=== PATIENT | female | born 1955 | race Two or more races ===

== ENCOUNTER 2020-10-29 11:05 | Outpatient (REF) | payer MEDICARE, SELFPAY ==
[2020-10-29 12:24] LABS: Hematocrit 32.8 % (37-47); Hemoglobin 10.2 g/dl (12.0-16.0); Mean Corpuscular HGB Conc 31.1 g/dl (31.0-35.0); Mean Corpuscular Volume 93.2 fL (80-98); Mean Platelet Volume 11.1 fL (9.4-12.3); Platelet Count 216 X10*3/uL (160-400); Red Blood Count 3.52 X10*6/uL (4.20-5.50); Red Cell Distribution Width 13.8 % (11.0-16.0); White Blood Count 5.8 X10*3/uL (4.8-10.8)
[2020-10-29 12:42] LABS: Anion Gap 13 (12-20); Blood Urea Nitrogen 40 mg/dL (9-16); Calcium 8.5 mg/dL (8.4-10.2); Carbon Dioxide 23 mmol/L (22-29); Chloride 115 mmol/L (96-108); Estimated Glomerular Filt Rate 10; Magnesium 2.3 mg/dL (1.6-2.6); Phosphorus 5.4 mg/dL (2.7-4.5); Potassium 4.7 mmol/L (3.3-5.1); Sodium 146 mmol/L (135-145)
[2020-10-29 13:00] LABS: Vitamin D 25-OH Total 21.2 ng/mL (>30)
[2020-10-29 13:44] LABS: Glucose Urine UA NEG (NEG); Leukocyte Esterase Urine NEG (NEG); Nitrite Urine NEG (NEG); Urine Blood TRACE (NEG); Urine Ketones NEG (NEG); Urine Protein 3+ MG/DL (NEG-TRACE)
[2020-10-29 13:47] LABS: Appearance Urine CLOUDY; Color Urine YELLOW
[2020-10-29 14:19] LABS: Bacteria Urine 2+ /LPF; Hyaline Casts Urine 0-2 /LPF; Squamous Epithelial Cell Urine 4+ /LPF
[2020-10-29 15:11] LABS: Creatinine Urine 90.67 mg/dL; Protein/Creatinine Ratio, Ur 24.02 (<0.2); Total Protein Urine Random 2178 mg/dL (<12)
[2020-10-30 18:21] LABS: Calcium (PTHI) 8.7 mg/dL (8.6-10.4); PTHI 302 pg/mL (14-64)
== END 2020-10-29 11:06 | disposition home or self-care (01) ==
LOC: HO.LAB 11:05
PROVIDERS: PCP Family Medicine; Visit Provider Internal Medicine Nephrology
DX: E11.22 Type 2 diabetes mellitus with diabetic chronic kidney disease (principal); M18.4 Other bilateral secondary osteoarthritis of first carpometacarpal joints
CPT/HCPCS: 36415; 80051; 81001; 82040; 82043; 82306; 82310; 82565; 83735; 83970; 84100; 84156; 84520; 85027; 87086

== ENCOUNTER 2020-12-03 09:44 | Inpatient (IN) | payer MEDICARE, SELFPAY ==
[2020-12-03] VITALS (10 sets, daily range): BP systolic 130–198; BP diastolic 53–79; PULSE 62–72; RESP 15–24; TEMP 36.4–37.2; O2SAT 93–100; BMI 39.0
--- NOTE | ~2020-12-03 | US_ITS ---
EXAMINATION: US VENOUS WITH DOPPLER UPPER EXTREMITY, RIGHT CLINICAL INFORMATION: Ultrasound arterial/venous. Mapping for AV fistula creation COMPARISON: None TECHNIQUE: Ultrasound examination of the greater saphenous veins was performed bilaterally from the saphenofemoral junctions to the ankles. Measurements are given in centimeters. FINDINGS: Ultrasound examination of the right upper extremity superficial veins was performed from the upper arm to the wrist. Measurements are given in centimeters. FINDINGS: Right cephalic: Proximal upper arm: Depth 2 cm, diameter 0.2 cm Mid upper arm: Depth 1.8 cm, diameter 0.3 cm Distal upper arm: Depth 1.2 cm, diameter 0.3 cm Antecubital fossa: Depth 0.8 cm, diameter 0.2 cm Proximal lower arm: Depth 1.2 cm, diameter 0.2 cm Mid lower arm: Depth 0.7 cm, diameter 0.2 cm Wrist: Depth 0.2 cm, diameter 0.1 cm Right basilic: Proximal upper arm: Depth 1.7 cm, diameter 0.6 cm Mid upper arm: Depth 1.8 cm, diameter 0.5 cm Distal upper arm: Depth 1.6 cm, diameter 0.3 cm Left cephalic: Proximal upper arm: Depth 2 cm, diameter 0.2 cm Mid upper arm: Depth 1.1 cm, diameter 0.4 cm Distal upper arm: Depth 0.9 cm, diameter 0.2 cm Antecubital fossa: Depth 0.5 cm, diameter 0.3 cm Proximal lower arm: Depth 0.9 cm, diameter 0.1 cm Mid lower arm: Depth 0.9 cm, diameter 0.1 cm Wrist: Depth 0.3 cm, diameter 0.1 cm Left basilic: Proximal upper arm: Depth 2 cm, diameter 0.5 cm Mid upper arm: Depth 2 cm, diameter 0.4 cm Distal upper arm: Depth 1.6 cm, diameter 0.4 cm The superficial veins compress normally along their entire lengths. The bilateral brachial and radial arteries are normal in caliber without atherosclerotic plaque. These demonstrate normal waveforms and normal peak systolic velocities. The right radial artery measures 0.2 cm and is 1.4 cm From the skin in the proximal forearm, 1.5 cm from the skin and the mid forearm and 0.8 cm from the skin of the wrist. The left radial artery measures 0.2 cm and is 1.5 cm deep from the skin surface of the proximal forearm, 1.3 cm deep at the mid forearm and 1.1 cm deep at the wrist. US/US venous duplex UE BI IMPRESSION: Upper extremity superficial venous mapping, as above.
--- NOTE | ~2020-12-03 | XR_ITS ---
EXAMINATION: XR CHEST CLINICAL INFORMATION: Dyspnea COMPARISON: February 05, 2020 TECHNIQUE: AP portable view of the chest was obtained. FINDINGS: There is stable mild elevation of the left hemidiaphragm. The cardiopericardial silhouette is enlarged. No evidence of pulmonary edema. No pneumothorax or pleural effusion. Status post median sternotomy. XR/XR chest 1V IMPRESSION: No acute disease.
--- NOTE | ~2020-12-03 | US_ITS ---
EXAMINATION: US RETROPERITONEAL LIMITED (RENAL ONLY) CLINICAL INFORMATION: Acute kidney injury. COMPARISON: Bilateral renal ultrasound dated 04/26/2012. TECHNIQUE: Real-time imaging of the kidneys. FINDINGS: RIGHT KIDNEY: 11.2 x 4.5 x 5.1 cm (SAG x AP x TRV). The kidney is normal in size, contour, and echogenicity. Renal cortical thickness is normal. There is a 0.6 cm cyst in the upper pole. There is trace perinephric fluid adjacent to the lower pole. No renal calculi or hydronephrosis. LEFT KIDNEY: 11.8 x 5.2 x 4.9 cm (SAG x AP x TRV). The kidney is normal in size, contour, and echogenicity. Renal cortical thickness is normal. There are 3 cysts in the lower pole, largest measuring 1.2 x 1.4 x 1.2 cm. There is a small 1 mm echogenic density in the lower pole with twinkle artifact questionable for a small stone. No hydronephrosis. US/US renal BI IMPRESSION: Small bilateral renal cysts. Question small left lower pole renal stone.
--- NOTE | 2020-12-03 09:59 | ED.WEAKNESS ---
HPI - Weakness General Chief complaint: General Medical Stated complaint: WEAKNESS Time Seen by Provider: 12/03/20 09:59 Source: patient and old records reviewed Mode of arrival: ambulatory Limitations: no limitations History of Present Illness HPI Narrative: 65 yo female with hx of HTN, HPL, s/p CABG in 2018, DM, asthma, GERD here with chronic chest wall pressure since surgery, notes cough and dyspnea starting around 430AM this morning, chronic chest pressure is no different from her baseline MD Complaint: generalized weakness Onset (ago): hour(s) (6) Duration: constant Location: generalized Migration: none Severity: mild Quality: aching Relieving factors: none Exacerbating factors: none Context: history of similar Associated symptoms: chest pain and shortness of breath Related Data Home Medications Medication Instructions Recorded Confirmed amlodipine 10 mg tablet 10 mg PO DAILY 06/10/20 06/10/20 aspirin 81 mg tablet,delayed 81 mg PO DAILY 06/10/20 06/10/20 release atorvastatin 80 mg tablet 80 mg PO DAILY 06/10/20 06/10/20 carvedilol 6.25 mg tablet 6.25 mg PO BID 06/10/20 06/10/20 ezetimibe 10 mg tablet 10 mg PO DAILY 06/10/20 06/10/20 ferrous sulfate 325 mg (65 mg 325 mg PO DAILY 06/10/20 06/10/20 iron) tablet furosemide 40 mg tablet 40 mg PO BID 06/10/20 06/10/20 hydralazine 10 mg tablet 10 mg PO DAILY tab 06/10/20 06/10/20 insulin glargine 100 unit/mL See Rx Instructions SUBCUT QPM 06/10/20 06/10/20 subcutaneous solution pantoprazole 40 mg tablet,delayed 40 mg PO DAILY 06/10/20 06/10/20 release sertraline 100 mg tablet 150 mg PO DAILY tab 06/10/20 06/10/20 Allergies Allergy/AdvReac Type Severity Reaction Status Date / Time No Known Allergies Allergy Verified 06/10/20 15:35 Review of Systems Review of Systems: Constitutional : No Fever, No Chills ENT/Mouth : No sore throat, No Rhinorrhea, No Swallowing Difficulty Eyes: No Eye Pain, No Swelling, No Redness Cardiovascular : pos Chest Pain, positive SOB, No Orthopnea, positive Edema Respiratory : pos Cough, No Sputum, No Wheezing, positive dyspnea Gastrointestinal : No Nausea, No Vomiting, No Diarrhea, No abdominal Pain, No Hematochezia, No Melena Genitourinary : No Dysuria, No Urinary Frequency, No Hematuria Musculoskeletal : No joint pain, No Myalgias Skin : No Skin Lesions, No rash Neuro : No Weakness, No Numbness, No Dizziness, No Headache Psych : No Anxiety/Panic, No Depression Heme/Lymph: No Bruising, No Lymphadenopathy Endocrine : No Polyuria, No Polydipsia All other systems reviewed and are negative [facility] Past Medical History Attestation statement: The following information was validated with the patient. Medical History Asthma Atherosclerotic cardiovascular disease Chronic kidney disease Depression DJD (degenerative joint disease) Essential hypertension Hypercalcemia SHELIA (obstructive sleep apnea) Other and unspecified hyperlipidemia Type 2 diabetes mellitus with unspecified complications Surgical History History of coronary artery bypass graft (~2018) Family History Family History Father Cardiovascular disease Hypertension Mother Cardiovascular disease Hypertension Social History Social History Alcohol intake: never Smoking Status: Never smoker Use of substances other than those prescribed or required for medical reasons: No Advance Directives: Yes Advance Directives Information Provided: No Advance Directives on File: No Physical Exam Vital Signs: Vital Signs: Last Vital Signs Temp 98.3 F 12/03/20 10:01 Pulse 63 12/03/20 10:19 Resp 20 12/03/20 10:01 BP 167/78 H 12/03/20 10:01 Pulse Ox 100 12/03/20 10:01 Body Mass Index 39.0 Appearance: Alert. Oriented X3. No acute distress. Eyes: Pupils equal, round and reactive to light. ENT: Pharynx normal. Neck: Normal inspection. Neck supple. CVS: Normal heart rate and rhythm. Pulses normal. Chest: ttp along sternum Respiratory: No respiratory distress. Breath sounds decreased throughout Abdomen: Soft and nontender. Skin: Skin warm and dry. Normal skin color. Normal skin turgor. Extremities: mild 1+ pitting edema bilateral LE. No calf ttp Neuro: Oriented X 3. No motor deficit. No sensory deficit. Course Course Course Narrative: ?cardiorenal syndrome has elevated BNP but neg CXR, feels better with neb on lasix 40 BID in last month Cr 4.3 to 5.6 will admit for further management MDM - Weakness MDM Narrative Medical decision making narrative: 65 yo female with hx of HTN, HPL, s/p CABG in 2018, DM, asthma, GERD here with chronic chest wall pressure since surgery, notes cough and dyspnea starting around 430AM this morning, chronic chest pressure is no different from her baseline at this time will need labs, troponin x 1, CXR, COVID swab, seems MSK in nature, neb ordered for asthma dispo per results and findings. Lab Data Result diagrams: 12/03/20 10:26 12/03/20 10:26 Labs: Lab Results 12/03/20 12/03/20 12/03/20 Range/Units 10:23 10:26 10:26 WBC 5.5 (4.8-10.8) X10*3/uL Hgb 11.0 L (12.0-16.0) g/dl Hct 34.4 L (37-47) % Plt Count 199 (160-400) X10*3/uL PT (10.8-13.0) SEC INR (0.9-1.1) APTT (24.1-38.0) SEC Hold Blue Top Sodium 143 (135-145) mmol/L Potassium 4.9 (3.3-5.1) mmol/L Chloride 112 H (96-108) mmol/L Carbon Dioxide 20 L (22-29) mmol/L Anion Gap 16 (12-20) BUN 57 H (9-16) mg/dL Creatinine 5.60 H* (0.5-1.4) mg/dL Estim Creat Clear Calc 9.8 Estimated GFR 8 Random Glucose 150 H (60-115) mg/dL Calcium 9.0 (8.4-10.2) mg/dL Magnesium 2.3 (1.6-2.6) mg/dL Total Bilirubin 0.4 (0.0-1.0) mg/dL Direct Bilirubin < 0.2 (0.0-0.5) mg/dL AST 16 (5-31) U/L ALT 13 (0-31) U/L Alkaline Phosphatase 78 (39-117) U/L Troponin I High Sens (<3.5-17.0) ng/L B-Natriuretic Peptide (<100) pg/mL Total Protein 5.8 L (6.5-8.0) g/dL Albumin 3.3 L (3.5-5.0) g/dL Lipase 82 H (8-78) U/L COVID-19 ([facility]) Negative (Negative) COVID-19 Clin Com See Note 12/03/20 12/03/20 Range/Units 10:27 10:27 WBC (4.8-10.8) X10*3/uL Hgb (12.0-16.0) g/dl Hct (37-47) % Plt Count (160-400) X10*3/uL PT 12.3 (10.8-13.0) SEC INR 1.0 (0.9-1.1) APTT 37.5 (24.1-38.0) SEC Hold Blue Top SEE NOTE Sodium (135-145) mmol/L Potassium (3.3-5.1) mmol/L Chloride (96-108) mmol/L Carbon Dioxide (22-29) mmol/L Anion Gap (12-20) BUN (9-16) mg/dL Creatinine (0.5-1.4) mg/dL Estim Creat Clear Calc Estimated GFR Random Glucose (60-115) mg/dL Calcium (8.4-10.2) mg/dL Magnesium (1.6-2.6) mg/dL Total Bilirubin (0.0-1.0) mg/dL Direct Bilirubin (0.0-0.5) mg/dL AST (5-31) U/L ALT (0-31) U/L Alkaline Phosphatase (39-117) U/L Troponin I High Sens 9.0 (<3.5-17.0) ng/L B-Natriuretic Peptide 387 H (<100) pg/mL Total Protein (6.5-8.0) g/dL Albumin (3.5-5.0) g/dL Lipase (8-78) U/L COVID-19 ([facility]) (Negative) COVID-19 Clin Com ECG Data Attestation: I personally reviewed and interpreted this ECG as follows: ECG interpretation date: 05/06/21 ECG interpretation time: 10:30 Interpretation: Rate: 64 Rhythm: NSR [place]: normal Normal P waves. Normal GWEN. Normal QRS interval Poor R wave progression ST T wave : nonspecific, no JOSE LUIS qTC: normal prior studies: no acute ischemia The study has been interpreted contemporaneously by me. . Discharge Plan Discharge Clinical Impression: Acute bronchospasm, Acute on chronic kidney failure, Acute chest wall pain Patient Disposition: Admitted As Inpatient Prescriptions: No Action aspirin 81 mg tablet,delayed release (DR/EC) 81 mg PO DAILY RF: 0 carvedilol 6.25 mg tablet 6.25 mg PO BID RF: 0 amlodipine 10 mg tablet 10 mg PO DAILY RF: 0 atorvastatin 80 mg tablet 80 mg PO DAILY RF: 0 ezetimibe 10 mg tablet 10 mg PO DAILY RF: 0 furosemide 40 mg tablet 40 mg PO BID RF: 0 hydralazine 10 mg tablet 10 mg PO DAILY RF: 0 ferrous sulfate 325 mg (65 mg iron) tablet 325 mg PO DAILY RF: 0 pantoprazole 40 mg tablet,delayed release (DR/EC) 40 mg PO DAILY RF: 0 Lantus U-100 Insulin 100 unit/mL solution See Rx Instructions subcut QPM RF: 0 sertraline 100 mg tablet 150 mg PO DAILY RF: 0
--- NOTE | 2020-12-03 10:05 | ECG_ITS ---
Test Reason : SOB Blood Pressure : / mmHG Vent. Rate : 064 BPM Atrial Rate : 064 BPM P-R Int : 156 ms QRS Dur : 088 ms QT Int : 454 ms P-R-T Axes : 055 049 042 degrees QTc Int : 468 ms Normal sinus rhythm Septal infarct (cited on or before 28-NOV-2017) Abnormal ECG When compared with ECG of 24-JAN-2020 15:43, No significant change was found Referred By: Taylor Choi Electronically Signed By:JOSH STEWART
[2020-12-03] MEDS: Albuterol Sulfate (0.083%) 2.5 MG/3 ML VIAL.NEB INHALE (10:18)
[2020-12-03 10:34] LABS: Basophils Percent Auto 0.2 % (0-2); Eosinophils Percent Auto 0.2 % (0-4); Hematocrit 34.4 % (37-47); Imm Gran Abs Auto 0.02 X10*3/uL (0.00-0.03); Imm Gran Pct Auto 0.4 % (0.0-0.4); Lymphocytes Absolute Auto 0.6 X10*3/uL (1.2-4.9); Lymphocytes Percent Auto 11.6 % (20-40); MANUAL DIFF FLAG SCAN; Mean Corpuscular Hemoglobin 29.3 pg (27.0-33.0); Mean Corpuscular Volume 91.5 fL (80-98); Mean Platelet Volume 10.4 fL (9.4-12.3); Monocytes Absolute Auto 0.2 X10*3/uL (0.1-1.2); Monocytes Percent Auto 2.9 % (2-11); Neutrophils Absolute Auto 4.7 X10*3/uL (2.0-8.3); Neutrophils Percent Auto 84.7 % (45-73); Platelet Count 199 X10*3/uL (160-400); Red Blood Count 3.76 X10*6/uL (4.20-5.50); Red Cell Distribution Width 13.5 % (11.0-16.0); SCAN SMEAR FLAG 1; White Blood Count 5.5 X10*3/uL (4.8-10.8)
[2020-12-03 10:39] LABS: Prothrombin Time 12.3 SEC (10.8-13.0)
[2020-12-03 10:42] LABS: Partial Thromboplastin Time 37.5 SEC (24.1-38.0)
[2020-12-03 10:55] LABS: COVID-19 Test Negative (Negative); IDNOW Serial# 08D9AD1C
[2020-12-03] MEDS: Acetaminophen 325 MG TABLET 650 MG PO (10:55)
[2020-12-03 11:05] LABS: B Type Natriuretic Peptide 387 pg/mL (<100)
[2020-12-03 11:05] LABS: Alanine Aminotransferase 13 U/L (0-31); Albumin Level 3.3 g/dL (3.5-5.0); Alkaline Phosphatase 78 U/L (39-117); Anion Gap 16 (12-20); Aspartate Amino Transferase 16 U/L (5-31); Bilirubin Direct < 0.2 mg/dL (0.0-0.5); Bilirubin Total 0.4 mg/dL (0.0-1.0); Blood Urea Nitrogen 57 mg/dL (9-16); Carbon Dioxide 20 mmol/L (22-29); Chloride 112 mmol/L (96-108); Creatinine Clr Calc Pharmacy 9.8; Estimated Glomerular Filt Rate 8; Glucose Random 150 mg/dL (60-115); Magnesium 2.3 mg/dL (1.6-2.6); Potassium 4.9 mmol/L (3.3-5.1); Sodium 143 mmol/L (135-145); Total Protein 5.8 g/dL (6.5-8.0)
[2020-12-03 11:14] LABS: Lipase 82 U/L (8-78)
[2020-12-03 11:53] LABS: SLIDE REVIEW VERIFIED
--- NOTE | 2020-12-03 11:56 | PC.NURSE ---
maria antonia greco present with release manager. first encounter for this rn pt is resting comfortably. plus 3 pitting edema up to knees. ls clear but dim throughout. states she's had 3 years of cp and cough since cardiac surgery. nsr on monitor.
--- NOTE | 2020-12-03 14:32 | HP_ITS ---
DATE OF SERVICE: 12/03/2020 CHIEF COMPLAINT: Generalized weakness. HISTORY OF PRESENT ILLNESS: This is a 65-year-old female patient with past medical history significant for coronary artery disease, status post CABG in 2018. Post procedure, the patient has chronic left anterior chest pain, history of diabetes mellitus, asthma, GERD, and advanced chronic kidney disease, presented to [facility] due to symptoms of cough and shortness of breath that started at 4 a.m. The patient said she was shivering, sweating, and mumbling. Son could not understand what she is saying, therefore brought her to [facility]. She also gives history of generalized weakness, chronic leg edema that fluctuates. She denies any associated shortness of breath. She denies PND, no orthopnea, but she noticed that she gets tired easily with activity. She has been compliant on all of her medications. She was scheduled to see her senior architectural designer today, but she is not aware of the name. In the emergency room, the patient's workup revealed a BNP of 387, that is increased from 248. Her creatinine bumped from 4.3 to 5.6 in 1 month. Her hematocrit remains stable. Troponin of flat. Chest x-ray showed no acute infiltrate. The patient was treated in the ER with albuterol inhaler. At present, she is resting comfortably, offers no other complaints than her chronic chest pressure. PAST MEDICAL HISTORY: Significant for: 1. History of asthma. 2. History of atherosclerotic cardiovascular disease, status post CABG in 2018 after an episode of [id number]. 3. History of advanced chronic kidney disease. 4. History of depression. 5. History of DJD. 6. History of essential hypertension. 7. History of hypercalcemia. 8. History of obstructive sleep apnea. 9. Hyperlipidemia. 10. Type 2 diabetes mellitus. PAST SURGICAL HISTORY: Status post coronary artery bypass graft. SOCIAL HISTORY: The patient lives with son. Denies history of smoking, alcohol abuse, or illicit drug use. She ambulates with the help of a walker or a cane. FAMILY HISTORY: Father is , had hypertension and cardiovascular disease. Mother also had hypertension and cardiovascular disease. REVIEW OF SYSTEMS: CONSTITUTIONAL: She denies any fever. Episode of shivering and sweating resolved. CVS: She has chronic chest pain. Denies palpitations. RESPIRATORY: She has chronic cough for 3 years, nonproductive. Denies shortness of breath. GI: She denies nausea, vomiting, or diarrhea. NEURO: She complains of chronic dizziness not new. No other weakness, numbness, or speech impairment. Rest of all other system are reviewed and negative. ALLERGIES: THE PATIENT HAS NO KNOWN DRUG ALLERGIES. MEDICATIONS: On admission, amlodipine 10 mg daily, aspirin 81 mg daily, Lipitor 80 mg daily, Coreg 6.25 b.i.d., ezetimibe 10 mg daily, ferrous sulfate 325 daily, Lasix 40 mg b.i.d., hydralazine 10 mg daily, Lantus insulin, dosage not known; Protonix 40 mg daily, and Zoloft 150 mg daily. Her med reconciliation needs to be done. PHYSICAL EXAMINATION: GENERAL: The patient is resting comfortably, does not appear to be in acute distress. VITAL SIGNS: BP 162/67, respiratory rate of 24, she is afebrile, room air finger oximetry 98% on room air. HEENT: Pupils equal, round, and reactive to light and accommodation. NECK: Supple. No JVD. Face is symmetrical. Mild puffiness. LUNGS: Clear to auscultation bilaterally. No respiratory distress. No wheeze or rhonchi. HEART: Regular rate and rhythm. Midline scar with tenderness to palpation. ABDOMEN: Obese, soft, and nontender. Bowel sounds are audible. EXTREMITIES: Bilateral pitting edema up to both knees. NEURO EXAMINATION: Nonfocal. PSYCH: Appropriate affect. SKIN: No rashes. No asterixis noted. LABORATORY DATA: Hemoglobin 11, hematocrit 34.4, is stable since last check. Sodium 143, potassium 4.9, bicarb of 20, creatinine of 5.6, worsened from 4.3, November 18. Blood sugar 150. BNP 387; last year in December 2019, BNP was 248. Chest x-ray with no acute abnormality. EKG showed normal sinus rhythm, no significant change from recent EKG. ASSESSMENT AND PLAN: This is a 65-year-old female patient with advanced kidney disease, presented to [facility] with symptoms of shivering, sweating, mumbling since 4 a.m. with chronic history of chest pain and cough of 3 years duration. The patient's workup in the emergency room revealed worsening kidney disease and elevated BNP. PROBLEM LIST: 1. Progression of advanced chronic kidney disease. The patient will be admitted to intermediate care unit. There is no evidence of uremia. No hyperkalemia or acidosis. We will obtain nephrology consultation. Case discussed with Dr. James, who was supposed to see the patient in his office. He is planning on mapping the right upper extremity for a fistula. There is no evidence of acute congestive heart failure, elevated BNP likely due to kidney disease. 2. Hypertension. We will continue home medications including amlodipine and hydralazine. Follow BP closely. 3. Episode of shivering, sweating, and generalized weakness. There is no evidence of acute infection. The patient is afebrile with a normal WBC count. Urinalysis showed 2+ bacteria with few white cells with no nitrites, less likely acute urinary tract infection, likely symptoms related to worsening renal function. There is no evidence of asthma exacerbation. 4. Diabetes mellitus. The patient will be placed on diabetic diet, insulin sliding scale, and will resume home medications. 5. History of coronary artery disease, status post coronary artery bypass graft. The patient has no new or different chest pain than her baseline. Troponins are unremarkable. EKG with no acute ischemia, we will continue home medication. 6. Deep venous thrombosis prophylaxis. We will place the patient on heparin. 7. History of depression. will be continued on Zoloft. MD ANA M Alvarado/DEBBIE / [id number] MTDD
--- NOTE | 2020-12-03 14:32 | PC.NURSE ---
no change in assesment. resting queitly. nst on monitor. awaits admission. po fluids provided
[2020-12-03] MEDS: Heparin Sodium,Porcine 5,000 UNIT/ML VIAL 5000 UNIT SUBCUT ×2 (16:24→23:50)
[2020-12-03] MEDS: amLODIPine Besylate 10 MG TABLET PO (16:24)
[2020-12-03] MEDS: 0.9 % Sodium Chloride Flush 3 ML SYRINGE IVFLUSH ×2 (16:25→23:47)
--- NOTE | 2020-12-03 16:42 | PC.NURSE ---
rn to rn with sopia on IMC.
[2020-12-03 18:55] LABS: Glucose, Whole Blood 155 mg/dL (60-115)
--- NOTE | 2020-12-03 19:02 | PM.CNNEP ---
History of Present Illness Reason for Consult Consult date: 12/03/20 Reason for consult: WALLY Chief Complaint Chief complaint: Acute on CKD History of Present Illness Narrative: Asked to see PT fro WALLY on CKD with SCr rapidly worsening over the past 2 months from bsl SCr mid 2's to 4.3 last jg and now 5.6. She presents to ER felling acutely unwell with gen malaise and chills and ? confusion. Overall she is feeling better now. She denies taking NSAIDs. No GH/dysuria. No CP/SOB. No N/V/Diarrhea. Review of Systems Review of Systems Constitutional : No Fever, No Chills ENT/Mouth : No sore throat, No Rhinorrhea, No Swallowing Difficulty Eyes: No Eye Pain, No Swelling, No Redness Cardiovascular : pos Chest Pain, positive SOB, No Orthopnea, positive Edema Respiratory : pos Cough, No Sputum, No Wheezing, positive dyspnea Gastrointestinal : No Nausea, No Vomiting, No Diarrhea, No abdominal Pain, No Hematochezia, No Melena Genitourinary : No Dysuria, No Urinary Frequency, No Hematuria Musculoskeletal : No joint pain, No Myalgias Skin : No Skin Lesions, No rash Neuro : No Weakness, No Numbness, No Dizziness, No Headache Psych : No Anxiety/Panic, No Depression Heme/Lymph: No Bruising, No Lymphadenopathy Endocrine : No Polyuria, No Polydipsia All other systems reviewed and are negative [facility] Past Medical History Medical History (Updated 12/04/20 @ 01:08 by Yared Powell MD) Asthma Atherosclerotic cardiovascular disease Chronic kidney disease Depression DJD (degenerative joint disease) Essential hypertension Hypercalcemia SHELIA (obstructive sleep apnea) Other and unspecified hyperlipidemia Type 2 diabetes mellitus with unspecified complications Family History Family History Father Cardiovascular disease Hypertension Mother Cardiovascular disease Hypertension Surgical History Surgical History History of coronary artery bypass graft (~2018) Social History Social History Household Members Other:: with son Housing: Apartment Do you presently have visiting nurse or other home services: Yes Alcohol intake: never Smoking Status: Never smoker Use of substances other than those prescribed or required for medical reasons: No Currently Displaying Signs/Symptoms of Drug Intoxication Withdrawal: No Have you been hit, kicked, punched, or otherwise hurt by someone within the past year? If so, by whom?: No Do you feel safe in your current relationship?: No Current Relationship Is there a partner from a previous relationship who is making you feel unsafe now?: No Are you made to feel afraid or neglected: No Advance Directives: Yes Advance Directives Information Provided: No Advance Directives on File: No Advance Directives Date on File: 12/03/20 Do you have thoughts of harming others: None Do you have a plan to hurt others: No Plan Recently lost weight without trying: No Eating poorly because of decreased appetite: No Nutrition Risks: No Nutritional Risk Patient : No : No Poor oral hygiene: No Meds Allergies Allergy/AdvReac Type Severity Reaction Status Date / Time No Known Allergies Allergy Verified 12/03/20 17:02 Active Medications: Current Medications Generic Name Dose Route Start Last Admin Trade Name Freq PRN Reason Stop Dose Admin Acetaminophen 650 mg 12/03/20 12:17 Acetaminophen 325 Mg Tablet PO Q6H PRN Pain, Mild (Pain Scale 1-3) Amlodipine Besylate 10 mg 12/04/20 09:00 Amlodipine Besylate 10 Mg Tablet PO DAILY [facility] Protocol Ascorbic Acid 500 mg 12/03/20 21:00 12/03/20 21:42 Ascorbic Acid 500 Mg Tablet PO 500 mg BID ROSANA Administration Aspirin 81 mg 12/04/20 09:00 Aspirin Enteric Coated 81 Mg Tablet.Dr PO DAILY [facility] Calcitriol 0.25 mcg 12/04/20 09:00 Calcitriol 0.25 Mcg Capsule PO Q48H [facility] Carvedilol 6.25 mg 12/03/20 21:00 12/03/20 21:41 Carvedilol 6.25 Mg Tablet PO 6.25 mg BID [facility] Administration Protocol Heparin Sodium (Porcine) 5,000 unit 12/03/20 13:30 12/03/20 23:50 Heparin Sodium,Porcine 5,000 Unit/Ml Vial SUBCUT 5,000 unit Q12H ROSANA Administration Hydralazine HCl 10 mg 12/03/20 21:00 12/03/20 21:41 Hydralazine Hcl 10 Mg Tablet PO 10 mg BID ROSANA Administration Protocol Insulin Human Lispro 0 unit 12/03/20 16:30 12/03/20 21:42 Insulin Lispro 100 Unit/Ml 3 Ml Vial SUBCUT 4 unit QIDACHS [facility] Administration Protocol Melatonin 3 mg 12/03/20 21:00 12/03/20 21:41 Melatonin 3 Mg Tablet PO 3 mg BEDTIME [facility] Administration Montelukast Sodium 10 mg 12/03/20 21:00 12/03/20 21:42 Montelukast Sodium 10 Mg Tablet PO 10 mg BEDTIME [facility] Administration Omeprazole 40 mg 12/04/20 06:30 Omeprazole 40 Mg Capsule.Dr PO DAILY@0630 [facility] Ondansetron HCl 4 mg 12/03/20 12:17 Ondansetron Hcl 4 Mg/2 Ml Vial IVPUSH Q8H PRN Nausea and Vomiting Pharmacy Consult 1 each 12/03/20 11:16 Consult Rx Perform Med Rec MISCELLANE ONCE PRN Consult order Sertraline HCl 150 mg 12/04/20 09:00 Sertraline Hcl 50 Mg Tablet PO DAILY [facility] Sodium Chloride 3 ml 12/03/20 16:00 12/03/20 23:47 0.9 % Sodium Chloride Flush 3 Ml Syringe IVFLUSH 3 ml QSHIFT [facility] Administration Home Medications Medication Instructions Recorded Confirmed Last Taken Type amlodipine 10 mg tablet 10 mg PO DAILY 06/10/20 12/03/20 Unknown History aspirin 81 mg tablet,delayed 81 mg PO DAILY 06/10/20 12/03/20 Unknown History release atorvastatin 80 mg tablet 80 mg PO DAILY 06/10/20 12/03/20 Unknown History carvedilol 6.25 mg tablet 6.25 mg PO BID 06/10/20 12/03/20 Unknown History ferrous sulfate 325 mg (65 mg 325 mg PO BIDWM 06/10/20 12/03/20 Unknown History iron) tablet furosemide 40 mg tablet 80 mg PO BID 06/10/20 12/03/20 Unknown History hydralazine 10 mg tablet 10 mg PO BID tab 06/10/20 12/03/20 Unknown History insulin glargine 100 unit/mL See Rx Instructions SUBCUT QPM 06/10/20 12/03/20 Unknown History subcutaneous solution pantoprazole 40 mg tablet,delayed 40 mg PO DAILY 06/10/20 12/03/20 Unknown History release sertraline 100 mg tablet 150 mg PO DAILY tab 06/10/20 12/03/20 Unknown History ascorbic acid (vitamin C) [Vitamin 1 tab PO BID 12/03/20 12/03/20 Unknown History C] calcitriol 1 cap PO Q OTHER DAY 12/03/20 12/03/20 Unknown History melatonin 1 tab PO BEDTIME 12/03/20 12/03/20 Unknown History montelukast 1 tab PO BEDTIME 12/03/20 12/03/20 Unknown History Physical Exam Vital Signs: Last Vital Signs Temp 98 F 12/03/20 23:59 Pulse 62 12/03/20 23:59 Resp 15 12/03/20 23:59 BP 130/63 12/03/20 23:59 Pulse Ox 93 12/03/20 23:59 Body Mass Index 39.0 Results Lab Results Result Diagrams: 12/03/20 10:26 12/03/20 10:26 Lab results: Chemistry 12/03/20 10:26 Sodium 143 Potassium 4.9 Carbon Dioxide 20 L BUN 57 H Creatinine 5.60 H* Calcium 9.0 Hematology 12/03/20 10:26 WBC 5.5 Hgb 11.0 L Plt Count 199 Assessment and Plan (1) WALLY (acute kidney injury): Status: Acute 1. WALLY: incr SCr over the past 2 moinths is very concerning and needs full evaluation with sero/urine studies and renal U/S; her history and presentation do not suggests a s[ecific cause hence the need for furhter testing as the DDx incluide pre-renal intr-renal: AGN, AIN---note that back in October her UAC was markedly incr at 14 gm which raises concern for a new glom unjury superimposed on her mosy likel underlying DN ( bsl SCr 2's and 3 gms UAC in past) AIN vs prog DN/HTN renal dis as cause of prog loss of renal func 2. CKD 4: bsl SCr 2's with heavy Uprot most c/w DN REC: sero and urine studies and renal U/S; may need kidney Bx; protect non-dominat arm for fuyture AVF will follow sheri with team
[2020-12-03 21:12] LABS: Glucose, Whole Blood 247 mg/dL (60-115)
[2020-12-03] MEDS: hydrALAZINE HCl 10 MG TABLET PO (21:41)
[2020-12-03] MEDS: carvediloL 6.25 MG TABLET PO (21:41)
[2020-12-03] MEDS: Melatonin 3 MG TABLET PO (21:41)
[2020-12-03] MEDS: Insulin Lispro 100 UNIT/ML 3 ML VIAL SUBCUT (21:42)
[2020-12-03] MEDS: Montelukast Sodium 10 MG TABLET PO (21:42)
[2020-12-03] MEDS: Ascorbic Acid 500 MG TABLET PO (21:42)
[2020-12-04 04:00] VITALS: BP 120/66; PULSE 67; RESP 18; TEMP 37.1; O2SAT 96
[2020-12-04] MEDS: Omeprazole 40 MG CAPSULE.DR PO (06:02)
[2020-12-04 06:29] LABS: Anion Gap 15 (12-20); Blood Urea Nitrogen 56 mg/dL (9-16); Calcium 8.8 mg/dL (8.4-10.2); Carbon Dioxide 21 mmol/L (22-29); Chloride 112 mmol/L (96-108); Glucose Random 76 mg/dL (60-115); Potassium 4.6 mmol/L (3.3-5.1); Sodium 143 mmol/L (135-145)
[2020-12-04 06:42] LABS: Creatinine Clr Calc Pharmacy 9.8; Estimated Glomerular Filt Rate 8
[2020-12-04 06:46] LABS: HBS Num1 1.43 mIU/mL (0-7.99); HBc Num1 0.04 S/CO (0.00-0.79); HBsAGNum1 0.17 S/CO (0.00-0.99); Hepatitis B Core Antibody Nonreactive (Nonreactive); Hepatitis B Surface Antigen Negative (Negative); ~Hepatitis B Surface Antibody NONREACTIVE (Nonreactive)
[2020-12-04 06:47] LABS: ~HepC Num1 0.09 S/CO (0.00-0.79); ~Hepatitis C Antibody Nonreactive (Nonreactive)
[2020-12-04 06:49] LABS: Glucose Urine UA 100 MG/DL (NEG); Leukocyte Esterase Urine NEG (NEG); Nitrite Urine NEG (NEG); Urine Blood 1+ (NEG); Urine Ketones NEG (NEG); Urine Protein 3+ MG/DL (NEG-TRACE)
[2020-12-04 06:50] LABS: Appearance Urine CLEAR; Color Urine YELLOW
[2020-12-04 06:57] LABS: Squamous Epithelial Cell Urine TRACE /LPF
[2020-12-04 06:58] LABS: Waxy Casts Urine 0-2 /LPF
[2020-12-04 07:06] VITALS: BP 156/69; PULSE 59; RESP 18; TEMP 36.1; O2SAT 99
[2020-12-04 07:06] LABS: Glucose, Whole Blood 73 mg/dL (60-115)
[2020-12-04 07:28] LABS: Creatinine Urine 84.66 mg/dL
[2020-12-04 07:39] LABS: Total Protein Urine Random 1180 mg/dL (<12)
[2020-12-04] MEDS: Ascorbic Acid 500 MG TABLET PO (09:12)
[2020-12-04] MEDS: carvediloL 6.25 MG TABLET PO (09:12)
[2020-12-04] MEDS: hydrALAZINE HCl 10 MG TABLET PO (09:12)
[2020-12-04] MEDS: 0.9 % Sodium Chloride Flush 3 ML SYRINGE IVFLUSH (09:12)
[2020-12-04] MEDS: amLODIPine Besylate 10 MG TABLET PO (09:12)
[2020-12-04] MEDS: Sertraline HCL 50 MG TABLET 150 MG PO (09:12)
[2020-12-04] MEDS: calcitrioL 0.25 MCG CAPSULE PO (09:12)
--- NOTE | 2020-12-04 09:12 | MHC.CM.PN ---
CM met with Patient and addressed IMM with her, proving her with the original in [place]ic and placing a copy on the chart. CM also spoke with Daughter/HCP/Alice @ [phone], with Patient's approval to do so. Patient lives alone in her house and uses a walker to assist with mobility. Patient receives [facility] 2 hours/day and RN visits. Patient's goal is to return home and resume these services and CM has initiated and will follow for dc planning. PCP is Dr. Patricia Ingram.
--- NOTE | 2020-12-04 09:39 | P.CONGS_ITS ---
History of Present Illness Consult details Consult date: 12/04/20 Reason for consult: other (CRI) Narrative: Complex 65-year-old female presented to the hospital with acute kidney injury. Of note she has had chronic renal insufficiency and was actually scheduled to see me in the office yesterday for long-term dialysis access paper placement. She was admitted to the hospital. She now presents to us for vascular evaluation. Of note she does appear to be stable at the current time and upon discussion with Nephrology she will not require acute dialysis. In ad dition is noted that she is right-hand dominant. She has had no prior history of line placements AICD or defribrolators. Review of Systems Review of Systems: Yes all other systems are reviewed and are negative Constitutional: Constitutional: Reports no additional constitutional complaints ENT: Reports Normal hearing present Cardiovascular: Cardiovascular: Denies chest pain, Denies chest pain at rest, Denies chest pain with activity and Denies pedal edema Respiratory: Respiratory: Denies cough Gastrointestinal: Gastrointestinal: Denies abdominal pain Musculoskeletal: Musculoskeletal: Denies abnormal gait, Denies muscle cramps and Denies radiating pain into limb Integumentary/Breasts: Skin/Breast: Denies skin ulcer and Denies wounds Neurologic: Reports Normal hearing present and Denies abnormal gait Psychiatric: Psychiatric: Reports no additional psychiatric complaints [facility] Past Medical History Medical History (Updated 12/04/20 @ 09:46 by Denis James MD) Asthma Atherosclerotic cardiovascular disease Chronic kidney disease Depression DJD (degenerative joint disease) Essential hypertension Hypercalcemia SHELIA (obstructive sleep apnea) Other and unspecified hyperlipidemia Type 2 diabetes mellitus with unspecified complications Family History Family History Father Cardiovascular disease Hypertension Mother Cardiovascular disease Hypertension Surgical History Surgical History History of coronary artery bypass graft (~2018) Social History Social History Household Members Other:: with son Housing: Apartment Do you presently have visiting nurse or other home services: Yes Alcohol intake: never Smoking Status: Never smoker Use of substances other than those prescribed or required for medical reasons: No Currently Displaying Signs/Symptoms of Drug Intoxication Withdrawal: No Have you been hit, kicked, punched, or otherwise hurt by someone within the past year? If so, by whom?: No Do you feel safe in your current relationship?: No Current Relationship Is there a partner from a previous relationship who is making you feel unsafe now?: No Are you made to feel afraid or neglected: No Advance Directives: Yes Advance Directives Information Provided: No Advance Directives on File: No Advance Directives Date on File: 12/03/20 Do you have thoughts of harming others: None Do you have a plan to hurt others: No Plan Recently lost weight without trying: No Eating poorly because of decreased appetite: No Nutrition Risks: No Nutritional Risk Patient : No : No Poor oral hygiene: No service: No 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al status: disabled [employer] Allergies Allergy/AdvReac Type Severity Reaction Status Date / Time No Known Allergies Allergy Verified 12/03/20 17:02 Active Medications: Current Medications Generic Name Dose Route Start Last Admin Trade Name Freq PRN Reason Stop Dose Admin Acetaminophen 650 mg 12/03/20 12:17 Acetaminophen 325 Mg Tablet PO Q6H PRN Pain, Mild (Pain Scale 1-3) Amlodipine Besylate 10 mg 12/04/20 09:00 12/04/20 09:12 Amlodipine Besylate 10 Mg Tablet PO 10 mg DAILY ROSANA Administration Protocol Ascorbic Acid 500 mg 12/03/20 21:00 12/04/20 09:12 Ascorbic Acid 500 Mg Tablet PO 500 mg BID ROSANA Administration Calcitriol 0.25 mcg 12/04/20 09:00 12/04/20 09:12 Calcitriol 0.25 Mcg Capsule PO 0.25 mcg Q48H ROSANA Administration Carvedilol 6.25 mg 12/03/20 21:00 12/04/20 09:12 Carvedilol 6.25 Mg Tablet PO 6.25 mg BID ROSANA Administration Protocol Heparin Sodium (Porcine) 5,000 unit 12/03/20 13:30 12/03/20 23:50 Heparin Sodium,Porcine 5,000 Unit/Ml Vial SUBCUT 5,000 unit Q12H ROSANA Administration Hydralazine HCl 10 mg 12/03/20 21:00 12/04/20 09:12 Hydralazine Hcl 10 Mg Tablet PO 10 mg BID ROSANA Administration Protocol Insulin Human Lispro 0 unit 12/03/20 16:30 12/04/20 07:28 Insulin Lispro 100 Unit/Ml 3 Ml Vial SUBCUT [facility] Protocol Melatonin 3 mg 12/03/20 21:00 12/03/20 21:41 Melatonin 3 Mg Tablet PO 3 mg BEDTIME ROSANA Administration Montelukast Sodium 10 mg 12/03/20 21:00 12/03/20 21:42 Montelukast Sodium 10 Mg Tablet PO 10 mg BEDTIME ROASNA Administration Omeprazole 40 mg 12/04/20 06:30 12/04/20 06:02 Omeprazole 40 Mg Capsule.Dr PO 40 mg DAILY@0630 ROSANA Administration Ondansetron HCl 4 mg 12/03/20 12:17 Ondansetron Hcl 4 Mg/2 Ml Vial IVPUSH Q8H PRN Nausea and Vomiting Pharmacy Consult 1 each 12/03/20 11:16 Consult Rx Perform Med Rec MISCELLANE ONCE PRN Consult order Sertraline HCl 150 mg 12/04/20 09:00 12/04/20 09:12 Sertraline Hcl 50 Mg Tablet PO 150 mg DAILY ROSANA Administration Sodium Chloride 3 ml 12/03/20 16:00 12/04/20 09:12 0.9 % Sodium Chloride Flush 3 Ml Syringe IVFLUSH 3 ml QSHIFT ON LICENSE OF [facility] Administration Home Medications Medication Instructions Recorded Confirmed Last Taken Type amlodipine 10 mg tablet 10 mg PO DAILY 06/10/20 12/03/20 Unknown History aspirin 81 mg tablet,delayed 81 mg PO DAILY 06/10/20 12/03/20 Unknown History release atorvastatin 80 mg tablet 80 mg PO DAILY 06/10/20 12/03/20 Unknown History carvedilol 6.25 mg tablet 6.25 mg PO BID 06/10/20 12/03/20 Unknown History ferrous sulfate 325 mg (65 mg 325 mg PO BIDWM 06/10/20 12/03/20 Unknown History iron) tablet furosemide 40 mg tablet 80 mg PO BID 06/10/20 12/03/20 Unknown History hydralazine 10 mg tablet 10 mg PO BID tab 06/10/20 12/03/20 Unknown History insulin glargine 100 unit/mL See Rx Instructions SUBCUT QPM 06/10/20 12/03/20 Unknown History subcutaneous solution pantoprazole 40 mg tablet,delayed 40 mg PO DAILY 06/10/20 12/03/20 Unknown History release sertraline 100 mg tablet 150 mg PO DAILY tab 06/10/20 12/03/20 Unknown History ascorbic acid (vitamin C) [Vitamin 1 tab PO BID 12/03/20 12/03/20 Unknown Histor y C] calcitriol 1 cap PO Q OTHER DAY 12/03/20 12/03/20 Unknown History melatonin 1 tab PO BEDTIME 12/03/20 12/03/20 Unknown History montelukast 1 tab PO BEDTIME 12/03/20 12/03/20 Unknown History Physical Exam Vital Signs: Vital Signs: Last Vital Signs Temp 97 F 12/04/20 07:06 Pulse 59 12/04/20 07:06 Resp 18 12/04/20 07:06 BP 156/69 H 12/04/20 07:06 Pulse Ox 99 12/04/20 07:06 Body Mass Index 39.0 Const: General: cooperative, healthy appearing and comfortable Chema entation/consciousness: oriented to person, oriented to place and oriented to time HENMT: Head: Yes normal to inspection Neck: Neck: Yes normal visual inspection Carotids: no bruits Chest: Chest palpation & inspection: normal inspection of the chest Resp: Effort & Inspection: normal respiratory effort and able to speak in complete sentences Auscultation: clear to auscultation bilaterally, no crackles, no rales, no rhonchi and no wheezes Cardio: Rate: regular rate Rhythm: regular rhythm Heart sounds: S1 normal heart sound present and S2 normal heart sound present Bruits: no carotid bruits Peripheral pulses: brachial pulses present, radial pulses present, ulnar radial pulses present and other (IV in left antecubital fossa) GI: Inspection: Yes normal to inspection Skin: Wounds: no wounds Hair: normal Neuro: General: oriented to person, oriented to place and oriented to time Cranial nerves: Yes CN's II-XII intact bilaterally and Yes Normal hearing present Cognition (Neuro): normal cognition Motor exam (neuro): 5/5 motor strength present throughout Extrem: Other: venous exam: No significant superficial varicosities or spider telangiectasias, minimal edema General: No clubbing, No cyanosis and No edema Psych: Appearance: grossly normal Mental Status: mental status grossly normal Speech and movement: Normal speech and movement present Results Labs Result diagrams: 12/03/20 10:26 12/04/20 05:26 Labs: Abnormal lab results 12/03/20 12/03/20 12/03/20 Range/Units 10:26 10:26 10:27 RBC 3.76 L (4.20-5.50) X10*6/uL Hgb 11.0 L (12.0-16.0) g/dl Hct 34.4 L (37-47) % Neut % (Auto) 84.7 H (45-73) % Lymph % (Auto) 11.6 L (20-40) % Lymph # (Auto) 0.6 L (1.2-4.9) X10*3/uL Chloride 112 H (96-108) mmol/L Carbon Dioxide 20 L (22-29) mmol/L BUN 57 H (9-16) mg/dL Creatinine 5.60 H* (0.5-1.4) mg/dL POC Glucose (60-115) mg/dL Random Glucose 150 H (60-115) mg/dL B-Natriuretic Peptide 387 H (<100) pg/mL Total Protein 5.8 L (6.5-8.0) g/dL Albumin 3.3 L (3.5-5.0) g/dL Lipase 82 H (8-78) U/L Urine Protein (NEG-TRACE) MG/DL Urine Glucose (UA) (NEG) MG/DL Urine Blood (NEG) U Random Total Protein (<12) mg/dL 12/03/20 12/03/20 12/04/20 Range/Units 18:50 21:06 05:26 RBC (4.20-5.50) X10*6/uL Hgb (12.0-16.0) g/dl Hct (37-47) % Neut % (Auto) (45-73) % Lymph % (Auto) (20-40) % Lymph # (Auto) (1.2-4.9) X10*3/uL Chloride 112 H (96-108) mmol/L Carbon Dioxide 21 L (22-29) mmol/L BUN 56 H (9-16) mg/dL Creatinine 5.59 H* (0.5-1.4) mg/dL POC Glucose 155 H 247 H (60-115) mg/dL Random Glucose (60-115) mg/dL B-Natriuretic Peptide (<100) pg/mL Total Protein (6.5-8.0) g/dL Albumin (3.5-5.0) g/dL Lipase (8-78) U/L Urine Protein (NEG-TRACE) MG/DL Urine Glucose (UA) (NEG) MG/DL Urine Blood (NEG) U Random Total Protein (<12) mg/dL 12/04/20 12/04/20 Range/Units 06:15 06:15 RBC (4.20-5.50) X10*6/uL Hgb (12.0-16.0) g/dl Hct (37-47) % Neut % (Auto) (45-73) % Lymph % (Auto) (20-40) % Lymph # (Auto) (1.2-4.9) X10*3/uL Chloride (96-108) mmol/L Carbon Dioxide (22-29) mmol/L BUN (9-16) mg/dL Creatinine (0.5-1.4) mg/dL POC Glucose (60-115) mg/dL Random Glucose (60-115) mg/dL B-Natriuretic Peptide (<100) pg/mL Total Protein (6.5-8.0) g/dL Albumin (3.5-5.0) g/dL Lipase (8-78) U/L Urine Protein 3+ H (NEG-TRACE) MG/DL Urine Glucose (UA) 100 H (NEG) MG/DL Urine Blood 1+ H (NEG) U Random Total Protein 1180 H (<12) mg/dL Short CBC 12/03/20 Range/Units 10:26 WBC 5.5 (4.8-10.8) X10*3/uL Hgb 11.0 L (12.0-16.0) g/dl Hct 34.4 L (37-47) % Plt Count 199 (160-400) X10*3/uL BMP 12/03/20 12/04/20 10:26 05:26 Sodium 143 143 Potassium 4.9 4.6 Chloride 112 H 112 H Carbon Dioxide 20 L 21 L BUN 57 H 56 H Creatinine 5.60 H* 5.59 H* Calcium 9.0 8.8 Liver Function 12/03/20 Range/Units 10:26 Total Bilirubin 0.4 (0.0-1.0) mg/dL Direct Bilirubin < 0.2 (0.0-0.5) mg/dL AST 16 (5-31) U/L ALT 13 (0-31) U/L Alkaline Phosphatase 78 (39-117) U/L Albumin 3.3 L (3.5-5.0) g/dL Urine 12/04/20 Range/Units 06:15 Urine Color YELLOW Urine Appearance CLEAR Urine pH 6.0 (5.0-8.0) Ur Specific [place] 1.020 (1.005-1.025) Urine Protein 3+ H (NEG-TRACE) MG/DL Urine Glucose (UA) 100 H (NEG) MG/DL All other labs normal. Assessment and Plan (1) Chronic kidney disease: Status: Acute In short patient has chronic renal insufficiency. I have discussed the pathophysiology and the need for permanent access with bottom painter present. I will try to expedite vein mapping prior to discharge. Once she is discharged we can schedule her electively as an outpatient. As her renal insufficiency continues to progress will try to expedite this as soon as possible. Case was discussed with nephrology. Stable from my perspective for discharge. Thank you for allowing me to participate in her care. If there are any questions or concerns please do not hesitate to contact us.
--- NOTE | 2020-12-04 10:24 | PM.DS ---
DS: Providers Provider Date of Service: 12/04/20 Date of admission: 12/03/20 12:17 Primary care physician: Patricia Ingram MD Consults: 12/03/20 12:17 Consult to Nephrology Routine Consulting Provider: Yared Powell Reason for consultation: avni DS: Diagnosis Discharge Diagnosis (1) Chronic kidney disease: Status: Acute DS: Medications Discharge Medications Home Medications: Home Medications Medication Instructions Recorded Confirmed amlodipine 10 mg tablet 10 mg PO DAILY 06/10/20 12/03/20 aspirin 81 mg tablet,delayed 81 mg PO DAILY 06/10/20 12/03/20 release atorvastatin 80 mg tablet 80 mg PO DAILY 06/10/20 12/03/20 carvedilol 6.25 mg tablet 6.25 mg PO BID 06/10/20 12/03/20 ferrous sulfate 325 mg (65 mg 325 mg PO BIDWM 06/10/20 12/03/20 iron) tablet furosemide 40 mg tablet 80 mg PO BID 06/10/20 12/03/20 hydralazine 10 mg tablet 10 mg PO BID tab 06/10/20 12/03/20 insulin glargine 100 unit/mL See Rx Instructions SUBCUT QPM 06/10/20 12/03/20 subcutaneous solution pantoprazole 40 mg tablet,delayed 40 mg PO DAILY 06/10/20 12/03/20 release sertraline 100 mg tablet 150 mg PO DAILY tab 06/10/20 12/03/20 ascorbic acid (vitamin C) [Vitamin 1 tab PO BID 12/03/20 12/03/20 C] calcitriol 1 cap PO Q OTHER DAY 12/03/20 12/03/20 melatonin 1 tab PO BEDTIME 12/03/20 12/03/20 montelukast 1 tab PO BEDTIME 12/03/20 12/03/20 DS: Summary Hospital Course Hospital Course: CHIEF COMPLAINT: Generalized weakness. HISTORY OF PRESENT ILLNESS: This is a 65-year-old female patient with past medical history significant for coronary artery disease, status post CABG in 2018. Post procedure, the patient has chronic left anterior chest pain, history of diabetes mellitus, asthma, GERD, and advanced chronic kidney disease, presented to [facility] due to symptoms of cough and shortness of breath that started at 4 a.m. The patient said she was shivering, sweating, and mumbling. Son could not understand what she is saying, therefore brought her to [facility]. She also gives history of generalized weakness, chronic leg edema that fluctuates. She denies any associated shortness of breath. She denies PND, no orthopnea, but she noticed that she gets tired easily with activity. She has been compliant on all of her medications. 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 In the emergency room, the patient's workup revealed a BNP of 387, that is increased from 248. Her creatinine bumped from 4.3 to 5.6 in 1 month. Her hematocrit remains stable. Troponin of flat. Chest x-ray showed no acute infiltrate. The patient was treated in the ER with albuterol inhaler. At present, she is resting comfortably, offers no other complaints than her chronic chest pressure. PAST MEDICAL HISTORY: Significant for: 1. History of asthma. 2. History of atherosclerotic cardiovascular disease, status post CABG in 2018 after an episode of [id number] [place]. 3. History of advanced chronic kidney disease. 4. History of depression. 5. History of DJD. 6. History of essential hypertension. 7. History of hypercalcemia. 8. History of obstructive sleep apnea. 9. Hyperlipidemia. 10. Type 2 diabetes mellitus. PAST SURGICAL HISTORY: Status post coronary artery bypass graft. Hospital course: Patient presented because of an episode of shivering and was found to have acute on chronic renal failure. Her creatinine was at 5.6. It is of note that in December 2019 her renal function (Cr) was 2.34. On 10/29/2020 , creatinine was 4.31 and on December 03 when she presented to the emergency room creatinine was a 5.60 she was not complaining about any urinary symptoms.Nno urinary retention. She was admitted because of the worsening renal failure. nephrology consultation was requested with Dr. Powell . At this point it is unclear what is causing acute on chronic renal failure and may be progressing to end-stage renal disease althoug, there is no indication for dialysis at this time. She has had multiple serology lab work by Dr. Powell and will follow up on outpatient basis and may need biopsy of kidney. As far as the shivering episode, this has resolved, there is no source of infection, no fever, UA is unremarkable. Vital are stable, she will follow up with Dr. Powell next week. Time Spent with Patient Time attestation: Total time spent providing and/or coordinating discharge services: Discharge coordination time: Greater than 30 minutes Physical Exam Vital Signs: Vital Signs: Last Vital Signs Temp 97 F 12/04/20 07:06 Pulse 59 12/04/20 07:06 Resp 18 12/04/20 07:06 BP 156/69 H 12/04/20 07:06 Pulse Ox 99 12/04/20 07:06 Body Mass Index 39.0 General: AO X 3, no acute distress Resp: CTA bilateral CVS: S1,S2,RRR GI: +BS, NT, no distention Skin: No rash Neuro: motor grossly intact Psych: appropriate affect DS: Data Data Completed and Pending Labs on day of discharge: Laboratory Results - last 24 hr 12/03/20 12/03/20 12/03/20 10:23 10:26 10:26 WBC 5.5 RBC 3.76 L Hgb 11.0 L Hct 34.4 L MCV 91.5 MCH 29.3 MCHC 32.0 RDW 13.5 Plt Count 199 MPV 10.4 Immature Gran % (Auto) 0.4 Neut % (Auto) 84.7 H Lymph % (Auto) 11.6 L [place] % (Auto) 2.9 Eos % (Auto) 0.2 Baso % (Auto) 0.2 Lymph # (Auto) 0.6 L [place] # (Auto) 0.2 Eos # (Auto) 0.0 Baso # (Auto) 0.0 Abs Immat Gran (auto) 0.02 Absolute Neuts (auto) 4.7 Absolute Nucleated RBC 0.000 Nucleated RBC % (auto) 0.0 Smear Tech's Comments VERIFIED PT INR APTT Hold Blue Top Sodium 143 Potassium 4.9 Chloride 112 H Carbon Dioxide 20 L Anion Gap 16 BUN 57 H Creatinine 5.60 H* Estim Creat Clear Calc 9.8 Estimated GFR 8 POC Glucose Random Glucose 150 H Calcium 9.0 Magnesium 2.3 Total Bilirubin 0.4 Direct Bilirubin < 0.2 AST 16 ALT 13 Alkaline Phosphatase 78 Troponin I High Sens B-Natriuretic Peptide Total Protein 5.8 L Albumin 3.3 L Lipase 82 H Urine Color Urine Appearance Urine pH Ur Specific [place] Urine Protein Urine Glucose (UA) Urine Ketones Urine Blood Urine Nitrite Ur Leukocyte Esterase Urine RBC Urine WBC Ur Squamous Epith Cells Urine Bacteria Hyaline Casts Granular Casts Waxy Casts Urine Yeast U Random Total Protein Urine Creatinine Urine Microalbumin Microalb/Creat Ratio COVID-19 ([facility]) Negative COVID-19 Clin Com See Note Hep Bs Antigen Hep Bs Antibody Hep B Core Total Ab Hepatitis C Ab (EIA) 12/03/20 12/03/20 12/03/20 10:27 10:27 18:50 WBC RBC Hgb Hct MCV MCH MCHC RDW Plt Count MPV Immature Gran % (Auto) Neut % (Auto) Lymph % (Auto) [place] % (Auto) Eos % (Auto) Baso % (Auto) Lymph # (Auto) [place] # (Auto) Eos # (Auto) Baso # (Auto) Abs Immat Gran (auto) Absolute Neuts (auto) Absolute Nucleated RBC Nucleated RBC % (auto) Smear Tech's Comments PT 12.3 INR 1.0 APTT 37.5 Hold Blue Top SEE NOTE Sodium Potassium Chloride Carbon Dioxide Anion Gap BUN Creatinine Estim Creat Clear Calc Estimated GFR POC Glucose 155 H Random Glucose Calcium Magnesium Total Bilirubin Direct Bilirubin AST ALT Alkaline Phosphatase Troponin I High Sens 9.0 B-Natriuretic Peptide 387 H Total Protein Albumin Lipase Urine Color Urine Appearance Urine pH Ur Specific [place] Urine Protein Urine Glucose (UA) Urine Ketones Urine Blood Urine Nitrite Ur Leukocyte Esterase Urine RBC Urine WBC Ur Squamous Epith Cells Urine Bacteria Hyaline Casts Granular Casts Waxy Casts Urine Yeast U Random Total Protein Urine Creatinine Urine Microalbumin Microalb/Creat Ratio COVID-19 ([facility]) COVID-19 Clin Com Hep Bs Antigen Hep Bs Antibody Hep B Core Total Ab Hepatitis C Ab (EIA) 12/03/20 12/04/20 12/04/20 21:06 05:26 05:26 WBC RBC Hgb Hct MCV MCH MCHC RDW Plt Count MPV Immature Gran % (Auto) Neut % (Auto) Lymph % (Auto) [place] % (Auto) Eos % (Auto) Baso % (Auto) Lymph # (Auto) [place] # (Auto) Eos # (Auto) Baso # (Auto) Abs Immat Gran (auto) Absolute Neuts (auto) Absolute Nucleated RBC Nucleated RBC % (auto) Smear Tech's Comments PT INR APTT Hold Blue Top Sodium 143 Potassium 4.6 Chloride 112 H Carbon Dioxide 21 L Anion Gap 15 BUN 56 H Creatinine 5.59 H* Estim Creat Clear Calc 9.8 Estimated GFR 8 POC Glucose 247 H Random Glucose 76 D Calcium 8.8 Magnesium Total Bilirubin Direct Bilirubin AST ALT Alkaline Phosphatase Troponin I High Sens B-Natriuretic Peptide Total Protein Albumin Lipase Urine Color Urine Appearance Urine pH Ur Specific [place] Urine Protein Urine Glucose (UA) Urine Ketones Urine Blood Urine Nitrite Ur Leukocyte Esterase Urine RBC Urine WBC Ur Squamous Epith Cells Urine Bacteria Hyaline Casts Granular Casts Waxy Casts Urine Yeast U Random Total Protein Urine Creatinine Urine Microalbumin Microalb/Creat Ratio COVID-19 ([facility]) COVID-19 Clin Com Hep Bs Antigen Negative Hep Bs Antibody NONREACTIVE Hep B Core Total Ab Nonreactive Hepatitis C Ab (EIA) Nonreactive 12/04/20 12/04/20 12/04/20 06:15 06:15 07:01 WBC RBC Hgb Hct MCV MCH MCHC RDW Plt Count MPV Immature Gran % (Auto) Neut % (Auto) Lymph % (Auto) [place] % (Auto) Eos % (Auto) Baso % (Auto) Lymph # (Auto) [place] # (Auto) Eos # (Auto) Baso # (Auto) Abs Immat Gran (auto) Absolute Neuts (auto) Absolute Nucleated RBC Nucleated RBC % (auto) Smear Tech's Comments PT INR APTT Hold Blue Top Sodium Potassium Chloride Carbon Dioxide Anion Gap BUN Creatinine Estim Creat Clear Calc Estimated GFR POC Glucose 73 Random Glucose Calcium Magnesium Total Bilirubin Direct Bilirubin AST ALT Alkaline Phosphatase Troponin I High Sens B-Natriuretic Peptide Total Protein Albumin Lipase Urine Color YELLOW Urine Appearance CLEAR Urine pH 6.0 Ur Specific [place] 1.020 Urine Protein 3+ H Urine Glucose (UA) 100 H Urine Ketones NEG Urine Blood 1+ H Urine Nitrite NEG Ur Leukocyte Esterase NEG Urine RBC 1-4 Urine WBC 1-4 Ur Squamous Epith Cells TRACE Urine Bacteria NONE Hyaline Casts 1-4 Granular Casts 5-9 Waxy Casts 0-2 Urine Yeast TRACE U Random Total Protein 1180 H Urine Creatinine 84.66 Urine Microalbumin 7476.0 Microalb/Creat Ratio 8830.6 COVID-19 ([facility]) COVID-19 Clin Com Hep Bs Antigen Hep Bs Antibody Hep B Core Total Ab Hepatitis C Ab (EIA) Discharge Plan Discharge Anticipated Discharge Date/Time: 12/04/20 10:15 Patient Disposition: Home, Self-Care Discharge Diagnosis: Acute on chronic renal failure Referrals: Patricia Ingram MD [Primary Care Provider] - 1 Week Yared Powell MD [Physician] - 1 Week (Follow up on renal failure) Discharge Medications: Continued ascorbic acid (vitamin C) [Vitamin C] 500 mg tablet 1 tab PO BID RF: 0 montelukast 10 mg tablet 1 tab PO BEDTIME RF: 0 calcitriol 0.25 mcg capsule 1 cap PO Q OTHER DAY RF: 0 melatonin 5 mg tablet 1 tab PO BEDTIME RF: 0 aspirin 81 mg tablet,delayed release (DR/EC) 81 mg PO DAILY RF: 0 carvedilol 6.25 mg tablet 6.25 mg PO BID RF: 0 amlodipine 10 mg tablet 10 mg PO DAILY RF: 0 atorvastatin 80 mg tablet 80 mg PO DAILY RF: 0 furosemide 40 mg tablet 80 mg PO BID RF: 0 hydralazine 10 mg tablet 10 mg PO BID RF: 0 ferrous sulfate 325 mg (65 mg iron) tablet 325 mg PO BIDWM RF: 0 pantoprazole 40 mg tablet,delayed release (DR/EC) 40 mg PO DAILY RF: 0 Lantus U-100 Insulin 100 unit/mL solution See Rx Instructions subcut QPM RF: 0 sertraline 100 mg tablet 150 mg PO DAILY RF: 0 Discharge Orders: Discharge Order (Routine); Ordered 12/04/20 Ordered By: Blaze Molina Diet: advance to usual diet Activity on Discharge: As tolerated Stand Alone Forms: Patient Portal Discharge page Care Plan Goals: Full work up for renal failure Health Concerns: Progress renal failure Plan of Treatment: Follow up with Dr. Powell next week Assessment: Acute on chronic renal failure
--- NOTE | 2020-12-04 11:01 | MHC.CM.PN ---
Patient has been medically cleared for dc to home today, no skilled services ordered but [facility] services should resume as before. IMM addressed this morning.
[2020-12-04 11:02] VITALS: BP 154/74; PULSE 64; RESP 18; TEMP 36.1; O2SAT 99
[2020-12-04 11:06] LABS: Glucose, Whole Blood 149 mg/dL (60-115)
--- NOTE | 2020-12-04 18:38 | P.PNNP_ITS ---
Subjective Subjective Date of Service: 12/04/20 Principal diagnosis: wally Interval history: seen and exmained. Events noted Physical Exam Vital Signs: Vital Signs: Last Vital Signs Temp 97 F 12/04/20 11:02 Pulse 64 12/04/20 11:02 Resp 18 12/04/20 11:02 BP 154/74 H 12/04/20 11:02 Pulse Ox 99 12/04/20 11:02 Body Mass Index 39.0 Const: General: cooperative, healthy appearing and comfortable Orientation/consciousness: oriented to person, oriented to place and oriented to time HENMT: Head: Yes normal to inspection Neck: Neck: Yes normal visual inspection Carotids: no bruits Chest: Chest palpation & inspection: normal inspection of the chest Resp: Effort & Inspection: normal respiratory effort and able to speak in complete sentences Auscultation: clear to auscultation bilaterally, no crackles, no rales, no rhonchi and no wheezes Cardio: Rate: regular rate Rhythm: regular rhythm Heart sounds: S1 normal heart sound present and S2 normal heart sound present Bruits: no carotid bruits Peripheral pulses: brachial pulses present, radial pulses present, ulnar radial pulses present and other (IV in left antecubital fossa) GI: Inspection: Yes normal to inspection Skin: Wounds: no wounds Hair: normal Neuro: General: oriented to person, oriented to place and oriented to time Cranial nerves: Yes CN's II-XII intact bilaterally and Yes Normal hearing pre sent Cognition (Neuro): normal cognition Motor exam (neuro): 5/5 motor strength present throughout Extrem: Other: venous exam: No significant superficial varicosities or spider telangiectasias, minimal edema General: No clubbing, No cyanosis and No edema Psych: Appearance: grossly normal Mental Status: mental status grossly normal Speech and movement: Normal speech and movement present Objective Data Labs CBC & Chem 7: 12/03/20 10:26 12/04/20 05:26 Labs: Laboratory Results - last 24 hr 12/03/20 12/03/20 12/04/20 18:50 21:06 05:26 Sodium 143 Potassium 4.6 Chloride 112 H Carbon Dioxide 21 L Anion Gap 15 BUN 56 H Creatinine 5.59 H* Estim Creat Clear Calc 9.8 Estimated GFR 8 POC Glucose 155 H 247 H Random Glucose 76 D Calcium 8.8 Urine Color Urine Appearance Urine pH Ur Specific [place] Urine Protein Urine Glucose (UA) Urine Ketones Urine Blood Urine Nitrite Ur Leukocyte Esterase Urine RBC Urine WBC Ur Squamous Epith Cells Urine Bacteria Hyaline Casts Granular Casts Waxy Casts Urine Yeast U Random Total Protein Urine Creatinine Urine Microalbumin Microalb/Creat Ratio Hep Bs Antigen Hep Bs Antibody Hep B Core Total Ab Hepatitis C Ab (EIA) 12/04/20 12/04/20 12/04/20 05:26 06:15 06:15 Sodium Potassium Chloride Carbon Dioxide Anion Gap BUN Creatinine Estim Creat Clear Calc Estimated GFR POC Glucose Random Glucose Calcium Urine Color YELLOW Urine Appearance CLEAR Urine pH 6.0 Ur Specific [place] 1.020 Urine Protein 3+ H Urine Glucose (UA) 100 H Urine Ketones NEG Urine Blood 1+ H Urine Nitrite NEG Ur Leukocyte Esterase NEG Urine RBC 1-4 Urine WBC 1-4 Ur Squamous Epith Cells TRACE Urine Bacteria NONE Hyaline Casts 1-4 Granular Casts 5-9 Waxy Casts 0-2 Urine Yeast TRACE U Random Total Protein 1180 H Urine Creatinine 84.66 Urine Microalbumin 7476.0 Microalb/Creat Ratio 8830.6 Hep Bs Antigen Negative Hep Bs Antibody NONREACTIVE Hep B Core Total Ab Nonreactive Hepatitis C Ab (EIA) Nonreactive 12/04/20 12/04/20 07:01 11:01 Sodium Potassium Chloride Carbon Dioxide Anion Gap BUN Creatinine Estim Creat Clear Calc Estimated GFR POC Glucose 73 149 H Random Glucose Calcium Urine Color Urine Appearance Urine pH Ur Specific [place] Urine Protein Urine Glucose (UA) Urine Ketones Urine Blood Urine Nitrite Ur Leukocyte Esterase Urine RBC Urine WBC Ur Squamous Epith Cells Urine Bacteria Hyaline Casts Granular Casts Waxy Casts Urine Yeast U Random Total Protein Urine Creatinine Urine Microalbumin Microalb/Creat Ratio Hep Bs Antigen Hep Bs Antibody Hep B Core Total Ab Hepatitis C Ab (EIA) Assessment & Plan Assessment and plan (1) WALLY (acute kidney injury): Status: Acute Assessment and Plan: 1. WALLY: incr SCr over the past 2 months is very concerning and needs full evaluation with sero/urine studies and renal U/S; her history and presentation do not suggests a specific cause hence the need for furhter testing as the DDx incluide pre-renal intr-renal: AGN, AIN---note that back in October her UAC was markedly incr at 14 gm which raises concern for a new glom unjury superimposed on her mosy likel underlying DN ( bsl SCr 2's and 3 gms UAC in past) AIN vs prog DN/HTN renal dis as cause of prog loss of renal func U/S noted --no hydro; good kidney size 2. CKD 4: bsl SCr 2's with heavy Uprot most c/w DN REC: sero and urine studies ordered;; will need to strongly consider kidney Bx; protect non-dominat arm for fuyture AVF; avoid NToxins ok to d/c home with clsoe f/u re: possible kidney Bx and prep for dialysis will follow sheri with team Time Spent With Patient Time: Total time spent is greater than 50% in coordination of care (as doc umented) at patient's floor/unit and/or counseling patient:
[2020-12-05 12:22] LABS: Myeloperoxidase Antibody <1.0 AI; Proteinase 3 PR3 Antibodies <1.0 AI
[2020-12-07 13:16] LABS: Calcium (PTHI) 8.9 mg/dL (8.6-10.4); PTHI 324 pg/mL (14-64)
[2020-12-07 14:06] LABS: IgA 237 mg/dL (70-320); IgG 596 mg/dL (600-1540); IgM 98 mg/dL (50-300)
[2020-12-14 03:11] LABS: Kappa, Serum 159 mg/dL (176-443); Lambda, Serum 106 mg/dL (91-240)
== END 2020-12-04 14:09 | disposition home or self-care (01) | DRG 684 ==
LOC: HO.ED 11:28 → HO.EDOVER 12:34 → HO.IMC 15:59
PROVIDERS: Internal Medicine Nephrology; Admitting Provider Hospitalist; Emergency Provider Emergency Medicine; PCP Family Medicine; Visit Provider Internal Medicine
DX: N17.9 Acute kidney failure, unspecified (principal); K21.9 Gastro-esophageal reflux disease without esophagitis; I25.2 Old myocardial infarction; I12.9 Hypertensive chronic kidney disease with stage 1 through stage 4 chronic kidney disease, or unspecified chronic kidney disease; E11.22 Type 2 diabetes mellitus with diabetic chronic kidney disease; N18.4 Chronic kidney disease, stage 4 (severe); I25.10 Atherosclerotic heart disease of native coronary artery without angina pectoris; Z95.1 Presence of aortocoronary bypass graft; Z20.822 Contact with and (suspected) exposure to COVID-19; Z79.4 Long term (current) use of insulin; Z79.82 Long term (current) use of aspirin; Z79.899 Other long term (current) drug therapy
CPT/HCPCS: 36415; 71045; 76775; 80048; 80076; 81001; 82043; 82784; 82947; 83690; 83735; 83880; 83883; 83970; 84156; 84484; 85025; 85610; 85730; 86021; 86334; 86704; 86706; 86803; 87340; 87635; 93005; 93970; 94640; 96374; 99285

== ENCOUNTER 2020-12-14 14:15 | Outpatient (REF) | payer MEDICARE, SELFPAY ==
[2020-12-14 15:20] LABS: Hematocrit 34.9 % (37-47); Hemoglobin 11.3 g/dl (12.0-16.0); Mean Corpuscular HGB Conc 32.4 g/dl (31.0-35.0); Mean Corpuscular Hemoglobin 29.4 pg (27.0-33.0); Mean Corpuscular Volume 90.6 fL (80-98); Mean Platelet Volume 10.7 fL (9.4-12.3); Platelet Count 222 X10*3/uL (160-400); Red Blood Count 3.85 X10*6/uL (4.20-5.50); Red Cell Distribution Width 13.2 % (11.0-16.0); White Blood Count 5.5 X10*3/uL (4.8-10.8)
[2020-12-14 15:32] LABS: Glucose Urine UA NEG (NEG); Leukocyte Esterase Urine NEG (NEG); Nitrite Urine NEG (NEG); Urine Blood TRACE (NEG); Urine Ketones NEG (NEG); Urine Protein 3+ MG/DL (NEG-TRACE)
[2020-12-14 15:43] LABS: Appearance Urine CLEAR; Color Urine YELLOW
[2020-12-14 15:44] LABS: Albumin Level 3.3 g/dL (3.5-5.0); Calcium 9.2 mg/dL (8.4-10.2); Magnesium 2.3 mg/dL (1.6-2.6); Phosphorus 5.5 mg/dL (2.7-4.5)
[2020-12-14 16:06] LABS: Vitamin D 25-OH Total 20.8 ng/mL (>30)
[2020-12-14 16:33] LABS: Bacteria Urine 2+ /LPF; RBC Urine 0-2 /HPF (0); Squamous Epithelial Cell Urine 3+ /LPF
[2020-12-14 16:51] LABS: Total Protein Urine Random 1618 mg/dL (<12)
[2020-12-15 13:12] LABS: Calcium (PTHI) 9.1 mg/dL (8.6-10.4); PTHI 280 pg/mL (14-64)
== END 2020-12-14 14:16 | disposition home or self-care (01) ==
LOC: HO.LAB 14:15
PROVIDERS: PCP Family Medicine; Visit Provider Internal Medicine Nephrology
DX: R80.1 Persistent proteinuria, unspecified (principal); N25.0 Renal osteodystrophy; E11.22 Type 2 diabetes mellitus with diabetic chronic kidney disease; N18.4 Chronic kidney disease, stage 4 (severe)
CPT/HCPCS: 36415; 81001; 82040; 82306; 82310; 83735; 83970; 84100; 84156; 85027; 87086

== ENCOUNTER → 2021-03-23 11:06 | Outpatient (BNVA) | payer MEDICARE, SELFPAY | PROVIDERS: PCP Family Medicine; Referring Provider Family Medicine; Visit Provider Psychiatry & Neurology Neurology | DX: G47.33 Obstructive sleep apnea (adult) (pediatric) (principal) | CPT/HCPCS: 99202 ==

== ENCOUNTER → 2021-04-07 13:55 | Outpatient (BNVA) | payer MEDICARE, SELFPAY | PROVIDERS: PCP Family Medicine; Referring Provider Family Medicine; Visit Provider Internal Medicine | DX: R07.89 Other chest pain (principal); I25.810 Atherosclerosis of coronary artery bypass graft(s) without angina pectoris; E11.22 Type 2 diabetes mellitus with diabetic chronic kidney disease; I13.10 Hypertensive heart and chronic kidney disease without heart failure, with stage 1 through stage 4 chronic kidney disease, or unspecified chronic kidney disease; N18.9 Chronic kidney disease, unspecified; G47.33 Obstructive sleep apnea (adult) (pediatric); E83.52 Hypercalcemia; E78.5 Hyperlipidemia, unspecified; Z95.1 Presence of aortocoronary bypass graft; Z79.82 Long term (current) use of aspirin; Z79.4 Long term (current) use of insulin; Z79.899 Other long term (current) drug therapy | CPT/HCPCS: 99212 ==

== ENCOUNTER → 2021-04-27 15:47 | Outpatient (REF) | payer MEDICARE, SELFPAY | LOC: HO.SL 15:47 | PROVIDERS: PCP Family Medicine; Visit Provider Psychiatry & Neurology Neurology | DX: G47.33 Obstructive sleep apnea (adult) (pediatric) (principal) | CPT/HCPCS: 95806 ==

== ENCOUNTER → 2021-05-06 13:39 | Outpatient (BNVA) | payer MEDICARE, SELFPAY | PROVIDERS: PCP Family Medicine; Referring Provider Family Medicine; Visit Provider Nurse Practitioner Family | DX: I25.10 Atherosclerotic heart disease of native coronary artery without angina pectoris (principal); N18.9 Chronic kidney disease, unspecified; R60.9 Edema, unspecified; E78.5 Hyperlipidemia, unspecified; Z95.1 Presence of aortocoronary bypass graft | CPT/HCPCS: 99212 ==

== ENCOUNTER 2021-07-10 23:14 | Inpatient (IN) | payer MEDICARE, SELFPAY ==
--- NOTE | ~2021-07-10 | CT_ITS ---
EXAM: NONCONTRAST CT OF THE CHEST; NONCONTRAST CT OF THE ABDOMEN AND PELVIS INDICATION: Shortness of breath, right-sided chest pain COMPARISON: Chest x-ray 07/01/2021 TECHNIQUE: No IV contrast was utilized. Multidetector helical imaging was performed through the chest, abdomen, and pelvis. Coronal and sagittal reformatted images were created at the technologist workstation. DOSE LOWERING TECHNIQUES: This CT examination was performed using dose optimization techniques as appropriate, variously including the following: - Automated exposure control - Adjustment of mA and/or kV according to patient size (this includes techniques or standardized protocols for targeted exams were dose is matched to indication/reason for exam; i.e. extremities or head) - Use of iterative reconstruction technique DLP: 827 mGy-cm FINDINGS: Chest: Detailed assessment of the lung parenchyma is limited due to respiratory motion artifact. No regions of consolidation bilaterally. Linear atelectasis is noted in the lingula. No pneumothorax or pleural effusion. Visualized thyroid gland is grossly unremarkable. No discrete mediastinal lymphadenopathy is seen. Patient appears status post CABG. There is mild cardiomegaly without pericardial effusion. Scattered calcification is noted along the aorta. No axillary lymphadenopathy is present. Status post sternotomy. Multilevel degenerative endplate changes are noted in the thoracic spine. Abdomen/Pelvis: Limited assessment some regions due to motion artifact. The liver is homogeneous in attenuation without intrahepatic biliary ductal dilatation. The gallbladder is unremarkable. The unenhanced spleen, pancreas, and adrenal glands are within normal limits. The unenhanced kidneys are unremarkable without hydronephrosis. No renal or ureteral calculi are present. The urinary bladder is unremarkable. The uterus and adnexa are unremarkable. The small and large bowel are unremarkable without evidence of obstruction or pericolonic inflammatory change. The appendix is unremarkable. No free fluid or free air is identified. There is atherosclerotic calcification along the aorta and iliac arteries. No retroperitoneal or pelvic lymphadenopathy is seen. No acute osseous findings. CT/CT abdomen pelvis wo con IMPRESSION: 1. Suboptimal assessment of some regions due to motion artifact. No acute findings identified in the chest, abdomen, or pelvis. 2. Mild cardiomegaly.
--- NOTE | ~2021-07-10 | XR_ITS ---
EXAMINATION: XR CHEST CLINICAL INFORMATION: Cough COMPARISON: 12/03/2020 TECHNIQUE: Frontal view of the chest was obtained. FINDINGS: The lungs are clear with no focal consolidation. No evidence of pneumothorax, pulmonary edema, or pleural effusions. Cardiac silhouette appears borderline enlarged, similar to prior. Calcification is present at the aortic arch. Sternal wires are present. No acute osseous findings are seen. XR/XR chest 1V IMPRESSION: No acute cardiopulmonary findings.
--- NOTE | ~2021-07-10 | IR_ITS ---
PROCEDURE: IR INSERTION OF TUNNEL CATHETER CLINICAL INFORMATION: CKD 5, needs dialysis. COMPARISON: None TECHNIQUE: Following explaining ultrasound and fluoroscopy-guided placement of right Permacath procedure, benefits and risk via a cornice maker, a written consent was obtained. Patient was placed on the angiography table and preliminary ultrasound imaging was obtained through the right neck. Images were obtained for documentation. A spot was selected along the right neck and marked. The marked site was cleaned and draped in the usual sterile manner. 1% lidocaine was injected at the puncture site. Under sterile ultrasound guidance, a single walled needle was advanced from the lateral aspect of the neck into the jugular vein. After obtaining venous return, a thin wire was advanced and the needle was withdrawn. Over the wire a 5-[place] dilator with sheath was placed. The guidewire was removed and replaced with a 0.035 J-wire. The catheter was advanced beyond the heart into the IVC. The guidewire and the catheter were then attached to the drain hemostat. Approximately 1 gauze length away from the right neck incision, along the right anterior chest wall, 1% lidocaine was administered. 1% lidocaine with epinephrine was also administered from the right anterior chest wall lesion subcutaneously to the right anterior neck wall incision. A small skin incision was performed along the right anterior chest wall. A tunneler attached to the Permacatheter was bluntly advanced and extracted through the right neck incision. The catheter was pulled as well making sure the retainer was within the subcutaneous soft tissues. The 5-[place]anaian sheath along the right neck was removed and exchanged with a 7- and 10-Ghanaian dilator. A 6-Ghanaian dilator with peel-away sheath was advanced over the guidewire. The dilator and the guidewire were removed. The 14-Ghanaian Permacatheter was then advanced through the peel-away sheath. The peel-away sheath was slowly removed as the Permacatheter was held in position. The peel-away sheath was completely removed and a single image was obtained over the right anterior chest for documentation. 3-0 nylon sutures were applied at the right neck incision, right anterior chest wall incision. The right Permacatheter was also sutured to the anterior chest wall. Both ports of the catheter were flushed with saline with 1.9 mL of heparin injected through each port. Patient tolerated the procedure well. Conscious sedation was administered and the patient monitored during the exam.. All elements of maximal sterile barrier technique followed including use of cap, mask, sterile gown, sterile gloves, a sterile full body drape and hand hygiene. Also followed skin preparation with 2% chlorhexidine for cutaneous antisepsis, and sterile ultrasound preparation with sterile gel and probe cover when applicable. FINDINGS: On preliminary ultrasound imaging there is a widely patent jugular vein. Ultrasound and fluoroscopy-guided placement of the 14-Ghanaian 23 cm long palindrome/Permacatheter. The catheter tip lies in the distal SVC and is ready for use. IR/IR cvc insert central tunnel IMPRESSION: Successful ultrasound and fluoroscopy-guided placement of a right Permacatheter with its tip in the SVC, ready for use.
[2021-07-10 23:24] VITALS: BP 187/65; PULSE 64; RESP 16; TEMP 36.2; O2SAT 97; BMI 32.0
[2021-07-11] VITALS (11 sets, daily range): BP systolic 168–200; BP diastolic 50–84; PULSE 65–74; RESP 16–22; TEMP 35.7–36.8; O2SAT 96–99
[2021-07-11 02:49] LABS: MANUAL DIFF FLAG NO
[2021-07-11 02:54] LABS: Basophils Percent Auto 0.4 % (0-2); Eosinophils Percent Auto 0.6 % (0-4); Hematocrit 33.4 % (37.0-47.0); Imm Gran Abs Auto 0.03 X10*3/uL (0.00-0.03); Imm Gran Pct Auto 0.4 % (0.0-0.4); Lymphocytes Absolute Auto 1.1 X10*3/uL (1.2-4.9); Lymphocytes Percent Auto 15.2 % (20-40); Mean Corpuscular HGB Conc 29.9 g/dl (31.0-35.0); Mean Corpuscular Hemoglobin 27.9 pg (27.0-33.0); Mean Corpuscular Volume 93.3 fL (80.0-98.0); Mean Platelet Volume 10.2 fL (9.4-12.3); Monocytes Absolute Auto 0.3 X10*3/uL (0.1-1.2); Monocytes Percent Auto 4.4 % (2-11); Neutrophils Absolute Auto 5.6 x10*3/uL (2.0-8.3); Platelet Count 236 X10*3/uL (160-400); Red Blood Count 3.58 X10*6/uL (4.20-5.50); Red Cell Distribution Width 13.6 % (11.0-16.0)
--- NOTE | 2021-07-11 03:14 | ECG_ITS ---
Test Reason : ABDOMINAL PAIN Blood Pressure : / mmHG Vent. Rate : 069 BPM Atrial Rate : 069 BPM P-R Int : 150 ms QRS Dur : 086 ms QT Int : 420 ms P-R-T Axes : 062 035 039 degrees QTc Int : 450 ms Normal sinus rhythm Septal infarct (cited on or before 28-NOV-2017) Abnormal ECG When compared with ECG of 03-DEC-2020 10:22, No significant change was found Referred By: Tram Colon Electronically Signed By:Juan Carlos Morel
[2021-07-11 03:15] LABS: Alanine Aminotransferase 9 U/L (0-31); Albumin Level 2.9 g/dL (3.5-5.0); Alkaline Phosphatase 62 U/L (39-117); Anion Gap 16 (12-20); Aspartate Amino Transferase 12 U/L (5-31); Bilirubin Direct < 0.2 mg/dL (0.0-0.5); Bilirubin Total < 0.2 mg/dL (0.0-1.0); Blood Urea Nitrogen 60 mg/dL (9-16); Calcium 9.1 mg/dL (8.4-10.2); Carbon Dioxide 17 mmol/L (22-29); Chloride 115 mmol/L (96-108); Creatinine Clr Calc Pharmacy 5.6; Estimated Glomerular Filt Rate 5; Glucose Random 55 mg/dL (60-115); Lipase 38 U/L (8-78); Sodium 143 mmol/L (135-145); Total Protein 5.7 g/dL (6.5-8.0)
--- NOTE | 2021-07-11 03:19 | PC.NURSE ---
PATIENT GIVEN SNACK OF HONEY JON CRACKERS AND MILK PER MD MAGALLON
[2021-07-11 03:33] LABS: Magnesium 2.4 mg/dL (1.6-2.6)
[2021-07-11 03:47] LABS: Troponin-I High Sensitivity 14.5 ng/L (<3.5-17.0)
--- NOTE | 2021-07-11 04:16 | ED_ITS ---
HPI - Abdominal Pain General Chief Complaint: Abdominal Pain Stated Complaint: Abd pain Time Seen by Provider: 07/11/21 03:13 Source: patient and parts interpreter Mode of arrival: ambulatory History of Present Illness HPI narrative: This is a 66-year-old female who presents with underlying chronic kidney disease, SHELIA and states that for 2 weeks she has been having right lower back pain without diarrhea, nausea, vomiting, urinary pain/burning/frequency, shortness of breath, chest pain/palpitations, chills but reports subjective fevers. She states that the thing that prompted her to come in this evening was that the pain just became too much. Related Data Home Medications Medication Instructions Recorded Confirmed aspirin 81 mg tablet,delayed 81 mg PO DAILY 06/10/20 04/07/21 release atorvastatin 80 mg tablet 80 mg PO DAILY 06/10/20 04/07/21 ferrous sulfate 325 mg (65 mg 325 mg PO BIDWM 06/10/20 04/07/21 iron) tablet hydralazine 10 mg tablet 10 mg PO BID tab 06/10/20 04/07/21 insulin glargine 100 unit/mL See Rx Instructions SUBCUT QPM 06/10/20 04/07/21 subcutaneous solution (Lantus U-100 Insulin) pantoprazole 40 mg tablet,delayed 40 mg PO DAILY 06/10/20 04/07/21 release sertraline 100 mg tablet 150 mg PO DAILY tab 06/10/20 04/07/21 ascorbic acid (vitamin C) 500 mg 1 tab PO BID 12/03/20 04/07/21 tablet (Vitamin C) calcitriol 0.25 mcg capsule 1 cap PO Q OTHER DAY 12/03/20 04/07/21 melatonin 5 mg tablet 1 tab PO BEDTIME 12/03/20 04/07/21 montelukast 10 mg tablet 1 tab PO BEDTIME 12/03/20 04/07/21 furosemide 40 mg tablet 40 mg PO BID tab 05/06/21 Previous Rx's Medication Instructions Recorded carvedilol 6.25 mg tablet 6.25 mg PO BID 90 Days #180 tab 04/01/21 amlodipine 10 mg tablet 10 mg PO QAM 90 Days #90 tab 05/31/21 Allergies Allergy/AdvReac Type Severity Reaction Status Date / Time No Known Allergies Allergy Verified 04/07/21 14:20 Review of Systems Review of Systems Pertinent positives and negatives as stated in HPI and 10 point review systems is otherwise negative. Physical Exam Vital Signs: Vital Signs: Last Vital Signs Temp 98.0 F 07/11/21 04:00 Pulse 72 07/11/21 04:00 Resp 22 H 07/11/21 04:00 BP 184/67 H 07/11/21 04:00 Pulse Ox 99 07/11/21 04:00 BMI result Body Mass Index 32.0 VITAL SIGNS: Reviewed. GENERAL: Well developed, well nourished, in no acute distress. HEAD: Normocephalic/atraumatic EYES: PERRLA, EOMI OROPHARYNX: no oral lesions noted, posterior pharynx clear NECK: Supple, no adenopathy LUNGS: Normal breath sounds. No adventitious sounds or accessory muscle use. Sp O2<99> CARDIOVASCULAR: Regular rate and rhythm without noted murmurs, no JVD but there is 1+ pitting edema up to the knees ABDOMEN: Soft, non-tender, non-distended with bowel sounds. BACK: Right-sided posterior back pain on palpation SKIN: Inspection of the skin reveals no rashes NEUROLOGIC: Alert and oriented x 4. Tremulous, Strength and sensation to light touch were grossly intact x 4. Course Course Course Narrative: 66-year-old female with history and clinical presentation consistent with worsening CKD and on review of investigations appearance of worsening renal function. Patient is chronically, stable anemia and no evidence of acute infection at this time. Unclear source of right posterior back pain at this time will obtain CT scans of chest/abdomen/pelvis. Review of all investigations otherwise negative for acute findings except significant CKD with WALLY. Although noncontrast imaging of the chest/abdomen/pelvis is otherwise negative for acute findings. Patient was provided with combination Tylenol as well as lidocaine patch for her discomfort and NSAIDs were avoided for obvious reasons. On re-evaluation patient is feeling much better after the Tylenol and lidocaine patch, however due to the extent of the WALLY on CKD this case was discussed with the inpatient hospitalist who accepts admission. MDM - Abdominal Pain Lab Data Result diagrams: 07/11/21 02:41 07/11/21 02:41 Labs: Lab Results 07/11/21 07/11/21 07/11/21 Range/Units 02:41 02:41 02:41 WBC 7.0 (4.8-10.8) X10*3/uL RBC 3.58 L (4.20-5.50) X10*6/uL Hgb 10.0 L (12.0-16.0) g/dl Hct 33.4 L (37.0-47.0) % MCV 93.3 (80.0-98.0) fL MCH 27.9 (27.0-33.0) pg MCHC 29.9 L (31.0-35.0) g/dl RDW 13.6 (11.0-16.0) % Plt Count 236 (160-400) X10*3/uL MPV 10.2 (9.4-12.3) fL Immature Gran % (Auto) 0.4 (0.0-0.4) % Neut % (Auto) 79.0 H (45-73) % Lymph % (Auto) 15.2 L (20-40) % [place] % (Auto) 4.4 (2-11) % Eos % (Auto) 0.6 (0-4) % Baso % (Auto) 0.4 (0-2) % Lymph # (Auto) 1.1 L (1.2-4.9) X10*3/uL [place] # (Auto) 0.3 (0.1-1.2) X10*3/uL Eos # (Auto) 0.0 (0.0-0.4) X10*3/uL Baso # (Auto) 0.0 (0.0-0.2) X10*3/uL Abs Immat Gran (auto) 0.03 (0.00-0.03) X10*3/uL Absolute Neuts (auto) 5.6 (2.0-8.3) x10*3/uL Absolute Nucleated RBC 0.000 (0.0-0.012) X10*3/uL Nucleated RBC % (auto) 0.0 (0.0-0.2) /100WBC PT (9.9-13.0) SEC INR (0.9-1.1) Sodium 143 (135-145) mmol/L Potassium 5.0 (3.3-5.1) mmol/L Chloride 115 H (96-108) mmol/L Carbon Dioxide 17 L (22-29) mmol/L Anion Gap 16 (12-20) BUN 60 H (9-16) mg/dL Creatinine 8.52 H* (0.5-1.4) mg/dL Estim Creat Clear Calc 5.6 Estimated GFR 5 POC Glucose (60-115) mg/dL Random Glucose 55 L* (60-115) mg/dL Calcium 9.1 (8.4-10.2) mg/dL Magnesium 2.4 (1.6-2.6) mg/dL Total Bilirubin < 0.2 (0.0-1.0) mg/dL Direct Bilirubin < 0.2 (0.0-0.5) mg/dL AST 12 (5-31) U/L ALT 9 (0-31) U/L Alkaline Phosphatase 62 D (39-117) U/L Troponin I High Sens 14.5 (<3.5-17.0) ng/L Total Protein 5.7 L (6.5-8.0) g/dL Albumin 2.9 L (3.5-5.0) g/dL Lipase 38 (8-78) U/L Urine Color Urine Appearance Urine pH (5.0-8.0) Ur Specific [place] (1.005-1.025) Urine Protein (NEG-TRACE) MG/DL Urine Glucose (UA) (NEG) MG/DL Urine Ketones (NEG) MG/DL Urine Blood (NEG) Urine Nitrite (NEG) Ur Leukocyte Esterase (NEG) Urine RBC (0) /HPF Urine WBC (0-4) /HPF Ur Squamous Epith Cells /LPF Amorphous Sediment /LPF Urine Bacteria /LPF Hyaline Casts /LPF Urine Mucus /LPF Urine Yeast /HPF COVID-19 ([facility]) (Negative) COVID-19 Clin Com 07/11/21 07/11/21 07/11/21 Range/Units 04:36 04:36 05:02 WBC (4.8-10.8) X10*3/uL RBC (4.20-5.50) X10*6/uL Hgb (12.0-16.0) g/dl Hct (37.0-47.0) % MCV (80.0-98.0) fL MCH (27.0-33.0) pg MCHC (31.0-35.0) g/dl RDW (11.0-16.0) % Plt Count (160-400) X10*3/uL MPV (9.4-12.3) fL Immature Gran % (Auto) (0.0-0.4) % Neut % (Auto) (45-73) % Lymph % (Auto) (20-40) % [place] % (Auto) (2-11) % Eos % (Auto) (0-4) % Baso % (Auto) (0-2) % Lymph # (Auto) (1.2-4.9) X10*3/uL [place] # (Auto) (0.1-1.2) X10*3/uL Eos # (Auto) (0.0-0.4) X10*3/uL Baso # (Auto) (0.0-0.2) X10*3/uL Abs Immat Gran (auto) (0.00-0.03) X10*3/uL Absolute Neuts (auto) (2.0-8.3) x10*3/uL Absolute Nucleated RBC (0.0-0.012) X10*3/uL Nucleated RBC % (auto) (0.0-0.2) /100WBC PT 11.1 (9.9-13.0) SEC INR 1.0 (0.9-1.1) Sodium (135-145) mmol/L Potassium (3.3-5.1) mmol/L Chloride (96-108) mmol/L Carbon Dioxide (22-29) mmol/L Anion Gap (12-20) BUN (9-16) mg/dL Creatinine (0.5-1.4) mg/dL Estim Creat Clear Calc Estimated GFR POC Glucose 106 (60-115) mg/dL Random Glucose (60-115) mg/dL Calcium (8.4-10.2) mg/dL Magnesium (1.6-2.6) mg/dL Total Bilirubin (0.0-1.0) mg/dL Direct Bilirubin (0.0-0.5) mg/dL AST (5-31) U/L ALT (0-31) U/L Alkaline Phosphatase (39-117) U/L Troponin I High Sens (<3.5-17.0) ng/L Total Protein (6.5-8.0) g/dL Albumin (3.5-5.0) g/dL Lipase (8-78) U/L Urine Color Urine Appearance Urine pH (5.0-8.0) Ur Specific [place] (1.005-1.025) Urine Protein (NEG-TRACE) MG/DL Urine Glucose (UA) (NEG) MG/DL Urine Ketones (NEG) MG/DL Urine Blood (NEG) Urine Nitrite (NEG) Ur Leukocyte Esterase (NEG) Urine RBC (0) /HPF Urine WBC (0-4) /HPF Ur Squamous Epith Cells /LPF Amorphous Sediment /LPF Urine Bacteria /LPF Hyaline Casts /LPF Urine Mucus /LPF Urine Yeast /HPF COVID-19 ([facility]) Negative (Negative) COVID-19 Clin Com See Note 07/11/21 Range/Units 05:28 WBC (4.8-10.8) X10*3/uL RBC (4.20-5.50) X10*6/uL Hgb (12.0-16.0) g/dl Hct (37.0-47.0) % MCV (80.0-98.0) fL MCH (27.0-33.0) pg MCHC (31.0-35.0) g/dl RDW (11.0-16.0) % Plt Count (160-400) X10*3/uL MPV (9.4-12.3) fL Immature Gran % (Auto) (0.0-0.4) % Neut % (Auto) (45-73) % Lymph % (Auto) (20-40) % [place] % (Auto) (2-11) % Eos % (Auto) (0-4) % Baso % (Auto) (0-2) % Lymph # (Auto) (1.2-4.9) X10*3/uL [place] # (Auto) (0.1-1.2) X10*3/uL Eos # (Auto) (0.0-0.4) X10*3/uL Baso # (Auto) (0.0-0.2) X10*3/uL Abs Immat Gran (auto) (0.00-0.03) X10*3/uL Absolute Neuts (auto) (2.0-8.3) x10*3/uL Absolute Nucleated RBC (0.0-0.012) X10*3/uL Nucleated RBC % (auto) (0.0-0.2) /100WBC PT (9.9-13.0) SEC INR (0.9-1.1) Sodium (135-145) mmol/L Potassium (3.3-5.1) mmol/L Chloride (96-108) mmol/L Carbon Dioxide (22-29) mmol/L Anion Gap (12-20) BUN (9-16) mg/dL Creatinine (0.5-1.4) mg/dL Estim Creat Clear Calc Estimated GFR POC Glucose (60-115) mg/dL Random Glucose (60-115) mg/dL Calcium (8.4-10.2) mg/dL Magnesium (1.6-2.6) mg/dL Total Bilirubin (0.0-1.0) mg/dL Direct Bilirubin (0.0-0.5) mg/dL AST (5-31) U/L ALT (0-31) U/L Alkaline Phosphatase (39-117) U/L Troponin I High Sens (<3.5-17.0) ng/L Total Protein (6.5-8.0) g/dL Albumin (3.5-5.0) g/dL Lipase (8-78) U/L Urine Color STRAW Urine Appearance CLEAR Urine pH 6.0 (5.0-8.0) Ur Specific [place] 1.020 (1.005-1.025) Urine Protein 3+ H (NEG-TRACE) MG/DL Urine Glucose (UA) 100 H (NEG) MG/DL Urine Ketones 5 (NEG) MG/DL Urine Blood TRACE (NEG) Urine Nitrite NEG (NEG) Ur Leukocyte Esterase NEG (NEG) Urine RBC 0-2 (0) /HPF Urine WBC 1-4 (0-4) /HPF Ur Squamous Epith Cells 3+ /LPF Amorphous Sediment 1+ /LPF Urine Bacteria TRACE /LPF Hyaline Casts 0-2 /LPF Urine Mucus 2+ /LPF Urine Yeast 1+ /HPF COVID-19 ([facility]) (Negative) COVID-19 Clin Com ECG Data Attestation: I personally reviewed and interpreted this ECG as follows: Prior ECG tracings: available for review (12/03/2020 no acute changes on comparison) Interpretation: Normal sinus rhythm, HR -69, no STEMI, ID/QRS/QTC are within normal limits. Discharge Plan Discharge Clinical Impression: WALLY (acute kidney injury), Chronic kidney disease Patient Disposition: Admitted As Inpatient Prescriptions: No Action carvedilol 6.25 mg tablet 6.25 mg PO BID 90 Days Qty: 180 RF: 3 amlodipine 10 mg tablet 10 mg PO QAM 90 Days Qty: 90 RF: 3 ascorbic acid (vitamin C) [Vitamin C] 500 mg tablet 1 tab PO BID RF: 0 montelukast 10 mg tablet 1 tab PO BEDTIME RF: 0 calcitriol 0.25 mcg capsule 1 cap PO Q OTHER DAY RF: 0 melatonin 5 mg tablet 1 tab PO BEDTIME RF: 0 aspirin 81 mg tablet,delayed release (DR/EC) 81 mg PO DAILY RF: 0 atorvastatin 80 mg tablet 80 mg PO DAILY RF: 0 hydralazine 10 mg tablet 10 mg PO BID RF: 0 ferrous sulfate 325 mg (65 mg iron) tablet 325 mg PO BIDWM RF: 0 pantoprazole 40 mg tablet,delayed release (DR/EC) 40 mg PO DAILY RF: 0 Lantus U-100 Insulin 100 unit/mL solution See Rx Instructions subcut QPM RF: 0 sertraline 100 mg tablet 150 mg PO DAILY RF: 0 furosemide 40 mg tablet 40 mg PO BID RF: 0 PMFSH Past Medical History Source: nursing notes reviewed Medical History Asthma Atherosclerotic cardiovascular disease Chronic kidney disease Depression DJD (degenerative joint disease) Essential hypertension Hypercalcemia SHELIA (obstructive sleep apnea) Other and unspecified hyperlipidemia Type 2 diabetes mellitus with unspecified complications Surgical History History of coronary artery bypass graft (~2018) Family History Family History Father Cardiovascular disease Hypertension Mother Cardiovascular disease Hypertension Social History Social History Household Members Other:: with son Housing: Apartment Do you presently have visiting nurse or other home services: Yes Alcohol intake: never Advance Directives: Yes Advance Directives on File: Yes Advance Directives Date on File: 12/03/20 service: No 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al status: disabled
[2021-07-11 04:51] LABS: Prothrombin Time 11.1 SEC (9.9-13.0)
[2021-07-11] MEDS: Acetaminophen 325 MG TABLET 975 MG PO (05:00)
[2021-07-11] MEDS: Lidocaine 4 % Patch ADH..PATCH 1 PATCH TRANSDERMA (05:00)
[2021-07-11 05:01] LABS: COVID-19 Test Negative (Negative)
[2021-07-11 05:09] LABS: Glucose, Whole Blood 106 mg/dL (60-115)
[2021-07-11 05:34] LABS: Appearance Urine CLEAR; Color Urine STRAW; Glucose Urine UA 100 MG/DL (NEG); Leukocyte Esterase Urine NEG (NEG); Nitrite Urine NEG (NEG); UACC Culture Trigger NO; Urine Blood TRACE (NEG); Urine Ketones 5 MG/DL (NEG); Urine Protein 3+ MG/DL (NEG-TRACE)
[2021-07-11 05:46] LABS: RBC Urine 0-2 /HPF (0); Squamous Epithelial Cell Urine 3+ /LPF
[2021-07-11 05:47] LABS: Amorphous Sediment Urine 1+ /LPF; Bacteria Urine TRACE /LPF; Hyaline Casts Urine 0-2 /LPF; Mucus Urine 2+ /LPF
--- NOTE | 2021-07-11 10:59 | PHA.MEDREC ---
Pharmacy Consult ? Medication Reconciliation Pharmacy has completed the medication reconciliation. PT SLEEPING AND NOT WAKING UP WHEN CALLING HER NAME. CONTACTED DAUGHER BUT DID NOT ANSWER PHONE. MED REC COMPLETED PER CLAIM HISTORY
--- NOTE | 2021-07-11 12:20 | PM.CNNEP ---
History of Present Illness Reason for Consult Consult date: 07/11/21 Reason for consult: CKD 5 Chief Complaint Chief complaint: renal failure History of Present Illness Narrative: 66-year-old female who presents with underlying chronic kidney disease, SHELIA and states that for 2 weeks she has been having right lower back pain without diarrhea, nausea, vomiting, urinary pain/burning/frequency, shortness of breath, chest pain/palpitations, chills but reports subjective fevers.? She states that the thing that prompted her to come in this evening was that the pain just became too much. She has advanced CKD with Nephrotic range proteinuria Non adherent to therapy and follo up Last seen by NEphrology in November and cancelled her OP appoinments Now with worsening renal failure /Acidosis [facility] Past Medical History Medical History (Updated 07/24/21 @ 00:01 by Venkat Bynum) Asthma Atherosclerotic cardiovascular disease Chronic kidney disease Depression DJD (degenerative joint disease) Edema Essential hypertension Hypercalcemia SHELIA (obstructive sleep apnea) Other and unspecified hyperlipidemia Type 2 diabetes mellitus with unspecified complications Family History Family History Father Cardiovascular disease Hypertension Mother Cardiovascular disease Hypertension Surgical History Surgical History History of coronary artery bypass graft (~2018) Social History Social History Household Members: Family Household Members Other:: with son Housing: Apartment Do you presently have visiting nurse or other home services: Yes Alcohol intake: never Patient Tobacco Use Status: Tobacco use Unknown Advance Directives Date on File: 12/03/20 service: No 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al status: disabled Meds Allergies Allergy/AdvReac Type Severity Reaction Status Date / Time No Known Allergies Allergy Verified 04/07/21 14:20 Active Medications: Current Medications Pharmacy Consult (Consult Rx Perform Med Rec) 1 each MISCELLANE ONCE PRN PRN Reason: Consult order Home Medications Medication Instructions Recorded Confirmed Last Taken Type aspirin 81 mg tablet,delayed 81 mg PO BEDTIME 06/10/20 07/11/21 Unknown History release atorvastatin 80 mg tablet 80 mg PO BEDTIME 06/10/20 07/11/21 Unknown History ferrous sulfate 325 mg (65 mg 325 mg PO BIDWM 06/10/20 07/11/21 Unknown History iron) tablet hydralazine 10 mg tablet 10 mg PO BID tab 06/10/20 07/11/21 Unknown History pantoprazole 40 mg tablet,delayed 40 mg PO DAILY@0630 06/10/20 07/11/21 Unknown History release sertraline 100 mg tablet 150 mg PO DAILY tab 06/10/20 07/11/21 Unknown History ascorbic acid (vitamin C) 500 mg 1 tab PO BID 12/03/20 07/11/21 Unknown History tablet (Vitamin C) calcitriol 0.25 mcg capsule 1 cap PO Q2D 12/03/20 07/11/21 Unknown History melatonin 5 mg tablet 1 tab PO BEDTIME 12/03/20 07/11/21 Unknown History montelukast 10 mg tablet 1 tab PO BEDTIME 12/03/20 07/11/21 Unknown History furosemide 40 mg tablet 120 mg PO BID tab 05/06/21 07/11/21 Unknown History albuterol sulfate 90 mcg/actuation 2 puff INHALATION Q4-6H PRN 07/11/21 07/11/21 Unknown History aerosol inhaler (ProAir HFA) amlodipine 10 mg tablet 10 mg PO DAILY 07/11/21 07/11/21 Unknown History cholecalciferol (vitamin D3) 25 1 tab PO DAILY 07/11/21 07/11/21 Unknown History mcg (1,000 unit) tablet docusate sodium 100 mg capsule 1 cap PO BID 07/11/21 07/11/21 Unknown History fluticasone propionate 110 2 puff INHALATION BID 07/11/21 07/11/21 Unknown History mcg/actuation HFA aerosol inhaler (Flovent HFA) insulin glargine 100 unit/mL (3 28 unit SUBCUT BEDTIME 07/11/21 07/11/21 Unknown History mL) subcutaneous pen (Lantus Solostar U-100 Insulin) Physical Exam Vital Signs: Last Vital Signs Temp 98.2 F 07/11/21 09:10 Pulse 74 07/11/21 11:44 Resp 18 07/11/21 11:44 BP 180/50 H 07/11/21 11:44 Pulse Ox 99 07/11/21 11:44 BMI result Body Mass Index 32.0 Const General: ill appearing Neck Neck: Yes supple and Yes no JVD Resp Effort & Inspection: normal respiratory effort Auscultation: clear to auscultation bilaterally Cardio Jugular venous distension: no JVD Heart sounds: no gallops and no rubs Skin General skin exam: dry skin, no petechiae and no purpura Neuro General: moves all extremities and no focal motor deficits Cranial nerves: Yes Midline tongue present Motor exam (neuro): no asterixis Results Lab Results Result Diagrams: 07/16/21 05:31 07/16/21 05:31 Lab results: Chemistry 07/11/21 02:41 Sodium 143 Potassium 5.0 Carbon Dioxide 17 L BUN 60 H Creatinine 8.52 H* Calcium 9.1 Hematology 07/11/21 02:41 WBC 7.0 Hgb 10.0 L Plt Count 236 Urinalysis 07/11/21 05:28 Urine Color STRAW Urine Appearance CLEAR Urine pH 6.0 Ur Specific [place] 1.020 Urine Protein 3+ H Urine Glucose (UA) 100 H Urine Ketones 5 Urine Blood TRACE Urine Nitrite NEG Ur Leukocyte Esterase NEG Urine RBC 0-2 Urine WBC 1-4 Ur Squamous Epith Cells 3+ Hyaline Casts 0-2 Assessment and Plan (1) Acute on chronic kidney failure: Qualifiers: Acute renal failure type: unspecified Chronic kidney disease stage: unspecified stage Qualified Code(s): N17.9 - Acute kidney failure, unspecified; N18.9 - Chronic kidney disease, unspecified Status: Resolved 66 yr old woman with advanced CKD approaching ESRD Although she might have a component of WALLY, I believe she has reached ESRD Suggest DC Lasix Start 1/2 NS at 50 cc/hr Add NaHCO3 650 mg PO TID Shall arrange for Permcath and HD tomorrow Procedures Date of Service Date of Service: 07/11/21
--- NOTE | 2021-07-11 13:05 | P.DS_ITS ---
DS: Providers Provider Date of Service: 07/11/21 Date of admission: 07/11/21 12:49 Primary care physician: Unknown Physician Consults: 07/11/21 09:54 Consult to Nephrology Routine Consulting Provider: Feliciano Baldwin Reason for consultation: ESRD Has provider been notified: No DS: Diagnosis Discharge Diagnosis (1) Acute on chronic kidney failure: Status: Acute DS: Summary Time Spent with Patient Time attestation: Total time spent providing and/or coordinating discharge services: Physical Exam Vital Signs: Vital Signs: Last Vital Signs Temp 98.2 F 07/11/21 09:10 Pulse 68 07/11/21 12:28 Resp 18 07/11/21 12:28 BP 182/65 H 07/11/21 12:28 Pulse Ox 97 07/11/21 12:28 BMI result Body Mass Index 32.0 DS: Data Data Completed and Pending Labs on day of discharge: Laboratory Results - last 24 hr 07/11/21 07/11/21 07/11/21 02:41 02:41 02:41 WBC 7.0 RBC 3.58 L Hgb 10.0 L Hct 33.4 L MCV 93.3 MCH 27.9 MCHC 29.9 L RDW 13.6 Plt Count 236 MPV 10.2 Immature Gran % (Auto) 0.4 Neut % (Auto) 79.0 H Lymph % (Auto) 15.2 L [place] % (Auto) 4.4 Eos % (Auto) 0.6 Baso % (Auto) 0.4 Lymph # (Auto) 1.1 L [place] # (Auto) 0.3 Eos # (Auto) 0.0 Baso # (Auto) 0.0 Abs Immat Gran (auto) 0.03 Absolute Neuts (auto) 5.6 Absolute Nucleated RBC 0.000 Nucleated RBC % (auto) 0.0 PT INR Sodium 143 Potassium 5.0 Chloride 115 H Carbon Dioxide 17 L Anion Gap 16 BUN 60 H Creatinine 8.52 H* Estim Creat Clear Calc 5.6 Estimated GFR 5 POC Glucose Random Glucose 55 L* Calcium 9.1 Magnesium 2.4 Total Bilirubin < 0.2 Direct Bilirubin < 0.2 AST 12 ALT 9 Alkaline Phosphatase 62 D Troponin I High Sens 14.5 Total Protein 5.7 L Albumin 2.9 L Lipase 38 Urine Color Urine Appearance Urine pH Ur Specific [place] Urine Protein Urine Glucose (UA) Urine Ketones Urine Blood Urine Nitrite Ur Leukocyte Esterase Urine RBC Urine WBC Ur Squamous Epith Cells Amorphous Sediment Urine Bacteria Hyaline Casts Urine Mucus Urine Yeast COVID-19 ([facility]) COVID-19 Clin Com 07/11/21 07/11/21 07/11/21 04:36 04:36 05:02 WBC RBC Hgb Hct MCV MCH MCHC RDW Plt Count MPV Immature Gran % (Auto) Neut % (Auto) Lymph % (Auto) [place] % (Auto) Eos % (Auto) Baso % (Auto) Lymph # (Auto) [place] # (Auto) Eos # (Auto) Baso # (Auto) Abs Immat Gran (auto) Absolute Neuts (auto) Absolute Nucleated RBC Nucleated RBC % (auto) PT 11.1 INR 1.0 Sodium Potassium Chloride Carbon Dioxide Anion Gap BUN Creatinine Estim Creat Clear Calc Estimated GFR POC Glucose 106 Random Glucose Calcium Magnesium Total Bilirubin Direct Bilirubin AST ALT Alkaline Phosphatase Troponin I High Sens Total Protein Albumin Lipase Urine Color Urine Appearance Urine pH Ur Specific [place] Urine Protein Urine Glucose (UA) Urine Ketones Urine Blood Urine Nitrite Ur Leukocyte Esterase Urine RBC Urine WBC Ur Squamous Epith Cells Amorphous Sediment Urine Bacteria Hyaline Casts Urine Mucus Urine Yeast COVID-19 ([facility]) Negative COVID-19 Clin Com See Note 07/11/21 05:28 WBC RBC Hgb Hct MCV MCH MCHC RDW Plt Count MPV Immature Gran % (Auto) Neut % (Auto) Lymph % (Auto) [place] % (Auto) Eos % (Auto) Baso % (Auto) Lymph # (Auto) [place] # (Auto) Eos # (Auto) Baso # (Auto) Abs Immat Gran (auto) Absolute Neuts (auto) Absolute Nucleated RBC Nucleated RBC % (auto) PT INR Sodium Potassium Chloride Carbon Dioxide Anion Gap BUN Creatinine Estim Creat Clear Calc Estimated GFR POC Glucose Random Glucose Calcium Magnesium Total Bilirubin Direct Bilirubin AST ALT Alkaline Phosphatase Troponin I High Sens Total Protein Albumin Lipase Urine Color STRAW Urine Appearance CLEAR Urine pH 6.0 Ur Specific [place] 1.020 Urine Protein 3+ H Urine Glucose (UA) 100 H Urine Ketones 5 Urine Blood TRACE Urine Nitrite NEG Ur Leukocyte Esterase NEG Urine RBC 0-2 Urine WBC 1-4 Ur Squamous Epith Cells 3+ Amorphous Sediment 1+ Urine Bacteria TRACE Hyaline Casts 0-2 Urine Mucus 2+ Urine Yeast 1+ COVID-19 ([facility]) COVID-19 Clin Com Discharge Plan Discharge Referrals: Physician,Unknown J [Primary Care Provider] - 1 Week Discharge Medications: No Action carvedilol 6.25 mg tablet 6.25 mg PO BID 90 Days Qty: 180 RF: 3 ascorbic acid (vitamin C) [Vitamin C] 500 mg tablet 1 tab PO BID RF: 0 montelukast 10 mg tablet 1 tab PO BEDTIME RF: 0 calcitriol 0.25 mcg capsule 1 cap PO Q2D RF: 0 melatonin 5 mg tablet 1 tab PO BEDTIME RF: 0 docusate sodium 100 mg capsule 1 cap PO BID RF: 0 albuterol sulfate [ProAir HFA] 90 mcg/actuation Hfa Aerosol Inhaler 2 puff INHALATION Q4-6H PRN (Reason: Shortness Of Breath) RF: 0 Flovent HFA 110 mcg/actuation HFA aerosol inhaler 2 puff inhalation BID RF: 0 cholecalciferol (vitamin D3) 25 mcg (1,000 unit) tablet 1 tab PO DAILY RF: 0 Lantus Solostar U-100 Insulin 100 unit/mL (3 mL) insulin pen 28 unit subcut BEDTIME RF: 0 amlodipine 10 mg tablet 10 mg PO DAILY RF: 0 aspirin 81 mg tablet,delayed release (DR/EC) 81 mg PO BEDTIME RF: 0 atorvastatin 80 mg tablet 80 mg PO BEDTIME RF: 0 hydralazine 10 mg tablet 10 mg PO BID RF: 0 ferrous sulfate 325 mg (65 mg iron) tablet 325 mg PO BIDWM RF: 0 pantoprazole 40 mg tablet,delayed release (DR/EC) 40 mg PO DAILY@0630 RF: 0 sertraline 100 mg tablet 150 mg PO DAILY RF: 0 furosemide 40 mg tablet 120 mg PO BID RF: 0
--- NOTE | 2021-07-11 13:11 | P.HPHOSP_ITS ---
History of Present Illness Date of Service: 07/11/21 66-year-old female presents initially to [facility] ER with complaints of right lower back pain. Initial workup with CT scan failed to demonstrate any acute pathology. Routine lab work demonstrated a creatinine that was 5.59 and has risen to 8.52 over the last 7 months. Per patient's recount she is poorly compliant with renal follow-up. She states she has been free of symptoms including swelling, dysuric symptoms chest pain shortness of breath. she will be admitted for likely PermCath placement followed by HD Review of Systems Review of Systems: denies chest pain Denies shortness of breath Denies nausea vomiting diarrhea [facility] Medical History (Updated 07/11/21 @ 13:19 by Kaden Rodas DO) Asthma Atherosclerotic cardiovascular disease Chronic kidney disease Depression DJD (degenerative joint disease) Essential hypertension Hypercalcemia SHELIA (obstructive sleep apnea) Other and unspecified hyperlipidemia Type 2 diabetes mellitus with unspecified complications Family History Father Cardiovascular disease Hypertension Mother Cardiovascular disease Hypertension Surgical History History of coronary artery bypass graft (~2018) Social History Household Members Other:: with son Housing: Apartment Do you presently have visiting nurse or other home services: Yes Alcohol intake: never Patient Tobacco Use Status: Tobacco use Unknown Advance Directives: Yes Advance Directives on File: Yes Advance Directives Date on File: 12/03/20 service: No 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al status: disabled Meds Allergies Allergy/AdvReac Type Severity Reaction Status Date / Time No Known Allergies Allergy Verified 04/07/21 14:20 Active Medications: Current Medications Acetaminophen (Acetaminophen 325 Mg Tablet) 650 mg PO Q6H PRN PRN Reason: Pain, Mild (Pain Scale 1-3) Albuterol Sulfate (Albuterol Sulfate 90 Mcg 8 Gm Inhaler) 2 puff INHALE Q4H PRN PRN Reason: Shortness Of Breath Amlodipine Besylate (Amlodipine Besylate 10 Mg Tablet) 10 mg PO DAILY [facility]; Protocol Ascorbic Acid (Ascorbic Acid 500 Mg Tablet) 500 mg PO BID [facility] Aspirin (Aspirin Enteric Coated 81 Mg Tablet.) 81 mg PO BEDTIME [facility] Atorvastatin Calcium (Atorvastatin Calcium 80 Mg Tablet) 80 mg PO BEDTIME [facility] Calcitriol (Calcitriol 0.25 Mcg Capsule) 0.25 mcg PO Q2D [facility] Carvedilol (Carvedilol 6.25 Mg Tablet) 6.25 mg PO BID [facility]; Protocol Docusate Sodium (Docusate Sodium 100 Mg Capsule) 100 mg PO BID [facility] Heparin Sodium (Porcine) (Heparin Sodium,Porcine 5,000 Unit/Ml Vial) 5,000 unit SUBCUT Q8H [facility] Hydralazine HCl (Hydralazine Hcl 10 Mg Tablet) 10 mg PO BID [facility]; Protocol Sodium Chloride () 1,000 mls @ 50 mls/hr IVCONT .Q20H [facility] Insulin Glargine (Insulin Glargine,Hum.Rec.Anlog 100 Unit/Ml 10 Ml Vial) 28 unit SUBCUT BEDTIME [facility] Melatonin (Melatonin 3 Mg Tablet) 6 mg PO BEDTIME PRN PRN Reason: Insomnia Montelukast Sodium (Montelukast Sodium 10 Mg Tablet) 10 mg PO BEDTIME [facility] Non-Formulary Medication (Ferrous Sulfate) 325 mg PO BIDWM [facility] Non-Formulary Medication (Fluticasone Propionate [Flovent Hfa]) 2 puff INHALE BID [facility] Non-Formulary Medication (Melatonin) 1 tab PO BEDTIME [facility] Non-Formulary Medication (Pantoprazole) 40 mg PO DAILY@0630 [facility] Pharmacy Consult (Consult Rx Perform Med Rec) 1 each MISCELLANE ONCE PRN PRN Reason: Consult order Sertraline HCl (Sertraline Hcl 50 Mg Tablet) 150 mg PO DAILY [facility] Sodium Bicarbonate (Sodium Bicarbonate 650 Mg Tablet) 650 mg PO TID ONE Stop: 07/11/21 12:59 Sodium Chloride (0.9 % Sodium Chloride Flush 3 Ml Syringe) 3 ml IVFLUSH QSHIFT [facility] Vitamin D (Cholecalciferol (Vitamin D3) 25 Mcg Tablet) 25 mcg PO DAILY [facility] Home Medications Medication Instructions Recorded Confirmed Last Taken Type aspirin 81 mg tablet,delayed 81 mg PO BEDTIME 06/10/20 07/11/21 Unknown History release atorvastatin 80 mg tablet 80 mg PO BEDTIME 06/10/20 07/11/21 Unknown History ferrous sulfate 325 mg (65 mg 325 mg PO BIDWM 06/10/20 07/11/21 Unknown History iron) tablet hydralazine 10 mg tablet 10 mg PO BID tab 06/10/20 07/11/21 Unknown History pantoprazole 40 mg tablet,delayed 40 mg PO DAILY@0630 06/10/20 07/11/21 Unknown History release sertraline 100 mg tablet 150 mg PO DAILY tab 06/10/20 07/11/21 Unknown History ascorbic acid (vitamin C) 500 mg 1 tab PO BID 12/03/20 07/11/21 Unknown History tablet (Vitamin C) calcitriol 0.25 mcg capsule 1 cap PO Q2D 12/03/20 07/11/21 Unknown History melatonin 5 mg tablet 1 tab PO BEDTIME 12/03/20 07/11/21 Unknown History montelukast 10 mg tablet 1 tab PO BEDTIME 12/03/20 07/11/21 Unknown History furosemide 40 mg tablet 120 mg PO BID tab 05/06/21 07/11/21 Unknown History albuterol sulfate 90 mcg/actuation 2 puff INHALATION Q4-6H PRN 07/11/21 07/11/21 Unknown History aerosol inhaler (ProAir HFA) amlodipine 10 mg tablet 10 mg PO DAILY 07/11/21 07/11/21 Unknown History cholecalciferol (vitamin D3) 25 1 tab PO DAILY 07/11/21 07/11/21 Unknown History mcg (1,000 unit) tablet docusate sodium 100 mg capsule 1 cap PO BID 07/11/21 07/11/21 Unknown History fluticasone propionate 110 2 puff INHALATION BID 07/11/21 07/11/21 Unknown History mcg/actuation HFA aerosol inhaler (Flovent HFA) insulin glargine 100 unit/mL (3 28 unit SUBCUT BEDTIME 07/11/21 07/11/21 Unknown History mL) subcutaneous pen (Lantus Solostar U-100 Insulin) Physical Exam Vital Signs and Narrative: Vital Signs: Last Vital Signs Temp 98.2 F 07/11/21 09:10 Pulse 68 07/11/21 12:28 Resp 18 07/11/21 12:28 BP 182/65 H 07/11/21 12:28 Pulse Ox 97 07/11/21 12:28 BMI result Body Mass Index 32.0 Const: Other: awake alert no acute distress ill-appearing HENMT: Other: mucous membranes dry Resp: Other: clear to auscultation bilaterally no rales rhonchi or wheezes Cardio: Other: no S4; positive S1-S2; no S3 murmurs rubs or gallops GI: Other: soft nontender nondistended normoactive bowel sounds. Neuro: Other: cranial nerves 2-12 grossly intact as tested. Motor is 5/5 as tested all extremities. Sensation intact. Cognition appropriate Extrem: Other: no edema bilateral Results Labs CBC and Chem 7: 07/11/21 02:41 07/11/21 02:41 Labs: Laboratory Results - last 24 hr 07/11/21 07/11/21 07/11/21 02:41 02:41 02:41 MCV 93.3 MCH 27.9 MCHC 29.9 L RDW 13.6 Plt Count 236 MPV 10.2 Immature Gran % (Auto) 0.4 Neut % (Auto) 79.0 H Lymph % (Auto) 15.2 L [place] % (Auto) 4.4 Eos % (Auto) 0.6 Baso % (Auto) 0.4 Lymph # (Auto) 1.1 L [place] # (Auto) 0.3 Eos # (Auto) 0.0 Baso # (Auto) 0.0 Abs Immat Gran (auto) 0.03 Absolute Neuts (auto) 5.6 Absolute Nucleated RBC 0.000 Nucleated RBC % (auto) 0.0 PT INR Anion Gap 16 Estim Creat Clear Calc 5.6 Estimated GFR 5 POC Glucose Random Glucose 55 L* Calcium 9.1 Magnesium 2.4 Total Bilirubin < 0.2 Direct Bilirubin < 0.2 AST 12 ALT 9 Alkaline Phosphatase 62 D Troponin I High Sens 14.5 Total Protein 5.7 L Albumin 2.9 L Lipase 38 Urine Color Urine Appearance Urine pH Ur Specific [place] Urine Protein Urine Glucose (UA) Urine Ketones Urine Blood Urine Nitrite Ur Leukocyte Esterase Urine RBC Urine WBC Ur Squamous Epith Cells Amorphous Sediment Urine Bacteria Hyaline Casts Urine Mucus Urine Yeast COVID-19 ([facility]) COVID-19 Clin Com 07/11/21 07/11/21 07/11/21 04:36 04:36 05:02 MCV MCH MCHC RDW Plt Count MPV Immature Gran % (Auto) Neut % (Auto) Lymph % (Auto) [place] % (Auto) Eos % (Auto) Baso % (Auto) Lymph # (Auto) [place] # (Auto) Eos # (Auto) Baso # (Auto) Abs Immat Gran (auto) Absolute Neuts (auto) Absolute Nucleated RBC Nucleated RBC % (auto) PT 11.1 INR 1.0 Anion Gap Estim Creat Clear Calc Estimated GFR POC Glucose 106 Random Glucose Calcium Magnesium Total Bilirubin Direct Bilirubin AST ALT Alkaline Phosphatase Troponin I High Sens Total Protein Albumin Lipase Urine Color Urine Appearance Urine pH Ur Specific [place] Urine Protein Urine Glucose (UA) Urine Ketones Urine Blood Urine Nitrite Ur Leukocyte Esterase Urine RBC Urine WBC Ur Squamous Epith Cells Amorphous Sediment Urine Bacteria Hyaline Casts Urine Mucus Urine Yeast COVID-19 ([facility]) Negative COVID-19 Clin Com See Note 07/11/21 05:28 MCV MCH MCHC RDW Plt Count MPV Immature Gran % (Auto) Neut % (Auto) Lymph % (Auto) [place] % (Auto) Eos % (Auto) Baso % (Auto) Lymph # (Auto) [place] # (Auto) Eos # (Auto) Baso # (Auto) Abs Immat Gran (auto) Absolute Neuts (auto) Absolute Nucleated RBC Nucleated RBC % (auto) PT INR Anion Gap Estim Creat Clear Calc Estimated GFR POC Glucose Random Glucose Calcium Magnesium Total Bilirubin Direct Bilirubin AST ALT Alkaline Phosphatase Troponin I High Sens Total Protein Albumin Lipase Urine Color STRAW Urine Appearance CLEAR Urine pH 6.0 Ur Specific [place] 1.020 Urine Protein 3+ H Urine Glucose (UA) 100 H Urine Ketones 5 Urine Blood TRACE Urine Nitrite NEG Ur Leukocyte Esterase NEG Urine RBC 0-2 Urine WBC 1-4 Ur Squamous Epith Cells 3+ Amorphous Sediment 1+ Urine Bacteria TRACE Hyaline Casts 0-2 Urine Mucus 2+ Urine Yeast 1+ COVID-19 ([facility]) COVID-19 Clin Com Imaging Radiologist's Impressions: Impressions Chest X-Ray 07/11/21 03:40 IMPRESSION: No acute cardiopulmonary findings. Abdomen/Pelvis CT 07/11/21 05:20 IMPRESSION: 1. Suboptimal assessment of some regions due to motion artifact. No acute findings identified in the chest, abdomen, or pelvis. 2. Mild cardiomegaly. Chest CT 07/11/21 05:20 IMPRESSION: 1. Suboptimal assessment of some regions due to motion artifact. No acute findings identified in the chest, abdomen, or pelvis. 2. Mild cardiomegaly. Assessment and Plan (1) Acute on chronic kidney failure: Qualifiers: Acute renal failure type: unspecified Chronic kidney disease stage: unspecified stage Qualified Code(s): N17.9 - Acute kidney failure, unspecified; N18.9 - Chronic kidney disease, unspecified Status: Acute (2) Atherosclerotic cardiovascular disease: Status: Acute (3) Type 2 diabetes mellitus with unspecified complications: Status: Acute 66-year-old female with known CKD presents to the ER with back pain. Routine labs demonstrate a creatinine that has risen to 8.52 in the backdrop of type 2 diabetes and ASCD 1.End Stage Renal Disease Will D/C Lasix and start 0.45%NSS as per Renal along with oral BiCarb TID IR for permacath with subsequent HD in am 2.DMII Continue outpatient insulin regimen. Augment with sliding scale coverage... Adjust as indicated 3, HTN Continue Amlodipine/Hydralazine/Coreg Adjust as indicated 4. ASCD Coreg/statin/ASA 5. GERD PPI as ordered Full Code Sc Heparin Quality Stroke Does the patient have a stroke diagnosis?: No VTE Prior VTE?: No VTE Risk Level:: Medical - moderate - high VTE Device Contraindication: Treatment Not Indicated VTE Drug Contraindication: N/A - Med Ordered
[2021-07-11] MEDS: Acetaminophen 325 MG TABLET 650 MG PO (13:36)
[2021-07-11] MEDS: Heparin Sodium,Porcine 5,000 UNIT/ML VIAL 5000 UNIT SUBCUT ×2 (13:36→21:23)
[2021-07-11] MEDS: hydrALAZINE HCl 10 MG TABLET PO ×2 (13:37→21:23)
[2021-07-11] MEDS: Omeprazole 20 MG CAPSULE.DR PO (13:37)
[2021-07-11] MEDS: amLODIPine Besylate 10 MG TABLET PO (13:37)
[2021-07-11] MEDS: carvediloL 6.25 MG TABLET PO ×2 (13:37→21:23)
[2021-07-11 14:03] LABS: Glucose, Whole Blood 62 mg/dL (60-115)
[2021-07-11] MEDS: Sodium Chloride 0.45 % 1,000 ML 50 ML IVCONT (14:08)
[2021-07-11] MEDS: Sodium Bicarbonate 650 MG TABLET PO ×2 (16:18→21:22)
[2021-07-11] MEDS: Ferrous Sulfate 324 MG TABLET.DR PO (16:18)
[2021-07-11 16:35] LABS: Glucose, Whole Blood 131 mg/dL (60-115)
[2021-07-11] MEDS: Montelukast Sodium 10 MG TABLET PO (21:22)
[2021-07-11] MEDS: Atorvastatin Calcium 80 MG TABLET PO (21:22)
[2021-07-11] MEDS: Docusate Sodium 100 MG CAPSULE PO (21:23)
[2021-07-11] MEDS: Aspirin Enteric Coated 81 MG TABLET.DR PO (21:23)
[2021-07-11] MEDS: Ascorbic Acid 500 MG TABLET PO (21:23)
[2021-07-11 21:31] LABS: Glucose, Whole Blood 153 mg/dL (60-115)
[2021-07-11] MEDS: Insulin Glargine,Hum.rec.anlog 100 UNIT/ML 10 ML VIAL 28 UNIT SUBCUT (21:35)
[2021-07-12] VITALS (7 sets, daily range): BP systolic 161–215; BP diastolic 72–98; PULSE 58–96; RESP 18–24; TEMP 36.2–36.8; O2SAT 70–99
[2021-07-12 04:49] LABS: MANUAL DIFF FLAG NO
[2021-07-12 04:52] LABS: Basophils Percent Auto 0.4 % (0-2); Eosinophils Absolute Auto 0.1 X10*3/uL (0.0-0.4); Eosinophils Percent Auto 1.8 % (0-4); Hematocrit 30.8 % (37.0-47.0); Hemoglobin 9.6 g/dl (12.0-16.0); Imm Gran Abs Auto 0.02 X10*3/uL (0.00-0.03); Imm Gran Pct Auto 0.4 % (0.0-0.4); Lymphocytes Absolute Auto 1.3 X10*3/uL (1.2-4.9); Lymphocytes Percent Auto 25.9 % (20-40); Mean Corpuscular HGB Conc 31.2 g/dl (31.0-35.0); Mean Corpuscular Hemoglobin 29.1 pg (27.0-33.0); Mean Corpuscular Volume 93.3 fL (80.0-98.0); Mean Platelet Volume 10.3 fL (9.4-12.3); Monocytes Absolute Auto 0.4 X10*3/uL (0.1-1.2); Monocytes Percent Auto 7.6 % (2-11); Neutrophils Absolute Auto 3.3 x10*3/uL (2.0-8.3); Neutrophils Percent Auto 63.9 % (45-73); Platelet Count 223 X10*3/uL (160-400); Red Cell Distribution Width 13.6 % (11.0-16.0); White Blood Count 5.1 X10*3/uL (4.8-10.8)
[2021-07-12 05:47] LABS: Alanine Aminotransferase 8 U/L (0-31); Albumin Level 2.4 g/dL (3.5-5.0); Alkaline Phosphatase 52 U/L (39-117); Anion Gap 14 (12-20); Aspartate Amino Transferase 9 U/L (5-31); Bilirubin Total < 0.2 mg/dL (0.0-1.0); Blood Urea Nitrogen 57 mg/dL (9-16); Calcium 8.4 mg/dL (8.4-10.2); Carbon Dioxide 18 mmol/L (22-29); Chloride 113 mmol/L (96-108); Creatinine Clr Calc Pharmacy 5.8; Estimated Glomerular Filt Rate 5; Glucose Fasting 75 mg/dL (60-99); Magnesium 2.3 mg/dL (1.6-2.6); Potassium 4.4 mmol/L (3.3-5.1); Sodium 141 mmol/L (135-145); Total Protein 4.8 g/dL (6.5-8.0)
--- NOTE | 2021-07-12 05:52 | PC.NURSE ---
CREATININE LEVEL OF 8.31 RECEIVED AND REPORTED TO HOSPITALIST VIA TIGER TEXT, AWAITIN IF ANY NEW ORDERS, NOTED MD READ MESSAGE
[2021-07-12] MEDS: Heparin Sodium,Porcine 5,000 UNIT/ML VIAL 5000 UNIT SUBCUT ×3 (05:59→20:13)
[2021-07-12 07:21] LABS: Glucose, Whole Blood 57 mg/dL (60-115)
[2021-07-12] MEDS: amLODIPine Besylate 10 MG TABLET PO (07:22)
[2021-07-12] MEDS: Sertraline HCL 50 MG TABLET 150 MG PO (07:22)
[2021-07-12] MEDS: Docusate Sodium 100 MG CAPSULE PO ×2 (07:22→20:12)
[2021-07-12] MEDS: Sodium Bicarbonate 650 MG TABLET PO ×3 (07:22→20:12)
[2021-07-12] MEDS: Cholecalciferol (Vitamin D3) 25 MCG TABLET PO (07:22)
[2021-07-12] MEDS: Omeprazole 20 MG CAPSULE.DR PO (07:23)
[2021-07-12] MEDS: hydrALAZINE HCl 10 MG TABLET PO ×2 (07:23→20:13)
[2021-07-12] MEDS: carvediloL 6.25 MG TABLET PO ×2 (07:23→20:13)
[2021-07-12] MEDS: calcitrioL 0.25 MCG CAPSULE PO (07:23)
[2021-07-12] MEDS: Ascorbic Acid 500 MG TABLET PO ×2 (07:23→20:12)
[2021-07-12] MEDS: Acetaminophen 325 MG TABLET 650 MG PO (07:30)
[2021-07-12 07:37] LABS: Glucose, Whole Blood 70 mg/dL (60-115)
[2021-07-12] MEDS: Ferrous Sulfate 324 MG TABLET.DR PO ×2 (08:48→16:34)
[2021-07-12] MEDS: Sodium Chloride 0.45 % 1,000 ML 50 ML IVCONT (09:29)
[2021-07-12] MEDS: oxyCODONE HCl Immed Release 5 MG TABLET PO ×2 (09:29→14:41)
[2021-07-12] MEDS: 0.9 % Sodium Chloride Flush 3 ML SYRINGE IVFLUSH ×2 (09:52→16:02)
[2021-07-12] MEDS: Fluticasone Propionate 100 MCG BLST.W.DEV 2 PUFF INHALE ×2 (09:52→19:41)
--- NOTE | 2021-07-12 11:32 | PM.PNNEP ---
Subjective Subjective Date of Service: 07/12/21 Interval history: Seen this AM. Events noted. All recent data reviewed Physical Exam Vital Signs: Vital Signs: Last Vital Signs Temp 97.5 F 07/12/21 07:00 Pulse 65 07/12/21 07:00 Resp 18 07/12/21 07:00 BP 209/89 H 07/12/21 07:00 Pulse Ox 97 07/12/21 07:00 BMI result Body Mass Index 32.0 Const: General: no acute distress Orientation/consciousness: patient oriented x3 Eyes: EOM: EOMs intact bilaterally Neck: Neck: Yes supple Resp: Auscultation: diminished lung sounds Cardio: Rate: regular rate GI: Palpation (GI): Soft to palpation Neuro: General: patient oriented x3 and moves all extremities Objective Data Labs CBC & Chem 7: 07/12/21 04:17 07/12/21 04:17 Labs: Laboratory Results - last 24 hr 07/11/21 07/11/21 07/11/21 14:00 16:31 21:26 WBC RBC Hgb Hct MCV MCH MCHC RDW Plt Count MPV Immature Gran % (Auto) Neut % (Auto) Lymph % (Auto) [place] % (Auto) Eos % (Auto) Baso % (Auto) Lymph # (Auto) [place] # (Auto) Eos # (Auto) Baso # (Auto) Abs Immat Gran (auto) Absolute Neuts (auto) Absolute Nucleated RBC Nucleated RBC % (auto) Sodium Potassium Chloride Carbon Dioxide Anion Gap BUN Creatinine Estim Creat Clear Calc Estimated GFR POC Glucose 62 131 H 153 H Fasting Glucose Calcium Phosphorus Magnesium Total Bilirubin AST ALT Alkaline Phosphatase Total Protein Albumin 07/12/21 07/12/21 07/12/21 04:17 04:17 07:06 WBC 5.1 RBC 3.30 L Hgb 9.6 L Hct 30.8 L MCV 93.3 MCH 29.1 MCHC 31.2 RDW 13.6 Plt Count 223 MPV 10.3 Immature Gran % (Auto) 0.4 Neut % (Auto) 63.9 Lymph % (Auto) 25.9 [place] % (Auto) 7.6 Eos % (Auto) 1.8 Baso % (Auto) 0.4 Lymph # (Auto) 1.3 [place] # (Auto) 0.4 Eos # (Auto) 0.1 Baso # (Auto) 0.0 Abs Immat Gran (auto) 0.02 Absolute Neuts (auto) 3.3 Absolute Nucleated RBC 0.000 Nucleated RBC % (auto) 0.0 Sodium 141 Potassium 4.4 Chloride 113 H Carbon Dioxide 18 L Anion Gap 14 BUN 57 H Creatinine 8.31 H* Estim Creat Clear Calc 5.8 Estimated GFR 5 POC Glucose 57 L* Fasting Glucose 75 Calcium 8.4 D Phosphorus 7.0 H Magnesium 2.3 Total Bilirubin < 0.2 AST 9 ALT 8 Alkaline Phosphatase 52 Total Protein 4.8 L Albumin 2.4 L 07/12/21 07:33 WBC RBC Hgb Hct MCV MCH MCHC RDW Plt Count MPV Immature Gran % (Auto) Neut % (Auto) Lymph % (Auto) [place] % (Auto) Eos % (Auto) Baso % (Auto) Lymph # (Auto) [place] # (Auto) Eos # (Auto) Baso # (Auto) Abs Immat Gran (auto) Absolute Neuts (auto) Absolute Nucleated RBC Nucleated RBC % (auto) Sodium Potassium Chloride Carbon Dioxide Anion Gap BUN Creatinine Estim Creat Clear Calc Estimated GFR POC Glucose 70 Fasting Glucose Calcium Phosphorus Magnesium Total Bilirubin AST ALT Alkaline Phosphatase Total Protein Albumin Procedures Date of Service Date of Service: 07/12/21 Assessment & Plan Assessment and plan (1) Acute on chronic kidney failure: Status: Acute Assessment and Plan: Has progressed to ESRD Due to initiate HD this admission Permcath ordered for tomorrow AM Dialysis ordered for tomorrow Hepatitis screen Needs calcium, PTH, Phos, 25 [place] vit D levels, Iron studies Outpatient HD spot requested Shall continue to closely follow up Time Spent With Patient Time: Total time spent is greater than 50% in coordination of care (as documented) at patient's floor/unit and/or counseling patient: Progress Note: Quality Stroke Does the patient have a stroke diagnosis?: No
--- NOTE | 2021-07-12 12:11 | MHC.CM.PN ---
CM RECEIVED A CALL FROM [employer]. THEY ARE WORKING ON SETTING UP HER OUTPATIENT HD AND NEEDED HER INSURANCE INFORMATION THEY ALSO INFORMED CM THEY WERE UNSURE IF PT WOULD BE GOING TO [place] OR [place]. THEY WILL CALL CM BACK LATER IN THE DAY WITH FINAL INFORMATION
[2021-07-12] MEDS: Morphine Sulfate 2 MG/ML CARTRIDGE IVPUSH (12:13)
--- NOTE | 2021-07-12 12:15 | MHC.CLN ---
NUTRITION SCHEDULED FOR PERMACATH AND TO BEGIN HEMODIALYSIS 07/13. DIET CHANGED PER DX DM AND ESRD=DIABETIC 1800 KCAL, 2 G PROTEIN, LOW POTASSIUM, LOW PHOSPHORUS.
[2021-07-12 12:58] LABS: Glucose, Whole Blood 165 mg/dL (60-115)
--- NOTE | 2021-07-12 15:28 | P.PNIM_ITS ---
Subjective Subjective Date of Service: 07/12/21 Interval History: no acute issues overnight. Ongoing issues with right low back pain all issues clean through interpreter for the deaf Review of Systems denies chest pain Denies shortness of breath Denies nausea vomiting diarrhea Physical Exam Vital Signs: Vital Signs: Last Vital Signs Temp 97.4 F 07/12/21 11:32 Pulse 60 07/12/21 11:32 Resp 20 07/12/21 11:32 BP 161/72 H 07/12/21 11:32 Pulse Ox 99 07/12/21 11:32 BMI result Body Mass Index 32.0 Const: Other: awake alert no acute distress ill-appearing HENMT: Other: mucous membranes dry Resp: Other: clear to auscultation bilaterally no rales rhonchi or wheezes Cardio: Other: no S4; positive S1-S2; no S3 murmurs rubs or gallops GI: Other: soft nontender nondistended normoactive bowel sounds. Neuro: Other: cranial nerves 2-12 grossly intact as tested. Motor is 5/5 as tested all extremities. Sensation intact. Cognition appropriate Extrem: Other: no edema bilateral Objective Data Active Medications Acetaminophen (Acetaminophen 325 Mg Tablet) 650 mg PO Q6H PRN PRN Reason: Pain, Mild (Pain Scale 1-3) Last Admin: 07/12/21 07:30 Dose: 650 mg Documented by: AKASH Albuterol Sulfate (Albuterol Sulfate 90 Mcg 8 Gm Inhaler) 2 puff INHALE Q4H PRN PRN Reason: Shortness Of Breath Amlodipine Besylate (Amlodipine Besylate 10 Mg Tablet) 10 mg PO DAILY [facility]; Protocol Last Admin: 07/12/21 07:22 Dose: 10 mg Documented by: AKASH Ascorbic Acid (Ascorbic Acid 500 Mg Tablet) 500 mg PO BID [facility] Last Admin: 07/12/21 07:23 Dose: 500 mg Documented by: AKASH Aspirin (Aspirin Enteric Coated 81 Mg Tablet.) 81 mg PO BEDTIME [facility] Last Admin: 07/11/21 21:23 Dose: 81 mg Documented by: NELSY Atorvastatin Calcium (Atorvastatin Calcium 80 Mg Tablet) 80 mg PO BEDTIME [facility] Last Admin: 07/11/21 21:22 Dose: 80 mg Documented by: NELSY Calcitriol (Calcitriol 0.25 Mcg Capsule) 0.25 mcg PO Q2D@0900 [facility] Last Admin: 07/12/21 07:23 Dose: 0.25 mcg Documented by: AKASH Carvedilol (Carvedilol 6.25 Mg Tablet) 6.25 mg PO BID [facility]; Protocol Last Admin: 07/12/21 07:23 Dose: 6.25 mg Documented by: AKASH Docusate Sodium (Docusate Sodium 100 Mg Capsule) 100 mg PO BID [facility] Last Admin: 07/12/21 07:22 Dose: 100 mg Documented by: AKASH Ferrous Sulfate (Ferrous Sulfate 324 Mg Tablet.Dr) 324 mg PO BIDWM [facility] Last Admin: 07/12/21 08:48 Dose: 324 mg Documented by: JOSE Fluticasone Propionate (Fluticasone Propionate 100 Mcg Blst.W.Dev) 2 puff INHALE RBID [facility] Last Admin: 07/12/21 09:52 Dose: 2 puff Documented by: AKASH Heparin Sodium (Porcine) (Heparin Sodium,Porcine 5,000 Unit/Ml Vial) 5,000 unit SUBCUT Q8H [facility] Last Admin: 07/12/21 12:13 Dose: 5,000 unit Documented by: AKASH Heparin Sodium (Porcine) (Heparin Sodium,Porcine 5,000 Unit/Ml Vial) 5,000 unit INTRACATH ONCE ONE Stop: 07/13/21 06:28 Hydralazine HCl (Hydralazine Hcl 10 Mg Tablet) 10 mg PO BID [facility]; Protocol Last Admin: 07/12/21 07:23 Dose: 10 mg Documented by: AKASH Sodium Chloride () 1,000 mls @ 50 mls/hr IVCONT .Q20H [facility] Last Admin: 07/12/21 09:29 Dose: 50 mls/hr Documented by: SAJAN Insulin Glargine (Insulin Glargine,Hum.Rec.Anlog 100 Unit/Ml 10 Ml Vial) 28 unit SUBCUT BEDTIME [facility] Last Admin: 07/11/21 21:35 Dose: 28 unit Documented by: NELSY Melatonin (Melatonin 3 Mg Tablet) 6 mg PO BEDTIME PRN PRN Reason: Insomnia Montelukast Sodium (Montelukast Sodium 10 Mg Tablet) 10 mg PO BEDTIME [facility] Last Admin: 12/12/21 21:22 Dose: 10 mg Documented by: NELSY Morphine Sulfate (Morphine Sulfate 2 Mg/Ml Cartridge) 2 mg IVPUSH Q4H [facility]N; Protocol PRN Reason: Pain, Moderate (Pain Scale 4-6 Omeprazole (Omeprazole 20 Mg Capsule.Dr) 20 mg PO DAILY@0630 [facility] Last Admin: 07/12/21 07:23 Dose: 20 mg Documented by: AKASH Oxycodone HCl (Oxycodone Hcl Immed Release 5 Mg Tablet) 5 mg PO Q6H PRN PRN Reason: Pain, Moderate (Pain Scale 4-6 Last Admin: 07/12/21 14:41 Dose: 5 mg Documented by: SAJAN Pharmacy Consult (Consult Rx Perform Med Rec) 1 each MISCELLANE ONCE PRN PRN Reason: Consult order Sertraline HCl (Sertraline Hcl 50 Mg Tablet) 150 mg PO DAILY [facility] Last Admin: 07/12/21 07:22 Dose: 150 mg Documented by: AKASH Sodium Bicarbonate (Sodium Bicarbonate 650 Mg Tablet) 650 mg PO TID [facility] Last Admin: 07/12/21 14:41 Dose: 650 mg Documented by: SAJAN Sodium Chloride (0.9 % Sodium Chloride Flush 3 Ml Syringe) 3 ml IVFLUSH QSHIFT [facility] Last Admin: 07/12/21 09:52 Dose: 3 ml Documented by: AKASH Vitamin D (Cholecalciferol (Vitamin D3) 25 Mcg Tablet) 25 mcg PO DAILY [facility] Last Admin: 07/12/21 07:22 Dose: 25 mcg Documented by: AKASH Labs CBC & Chem 7: 07/12/21 04:17 07/12/21 04:17 Labs: Laboratory Results - last 24 hr 07/11/21 07/11/21 07/12/21 16:31 21:26 04:17 MCV MCH MCHC RDW Plt Count MPV Immature Gran % (Auto) Neut % (Auto) Lymph % (Auto) [place] % (Auto) Eos % (Auto) Baso % (Auto) Lymph # (Auto) [place] # (Auto) Eos # (Auto) Baso # (Auto) Abs Immat Gran (auto) Absolute Neuts (auto) Absolute Nucleated RBC Nucleated RBC % (auto) Anion Gap 14 Estim Creat Clear Calc 5.8 Estimated GFR 5 POC Glucose 131 H 153 H Fasting Glucose 75 Calcium 8.4 D Phosphorus 7.0 H Magnesium 2.3 Total Bilirubin < 0.2 AST 9 ALT 8 Alkaline Phosphatase 52 Total Protein 4.8 L Albumin 2.4 L 07/12/21 07/12/21 07/12/21 04:17 07:06 07:33 MCV 93.3 MCH 29.1 MCHC 31.2 RDW 13.6 Plt Count 223 MPV 10.3 Immature Gran % (Auto) 0.4 Neut % (Auto) 63.9 Lymph % (Auto) 25.9 [place] % (Auto) 7.6 Eos % (Auto) 1.8 Baso % (Auto) 0.4 Lymph # (Auto) 1.3 [place] # (Auto) 0.4 Eos # (Auto) 0.1 Baso # (Auto) 0.0 Abs Immat Gran (auto) 0.02 Absolute Neuts (auto) 3.3 Absolute Nucleated RBC 0.000 Nucleated RBC % (auto) 0.0 Anion Gap Estim Creat Clear Calc Estimated GFR POC Glucose 57 L* 70 Fasting Glucose Calcium Phosphorus Magnesium Total Bilirubin AST ALT Alkaline Phosphatase Total Protein Albumin 07/12/21 11:31 MCV MCH MCHC RDW Plt Count MPV Immature Gran % (Auto) Neut % (Auto) Lymph % (Auto) [place] % (Auto) Eos % (Auto) Baso % (Auto) Lymph # (Auto) [place] # (Auto) Eos # (Auto) Baso # (Auto) Abs Immat Gran (auto) Absolute Neuts (auto) Absolute Nucleated RBC Nucleated RBC % (auto) Anion Gap Estim Creat Clear Calc Estimated GFR POC Glucose 165 H Fasting Glucose Calcium Phosphorus Magnesium Total Bilirubin AST ALT Alkaline Phosphatase Total Protein Albumin Assessment and Plan (1) Type 2 diabetes mellitus with unspecified complications: Status: Acute (2) Acute on chronic kidney failure: Status: Acute Assessment and Plan: 66-year-old female with known CKD presents to the ER with back pain. Routine labs demonstrate a creatinine that has risen to 8.52 in the backdrop of type 2 diabetes and ASCD 1.End Stage Renal Disease Will D/C Lasix and start 0.45%NSS as per Renal along with oral BiCarb TID IR for permacath with subsequent HD in am NPO after midnoc 2.DMII Continue outpatient insulin regimen. Augment with sliding scale coverage... Adjust as indicated 3, HTN Continue Amlodipine/Hydralazine/Coreg Adjust as indicated 4. ASCD Coreg/statin/ASA 5. GERD PPI as ordered Full Code Sc Heparin Quality Stroke Does the patient have a stroke diagnosis?: No VTE Prior VTE?: No VTE Risk Level:: Medical - moderate - high VTE Device Contraindication: Treatment Not Indicated VTE Drug Contraindication: N/A - Med Ordered
--- NOTE | 2021-07-12 16:08 | MHC.CM.PN ---
CM MET WITH PTS SON WHO WAS AT BEDSIDE. 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
[2021-07-12 16:53] LABS: Glucose, Whole Blood 131 mg/dL (60-115)
[2021-07-12 20:08] LABS: Glucose, Whole Blood 144 mg/dL (60-115)
[2021-07-12] MEDS: Atorvastatin Calcium 80 MG TABLET PO (20:12)
[2021-07-12] MEDS: Aspirin Enteric Coated 81 MG TABLET.DR PO (20:12)
[2021-07-12] MEDS: Montelukast Sodium 10 MG TABLET PO (20:12)
[2021-07-12] MEDS: Melatonin 3 MG TABLET 6 MG PO (20:12)
[2021-07-12] MEDS: Insulin Glargine,Hum.rec.anlog 100 UNIT/ML 10 ML VIAL 28 UNIT SUBCUT (20:14)
[2021-07-13] VITALS (13 sets, daily range): BP systolic 120–174; BP diastolic 61–80; PULSE 62–74; RESP 14–24; TEMP 35.9–37.3; O2SAT 94–98
--- NOTE | 2021-07-13 04:00 | MHC.PIE ---
p; pt c/o n/v. note; no prn for nausea? i;dr nur notified; new order zofran prn for nausea e; will cont to monitor
[2021-07-13] MEDS: HYDROmorphone HCl 0.5 MG/0.5 ML SYRINGE 0.25 MG IVPUSH (04:08)
[2021-07-13] MEDS: Heparin Sodium,Porcine 5,000 UNIT/ML VIAL 5000 UNIT SUBCUT ×3 (04:09→21:15)
[2021-07-13] MEDS: ondansetron HCL 4 MG/2 ML VIAL IVPUSH (04:09)
[2021-07-13] MEDS: Sodium Chloride 0.45 % 1,000 ML 50 ML IVCONT (04:10)
[2021-07-13 05:44] LABS: MANUAL DIFF FLAG NO
[2021-07-13 05:49] LABS: Basophils Percent Auto 0.3 % (0-2); Eosinophils Absolute Auto 0.1 X10*3/uL (0.0-0.4); Eosinophils Percent Auto 1.6 % (0-4); Hematocrit 29.2 % (37.0-47.0); Imm Gran Abs Auto 0.04 X10*3/uL (0.00-0.03); Imm Gran Pct Auto 0.6 % (0.0-0.4); Lymphocytes Absolute Auto 1.2 X10*3/uL (1.2-4.9); Lymphocytes Percent Auto 17.3 % (20-40); Mean Corpuscular HGB Conc 30.8 g/dl (31.0-35.0); Mean Corpuscular Hemoglobin 28.5 pg (27.0-33.0); Mean Corpuscular Volume 92.4 fL (80.0-98.0); Mean Platelet Volume 10.2 fL (9.4-12.3); Monocytes Absolute Auto 0.4 X10*3/uL (0.1-1.2); Monocytes Percent Auto 5.9 % (2-11); Neutrophils Absolute Auto 5.3 x10*3/uL (2.0-8.3); Neutrophils Percent Auto 74.3 % (45-73); Platelet Count 236 X10*3/uL (160-400); Red Blood Count 3.16 X10*6/uL (4.20-5.50); Red Cell Distribution Width 13.4 % (11.0-16.0); White Blood Count 7.1 X10*3/uL (4.8-10.8)
[2021-07-13 06:22] LABS: Alanine Aminotransferase 9 U/L (0-31); Albumin Level 2.5 g/dL (3.5-5.0); Alkaline Phosphatase 52 U/L (39-117); Anion Gap 15 (12-20); Aspartate Amino Transferase 11 U/L (5-31); Bilirubin Total 0.2 mg/dL (0.0-1.0); Blood Urea Nitrogen 56 mg/dL (9-16); Calcium 8.6 mg/dL (8.4-10.2); Carbon Dioxide 18 mmol/L (22-29); Chloride 115 mmol/L (96-108); Estimated Glomerular Filt Rate 5; Glucose Fasting 47 mg/dL (60-99); Iron 54 mcg/dL (30-160); Magnesium 2.2 mg/dL (1.6-2.6); Percent Iron Saturation 36 % (15-50); Phosphorus 7.2 mg/dL (2.7-4.5); Potassium 5.1 mmol/L (3.3-5.1); Sodium 143 mmol/L (135-145); Total Iron Binding Capacity 152 mcg/dL (228-428); Unsaturated Iron Binding 98 ug/dL
[2021-07-13] MEDS: Dextrose 5 % 1,000 ML 50 ML IVCONT ×2 (06:35→21:13)
[2021-07-13 06:36] LABS: Vitamin D 25-OH Total 10.6 ng/mL (>30)
--- NOTE | 2021-07-13 06:43 | MHC.PIE ---
p; critical lab, glucose 47. note; pt nop for picc incertion today. i; dr nur notified;new order d5 w 50/ml/h. d50% 25gm iv now e; will cont to monitor
[2021-07-13 07:02] LABS: Glucose, Whole Blood 114 mg/dL (60-115)
[2021-07-13] MEDS: Fluticasone Propionate 100 MCG BLST.W.DEV 2 PUFF INHALE ×2 (07:41→19:48)
[2021-07-13] MEDS: Cholecalciferol (Vitamin D3) 25 MCG TABLET PO (08:32)
[2021-07-13] MEDS: Docusate Sodium 100 MG CAPSULE PO ×2 (08:32→21:16)
[2021-07-13] MEDS: Sertraline HCL 50 MG TABLET 150 MG PO (08:32)
[2021-07-13] MEDS: amLODIPine Besylate 10 MG TABLET PO (08:32)
[2021-07-13] MEDS: Sodium Bicarbonate 650 MG TABLET PO ×2 (08:32→21:16)
[2021-07-13] MEDS: carvediloL 6.25 MG TABLET PO ×2 (08:33→21:16)
[2021-07-13] MEDS: Ferrous Sulfate 324 MG TABLET.DR PO ×2 (08:33→17:17)
[2021-07-13] MEDS: Ascorbic Acid 500 MG TABLET PO ×2 (08:33→21:16)
[2021-07-13] MEDS: hydrALAZINE HCl 10 MG TABLET PO ×2 (08:33→21:16)
--- NOTE | 2021-07-13 09:50 | MHC.CM.PN ---
CM received a call from Ben at [facility]. Per Ben, Patient has a Monday//Monday HD slot at [facility] at [address] in [place]. CM will need to call [facility] AT [phone] at time of dc for arrival time and final details. CM will follow.
[2021-07-13] MEDS: Lidocaine HCl 1 % MPF 5 ML VIAL SUBCUT (10:21)
--- NOTE | 2021-07-13 11:41 | P.PNNP_ITS ---
Subjective Subjective Date of Service: 07/13/21 Interval history: Events noted. All recent data reviewed; S/P Permcath insertion. Due HD today Physical Exam Vital Signs: Vital Signs: Last Vital Signs Temp 97.7 F 07/13/21 11:13 Pulse 62 07/13/21 11:13 Resp 16 07/13/21 11:13 BP 174/71 H 07/13/21 11:13 Pulse Ox 95 07/13/21 11:13 BMI result Body Mass Index 32.0 Const: General: no acute distress Eyes: EOM: EOMs intact bilaterally Neck: Neck: Yes supple Resp: Auscultation: diminished lung sounds Cardio: Rate: regular rate GI: Palpation (GI): Soft to palpation Neuro: General: moves all extremities Objective Data Labs CBC & Chem 7: 07/13/21 05:28 07/13/21 05:28 Labs: Laboratory Results - last 24 hr 07/12/21 07/12/21 07/12/21 11:31 16:09 19:32 WBC RBC Hgb Hct MCV MCH MCHC RDW Plt Count MPV Immature Gran % (Auto) Neut % (Auto) Lymph % (Auto) [place] % (Auto) Eos % (Auto) Baso % (Auto) Lymph # (Auto) [place] # (Auto) Eos # (Auto) Baso # (Auto) Abs Immat Gran (auto) Absolute Neuts (auto) Absolute Nucleated RBC Nucleated RBC % (auto) Sodium Potassium Chloride Carbon Dioxide Anion Gap BUN Creatinine Estim Creat Clear Calc Estimated GFR POC Glucose 165 H 131 H 144 H Fasting Glucose Calcium Phosphorus Magnesium Iron TIBC % Saturation Unsat Iron Binding Total Bilirubin AST ALT Alkaline Phosphatase Total Protein Albumin 25-OH Vitamin D Total 07/13/21 07/13/21 07/13/21 05:28 05:28 06:57 WBC 7.1 RBC 3.16 L Hgb 9.0 L Hct 29.2 L MCV 92.4 MCH 28.5 MCHC 30.8 L RDW 13.4 Plt Count 236 MPV 10.2 Immature Gran % (Auto) 0.6 H Neut % (Auto) 74.3 H Lymph % (Auto) 17.3 L [place] % (Auto) 5.9 Eos % (Auto) 1.6 Baso % (Auto) 0.3 Lymph # (Auto) 1.2 [place] # (Auto) 0.4 Eos # (Auto) 0.1 Baso # (Auto) 0.0 Abs Immat Gran (auto) 0.04 H Absolute Neuts (auto) 5.3 Absolute Nucleated RBC 0.000 Nucleated RBC % (auto) 0.0 Sodium 143 Potassium 5.1 Chloride 115 H Carbon Dioxide 18 L Anion Gap 15 BUN 56 H Creatinine 8.05 H* Estim Creat Clear Calc 6.0 Estimated GFR 5 POC Glucose 114 Fasting Glucose 47 L* Calcium 8.6 Phosphorus 7.2 H Magnesium 2.2 Iron 54 TIBC 152 L % Saturation 36 Unsat Iron Binding 98 Total Bilirubin 0.2 AST 11 ALT 9 Alkaline Phosphatase 52 Total Protein 5.0 L Albumin 2.5 L 25-OH Vitamin D Total 10.6 Procedures Date of Service Date of Service: 07/13/21 Assessment & Plan Assessment and plan (1) Acute on chronic kidney failure: Status: Acute Assessment and Plan: Has progressed to ESRD Due to initiate HD today S/P Permcath this AM Dialysis ordered for today, tomorrow & day after Hepatitis screen Started Renvela 800 mg tid with meals Needs Vitamin D replacement Outpatient HD spot arranged in [facility] ( [phone]) Shall continue to closely follow up Time Spent With Patient Time: Total time spent is greater than 50% in coordination of care (as d ocumented) at patient's floor/unit and/or counseling patient: Progress Note: Quality Stroke Does the patient have a stroke diagnosis?: No
[2021-07-13] MEDS: Sevelamer Carbonate Tablet 800 MG TABLET PO ×2 (13:06→17:17)
--- NOTE | 2021-07-13 15:46 | P.PNIM_ITS ---
Subjective Subjective Date of Service: 07/13/21 Interval History: Permacath inserted today without incident; no acute issues overnight Review of Systems Denies chest pain Denies shortness of breath Denies nausea vomiting diarrhea Physical Exam Vital Signs: Vital Signs: Last Vital Signs Temp 97.7 F 07/13/21 11:50 Pulse 64 07/13/21 11:50 Resp 18 07/13/21 11:50 BP 120/70 07/13/21 11:50 Pulse Ox 98 07/13/21 11:50 BMI result Body Mass Index 32.0 Const: Other: awake alert no acute distress ill-appearing HENMT: Other: mucous membranes dry Resp: Other: clear to auscultation bilaterally no rales rhonchi or wheezes Cardio: Other: no S4; positive S1-S2; no S3 murmurs rubs or gallops GI: Other: soft nontender nondistended normoactive bowel sounds. Neuro: Other: cranial nerves 2-12 grossly intact as tested. Motor is 5/5 as tested all extremities. Sensation intact. Cognition appropriate Extrem: Other: no edema bilateral Objective Data Active Medications Acetaminophen (Acetaminophen 325 Mg Tablet) 650 mg PO Q6H PRN PRN Reason: Pain, Mild (Pain Scale 1-3) Last Admin: 07/12/21 07:30 Dose: 650 mg Documented by: AKASH Albuterol Sulfate (Albuterol Sulfate 90 Mcg 8 Gm Inhaler) 2 puff INHALE Q4H PRN PRN Reason: Shortness Of Breath Amlodipine Besylate (Amlodipine Besylate 10 Mg Tablet) 10 mg PO DAILY [facility]; Protocol Last Admin: 07/13/21 08:32 Dose: 10 mg Documented by: MAYA Ascorbic Acid (Ascorbic Acid 500 Mg Tablet) 500 mg PO BID [facility] Last Admin: 07/13/21 08:33 Dose: 500 mg Documented by: MAYA Aspirin (Aspirin Enteric Coated 81 Mg Tablet.) 81 mg PO BEDTIME [facility] Last Admin: 07/12/21 20:12 Dose: 81 mg Documented by: JANETH Atorvastatin Calcium (Atorvastatin Calcium 80 Mg Tablet) 80 mg PO BEDTIME [facility] Last Admin: 07/12/21 20:12 Dose: 80 mg Documented by: JANETH Calcitriol (Calcitriol 0.25 Mcg Capsule) 0.25 mcg PO Q2D@0900 [facility] Last Admin: 07/12/21 07:23 Dose: 0.25 mcg Documented by: AKASH Carvedilol (Carvedilol 6.25 Mg Tablet) 6.25 mg PO BID [facility]; Protocol Last Admin: 07/13/21 08:33 Dose: 6.25 mg Documented by: MAYA Docusate Sodium (Docusate Sodium 100 Mg Capsule) 100 mg PO BID [facility] Last Admin: 07/13/21 08:32 Dose: 100 mg Documented by: MAYA Ferrous Sulfate (Ferrous Sulfate 324 Mg Tablet.Dr) 324 mg PO BIDWM [facility] Last Admin: 07/13/21 08:33 Dose: 324 mg Documented by: MAYA Fluticasone Propionate (Fluticasone Propionate 100 Mcg Blst.W.Dev) 2 puff INHALE RBID [facility] Last Admin: 07/13/21 07:41 Dose: 2 puff Documented by: USMAN Heparin Sodium (Porcine) (Heparin Sodium,Porcine 5,000 Unit/Ml Vial) 5,000 unit SUBCUT Q8H [facility] Last Admin: 07/13/21 13:06 Dose: 5,000 unit Documented by: MAYA Heparin Sodium (Porcine) (Heparin Sodium,Porcine 5,000 Unit/Ml Vial) 5,000 unit INTRACATH ONCE ONE Stop: 07/14/21 06:37 Heparin Sodium (Porcine) (Heparin Sodium,Porcine 5,000 Unit/Ml Vial) 5,000 unit INTRACATH ONCE ONE Stop: 07/15/21 06:39 Hydralazine HCl (Hydralazine Hcl 10 Mg Tablet) 10 mg PO BID [facility]; Protocol Last Admin: 07/13/21 08:33 Dose: 10 mg Documented by: MAYA Hydromorphone HCl (Hydromorphone Hcl 0.5 Mg/0.5 Ml Syringe) 0.25 mg IVPUSH Q4H PRN; Protocol PRN Reason: Pain, Severe (Pain Scale 7-10) Last Admin: 07/13/21 04:08 Dose: 0.25 mg Documented by: JANETH Sodium Chloride () 1,000 mls @ 50 mls/hr IVCONT .Q20H [facility] Last Infusion: 07/13/21 06:35 Dose: 0 mls/hr Documented by: JANETH Dextrose (D5w) 1,000 mls @ 50 mls/hr IVCONT .Q20H [facility] Last Admin: 07/13/21 06:35 Dose: 50 mls/hr Documented by: JANETH Insulin Glargine (Insulin Glargine,Hum.Rec.Anlog 100 Unit/Ml 10 Ml Vial) 28 unit SUBCUT BEDTIME [facility] Last Admin: 07/12/21 20:14 Dose: 28 unit Documented by: JANETH Melatonin (Melatonin 3 Mg Tablet) 6 mg PO BEDTIME PRN PRN Reason: Insomnia Last Admin: 07/12/21 20:12 Dose: 6 mg Documented by: JANETH Montelukast Sodium (Montelukast Sodium 10 Mg Tablet) 10 mg PO BEDTIME [facility] Last Admin: 07/12/21 20:12 Dose: 10 mg Documented by: JANETH Omeprazole (Omeprazole 20 Mg Capsule.Dr) 20 mg PO DAILY@0630 [facility] Last Admin: 07/12/21 07:23 Dose: 20 mg Documented by: AKASH Ondansetron HCl (Ondansetron Hcl 4 Mg/2 Ml Vial) 4 mg IVPUSH Q8H PRN PRN Reason: Nausea and Vomiting Last Admin: 07/13/21 04:09 Dose: 4 mg Documented by: JANETH Oxycodone HCl (Oxycodone Hcl Immed Release 5 Mg Tablet) 5 mg PO Q6H PRN PRN Reason: Pain, Moderate (Pain Scale 4-6 Last Admin: 07/12/21 14:41 Dose: 5 mg Documented by: SAJAN Pharmacy Consult (Consult Rx Perform Med Rec) 1 each MISCELLANE ONCE PRN PRN Reason: Consult order Sertraline HCl (Sertraline Hcl 50 Mg Tablet) 150 mg PO DAILY [facility] Last Admin: 07/13/21 08:32 Dose: 150 mg Documented by: MAYA Sevelamer Carbonate (Sevelamer Carbonate Tablet 800 Mg Tablet) 800 mg PO TIDWM [facility] Last Admin: 07/13/21 13:06 Dose: 800 mg Documented by: MAYA Sodium Bicarbonate (Sodium Bicarbonate 650 Mg Tablet) 650 mg PO TID [facility] Last Admin: 07/13/21 15:26 Dose: Not Given Documented by: MAYA Non-Admin Reason: Off unit: Dialysis Sodium Chloride (0.9 % Sodium Chloride Flush 3 Ml Syringe) 3 ml IVFLUSH QSHIFT [facility] Last Admin: 07/13/21 08:34 Dose: Not Given Documented by: MAYA Non-Admin Reason: IV Running Vitamin D (Cholecalciferol (Vitamin D3) 25 Mcg Tablet) 25 mcg PO DAILY [facility] Last Admin: 07/13/21 08:32 Dose: 25 mcg Documented by: MAYA Labs CBC & Chem 7: 07/13/21 05:28 07/13/21 05:28 Labs: Laboratory Results - last 24 hr 07/12/21 07/12/21 07/13/21 16:09 19:32 05:28 MCV MCH MCHC RDW Plt Count MPV Immature Gran % (Auto) Neut % (Auto) Lymph % (Auto) [place] % (Auto) Eos % (Auto) Baso % (Auto) Lymph # (Auto) [place] # (Auto) Eos # (Auto) Baso # (Auto) Abs Immat Gran (auto) Absolute Neuts (auto) Absolute Nucleated RBC Nucleated RBC % (auto) Anion Gap 15 Estim Creat Clear Calc 6.0 Estimated GFR 5 POC Glucose 131 H 144 H Fasting Glucose 47 L* Calcium 8.6 Phosphorus 7.2 H Magnesium 2.2 Iron 54 TIBC 152 L % Saturation 36 Unsat Iron Binding 98 Total Bilirubin 0.2 AST 11 ALT 9 Alkaline Phosphatase 52 Total Protein 5.0 L Albumin 2.5 L 25-OH Vitamin D Total 10.6 07/13/21 07/13/21 05:28 06:57 MCV 92.4 MCH 28.5 MCHC 30.8 L RDW 13.4 Plt Count 236 MPV 10.2 Immature Gran % (Auto) 0.6 H Neut % (Auto) 74.3 H Lymph % (Auto) 17.3 L [place] % (Auto) 5.9 Eos % (Auto) 1.6 Baso % (Auto) 0.3 Lymph # (Auto) 1.2 [place] # (Auto) 0.4 Eos # (Auto) 0.1 Baso # (Auto) 0.0 Abs Immat Gran (auto) 0.04 H Absolute Neuts (auto) 5.3 Absolute Nucleated RBC 0.000 Nucleated RBC % (auto) 0.0 Anion Gap Estim Creat Clear Calc Estimated GFR POC Glucose 114 Fasting Glucose Calcium Phosphorus Magnesium Iron TIBC % Saturation Unsat Iron Binding Total Bilirubin AST ALT Alkaline Phosphatase Total Protein Albumin 25-OH Vitamin D Total Assessment and Plan (1) Acute on chronic kidney failure: Status: Acute (2) Type 2 diabetes mellitus with unspecified complications: Status: Acute Assessment and Plan: 66-year-old female with known CKD presents to the ER with back pain. Permacath today without incident 1.End Stage Renal Disease HD today,07/14,07/15. Outpt HD as per renal. Sevelamer/Vit D added by renal. 2.DMII Continue outpatient insulin regimen. Augment with sliding scale coverage... Adjust as indicated 3, HTN Continue Amlodipine/Hydralazine/Coreg Adjust as indicated 4. ASCD Coreg/statin/ASA 5. GERD PPI as ordered Full Code Sc Heparin Quality Stroke Does the patient have a stroke diagnosis?: No VTE Prior VTE?: No VTE Risk Level:: Medical - moderate - high VTE Device Contraindication: Treatment Not Indicated VTE Drug Contraindication: N/A - Med Ordered
[2021-07-13] MEDS: 0.9 % Sodium Chloride Flush 3 ML SYRINGE IVFLUSH ×2 (17:18→21:15)
[2021-07-13 21:13] LABS: Glucose, Whole Blood 188 mg/dL (60-115)
[2021-07-13] MEDS: Insulin Glargine,Hum.rec.anlog 100 UNIT/ML 10 ML VIAL 28 UNIT SUBCUT (21:15)
[2021-07-13] MEDS: Atorvastatin Calcium 80 MG TABLET PO (21:16)
[2021-07-13] MEDS: Aspirin Enteric Coated 81 MG TABLET.DR PO (21:16)
[2021-07-13] MEDS: Montelukast Sodium 10 MG TABLET PO (21:16)
[2021-07-14] VITALS (7 sets, daily range): BP systolic 120–178; BP diastolic 62–77; PULSE 68–78; RESP 16–18; TEMP 36.2–36.8; O2SAT 98–100
[2021-07-14 05:50] LABS: MANUAL DIFF FLAG NO
[2021-07-14] MEDS: Omeprazole 20 MG CAPSULE.DR PO (05:58)
[2021-07-14] MEDS: Heparin Sodium,Porcine 5,000 UNIT/ML VIAL 5000 UNIT SUBCUT ×3 (05:58→20:17)
[2021-07-14 06:37] LABS: Basophils Percent Auto 0.2 % (0-2); Eosinophils Absolute Auto 0.1 X10*3/uL (0.0-0.4); Eosinophils Percent Auto 2.1 % (0-4); Hematocrit 29.2 % (37.0-47.0); Hemoglobin 8.9 g/dl (12.0-16.0); Imm Gran Abs Auto 0.03 X10*3/uL (0.00-0.03); Imm Gran Pct Auto 0.6 % (0.0-0.4); Lymphocytes Absolute Auto 1.1 X10*3/uL (1.2-4.9); Lymphocytes Percent Auto 19.9 % (20-40); Mean Corpuscular HGB Conc 30.5 g/dl (31.0-35.0); Mean Corpuscular Hemoglobin 28.3 pg (27.0-33.0); Mean Corpuscular Volume 92.7 fL (80.0-98.0); Mean Platelet Volume 10.4 fL (9.4-12.3); Monocytes Absolute Auto 0.5 X10*3/uL (0.1-1.2); Monocytes Percent Auto 8.5 % (2-11); Neutrophils Absolute Auto 3.7 x10*3/uL (2.0-8.3); Neutrophils Percent Auto 68.7 % (45-73); Platelet Count 206 X10*3/uL (160-400); Red Blood Count 3.15 X10*6/uL (4.20-5.50); Red Cell Distribution Width 13.4 % (11.0-16.0); White Blood Count 5.3 X10*3/uL (4.8-10.8)
[2021-07-14 06:52] LABS: Alanine Aminotransferase < 6 U/L (0-31); Albumin Level 2.3 g/dL (3.5-5.0); Alkaline Phosphatase 58 U/L (39-117); Anion Gap 11 (12-20); Aspartate Amino Transferase 9 U/L (5-31); Bilirubin Total 0.2 mg/dL (0.0-1.0); Blood Urea Nitrogen 36 mg/dL (9-16); Calcium 8.2 mg/dL (8.4-10.2); Carbon Dioxide 20 mmol/L (22-29); Chloride 113 mmol/L (96-108); Creatinine Clr Calc Pharmacy 8.2; Estimated Glomerular Filt Rate 7; Glucose Fasting 64 mg/dL (60-99); Phosphorus 6.8 mg/dL (2.7-4.5); Potassium 4.3 mmol/L (3.3-5.1); Sodium 140 mmol/L (135-145); Total Protein 4.6 g/dL (6.5-8.0)
[2021-07-14] MEDS: oxyCODONE HCl Immed Release 5 MG TABLET PO (07:42)
[2021-07-14] MEDS: Sertraline HCL 50 MG TABLET 150 MG PO (07:43)
[2021-07-14] MEDS: Sodium Bicarbonate 650 MG TABLET PO ×3 (07:43→20:19)
[2021-07-14] MEDS: Sevelamer Carbonate Tablet 800 MG TABLET PO ×3 (07:43→17:53)
[2021-07-14] MEDS: hydrALAZINE HCl 10 MG TABLET PO ×2 (07:43→20:19)
[2021-07-14] MEDS: calcitrioL 0.25 MCG CAPSULE PO (07:43)
[2021-07-14] MEDS: Ascorbic Acid 500 MG TABLET PO ×2 (07:43→20:19)
[2021-07-14] MEDS: amLODIPine Besylate 10 MG TABLET PO (07:43)
[2021-07-14] MEDS: carvediloL 6.25 MG TABLET PO ×2 (07:44→20:18)
[2021-07-14] MEDS: Docusate Sodium 100 MG CAPSULE PO ×2 (07:44→20:19)
[2021-07-14] MEDS: Ferrous Sulfate 324 MG TABLET.DR PO ×2 (07:44→17:53)
[2021-07-14] MEDS: Cholecalciferol (Vitamin D3) 25 MCG TABLET PO (07:44)
[2021-07-14 09:42] LABS: HBS Num1 0.32 mIU/mL (0-7.99); HBc Num1 0.05 S/CO (0.00-0.79); HBsAGNum1 0.26 S/CO (0.00-0.99); Hepatitis B Core Antibody Nonreactive (Nonreactive); Hepatitis B Surface Antigen Negative (Negative); ~Hepatitis B Surface Antibody NONREACTIVE (Nonreactive)
--- NOTE | 2021-07-14 11:12 | HO.PM.IMPN ---
Subjective Subjective Date of Service: 07/14/21 Interval History: Doing well with dialysis; states feels better since started Review of Systems Denies chest pain Denies shortness of breath Denies nausea vomiting diarrhea Physical Exam Vital Signs: Vital Signs: Last Vital Signs Temp 97.2 F 07/14/21 07:47 Pulse 68 07/14/21 07:47 Resp 18 07/14/21 07:47 BP 120/70 07/14/21 07:47 Pulse Ox 99 07/14/21 07:47 BMI result Body Mass Index 32.0 Const: Other: awake alert no acute distress ill-appearing HENMT: Other: mucous membranes dry Resp: Other: clear to auscultation bilaterally no rales rhonchi or wheezes Cardio: Other: no S4; positive S1-S2; no S3 murmurs rubs or gallops GI: Other: soft nontender nondistended normoactive bowel sounds. Neuro: Other: cranial nerves 2-12 grossly intact as tested. Motor is 5/5 as tested all extremities. Sensation intact. Cognition appropriate Extrem: Other: no edema bilateral Objective Data Active Medications Acetaminophen (Acetaminophen 325 Mg Tablet) 650 mg PO Q6H PRN PRN Reason: Pain, Mild (Pain Scale 1-3) Last Admin: 07/12/21 07:30 Dose: 650 mg Documented by: AKASH Albuterol Sulfate (Albuterol Sulfate 90 Mcg 8 Gm Inhaler) 2 puff INHALE Q4H PRN PRN Reason: Shortness Of Breath Amlodipine Besylate (Amlodipine Besylate 10 Mg Tablet) 10 mg PO DAILY [facility]; Protocol Last Admin: 07/14/21 07:43 Dose: 10 mg Documented by: SAJAN Ascorbic Acid (Ascorbic Acid 500 Mg Tablet) 500 mg PO BID [facility] Last Admin: 07/14/21 07:43 Dose: 500 mg Documented by: SAJAN Aspirin (Aspirin Enteric Coated 81 Mg Tablet.Dr) 81 mg PO BEDTIME [facility] Last Admin: 07/13/21 21:16 Dose: 81 mg Documented by: JANETH Atorvastatin Calcium (Atorvastatin Calcium 80 Mg Tablet) 80 mg PO BEDTIME [facility] Last Admin: 07/13/21 21:16 Dose: 80 mg Documented by: JANETH Calcitriol (Calcitriol 0.25 Mcg Capsule) 0.25 mcg PO Q2D@0900 [facility] Last Admin: 07/14/21 07:43 Dose: 0.25 mcg Documented by: SAJAN Carvedilol (Carvedilol 6.25 Mg Tablet) 6.25 mg PO BID [facility]; Protocol Last Admin: 07/14/21 07:44 Dose: 6.25 mg Documented by: SAJAN Docusate Sodium (Docusate Sodium 100 Mg Capsule) 100 mg PO BID [facility] Last Admin: 07/14/21 07:44 Dose: 100 mg Documented by: SAJAN Ferrous Sulfate (Ferrous Sulfate 324 Mg Tablet.Dr) 324 mg PO BIDWM [facility] Last Admin: 07/14/21 07:44 Dose: 324 mg Documented by: SAJAN Fluticasone Propionate (Fluticasone Propionate 100 Mcg Blst.W.Dev) 2 puff INHALE RBID [facility] Last Admin: 07/14/21 08:55 Dose: Not Given Documented by: PHOEBE Non-Admin Reason: Off unit: Dialysis Heparin Sodium (Porcine) (Heparin Sodium,Porcine 5,000 Unit/Ml Vial) 5,000 unit SUBCUT Q8H [facility] Last Admin: 07/14/21 05:58 Dose: 5,000 unit Documented by: JANETH Heparin Sodium (Porcine) (Heparin Sodium,Porcine 5,000 Unit/Ml Vial) 5,000 unit INTRACATH ONCE ONE Stop: 07/15/21 06:39 Hydralazine HCl (Hydralazine Hcl 10 Mg Tablet) 10 mg PO BID [facility]; Protocol Last Admin: 07/14/21 07:43 Dose: 10 mg Documented by: SAJAN Hydromorphone HCl (Hydromorphone Hcl 0.5 Mg/0.5 Ml Syringe) 0.25 mg IVPUSH Q4H PRN; Protocol PRN Reason: Pain, Severe (Pain Scale 7-10) Last Admin: 07/13/21 04:08 Dose: 0.25 mg Documented by: JANETH Sodium Chloride () 1,000 mls @ 50 mls/hr IVCONT .Q20H [facility] Last Admin: 07/13/21 21:19 Dose: Not Given Documented by: JANETH Non-Admin Reason: IV Running Dextrose (D5w) 1,000 mls @ 50 mls/hr IVCONT .Q20H [facility] Last Admin: 07/13/21 21:13 Dose: 50 mls/hr Documented by: JANETH Insulin Glargine (Insulin Glargine,Hum.Rec.Anlog 100 Unit/Ml 10 Ml Vial) 28 unit SUBCUT BEDTIME [facility] Last Admin: 07/13/21 21:15 Dose: 28 unit Documented by: JANETH Melatonin (Melatonin 3 Mg Tablet) 6 mg PO BEDTIME PRN PRN Reason: Insomnia Last Admin: 07/12/21 20:12 Dose: 6 mg Documented by: JANETH Montelukast Sodium (Montelukast Sodium 10 Mg Tablet) 10 mg PO BEDTIME [facility] Last Admin: 07/13/21 21:16 Dose: 10 mg Documented by: JANETH Omeprazole (Omeprazole 20 Mg Capsule.Dr) 20 mg PO DAILY@0630 [facility] Last Admin: 07/14/21 05:58 Dose: 20 mg Documented by: JANETH Ondansetron HCl (Ondansetron Hcl 4 Mg/2 Ml Vial) 4 mg IVPUSH Q8H PRN PRN Reason: Nausea and Vomiting Last Admin: 07/13/21 04:09 Dose: 4 mg Documented by: JANETH Oxycodone HCl (Oxycodone Hcl Immed Release 5 Mg Tablet) 5 mg PO Q6H PRN PRN Reason: Pain, Moderate (Pain Scale 4-6 Last Admin: 07/14/21 07:42 Dose: 5 mg Documented by: SAJAN Pharmacy Consult (Consult Rx Perform Med Rec) 1 each MISCELLANE ONCE PRN PRN Reason: Consult order Sertraline HCl (Sertraline Hcl 50 Mg Tablet) 150 mg PO DAILY [facility] Last Admin: 07/14/21 07:43 Dose: 150 mg Documented by: SAJAN Sevelamer Carbonate (Sevelamer Carbonate Tablet 800 Mg Tablet) 800 mg PO TIDWM [facility] Last Admin: 07/14/21 07:43 Dose: 800 mg Documented by: SAJAN Sodium Bicarbonate (Sodium Bicarbonate 650 Mg Tablet) 650 mg PO TID [facility] Last Admin: 07/14/21 07:43 Dose: 650 mg Documented by: SAJAN Sodium Chloride (0.9 % Sodium Chloride Flush 3 Ml Syringe) [facility] Last Admin: 07/14/21 07:43 Dose: Not Given Documented by: SAJAN Non-Admin Reason: IV Running Vitamin D (Cholecalciferol (Vitamin D3) 25 Mcg Tablet) 25 mcg PO DAILY [facility] Last Admin: 07/14/21 07:44 Dose: 25 mcg Documented by: SAJAN Labs CBC & Chem 7: 07/14/21 05:26 07/14/21 05:26 Labs: Laboratory Results - last 24 hr 07/13/21 07/13/21 07/14/21 05:28 21:09 05:26 MCV MCH MCHC RDW Plt Count MPV Immature Gran % (Auto) Neut % (Auto) Lymph % (Auto) [place] % (Auto) Eos % (Auto) Baso % (Auto) Lymph # (Auto) [place] # (Auto) Eos # (Auto) Baso # (Auto) Abs Immat Gran (auto) Absolute Neuts (auto) Absolute Nucleated RBC Nucleated RBC % (auto) Anion Gap 11 L Estim Creat Clear Calc 8.2 Estimated GFR 7 POC Glucose 188 H Fasting Glucose 64 Calcium 8.2 L Phosphorus 6.8 H Magnesium 2.0 Total Bilirubin 0.2 AST 9 ALT < 6 Alkaline Phosphatase 58 Total Protein 4.6 L Albumin 2.3 L Hep Bs Antigen Negative Hep Bs Antibody NONREACTIVE Hep B Core Total Ab Nonreactive 07/14/21 05:26 MCV 92.7 MCH 28.3 MCHC 30.5 L RDW 13.4 Plt Count 206 MPV 10.4 Immature Gran % (Auto) 0.6 H Neut % (Auto) 68.7 Lymph % (Auto) 19.9 L [place] % (Auto) 8.5 Eos % (Auto) 2.1 Baso % (Auto) 0.2 Lymph # (Auto) 1.1 L [place] # (Auto) 0.5 Eos # (Auto) 0.1 Baso # (Auto) 0.0 Abs Immat Gran (auto) 0.03 Absolute Neuts (auto) 3.7 Absolute Nucleated RBC 0.000 Nucleated RBC % (auto) 0.0 Anion Gap Estim Creat Clear Calc Estimated GFR POC Glucose Fasting Glucose Calcium Phosphorus Magnesium Total Bilirubin AST ALT Alkaline Phosphatase Total Protein Albumin Hep Bs Antigen Hep Bs Antibody Hep B Core Total Ab Assessment and Plan (1) Acute on chronic kidney failure: Status: Acute (2) Type 2 diabetes mellitus with unspecified complications: Status: Acute Assessment and Plan: 66-year-old female with known CKD presents to the ER with back pain. Permacath today without incident 1.End Stage Renal Disease HD today,07/14,07/15. Notes improvement Outpt HD as per renal. Sevelamer/Vit D added by renal. 2.DMII Continue outpatient insulin regimen. Augment with sliding scale coverage... Adjust as indicated 3, HTN Continue Amlodipine/Hydralazine/Coreg Adjust as indicated 4. ASCD Coreg/statin/ASA 5. GERD PPI as ordered Full Code Sc Heparin Quality Stroke Does the patient have a stroke diagnosis?: No VTE Prior VTE?: No VTE Risk Level:: Medical - moderate - high VTE Device Contraindication: Treatment Not Indicated VTE Drug Contraindication: N/A - Med Ordered
--- NOTE | 2021-07-14 11:26 | MHC.CM.PN ---
Plan for dc remains the same- Home/resume [employer] and Patient has a community HD slot waiting for her. CM will follow.(Needs 1 more HD session here before dc).
--- NOTE | 2021-07-14 14:35 | MHC.CM.PN ---
Per Zina at [facility], Patient will start HD on 07/17/21 at 5:30 AM. If at all possible HD would like Patient to come on 07/16/21 to do admission paperwork.CM will follow.
--- NOTE | 2021-07-14 16:10 | PM.PNNEP ---
Subjective Subjective Date of Service: 07/14/21 Interval history: Doing well with dialysis; Seen on HD this AM. D/W HD RN Physical Exam Vital Signs: Vital Signs: Last Vital Signs Temp 97.6 F 07/14/21 15:44 Pulse 75 07/14/21 15:44 Resp 16 07/14/21 15:44 BP 150/62 H 07/14/21 15:44 Pulse Ox 99 07/14/21 15:44 BMI result Body Mass Index 32.0 Const: General: alert Eyes: EOM: EOMs intact bilaterally Neck: Neck: Yes supple Resp: Auscultation: diminished lung sounds Cardio: Rate: regular rate GI: Palpation (GI): Soft to palpation Neuro: General: moves all extremities Objective Data Labs CBC & Chem 7: 07/14/21 05:26 07/14/21 05:26 Labs: Laboratory Results - last 24 hr 07/13/21 07/13/21 07/14/21 05:28 21:09 05:26 WBC RBC Hgb Hct MCV MCH MCHC RDW Plt Count MPV Immature Gran % (Auto) Neut % (Auto) Lymph % (Auto) [place] % (Auto) Eos % (Auto) Baso % (Auto) Lymph # (Auto) [place] # (Auto) Eos # (Auto) Baso # (Auto) Abs Immat Gran (auto) Absolute Neuts (auto) Absolute Nucleated RBC Nucleated RBC % (auto) Sodium 140 Potassium 4.3 Chloride 113 H Carbon Dioxide 20 L Anion Gap 11 L BUN 36 H Creatinine 5.85 H* Estim Creat Clear Calc 8.2 Estimated GFR 7 POC Glucose 188 H Fasting Glucose 64 Calcium 8.2 L Phosphorus 6.8 H Magnesium 2.0 Total Bilirubin 0.2 AST 9 ALT < 6 Alkaline Phosphatase 58 Total Protein 4.6 L Albumin 2.3 L Hep Bs Antigen Negative Hep Bs Antibody NONREACTIVE Hep B Core Total Ab Nonreactive 07/14/21 05:26 WBC 5.3 RBC 3.15 L Hgb 8.9 L Hct 29.2 L MCV 92.7 MCH 28.3 MCHC 30.5 L RDW 13.4 Plt Count 206 MPV 10.4 Immature Gran % (Auto) 0.6 H Neut % (Auto) 68.7 Lymph % (Auto) 19.9 L [place] % (Auto) 8.5 Eos % (Auto) 2.1 Baso % (Auto) 0.2 Lymph # (Auto) 1.1 L [place] # (Auto) 0.5 Eos # (Auto) 0.1 Baso # (Auto) 0.0 Abs Immat Gran (auto) 0.03 Absolute Neuts (auto) 3.7 Absolute Nucleated RBC 0.000 Nucleated RBC % (auto) 0.0 Sodium Potassium Chloride Carbon Dioxide Anion Gap BUN Creatinine Estim Creat Clear Calc Estimated GFR POC Glucose Fasting Glucose Calcium Phosphorus Magnesium Total Bilirubin AST ALT Alkaline Phosphatase Total Protein Albumin Hep Bs Antigen Hep Bs Antibody Hep B Core Total Ab Procedures Date of Service Date of Service: 07/14/21 Assessment & Plan Assessment and plan (1) Acute on chronic kidney failure: Status: Acute Assessment and Plan: Has progressed to ESRD Initiated HD yesterday(07/13/2021) S/P Permcath yesterday AM; Seen on HD Dialysis ordered for tomorrow Hepatitis screen reviewed Renvela 800 mg tid with meals Vitamin D replacement Outpatient HD spot arranged in [facility] ( [phone]) Shall continue to closely follow up Time Spent With Patient Time: Total time spent is greater than 50% in coordination of care (as documented) at patient's floor/unit and/or counseling patient: Progress Note: Quality Stroke Does the patient have a stroke diagnosis?: No
[2021-07-14] MEDS: 0.9 % Sodium Chloride Flush 3 ML SYRINGE IVFLUSH (17:49)
[2021-07-14] MEDS: Dextrose 5 % 1,000 ML 50 ML IVCONT (17:49)
[2021-07-14] MEDS: Insulin Glargine,Hum.rec.anlog 100 UNIT/ML 10 ML VIAL 28 UNIT SUBCUT (20:17)
[2021-07-14 20:18] LABS: Glucose, Whole Blood 171 mg/dL (60-115)
[2021-07-14] MEDS: Aspirin Enteric Coated 81 MG TABLET.DR PO (20:19)
[2021-07-14] MEDS: Montelukast Sodium 10 MG TABLET PO (20:19)
[2021-07-14] MEDS: Atorvastatin Calcium 80 MG TABLET PO (20:20)
[2021-07-14] MEDS: Fluticasone Propionate 100 MCG BLST.W.DEV 2 PUFF INHALE (20:37)
[2021-07-14 20:55] LABS: Calcium (PTHI) 8.3 mg/dL (8.6-10.4); PTHI 442 pg/mL (14-64)
[2021-07-15] VITALS (8 sets, daily range): BP systolic 150–188; BP diastolic 64–89; PULSE 69–79; RESP 17–20; TEMP 35.8–37.1; O2SAT 95–99
[2021-07-15] MEDS: HYDROmorphone HCl 0.5 MG/0.5 ML SYRINGE 0.25 MG IVPUSH (00:12)
[2021-07-15] MEDS: 0.9 % Sodium Chloride Flush 3 ML SYRINGE IVFLUSH ×3 (00:12→15:19)
[2021-07-15] MEDS: Heparin Sodium,Porcine 5,000 UNIT/ML VIAL 5000 UNIT SUBCUT ×3 (04:17→21:46)
[2021-07-15 05:29] LABS: MANUAL DIFF FLAG NO
[2021-07-15 05:33] LABS: Basophils Percent Auto 0.4 % (0-2); Eosinophils Absolute Auto 0.1 X10*3/uL (0.0-0.4); Eosinophils Percent Auto 2.3 % (0-4); Hematocrit 29.1 % (37.0-47.0); Hemoglobin 9.2 g/dl (12.0-16.0); Imm Gran Abs Auto 0.04 X10*3/uL (0.00-0.03); Imm Gran Pct Auto 0.8 % (0.0-0.4); Lymphocytes Absolute Auto 1.3 X10*3/uL (1.2-4.9); Lymphocytes Percent Auto 25.3 % (20-40); Mean Corpuscular HGB Conc 31.6 g/dl (31.0-35.0); Mean Corpuscular Hemoglobin 28.3 pg (27.0-33.0); Mean Corpuscular Volume 89.5 fL (80.0-98.0); Mean Platelet Volume 10.2 fL (9.4-12.3); Monocytes Absolute Auto 0.5 X10*3/uL (0.1-1.2); Monocytes Percent Auto 9.5 % (2-11); Neutrophils Absolute Auto 3.3 x10*3/uL (2.0-8.3); Neutrophils Percent Auto 61.7 % (45-73); Platelet Count 186 X10*3/uL (160-400); Red Blood Count 3.25 X10*6/uL (4.20-5.50); Red Cell Distribution Width 13.2 % (11.0-16.0); White Blood Count 5.3 X10*3/uL (4.8-10.8)
[2021-07-15 05:56] LABS: Alanine Aminotransferase < 6 U/L (0-31); Albumin Level 2.3 g/dL (3.5-5.0); Alkaline Phosphatase 53 U/L (39-117); Anion Gap 8 (12-20); Aspartate Amino Transferase 12 U/L (5-31); Bilirubin Total 0.2 mg/dL (0.0-1.0); Blood Urea Nitrogen 22 mg/dL (9-16); Calcium 8.3 mg/dL (8.4-10.2); Carbon Dioxide 25 mmol/L (22-29); Chloride 109 mmol/L (96-108); Creatinine Clr Calc Pharmacy 11.1; Estimated Glomerular Filt Rate 10; Glucose Fasting 98 mg/dL (60-99); Sodium 138 mmol/L (135-145); Total Protein 4.5 g/dL (6.5-8.0)
[2021-07-15] MEDS: Omeprazole 20 MG CAPSULE.DR PO (06:22)
--- NOTE | 2021-07-15 09:43 | P.DS_ITS ---
DS: Providers Provider Date of Service: 07/16/21 Date of admission: 07/11/21 12:49 Primary care physician: Unknown Physician Consults: 07/11/21 09:54 Consult to Nephrology Routine Consulting Provider: Feliciano Baldwin Reason for consultation: ESRD Has provider been notified: No DS: Diagnosis Discharge Diagnosis (1) Acute on chronic kidney failure: Status: Resolved DS: Summary Hospital Course Hospital Course: Date of Service: 07/11/21 ?66-year-old female presents initially to [facility] ER with complaints of right lower back pain.? Initial workup with CT scan failed to d emonstrate any acute pathology.? Routine lab work? demonstrated a creatinine that was 5.59? and has risen to 8.52 over the last 7 months.? Per patient's recount she is poorly compliant with renal follow-up.? She states she has been free of symptoms including swelling, dysuric symptoms chest pain shortness of breath. she will be admitted for likely PermCath placement followed by HD. Hospital course: Patient was essentially admitted for progressive renal failure and now ESRD and was admitted for urgent dialysis and has had a permacath placed and has had 2 dialysis in the hopsital and has had outpatient dialysis palce arranged. She is to continue all her outpatient meds, to follow up with dialysis and PCP Time Spent with Patient Time attestation: Total time spent providing and/or coordinating discharge services: Discharge coordination time: Greater than 30 minutes Quality: Stroke Does the patient have a stroke diagnosis?: No Physical Exam Verdana 4l Vital Signs: Verdana 4d Verdana 4d Vital Signs: Verdana 4d Verdana 4Bd Last Vital Signs Verdana 4d Perfusionist New 4d Perfusionist New 4d Temp 97.2 F 07/15/21 04:00 Perfusionist New 4d Pulse 69 07/15/21 04:00 Perfusionist New 4d Resp 17 07/15/21 04:00 BP 151/68 H 07/15/21 04:00 Pulse Ox 99 07/15/21 04:00 BMI result Body Mass Index 32.0 DS: Data Data Completed and Pending Labs on day of discharge: Laboratory Results - last 24 hr 07/13/21 07/13/21 07/14/21 05:28 05:28 20:14 WBC RBC Hgb Hct MCV MCH MCHC RDW Plt Count MPV Immature Gran % (Auto) Neut % (Auto) Lymph % (Auto) [place] % (Auto) Eos % (Auto) Baso % (Auto) Lymph # (Auto) [place] # (Auto) Eos # (Auto) Baso # (Auto) Abs Immat Gran (auto) Absolute Neuts (auto) Absolute Nucleated RBC Nucleated RBC % (auto) Sodium Potassium Chloride Carbon Dioxide Anion Gap BUN Creatinine Estim Creat Clear Calc Estimated GFR POC Glucose 171 H Fasting Glucose Calcium Total Bilirubin AST ALT Alkaline Phosphatase Total Protein Albumin PTH Intact 442 H Calcium (PTH Intact) 8.3 L Hep Bs Antigen Negative Hep Bs Antibody NONREACTIVE Hep B Core Total Ab Nonreactive 07/15/21 07/15/21 05:20 05:20 WBC 5.3 RBC 3.25 L Hgb 9.2 L Hct 29.1 L MCV 89.5 MCH 28.3 MCHC 31.6 RDW 13.2 Plt Count 186 MPV 10.2 Immature Gran % (Auto) 0.8 H Neut % (Auto) 61.7 Lymph % (Auto) 25.3 [place] % (Auto) 9.5 Eos % (Auto) 2.3 Baso % (Auto) 0.4 Lymph # (Auto) 1.3 [place] # (Auto) 0.5 Eos # (Auto) 0.1 Baso # (Auto) 0.0 Abs Immat Gran (auto) 0.04 H Absolute Neuts (auto) 3.3 Absolute Nucleated RBC 0.000 Nucleated RBC % (auto) 0.0 Sodium 138 Potassium 4.0 Chloride 109 H Carbon Dioxide 25 Anion Gap 8 L BUN 22 H Creatinine 4.34 H* Estim Creat Clear Calc 11.1 Estimated GFR 10 POC Glucose Fasting Glucose 98 Calcium 8.3 L Total Bilirubin 0.2 AST 12 ALT < 6 Alkaline Phosphatase 53 Total Protein 4.5 L Albumin 2.3 L PTH Intact Calcium (PTH Intact) Hep Bs Antigen Hep Bs Antibody Hep B Core Total Ab Discharge Plan Discharge Anticipated Discharge Date/Time: 07/16/21 12:11 Patient Disposition: Home Health Service Discharge Diagnosis: renal failure no now ESRD Referrals: [facility] [Other] - 1 Week (LION ASKS THAT YOU PRESENT ON Monday07/16/21 FOR INTAKE YOUR FIRST OUTPATIENT HD SESSION WILL BE Monday07/17/21 AT 5:30 AM. AFTER THAT YOUR SCHEDULE WILL BE //SAT) Physician,Unknown J [Physician] - 1 Week Discharge Medications: Continued carvedilol 6.25 mg tablet 6.25 mg PO BID 90 Days Qty: 180 3RF Rx Instructions: must administer with a meal/food ascorbic acid (vitamin C) [Vitamin C] 500 mg tablet 1 tab PO BID 0RF montelukast 10 mg tablet 1 tab PO BEDTIME 0RF calcitriol 0.25 mcg capsule 1 cap PO Q2D 0RF melatonin 5 mg tablet 1 tab PO BEDTIME 0RF docusate sodium 100 mg capsule 1 cap PO BID 0RF albuterol sulfate [ProAir HFA] 90 mcg/actuation Hfa Aerosol Inhaler 2 puff INHALATION Q4-6H PRN (Reason: Shortness Of Breath) 0RF Flovent HFA 110 mcg/actuation HFA aerosol inhaler 2 puff inhalation BID 0RF cholecalciferol (vitamin D3) 25 mcg (1,000 unit) tablet 1 tab PO DAILY 0RF Lantus Solostar U-100 Insulin 100 unit/mL (3 mL) insulin pen 28 unit subcut BEDTIME 0RF amlodipine 10 mg tablet 10 mg PO DAILY 0RF aspirin 81 mg tablet,delayed release (DR/EC) 81 mg PO BEDTIME 0RF atorvastatin 80 mg tablet 80 mg PO BEDTIME 0RF hydralazine 10 mg tablet 10 mg PO BID 0RF ferrous sulfate 325 mg (65 mg iron) tablet 325 mg PO BIDWM 0RF pantoprazole 40 mg tablet,delayed release (DR/EC) 40 mg PO DAILY@0630 0RF sertraline 100 mg tablet 150 mg PO DAILY 0RF furosemide 40 mg tablet 120 mg PO BID 0RF Discharge Orders: Discharge Order (Routine); Ordered 07/15/21 Ordered By: Blaze Molina Diet: advance to usual diet and diabetic diet Activity on Discharge: As tolerated Stand Alone Forms: Patient Portal Discharge page Care Plan Goals: prevent rehospitalization Health Concerns: end stage renal disease Plan of Treatment: Go to dialysis as scheduled Assessment: As above Discharge Date/Time: 07/16/21 13:32
--- NOTE | 2021-07-15 11:06 | PM.PNNEP ---
Subjective Subjective Date of Service: 07/15/21 Interval history: Doing well with dialysis; Seen on HD this AM. D/W HD RN Physical Exam Vital Signs: Vital Signs: Last Vital Signs Temp 97.2 F 07/15/21 04:00 Pulse 69 07/15/21 04:00 Resp 17 07/15/21 04:00 BP 151/68 H 07/15/21 04:00 Pulse Ox 99 07/15/21 04:00 BMI result Body Mass Index 32.0 Const: General: no acute distress Eyes: EOM: EOMs intact bilaterally Resp: Auscultation: diminished lung sounds Cardio: Rate: regular rate GI: Palpation (GI): Soft to palpation Neuro: General: moves all extremities Objective Data Labs CBC & Chem 7: 07/15/21 05:20 07/15/21 05:20 Labs: Laboratory Results - last 24 hr 07/13/21 07/14/21 07/15/21 05:28 20:14 05:20 WBC 5.3 RBC 3.25 L Hgb 9.2 L Hct 29.1 L MCV 89.5 MCH 28.3 MCHC 31.6 RDW 13.2 Plt Count 186 MPV 10.2 Immature Gran % (Auto) 0.8 H Neut % (Auto) 61.7 Lymph % (Auto) 25.3 [place] % (Auto) 9.5 Eos % (Auto) 2.3 Baso % (Auto) 0.4 Lymph # (Auto) 1.3 [place] # (Auto) 0.5 Eos # (Auto) 0.1 Baso # (Auto) 0.0 Abs Immat Gran (auto) 0.04 H Absolute Neuts (auto) 3.3 Absolute Nucleated RBC 0.000 Nucleated RBC % (auto) 0.0 Sodium Potassium Chloride Carbon Dioxide Anion Gap BUN Creatinine Estim Creat Clear Calc Estimated GFR POC Glucose 171 H Fasting Glucose Calcium Total Bilirubin AST ALT Alkaline Phosphatase Total Protein Albumin PTH Intact 442 H Calcium (PTH Intact) 8.3 L 07/15/21 05:20 WBC RBC Hgb Hct MCV MCH MCHC RDW Plt Count MPV Immature Gran % (Auto) Neut % (Auto) Lymph % (Auto) [place] % (Auto) Eos % (Auto) Baso % (Auto) Lymph # (Auto) [place] # (Auto) Eos # (Auto) Baso # (Auto) Abs Immat Gran (auto) Absolute Neuts (auto) Absolute Nucleated RBC Nucleated RBC % (auto) Sodium 138 Potassium 4.0 Chloride 109 H Carbon Dioxide 25 Anion Gap 8 L BUN 22 H Creatinine 4.34 H* Estim Creat Clear Calc 11.1 Estimated GFR 10 POC Glucose Fasting Glucose 98 Calcium 8.3 L Total Bilirubin 0.2 AST 12 ALT < 6 Alkaline Phosphatase 53 Total Protein 4.5 L Albumin 2.3 L PTH Intact Calcium (PTH Intact) Procedures Date of Service Date of Service: 07/15/21 Assessment & Plan Assessment and plan (1) Acute on chronic kidney failure: Status: Acute Assessment and Plan: Has progressed to ESRD Initiated HD yesterday(07/13/2021) S/P Permcath 2 days ago; Seen on HD Hepatitis screen reviewed Renvela 800 mg tid with meals Vitamin D replacement Outpatient HD spot arranged in [facility] ( [phone]) Shall continue to closely follow up Next HD Monday Time Spent With Patient Time: Total time spent is greater than 50% in coordination of care (as documented) at patient's floor/unit and/or counseling patient: Progress Note: Quality Stroke Does the patient have a stroke diagnosis?: No
[2021-07-15] MEDS: oxyCODONE HCl Immed Release 5 MG TABLET PO (12:26)
[2021-07-15] MEDS: carvediloL 6.25 MG TABLET PO ×2 (12:26→21:47)
[2021-07-15] MEDS: Cholecalciferol (Vitamin D3) 25 MCG TABLET PO (12:26)
[2021-07-15] MEDS: hydrALAZINE HCl 10 MG TABLET PO ×2 (12:26→21:47)
[2021-07-15] MEDS: Sertraline HCL 50 MG TABLET 150 MG PO (12:27)
[2021-07-15] MEDS: amLODIPine Besylate 10 MG TABLET PO (12:27)
[2021-07-15] MEDS: Ascorbic Acid 500 MG TABLET PO ×2 (12:27→21:46)
[2021-07-15] MEDS: Docusate Sodium 100 MG CAPSULE PO ×2 (12:28→21:46)
[2021-07-15] MEDS: Sevelamer Carbonate Tablet 800 MG TABLET PO ×2 (12:34→17:59)
--- NOTE | 2021-07-15 13:12 | MHC.CM.PN ---
Addendum entered by Tanya Langford 07/15/21 16:07: PTS SON ARRIVED TO UNIT AROUND 1500 HOURS AND INFORMED THIS CM THAT HIS MOTHER WAS REPORTING SHE WAS NOT WELL ENOUGH TO DC HE REPORTS SHE IS TELLING HIM SHE DOES NOT FEEL WELL AND HAS CHEST PAINS MD INFORMED MD SPOKE WITH PT AND SON AND REPORTED DC WOULD BE HELD UNTIL MORNING AT 0900. 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 UNTIL THEN, HE IS AWARE [facility] TRANSPORT CAN BE ARRANGED Original Note: PT IS CLEARED TO DC TODAY CM CALLED HER DAUGHTER IN LAW, BEN [phone] CM INFORMED HER OF DC AND CONFIRMED THERE WERE ARRANGEMENTS MADE FOR POSTAL DELIVERY OFFICER SERVICES BEN CONFIRMS THE PTS SON, MATTHEW, WILL BE PROVIDING PTS CARE BEN REPORTS MATTHEW WILL PICK PT UP WHEN HE GETS OUT OF WORK AT 1500 HOURS CM INFORMED HER OF PTS APPT AT [facility] ON MONDAY FOR AN INTAKE AND THAT HER OUTPATIENT HD WILL BEGIN MONDAY AT 0530 HOURS SHE WAS ALSO INFORMED THE PTS HD SCHEDULE WOULD BE //SAT. THIS WAS ALSO ADDED TO THE PTS DC PTS SON, MATTHEW, ALSO CALLED CM TO CLARIFY HE WOULD BE AT THE HOSPITAL AT 1500 AND ASKED THAT HIS MOTHER BE INFORMED
[2021-07-15] MEDS: Sodium Bicarbonate 650 MG TABLET PO ×2 (15:19→21:45)
--- NOTE | 2021-07-15 16:22 | HO.PM.IMPN ---
Subjective Subjective Date of Service: 07/15/21 Interval History: Feels tired, no CP Review of Systems Denies chest pain Denies shortness of breath Denies nausea vomiting diarrhea Physical Exam Vital Signs: Vital Signs: Last Vital Signs Temp 98 F 07/15/21 15:18 Pulse 70 07/15/21 15:18 Resp 18 07/15/21 15:18 BP 150/64 H 07/15/21 15:18 Pulse Ox 99 07/15/21 15:18 BMI result Body Mass Index 32.0 Const: Other: awake alert no acute distress ill-appearing Objective Data Active Medications Acetaminophen (Acetaminophen 325 Mg Tablet) 650 mg PO Q6H PRN PRN Reason: Pain, Mild (Pain Scale 1-3) Last Admin: 07/12/21 07:30 Dose: 650 mg Documented by: AKASH Albuterol Sulfate (Albuterol Sulfate 90 Mcg 8 Gm Inhaler) 2 puff INHALE Q4H PRN PRN Reason: Shortness Of Breath Amlodipine Besylate (Amlodipine Besylate 10 Mg Tablet) 10 mg PO DAILY [facility]; Protocol Last Admin: 07/15/21 12:27 Dose: 10 mg Documented by: SEJAL Ascorbic Acid (Ascorbic Acid 500 Mg Tablet) 500 mg PO BID [facility] Last Admin: 07/15/21 12:27 Dose: 500 mg Documented by: SEJAL Aspirin (Aspirin Enteric Coated 81 Mg Tablet.) 81 mg PO BEDTIME [facility] Last Admin: 07/14/21 20:19 Dose: 81 mg Documented by: SARBJIT Atorvastatin Calcium (Atorvastatin Calcium 80 Mg Tablet) 80 mg PO BEDTIME [facility] Last Admin: 07/14/21 20:20 Dose: 80 mg Documented by: SARBJIT Calcitriol (Calcitriol 0.25 Mcg Capsule) 0.25 mcg PO Q2D@0900 [facility] Last Admin: 07/14/21 07:43 Dose: 0.25 mcg Documented by: SAJAN Carvedilol (Carvedilol 6.25 Mg Tablet) 6.25 mg PO BID [facility]; Protocol Last Admin: 07/15/21 12:26 Dose: 6.25 mg Documented by: SEJAL Docusate Sodium (Docusate Sodium 100 Mg Capsule) 100 mg PO BID [facility] Last Admin: 07/15/21 12:28 Dose: 100 mg Documented by: SEJAL Ferrous Sulfate (Ferrous Sulfate 324 Mg Tablet.) 324 mg PO BIDWM [facility] Last Admin: 07/15/21 11:58 Dose: Not Given Documented by: SEJAL Non-Admin Reason: Off unit: Dialysis Fluticasone Propionate (Fluticasone Propionate 100 Mcg Blst.W.Dev) 2 puff INHALE RBID [facility] Last Admin: 07/15/21 07:50 Dose: Not Given Documented by: HEYDI Non-Admin Reason: Off unit: Dialysis Heparin Sodium (Porcine) (Heparin Sodium,Porcine 5,000 Unit/Ml Vial) 5,000 unit SUBCUT Q8H [facility] Last Admin: 07/15/21 12:28 Dose: 5,000 unit Documented by: SEJAL Hydralazine HCl (Hydralazine Hcl 10 Mg Tablet) 10 mg PO BID [facility]; Protocol Last Admin: 07/15/21 12:26 Dose: 10 mg Documented by: SEJAL Hydromorphone HCl (Hydromorphone Hcl 0.5 Mg/0.5 Ml Syringe) 0.25 mg IVPUSH Q4H PRN; Protocol PRN Reason: Pain, Severe (Pain Scale 7-10) Last Admin: 07/15/21 00:12 Dose: 0.25 mg Documented by: NELSY Dextrose (D5w) 1,000 mls @ 50 mls/hr IVCONT .Q20H [facility] Last Infusion: 07/15/21 14:53 Dose: 0 mls/hr Documented by: SEJAL Insulin Glargine (Insulin Glargine,Hum.Rec.Anlog 100 Unit/Ml 10 Ml Vial) 28 unit SUBCUT BEDTIME [facility] Last Admin: 07/14/21 20:17 Dose: 28 unit Documented by: SARBJIT Melatonin (Melatonin 3 Mg Tablet) 6 mg PO BEDTIME PRN PRN Reason: Insomnia Last Admin: 07/12/21 20:12 Dose: 6 mg Documented by: JANETH Montelukast Sodium (Montelukast Sodium 10 Mg Tablet) 10 mg PO BEDTIME [facility] Last Admin: 07/14/21 20:19 Dose: 10 mg Documented by: SARBJIT Omeprazole (Omeprazole 20 Mg Capsule.) 20 mg PO DAILY@0630 [facility] Last Admin: 07/15/21 06:22 Dose: 20 mg Documented by: NELSY Ondansetron HCl (Ondansetron Hcl 4 Mg/2 Ml Vial) 4 mg IVPUSH Q8H PRN PRN Reason: Nausea and Vomiting Last Admin: 07/13/21 04:09 Dose: 4 mg Documented by: JANETH Oxycodone HCl (Oxycodone Hcl Immed Release 5 Mg Tablet) 5 mg PO Q6H PRN PRN Reason: Pain, Moderate (Pain Scale 4-6 Last Admin: 07/15/21 12:26 Dose: 5 mg Documented by: SEJAL Pharmacy Consult (Consult Rx Perform Med Rec) 1 each MISCELLANE ONCE PRN PRN Reason: Consult order Sertraline HCl (Sertraline Hcl 50 Mg Tablet) 150 mg PO DAILY [facility] Last Admin: 07/15/21 12:27 Dose: 150 mg Documented by: SEJAL Sevelamer Carbonate (Sevelamer Carbonate Tablet 800 Mg Tablet) 800 mg PO TIDWM [facility] Last Admin: 07/15/21 12:34 Dose: 800 mg Documented by: SEJAL Sodium Bicarbonate (Sodium Bicarbonate 650 Mg Tablet) 650 mg PO TID [facility] Last Admin: 07/15/21 15:19 Dose: 650 mg Documented by: SEJAL Sodium Chloride (0.9 % Sodium Chloride Flush 3 Ml Syringe) [facility] Last Admin: 07/15/21 15:19 Dose: 3 ml Documented by: SEJAL Vitamin D (Cholecalciferol (Vitamin D3) 25 Mcg Tablet) 25 mcg PO DAILY [facility] Last Admin: 07/15/21 12:26 Dose: 25 mcg Documented by: SEJAL Labs CBC & Chem 7: 07/15/21 05:20 07/15/21 05:20 Labs: Laboratory Results - last 24 hr 07/13/21 07/14/21 07/15/21 05:28 20:14 05:20 MCV 89.5 MCH 28.3 MCHC 31.6 RDW 13.2 Plt Count 186 MPV 10.2 Immature Gran % (Auto) 0.8 H Neut % (Auto) 61.7 Lymph % (Auto) 25.3 [place] % (Auto) 9.5 Eos % (Auto) 2.3 Baso % (Auto) 0.4 Lymph # (Auto) 1.3 [place] # (Auto) 0.5 Eos # (Auto) 0.1 Baso # (Auto) 0.0 Abs Immat Gran (auto) 0.04 H Absolute Neuts (auto) 3.3 Absolute Nucleated RBC 0.000 Nucleated RBC % (auto) 0.0 Anion Gap Estim Creat Clear Calc Estimated GFR POC Glucose 171 H Fasting Glucose Calcium Total Bilirubin AST ALT Alkaline Phosphatase Total Protein Albumin PTH Intact 442 H Calcium (PTH Intact) 8.3 L 07/15/21 05:20 MCV MCH MCHC RDW Plt Count MPV Immature Gran % (Auto) Neut % (Auto) Lymph % (Auto) [place] % (Auto) Eos % (Auto) Baso % (Auto) Lymph # (Auto) [place] # (Auto) Eos # (Auto) Baso # (Auto) Abs Immat Gran (auto) Absolute Neuts (auto) Absolute Nucleated RBC Nucleated RBC % (auto) Anion Gap 8 L Estim Creat Clear Calc 11.1 Estimated GFR 10 POC Glucose Fasting Glucose 98 Calcium 8.3 L Total Bilirubin 0.2 AST 12 ALT < 6 Alkaline Phosphatase 53 Total Protein 4.5 L Albumin 2.3 L PTH Intact Calcium (PTH Intact) Assessment and Plan (1) Type 2 diabetes mellitus with unspecified complications: Status: Acute (2) Edema: Status: Acute Assessment and Plan: 66-year-old female with known CKD presents to the ER with back pain. Permacath today without incident 1.End Stage Renal Disease HD today,07/14,07/15. Notes improvement Outpt HD arranged Sevelamer/Vit D added by renal. 2.DMII Continue outpatient insulin regimen. Augment with sliding scale coverage... Adjust as indicated 3, HTN Continue Amlodipine/Hydralazine/Coreg Adjust as indicated 4. ASCD Coreg/statin/ASA 5. GERD PPI as ordered Full Code Sc Heparin home in the morning. Quality Stroke Does the patient have a stroke diagnosis?: No VTE Prior VTE?: No VTE Risk Level:: Medical - moderate - high VTE Device Contraindication: Treatment Not Indicated VTE Drug Contraindication: N/A - Med Ordered
[2021-07-15] MEDS: Ferrous Sulfate 324 MG TABLET.DR PO (17:59)
[2021-07-15 20:03] LABS: Glucose, Whole Blood 52 mg/dL (60-115)
[2021-07-15] MEDS: Fluticasone Propionate 100 MCG BLST.W.DEV 2 PUFF INHALE (20:04)
[2021-07-15 20:33] LABS: Glucose, Whole Blood 116 mg/dL (60-115)
[2021-07-15] MEDS: polyethylene glycoL 3350 17 GM POWD.PACK PO (21:45)
[2021-07-15] MEDS: Aspirin Enteric Coated 81 MG TABLET.DR PO (21:45)
[2021-07-15] MEDS: Montelukast Sodium 10 MG TABLET PO (21:45)
[2021-07-15] MEDS: bisacodyL 10 MG SUPP.RECT PR (21:46)
[2021-07-15] MEDS: Milk of Magnesia 30 ML ORAL.SUSP PO (21:46)
[2021-07-15] MEDS: Atorvastatin Calcium 80 MG TABLET PO (21:46)
[2021-07-16 03:24] VITALS: BP 152/71; PULSE 70; RESP 18; TEMP 36.9; O2SAT 96
[2021-07-16] MEDS: Dextrose 5 % 1,000 ML 50 ML IVCONT (03:25)
[2021-07-16] MEDS: Omeprazole 20 MG CAPSULE.DR PO (05:30)
[2021-07-16] MEDS: Heparin Sodium,Porcine 5,000 UNIT/ML VIAL 5000 UNIT SUBCUT (05:30)
[2021-07-16 05:41] LABS: MANUAL DIFF FLAG NO
[2021-07-16 05:45] LABS: Basophils Percent Auto 0.4 % (0-2); Eosinophils Absolute Auto 0.1 X10*3/uL (0.0-0.4); Eosinophils Percent Auto 1.2 % (0-4); Hemoglobin 9.4 g/dl (12.0-16.0); Imm Gran Abs Auto 0.06 X10*3/uL (0.00-0.03); Imm Gran Pct Auto 0.9 % (0.0-0.4); Lymphocytes Absolute Auto 1.4 X10*3/uL (1.2-4.9); Lymphocytes Percent Auto 19.8 % (20-40); Mean Corpuscular HGB Conc 32.4 g/dl (31.0-35.0); Mean Corpuscular Hemoglobin 28.7 pg (27.0-33.0); Mean Corpuscular Volume 88.7 fL (80.0-98.0); Monocytes Absolute Auto 0.6 X10*3/uL (0.1-1.2); Monocytes Percent Auto 8.5 % (2-11); Neutrophils Absolute Auto 4.8 x10*3/uL (2.0-8.3); Neutrophils Percent Auto 69.2 % (45-73); Platelet Count 185 X10*3/uL (160-400); Red Blood Count 3.27 X10*6/uL (4.20-5.50); Red Cell Distribution Width 13.2 % (11.0-16.0); White Blood Count 6.9 X10*3/uL (4.8-10.8)
[2021-07-16 06:47] LABS: Alanine Aminotransferase 6 U/L (0-31); Albumin Level 2.3 g/dL (3.5-5.0); Alkaline Phosphatase 45 U/L (39-117); Anion Gap 12 (12-20); Aspartate Amino Transferase 19 U/L (5-31); Bilirubin Total 0.2 mg/dL (0.0-1.0); Blood Urea Nitrogen 13 mg/dL (9-16); Calcium 8.3 mg/dL (8.4-10.2); Carbon Dioxide 22 mmol/L (22-29); Chloride 103 mmol/L (96-108); Creatinine Clr Calc Pharmacy 14.3; Estimated Glomerular Filt Rate 13; Glucose Fasting 161 mg/dL (60-99); Potassium 3.9 mmol/L (3.3-5.1); Sodium 133 mmol/L (135-145); Total Protein 4.7 g/dL (6.5-8.0)
[2021-07-16 08:00] VITALS: BP 181/72; PULSE 74; RESP 17; TEMP 36.9; O2SAT 97
[2021-07-16] MEDS: oxyCODONE HCl Immed Release 5 MG TABLET PO (08:14)
[2021-07-16] MEDS: calcitrioL 0.25 MCG CAPSULE PO (08:15)
[2021-07-16] MEDS: polyethylene glycoL 3350 17 GM POWD.PACK PO (08:15)
[2021-07-16] MEDS: 0.9 % Sodium Chloride Flush 3 ML SYRINGE IVFLUSH (08:15)
[2021-07-16] MEDS: hydrALAZINE HCl 10 MG TABLET PO (08:15)
[2021-07-16] MEDS: Docusate Sodium 100 MG CAPSULE PO (08:15)
[2021-07-16] MEDS: amLODIPine Besylate 10 MG TABLET PO (08:15)
[2021-07-16] MEDS: Ascorbic Acid 500 MG TABLET PO (08:15)
[2021-07-16] MEDS: Sodium Bicarbonate 650 MG TABLET PO (08:15)
[2021-07-16] MEDS: Sertraline HCL 50 MG TABLET 150 MG PO (08:15)
[2021-07-16] MEDS: Sevelamer Carbonate Tablet 800 MG TABLET PO ×2 (08:15→12:23)
[2021-07-16] MEDS: Cholecalciferol (Vitamin D3) 25 MCG TABLET PO (08:15)
[2021-07-16] MEDS: Fluticasone Propionate 100 MCG BLST.W.DEV 2 PUFF INHALE (08:16)
[2021-07-16] MEDS: Ferrous Sulfate 324 MG TABLET.DR PO (08:16)
[2021-07-16] MEDS: carvediloL 6.25 MG TABLET PO (08:16)
[2021-07-16 08:17] VITALS: PULSE 74; RESP 16; O2SAT 97
[2021-07-16] MEDS: Lactulose 20 GM/30 ML SOLUTION PO (10:40)
--- NOTE | 2021-07-16 11:48 | P.PNNP_ITS ---
Subjective Subjective Date of Service: 07/16/21 Interval history: Events noted; All recent data reviewed Physical Exam Vital Signs: Vital Signs: Last Vital Signs Temp 98.5 F 07/16/21 08:00 Pulse 74 07/16/21 08:17 Resp 16 07/16/21 08:17 BP 181/72 H 07/16/21 08:00 Pulse Ox 97 07/16/21 08:00 BMI result Body Mass Index 32.0 Const: General: no acute distress Eyes: EOM: EOMs intact bilaterally Resp: Auscultation: diminished lung sounds Cardio: Rate: regular rate GI: Palpation (GI): Soft to palpation Neuro: General: moves all extremities Objective Data Labs CBC & Chem 7: 07/16/21 05:31 07/16/21 05:31 Labs: Laboratory Results - last 24 hr 07/15/21 07/15/21 07/16/21 19:52 20:29 05:31 WBC 6.9 RBC 3.27 L Hgb 9.4 L Hct 29.0 L MCV 88.7 MCH 28.7 MCHC 32.4 RDW 13.2 Plt Count 185 MPV 10.0 Immature Gran % (Auto) 0.9 H Neut % (Auto) 69.2 Lymph % (Auto) 19.8 L [place] % (Auto) 8.5 Eos % (Auto) 1.2 Baso % (Auto) 0.4 Lymph # (Auto) 1.4 [place] # (Auto) 0.6 Eos # (Auto) 0.1 Baso # (Auto) 0.0 Abs Immat Gran (auto) 0.06 H Absolute Neuts (auto) 4.8 Absolute Nucleated RBC 0.000 Nucleated RBC % (auto) 0.0 Sodium Potassium Chloride Carbon Dioxide Anion Gap BUN Creatinine Estim Creat Clear Calc Estimated GFR POC Glucose 52 L* 116 H Fasting Glucose Calcium Total Bilirubin AST ALT Alkaline Phosphatase Total Protein Albumin 07/16/21 05:31 WBC RBC Hgb Hct MCV MCH MCHC RDW Plt Count MPV Immature Gran % (Auto) Neut % (Auto) Lymph % (Auto) [place] % (Auto) Eos % (Auto) Baso % (Auto) Lymph # (Auto) [place] # (Auto) Eos # (Auto) Baso # (Auto) Abs Immat Gran (auto) Absolute Neuts (auto) Absolute Nucleated RBC Nucleated RBC % (auto) Sodium 133 L Potassium 3.9 Chloride 103 Carbon Dioxide 22 Anion Gap 12 BUN 13 Creatinine 3.39 H Estim Creat Clear Calc 14.3 Estimated GFR 13 POC Glucose Fasting Glucose 161 H Calcium 8.3 L Total Bilirubin 0.2 AST 19 D ALT 6 Alkaline Phosphatase 45 Total Protein 4.7 L Albumin 2.3 L Procedures Date of Service Date of Service: 07/16/21 Assessment & Plan Assessment and plan (1) Acute on chronic kidney failure: Status: Acute Assessment and Plan: Has progressed to ESRD Initiated HD on 07/13/2021 S/P Permcath 3 days ago Hepatitis screen reviewed Renvela 800 mg tid with meals Vitamin D replacement Next HD tomorrow Outpatient HD spot arranged in [facility] ( [phone]) Shall continue to closely follow up Time Spent With Patient Time: Total time spent is greater than 50% in coordination of care (as documented) at patient's floor/unit and/or counseling patient: Progress Note: Quality Stroke Does the patient have a stroke diagnosis?: No
--- NOTE | 2021-07-16 12:45 | MHC.CM.PN ---
Addendum entered by Tanya Langford 07/16/21 12:48: CM CALLED [facility] [phone] AND INFORMED THEM OF PTS PENDING DC CM INFORMED THEY HAD SPOKEN TO THE PTS FAMILY TODAY AND THE PLAN WAS FOR PT TO ARRIVE THERE TOMORROW MORNING AT 0500 HOURS TO COMPLETE PAPERWORK PRIOR TO HER 0530 CHAIR TIME Original Note: PT WILL DC TODAY, HOME WITH RESUMPTION OF [employer] AND OUTPATIENT HD AT [facility] TO TRANSPORT
== END 2021-07-16 13:32 | disposition home health service (06) | DRG 673 ==
LOC: HO.ED 07-11 07:10 → HO.EDOVER 07-11 12:57 → HO.S3 07-11 16:18
PROVIDERS: Internal Medicine Nephrology; Radiology Diagnostic Radiology; Admitting Provider Hospitalist; Emergency Provider Student in an Organized Health Care Education/Training Program; PCP Family Medicine; Visit Provider Internal Medicine
PROC: 0JH63XZ Insertion of Tunneled Vascular Access Device into Chest Subcutaneous Tissue and Fascia, Percutaneous Approach (ICD-10-PCS; principal; 2021-07-13 09:30)
DX: I12.0 Hypertensive chronic kidney disease with stage 5 chronic kidney disease or end stage renal disease (principal); N18.6 End stage renal disease; N17.9 Acute kidney failure, unspecified; E11.22 Type 2 diabetes mellitus with diabetic chronic kidney disease; K21.9 Gastro-esophageal reflux disease without esophagitis; Z99.2 Dependence on renal dialysis; I25.10 Atherosclerotic heart disease of native coronary artery without angina pectoris; G47.33 Obstructive sleep apnea (adult) (pediatric); Z91.19 Patient's noncompliance with other medical treatment and regimen; Z20.822 Contact with and (suspected) exposure to COVID-19; Z79.4 Long term (current) use of insulin; Z79.899 Other long term (current) drug therapy
CPT/HCPCS: 36415; 36558; 71045; 71250; 74176; 80053; 81001; 82248; 82306; 82947; 83540; 83690; 83735; 83970; 84100; 84484; 85025; 85610; 86704; 86706; 87340; 87635; 90999; 93005; 99152; 99153; 99285; C1750; C1769; J1170; J2270; J2405

== ENCOUNTER → 2021-09-13 14:10 | Outpatient (REF) | payer MEDICARE, SELFPAY ==
--- NOTE | 2021-09-13 14:13 | CA_ITS ---
Transthoracic Echocardiogram Patient (Last, First, Middle): Joslyn Padilla, Gender: Female Date of : 1955 Age: 66 Procedure Date: 09/13/2021 Procedure Type: Transthoracic Echocardiogram Location: OP Height: 149.86 cm Weight: 62.6 kg BSA: 1.57 m2 Heart Rate: bpm BP: 136 / 70 mmHg Tipple Oiler: NHUNG Referring MD: Mariposa Yuan RESERVATION SALES AGENT-Gisele Edge Polisher: Jacob Barraza MD Symptoms: R60.9 - Edema, unspecified Study Quality: Fair ECG Rhythm: Sinus Conclusions: - 1. Normal LV systolic function with impaired relaxation filling pattern with suggestion of increased left ventricular end diastolic pressure with underlying regional wall motion abnormality 2. Mild aortic stenosis 3. Normal RV systolic pressure 4. No pericardial effusion Findings Left Ventricle Normal left ventricular size, thickness, and systolic function. The visually estimated ejection fraction is between 55-60%. Spectral Doppler is indicative of an impaired relaxation filling pattern. Elevated left ventricular end diastolic pressure. E/E prime ratio is between 8 and 15 consistent with indeterminate filling pressures. Wall Motion Rest Echo Findings The mid inferior and basal inferolateral segments are hypokinetic. The basal inferior and basal inferoseptal segments are akinetic. All other scored wall segments showed normal motion. Right Ventricle Normal right ventricular cavity size and systolic function. Atria The left atrium is likely dilated. There is no evidence of interatrial shunt. The right atrium is normal in size. Aortic Valve There is mild calcification of the aortic valve. There is mild aortic valve stenosis. The peak aortic gradient is 17 mmHg.The mean gradient is 10 mmHg. The aortic valve area is 1.70 cm2. There is no aortic valve regurgitation. Mitral Valve There is mild anterior and posterior mitral leaflet thickening. There is mild mitral annular calcification. There is mild mitral valve regurgitation. There is no mitral valve stenosis. Pulmonic Valve The pulmonic valve was not well visualized. Tricuspid Valve Likely normal tricuspid valve structure and function. There is mild tricuspid valve regurgitation. The right ventricular systolic pressure is normal. The right ventricular systolic pressure is 30 mmHg. Normal right atrial pressure. There is no evidence of pulmonary hypertension. Great Vessels All visible segments of the aorta are normal in size. The pulmonary artery was not well visualized. Venous The inferior vena cava is normal in size and collapses greater than 50% with inspiration. Pericardium/Pleural There is no evidence of pericardial effusion. Prior Study Comparison Changes noted compared to prior study dated: 12/06/2018. Regional wall motion abnormality noted. Mild aortic stenosis noted Measurements 2D Linear Measurements IVSd: 0.98 0.6-0.9/0.6-1.0 cm LVIDd: 5.33 3.9-5.3/4.2-5.9 cm LVIDd Index: 3.39 2.4-3.2/2.2-3.1 cm/m2 LVIDs: 4.01 2.0-3.6 cm LVPWd: 0.68 0.7-1.1 cm Ao Root: 2.80 2.1-3.5 cm LA Diam: 3.80 2.7-3.8/3.0-4.0 cm LAIDs Index: 2.42 1.5-2.3 cm/m2 LV Mass: 198.02 67-162/88-224 g LV Mass Index: 126.13 43-95/49-115 g/m2 LVOT Diam: 1.90 3.0+(-)1.3 cm 2D Systolic Function EF 4C: 60.00 >55% EF 2C: 59.90 >55% EF BiP: 58.10 >55% Mitral Valve MV Pk E: 1.02 MV PK A: 1.11 MV Decel Time: 241.00 E/A: 0.90 E'Lateral: 7.94 E'Medial: 3.37 E/E' Med: 30.30 E/E' Lat: 12.80 PHT: 71.00 MVA PHT: 3.10 Decel Isabela: 4.24 Aortic Valve AoV Pk Anton: 2.09 AoV Mn Anton: 1.49 AoV VTI: 0.47 AoV Pk Grad: 17.00 Aov Mn Grad: 10.00 CEDRIC Cont.VTI: 1.70 LVOT LVOT Pk Anton: 1.04 LVOT Mn Anton: 0.75 LVOT VTI: 0.28 LVOT Pk Grad: 4.00 LVOT Mn Grad: 3.00 LVOT Diam: 1.90 LVOT Area: 2.84 Diastolic Function MV Pk E: 1.02 MV Pk A: 1.11 E/A: 0.90 E'Medial: 3.37 E/E' Med: 30.30 E' Laterial: 7.94 E/E' Lat: 12.80 Right Ventricle TAPSE (mm): 17.10 TVS' Anton: 9.46 Tricuspid Valve TR Pk Anton: 2.59 TR Pk Grad: 27.00 RA Press: 3.00 RVSP: 30.00 Great Vessels Aorta Ao Root-2D: 2.80 2.0-3.7 cm Ao Asc: 2.90 2.1-3.4 cm Ao Arch: 3.00 Updated in Other Vendor System with Status of Final Jacob Barraza MD electronically signed on 09/14/2021 11:29:43 AM with status of Final
== END ==
LOC: HO.CARD 14:10
PROVIDERS: PCP Family Medicine; Visit Provider Nurse Practitioner Family
DX: I25.10 Atherosclerotic heart disease of native coronary artery without angina pectoris (principal); G47.33 Obstructive sleep apnea (adult) (pediatric); R60.9 Edema, unspecified
CPT/HCPCS: 93306

== ENCOUNTER → 2021-10-20 10:04 | Outpatient (REF) | payer MEDICARE, SELFPAY ==
--- NOTE | ~2021-10-20 | NM_ITS ---
Myocardial perfusion study Indication: Abnormal stress test evaluate for myocardial ischemia Technique: The patient was brought in for a Lexiscan perfusion study on 10/22/2021. Patient performed low-level exercise and was injected 0.4 mg of Lexiscan intravenously. Within a minute of injection, 25 mCi of sestamibi was given intravenously. Images were obtained using the SPECT gamma camera interlaced with the gating device. Images were obtained in supine position. Resting perfusion study was performed on 10/20/2021. Patient was administered 25 mCi of sestamibi intravenously at rest. Images were then obtained in supine position. Images obtained with and without CT attenuation. Total DLP 85 mGy-cm. Images were processed with the software and compared side to side in short axis, horizontal long axis and vertical long axis views. Findings: Both stress and rest perfusion studies were limited due to intense subdiaphragmatic uptake related to bowel uptake interfering with inferior wall uptake. The stress perfusion study showed non attenuated images shows mostly normal uptake of radiotracer in all segments of LV myocardium. Attenuation corrected images show mildly reduced uptake in the apex of the LV myocardium. Inferior wall uptake is difficult to assess on this study.. The gated study shows normal LV systolic function with visually estimated LVEF of greater than 50 %. LV cavity is normal size. The gated study shows normal systolic wall thickening and contraction of segments. Resting study shows no change in perfusion pattern compared to stress perfusion study. Gating at rest reveals normal systolic wall motion with ejection fraction at 53%. The findings are consistent with likely normal myocardial perfusion. NM/NM cardiolite stress test Impression: 1. Myocardial perfusion imaging study shows likely normal myocardial perfusion 2. Gated LVEF is 53% 3. Transient ischemic dilatation not present EKG is nondiagnostic for ischemia
--- NOTE | 2021-10-20 10:07 | CA_ITS ---
Acquisition Time: 2021-10-22 09:16:29 Total Exercise Time: 00:02:00 Test Indications: SOB, ABN ECHO Medications: SEE CHART Protocol: LEXISCAN Max HR: 089 BPM 58% of Pred: 152 BPM Max BP: 118/062 mmHG Max Work Load: 1.0 METS Pharmacologcial stress test with Lexiscan injection, while sitting and kicking her legs, without anginal symptoms, without arrythmia, with normotensive response to injection, with horizontal ST depressions inferiorly and V4-V6 in setting of baseline slight downsloping ST segments in those leads, nondiagnostic for ischemia. In recovery she reported headache and sinus pressure that was treated with Aminophylline 75mg IVP to reverse Lexiscan with resolution of symptoms. Nuclear images pending. Test reviewed with Dr Morel. Referred By: Mariposa Yuan Overread By: MARIPOSA YUAN
== END ==
LOC: HO.CARD 10:04
PROVIDERS: PCP Family Medicine; Visit Provider Nurse Practitioner Family
DX: R93.1 Abnormal findings on diagnostic imaging of heart and coronary circulation (principal); Z95.1 Presence of aortocoronary bypass graft
CPT/HCPCS: 78452; 93017; A9500; J0280; J2785

== ENCOUNTER → 2021-10-24 21:13 | Outpatient (REF) | payer MEDICARE, SELFPAY | LOC: HO.SL 21:13 | PROVIDERS: Visit Provider Psychiatry & Neurology Neurology | DX: G47.33 Obstructive sleep apnea (adult) (pediatric) (principal); I25.10 Atherosclerotic heart disease of native coronary artery without angina pectoris; Z95.1 Presence of aortocoronary bypass graft | CPT/HCPCS: 95811 ==

== ENCOUNTER → 2021-10-27 14:55 | Outpatient (BNVA) | payer OTHER, SELFPAY | PROVIDERS: PCP Family Medicine; Referring Provider Family Medicine; Visit Provider Internal Medicine | DX: I25.10 Atherosclerotic heart disease of native coronary artery without angina pectoris (principal); I12.0 Hypertensive chronic kidney disease with stage 5 chronic kidney disease or end stage renal disease; N18.6 End stage renal disease; E11.22 Type 2 diabetes mellitus with diabetic chronic kidney disease; E78.5 Hyperlipidemia, unspecified; Z99.2 Dependence on renal dialysis | CPT/HCPCS: 99212 ==

== ENCOUNTER 2021-10-29 09:03 | Outpatient (REF) | payer OTHER, SELFPAY ==
[2021-10-29 10:10] LABS: B Type Natriuretic Peptide 339 pg/mL (<100)
[2021-10-29 10:21] LABS: Alanine Aminotransferase 8 U/L (0-31); Albumin Level 4.2 g/dL (3.5-5.0); Alkaline Phosphatase 127 U/L (39-117); Anion Gap 16 (12-20); Aspartate Amino Transferase 11 U/L (5-31); Bilirubin Total 0.4 mg/dL (0.0-1.0); Blood Urea Nitrogen 39 mg/dL (9-16); Carbon Dioxide 31 mmol/L (22-29); Chloride 99 mmol/L (96-108); Cholesterol 266 mg/dL; Estimated Glomerular Filt Rate 7; Glucose Fasting 89 mg/dL (60-99); HDL Cholesterol 50 mg/dL; LDL Cholesterol Calculated 187 mg/dl; Potassium 4.9 mmol/L (3.3-5.1); Sodium 141 mmol/L (135-145); Total Protein 7.6 g/dL (6.5-8.0); Triglycerides 146 mg/dL
== END 2021-10-29 09:04 | disposition home or self-care (01) ==
LOC: HO.LAB 09:03
PROVIDERS: Absent Provider Nurse Practitioner Family; PCP Family Medicine; Visit Provider Internal Medicine
DX: E78.5 Hyperlipidemia, unspecified (principal); N17.9 Acute kidney failure, unspecified; N18.9 Chronic kidney disease, unspecified; Z95.1 Presence of aortocoronary bypass graft
CPT/HCPCS: 36415; 80053; 80061; 83880

== ENCOUNTER 2021-11-14 19:47 | Emergency (ER) | payer OTHER, SELFPAY ==
--- NOTE | ~2021-11-14 | XR_ITS ---
EXAMINATION: XR CHEST CLINICAL INFORMATION: Cough COMPARISON: 07/11/2021 TECHNIQUE: 2 views of the chest were obtained. FINDINGS: There is Bill catheter present on the right with the tip over the SVC. Patient is status post mid sternotomy. Lungs are clear. Cardiomediastinal silhouette is normal. There is no pleural effusion. XR/XR chest 2V IMPRESSION: Well-positioned Bill catheter. No acute abnormalities.
[2021-11-14 19:59] VITALS: BP 141/90; BP 171/71; PULSE 70; PULSE 71; RESP 16; TEMP 36.8; O2SAT 100; O2SAT 98; BMI 34.2
[2021-11-14 20:21] VITALS: BP 197/41; PULSE 67; RESP 16; O2SAT 100
[2021-11-14 20:25] LABS: Glucose, Whole Blood 280 mg/dL (60-115)
--- NOTE | 2021-11-14 21:17 | ECG_ITS ---
Test Reason : FLANK PAIN Blood Pressure : / mmHG Vent. Rate : 066 BPM Atrial Rate : 066 BPM P-R Int : 162 ms QRS Dur : 096 ms QT Int : 440 ms P-R-T Axes : 056 023 039 degrees QTc Int : 461 ms Normal sinus rhythm Incomplete right bundle branch block Septal infarct (cited on or before 28-NOV-2017) Abnormal ECG When compared with ECG of 11-JUL-2021 03:51, No significant change was found Referred By: Tram Colon Electronically Signed By:RUSTY DUVALL MD
[2021-11-14 22:16] LABS: MANUAL DIFF FLAG NO
--- NOTE | 2021-11-14 22:17 | ED.GENADULT ---
HPI - General Adult General Chief complaint: General Medical Stated complaint: Flank pain Time Seen by Provider: 11/14/21 21:13 Source: patient, family and translator interpreter Mode of arrival: EMS History of Present Illness HPI narrative: 66-year-old female with diabetes, ESRD with dialysis catheter who comes in via EMS for complaints right-sided posterior back pain that is worse than her usual back pain and not associated with should, fevers, chills, new cough, nausea, vomiting, or diarrhea. Patient also denies any urinary pain/burning/frequency. Patient sources she still has her gallbladder. Related Data Home Medications Medication Instructions Recorded Confirmed aspirin 81 mg tablet,delayed 81 mg PO BEDTIME 06/10/20 10/27/21 release atorvastatin 80 mg tablet 80 mg PO BEDTIME 06/10/20 10/27/21 ferrous sulfate 325 mg (65 mg 325 mg PO BIDWM 06/10/20 10/27/21 iron) tablet hydralazine 10 mg tablet 10 mg PO BID tab 06/10/20 10/27/21 pantoprazole 40 mg tablet,delayed 40 mg PO DAILY@0630 06/10/20 10/27/21 release sertraline 100 mg tablet 150 mg PO DAILY tab 06/10/20 10/27/21 ascorbic acid (vitamin C) 500 mg 1 tab PO BID 12/03/20 10/27/21 tablet (Vitamin C) calcitriol 0.25 mcg capsule 1 cap PO Q2D 12/03/20 10/27/21 melatonin 5 mg tablet 1 tab PO BEDTIME 12/03/20 10/27/21 montelukast 10 mg tablet 1 tab PO BEDTIME 12/03/20 10/27/21 furosemide 40 mg tablet 120 mg PO BID tab 05/06/21 10/27/21 albuterol sulfate 90 mcg/actuation 2 puff INHALATION Q4-6H PRN 07/11/21 10/27/21 aerosol inhaler (ProAir HFA) amlodipine 10 mg tablet 10 mg PO DAILY 07/11/21 10/27/21 cholecalciferol (vitamin D3) 25 1 tab PO DAILY 07/11/21 10/27/21 mcg (1,000 unit) tablet docusate sodium 100 mg capsule 1 cap PO BID 07/11/21 10/27/21 fluticasone propionate 110 2 puff INHALATION BID 07/11/21 10/27/21 mcg/actuation HFA aerosol inhaler (Flovent HFA) insulin glargine 100 unit/mL (3 28 unit SUBCUT BEDTIME 07/11/21 10/27/21 mL) subcutaneous pen (Lantus Solostar U-100 Insulin) cetirizine 5 mg tablet 5 mg PO DAILY 10/27/21 10/27/21 sevelamer carbonate 800 mg tablet 800 mg PO DIRECTED 10/27/21 10/27/21 Previous Rx's Medication Instructions Recorded carvedilol 6.25 mg tablet 6.25 mg PO BID 90 Days #180 tab 04/01/21 ezetimibe 10 mg tablet (Zetia) 10 mg PO DAILY #30 tab 10/29/21 Allergies Allergy/AdvReac Type Severity Reaction Status Date / Time No Known Allergies Allergy Verified 10/27/21 15:05 Review of Systems Review of Systems: Pertinent positives and negatives as stated in HPI 10 point review of systems is otherwise negative. [facility] Past Medical History Source: nursing notes reviewed Medical History Asthma Atherosclerotic cardiovascular disease Chronic kidney disease Depression DJD (degenerative joint disease) Edema Essential hypertension Hypercalcemia SHELIA (obstructive sleep apnea) Other and unspecified hyperlipidemia Type 2 diabetes mellitus with unspecified complications Surgical History History of coronary artery bypass graft (~2018) Family History Family History Father Cardiovascular disease Hypertension Mother Cardiovascular disease Hypertension Social History Social History Household Members: Family Household Members Other:: with son Housing: Apartment Do you presently have visiting nurse or other home services: Yes Alcohol intake: never Patient Tobacco Use Status: Tobacco use Unknown Advance Directives: Yes Advance Directives on File: Yes Advance Directives Date on File: 12/03/20 service: No 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al status: disabled Physical Exam ED Vital Signs: Vital Signs - 24 hr 11/14/21 19:59 11/14/21 20:21 11/14/21 22:56 Temperature 98.2 F Pulse Rate 70 67 66 Respiratory Rate 16 16 18 Blood Pressure 171/71 H 197/41 H 185/70 H Pulse Oximetry 98 100 100 BMI result Body Mass Index 34.2 VITAL SIGNS: Reviewed. GENERAL: Well developed, well nourished, in no acute distress. HEAD: Normocephalic/atraumatic EYES: PERRLA, EOMI EARS: Ext canals without abnormality OROPHARYNX: no oral lesions noted, posterior pharynx clear LUNGS: Normal breath sounds. No adventitious sounds or accessory muscle use. SpO2<98> CARDIOVASCULAR: Regular rate and rhythm without noted murmurs, no JVD or lower extremity edema. ABDOMEN: Soft, non-tender, non-distended with bowel sounds. BACK: No CVA tenderness but pain on palpation over the right lower posterior ribs without deformity/crepitus and no evidence of erythema or induration at the site and no midline vertebral tenderness. MUSCULOSKELETAL: No tenderness, deformities, or effusions noted on gross inspection. EXTREMITIES: No cyanosis, clubbing or edema. SKIN: Inspection of the skin reveals no rashes NEUROLOGIC: Alert and oriented x 4. Strength and sensation to light touch were grossly intact x 4. Course Course Course Narrative: 66-year-old female with history and clinical presentation acute on chronic right-sided back discomfort there is no evidence in history and clinical exam to suggest pneumonia/pneumothorax/traumatic injury and abdomen exam is otherwise benign. Will obtain urinalysis as well as chest x-ray and provide analgesics. Patient recently underwent a Lexiscan nondiagnostic for ischemia . Review of all investigations otherwise negative for acute findings when compared to prior/chronic results. On re-evaluation patient is feeling much better and is ready to go home. All results were discussed with her at bedside and she was encouraged to follow-up with primary care provider. Medical Decision Making Lab Data Result diagrams: 11/14/21 22:13 11/14/21 22:13 Labs: Lab Results 11/14/21 11/14/21 11/14/21 Range/Units 20:20 22:13 22:13 WBC 5.9 (4.8-10.8) X10*3/uL RBC 3.71 L (4.20-5.50) X10*6/uL Hgb 11.3 L D (12.0-16.0) g/dl Hct 34.1 L (37.0-47.0) % MCV 91.9 (80.0-98.0) fL MCH 30.5 (27.0-33.0) pg MCHC 33.1 (31.0-35.0) g/dl RDW 14.4 (11.0-16.0) % Plt Count 159 L (160-400) X10*3/uL MPV 10.4 (9.4-12.3) fL Immature Gran % (Auto) 0.5 H (0.0-0.4) % Neut % (Auto) 70.1 (45-73) % Lymph % (Auto) 18.9 L (20-40) % [place] % (Auto) 8.4 (2-11) % Eos % (Auto) 1.9 (0-4) % Baso % (Auto) 0.2 (0-2) % Lymph # (Auto) 1.1 L (1.2-4.9) X10*3/uL [place] # (Auto) 0.5 (0.1-1.2) X10*3/uL Eos # (Auto) 0.1 (0.0-0.4) X10*3/uL Baso # (Auto) 0.0 (0.0-0.2) X10*3/uL Abs Immat Gran (auto) 0.03 (0.00-0.03) X10*3/uL Absolute Neuts (auto) 4.2 (2.0-8.3) x10*3/uL Absolute Nucleated RBC 0.000 (0.0-0.012) X10*3/uL Nucleated RBC % (auto) 0.0 (0.0-0.2) /100WBC Sodium 138 (135-145) mmol/L Potassium 4.5 (3.3-5.1) mmol/L Chloride 99 (96-108) mmol/L Carbon Dioxide 27 (22-29) mmol/L Anion Gap 17 (12-20) BUN 51 H (9-16) mg/dL Creatinine 6.48 H* (0.5-1.4) mg/dL Estim Creat Clear Calc 6.8 Estimated GFR 6 POC Glucose 280 H (60-115) mg/dL Random Glucose 225 H (60-115) mg/dL Calcium 9.8 (8.4-10.2) mg/dL Total Bilirubin 0.6 (0.0-1.0) mg/dL AST 12 (5-31) U/L ALT 7 (0-31) U/L Alkaline Phosphatase 150 H (39-117) U/L Total Protein 6.9 (6.5-8.0) g/dL Albumin 3.8 (3.5-5.0) g/dL Acetone, Qual Negative (Negative) ECG Data Attestation: I personally reviewed and interpreted this ECG as follows: Prior ECG tracings: available for review Interpretation: NSR, HR -66, incomplete right bundle branch block, GA/QRS/QTC are within normal limits. Discharge Plan Discharge Clinical Impression: Back pain, ESRD (end stage renal disease) on dialysis, Hypertension Patient Disposition: Home, Self-Care Instructions: Back Pain (ED) Additional Instructions: 1. Reanudar todos los medicamentos caseros seg?n lo prescrito. 2. Tylenol 1000 mg, por v?a oral, cada 6 horas seg?n sea necesario para controlar el dolor. No exceda los 4000 mg dentro de las 24 horas. 3. Parche de lidoca?na, debe aplicarse en el ?kavon de m?xima sensibilidad shivani se indica en el empaque exterior. 4. Jair un seguimiento con mclean proveedor de atenci?n primaria el lunes por la ma?jannie para jose reevaluaci?n y un manejo ambulatorio adicional. Regrese a la dilcia de emergencias si los s?ntomas empeoran. Prescriptions: No Action carvedilol 6.25 mg tablet 6.25 mg PO BID 90 Days Qty: 180 3RF Rx Instructions: must administer with a meal/food ezetimibe [Zetia] 10 mg tablet 10 mg PO DAILY Qty: 30 5RF ascorbic acid (vitamin C) [Vitamin C] 500 mg tablet 1 tab PO BID 0RF montelukast 10 mg tablet 1 tab PO BEDTIME 0RF calcitriol 0.25 mcg capsule 1 cap PO Q2D 0RF melatonin 5 mg tablet 1 tab PO BEDTIME 0RF docusate sodium 100 mg capsule 1 cap PO BID 0RF albuterol sulfate [ProAir HFA] 90 mcg/actuation Hfa Aerosol Inhaler 2 puff INHALATION Q4-6H PRN (Reason: Shortness Of Breath) 0RF Flovent HFA 110 mcg/actuation HFA aerosol inhaler 2 puff inhalation BID 0RF cholecalciferol (vitamin D3) 25 mcg (1,000 unit) tablet 1 tab PO DAILY 0RF Lantus Solostar U-100 Insulin 100 unit/mL (3 mL) insulin pen 28 unit subcut BEDTIME 0RF amlodipine 10 mg tablet 10 mg PO DAILY 0RF aspirin 81 mg tablet,delayed release (DR/EC) 81 mg PO BEDTIME 0RF atorvastatin 80 mg tablet 80 mg PO BEDTIME 0RF hydralazine 10 mg tablet 10 mg PO BID 0RF ferrous sulfate 325 mg (65 mg iron) tablet 325 mg PO BIDWM 0RF pantoprazole 40 mg tablet,delayed release (DR/EC) 40 mg PO DAILY@0630 0RF sertraline 100 mg tablet 150 mg PO DAILY 0RF furosemide 40 mg tablet 120 mg PO BID 0RF sevelamer carbonate 800 mg tablet 800 mg PO DIRECTED 0RF cetirizine 5 mg tablet 5 mg PO DAILY 0RF Referrals: Patricia Ingram MD [Primary Care Provider] - Print Language: Senegalese
[2021-11-14 22:18] LABS: Basophils Percent Auto 0.2 % (0-2); Eosinophils Absolute Auto 0.1 X10*3/uL (0.0-0.4); Eosinophils Percent Auto 1.9 % (0-4); Hematocrit 34.1 % (37.0-47.0); Hemoglobin 11.3 g/dl (12.0-16.0); Imm Gran Abs Auto 0.03 X10*3/uL (0.00-0.03); Imm Gran Pct Auto 0.5 % (0.0-0.4); Lymphocytes Absolute Auto 1.1 X10*3/uL (1.2-4.9); Lymphocytes Percent Auto 18.9 % (20-40); Mean Corpuscular HGB Conc 33.1 g/dl (31.0-35.0); Mean Corpuscular Hemoglobin 30.5 pg (27.0-33.0); Mean Corpuscular Volume 91.9 fL (80.0-98.0); Mean Platelet Volume 10.4 fL (9.4-12.3); Monocytes Absolute Auto 0.5 X10*3/uL (0.1-1.2); Monocytes Percent Auto 8.4 % (2-11); Neutrophils Absolute Auto 4.2 x10*3/uL (2.0-8.3); Neutrophils Percent Auto 70.1 % (45-73); Platelet Count 159 X10*3/uL (160-400); Red Blood Count 3.71 X10*6/uL (4.20-5.50); Red Cell Distribution Width 14.4 % (11.0-16.0); White Blood Count 5.9 X10*3/uL (4.8-10.8)
[2021-11-14 22:32] LABS: Acetone, serum QL Negative (Negative)
[2021-11-14] MEDS: Acetaminophen 325 MG TABLET 975 MG PO (22:38)
[2021-11-14] MEDS: Lidocaine 4 % Patch ADH..PATCH 1 PATCH TRANSDERMA (22:39)
[2021-11-14 22:46] LABS: Alanine Aminotransferase 7 U/L (0-31); Albumin Level 3.8 g/dL (3.5-5.0); Alkaline Phosphatase 150 U/L (39-117); Anion Gap 17 (12-20); Aspartate Amino Transferase 12 U/L (5-31); Bilirubin Total 0.6 mg/dL (0.0-1.0); Blood Urea Nitrogen 51 mg/dL (9-16); Calcium 9.8 mg/dL (8.4-10.2); Carbon Dioxide 27 mmol/L (22-29); Chloride 99 mmol/L (96-108); Creatinine Clr Calc Pharmacy 6.8; Estimated Glomerular Filt Rate 6; Glucose Random 225 mg/dL (60-115); Potassium 4.5 mmol/L (3.3-5.1); Sodium 138 mmol/L (135-145); Total Protein 6.9 g/dL (6.5-8.0)
[2021-11-14 22:56] VITALS: BP 185/70; PULSE 66; RESP 18; O2SAT 100
== END 2021-11-14 23:32 | disposition home or self-care (01) ==
PROVIDERS: Emergency Provider Student in an Organized Health Care Education/Training Program; PCP Family Medicine
DX: M54.9 Dorsalgia, unspecified (principal); E11.22 Type 2 diabetes mellitus with diabetic chronic kidney disease; I12.0 Hypertensive chronic kidney disease with stage 5 chronic kidney disease or end stage renal disease; N18.6 End stage renal disease; J45.909 Unspecified asthma, uncomplicated; I25.10 Atherosclerotic heart disease of native coronary artery without angina pectoris; Z99.2 Dependence on renal dialysis; Z95.1 Presence of aortocoronary bypass graft
CPT/HCPCS: 36415; 71046; 80053; 82009; 82947; 85025; 93005; 99283; 99284

== ENCOUNTER 2021-11-16 18:12 | Emergency (ER) | payer OTHER, SELFPAY ==
--- NOTE | ~2021-11-16 | CT_ITS ---
EXAMINATION: CT ABDOMEN AND PELVIS WITHOUT CONTRAST CLINICAL INFORMATION: Right flank pain with question of kidney stone. COMPARISON: CT abdomen pelvis 07/11/2021 TECHNIQUE: Multidetector volumetric imaging was performed from the superior aspect of the liver through the pubic symphysis. Sagittal and coronal reformatted images were obtained on the technologist's workstation. This CT examination was performed using dose optimization techniques as appropriate, variously including the following: *Automated exposure control *Adjustment of mA and/or kV according to patient size (this includes techniques or standardized protocols for targeted exams where dose is matched to indication/reason for exam; i.e. extremities or head) *Use of iterative reconstruction technique DLP: 494 mGy-cm FINDINGS: LUNG BASES: The visualized lung bases are unremarkable. LIVER, GALLBLADDER, AND BILIARY TREE: The liver is normal in size, shape, and attenuation. No focal hepatic lesion or biliary ductal dilatation is present. The gallbladder is unremarkable with no evidence of radiopaque gallstones, gallbladder wall thickening, or obvious pericholecystic inflammatory changes. PANCREAS: Unremarkable. SPLEEN: Unremarkable. ADRENAL GLANDS: Both adrenal glands demonstrate some mild hypertrophy, unchanged from prior KIDNEYS AND URETERS: The kidneys are normal in size, shape, and attenuation. No hydronephrosis, hydroureter, or calculi seen. There is bilateral nonspecific unchanged perinephric stranding. BLADDER: Poorly filled with a symmetrically thickened wall GASTROINTESTINAL TRACT: The small and large bowel are unremarkable aside from a few scattered colonic diverticula. The appendix is unremarkable. ABDOMINAL WALL: No significant hernia is appreciated. LYMPH NODES: Some small shotty para-aortic lymph nodes are present but there is no retroperitoneal lymphadenopathy. VASCULAR: Unremarkable. PELVIC VISCERA: Bulky anteverted uterus is present with some exophytic fibroids. OSSEOUS STRUCTURES: Unremarkable. CT/CT abdomen pelvis wo con IMPRESSION: 1. An etiology for the patient's right flank pain has not been found. No renal calculi or obstructive uropathy is seen. 2. Incidental findings as described above. Fleischner guidelines were followed.
[2021-11-16 18:19] VITALS: BP 139/53; BP 160/72; PULSE 68; PULSE 91; RESP 20; TEMP 36.6; O2SAT 98; BMI 31.1
--- NOTE | 2021-11-16 19:48 | ECG_ITS ---
Test Reason : BACK PAIN Blood Pressure : / mmHG Vent. Rate : 066 BPM Atrial Rate : 066 BPM P-R Int : 154 ms QRS Dur : 090 ms QT Int : 456 ms P-R-T Axes : 057 024 104 degrees QTc Int : 478 ms Normal sinus rhythm RSR' or QR pattern in V1 suggests right ventricular conduction delay Septal infarct (cited on or before 28-NOV-2017) Abnormal ECG When compared with ECG of 14-NOV-2021 21:32, No significant change was found Referred By: Ronnell Christensen Electronically Signed By:RUSTY DUVALL MD
[2021-11-16] MEDS: Ketorolac Tromethamine 15 MG/ML VIAL IVPUSH (20:16)
[2021-11-16] MEDS: ondansetron HCL 4 MG/2 ML VIAL IVPUSH (20:16)
[2021-11-16 20:18] LABS: MANUAL DIFF FLAG NO
[2021-11-16 20:19] LABS: Basophils Percent Auto 0.2 % (0-2); Eosinophils Absolute Auto 0.1 X10*3/uL (0.0-0.4); Eosinophils Percent Auto 1.3 % (0-4); Hematocrit 35.1 % (37.0-47.0); Hemoglobin 11.8 g/dl (12.0-16.0); Imm Gran Abs Auto 0.02 X10*3/uL (0.00-0.03); Imm Gran Pct Auto 0.4 % (0.0-0.4); Lymphocytes Absolute Auto 1.1 X10*3/uL (1.2-4.9); Lymphocytes Percent Auto 20.9 % (20-40); Mean Corpuscular HGB Conc 33.6 g/dl (31.0-35.0); Mean Corpuscular Hemoglobin 30.7 pg (27.0-33.0); Mean Corpuscular Volume 91.4 fL (80.0-98.0); Mean Platelet Volume 10.7 fL (9.4-12.3); Monocytes Absolute Auto 0.5 X10*3/uL (0.1-1.2); Monocytes Percent Auto 10.1 % (2-11); Neutrophils Absolute Auto 3.6 x10*3/uL (2.0-8.3); Neutrophils Percent Auto 67.1 % (45-73); Platelet Count 174 X10*3/uL (160-400); Red Blood Count 3.84 X10*6/uL (4.20-5.50); Red Cell Distribution Width 14.6 % (11.0-16.0); White Blood Count 5.4 X10*3/uL (4.8-10.8)
[2021-11-16 20:44] LABS: Troponin-I High Sensitivity 14.3 ng/L (<3.5-17.0)
[2021-11-16 20:55] LABS: Alanine Aminotransferase 12 U/L (0-31); Albumin Level 3.9 g/dL (3.5-5.0); Alkaline Phosphatase 127 U/L (39-117); Anion Gap 15 (12-20); Aspartate Amino Transferase 17 U/L (5-31); Bilirubin Total 0.6 mg/dL (0.0-1.0); Blood Urea Nitrogen 32 mg/dL (9-16); Calcium 9.3 mg/dL (8.4-10.2); Carbon Dioxide 35 mmol/L (22-29); Chloride 96 mmol/L (96-108); Creatinine Clr Calc Pharmacy 9.7; Estimated Glomerular Filt Rate 9; Glucose Random 176 mg/dL (60-115); Lipase 139 U/L (8-78); Potassium 4.3 mmol/L (3.3-5.1); Sodium 142 mmol/L (135-145); Total Protein 7.2 g/dL (6.5-8.0)
[2021-11-16 21:20] VITALS: BP 140/62; PULSE 66; RESP 20; TEMP 37; O2SAT 94
[2021-11-16] MEDS: oxyCODONE HCl Immed Release 5 MG TABLET PO (21:30)
--- NOTE | 2021-11-16 21:48 | PC.NURSE ---
pt ambulated to BR using cane to attempt to void, standby assist by research food technologist
[2021-11-16 22:00] LABS: Appearance Urine CLEAR; Color Urine YELLOW; Glucose Urine UA 250 MG/DL (NEG); Leukocyte Esterase Urine NEG (NEG); Nitrite Urine NEG (NEG); PH 7.5 (5.0-8.0); Specific Gravity - Urine 1.015 (1.005-1.025); UACC Culture Trigger NO; Urine Blood TRACE (NEG); Urine Ketones NEG (NEG); Urine Protein 3+ MG/DL (NEG-TRACE)
[2021-11-16 22:37] LABS: Bacteria Urine 1+ /LPF; Squamous Epithelial Cell Urine TRACE /LPF
--- NOTE | 2021-11-16 22:52 | ED_ITS ---
HPI - Back Pain/Injury General Chief Complaint: Back Pain/Injury Stated Complaint: lower back pain Time Seen by Provider: 11/16/21 18:32 Source: patient and family (Son) Mode of arrival: ambulatory Limitations: language barrier (Patient speaks Scottish only, the son speaks Spani sh and Romanian, interpreter and translator was used) History of Present Illness HPI Narrative: 66-year-old female who presents emergency department for evaluation of back pain. The patient developed back pain on Monday, 3 days prior to evaluation. She states that the pain came on gradually. She does not recount any injury. She points to her right lower back and flank area when asked to localize the pain. The pain is a constant stabbing pain that is greater than 10/10. The patient was seen in the emergency department on 11/14/2021 for the same pain. Her evaluation was unremarkable. She was advised to take Tylenol and to use lidocaine patches. Patient states that despite this treatment her pain is gotten worse. The patient does have end-stage renal disease and she is dialyzed on Monday, and Monday. She states she did complete a full dialysis today. She does make urine. She denies any dysuria. She states she does urinate frequently and this is unchanged. She denied fever, chills, numbness, weakness. Related Data Home Medications Medication Instructions Recorded Confirmed aspirin 81 mg tablet,delayed 81 mg PO BEDTIME 06/10/20 10/27/21 release atorvastatin 80 mg tablet 80 mg PO BEDTIME 06/10/20 10/27/21 ferrous sulfate 325 mg (65 mg 325 mg PO BIDWM 06/10/20 10/27/21 iron) tablet hydralazine 10 mg tablet 10 mg PO BID tab 06/10/20 10/27/21 pantoprazole 40 mg tablet,delayed 40 mg PO DAILY@0630 06/10/20 10/27/21 release sertraline 100 mg tablet 150 mg PO DAILY tab 06/10/20 10/27/21 ascorbic acid (vitamin C) 500 mg 1 tab PO BID 12/03/20 10/27/21 tablet (Vitamin C) calcitriol 0.25 mcg capsule 1 cap PO Q2D 12/03/20 10/27/21 melatonin 5 mg tablet 1 tab PO BEDTIME 12/03/20 10/27/21 montelukast 10 mg tablet 1 tab PO BEDTIME 12/03/20 10/27/21 furosemide 40 mg tablet 120 mg PO BID tab 05/06/21 10/27/21 albuterol sulfate 90 mcg/actuation 2 puff INHALATION Q4-6H PRN 07/11/21 10/27/21 aerosol inhaler (ProAir HFA) amlodipine 10 mg tablet 10 mg PO DAILY 07/11/21 10/27/21 cholecalciferol (vitamin D3) 25 1 tab PO DAILY 07/11/21 10/27/21 mcg (1,000 unit) tablet docusate sodium 100 mg capsule 1 cap PO BID 07/11/21 10/27/21 fluticasone propionate 110 2 puff INHALATION BID 07/11/21 10/27/21 mcg/actuation HFA aerosol inhaler (Flovent HFA) insulin glargine 100 unit/mL (3 28 unit SUBCUT BEDTIME 07/11/21 10/27/21 mL) subcutaneous pen (Lantus Solostar U-100 Insulin) cetirizine 5 mg tablet 5 mg PO DAILY 10/27/21 10/27/21 sevelamer carbonate 800 mg tablet 800 mg PO DIRECTED 10/27/21 10/27/21 Previous Rx's Medication Instructions Recorded carvedilol 6.25 mg tablet 6.25 mg PO BID 90 Days #180 tab 04/01/21 ezetimibe 10 mg tablet (Zetia) 10 mg PO DAILY #30 tab 10/29/21 cyclobenzaprine 5 mg tablet 5 mg PO TID PRN #14 tab 11/16/21 oxycodone 5 mg tablet 5 mg PO Q6H PRN #14 tab 11/16/21 Allergies Allergy/AdvReac Type Severity Reaction Status Date / Time No Known Allergies Allergy Verified 10/27/21 15:05 Review of Systems Review of Systems: Yes all other systems are reviewed and are negative [facility] Past Medical History [facility] Narrative: Social history: She denies tobacco, alcohol and drug use. Medical History Asthma Atherosclerotic cardiovascular disease Chronic kidney disease Depression DJD (degenerative joint disease) Edema Essential hypertension Hypercalcemia SHELIA (obstructive sleep apnea) Other and unspecified hyperlipidemia Type 2 diabetes mellitus with unspecified complications Surgical History History of coronary artery bypass graft (~2018) Family History Family History Father Cardiovascular disease Hypertension Mother Cardiovascular disease Hypertension Social History Social History Household Members: Family Household Members Other:: with son Housing: Apartment Do you presently have visiting nurse or other home services: Yes Alcohol intake: never Patient Tobacco Use Status: Tobacco use Unknown Advance Directives: Yes Advance Directives on File: Yes Advance Directives Date on File: 12/03/20 service: No 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al status: disabled Physical Exam Vital Signs: Vital Signs: Last Vital Signs Temp 98.6 F 11/16/21 21:20 Pulse 66 11/16/21 21:20 Resp 20 11/16/21 21:20 BP 140/62 H 11/16/21 21:20 Pulse Ox 94 11/16/21 21:20 BMI result Body Mass Index 31.1 Const: General: cooperative and no acute distress Orientation/consciousness: oriented to person and oriented to place Limitations: no limitations HEENT: Head: Yes normal to inspection, Yes normocephalic and Yes atraumatic Ears: external ears normal General nose exam: Normal external nose present Face and sinus: Yes normal facial exam Mouth: Normal oral and palatal mucosa present Throat: Yes posterior oropharynx normal Eyes: General: appearance normal, both eyes and all related structures Pupils: Equal, round and reactive pupils present Neck: Neck: Yes normal visual inspection, Yes no lymphadenopathy, Yes trachea midline and Yes supple Chest: Other: Patient does have a right chest wall dialysis catheter. She does have tenderness palpation of her anterior chest Chest palpation & inspection: normal inspection of the chest Resp: Effort & Inspection: normal respiratory effort and able to speak in complete sentences Auscultation: clear to auscultation bilaterally Cardio: Rate: regular rate Rhythm: regular rhythm Heart sounds: S1 normal heart sound present, S2 normal heart sound present and no murmurs GI: Inspection: Yes normal to inspection Palpation (GI): Soft to palpation, nontender and no guarding Auscultation: normal bowel sounds Back/Spine/Pelvis: Other: The patient does have tenderness with palpation her paraspinal muscles on the right lumbar sacral area,, she also has moderate right CVA tenderness, there are no rashes or lesions noted over the area of tenderness, no increased skin warmth. Skin: General skin exam: no rashes or lesions noted Neuro: General: oriented to person and oriented to place Cranial nerves: Yes CN's II-XII intact bilaterally and Yes Equal, round and reactive pupils present Cognition (Neuro): normal cognition Motor exam (neuro): 5/5 motor strength present throughout Extrem: General: Yes normal to inspection Psych: Appearance: grossly normal Speech and movement: Normal speech and movement present Affect: normal affect Attitude: cooperative Thought process: Normal thought process present Thought content: Normal thought content present Course Course Course Narrative: 66-year-old female who presents emergency department for evaluation 4 days of the right flank and right lower back pain. Patient does not recount any injury. The pain did come on gradually, the pain is been constant and is severe, greater than 10/10. She was seen 2 days prior in the emergency department and had a negative workup. She has been taking Tylenol with no relief for pain. Patient does have end-stage renal disease and does make urine, she has had no dysuria but she does have urinary frequency which she states is normal for her. Vital signs were unremarkable. Examination did reveal tenderness palpation of the paraspinal muscles in the right lumbar sacral area as well as right-sided CVA tenderness. There is no rashes or lesions or increased skin warmth noted to the area of tenderness. Differential includes was not limited to musculoskeletal injury, herpes zoster, kidney stone, pyelonephritis, UTI. Laboratory evaluation and CT scan of the abdomen pelvis without IV contrast was ordered. Patient was ordered to get Toradol 15 mg IV and Zofran 4 mg IV. 2300: Laboratory evaluation: Anemia with an H&H of 11.8 and 35-chronic. Elevated BUN creatinine 32 and 4.7-chronic. Elevated lipase 139. Urinalysis negative nitrates, negative leukocyte esterase. Microscopic revealed 1-4 RBCs, 1-4 WBCs and 1+ bacteria. Radiology evaluation: CT abdomen pelvis without IV contrast radiology impression revealed no etiology for the patient's right flank pain. Patient only had minimal relief for pain with the IV Toradol. She was treated with oxycodone 5 mg orally and cyclobenzaprine 5 mg orally with some improvement of her pain. The patient most likely has musculoskeletal injury as the cause of her pain. The shingles needs to be considered I did discuss this with the patient and the patient's son. Patient was discharged home with prescriptions for oxycodone and cyclobenzaprine. She was advised to continue taking Tylenol. MDM - Back Pain/Injury Lab Data Result diagrams: 11/16/21 20:13 11/16/21 20:13 Labs: Lab Results 11/16/21 11/16/21 11/16/21 Range/Units 20:13 20:13 20:13 WBC 5.4 (4.8-10.8) X10*3/uL RBC 3.84 L (4.20-5.50) X10*6/uL Hgb 11.8 L (12.0-16.0) g/dl Hct 35.1 L (37.0-47.0) % MCV 91.4 (80.0-98.0) fL MCH 30.7 (27.0-33.0) pg MCHC 33.6 (31.0-35.0) g/dl RDW 14.6 (11.0-16.0) % Plt Count 174 (160-400) X10*3/uL MPV 10.7 (9.4-12.3) fL Immature Gran % (Auto) 0.4 (0.0-0.4) % Neut % (Auto) 67.1 (45-73) % Lymph % (Auto) 20.9 (20-40) % [place] % (Auto) 10.1 (2-11) % Eos % (Auto) 1.3 (0-4) % Baso % (Auto) 0.2 (0-2) % Lymph # (Auto) 1.1 L (1.2-4.9) X10*3/uL [place] # (Auto) 0.5 (0.1-1.2) X10*3/uL Eos # (Auto) 0.1 (0.0-0.4) X10*3/uL Baso # (Auto) 0.0 (0.0-0.2) X10*3/uL Abs Immat Gran (auto) 0.02 (0.00-0.03) X10*3/uL Absolute Neuts (auto) 3.6 (2.0-8.3) x10*3/uL Absolute Nucleated RBC 0.000 (0.0-0.012) X10*3/uL Nucleated RBC % (auto) 0.0 (0.0-0.2) /100WBC Sodium 142 (135-145) mmol/L Potassium 4.3 (3.3-5.1) mmol/L Chloride 96 (96-108) mmol/L Carbon Dioxide 35 H (22-29) mmol/L Anion Gap 15 (12-20) BUN 32 H (9-16) mg/dL Creatinine 4.71 H* (0.5-1.4) mg/dL Estim Creat Clear Calc 9.7 Estimated GFR 9 Random Glucose 176 H (60-115) mg/dL Calcium 9.3 (8.4-10.2) mg/dL Total Bilirubin 0.6 (0.0-1.0) mg/dL AST 17 D (5-31) U/L ALT 12 (0-31) U/L Alkaline Phosphatase 127 H (39-117) U/L Troponin I High Sens 14.3 (<3.5-17.0) ng/L Total Protein 7.2 (6.5-8.0) g/dL Albumin 3.9 (3.5-5.0) g/dL Lipase 139 H (8-78) U/L Urine Color Urine Appearance Urine pH (5.0-8.0) Ur Specific [place] (1.005-1.025) Urine Protein (NEG-TRACE) MG/DL Urine Glucose (UA) (NEG) MG/DL Urine Ketones (NEG) MG/DL Urine Blood (NEG) Urine Nitrite (NEG) Ur Leukocyte Esterase (NEG) Urine RBC (0) /HPF Urine WBC (0-4) /HPF Ur Squamous Epith Cells /LPF Urine Bacteria /LPF 11/16/21 Range/Units 21:50 WBC (4.8-10.8) X10*3/uL RBC (4.20-5.50) X10*6/uL Hgb (12.0-16.0) g/dl Hct (37.0-47.0) % MCV (80.0-98.0) fL MCH (27.0-33.0) pg MCHC (31.0-35.0) g/dl RDW (11.0-16.0) % Plt Count (160-400) X10*3/uL MPV (9.4-12.3) fL Immature Gran % (Auto) (0.0-0.4) % Neut % (Auto) (45-73) % Lymph % (Auto) (20-40) % [place] % (Auto) (2-11) % Eos % (Auto) (0-4) % Baso % (Auto) (0-2) % Lymph # (Auto) (1.2-4.9) X10*3/uL [place] # (Auto) (0.1-1.2) X10*3/uL Eos # (Auto) (0.0-0.4) X10*3/uL Baso # (Auto) (0.0-0.2) X10*3/uL Abs Immat Gran (auto) (0.00-0.03) X10*3/uL Absolute Neuts (auto) (2.0-8.3) x10*3/uL Absolute Nucleated RBC (0.0-0.012) X10*3/uL Nucleated RBC % (auto) (0.0-0.2) /100WBC Sodium (135-145) mmol/L Potassium (3.3-5.1) mmol/L Chloride (96-108) mmol/L Carbon Dioxide (22-29) mmol/L Anion Gap (12-20) BUN (9-16) mg/dL Creatinine (0.5-1.4) mg/dL Estim Creat Clear Calc Estimated GFR Random Glucose (60-115) mg/dL Calcium (8.4-10.2) mg/dL Total Bilirubin (0.0-1.0) mg/dL AST (5-31) U/L ALT (0-31) U/L Alkaline Phosphatase (39-117) U/L Troponin I High Sens (<3.5-17.0) ng/L Total Protein (6.5-8.0) g/dL Albumin (3.5-5.0) g/dL Lipase (8-78) U/L Urine Color YELLOW Urine Appearance CLEAR Urine pH 7.5 (5.0-8.0) Ur Specific [place] 1.015 (1.005-1.025) Urine Protein 3+ H (NEG-TRACE) MG/DL Urine Glucose (UA) 250 H (NEG) MG/DL Urine Ketones NEG (NEG) MG/DL Urine Blood TRACE (NEG) Urine Nitrite NEG (NEG) Ur Leukocyte Esterase NEG (NEG) Urine RBC 1-4 (0) /HPF Urine WBC 1-4 (0-4) /HPF Ur Squamous Epith Cells TRACE /LPF Urine Bacteria 1+ /LPF Discharge Plan Discharge Clinical Impression: Acute right flank pain Lower back pain Qualifiers: Chronicity: acute Back pain laterality: right Patient Disposition: Home, Self-Care Instructions: Flank Pain (ED) Additional Instructions: At this time, I believe that your pain is caused by the muscles of your lower back. Shingles needs to be considered however you do not have a rash. If you developed a rash to the right side of your lower back where you have the pain then you need to be re-evaluated for possible shingles. Take Tylenol (acetaminophen) 500 mg pills, 2 pills every 4-6 hours as needed for pain. For pain not relieved by iTylenol take oxycodone 5 mg pills, 1 pill every 6 hours as needed for pain. Do not drive or work while taking this medication since they can cause sleepiness. Oxycodone is a narcotic medication that can be addicting. If you are concerned about addiction you can ask the pharmacist for less pills or do not get this prescription filled. Take Flexeril (cyclobenzaprine) 5 mg pills, 1 pill every 6-8 hours as needed for pain or spasm. This medication will make you sleepy. Do not drive or work while taking this medication. Follow-up with your doctor in 2 days. Please return to the emergency department if your symptoms get worse or if you develop any symptoms that are concerning to you. Prescriptions: New oxycodone 5 mg tablet 5 mg PO Q6H PRN (Reason: Pain or spasm) Qty: 14 0RF Rx Instructions: Patient may request partial refill cyclobenzaprine 5 mg tablet 5 mg PO TID PRN (Reason: muscle spasm or pain) Qty: 14 0RF No Action carvedilol 6.25 mg tablet 6.25 mg PO BID 90 Days Qty: 180 3RF Rx Instructions: must administer with a meal/food ezetimibe [Zetia] 10 mg tablet 10 mg PO DAILY Qty: 30 5RF ascorbic acid (vitamin C) [Vitamin C] 500 mg tablet 1 tab PO BID 0RF montelukast 10 mg tablet 1 tab PO BEDTIME 0RF calcitriol 0.25 mcg capsule 1 cap PO Q2D 0RF melatonin 5 mg tablet 1 tab PO BEDTIME 0RF docusate sodium 100 mg capsule 1 cap PO BID 0RF albuterol sulfate [ProAir HFA] 90 mcg/actuation Hfa Aerosol Inhaler 2 puff INHALATION Q4-6H PRN (Reason: Shortness Of Breath) 0RF Flovent HFA 110 mcg/actuation HFA aerosol inhaler 2 puff inhalation BID 0RF cholecalciferol (vitamin D3) 25 mcg (1,000 unit) tablet 1 tab PO DAILY 0RF Lantus Solostar U-100 Insulin 100 unit/mL (3 mL) insulin pen 28 unit subcut BEDTIME 0RF amlodipine 10 mg tablet 10 mg PO DAILY 0RF aspirin 81 mg tablet,delayed release (DR/EC) 81 mg PO BEDTIME 0RF atorvastatin 80 mg tablet 80 mg PO BEDTIME 0RF hydralazine 10 mg tablet 10 mg PO BID 0RF ferrous sulfate 325 mg (65 mg iron) tablet 325 mg PO BIDWM 0RF pantoprazole 40 mg tablet,delayed release (DR/EC) 40 mg PO DAILY@0630 0RF sertraline 100 mg tablet 150 mg PO DAILY 0RF furosemide 40 mg tablet 120 mg PO BID 0RF sevelamer carbonate 800 mg tablet 800 mg PO DIRECTED 0RF cetirizine 5 mg tablet 5 mg PO DAILY 0RF
[2021-11-16] MEDS: Cyclobenzaprine HCl 5 MG TABLET PO (23:18)
== END 2021-11-16 23:28 | disposition home or self-care (01) ==
PROVIDERS: Emergency Provider Emergency Medicine Emergency Medical Services; PCP Family Medicine
DX: M54.50 Low back pain, unspecified (principal); R33.9 Retention of urine, unspecified; R10.9 Unspecified abdominal pain; Z79.899 Other long term (current) drug therapy
CPT/HCPCS: 36415; 74176; 80053; 81001; 81003; 83690; 84484; 85025; 93005; 96374; 96375; 99284; 99285; J1885; J2405

== ENCOUNTER 2021-11-28 09:02 | Inpatient (IN) | payer OTHER, SELFPAY ==
[2021-11-28] VITALS (7 sets, daily range): BP systolic 123–156; BP diastolic 63–82; PULSE 69–75; RESP 14–18; TEMP 36.2–37.5; O2SAT 88–98; BMI 31.7
--- NOTE | ~2021-11-28 | CT_ITS ---
EXAMINATION: CT CHEST WITHOUT CONTRAST CLINICAL INFORMATION: Shortness of breath, cough and left-sided chest pain. COMPARISON: Chest x-ray 11/14/2021. CT chest 07/11/2021 TECHNIQUE: Multidetector volumetric CT imaging of the chest was done. Axial MIP volume rendering provided. Sagittal and coronal reformatted images were obtained. This CT examination was performed using dose optimization techniques as appropriate, variously including the following: *Automated exposure control *Adjustment of mA and/or kV according to patient size (this includes techniques or standardized protocols for targeted exams where dose is matched to indication/reason for exam; i.e. extremities or head) *Use of iterative reconstruction technique DLP: 273 mGy-cm FINDINGS: FIRMWARE ARCHITECT: Well-inflated lungs. LUNGS: The lungs are well-expanded with ill-defined solid mass/consolidation right upper lobe measuring 2.1 x 1.3 cm. No additional lesions or mass seen. There is a dense left lower lobe consolidation MEDIASTINUM: The thyroid lobes are symmetrical and normal. Central trachea and the bronchi are widely patent. There are small cyst shotty lymph nodes in the para-aortic space. There are coronary artery and aortic arch calcifications. No pericardial effusion seen. There is a right central venous catheter its tip in distal SVC. PLEURA: There is small left pleural effusion. AXILLA: No lymphadenopathy. UPPER ABDOMEN: Visualized liver, spleen, pancreas and right adrenal gland appears unremarkable. Adrenal gland is mildly enlarged. OSSEOUS STRUCTURES: No lytic or sclerotic process seen. There are median sternotomy sutures from previous intervention. CT/CT chest wo con IMPRESSION: Left lower lobe consolidation with underlying small pleural effusion. Ill-defined solid mass/consolidation right upper lobe. It was not well visualized on chest x-ray 11/14/2021. Or CT chest 07/11/2021 Fleischner guidelines were followed.
--- NOTE | 2021-11-28 09:20 | ECG_ITS ---
Test Reason : RADIATING CHEST PAIN Blood Pressure : / mmHG Vent. Rate : 072 BPM Atrial Rate : 072 BPM P-R Int : 142 ms QRS Dur : 090 ms QT Int : 406 ms P-R-T Axes : 049 014 067 degrees QTc Int : 444 ms Normal sinus rhythm Septal infarct (cited on or before 28-NOV-2017) Abnormal ECG When compared with ECG of 16-NOV-2021 20:18, Serial changes of Septal infarct Present Referred By: Kavya Bowers Electronically Signed By:Juan Carlos Morel
[2021-11-28 09:55] LABS: MANUAL DIFF FLAG NO
[2021-11-28 09:56] LABS: Basophils Percent Auto 0.2 % (0-2); Eosinophils Absolute Auto 0.1 X10*3/uL (0.0-0.4); Hematocrit 35.1 % (37.0-47.0); Hemoglobin 11.3 g/dl (12.0-16.0); Imm Gran Abs Auto 0.11 X10*3/uL (0.00-0.03); Imm Gran Pct Auto 0.9 % (0.0-0.4); Lymphocytes Percent Auto 8.2 % (20-40); Mean Corpuscular HGB Conc 32.2 g/dl (31.0-35.0); Mean Corpuscular Hemoglobin 30.4 pg (27.0-33.0); Mean Corpuscular Volume 94.4 fL (80.0-98.0); Mean Platelet Volume 10.6 fL (9.4-12.3); Monocytes Absolute Auto 1.1 X10*3/uL (0.1-1.2); Monocytes Percent Auto 9.1 % (2-11); Neutrophils Absolute Auto 9.8 x10*3/uL (2.0-8.3); Neutrophils Percent Auto 80.6 % (45-73); Platelet Count 209 X10*3/uL (160-400); Red Blood Count 3.72 X10*6/uL (4.20-5.50); White Blood Count 12.1 X10*3/uL (4.8-10.8)
[2021-11-28 10:07] LABS: INTERNATIONAL NORM RATIO 1.3 (0.9-1.1); Prothrombin Time 14.5 SEC (9.9-13.0)
[2021-11-28] MEDS: Magnesium Sulfate/H2O 2 GM/50 ML PIGGYBACK IV (10:09)
[2021-11-28] MEDS: guaiFEN/Codeine SF 200/20/10ML 10 ML LIQUID PO (10:09)
[2021-11-28] MEDS: methylPREDNISolone Sod Succ 125 MG/2 ML VIAL IVPUSH (10:09)
[2021-11-28 10:10] LABS: Lactic Acid 0.9 mmol/L (0.5-2.0)
[2021-11-28 10:20] LABS: B Type Natriuretic Peptide 759 pg/mL (<100); Troponin-I High Sensitivity 14.3 ng/L (<3.5-17.0)
[2021-11-28 10:27] LABS: Alanine Aminotransferase 8 U/L (0-31); Albumin Level 3.6 g/dL (3.5-5.0); Alkaline Phosphatase 80 U/L (39-117); Anion Gap 20 (12-20); Aspartate Amino Transferase 11 U/L (5-31); Bilirubin Total 0.7 mg/dL (0.0-1.0); Blood Urea Nitrogen 32 mg/dL (9-16); Carbon Dioxide 26 mmol/L (22-29); Chloride 93 mmol/L (96-108); Creatinine Clr Calc Pharmacy 7.2; Estimated Glomerular Filt Rate 7; Glucose Random 112 mg/dL (60-115); Magnesium 2.3 mg/dL (1.6-2.6); Potassium 4.3 mmol/L (3.3-5.1); Sodium 135 mmol/L (135-145); Total Protein 7.2 g/dL (6.5-8.0)
--- NOTE | 2021-11-28 10:37 | ED.SOB ---
HPI - SOB/Dyspnea General Chief Complaint: Dyspnea Stated Complaint: cough Time Seen by Provider: 11/28/21 09:20 Source: patient and EMS Mode of arrival: EMS Limitations: no limitations History of Present Illness HPI Narrative: 66-year-old female with a past medical history of HTN, HLD, type 2 diabetes, end-stage renal disease on dialysis, asthma, depression, degenerative joint disease, hypercalcemia and history of a coronary artery bypass graft presenting to the ED via EMS with complaints of productive cough with green-colored sputum with shortness of breath over the past 4-5 days worse today. She reports the left side of her chest hurts when she coughs. She denies any measured fevers, dizziness, headaches, neck pain/stiffness, sore throat, nasal congestion/rhinorrhea, loss of taste or smell, dyspnea on exertion, orthopnea, palpitations, paresthesias, chest pain when she is not coughing, nausea/vomiting/diarrhea, abdominal pain, constipation, lower extremity edema or calf tenderness, recent travel or sick contacts or any other symptoms complaints or concerns at this time. Reports that she was last hospitalized approximately 3-4 months ago. Reports that she has been intubated in the past but not for asthma. Patient received a Duoneb job captain by ems and feels much better placed on 2L of [place] oxygen due to 88% on RA. MD elicited complaint: shortness of breath, cough and pain with inspiration Pertinent past history: asthma and diabetes Onset (ago): day(s) (5) Timing: constant and progressively worsening Severity: severe Exacerbating factors: coughing, inspiration, talking and deep breaths Relieving factors: nothing Known history of: asthma and diabetes Associated symptoms: pain with inspiration, cough, sputum production and chest congestion Treatment prior to arrival: oxygen and other (DuoNeb by EMS) Related Data Home oxygen amount: none Home Medications Medication Instructions Recorded Confirmed aspirin 81 mg tablet,delayed 81 mg PO BEDTIME 06/10/20 10/27/21 release atorvastatin 80 mg tablet 80 mg PO BEDTIME 06/10/20 10/27/21 ferrous sulfate 325 mg (65 mg 325 mg PO BIDWM 06/10/20 10/27/21 iron) tablet hydralazine 10 mg tablet 10 mg PO BID tab 06/10/20 10/27/21 pantoprazole 40 mg tablet,delayed 40 mg PO DAILY@0630 06/10/20 10/27/21 release sertraline 100 mg tablet 150 mg PO DAILY tab 06/10/20 10/27/21 ascorbic acid (vitamin C) 500 mg 1 tab PO BID 12/03/20 10/27/21 tablet (Vitamin C) calcitriol 0.25 mcg capsule 1 cap PO Q2D 12/03/20 10/27/21 melatonin 5 mg tablet 1 tab PO BEDTIME 12/03/20 10/27/21 montelukast 10 mg tablet 1 tab PO BEDTIME 12/03/20 10/27/21 furosemide 40 mg tablet 120 mg PO BID tab 05/06/21 10/27/21 albuterol sulfate 90 mcg/actuation 2 puff INHALATION Q4-6H PRN 07/11/21 10/27/21 aerosol inhaler (ProAir HFA) amlodipine 10 mg tablet 10 mg PO DAILY 07/11/21 10/27/21 cholecalciferol (vitamin D3) 25 1 tab PO DAILY 07/11/21 10/27/21 mcg (1,000 unit) tablet docusate sodium 100 mg capsule 1 cap PO BID 07/11/21 10/27/21 fluticasone propionate 110 2 puff INHALATION BID 07/11/21 10/27/21 mcg/actuation HFA aerosol inhaler (Flovent HFA) insulin glargine 100 unit/mL (3 28 unit SUBCUT BEDTIME 07/11/21 10/27/21 mL) subcutaneous pen (Lantus Solostar U-100 Insulin) cetirizine 5 mg tablet 5 mg PO DAILY 10/27/21 10/27/21 sevelamer carbonate 800 mg tablet 800 mg PO DIRECTED 10/27/21 10/27/21 Previous Rx's Medication Instructions Recorded carvedilol 6.25 mg tablet 6.25 mg PO BID 90 Days #180 tab 04/01/21 ezetimibe 10 mg tablet (Zetia) 10 mg PO DAILY #30 tab 10/29/21 cyclobenzaprine 5 mg tablet 5 mg PO TID PRN #14 tab 11/16/21 oxycodone 5 mg tablet 5 mg PO Q6H PRN #14 tab 11/16/21 Allergies Allergy/AdvReac Type Severity Reaction Status Date / Time No Known Allergies Allergy Verified 10/27/21 15:05 Review of Systems Review of Systems: Constitutional : + chills/fatigues/malaise, No Weight loss, No Fever, No Night Sweats ENT/Mouth : No Hearing loss, No Ear Pain, No Nasal Congestion, No Sinus Pain, No Hoarseness, No sore throat, No Rhinorrhea, No Swallowing Difficulty Eyes: No Eye Pain, No Swelling, No Redness, No Foreign Body, No Discharge, No Vision Changes Cardiovascular : + Chest Pain, + SOB, No Dyspnea on Exertion, No Orthopnea, No Edema, No Palpitations Respiratory : + Cough, + Sputum, + Wheezing, No Smoke Exposure Gastrointestinal : No Nausea, No Vomiting, No Diarrhea, No Constipation, No abdominal Pain, No Hematochezia, No Melena Genitourinary : no irregular bleeding, No Dysuria, No Urinary Frequency, No Hematuria, No Urinary Incontinence, No Urgency, No Flank Pain, No Urinary Flow Changes, No Hesitancy Musculoskeletal : No joint pain, + Myalgias, No Joint Swelling Skin : No Skin Lesions, No rash Neuro : No Weakness, No Numbness, No Paresthesias, No Loss of Consciousness, No Dizziness, No Headache Psych : No Anxiety/Panic, No Depression, No SI/HI/AH/VH, No Social Issues, Heme/Lymph: No Bruising, No Bleeding,No Lymphadenopathy Endocrine : No Polyuria, No Polydipsia, No Temperature Intolerance Yes all other systems are reviewed and are negative [facility] Past Medical History Attestation statement: The following information was validated with the patient. Medical History Asthma Atherosclerotic cardiovascular disease Chronic kidney disease Depression DJD (degenerative joint disease) Edema Essential hypertension Hypercalcemia SHELIA (obstructive sleep apnea) Other and unspecified hyperlipidemia Type 2 diabetes mellitus with unspecified complications Surgical History History of coronary artery bypass graft (~2018) Family History Family History Father Cardiovascular disease Hypertension Mother Cardiovascular disease Hypertension Social History Social History Household Members: Family Household Members Other:: with son Housing: Apartment Do you presently have visiting nurse or other home services: Yes Alcohol intake: never Patient Tobacco Use Status: Tobacco use Unknown Advance Directives: Yes Advance Directives on File: Yes Advance Directives Date on File: 12/03/20 service: No 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al status: disabled Physical Exam Vital Signs: Vital Signs: Last Vital Signs Temp 99.5 F 11/28/21 09:58 Pulse 70 11/28/21 09:58 BP 147/68 H 11/28/21 09:58 Pulse Ox 88 L 11/28/21 11:27 BMI result Body Mass Index 31.7 vital signs have been reviewed as normal and appeared to be correct. Blood pressure 147/68. Heart rate normal. Respiration rate normal. Temperature 99.5. Oxygen saturation 88% on RA on 2L of [place] oxygen at 95%. Appearance: Alert. Oriented X3. In acute respiratory distress. Head: Normal external exam. Normocephalic. Atraumatic. Eyes: PERRLA. EOMI. Conjunctiva and sclera normal. Eyelids normal. ENT: EAC normal. TM's Normal. Pharynx normal. Uvula midline. Moist mucous membranes. No lesions/ulcerations or masses noted on the tongue. Normal voice. No trismus noted. No drooling noted. No muffled voice noted. Neck: Normal inspection. Neck supple. FROM. No adenopathy. Thyroid Normal. No tracheal deviation noted. No crepitus is noted. No meningeal signs. No neck mass noted. No signs of trauma noted. CVS: Normal heart rate and rhythm. Heart sound normal. Pulses normal throughout. No murmurs/rales/gallops. Respiratory: In acute respiratory distress with decreased breath sounds. Although patient already received DuoNeb via EMS therefore on my exam there are no wheezes/rales/rhonchi noted. She reports pain with inspiration on the left side of the chest. Chest is nontender. She is noted to have accessory muscle usage noted with tracheal tugging noted. No crepitus is noted. Abdomen: Soft and nontender. Bowel sounds normal in all 4 quadrants. No distention noted. No organomegaly noted. No visible injury noted. Back: No CVA tenderness. Full range of motion noted. Nontender. No signs of trauma. Patient neuro intact bilaterally and distally on all 4 extremities. Patient's reflexes intact bilaterally and distally on all 4 extremities. No rashes/lesion/induration/fluctuance or signs of infection noted. Skin: Skin warm and dry. Normal skin color. Normal skin turgor. No rashes/lesions/lacerations noted. Extremities: No lower extremity edema. No calf tenderness is noted. Extremities exhibit normal range of motion and nontender. Neuro: Oriented X 3. No motor deficit. No sensory deficit. Reflexes normal. Normal steady gait. No focal neuro deficits noted. CN's II-XII intact bilaterally? Vascular: + radial pulses/+ 2 distal pedal pulses/+2 dorsalis pedis b/l. Normal cap refill. No cyanosis noted to upper extremity nails and lower extremity toes nails. Course Course Course Narrative: 9:20am - 66-year-old female with a past medical history of HTN, HLD, type 2 diabetes, end-stage renal disease on dialysis, asthma, depression, degenerative joint disease, hypercalcemia and history of a coronary artery bypass graft presenting to the ED via EMS with complaints of productive cough with green-colored sputum with shortness of breath over the past 4-5 days worse today. She reports the left side of her chest hurts when she coughs. Reports that she was last hospitalized approximately 3-4 months ago. Reports that she has been intubated in the past but not for asthma. Patient received a Duoneb job captain by ems and feels much better placed on 2L of [place] oxygen due to 88% on RA. Plan: Patient already received DuoNeb therefore no additional breathing treatments indicated at this time. Will obtain labs, blood cultures, lactic acid, EKG. Provide Robitussin with codeine, 125 mg of Solu-Medrol and 2 g of magnesium along with 975 mg of Tylenol and re-evaluate. Reevaluation(s) Reevaluation #1: - labs reviewed patient with an elevated white blood cell count at 12,000 this is new when compared to 11/16/2021. Mild baseline anemia which is similar compared to prior. Chloride 93. BUN/creatinine 32/5.81 this is similar when compared to priors she has been worse in the past. Troponin 14.3 this is her baseline for troponin. BNP 759. Otherwise all other labs are within normal limits. - CT scan of chest without contrast revealed left lower lobe consolidation with underlying small pleural effusion. They also reported a solid mass/consolidation the right upper lobe not well visualized on chest x-ray of 11/14/[address] scan of 07/11/2021. - therefore at this time will order Rocephin and IV fluids for possible pneumonia. - EKG is normal sinus rhythm with ventricular rate of [address] abnormalities no acute ischemic change are noted. Similar compared to prior EKG 11/16/2021 Time: 10:30 Reevaluation #2: Patient to be admitted by Dr. Mo at this time patient understands agrees with this plan. Time: 11:47 MDM - SOB/Dyspnea Medical Records Attestation: I reviewed the patient's medical records. Lab Data Attestation: I reviewed the patient's lab results. Result diagrams: 11/28/21 09:49 11/28/21 09:49 Labs: Lab Results 11/28/21 11/28/21 11/28/21 Range/Units 09:49 09:49 09:49 WBC 12.1 H (4.8-10.8) X10*3/uL RBC 3.72 L (4.20-5.50) X10*6/uL Hgb 11.3 L (12.0-16.0) g/dl Hct 35.1 L (37.0-47.0) % MCV 94.4 (80.0-98.0) fL MCH 30.4 (27.0-33.0) pg MCHC 32.2 (31.0-35.0) g/dl RDW 14.0 (11.0-16.0) % Plt Count 209 (160-400) X10*3/uL MPV 10.6 (9.4-12.3) fL Immature Gran % (Auto) 0.9 H (0.0-0.4) % Neut % (Auto) 80.6 H (45-73) % Lymph % (Auto) 8.2 L (20-40) % [place] % (Auto) 9.1 (2-11) % Eos % (Auto) 1.0 (0-4) % Baso % (Auto) 0.2 (0-2) % Lymph # (Auto) 1.0 L (1.2-4.9) X10*3/uL [place] # (Auto) 1.1 (0.1-1.2) X10*3/uL Eos # (Auto) 0.1 (0.0-0.4) X10*3/uL Baso # (Auto) 0.0 (0.0-0.2) X10*3/uL Abs Immat Gran (auto) 0.11 H (0.00-0.03) X10*3/uL Absolute Neuts (auto) 9.8 H (2.0-8.3) x10*3/uL Absolute Nucleated RBC 0.000 (0.0-0.012) X10*3/uL Nucleated RBC % (auto) 0.0 (0.0-0.2) /100WBC PT 14.5 H (9.9-13.0) SEC INR 1.3 H (0.9-1.1) Sodium 135 (135-145) mmol/L Potassium 4.3 (3.3-5.1) mmol/L Chloride 93 L (96-108) mmol/L Carbon Dioxide 26 (22-29) mmol/L Anion Gap 20 (12-20) BUN 32 H (9-16) mg/dL Creatinine 5.81 H* (0.5-1.4) mg/dL Estim Creat Clear Calc 7.2 Estimated GFR 7 Random Glucose 112 (60-115) mg/dL Lactic Acid (0.5-2.0) mmol/L Calcium 10.0 D (8.4-10.2) mg/dL Magnesium 2.3 (1.6-2.6) mg/dL Total Bilirubin 0.7 (0.0-1.0) mg/dL AST 11 (5-31) U/L ALT 8 (0-31) U/L Alkaline Phosphatase 80 D (39-117) U/L Troponin I High Sens (<3.5-17.0) ng/L B-Natriuretic Peptide (<100) pg/mL Total Protein 7.2 (6.5-8.0) g/dL Albumin 3.6 (3.5-5.0) g/dL COVID-19 ([facility]) (Negative) COVID-19 Clin Com Influenza Type A (LILY) (Negative) Influenza Type B (LILY) (Negative) Influenza A & B Note 11/28/21 11/28/21 11/28/21 Range/Units 09:49 09:49 11:09 WBC (4.8-10.8) X10*3/uL RBC (4.20-5.50) X10*6/uL Hgb (12.0-16.0) g/dl Hct (37.0-47.0) % MCV (80.0-98.0) fL MCH (27.0-33.0) pg MCHC (31.0-35.0) g/dl RDW (11.0-16.0) % Plt Count (160-400) X10*3/uL MPV (9.4-12.3) fL Immature Gran % (Auto) (0.0-0.4) % Neut % (Auto) (45-73) % Lymph % (Auto) (20-40) % [place] % (Auto) (2-11) % Eos % (Auto) (0-4) % Baso % (Auto) (0-2) % Lymph # (Auto) (1.2-4.9) X10*3/uL [place] # (Auto) (0.1-1.2) X10*3/uL Eos # (Auto) (0.0-0.4) X10*3/uL Baso # (Auto) (0.0-0.2) X10*3/uL Abs Immat Gran (auto) (0.00-0.03) X10*3/uL Absolute Neuts (auto) (2.0-8.3) x10*3/uL Absolute Nucleated RBC (0.0-0.012) X10*3/uL Nucleated RBC % (auto) (0.0-0.2) /100WBC PT (9.9-13.0) SEC INR (0.9-1.1) Sodium (135-145) mmol/L Potassium (3.3-5.1) mmol/L Chloride (96-108) mmol/L Carbon Dioxide (22-29) mmol/L Anion Gap (12-20) BUN (9-16) mg/dL Creatinine (0.5-1.4) mg/dL Estim Creat Clear Calc Estimated GFR Random Glucose (60-115) mg/dL Lactic Acid 0.9 (0.5-2.0) mmol/L Calcium (8.4-10.2) mg/dL Magnesium (1.6-2.6) mg/dL Total Bilirubin (0.0-1.0) mg/dL AST (5-31) U/L ALT (0-31) U/L Alkaline Phosphatase (39-117) U/L Troponin I High Sens 14.3 (<3.5-17.0) ng/L B-Natriuretic Peptide 759 H (<100) pg/mL Total Protein (6.5-8.0) g/dL Albumin (3.5-5.0) g/dL COVID-19 ([facility]) (Negative) COVID-19 Clin Com Influenza Type A (LILY) Negative (Negative) Influenza Type B (LILY) Negative (Negative) Influenza A & B Note See Note 11/28/21 Range/Units 11:09 WBC (4.8-10.8) X10*3/uL RBC (4.20-5.50) X10*6/uL Hgb (12.0-16.0) g/dl Hct (37.0-47.0) % MCV (80.0-98.0) fL MCH (27.0-33.0) pg MCHC (31.0-35.0) g/dl RDW (11.0-16.0) % Plt Count (160-400) X10*3/uL MPV (9.4-12.3) fL Immature Gran % (Auto) (0.0-0.4) % Neut % (Auto) (45-73) % Lymph % (Auto) (20-40) % [place] % (Auto) (2-11) % Eos % (Auto) (0-4) % Baso % (Auto) (0-2) % Lymph # (Auto) (1.2-4.9) X10*3/uL [place] # (Auto) (0.1-1.2) X10*3/uL Eos # (Auto) (0.0-0.4) X10*3/uL Baso # (Auto) (0.0-0.2) X10*3/uL Abs Immat Gran (auto) (0.00-0.03) X10*3/uL Absolute Neuts (auto) (2.0-8.3) x10*3/uL Absolute Nucleated RBC (0.0-0.012) X10*3/uL Nucleated RBC % (auto) (0.0-0.2) /100WBC PT (9.9-13.0) SEC INR (0.9-1.1) Sodium (135-145) mmol/L Potassium (3.3-5.1) mmol/L Chloride (96-108) mmol/L Carbon Dioxide (22-29) mmol/L Anion Gap (12-20) BUN (9-16) mg/dL Creatinine (0.5-1.4) mg/dL Estim Creat Clear Calc Estimated GFR Random Glucose (60-115) mg/dL Lactic Acid (0.5-2.0) mmol/L Calcium (8.4-10.2) mg/dL Magnesium (1.6-2.6) mg/dL Total Bilirubin (0.0-1.0) mg/dL AST (5-31) U/L ALT (0-31) U/L Alkaline Phosphatase (39-117) U/L Troponin I High Sens (<3.5-17.0) ng/L B-Natriuretic Peptide (<100) pg/mL Total Protein (6.5-8.0) g/dL Albumin (3.5-5.0) g/dL COVID-19 ([facility]) Negative (Negative) COVID-19 Clin Com See Note Influenza Type A (LILY) (Negative) Influenza Type B (LILY) (Negative) Influenza A & B Note Imaging Data CT scan of chest without contrast: Attestation: I personally reviewed and interpreted this imaging study as follows: Radiologist's impression: FINDINGS: [employer]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 LUNGS: The lungs are well-expanded with ill-defined solid mass/consolidation right upper lobe measuring 2.1 x 1.3 cm. No additional lesions or mass seen. There is a dense left lower lobe consolidation MEDIASTINUM: The thyroid lobes are symmetrical and normal. Central trachea and the bronchi are widely patent. There are small cyst shotty lymph nodes in the para-aortic space. There are coronary artery and aortic arch calcifications. No pericardial effusion seen. There is a right central venous catheter its tip in distal SVC. PLEURA: There is small left pleural effusion.? AXILLA: No lymphadenopathy.? UPPER ABDOMEN: Visualized liver, spleen, pancreas and right adrenal gland appears unremarkable. Adrenal gland is mildly enlarged.? OSSEOUS STRUCTURES: No lytic or sclerotic process seen. There are median sternotomy sutures from previous intervention.? CT/CT chest wo con IMPRESSION: Left lower lobe consolidation with underlying small pleural effusion. ? Ill-defined solid mass/consolidation right upper lobe. It was not well visualized on chest x-ray 11/14/2021. Or CT chest 07/11/2021 ? Fleischner guidelines were followed. ECG Data Attestation: I personally reviewed and interpreted this ECG as follows: ECG interpretation date: 11/28/21 ECG interpretation time: 09:52 Interpretation: EKG is normal sinus rhythm with ventricular rate of [address] abnormalities no acute ischemic change are noted. Similar compared to prior EKG 11/16/2021 Critical Care Time Critical Care Time Critical Care Time: Yes Total Critical Care Time: 60 Attestation: I personally attest to this time spent taking care of the patient Discharge Plan Discharge Clinical Impression: Pneumonia, Hypoxia, End stage chronic kidney disease, Pleural effusion Patient Disposition: Admitted As Inpatient
[2021-11-28 11:30] LABS: COVID-19 Test Negative (Negative); IDNOW Serial# 16C4AD1C; Influenza A Negative (Negative); Influenza B2 Negative (Negative)
[2021-11-28] MEDS: 0.9 % Sodium Chloride 1,000 ML 999 ML IVCONT (11:37)
[2021-11-28] MEDS: cefTRIAXone sodium 2 GM in 0.9 % Sodium Chloride 50 ML IV (11:37)
[2021-11-28] MEDS: Acetaminophen 325 MG TABLET 975 MG PO (11:38)
--- NOTE | 2021-11-28 12:34 | PM.IMHP ---
History of Present Illness Date of Service: 11/28/21 Chief Complaint: Sob 66 year old women with hx of CAD, CABG , DM , ESRD on dialysis, presenting with 4 days of shortness of breath and left sided flank/chest pain without fever, chills, nausea, vomiting, diarrhea, sick contacts. She received a duoneb tx as per EMS. She was given Rocephin, mag, tylenol and robitussin in the ED. Her vital signs have been stable although her oxygen sat was 88%. she was noted a mildly elevated white blood cell count 12.1, creatinine 5.81, chest CT showing left lower lobe consolidation with underlying small pleural effusion and ill-defined solid mass /consolidation to the right upper lobe. She stable at this time with 2 L oxygen through nasal cannula. She will be admitted for further management and treatment of acute hypoxic respiratory failure secondary to community-acquired pneumonia. Review of Systems Review of Systems: Denies any recent fever chills or decrease in appetite respiratory reported sob and cough with left sided flank pain worse with cough cardiovascular denies chest pain gastrointestinal denies any dysphagia abdominal pain nausea vomiting or diarrhea genitourinary denies any dysuria frequency or hematuria musculoskeletal denies any joint pain or swelling neuropsych denies any weakness or seizures all other systems reviewed are negative [facility] Medical History Asthma Atherosclerotic cardiovascular disease Chronic kidney disease Depression DJD (degenerative joint disease) Edema Essential hypertension Hypercalcemia SHELIA (obstructive sleep apnea) Other and unspecified hyperlipidemia Type 2 diabetes mellitus with unspecified complications Family History Father Cardiovascular disease Hypertension Mother Cardiovascular disease Hypertension Surgical History History of coronary artery bypass graft (~2018) Social History Household Members: Family Household Members Other:: with son Housing: Apartment Do you presently have visiting nurse or other home services: Yes Alcohol intake: never Patient Tobacco Use Status: Tobacco use Unknown Advance Directives: Yes Advance Directives on File: Yes Advance Directives Date on File: 12/03/20 service: No 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al status: disabled Meds Allergies Allergy/AdvReac Type Severity Reaction Status Date / Time No Known Allergies Allergy Verified 10/27/21 15:05 Active Medications: Current Medications Pharmacy Consult (Consult Rx Perform Med Rec) 1 each MISCELLANE ONCE PRN PRN Reason: Consult order Home Medications Medication Instructions Recorded Confirmed Last Taken Type aspirin 81 mg tablet,delayed 81 mg PO BEDTIME 06/10/20 10/27/21 Unknown History release atorvastatin 80 mg tablet 80 mg PO BEDTIME 06/10/20 10/27/21 Unknown History ferrous sulfate 325 mg (65 mg 325 mg PO BIDWM 06/10/20 10/27/21 Unknown History iron) tablet hydralazine 10 mg tablet 10 mg PO BID tab 06/10/20 10/27/21 Unknown History pantoprazole 40 mg tablet,delayed 40 mg PO DAILY@0630 06/10/20 10/27/21 Unknown History release sertraline 100 mg tablet 150 mg PO DAILY tab 06/10/20 10/27/21 Unknown History ascorbic acid (vitamin C) 500 mg 1 tab PO BID 12/03/20 10/27/21 Unknown History tablet (Vitamin C) calcitriol 0.25 mcg capsule 1 cap PO Q2D 12/03/20 10/27/21 Unknown History melatonin 5 mg tablet 1 tab PO BEDTIME 12/03/20 10/27/21 Unknown History montelukast 10 mg tablet 1 tab PO BEDTIME 12/03/20 10/27/21 Unknown History furosemide 40 mg tablet 120 mg PO BID tab 05/06/21 10/27/21 Unknown History albuterol sulfate 90 mcg/actuation 2 puff INHALATION Q4-6H PRN 07/11/21 10/27/21 Unknown History aerosol inhaler (ProAir HFA) amlodipine 10 mg tablet 10 mg PO DAILY 07/11/21 10/27/21 Unknown History cholecalciferol (vitamin D3) 25 1 tab PO DAILY 07/11/21 10/27/21 Unknown History mcg (1,000 unit) tablet docusate sodium 100 mg capsule 1 cap PO BID 07/11/21 10/27/21 Unknown History fluticasone propionate 110 2 puff INHALATION BID 07/11/21 10/27/21 Unknown History mcg/actuation HFA aerosol inhaler (Flovent HFA) insulin glargine 100 unit/mL (3 28 unit SUBCUT BEDTIME 12/12/21 03/30/22 Unknown History mL) subcutaneous pen (Lantus Solostar U-100 Insulin) cetirizine 5 mg tablet 5 mg PO DAILY 10/27/21 10/27/21 Unknown History sevelamer carbonate 800 mg tablet 800 mg PO DIRECTED 10/27/21 10/27/21 Unknown History Physical Exam Vital Signs and Narrative: Vital Signs: Last Vital Signs Temp 99.5 F 11/28/21 09:58 Pulse 70 11/28/21 09:58 BP 147/68 H 11/28/21 09:58 Pulse Ox 88 L 11/28/21 11:27 BMI result Body Mass Index 31.7 Appearing in no acute distress head is normocephalic atraumatic eyes pupils are PERRLA sclera is anicteric mouth throat mucous membranes are intact and moist neck is supple no lymphadenopathy, no JVD noted lung sounds are clear to auscultation heart regular rate rhythm, clear S1, S2 positive bowel sounds, abdomen is soft, nontender neuro patient is alert x3, no focal deficits Results Labs CBC and Chem 7: 11/28/21 09:49 11/28/21 09:49 Labs: Laboratory Results - last 24 hr 11/28/21 11/28/21 11/28/21 09:49 09:49 09:49 MCV 94.4 MCH 30.4 MCHC 32.2 RDW 14.0 Plt Count 209 MPV 10.6 Immature Gran % (Auto) 0.9 H Neut % (Auto) 80.6 H Lymph % (Auto) 8.2 L Loving % (Auto) 9.1 Eos % (Auto) 1.0 Baso % (Auto) 0.2 Lymph # (Auto) 1.0 L Loving # (Auto) 1.1 Eos # (Auto) 0.1 Baso # (Auto) 0.0 Abs Immat Gran (auto) 0.11 H Absolute Neuts (auto) 9.8 H Absolute Nucleated RBC 0.000 Nucleated RBC % (auto) 0.0 PT 14.5 H INR 1.3 H Anion Gap 20 Creatinine 5.81 H* Estim Creat Clear Calc 7.2 Estimated GFR 7 Random Glucose 112 Lactic Acid Calcium 10.0 D Magnesium 2.3 Total Bilirubin 0.7 AST 11 ALT 8 Alkaline Phosphatase 80 D Troponin I High Sens B-Natriuretic Peptide Total Protein 7.2 Albumin 3.6 COVID-19 (KYLER) COVID-19 Clin Com Influenza Type A (LILY) Influenza Type B (LILY) Influenza A & B Note 11/28/21 11/28/21 11/28/21 09:49 09:49 11:09 MCV MCH MCHC RDW Plt Count MPV Immature Gran % (Auto) Neut % (Auto) Lymph % (Auto) Loving % (Auto) Eos % (Auto) Baso % (Auto) Lymph # (Auto) Loving # (Auto) Eos # (Auto) Baso # (Auto) Abs Immat Gran (auto) Absolute Neuts (auto) Absolute Nucleated RBC Nucleated RBC % (auto) PT INR Anion Gap Creatinine Estim Creat Clear Calc Estimated GFR Random Glucose Lactic Acid 0.9 Calcium Magnesium Total Bilirubin AST ALT Alkaline Phosphatase Troponin I High Sens 14.3 B-Natriuretic Peptide 759 H Total Protein Albumin COVID-19 (KYLER) COVID-19 Clin Com Influenza Type A (LILY) Negative Influenza Type B (LILY) Negative Influenza A & B Note See Note 11/28/21 11:09 MCV MCH MCHC RDW Plt Count MPV Immature Gran % (Auto) Neut % (Auto) Lymph % (Auto) Loving % (Auto) Eos % (Auto) Baso % (Auto) Lymph # (Auto) Loving # (Auto) Eos # (Auto) Baso # (Auto) Abs Immat Gran (auto) Absolute Neuts (auto) Absolute Nucleated RBC Nucleated RBC % (auto) PT INR Anion Gap Creatinine Estim Creat Clear Calc Estimated GFR Random Glucose Lactic Acid Calcium Magnesium Total Bilirubin AST ALT Alkaline Phosphatase Troponin I High Sens B-Natriuretic Peptide Total Protein Albumin COVID-19 (KYLER) Negative COVID-19 Clin Com See Note Influenza Type A (LILY) Influenza Type B (LILY) Influenza A & B Note Imaging Radiologist's Impressions: Impressions Chest CT 11/28/21 09:45 IMPRESSION: Left lower lobe consolidation with underlying small pleural effusion. Ill-defined solid mass/consolidation right upper lobe. It was not well visualized on chest x-ray 11/14/2021. Or CT chest 07/11/2021 Fleischner guidelines were followed. Assessment and Plan (1) Pneumonia: Status: Acute Plan 66 year old women admitted with acute hypoxic respiratory failure secondary to community-acquired pneumonia Acute hypoxic respiratory failure secondary to CAP O2 sat 88% Start Rocephin and azithromycin Supplemental oxygen as needed blood cx pending Pulmonary consultation for question of mass to right upper lobe End-stage renal disease. Dialysis Monday, and Monday Last dialysis yesterday Nephrology consultation to set up dialysis renvela Hypertension continue home medications Diabetes sliding scale ada diet long acting insulin CAD continue asa and statin DVT prophylaxis with heparin Attending Dr. Mo Full code Patient likely requires 2 midnights in the hospital for treatment of acute hypoxic respiratory failure secondary to community-acquired pneumonia, will need IV antibiotics and continued monitoring of oxygen status Quality Stroke Does the patient have a stroke diagnosis?: No VTE Prior VTE?: No VTE Risk Level:: Medical - moderate - high VTE Device Contraindication: Treatment Not Indicated VTE Drug Contraindication: N/A - Med Ordered
[2021-11-28 13:33] LABS: Appearance Urine HAZY; Color Urine YELLOW; Glucose Urine UA 100 MG/DL (NEG); Leukocyte Esterase Urine TRACE (NEG); Nitrite Urine NEG (NEG); Specific Gravity - Urine 1.015 (1.005-1.025); UACC Culture Trigger NO; Urine Blood TRACE (NEG); Urine Ketones NEG (NEG); Urine Protein 2+ MG/DL (NEG-TRACE)
[2021-11-28 13:48] LABS: Bacteria Urine 1+ /LPF; RBC Urine 0-2 /HPF (0); Squamous Epithelial Cell Urine 3+ /LPF; UACC CULT YES
[2021-11-28 15:11] LABS: Glucose, Whole Blood 139 mg/dL (60-115)
[2021-11-28] MEDS: Azithromycin 500 MG in 0.9 % Sodium Chloride 250 ML 125 MG IV (15:31)
--- NOTE | 2021-11-28 16:01 | PC.NURSE ---
Addendum entered by Erica Juárez 11/28/21 17:18: report given to TED Ferrara Original Note: report received from TED Cash. pt is alert and oriented. resting in bed. no signs of acute distress notice. breathing equally unlabored. pt on continuos cardiac monitoring
--- NOTE | 2021-11-28 16:10 | PHA.MEDREC ---
Pharmacy Consult ? Medication Reconciliation Pharmacy has completed the medication reconciliation. Spoke with patient and her son. Patient states that her blood sugars have been low lately so her visiting nurse told her not to take 28 units of lantus daily (which she is prescribed) and said to take 7 units of lantus if her blood sugar is over 100 or no insulin if the blood sugar is under 100.
[2021-11-28 17:06] LABS: Glucose, Whole Blood 156 mg/dL (60-115)
[2021-11-28 18:45] LABS: Glucose, Whole Blood 221 mg/dL (60-115)
[2021-11-28 20:16] LABS: Glucose, Whole Blood 360 mg/dL (60-115)
[2021-11-28] MEDS: 0.9 % Sodium Chloride Flush 3 ML SYRINGE IVFLUSH (20:40)
[2021-11-28] MEDS: Insulin Lispro 100 UNIT/ML 3 ML VIAL SUBCUT (20:40)
[2021-11-29] MEDS: Heparin Sodium,Porcine 5,000 UNIT/ML VIAL 5000 UNIT SUBCUT ×2 (02:08→13:43)
[2021-11-29 03:02] VITALS: BP 173/80; PULSE 69; RESP 16; TEMP 36.2; O2SAT 96
[2021-11-29 06:02] LABS: MANUAL DIFF FLAG NO
[2021-11-29 06:09] LABS: Basophils Percent Auto 0.3 % (0-2); Hematocrit 35.8 % (37.0-47.0); Hemoglobin 11.6 g/dl (12.0-16.0); Imm Gran Abs Auto 0.15 X10*3/uL (0.00-0.03); Imm Gran Pct Auto 1.3 % (0.0-0.4); Lymphocytes Absolute Auto 0.7 X10*3/uL (1.2-4.9); Mean Corpuscular HGB Conc 32.4 g/dl (31.0-35.0); Mean Corpuscular Hemoglobin 30.1 pg (27.0-33.0); Mean Platelet Volume 11.2 fL (9.4-12.3); Monocytes Absolute Auto 0.5 X10*3/uL (0.1-1.2); Monocytes Percent Auto 4.4 % (2-11); Neutrophils Absolute Auto 10.2 x10*3/uL (2.0-8.3); Platelet Count 209 X10*3/uL (160-400); Red Blood Count 3.85 X10*6/uL (4.20-5.50); Red Cell Distribution Width 13.6 % (11.0-16.0); White Blood Count 11.6 X10*3/uL (4.8-10.8)
[2021-11-29 07:13] LABS: Anion Gap 22 (12-20); Blood Urea Nitrogen 57 mg/dL (9-16); Carbon Dioxide 24 mmol/L (22-29); Chloride 93 mmol/L (96-108); Creatinine Clr Calc Pharmacy 5.7; Estimated Glomerular Filt Rate 6; Glucose Random 421 mg/dL (60-115); Potassium 5.8 mmol/L (3.3-5.1); Sodium 133 mmol/L (135-145)
[2021-11-29 07:18] VITALS: BP 154/72; PULSE 69; RESP 18; TEMP 36; O2SAT 94
[2021-11-29] MEDS: Insulin Lispro 100 UNIT/ML 3 ML VIAL SUBCUT ×6 (07:37→21:04)
[2021-11-29] MEDS: 0.9 % Sodium Chloride Flush 3 ML SYRINGE IVFLUSH ×3 (07:38→19:52)
[2021-11-29 07:39] LABS: Glucose, Whole Blood 380 mg/dL (60-115)
[2021-11-29] MEDS: Sodium Zirconium Cyclosilicate 5 GM POWD.PACK PO (09:54)
--- NOTE | 2021-11-29 09:54 | PM.CNPUL ---
History of Present Illness History of Present Illness Consult date: 11/29/21 Requesting physician: Zeynep Saba Chief complaint: CAP, Hypoxia Narrative: 66-year-old lady, nonsmoker, with underlying history of CAD status post CABG, diabetes mellitus with end-stage renal disease on hemodialysis admitted on 11/28/2021 with progressive dyspnea. She was treated for community-acquired pneumonia. Her CT chest showed left lower lobe consolidation and right upper lobe patchy infiltrate. Review of Systems Constitutional: Constitutional: Denies daytime sleepiness, Denies excessive sweating, Denies fatigue, Denies fever(s), Denies lethargy, Denies malaise, Denies night sweats, Denies snoring and Denies weight loss Eyes: Eyes: Denies blurry vision and Denies itchy eyes ENT: Denies nasal congestion, Denies post nasal drip, Denies sinus pain, Denies sinus pressure and Denies other ( Thrush) Cardiovascular: Cardiovascular: Denies chest pain, Denies pedal edema, Denies dyspnea, Reports dyspnea on exertion, Denies orthopnea and Denies paroxysmal nocturnal dyspnea Respiratory: Respiratory: Denies cough, Denies hemoptysis, Denies excessive phlegm production, Denies dyspnea, Reports dyspnea on exertion, Denies snoring and Denies wheezing Gastrointestinal: Gastrointestinal: Denies abdominal pain and Denies heartburn Musculoskeletal: Musculoskeletal: Denies myalgias, Denies arthralgias and Denies joint swelling Integumentary/Breasts: Skin/Breast: Denies rash Neurologic: Denies memory loss and Denies seizure-like activity Psychiatric: Psychiatric: Denies abnormal sleep pattern, Denies anxiety and Denies memory loss Endocrine: Endocrine: Denies excessive sweating, Denies fatigue and Denies heat intolerance Hematologic/Lymphatic: Hematologic/Lymphatic: Denies easy bruising Allergic/Immunologic: Allergic/Immunologic: Denies itchy eyes, Denies seasonal rhinorrhea and Denies wheezing PMFSH Past Medical History Medical History Asthma Atherosclerotic cardiovascular disease Chronic kidney disease Depression DJD (degenerative joint disease) Edema Essential hypertension Hypercalcemia SHELIA (obstructive sleep apnea) Other and unspecified hyperlipidemia Type 2 diabetes mellitus with unspecified complications Family History Family History Father Cardiovascular disease Hypertension Mother Cardiovascular disease Hypertension Surgical History Surgical History History of coronary artery bypass graft (~2018) Social History Social History Household Members: Other Household Members Other:: son Housing: Apartment Do you presently have visiting nurse or other home services: Yes Alcohol intake: never Patient Tobacco Use Status: Tobacco use Unknown Advance Directives Date on File: 12/03/20 service: No 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al status: disabled Meds Allergies Allergy/AdvReac Type Severity Reaction Status Date / Time No Known Allergies Allergy Verified 10/27/21 15:05 Active Medications: Current Medications Acetaminophen (Acetaminophen 325 Mg Tablet) 650 mg PO Q6H PRN PRN Reason: Pain, Mild (Pain Scale 1-3) Dextrose (Dextrose 50 % 25 Gm/50 Ml Syringe) 25 gm IVPUSH Q15M PRN; Protocol PRN Reason: per Hypoglycemia Standing Ord. Glucose (Glucose Gel 15 Gm Gel..Gram.) 15 gm PO Q15M PRN; Protocol PRN Reason: per Hypoglycemia Standing Ord. Heparin Sodium (Porcine) (Heparin Sodium,Porcine 5,000 Unit/Ml Vial) 5,000 unit SUBCUT Q12H [facility] Last Admin: 11/29/21 02:08 Dose: 5,000 unit Documented by: Ceftriaxone Sodium 1 gm/ (Sodium Chloride) 50 mls @ 100 mls/hr IV Q24H [facility] Azithromycin 500 mg/ Sodium (Chloride) 250 mls @ 125 mls/hr IV Q24H [facility] Last Infusion: 11/28/21 18:06 Dose: Infused Documented by: Insulin Human Lispro (Insulin Lispro 100 Unit/Ml 3 Ml Vial) 0 unit SUBCUT QIDACHS [facility]; Protocol Last Admin: 11/29/21 07:37 Dose: 10 unit Documented by: Ondansetron HCl (Ondansetron Hcl 4 Mg/2 Ml Vial) 4 mg IVPUSH Q8H PRN PRN Reason: Nausea and Vomiting Pharmacy Consult (Consult Rx Perform Med Rec) 1 each MISCELLANE ONCE PRN PRN Reason: Consult order Sodium Chloride (0.9 % Sodium Chloride Flush 3 Ml Syringe) 3 ml IVFLUSH QSHIFT [facility] Last Admin: 11/29/21 07:38 Dose: 3 ml Documented by: Home Medications Medication Instructions Recorded Confirmed Last Taken Type aspirin 81 mg tablet,delayed 81 mg PO BEDTIME 06/10/20 11/28/21 11/27/21 History release atorvastatin 80 mg tablet 80 mg PO BEDTIME 06/10/20 11/28/21 11/27/21 History ferrous sulfate 325 mg (65 mg 325 mg PO BIDWM 06/10/20 11/28/21 11/28/21 History iron) tablet hydralazine 10 mg tablet 10 mg PO BID tab 06/10/20 11/28/21 11/28/21 History pantoprazole 40 mg tablet,delayed 40 mg PO DAILY@0630 06/10/20 11/28/21 11/28/21 History release sertraline 100 mg tablet 150 mg PO DAILY tab 06/10/20 11/28/21 11/28/21 History ascorbic acid (vitamin C) 500 mg 1 tab PO BID 12/03/20 11/28/21 11/28/21 History tablet (Vitamin C) calcitriol 0.25 mcg capsule 1 cap PO Q2D 12/03/20 11/28/21 11/28/21 History montelukast 10 mg tablet 1 tab PO BEDTIME 12/03/20 11/28/21 11/28/21 History furosemide 40 mg tablet 120 mg PO BID tab 05/06/21 11/28/21 11/28/21 History albuterol sulfate 90 mcg/actuation 2 puff INHALATION Q4-6H PRN 07/11/21 11/28/21 Unknown History aerosol inhaler (ProAir HFA) amlodipine 10 mg tablet 10 mg PO DAILY 07/11/21 11/28/21 11/28/21 History cholecalciferol (vitamin D3) 25 1 tab PO DAILY 07/11/21 11/28/21 11/28/21 History mcg (1,000 unit) tablet docusate sodium 100 mg capsule 1 cap PO BID 07/11/21 11/28/21 11/28/21 History fluticasone propionate 110 2 puff INHALATION BID 07/11/21 11/28/21 11/28/21 History mcg/actuation HFA aerosol inhaler (Flovent HFA) insulin glargine 100 unit/mL (3 28 unit SUBCUT BEDTIME 07/11/21 11/28/21 Unknown History mL) subcutaneous pen (Lantus Solostar U-100 Insulin) cetirizine 5 mg tablet 5 mg PO DAILY 10/27/21 11/28/21 11/28/21 History sevelamer carbonate 800 mg tablet 800 mg PO DIRECTED 10/27/21 11/28/21 11/28/21 History Physical Exam Vital Signs: Vital Signs: Last Vital Signs Temp 96.8 F 11/29/21 07:18 Pulse 69 11/29/21 07:18 Resp 18 11/29/21 07:18 BP 154/72 H 11/29/21 07:18 Pulse Ox 94 11/29/21 07:18 BMI result Body Mass Index 31.7 Const: General: no acute distress and alert Nutritional Appearance: obese HEENT: Head: Yes atraumatic Mouth: no other ( thrush) Throat: No postnasal drainage Eyes: General: appearance normal, both eyes and all related structures Sclerae: sclerae normal EOM: EOMs intact bilaterally Neck: Neck: Yes supple Lymphatic: no lymphadenopathy noted Resp: Effort & Inspection: normal respiratory effort and no use of accessory muscles Auscultation: crackles (Bilateral) and other (Left basilar poor air movement) Cardio: Rate: regular rate Rhythm: regular rhythm Heart sounds: no gallops, no murmurs and no rubs GI: Palpation (GI): Soft to palpation and Other GI palpation findings present ( nontender) Skin: General skin exam: other ( warm) Rashes: no rashes Extrem: General: No clubbing, No cyanosis and No edema Results Laboratory Findings CBC and BMP: 11/29/21 05:25 11/29/21 05:25 ABG, PT/INR, D-dimer: PT/INR, D-dimer PT 14.5 SEC (9.9-13.0) H 11/28/21 09:49 INR 1.3 (0.9-1.1) H 11/28/21 09:49 Abnormal lab findings: Abnormal Labs 11/28/21 11/28/21 11/28/21 09:49 09:49 09:49 WBC 12.1 H RBC 3.72 L Hgb 11.3 L Hct 35.1 L Immature Gran % (Auto) 0.9 H Neut % (Auto) 80.6 H Lymph % (Auto) 8.2 L Lymph # (Auto) 1.0 L Abs Immat Gran (auto) 0.11 H Absolute Neuts (auto) 9.8 H PT 14.5 H INR 1.3 H Sodium Potassium Chloride 93 L Anion Gap BUN 32 H Creatinine 5.81 H* POC Glucose Random Glucose B-Natriuretic Peptide Urine Protein Urine Glucose (UA) Ur Leukocyte Esterase Urine WBC 11/28/21 11/28/21 11/28/21 09:49 13:14 13:23 WBC RBC Hgb Hct Immature Gran % (Auto) Neut % (Auto) Lymph % (Auto) Lymph # (Auto) Abs Immat Gran (auto) Absolute Neuts (auto) PT INR Sodium Potassium Chloride Anion Gap BUN Creatinine POC Glucose 139 H Random Glucose B-Natriuretic Peptide 759 H Urine Protein 2+ H Urine Glucose (UA) 100 H Ur Leukocyte Esterase TRACE H Urine WBC 5-9 H 11/28/21 11/28/21 11/28/21 16:52 18:39 20:12 WBC RBC Hgb Hct Immature Gran % (Auto) Neut % (Auto) Lymph % (Auto) Lymph # (Auto) Abs Immat Gran (auto) Absolute Neuts (auto) PT INR Sodium Potassium Chloride Anion Gap BUN Creatinine POC Glucose 156 H 221 H 360 H* Random Glucose B-Natriuretic Peptide Urine Protein Urine Glucose (UA) Ur Leukocyte Esterase Urine WBC 11/29/21 11/29/21 11/29/21 05:25 05:25 07:15 WBC 11.6 H RBC 3.85 L Hgb 11.6 L Hct 35.8 L Immature Gran % (Auto) 1.3 H Neut % (Auto) 88.0 H Lymph % (Auto) 6.0 L Lymph # (Auto) 0.7 L Abs Immat Gran (auto) 0.15 H Absolute Neuts (auto) 10.2 H PT INR Sodium 133 L Potassium 5.8 H D Chloride 93 L Anion Gap 22 H BUN 57 H D Creatinine 7.33 H* POC Glucose 380 H* Random Glucose 421 H* D B-Natriuretic Peptide Urine Protein Urine Glucose (UA) Ur Leukocyte Esterase Urine WBC Diagnostic Findings CT scan - chest: report reviewed and image reviewed Assessment and Plan (1) Pleural effusion: Status: Acute (2) Hypoxia: Status: Acute (3) Pneumonia: Status: Acute Plan Impression: 66-year-old lady with ESRD on hemodialysis admitted with progressive dyspnea, cough, and fever. CT chest with left-sided that effusion/atelectasis/infiltrate and right-sided patchy infiltrate. May have underlying community-acquired pneumonia, but definitely has significant component of volume overload. Right-sided infiltrate does appear to be MS, as it is unlikely that patient would develop a 4 cm mass in under 5 months, as there is no evidence of pulmonary nodule in that location on prior CT chest in June of 2021. Recommendations: Agree with community-acquired pneumonia antibiotic coverage. Consider increased ultrafiltration and repeat CT chest right after hemodialysis session. Procedures Date of Service Date of Service: 11/29/21
--- NOTE | 2021-11-29 10:32 | MHC.CDI.CONC ---
CDI Concurrent Query Documentation Clarification: PHYSICIAN'S DOCUMENTATION REQUEST Date of Query: 11/29/21 1033 Patient Name: Joslyn Padilla Admit Date: 11/28/21 Dear Doctor, A review of the medical record indicates additional documentation may be needed. Please review below and update the documentation accordingly. Clinical Indicators: Risk Factors/Clinical Indicators/Treatments Labs: potassium 5.8 H Sodium Zirconium Cyclosilicate/IV fluids. Patient with ESRD/Dialysis. Please provide in the Progress Notes the diagnosis(es) associated with the medication listed above Hyperkalemia or other etiology of lab findings Other (please specify) Unable to determine Use of terms such as suspected, likely, concern for, or probable (associated with a specific diagnosis that is being evaluated, monitored, or treated as if it exists) are acceptable and can be coded in the inpatient setting, when documented at the time of discharge. Thank you, Kati Jorge [facility], CDIS Extension: [phone] Please use your independent medical judgment in providing your response. THIS QUERY IS PART OF THE PERMANENT MEDICAL RECORD
--- NOTE | 2021-11-29 10:35 | HO.PM.IMPN ---
Subjective Subjective Date of Service: 11/29/21 Review of Systems Follow up CAP NO sob, pain, nausea Physical Exam Vital Signs: Vital Signs: Last Vital Signs Temp 96.8 F 11/29/21 07:18 Pulse 69 11/29/21 07:18 Resp 18 11/29/21 07:18 BP 154/72 H 11/29/21 07:18 Pulse Ox 94 11/29/21 07:18 BMI result Body Mass Index 31.7 Appearing in no acute distress lung sounds are clear to auscultation heart regular rate rhythm, clear S1, S2 positive bowel sounds, abdomen is soft, nontender neuro patient is alert x3, no focal deficits Objective Data Active Medications Acetaminophen (Acetaminophen 325 Mg Tablet) 650 mg PO Q6H PRN PRN Reason: Pain, Mild (Pain Scale 1-3) Dextrose (Dextrose 50 % 25 Gm/50 Ml Syringe) 25 gm IVPUSH Q15M PRN; Protocol PRN Reason: per Hypoglycemia Standing Ord. Glucose (Glucose Gel 15 Gm Gel..Gram.) 15 gm PO Q15M PRN; Protocol PRN Reason: per Hypoglycemia Standing Ord. Heparin Sodium (Porcine) (Heparin Sodium,Porcine 5,000 Unit/Ml Vial) 5,000 unit SUBCUT Q12H [facility] Last Admin: 11/29/21 02:08 Dose: 5,000 unit Documented by: BATSHEVA Ceftriaxone Sodium 1 gm/ (Sodium Chloride) 50 mls @ 100 mls/hr IV Q24H [facility] Azithromycin 500 mg/ Sodium (Chloride) 250 mls @ 125 mls/hr IV Q24H [facility] Last Infusion: 11/28/21 18:06 Dose: 0 mls/hr Documented by: SOPHIE Insulin Human Lispro (Insulin Lispro 100 Unit/Ml 3 Ml Vial) 0 unit SUBCUT QIDACHS [facility]; Protocol Last Admin: 11/29/21 07:37 Dose: 10 unit Documented by: WILLI Ondansetron HCl (Ondansetron Hcl 4 Mg/2 Ml Vial) 4 mg IVPUSH Q8H PRN PRN Reason: Nausea and Vomiting Pharmacy Consult (Consult Rx Perform Med Rec) 1 each MISCELLANE ONCE PRN PRN Reason: Consult order Sodium Chloride (0.9 % Sodium Chloride Flush 3 Ml Syringe) 3 ml IVFLUSH QSHIFT [facility] Last Admin: 11/29/21 07:38 Dose: 3 ml Documented by: WILLI Labs CBC & Chem 7: 11/29/21 05:25 11/29/21 05:25 Labs: Laboratory Results - last 24 hr 11/28/21 11/28/21 11/28/21 11:09 11:09 13:14 MCV MCH MCHC RDW Plt Count MPV Immature Gran % (Auto) Neut % (Auto) Lymph % (Auto) [place] % (Auto) Eos % (Auto) Baso % (Auto) Lymph # (Auto) [place] # (Auto) Eos # (Auto) Baso # (Auto) Abs Immat Gran (auto) Absolute Neuts (auto) Absolute Nucleated RBC Nucleated RBC % (auto) Anion Gap Estim Creat Clear Calc Estimated GFR POC Glucose 139 H Random Glucose Calcium Urine Color Urine Appearance Urine pH Ur Specific [place] Urine Protein Urine Glucose (UA) Urine Ketones Urine Blood Urine Nitrite Ur Leukocyte Esterase Urine RBC Urine WBC Ur Squamous Epith Cells Urine Bacteria Urine Yeast COVID-19 (KYLER) Negative COVID-19 Clin Com See Note Influenza Type A (LILY) Negative Influenza Type B (LILY) Negative Influenza A & B Note See Note 11/28/21 11/28/21 11/28/21 13:23 16:52 18:39 MCV MCH MCHC RDW Plt Count MPV Immature Gran % (Auto) Neut % (Auto) Lymph % (Auto) [place] % (Auto) Eos % (Auto) Baso % (Auto) Lymph # (Auto) [place] # (Auto) Eos # (Auto) Baso # (Auto) Abs Immat Gran (auto) Absolute Neuts (auto) Absolute Nucleated RBC Nucleated RBC % (auto) Anion Gap Estim Creat Clear Calc Estimated GFR POC Glucose 156 H 221 H Random Glucose Calcium Urine Color YELLOW Urine Appearance HAZY Urine pH 8.0 Ur Specific [place] 1.015 Urine Protein 2+ H Urine Glucose (UA) 100 H Urine Ketones NEG Urine Blood TRACE Urine Nitrite NEG Ur Leukocyte Esterase TRACE H Urine RBC 0-2 Urine WBC 5-9 H Ur Squamous Epith Cells 3+ Urine Bacteria 1+ Urine Yeast TRACE COVID-19 (KYLER) COVID-19 Clin Com Influenza Type A (LILY) Influenza Type B (LILY) Influenza A & B Note 11/28/21 11/29/21 11/29/21 20:12 05:25 05:25 MCV 93.0 MCH 30.1 MCHC 32.4 RDW 13.6 Plt Count 209 MPV 11.2 Immature Gran % (Auto) 1.3 H Neut % (Auto) 88.0 H Lymph % (Auto) 6.0 L [place] % (Auto) 4.4 Eos % (Auto) 0.0 Baso % (Auto) 0.3 Lymph # (Auto) 0.7 L [place] # (Auto) 0.5 Eos # (Auto) 0.0 Baso # (Auto) 0.0 Abs Immat Gran (auto) 0.15 H Absolute Neuts (auto) 10.2 H Absolute Nucleated RBC 0.000 Nucleated RBC % (auto) 0.0 Anion Gap 22 H Estim Creat Clear Calc 5.7 Estimated GFR 6 POC Glucose 360 H* Random Glucose 421 H* D Calcium 10.0 Urine Color Urine Appearance Urine pH Ur Specific [place] Urine Protein Urine Glucose (UA) Urine Ketones Urine Blood Urine Nitrite Ur Leukocyte Esterase Urine RBC Urine WBC Ur Squamous Epith Cells Urine Bacteria Urine Yeast COVID-19 (KYLER) COVID-19 Clin Com Influenza Type A (LLIY) Influenza Type B (LILY) Influenza A & B Note 11/29/21 07:15 MCV MCH MCHC RDW Plt Count MPV Immature Gran % (Auto) Neut % (Auto) Lymph % (Auto) [place] % (Auto) Eos % (Auto) Baso % (Auto) Lymph # (Auto) [place] # (Auto) Eos # (Auto) Baso # (Auto) Abs Immat Gran (auto) Absolute Neuts (auto) Absolute Nucleated RBC Nucleated RBC % (auto) Anion Gap Estim Creat Clear Calc Estimated GFR POC Glucose 380 H* Random Glucose Calcium Urine Color Urine Appearance Urine pH Ur Specific [place] Urine Protein Urine Glucose (UA) Urine Ketones Urine Blood Urine Nitrite Ur Leukocyte Esterase Urine RBC Urine WBC Ur Squamous Epith Cells Urine Bacteria Urine Yeast COVID-19 (KYLER) COVID-19 Clin Com Influenza Type A (LILY) Influenza Type B (LILY) Influenza A & B Note Microbiology Microbiology Results: Microbiology 11/28/21 Unknown Urine Culture - Final Urine clean catch - Urine cole top Assessment and Plan (1) Pneumonia: Status: Acute Plan 66 year old women admitted with? acute hypoxic respiratory failure secondary to community-acquired pneumonia Acute hypoxic respiratory failure secondary to CAP O2 sat 88% initially Start Rocephin and azithromycin Supplemental oxygen as needed blood cx pending Pulmonary consultation for question of mass to right upper lobe, no suspicious findings as per pulm End-stage renal disease.? Dialysis Monday, and Monday Nephrology consultation to set up dialysis renvela Hypertension continue home medications Diabetes sliding scale ada diet long acting insulin CAD continue asa and statin DVT prophylaxis with heparin Attending Dr. Mo Full code Patient requires continued hospitalization for treatment of acute hypoxic respiratory failure secondary to community-acquired pneumonia, will need IV antibiotics and continued monitoring of oxygen status Quality Stroke Does the patient have a stroke diagnosis?: No VTE Prior VTE?: No VTE Risk Level:: Medical - moderate - high VTE Device Contraindication: Treatment Not Indicated VTE Drug Contraindication: N/A - Med Ordered
[2021-11-29] MEDS: cefTRIAXone sodium 1 GM in 0.9 % Sodium Chloride 50 ML IV (11:10)
[2021-11-29 11:28] LABS: Glucose, Whole Blood 438 mg/dL (60-115)
--- NOTE | 2021-11-29 11:51 | PM.PNNEP ---
Subjective Subjective Date of Service: 11/29/21 Interval history: seen and examined Physical Exam Vital Signs: Vital Signs: Last Vital Signs Temp 96.8 F 11/29/21 07:18 Pulse 69 11/29/21 07:18 Resp 18 11/29/21 07:18 BP 154/72 H 11/29/21 07:18 Pulse Ox 94 11/29/21 07:18 BMI result Body Mass Index 31.7 Objective Data Labs CBC & Chem 7: 11/29/21 05:25 11/29/21 05:25 Labs: Laboratory Results - last 24 hr 11/28/21 11/28/21 11/28/21 13:14 13:23 16:52 WBC RBC Hgb Hct MCV MCH MCHC RDW Plt Count MPV Immature Gran % (Auto) Neut % (Auto) Lymph % (Auto) [place] % (Auto) Eos % (Auto) Baso % (Auto) Lymph # (Auto) [place] # (Auto) Eos # (Auto) Baso # (Auto) Abs Immat Gran (auto) Absolute Neuts (auto) Absolute Nucleated RBC Nucleated RBC % (auto) Sodium Potassium Chloride Carbon Dioxide Anion Gap BUN Creatinine Estim Creat Clear Calc Estimated GFR POC Glucose 139 H 156 H Random Glucose Calcium Urine Color YELLOW Urine Appearance HAZY Urine pH 8.0 Ur Specific [place] 1.015 Urine Protein 2+ H Urine Glucose (UA) 100 H Urine Ketones NEG Urine Blood TRACE Urine Nitrite NEG Ur Leukocyte Esterase TRACE H Urine RBC 0-2 Urine WBC 5-9 H Ur Squamous Epith Cells 3+ Urine Bacteria 1+ Urine Yeast TRACE 11/28/21 11/28/21 11/29/21 18:39 20:12 05:25 WBC 11.6 H RBC 3.85 L Hgb 11.6 L Hct 35.8 L MCV 93.0 MCH 30.1 MCHC 32.4 RDW 13.6 Plt Count 209 MPV 11.2 Immature Gran % (Auto) 1.3 H Neut % (Auto) 88.0 H Lymph % (Auto) 6.0 L [place] % (Auto) 4.4 Eos % (Auto) 0.0 Baso % (Auto) 0.3 Lymph # (Auto) 0.7 L [place] # (Auto) 0.5 Eos # (Auto) 0.0 Baso # (Auto) 0.0 Abs Immat Gran (auto) 0.15 H Absolute Neuts (auto) 10.2 H Absolute Nucleated RBC 0.000 Nucleated RBC % (auto) 0.0 Sodium Potassium Chloride Carbon Dioxide Anion Gap BUN Creatinine Estim Creat Clear Calc Estimated GFR POC Glucose 221 H 360 H* Random Glucose Calcium Urine Color Urine Appearance Urine pH Ur Specific [place] Urine Protein Urine Glucose (UA) Urine Ketones Urine Blood Urine Nitrite Ur Leukocyte Esterase Urine RBC Urine WBC Ur Squamous Epith Cells Urine Bacteria Urine Yeast 11/29/21 11/29/21 11/29/21 05:25 07:15 11:23 WBC RBC Hgb Hct MCV MCH MCHC RDW Plt Count MPV Immature Gran % (Auto) Neut % (Auto) Lymph % (Auto) [place] % (Auto) Eos % (Auto) Baso % (Auto) Lymph # (Auto) [place] # (Auto) Eos # (Auto) Baso # (Auto) Abs Immat Gran (auto) Absolute Neuts (auto) Absolute Nucleated RBC Nucleated RBC % (auto) Sodium 133 L Potassium 5.8 H D Chloride 93 L Carbon Dioxide 24 Anion Gap 22 H BUN 57 H D Creatinine 7.33 H* Estim Creat Clear Calc 5.7 Estimated GFR 6 POC Glucose 380 H* 438 H* Random Glucose 421 H* D Calcium 10.0 Urine Color Urine Appearance Urine pH Ur Specific [place] Urine Protein Urine Glucose (UA) Urine Ketones Urine Blood Urine Nitrite Ur Leukocyte Esterase Urine RBC Urine WBC Ur Squamous Epith Cells Urine Bacteria Urine Yeast Microbiology Microbiology Results: Microbiology 11/28/21 Unknown Urine clean catch - Urine cole top Urine Culture - Final Procedures Date of Service Date of Service: 11/29/21 Assessment & Plan Assessment and plan (1) End stage chronic kidney disease: Status: Acute (2) Hyperkalemia: Status: Acute (3) Pneumonia: Status: Acute Plan usually has HD at [place] dialysis unit on [facility] admitted with PNA REC HD tomorrow sodium zirconium 10 gram renal diet phosphate binders no need for ELYSSA Time Spent With Patient Time: Total time spent is greater than 50% in coordination of care (as documented) at patient's floor/unit and/or counseling patient: Progress Note: Quality Stroke Does the patient have a stroke diagnosis?: No
[2021-11-29 12:00] VITALS: BP 168/72; PULSE 76; RESP 18; TEMP 36.6; O2SAT 96
[2021-11-29] MEDS: calcitrioL 0.25 MCG CAPSULE PO (13:42)
[2021-11-29] MEDS: Sevelamer Carbonate Tablet 800 MG TABLET PO ×2 (13:43→17:17)
[2021-11-29] MEDS: Azithromycin 500 MG in 0.9 % Sodium Chloride 250 ML 125 MG IV (15:04)
--- NOTE | 2021-11-29 15:18 | MHC.CLN ---
NUTRITION CONSULT FOR WEIGHT LOSS. PATIENT WITH ESRD ON DIALYSIS. ASLEEP AT TIME OF VISIT. APPEARS WELL NOURISHED. ATE 100% OF BREAKFAST AND LUNCH. WEIGHT LOSS X 9 MONTHS=-10.7%. HX OF EDEMA, ESRD AND DIALYSIS CONTRIBUTORS TO WEIGHT FLUCTUATION, SO NOT DEEMED UNPLANNED WEIGHT LOSS. DIET MODIFIED FOR DIALYSIS PARAMETERS: DIABETIC 1800 KCALS, 2 GRAM SODIUM, LOW POTASSIUM, LOW PHOSPHORUS.
[2021-11-29 15:59] VITALS: BP 157/72; PULSE 69; RESP 18; TEMP 36.4; O2SAT 96
[2021-11-29 16:33] LABS: Glucose, Whole Blood 389 mg/dL (60-115)
[2021-11-29] MEDS: Ferrous Sulfate 324 MG TABLET.DR PO (17:17)
[2021-11-29] MEDS: Atorvastatin Calcium 80 MG TABLET PO (19:48)
[2021-11-29] MEDS: Ascorbic Acid 500 MG TABLET PO (19:48)
[2021-11-29] MEDS: hydrALAZINE HCl 10 MG TABLET PO (19:48)
[2021-11-29] MEDS: Furosemide 40 MG TABLET 120 MG PO (19:48)
[2021-11-29] MEDS: carvediloL 6.25 MG TABLET PO (19:48)
[2021-11-29] MEDS: Aspirin Enteric Coated 81 MG TABLET.DR PO (19:48)
[2021-11-29] MEDS: Montelukast Sodium 10 MG TABLET PO (19:49)
[2021-11-29] MEDS: Docusate Sodium 100 MG CAPSULE PO (19:49)
[2021-11-29 20:00] VITALS: BP 185/93; PULSE 70; RESP 18; TEMP 36.7
[2021-11-29] MEDS: Albuterol Sulfate 90 MCG 8 GM INHALER 2 PUFF INHALE (20:06)
[2021-11-29] MEDS: Fluticasone Propionate 100 MCG BLST.W.DEV 2 PUFF INHALE (20:07)
[2021-11-29 20:12] VITALS: PULSE 70; RESP 18; O2SAT 91
[2021-11-29 20:53] LABS: Glucose, Whole Blood 416 mg/dL (60-115)
[2021-11-29] MEDS: Insulin Glargine,Hum.rec.anlog 100 UNIT/ML 10 ML VIAL 28 UNIT SUBCUT (21:03)
[2021-11-30] VITALS (7 sets, daily range): BP systolic 122–182; BP diastolic 60–99; PULSE 64–83; RESP 17–20; TEMP 36–36.8; O2SAT 93–98
[2021-11-30] MEDS: Heparin Sodium,Porcine 5,000 UNIT/ML VIAL 5000 UNIT SUBCUT ×2 (01:07→14:00)
[2021-11-30] MEDS: Acetaminophen 325 MG TABLET 650 MG PO ×2 (05:35→14:28)
[2021-11-30] MEDS: oxyCODONE HCl Immed Release 5 MG TABLET PO ×3 (05:35→20:16)
[2021-11-30] MEDS: Omeprazole 20 MG CAPSULE.DR PO (05:36)
[2021-11-30 06:01] LABS: Hematocrit 31.8 % (37.0-47.0); Hemoglobin 10.4 g/dl (12.0-16.0); Mean Corpuscular HGB Conc 32.7 g/dl (31.0-35.0); Mean Corpuscular Hemoglobin 30.1 pg (27.0-33.0); Mean Corpuscular Volume 91.9 fL (80.0-98.0); Mean Platelet Volume 10.8 fL (9.4-12.3); Platelet Count 216 X10*3/uL (160-400); Red Blood Count 3.46 X10*6/uL (4.20-5.50); Red Cell Distribution Width 13.9 % (11.0-16.0); White Blood Count 11.7 X10*3/uL (4.8-10.8)
--- NOTE | 2021-11-30 08:59 | P.CDIC_ITS ---
CDI Concurrent Query Documentation Clarification: PHYSICIAN'S DOCUMENTATION REQUEST Date of Query: 11/30/21 0859 Patient Name: Joslyn Padilla Admit Date: 11/28/21 Dear Doctor, A review of the medical record indicates additional documentation may be needed. Please review below and update the documentation accordingly. Clinical Indicators: Risk Factors/Clinical Indicators/Treatments Diabetes Mellitus Type 2 - POC glucose: 360 H 416 H Insulin Pulmonary note 11/29: Type 2 Diabetes Mellitus w unspecified complications. Please clarify the following regarding Diabetes Mellitus (DM): * Hyperglycemia * Uncontrolled * Poorly controlled * No complications of DM * Other complication ? please specify * Unable to determine Use of terms such as suspected, likely, concern for, or probable (associated with a specific diagnosis that is being evaluated, monitored, or treated as if it exists) are acceptable and can be coded in the inpatient setting, when documented at the time of discharge. Thank you, Kati Jorge [facility], CDIS Extension: [phone] Please use your independent medical judgment in providing your response. THIS QUERY IS PART OF THE PERMANENT MEDICAL RECORD Other Diagnosis: poorly controlled
--- NOTE | 2021-11-30 09:19 | HO.PM.IMPN ---
Subjective Subjective Date of Service: 11/30/21 Review of Systems Follow up CAP NO sob, pain, nausea c/o headache pain, did not sleep well Physical Exam Vital Signs: Vital Signs: Last Vital Signs Temp 97.4 F 11/30/21 03:46 Pulse 70 11/30/21 03:46 Resp 17 11/30/21 03:46 BP 182/99 H 11/30/21 03:46 Pulse Ox 94 11/30/21 03:46 BMI result Body Mass Index 31.7 Appearing in no acute distress lung sounds are clear to auscultation heart regular rate rhythm, clear S1, S2 positive bowel sounds, abdomen is soft, nontender neuro patient is alert x3, no focal deficits Objective Data Active Medications Acetaminophen (Acetaminophen 325 Mg Tablet) 650 mg PO Q6H PRN PRN Reason: Pain, Mild (Pain Scale 1-3) Last Admin: 11/30/21 05:35 Dose: 650 mg Documented by: DOLORES Albuterol Sulfate (Albuterol Sulfate 90 Mcg 8 Gm Inhaler) 2 puff INHALE RQ4H PRN PRN Reason: Shortness Of Breath Last Admin: 11/29/21 20:06 Dose: 2 puff Documented by: SAMARA Amlodipine Besylate (Amlodipine Besylate 10 Mg Tablet) 10 mg PO DAILY [facility]; Protocol Ascorbic Acid (Ascorbic Acid 500 Mg Tablet) 500 mg PO BID [facility] Last Admin: 11/29/21 19:48 Dose: 500 mg Documented by: DOLORES Aspirin (Aspirin Enteric Coated 81 Mg Tablet.) 81 mg PO BEDTIME [facility] Last Admin: 11/29/21 19:48 Dose: 81 mg Documented by: DOLORES Atorvastatin Calcium (Atorvastatin Calcium 80 Mg Tablet) 80 mg PO BEDTIME [facility] Last Admin: 11/29/21 19:48 Dose: 80 mg Documented by: DOLORES Calcitriol (Calcitriol 0.25 Mcg Capsule) 0.25 mcg PO Q2D [facility] Last Admin: 11/29/21 13:42 Dose: 0.25 mcg Documented by: WILLI Carvedilol (Carvedilol 6.25 Mg Tablet) 6.25 mg PO BID [facility]; Protocol Last Admin: 11/29/21 19:48 Dose: 6.25 mg Documented by: DOLORES Cyclobenzaprine HCl (Cyclobenzaprine Hcl 5 Mg Tablet) 5 mg PO TID PRN PRN Reason: muscle spasm or pain Dextrose (Dextrose 50 % 25 Gm/50 Ml Syringe) 25 gm IVPUSH Q15M PRN; Protocol PRN Reason: per Hypoglycemia Standing Ord. Docusate Sodium (Docusate Sodium 100 Mg Capsule) 100 mg PO BID [facility] Last Admin: 11/29/21 19:49 Dose: 100 mg Documented by: DOLORES Ezetimibe (Ezetimibe 10 Mg Tablet) 10 mg PO DAILY [facility] Ferrous Sulfate (Ferrous Sulfate 324 Mg Tablet.Dr) 324 mg PO BIDWM [facility] Last Admin: 11/29/21 17:17 Dose: 324 mg Documented by: PEYTON Fluticasone Propionate (Fluticasone Propionate 100 Mcg Blst.W.Dev) 2 puff INHALE RBID [facility] Last Admin: 11/30/21 07:35 Dose: Not Given Documented by: MARY BETH Non-Admin Reason: pt off unit Furosemide (Furosemide 40 Mg Tablet) 120 mg PO BID [facility]; Protocol Last Admin: 11/29/21 19:48 Dose: 120 mg Documented by: DOLORES Glucose (Glucose Gel 15 Gm Gel..Gram.) 15 gm PO Q15M PRN; Protocol PRN Reason: per Hypoglycemia Standing Ord. Heparin Sodium (Porcine) (Heparin Sodium,Porcine 5,000 Unit/Ml Vial) 5,000 unit SUBCUT Q12H [facility] Last Admin: 11/30/21 01:07 Dose: 5,000 unit Documented by: DOLORES Hydralazine HCl (Hydralazine Hcl 10 Mg Tablet) 10 mg PO BID [facility]; Protocol Last Admin: 11/29/21 19:48 Dose: 10 mg Documented by: DOLORES Ceftriaxone Sodium 1 gm/ (Sodium Chloride) 50 mls @ 100 mls/hr IV Q24H [facility] Last Infusion: 11/29/21 12:10 Dose: 100 mls/hr Documented by: WILLI Azithromycin 500 mg/ Sodium (Chloride) 250 mls @ 125 mls/hr IV Q24H [facility] Last Infusion: 11/29/21 17:20 Dose: 0 mls/hr Documented by: PEYTON Insulin Glargine (Insulin Glargine,Hum.Rec.Anlog 100 Unit/Ml 10 Ml Vial) 28 unit SUBCUT BEDTIME [facility] Last Admin: 11/29/21 21:03 Dose: 28 unit Documented by: DOLORES Insulin Human Lispro (Insulin Lispro 100 Unit/Ml 3 Ml Vial) [facility] Protocol Last Admin: 11/29/21 21:04 Dose: 10 unit Documented by: DOLORES Insulin Human Lispro (Insulin Lispro 100 Unit/Ml 3 Ml Vial) 5 unit SUBCUT QIDAS [facility] Last Admin: 11/29/21 21:04 Dose: 5 unit Documented by: DOLORES Loratadine (Loratadine 10 Mg Tablet) 10 mg PO DAILY [facility] Montelukast Sodium (Montelukast Sodium 10 Mg Tablet) 10 mg PO BEDTIME [facility] Last Admin: 11/29/21 19:49 Dose: 10 mg Documented by: DOLORES Omeprazole (Omeprazole 20 Mg Capsule.Dr) 20 mg PO DAILY@0630 [facility] Last Admin: 11/30/21 05:36 Dose: 20 mg Documented by: DOLORES Ondansetron HCl (Ondansetron Hcl 4 Mg/2 Ml Vial) 4 mg IVPUSH Q8H PRN PRN Reason: Nausea and Vomiting Oxycodone HCl (Oxycodone Hcl Immed Release 5 Mg Tablet) 5 mg PO Q6H PRN PRN Reason: Pain or spasm Last Admin: 11/30/21 05:35 Dose: 5 mg Documented by: DOLORES Pharmacy Consult (Consult Rx Perform Med Rec) 1 each MISCELLANE ONCE PRN PRN Reason: Consult order Sertraline HCl (Sertraline Hcl 50 Mg Tablet) 150 mg PO DAILY [facility] Sevelamer Carbonate (Sevelamer Carbonate Tablet 800 Mg Tablet) 800 mg PO TIDWM [facility] Last Admin: 11/29/21 17:17 Dose: 800 mg Documented by: PEYTON Sodium Chloride (0.9 % Sodium Chloride Flush 3 Ml Syringe) 3 ml IVFLUSH QSHIFT [facility] Last Admin: 11/29/21 19:52 Dose: 3 ml Documented by: DOLORES Vitamin D (Cholecalciferol (Vitamin D3) 25 Mcg Tablet) 25 mcg PO DAILY [facility] Labs CBC & Chem 7: 11/30/21 05:24 11/29/21 05:25 Labs: Laboratory Results - last 24 hr 11/29/21 11/29/21 11/29/21 11:23 16:29 20:32 MCV MCH MCHC RDW Plt Count MPV Absolute Nucleated RBC Nucleated RBC % (auto) POC Glucose 438 H* 389 H* 416 H* 11/30/21 05:24 MCV 91.9 MCH 30.1 MCHC 32.7 RDW 13.9 Plt Count 216 MPV 10.8 Absolute Nucleated RBC 0.000 Nucleated RBC % (auto) 0.0 POC Glucose Microbiology Microbiology Results: Microbiology 11/28/21 10:34 Blood Culture - Preliminary Blood - Venous No growth after 24 hours. 11/28/21 10:34 Blood Culture - Preliminary Blood - Venous No growth after 24 hours. 11/28/21 Unknown Urine Culture - Final Urine clean catch - Urine cole top Assessment and Plan (1) Pneumonia: Status: Acute Plan 66 year old women admitted with? acute hypoxic respiratory failure secondary to community-acquired pneumonia Acute hypoxic respiratory failure secondary to CAP O2 sat 88% initially, improved contine Rocephin and azithromycin Supplemental oxygen as needed blood cx neg after 24hrs Pulmonary consultation for question of mass to right upper lobe, no suspicious findings as per pulm End-stage renal disease.? Dialysis Monday, and Monday Nephrology following renvela Hypertension continue home medications Poorly controlled Diabetes sliding scale ada diet long acting insulin CAD continue asa and statin DVT prophylaxis with heparin Attending Dr. Jacinto Full code Patient requires continued hospitalization for treatment of acute hypoxic respiratory failure secondary to community-acquired pneumonia, will need IV antibiotics and continued monitoring of oxygen status Quality Stroke Does the patient have a stroke diagnosis?: No VTE Prior VTE?: No VTE Risk Level:: Medical - moderate - high VTE Device Contraindication: Treatment Not Indicated VTE Drug Contraindication: N/A - Med Ordered
[2021-11-30 10:32] LABS: Anion Gap 16 (12-20); Blood Urea Nitrogen 17 mg/dL (9-16); Calcium 9.5 mg/dL (8.4-10.2); Carbon Dioxide 22 mmol/L (22-29); Chloride 102 mmol/L (96-108); Creatinine Clr Calc Pharmacy 16.8; Estimated Glomerular Filt Rate 19; Glucose Random 105 mg/dL (60-115); Potassium 3.1 mmol/L (3.3-5.1); Sodium 137 mmol/L (135-145)
[2021-11-30] MEDS: Cholecalciferol (Vitamin D3) 25 MCG TABLET PO (11:02)
[2021-11-30] MEDS: Loratadine 10 MG TABLET PO (11:02)
[2021-11-30] MEDS: Ascorbic Acid 500 MG TABLET PO ×2 (11:02→20:16)
[2021-11-30] MEDS: Ferrous Sulfate 324 MG TABLET.DR PO ×2 (11:02→16:50)
[2021-11-30] MEDS: Docusate Sodium 100 MG CAPSULE PO ×2 (11:03→20:16)
[2021-11-30] MEDS: hydrALAZINE HCl 10 MG TABLET PO ×2 (11:03→20:15)
[2021-11-30] MEDS: carvediloL 6.25 MG TABLET PO ×2 (11:03→20:16)
[2021-11-30] MEDS: Sevelamer Carbonate Tablet 800 MG TABLET PO ×2 (11:03→16:50)
[2021-11-30] MEDS: Ezetimibe 10 MG TABLET PO (11:03)
[2021-11-30] MEDS: Sertraline HCL 50 MG TABLET 150 MG PO (11:04)
[2021-11-30] MEDS: amLODIPine Besylate 10 MG TABLET PO (11:04)
[2021-11-30] MEDS: Furosemide 40 MG TABLET 120 MG PO ×2 (11:05→20:17)
[2021-11-30] MEDS: cefTRIAXone sodium 1 GM in 0.9 % Sodium Chloride 50 ML IV (11:06)
[2021-11-30] MEDS: Cyclobenzaprine HCl 5 MG TABLET PO (11:08)
[2021-11-30 11:41] LABS: Glucose, Whole Blood 106 mg/dL (60-115)
[2021-11-30] MEDS: Azithromycin 500 MG in 0.9 % Sodium Chloride 250 ML 125 MG IV (14:30)
--- NOTE | 2021-11-30 14:51 | MHC.CM.PN ---
IMM 11/30, PT ADMITTED W/CAP AND HYPOXIA, PT HAD DIALYSIS TODAY, CM MET W/PT VIA [employer]OW [employer]ER, PT REPORTS SHE IS INDEP W/CARE, HAS A CANE/WALKER AND GRAB BARS IN BR, PT DENIES HAVING HOME SERVICES AND REPORTS SHE GOES TO HD [place] HOWEVER DOES NOT REMEMBER NAM, PT VERIES PCP NALINI SERNA, PT REPORTS HER HCP IS MATTHEW [facility] [phone], COPY HAS BEEN REQUESTED. D/C PLAN: HOME NO SERVICES W/FAMILY FOR TRANSPORT. PER HOSPITALIST PT MAY BE ABLE D/C TOMORROW.
[2021-11-30 15:25] LABS: Glucose, Whole Blood 149 mg/dL (60-115)
--- NOTE | 2021-11-30 15:29 | PM.PNNEP ---
Subjective Subjective Date of Service: 11/30/21 Interval history: seen and examined sitting out of bed no complaints Physical Exam Vital Signs: Vital Signs: Last Vital Signs Temp 98.3 F 11/30/21 11:56 Pulse 74 11/30/21 11:56 Resp 18 11/30/21 11:56 BP 144/68 H 11/30/21 11:56 Pulse Ox 98 11/30/21 11:56 BMI result Body Mass Index 31.7 Const: General: no acute distress HEENT: Head: Yes normocephalic and Yes atraumatic Neck: Neck: Yes supple Resp: Auscultation: diminished lung sounds Cardio: Heart sounds: S1 normal heart sound present and S2 normal heart sound present GI: Palpation (GI): Soft to palpation and nontender Extrem: General: Yes no pedal edema Objective Data Labs CBC & Chem 7: 11/30/21 05:24 11/30/21 09:40 Labs: Laboratory Results - last 24 hr 11/29/21 11/29/21 11/30/21 16:29 20:32 05:24 WBC 11.7 H RBC 3.46 L Hgb 10.4 L Hct 31.8 L MCV 91.9 MCH 30.1 MCHC 32.7 RDW 13.9 Plt Count 216 MPV 10.8 Absolute Nucleated RBC 0.000 Nucleated RBC % (auto) 0.0 Sodium Potassium Chloride Carbon Dioxide Anion Gap BUN Creatinine Estim Creat Clear Calc Estimated GFR POC Glucose 389 H* 416 H* Random Glucose Calcium 11/30/21 11/30/21 11/30/21 09:40 10:59 15:20 WBC RBC Hgb Hct MCV MCH MCHC RDW Plt Count MPV Absolute Nucleated RBC Nucleated RBC % (auto) Sodium 137 Potassium 3.1 L D Chloride 102 Carbon Dioxide 22 Anion Gap 16 BUN 17 H D Creatinine 2.51 H Estim Creat Clear Calc 16.8 Estimated GFR 19 POC Glucose 106 149 H Random Glucose 105 D Calcium 9.5 Microbiology Microbiology Results: Microbiology 11/28/21 10:34 Blood - Venous Blood Culture - Preliminary No growth after 48 hours. 11/28/21 10:34 Blood - Venous Blood Culture - Preliminary No growth after 48 hours. 11/28/21 Unknown Urine clean catch - Urine cole top Urine Culture - Final Procedures Date of Service Date of Service: 11/30/21 Assessment & Plan Assessment and plan (1) End stage chronic kidney disease: Status: Acute (2) Hyperkalemia: Status: Acute (3) Pneumonia: Status: Acute Plan s/p HD usually has HD at [place] dialysis unit on [facility] admitted with PNA REC HD today volume optimization renal diet phosphate binders ELYSSA per protocol Time Spent With Patient Time: Total time spent is greater than 50% in coordination of care (as documented) at patient's floor/unit and/or counseling patient: Progress Note: Quality Stroke Does the patient have a stroke diagnosis?: No
[2021-11-30] MEDS: guaiFENesin DM 100/10/5 ML 5 ML SYRUP PO (15:44)
[2021-11-30] MEDS: 0.9 % Sodium Chloride Flush 3 ML SYRINGE IVFLUSH ×2 (15:45→23:46)
[2021-11-30] MEDS: Insulin Lispro 100 UNIT/ML 3 ML VIAL SUBCUT ×2 (16:49→20:15)
[2021-11-30 17:25] LABS: Glucose, Whole Blood 146 mg/dL (60-115)
[2021-11-30] MEDS: Fluticasone Propionate 100 MCG BLST.W.DEV 2 PUFF INHALE (19:15)
[2021-11-30 20:04] LABS: Glucose, Whole Blood 101 mg/dL (60-115)
[2021-11-30] MEDS: Insulin Glargine,Hum.rec.anlog 100 UNIT/ML 10 ML VIAL 28 UNIT SUBCUT (20:13)
[2021-11-30] MEDS: Aspirin Enteric Coated 81 MG TABLET.DR PO (20:15)
[2021-11-30] MEDS: Montelukast Sodium 10 MG TABLET PO (20:15)
[2021-11-30] MEDS: Atorvastatin Calcium 80 MG TABLET PO (20:16)
[2021-12-01] MEDS: Heparin Sodium,Porcine 5,000 UNIT/ML VIAL 5000 UNIT SUBCUT ×2 (02:47→13:35)
[2021-12-01 03:36] VITALS: BP 134/63; PULSE 63; RESP 15; TEMP 37.3; O2SAT 94
[2021-12-01] MEDS: oxyCODONE HCl Immed Release 5 MG TABLET PO ×3 (03:46→18:49)
[2021-12-01] MEDS: Omeprazole 20 MG CAPSULE.DR PO (06:11)
[2021-12-01 07:16] LABS: Glucose, Whole Blood 63 mg/dL (60-115)
[2021-12-01 07:54] VITALS: BP 153/66; PULSE 71; RESP 18; TEMP 36.3; O2SAT 90
[2021-12-01] MEDS: Sertraline HCL 50 MG TABLET 150 MG PO (08:11)
[2021-12-01] MEDS: Loratadine 10 MG TABLET PO (08:12)
[2021-12-01] MEDS: hydrALAZINE HCl 10 MG TABLET PO ×2 (08:12→22:22)
[2021-12-01] MEDS: Ezetimibe 10 MG TABLET PO (08:12)
[2021-12-01] MEDS: Docusate Sodium 100 MG CAPSULE PO ×2 (08:12→22:21)
[2021-12-01] MEDS: amLODIPine Besylate 10 MG TABLET PO (08:12)
[2021-12-01] MEDS: Cyclobenzaprine HCl 5 MG TABLET PO (08:12)
[2021-12-01] MEDS: Ascorbic Acid 500 MG TABLET PO ×2 (08:12→22:21)
[2021-12-01] MEDS: Cholecalciferol (Vitamin D3) 25 MCG TABLET PO (08:13)
[2021-12-01] MEDS: carvediloL 6.25 MG TABLET PO ×2 (08:13→22:21)
[2021-12-01] MEDS: Furosemide 40 MG TABLET 120 MG PO ×2 (08:13→22:22)
[2021-12-01] MEDS: Ferrous Sulfate 324 MG TABLET.DR PO ×2 (08:15→16:39)
[2021-12-01] MEDS: Sevelamer Carbonate Tablet 800 MG TABLET PO ×3 (08:16→16:39)
[2021-12-01] MEDS: 0.9 % Sodium Chloride Flush 3 ML SYRINGE IVFLUSH ×2 (08:16→16:39)
[2021-12-01] MEDS: guaiFENesin DM 100/10/5 ML 5 ML SYRUP PO ×2 (08:17→18:54)
[2021-12-01 08:50] LABS: Glucose, Whole Blood 120 mg/dL (60-115)
--- NOTE | 2021-12-01 10:43 | PM.PNNEP ---
Subjective Subjective Date of Service: 12/01/21 Interval history: seen and examined sitting out of bed son at bedside updated complains of pleuretic chest pain Physical Exam Vital Signs: Vital Signs: Last Vital Signs Temp 97.4 F 12/01/21 07:54 Pulse 71 12/01/21 07:54 Resp 18 12/01/21 07:54 BP 153/66 H 12/01/21 07:54 Pulse Ox 90 L 12/01/21 07:54 BMI result Body Mass Index 31.7 Const: General: no acute distress HEENT: Head: Yes normocephalic and Yes atraumatic Neck: Neck: Yes supple Resp: Auscultation: diminished lung sounds Cardio: Heart sounds: S1 normal heart sound present and S2 normal heart sound present GI: Palpation (GI): Soft to palpation and nontender Extrem: General: Yes no pedal edema Objective Data Labs CBC & Chem 7: 11/30/21 05:24 11/30/21 09:40 Labs: Laboratory Results - last 24 hr 11/30/21 11/30/21 11/30/21 10:59 15:20 17:21 POC Glucose 106 149 H 146 H 11/30/21 12/01/21 12/01/21 20:00 07:05 08:46 POC Glucose 101 63 120 H Microbiology Microbiology Results: Microbiology 11/28/21 10:34 Blood - Venous Blood Culture - Preliminary No growth after 48 hours. 11/28/21 10:34 Blood - Venous Blood Culture - Preliminary No growth after 48 hours. 11/28/21 Unknown Urine clean catch - Urine cole top Urine Culture - Final Procedures Date of Service Date of Service: 12/01/21 Assessment & Plan Assessment and plan (1) End stage chronic kidney disease: Status: Acute (2) Pneumonia: Status: Acute Plan usually has HD at [place] dialysis unit on [facility] admitted with PNA REC HD tomorrow renal diet phosphate binders ELYSSA per protocol Time Spent With Patient Time: Total time spent is greater than 50% in coordination of care (as documented) at patient's floor/unit and/or counseling patient: Progress Note: Quality Stroke Does the patient have a stroke diagnosis?: No
[2021-12-01] MEDS: cefTRIAXone sodium 1 GM in 0.9 % Sodium Chloride 50 ML IV (11:15)
[2021-12-01] MEDS: Potassium Chloride Packet 20 MEQ PACKET PO (11:15)
[2021-12-01 11:34] VITALS: BP 144/66; PULSE 68; RESP 18; TEMP 36.3; O2SAT 96
[2021-12-01 11:42] LABS: Glucose, Whole Blood 80 mg/dL (60-115)
--- NOTE | 2021-12-01 11:46 | CONS_ITS ---
DATE OF SERVICE: 11/30/2021 HISTORY OF PRESENT ILLNESS: This is a 66-year-old patient with a history of end-stage renal disease on chronic hemodialysis, presented to the hospital with shortness of breath. The patient complains of left-sided flank and chest pain without fever or chills. She did have a CT scan of the chest, which showed a left lower lobe consolidation with underlying small pleural effusion. There is no report of nausea, vomiting, or diarrhea. The patient was admitted for management of her community-acquired pneumonia. PAST MEDICAL HISTORY: Remarkable for end-stage renal disease, hypertension, diabetes mellitus, obstructive sleep apnea, osteoarthritis, depression, coronary artery disease, asthma. PAST SURGICAL HISTORY: Notable for coronary artery bypass graft surgery. MEDICATIONS: Medications as inpatient and outpatient reviewed. ALLERGIES: SHE IS NOT ALLERGIC TO MEDICATIONS. SOCIAL HISTORY: Does not smoke. FAMILY HISTORY: Negative for kidney disease. REVIEW OF SYSTEMS: Ten-point review of systems negative except in history of present illness. PHYSICAL EXAMINATION: VITAL SIGNS: Blood pressure is 154/72, heart rate 69, respiratory rate 18, temperature 96.8. CONSTITUTIONAL: Looks stated age. No acute distress. NEUROLOGIC: Alert, awake and oriented. HEAD: Atraumatic and normocephalic. NECK: Supple. LUNGS: Decreased breath sounds. CARDIOVASCULAR: S1, S2. No rub. ABDOMEN: Soft and nontender. EXTREMITIES: No pedal edema. LABORATORY DATA: White count 11.6, hemoglobin 11.3, platelet count 209. Sodium 133, potassium 5.8, chloride 93, CO2 of 24, BUN 57, creatinine 7.33. IMPRESSION: 1. End-stage renal disease. 2. Hyperkalemia. 3. Pneumonia. This patient normally dialyzes Monday, , Monday at [facility], admitted with pneumonia. I would resume hemodialysis per schedule. We will give her sodium zirconium 10 g. We will have her on a renal diet and phosphate binder. She does not need Epogen for the time being. Thank you for allowing me to participate in the care of this patient. Wang Alatorre MD GF/MODL / [phone]
--- NOTE | 2021-12-01 12:40 | MHC.CM.PN ---
Addendum entered by Dulce Maria Joyce 12/01/21 12:41: CORRECTION; DC 12/02/2021 Original Note: PER PHYSICIAN ROUNDS, PLAN IS DISCHARGE ON Monday12/03/21 HOME - SELF CARE
[2021-12-01] MEDS: calcitrioL 0.25 MCG CAPSULE PO (13:35)
[2021-12-01 15:17] VITALS: BP 128/64; PULSE 60; RESP 18; TEMP 36.6; O2SAT 94
[2021-12-01 16:04] LABS: Glucose, Whole Blood 131 mg/dL (60-115)
[2021-12-01] MEDS: Azithromycin 500 MG in 0.9 % Sodium Chloride 250 ML 125 MG IV (16:38)
--- NOTE | 2021-12-01 17:10 | HO.PM.IMPN ---
Subjective Subjective Date of Service: 12/01/21 Interval History: Complaining of lower back pain worse with coughing and deep breathing feels weak, noted to have low potassium of 3.1, no other acute issues overnight, denies fever chills, no nausea no vomiting tolerating diet no diarrhea. Review of Systems Review of Systems: Yes all other systems are reviewed and are negative Physical Exam Vital Signs: Vital Signs: Last Vital Signs Temp 97.9 F 12/01/21 15:17 Pulse 60 12/01/21 15:17 Resp 18 12/01/21 15:17 BP 128/64 12/01/21 15:17 Pulse Ox 94 12/01/21 15:17 BMI result Body Mass Index 31.7 Const: Other: General alert oriented x3,no acute distress. Neck supple no JVD. CVS regular rate rhythm, Respiratory lungs clear to auscultation, no respiratory distress, no wheeze, no rhonchi. Gastrointestinal abdomen soft, nontender, bowel sounds audible Extremities no edema. Neuro nonfocal Skin no rash Psych appropriate affect Musculoskeletal positive tenderness left lumbar paravertebral muscle Objective Data Active Medications Acetaminophen (Acetaminophen 325 Mg Tablet) 650 mg PO Q6H PRN PRN Reason: Pain, Mild (Pain Scale 1-3) Last Admin: 11/30/21 14:28 Dose: 650 mg Documented by: WILLI Albuterol Sulfate (Albuterol Sulfate 90 Mcg 8 Gm Inhaler) 2 puff INHALE RQ4H PRN PRN Reason: Shortness Of Breath Last Admin: 11/29/21 20:06 Dose: 2 puff Documented by: SAMARA Amlodipine Besylate (Amlodipine Besylate 10 Mg Tablet) 10 mg PO DAILY [facility]; Protocol Last Admin: 12/01/21 08:12 Dose: 10 mg Documented by: WILLI Ascorbic Acid (Ascorbic Acid 500 Mg Tablet) 500 mg PO BID [facility] Last Admin: 12/01/21 08:12 Dose: 500 mg Documented by: WILLI Aspirin (Aspirin Enteric Coated 81 Mg Tablet.) 81 mg PO BEDTIME [facility] Last Admin: 11/30/21 20:15 Dose: 81 mg Documented by: SARBJIT Atorvastatin Calcium (Atorvastatin Calcium 80 Mg Tablet) 80 mg PO BEDTIME [facility] Last Admin: 11/30/21 20:16 Dose: 80 mg Documented by: SARBJIT Calcitriol (Calcitriol 0.25 Mcg Capsule) 0.25 mcg PO Q2D [facility] Last Admin: 12/01/21 13:35 Dose: 0.25 mcg Documented by: WILLI Carvedilol (Carvedilol 6.25 Mg Tablet) 6.25 mg PO BID [facility]; Protocol Last Admin: 12/01/21 08:13 Dose: 6.25 mg Documented by: WILLI Cyclobenzaprine HCl (Cyclobenzaprine Hcl 5 Mg Tablet) 5 mg PO TID PRN PRN Reason: muscle spasm or pain Last Admin: 12/01/21 08:12 Dose: 5 mg Documented by: WILLI Dextrose (Dextrose 50 % 25 Gm/50 Ml Syringe) 25 gm IVPUSH Q15M PRN; Protocol PRN Reason: per Hypoglycemia Standing Ord. Docusate Sodium (Docusate Sodium 100 Mg Capsule) 100 mg PO BID [facility] Last Admin: 12/01/21 08:12 Dose: 100 mg Documented by: WILLI Ezetimibe (Ezetimibe 10 Mg Tablet) 10 mg PO DAILY [facility] Last Admin: 12/01/21 08:12 Dose: 10 mg Documented by: WILLI Ferrous Sulfate (Ferrous Sulfate 324 Mg Tablet.Dr) 324 mg PO BIDWM [facility] Last Admin: 12/01/21 16:39 Dose: 324 mg Documented by: SARBJIT Fluticasone Propionate (Fluticasone Propionate 100 Mcg Blst.W.Dev) 2 puff INHALE RBID [facility] Last Admin: 12/01/21 07:28 Dose: Not Given Documented by: MARY BETH Non-Admin Reason: pt unavail Furosemide (Furosemide 40 Mg Tablet) 120 mg PO BID [facility]; Protocol Last Admin: 12/01/21 08:13 Dose: 120 mg Documented by: WILLI Glucose (Glucose Gel 15 Gm Gel..Gram.) 15 gm PO Q15M PRN; Protocol PRN Reason: per Hypoglycemia Standing Ord. Guaifenesin/Dextromethorphan (Guaifenesin Dm 100/10/5 Ml 5 Ml Syrup) 5 ml PO Q4H PRN PRN Reason: Cough Last Admin: 12/01/21 08:17 Dose: 5 ml Documented by: WILLI Heparin Sodium (Porcine) (Heparin Sodium,Porcine 5,000 Unit/Ml Vial) 5,000 unit SUBCUT Q12H [facility] Last Admin: 12/01/21 13:35 Dose: 5,000 unit Documented by: WILLI Hydralazine HCl (Hydralazine Hcl 10 Mg Tablet) 10 mg PO BID [facility]; Protocol Last Admin: 12/01/21 08:12 Dose: 10 mg Documented by: WILLI Ceftriaxone Sodium 1 gm/ (Sodium Chloride) 50 mls @ 100 mls/hr IV Q24H [facility] Last Infusion: 12/01/21 11:56 Dose: 100 mls/hr Documented by: WILLI Azithromycin 500 mg/ Sodium (Chloride) 250 mls @ 125 mls/hr IV Q24H [facility] Last Admin: 12/01/21 16:38 Dose: 125 mls/hr Documented by: SARBJIT Insulin Glargine (Insulin Glargine,Hum.Rec.Anlog 100 Unit/Ml 10 Ml Vial) 28 unit SUBCUT BEDTIME [facility] Last Admin: 11/30/21 20:13 Dose: 28 unit Documented by: SARBJIT Insulin Human Lispro (Insulin Lispro 100 Unit/Ml 3 Ml Vial) 0 unit SUBCUT QIDACHS [facility]; Protocol Last Admin: 12/01/21 16:25 Dose: Not Given Documented by: SARBJIT Non-Admin Reason: No Insulin Coverage Insulin Human Lispro (Insulin Lispro 100 Unit/Ml 3 Ml Vial) 5 unit SUBCUT QIDACHS [facility] Last Admin: 12/01/21 16:37 Dose: Not Given Documented by: SARBJIT Non-Admin Reason: will hold per dr. Fortune Loratadine (Loratadine 10 Mg Tablet) 10 mg PO DAILY [facility] Last Admin: 12/01/21 08:12 Dose: 10 mg Documented by: WILLI Montelukast Sodium (Montelukast Sodium 10 Mg Tablet) 10 mg PO BEDTIME [facility] Last Admin: 11/30/21 20:15 Dose: 10 mg Documented by: SARBJIT Omeprazole (Omeprazole 20 Mg Collin.) 20 mg PO DAILY@0630 [facility] Last Admin: 12/01/21 06:11 Dose: 20 mg Documented by: NELSY Ondansetron HCl (Ondansetron Hcl 4 Mg/2 Ml Vial) 4 mg IVPUSH Q8H PRN PRN Reason: Nausea and Vomiting Oxycodone HCl (Oxycodone Hcl Immed Release 5 Mg Tablet) 5 mg PO Q6H PRN PRN Reason: Pain or spasm Last Admin: 12/01/21 11:14 Dose: 5 mg Documented by: WILLI Pharmacy Consult (Consult Rx Perform Med Rec) 1 each MISCELLANE ONCE PRN PRN Reason: Consult order Sertraline HCl (Sertraline Hcl 50 Mg Tablet) 150 mg PO DAILY [facility] Last Admin: 12/01/21 08:11 Dose: 150 mg Documented by: WILLI Sevelamer Carbonate (Sevelamer Carbonate Tablet 800 Mg Tablet) 800 mg PO TIDWM [facility] Last Admin: 12/01/21 16:39 Dose: 800 mg Documented by: SARBJIT Sodium Chloride (0.9 % Sodium Chloride Flush 3 Ml Syringe) 3 ml IVFLUSH QSHIFT [facility] Last Admin: 12/01/21 16:39 Dose: 3 ml Documented by: SARBJIT Vitamin D (Cholecalciferol (Vitamin D3) 25 Mcg Tablet) 25 mcg PO DAILY [facility] Last Admin: 12/01/21 08:13 Dose: 25 mcg Documented by: WILLI Labs CBC & Chem 7: 11/30/21 05:24 11/30/21 09:40 Labs: Laboratory Results - last 24 hr 11/30/21 11/30/21 12/01/21 17:21 20:00 07:05 POC Glucose 146 H 101 63 12/01/21 12/01/21 12/01/21 08:46 11:36 15:52 POC Glucose 120 H 80 131 H Assessment and Plan (1) Pneumonia: Status: Acute Plan 66 year old women admitted with? acute hypoxic respiratory failure secondary to community-acquired pneumonia Acute hypoxic respiratory failure secondary to CAP O2 sat improving, patient not on home oxygen contine Rocephin and azithromycin D3 blood cx no growth times 48 hours WBC trending down no overnight fevers Seen by Dr. Yu regarding right upper lobe mass, he feels it is related to volume overload since it is unlikely to develop before cm mass in under 5 month and there is no evidence of pulmonary nodule in that location on prior CT chest in June of [address] chest right after hemodialysis session, since patient seems to be stable recommend outpatient CT chest in next 3-4 weeks End-stage renal disease.? Dialysis Monday, and Monday, being followed by Nephrology Musculoskeletal lower back pain due to coughing reassured patient continue Tylenol and hot pack, recommend to ambulate Hypertension continue home medications Poorly controlled Diabetes Noted to have low fasting blood sugars will check hemoglobin A1c, will reduce dose of Lantus at bedtime, continue insulin sliding scale,ada diet CAD continue asa and statin DVT prophylaxis with heparin Full code Patient requires continued hospitalization for treatment of acute hypoxic respiratory failure secondary to community-acquired pneumonia, need IV antibiotics and continued monitoring of oxygen status Quality Stroke Does the patient have a stroke diagnosis?: No VTE Prior VTE?: No VTE Risk Level:: Medical - moderate - high VTE Device Contraindication: Treatment Not Indicated VTE Drug Contraindication: N/A - Med Ordered
[2021-12-01] MEDS: Fluticasone Propionate 100 MCG BLST.W.DEV 2 PUFF INHALE (19:55)
[2021-12-01 20:00] VITALS: BP 172/76; PULSE 64; RESP 17; TEMP 36.2; O2SAT 94
[2021-12-01 22:09] LABS: Glucose, Whole Blood 71 mg/dL (60-115)
[2021-12-01] MEDS: Atorvastatin Calcium 80 MG TABLET PO (22:21)
[2021-12-01] MEDS: Aspirin Enteric Coated 81 MG TABLET.DR PO (22:21)
[2021-12-01] MEDS: Montelukast Sodium 10 MG TABLET PO (22:23)
--- NOTE | 2021-12-01 22:24 | PC.NURSE ---
P BS 71 I snack given,Dr. Napier notified E will monitor
[2021-12-01 22:57] VITALS: BP 147/64; PULSE 70; RESP 17; TEMP 36.2; O2SAT 99
[2021-12-02] MEDS: 0.9 % Sodium Chloride Flush 3 ML SYRINGE IVFLUSH ×3 (00:49→20:09)
[2021-12-02] MEDS: Heparin Sodium,Porcine 5,000 UNIT/ML VIAL 5000 UNIT SUBCUT (02:43)
[2021-12-02 03:34] VITALS: BP 156/69; PULSE 68; RESP 17; TEMP 36.1; O2SAT 94
[2021-12-02] MEDS: oxyCODONE HCl Immed Release 5 MG TABLET PO ×2 (06:21→20:09)
[2021-12-02] MEDS: Omeprazole 20 MG CAPSULE.DR PO (06:21)
[2021-12-02 07:27] VITALS: BP 159/73; PULSE 66; RESP 18; TEMP 36.3; O2SAT 92
[2021-12-02 07:31] LABS: Anion Gap 20 (12-20); Blood Urea Nitrogen 56 mg/dL (9-16); Calcium 9.4 mg/dL (8.4-10.2); Carbon Dioxide 17 mmol/L (22-29); Chloride 100 mmol/L (96-108); Creatinine Clr Calc Pharmacy 5.5; Estimated Glomerular Filt Rate 5; Glucose Random 56 mg/dL (60-115); Potassium 5.2 mmol/L (3.3-5.1); Sodium 132 mmol/L (135-145)
[2021-12-02] MEDS: Fluticasone Propionate 100 MCG BLST.W.DEV 2 PUFF INHALE ×2 (07:35→19:52)
[2021-12-02 07:36] VITALS: PULSE 66; RESP 18; O2SAT 92
[2021-12-02 07:41] LABS: Glucose, Whole Blood 50 mg/dL (60-115)
[2021-12-02] MEDS: Furosemide 40 MG TABLET 120 MG PO ×2 (08:00→20:53)
[2021-12-02] MEDS: Docusate Sodium 100 MG CAPSULE PO ×2 (08:01→20:08)
[2021-12-02] MEDS: Ezetimibe 10 MG TABLET PO (08:01)
[2021-12-02] MEDS: Cholecalciferol (Vitamin D3) 25 MCG TABLET PO (08:01)
[2021-12-02] MEDS: Sertraline HCL 50 MG TABLET 150 MG PO (08:01)
[2021-12-02] MEDS: Ascorbic Acid 500 MG TABLET PO ×2 (08:01→20:08)
[2021-12-02] MEDS: Ferrous Sulfate 324 MG TABLET.DR PO (08:01)
[2021-12-02] MEDS: carvediloL 6.25 MG TABLET PO ×2 (08:01→20:53)
[2021-12-02] MEDS: amLODIPine Besylate 10 MG TABLET PO (08:01)
[2021-12-02] MEDS: hydrALAZINE HCl 10 MG TABLET PO ×2 (08:01→20:54)
[2021-12-02] MEDS: Sevelamer Carbonate Tablet 800 MG TABLET PO (08:01)
[2021-12-02] MEDS: Loratadine 10 MG TABLET PO (08:01)
[2021-12-02 08:07] LABS: Estimated Average Glucose 148 mg/dL; Hemoglobin A1c % 6.8 %
[2021-12-02 08:22] LABS: Glucose, Whole Blood 74 mg/dL (60-115)
[2021-12-02 11:08] VITALS: BP 129/62; PULSE 60; RESP 18; TEMP 36.9; O2SAT 94
--- NOTE | 2021-12-02 11:22 | P.PNNP_ITS ---
Subjective Subjective Date of Service: 12/02/21 Interval history: seen and examined complaining of lower back pain worse with coughing and deep breathing feels weak Physical Exam Vital Signs: Vital Signs: Last Vital Signs Temp 98.5 F 12/02/21 11:08 Pulse 60 12/02/21 11:08 Resp 18 12/02/21 11:08 BP 129/62 12/02/21 11:08 Pulse Ox 94 12/02/21 11:08 BMI result Body Mass Index 31.7 Const: General: no acute distress HEENT: Head: Yes normocephalic and Yes atraumatic Neck: Neck: Yes supple Resp: Auscultation: diminished lung sounds Cardio: Heart sounds: S1 normal heart sound present and S2 normal heart sound present GI: Palpation (GI): Soft to palpation and nontender Extrem: General: Yes no pedal edema Objective Data Labs CBC & Chem 7: 11/30/21 05:24 12/02/21 06:10 Labs: Laboratory Results - last 24 hr 12/01/21 12/01/21 12/01/21 11:36 15:52 22:04 Sodium Potassium Chloride Carbon Dioxide Anion Gap BUN Creatinine Estim Creat Clear Calc Estimated GFR POC Glucose 80 131 H 71 Random Glucose Estimat Average Glucose Hemoglobin A1c % Calcium 12/02/21 12/02/21 12/02/21 06:10 06:10 07:30 Sodium 132 L Potassium 5.2 H D Chloride 100 Carbon Dioxide 17 L Anion Gap 20 BUN 56 H D Creatinine 7.65 H* Estim Creat Clear Calc 5.5 Estimated GFR 5 POC Glucose 50 L* Random Glucose 56 L* Estimat Average Glucose 148 Hemoglobin A1c % 6.8 Calcium 9.4 12/02/21 08:02 Sodium Potassium Chloride Carbon Dioxide Anion Gap BUN Creatinine Estim Creat Clear Calc Estimated GFR POC Glucose 74 Random Glucose Estimat Average Glucose Hemoglobin A1c % Calcium Microbiology Microbiology Results: Microbiology 11/28/21 10:34 Blood - Venous Blood Culture - Preliminary No growth after 48 hours. 11/28/21 10:34 Blood - Venous Blood Culture - Preliminary No growth after 48 hours. 11/28/21 Unknown Urine clean catch - Urine cole top Urine Culture - Final Procedures Date of Service Date of Service: 12/02/21 Assessment & Plan Assessment and plan (1) End stage chronic kidney disease: Status: Acute (2) Pneumonia: Status: Acute Plan usually has HD at [place] dialysis unit on [facility] t-t-s admitted with PNA REC HD today volume optimization renal diet phosphate binders ELYSSA per protocol Time Spent With Patient Time: Total time spent is greater than 50% in coordination of care (as documented) at patient's floor/unit and/or counseling patient: Progress Note: Quality Stroke Does the patient have a stroke diagnosis?: No
[2021-12-02] MEDS: cefTRIAXone sodium 1 GM in 0.9 % Sodium Chloride 50 ML IV (11:34)
[2021-12-02 11:36] LABS: Glucose, Whole Blood 108 mg/dL (60-115)
--- NOTE | 2021-12-02 16:02 | HO.PM.IMPN ---
Subjective Subjective Date of Service: 12/02/21 Interval History: Complaining of persistent lower back pain, has not ambulated since admission, complaining of constipation, no nausea no vomiting, shortness of breath and cough has improved no overnight acute issues. Review of Systems [employer]APE[employer] no headache, no dizziness CVS no chest pain, no palpitation GI no nausea, no vomiting, positive constipation Review of Systems: Yes all other systems are reviewed and are negative Physical Exam Vital Signs: Vital Signs: Last Vital Signs Temp 98.5 F 12/02/21 11:08 Pulse 60 12/02/21 11:08 Resp 18 12/02/21 11:08 BP 129/62 12/02/21 11:08 Pulse Ox 94 12/02/21 11:08 BMI result Body Mass Index 31.7 Const: Other: General alert orie nted x3,no acute d istress.? Neck sup ple no JVD. CVS? r egular rate rhythm , Respiratory lung s clear to auscult ation, no respirat ory distress, no w heeze, no rhonchi. Gastrointestinal abdomen soft, nont daniel, bowel sound s audible Extremit ies no edema. Neur o nonfocal Skin no rash Psych approp riate affect Muscu loskeletal positiv e tenderness left lumbar paravertebr al muscles, no red ness, no swelling Objective Data Active Medications Acetaminophen (Acetaminophen 325 Mg Tablet) 650 mg PO Q6H PRN PRN Reason: Pain, Mild (Pain Scale 1-3) Last Admin: 11/30/21 14:28 Dose: 650 mg Documented by: WILLI Albuterol Sulfate (Albuterol Sulfate 90 Mcg 8 Gm Inhaler) 2 puff INHALE RQ4H PRN PRN Reason: Shortness Of Breath Last Admin: 11/29/21 20:06 Dose: 2 puff Documented by: SAMARA Amlodipine Besylate (Amlodipine Besylate 10 Mg Tablet) 10 mg PO DAILY [facility]; Protocol Last Admin: 12/02/21 08:01 Dose: 10 mg Documented by: ELIOT Ascorbic Acid (Ascorbic Acid 500 Mg Tablet) 500 mg PO BID [facility] Last Admin: 12/02/21 08:01 Dose: 500 mg Documented by: ELOIT Aspirin (Aspirin Enteric Coated 81 Mg Tablet.) 81 mg PO BEDTIME [facility] Last Admin: 12/01/21 22:21 Dose: 81 mg Documented by: SARBJIT Atorvastatin Calcium (Atorvastatin Calcium 80 Mg Tablet) 80 mg PO BEDTIME [facility] Last Admin: 12/01/21 22:21 Dose: 80 mg Documented by: SARBJIT Calcitriol (Calcitriol 0.25 Mcg Capsule) 0.25 mcg PO Q2D [facility] Last Admin: 12/01/21 13:35 Dose: 0.25 mcg Documented by: WILLI Carvedilol (Carvedilol 6.25 Mg Tablet) 6.25 mg PO BID [facility]; Protocol Last Admin: 12/02/21 08:01 Dose: 6.25 mg Documented by: ELIOT Cyclobenzaprine HCl (Cyclobenzaprine Hcl 5 Mg Tablet) 5 mg PO TID PRN PRN Reason: muscle spasm or pain Last Admin: 12/01/21 08:12 Dose: 5 mg Documented by: WILLI Dextrose (Dextrose 50 % 25 Gm/50 Ml Syringe) 25 gm IVPUSH Q15M PRN; Protocol PRN Reason: per Hypoglycemia Standing Ord. Docusate Sodium (Docusate Sodium 100 Mg Capsule) 100 mg PO BID [facility] Last Admin: 12/02/21 08:01 Dose: 100 mg Documented by: ELIOT Ezetimibe (Ezetimibe 10 Mg Tablet) 10 mg PO DAILY [facility] Last Admin: 12/02/21 08:01 Dose: 10 mg Documented by: ELIOT Ferrous Sulfate (Ferrous Sulfate 324 Mg Tablet.Dr) 324 mg PO BIDWM [facility] Last Admin: 12/02/21 08:01 Dose: 324 mg Documented by: ELIOT Fluticasone Propionate (Fluticasone Propionate 100 Mcg Blst.W.Dev) 2 puff INHALE RBID [facility] Last Admin: 12/02/21 07:35 Dose: 2 puff Documented by: HEYDI Furosemide (Furosemide 40 Mg Tablet) 120 mg PO BID [facility]; Protocol Last Admin: 12/02/21 08:00 Dose: 120 mg Documented by: ELIOT Glucose (Glucose Gel 15 Gm Gel..Gram.) 15 gm PO Q15M PRN; Protocol PRN Reason: per Hypoglycemia Standing Ord. Guaifenesin/Dextromethorphan (Guaifenesin Dm 100/10/5 Ml 5 Ml Syrup) 5 ml PO Q4H PRN PRN Reason: Cough Last Admin: 12/01/21 18:54 Dose: 5 ml Documented by: SARBJIT Heparin Sodium (Porcine) (Heparin Sodium,Porcine 5,000 Unit/Ml Vial) 5,000 unit SUBCUT Q12H [facility] Last Admin: 12/02/21 02:43 Dose: 5,000 unit Documented by: NELSY Hydralazine HCl (Hydralazine Hcl 10 Mg Tablet) 10 mg PO BID [facility]; Protocol Last Admin: 12/02/21 08:01 Dose: 10 mg Documented by: ELIOT Ceftriaxone Sodium 1 gm/ (Sodium Chloride) 50 mls @ 100 mls/hr IV Q24H [facility] Last Infusion: 12/02/21 12:07 Dose: 0 mls/hr Documented by: ELIOT Azithromycin 500 mg/ Sodium (Chloride) 250 mls @ 125 mls/hr IV Q24H [facility] Last Infusion: 12/01/21 18:46 Dose: 0 mls/hr Documented by: SARBJIT Insulin Glargine (Insulin Glargine,Hum.Rec.Anlog 100 Unit/Ml 10 Ml Vial) 10 unit SUBCUT BEDTIME [facility] Last Admin: 12/01/21 22:24 Dose: Not Given Documented by: SARBJIT Non-Admin Reason: low BS Insulin Human Lispro (Insulin Lispro 100 Unit/Ml 3 Ml Vial) 0 unit SUBCUT QIDACHS [facility]; Protocol Last Admin: 12/02/21 12:06 Dose: Not Given Documented by: ELIOT Non-Admin Reason: No Insulin Coverage Insulin Human Lispro (Insulin Lispro 100 Unit/Ml 3 Ml Vial) 5 unit SUBCUT QIDACHS [facility] Last Admin: 12/02/21 12:06 Dose: Not Given Documented by: ELIOT Non-Admin Reason: No Insulin Coverage Loratadine (Loratadine 10 Mg Tablet) 10 mg PO DAILY [facility] Last Admin: 12/02/21 08:01 Dose: 10 mg Documented by: ELIOT Montelukast Sodium (Montelukast Sodium 10 Mg Tablet) 10 mg PO BEDTIME [facility] Last Admin: 12/01/21 22:23 Dose: 10 mg Documented by: SARBJIT Omeprazole (Omeprazole 20 Mg Capsule.Dr) 20 mg PO DAILY@0630 [facility] Last Admin: 12/02/21 06:21 Dose: 20 mg Documented by: NELSY Ondansetron HCl (Ondansetron Hcl 4 Mg/2 Ml Vial) 4 mg IVPUSH Q8H PRN PRN Reason: Nausea and Vomiting Oxycodone HCl (Oxycodone Hcl Immed Release 5 Mg Tablet) 5 mg PO Q6H PRN PRN Reason: Pain or spasm Last Admin: 12/02/21 06:21 Dose: 5 mg Documented by: NELSY Pharmacy Consult (Consult Rx Perform Med Rec) 1 each MISCELLANE ONCE PRN PRN Reason: Consult order Polyethylene Glycol (Polyethylene Glycol 3350 17 Gm Powd.Pack) 17 gm PO DAILY [facility] Last Admin: 12/02/21 11:07 Dose: Not Given Documented by: ELIOT Non-Admin Reason: Patient Refused Sertraline HCl (Sertraline Hcl 50 Mg Tablet) 150 mg PO DAILY [facility] Last Admin: 12/02/21 08:01 Dose: 150 mg Documented by: ELIOT Sevelamer Carbonate (Sevelamer Carbonate Tablet 800 Mg Tablet) 800 mg PO TIDWM [facility] Last Admin: 12/02/21 12:07 Dose: Not Given Documented by: ELIOT Non-Admin Reason: dialysis Sodium Chloride (0.9 % Sodium Chloride Flush 3 Ml Syringe) 3 ml IVFLUSH QSHIFT [facility] Last Admin: 12/02/21 08:00 Dose: 3 ml Documented by: ELIOT Vitamin D (Cholecalciferol (Vitamin D3) 25 Mcg Tablet) 25 mcg PO DAILY [facility] Last Admin: 12/02/21 08:01 Dose: 25 mcg Documented by: ELIOT Labs CBC & Chem 7: 11/30/21 05:24 12/02/21 06:10 Labs: Laboratory Results - last 24 hr 12/01/21 12/01/21 12/02/21 15:52 22:04 06:10 Anion Gap 20 Estim Creat Clear Calc 5.5 Estimated GFR 5 POC Glucose 131 H 71 Random Glucose 56 L* Estimat Average Glucose Hemoglobin A1c % Calcium 9.4 12/02/21 12/02/21 12/02/21 06:10 07:30 08:02 Anion Gap Estim Creat Clear Calc Estimated GFR POC Glucose 50 L* 74 Random Glucose Estimat Average Glucose 148 Hemoglobin A1c % 6.8 Calcium 12/02/21 11:06 Anion Gap Estim Creat Clear Calc Estimated GFR POC Glucose 108 Random Glucose Estimat Average Glucose Hemoglobin A1c % Calcium Assessment and Plan (1) Pneumonia: Status: Acute Plan 66 year old women admitted with? acute hypoxic respiratory failure secondary to community-acquired pneumonia Acute hypoxic respiratory failure secondary to CAP Clinically improving with less shortness of breath and cough contine Rocephin and azithromycin D4, transition to by mouth antibiotic blood cx no growth times 48 hours WBC trending down no overnight fevers Seen by Dr. Yu regarding right upper lobe mass, he feels it is related to volume overload since it is unlikely to develop 4 cm mass in under 5 month and there is no evidence of pulmonary nodule in that location on prior CT chest in June of [address] chest right after hemodialysis session, since patient seems to be stable recommend outpatient CT chest in next 3-4 weeks after completion of antibiotic treatment End-stage renal disease.? Schedule for dialysis today continue Dialysis Monday, and Monday, being followed by Nephrology Musculoskeletal lower back pain due to coughing reassured patient continue Tylenol and hot pack, recommend to ambulate tid today Hypertension BP stable, continue home medications Electrolyte abnormality noted to have hypo/hyperkalemia, received potassium yesterday noted to have mildly elevated potassium of 5.2 today, scheduled for hemodialysis today, follow bmp Poorly controlled Diabetes Noted to have low fasting blood sugars 50 this a.m. on 10 units of Lantus, at home takes 28 units of Lantus , hemoglobin A1c 6.8 Will hold Lantus overnight, continue insulin sliding scale,ada diet Constipation will add stool softener CAD continue asa and statin DVT prophylaxis with heparin Full code Patient requires continued hospitalization for treatment of acute hypoxic respiratory failure secondary to community-acquired pneumonia, hypoglycemia need IV antibiotics and continued monitoring of blood sugar Quality Stroke Does the patient have a stroke diagnosis?: No VTE Prior VTE?: No VTE Risk Level:: Medical - moderate - high VTE Device Contraindication: Treatment Not Indicated VTE Drug Contraindication: N/A - Med Ordered
[2021-12-02 19:53] VITALS: PULSE 82; RESP 16; O2SAT 94
[2021-12-02 20:00] VITALS: BP 123/61; PULSE 84; RESP 18; TEMP 36.8; O2SAT 96
[2021-12-02] MEDS: Atorvastatin Calcium 80 MG TABLET PO (20:08)
[2021-12-02] MEDS: Azithromycin 500 MG in 0.9 % Sodium Chloride 250 ML 125 MG IV (20:08)
[2021-12-02] MEDS: Aspirin Enteric Coated 81 MG TABLET.DR PO (20:08)
[2021-12-02] MEDS: Montelukast Sodium 10 MG TABLET PO (20:09)
[2021-12-02] MEDS: ondansetron HCL 4 MG/2 ML VIAL IVPUSH (20:51)
[2021-12-02 21:29] LABS: Glucose, Whole Blood 86 mg/dL (60-115)
[2021-12-03] VITALS: BP 111/65; PULSE 77; RESP 18; TEMP 36.6; O2SAT 96
[2021-12-03] MEDS: Heparin Sodium,Porcine 5,000 UNIT/ML VIAL 5000 UNIT SUBCUT (02:02)
[2021-12-03 03:28] VITALS: BP 117/63; PULSE 75; RESP 18; TEMP 36.4; O2SAT 96
[2021-12-03] MEDS: oxyCODONE HCl Immed Release 5 MG TABLET PO (04:22)
[2021-12-03] MEDS: Omeprazole 20 MG CAPSULE.DR PO (05:54)
[2021-12-03 07:19] VITALS: BP 153/72; PULSE 73; RESP 16; TEMP 36.3; O2SAT 98
[2021-12-03 08:16] LABS: Glucose, Whole Blood 156 mg/dL (60-115)
[2021-12-03] MEDS: Fluticasone Propionate 100 MCG BLST.W.DEV 2 PUFF INHALE (08:17)
[2021-12-03 08:18] VITALS: PULSE 72; RESP 18; O2SAT 93
[2021-12-03] MEDS: polyethylene glycoL 3350 17 GM POWD.PACK PO (08:26)
[2021-12-03] MEDS: amLODIPine Besylate 10 MG TABLET PO (08:29)
[2021-12-03] MEDS: Sertraline HCL 50 MG TABLET 150 MG PO (08:29)
[2021-12-03] MEDS: Docusate Sodium 100 MG CAPSULE PO (08:30)
[2021-12-03] MEDS: Insulin Lispro 100 UNIT/ML 3 ML VIAL SUBCUT ×2 (08:30→08:31)
[2021-12-03] MEDS: Cholecalciferol (Vitamin D3) 25 MCG TABLET PO (08:30)
[2021-12-03] MEDS: Furosemide 40 MG TABLET 120 MG PO (08:30)
[2021-12-03] MEDS: Ferrous Sulfate 324 MG TABLET.DR PO (08:30)
[2021-12-03] MEDS: hydrALAZINE HCl 10 MG TABLET PO (08:30)
[2021-12-03] MEDS: Ascorbic Acid 500 MG TABLET PO (08:30)
[2021-12-03] MEDS: Sevelamer Carbonate Tablet 800 MG TABLET PO (08:30)
[2021-12-03] MEDS: Ezetimibe 10 MG TABLET PO (08:30)
[2021-12-03] MEDS: carvediloL 6.25 MG TABLET PO (08:30)
[2021-12-03] MEDS: Loratadine 10 MG TABLET PO (08:30)
[2021-12-03] MEDS: 0.9 % Sodium Chloride Flush 3 ML SYRINGE IVFLUSH (08:31)
--- NOTE | 2021-12-03 10:10 | PM.DS ---
DS: Providers Provider Date of Service: 12/03/21 Date of admission: 11/28/21 13:30 Primary care physician: Patricia Ingram MD Consults: 11/28/21 13:33 Consult to Nephrology Routine Consulting Provider: Feliciano Baldwin Reason for consultation: dialysis T,TH,SAT Has provider been notified: No 11/28/21 14:20 Consult to Pulmonology Routine Consulting Provider: Richi Saba Reason for consultation: ? right upper lobe mass Has provider been notified: No DS: Diagnosis Discharge Diagnosis (1) Pneumonia: Status: Acute DS: Summary Hospital Course Hospital Course: Chief Complaint: Sob 66 year old women with hx of CAD, CABG , DM , ESRD on dialysis, presenting with 4 days of shortness of breath and left sided flank/chest pain without fever, chills, nausea, vomiting, diarrhea, sick contacts. She received a duoneb tx as per EMS. She was given Rocephin, mag, tylenol and robitussin in the ED. Her vital signs have been stable although her oxygen sat was 88%.? she was noted a mildly elevated white blood cell count 12.1, creatinine 5.81, chest CT showing left lower lobe consolidation with underlying small pleural effusion and ill-defined solid mass /consolidation to the right upper lobe.? She stable at this time with 2 L oxygen through nasal cannula.? She will be admitted for further management and treatment of acute hypoxic respiratory failure secondary to community-acquired pneumonia. Hospital course: 66 year old women admitted with? acute hypoxic respiratory failure secondary to community-acquired pneumonia, patient treated with IV Rocephin and azithromycin, blood culture showed no growth WBC trended down patient had no recurrent fevers or chills, patient evaluated by terrazzo finisher Dr. Yu regarding right upper lobe mass, he feels it is related to volume overload since it is unlikely to develop 4 cm mass in under 5 month and there is no evidence of pulmonary nodule in that location on prior CT chest in June of [address] chest right after hemodialysis session, since patient seems to be stable recommend outpatient CT chest in next 3-4 weeks after completion of antibiotic treatment. Patient is being discharged home on 2 more days of by mouth antibiotics, hypoxia resolved. End-stage renal disease.? continue Dialysis Monday, and Saturday, being followed by Nephrology Hypertension BP stable, continue home medications. Electrolyte abnormality noted to have hypo/hyperkalemia, discussed with Nephrology will be addressed with hemodialysis. Diabetes mellitus patient noted to have low blood sugars at a.m. since was receiving 28 units of Lantus at bedtime as per patient she was taking Lantus 7 units at night with blood sugar greater than 100 therefore dose of Lantus has been reduced to 6 units at bedtime recommend to follow blood sugars closely CAD noted to have no chest pain continue asa and statin. Time Spent with Patient Time attestation: Total time spent providing and/or coordinating discharge services: Discharge coordination time: Greater than 30 minutes Quality: Safe Use of Opioids Does Pt have an Active Cancer Diagnosis on the Problem List?: No Quality: Stroke Does the patient have a stroke diagnosis?: No Physical Exam Vital Signs: Vital Signs: Last Vital Signs Temp 97.4 F 12/03/21 07:19 Pulse 72 12/03/21 08:18 Resp 18 12/03/21 08:18 BP 153/72 H 12/03/21 07:19 Pulse Ox 98 12/03/21 07:19 BMI result Body Mass Index 31.7 Const: Other: General alert orie nted x3,no acute d istress.? Neck sup ple no JVD. CVS? r egular rate rhythm , Respiratory lung s clear to auscult ation, no respirat ory distress, no w heeze, no rhonchi. Gastrointestinal abdomen soft, nont daniel, bowel sound s audible Extremit ies no edema. Neur o nonfocal Skin no rash Psych approp riate affect DS: Data Data Completed and Pending Completed studies during hospitalization [Text1]: Procedures Insertion of Infusion Device into Superior Vena Cava, Percutaneous Approach (07/11/21) Insertion of Tunneled Vascular Access Device into Chest Subcutaneous Tissue and Fascia, Percutaneous Approach (07/11/21) Performance of Urinary Filtration, Intermittent, Less than 6 Hours Per Day (07/11/21) Labs on day of discharge: Laboratory Results - last 24 hr 12/02/21 12/02/21 12/03/21 11:06 20:17 07:17 POC Glucose 108 86 156 H Preliminary micro results at discharge 11/28/21 10:34 Blood Culture - Preliminary Blood - Venous No growth after 48 hours. 11/28/21 10:34 Blood Culture - Preliminary Blood - Venous No growth after 48 hours. Discharge Plan Discharge Patient Disposition: Home Health Service Discharge Diagnosis: Acute hypoxic respiratory failure Pneumonia Hyperkalemia End-stage renal disease on hemodialysis Referrals: Patricia Ingram MD [Primary Care Provider] - 1 Week Discharge Medications: New cefuroxime axetil 500 mg tablet 500 mg PO Q12H Qty: 4 0RF Continued carvedilol 6.25 mg tablet 6.25 mg PO BID 90 Days Qty: 180 3RF Rx Instructions: must administer with a meal/food ezetimibe [Zetia] 10 mg tablet 10 mg PO DAILY Qty: 30 5RF ascorbic acid (vitamin C) [Vitamin C] 500 mg tablet 1 tab PO BID 0RF montelukast 10 mg tablet 1 tab PO BEDTIME 0RF calcitriol 0.25 mcg capsule 1 cap PO Q2D 0RF docusate sodium 100 mg capsule 1 cap PO BID 0RF albuterol sulfate [ProAir HFA] 90 mcg/actuation Hfa Aerosol Inhaler 2 puff INHALATION Q4-6H PRN (Reason: Shortness Of Breath) 0RF Flovent HFA 110 mcg/actuation HFA aerosol inhaler 2 puff inhalation BID 0RF cholecalciferol (vitamin D3) 25 mcg (1,000 unit) tablet 1 tab PO DAILY 0RF amlodipine 10 mg tablet 10 mg PO DAILY 0RF oxycodone 5 mg tablet 5 mg PO Q6H PRN (Reason: Pain or spasm) Qty: 14 0RF Rx Instructions: Patient may request partial refill cyclobenzaprine 5 mg tablet 5 mg PO TID PRN (Reason: muscle spasm or pain) Qty: 14 0RF aspirin 81 mg tablet,delayed release (DR/EC) 81 mg PO BEDTIME 0RF atorvastatin 80 mg tablet 80 mg PO BEDTIME 0RF hydralazine 10 mg tablet 10 mg PO BID 0RF ferrous sulfate 325 mg (65 mg iron) tablet 325 mg PO BIDWM 0RF pantoprazole 40 mg tablet,delayed release (DR/EC) 40 mg PO DAILY@0630 0RF sertraline 100 mg tablet 150 mg PO DAILY 0RF furosemide 40 mg tablet 120 mg PO BID 0RF sevelamer carbonate 800 mg tablet 800 mg PO DIRECTED 0RF Rx Instructions: with meals and snacks cetirizine 5 mg tablet 5 mg PO DAILY 0RF Changed Lantus Solostar U-100 Insulin 100 unit/mL (3 mL) insulin pen 6 unit subcut BEDTIME Qty: 0 0RF Rx Instructions: Patient states that if her blood sugar is greater than 100 she takes 7 units and if her blood sugar is less than 100 she takes no insulin. Discharge Orders: Discharge Order (Routine); Ordered 12/03/21 Ordered By: Romina Fortune Diet: diabetic diet Activity on Discharge: As tolerated Stand Alone Forms: Patient Portal Discharge page Care Plan Goals: Hypoxia due to pneumonia resolved, continue 2 more days of Ceftin to finish 7 day course of antibiotics, noted to have right upper lobe ill-defined solid mass likely component of fluid overload, recommend CT chest after hemodialysis in 2-3 weeks for follow-up on right upper lobe abnormality. Noted to have low blood sugars in the morning therefore dose of Lantus reduced to 6 units at bedtime, follow blood sugars closely and adjust dose of Lantus, her med rec showed that she is on Lantus 28 units at home. Health Concerns: End-stage renal disease continue hemodialysis and all other medications as per Plan of Treatment: Outpatient follow-up with primary care physician and Nephrology for continued hemodialysis Assessment: As per discharge summary
--- NOTE | 2021-12-03 12:09 | MHC.CM.PN ---
PT MEDICALLY CLEARED FOR D/C HOME TODAY, PT ACTIVE W/[facility] FOR SN AND DAILY SKIN FORMER, FAMILY FOR [facility]
== END 2021-12-03 11:41 | disposition home health service (06) | DRG 193 ==
LOC: HO.ED 11:04 → HO.EDOVER 13:39 → HO.S3 16:48
PROVIDERS: Physician Assistant Medical; Admitting Provider Nurse Practitioner Acute Care; Emergency Provider Emergency Medicine; PCP Family Medicine; Visit Provider Hospitalist
DX: J18.9 Pneumonia, unspecified organism (principal); J96.01 Acute respiratory failure with hypoxia; N18.6 End stage renal disease; J91.8 Pleural effusion in other conditions classified elsewhere; I12.0 Hypertensive chronic kidney disease with stage 5 chronic kidney disease or end stage renal disease; E11.22 Type 2 diabetes mellitus with diabetic chronic kidney disease; E11.65 Type 2 diabetes mellitus with hyperglycemia; E87.5 Hyperkalemia; M54.59 Other low back pain; G47.33 Obstructive sleep apnea (adult) (pediatric); E87.70 Fluid overload, unspecified; E11.649 Type 2 diabetes mellitus with hypoglycemia without coma; K59.00 Constipation, unspecified; I25.10 Atherosclerotic heart disease of native coronary artery without angina pectoris; Z95.1 Presence of aortocoronary bypass graft; Z20.822 Contact with and (suspected) exposure to COVID-19; Z79.4 Long term (current) use of insulin; Z79.82 Long term (current) use of aspirin; Z79.899 Other long term (current) drug therapy
CPT/HCPCS: 36415; 71250; 80048; 80053; 81001; 82947; 83036; 83605; 83735; 83880; 84484; 85025; 85027; 85610; 87040; 87086; 87502; 87635; 90999; 93005; 94640; 96361; 96365; 96366; 96375; 99284; 99291; J0456; J0696; J2405; J2930; J3475

== ENCOUNTER 2021-12-20 09:36 | Outpatient (REF) | payer OTHER, SELFPAY ==
--- NOTE | ~2021-12-20 | CT_ITS ---
EXAMINATION: CT CHEST WITHOUT CONTRAST CLINICAL INFORMATION: Abnormal lung findings. COMPARISON: CT chest 11/28/2021. TECHNIQUE: Multidetector volumetric CT imaging of the chest was done. Axial MIP volume rendering provided. Sagittal and coronal reformatted images were obtained. This CT examination was performed using dose optimization techniques as appropriate, variously including the following: *Automated exposure control *Adjustment of mA and/or kV according to patient size (this includes techniques or standardized protocols for targeted exams where dose is matched to indication/reason for exam; i.e. extremities or head) *Use of iterative reconstruction technique DLP: 145 mGy-cm FINDINGS: HEAVY TRUCK TECHNICIAN: Well-inflated lungs with a right central venous dialysis catheter with the tip in the right atrium. LUNGS: The lungs are expanded with significant improvement in the left lower lobe consolidation with residual band-like atelectasis seen. The right upper lobe nodule has significantly improved as well. It measures 7 mm on the previous exam on axial image 197/8. Previously it measured 2.1 x 1.3 cm. No additional nodules seen. There is mild thickening of the left major fissure. MEDIASTINUM: Heart size is normal. There are coronary artery calcifications present. There is a dialysis catheter in the right atrium. No pericardial effusion seen. No abnormal size mediastinal or hilar lymph nodes seen. PLEURA: There is left basilar and posterior pleural thickening and/or tiny effusion. AXILLA: No abnormal axillary lymph nodes seen. The chest wall is unremarkable. UPPER ABDOMEN: Unremarkable. There is no aggressive lytic or sclerotic process seen. There are median sternotomy sutures from previous intervention. CT/CT chest wo con IMPRESSION: Significant improvement in the left lower lobe consolidation with residual band-like atelectasis and posterior and basilar pleural thickening and minimal thickening of left major fissure and/or effusion. The right upper lobe mass/consolidation has significantly improved as described above. No new pulmonary nodules or mass seen. Fleischner guidelines were followed.
== END 2021-12-20 09:37 | disposition home or self-care (01) ==
LOC: HO.CT 09:36
PROVIDERS: PCP Family Medicine; Visit Provider Family Medicine
DX: R91.8 Other nonspecific abnormal finding of lung field (principal); R76.12 Nonspecific reaction to cell mediated immunity measurement of gamma interferon antigen response without active tuberculosis
CPT/HCPCS: 71250

== ENCOUNTER 2022-03-04 07:18 | Outpatient (REF) | payer OTHER, SELFPAY ==
--- NOTE | ~2022-03-04 | XR_ITS ---
EXAMINATION: XR SHOULDER, RIGHT CLINICAL INFORMATION: Pain. COMPARISON: Radiographs dated 01/05/2017. TECHNIQUE: AP external rotation, Grashey, scapular Y, and axillary views of the right shoulder. FINDINGS: Bony alignment and mineralization are normal. The glenohumeral joint is intact. There is a subchondral cyst within the glenoid. The acromioclavicular and coracoclavicular intervals are normal. There is a small distal acromial undersurface osteophyte, and there is mild cortical irregularity of the greater tuberosity of the proximal right humerus. No fracture or dislocation is seen. There is no abnormal soft tissue calcification or foreign body. No left pneumothorax is seen. A right internal jugular Port-A-Cath device is seen. There are intact median sternotomy wires. XR/XR shoulder LT min 2V IMPRESSION: 1. No fracture or dislocation is seen. 2. There is very mild osteoarthritic change of the right acromioclavicular joint. 3. Findings suggest possible right rotator cuff impingement. EXAMINATION: XR SHOULDER, LEFT CLINICAL INFORMATION: Pain. COMPARISON: Radiographs dated 12/09/2010. TECHNIQUE: AP external rotation, Grashey, scapular Y, and axillary views of the left shoulder. FINDINGS: Bony alignment and mineralization are normal. The glenohumeral joint is intact and shows mild osteoarthritic change. The acromioclavicular and coracoclavicular intervals are normal. There is moderate osteoarthritic change of the acromioclavicular joint. There is a distal acromial undersurface osteophyte, and there is calcific tendinitis of the left rotator cuff insertion. No fracture or dislocation is seen. There is no foreign body. No left pneumothorax is seen. IMPRESSION: 1. No fracture or dislocation is seen. 2. There is mild osteoarthritic change of the left glenohumeral joint, and moderate osteoarthritic change is seen of the left acromioclavicular joint. 3. There is calcific tendinitis of the left rotator cuff.
--- NOTE | ~2022-03-04 | XR_ITS ---
EXAMINATION: XR SHOULDER, RIGHT CLINICAL INFORMATION: Pain. COMPARISON: Radiographs dated 01/05/2017. TECHNIQUE: AP external rotation, Grashey, scapular Y, and axillary views of the right shoulder. FINDINGS: Bony alignment and mineralization are normal. The glenohumeral joint is intact. There is a subchondral cyst within the glenoid. The acromioclavicular and coracoclavicular intervals are normal. There is a small distal acromial undersurface osteophyte, and there is mild cortical irregularity of the greater tuberosity of the proximal right humerus. No fracture or dislocation is seen. There is no abnormal soft tissue calcification or foreign body. No left pneumothorax is seen. A right internal jugular Port-A-Cath device is seen. There are intact median sternotomy wires. XR/XR shoulder RT min 2V IMPRESSION: 1. No fracture or dislocation is seen. 2. There is very mild osteoarthritic change of the right acromioclavicular joint. 3. Findings suggest possible right rotator cuff impingement. EXAMINATION: XR SHOULDER, LEFT CLINICAL INFORMATION: Pain. COMPARISON: Radiographs dated 12/09/2010. TECHNIQUE: AP external rotation, Grashey, scapular Y, and axillary views of the left shoulder. FINDINGS: Bony alignment and mineralization are normal. The glenohumeral joint is intact and shows mild osteoarthritic change. The acromioclavicular and coracoclavicular intervals are normal. There is moderate osteoarthritic change of the acromioclavicular joint. There is a distal acromial undersurface osteophyte, and there is calcific tendinitis of the left rotator cuff insertion. No fracture or dislocation is seen. There is no foreign body. No left pneumothorax is seen. IMPRESSION: 1. No fracture or dislocation is seen. 2. There is mild osteoarthritic change of the left glenohumeral joint, and moderate osteoarthritic change is seen of the left acromioclavicular joint. 3. There is calcific tendinitis of the left rotator cuff.
== END 2022-03-04 07:19 | disposition home or self-care (01) ==
LOC: HO.HOSX 07:18
PROVIDERS: Visit Provider Physician Assistant
DX: M25.512 Pain in left shoulder (principal); M19.012 Primary osteoarthritis, left shoulder; M25.511 Pain in right shoulder
CPT/HCPCS: 20610; 73030; 99202; J1020

== ENCOUNTER → 2022-04-13 08:26 | Outpatient (BNVA) | payer OTHER, SELFPAY | PROVIDERS: Visit Provider Obstetrics & Gynecology | DX: B97.7 Papillomavirus as the cause of diseases classified elsewhere (principal) | CPT/HCPCS: 99202 ==

== ENCOUNTER → 2022-05-02 14:10 | Outpatient (BNVA) | payer OTHER, SELFPAY | PROVIDERS: Visit Provider Internal Medicine | DX: I25.10 Atherosclerotic heart disease of native coronary artery without angina pectoris (principal); E78.5 Hyperlipidemia, unspecified; E11.8 Type 2 diabetes mellitus with unspecified complications; E11.22 Type 2 diabetes mellitus with diabetic chronic kidney disease; I12.9 Hypertensive chronic kidney disease with stage 1 through stage 4 chronic kidney disease, or unspecified chronic kidney disease; N18.6 End stage renal disease; Z99.2 Dependence on renal dialysis | CPT/HCPCS: 99212 ==

== ENCOUNTER 2022-05-11 08:32 | Outpatient (REF) | payer OTHER, SELFPAY ==
--- NOTE | ~2022-05-11 | XR_ITS ---
EXAMINATION: XR CHEST CLINICAL INFORMATION: Pneumonia COMPARISON: Previous chest x-ray most recent October [address] most recent November 2021 TECHNIQUE: 2 views of the chest were obtained. FINDINGS: The cardiac and mediastinal contours are stable. There are post-CABG changes. There is a right internal jugular dialysis catheter with tip projecting over the cavoatrial junction. The lungs are clear. There is no pleural effusion or pneumothorax. There are degenerative changes of the spine. XR/XR chest 2V IMPRESSION: Unremarkable examination.
== END 2022-05-11 08:33 | disposition home or self-care (01) ==
LOC: HO.XRAY 08:32
PROVIDERS: PCP Family Medicine; Visit Provider Internal Medicine
DX: J18.9 Pneumonia, unspecified organism (principal)
CPT/HCPCS: 71046

== ENCOUNTER 2022-06-01 09:02 | Outpatient (REF) | payer OTHER, SELFPAY | END 2022-06-01 09:03 | disposition home or self-care (01) | LOC: HO.LNP 09:02 | PROVIDERS: Visit Provider Obstetrics & Gynecology | DX: A63.0 Anogenital (venereal) warts (principal); B97.7 Papillomavirus as the cause of diseases classified elsewhere | CPT/HCPCS: 57456; 88305 ==

== ENCOUNTER → 2022-06-21 10:19 | Outpatient (BNVA) | payer OTHER, SELFPAY | PROVIDERS: Visit Provider Obstetrics & Gynecology | DX: B97.7 Papillomavirus as the cause of diseases classified elsewhere (principal) | CPT/HCPCS: 99212 ==

== ENCOUNTER 2022-11-23 09:35 | Outpatient (REF) | payer OTHER, SELFPAY | END 2022-11-23 09:36 | disposition home or self-care (01) | LOC: HO.XRAY 09:35 | PROVIDERS: PCP Family Medicine; Visit Provider Internal Medicine | DX: J45.909 Unspecified asthma, uncomplicated (principal); J18.9 Pneumonia, unspecified organism; N18.6 End stage renal disease; Z99.2 Dependence on renal dialysis | CPT/HCPCS: 99202 ==

== ENCOUNTER 2022-11-28 08:36 | Outpatient (REF) | payer OTHER, SELFPAY ==
--- NOTE | ~2022-11-28 | XR_ITS ---
EXAMINATION: XR CHEST 2 VIEWS CLINICAL INFORMATION: Question pneumonia. COMPARISON: Chest radiographs dated 05/11/2022. TECHNIQUE: Frontal and lateral views of the chest were obtained. FINDINGS: The heart, great vessels, pulmonary vasculature and mediastinum are normal. There are stable post CABG changes. The lungs show no focal infiltrate, effusion or pneumothorax. There is no acute osseous abnormality. A right internal jugular hemodialysis access catheter seen, with tip situated within the cephalad right atrium. XR/XR chest 2V IMPRESSION: No active cardiopulmonary disease.
== END 2022-11-28 08:37 | disposition home or self-care (01) ==
LOC: HO.XRAY 08:36
PROVIDERS: PCP Family Medicine; Visit Provider Internal Medicine
DX: J18.9 Pneumonia, unspecified organism (principal); J45.909 Unspecified asthma, uncomplicated; N18.6 End stage renal disease; Z99.2 Dependence on renal dialysis
CPT/HCPCS: 71046

== ENCOUNTER 2022-12-07 12:22 | Emergency (ER) | payer OTHER, SELFPAY ==
[2022-12-07 12:26] VITALS: BP 130/50; BP 150/53; PULSE 50; PULSE 56; RESP 18; TEMP 36.6; O2SAT 100; O2SAT 97; BMI 29.4
--- NOTE | 2022-12-07 13:12 | ECG_ITS ---
Test Reason : PALPATATIONS Blood Pressure : / mmHG Vent. Rate : 058 BPM Atrial Rate : 058 BPM P-R Int : 168 ms QRS Dur : 090 ms QT Int : 442 ms P-R-T Axes : 052 022 032 degrees QTc Int : 433 ms Sinus bradycardia Septal infarct (cited on or before 28-NOV-2017) Abnormal ECG When compared with ECG of 28-NOV-2021 09:52, No significant change was found Referred By: Jennifer Li Electronically Signed By:JOSH STEWART
[2022-12-07 13:54] LABS: MANUAL DIFF FLAG NO
[2022-12-07 14:00] LABS: Basophils Percent Auto 0.4 % (0-2); Eosinophils Absolute Auto 0.1 X10*3/uL (0.0-0.4); Eosinophils Percent Auto 1.4 % (0-4); Hematocrit 28.6 % (37.0-47.0); Hemoglobin 9.5 g/dl (12.0-16.0); Imm Gran Abs Auto 0.02 X10*3/uL (0.00-0.03); Imm Gran Pct Auto 0.4 % (0.0-0.4); Lymphocytes Absolute Auto 1.5 X10*3/uL (1.2-4.9); Lymphocytes Percent Auto 29.4 % (20-40); Mean Corpuscular HGB Conc 33.2 g/dl (31.0-35.0); Mean Corpuscular Hemoglobin 30.5 pg (27.0-33.0); Mean Platelet Volume 10.1 fL (9.4-12.3); Monocytes Absolute Auto 0.4 X10*3/uL (0.1-1.2); Neutrophils Absolute Auto 3.2 x10*3/uL (2.0-8.3); Neutrophils Percent Auto 61.4 % (45-73); Platelet Count 188 X10*3/uL (160-400); Red Blood Count 3.11 X10*6/uL (4.20-5.50); White Blood Count 5.1 X10*3/uL (4.8-10.8)
[2022-12-07 14:27] LABS: Troponin-I High Sensitivity 10.3 ng/L (<3.5-17.0)
--- NOTE | 2022-12-07 14:31 | ED.ARRPALP ---
HPI - Arrhythmia/Palpitations General Chief Complaint: Arrhythmia/Palpitations Stated Complaint: Weakness, heart palpitations Time Seen by Provider: 12/07/22 14:04 Source: patient Mode of arrival: EMS Limitations: no limitations History of Present Illness HPI narrative: Patient comes to the emergency room from an adult daycare program. Patient states that she was walking, states that her blood pressure dropped. Patient states she does not know the numbers. Patient was taken to the nurse's office, and 911 was called. Patient states that she had some chest pressure, no chest pain no shortness of breath. Patient said that she had palpitations. At this time, patient states that she feels better. Patient denies syncope/near syncopal episodes. Related Data Home Medications Medication Instructions Recorded Confirmed ferrous sulfate 325 mg (65 mg 325 mg PO BIDWM 06/10/20 05/02/22 iron) tablet hydralazine 10 mg tablet 10 mg PO BID 06/10/20 05/02/22 pantoprazole 40 mg tablet,delayed 40 mg PO DAILY@0630 06/10/20 05/02/22 release sertraline 100 mg tablet 150 mg PO DAILY 06/10/20 05/02/22 ascorbic acid (vitamin C) 500 mg 1 tab PO BID 12/03/20 05/02/22 tablet (Vitamin C) montelukast 10 mg tablet 1 tab PO BEDTIME 12/03/20 05/02/22 furosemide 40 mg tablet 120 mg PO BID 05/06/21 05/02/22 albuterol sulfate 90 mcg/actuation 2 puff inhalation Q4-6H PRN 07/11/21 05/02/22 aerosol inhaler (ProAir HFA) Shortness Of Breath cholecalciferol (vitamin D3) 25 1 tab PO DAILY 07/11/21 05/02/22 mcg (1,000 unit) tablet fluticasone propionate 110 2 puff inhalation BID 07/11/21 05/02/22 mcg/actuation HFA aerosol inhaler (Flovent HFA) cetirizine 5 mg tablet 5 mg PO DAILY 10/27/21 05/02/22 sevelamer carbonate 800 mg tablet 800 mg PO DIRECTED 10/27/21 05/02/22 cholecalciferol (vitamin D3) 25 25 mcg PO DAILY 11/23/22 mcg (1,000 unit) capsule Previous Rx's Medication Instructions Recorded insulin glargine 100 unit/mL (3 6 unit (0.06 mL) subcut BEDTIME #0 12/03/21 mL) subcutaneous pen (Lantus mL Solostar U-100 Insulin) ezetimibe 10 mg tablet 10 mg PO QAM #90 tabs 03/21/22 carvedilol 6.25 mg tablet 6.25 mg PO BID 90 days #180 tabs 03/25/22 atorvastatin 80 mg tablet 80 mg PO BEDTIME #90 tabs 08/17/22 aspirin 81 mg tablet,delayed 81 mg PO BEDTIME 90 days #90 tabs 11/08/22 release alirocumab 75 mg/mL subcutaneous 75 mg subcut Q2W #2 mL 12/05/22 pen injector (Praluent Pen) amlodipine 10 mg tablet 10 mg PO DAILY 90 days #90 tabs 12/06/22 Allergies Allergy/AdvReac Type Severity Reaction Status Date / Time No Known Allergies Allergy Verified 11/23/22 10:23 Review of Systems Review of Systems: Constitutional : No Weight loss, No Fever, No Chills, No Night Sweats, No Fatigue, No Malaise ENT/Mouth : No Hearing loss, No Ear Pain, No Nasal Congestion, No Sinus Pain, No Hoarseness, No sore throat, No Rhinorrhea, No Swallowing Difficulty Eyes: No Eye Pain, No Swelling, No Redness, No Foreign Body, No Discharge, No Vision Changes Cardiovascular : No Chest Pain, complaining of chest heaviness, No SOB, No Dyspnea on Exertion, No Orthopnea, No Edema, No Palpitations Respiratory : No Cough, No Sputum, No Wheezing, No Smoke Exposure, No Dyspnea Gastrointestinal : No Nausea, No Vomiting, No Diarrhea, No Constipation, No abdominal Pain, No Hematochezia, No Melena Genitourinary : no irregular bleeding, No Dysuria, No Urinary Frequency, No Hematuria, No Urinary Incontinence, No Urgency, No Flank Pain, No Urinary Flow Changes, No Hesitancy Musculoskeletal : No joint pain, No Myalgias, No Joint Swelling Skin : No Skin Lesions, No rash Neuro : No Weakness, No Numbness, No Paresthesias, No Loss of Consciousness, No Dizziness, No Headache Psych : No Anxiety/Panic, No Depression, No SI/HI/AH/VH, No Social Issues, Heme/Lymph: No Bruising, No Bleeding,No Lymphadenopathy Endocrine : No Polyuria, No Polydipsia, No Temperature Intolerance [facility] Past Medical History Medical History Asthma Atherosclerotic cardiovascular disease Chronic kidney disease DJD (degenerative joint disease) Edema End stage chronic kidney disease Essential hypertension Hemorrhoids 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 Hypercalcemia SHELIA (obstructive sleep apnea) Other and unspecified hyperlipidemia Type 2 diabetes mellitus with unspecified complications Surgical History H/O angioplasty H/O colonoscopy History of coronary artery bypass graft (~2018) History of tubal ligation Family History Family History Father Cardiovascular disease Hypertension Mother Cardiovascular disease Hypertension Social History Social History Household Members: Other Household Members Other:: son Housing: Apartment Do you presently have visiting nurse or other home services: Yes Alcohol intake: never Patient Tobacco Use Status: Never used Tobacco Advance Directives: Yes Advance Directives on File: Yes Advance Directives Date on File: 12/03/20 service: No 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al status: disabled Physical Exam Vital Signs: Vital Signs: Last Vital Signs Temp 98 F 12/07/22 12:26 Pulse 63 12/07/22 14:43 Resp 18 12/07/22 12:26 BP 155/60 H 12/07/22 14:43 Pulse Ox 100 12/07/22 12:26 O2 Del Method Room Air 12/07/22 12:26 BMI result Body Mass Index 29.4 Const: Other: Appearance: Alert. Oriented X3. No acute distress. Eyes: Pupils equal, round and reactive to light. ENT: Pharynx normal. Neck: Normal inspection. Neck supple. No lymph nodes noted. No crepitus CVS: Normal heart rate and rhythm. Pulses normal. Normal S1 and S2 Respiratory: No respiratory distress. Breath sounds normal. No Wheezing. No rales Abdomen: Soft and nontender. No rigidity. No distention. Skin: Skin warm and dry. Normal skin color. Normal skin turgor. Extremities: No lower extremity edema. No Lacerations. No Rash Neuro: Oriented X 3. No motor deficit. No sensory deficit. Moving all extremities. No slurred speech. CN 2 through 12 grossly intact Psych: calm, cooperative, normal affect Medical Decision Making Medical Decision Making MDM Narrative: -labs and imaging pending. At this time, patient states that she feels much better, denies chest pain or shortness of breath. Denies palpitations. -orthostatic vitals are negative, patient was not lightheaded. -troponin negative -EKG my interpretation: Sinus bradycardia, heart rate 58, no ST segment depression or elevations, no T-wave inversions, QTC 433 -was walked around the emergency room with a walker that she usually uses at home, patient did well and feels fine - Lab Data 12/07/22 13:48 12/07/22 13:48 Labs: Lab Results 12/07/22 12/07/22 12/07/22 Range/Units 10:46 13:48 13:48 WBC 5.1 (4.8-10.8) X10*3/uL RBC 3.11 L (4.20-5.50) X10*6/uL Hgb 9.5 L (12.0-16.0) g/dl Hct 28.6 L (37.0-47.0) % MCV 92.0 (80.0-98.0) fL MCH 30.5 (27.0-33.0) pg MCHC 33.2 (31.0-35.0) g/dl RDW 14.0 (11.0-16.0) % Plt Count 188 (160-400) X10*3/uL MPV 10.1 (9.4-12.3) fL Immature Gran % (Auto) 0.4 (0.0-0.4) % Neut % (Auto) 61.4 (45-73) % Lymph % (Auto) 29.4 (20-40) % [place] % (Auto) 7.0 (2-11) % Eos % (Auto) 1.4 (0-4) % Baso % (Auto) 0.4 (0-2) % Lymph # (Auto) 1.5 (1.2-4.9) X10*3/uL [place] # (Auto) 0.4 (0.1-1.2) X10*3/uL Eos # (Auto) 0.1 (0.0-0.4) X10*3/uL Baso # (Auto) 0.0 (0.0-0.2) X10*3/uL Abs Immat Gran (auto) 0.02 (0.00-0.03) X10*3/uL Absolute Neuts (auto) 3.2 (2.0-8.3) x10*3/uL Absolute Nucleated RBC 0.000 (0.0-0.012) X10*3/uL Nucleated RBC % (auto) 0.0 (0.0-0.2) /100WBC Sodium 142 (135-145) mmol/L Potassium 5.2 H (3.3-5.1) mmol/L Chloride 97 (96-108) mmol/L Carbon Dioxide 35 H (22-29) mmol/L Anion Gap 15 (12-20) BUN 42 H (9-16) mg/dL Creatinine 5.89 H* (0.5-1.4) mg/dL Estim Creat Clear Calc 7.4 Estimated GFR 7 Random Glucose 171 H (60-115) mg/dL Calcium 10.5 H D (8.4-10.2) mg/dL Magnesium 2.4 (1.6-2.6) mg/dL Total Bilirubin 0.5 (0.0-1.0) mg/dL Direct Bilirubin 0.1 (0.0-0.5) mg/dL AST 8 (5-31) U/L ALT 7 (0-31) U/L Alkaline Phosphatase 129 H (39-117) U/L Troponin I High Sens 10.3 (<3.5-17.0) ng/L Total Protein 7.0 (6.5-8.0) g/dL Albumin 4.0 (3.5-5.0) g/dL TSH 1.35 (0.32-4.0) uIU/mL Discharge Plan Discharge Clinical Impression: Palpitations Patient Disposition: Home, Self-Care Instructions: Heart Palpitations (ED) Additional Instructions: Please follow-up with your primary care physician tomorrow. If you have any worsening or new symptoms, please return to the emergency room or call 911 Prescriptions: No Action ezetimibe 10 mg tablet 10 mg PO QAM Qty: 90 3RF carvedilol 6.25 mg tablet 6.25 mg PO BID 90 Days Qty: 180 3RF Rx Instructions: must administer with a meal/food atorvastatin 80 mg tablet 80 mg PO BEDTIME Qty: 90 3RF aspirin 81 mg tablet,delayed release (DR/EC) 81 mg PO BEDTIME 90 Days Qty: 90 3RF Praluent Pen 75 mg/mL pen injector 75 mg subcut Q2W Qty: 2 5RF Rx Instructions: inject into abdomen, thigh, or upper arm (deltoid muscle); rotate sites amlodipine 10 mg tablet 10 mg PO DAILY 90 Days Qty: 90 3RF ascorbic acid (vitamin C) [Vitamin C] 500 mg tablet 1 tab PO BID montelukast 10 mg tablet 1 tab PO BEDTIME albuterol sulfate [ProAir HFA] 90 mcg/actuation Hfa Aerosol Inhaler 2 puff INHALATION Q4-6H PRN (Reason: Shortness Of Breath) Flovent HFA 110 mcg/actuation HFA aerosol inhaler 2 puff inhalation BID cholecalciferol (vitamin D3) 25 mcg (1,000 unit) tablet 1 tab PO DAILY Lantus Solostar U-100 Insulin 100 unit/mL (3 mL) insulin pen 6 unit subcut BEDTIME Qty: 0 0RF Rx Instructions: Patient states that if her blood sugar is greater than 100 she takes 7 units and if her blood sugar is less than 100 she takes no insulin. hydralazine 10 mg tablet 10 mg PO BID ferrous sulfate 325 mg (65 mg iron) tablet 325 mg PO BIDWM pantoprazole 40 mg tablet,delayed release (DR/EC) 40 mg PO DAILY@0630 sertraline 100 mg tablet 150 mg PO DAILY furosemide 40 mg tablet 120 mg PO BID cholecalciferol (vitamin D3) 25 mcg (1,000 unit) capsule 25 mcg PO DAILY sevelamer carbonate 800 mg tablet 800 mg PO DIRECTED Rx Instructions: with meals and snacks cetirizine 5 mg tablet 5 mg PO DAILY
[2022-12-07 14:41] VITALS: BP 166/61; PULSE 599
[2022-12-07 14:42] VITALS: BP 152/60; PULSE 152
[2022-12-07 14:43] VITALS: BP 155/60; PULSE 63
[2022-12-07 14:47] LABS: Alanine Aminotransferase 7 U/L (0-31); Alkaline Phosphatase 129 U/L (39-117); Anion Gap 15 (12-20); Aspartate Amino Transferase 8 U/L (5-31); Bilirubin Direct 0.1 mg/dL (0.0-0.5); Bilirubin Total 0.5 mg/dL (0.0-1.0); Blood Urea Nitrogen 42 mg/dL (9-16); Calcium 10.5 mg/dL (8.4-10.2); Carbon Dioxide 35 mmol/L (22-29); Chloride 97 mmol/L (96-108); Creatinine Clr Calc Pharmacy 7.4; Estimated Glomerular Filt Rate 7; Glucose Random 171 mg/dL (60-115); Magnesium 2.4 mg/dL (1.6-2.6); Potassium 5.2 mmol/L (3.3-5.1); Sodium 142 mmol/L (135-145); TSH reflex Free T4 1.35 uIU/mL (0.32-4.0)
== END 2022-12-07 15:20 | disposition home or self-care (01) ==
PROVIDERS: Physician Assistant; Emergency Provider Emergency Medicine
DX: R00.2 Palpitations (principal); E11.22 Type 2 diabetes mellitus with diabetic chronic kidney disease; I12.0 Hypertensive chronic kidney disease with stage 5 chronic kidney disease or end stage renal disease; N18.6 End stage renal disease; D63.1 Anemia in chronic kidney disease; Z95.1 Presence of aortocoronary bypass graft; Z79.899 Other long term (current) drug therapy; Z79.4 Long term (current) use of insulin; Z79.02 Long term (current) use of antithrombotics/antiplatelets; Z79.82 Long term (current) use of aspirin
CPT/HCPCS: 36415; 80048; 80076; 83735; 84443; 84484; 85025; 93005; 99283

== ENCOUNTER → 2023-01-11 09:56 | Outpatient (BNVA) | payer OTHER, SELFPAY | PROVIDERS: PCP Internal Medicine; Referring Provider Internal Medicine; Visit Provider Surgery | DX: K64.9 Unspecified hemorrhoids (principal); E11.22 Type 2 diabetes mellitus with diabetic chronic kidney disease; I12.0 Hypertensive chronic kidney disease with stage 5 chronic kidney disease or end stage renal disease; I25.10 Atherosclerotic heart disease of native coronary artery without angina pectoris; Z98.61 Coronary angioplasty status; Z95.1 Presence of aortocoronary bypass graft; N18.6 End stage renal disease; N17.9 Acute kidney failure, unspecified; Z99.2 Dependence on renal dialysis | CPT/HCPCS: 99202 ==

== ENCOUNTER 2023-01-30 06:07 | Day surgery (SDC) | payer OTHER, SELFPAY ==
[2023-01-25 13:47] VITALS: BMI 28.7
--- NOTE | 2023-01-25 14:25 | HO.ANESPROP2 ---
Documented by User: Ce Camacho NP 01/25/23 14:32 HPI - Anesthesia Eval Consult details Narrative: 68yo F for Hemorrhoidectomy,lithotomy,mini ligature, Pulmo eval 10/2022 for cough. PFT not done. CXR nml. but breathing much better and cough resolved per pt/family. PCP eval 11/2022 Cardiology eval 04/2022 (routine 6 month visit: s/p CABG 2018. CAD, HTN, HLD stable. ESRD with HD TuThSat (permacath while waiting for fistula to mature) *No IV/BP on LEFT* PMFSH Active Problems Active Problems: All Active Problems (Updated 01/25/23 @ 13:46 by Cherelle Hoff, TED) Status post coronary artery bypass graft (Acute) Abnormal echocardiogram (Acute) Essential hypertension (Acute) ESRD (end stage renal disease) on dialysis (Acute) Pneumonia (Acute) Pleural effusion (Acute) Depression with anxiety (Acute) Panic disorder (Acute) GERD (gastroesophageal reflux disease) (Acute) Diabetic retinopathy (Acute) Pernicious anemia (Acute) Anemia of chronic disease (Acute) Preop examination (Acute) Colon cancer screening (Acute) Osteoarthritis of left shoulder (Acute) Rotator cuff tendonitis (Acute) HPV in female (Acute) Hemorrhoids (Acute) Hypercalcemia (Acute) Essential hypertension (Acute) Edema (Acute) DJD (degenerative joint disease) (Acute) Chronic kidney disease (Acute) Asthma (Acute) Type 2 diabetes mellitus with unspecified complications (Acute) Other and unspecified hyperlipidemia (Acute) SHELIA (obstructive sleep apnea) (Acute) Past Medical History Medical History (Updated 01/25/23 @ 13:46 by Cherelle Hoff RN) Asthma Atherosclerotic cardiovascular disease Chronic kidney disease DJD (degenerative joint disease) Edema End stage chronic kidney disease Essential hypertension GERD (gastroesophageal reflux disease) 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 Hypercalcemia SHELIA (obstructive sleep apnea) Other and unspecified hyperlipidemia Type 2 diabetes mellitus with unspecified complications Family History Family History Father Cardiovascular disease Hypertension Mother Cardiovascular disease Hypertension Surgical History Surgical History (Updated 01/25/23 @ 11:56 by Cherelle Hoff RN) H/O angioplasty H/O colonoscopy Hemorrhoids History of coronary artery bypass graft (~2017) History of tubal ligation Social History Social History Household Members: Other Household Members Other:: son Housing: Apartment Housing Other:: senior apartment Are you a primary rn progressive care unit to a significant other at home: No Do you presently have visiting nurse or other home services: Yes ([facility]) Alcohol intake: never Patient Tobacco Use Status: Never used Tobacco Advance Directives Date on File: 12/03/20 service: No 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al status: disabled Meds Allergies Allergy/AdvReac Type Severity Reaction Status Date / Time No Known Allergies Allergy Verified 01/11/23 10:13 Home Medications Medication Instructions Recorded Confirmed Last Taken Type ferrous sulfate 325 mg (65 mg 325 mg PO BIDWM 06/10/20 01/25/23 11/28/21 History iron) tablet hydralazine 10 mg tablet 10 mg PO BID 06/10/20 01/25/23 11/28/21 History pantoprazole 40 mg tablet,delayed 40 mg PO DAILY@0630 06/10/20 01/25/23 11/28/21 History release sertraline 100 mg tablet 150 mg PO DAILY 06/10/20 01/25/23 11/28/21 History ascorbic acid (vitamin C) 500 mg 1 tab PO BID 12/03/20 01/25/23 11/28/21 History tablet (Vitamin C) montelukast 10 mg tablet 1 tab PO BEDTIME 12/03/20 01/25/23 11/28/21 History furosemide 40 mg tablet 120 mg PO BID 05/06/21 01/25/23 11/28/21 History albuterol sulfate 90 mcg/actuation 2 puff inhalation Q4-6H PRN 07/11/21 01/25/23 Unknown History aerosol inhaler (ProAir HFA) Shortness Of Breath fluticasone propionate 110 2 puff inhalation BID 07/11/21 01/25/23 11/28/21 History mcg/actuation HFA aerosol inhaler (Flovent HFA) cetirizine 5 mg tablet 5 mg PO DAILY 10/27/21 01/25/23 11/28/21 History cholecalciferol (vitamin D3) 25 25 mcg PO DAILY 11/23/22 01/25/23 Unknown History mcg (1,000 unit) capsule insulin aspart U-100 100 unit/mL See Rx Instructions .Route .COMPLEX 01/25/23 01/25/23 Unknown History (3 mL) subcutaneous pen (Novolog FlexPen U-100 Insulin aspart) insulin glargine 100 unit/mL (3 7 unit subcut QAM 01/25/23 01/25/23 Unknown History mL) subcutaneous pen (Lantus Solostar U-100 Insulin) sevelamer carbonate 800 mg tablet 1,600 mg PO TID 01/25/23 01/25/23 Unknown History Exam Exam Date and Time: January 25, 2023 1425 Height,Weight and Vital Signs: Height 4 ft 11 in Weight 64.41 kg Pertinent Lab Results Pertinent Lab Results: Laboratory Tests 12/07/22 13:48 WBC 5.1 Hgb 9.5 L Hct 28.6 L Plt Count 188 Narrative Narrative: EKG 11/2022 Vent. Rate : 058 BPM ? ? Atrial Rate : 058 BPM ?? P-R Int : 168 ms? QRS Dur : 090 ms ? ? QT Int : 442 ms ? ? ? P-R-T Axes : 052 022 032 degrees ?? QTc Int : 433 ms ? Sinus bradycardia Septal infarct (cited on or before 28-NOV-2017) Abnormal ECG When compared with ECG of 28-NOV-2021 09:52, No significant change was found ECHO 2021 Conclusions: - 1.? Normal LV systolic function with impaired relaxation ? ? ? filling pattern with suggestion of increased left ventricular end diastolic pressure with underlying regional wall motion? abnormality? 2. Mild aortic stenosis? 3. Normal RV systolic pressure ? 4. No pericardial effusion ?? NM cardiolite stress test 2021 Impression: ? 1.? Myocardial perfusion imaging study shows likely normal myocardial perfusion 2.? Gated LVEF is 53% 3. Transient ischemic dilatation not present ? 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 Hypercalcemia SHELIA (obstructive sleep apnea) Other and unspecified hyperlipidemia Type 2 diabetes mellitus with unspecified complications Family History Family History Father Cardiovascular disease Hypertension Mother Cardiovascular disease Hypertension Family history of problems with anesthesia: No Surgical History Surgical History (Updated 01/25/23 @ 11:56 by Cherelle Hoff RN) H/O angioplasty H/O colonoscopy Hemorrhoids History of coronary artery bypass graft (~2017) History of tubal ligation History of Problems with Anesthesia: No Social History Social History Household Members: Other Household Members Other:: son Housing: Apartment Housing Other:: senior apartment Are you a primary rn progressive care unit to a significant other at home: No Do you presently have visiting nurse or other home services: Yes ([facility]) Alcohol intake: never Patient Tobacco Use Status: Never used Tobacco Advance Directives Date on File: 12/03/20 service: No 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al status: disabled Meds Allergies Allergy/AdvReac Type Severity Reaction Status Date / Time No Known Allergies Allergy Verified 01/11/23 10:13 Home Medications Medication Instructions Recorded Confirmed Last Taken Type ferrous sulfate 325 mg (65 mg 325 mg PO BIDWM 06/10/20 01/25/23 11/28/21 History iron) tablet hydralazine 10 mg tablet 10 mg PO BID 06/10/20 01/25/23 11/28/21 History pantoprazole 40 mg tablet,delayed 40 mg PO DAILY@0630 06/10/20 01/25/23 11/28/21 History release sertraline 100 mg tablet 150 mg PO DAILY 06/10/20 01/25/2311/28/22 History ascorbic acid (vitamin C) 500 mg 1 tab PO BID 12/03/20 01/25/23 11/28/21 History tablet (Vitamin C) montelukast 10 mg tablet 1 tab PO BEDTIME 12/03/20 01/25/23 11/28/21 History furosemide 40 mg tablet 120 mg PO BID 05/06/21 01/25/23 11/28/21 History albuterol sulfate 90 mcg/actuation 2 puff inhalation Q4-6H PRN 07/11/21 01/25/23 Unknown History aerosol inhaler (ProAir HFA) Shortness Of Breath fluticasone propionate 110 2 puff inhalation BID 07/11/21 01/25/23 11/28/21 History mcg/actuation HFA aerosol inhaler (Flovent HFA) cetirizine 5 mg tablet 5 mg PO DAILY 10/27/21 01/25/23 11/28/21 History cholecalciferol (vitamin D3) 25 25 mcg PO DAILY 11/23/22 01/25/23 Unknown History mcg (1,000 unit) capsule insulin aspart U-100 100 unit/mL See Rx Instructions .Route .COMPLEX 01/25/23 01/25/23 Unknown History (3 mL) subcutaneous pen (Novolog FlexPen U-100 Insulin aspart) insulin glargine 100 unit/mL (3 7 unit subcut QAM 01/25/23 01/25/23 Unknown History mL) subcutaneous pen (Lantus Solostar U-100 Insulin) sevelamer carbonate 800 mg tablet 1,600 mg PO TID 01/25/23 01/25/23 Unknown History Exam Airway Mallampati Class: II TM Dist: >3cm Neck ROM: Full Loose/Missing/Broken Teeth: Yes (lower front missing) Heart: rr Lungs: cta Assessment and Plan Assessment Anesthesia Assessment: Anesthesia Plan Discussed Final Anesthetic Review Family History of Problems with Anesthesia: No History of Problems with Anesthesia: No NPO: Yes ASA Class: III Final Preanesthetic Review: No Changes in Pt Med Stat, Meds/Allgs Chart Reviewed, Consent Obtained/Reviewed and Anes Risks/Benef Reviewed Patient Risk: Low Procedure Risk: Low Anesthetic Plan Anesthetic Plan: MAC: Disposition: Standard PACU
--- NOTE | 2023-01-27 16:16 | MHC.SHP ---
Pre-Procedural Eval Section A Date of Service: 01/27/23 The patient is an INPATIENT: No Changes since office visit: No Cold of Flu in the past 2 weeks, No New Medical Problems, No Changes in Medication and No Patient answered all questions The History & Physical has been completed within 30 days and I have reviewed it.: Yes Section B Chief Complaint: Unspecified hemorrhoids Allergies: Allergies Allergy/AdvReac Type Severity Reaction Status Date / Time No Known Allergies Allergy Verified 01/11/23 10:13 Plan I have reviewed the history and physical and performed a pertinent physical examination on my patient. No changes have occurred unless specified. Time Spent With Patient Time: Total time managing care of this patient today ____ minutes.
[2023-01-30] VITALS (7 sets, daily range): BP systolic 146–170; BP diastolic 61–65; PULSE 56–60; RESP 16–20; TEMP 36.2–36.4; O2SAT 97–100
--- NOTE | 2023-01-30 06:46 | PC.NURSE ---
son concerned with patients dialysis scheduled for tomorrow. i instructed him to call the center today to see what to do about her scheduled dialysis for tomorrow. hes concerned if she will be able to tolerate the dialysis after her surgery.
--- NOTE | 2023-01-30 08:03 | W.PM.OPN ---
Operative Note Operative Note Date of Service: 01/30/23 Narrative: Preoperative diagnosis: [] Very symptomatic hemorrhoids Postop diagnosis: [] Same Procedure [] hemorrhoidectomy Surgeon: [] Eliud Buckle Frame Shaper: [] Type of Anesthesia: [] MAC Indication for surgery: [] Very large, edematous, friable hemorrhoids of the 3, 7 and 11 o'clock positions in lithotomy Findings: [] Patient brought to the operating room, placed on operative table in supine position, after adequate level of MAC anesthesia was induced, patient was placed in lithotomy position, and the anorectal area was prepped and draped in usual sterile fashion. Each hemorrhoidal cushion was infiltrated with 0.5% Marcaine/1% lidocaine. Each hemorrhoidal station was sequentially double ligature fired and transected. Specimens were sent to pathology. Wounds were irrigated, secured hemostasis, and a bupivacaine impregnated Gelfoam plug was placed followed by sterile dressing. Sponge, needle, and instrument counts were reported correct. Patient tolerated procedure well and emerged anesthesia stable condition. EBL minimal
== END 2023-01-30 09:20 | disposition home or self-care (01) ==
PROVIDERS: PCP Internal Medicine; Visit Provider Surgery
PROC: (CPT 46260; principal; 2023-01-30 07:30)
DX: K64.9 Unspecified hemorrhoids (principal); E11.22 Type 2 diabetes mellitus with diabetic chronic kidney disease; I12.0 Hypertensive chronic kidney disease with stage 5 chronic kidney disease or end stage renal disease; N18.6 End stage renal disease; J44.9 Chronic obstructive pulmonary disease, unspecified
CPT/HCPCS: 46260; 36415; 80051; 82947; 88304; J0690; J3010

== ENCOUNTER 2023-02-07 00:04 | Emergency (ER) | payer OTHER, SELFPAY ==
--- NOTE | ~2023-02-07 | XR_ITS ---
EXAMINATION: XR CHEST CLINICAL INFORMATION: Shortness of breath COMPARISON: 11/28/2022 TECHNIQUE: Frontal view of the chest was obtained. FINDINGS: Right IJ central line tip in the region of the right atrium. Lung volumes are symmetric. No focal consolidation is seen. No evidence of pneumothorax, pleural effusion, or pulmonary edema. Cardiac size is within normal limits. Calcification is present at the aortic arch. Sternal wires are present. No acute osseous findings are seen. XR/XR chest 1V IMPRESSION: No acute cardiopulmonary findings.
--- NOTE | ~2023-02-07 | CT_ITS ---
EXAMINATION: CT HEAD WITHOUT CONTRAST (STROKE PROTOCOL) INDICATION INFORMATION: Severe headache COMPARISON: 06/06/2011 TECHNIQUE: Noncontrast CT of the head was performed. DLP: 625 mGy-cm DOSE LOWERING TECHNIQUES: This CT examination was performed using dose optimization techniques as appropriate, variously including the following: - Automated exposure control - Adjustment of mA and/or kV according to patient size (this includes techniques or standardized protocols for targeted exams were dose is matched to indication/reason for exam; i.e. extremities or head) - Use of iterative reconstruction technique FINDINGS: There is no evidence of acute intracranial hemorrhage or territorial infarction. No abnormal mass-effect or midline shift is seen. Silver to white matter differentiation is well preserved. No extra-axial fluid collections are identified. The ventricles are normal in size. There is mild periventricular white matter hypoattenuation consistent with chronic small vessel ischemic disease. Mild volume loss is noted. The osseous structures and soft tissues are normal. Bilateral mastoid air cells appear partially opacified. The visualized portions of the paranasal sinuses are well-aerated. CT/CT head for stroke IMPRESSION: No acute intracranial findings. This stroke protocol result was discussed with Dr. Colon on 02/07/2023 12:30 AM.
--- NOTE | 2023-02-07 00:10 | ECG_ITS ---
Test Reason : STROKE PROTOCOL Blood Pressure : / mmHG Vent. Rate : 059 BPM Atrial Rate : 059 BPM P-R Int : 154 ms QRS Dur : 098 ms QT Int : 444 ms P-R-T Axes : 054 053 017 degrees QTc Int : 439 ms Sinus bradycardia Incomplete right bundle branch block Septal infarct (cited on or before 28-NOV-2017) Abnormal ECG When compared with ECG of 07-DEC-2022 13:37, No significant change was found Referred By: Tram Colon Electronically Signed By:RUSTY DUVALL MD
--- NOTE | 2023-02-07 00:14 | ED_ITS ---
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 Patient does have a significant past medical history of panic disorder, ESRD, and appears to have a new creation of a fistula to the left upper extremity. Related Data Home Medications Medication Instructions Recorded Confirmed ferrous sulfate 325 mg (65 mg 325 mg PO BIDWM 06/10/20 01/25/23 iron) tablet hydralazine 10 mg tablet 10 mg PO BID 06/10/20 01/25/23 pantoprazole 40 mg tablet,delayed 40 mg PO DAILY@0630 06/10/20 01/25/23 release sertraline 100 mg tablet 150 mg PO DAILY 06/10/20 01/25/23 ascorbic acid (vitamin C) 500 mg 1 tab PO BID 12/03/20 01/25/23 tablet (Vitamin C) montelukast 10 mg tablet 1 tab PO BEDTIME 12/03/20 01/25/23 furosemide 40 mg tablet 120 mg PO BID 05/06/21 01/25/23 albuterol sulfate 90 mcg/actuation 2 puff inhalation Q4-6H PRN 07/11/21 01/25/23 aerosol inhaler (ProAir HFA) Shortness Of Breath fluticasone propionate 110 2 puff inhalation BID 07/11/21 01/25/23 mcg/actuation HFA aerosol inhaler (Flovent HFA) cetirizine 5 mg tablet 5 mg PO DAILY 10/27/21 01/25/23 cholecalciferol (vitamin D3) 25 25 mcg PO DAILY 11/23/22 01/25/23 mcg (1,000 unit) capsule insulin aspart U-100 100 unit/mL See Rx Instructions .Route .COMPLEX 01/25/23 01/25/23 (3 mL) subcutaneous pen (Novolog FlexPen U-100 Insulin aspart) insulin glargine 100 unit/mL (3 7 unit subcut QAM 01/25/23 01/25/23 mL) subcutaneous pen (Lantus Solostar U-100 Insulin) sevelamer carbonate 800 mg tablet 1,600 mg PO TID 01/25/23 01/25/23 Previous Rx's Medication Instructions Recorded insulin glargine 100 unit/mL (3 6 unit (0.06 mL) subcut BEDTIME #0 12/03/21 mL) subcutaneous pen (Lantus mL Solostar U-100 Insulin) ezetimibe 10 mg tablet 10 mg PO QAM #90 tabs 03/21/22 carvedilol 6.25 mg tablet 6.25 mg PO BID 90 days #180 tabs 03/25/22 atorvastatin 80 mg tablet 80 mg PO BEDTIME #90 tabs 08/17/22 aspirin 81 mg tablet,delayed 81 mg PO BEDTIME 90 days #90 tabs 11/08/22 release alirocumab 75 mg/mL subcutaneous 75 mg subcut Q2W #2 mL 12/05/22 pen injector (Praluent Pen) amlodipine 10 mg tablet 10 mg PO DAILY 90 days #90 tabs 12/06/22 hydrocodone 5 mg-acetaminophen 325 1 tab PO Q6-8H PRN pain #30 tabs 01/30/23 mg tablet Allergies Allergy/AdvReac Type Severity Reaction Status Date / Time No Known Allergies Allergy Verified 01/11/23 10:13 Review of Systems Review of Systems: Pertinent positives and negatives as stated in HPI [facility] Past Medical History Source: nursing notes reviewed Medical History Asthma Atherosclerotic cardiovascular disease Chronic kidney disease DJD (degenerative joint disease) Edema End stage chronic kidney disease Essential hypertension GERD (gastroesophageal reflux disease) 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 Hypercalcemia SHELIA (obstructive sleep apnea) Other and unspecified hyperlipidemia Type 2 diabetes mellitus with unspecified complications Surgical History H/O angioplasty H/O colonoscopy Hemorrhoids History of coronary artery bypass graft (~2018) History of tubal ligation Family History Family History Father Cardiovascular disease Hypertension Mother Cardiovascular disease Hypertension Social History Social History Household Members: Other Household Members Other:: son Housing: Apartment Housing Other:: senior apartment Are you a primary eye care professional to a significant other at home: No Do you presently have visiting nurse or other home services: Yes ([facility]) Alcohol intake: never Patient Tobacco Use Status: Never used Tobacco Smoked in Last 30 Days: No Use of substances other than those prescribed or required for medical reasons: No Advance Directives: Yes Advance Directives on File: Yes Advance Directives Date on File: 12/03/20 service: No 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al status: disabled Physical Exam Vital Signs: Vital Signs: Last Vital Signs Temp 98.4 F 02/07/23 01:51 Pulse 66 02/07/23 04:00 Resp 18 02/07/23 04:00 BP 170/75 H 02/07/23 04:00 Pulse Ox 95 02/07/23 04:00 O2 Del Method Room Air 02/07/23 01:51 BMI result Body Mass Index 28.8 VITAL SIGNS: Reviewed. GENERAL: Chronically ill, in no acute distress. HEAD: Normocephalic/atraumatic EYES: PERRLA, EOMI EARS: Ext canals without abnormality NOSE: Nares patent bilateral OROPHARYNX: no oral lesions noted, posterior pharynx clear NECK: Supple, no adenopathy LUNGS: Normal breath sounds. No adventitious sounds or accessory muscle use, tachypnea. CARDIOVASCULAR: Regular rate and rhythm without noted murmurs, no JVD or lower extremity edema. ABDOMEN: Soft, non-tender, non-distended with bowel sounds. MUSCULOSKELETAL: No tenderness, deformities, or effusions noted on gross inspection. EXTREMITIES: No cyanosis, clubbing or edema; LEFT UPPER EXTREMITY: Small well- healing incision that appears to be the site of fistula creation SKIN: Inspection of the skin reveals no rashes NEUROLOGIC: Alert and oriented x 3. Strength and sensation to light touch were grossly intact x 4, please review findings on NIH stroke scale. NIH Stroke Scale Internal: Initial- Upon Arrival Level of Consciousness: Alert Level of Consciousness Questions: Answers both questions correctly Level of Consciousness Commands: Performs both tasks correctly Best Gaze: Normal Visual: No visual loss Facial Palsy: Normal Motor Arm (Right): No drift Motor Arm (Left): No drift Motor Leg (Right): No drift Motor Leg (Left): No drift Limb Ataxia: Absent Sensory: Normal Best Language: No aphasia Dysarthia: Normal Extinction and Inattention: No abnormality Score: 0 Medications Administered Discontinued Medications Generic Name Dose Route Start Last Admin Trade Name Freq PRN Reason Stop Dose Admin Acetaminophen 975 mg 02/07/23 00:39 02/07/23 00:49 Acetaminophen 325 Mg Tablet PO 02/07/23 00:40 975 mg ONCE ONE Administration Furosemide 40 mg 02/07/23 01:21 02/07/23 01:35 Furosemide 40 Mg/4 Ml Vial IVPUSH 02/07/23 01:22 40 mg ONCE ONE Administration Protocol Nitroglycerin 0.25 inch 02/07/23 01:32 02/07/23 01:38 Nitroglycerin 2 % Oint 1 Gm Packet TRANSDERMA 02/07/23 01:33 0.25 inch ONCE ONE Administration Medical Decision Making Medical Decision Making MDM Narrative: 68-year-old female with history and clinical presentation, DDX: General headache, migraine, hemorrhagic stroke without current focal symptoms. Activ ated the ED stroke protocol although I do not suspect an ischemic stroke given NIH stroke scale and absence of focal findings. 0029: I discussed the case with Dr. Mark who states that there are no acute findings on noncontrast CT of the head. Review of all investigations demonstrates hematologic indices that are grossly within normal limits, chemistries are consistent with patient's known ESR D on dialysis, last dialysis was on Monday and she has dialysis tomorrow with chronically stable BUN and creatinine of 39/8.35. No clinical evidence of CHF exacerbation in suspect that the BNP that is observed to be elevated he is secondary to renal failure, chronic. No pneumonia on chest x-ray and no evidence of pulmonary edema. EKG without acute EKG changes. Patient was given nitroglycerin for hypertension, additional dose of Lasix as well as 975 mg of Tylenol for headache. There is no evidence of acute ischemia or hemorrhagic stroke, patient is nonfocal. Patient is hemodynamically stable. 0510: On re-evaluation patient states that she is feeling much better and is ready to go home, she also has dialysis scheduled for this morning and was instructed to follow-up with primary care provider today as well. Differential Diagnosis Differential Diagnoses: The differential diagnosis associated with the presentation includes Please see the discussion above Admission/Observation Consideration of admission/observation: Escalation of care including admission/observation considered Lab Data MDM Lab Attestation statement: I reviewed the patient's lab results. Please see the discussion above 02/07/23 00:45 02/07/23 00:45 Labs: Lab Results 02/07/23 02/07/23 02/07/23 Range/Units 00:20 00:31 00:45 WBC 6.0 (4.8-10.8) X10*3/uL RBC 4.13 L D (4.20-5.50) X10*6/uL Hgb 12.5 D (12.0-16.0) g/dl Hct 37.5 D (37.0-47.0) % MCV 90.8 (80.0-98.0) fL MCH 30.3 (27.0-33.0) pg MCHC 33.3 (31.0-35.0) g/dl RDW 14.5 (11.0-16.0) % Plt Count 240 D (160-400) X10*3/uL MPV 9.7 (9.4-12.3) fL Immature Gran % (Auto) 0.3 (0.0-0.4) % Neut % (Auto) 67.7 (45-73) % Lymph % (Auto) 23.6 (20-40) % [place] % (Auto) 6.9 (2-11) % Eos % (Auto) 1.0 (0-4) % Baso % (Auto) 0.5 (0-2) % Lymph # (Auto) 1.4 (1.2-4.9) X10*3/uL [place] # (Auto) 0.4 (0.1-1.2) X10*3/uL Eos # (Auto) 0.1 (0.0-0.4) X10*3/uL Baso # (Auto) 0.0 (0.0-0.2) X10*3/uL Abs Immat Gran (auto) 0.02 (0.00-0.03) X10*3/uL Absolute Neuts (auto) 4.0 (2.0-8.3) x10*3/uL Absolute Nucleated RBC 0.000 (0.0-0.012) X10*3/uL Nucleated RBC % (auto) 0.0 (0.0-0.2) /100WBC PT (10.0-13.1) SEC Whole Blood PT 12.2 (11.1-13.5) sec INR (0.9-1.1) Whole Blood INR 1.0 (0.9-1.1) APTT (26.0-36.4) SEC Sodium (135-145) mmol/L Potassium (3.3-5.1) mmol/L Chloride (96-108) mmol/L Carbon Dioxide (22-29) mmol/L Anion Gap (12-20) BUN (9-16) mg/dL Creatinine (0.5-1.4) mg/dL Estim Creat Clear Calc Estimated GFR POC Glucose 257 H (60-115) mg/dL Random Glucose (60-115) mg/dL Calcium (8.4-10.2) mg/dL Magnesium (1.6-2.6) mg/dL Total Bilirubin (0.0-1.0) mg/dL Direct Bilirubin (0.0-0.5) mg/dL AST (5-31) U/L ALT (0-31) U/L Alkaline Phosphatase (39-117) U/L Total Creatine Kinase (26-140) U/L Troponin I High Sens (<3.5-17.0) ng/L B-Natriuretic Peptide (<100) pg/mL Total Protein (6.5-8.0) g/dL Albumin (3.5-5.0) g/dL 02/07/23 02/07/23 02/07/23 Range/Units 00:45 00:45 00:45 WBC (4.8-10.8) X10*3/uL RBC (4.20-5.50) X10*6/uL Hgb (12.0-16.0) g/dl Hct (37.0-47.0) % MCV (80.0-98.0) fL MCH (27.0-33.0) pg MCHC (31.0-35.0) g/dl RDW (11.0-16.0) % Plt Count (160-400) X10*3/uL MPV (9.4-12.3) fL Immature Gran % (Auto) (0.0-0.4) % Neut % (Auto) (45-73) % Lymph % (Auto) (20-40) % [place] % (Auto) (2-11) % Eos % (Auto) (0-4) % Baso % (Auto) (0-2) % Lymph # (Auto) (1.2-4.9) X10*3/uL [place] # (Auto) (0.1-1.2) X10*3/uL Eos # (Auto) (0.0-0.4) X10*3/uL Baso # (Auto) (0.0-0.2) X10*3/uL Abs Immat Gran (auto) (0.00-0.03) X10*3/uL Absolute Neuts (auto) (2.0-8.3) x10*3/uL Absolute Nucleated RBC (0.0-0.012) X10*3/uL Nucleated RBC % (auto) (0.0-0.2) /100WBC PT 11.6 (10.0-13.1) SEC Whole Blood PT (11.1-13.5) sec INR 1.0 (0.9-1.1) Whole Blood INR (0.9-1.1) APTT 30.7 (26.0-36.4) SEC Sodium 138 (135-145) mmol/L Potassium 3.9 (3.3-5.1) mmol/L Chloride 96 (96-108) mmol/L Carbon Dioxide 24 (22-29) mmol/L Anion Gap 22 H (12-20) BUN 39 H (9-16) mg/dL Creatinine 8.35 H* (0.5-1.4) mg/dL Estim Creat Clear Calc 5.1 Estimated GFR 5 POC Glucose (60-115) mg/dL Random Glucose 191 H (60-115) mg/dL Calcium 11.9 H D (8.4-10.2) mg/dL Magnesium 2.3 (1.6-2.6) mg/dL Total Bilirubin 0.5 (0.0-1.0) mg/dL Direct Bilirubin 0.2 (0.0-0.5) mg/dL AST 15 (5-31) U/L ALT < 5 (0-31) U/L Alkaline Phosphatase 95 (39-117) U/L Total Creatine Kinase 19 L (26-140) U/L Troponin I High Sens 8.4 (<3.5-17.0) ng/L B-Natriuretic Peptide (<100) pg/mL Total Protein 8.0 (6.5-8.0) g/dL Albumin 4.1 (3.5-5.0) g/dL 02/07/23 Range/Units 00:45 WBC (4.8-10.8) X10*3/uL RBC (4.20-5.50) X10*6/uL Hgb (12.0-16.0) g/dl Hct (37.0-47.0) % MCV (80.0-98.0) fL MCH (27.0-33.0) pg MCHC (31.0-35.0) g/dl RDW (11.0-16.0) % Plt Count (160-400) X10*3/uL MPV (9.4-12.3) fL Immature Gran % (Auto) (0.0-0.4) % Neut % (Auto) (45-73) % Lymph % (Auto) (20-40) % [place] % (Auto) (2-11) % Eos % (Auto) (0-4) % Baso % (Auto) (0-2) % Lymph # (Auto) (1.2-4.9) X10*3/uL [place] # (Auto) (0.1-1.2) X10*3/uL Eos # (Auto) (0.0-0.4) X10*3/uL Baso # (Auto) (0.0-0.2) X10*3/uL Abs Immat Gran (auto) (0.00-0.03) X10*3/uL Absolute Neuts (auto) (2.0-8.3) x10*3/uL Absolute Nucleated RBC (0.0-0.012) X10*3/uL Nucleated RBC % (auto) (0.0-0.2) /100WBC PT (10.0-13.1) SEC Whole Blood PT (11.1-13.5) sec INR (0.9-1.1) Whole Blood INR (0.9-1.1) APTT (26.0-36.4) SEC Sodium (135-145) mmol/L Potassium (3.3-5.1) mmol/L Chloride (96-108) mmol/L Carbon Dioxide (22-29) mmol/L Anion Gap (12-20) BUN (9-16) mg/dL Creatinine (0.5-1.4) mg/dL Estim Creat Clear Calc Estimated GFR POC Glucose (60-115) mg/dL Random Glucose (60-115) mg/dL Calcium (8.4-10.2) mg/dL Magnesium (1.6-2.6) mg/dL Total Bilirubin (0.0-1.0) mg/dL Direct Bilirubin (0.0-0.5) mg/dL AST (5-31) U/L ALT (0-31) U/L Alkaline Phosphatase (39-117) U/L Total Creatine Kinase (26-140) U/L Troponin I High Sens (<3.5-17.0) ng/L B-Natriuretic Peptide 918 H (<100) pg/mL Total Protein (6.5-8.0) g/dL Albumin (3.5-5.0) g/dL Independent Interpretation I performed an independent interpretation of an: EKG Interpretation: Sinus bradycardia, HR -59, no STEMI, AR/QRS/QTC are within normal limits. Radiology Impression Radiologist Impression: No intracranial hemorrhage, otherwise my interpretation is in agreement with radiology's impression. External Record Review External record reviewed: Outpatient record and Prior outpatient labs Chronic Conditions Patient?s care impacted by: Diabetes and Hypertension Critical Care Time Critical Care Time Critical Care Time: Yes Total Critical Care Time: 30 Attestation: I personally attest to this time spent taking care of the patient. Discharge Plan Discharge Clinical Impression: Headache, Hypertension Patient Disposition: Home, Self-Care Instructions: General Headache (ED), Hypertension (ED), DASH Eating Plan (ED) Additional Instructions: 1. Reanudar todos los medicamentos caseros seg?n lo prescrito. 2. Por favor acuda a la rubi programada para mclean di?lisis esta ma?natividad. 3. Jair un seguimiento con mclean proveedor de atenci?n primaria hoy llamando a la oficina. Regrese a la dilcia de emergencias si los s?ntomas empeoran. 1. Resume all home medications as prescribed. 2. Please keep the appointment scheduled for your dialysis this morning. 3. Please follow-up with your primary care provider today by calling the office. Return to the ER for any worsening symptoms. Prescriptions: No Action ezetimibe 10 mg tablet 10 mg PO QAM Qty: 90 3RF carvedilol 6.25 mg tablet 6.25 mg PO BID 90 Days Qty: 180 3RF Rx Instructions: must administer with a meal/food atorvastatin 80 mg tablet 80 mg PO BEDTIME Qty: 90 3RF aspirin 81 mg tablet,delayed release (DR/EC) 81 mg PO BEDTIME 90 Days Qty: 90 3RF Praluent Pen 75 mg/mL pen injector 75 mg subcut Q2W Qty: 2 5RF Rx Instructions: inject into abdomen, thigh, or upper arm (deltoid muscle); rotate sites amlodipine 10 mg tablet 10 mg PO DAILY 90 Days Qty: 90 3RF ascorbic acid (vitamin C) [Vitamin C] 500 mg tablet 1 tab PO BID montelukast 10 mg tablet 1 tab PO BEDTIME albuterol sulfate [ProAir HFA] 90 mcg/actuation Hfa Aerosol Inhaler 2 puff INHALATION Q4-6H PRN (Reason: Shortness Of Breath) fluticasone propionate [Flovent HFA] 110 mcg/actuation HFA aerosol inhaler 2 puff inhalation BID insulin glargine [Lantus Solostar U-100 Insulin] 100 unit/mL (3 mL) insulin pen 6 unit subcut BEDTIME Qty: 0 0RF Rx Instructions: Patient states that if her blood sugar is greater than 100 she takes 7 units and if her blood sugar is less than 100 she takes no insulin. insulin aspart U-100 [Novolog FlexPen U-100 Insulin] 100 unit/mL (3 mL) insulin pen See Rx Instructions .ROUTE .COMPLEX Rx Instructions: per sliding scale sevelamer carbonate 800 mg tablet 1,600 mg PO TID insulin glargine [Lantus Solostar U-100 Insulin] 100 unit/mL (3 mL) insulin pen 7 unit subcut QAM hydrocodone-acetaminophen 5-325 mg tablet 1 tab PO Q6-8H PRN (Reason: pain) Qty: 30 0RF Rx Instructions: Partial Fill upon patient request. hydralazine 10 mg tablet 10 mg PO BID ferrous sulfate 325 mg (65 mg iron) tablet 325 mg PO BIDWM pantoprazole 40 mg tablet,delayed release (DR/EC) 40 mg PO DAILY@0630 sertraline 100 mg tablet 150 mg PO DAILY furosemide 40 mg tablet 120 mg PO BID cholecalciferol (vitamin D3) 25 mcg (1,000 unit) capsule 25 mcg PO DAILY cetirizine 5 mg tablet 5 mg PO DAILY Referrals: Natividad Perez MD [Primary Care Provider] - Print Language: [place]
[2023-02-07 00:27] LABS: Glucose, Whole Blood 257 mg/dL (60-115)
[2023-02-07 00:30] VITALS: BP 199/71; PULSE 59; PULSE 60; RESP 18; O2SAT 100; BMI 28.8
[2023-02-07 00:34] LABS: Prothrombin Time Whole Bld POC 12.2 sec (11.1-13.5)
[2023-02-07 00:49] LABS: MANUAL DIFF FLAG NO
[2023-02-07] MEDS: Acetaminophen 325 MG TABLET 975 MG PO (00:49)
[2023-02-07 00:52] LABS: Basophils Percent Auto 0.5 % (0-2); Eosinophils Absolute Auto 0.1 X10*3/uL (0.0-0.4); Hematocrit 37.5 % (37.0-47.0); Hemoglobin 12.5 g/dl (12.0-16.0); Imm Gran Abs Auto 0.02 X10*3/uL (0.00-0.03); Imm Gran Pct Auto 0.3 % (0.0-0.4); Lymphocytes Absolute Auto 1.4 X10*3/uL (1.2-4.9); Lymphocytes Percent Auto 23.6 % (20-40); Mean Corpuscular HGB Conc 33.3 g/dl (31.0-35.0); Mean Corpuscular Hemoglobin 30.3 pg (27.0-33.0); Mean Corpuscular Volume 90.8 fL (80.0-98.0); Mean Platelet Volume 9.7 fL (9.4-12.3); Monocytes Absolute Auto 0.4 X10*3/uL (0.1-1.2); Monocytes Percent Auto 6.9 % (2-11); Neutrophils Percent Auto 67.7 % (45-73); Platelet Count 240 X10*3/uL (160-400); Red Blood Count 4.13 X10*6/uL (4.20-5.50); Red Cell Distribution Width 14.5 % (11.0-16.0)
--- NOTE | 2023-02-07 00:52 | PC.NURSE ---
medicated per Sep and notified TED Luong.
--- NOTE | 2023-02-07 00:53 | MHC.EDTECH ---
Patient changed into hospital attire,residential monitor placed,Labs drawn and pt is resting at this time. call mendiola within reach
--- NOTE | 2023-02-07 00:54 | PC.NURSE ---
Assumed care of pt. Pt initially called in as question sof stroke, on arrival, pt taken to CT for imaging. Post CT, assessment completed with findings as charted. Pt sts recent surgery on hemmorhoids, c/o pain in rectal area, not new. Pt also complaining of headache and eye pain, similar to previous episodes, but worse in pain level. Pt also stating she has not had bowel movement since surgery, but has not contacted provider. aweare of findings.
[2023-02-07 01:00] LABS: Prothrombin Time 11.6 SEC (10.0-13.1)
[2023-02-07 01:03] LABS: Partial Thromboplastin Time 30.7 SEC (26.0-36.4)
[2023-02-07 01:10] VITALS: BP 196/67; PULSE 58; RESP 20; O2SAT 97
[2023-02-07 01:14] LABS: B Type Natriuretic Peptide 918 pg/mL (<100)
[2023-02-07 01:16] LABS: Stroke Lab Use COMPLETE
[2023-02-07 01:20] LABS: Troponin-I High Sensitivity 8.4 ng/L (<3.5-17.0)
[2023-02-07 01:28] LABS: Anion Gap 22 (12-20); Blood Urea Nitrogen 39 mg/dL (9-16); Calcium 11.9 mg/dL (8.4-10.2); Carbon Dioxide 24 mmol/L (22-29); Chloride 96 mmol/L (96-108); Creatinine Clr Calc Pharmacy 5.1; Estimated Glomerular Filt Rate 5; Glucose Random 191 mg/dL (60-115); Potassium 3.9 mmol/L (3.3-5.1); Sodium 138 mmol/L (135-145)
[2023-02-07] MEDS: Furosemide 40 MG/4 ML VIAL IVPUSH (01:35)
[2023-02-07] MEDS: Nitroglycerin 2 % Oint 1 GM Packet 0.25 INCH TRANSDERMA (01:38)
[2023-02-07 01:42] LABS: Alanine Aminotransferase < 5 U/L (0-31); Albumin Level 4.1 g/dL (3.5-5.0); Alkaline Phosphatase 95 U/L (39-117); Aspartate Amino Transferase 15 U/L (5-31); Bilirubin Direct 0.2 mg/dL (0.0-0.5); Bilirubin Total 0.5 mg/dL (0.0-1.0); Magnesium 2.3 mg/dL (1.6-2.6)
[2023-02-07 01:51] VITALS: BP 180/69; PULSE 63; RESP 20; TEMP 36.9; O2SAT 96
[2023-02-07 04:00] VITALS: BP 170/75; PULSE 66; RESP 18; O2SAT 95
--- NOTE | 2023-02-07 05:24 | PC.NURSE ---
Son contacted for discharge ride home.
== END 2023-02-07 06:41 | disposition home or self-care (01) ==
PROVIDERS: Emergency Provider Student in an Organized Health Care Education/Training Program; PCP Internal Medicine
DX: R51.9 Headache, unspecified (principal); E11.22 Type 2 diabetes mellitus with diabetic chronic kidney disease; I12.0 Hypertensive chronic kidney disease with stage 5 chronic kidney disease or end stage renal disease; N18.6 End stage renal disease; Z99.2 Dependence on renal dialysis; R06.02 Shortness of breath; Z79.4 Long term (current) use of insulin; Z79.899 Other long term (current) drug therapy; Z79.82 Long term (current) use of aspirin
CPT/HCPCS: 36415; 70450; 71045; 80048; 80076; 82550; 82947; 83735; 83880; 84484; 85025; 85610; 85730; 93005; 96374; 99284; 99285; J1940

== ENCOUNTER 2023-02-07 15:59 | Inpatient (IN) | payer OTHER, SELFPAY ==
--- NOTE | ~2023-02-07 | XR_ITS ---
EXAMINATION: XR ABDOMEN COMPLETE CLINICAL INDICATION: Constipation, pain. COMPARISON: CT abdomen/pelvis 11/16/2021. TECHNIQUE: 2 views of the abdomen. FINDINGS: Nonspecific prominent loops of small bowel in the mid to left lower abdomen measuring up to 3.6 cm in diameter. Mild amount of stool burden projecting over the cecum. Moderate sized rectal stool ball. Suspect hepatomegaly. Included lung bases are clear. No acute osseous findings. Degenerative changes in both hips. Scattered atherosclerotic disease. XR/XR abdomen min 2V IMPRESSION: 1. Nonspecific prominent loops of small bowel in the mid to left lower abdomen. 2. Moderate sized rectal stool ball. 3. Suspect hepatomegaly. Correlation with abdominal ultrasound could be obtained as clinically deemed appropriate.
--- NOTE | ~2023-02-07 | CT_ITS ---
EXAMINATION: CT PELVIS WITHOUT CONTRAST CLINICAL INFORMATION: rectal pain s/p hemorrhoidectomy r/o abscess COMPARISON: CT abdomen pelvis 11/16/2021 TECHNIQUE: Helical scanning was performed with submillimeter collimation through the pelvis. Sagittal and coronal multiplanar 2-D reconstructions were obtained. This CT examination was performed using dose optimization techniques as appropriate, variously including the following: *Automated exposure control *Adjustment of mA and/or kV according to patient size (this includes techniques or standardized protocols for targeted exams where dose is matched to indication/reason for exam; i.e. extremities or head) *Use of iterative reconstruction technique DLP: 387 mGy-cm FINDINGS: There is marked thickening of the rectal wall with alternating areas of high and low density consistent with hemorrhage which is a new finding when compared to the 11/16/2021 CT. No extraluminal blood is seen. No ascites or hemoperitoneum. An anteverted uterus is present which appears unremarkable. An abnormal adnexal mass is not seen. Some faint calcifications in the uterus may be secondary to fibroids. Similar findings were seen on the 11/16/2021 study. A abscess is not seen. Marked calcification is seen in the aorta and iliofemoral vessels. CT/CT pelvis wo IV con IMPRESSION: Marked thickening of the rectal wall with alternating areas of high and low density consistent with mural hemorrhage which is a new finding when compared to the 11/16/2021 study. No evidence of a pelvic or perirectal abscess.
[2023-02-07 16:12] VITALS: BP 151/61; BP 156/75; PULSE 61; PULSE 64; RESP 20; TEMP 36.4; O2SAT 96; O2SAT 98; BMI 28.4
--- NOTE | 2023-02-07 16:42 | ED_ITS ---
HPI - General Adult General Chief complaint: General Medical Stated complaint: bleeding from hemorrhoids, per ems Time Seen by Provider: 02/07/23 16:16 Source: patient and family Mode of arrival: ambulatory Limitations: no limitations History of Present Illness HPI narrative: 68 yo female with PMH HTN, ESRD on HD, DM, recent hemorrhoid surgery presents with knee pain and rectal bleeding Dr. Kline surgery 1 week ago. Since pain moderate. Bleeding daily. Pain and bleeding worsening over the past 24 hours. Pain in rectal area. No clear relieving or exacerbating features. Pain is achy and burning. Pain does not radiate. Today toilet bowel filled with BRBPR. Has weakness but did have HD today. Bilateral knee pain. Moderate. Worse with ambulation. No radiation. No trauma, swelling. Related Data Home Medications Medication Instructions Recorded Confirmed ferrous sulfate 325 mg (65 mg 325 mg PO BIDWM 06/10/20 01/25/23 iron) tablet hydralazine 10 mg tablet 10 mg PO BID 06/10/20 01/25/23 pantoprazole 40 mg tablet,delayed 40 mg PO DAILY@0630 06/10/20 01/25/23 release sertraline 100 mg tablet 150 mg PO DAILY 06/10/20 01/25/23 ascorbic acid (vitamin C) 500 mg 1 tab PO BID 12/03/20 01/25/23 tablet (Vitamin C) montelukast 10 mg tablet 1 tab PO BEDTIME 12/03/20 01/25/23 furosemide 40 mg tablet 120 mg PO BID 05/06/21 01/25/23 albuterol sulfate 90 mcg/actuation 2 puff inhalation Q4-6H PRN 07/11/21 01/25/23 aerosol inhaler (ProAir HFA) Shortness Of Breath fluticasone propionate 110 2 puff inhalation BID 07/11/21 01/25/23 mcg/actuation HFA aerosol inhaler (Flovent HFA) cetirizine 5 mg tablet 5 mg PO DAILY 10/27/21 01/25/23 cholecalciferol (vitamin D3) 25 25 mcg PO DAILY 11/23/22 01/25/23 mcg (1,000 unit) capsule insulin aspart U-100 100 unit/mL See Rx Instructions .Route .COMPLEX 01/25/23 01/25/23 (3 mL) subcutaneous pen (Novolog FlexPen U-100 Insulin aspart) insulin glargine 100 unit/mL (3 7 unit subcut QAM 01/25/23 01/25/23 mL) subcutaneous pen (Lantus Solostar U-100 Insulin) sevelamer carbonate 800 mg tablet 1,600 mg PO TID 01/25/23 01/25/23 Previous Rx's Medication Instructions Recorded insulin glargine 100 unit/mL (3 6 unit (0.06 mL) subcut BEDTIME #0 12/03/21 mL) subcutaneous pen (Lantus mL Solostar U-100 Insulin) ezetimibe 10 mg tablet 10 mg PO QAM #90 tabs 03/21/22 carvedilol 6.25 mg tablet 6.25 mg PO BID 90 days #180 tabs 03/25/22 atorvastatin 80 mg tablet 80 mg PO BEDTIME #90 tabs 08/17/22 aspirin 81 mg tablet,delayed 81 mg PO BEDTIME 90 days #90 tabs 11/08/22 release alirocumab 75 mg/mL subcutaneous 75 mg subcut Q2W #2 mL 12/05/22 pen injector (Praluent Pen) amlodipine 10 mg tablet 10 mg PO DAILY 90 days #90 tabs 12/06/22 hydrocodone 5 mg-acetaminophen 325 1 tab PO Q6-8H PRN pain #30 tabs 01/30/23 mg tablet Allergies Allergy/AdvReac Type Severity Reaction Status Date / Time No Known Allergies Allergy Verified 01/11/23 10:13 Review of Systems Review of Systems: CONSTITUTIONAL: Denies weight loss, fever and chills. HEENT: Denies changes in vision and hearing. RESPIRATORY: Denies SOB and cough. CV: Denies palpitations no CP. GI: Denies abdominal pain, nausea, vomiting and diarrhea. : Denies dysuria and urinary frequency. MSK: Denies myalgia + joint pain. SKIN: Denies rash and pruritus. NEUROLOGICAL: Denies headache and syncope. PSYCHIATRIC: Denies recent changes in mood. Denies anxiety and depression. 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 Hypercalcemia SHELIA (obstructive sleep apnea) Other and unspecified hyperlipidemia Type 2 diabetes mellitus with unspecified complications Surgical History H/O angioplasty H/O colonoscopy Hemorrhoids History of coronary artery bypass graft (~2018) History of hemorrhoidectomy (01/30/23) History of tubal ligation Family History Family History Father Cardiovascular disease Hypertension Mother Cardiovascular disease Hypertension Social History Social History Household Members: Other Household Members Other:: son Housing: Apartment Housing Other:: senior apartment Are you a primary senior care provider to a significant other at home: No Do you presently have visiting nurse or other home services: Yes ([facility]) Alcohol intake: never Patient Tobacco Use Status: Never used Tobacco Smoked in Last 30 Days: No Use of substances other than those prescribed or required for medical reasons: No Advance Directives: Yes Advance Directives on File: Yes Advance Directives Date on File: 12/03/20 service: No 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al status: disabled Physical Exam ED Vital Signs: Vital Signs - 24 hr 02/07/23 16:12 02/07/23 17:02 02/07/23 19:02 Temperature 97.5 F 99.0 F Pulse Rate 64 72 Respiratory Rate 20 20 36 H Blood Pressure 151/61 H 157/62 H Pulse Oximetry 96 100 Oxygen Delivery Method Room Air Room Air 02/07/23 19:14 02/07/23 20:27 02/07/23 20:44 Temperature Pulse Rate 71 Respiratory Rate 36 H 18 18 Blood Pressure 149/59 H Pulse Oximetry 99 Oxygen Delivery Method Room Air BMI result Body Mass Index 28.4 GEN: Well developed, no acute distress, alert, oriented, weak appearing HEENT: Normocephalic, atraumatic, normal external ears, nose appears normal, no oropharyngeal edema or exudates Eyes: Normal to appearance Neck: Supple, no lymphadenopathy Respiratory: Talks in complete sentences, no respiratory distress, clear to auscultation bilaterally Cardiovascular: Regular rate and rhythm, no murmurs rubs or gallops Abdomen: Soft, nontender, nondistended, no guarding, no rebound Rectal: no active bleeding residula hemorrhoidal tissue noted. No sigifredo abscess or purulent drainage Back: No CVA tenderness Extremities: No clubbing cyanosis or edema Neurologic: No focal neurologic deficits, cranial nerves 2-12 intact, strength is 5/5 bilaterally Skin: No rash VASC: HD catheter right upper chest Course Reevaluation(s) Reevaluation #1: Patient with increasing bleeding, HD stable, H&H stable. Will be admitting. Let Dr. Kline know. Also allerted Dr. Varghese CURRIE through [facility]. Time: 19:37 Reevaluation #2: [place] with Dr. Kline, patient will be admitted for observation for GI bleed, rectal pain. Discussed results with the patient and family. Time: 22:09 Medications Administered Generic Name Dose Route Start Last Admin Trade Name Freq PRN Reason Stop Dose Admin Sodium Chloride 500 mls @ 50 mls/hr 02/07/23 19:45 02/07/23 20:00 Ns IV 02/08/23 05:44 Not Given .Q10H ROSANA Discontinued Medications Generic Name Dose Route Start Last Admin Trade Name Freq PRN Reason Stop Dose Admin Acetaminophen 975 mg 02/07/23 16:31 02/07/23 17:03 Acetaminophen 325 Mg Tablet PO 02/07/23 16:32 975 mg ONCE ONE Administration Gabapentin 300 mg 02/07/23 16:31 02/07/23 17:02 Gabapentin 300 Mg Capsule PO 02/07/23 16:32 300 mg ONCE ONE Administration Hydromorphone HCl 0.5 mg 02/07/23 20:14 02/07/23 20:27 Hydromorphone Hcl 0.5 Mg/0.5 Ml Syringe IVPUSH 02/07/23 20:15 0.5 mg ONCE ONE Administration Protocol Morphine Sulfate 4 mg 02/07/23 18:51 02/07/23 19:14 Morphine Sulfate 4 Mg/Ml Cartridge IVPUSH 02/07/23 18:52 4 mg ONCE ONE Administration Protocol Oxycodone HCl 5 mg 02/07/23 17:46 02/07/23 17:56 Oxycodone Hcl Immed Release 5 Mg Tablet PO 02/07/23 17:47 5 mg ONCE ONE Administration Medical Decision Making Medical Decision Making MDM Narrative: Rectal Bleeding: DD: hemorrhoidal, diverticular, Lower GI, AVM Plan: CBC,PT PTT, CT pelvis Bilateral knee pain, no obvious acute issues, not trauma, plan pain management Differential Diagnosis Differential Diagnoses: The differential diagnosis associated with the presentation includes (See above) Admission/Observation Consideration of admission/observation: Escalation of care including admission/observation considered (If CBC significantly low or active hemorrhage) Lab Data MDM Lab Attestation statement: I reviewed the patient's lab results. 02/07/23 19:06 02/07/23 19:06 Labs: Lab Results 02/07/23 02/07/23 02/07/23 Range/Units 19:06 19:06 20:13 WBC 8.1 (4.8-10.8) X10*3/uL RBC 3.82 L (4.20-5.50) X10*6/uL Hgb 11.5 L (12.0-16.0) g/dl Hct 34.7 L (37.0-47.0) % MCV 90.8 (80.0-98.0) fL MCH 30.1 (27.0-33.0) pg MCHC 33.1 (31.0-35.0) g/dl RDW 14.6 (11.0-16.0) % Plt Count 322 D (160-400) X10*3/uL MPV 9.8 (9.4-12.3) fL Immature Gran % (Auto) 0.6 H (0.0-0.4) % Neut % (Auto) 75.8 H (45-73) % Lymph % (Auto) 16.5 L (20-40) % Armstrong % (Auto) 6.0 (2-11) % Eos % (Auto) 0.6 (0-4) % Baso % (Auto) 0.5 (0-2) % Lymph # (Auto) 1.3 (1.2-4.9) X10*3/uL Armstrong # (Auto) 0.5 (0.1-1.2) X10*3/uL Eos # (Auto) 0.1 (0.0-0.4) X10*3/uL Baso # (Auto) 0.0 (0.0-0.2) X10*3/uL Abs Immat Gran (auto) 0.05 H (0.00-0.03) X10*3/uL Absolute Neuts (auto) 6.2 (2.0-8.3) x10*3/uL Absolute Nucleated RBC 0.000 (0.0-0.012) X10*3/uL Nucleated RBC % (auto) 0.0 (0.0-0.2) /100WBC PT (10.0-13.1) SEC INR (0.9-1.1) APTT (26.0-36.4) SEC Sodium 137 (135-145) mmol/L Potassium 3.7 (3.3-5.1) mmol/L Chloride 93 L (96-108) mmol/L Carbon Dioxide 22 (22-29) mmol/L Anion Gap 26 H (12-20) BUN 14 (9-16) mg/dL Creatinine 4.12 H* (0.5-1.4) mg/dL Estim Creat Clear Calc 10.3 Estimated GFR 11 Random Glucose 146 H (60-115) mg/dL Calcium 11.3 H (8.4-10.2) mg/dL Blood Type B Positive Antibody Screen NEGATIVE 02/07/23 02/07/23 Range/Units 20:16 20:16 WBC (4.8-10.8) X10*3/uL RBC (4.20-5.50) X10*6/uL Hgb (12.0-16.0) g/dl Hct (37.0-47.0) % MCV (80.0-98.0) fL MCH (27.0-33.0) pg MCHC (31.0-35.0) g/dl RDW (11.0-16.0) % Plt Count (160-400) X10*3/uL MPV (9.4-12.3) fL Immature Gran % (Auto) (0.0-0.4) % Neut % (Auto) (45-73) % Lymph % (Auto) (20-40) % Armstrong % (Auto) (2-11) % Eos % (Auto) (0-4) % Baso % (Auto) (0-2) % Lymph # (Auto) (1.2-4.9) X10*3/uL Armstrong # (Auto) (0.1-1.2) X10*3/uL Eos # (Auto) (0.0-0.4) X10*3/uL Baso # (Auto) (0.0-0.2) X10*3/uL Abs Immat Gran (auto) (0.00-0.03) X10*3/uL Absolute Neuts (auto) (2.0-8.3) x10*3/uL Absolute Nucleated RBC (0.0-0.012) X10*3/uL Nucleated RBC % (auto) (0.0-0.2) /100WBC PT 12.9 (10.0-13.1) SEC INR 1.1 (0.9-1.1) APTT 29.0 (26.0-36.4) SEC Sodium (135-145) mmol/L Potassium (3.3-5.1) mmol/L Chloride (96-108) mmol/L Carbon Dioxide (22-29) mmol/L Anion Gap (12-20) BUN (9-16) mg/dL Creatinine (0.5-1.4) mg/dL Estim Creat Clear Calc Estimated GFR Random Glucose (60-115) mg/dL Calcium (8.4-10.2) mg/dL Blood Type Antibody Screen Independent Interpretation I performed an independent interpretation of an: CT Scan Radiology Impression Discussion of test interpretation with radiology: I have reviewed the radiologist's reading. Radiologist Impression: CT/CT pelvis wo IV con IMPRESSION: Marked thickening of the rectal wall with alternating areas of high and low density consistent with mural hemorrhage which is a new finding when compared to the 11/16/2021 study. No evidence of a pelvic or perirectal abscess. ? Dictated By: Elier Pool MD Signed By: <Electronically signed by Elier Pool MD in OV> 02/07/232045 I independently reviewed the images of the pelvis and agree with Radiology interpretation. Independent Historian Clinical information obtained from an independent historian. History obtained from or confirmed by: Other ([facility]) External Record Review External record reviewed: Other (Surgical Report - hemorrhoid) Prescription Management I considered prescription management with: Pain Medication and Antibiotic Discharge Plan Discharge Clinical Impression: Acute lower gastrointestinal bleeding, Acute bilateral knee pain Patient Disposition: Admitted as Observation Prescriptions: No Action ezetimibe 10 mg tablet 10 mg PO QAM Qty: 90 3RF carvedilol 6.25 mg tablet 6.25 mg PO BID 90 Days Qty: 180 3RF Rx Instructions: must administer with a meal/food atorvastatin 80 mg tablet 80 mg PO BEDTIME Qty: 90 3RF aspirin 81 mg tablet,delayed release (DR/EC) 81 mg PO BEDTIME 90 Days Qty: 90 3RF Praluent Pen 75 mg/mL pen injector 75 mg subcut Q2W Qty: 2 5RF Rx Instructions: inject into abdomen, thigh, or upper arm (deltoid muscle); rotate sites amlodipine 10 mg tablet 10 mg PO DAILY 90 Days Qty: 90 3RF ascorbic acid (vitamin C) [Vitamin C] 500 mg tablet 1 tab PO BID montelukast 10 mg tablet 1 tab PO BEDTIME albuterol sulfate [ProAir HFA] 90 mcg/actuation Hfa Aerosol Inhaler 2 puff INHALATION Q4-6H PRN (Reason: Shortness Of Breath) fluticasone propionate [Flovent HFA] 110 mcg/actuation HFA aerosol inhaler 2 puff inhalation BID insulin glargine [Lantus Solostar U-100 Insulin] 100 unit/mL (3 mL) insulin pen 6 unit subcut BEDTIME Qty: 0 0RF Rx Instructions: Patient states that if her blood sugar is greater than 100 she takes 7 units and if her blood sugar is less than 100 she takes no insulin. insulin aspart U-100 [Novolog FlexPen U-100 Insulin] 100 unit/mL (3 mL) insulin pen See Rx Instructions .ROUTE .COMPLEX Rx Instructions: per sliding scale sevelamer carbonate 800 mg tablet 1,600 mg PO TID insulin glargine [Lantus Solostar U-100 Insulin] 100 unit/mL (3 mL) insulin pen 7 unit subcut QAM hydrocodone-acetaminophen 5-325 mg tablet 1 tab PO Q6-8H PRN (Reason: pain) Qty: 30 0RF Rx Instructions: Partial Fill upon patient request. hydralazine 10 mg tablet 10 mg PO BID ferrous sulfate 325 mg (65 mg iron) tablet 325 mg PO BIDWM pantoprazole 40 mg tablet,delayed release (DR/EC) 40 mg PO DAILY@0630 sertraline 100 mg tablet 150 mg PO DAILY furosemide 40 mg tablet 120 mg PO BID cholecalciferol (vitamin D3) 25 mcg (1,000 unit) capsule 25 mcg PO DAILY cetirizine 5 mg tablet 5 mg PO DAILY
[2023-02-07 17:02] VITALS: RESP 20
[2023-02-07] MEDS: Gabapentin 300 MG CAPSULE PO (17:02)
[2023-02-07] MEDS: Acetaminophen 325 MG TABLET 975 MG PO (17:03)
[2023-02-07] MEDS: oxyCODONE HCl Immed Release 5 MG TABLET PO (17:56)
--- NOTE | 2023-02-07 18:25 | PC.NURSE ---
pt a&o x4, anxious/wailing in pain but cooperative. kyrgyz speaking only, family at bedside helps interpret. purewick placed for pt comfort and to obtain ua. pt has moderate amount of rectal bleeding, given maria m pad and brief. pt medicated per mar and given heat pack for pain management. awaiting CT scan results, vss, wctm
[2023-02-07 19:02] VITALS: BP 157/62; PULSE 72; RESP 36; TEMP 37.2; O2SAT 100
[2023-02-07 19:13] LABS: MANUAL DIFF FLAG NO
[2023-02-07 19:14] VITALS: RESP 36
[2023-02-07] MEDS: Morphine Sulfate 4 MG/ML CARTRIDGE IVPUSH (19:14)
[2023-02-07 19:16] LABS: Basophils Percent Auto 0.5 % (0-2); Eosinophils Absolute Auto 0.1 X10*3/uL (0.0-0.4); Eosinophils Percent Auto 0.6 % (0-4); Hematocrit 34.7 % (37.0-47.0); Hemoglobin 11.5 g/dl (12.0-16.0); Imm Gran Abs Auto 0.05 X10*3/uL (0.00-0.03); Imm Gran Pct Auto 0.6 % (0.0-0.4); Lymphocytes Absolute Auto 1.3 X10*3/uL (1.2-4.9); Lymphocytes Percent Auto 16.5 % (20-40); Mean Corpuscular HGB Conc 33.1 g/dl (31.0-35.0); Mean Corpuscular Hemoglobin 30.1 pg (27.0-33.0); Mean Corpuscular Volume 90.8 fL (80.0-98.0); Mean Platelet Volume 9.8 fL (9.4-12.3); Monocytes Absolute Auto 0.5 X10*3/uL (0.1-1.2); Neutrophils Absolute Auto 6.2 x10*3/uL (2.0-8.3); Neutrophils Percent Auto 75.8 % (45-73); Platelet Count 322 X10*3/uL (160-400); Red Blood Count 3.82 X10*6/uL (4.20-5.50); Red Cell Distribution Width 14.6 % (11.0-16.0); White Blood Count 8.1 X10*3/uL (4.8-10.8)
[2023-02-07 19:47] LABS: Anion Gap 26 (12-20); Blood Urea Nitrogen 14 mg/dL (9-16); Calcium 11.3 mg/dL (8.4-10.2); Carbon Dioxide 22 mmol/L (22-29); Chloride 93 mmol/L (96-108); Creatinine Clr Calc Pharmacy 10.3; Estimated Glomerular Filt Rate 11; Glucose Random 146 mg/dL (60-115); Potassium 3.7 mmol/L (3.3-5.1); Sodium 137 mmol/L (135-145)
--- NOTE | 2023-02-07 20:03 | PC.NURSE ---
pt was checked to see if purewick was in correct place after pt was moving in stretcher to ease belly pain. it was noted that there was a significant amount of blood that had saturated through the maria m pad and to the bed pad. pt still no pain relief from multiple medications administrations per mar. pt appeared to be very warm, slightly pale, and shaking. this RN brought Dr. Fermin into the pt's room to see the amount of blood loss before cleaning up and changing the pt. additional pain medication and labs were ordered and administered per sep. on cleaning the pt, multiple blood clots were found at the pt's rectum. purewick was removed, bed pads, and maria m pad were placed. multiple coldpacks were given to pt and a single bedsheet for comfort. IV access obtained in right forearm, labs drawn and sent. pt in supine position due to reporting dizziness and amount of blood loss. vss, however. pt placed on monitor. wctm
[2023-02-07 20:27] VITALS: RESP 18
[2023-02-07] MEDS: HYDROmorphone HCl 0.5 MG/0.5 ML SYRINGE IVPUSH (20:27)
[2023-02-07 20:28] LABS: INTERNATIONAL NORM RATIO 1.1 (0.9-1.1); Prothrombin Time 12.9 SEC (10.0-13.1)
[2023-02-07 20:44] VITALS: BP 149/59; PULSE 71; RESP 18; O2SAT 99
[2023-02-07] MEDS: 0.9 % Sodium Chloride 500 ML 50 ML IV (22:30)
--- NOTE | 2023-02-07 23:53 | PC.NURSE ---
pt arrived via Main ED, pt c/o pain with movement, small amount of bright red blood at rectum
[2023-02-08] VITALS (15 sets, daily range): BP systolic 83–149; BP diastolic 39–64; PULSE 65–85; RESP 12–20; TEMP 36–36.6; O2SAT 94–100; BMI 28.3
[2023-02-08] MEDS: 0.9 % Sodium Chloride Flush 3 ML SYRINGE IVFLUSH ×2 (00:16→21:11)
[2023-02-08] MEDS: HYDROmorphone HCl 1 MG/ML SYRINGE 0.5 MG IVPUSH ×2 (04:01→21:00)
--- NOTE | 2023-02-08 04:36 | PC.NURSE ---
pt c/o rectum pain, medicated with dilaudid ivp
--- NOTE | 2023-02-08 09:28 | PM.HPGS ---
History of Present Illness History of Present Illness Date of Service: 02/09/23 Chief complaint: Post op pain. Patient is a 68-year-old female wit Narrative: Joslyn Padilla is a 68 year old female with a plethora of medical problems including end-stage renal disease , for which she underwent hemodialysis yesterday. Patient is approximate 8 days postop status post hemorrhoidectomy for extensive hemorrhoidal disease. She presented to the emergency department today with a collection of complaints including headache, anorectal pain at site of surgery, and passages of some bright red blood/clots per rectum. Chart was reviewed and patient evaluated. Patient underwent extensive workup emergency department including CT scan which demonstrated no intra-abdominal pathology. There is findings of rectal hematoma. In ER, her hemodynamics were stable as were her H&H. There is concern of postop bleeding at the surgical site, possibly related to the anticoagulation during her hemodialysis. Also possible, but less likely, are the usual other etiologies for lower GI bleed. 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 Hypercalcemia SHELIA (obstructive sleep apnea) Other and unspecified hyperlipidemia Type 2 diabetes mellitus with unspecified complications Family History Family History Father Cardiovascular disease Hypertension Mother Cardiovascular disease Hypertension Surgical History Surgical History H/O angioplasty H/O colonoscopy Hemorrhoids History of coronary artery bypass graft (~2018) History of hemorrhoidectomy (01/30/23) History of tubal ligation Social History Social History Household Members: Other Household Members Other:: son Housing: Apartment Housing Other:: senior apartment Are you a primary director of primary care to a significant other at home: No Do you presently have visiting nurse or other home services: Yes ([facility]) Alcohol intake: never Patient Tobacco Use Status: Never used Tobacco Smoked in Last 30 Days: No Use of substances other than those prescribed or required for medical reasons: No Are you DNR?: No Advance Directives: Yes Advance Directives on File: Yes Advance Directives Date on File: 12/03/20 service: No 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al status: disabled Meds Allergies Allergy/AdvReac Type Severity Reaction Status Date / Time No Known Allergies Allergy Verified 01/11/23 10:13 Active Medications: Current Medications Acetaminophen (Acetaminophen Supp 650 Mg Supp.Rect) 650 mg OR Q6H PRN PRN Reason: Pain, Mild (Pain Scale 1-3) Acetaminophen/Codeine Phosphate (Acetaminophen With Codeine # 3 Tablet) 1 tab PO Q4H PRN PRN Reason: Pain, Mild (Pain Scale 1-3) Hydromorphone HCl (Hydromorphone Hcl 1 Mg/Ml Syringe) 0.5 mg IVPUSH Q4H PRN; Protocol PRN Reason: Pain, Severe (Pain Scale 7-10) Last Admin: 02/08/23 04:01 Dose: 0.5 mg Sodium Chloride (0.9 % Sodium Chloride Flush 3 Ml Syringe) 3 ml IVFLUSH [facility] Last Admin: 02/08/23 07:24 Dose: Not Given Home Medications Medication Instructions Recorded Confirmed Last Taken Type ferrous sulfate 325 mg (65 mg 325 mg PO BIDWM 06/10/20 02/08/23 11/28/21 History iron) tablet hydralazine 10 mg tablet 10 mg PO BID 06/10/20 02/08/23 11/28/21 History pantoprazole 40 mg tablet,delayed 40 mg PO DAILY@0630 06/10/20 02/08/23 11/28/21 History release sertraline 100 mg tablet 150 mg PO DAILY 06/10/20 02/08/23 11/28/21 History ascorbic acid (vitamin C) 500 mg 1 tab PO BID 12/03/20 02/08/23 11/28/21 History tablet (Vitamin C) montelukast 10 mg tablet 1 tab PO BEDTIME 12/03/20 02/08/23 11/28/21 History furosemide 40 mg tablet 120 mg PO BID 05/06/21 02/08/23 11/28/21 History cetirizine 5 mg tablet 5 mg PO DAILY 10/27/21 02/08/23 11/28/21 History insulin glargine 100 unit/mL (3 8 unit subcut QAM 01/25/23 02/08/23 Unknown History mL) subcutaneous pen (Lantus Solostar U-100 Insulin) sevelamer carbonate 800 mg tablet 1,600 mg PO TID 01/25/23 02/08/23 Unknown History acetaminophen 500 mg tablet 1,000 mg PO Q8H PRN Pain 02/08/23 02/08/23 Unknown History benzonatate 200 mg capsule 200 mg PO BID PRN cough 02/08/23 02/08/23 Unknown History budesonide-formoterol HFA 80 2 puff inhalation BID 02/08/23 02/08/23 Unknown History mcg-4.5 mcg/actuation aerosol inhaler (Symbicort) cyanocobalamin (vitamin B-12) 1,000 mcg IM QMONTH 02/08/23 02/08/23 Unknown History 1,000 mcg/mL injection solution insulin glargine 100 unit/mL (3 7 unit subcut BEDTIME 02/08/23 02/08/23 Unknown History mL) subcutaneous pen (Lantus Solostar U-100 Insulin) lidocaine 5 % topical ointment 1 appl topical DAILY PRN Pain 02/08/23 02/08/23 Unknown History Physical Exam Vital Signs: Vital Signs: Last Vital Signs Temp 97.9 F 02/08/23 06:20 Pulse 77 02/08/23 06:20 Resp 18 02/07/23 20:44 BP 149/64 H 02/08/23 06:20 Pulse Ox 94 02/08/23 06:20 O2 Del Method Room Air 02/08/23 06:20 BMI result Body Mass Index 28.4 Const: Other: Oblique female in significant anorectal discomfort. Chest: Other: Chest breath sounds bilaterally, HS 1 in 2 GI: Other: Abdomen soft, benign Rectal exam demonstrates an appreciable clot which was evacuated from her rectum. Because significant patient's anorectal discomfort/pain at her surgery site, exam was somewhat limited. Results Results Labs: Short CBC 02/07/23 Range/Units 19:06 WBC 8.1 (4.8-10.8) X10*3/uL Hgb 11.5 L (12.0-16.0) g/dl Hct 34.7 L (37.0-47.0) % Plt Count 322 D (160-400) X10*3/uL BMP 02/07/23 19:06 Sodium 137 Potassium 3.7 Chloride 93 L Carbon Dioxide 22 BUN 14 Creatinine 4.12 H* Calcium 11.3 H Assessment and Plan (1) Acute lower gastrointestinal bleeding: Status: Acute Current plan, along with general restorative measures, is to arrange for EUA, to evaluate for source of bleeding. Because of a prior obligation which I have for today, Dr. Zuñiga will undertake this for me today. Further interventions and studies will be directed by the results of the above-mentioned procedure. Plan Lower GI bleed most likely from recent hemorrhoidal surgery. Current plan is to evaluate the patient with EUA in the OR and confirm and address surgical site bleeding or rule out other etiology . Time Spent With Patient Time: Total time managing care of this patient today ____ minutes. Quality Stroke Does the patient have a stroke diagnosis?: No VTE Prior VTE?: No VTE Risk Level:: Surgical - low VTE Device Contraindication: Treatment Not Indicated VTE Drug Contraindication: Treatment Not Indicated Procedures Date of Service Date of Service: 02/09/23
--- NOTE | 2023-02-08 09:30 | PHA.MEDREC ---
Pharmacy Consult ? Medication Reconciliation Pharmacy has completed the medication reconciliation. Patient is a medbox patient from [facility]. Received update list from [facility]. Nasreen Scott, PardeepD
--- NOTE | 2023-02-08 11:29 | MHC.CM.PN ---
Attempted to meet with patient in regards to discharge planning. Patient is currently sleeping. Patient's son, Parrish, is at bedside. Discussed discharge planning with Parrish with the help of edge stitcher. Patient lives with her son (Parrish's brother), uses a walker/cane for mobility, has [employer] hours through [facility], goes to [facility] on , , and Sat, and is active with [facility]. Parrish is not sure what agency patient uses. PCP verified. Copy of HCP verified to be on file. Patient received 3 Moderna vaccines and 1 Pfizer vaccine. Patient will need BLS transport at d/c. Patient will not return home at discharge. She has been staying with a family member at [address] [place] [address] in [place] because there aren't any stairs. Patient will return there when medically stable. Obs notice explained and signed. Continue to monitor for d/c needs.
--- NOTE | 2023-02-08 11:42 | PM.EVENT ---
Event Note Date of Service: 02/14/23 Event Note: History reviewed 68F witrh ESRD, on HD, underwent hemorrhoidectomy x 3 columns last week with Dr. Eliud Prtat used as per son, the patient has had periodic bleeding since then; she udnerwent hemodialysis yesterday and then started to have heavier bleeding with bright blood and clots also has had pain unable to tolerate exam no active bleeding right now but a lot of clots and blood documented earlier Hg stable I explained to family technique of EUA, possible oversew of bleeders, poss. flex sig I explained risks incl but not limited to further bleeding, infections, pain, inherent risks of anesthesia incl CVA, [place] the son is at bedside and has given consent Time Spent With Patient Time: Total time managing care of this patient today ____ minutes.
[2023-02-08 12:55] LABS: Glucose, Whole Blood 91 mg/dL (60-115)
--- NOTE | 2023-02-08 13:54 | HO.ANESPROP2 ---
HPI - Anesthesia Eval Consult details Narrative: Rectal bleed following hemorrhoidectomy PMFSH Active Problems Active Problems: All Active Problems (Updated 02/08/23 @ 00:28 by Venkat Bynum) Acute lower gastrointestinal bleeding (Acute) Acute bilateral knee pain (Acute) Status post coronary artery bypass graft (Acute) Abnormal echocardiogram (Acute) Essential hypertension (Acute) ESRD (end stage renal disease) on dialysis (Acute) Pneumonia (Acute) Pleural effusion (Acute) Depression with anxiety (Acute) Panic disorder (Acute) GERD (gastroesophageal reflux disease) (Acute) Diabetic retinopathy (Acute) Pernicious anemia (Acute) Anemia of chronic disease (Acute) Preop examination (Acute) Colon cancer screening (Acute) Osteoarthritis of left shoulder (Acute) Rotator cuff tendonitis (Acute) HPV in female (Acute) Hemorrhoids (Acute) Hypercalcemia (Acute) Essential hypertension (Acute) Edema (Acute) DJD (degenerative joint disease) (Acute) Chronic kidney disease (Acute) Asthma (Acute) Type 2 diabetes mellitus with unspecified complications (Acute) Other and unspecified hyperlipidemia (Acute) SHELIA (obstructive sleep apnea) (Acute) Past Medical History Medical History Asthma Atherosclerotic cardiovascular disease Chronic kidney disease DJD (degenerative joint disease) Edema End stage chronic kidney disease Essential hypertension GERD (gastroesophageal reflux disease) 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 Hypercalcemia SHELIA (obstructive sleep apnea) Other and unspecified hyperlipidemia Type 2 diabetes mellitus with unspecified complications Family History Family History Father Cardiovascular disease Hypertension Mother Cardiovascular disease Hypertension Family history of problems with anesthesia: No Surgical History Surgical History H/O angioplasty H/O colonoscopy Hemorrhoids History of coronary artery bypass graft (~2018) History of hemorrhoidectomy (01/30/23) History of tubal ligation History of Problems with Anesthesia: No Social History Social History Household Members: Other Household Members Other:: son Housing: Apartment Housing Other:: senior apartment Are you a primary career guidance counselor to a significant other at home: No Do you presently have visiting nurse or other home services: Yes ([facility]) Alcohol intake: never Patient Tobacco Use Status: Never used Tobacco Smoked in Last 30 Days: No Use of substances other than those prescribed or required for medical reasons: No Are you DNR?: No Advance Directives: Yes Advance Directives on File: Yes Advance Directives Date on File: 12/03/20 service: No 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al status: disabled Meds Allergies Allergy/AdvReac Type Severity Reaction Status Date / Time No Known Allergies Allergy Verified 01/11/23 10:13 Active Medications: Current Medications Acetaminophen (Acetaminophen Supp 650 Mg Supp.Rect) 650 mg NV Q6H PRN PRN Reason: Pain, Mild (Pain Scale 1-3) Acetaminophen/Codeine Phosphate (Acetaminophen With Codeine # 3 Tablet) 1 tab PO Q4H PRN PRN Reason: Pain, Mild (Pain Scale 1-3) Amlodipine Besylate (Amlodipine Besylate 10 Mg Tablet) 10 mg PO DAILY [facility]; Protocol Atorvastatin Calcium (Atorvastatin Calcium 80 Mg Tablet) 80 mg PO BEDTIME [facility] Carvedilol (Carvedilol 6.25 Mg Tablet) 6.25 mg PO BID [facility]; Protocol Ezetimibe (Ezetimibe 10 Mg Tablet) 10 mg PO DAILY [facility] Last Admin: 02/08/23 11:55 Dose: Not Given Fluticasone/Vilanterol (Fluticasone/Vilanterol 100/25 Blst.W.Dev) 1 puff INHALE DAILY [facility] Furosemide (Furosemide 40 Mg Tablet) 120 mg PO BID [facility]; Protocol Hydralazine HCl (Hydralazine Hcl 10 Mg Tablet) 10 mg PO BID [facility]; Protocol Hydromorphone HCl (Hydromorphone Hcl 1 Mg/Ml Syringe) 0.5 mg IVPUSH Q4H PRN; Protocol PRN Reason: Pain, Severe (Pain Scale 7-10) Last Admin: 02/08/23 04:01 Dose: 0.5 mg Montelukast Sodium (Montelukast Sodium 10 Mg Tablet) 10 mg PO BEDTIME [facility] Omeprazole (Omeprazole 20 Mg Capsule.Dr) 20 mg PO DAILY@30 [facility] Sertraline HCl (Sertraline Hcl 50 Mg Tablet) 150 mg PO DAILY [facility] Sevelamer Carbonate (Sevelamer Carbonate Tablet 800 Mg Tablet) 1,600 mg PO TID [facility] Sodium Chloride (0.9 % Sodium Chloride Flush 3 Ml Syringe) [address] [facility] Last Admin: 02/08/23 07:24 Dose: Not Given Home Medications Medication Instructions Recorded Confirmed Last Taken Type ferrous sulfate 325 mg (65 mg 325 mg PO BIDWM 06/10/20 02/08/23 11/28/21 History iron) tablet hydralazine 10 mg tablet 10 mg PO BID 06/10/20 02/08/23 11/28/21 History pantoprazole 40 mg tablet,delayed 40 mg PO DAILY@0630 06/10/20 02/08/23 11/28/21 History release sertraline 100 mg tablet 150 mg PO DAILY 06/10/20 02/08/23 11/28/21 History ascorbic acid (vitamin C) 500 mg 1 tab PO BID 12/03/20 02/08/23 11/28/21 History tablet (Vitamin C) montelukast 10 mg tablet 1 tab PO BEDTIME 12/03/20 02/08/23 11/28/21 History furosemide 40 mg tablet 120 mg PO BID 05/06/21 02/08/23 11/28/21 History cetirizine 5 mg tablet 5 mg PO DAILY 10/27/21 02/08/23 11/28/21 History insulin glargine 100 unit/mL (3 8 unit subcut QAM 01/25/23 02/08/23 Unknown History mL) subcutaneous pen (Lantus Solostar U-100 Insulin) sevelamer carbonate 800 mg tablet 1,600 mg PO TID 01/25/23 02/08/23 Unknown History acetaminophen 500 mg tablet 1,000 mg PO Q8H PRN Pain 02/08/23 02/08/23 Unknown History benzonatate 200 mg capsule 200 mg PO BID PRN cough 02/08/23 02/08/23 Unknown History budesonide-formoterol HFA 80 2 puff inhalation BID 02/08/23 02/08/23 Unknown History mcg-4.5 mcg/actuation aerosol inhaler (Symbicort) cyanocobalamin (vitamin B-12) 1,000 mcg IM QMONTH 02/08/23 02/08/23 Unknown History 1,000 mcg/mL injection solution insulin glargine 100 unit/mL (3 7 unit subcut BEDTIME 02/08/23 02/08/23 Unknown History mL) subcutaneous pen (Lantus Solostar U-100 Insulin) lidocaine 5 % topical ointment 1 appl topical DAILY PRN Pain 02/08/23 02/08/23 Unknown History Exam Exam Date and Time: February 08, 2023 1354 Height,Weight and Vital Signs: Height 4 ft 11 in Weight 63.8 kg Last Vital Signs Temp 97.9 F 02/08/23 12:40 Pulse 76 02/08/23 12:40 Resp 15 02/08/23 12:40 BP 122/46 L 02/08/23 12:40 Pulse Ox 96 02/08/23 12:40 O2 Del Method Room Air 02/08/23 12:40 Pertinent Lab Results Pertinent Lab Results: Laboratory Tests 02/07/23 02/07/23 02/07/23 19:06 19:06 20:13 WBC 8.1 RBC 3.82 L Hgb 11.5 L Hct 34.7 L MCV 90.8 MCH 30.1 MCHC 33.1 RDW 14.6 Plt Count 322 D MPV 9.8 Immature Gran % (Auto) 0.6 H Neut % (Auto) 75.8 H Lymph % (Auto) 16.5 L [place] % (Auto) 6.0 Eos % (Auto) 0.6 Baso % (Auto) 0.5 Lymph # (Auto) 1.3 [place] # (Auto) 0.5 Eos # (Auto) 0.1 Baso # (Auto) 0.0 Abs Immat Gran (auto) 0.05 H Absolute Neuts (auto) 6.2 Absolute Nucleated RBC 0.000 Nucleated RBC % (auto) 0.0 PT INR APTT Sodium 137 Potassium 3.7 Chloride 93 L Carbon Dioxide 22 Anion Gap 26 H BUN 14 Creatinine 4.12 H* Estim Creat Clear Calc 10.3 Estimated GFR 11 POC Glucose Random Glucose 146 H Calcium 11.3 H Blood Type B Positive Antibody Screen NEGATIVE 02/07/23 02/07/23 02/08/23 20:16 20:16 12:49 WBC RBC Hgb Hct MCV MCH MCHC RDW Plt Count MPV Immature Gran % (Auto) Neut % (Auto) Lymph % (Auto) [place] % (Auto) Eos % (Auto) Baso % (Auto) Lymph # (Auto) [place] # (Auto) Eos # (Auto) Baso # (Auto) Abs Immat Gran (auto) Absolute Neuts (auto) Absolute Nucleated RBC Nucleated RBC % (auto) PT 12.9 INR 1.1 APTT 29.0 Sodium Potassium Chloride Carbon Dioxide Anion Gap BUN Creatinine Estim Creat Clear Calc Estimated GFR POC Glucose 91 Random Glucose Calcium Blood Type Antibody Screen Airway Mallampati Class: IV TM Dist: <=3cm Neck ROM: Limited Heart: rrr Lungs: cta Assessment and Plan Assessment Anesthesia Assessment: Anesthesia Plan Discussed and Chart Reviewed Final Anesthetic Review Family History of Problems with Anesthesia: No History of Problems with Anesthesia: No NPO: Yes ASA Class: IV Final Preanesthetic Review: No Changes in Pt Med Stat, Meds/Allgs Chart Reviewed, Consent Obtained/Reviewed and Anes Risks/Benef Reviewed Patient Risk: High Procedure Risk: Intermediate Anesthetic Plan Anesthetic Plan: MAC: and Agree w/ Assess. and Plan Disposition: Standard PACU
--- NOTE | 2023-02-08 14:59 | P.OP_ITS ---
Operative Note Operative Note Date of Service: 02/08/23 Narrative: Preop Diagnosis: Rectal bleeding, with recent hemorrhoidectomy Postop diagnosis: The same Procedure: Exam under anesthesia, flexible sigmoidoscopy Surgeon: Pankaj Zuñiga MD Findings: There appears to be separation of the hemorrhoidectomy sites with note of raw diffuse mild oozing in the anal canal. There was no active bleeders seen. There were stools in the rectal vault and these were brown with large am ounts of clots. Intraop flexible sigmoidoscopy to level of about 15 cm does not reveal any active bleeding nor fresh blood. There was a lot of brown stools in the distal sigmoid and rectum. The patient is a 68-year-old female, with end-stage renal disease, on hemodialysis, who had undergone hemorrhoidectomy with the use of LigaSure last 01/30/2023. She has had some periodic passage of bright blood per rectum according to the family but she started to have passage of large amounts of clots after dialysis yesterday. She was therefore scheduled for exam under anesthesia today as well as flexible sigmoidoscopy. I examined the technique of this procedure with her family the patient herself. The understood the technique of this procedure as well as the risks, benefits, and alternatives She was brought to the operating room. The anesthesiologist had deemed her to be at high risk for respiratory issues operatively in view of her multiple medical problems so we had planned on doing the procedure in lateral decubitus position. She was placed in left lateral decubitus knee-chest position. The right buttock was retracted with wide tape. A surgical time-out was done. The perianal areas prepped and draped in the usual sterile fashion. I infiltrated the perianal area with lidocaine 1% generously. Examination of the anal orifice revealed that the hemorrhoidectomy sites seem to have with note of diffuse raw areas on both the left and right side. I inserted the cousin retracted examined the anal canal circumferentially. There were large amounts of clots without any active bleeding seen. There was note of some road diffuse oozing the anal canal. There was note of brown stools in the rectal vault. I then proceeded to do a flexible sigmoidoscopy. I was able to advance this to about 15 cm but there was note of a lot of stools so visualization was difficult. There was note of large amounts of clots rectal vault but there was no active bleeding seen. There was no bright blood noted. There were no lesions. In view of large amounts of stools more proximally, I decided to not continue to advance the scope The scope was withdrawn with continued examination of the rest of the rectum. The scope was then withdrawn completely The patient tolerated procedure well. There were no immediate complications. I applied a Gelfoam packing the anal canal. She was transferred to the recovery room with stable vital signs. There was no blood loss from the procedure but there was note of large amounts of clots evacuated from the rectal vault. This may be secondary to reflux of the bleeding from the hemorrhoidectomy sites. However, I cannot entirely rule out a more proximal source so if she continues to have bleeding, she may benefit from colonoscopy with bowel prep.
--- NOTE | 2023-02-08 15:44 | PM.EVENT ---
Event Note Date of Service: 02/08/23 Event Note: Seen postop She underwent under anesthesia and flexible sigmoidoscopy Raw diffuse oozing in the anal canal from separation of the hemorrhoidectomy site Large amounts of clots Brown stools in rectal wall No active bleeding Gelfoam placed Discussed with family over the phone Hold off on anticoagulation for now Time Spent With Patient Time: Total time managing care of this patient today ____ minutes.
[2023-02-08 16:29] LABS: Glucose, Whole Blood 77 mg/dL (60-115)
[2023-02-08 17:40] LABS: Glucose, Whole Blood 97 mg/dL (60-115)
[2023-02-08 20:34] LABS: Glucose, Whole Blood 164 mg/dL (60-115)
[2023-02-08] MEDS: Atorvastatin Calcium 80 MG TABLET PO (20:58)
[2023-02-08] MEDS: Furosemide 40 MG TABLET 120 MG PO (20:58)
[2023-02-08] MEDS: Sevelamer Carbonate Tablet 800 MG TABLET 1600 MG PO (20:59)
[2023-02-08] MEDS: carvediloL 6.25 MG TABLET PO (20:59)
[2023-02-08] MEDS: Montelukast Sodium 10 MG TABLET PO (20:59)
[2023-02-08] MEDS: hydrALAZINE HCl 10 MG TABLET PO (20:59)
[2023-02-08] MEDS: Insulin Lispro 100 UNIT/ML 3 ML VIAL SUBCUT (21:00)
[2023-02-09] VITALS (8 sets, daily range): BP systolic 93–151; BP diastolic 52–76; PULSE 56–65; RESP 16–20; TEMP 36.1–36.7; O2SAT 99
[2023-02-09 06:46] LABS: MANUAL DIFF FLAG NO
[2023-02-09 07:17] LABS: Basophils Percent Auto 0.4 % (0-2); Eosinophils Absolute Auto 0.1 X10*3/uL (0.0-0.4); Imm Gran Abs Auto 0.03 X10*3/uL (0.00-0.03); Imm Gran Pct Auto 0.5 % (0.0-0.4); Lymphocytes Absolute Auto 1.4 X10*3/uL (1.2-4.9); Lymphocytes Percent Auto 25.1 % (20-40); Mean Corpuscular HGB Conc 32.1 g/dl (31.0-35.0); Mean Corpuscular Hemoglobin 30.5 pg (27.0-33.0); Mean Platelet Volume 10.3 fL (9.4-12.3); Monocytes Absolute Auto 0.4 X10*3/uL (0.1-1.2); Neutrophils Absolute Auto 3.5 x10*3/uL (2.0-8.3); Platelet Count 214 X10*3/uL (160-400); Red Cell Distribution Width 15.3 % (11.0-16.0); White Blood Count 5.5 X10*3/uL (4.8-10.8)
[2023-02-09 07:29] LABS: Hemoglobin 6.1 g/dl (12.0-16.0)
[2023-02-09 08:03] LABS: Glucose, Whole Blood 116 mg/dL (60-115)
[2023-02-09] MEDS: Furosemide 40 MG TABLET 120 MG PO ×2 (10:58→22:08)
[2023-02-09] MEDS: Sevelamer Carbonate Tablet 800 MG TABLET 1600 MG PO ×3 (10:58→22:07)
[2023-02-09] MEDS: Sertraline HCL 50 MG TABLET 150 MG PO (10:58)
[2023-02-09] MEDS: Acetaminophen 325 MG TABLET 650 MG PO (10:58)
[2023-02-09] MEDS: Ezetimibe 10 MG TABLET PO (10:59)
[2023-02-09] MEDS: carvediloL 6.25 MG TABLET PO ×2 (10:59→22:07)
[2023-02-09] MEDS: oxyCODONE HCl Immed Release 5 MG TABLET PO (10:59)
[2023-02-09] MEDS: amLODIPine Besylate 10 MG TABLET PO (10:59)
[2023-02-09] MEDS: hydrALAZINE HCl 10 MG TABLET PO ×2 (10:59→22:08)
--- NOTE | 2023-02-09 11:15 | P.CONHOSP_ITS ---
History of Present Illness Data of Consult Service Date: 02/09/23 Primary Care Provider: Unknown Physician HPI Reason for consult: Medical Management Pt is a 68-year-old female with a PMH significant for?with CAD, CABG in 2018, HTN, insulin-dependent diabetes, ESRD on dialysis on Mon//Mon, and hemorrhoids who is admitted to the hospital under General Surgery for flexible sigmoidoscopy for evaluation of rectal bleeding after recent hemorrhoidectomy. 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 Patient reports that yesterday she had a lot of pain on her bottom near rectum, today pain is a little better. States she felt lightheaded and dizzy earlier in the day, but no longer. Feels tired. Has chronic constipation, and notes last bowel movement was a week ago. 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 Hypercalcemia SHELIA (obstructive sleep apnea) Other and unspecified hyperlipidemia Type 2 diabetes mellitus with unspecified complications Family History Father Cardiovascular disease Hypertension Mother Cardiovascular disease Hypertension Surgical History H/O angioplasty H/O colonoscopy Hemorrhoids History of coronary artery bypass graft (~2017) History of hemorrhoidectomy (01/30/23) History of tubal ligation Social History Household Members: Other Household Members Other:: son Housing: Apartment Housing Other:: senior apartment Are you a primary healthcare translator to a significant other at home: No Do you presently have visiting nurse or other home services: Yes ([facility]) Alcohol intake: never Patient Tobacco Use Status: Never used Tobacco Smoked in Last 30 Days: No Use of substances other than those prescribed or required for medical reasons: No Are you DNR?: No Advance Directives: Yes Advance Directives on File: Yes Advance Directives Date on File: 12/03/20 service: No 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al status: disabled Meds Allergies Allergy/AdvReac Type Severity Reaction Status Date / Time No Known Allergies Allergy Verified 01/11/23 10:13 Active Medications: Current Medications Acetaminophen (Acetaminophen 325 Mg Tablet) 650 mg PO Q6H PRN PRN Reason: fever, pain Last Admin: 02/09/23 10:58 Dose: 650 mg Amlodipine Besylate (Amlodipine Besylate 10 Mg Tablet) 10 mg PO DAILY [facility]; Protocol Last Admin: 02/09/23 10:59 Dose: 10 mg Atorvastatin Calcium (Atorvastatin Calcium 80 Mg Tablet) 80 mg PO BEDTIME [facility] Last Admin: 02/08/23 20:58 Dose: 80 mg Carvedilol (Carvedilol 6.25 Mg Tablet) 6.25 mg PO BID [facility]; Protocol Last Admin: 02/09/23 10:59 Dose: 6.25 mg Dextrose (Dextrose 50 % 25 Gm/50 Ml Syringe) 25 gm IVPUSH Q15M PRN; Protocol PRN Reason: per Hypoglycemia Standing Ord. Ezetimibe (Ezetimibe 10 Mg Tablet) 10 mg PO DAILY [facility] Last Admin: 02/09/23 10:59 Dose: 10 mg Fluticasone/Vilanterol (Fluticasone/Vilanterol 100/25 Blst.W.Dev) 1 puff INHALE DAILY [facility] Last Admin: 02/09/23 08:48 Dose: Not Given Furosemide (Furosemide 40 Mg Tablet) 120 mg PO BID [facility]; Protocol Last Admin: 02/09/23 10:58 Dose: 120 mg Glucose (Glucose Gel 15 Gm Gel..Gram.) 15 gm PO Q15M PRN; Protocol PRN Reason: per Hypoglycemia Standing Ord. Hydralazine HCl (Hydralazine Hcl 10 Mg Tablet) 10 mg PO BID [facility]; Protocol Last Admin: 02/09/23 10:59 Dose: 10 mg Hydromorphone HCl (Hydromorphone Hcl 1 Mg/Ml Syringe) 0.5 mg IVPUSH Q4H PRN; Protocol PRN Reason: Pain, Severe (Pain Scale 7-10) Last Admin: 02/08/23 21:00 Dose: 0.5 mg Insulin Human Lispro (Insulin Lispro 100 Unit/Ml 3 Ml Vial) 0 unit SUBCUT QIDACHS [facility]; Protocol Last Admin: 02/09/23 07:59 Dose: Not Given Montelukast Sodium (Montelukast Sodium 10 Mg Tablet) 10 mg PO BEDTIME [facility] Last Admin: 02/08/23 20:59 Dose: 10 mg Omeprazole (Omeprazole 20 Mg Capsule.Dr) 20 mg PO DAILY@0630 [facility] Last Admin: 02/09/23 05:55 Dose: Not Given Oxycodone HCl (Oxycodone Hcl Immed Release 5 Mg Tablet) 5 mg PO Q4H PRN PRN Reason: Pain, Moderate(Pain Scale 4-6) Last Admin: 02/09/23 10:59 Dose: 5 mg Sertraline HCl (Sertraline Hcl 50 Mg Tablet) 150 mg PO DAILY [facility] Last Admin: 02/09/23 10:58 Dose: 150 mg Sevelamer Carbonate (Sevelamer Carbonate Tablet 800 Mg Tablet) 1,600 mg PO TID [facility] Last Admin: 02/09/23 10:58 Dose: 1,600 mg Sodium Chloride (0.9 % Sodium Chloride Flush 3 Ml Syringe) [facility] Last Admin: 02/09/23 07:59 Dose: Not Given Home Medications Medication Instructions Recorded Confirmed Last Taken Type ferrous sulfate 325 mg (65 mg 325 mg PO BIDWM 06/10/20 02/08/23 11/28/21 History iron) tablet hydralazine 10 mg tablet 10 mg PO BID 06/10/20 02/08/23 11/28/21 History pantoprazole 40 mg tablet,delayed 40 mg PO DAILY@0630 06/10/20 02/08/23 11/28/21 History release sertraline 100 mg tablet 150 mg PO DAILY 06/10/20 02/08/23 11/28/21 History ascorbic acid (vitamin C) 500 mg 1 tab PO BID 12/03/20 02/08/23 11/28/21 History tablet (Vitamin C) montelukast 10 mg tablet 1 tab PO BEDTIME 12/03/20 02/08/23 11/28/21 History furosemide 40 mg tablet 120 mg PO BID 05/06/21 02/08/23 11/28/21 History cetirizine 5 mg tablet 5 mg PO DAILY 10/27/21 02/08/23 11/28/21 History insulin glargine 100 unit/mL (3 8 unit subcut QAM 01/25/23 02/08/23 Unknown History mL) subcutaneous pen (Lantus Solostar U-100 Insulin) sevelamer carbonate 800 mg tablet 1,600 mg PO TID 01/25/23 02/08/23 Unknown History acetaminophen 500 mg tablet 1,000 mg PO Q8H PRN Pain 02/08/23 02/08/23 Unknown History benzonatate 200 mg capsule 200 mg PO BID PRN cough 02/08/23 02/08/23 Unknown History budesonide-formoterol HFA 80 2 puff inhalation BID 02/08/23 02/08/23 Unknown History mcg-4.5 mcg/actuation aerosol inhaler (Symbicort) cyanocobalamin (vitamin B-12) 1,000 mcg IM QMONTH 02/08/23 02/08/23 Unknown History 1,000 mcg/mL injection solution insulin glargine 100 unit/mL (3 7 unit subcut BEDTIME 02/08/23 02/08/23 Unknown History mL) subcutaneous pen (Lantus Solostar U-100 Insulin) lidocaine 5 % topical ointment 1 appl topical DAILY PRN Pain 02/08/23 02/08/23 Unknown History Physical Exam Vital Signs and Narrative: Vital Signs: Last Vital Signs Temp 97.0 F 02/09/23 10:33 Pulse 64 02/09/23 10:33 Resp 16 02/09/23 10:33 BP 132/64 02/09/23 10:33 Pulse Ox 100 02/08/23 23:28 O2 Del Method Nasal Cannula 02/08/23 23:28 O2 Flow Rate 2 02/08/23 23:28 FiO2 42 02/08/23 16:50 BMI result Body Mass Index 28.3 General: AOx3, no acute distress, looks tired Resp: CTA bilaterally CVS: S1, S2, regular, 2/6 murmur GI: +BS, NT, no distention Skin: No rash Neuro: Cranial nerves II-XII grossly intact bilaterally. Motor grossly intact bilaterally Extremities: No edema Psych: Appropriate affect Results Labs 02/09/23 06:04 02/07/23 19:06 Labs: Laboratory Results - last 24 hr 02/07/23 02/08/23 02/08/23 20:13 12:49 16:26 MCV MCH MCHC RDW Plt Count MPV Immature Gran % (Auto) Neut % (Auto) Lymph % (Auto) [place] % (Auto) Eos % (Auto) Baso % (Auto) Lymph # (Auto) [place] # (Auto) Eos # (Auto) Baso # (Auto) Abs Immat Gran (auto) Absolute Neuts (auto) Absolute Nucleated RBC Nucleated RBC % (auto) POC Glucose 91 77 Blood Type B Positive Antibody Screen NEGATIVE Crossmatch See Detail 02/08/23 02/08/23 02/09/23 17:36 20:30 06:04 MCV 95.0 MCH 30.5 MCHC 32.1 RDW 15.3 Plt Count 214 D MPV 10.3 Immature Gran % (Auto) 0.5 H Neut % (Auto) 64.0 Lymph % (Auto) 25.1 [place] % (Auto) 8.0 Eos % (Auto) 2.0 Baso % (Auto) 0.4 Lymph # (Auto) 1.4 [place] # (Auto) 0.4 Eos # (Auto) 0.1 Baso # (Auto) 0.0 Abs Immat Gran (auto) 0.03 Absolute Neuts (auto) 3.5 Absolute Nucleated RBC 0.000 Nucleated RBC % (auto) 0.0 POC Glucose 97 164 H Blood Type Antibody Screen Crossmatch 02/09/23 07:56 MCV MCH MCHC RDW Plt Count MPV Immature Gran % (Auto) Neut % (Auto) Lymph % (Auto) [place] % (Auto) Eos % (Auto) Baso % (Auto) Lymph # (Auto) [place] # (Auto) Eos # (Auto) Baso # (Auto) Abs Immat Gran (auto) Absolute Neuts (auto) Absolute Nucleated RBC Nucleated RBC % (auto) POC Glucose 116 H Blood Type Antibody Screen Crossmatch Assessment and Plan (1) Acute lower gastrointestinal bleeding: Status: Acute (2) ESRD (end stage renal disease) on dialysis: Status: Acute Plan Pt is a 68-year-old female with a PMH significant for?with CAD, CABG in 2018, HTN, insulin-dependent diabetes, ESRD on dialysis on Mon//Mon, and hemorrhoids who is admitted to the hospital under General Surgery for flexible sigmoidoscopy for evaluation of rectal bleeding after recent hemorrhoidectomy. 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 Acute GI bleed Patient's H&H 6.1/19.0 earlier today, down from 11 0.5/34.7 2 days prior on 02/07/2023 Patient received 2 units of PRBCs Follow CBC daily Transfuse as necessary End-stage renal disease, dialysis Monday, and Monday Had dialysis today Nephrology consultation Follow BMP Hypertension Pt's BP has been soft likely secondary to blood loss Pt has been transfused 2 units PRBCs, pt now normotensive Continue home meds if pt remains normotensive or hypertensive Hold meds if soft Monitor BP closely Insulin-dependent diabetes type 2 Lantus, sliding scale Diabetic diet CAD Continue statin Hold aspirin d/t acute GI bleed HLD Continue statin, hold alirocumab COPD Does not seem to be in acute exacerbation Continue home inhalers Thank you for allowing us to participate in the care of this patient. Will continue to follow with you. Please let us know if there are any acute complaints or questions. Time Spent With Patient Time: Total time managing care of this patient today ____ minutes.
[2023-02-09 11:29] LABS: Glucose, Whole Blood 114 mg/dL (60-115)
[2023-02-09] MEDS: 0.9 % Sodium Chloride Flush 3 ML SYRINGE IVFLUSH ×2 (14:24→22:15)
[2023-02-09] MEDS: HYDROmorphone HCl 1 MG/ML SYRINGE 0.5 MG IVPUSH (14:24)
--- NOTE | 2023-02-09 14:42 | PM.PNGS ---
Subjective Subjective Date of Service: 02/09/23 Interval history: H/h dropped this morning. 2U PRBC given. Underwent dialysis today. No significant bleeding per clinical staff anesthesiologist. Physical Exam Vital Signs: Vital Signs: Last Vital Signs Temp 98.0 F 02/09/23 11:52 Pulse 65 02/09/23 11:52 Resp 19 02/09/23 14:24 BP 148/62 H 02/09/23 11:52 Pulse Ox 100 02/08/23 23:28 O2 Del Method Nasal Cannula 02/08/23 23:28 O2 Flow Rate 2 02/08/23 23:28 FiO2 42 02/08/23 16:50 BMI result Body Mass Index 28.3 Const: General: comfortable, no acute distress and alert Orientation/consciousness: patient oriented x3 Resp: Effort & Inspection: normal respiratory effort GI: Other: no sigifredo blood or clots noted at rectum; smear of blood on peripad Skin: General skin exam: no rashes or lesions noted Neuro: General: patient oriented x3 Objective Data Active Medications Acetaminophen (Acetaminophen 325 Mg Tablet) 650 mg PO Q6H PRN PRN Reason: fever, pain Last Admin: 02/09/23 10:58 Dose: 650 mg Documented By: COTEMA Amlodipine Besylate (Amlodipine Besylate 10 Mg Tablet) 10 mg PO DAILY [facility]; Protocol Last Admin: 02/09/23 10:59 Dose: 10 mg Documented By: BRISEYDAEMA Atorvastatin Calcium (Atorvastatin Calcium 80 Mg Tablet) 80 mg PO BEDTIME [facility] Last Admin: 02/08/23 20:58 Dose: 80 mg Documented By: REDDY Carvedilol (Carvedilol 6.25 Mg Tablet) 6.25 mg PO BID [facility]; Protocol Last Admin: 02/09/23 10:59 Dose: 6.25 mg Documented By: BRISEYDAEMA Dextrose (Dextrose 50 % 25 Gm/50 Ml Syringe) 25 gm IVPUSH Q15M PRN; Protocol PRN Reason: per Hypoglycemia Standing Ord. Ezetimibe (Ezetimibe 10 Mg Tablet) 10 mg PO DAILY [facility] Last Admin: 02/09/23 10:59 Dose: 10 mg Documented By: COTEMA Fluticasone/Vilanterol (Fluticasone/Vilanterol 100/25 Blst.W.Dev) 1 puff INHALE DAILY [facility] Last Admin: 02/09/23 08:48 Dose: Not Given Documented By: RJ Non-Admin Reason: Off Unit: Surgery Furosemide (Furosemide 40 Mg Tablet) 120 mg PO BID [facility]; Protocol Last Admin: 02/09/23 10:58 Dose: 120 mg Documented By: BRISEYDAEMA Glucose (Glucose Gel 15 Gm Gel..Gram.) 15 gm PO Q15M PRN; Protocol PRN Reason: per Hypoglycemia Standing Ord. Hydralazine HCl (Hydralazine Hcl 10 Mg Tablet) 10 mg PO BID [facility]; Protocol Last Admin: 02/09/23 10:59 Dose: 10 mg Documented By: BRISEYDAEMA Hydromorphone HCl (Hydromorphone Hcl 1 Mg/Ml Syringe) 0.5 mg IVPUSH Q4H PRN; Protocol PRN Reason: Pain, Severe (Pain Scale 7-10) Last Admin: 02/09/23 14:24 Dose: 0.5 mg Documented By: BRADFORD Insulin Glargine (Insulin Glargine,Hum.Rec.Anlog 100 Unit/Ml 10 Ml Vial) 5 unit SUBCUT BEDTIME [facility] Insulin Glargine (Insulin Glargine,Hum.Rec.Anlog 100 Unit/Ml 10 Ml Vial) 5 unit SUBCUT DAILY [facility] Insulin Human Lispro (Insulin Lispro 100 Unit/Ml 3 Ml Vial) 0 unit SUBCUT QIDACHS [facility]; Protocol Last Admin: 02/09/23 11:31 Dose: Not Given Documented By: BRADFORD Non-Admin Reason: No Insulin Coverage Montelukast Sodium (Montelukast Sodium 10 Mg Tablet) 10 mg PO BEDTIME [facility] Last Admin: 02/08/23 20:59 Dose: 10 mg Documented By: REDDY Omeprazole (Omeprazole 20 Mg Capsule.) 20 mg PO DAILY@0630 [facility] Last Admin: 02/09/23 05:55 Dose: Not Given Documented By: REDDY Non-Admin Reason: Off unit: Dialysis Ondansetron HCl (Ondansetron Hcl 4 Mg/2 Ml Vial) 4 mg IVPUSH Q6H PRN PRN Reason: Nausea and Vomiting Oxycodone HCl (Oxycodone Hcl Immed Release 5 Mg Tablet) 5 mg PO Q4H PRN PRN Reason: Pain, Moderate(Pain Scale 4-6) Last Admin: 02/09/23 10:59 Dose: 5 mg Documented By: BRADFORD Oxycodone HCl (Oxycodone Hcl Immed Release 5 Mg Tablet) 10 mg PO Q4H PRN PRN Reason: Pain, Severe (Pain Scale 7-10) Sertraline HCl (Sertraline Hcl 50 Mg Tablet) 150 mg PO DAILY [facility] Last Admin: 02/09/23 10:58 Dose: 150 mg Documented By: BRADFORD Sevelamer Carbonate (Sevelamer Carbonate Tablet 800 Mg Tablet) 1,600 mg PO TID [facility] Last Admin: 02/09/23 14:24 Dose: 1,600 mg Documented By: BRADFORD Sodium Chloride (0.9 % Sodium Chloride Flush 3 Ml Syringe) 3 ml IVFLUSH QSHIFT [facility] Last Admin: 02/09/23 14:24 Dose: 3 ml Documented By: BRADFORD Labs 02/09/23 06:04 02/07/23 19:06 Labs: Laboratory Results - last 24 hr 02/07/23 02/08/23 02/08/23 20:13 16:26 17:36 MCV MCH MCHC RDW Plt Count MPV Immature Gran % (Auto) Neut % (Auto) Lymph % (Auto) [place] % (Auto) Eos % (Auto) Baso % (Auto) Lymph # (Auto) [place] # (Auto) Eos # (Auto) Baso # (Auto) Abs Immat Gran (auto) Absolute Neuts (auto) Absolute Nucleated RBC Nucleated RBC % (auto) POC Glucose 77 97 Blood Type B Positive Antibody Screen NEGATIVE Crossmatch See Detail 02/08/23 02/09/23 02/09/23 20:30 06:04 07:56 MCV 95.0 MCH 30.5 MCHC 32.1 RDW 15.3 Plt Count 214 D MPV 10.3 Immature Gran % (Auto) 0.5 H Neut % (Auto) 64.0 Lymph % (Auto) 25.1 [place] % (Auto) 8.0 Eos % (Auto) 2.0 Baso % (Auto) 0.4 Lymph # (Auto) 1.4 [place] # (Auto) 0.4 Eos # (Auto) 0.1 Baso # (Auto) 0.0 Abs Immat Gran (auto) 0.03 Absolute Neuts (auto) 3.5 Absolute Nucleated RBC 0.000 Nucleated RBC % (auto) 0.0 POC Glucose 164 H 116 H Blood Type Antibody Screen Crossmatch 02/09/23 11:25 MCV MCH MCHC RDW Plt Count MPV Immature Gran % (Auto) Neut % (Auto) Lymph % (Auto) [place] % (Auto) Eos % (Auto) Baso % (Auto) Lymph # (Auto) [place] # (Auto) Eos # (Auto) Baso # (Auto) Abs Immat Gran (auto) Absolute Neuts (auto) Absolute Nucleated RBC Nucleated RBC % (auto) POC Glucose 114 Blood Type Antibody Screen Crossmatch Procedures Date of Service Date of Service: 02/09/23 Progress Note: A&P Assessment and plan (1) Acute lower gastrointestinal bleeding: Status: Acute Plan 68 year old female with multiple medical comorbidities admitted for post op pain and rectal bleeding almost 10 days s/p hemorroidectomy. EUA, flex sig yesterday showed no active bleeding but had significant clots in rectum. H/H drifted this am and was transfused 2U PRBC. Hold any anticoagulation. Will repeat CBC in am. If no further bleeding and H/H stable, ready for discharge to home. Patient and family comfortable today. ESRD- underwent dialysis today. Hospitalists following. Time Spent With Patient Time: Total time managing care of this patient today ____ minutes. Quality Stroke Does the patient have a stroke diagnosis?: No VTE Prior VTE?: No VTE Risk Level:: Surgical - low VTE Device Contraindication: Treatment Not Indicated VTE Drug Contraindication: Treatment Not Indicated
--- NOTE | 2023-02-09 14:53 | P.PNNP_ITS ---
Subjective Subjective Date of Service: 02/09/23 Interval history: Seen and examiend, events noted Seen on HD Physical Exam Vital Signs: Vital Signs: Last Vital Signs Temp 98.0 F 02/09/23 11:52 Pulse 65 02/09/23 11:52 Resp 19 02/09/23 14:24 BP 148/62 H 02/09/23 11:52 Pulse Ox 100 02/08/23 23:28 O2 Del Method Nasal Cannula 02/08/23 23:28 O2 Flow Rate 2 02/08/23 23:28 FiO2 42 02/08/23 16:50 BMI result Body Mass Index 28.3 Const: Other: Oblique female in significant anorectal discomfort. General: comfortable, no acute distress and alert Orientation/consciousness: patient oriented x3 Limitations: language barrier Chest: Other: Chest breath sounds bilaterally, HS 1 in 2 Resp: Effort & Inspection: normal respiratory effort GI: Other: no sigifredo blood or clots noted at rectum; smear of blood on peripad Skin: General skin exam: no rashes or lesions noted Neuro: General: patient oriented x3 Objective Data Labs 02/09/23 06:04 02/07/23 19:06 Labs: Laboratory Results - last 24 hr 02/07/23 02/08/23 02/08/23 20:13 16:26 17:36 WBC RBC Hgb Hct MCV MCH MCHC RDW Plt Count MPV Immature Gran % (Auto) Neut % (Auto) Lymph % (Auto) [place] % (Auto) Eos % (Auto) Baso % (Auto) Lymph # (Auto) [place] # (Auto) Eos # (Auto) Baso # (Auto) Abs Immat Gran (auto) Absolute Neuts (auto) Absolute Nucleated RBC Nucleated RBC % (auto) POC Glucose 77 97 Blood Type B Positive Antibody Screen NEGATIVE Crossmatch See Detail 02/08/23 02/09/23 02/09/23 20:30 06:04 07:56 WBC 5.5 RBC 2.00 L D Hgb 6.1 L* D Hct 19.0 L* D MCV 95.0 MCH 30.5 MCHC 32.1 RDW 15.3 Plt Count 214 D MPV 10.3 Immature Gran % (Auto) 0.5 H Neut % (Auto) 64.0 Lymph % (Auto) 25.1 [place] % (Auto) 8.0 Eos % (Auto) 2.0 Baso % (Auto) 0.4 Lymph # (Auto) 1.4 [place] # (Auto) 0.4 Eos # (Auto) 0.1 Baso # (Auto) 0.0 Abs Immat Gran (auto) 0.03 Absolute Neuts (auto) 3.5 Absolute Nucleated RBC 0.000 Nucleated RBC % (auto) 0.0 POC Glucose 164 H 116 H Blood Type Antibody Screen Crossmatch 02/09/23 11:25 WBC RBC Hgb Hct MCV MCH MCHC RDW Plt Count MPV Immature Gran % (Auto) Neut % (Auto) Lymph % (Auto) [place] % (Auto) Eos % (Auto) Baso % (Auto) Lymph # (Auto) [place] # (Auto) Eos # (Auto) Baso # (Auto) Abs Immat Gran (auto) Absolute Neuts (auto) Absolute Nucleated RBC Nucleated RBC % (auto) POC Glucose 114 Blood Type Antibody Screen Crossmatch Procedures Date of Service Date of Service: 02/09/23 Assessment & Plan Assessment and plan (1) Acute lower gastrointestinal bleeding: Status: Acute Plan ESRD-TTS LGIB: getting xfused and eval by Surg/GI REC: cont GD TTS, DDAVP if active bleeding; track Hb will fllow w team Time Spent With Patient Time: Total time managing care of this patient today ____ minutes. Progress Note: Quality Stroke Does the patient have a stroke diagnosis?: No
[2023-02-09] MEDS: ondansetron HCL 4 MG/2 ML VIAL IVPUSH (15:01)
[2023-02-09 16:02] LABS: Glucose, Whole Blood 210 mg/dL (60-115)
--- NOTE | 2023-02-09 16:43 | HO.POSTANES ---
Post Anesthesia Evaluation Post Anesthesia Evaluation Date of Service: 02/09/23 Vital Signs: Vital Signs Temp Pulse Resp BP Pulse Ox O2 Del Method O2 Flow Rate 02/09/23 15:47 97 F 65 20 117/58 L 99 Nasal Cannula 2 02/09/23 14:24 19 02/09/23 11:52 98.0 F 65 17 148/62 H 02/09/23 11:34 97.2 F 64 17 151/76 H 02/09/23 10:33 97.0 F 64 16 132/64 02/09/23 08:43 97.8 F 65 16 108/63 02/09/23 08:24 96.9 F 65 18 93/52 L Anesthesia: Monitored Mental Status: Awake Pain Control: Satisfactory Nausea/Vomiting: None Hydration: Adequate Anesthesia-Related Issues: No Anes. Related Issues
[2023-02-09] MEDS: Insulin Lispro 100 UNIT/ML 3 ML VIAL SUBCUT ×2 (16:47→22:10)
[2023-02-09 21:05] LABS: Glucose, Whole Blood 180 mg/dL (60-115)
[2023-02-09] MEDS: Atorvastatin Calcium 80 MG TABLET PO (22:07)
[2023-02-09] MEDS: Montelukast Sodium 10 MG TABLET PO (22:08)
--- NOTE | 2023-02-10 02:06 | CONS_ITS ---
DATE OF SERVICE: REASON FOR CONSULTATION: I was asked to see the patient to assist in evaluation and management of the patient's dialysis needs in the setting of presenting to the hospital with lower GI bleed due to hemorrhoids. HISTORY OF PRESENT ILLNESS: In summary, the patient is a 68-year-old patient with ESRD, normally dialyzed on Monday, , Monday, was admitted to the hospital for a flex sig to evaluate rectal bleeding after recent hemorrhoidectomy. She has again end-stage renal disease; underlying coronary artery disease, status post CABG; hypertension; and diabetes. The patient's hospital course included transfusion and she has continued to get further evaluation by Surgery as well as by Medicine as she may need further transfusions. Overall, she is feeling better. PAST MEDICAL HISTORY: As noted above. MEDICATIONS: Medications on admission noted in the admitting notes. Current medications on the SEP. FAMILY HISTORY: Notable for cardiovascular and hypertensive disease. SOCIAL HISTORY: She is a nonsmoker, nondrinker. No illicit drug use. REVIEW OF SYSTEMS: As noted above. PHYSICAL EXAMINATION: VITAL SIGNS: Blood pressure of 140/80 with a heart rate in the 70s. HEAD: Atraumatic and normocephalic. NECK: Supple. Mucous membranes moist. LUNGS: Breath sounds bilaterally. CARDIAC: Regular rate and rhythm. ABDOMEN: Soft, nontender. EXTREMITIES: Show no edema. LABORATORY DATA: Sodium 137, potassium 3.7, chloride 93, bicarb 22. Hemoglobin on the was 11.5, now it has not been done today, but will be repeated. IMPRESSION: END-STAGE RENAL DISEASE. THE PATIENT ADMITTED WITH RECTAL BLEEDING AFTER RECENT HEMORRHOIDECTOMIES. 1. End-stage renal disease, dialyzed Monday, , Monday schedule. 2. Lower gastrointestinal bleed. She will be evaluated by Surgery. Repeat hemoglobin is going to be done. 3. Metabolic bone disease with chronic kidney disease. Continue routine medications. 4. Diabetes mellitus. RECOMMENDATION: This time includes the followin. Dialysis as scheduled for tomorrow. 2. Repeat hemoglobin today and track. 3. If she has active bleeding, could give her DDAVP. At this point, her hemoglobin is holding steady. Please note, this dictation was for patient that was seen on February 08. MD UDAY Zhou/DEBBIE / [id number]
[2023-02-10] MEDS: Acetaminophen 325 MG TABLET 650 MG PO ×3 (05:33→15:47)
[2023-02-10] MEDS: oxyCODONE HCl Immed Release 5 MG TABLET 10 MG PO ×3 (05:33→12:20)
[2023-02-10] MEDS: Omeprazole 20 MG CAPSULE.DR PO (05:33)
[2023-02-10 06:45] LABS: MANUAL DIFF FLAG NO
[2023-02-10 06:53] LABS: Basophils Percent Auto 0.4 % (0-2); Eosinophils Absolute Auto 0.2 X10*3/uL (0.0-0.4); Eosinophils Percent Auto 2.4 % (0-4); Hematocrit 29.1 % (37.0-47.0); Hemoglobin 9.5 g/dl (12.0-16.0); Imm Gran Abs Auto 0.05 X10*3/uL (0.00-0.03); Imm Gran Pct Auto 0.7 % (0.0-0.4); Lymphocytes Absolute Auto 1.6 X10*3/uL (1.2-4.9); Lymphocytes Percent Auto 21.8 % (20-40); Mean Corpuscular HGB Conc 32.6 g/dl (31.0-35.0); Mean Corpuscular Hemoglobin 30.4 pg (27.0-33.0); Mean Corpuscular Volume 93.3 fL (80.0-98.0); Mean Platelet Volume 10.1 fL (9.4-12.3); Monocytes Absolute Auto 0.6 X10*3/uL (0.1-1.2); Neutrophils Absolute Auto 4.7 x10*3/uL (2.0-8.3); Neutrophils Percent Auto 66.7 % (45-73); Platelet Count 197 X10*3/uL (160-400); Red Blood Count 3.12 X10*6/uL (4.20-5.50); Red Cell Distribution Width 14.7 % (11.0-16.0); White Blood Count 7.1 X10*3/uL (4.8-10.8)
[2023-02-10 07:04] LABS: Anion Gap 16 (12-20); Blood Urea Nitrogen 29 mg/dL (9-16); Calcium 10.3 mg/dL (8.4-10.2); Carbon Dioxide 26 mmol/L (22-29); Chloride 95 mmol/L (96-108); Creatinine Clr Calc Pharmacy 8.4; Estimated Glomerular Filt Rate 8; Glucose Random 146 mg/dL (60-115); Potassium 4.4 mmol/L (3.3-5.1); Sodium 133 mmol/L (135-145)
[2023-02-10] MEDS: Fluticasone/Vilanterol 100/25 BLST.W.DEV 1 PUFF INHALE (07:26)
[2023-02-10 07:28] VITALS: PULSE 60; RESP 18
[2023-02-10 07:44] VITALS: BP 142/65; PULSE 55; RESP 18; TEMP 36.6; O2SAT 100
[2023-02-10 08:20] LABS: Glucose, Whole Blood 160 mg/dL (60-115)
[2023-02-10] MEDS: Insulin Lispro 100 UNIT/ML 3 ML VIAL SUBCUT ×3 (08:37→21:43)
[2023-02-10] MEDS: Insulin Glargine,Hum.rec.anlog 100 UNIT/ML 10 ML VIAL SUBCUT ×2 (08:37→21:42)
[2023-02-10] MEDS: Sertraline HCL 50 MG TABLET 150 MG PO (08:38)
[2023-02-10] MEDS: Ezetimibe 10 MG TABLET PO (08:38)
[2023-02-10] MEDS: Sevelamer Carbonate Tablet 800 MG TABLET 1600 MG PO ×3 (08:38→21:41)
[2023-02-10] MEDS: Furosemide 40 MG TABLET 120 MG PO ×2 (08:38→21:42)
[2023-02-10] MEDS: 0.9 % Sodium Chloride Flush 3 ML SYRINGE IVFLUSH ×3 (08:39→21:43)
[2023-02-10] MEDS: amLODIPine Besylate 10 MG TABLET PO (08:39)
[2023-02-10] MEDS: hydrALAZINE HCl 10 MG TABLET PO ×2 (08:39→21:41)
--- NOTE | 2023-02-10 09:55 | PM.PNGS ---
Subjective Subjective Date of Service: 02/10/23 Interval history: Uneventful evening. Patient has not had a recurrence of her bloody bowel movements or blood per rectum following dialysis yesterday. Status post 2 units packed red blood cells. H&H better this a.m.. Physical Exam Vital Signs: Vital Signs: Last Vital Signs Temp 97.8 F 02/10/23 07:44 Pulse 55 02/10/23 07:44 Resp 18 02/10/23 07:44 BP 142/65 H 02/10/23 07:44 Pulse Ox 100 02/10/23 07:44 O2 Del Method Nasal Cannula 02/10/23 07:44 O2 Flow Rate 2 02/10/23 07:44 FiO2 42 02/08/23 16:50 BMI result Body Mass Index 28.3 GI: Other: Abdomen soft. Nontender. Limited anorectal exam demonstrated no evidence of any blood or clot. Objective Data Active Medications Acetaminophen (Acetaminophen 325 Mg Tablet) 650 mg PO Q6H PRN PRN Reason: fever, pain Last Admin: 02/10/23 05:33 Dose: 650 mg Documented By: SAJAN Amlodipine Besylate (Amlodipine Besylate 10 Mg Tablet) 10 mg PO DAILY [facility]; Protocol Last Admin: 02/10/23 08:39 Dose: 10 mg Documented By: ELIOT Atorvastatin Calcium (Atorvastatin Calcium 80 Mg Tablet) 80 mg PO BEDTIME [facility] Last Admin: 02/09/23 22:07 Dose: 80 mg Documented By: REDDY Carvedilol (Carvedilol 6.25 Mg Tablet) 6.25 mg PO BID [facility]; Protocol Last Admin: 02/10/23 08:46 Dose: Not Given Documented By: ELIOT Non-Admin Reason: Decreased Heart Rate Dextrose (Dextrose 50 % 25 Gm/50 Ml Syringe) 25 gm IVPUSH Q15M PRN; Protocol PRN Reason: per Hypoglycemia Standing Ord. Ezetimibe (Ezetimibe 10 Mg Tablet) 10 mg PO DAILY [facility] Last Admin: 02/10/23 08:38 Dose: 10 mg Documented By: ELIOT Fluticasone/Vilanterol (Fluticasone/Vilanterol 100/25 Blst.W.Dev) 1 puff INHALE DAILY [facility] Last Admin: 02/10/23 07:26 Dose: 1 puff Documented By: INDIRA Furosemide (Furosemide 40 Mg Tablet) 120 mg PO BID [facility]; Protocol Last Admin: 02/10/23 08:38 Dose: 120 mg Documented By: ELIOT Glucose (Glucose Gel 15 Gm Gel..Gram.) 15 gm PO Q15M PRN; Protocol PRN Reason: per Hypoglycemia Standing Ord. Hydralazine HCl (Hydralazine Hcl 10 Mg Tablet) 10 mg PO BID [facility]; Protocol Last Admin: 02/10/23 08:39 Dose: 10 mg Documented By: ELIOT Insulin Glargine (Insulin Glargine,Hum.Rec.Anlog 100 Unit/Ml 10 Ml Vial) 5 unit SUBCUT BEDTIME [facility] Insulin Glargine (Insulin Glargine,Hum.Rec.Anlog 100 Unit/Ml 10 Ml Vial) 5 unit SUBCUT DAILY [facility] Last Admin: 02/10/23 08:37 Dose: 5 unit Documented By: ELIOT Insulin Human Lispro (Insulin Lispro 100 Unit/Ml 3 Ml Vial) 0 unit SUBCUT QIDACHS [facility]; Protocol Last Admin: 02/10/23 08:37 Dose: 2 unit Documented By: ELIOT Montelukast Sodium (Montelukast Sodium 10 Mg Tablet) 10 mg PO BEDTIME [facility] Last Admin: 02/09/23 22:08 Dose: 10 mg Documented By: REDDY Morphine Sulfate (Morphine Sulfate 4 Mg/Ml Cartridge) 3 mg IVPUSH Q4H PRN; Protocol PRN Reason: Pain, Severe (Pain Scale 7-10) Omeprazole (Omeprazole 20 Mg Capsule.Dr) 20 mg PO DAILY@0630 [facility] Last Admin: 02/10/23 05:33 Dose: 20 mg Documented By: SAJAN Ondansetron HCl (Ondansetron Hcl 4 Mg/2 Ml Vial) 4 mg IVPUSH Q6H PRN PRN Reason: Nausea and Vomiting Last Admin: 02/09/23 15:01 Dose: 4 mg Documented By: INGRID Oxycodone HCl (Oxycodone Hcl Immed Release 5 Mg Tablet) 5 mg PO Q4H PRN PRN Reason: Pain, Moderate(Pain Scale 4-6) Last Admin: 02/09/23 10:59 Dose: 5 mg Documented By: BRADFORD Oxycodone HCl (Oxycodone Hcl Immed Release 5 Mg Tablet) 10 mg PO Q4H PRN PRN Reason: Pain, Severe (Pain Scale 7-10) Last Admin: 02/10/23 05:33 Dose: 10 mg Documented By: SAJAN Sertraline HCl (Sertraline Hcl 50 Mg Tablet) 150 mg PO DAILY [facility] Last Admin: 02/10/23 08:38 Dose: 150 mg Documented By: ELIOT Sevelamer Carbonate (Sevelamer Carbonate Tablet 800 Mg Tablet) 1,600 mg PO TID [facility] Last Admin: 02/10/23 08:38 Dose: 1,600 mg Documented By: ELIOT Sodium Chloride (0.9 % Sodium Chloride Flush 3 Ml Syringe) 3 ml IVFLUSH QSHIFT [facility] Last Admin: 02/10/23 08:39 Dose: 3 ml Documented By: ELIOT Labs 02/10/23 05:29 02/10/23 05:29 Labs: Laboratory Results - last 24 hr 02/07/23 02/09/23 02/09/23 20:13 11:25 15:59 MCV MCH MCHC RDW Plt Count MPV Immature Gran % (Auto) Neut % (Auto) Lymph % (Auto) [place] % (Auto) Eos % (Auto) Baso % (Auto) Lymph # (Auto) [place] # (Auto) Eos # (Auto) Baso # (Auto) Abs Immat Gran (auto) Absolute Neuts (auto) Absolute Nucleated RBC Nucleated RBC % (auto) Anion Gap Estim Creat Clear Calc Estimated GFR POC Glucose 114 210 H Random Glucose Calcium Blood Type B Positive Antibody Screen NEGATIVE Crossmatch See Detail 02/09/23 02/10/23 02/10/23 20:59 05:29 05:29 MCV 93.3 MCH 30.4 MCHC 32.6 RDW 14.7 Plt Count 197 MPV 10.1 Immature Gran % (Auto) 0.7 H Neut % (Auto) 66.7 Lymph % (Auto) 21.8 [place] % (Auto) 8.0 Eos % (Auto) 2.4 Baso % (Auto) 0.4 Lymph # (Auto) 1.6 [place] # (Auto) 0.6 Eos # (Auto) 0.2 Baso # (Auto) 0.0 Abs Immat Gran (auto) 0.05 H Absolute Neuts (auto) 4.7 Absolute Nucleated RBC 0.000 Nucleated RBC % (auto) 0.0 Anion Gap 16 Estim Creat Clear Calc 8.4 Estimated GFR 8 POC Glucose 180 H Random Glucose 146 H Calcium 10.3 H D Blood Type Antibody Screen Crossmatch 02/10/23 07:43 MCV MCH MCHC RDW Plt Count MPV Immature Gran % (Auto) Neut % (Auto) Lymph % (Auto) [place] % (Auto) Eos % (Auto) Baso % (Auto) Lymph # (Auto) [place] # (Auto) Eos # (Auto) Baso # (Auto) Abs Immat Gran (auto) Absolute Neuts (auto) Absolute Nucleated RBC Nucleated RBC % (auto) Anion Gap Estim Creat Clear Calc Estimated GFR POC Glucose 160 H Random Glucose Calcium Blood Type Antibody Screen Crossmatch Procedures Date of Service Date of Service: 02/10/23 Progress Note: A&P Assessment and plan (1) Acute lower gastrointestinal bleeding: Status: Acute Plan Continue restorative measures. Advanced diet as tolerated, incentive spirometry, out of bed, consider physical therapy. Time Spent With Patient Time: Total time managing care of this patient today ____ minutes. Quality Stroke Does the patient have a stroke diagnosis?: No VTE Prior VTE?: No VTE Risk Level:: Surgical - low VTE Device Contraindication: Treatment Not Indicated VTE Drug Contraindication: Treatment Not Indicated
--- NOTE | 2023-02-10 10:07 | PM.PNNEP ---
Subjective Subjective Date of Service: 02/10/23 Interval history: seen and examined no complaints Physical Exam Vital Signs: Vital Signs: Last Vital Signs Temp 97.8 F 02/10/23 07:44 Pulse 55 02/10/23 07:44 Resp 18 02/10/23 07:44 BP 142/65 H 02/10/23 07:44 Pulse Ox 100 02/10/23 07:44 O2 Del Method Nasal Cannula 02/10/23 07:44 O2 Flow Rate 2 02/10/23 07:44 FiO2 42 02/08/23 16:50 BMI result Body Mass Index 28.3 Const: General: alert and awake HEENT: Head: Yes normocephalic and Yes atraumatic Neck: Neck: Yes supple Resp: Auscultation: diminished lung sounds Cardio: Heart sounds: S1 normal heart sound present and S2 normal heart sound present GI: Palpation (GI): Soft to palpation and nontender Extrem: General: Yes edema Objective Data Labs 02/10/23 05:29 02/10/23 05:29 Labs: Laboratory Results - last 24 hr 02/07/23 02/09/23 02/09/23 20:13 11:25 15:59 WBC RBC Hgb Hct MCV MCH MCHC RDW Plt Count MPV Immature Gran % (Auto) Neut % (Auto) Lymph % (Auto) [place] % (Auto) Eos % (Auto) Baso % (Auto) Lymph # (Auto) [place] # (Auto) Eos # (Auto) Baso # (Auto) Abs Immat Gran (auto) Absolute Neuts (auto) Absolute Nucleated RBC Nucleated RBC % (auto) Sodium Potassium Chloride Carbon Dioxide Anion Gap BUN Creatinine Estim Creat Clear Calc Estimated GFR POC Glucose 114 210 H Random Glucose Calcium Blood Type B Positive Antibody Screen NEGATIVE Crossmatch See Detail 02/09/23 02/10/23 02/10/23 20:59 05:29 05:29 WBC 7.1 RBC 3.12 L D Hgb 9.5 L D Hct 29.1 L D MCV 93.3 MCH 30.4 MCHC 32.6 RDW 14.7 Plt Count 197 MPV 10.1 Immature Gran % (Auto) 0.7 H Neut % (Auto) 66.7 Lymph % (Auto) 21.8 [place] % (Auto) 8.0 Eos % (Auto) 2.4 Baso % (Auto) 0.4 Lymph # (Auto) 1.6 [place] # (Auto) 0.6 Eos # (Auto) 0.2 Baso # (Auto) 0.0 Abs Immat Gran (auto) 0.05 H Absolute Neuts (auto) 4.7 Absolute Nucleated RBC 0.000 Nucleated RBC % (auto) 0.0 Sodium 133 L Potassium 4.4 Chloride 95 L Carbon Dioxide 26 Anion Gap 16 BUN 29 H Creatinine 5.03 H* Estim Creat Clear Calc 8.4 Estimated GFR 8 POC Glucose 180 H Random Glucose 146 H Calcium 10.3 H D Blood Type Antibody Screen Crossmatch 02/10/23 07:43 WBC RBC Hgb Hct MCV MCH MCHC RDW Plt Count MPV Immature Gran % (Auto) Neut % (Auto) Lymph % (Auto) [place] % (Auto) Eos % (Auto) Baso % (Auto) Lymph # (Auto) [place] # (Auto) Eos # (Auto) Baso # (Auto) Abs Immat Gran (auto) Absolute Neuts (auto) Absolute Nucleated RBC Nucleated RBC % (auto) Sodium Potassium Chloride Carbon Dioxide Anion Gap BUN Creatinine Estim Creat Clear Calc Estimated GFR POC Glucose 160 H Random Glucose Calcium Blood Type Antibody Screen Crossmatch Procedures Date of Service Date of Service: 02/10/23 Assessment & Plan Assessment and plan (1) ESRD (end stage renal disease): Status: Acute (2) Anemia: Status: Acute Plan HD in am follow h/h renal diet ELYSSA phosphate binders Time Spent With Patient Time: Total time managing care of this patient today ____ minutes. Progress Note: Quality Stroke Does the patient have a stroke diagnosis?: No
[2023-02-10 11:07] LABS: Glucose, Whole Blood 166 mg/dL (60-115)
--- NOTE | 2023-02-10 11:54 | MHC.CM.PN ---
CM MET WITH PTS SON AT BEDSIDE HE REPORTS HE DOES NOT THINK THE PT WILL BE READY TO COME HOME SOON HE SAYS SHE WAS RECENTLY D/C AND CAME RIGHT BACK HE STRONGLY FEELS SHE NEEDS STR HE SAYS SHE CANNOT WALK AND HAS TO GO UP/DOWN A FLIGHT OF STAIRS TOMORROW TO GET TO HD. HE IS AGREEABLE TO STR REFERRALS BUT SAYS SHE CANNOT GO OUTSIDE OF [place] THEY DO NOT DRIVE CM EXPLAINED EVERYTHING POSSIBLE WOULD BE DONE TO GET HER A PLACE IN [place], HOWEVER DUE TO THE HD, IT MAY BE DIFFICULT HE REPORTS IF IT IS NOT IN [place] HE WILL APPEAL THE DC. MEDICARE RIGHTS REVIEWED AGAIN AND A NEW COPY OF IMM WAS GIVEN
--- NOTE | 2023-02-10 12:27 | P.PNIM_ITS ---
Subjective Subjective Date of Service: 02/10/23 Interval History: Follow-up for patient s/p flexible sigmoidoscopy for evaluation of rectal bleed after recent hemorrhoidectomy. Overall pt says is feeling better, no acute events overnight. Patient states she has not been out of bed yet. No bowel movement yet, last one 10+ days ago. Has not produced any urine today. Has been trying to eat and drink, though states not feeling too hungry. Continues to have some lightheadedness and dizziness, though better than yesterday morning. Has not noticed any bleeding. Continues to have mild rectal pain. Review of Systems Negative except for that which is stated in the HPI. Physical Exam Vital Signs: Vital Signs: Last Vital Signs Temp 97.8 F 02/10/23 07:44 Pulse 55 02/10/23 07:44 Resp 18 02/10/23 07:44 BP 142/65 H 02/10/23 07:44 Pulse Ox 100 02/10/23 07:44 O2 Del Method Nasal Cannula 02/10/23 07:44 O2 Flow Rate 2 02/10/23 07:44 FiO2 42 02/08/23 16:50 BMI result Body Mass Index 28.3 General: AOx3, no acute distress Resp: CTA bilaterally CVS: S1, S2, R, 2/6 murmur GI: +BS, NT, no distention Skin: No rash Neuro: Cranial nerves II-XII grossly intact bilaterally. Motor grossly intact bilaterally Extremities: No edema Psych: Appropriate affect Objective Data Active Medications Acetaminophen (Acetaminophen 325 Mg Tablet) 650 mg PO Q6H PRN PRN Reason: fever, pain Last Admin: 02/10/23 05:33 Dose: 650 mg Documented By: SAJAN Amlodipine Besylate (Amlodipine Besylate 10 Mg Tablet) 10 mg PO DAILY [facility]; Protocol Last Admin: 02/10/23 08:39 Dose: 10 mg Documented By: ELIOT Atorvastatin Calcium (Atorvastatin Calcium 80 Mg Tablet) 80 mg PO BEDTIME [facility] Last Admin: 02/09/23 22:07 Dose: 80 mg Documented By: REDDY Carvedilol (Carvedilol 6.25 Mg Tablet) 6.25 mg PO BID [facility]; Protocol Last Admin: 02/10/23 08:46 Dose: Not Given Documented By: ELIOT Non-Admin Reason: Decreased Heart Rate Dextrose (Dextrose 50 % 25 Gm/50 Ml Syringe) 25 gm IVPUSH Q15M PRN; Protocol PRN Reason: per Hypoglycemia Standing Ord. Ezetimibe (Ezetimibe 10 Mg Tablet) 10 mg PO DAILY [facility] Last Admin: 02/10/23 08:38 Dose: 10 mg Documented By: ELIOT Fluticasone/Vilanterol (Fluticasone/Vilanterol 100/25 Blst.W.Dev) 1 puff INHALE DAILY [facility] Last Admin: 02/10/23 07:26 Dose: 1 puff Documented By: INDIRA Furosemide (Furosemide 40 Mg Tablet) 120 mg PO BID [facility]; Protocol Last Admin: 02/10/23 08:38 Dose: 120 mg Documented By: ELIOT Glucose (Glucose Gel 15 Gm Gel..Gram.) 15 gm PO Q15M PRN; Protocol PRN Reason: per Hypoglycemia Standing Ord. Hydralazine HCl (Hydralazine Hcl 10 Mg Tablet) 10 mg PO BID [facility]; Protocol Last Admin: 02/10/23 08:39 Dose: 10 mg Documented By: ELIOT Insulin Glargine (Insulin Glargine,Hum.Rec.Anlog 100 Unit/Ml 10 Ml Vial) 5 unit SUBCUT BEDTIME [facility] Insulin Glargine (Insulin Glargine,Hum.Rec.Anlog 100 Unit/Ml 10 Ml Vial) 5 unit SUBCUT DAILY [facility] Last Admin: 02/10/23 08:37 Dose: 5 unit Documented By: ELIOT Insulin Human Lispro (Insulin Lispro 100 Unit/Ml 3 Ml Vial) 0 unit SUBCUT QIDACHS [facility]; Protocol Last Admin: 02/10/23 12:16 Dose: 2 unit Documented By: ELIOT Montelukast Sodium (Montelukast Sodium 10 Mg Tablet) 10 mg PO BEDTIME [facility] Last Admin: 02/09/23 22:08 Dose: 10 mg Documented By: REDDY Morphine Sulfate (Morphine Sulfate 4 Mg/Ml Cartridge) 3 mg IVPUSH Q4H PRN; Protocol PRN Reason: Pain, Severe (Pain Scale 7-10) Omeprazole (Omeprazole 20 Mg Capsule.) 20 mg PO DAILY@0630 [facility] Last Admin: 02/10/23 05:33 Dose: 20 mg Documented By: SAJAN Ondansetron HCl (Ondansetron Hcl 4 Mg/2 Ml Vial) 4 mg IVPUSH Q6H PRN PRN Reason: Nausea and Vomiting Last Admin: 02/09/23 15:01 Dose: 4 mg Documented By: INGRID Oxycodone HCl (Oxycodone Hcl Immed Release 5 Mg Tablet) 5 mg PO Q4H PRN PRN Reason: Pain, Moderate(Pain Scale 4-6) Last Admin: 02/09/23 10:59 Dose: 5 mg Documented By: BRADFORD Oxycodone HCl (Oxycodone Hcl Immed Release 5 Mg Tablet) 10 mg PO Q4H PRN PRN Reason: Pain, Severe (Pain Scale 7-10) Last Admin: 02/10/23 12:20 Dose: 10 mg Documented By: ELIOT Sertraline HCl (Sertraline Hcl 50 Mg Tablet) 150 mg PO DAILY [facility] Last Admin: 02/10/23 08:38 Dose: 150 mg Documented By: ELIOT Sevelamer Carbonate (Sevelamer Carbonate Tablet 800 Mg Tablet) 1,600 mg PO TID [facility] Last Admin: 02/10/23 08:38 Dose: 1,600 mg Documented By: ELIOT Sodium Chloride (0.9 % Sodium Chloride Flush 3 Ml Syringe) [facility] Last Admin: 02/10/23 08:39 Dose: 3 ml Documented By: ELIOT Labs 02/10/23 05:29 02/10/23 05:29 Labs: Laboratory Results - last 24 hr 02/09/23 02/09/23 02/10/23 15:59 20:59 05:29 MCV 93.3 MCH 30.4 MCHC 32.6 RDW 14.7 Plt Count 197 MPV 10.1 Immature Gran % (Auto) 0.7 H Neut % (Auto) 66.7 Lymph % (Auto) 21.8 [place] % (Auto) 8.0 Eos % (Auto) 2.4 Baso % (Auto) 0.4 Lymph # (Auto) 1.6 [place] # (Auto) 0.6 Eos # (Auto) 0.2 Baso # (Auto) 0.0 Abs Immat Gran (auto) 0.05 H Absolute Neuts (auto) 4.7 Absolute Nucleated RBC 0.000 Nucleated RBC % (auto) 0.0 Anion Gap Estim Creat Clear Calc Estimated GFR POC Glucose 210 H 180 H Random Glucose Calcium 02/10/23 02/10/23 02/10/23 05:29 07:43 11:01 MCV MCH MCHC RDW Plt Count MPV Immature Gran % (Auto) Neut % (Auto) Lymph % (Auto) [place] % (Auto) Eos % (Auto) Baso % (Auto) Lymph # (Auto) [place] # (Auto) Eos # (Auto) Baso # (Auto) Abs Immat Gran (auto) Absolute Neuts (auto) Absolute Nucleated RBC Nucleated RBC % (auto) Anion Gap 16 Estim Creat Clear Calc 8.4 Estimated GFR 8 POC Glucose 160 H 166 H Random Glucose 146 H Calcium 10.3 H D Assessment and Plan (1) ESRD (end stage renal disease): Status: Acute (2) Acute lower gastrointestinal bleeding: Status: Acute Plan Pt is a 68-year-old female with a PMH significant for?with CAD, CABG in 2017, HTN, insulin-dependent diabetes, ESRD on dialysis on Mon//Mon, and hemorrhoids who is admitted to the hospital under General Surgery for flexible sigmoidoscopy for evaluation of rectal bleeding after recent hemorrhoidectomy.? Patient is Kiswahili-speaking only; soaker services utilized. Acute GI bleed Patient's H&H 9.5/29.1 today, up from 6.1/19.0 yesterday after receiving 2 units of PRBCs No acute bleeding noted overnight Follow CBC daily Transfuse as necessary End-stage renal disease, dialysis Monday, and Monday Had dialysis on Nephrology consultation Follow BMP Hypertension Pt's BP has been soft previous two days likely secondary to blood loss Pt has been transfused 2 units PRBCs, BP improved Continue home meds if pt remains normotensive or hypertensive Monitor BP closely Insulin-dependent diabetes type 2 Lantus, sliding scale Diabetic diet CAD Continue statin Hold aspirin d/t acute GI bleed HLD Continue statin, hold alirocumab COPD Does not seem to be in acute exacerbation Currently satting at 100% O2 on 2L NC, not on home O2 Discontinue supplemental O2 Continue home inhalers Ambulation Pt walks with cane and walker at home Currently has not been out of bed PT evaluation Thank you for allowing us to participate in the care of this patient.? Will continue to follow with you. Please let us know if there are any acute compla ints or questions. Time Spent With Patient Time: Total time managing care of this patient today ____ minutes. Quality Stroke Does the patient have a stroke diagnosis?: No VTE Prior VTE?: No VTE Risk Level:: Surgical - low VTE Device Contraindication: Treatment Not Indicated VTE Drug Contraindication: Treatment Not Indicated
[2023-02-10 14:23] VITALS: PULSE 55; O2SAT 99
[2023-02-10 15:39] VITALS: BP 134/62; PULSE 60; RESP 16; TEMP 36.4; O2SAT 100
--- NOTE | 2023-02-10 16:18 | P.DS_ITS ---
DS: Providers Provider Date of Service: 02/11/23 Date of admission: 02/09/23 14:12 Date of discharge: 02/11/23 Primary care physician: Natividad Perez MD Attending physician on admission: Alek Kilne Consults: 02/08/23 09:27 Consult to Nephrology Stat Consulting Provider: Yared Powell Reason for consultation: dialysis Has provider been notified: Yes 02/08/23 17:28 Consult to Hospitalist Routine Comment: Consulting Provider: Hospitalist Reason For Exam: medical management ESRD on dialysis, DM, HTN 02/08/23 21:02 Consult to Hospitalist Routine Comment: Consulting Provider: Hospitalist Reason For Exam: ESRD, DM, DS: Diagnosis Discharge Diagnosis (1) ESRD (end stage renal disease): Status: Acute (2) Acute lower gastrointestinal bleeding: Status: Acute DS: Summary Time Spent with Patient Time attestation: Total time managing care of this patient today ____ minutes. Discharge coordination time: Less than 30 minutes Specific discharge activities: Patient is an elderly female with a plethora of medical problems including end-stage renal disease who was postop day 8 status post extensive hemorrhoidectomy for significant hemorrhoidal disease. She went on to have hemodialysis and post dialysis developed lower GI bleed from hemorrhoid wounds most likely related to the anticoagulation from her dialysis. Patient was admitted, underwent generous short of measures, and was taken the operating room on hospital day 2 where an EUA demonstrated no active bleeding. Please refer to op no regarding this. Patient hospitalization has been stable. She had a low H&H which was supplemented through packed red blood cells during dialysis. Patient has remained hemodynamically stable. She has had no further active bleeding having had dialysis on 02/09. Current plan is to discharge the patient to an ECF for further convalescence and recovery. Patient id she is scheduled to follow-up in the surgical clinic in approximately 1 weeks time. Quality: Safe Use of Opioids Does Pt have an Active Cancer Diagnosis on the Problem List?: No Quality: Stroke Does the patient have a stroke diagnosis?: No Physical Exam Vital Signs: Vital Signs: Last Vital Signs Temp 97.6 F 02/10/23 15:39 Pulse 60 02/10/23 15:39 Resp 16 02/10/23 15:39 BP 134/62 02/10/23 15:39 Pulse Ox 100 02/10/23 15:39 O2 Del Method Room Air 02/10/23 15:39 O2 Flow Rate 2 02/10/23 07:44 FiO2 42 02/08/23 16:50 BMI result Body Mass Index 28.3 GI: Other: Abdomen soft. Anorectal wounds clean dry and intact. DS: Data Data Completed and Pending Completed studies during hospitalization [Text1]: Procedures Insertion of Infusion Device into Superior Vena Cava, Percutaneous Approach (07/11/21) Insertion of Tunneled Vascular Access Device into Chest Subcutaneous Tissue and Fascia, Percutaneous Approach (07/11/21) Performance of Urinary Filtration, Intermittent, Less than 6 Hours Per Day (11/28/21) Labs on day of discharge: Laboratory Results - last 24 hr 02/09/23 02/10/23 02/10/23 20:59 05:29 05:29 WBC 7.1 RBC 3.12 L D Hgb 9.5 L D Hct 29.1 L D MCV 93.3 MCH 30.4 MCHC 32.6 RDW 14.7 Plt Count 197 MPV 10.1 Immature Gran % (Auto) 0.7 H Neut % (Auto) 66.7 Lymph % (Auto) 21.8 Garden % (Auto) 8.0 Eos % (Auto) 2.4 Baso % (Auto) 0.4 Lymph # (Auto) 1.6 Garden # (Auto) 0.6 Eos # (Auto) 0.2 Baso # (Auto) 0.0 Abs Immat Gran (auto) 0.05 H Absolute Neuts (auto) 4.7 Absolute Nucleated RBC 0.000 Nucleated RBC % (auto) 0.0 Sodium 133 L Potassium 4.4 Chloride 95 L Carbon Dioxide 26 Anion Gap 16 BUN 29 H Creatinine 5.03 H* Estim Creat Clear Calc 8.4 Estimated GFR 8 POC Glucose 180 H Random Glucose 146 H Calcium 10.3 H D 02/10/23 02/10/23 07:43 11:01 WBC RBC Hgb Hct MCV MCH MCHC RDW Plt Count MPV Immature Gran % (Auto) Neut % (Auto) Lymph % (Auto) Garden % (Auto) Eos % (Auto) Baso % (Auto) Lymph # (Auto) Garden # (Auto) Eos # (Auto) Baso # (Auto) Abs Immat Gran (auto) Absolute Neuts (auto) Absolute Nucleated RBC Nucleated RBC % (auto) Sodium Potassium Chloride Carbon Dioxide Anion Gap BUN Creatinine Estim Creat Clear Calc Estimated GFR POC Glucose 160 H 166 H Random Glucose Calcium Discharge Plan Discharge Anticipated Discharge Date/Time: 02/11/23 16:23 Patient Disposition: Xfer [facility] Discharge Diagnosis: rectal bleeding Referrals: Alek Kline MD [Physician] - 1 Week Physician,Kal Brooks [Physician] - 1 Week Discharge Medications: Continued ezetimibe 10 mg tablet 10 mg PO QAM Qty: 90 3RF carvedilol 6.25 mg tablet 6.25 mg PO BID 90 Days Qty: 180 3RF Rx Instructions: must administer with a meal/food atorvastatin 80 mg tablet 80 mg PO BEDTIME Qty: 90 3RF aspirin 81 mg tablet,delayed release (DR/EC) 81 mg PO BEDTIME 90 Days Qty: 90 3RF Praluent Pen 75 mg/mL pen injector 75 mg subcut Q2W Qty: 2 5RF Rx Instructions: inject into abdomen, thigh, or upper arm (deltoid muscle); rotate sites amlodipine 10 mg tablet 10 mg PO DAILY 90 Days Qty: 90 3RF ascorbic acid (vitamin C) [Vitamin C] 500 mg tablet 1 tab PO BID montelukast 10 mg tablet 1 tab PO BEDTIME budesonide-formoterol [Symbicort] 80-4.5 mcg/actuation HFA aerosol inhaler 2 puff inhalation BID insulin glargine [Lantus Solostar U-100 Insulin] 100 unit/mL (3 mL) insulin pen 7 unit subcut BEDTIME Rx Instructions: Patient states that if her blood sugar is greater than 100 she takes 7 units and if her blood sugar is less than 100 she takes no insulin. acetaminophen 500 mg tablet 1,000 mg PO Q8H PRN (Reason: Pain) lidocaine 5 % Ointment 1 appl TOPICAL DAILY PRN (Reason: Pain) cyanocobalamin (vitamin B-12) 1,000 mcg/mL solution 1,000 mcg IM QMONTH benzonatate 200 mg capsule 200 mg PO BID PRN (Reason: cough) sevelamer carbonate 800 mg tablet 1,600 mg PO TID insulin glargine [Lantus Solostar U-100 Insulin] 100 unit/mL (3 mL) insulin pen 8 unit subcut QAM hydrocodone-acetaminophen 5-325 mg tablet 1 tab PO Q6-8H PRN (Reason: pain) Qty: 30 0RF Rx Instructions: Partial Fill upon patient request. hydralazine 10 mg tablet 10 mg PO BID ferrous sulfate 325 mg (65 mg iron) tablet 325 mg PO BIDWM pantoprazole 40 mg tablet,delayed release (DR/EC) 40 mg PO DAILY@0630 sertraline 100 mg tablet 150 mg PO DAILY furosemide 40 mg tablet 120 mg PO BID cetirizine 5 mg tablet 5 mg PO DAILY Discharge Orders: Discharge Order (Routine); Ordered 02/11/23 Ordered By: Alek Kline Diet: Advance to usual diet Activity on Discharge: As tolerated Stand Alone Forms: Patient Portal Discharge page Care Plan Goals: improvement in pain Health Concerns: rectal bleeding s/p hemorrhoidectomy ESRD HTN DM Plan of Treatment: monitor H/H, bleeding transfer to STR F/u in office in 1 week Assessment: Improved
[2023-02-10 16:19] LABS: Glucose, Whole Blood 143 mg/dL (60-115)
[2023-02-10 20:02] VITALS: BP 151/69; PULSE 59; RESP 18; TEMP 36.8; O2SAT 100
[2023-02-10 20:50] LABS: Glucose, Whole Blood 206 mg/dL (60-115)
[2023-02-10] MEDS: Atorvastatin Calcium 80 MG TABLET PO (21:41)
[2023-02-10] MEDS: Montelukast Sodium 10 MG TABLET PO (21:42)
[2023-02-10 23:57] VITALS: BP 155/66; PULSE 60; RESP 16; TEMP 36.2; O2SAT 98
--- NOTE | 2023-02-11 08:24 | P.PNNP_ITS ---
Subjective Subjective Date of Service: 02/11/23 Interval history: seen and examined on dialysis no complaints Physical Exam Vital Signs: Vital Signs: Last Vital Signs Temp 97.1 F 02/10/23 23:57 Pulse 60 02/10/23 23:57 Resp 16 02/10/23 23:57 BP 155/66 H 02/10/23 23:57 Pulse Ox 98 02/10/23 23:57 O2 Del Method Room Air 02/10/23 23:57 O2 Flow Rate 2 02/10/23 07:44 FiO2 42 02/08/23 16:50 BMI result Body Mass Index 28.3 Const: General: alert and awake HEENT: Head: Yes normocephalic and Yes atraumatic Neck: Neck: Yes supple Resp: Auscultation: diminished lung sounds Cardio: Heart sounds: S1 normal heart sound present and S2 normal heart sound present GI: Palpation (GI): Soft to palpation and nontender Extrem: General: Yes edema Objective Data Labs 02/10/23 05:29 02/10/23 05:29 Labs: Laboratory Results - last 24 hr 02/10/23 02/10/23 02/10/23 11:01 16:16 20:47 POC Glucose 166 H 143 H 206 H Procedures Date of Service Date of Service: 02/11/23 Assessment & Plan Assessment and plan (1) ESRD (end stage renal disease): Status: Acute (2) Anemia: Status: Acute Plan usually has HD at [facility] s/p flexible sigmoidoscopy for evaluation of rectal bleed after recent hemorrhoidectomy REC HD today optimize volume status follow h/h renal diet ELYSSA phosphate binders Time Spent With Patient Time: Total time managing care of this patient today ____ minutes. Progress Note: Quality Stroke Does the patient have a stroke diagnosis?: No
[2023-02-11] MEDS: oxyCODONE HCl Immed Release 5 MG TABLET 10 MG PO (08:43)
[2023-02-11 09:48] LABS: Glucose, Whole Blood 125 mg/dL (60-115)
[2023-02-11] MEDS: Sevelamer Carbonate Tablet 800 MG TABLET 1600 MG PO ×3 (09:55→21:45)
[2023-02-11] MEDS: Ezetimibe 10 MG TABLET PO (09:55)
[2023-02-11] MEDS: Furosemide 40 MG TABLET 120 MG PO ×2 (09:55→21:45)
[2023-02-11] MEDS: Sertraline HCL 50 MG TABLET 150 MG PO (09:55)
[2023-02-11] MEDS: Insulin Glargine,Hum.rec.anlog 100 UNIT/ML 10 ML VIAL SUBCUT ×3 (09:56→21:43)
[2023-02-11] MEDS: carvediloL 6.25 MG TABLET PO ×2 (09:56→21:45)
[2023-02-11] MEDS: amLODIPine Besylate 10 MG TABLET PO (09:56)
[2023-02-11] MEDS: hydrALAZINE HCl 10 MG TABLET PO ×2 (09:56→21:45)
[2023-02-11] MEDS: 0.9 % Sodium Chloride Flush 3 ML SYRINGE IVFLUSH ×3 (09:56→21:46)
[2023-02-11 10:01] VITALS: BP 137/68; PULSE 72; RESP 18; TEMP 36.7; O2SAT 96
[2023-02-11 11:19] LABS: Glucose, Whole Blood 177 mg/dL (60-115)
--- NOTE | 2023-02-11 11:46 | HO.PM.IMPN ---
Subjective Subjective Date of Service: 02/12/23 Interval History: Seen at dialysis patient complaining of nausea and headache, took oxycodone empty stomach likely cause of nausea, history of intermittent headache no diagnosis of migraine, no visual symptoms, no weakness numbness, denies fever chills, no other acute issues overnight. No shortness of breath, no chest pain. Review of Systems All other system reviewed and negative. Physical Exam Vital Signs: Vital Signs: Last Vital Signs Temp 98.1 F 02/11/23 10:01 Pulse 72 02/11/23 10:01 Resp 18 02/11/23 10:01 BP 137/68 02/11/23 10:01 Pulse Ox 96 02/11/23 10:01 O2 Del Method Room Air 02/11/23 10:01 O2 Flow Rate 2 02/10/23 07:44 FiO2 42 02/08/23 16:50 BMI result Body Mass Index 28.3 Const: Other: General: Awake alert x3 mild distress due to headache and nausea. Neck no JVD Resp: CTA bilaterally CVS: S1, S2, R, 2/6 murmur GI: +BS, NT, no distention Skin: No rash Neuro: Cranial nerves II-XII grossly intact bilaterally. Motor grossly intact bilaterally Extremities: No edema Psych: Appropriate affect Objective Data Active Medications Acetaminophen (Acetaminophen 325 Mg Tablet) 650 mg PO Q6H PRN PRN Reason: fever, pain Last Admin: 02/10/23 15:47 Dose: 650 mg Documented By: ELIOT Amlodipine Besylate (Amlodipine Besylate 10 Mg Tablet) 10 mg PO DAILY [facility]; Protocol Last Admin: 02/11/23 09:56 Dose: 10 mg Documented By: CAMPBELL Atorvastatin Calcium (Atorvastatin Calcium 80 Mg Tablet) 80 mg PO BEDTIME [facility] Last Admin: 02/10/23 21:41 Dose: 80 mg Documented By: LEANNE Carvedilol (Carvedilol 6.25 Mg Tablet) 6.25 mg PO BID [facility]; Protocol Last Admin: 02/11/23 09:56 Dose: 6.25 mg Documented By: CAMPBELL Dextrose (Dextrose 50 % 25 Gm/50 Ml Syringe) 25 gm IVPUSH Q15M PRN; Protocol PRN Reason: per Hypoglycemia Standing Ord. Ezetimibe (Ezetimibe 10 Mg Tablet) 10 mg PO DAILY [facility] Last Admin: 02/11/23 09:55 Dose: 10 mg Documented By: CAMPEBLL Fluticasone/Vilanterol (Fluticasone/Vilanterol 100/25 Blst.W.Dev) 1 puff INHALE DAILY [facility] Last Admin: 02/11/23 08:35 Dose: Not Given Documented By: TITI Non-Admin Reason: Not In Room Furosemide (Furosemide 40 Mg Tablet) 120 mg PO BID [facility]; Protocol Last Admin: 02/11/23 09:55 Dose: 120 mg Documented By: CAMPBELL Glucose (Glucose Gel 15 Gm Gel..Gram.) 15 gm PO Q15M PRN; Protocol PRN Reason: per Hypoglycemia Standing Ord. Hydralazine HCl (Hydralazine Hcl 10 Mg Tablet) 10 mg PO BID [facility]; Protocol Last Admin: 02/11/23 09:56 Dose: 10 mg Documented By: CAMPBELL Insulin Glargine (Insulin Glargine,Hum.Rec.Anlog 100 Unit/Ml 10 Ml Vial) 5 unit SUBCUT BEDTIME [facility] Last Admin: 02/11/23 09:56 Dose: 5 unit Documented By: CAMPBELL Insulin Glargine (Insulin Glargine,Hum.Rec.Anlog 100 Unit/Ml 10 Ml Vial) 5 unit SUBCUT DAILY [facility] Last Admin: 02/11/23 10:05 Dose: 5 unit Documented By: CAMPBELL Insulin Human Lispro (Insulin Lispro 100 Unit/Ml 3 Ml Vial) 0 unit SUBCUT QIDACHS [facility]; Protocol Last Admin: 02/11/23 09:49 Dose: Not Given Documented By: CAMPBELL Non-Admin Reason: No Insulin Coverage Montelukast Sodium (Montelukast Sodium 10 Mg Tablet) 10 mg PO BEDTIME [facility] Last Admin: 02/10/23 21:42 Dose: 10 mg Documented By: LEANNE Morphine Sulfate (Morphine Sulfate 4 Mg/Ml Cartridge) 3 mg IVPUSH Q4H PRN; Protocol PRN Reason: Pain, Severe (Pain Scale 7-10) Omeprazole (Omeprazole 20 Mg Capsule.) 20 mg PO DAILY@0630 [facility] Last Admin: 02/11/23 05:44 Dose: Not Given Documented By: LEANNE Non-Admin Reason: at dialysis Ondansetron HCl (Ondansetron Hcl 4 Mg/2 Ml Vial) 4 mg IVPUSH Q6H PRN PRN Reason: Nausea and Vomiting Last Admin: 02/09/23 15:01 Dose: 4 mg Documented By: INGRID Oxycodone HCl (Oxycodone Hcl Immed Release 5 Mg Tablet) 5 mg PO Q4H PRN PRN Reason: Pain, Moderate(Pain Scale 4-6) Last Admin: 02/09/23 10:59 Dose: 5 mg Documented By: BRADFORD Oxycodone HCl (Oxycodone Hcl Immed Release 5 Mg Tablet) 10 mg PO Q4H PRN PRN Reason: Pain, Severe (Pain Scale 7-10) Last Admin: 02/11/23 08:43 Dose: 10 mg Documented By: CAMPBELL Sertraline HCl (Sertraline Hcl 50 Mg Tablet) 150 mg PO DAILY [facility] Last Admin: 02/11/23 09:55 Dose: 150 mg Documented By: CAMPBELL Sevelamer Carbonate (Sevelamer Carbonate Tablet 800 Mg Tablet) 1,600 mg PO TID [facility] Last Admin: 02/11/23 09:55 Dose: 1,600 mg Documented By: CAMPBELL Sodium Chloride (0.9 % Sodium Chloride Flush 3 Ml Syringe) 3 ml IVFLUSH QSHIFT [facility] Last Admin: 02/11/23 09:56 Dose: 3 ml Documented By: CAMPBELL Labs 02/10/23 05:29 02/10/23 05:29 Labs: Laboratory Results - last 24 hr 02/10/23 02/10/23 02/11/23 16:16 20:47 09:45 POC Glucose 143 H 206 H 125 H 02/11/23 11:16 POC Glucose 177 H Assessment and Plan (1) ESRD (end stage renal disease): Status: Acute (2) Acute lower gastrointestinal bleeding: Status: Acute Plan Pt is a 68-year-old female with a PMH significant for?with CAD, CABG in 2018, HTN, insulin-dependent diabetes, ESRD on dialysis on /Mon, and hemorrhoids who is admitted to the hospital under General Surgery for flexible sigmoidoscopy for evaluation of rectal bleeding after recent hemorrhoidectomy.? Patient is Citizen Of [place]-speaking only; educational interpreter services utilized. Acute GI bleed Patient's H&H 9.5 up from 6.1/19.0 after receiving 2 units of PRBCs No acute bleeding noted in last 48 hours Follow CBC and Transfuse as necessary Headache and nausea treated with IV Zofran and oxycodone with good affect. End-stage renal disease, dialysis Monday, and Monday Undergoing dialysis today being followed by Nephrology Follow BMP Hypertension stable blood pressure this morning ,Continue home meds ,Monitor BP closely Insulin-dependent diabetes type 2 stable blood sugars continue Lantus, sliding scale and Diabetic diet CAD Continue statin, Hold aspirin d/t acute GI bleed, resume at discharge HLD Continue statin, hold alirocumab COPD Does not seem to be in acute exacerbation,Continue home inhalers Ambulation Seen by Physical therapy and they recommend short-term rehab Thank you for allowing us to participate in the care of this patient.? Will continue to follow with you. Time Spent With Patient Time: Total time managing care of this patient today ____ minutes. Quality Stroke Does the patient have a stroke diagnosis?: No VTE Prior VTE?: No VTE Risk Level:: Surgical - low VTE Device Contraindication: Treatment Not Indicated VTE Drug Contraindication: Treatment Not Indicated
[2023-02-11] MEDS: Insulin Lispro 100 UNIT/ML 3 ML VIAL SUBCUT ×3 (12:32→21:41)
[2023-02-11 15:16] VITALS: BP 140/64; PULSE 63; RESP 16; TEMP 37.1; O2SAT 94
--- NOTE | 2023-02-11 16:05 | PM.PNGS ---
Subjective Subjective Date of Service: 02/11/23 Interval history: patient still complaining of a little bit of pain but says she cannot go home she has no one really to help take care for she can not move around. We are waiting for rehab placement but this may only happen next week Physical Exam Vital Signs: Vital Signs: Last Vital Signs Temp 98.7 F 02/11/23 15:16 Pulse 63 02/11/23 15:16 Resp 16 02/11/23 15:16 BP 140/64 H 02/11/23 15:16 Pulse Ox 94 02/11/23 15:16 O2 Del Method Room Air 02/11/23 15:16 O2 Flow Rate 2 02/10/23 07:44 FiO2 42 02/08/23 16:50 BMI result Body Mass Index 28.3 GI: Other: her abdomen is soft nondistended nontender. Objective Data Active Medications Acetaminophen (Acetaminophen 325 Mg Tablet) 650 mg PO Q6H PRN PRN Reason: fever, pain Last Admin: 02/10/23 15:47 Dose: 650 mg Documented By: ELIOT Amlodipine Besylate (Amlodipine Besylate 10 Mg Tablet) 10 mg PO DAILY [facility]; Protocol Last Admin: 02/11/23 09:56 Dose: 10 mg Documented By: CAMPBELL Atorvastatin Calcium (Atorvastatin Calcium 80 Mg Tablet) 80 mg PO BEDTIME [facility] Last Admin: 02/10/23 21:41 Dose: 80 mg Documented By: LEANNE Carvedilol (Carvedilol 6.25 Mg Tablet) 6.25 mg PO BID [facility]; Protocol Last Admin: 02/11/23 09:56 Dose: 6.25 mg Documented By: CAMPBELL Dextrose (Dextrose 50 % 25 Gm/50 Ml Syringe) 25 gm IVPUSH Q15M PRN; Protocol PRN Reason: per Hypoglycemia Standing Ord. Ezetimibe (Ezetimibe 10 Mg Tablet) 10 mg PO DAILY [facility] Last Admin: 02/11/23 09:55 Dose: 10 mg Documented By: CAMPBELL Fluticasone/Vilanterol (Fluticasone/Vilanterol 100/25 Blst.W.Dev) 1 puff INHALE DAILY [facility] Last Admin: 02/11/23 08:35 Dose: Not Given Documented By: TITI Non-Admin Reason: Not In Room Furosemide (Furosemide 40 Mg Tablet) 120 mg PO BID [facility]; Protocol Last Admin: 02/11/23 09:55 Dose: 120 mg Documented By: CAMPBELL Glucose (Glucose Gel 15 Gm Gel..Gram.) 15 gm PO Q15M PRN; Protocol PRN Reason: per Hypoglycemia Standing Ord. Hydralazine HCl (Hydralazine Hcl 10 Mg Tablet) 10 mg PO BID [facility]; Protocol Last Admin: 02/11/23 09:56 Dose: 10 mg Documented By: CAMPBELL Insulin Glargine (Insulin Glargine,Hum.Rec.Anlog 100 Unit/Ml 10 Ml Vial) 5 unit SUBCUT BEDTIME [facility] Last Admin: 02/11/23 09:56 Dose: 5 unit Documented By: CAMPBELL Insulin Glargine (Insulin Glargine,Hum.Rec.Anlog 100 Unit/Ml 10 Ml Vial) 5 unit SUBCUT DAILY [facility] Last Admin: 02/11/23 10:05 Dose: 5 unit Documented By: CAMPBELL Insulin Human Lispro (Insulin Lispro 100 Unit/Ml 3 Ml Vial) 0 unit SUBCUT QIDACHS [facility]; Protocol Last Admin: 02/11/23 12:32 Dose: 2 unit Documented By: CAMPBELL Montelukast Sodium (Montelukast Sodium 10 Mg Tablet) 10 mg PO BEDTIME [facility] Last Admin: 02/10/23 21:42 Dose: 10 mg Documented By: LEANNE Omeprazole (Omeprazole 20 Mg Capsule.Dr) 20 mg PO DAILY@0630 [facility] Last Admin: 02/11/23 05:44 Dose: Not Given Documented By: LEANNE Non-Admin Reason: at dialysis Ondansetron HCl (Ondansetron Hcl 4 Mg/2 Ml Vial) 4 mg IVPUSH Q6H PRN PRN Reason: Nausea and Vomiting Last Admin: 02/09/23 15:01 Dose: 4 mg Documented By: INGRID Oxycodone HCl (Oxycodone Hcl Immed Release 5 Mg Tablet) 5 mg PO Q4H PRN PRN Reason: Pain, Moderate(Pain Scale 4-6) Last Admin: 02/09/23 10:59 Dose: 5 mg Documented By: BRADFORD Sertraline HCl (Sertraline Hcl 50 Mg Tablet) 150 mg PO DAILY [facility] Last Admin: 02/11/23 09:55 Dose: 150 mg Documented By: CAMPBELL Sevelamer Carbonate (Sevelamer Carbonate Tablet 800 Mg Tablet) 1,600 mg PO TID [facility] Last Admin: 02/11/23 14:53 Dose: 1,600 mg Documented By: JOSE Sodium Chloride (0.9 % Sodium Chloride Flush 3 Ml Syringe) 3 ml IVFLUSH QSHIFT [facility] Last Admin: 02/11/23 14:54 Dose: 3 ml Documented By: JOSE Labs 02/10/23 05:29 02/10/23 05:29 Labs: Laboratory Results - last 24 hr 02/10/23 02/10/23 02/11/23 16:16 20:47 09:45 POC Glucose 143 H 206 H 125 H 02/11/23 11:16 POC Glucose 177 H Procedures Date of Service Date of Service: 02/11/23 Progress Note: A&P Assessment and plan (1) Hemorrhoids: Status: Acute Assessment and Plan: Patient is a 68-year-old female who underwent hemorrhoidectomy and had some postprocedure bleeding but is stable now. She needs to go to rehab and unfortunately there was no placement for her available this weekend but there is prominence but Monday that several options may open. As a result continue with plan and re-evaluate tomorrow for placement on Monday Time Spent With Patient Time: Total time managing care of this patient today ____ minutes. Quality Stroke Does the patient have a stroke diagnosis?: No VTE Prior VTE?: No VTE Risk Level:: Surgical - low VTE Device Contraindication: Treatment Not Indicated VTE Drug Contraindication: Treatment Not Indicated
--- NOTE | 2023-02-11 16:05 | PM.PNGS ---
Subjective Subjective Date of Service: 02/12/23 Interval history: Pt complaining of pain and so not ready to go home denies any bleeding is waiting to go to rehab Physical Exam Vital Signs: Vital Signs: Last Vital Signs Temp 98.7 F 02/11/23 15:16 Pulse 63 02/11/23 15:16 Resp 16 02/11/23 15:16 BP 140/64 H 02/11/23 15:16 Pulse Ox 94 02/11/23 15:16 O2 Del Method Room Air 02/11/23 15:16 O2 Flow Rate 2 02/10/23 07:44 FiO2 42 02/08/23 16:50 BMI result Body Mass Index 28.3 GI: Other: abdomen soft Objective Data Active Medications Acetaminophen (Acetaminophen 325 Mg Tablet) 650 mg PO Q6H PRN PRN Reason: fever, pain Last Admin: 02/10/23 15:47 Dose: 650 mg Documented By: ELITO Amlodipine Besylate (Amlodipine Besylate 10 Mg Tablet) 10 mg PO DAILY [facility]; Protocol Last Admin: 02/11/23 09:56 Dose: 10 mg Documented By: CAMPBELL Atorvastatin Calcium (Atorvastatin Calcium 80 Mg Tablet) 80 mg PO BEDTIME [facility] Last Admin: 02/10/23 21:41 Dose: 80 mg Documented By: LEANNE Carvedilol (Carvedilol 6.25 Mg Tablet) 6.25 mg PO BID [facility]; Protocol Last Admin: 02/11/23 09:56 Dose: 6.25 mg Documented By: CAMPBELL Dextrose (Dextrose 50 % 25 Gm/50 Ml Syringe) 25 gm IVPUSH Q15M PRN; Protocol PRN Reason: per Hypoglycemia Standing Ord. Ezetimibe (Ezetimibe 10 Mg Tablet) 10 mg PO DAILY [facility] Last Admin: 02/11/23 09:55 Dose: 10 mg Documented By: CAMPBELL Fluticasone/Vilanterol (Fluticasone/Vilanterol 100/25 Blst.W.Dev) 1 puff INHALE DAILY [facility] Last Admin: 02/11/23 08:35 Dose: Not Given Documented By: TITI Non-Admin Reason: Not In Room Furosemide (Furosemide 40 Mg Tablet) 120 mg PO BID [facility]; Protocol Last Admin: 02/11/23 09:55 Dose: 120 mg Documented By: CAMPBELL Glucose (Glucose Gel 15 Gm Gel..Gram.) 15 gm PO Q15M PRN; Protocol PRN Reason: per Hypoglycemia Standing Ord. Hydralazine HCl (Hydralazine Hcl 10 Mg Tablet) 10 mg PO BID [facility]; Protocol Last Admin: 02/11/23 09:56 Dose: 10 mg Documented By: CAMPBELL Insulin Glargine (Insulin Glargine,Hum.Rec.Anlog 100 Unit/Ml 10 Ml Vial) 5 unit SUBCUT BEDTIME [facility] Last Admin: 02/11/23 09:56 Dose: 5 unit Documented By: CAMPBELL Insulin Glargine (Insulin Glargine,Hum.Rec.Anlog 100 Unit/Ml 10 Ml Vial) 5 unit SUBCUT DAILY [facility] Last Admin: 02/11/23 10:05 Dose: 5 unit Documented By: CAMPBELL Insulin Human Lispro (Insulin Lispro 100 Unit/Ml 3 Ml Vial) 0 unit SUBCUT QIDACHS [facility]; Protocol Last Admin: 02/11/23 12:32 Dose: 2 unit Documented By: CAMPBELL Montelukast Sodium (Montelukast Sodium 10 Mg Tablet) 10 mg PO BEDTIME [facility] Last Admin: 02/10/23 21:42 Dose: 10 mg Documented By: LEANNE Omeprazole (Omeprazole 20 Mg Capsule.Dr) 20 mg PO DAILY@0630 [facility] Last Admin: 02/11/23 05:44 Dose: Not Given Documented By: LEANNE Non-Admin Reason: at dialysis Ondansetron HCl (Ondansetron Hcl 4 Mg/2 Ml Vial) 4 mg IVPUSH Q6H PRN PRN Reason: Nausea and Vomiting Last Admin: 02/09/23 15:01 Dose: 4 mg Documented By: INGRID Oxycodone HCl (Oxycodone Hcl Immed Release 5 Mg Tablet) 5 mg PO Q4H PRN PRN Reason: Pain, Moderate(Pain Scale 4-6) Last Admin: 02/09/23 10:59 Dose: 5 mg Documented By: COTNOÉ Sertraline HCl (Sertraline Hcl 50 Mg Tablet) 150 mg PO DAILY [facility] Last Admin: 02/11/23 09:55 Dose: 150 mg Documented By: CAMPBELL Sevelamer Carbonate (Sevelamer Carbonate Tablet 800 Mg Tablet) 1,600 mg PO TID [facility] Last Admin: 02/11/23 14:53 Dose: 1,600 mg Documented By: JOSE Sodium Chloride (0.9 % Sodium Chloride Flush 3 Ml Syringe) 3 ml IVFLUSH QSHIFT [facility] Last Admin: 02/11/23 14:54 Dose: 3 ml Documented By: JOSE Labs 02/10/23 05:29 02/10/23 05:29 Labs: Laboratory Results - last 24 hr 02/10/23 02/10/23 02/11/23 16:16 20:47 09:45 POC Glucose 143 H 206 H 125 H 02/11/23 11:16 POC Glucose 177 H Procedures Date of Service Date of Service: 02/12/23 Progress Note: A&P Assessment and plan (1) Acute lower gastrointestinal bleeding: Status: Acute Assessment and Plan: pt doing well - hct stable no bleeding waiting for rehab which may be early next week. Time Spent With Patient Time: Total time managing care of this patient today ____ minutes. Quality Stroke Does the patient have a stroke diagnosis?: No VTE Prior VTE?: No VTE Risk Level:: Surgical - low VTE Device Contraindication: Treatment Not Indicated VTE Drug Contraindication: Treatment Not Indicated
[2023-02-11 16:18] LABS: Glucose, Whole Blood 209 mg/dL (60-115)
[2023-02-11 20:38] VITALS: BP 166/77; PULSE 62; RESP 18; TEMP 37.1; O2SAT 97
[2023-02-11 20:52] LABS: Glucose, Whole Blood 213 mg/dL (60-115)
[2023-02-11] MEDS: Montelukast Sodium 10 MG TABLET PO (21:45)
[2023-02-11] MEDS: Atorvastatin Calcium 80 MG TABLET PO (21:45)
[2023-02-11 23:39] VITALS: BP 139/63; PULSE 61; RESP 16; TEMP 36.5; O2SAT 97
[2023-02-12] MEDS: Omeprazole 20 MG CAPSULE.DR PO (06:29)
[2023-02-12 07:07] VITALS: BP 185/81; PULSE 63; RESP 16; TEMP 36.7; O2SAT 93
[2023-02-12 07:29] LABS: Glucose, Whole Blood 91 mg/dL (60-115)
--- NOTE | 2023-02-12 07:56 | P.PNNP_ITS ---
Subjective Subjective Date of Service: 02/12/23 Interval history: seen and examined c/o itching had HD yesterday Physical Exam Vital Signs: Vital Signs: Last Vital Signs Temp 98.0 F 02/12/23 07:07 Pulse 63 02/12/23 07:07 Resp 16 02/12/23 07:07 BP 185/81 H 02/12/23 07:07 Pulse Ox 93 02/12/23 07:07 O2 Del Method Room Air 02/12/23 07:07 O2 Flow Rate 2 02/10/23 07:44 FiO2 42 02/08/23 16:50 BMI result Body Mass Index 28.3 Const: General: alert and awake HEENT: Head: Yes normocephalic and Yes atraumatic Neck: Neck: Yes supple Resp: Auscultation: diminished lung sounds Cardio: Heart sounds: S1 normal heart sound present and S2 normal heart sound present GI: Palpation (GI): Soft to palpation and nontender Extrem: General: Yes edema Objective Data Labs 02/10/23 05:29 02/10/23 05:29 Labs: Laboratory Results - last 24 hr 02/11/23 02/11/23 02/11/23 09:45 11:16 16:15 POC Glucose 125 H 177 H 209 H 02/11/23 02/12/23 20:41 07:24 POC Glucose 213 H 91 Procedures Date of Service Date of Service: 02/12/23 Assessment & Plan Assessment and plan (1) ESRD (end stage renal disease): Status: Acute (2) Anemia: Status: Acute Plan s/p HD yesterday usually has HD at [facility] tts2 s/p flexible sigmoidoscopy for evaluation of rectal bleed after recent h emorrhoidectomy REC HD per schedule follow h/h renal diet ELSYSA phosphate binders Time Spent With Patient Time: Total time managing care of this patient today ____ minutes. Progress Note: Quality Stroke Does the patient have a stroke diagnosis?: No
[2023-02-12] MEDS: Fluticasone/Vilanterol 100/25 BLST.W.DEV 1 PUFF INHALE (08:27)
[2023-02-12] MEDS: Insulin Glargine,Hum.rec.anlog 100 UNIT/ML 10 ML VIAL SUBCUT ×2 (08:51→21:43)
[2023-02-12] MEDS: Sertraline HCL 50 MG TABLET 150 MG PO (08:52)
[2023-02-12] MEDS: Sevelamer Carbonate Tablet 800 MG TABLET 1600 MG PO ×3 (08:52→21:43)
[2023-02-12] MEDS: hydrALAZINE HCl 10 MG TABLET PO ×2 (08:52→21:43)
[2023-02-12] MEDS: Furosemide 40 MG TABLET 120 MG PO ×2 (08:52→21:44)
[2023-02-12] MEDS: amLODIPine Besylate 10 MG TABLET PO (08:53)
[2023-02-12] MEDS: carvediloL 6.25 MG TABLET PO (08:53)
[2023-02-12] MEDS: Ezetimibe 10 MG TABLET PO (08:53)
--- NOTE | 2023-02-12 09:27 | MHC.CM.PN ---
D/C order for txfr to SNF. PT eval indicative of STR reccommendation. Per [facility]scripts, [facility] stated [facility] do not have any HD slots available, however this CM inquired if they would be willing to consider Pt for STR and send Pt out to her already established HD slot (per previous CM notes) at [facility] in [place] on T, Th, Sat. Pending response. This CM also inquired from [facility] the same. Pending response from this Center too. CM to follow.
[2023-02-12 11:15] LABS: Glucose, Whole Blood 195 mg/dL (60-115)
[2023-02-12] MEDS: Insulin Lispro 100 UNIT/ML 3 ML VIAL SUBCUT ×2 (11:36→16:34)
[2023-02-12] MEDS: oxyCODONE HCl Immed Release 5 MG TABLET PO (11:36)
[2023-02-12] MEDS: Acetaminophen 325 MG TABLET 650 MG PO (11:37)
--- NOTE | 2023-02-12 12:23 | MHC.CM.PN ---
Spoke w/MD; Pt to be re-evaled by PT tomorrow, potential for a home D/C and question [facility] to evaluate for increased services if needed, and in-home PT, w/return to previous HD slot in community. [facility] denied and [facility] needs to check HD slots [place] [facility] (they're unable to provide transport to OP HD at Pt's prev HD). Again, potentially may be D/C'ing back to home instead. CM to follow.
--- NOTE | 2023-02-12 13:07 | HO.PM.IMPN ---
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 Review of Systems All other system reviewed and negative Physical Exam Vital Signs: Vital Signs: Last Vital Signs Temp 98.0 F 02/12/23 07:07 Pulse 63 02/12/23 07:07 Resp 16 02/12/23 07:07 BP 185/81 H 02/12/23 07:07 Pulse Ox 93 02/12/23 07:07 O2 Del Method Room Air 02/12/23 07:07 O2 Flow Rate 2 02/10/23 07:44 FiO2 42 02/08/23 16:50 BMI result Body Mass Index 28.3 Const: Other: General:? Awake alert x3, no acute distress. Neck no JVD Resp: CTA bilaterally CVS: S1, S2, R, 2/6 murmur GI: +BS, NT, no distention Skin: No rash Neuro: Cranial nerves II-XII grossly intact bilaterally. Motor grossly intact bilaterally Extremities: No edema Psych: Appropriate affect Objective Data Active Medications Acetaminophen (Acetaminophen 325 Mg Tablet) 650 mg PO Q6H PRN PRN Reason: fever, pain Last Admin: 02/12/23 11:37 Dose: 650 mg Documented By: JOSE Amlodipine Besylate (Amlodipine Besylate 10 Mg Tablet) 10 mg PO DAILY [facility]; Protocol Last Admin: 02/12/23 08:53 Dose: 10 mg Documented By: JOSE Atorvastatin Calcium (Atorvastatin Calcium 80 Mg Tablet) 80 mg PO BEDTIME [facility] Last Admin: 02/11/23 21:45 Dose: 80 mg Documented By: LEANNE Carvedilol (Carvedilol 6.25 Mg Tablet) 6.25 mg PO BID [facility]; Protocol Last Admin: 02/12/23 08:53 Dose: 6.25 mg Documented By: JOSE Dextrose (Dextrose 50 % 25 Gm/50 Ml Syringe) 25 gm IVPUSH Q15M PRN; Protocol PRN Reason: per Hypoglycemia Standing Ord. Ezetimibe (Ezetimibe 10 Mg Tablet) 10 mg PO DAILY [facility] Last Admin: 02/12/23 08:53 Dose: 10 mg Documented By: JOSE Fluticasone/Vilanterol (Fluticasone/Vilanterol 100/25 Blst.W.Dev) 1 puff INHALE DAILY [facility] Last Admin: 02/12/23 08:27 Dose: 1 puff Documented By: LEXY Furosemide (Furosemide 40 Mg Tablet) 120 mg PO BID [facility]; Protocol Last Admin: 02/12/23 08:52 Dose: 120 mg Documented By: JOSE Glucose (Glucose Gel 15 Gm Gel..Gram.) 15 gm PO Q15M PRN; Protocol PRN Reason: per Hypoglycemia Standing Ord. Hydralazine HCl (Hydralazine Hcl 10 Mg Tablet) 10 mg PO BID [facility]; Protocol Last Admin: 02/12/23 08:52 Dose: 10 mg Documented By: JOSE Insulin Glargine (Insulin Glargine,Hum.Rec.Anlog 100 Unit/Ml 10 Ml Vial) 5 unit SUBCUT BEDTIME [facility] Last Admin: 02/11/23 21:43 Dose: 5 unit Documented By: LEANNE Insulin Glargine (Insulin Glargine,Hum.Rec.Anlog 100 Unit/Ml 10 Ml Vial) 5 unit SUBCUT DAILY [facility] Last Admin: 02/12/23 08:51 Dose: 5 unit Documented By: JOSE Insulin Human Lispro (Insulin Lispro 100 Unit/Ml 3 Ml Vial) 0 unit SUBCUT QIDACHS [facility]; Protocol Last Admin: 02/12/23 11:36 Dose: 2 unit Documented By: JOSE Montelukast Sodium (Montelukast Sodium 10 Mg Tablet) 10 mg PO BEDTIME [facility] Last Admin: 02/11/23 21:45 Dose: 10 mg Documented By: LEANNE Omeprazole (Omeprazole 20 Mg Capsule.Dr) 20 mg PO DAILY@0630 [facility] Last Admin: 02/12/23 06:29 Dose: 20 mg Documented By: LEANNE Ondansetron HCl (Ondansetron Hcl 4 Mg/2 Ml Vial) 4 mg IVPUSH Q6H PRN PRN Reason: Nausea and Vomiting Last Admin: 02/09/23 15:01 Dose: 4 mg Documented By: INGRID Oxycodone HCl (Oxycodone Hcl Immed Release 5 Mg Tablet) 5 mg PO Q4H PRN PRN Reason: Pain, Moderate(Pain Scale 4-6) Last Admin: 02/12/23 11:36 Dose: 5 mg Documented By: JOSE Sertraline HCl (Sertraline Hcl 50 Mg Tablet) 150 mg PO DAILY [facility] Last Admin: 02/12/23 08:52 Dose: 150 mg Documented By: JOSE Sevelamer Carbonate (Sevelamer Carbonate Tablet 800 Mg Tablet) 1,600 mg PO TID [facility] Last Admin: 02/12/23 08:52 Dose: 1,600 mg Documented By: JSOE Sodium Chloride (0.9 % Sodium Chloride Flush 3 Ml Syringe) 3 ml IVFLUSH QSHIFT [facility] Last Admin: 02/12/23 08:58 Dose: Not Given Documented By: JOSE Non-Admin Reason: Patient Asleep Labs 02/10/23 05:29 02/10/23 05:29 Labs: Laboratory Results - last 24 hr 02/11/23 02/11/23 02/12/23 16:15 20:41 07:24 POC Glucose 209 H 213 H 91 02/12/23 11:09 POC Glucose 195 H Assessment and Plan (1) ESRD (end stage renal disease): Status: Acute (2) Acute lower gastrointestinal bleeding: Status: Acute Plan Pt is a 68-year-old female with a PMH significant for?with CAD, CABG in 2018, HTN, insulin-dependent diabetes, ESRD on dialysis on Mon//Mon, and hemorrhoids who is admitted to the hospital under General Surgery for flexible sigmoidoscopy for evaluation of rectal bleeding after recent hemorrhoidectomy.? 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 Acute GI bleed after rectal hemorrhoidectomy Patient's H&H 9.5 up from 6.1/19.0 after receiving 2 units of PRBCs No acute bleeding noted in last 48 hours Follow CBC and Transfuse as necessary Constipation likely due to pain and narcotics will add stool softeners. Headache and nausea treated with IV Zofran and oxycodone with good affect. No recurrent symptoms End-stage renal disease, dialysis Monday, and Monday Undergoing dialysis today being followed by Nephrology Follow BMP Hypertension stable blood pressure this morning ,Continue home meds ,Monitor BP closely Insulin-dependent diabetes type 2 stable blood sugars continue Lantus, sliding scale and Diabetic diet CAD Continue statin, Hold aspirin d/t acute GI bleed, resume at discharge HLD Continue statin, hold alirocumab COPD Does not seem to be in acute exacerbation,Continue home inhalers Ambulation Seen by Physical therapy and they recommend short-term rehab Surgical patient dispo as per General surgery Time Spent With Patient Time: Total time managing care of this patient today ____ minutes. Quality Stroke Does the patient have a stroke diagnosis?: No VTE Prior VTE?: No VTE Risk Level:: Surgical - low VTE Device Contraindication: Treatment Not Indicated VTE Drug Contraindication: Treatment Not Indicated
[2023-02-12] MEDS: polyethylene glycoL 3350 17 GM POWD.PACK PO (13:38)
[2023-02-12] MEDS: Docusate Sodium 100 MG CAPSULE 200 MG PO (13:38)
[2023-02-12] MEDS: 0.9 % Sodium Chloride Flush 3 ML SYRINGE IVFLUSH ×2 (15:15→21:44)
[2023-02-12 15:34] VITALS: BP 168/72; PULSE 54; RESP 16; TEMP 36.6; O2SAT 97
[2023-02-12 16:15] LABS: Glucose, Whole Blood 153 mg/dL (60-115)
--- NOTE | 2023-02-12 17:10 | PM.PNGS ---
Subjective Subjective Date of Service: 02/12/23 Interval history: still complaining of pain and family wanting her to go to a rehab here in [facility] where else vitals stable and no bleeding Physical Exam Vital Signs: Vital Signs: Last Vital Signs Temp 97.9 F 02/12/23 15:34 Pulse 54 02/12/23 15:34 Resp 16 02/12/23 15:34 BP 168/72 H 02/12/23 15:34 Pulse Ox 97 02/12/23 15:34 O2 Del Method Room Air 02/12/23 15:34 O2 Flow Rate 2 02/10/23 07:44 FiO2 42 02/08/23 16:50 BMI result Body Mass Index 28.3 GI: Other: benign Objective Data Active Medications Acetaminophen (Acetaminophen 325 Mg Tablet) 650 mg PO Q6H PRN PRN Reason: fever, pain Last Admin: 02/12/23 11:37 Dose: 650 mg Documented By: JOSE Amlodipine Besylate (Amlodipine Besylate 10 Mg Tablet) 10 mg PO DAILY [facility]; Protocol Last Admin: 02/12/23 08:53 Dose: 10 mg Documented By: JOSE Atorvastatin Calcium (Atorvastatin Calcium 80 Mg Tablet) 80 mg PO BEDTIME [facility] Last Admin: 02/11/23 21:45 Dose: 80 mg Documented By: LEANNE Carvedilol (Carvedilol 6.25 Mg Tablet) 6.25 mg PO BID [facility]; Protocol Last Admin: 02/12/23 08:53 Dose: 6.25 mg Documented By: JOSE Dextrose (Dextrose 50 % 25 Gm/50 Ml Syringe) 25 gm IVPUSH Q15M PRN; Protocol PRN Reason: per Hypoglycemia Standing Ord. Docusate Sodium (Docusate Sodium 100 Mg Capsule) 200 mg PO DAILY [facility] Last Admin: 02/12/23 13:38 Dose: 200 mg Documented By: JOSE Ezetimibe (Ezetimibe 10 Mg Tablet) 10 mg PO DAILY [facility] Last Admin: 02/12/23 08:53 Dose: 10 mg Documented By: JOSE Fluticasone/Vilanterol (Fluticasone/Vilanterol 100/25 Blst.W.Dev) 1 puff INHALE DAILY [facility] Last Admin: 02/12/23 08:27 Dose: 1 puff Documented By: LEXY Furosemide (Furosemide 40 Mg Tablet) 120 mg PO BID [facility]; Protocol Last Admin: 02/12/23 08:52 Dose: 120 mg Documented By: JOSE Glucose (Glucose Gel 15 Gm Gel..Gram.) 15 gm PO Q15M PRN; Protocol PRN Reason: per Hypoglycemia Standing Ord. Hydralazine HCl (Hydralazine Hcl 10 Mg Tablet) 10 mg PO BID [facility]; Protocol Last Admin: 02/12/23 08:52 Dose: 10 mg Documented By: JOSE Insulin Glargine (Insulin Glargine,Hum.Rec.Anlog 100 Unit/Ml 10 Ml Vial) 5 unit SUBCUT BEDTIME [facility] Last Admin: 02/11/23 21:43 Dose: 5 unit Documented By: LEANNE Insulin Glargine (Insulin Glargine,Hum.Rec.Anlog 100 Unit/Ml 10 Ml Vial) 5 unit SUBCUT DAILY [facility] Last Admin: 02/12/23 08:51 Dose: 5 unit Documented By: JOSE Insulin Human Lispro (Insulin Lispro 100 Unit/Ml 3 Ml Vial) 0 unit SUBCUT QIDACHS [facility]; Protocol Last Admin: 02/12/23 16:34 Dose: 2 unit Documented By: JOSE Montelukast Sodium (Montelukast Sodium 10 Mg Tablet) 10 mg PO BEDTIME [facility] Last Admin: 02/11/23 21:45 Dose: 10 mg Documented By: LEANNE Omeprazole (Omeprazole 20 Mg Capsule.Dr) 20 mg PO DAILY@0630 [facility] Last Admin: 02/12/23 06:29 Dose: 20 mg Documented By: LEANNE Ondansetron HCl (Ondansetron Hcl 4 Mg/2 Ml Vial) 4 mg IVPUSH Q6H PRN PRN Reason: Nausea and Vomiting Last Admin: 02/09/23 15:01 Dose: 4 mg Documented By: INGRID Oxycodone HCl (Oxycodone Hcl Immed Release 5 Mg Tablet) 5 mg PO Q4H PRN PRN Reason: Pain, Moderate(Pain Scale 4-6) Last Admin: 02/12/23 11:36 Dose: 5 mg Documented By: JOSE Polyethylene Glycol (Polyethylene Glycol 3350 17 Gm Powd.Pack) 17 gm PO DAILY [facility] Last Admin: 02/12/23 13:38 Dose: 17 gm Documented By: JOSE Sertraline HCl (Sertraline Hcl 50 Mg Tablet) 150 mg PO DAILY [facility] Last Admin: 02/12/23 08:52 Dose: 150 mg Documented By: JOSE Sevelamer Carbonate (Sevelamer Carbonate Tablet 800 Mg Tablet) 1,600 mg PO TID [facility] Last Admin: 02/12/23 15:15 Dose: 1,600 mg Documented By: JOSE Sodium Chloride (0.9 % Sodium Chloride Flush 3 Ml Syringe) 3 ml IVFLUSH QSHIFT [facility] Last Admin: 02/12/23 15:15 Dose: 3 ml Documented By: JOSE Labs 02/10/23 05:29 02/10/23 05:29 Labs: Laboratory Results - last 24 hr 02/11/23 02/12/23 02/12/23 20:41 07:24 11:09 POC Glucose 213 H 91 195 H 02/12/23 16:11 POC Glucose 153 H Procedures Date of Service Date of Service: 02/12/23 Progress Note: A&P Assessment and plan (1) Acute lower gastrointestinal bleeding: Status: Acute Assessment and Plan: pt is stable and no bleeding s/p hemorrhoidectomy - did fine with dialysis needs to ambulate ? can go home with services vs needs to go to a rehab with dialysis will have PT reeval tomorrow Time Spent With Patient Time: Total time managing care of this patient today ____ minutes. Quality Stroke Does the patient have a stroke diagnosis?: No VTE Prior VTE?: No VTE Risk Level:: Surgical - low VTE Device Contraindication: Treatment Not Indicated VTE Drug Contraindication: Treatment Not Indicated
[2023-02-12] MEDS: ondansetron HCL 4 MG/2 ML VIAL IVPUSH (19:54)
[2023-02-12 20:22] LABS: Glucose, Whole Blood 143 mg/dL (60-115)
[2023-02-12] MEDS: Milk of Magnesia 30 ML ORAL.SUSP PO (21:42)
[2023-02-12] MEDS: Montelukast Sodium 10 MG TABLET PO (21:43)
[2023-02-12] MEDS: Atorvastatin Calcium 80 MG TABLET PO (21:44)
[2023-02-13] VITALS: BP 120/60; PULSE 51; RESP 17; TEMP 36.6; O2SAT 96
[2023-02-13] MEDS: Omeprazole 20 MG CAPSULE.DR PO (06:32)
[2023-02-13 07:34] LABS: Glucose, Whole Blood 106 mg/dL (60-115)
[2023-02-13 07:48] VITALS: BP 128/60; PULSE 54; RESP 16; TEMP 36.3; O2SAT 93
[2023-02-13] MEDS: Fluticasone/Vilanterol 100/25 BLST.W.DEV 1 PUFF INHALE (08:06)
[2023-02-13 08:09] VITALS: PULSE 61; RESP 16; O2SAT 94
[2023-02-13] MEDS: polyethylene glycoL 3350 17 GM POWD.PACK PO (08:48)
[2023-02-13] MEDS: Docusate Sodium 100 MG CAPSULE 200 MG PO ×2 (08:48→21:30)
[2023-02-13] MEDS: Insulin Glargine,Hum.rec.anlog 100 UNIT/ML 10 ML VIAL SUBCUT ×2 (08:49→21:34)
[2023-02-13] MEDS: Sevelamer Carbonate Tablet 800 MG TABLET 1600 MG PO ×3 (08:49→21:30)
[2023-02-13] MEDS: oxyCODONE HCl Immed Release 5 MG TABLET PO (08:49)
[2023-02-13] MEDS: amLODIPine Besylate 10 MG TABLET PO (08:49)
[2023-02-13] MEDS: Furosemide 40 MG TABLET 120 MG PO ×2 (08:49→21:30)
[2023-02-13] MEDS: Acetaminophen 325 MG TABLET 650 MG PO ×2 (08:49→23:59)
[2023-02-13] MEDS: carvediloL 6.25 MG TABLET PO (08:50)
[2023-02-13] MEDS: Sertraline HCL 50 MG TABLET 150 MG PO (08:50)
[2023-02-13] MEDS: hydrALAZINE HCl 10 MG TABLET PO ×2 (08:50→21:31)
[2023-02-13] MEDS: Ezetimibe 10 MG TABLET PO (08:50)
--- NOTE | 2023-02-13 08:50 | P.PNGS_ITS ---
Subjective Subjective Date of Service: 02/13/23 Interval history: No events over the weekend. Still complaining of pain and family wanting her to go to a rehab here in [place] no where else. C/o no BM since admission. Started on colace, miralax and given MOM yesterday. Physical Exam Vital Signs: Vital Signs: Last Vital Signs Temp 97.3 F 02/13/23 07:48 Pulse 61 02/13/23 08:09 Resp 16 02/13/23 08:09 BP 128/60 02/13/23 07:48 Pulse Ox 93 02/13/23 07:48 O2 Del Method Room Air 02/13/23 07:48 O2 Flow Rate 2 02/10/23 07:44 FiO2 42 02/08/23 16:50 BMI result Body Mass Index 28.3 Const: General: comfortable, no acute distress and alert Orientation/consciousness: patient oriented x3 Resp: Effort & Inspection: normal respiratory effort GI: Other: external rectal- bloody stool on harper, no active bleeding noted rectally Inspection: No distended Palpation (GI): Soft to palpation and nontender Skin: General skin exam: no rashes or lesions noted Neuro: General: patient oriented x3 Objective Data Active Medications Acetaminophen (Acetaminophen 325 Mg Tablet) 650 mg PO Q6H PRN PRN Reason: fever, pain Last Admin: 02/12/23 11:37 Dose: 650 mg Documented By: JOSE Amlodipine Besylate (Amlodipine Besylate 10 Mg Tablet) 10 mg PO DAILY [facility]; Protocol Last Admin: 02/12/23 08:53 Dose: 10 mg Documented By: JOSE Atorvastatin Calcium (Atorvastatin Calcium 80 Mg Tablet) 80 mg PO BEDTIME [facility] Last Admin: 02/12/23 21:44 Dose: 80 mg Documented By: LEANNE Carvedilol (Carvedilol 6.25 Mg Tablet) 6.25 mg PO BID [facility]; Protocol Last Admin: 02/12/23 21:44 Dose: Not Given Documented By: LEANNE Non-Admin Reason: Decreased Heart Rate Dextrose (Dextrose 50 % 25 Gm/50 Ml Syringe) 25 gm IVPUSH Q15M PRN; Protocol PRN Reason: per Hypoglycemia Standing Ord. Docusate Sodium (Docusate Sodium 100 Mg Capsule) 200 mg PO DAILY [facility] Last Admin: 02/12/23 13:38 Dose: 200 mg Documented By: JOSE Ezetimibe (Ezetimibe 10 Mg Tablet) 10 mg PO DAILY [facility] Last Admin: 02/12/23 08:53 Dose: 10 mg Documented By: JOSE Fluticasone/Vilanterol (Fluticasone/Vilanterol 100/25 Blst.W.Dev) 1 puff INHALE DAILY [facility] Last Admin: 02/13/23 08:06 Dose: 1 puff Documented By: RJ Furosemide (Furosemide 40 Mg Tablet) 120 mg PO BID [facility]; Protocol Last Admin: 02/12/23 21:44 Dose: 120 mg Documented By: LEANNE Glucose (Glucose Gel 15 Gm Gel..Gram.) 15 gm PO Q15M PRN; Protocol PRN Reason: per Hypoglycemia Standing Ord. Hydralazine HCl (Hydralazine Hcl 10 Mg Tablet) 10 mg PO BID [facility]; Protocol Last Admin: 02/12/23 21:43 Dose: 10 mg Documented By: LEANNE Insulin Glargine (Insulin Glargine,Hum.Rec.Anlog 100 Unit/Ml 10 Ml Vial) 5 unit SUBCUT BEDTIME [facility] Last Admin: 02/12/23 21:43 Dose: 5 unit Documented By: LEANNE Insulin Glargine (Insulin Glargine,Hum.Rec.Anlog 100 Unit/Ml 10 Ml Vial) 5 unit SUBCUT DAILY [facility] Last Admin: 02/12/23 08:51 Dose: 5 unit Documented By: JOSE Insulin Human Lispro (Insulin Lispro 100 Unit/Ml 3 Ml Vial) 0 unit SUBCUT QIDACHS [facility]; Protocol Last Admin: 02/13/23 07:36 Dose: Not Given Documented By: BRADFORD Non-Admin Reason: No Insulin Coverage Montelukast Sodium (Montelukast Sodium 10 Mg Tablet) 10 mg PO BEDTIME [facility] Last Admin: 02/12/23 21:43 Dose: 10 mg Documented By: LEANNE Omeprazole (Omeprazole 20 Mg Capsule.) 20 mg PO DAILY@0630 [facility] Last Admin: 02/13/23 06:32 Dose: 20 mg Documented By: LEANNE Ondansetron HCl (Ondansetron Hcl 4 Mg/2 Ml Vial) 4 mg IVPUSH Q6H PRN PRN Reason: Nausea and Vomiting Last Admin: 02/12/23 19:54 Dose: 4 mg Documented By: LEANNE Oxycodone HCl (Oxycodone Hcl Immed Release 5 Mg Tablet) 5 mg PO Q4H PRN PRN Reason: Pain, Moderate(Pain Scale 4-6) Last Admin: 02/12/23 11:36 Dose: 5 mg Documented By: JOSE Polyethylene Glycol (Polyethylene Glycol 3350 17 Gm Powd.Pack) 17 gm PO DAILY [facility] Last Admin: 02/12/23 13:38 Dose: 17 gm Documented By: JOSE Sertraline HCl (Sertraline Hcl 50 Mg Tablet) 150 mg PO DAILY [facility] Last Admin: 02/12/23 08:52 Dose: 150 mg Documented By: JOSE Sevelamer Carbonate (Sevelamer Carbonate Tablet 800 Mg Tablet) 1,600 mg PO TID [facility] Last Admin: 02/12/23 21:43 Dose: 1,600 mg Documented By: LEANNE Sodium Chloride (0.9 % Sodium Chloride Flush 3 Ml Syringe) 3 ml IVFLUSH QSHIFT [facility] Last Admin: 02/12/23 21:44 Dose: 3 ml Documented By: LEANNE Labs 02/10/23 05:29 02/10/23 05:29 Labs: Laboratory Results - last 24 hr 02/12/23 02/12/23 02/12/23 11:09 16:11 20:18 POC Glucose 195 H 153 H 143 H 02/13/23 07:30 POC Glucose 106 Procedures Date of Service Date of Service: 02/13/23 Progress Note: A&P Assessment and plan (1) Anemia: Status: Acute (2) ESRD (end stage renal disease): Status: Acute (3) Acute lower gastrointestinal bleeding: Status: Acute Plan 68 year old female with multiple medical comorbidities admitted for post op pain and rectal bleeding 2 weeks s/p hemorroidectomy. EUA, flex sig showed no active bleeding but had significant clots in rectum. Bowel regimen initiated yesterday- has constipation at baseline and likely worsened by narcotics. Encouraged to reduce narcotics. Scant blood noted today but no active bleeding on rectal exam. Will ask PT to reassess for dispo planning. Family requesting STR in [place] only. Time Spent With Patient Time: Total time managing care of this patient today ____ minutes. Quality Stroke Does the patient have a stroke diagnosis?: No VTE Prior VTE?: No VTE Risk Level:: Surgical - low VTE Device Contraindication: Treatment Not Indicated VTE Drug Contraindication: Treatment Not Indicated
[2023-02-13] MEDS: 0.9 % Sodium Chloride Flush 3 ML SYRINGE IVFLUSH ×3 (09:01→21:31)
--- NOTE | 2023-02-13 11:13 | P.PNIM_ITS ---
Subjective Subjective Date of Service: 02/13/23 Interval History: This history was taken in Urdu from the patient. No active rectal bleeding Review of Systems Review of Systems: Yes all other systems are reviewed and are negative Physical Exam Vital Signs: Vital Signs: Last Vital Signs Temp 97.3 F 02/13/23 07:48 Pulse 61 02/13/23 08:09 Resp 16 02/13/23 08:09 BP 128/60 02/13/23 07:48 Pulse Ox 93 02/13/23 07:48 O2 Del Method Room Air 02/13/23 07:48 O2 Flow Rate 2 02/10/23 07:44 FiO2 42 02/08/23 16:50 BMI result Body Mass Index 28.3 Gen: in no acute distress HEENT: sclera anicteric, moist mucus membranes Neck: supple Lungs: clear to auscultation bilaterally Heart: regular rate and rhythm, no murmurs Abd: soft, non-tender, non-distended Ext: no edema Skin: warm/well-perfused Neuro: alert and oriented x3, no focal findings Psych: appropriate affect Objective Data Active Medications Acetaminophen (Acetaminophen 325 Mg Tablet) 650 mg PO Q6H PRN PRN Reason: fever, pain Last Admin: 02/13/23 08:49 Dose: 650 mg Documented By: COTEMA Amlodipine Besylate (Amlodipine Besylate 10 Mg Tablet) 10 mg PO DAILY [facility]; Protocol Last Admin: 02/13/23 08:49 Dose: 10 mg Documented By: COTEMA Atorvastatin Calcium (Atorvastatin Calcium 80 Mg Tablet) 80 mg PO BEDTIME [facility] Last Admin: 02/12/23 21:44 Dose: 80 mg Documented By: LYSIsis Carvedilol (Carvedilol 6.25 Mg Tablet) 6.25 mg PO BID [facility]; Protocol Last Admin: 02/13/23 08:50 Dose: 6.25 mg Documented By: COTEMA Dextrose (Dextrose 50 % 25 Gm/50 Ml Syringe) 25 gm IVPUSH Q15M PRN; Protocol PRN Reason: per Hypoglycemia Standing Ord. Docusate Sodium (Docusate Sodium 100 Mg Capsule) 200 mg PO BID [facility] Last Admin: 02/13/23 09:34 Dose: Not Given Documented By: COTEMA Non-Admin Reason: Previously Administered Ezetimibe (Ezetimibe 10 Mg Tablet) 10 mg PO DAILY [facility] Last Admin: 02/13/23 08:50 Dose: 10 mg Documented By: BRADFORD Fluticasone/Vilanterol (Fluticasone/Vilanterol 100/25 Blst.W.Dev) 1 puff INHALE DAILY [facility] Last Admin: 02/13/23 08:06 Dose: 1 puff Documented By: RJ Furosemide (Furosemide 40 Mg Tablet) 120 mg PO BID [facility]; Protocol Last Admin: 02/13/23 08:49 Dose: 120 mg Documented By: BRADFORD Glucose (Glucose Gel 15 Gm Gel..Gram.) 15 gm PO Q15M PRN; Protocol PRN Reason: per Hypoglycemia Standing Ord. Hydralazine HCl (Hydralazine Hcl 10 Mg Tablet) 10 mg PO BID [facility]; Protocol Last Admin: 02/13/23 08:50 Dose: 10 mg Documented By: BRADFORD Insulin Glargine (Insulin Glargine,Hum.Rec.Anlog 100 Unit/Ml 10 Ml Vial) 5 unit SUBCUT BEDTIME [facility] Last Admin: 02/12/23 21:43 Dose: 5 unit Documented By: LEANNE Insulin Glargine (Insulin Glargine,Hum.Rec.Anlog 100 Unit/Ml 10 Ml Vial) 5 unit SUBCUT DAILY [facility] Last Admin: 02/13/23 08:49 Dose: 5 unit Documented By: BRADFORD Insulin Human Lispro (Insulin Lispro 100 Unit/Ml 3 Ml Vial) 0 unit SUBCUT QIDACHS [facility]; Protocol Last Admin: 02/13/23 07:36 Dose: Not Given Documented By: BRADFORD Non-Admin Reason: No Insulin Coverage Montelukast Sodium (Montelukast Sodium 10 Mg Tablet) 10 mg PO BEDTIME [facility] Last Admin: 02/12/23 21:43 Dose: 10 mg Documented By: LEANNE Omeprazole (Omeprazole 20 Mg Capsule.) 20 mg PO DAILY@0630 [facility] Last Admin: 02/13/23 06:32 Dose: 20 mg Documented By: LEANNE Ondansetron HCl (Ondansetron Hcl 4 Mg/2 Ml Vial) 4 mg IVPUSH Q6H PRN PRN Reason: Nausea and Vomiting Last Admin: 02/12/23 19:54 Dose: 4 mg Documented By: LEANNE Oxycodone HCl (Oxycodone Hcl Immed Release 5 Mg Tablet) 5 mg PO Q4H PRN PRN Reason: Pain, Moderate(Pain Scale 4-6) Last Admin: 02/13/23 08:49 Dose: 5 mg Documented By: BRADFORD Polyethylene Glycol (Polyethylene Glycol 3350 17 Gm Powd.Pack) 17 gm PO DAILY [facility] Last Admin: 02/13/23 08:48 Dose: 17 gm Documented By: BRADFORD Sertraline HCl (Sertraline Hcl 50 Mg Tablet) 150 mg PO DAILY [facility] Last Admin: 02/13/23 08:50 Dose: 150 mg Documented By: BRADFORD Sevelamer Carbonate (Sevelamer Carbonate Tablet 800 Mg Tablet) 1,600 mg PO TID [facility] Last Admin: 02/13/23 08:49 Dose: 1,600 mg Documented By: BRADFORD Sodium Chloride (0.9 % Sodium Chloride Flush 3 Ml Syringe) 3 ml IVFLUSH QSHIFT [facility] Last Admin: 02/13/23 09:01 Dose: 3 ml Documented By: BRADFORD Labs 02/10/23 05:29 02/10/23 05:29 Labs: Laboratory Results - last 24 hr 02/09/23 02/12/23 02/12/23 06:04 11:09 16:11 Smear Path Review SEE NOTE POC Glucose 195 H 153 H 02/12/23 02/13/23 20:18 07:30 Smear Path Review POC Glucose 143 H 106 Assessment and Plan (1) ESRD (end stage renal disease): Status: Acute (2) Acute lower gastrointestinal bleeding: Status: Acute Plan d5 68yo M with CAD s/p CABG in 2018, HTN, DM2, ESRD on HD TuThSa, hemorrhoids admitted to Gen Surg for EUA/flex sig due to hematochezia after hemorrhoidectomy 2 wk ago acute GI bleed s/p hemorrhoidectomy - H+H responded appropriately to 2u pRBCs constipation - bowel regimen LUNA/nausea - resolved ESRD - HD TuThSa - sevelamer HTN - continue amlodipine + carvedilol + furosemide + hydralazine DM2 - basal-bolus insulin CAD - statin - ASA held, resume when OK with Surg HLD - Continue statin, hold alirocumab COPD - not in acute exac; continue home inhalers VTE ppx - SCDs dispo - pending PT re-eval In my clinical judgment, the patient requires continued inpatient hospitalization for the following reasons: postop care Time Spent With Patient Time: Total time managing care of this patient today __35__ minutes. Quality Stroke Does the patient have a stroke diagnosis?: No VTE Prior VTE?: No VTE Risk Level:: Surgical - low VTE Device Contraindication: Treatment Not Indicated VTE Drug Contraindication: Treatment Not Indicated
[2023-02-13 11:35] LABS: Glucose, Whole Blood 169 mg/dL (60-115)
--- NOTE | 2023-02-13 11:46 | P.PNNP_ITS ---
Subjective Subjective Date of Service: 02/13/23 Interval history: seen and examined family at bedside updated history was taken in [place] from the patient. no complaints sitting out of bed Physical Exam Vital Signs: Vital Signs: Last Vital Signs Temp 97.3 F 02/13/23 07:48 Pulse 61 02/13/23 08:09 Resp 16 02/13/23 08:09 BP 128/60 02/13/23 07:48 Pulse Ox 93 02/13/23 07:48 O2 Del Method Room Air 02/13/23 07:48 O2 Flow Rate 2 02/10/23 07:44 FiO2 42 02/08/23 16:50 BMI result Body Mass Index 28.3 Const: General: alert and awake HEENT: Head: Yes normocephalic and Yes atraumatic Neck: Neck: Yes supple Resp: Auscultation: diminished lung sounds Cardio: Heart sounds: S1 normal heart sound present and S2 normal heart sound present GI: Palpation (GI): Soft to palpation and nontender Extrem: General: Yes edema Objective Data Labs 02/10/23 05:29 02/10/23 05:29 Labs: Laboratory Results - last 24 hr 02/09/23 02/12/23 02/12/23 06:04 16:11 20:18 Smear Path Review SEE NOTE POC Glucose 153 H 143 H 02/13/23 02/13/23 07:30 11:31 Smear Path Review POC Glucose 106 169 H Procedures Date of Service Date of Service: 02/13/23 Assessment & Plan Assessment and plan (1) ESRD (end stage renal disease): Status: Acute (2) Anemia: Status: Acute Plan usually has HD at [facility] tts2 s/p flexible sigmoidoscopy for evaluation of rectal bleed after recent hemorrhoidectomy REC HD tomorrow follow h/h renal diet ELYSSA phosphate binders Time Spent With Patient Time: Total time managing care of this patient today ____ minutes. Progress Note: Quality Stroke Does the patient have a stroke diagnosis?: No
[2023-02-13] MEDS: Insulin Lispro 100 UNIT/ML 3 ML VIAL SUBCUT ×3 (12:07→21:35)
[2023-02-13 12:47] LABS: MANUAL DIFF FLAG NO
[2023-02-13 12:50] LABS: Basophils Percent Auto 0.4 % (0-2); Eosinophils Absolute Auto 0.1 X10*3/uL (0.0-0.4); Eosinophils Percent Auto 1.5 % (0-4); Hematocrit 30.8 % (37.0-47.0); Hemoglobin 10.3 g/dl (12.0-16.0); Imm Gran Abs Auto 0.04 X10*3/uL (0.00-0.03); Imm Gran Pct Auto 0.6 % (0.0-0.4); Lymphocytes Absolute Auto 1.2 X10*3/uL (1.2-4.9); Mean Corpuscular HGB Conc 33.4 g/dl (31.0-35.0); Mean Corpuscular Hemoglobin 30.4 pg (27.0-33.0); Mean Corpuscular Volume 90.9 fL (80.0-98.0); Monocytes Absolute Auto 0.5 X10*3/uL (0.1-1.2); Monocytes Percent Auto 7.1 % (2-11); Neutrophils Absolute Auto 5.3 x10*3/uL (2.0-8.3); Neutrophils Percent Auto 73.4 % (45-73); Platelet Count 211 X10*3/uL (160-400); Red Blood Count 3.39 X10*6/uL (4.20-5.50); Red Cell Distribution Width 14.2 % (11.0-16.0); White Blood Count 7.2 X10*3/uL (4.8-10.8)
--- NOTE | 2023-02-13 13:23 | MHC.CM.PN ---
per rounds pt ready for dc bed search in place pt is on dilaysis
[2023-02-13 16:00] VITALS: BP 134/63; PULSE 54; RESP 16; TEMP 36; O2SAT 99
[2023-02-13 16:09] VITALS: BP 150/72; PULSE 60; RESP 18; TEMP 36.4; O2SAT 96
--- NOTE | 2023-02-13 16:12 | MHC.SHP ---
Pre-Procedural Eval Section A Date of Service: 02/13/23 The patient is an INPATIENT: No Changes since office visit: No Cold of Flu in the past 2 weeks, No New Medical Problems, No Changes in Medication and No Patient answered all questions The History & Physical has been completed within 30 days and I have reviewed it.: Yes Section B Chief Complaint: Post op pain. Patient is a 68-year-old female wit Allergies: Allergies Allergy/AdvReac Type Severity Reaction Status Date / Time No Known Allergies Allergy Verified 01/11/23 10:13 Plan I have reviewed the history and physical and performed a pertinent physical examination on my patient. No changes have occurred unless specified. Time Spent With Patient Time: Total time managing care of this patient today ____ minutes.
--- NOTE | 2023-02-13 16:12 | PM.EVENT ---
Event Note Date of Service: 02/13/23 Event Note: EGD/ colon scheduled for 02/14 for evaluation of anemia and gi bleeding Time Spent With Patient Time: Total time managing care of this patient today ____ minutes.
[2023-02-13 16:56] LABS: Glucose, Whole Blood 161 mg/dL (60-115)
[2023-02-13] MEDS: PEG 3350/Na Sulf,Bicarb,Cl/KCL 4,000 ML SOLN.RECON 4000 ML PO (18:13)
[2023-02-13 21:01] LABS: Glucose, Whole Blood 193 mg/dL (60-115)
[2023-02-13 21:20] VITALS: BP 146/67; PULSE 50
[2023-02-13] MEDS: Atorvastatin Calcium 80 MG TABLET PO (21:30)
[2023-02-13] MEDS: Montelukast Sodium 10 MG TABLET PO (21:30)
--- NOTE | 2023-02-13 21:45 | CONS_ITS ---
DATE OF SERVICE: 02/13/2023 REFERRING PHYSICIAN: Alek Kline MD REASON FOR CONSULTATION: GI bleeding. HISTORY OF PRESENT ILLNESS: The patient is a pleasant 68-year-old woman seen today in consultation because of GI bleeding. She was treated for hemorrhoids earlier this month with a hemorrhoidectomy on January 30. She subsequently was admitted to the hospital on February 08 with rectal pain and rectal bleeding. Further evaluation with exam under anesthesia and flexible sigmoidoscopy showed blood in the rectal vault, but no active bleeding. Exam was complete to 15 cm, at which point, formed stool was encountered and further examination was not possible. On admission, her hematocrit was 37.5, which dropped to 19 on February 09 and she was given a total of 2 units of packed red blood cells with improvement in her hematocrit. The patient denies any prior history of colon problems except for hemorrhoids. She has not undergone prior colonoscopy. She does have a lot of epigastric discomfort and reflux type symptoms, which are currently being treated with omeprazole 20 mg daily. She has no dysphagia, hematemesis, or melena. PAST MEDICAL HISTORY: 1. Hemorrhoid surgery as above. 2. End-stage renal disease, on dialysis. 3. Anemia. 4. Coronary artery disease. 5. Degenerative joint disease. 6. Hypertension. 7. Hypercalcemia. 8. Obstructive sleep apnea. 9. Diabetes mellitus type 2. CURRENT MEDICATIONS: Her current medication list is reviewed in the chart. ALLERGIES: THERE ARE NONE REPORTED. FAMILY HISTORY: This was reviewed with the patient and is noncontributory. SOCIAL HISTORY: There is no current tobacco, alcohol, or substance abuse review. REVIEW OF SYSTEMS: SKIN: No pruritus. HEENT: Negative. Cardiopulmonary: No shortness of breath or chest pain. Gastrointestinal: As above. Genitourinary: Negative. Neuropsychiatric: Negative. PHYSICAL EXAMINATION: GENERAL: Shows a pleasant female, sitting comfortably in bed. History is obtained with the use of edge sander. VITAL SIGNS: Reviewed in electronic medical record and are stable. SKIN: Anicteric. HEENT: Shows no scleral icterus. NECK: Without lymphadenopathy or thyromegaly. LUNGS: Clear. HEART: Shows a regular rate and rhythm. S1, S2. No murmur. ABDOMEN: Soft without focal masses or tenderness. Bowel sounds are present. No organomegaly is noted. EXTREMITIES: Without edema. LABORATORY DATA: Laboratory data radiologic studies were reviewed. IMPRESSION: Anemia with Hemoccult-positive stools and recent gastrointestinal bleeding. I would recommend she have further evaluation with upper endoscopy and colonoscopy because of her symptoms and fairly acute drop in her hematocrit. I have discussed risks and benefits of both procedures with her. She understands these and agrees to proceed. This will be scheduled for tomorrow. Thanks for asking me to see her. I will follow her in the hospital with you. MD JESSICA Umana/DEBBIE / [id number]
[2023-02-14] VITALS (11 sets, daily range): BP systolic 134–176; BP diastolic 53–86; PULSE 50–66; RESP 16–20; TEMP 36.1–37.2; O2SAT 96–100
[2023-02-14] MEDS: diphenhydrAMINE HCL 50 MG/ML VIAL IVPUSH (00:44)
[2023-02-14] MEDS: oxyCODONE HCl Immed Release 5 MG TABLET PO (05:21)
[2023-02-14] MEDS: ondansetron HCL 4 MG/2 ML VIAL IVPUSH (06:03)
--- NOTE | 2023-02-14 06:32 | PC.NURSE ---
Pt ROSANA for EGD/colon procedure 02/14 and started bowel prep solution 02/13 at 16:00. This RN educated pt the importance of taking the bowel prep solution with the help of an ends breakage clerk, but the pt was noncompliant of drinking the whole solution. Throughout the night monitor the pt drank little amount of the bowel prep solution and had 3 moderate bloody BM with blood clots. This RN reeducated the pt again with the help of the ends breakage clerk the importance of drinking the bowel prep solution but the pt still refused to drink more of it.
[2023-02-14 06:35] LABS: Basophils Percent Auto 0.3 % (0-2); Eosinophils Absolute Auto 0.1 X10*3/uL (0.0-0.4); Eosinophils Percent Auto 1.2 % (0-4); Hemoglobin 10.1 g/dl (12.0-16.0); Imm Gran Abs Auto 0.06 X10*3/uL (0.00-0.03); Imm Gran Pct Auto 0.7 % (0.0-0.4); Lymphocytes Absolute Auto 1.1 X10*3/uL (1.2-4.9); Lymphocytes Percent Auto 12.1 % (20-40); MANUAL DIFF FLAG NO; Mean Corpuscular HGB Conc 33.7 g/dl (31.0-35.0); Mean Corpuscular Hemoglobin 30.1 pg (27.0-33.0); Mean Corpuscular Volume 89.3 fL (80.0-98.0); Monocytes Absolute Auto 0.6 X10*3/uL (0.1-1.2); Monocytes Percent Auto 6.8 % (2-11); Neutrophils Absolute Auto 7.2 x10*3/uL (2.0-8.3); Neutrophils Percent Auto 78.9 % (45-73); Platelet Count 218 X10*3/uL (160-400); Red Blood Count 3.36 X10*6/uL (4.20-5.50); Red Cell Distribution Width 13.9 % (11.0-16.0); White Blood Count 9.1 X10*3/uL (4.8-10.8)
[2023-02-14 07:30] LABS: Glucose, Whole Blood 112 mg/dL (60-115)
[2023-02-14] MEDS: Fluticasone/Vilanterol 100/25 BLST.W.DEV 1 PUFF INHALE (07:58)
[2023-02-14] MEDS: 0.9 % Sodium Chloride Flush 3 ML SYRINGE IVFLUSH (08:12)
--- NOTE | 2023-02-14 09:04 | HO.PM.IMPN ---
Subjective Subjective Date of Service: 02/14/23 Interval History: This history was taken in [place] from the patient. BRBPR recurred yesterday afternoon GI consulted, plan EGD/C-scope No abd pain Review of Systems Review of Systems: Yes all other systems are reviewed and are negative Physical Exam Vital Signs: Vital Signs: Last Vital Signs Temp 97.0 F 02/14/23 07:37 Pulse 58 02/14/23 08:20 Resp 17 02/14/23 08:20 BP 155/74 H 02/14/23 07:37 Pulse Ox 97 02/14/23 07:37 O2 Del Method Room Air 02/14/23 07:37 O2 Flow Rate 2 02/10/23 07:44 FiO2 42 02/08/23 16:50 BMI result Body Mass Index 28.3 Gen: in no acute distress HEENT: sclera anicteric, moist mucus membranes Neck: supple Lungs: clear to auscultation bilaterally Heart: regular rate and rhythm, no murmurs Abd: soft, non-tender, non-distended Ext: no edema Skin: warm/well-perfused Neuro: alert and oriented x3, no focal findings Psych: appropriate affect Objective Data Active Medications Acetaminophen (Acetaminophen 325 Mg Tablet) 650 mg PO Q6H PRN PRN Reason: fever, pain Last Admin: 02/13/23 23:59 Dose: 650 mg Documented By: RIKI Amlodipine Besylate (Amlodipine Besylate 10 Mg Tablet) 10 mg PO DAILY [facility], [facility]; Protocol Last Admin: 02/14/23 08:08 Dose: Not Given Documented By: BRADFORD Non-Admin Reason: NPO Atorvastatin Calcium (Atorvastatin Calcium 80 Mg Tablet) 80 mg PO BEDTIME [facility], [facility]1983 Last Admin: 02/13/23 21:30 Dose: 80 mg Documented By: RIKI Carvedilol (Carvedilol 6.25 Mg Tablet) 6.25 mg PO BID ROS[facility]; Protocol Last Admin: 02/14/23 08:08 Dose: Not Given Documented By: BRADFORD Non-Admin Reason: NPO Dextrose (Dextrose 50 % 25 Gm/50 Ml Syringe) 25 gm IVPUSH Q15M PRN; Protocol PRN Reason: per Hypoglycemia Standing Ord. Docusate Sodium (Docusate Sodium 100 Mg Capsule) 200 mg PO BID [facility], [facility] Last Admin: 02/14/23 08:08 Dose: Not Given Documented By: BRADFORD Non-Admin Reason: NPO Ezetimibe (Ezetimibe 10 Mg Tablet) 10 mg PO DAILY [facility] Last Admin: 02/14/23 08:08 Dose: Not Given Documented By: BRADFORD Non-Admin Reason: NPO Fluticasone/Vilanterol (Fluticasone/Vilanterol 100/25 Blst.W.Dev) 1 puff INHALE DAILY [facility], [facility] Last Admin: 02/14/23 07:58 Dose: 1 puff Documented By: LEXY Furosemide (Furosemide 40 Mg Tablet) 120 mg PO BID [facility], [facility]; Protocol Last Admin: 02/14/23 08:08 Dose: Not Given Documented By: BRADFORD Non-Admin Reason: NPO Glucose (Glucose Gel 15 Gm Gel..Gram.) 15 gm PO Q15M PRN; Protocol PRN Reason: per Hypoglycemia Standing Ord. Hydralazine HCl (Hydralazine Hcl 10 Mg Tablet) 10 mg PO BID [facility], [facility]; Protocol Last Admin: 02/14/23 08:08 Dose: Not Given Documented By: BRADFORD Non-Admin Reason: NPO Insulin Glargine (Insulin Glargine,Hum.Rec.Anlog 100 Unit/Ml 10 Ml Vial) 5 unit SUBCUT BEDTIME [facility], [facility] Last Admin: 02/13/23 21:34 Dose: 5 unit Documented By: RIKI Insulin Glargine (Insulin Glargine,Hum.Rec.Anlog 100 Unit/Ml 10 Ml Vial) 5 unit SUBCUT DAILY [facility], [facility]1983 Last Admin: 02/14/23 08:09 Dose: Not Given Documented By: BRADFORD Non-Admin Reason: NPO Insulin Human Lispro (Insulin Lispro 100 Unit/Ml 3 Ml Vial) 0 unit SUBCUT QIDACHS [facility], 1928–1983; Protocol Last Admin: 02/14/23 07:31 Dose: Not Given Documented By: BRADFORD Non-Admin Reason: No Insulin Coverage Montelukast Sodium (Montelukast Sodium 10 Mg Tablet) 10 mg PO BEDTIME [facility], [facility]1983 Last Admin: 02/13/23 21:30 Dose: 10 mg Documented By: RIKI Omeprazole (Omeprazole 20 Mg Capsule.) 20 mg PO DAILY@0630 [facility], [facility] Last Admin: 02/14/23 06:41 Dose: Not Given Documented By: RIKI Non-Admin Reason: Nausea Ondansetron HCl (Ondansetron Hcl 4 Mg/2 Ml Vial) 4 mg IVPUSH Q6H PRN PRN Reason: Nausea and Vomiting Last Admin: 02/14/23 06:03 Dose: 4 mg Documented By: RIKI Oxycodone HCl (Oxycodone Hcl Immed Release 5 Mg Tablet) 5 mg PO Q4H PRN PRN Reason: Pain, Severe (Pain Scale 7-10) Last Admin: 02/14/23 05:21 Dose: 5 mg Documented By: RIKI Polyethylene Glycol (Polyethylene Glycol 3350 17 Gm Powd.Pack) 17 gm PO DAILY [facility], [facility] Last Admin: 02/14/23 08:09 Dose: Not Given Documented By: BRADFORD Non-Admin Reason: NPO Sertraline HCl (Sertraline Hcl 50 Mg Tablet) 150 mg PO DAILY [facility], [facility] Last Admin: 02/14/23 08:09 Dose: Not Given Documented By: BRADFORD Non-Admin Reason: NPO Sevelamer Carbonate (Sevelamer Carbonate Tablet 800 Mg Tablet) 1,600 mg PO TID [facility], [facility] Last Admin: 02/14/23 08:09 Dose: Not Given Documented By: BRADFORD Non-Admin Reason: Medication Discontinued Sodium Chloride (0.9 % Sodium Chloride Flush 3 Ml Syringe) [facility] Last Admin: 02/14/23 08:12 Dose: 3 ml Documented By: BRADFORD Labs 02/14/23 06:24 02/10/23 05:29 Labs: Laboratory Results - last 24 hr 02/09/23 02/13/23 02/13/23 06:04 11:31 12:39 MCV 90.9 MCH 30.4 MCHC 33.4 RDW 14.2 Plt Count 211 MPV 10.0 Immature Gran % (Auto) 0.6 H Neut % (Auto) 73.4 H Lymph % (Auto) 17.0 L Stark % (Auto) 7.1 Eos % (Auto) 1.5 Baso % (Auto) 0.4 Lymph # (Auto) 1.2 Stark # (Auto) 0.5 Eos # (Auto) 0.1 Baso # (Auto) 0.0 Abs Immat Gran (auto) 0.04 H Absolute Neuts (auto) 5.3 Absolute Nucleated RBC 0.000 Nucleated RBC % (auto) 0.0 Smear Path Review SEE NOTE POC Glucose 169 H 02/13/23 02/13/23 02/14/23 16:51 20:57 06:24 MCV 89.3 MCH 30.1 MCHC 33.7 RDW 13.9 Plt Count 218 MPV 10.0 Immature Gran % (Auto) 0.7 H Neut % (Auto) 78.9 H Lymph % (Auto) 12.1 L Stark % (Auto) 6.8 Eos % (Auto) 1.2 Baso % (Auto) 0.3 Lymph # (Auto) 1.1 L Stark # (Auto) 0.6 Eos # (Auto) 0.1 Baso # (Auto) 0.0 Abs Immat Gran (auto) 0.06 H Absolute Neuts (auto) 7.2 Absolute Nucleated RBC 0.000 Nucleated RBC % (auto) 0.0 Smear Path Review POC Glucose 161 H 193 H 02/14/23 07:22 MCV MCH MCHC RDW Plt Count MPV Immature Gran % (Auto) Neut % (Auto) Lymph % (Auto) Stark % (Auto) Eos % (Auto) Baso % (Auto) Lymph # (Auto) Stark # (Auto) Eos # (Auto) Baso # (Auto) Abs Immat Gran (auto) Absolute Neuts (auto) Absolute Nucleated RBC Nucleated RBC % (auto) Smear Path Review POC Glucose 112 Assessment and Plan (1) ESRD (end stage renal disease): Status: Acute (2) Acute lower gastrointestinal bleeding: Status: Acute Plan d6 68yo M with CAD s/p CABG in 2018, HTN, DM2, ESRD on HD TuThSa, hemorrhoids admitted to Gen Surg for EUA/flex sig due to hematochezia after hemorrhoidectomy 2 wk ago acute GI bleed s/p hemorrhoidectomy - H+H responded appropriately to 2u pRBCs - EUA/flex sig was negative - plan EGD + C-scope today [Dr Villegas] constipation - bowel regimen LUNA/nausea - resolved ESRD - HD TuThSa - sevelamer HTN - continue amlodipine + carvedilol + furosemide + hydralazine DM2 - basal-bolus insulin CAD - statin - ASA held, resume when OK with Surg HLD - Continue statin, hold alirocumab COPD - not in acute exac; continue home inhalers VTE ppx - SCDs dispo - pending PT re-eval In my clinical judgment, the patient requires continued inpatient hospitalization for the following reasons: evaluation of GI bleeding Time Spent With Patient Time: Total time managing care of this patient today _35___ minutes. Quality Stroke Does the patient have a stroke diagnosis?: No VTE Prior VTE?: No VTE Risk Level:: Surgical - low VTE Device Contraindication: Treatment Not Indicated VTE Drug Contraindication: Treatment Not Indicated
[2023-02-14 11:19] LABS: Glucose, Whole Blood 111 mg/dL (60-115)
--- NOTE | 2023-02-14 11:22 | P.PNNP_ITS ---
Subjective Subjective Date of Service: 02/14/23 Interval history: seen and examined on dialysis no complaints Physical Exam Vital Signs: Vital Signs: Last Vital Signs Temp 97.0 F 02/14/23 07:37 Pulse 58 02/14/23 08:20 Resp 17 02/14/23 08:20 BP 155/74 H 02/14/23 07:37 Pulse Ox 97 02/14/23 07:37 O2 Del Method Room Air 02/14/23 07:37 O2 Flow Rate 2 02/10/23 07:44 FiO2 42 02/08/23 16:50 BMI result Body Mass Index 28.3 Const: General: alert and awake HEENT: Head: Yes normocephalic and Yes atraumatic Neck: Neck: Yes supple Resp: Auscultation: diminished lung sounds Cardio: Heart sounds: S1 normal heart sound present and S2 normal heart sound present GI: Palpation (GI): Soft to palpation and nontender Extrem: General: Yes edema Objective Data Labs 02/14/23 06:24 02/10/23 05:29 Labs: Laboratory Results - last 24 hr 02/13/23 02/13/23 02/13/23 11:31 12:39 16:51 WBC 7.2 RBC 3.39 L Hgb 10.3 L Hct 30.8 L MCV 90.9 MCH 30.4 MCHC 33.4 RDW 14.2 Plt Count 211 MPV 10.0 Immature Gran % (Auto) 0.6 H Neut % (Auto) 73.4 H Lymph % (Auto) 17.0 L [place] % (Auto) 7.1 Eos % (Auto) 1.5 Baso % (Auto) 0.4 Lymph # (Auto) 1.2 [place] # (Auto) 0.5 Eos # (Auto) 0.1 Baso # (Auto) 0.0 Abs Immat Gran (auto) 0.04 H Absolute Neuts (auto) 5.3 Absolute Nucleated RBC 0.000 Nucleated RBC % (auto) 0.0 POC Glucose 169 H 161 H 02/13/23 02/14/23 02/14/23 20:57 06:24 07:22 WBC 9.1 RBC 3.36 L Hgb 10.1 L Hct 30.0 L MCV 89.3 MCH 30.1 MCHC 33.7 RDW 13.9 Plt Count 218 MPV 10.0 Immature Gran % (Auto) 0.7 H Neut % (Auto) 78.9 H Lymph % (Auto) 12.1 L [place] % (Auto) 6.8 Eos % (Auto) 1.2 Baso % (Auto) 0.3 Lymph # (Auto) 1.1 L [place] # (Auto) 0.6 Eos # (Auto) 0.1 Baso # (Auto) 0.0 Abs Immat Gran (auto) 0.06 H Absolute Neuts (auto) 7.2 Absolute Nucleated RBC 0.000 Nucleated RBC % (auto) 0.0 POC Glucose 193 H 112 02/14/23 11:16 WBC RBC Hgb Hct MCV MCH MCHC RDW Plt Count MPV Immature Gran % (Auto) Neut % (Auto) Lymph % (Auto) [place] % (Auto) Eos % (Auto) Baso % (Auto) Lymph # (Auto) [place] # (Auto) Eos # (Auto) Baso # (Auto) Abs Immat Gran (auto) Absolute Neuts (auto) Absolute Nucleated RBC Nucleated RBC % (auto) POC Glucose 111 Procedures Date of Service Date of Service: 02/14/23 Assessment & Plan Assessment and plan (1) ESRD (end stage renal disease): Status: Acute (2) Anemia: Status: Acute Plan usually has HD at [facility] tts2 s/p flexible sigmoidoscopy for evaluation of rectal bleed after recent hemorrhoidectomy GI planning EGD/C-scope REC HD today optimize volume status follow h/h renal diet ELYSSA phosphate binders Time Spent With Patient Time: Total time managing care of this patient today ____ minutes. Progress Note: Quality Stroke Does the patient have a stroke diagnosis?: No
--- NOTE | 2023-02-14 13:29 | MHC.CM.PN ---
[facility] HAS OFFERED A BED WHEN READY FOR DC, THEY HAVE REQUESTED 24 HOUR NOTICE OF DC SO THEY MAY CONFIRM TRANSPORT WITH [facility] TO [place]. CM WILL CONTINUE TO FOLLOW. [facility]SPORT # [phone] SW [facility] [place] [phone]
[2023-02-14 13:43] LABS: Glucose, Whole Blood 111 mg/dL (60-115)
--- NOTE | 2023-02-14 14:36 | P.BOP_ITS ---
Brief Operative Note Date of Service: 02/14/23 Pre-op diagnosis: gi bleed Post-op diagnosis: same Procedure: egd colon to mid tv colon Surgeon: Brandt Villegas Anesthesia: MAC Was an Patient Financial Rep used for this Procedure?: No Estimated blood loss (mL): 0 Urine output (mL): 0 Pathology: none sent Condition: stable Disposition: PACU
--- NOTE | 2023-02-14 14:37 | PM.EVENT ---
Event Note Date of Service: 02/14/23 Event Note: EGD/Colon EGD is WNL colon to mid transverse colon, poor prep, no active bleeding identified Rec Advance diet, follow hct Time Spent With Patient Time: Total time managing care of this patient today ____ minutes.
[2023-02-14 16:36] LABS: Glucose, Whole Blood 98 mg/dL (60-115)
--- NOTE | 2023-02-14 18:22 | PC.NURSE ---
pt lost iv access. Multiple attempts to get IV access and could not get access. pt is now refusing IV access at this time. Dr. Mo made aware. DR. Armas made aware.
[2023-02-14 20:20] LABS: Glucose, Whole Blood 246 mg/dL (60-115)
[2023-02-14] MEDS: carvediloL 6.25 MG TABLET PO (22:20)
[2023-02-14] MEDS: hydrALAZINE HCl 10 MG TABLET PO (22:20)
[2023-02-14] MEDS: Sevelamer Carbonate Tablet 800 MG TABLET 1600 MG PO (22:20)
[2023-02-14] MEDS: Furosemide 40 MG TABLET 120 MG PO (22:20)
[2023-02-14] MEDS: Atorvastatin Calcium 80 MG TABLET PO (22:20)
[2023-02-14] MEDS: Acetaminophen 325 MG TABLET 650 MG PO (22:20)
[2023-02-14] MEDS: Montelukast Sodium 10 MG TABLET PO (22:20)
[2023-02-14] MEDS: Docusate Sodium 100 MG CAPSULE 200 MG PO (22:21)
[2023-02-14] MEDS: Insulin Lispro 100 UNIT/ML 3 ML VIAL SUBCUT (22:21)
[2023-02-14] MEDS: Insulin Glargine,Hum.rec.anlog 100 UNIT/ML 10 ML VIAL SUBCUT (22:22)
--- NOTE | 2023-02-14 23:54 | OP_ITS ---
DATE OF SERVICE: 02/14/2023 SURGEON: Brandt Villegas MD INDICATIONS: GI bleeding and anemia. PREOPERATIVE DIAGNOSIS: POSTOPERATIVE DIAGNOSIS: PROCEDURE PERFORMED: Upper endoscopy, colonoscopy to the mid transverse colon. ESTIMATED BLOOD LOSS: COMPLICATIONS: ANESTHESIA: Monitored anesthesia care. ASSISTANTS: SPECIMENS: DESCRIPTION OF PROCEDURE: A history and physical performed. The risks and benefits of the procedure were explained to the patient, and informed consent was obtained. The patient was placed in the left lateral decubitus position. The Olympus video gastroscope was introduced into the esophagus, stomach, and duodenum. Examination was performed. The scope was removed. She was repositioned for colonoscopy. Digital rectal exam was performed and was found to be normal. The Olympus pediatric colonoscope was introduced into the rectum and advanced to the mid transverse colon. At which point, further advancement was not possible due to the poor prep. Examination was performed. The scope was removed. She tolerated the procedure well and was returned to the recovery area in stable condition. FINDINGS: Upper endoscopy: 1. Esophagus: The esophagus was normal. 2. Stomach: The stomach showed no evidence of masses, ulcers, or polyps. 3. Duodenum: The bulb and 2nd portion were normal. Colonoscopy: The scope could only be advanced to the mid transverse colon due to the patient having a poor prep. The visualized colonic mucosa was normal. The exam was extremely limited by liquid and formed stool. No active bleeding was seen. No source for bleeding in the examined part of the colon was identified retroflexed examination was limited but was normal. IMPRESSION: 1. Gastrointestinal bleeding. 2. Hemorrhoids. 3. Normal upper endoscopy. RECOMMENDATION: 1. Follow up as needed. 2. She should consider a screening colonoscopy with a 2 day prep as an outpatient in 6 months. MD JESSICA Umana/JOSÉ MANUELL / [phone] [id number]
[2023-02-15] MEDS: Omeprazole 20 MG CAPSULE.DR PO (05:52)
[2023-02-15 07:31] VITALS: BP 155/70; PULSE 60; RESP 16; TEMP 36.1; O2SAT 97
[2023-02-15 07:42] LABS: Glucose, Whole Blood 96 mg/dL (60-115)
[2023-02-15] MEDS: Fluticasone/Vilanterol 100/25 BLST.W.DEV 1 PUFF INHALE (08:29)
[2023-02-15 08:32] VITALS: PULSE 60; RESP 16; O2SAT 96
[2023-02-15] MEDS: Ezetimibe 10 MG TABLET PO (09:07)
[2023-02-15] MEDS: Docusate Sodium 100 MG CAPSULE 200 MG PO (09:07)
[2023-02-15] MEDS: polyethylene glycoL 3350 17 GM POWD.PACK PO (09:07)
[2023-02-15] MEDS: Sevelamer Carbonate Tablet 800 MG TABLET 1600 MG PO (09:07)
[2023-02-15] MEDS: hydrALAZINE HCl 10 MG TABLET PO (09:08)
[2023-02-15] MEDS: Insulin Glargine,Hum.rec.anlog 100 UNIT/ML 10 ML VIAL SUBCUT (09:08)
[2023-02-15] MEDS: carvediloL 6.25 MG TABLET PO (09:08)
[2023-02-15] MEDS: Sertraline HCL 50 MG TABLET 150 MG PO (09:08)
[2023-02-15] MEDS: amLODIPine Besylate 10 MG TABLET PO (09:08)
[2023-02-15] MEDS: Furosemide 40 MG TABLET 120 MG PO (09:08)
--- NOTE | 2023-02-15 09:16 | PM.PNGS ---
Subjective Subjective Date of Service: 02/15/23 Interval history: EGD WNL, colonoscopy to mid transverse colon, poor prep, no active bleeding identified yesterday. Feels better today. Denies significant pain. No rectal bleeding overnight. Tolerating diet. Physical Exam Vital Signs: Vital Signs: Last Vital Signs Temp 97.0 F 02/15/23 07:31 Pulse 60 02/15/23 08:32 Resp 16 02/15/23 08:32 BP 155/70 H 02/15/23 07:31 Pulse Ox 97 02/15/23 07:31 O2 Del Method Room Air 02/15/23 07:31 O2 Flow Rate 2 02/10/23 07:44 FiO2 42 02/08/23 16:50 BMI result Body Mass Index 28.3 Const: General: comfortable, no acute distress and alert Orientation/consciousness: patient oriented x3 Resp: Effort & Inspection: normal respiratory effort GI: Rectal Exam - Female: other (no bleeding on external exam) Skin: General skin exam: no rashes or lesions noted Neuro: General: patient oriented x3 Objective Data Active Medications Acetaminophen (Acetaminophen 325 Mg Tablet) 650 mg PO Q6H PRN PRN Reason: fever, pain Last Admin: 02/14/23 22:20 Dose: 650 mg Documented By: JOSEFINA Amlodipine Besylate (Amlodipine Besylate 10 Mg Tablet) 10 mg PO DAILY [facility]; Protocol Last Admin: 02/15/23 09:08 Dose: 10 mg Documented By: MINGO Atorvastatin Calcium (Atorvastatin Calcium 80 Mg Tablet) 80 mg PO BEDTIME [facility] Last Admin: 02/14/23 22:20 Dose: 80 mg Documented By: JOSEFINA Carvedilol (Carvedilol 6.25 Mg Tablet) 6.25 mg PO BID [facility]; Protocol Last Admin: 02/15/23 09:08 Dose: 6.25 mg Documented By: MINGO Dextrose (Dextrose 50 % 25 Gm/50 Ml Syringe) 25 gm IVPUSH Q15M PRN; Protocol PRN Reason: per Hypoglycemia Standing Ord. Docusate Sodium (Docusate Sodium 100 Mg Capsule) 200 mg PO BID [facility] Last Admin: 02/15/23 09:07 Dose: 200 mg Documented By: MINGO Ezetimibe (Ezetimibe 10 Mg Tablet) 10 mg PO DAILY [facility] Last Admin: 02/15/23 09:07 Dose: 10 mg Documented By: MINGO Fluticasone/Vilanterol (Fluticasone/Vilanterol 100/25 Blst.W.Dev) 1 puff INHALE DAILY [facility] Last Admin: 02/15/23 08:29 Dose: 1 puff Documented By: INDIRA Furosemide (Furosemide 40 Mg Tablet) 120 mg PO BID [facility]; Protocol Last Admin: 02/15/23 09:08 Dose: 120 mg Documented By: MINGO Glucose (Glucose Gel 15 Gm Gel..Gram.) 15 gm PO Q15M PRN; Protocol PRN Reason: per Hypoglycemia Standing Ord. Hydralazine HCl (Hydralazine Hcl 10 Mg Tablet) 10 mg PO BID [facility]; Protocol Last Admin: 02/15/23 09:08 Dose: 10 mg Documented By: MINGO Insulin Glargine (Insulin Glargine,Hum.Rec.Anlog 100 Unit/Ml 10 Ml Vial) 5 unit SUBCUT BEDTIME [facility] Last Admin: 02/14/23 22:22 Dose: 5 unit Documented By: JOSEFINA Insulin Glargine (Insulin Glargine,Hum.Rec.Anlog 100 Unit/Ml 10 Ml Vial) 5 unit SUBCUT DAILY [facility] Last Admin: 02/15/23 09:08 Dose: 5 unit Documented By: MINGO Insulin Human Lispro (Insulin Lispro 100 Unit/Ml 3 Ml Vial) 0 unit SUBCUT QIDACHS [facility]; Protocol Last Admin: 02/15/23 08:58 Dose: Not Given Documented By: MINGO Non-Admin Reason: No Insulin Coverage Montelukast Sodium (Montelukast Sodium 10 Mg Tablet) 10 mg PO BEDTIME [facility] Last Admin: 02/14/23 22:20 Dose: 10 mg Documented By: JOSEFINA Omeprazole (Omeprazole 20 Mg [place].) 20 mg PO DAILY@0630 [facility] Last Admin: 02/15/23 05:52 Dose: 20 mg Documented By: JOSEFINA Ondansetron HCl (Ondansetron Hcl 4 Mg/2 Ml Vial) 4 mg IVPUSH Q6H PRN PRN Reason: Nausea and Vomiting Last Admin: 02/14/23 06:03 Dose: 4 mg Documented By: RIKI Oxycodone HCl (Oxycodone Hcl Immed Release 5 Mg Tablet) 5 mg PO Q4H PRN PRN Reason: Pain, Severe (Pain Scale 7-10) Last Admin: 02/14/23 05:21 Dose: 5 mg Documented By: RIKI Polyethylene Glycol (Polyethylene Glycol 3350 17 Gm Powd.Pack) 17 gm PO DAILY [facility] Last Admin: 02/15/23 09:07 Dose: 17 gm Documented By: MINGO Sertraline HCl (Sertraline Hcl 50 Mg Tablet) 150 mg PO DAILY [facility] Last Admin: 02/15/23 09:08 Dose: 150 mg Documented By: MINGO Sevelamer Carbonate (Sevelamer Carbonate Tablet 800 Mg Tablet) 1,600 mg PO TID [facility] Last Admin: 02/15/23 09:07 Dose: 1,600 mg Documented By: MINGO Sodium Chloride (0.9 % Sodium Chloride Flush 3 Ml Syringe) 3 ml IVFLUSH QSHIFT [facility] Last Admin: 02/15/23 09:08 Dose: 3 ml Documented By: MINGO Labs 02/14/23 06:24 02/10/23 05:29 Labs: Laboratory Results - last 24 hr 02/14/23 02/14/23 02/14/23 11:16 13:17 16:23 POC Glucose 111 111 98 02/14/23 02/15/23 20:16 07:35 POC Glucose 246 H 96 Procedures Date of Service Date of Service: 02/15/23 Progress Note: A&P Assessment and plan (1) ESRD (end stage renal disease) on dialysis: Status: Acute Plan 68 year old female with multiple medical comorbidities admitted for post op pain and rectal bleeding 2 weeks s/p hemorroidectomy. No source of active bleeding found on EUA/flex sig followed by EGD/colonoscopy. Labs have remained stable. She is well appearing without further bleeding today and ready for transfer to [facility]. Patient comfortable with plan. F/u in office in 1 week. Time Spent With Patient Time: Total time managing care of this patient today ____ minutes. Quality Stroke Does the patient have a stroke diagnosis?: No VTE Prior VTE?: No VTE Risk Level:: Surgical - low VTE Device Contraindication: Treatment Not Indicated VTE Drug Contraindication: Treatment Not Indicated
[2023-02-15] MEDS: Acetaminophen 325 MG TABLET 650 MG PO (09:24)
--- NOTE | 2023-02-15 09:32 | P.PNIM_ITS ---
Subjective Subjective Date of Service: 02/15/23 Interval History: EGD yesterday WNL, colonoscopy to mid-transverse colon without active bleeding though prep was poor; recommended outpt C-scope with 2-d prep in future no further rectal bleeding no abd pain This history was taken in [place] from the patient. Review of Systems Review of Systems: Yes all other systems are reviewed and are negative Physical Exam Vital Signs: Vital Signs: Last Vital Signs Temp 97.0 F 02/15/23 07:31 Pulse 60 02/15/23 08:32 Resp 16 02/15/23 08:32 BP 155/70 H 02/15/23 07:31 Pulse Ox 97 02/15/23 07:31 O2 Del Method Room Air 02/15/23 07:31 O2 Flow Rate 2 02/10/23 07:44 FiO2 42 02/08/23 16:50 BMI result Body Mass Index 28.3 Gen: in no acute distress HEENT: sclera anicteric, moist mucus membranes Neck: supple Lungs: clear to auscultation bilaterally Heart: regular rate and rhythm, no murmurs Abd: soft, non-tender, non-distended Ext: no edema Skin: warm/well-perfused Neuro: alert and oriented x3, no focal findings Psych: appropriate affect Objective Data Active Medications Acetaminophen (Acetaminophen 325 Mg Tablet) 650 mg PO Q6H PRN PRN Reason: fever, pain Last Admin: 02/15/23 09:24 Dose: 650 mg Documented By: MINGO Amlodipine Besylate (Amlodipine Besylate 10 Mg Tablet) 10 mg PO DAILY [facility]; Prot ocol Last Admin: 02/15/23 09:08 Dose: 10 mg Documented By: MINGO Atorvastatin Calcium (Atorvastatin Calcium 80 Mg Tablet) 80 mg PO BEDTIME ROSANA Last Admin: 02/14/23 22:20 Dose: 80 mg Documented By: JOSEFINA Carvedilol (Carvedilol 6.25 Mg Tablet) 6.25 mg PO BID [facility]; Protocol Last Admin: 02/15/23 09:08 Dose: 6.25 mg Documented By: MINGO Dextrose (Dextrose 50 % 25 Gm/50 Ml Syringe) 25 gm IVPUSH Q15M PRN; Protocol PRN Reason: per Hypoglycemia Standing Ord. Docusate Sodium (Docusate Sodium 100 Mg Capsule) 200 mg PO BID [facility] Last Admin: 02/15/23 09:07 Dose: 200 mg Documented By: MINGO Ezetimibe (Ezetimibe 10 Mg Tablet) 10 mg PO DAILY [facility] Last Admin: 02/15/23 09:07 Dose: 10 mg Documented By: MINGO Fluticasone/Vilanterol (Fluticasone/Vilanterol 100/25 Blst.W.Dev) 1 puff INHALE DAILY [facility] Last Admin: 02/15/23 08:29 Dose: 1 puff Documented By: INDIRA Furosemide (Furosemide 40 Mg Tablet) 120 mg PO BID [facility]; Protocol Last Admin: 02/15/23 09:08 Dose: 120 mg Documented By: MINGO Glucose (Glucose Gel 15 Gm Gel..Gram.) 15 gm PO Q15M PRN; Protocol PRN Reason: per Hypoglycemia Standing Ord. Hydralazine HCl (Hydralazine Hcl 10 Mg Tablet) 10 mg PO BID [facility]; Protocol Last Admin: 02/15/23 09:08 Dose: 10 mg Documented By: MINGO Insulin Glargine (Insulin Glargine,Hum.Rec.Anlog 100 Unit/Ml 10 Ml Vial) 5 unit SUBCUT BEDTIME [facility] Last Admin: 02/14/23 22:22 Dose: 5 unit Documented By: JOSEFINA Insulin Glargine (Insulin Glargine,Hum.Rec.Anlog 100 Unit/Ml 10 Ml Vial) 5 unit SUBCUT DAILY [facility] Last Admin: 02/15/23 09:08 Dose: 5 unit Documented By: MINGO Insulin Human Lispro (Insulin Lispro 100 Unit/Ml 3 Ml Vial) 0 unit SUBCUT QIDACHS [facility]; Protocol Last Admin: 02/15/23 08:58 Dose: Not Given Documented By: MINGO Non-Admin Reason: No Insulin Coverage Montelukast Sodium (Montelukast Sodium 10 Mg Tablet) 10 mg PO BEDTIME [facility] Last Admin: 02/14/23 22:20 Dose: 10 mg Documented By: JOSEFINA Omeprazole (Omeprazole 20 Mg Capsule.) 20 mg PO DAILY@0630 [facility] Last Admin: 02/15/23 05:52 Dose: 20 mg Documented By: JOSEFINA Ondansetron HCl (Ondansetron Hcl 4 Mg/2 Ml Vial) 4 mg IVPUSH Q6H PRN PRN Reason: Nausea and Vomiting Last Admin: 02/14/23 06:03 Dose: 4 mg Documented By: RIKI Oxycodone HCl (Oxycodone Hcl Immed Release 5 Mg Tablet) 5 mg PO Q4H PRN PRN Reason: Pain, Severe (Pain Scale 7-10) Last Admin: 02/14/23 05:21 Dose: 5 mg Documented By: RIKI Polyethylene Glycol (Polyethylene Glycol 3350 17 Gm Powd.Pack) 17 gm PO DAILY [facility] Last Admin: 02/15/23 09:07 Dose: 17 gm Documented By: MINGO Sertraline HCl (Sertraline Hcl 50 Mg Tablet) 150 mg PO DAILY [facility] Last Admin: 02/15/23 09:08 Dose: 150 mg Documented By: MINGO Sevelamer Carbonate (Sevelamer Carbonate Tablet 800 Mg Tablet) 1,600 mg PO TID [facility] Last Admin: 02/15/23 09:07 Dose: 1,600 mg Documented By: MINGO Sodium Chloride (0.9 % Sodium Chloride Flush 3 Ml Syringe) 3 ml IVFLUSH QSHIFT [facility] Last Admin: 02/15/23 09:19 Dose: Not Given Documented By: MINGO Non-Admin Reason: No Access Labs 02/14/23 06:24 02/10/23 05:29 Labs: Laboratory Results - last 24 hr 02/14/23 02/14/23 02/14/23 11:16 13:17 16:23 POC Glucose 111 111 98 02/14/23 02/15/23 20:16 07:35 POC Glucose 246 H 96 Assessment and Plan (1) ESRD (end stage renal disease): Status: Acute (2) Acute lower gastrointestinal bleeding: Status: Resolved Plan d7 68yo M with CAD s/p CABG in 2018, HTN, DM2, ESRD on HD [facility], hemorrhoids admitted to Gen Surg for EUA/flex sig due to hematochezia after hemorrhoidectomy 2 wk ago hospitalist consult for management of comorbid conditions acute GI bleed s/p hemorrhoidectomy - H+H responded appropriately to 2u pRBCs - EUA/flex sig was negative - EGD 02/14 negative, C-scope to mid-transverse colon without active bleeding though prep was poor, recommend outpt C-scope with 2d prep constipation - bowel regimen LUNA/nausea - resolved ESRD - HD [facility] - sevelamer HTN - continue amlodipine + carvedilol + furosemide + hydralazine DM2 - basal-bolus insulin CAD - statin - ASA held, resume when OK with Surg HLD - continue statin, hold alirocumab as non-formulary COPD - not in acute exac; continue home inhalers VTE ppx - SCDs dispo - pending PT re-eval In my clinical judgment, the patient requires continued inpatient hospitalization for the following reasons: placement3 Time Spent With Patient Time: Total time managing care of this patient today ___35_ minutes. Quality Stroke Does the patient have a stroke diagnosis?: No VTE Prior VTE?: No VTE Risk Level:: Surgical - low VTE Device Contraindication: Treatment Not Indicated VTE Drug Contraindication: Treatment Not Indicated
[2023-02-15 11:16] LABS: Glucose, Whole Blood 224 mg/dL (60-115)
--- NOTE | 2023-02-15 12:26 | P.PNNP_ITS ---
Subjective Subjective Date of Service: 02/15/23 Interval history: seen and examined sitting out of bed son at bedside updated no complaints Physical Exam Vital Signs: Vital Signs: Last Vital Signs Temp 97.0 F 02/15/23 07:31 Pulse 60 02/15/23 08:32 Resp 16 02/15/23 08:32 BP 155/70 H 02/15/23 07:31 Pulse Ox 97 02/15/23 07:31 O2 Del Method Room Air 02/15/23 07:31 O2 Flow Rate 2 02/10/23 07:44 FiO2 42 02/08/23 16:50 BMI result Body Mass Index 28.3 Const: General: alert and awake HEENT: Head: Yes normocephalic and Yes atraumatic Neck: Neck: Yes supple Resp: Auscultation: diminished lung sounds Cardio: Heart sounds: S1 normal heart sound present and S2 normal heart sound present GI: Palpation (GI): Soft to palpation and nontender Extrem: General: Yes edema Objective Data Labs 02/14/23 06:24 02/10/23 05:29 Labs: Laboratory Results - last 24 hr 02/14/23 02/14/23 02/14/23 13:17 16:23 20:16 POC Glucose 111 98 246 H 02/15/23 02/15/23 07:35 11:13 POC Glucose 96 224 H Procedures Date of Service Date of Service: 02/15/23 Assessment & Plan Assessment and plan (1) ESRD (end stage renal disease): Status: Acute (2) Anemia: Status: Resolved Plan usually has HD at [facility] tts2 s/p flexible sigmoidoscopy for evaluation of rectal bleed after recent hemorrhoidectomy colonoscopy did not show active bleeding REC HD tomorrow follow h/h renal diet ELYSSA phosphate binders Time Spent With Patient Time: Total time managing care of this patient today ____ minutes. Progress Note: Quality Stroke Does the patient have a stroke diagnosis?: No
[2023-02-15] MEDS: Insulin Lispro 100 UNIT/ML 3 ML VIAL SUBCUT (12:36)
--- NOTE | 2023-02-15 12:58 | MHC.CM.PN ---
pts son angelina notified of dc at 2 to daygypsum
--- NOTE | 2023-02-15 14:13 | HO.POSTANES ---
Post Anesthesia Evaluation Post Anesthesia Evaluation Date of Service: 02/15/23 Vital Signs: Vital Signs Temp Pulse Resp BP Pulse Ox O2 Del Method 02/15/23 08:32 60 16 02/15/23 07:31 97.0 F 60 16 155/70 H 97 Room Air Anesthesia: Monitored Mental Status: Awake Pain Control: Satisfactory Nausea/Vomiting: None Hydration: Adequate Anesthesia-Related Issues: No Anes. Related Issues
== END 2023-02-15 13:58 | disposition skilled nursing facility (03) | DRG 919 ==
LOC: HO.ED 22:09 → HO.EDOVER 22:14 → HO.S3 02-08 17:21
PROVIDERS: Internal Medicine Gastroenterology; Physician Assistant Surgical; Student in an Organized Health Care Education/Training Program; Surgery; Admitting Provider Surgery; Emergency Provider Emergency Medicine; PCP Internal Medicine; Visit Provider Surgery
PROC: 0DJD8ZZ Inspection of Lower Intestinal Tract, Via Natural or Artificial Opening Endoscopic (ICD-10-PCS; CPT 45330; principal; 2023-02-08 13:00)
PROC: 0DJ08ZZ Inspection of Upper Intestinal Tract, Via Natural or Artificial Opening Endoscopic (ICD-10-PCS; principal; 2023-02-14 11:40)
DX: K91.840 Postprocedural hemorrhage of a digestive system organ or structure following a digestive system procedure (principal); N18.6 End stage renal disease; I12.0 Hypertensive chronic kidney disease with stage 5 chronic kidney disease or end stage renal disease; Y83.8 Other surgical procedures as the cause of abnormal reaction of the patient, or of later complication, without mention of misadventure at the time of the procedure; I25.10 Atherosclerotic heart disease of native coronary artery without angina pectoris; G47.33 Obstructive sleep apnea (adult) (pediatric); E78.5 Hyperlipidemia, unspecified; N25.0 Renal osteodystrophy; K59.03 Drug induced constipation; G89.18 Other acute postprocedural pain; T40.605A Adverse effect of unspecified narcotics, initial encounter; J44.9 Chronic obstructive pulmonary disease, unspecified; Z95.1 Presence of aortocoronary bypass graft; Z99.2 Dependence on renal dialysis; Z79.4 Long term (current) use of insulin; Z79.82 Long term (current) use of aspirin; Z79.899 Other long term (current) drug therapy
CPT/HCPCS: 36415; 72192; 74019; 80048; 82947; 85025; 85610; 85730; 86850; 86900; 86901; 86923; 90999; 94640; 94664; 97116; 97162; 99214; 99285; J1170; J1200; J2270; J2370; J2371; J2405; P9016

== ENCOUNTER → 2023-02-07 22:00 | Outpatient (BNV) | payer OTHER, SELFPAY | PROVIDERS: Admitting Provider Surgery; Emergency Provider Emergency Medicine; Visit Provider Surgery | DX: K64.8 Other hemorrhoids (principal) | CPT/HCPCS: 45330; 99024; 99231; 99232; 99238; 99499 ==

== ENCOUNTER → 2023-02-09 14:12 | Outpatient (BNV) | payer OTHER, SELFPAY | PROVIDERS: Admitting Provider Surgery; Emergency Provider Emergency Medicine; Visit Provider Student in an Organized Health Care Education/Training Program | DX: K92.2 Gastrointestinal hemorrhage, unspecified (principal); N18.6 End stage renal disease; Z99.2 Dependence on renal dialysis | CPT/HCPCS: 99222; 99231; 99232 ==

== ENCOUNTER 2023-02-20 11:21 | Outpatient (AMB) | payer OTHER, SELFPAY ==
[2023-02-20 11:28] VITALS: BP 167/72; PULSE 61
--- NOTE | 2023-02-20 11:28 | MHC.OFFVIS ---
Intake Vital Signs 02/20/23 11:28 Weight 132 lb BP 167/72 H Blood Pressure Location Rt brachial Position Sitting Pulse 61 Intake Visit Reasons: S/P hemorrhoidectomy Intake Note: Patient here s/p hemorrhoidectomy. C/o pain and bleeding. Inquiring about Allergies No Known Allergies Allergy (Verified 01/11/23 10:13) HPI HPI Comments History of Present Illness Details Patient presents postop status post hemorrhoidectomy. She had a recent hospitalization for lower GI bleed which demonstrated no obvious pathology. This included a colonoscopy as well as exam under anesthesia. Aside from incisional discomfort she is doing well. She has been no recurrence of her bleeding. She is tolerating her diet. She is having normal bowel habits. 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 Hypercalcemia SHELIA (obstructive sleep apnea) Other and unspecified hyperlipidemia Type 2 diabetes mellitus with unspecified complications Surgical History H/O angioplasty H/O colonoscopy Hemorrhoids History of coronary artery bypass graft (~2018) History of hemorrhoidectomy (01/30/23) History of tubal ligation Family History Father Cardiovascular disease Hypertension Mother Cardiovascular disease Hypertension Social History Household Members: Other Household Members Other:: son Housing: Apartment Housing Other:: senior apartment Are you a primary gericare aide to a significant other at home: No Do you presently have visiting nurse or other home services: Yes ([facility]) Alcohol intake: never Patient Tobacco Use Status: Never used Tobacco Advance Directives Date on File: 12/03/20 service: No 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al status: disabled Female Reproductive History Menstrual Age of Menarche: 12 Physical Exam Vital Signs: Last Vital Signs Pulse 61 02/20/23 11:28 BP 167/72 H 02/20/23 11:28 GI Other: Rectal exam demonstrates hemorrhoidal wounds healing uneventfully. Assessment & Plan Assessment & Plan (1) Hemorrhoids: Code(s): K64.9 - Unspecified hemorrhoids Plan Patient is doing well, and her facility has been given local instructions, and she will follow-up p.r.n.. Medications: Discontinued insulin glargine Patient states that if her blood sugar is greater than 100 she takes 7 units and if her blood sugar is less than 100 she takes no insulin. 6 units (0.06 mL) subcut BEDTIME 0 mL 0RF Coding Level of Care Code Global (24013) Diagnoses Hemorrhoids K64.9
== END 2023-02-20 11:30 | disposition home or self-care (01) ==
LOC: HO.HGS 11:21
PROVIDERS: PCP Internal Medicine; Visit Provider Surgery
DX: K64.9 Unspecified hemorrhoids (principal)
CPT/HCPCS: 99024

== ENCOUNTER → 2023-02-20 11:21 | Outpatient (BNVA) | payer OTHER, SELFPAY | PROVIDERS: PCP Internal Medicine; Visit Provider Surgery ==

== ENCOUNTER 2023-02-22 20:36 | Emergency (ER) | payer OTHER, SELFPAY ==
--- NOTE | 2023-02-22 | ECG_ITS ---
Test Reason : CHEST PAIN Blood Pressure : / mmHG Vent. Rate : 081 BPM Atrial Rate : 081 BPM P-R Int : 152 ms QRS Dur : 098 ms QT Int : 404 ms P-R-T Axes : 054 045 045 degrees QTc Int : 469 ms Normal sinus rhythm Incomplete right bundle branch block Septal infarct (cited on or before 28-NOV-2017) Abnormal ECG When compared with ECG of 07-FEB-2023 00:17, No significant change was found Referred By: Generic ED Physician Electronically Signed By:RUSTY DUVALL MD
--- NOTE | ~2023-02-22 | XR_ITS ---
EXAMINATION: XR ABDOMEN KUB CLINICAL INDICATION: Impaction. Recent surgery. COMPARISON: 02/07/2023 TECHNIQUE: AP view of the abdomen. FINDINGS: Normal bowel gas pattern. No dilated loops of bowel. No significant abnormal colonic stool burden. There is stool seen in the rectum. Phleboliths in the pelvis. The lung bases are clear. Degenerative changes of the spine. XR/XR KUB IMPRESSION: Nonobstructive bowel gas pattern. No significant abnormal colonic stool burden.
[2023-02-22 20:40] VITALS: BP 176/80; PULSE 67; O2SAT 99
[2023-02-22 21:05] VITALS: BP 181/101; PULSE 77; RESP 22; TEMP 37.3; O2SAT 100; BMI 24.0
[2023-02-22 21:43] LABS: MANUAL DIFF FLAG NO
[2023-02-22 21:45] LABS: Basophils Percent Auto 0.4 % (0-2); Eosinophils Percent Auto 0.4 % (0-4); Hematocrit 33.8 % (37.0-47.0); Hemoglobin 11.4 g/dl (12.0-16.0); Imm Gran Abs Auto 0.04 X10*3/uL (0.00-0.03); Imm Gran Pct Auto 0.4 % (0.0-0.4); Lymphocytes Absolute Auto 1.7 X10*3/uL (1.2-4.9); Lymphocytes Percent Auto 18.2 % (20-40); Mean Corpuscular HGB Conc 33.7 g/dl (31.0-35.0); Mean Corpuscular Hemoglobin 30.2 pg (27.0-33.0); Mean Corpuscular Volume 89.7 fL (80.0-98.0); Mean Platelet Volume 9.7 fL (9.4-12.3); Monocytes Absolute Auto 0.4 X10*3/uL (0.1-1.2); Monocytes Percent Auto 4.5 % (2-11); NRBC Pct Auto 0.2 /100WBC (0.0-0.2); Neutrophils Absolute Auto 7.2 x10*3/uL (2.0-8.3); Neutrophils Percent Auto 76.1 % (45-73); Platelet Count 275 X10*3/uL (160-400); Red Blood Count 3.77 X10*6/uL (4.20-5.50); White Blood Count 9.5 X10*3/uL (4.8-10.8)
[2023-02-22] MEDS: LORazepam 1 MG TABLET PO (22:11)
[2023-02-22 22:22] LABS: Alanine Aminotransferase < 5 U/L (0-31); Albumin Level 4.2 g/dL (3.5-5.0); Alkaline Phosphatase 113 U/L (39-117); Anion Gap 25 (12-20); Aspartate Amino Transferase 10 U/L (5-31); Bilirubin Total 0.5 mg/dL (0.0-1.0); Blood Urea Nitrogen 22 mg/dL (9-16); Calcium 11.7 mg/dL (8.4-10.2); Carbon Dioxide 22 mmol/L (22-29); Chloride 94 mmol/L (96-108); Creatinine Clr Calc Pharmacy 6.9; Estimated Glomerular Filt Rate 6; Glucose Random 258 mg/dL (60-115); Lipase 74 U/L (8-78); Potassium 3.8 mmol/L (3.3-5.1); Sodium 137 mmol/L (135-145); Total Protein 7.8 g/dL (6.5-8.0)
--- NOTE | 2023-02-22 22:23 | PC.NURSE ---
Pt A&Ox3, reports 05/09 hemorrhoid pain, states she had surgery 2 weeks ago, with N/V starting today. Pt hyperventilating, instructions given to slow deep breathing. ABD non-tender to touch, hypoactive bowel sounds, reports last BM was 2 or 3 days ago. Blood work collected and sent to lab, EKG obtained and reviewed by provider.
--- NOTE | 2023-02-22 22:26 | ED.GENADULT ---
HPI - General Adult General Chief complaint: General Medical Stated complaint: rectal pain Time Seen by Provider: 02/22/23 21:36 Source: patient, RN notes reviewed and old records reviewed Mode of arrival: ambulatory History of Present Illness HPI narrative: 68-year-old female with a past medical history of ESRD on HD (T/T/S), CAD s/p bypass, HTN, diabetes, GERD, recently admitted to our facility for EUA/flex sig due to hematochezia s/p hemorrhoidectomy on 01/30/23, presenting to the ED via EMS from SNF for increasing abdominal and rectal pain with nausea and vomiting x today. Patient states feels like she needs to have BM however is afraid to push it out. Does report small BM in the ED, prior to this last BM 2 days ago, denies passing flatness. Denies melena/hematochezia, dysuria/hematuria Of note patient with outpatient general surgery visit on 02/20 with appropriate wound healing Onset (ago): hour(s) Related Data Home Medications Medication Instructions Recorded Confirmed ferrous sulfate 325 mg (65 mg 325 mg PO BIDWM 06/10/20 02/20/23 iron) tablet hydralazine 10 mg tablet 10 mg PO BID 06/10/20 02/20/23 pantoprazole 40 mg tablet,delayed 40 mg PO DAILY@0630 06/10/20 02/20/23 release sertraline 100 mg tablet 150 mg PO DAILY 06/10/20 02/20/23 ascorbic acid (vitamin C) 500 mg 1 tab PO BID 12/03/20 02/20/23 tablet (Vitamin C) montelukast 10 mg tablet 1 tab PO BEDTIME 12/03/20 02/20/23 furosemide 40 mg tablet 120 mg PO BID 05/06/21 02/20/23 cetirizine 5 mg tablet 5 mg PO DAILY 10/27/21 02/20/23 insulin glargine 100 unit/mL (3 8 unit subcut QAM 01/25/23 02/20/23 mL) subcutaneous pen (Lantus Solostar U-100 Insulin) sevelamer carbonate 800 mg tablet 1,600 mg PO TID 01/25/23 02/20/23 acetaminophen 500 mg tablet 1,000 mg PO Q8H PRN Pain 02/08/23 02/20/23 benzonatate 200 mg capsule 200 mg PO BID PRN cough 02/08/23 02/20/23 budesonide-formoterol HFA 80 2 puff inhalation BID 02/08/23 02/20/23 mcg-4.5 mcg/actuation aerosol inhaler (Symbicort) cyanocobalamin (vitamin B-12) 1,000 mcg IM QMONTH 02/08/23 02/20/23 1,000 mcg/mL injection solution insulin glargine 100 unit/mL (3 7 unit subcut BEDTIME 02/08/23 02/20/23 mL) subcutaneous pen (Lantus Solostar U-100 Insulin) lidocaine 5 % topical ointment 1 appl topical DAILY PRN Pain 02/08/23 02/20/23 Previous Rx's Medication Instructions Recorded ezetimibe 10 mg tablet 10 mg PO QAM #90 tabs 03/21/22 carvedilol 6.25 mg tablet 6.25 mg PO BID 90 days #180 tabs 03/25/22 atorvastatin 80 mg tablet 80 mg PO BEDTIME #90 tabs 08/17/22 aspirin 81 mg tablet,delayed 81 mg PO BEDTIME 90 days #90 tabs 11/08/22 release alirocumab 75 mg/mL subcutaneous 75 mg subcut Q2W #2 mL 12/05/22 pen injector (Praluent Pen) amlodipine 10 mg tablet 10 mg PO DAILY 90 days #90 tabs 12/06/22 hydrocodone 5 mg-acetaminophen 325 1 tab PO Q6-8H PRN pain #30 tabs 01/30/23 mg tablet Allergies Allergy/AdvReac Type Severity Reaction Status Date / Time No Known Allergies Allergy Verified 02/22/23 21:14 Review of Systems Review of Systems: Constitutional: No Fever, No Chills, No Night Sweats, No Fatigue, No Malaise ENT/Mouth: No Ear Pain, No sore throat, No Rhinorrhea, No Swallowing Difficulty Eyes: No Eye Pain, No Swelling, No Redness, No Vision Changes Cardiovascular: No Chest Pain, No SOB, No Edema, No Palpitations Respiratory: No Cough, No Sputum, No Dyspnea Gastrointestinal: + Nausea, + Vomiting, + Diarrhea, + Constipation, + Abdominal pain, No Hematochezia, No Melena Genitourinary: No irregular bleeding, No Dysuria, No Urinary Frequency, No Hematuria, No Flank Pain Musculoskeletal: No joint pain, No Myalgias, No Joint Swelling Skin: No Skin Lesions, No rash Neuro: No Weakness, No Dizziness, No Headache Yes all other systems are reviewed and are negative Constitutional: Constitutional: Reports as per [facility] Past Medical History Attestation statement: The following information was validated with the patient. 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 Hypercalcemia SHELIA (obstructive sleep apnea) Other and unspecified hyperlipidemia Type 2 diabetes mellitus with unspecified complications Surgical History H/O angioplasty H/O colonoscopy Hemorrhoids History of coronary artery bypass graft (~2018) History of hemorrhoidectomy (01/30/23) History of tubal ligation Family History Family History Father Cardiovascular disease Hypertension Mother Cardiovascular disease Hypertension Social History Social History Household Members: Other Household Members Other:: son Housing: Apartment Housing Other:: senior apartment Are you a primary occasional caregiver to a significant other at home: No Do you presently have visiting nurse or other home services: Yes ([facility]NA) Alcohol intake: never Patient Tobacco Use Status: Never used Tobacco Smoked in Last 30 Days: No Use of substances other than those prescribed or required for medical reasons: No Advance Directives: Yes Advance Directives on File: Yes Advance Directives Date on File: 12/03/20 service: No 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al status: disabled Physical Exam ED Vital Signs: Vital Signs - 24 hr 02/22/23 21:05 Temperature 99.2 F Pulse Rate 77 Respiratory Rate 22 H Blood Pressure 181/101 H Pulse Oximetry 100 Oxygen Delivery Method Room Air BMI result Body Mass Index 24.0 Const Other: Uncomfortable General: cooperative and no acute distress Orientation/consciousness: patient oriented x3 Limitations: no limitations HENMT Head: Yes normal to inspection and Yes atraumatic Ears: hearing grossly normal bilaterally General nose exam: Normal external nose present Face and sinus: Yes normal facial exam Eyes General: appearance normal, both eyes and all related structures EOM: EOMs intact bilaterally Neck Neck: Yes normal visual inspection and Yes no meningeal signs Resp Effort & Inspection: normal respiratory effort and no respiratory distress Cardio Rate: regular rate GI Other: On rectal exam hemorrhoidal wounds healing appropriately without erythema, fluctuance/induration/drainage or active bleeding. Fecal impaction noted with surrounding diarrhea expressing Inspection: Yes normal to inspection Palpation (GI): Soft to palpation, Tenderness to palpation present (GI) (Diffusely, no rebound or guarding), no guarding and not rigid Skin Rashes: no rashes Wounds: no wounds Neuro General: patient oriented x3, tone normal and no meningeal signs Gait exam (Neuro): Normal gait present Extrem General: Yes normal to inspection Course Course Course Narrative: -2311--no leukocytosis. H&H at patient's baseline. Chronic CKD, patient is HD patient - concern for intra-abdominal pathology with initial exquisite tenderness on exam, CT was ordered > however re-evaluation after disimpaction patient reports symptomatic improvement at present, abdomen soft, nontender reports only rectal discomfort XR KUB IMPRESSION: Nonobstructive bowel gas pattern. No significant abnormal colonic stool burden. > is actively passing BMs in the ED. Patient is safe for dispo back to SNF Results discussed with patient including worrisome signs and symptoms and strict return precautions, and when to return to the emergency department. They verbalized understanding and feel safe for discharge at this time. Medications Administered Discontinued Medications Generic Name Dose Route Start Last Admin Trade Name Freq PRN Reason Stop Dose Admin Lorazepam 1 mg 02/22/23 22:07 02/22/23 22:11 Lorazepam 1 Mg Tablet PO 02/22/23 22:08 1 mg ONCE ONE Administration Mineral Oil 133 ml 02/22/23 22:58 02/22/23 23:24 Mineral Oil Enema 133 Ml Enema RI 02/22/23 22:59 133 ml ONCE ONE Administration Medical Decision Making Medical Decision Making MDM Narrative: 68-year-old female with a past medical history of ESRD on HD (T/T/S), CAD s/p bypass, HTN, diabetes, GERD, recently admitted to our facility for EUA/flex sig due to hematochezia s/p hemorrhoidectomy on 01/30/23, presenting to the ED via EMS from SNF for increasing abdominal and rectal pain with nausea and vomiting x today. On exam hypertensive, tachypneic, likely from discomfort, physical exam as noted above with soft abdomen, diffusely tender, appropriately healing hemorrhoidal wound with noted fecal impaction. Watery diarrhea expressed around impaction with manual disimpaction/ manipulation. Patient disimpacted with success. Concern for impaction/constipation vs SBO. Low suspicion for cellulitis/underlying abscess or postsurgical complication. Lower suspicion for diverticulitis/appendicitis. Plan: Labs, UA, KUB, enema s/p disimpaction Please refer to course for remaining clinical decision making, interpretation of labs/imaging results, and discussions with consultants and/or family members. Differential Diagnosis Differential Diagnoses: The differential diagnosis associated with the presentation includes As above Admission/Observation Consideration of admission/observation: Escalation of care including admission/observation considered Lab Data MDM Lab Attestation statement: I reviewed the patient's lab results. 02/22/23 21:36 02/22/23 21:36 Labs: Lab Results 02/22/23 02/22/23 Range/Units 21:36 21:36 WBC 9.5 (4.8-10.8) X10*3/uL RBC 3.77 L (4.20-5.50) X10*6/uL Hgb 11.4 L (12.0-16.0) g/dl Hct 33.8 L (37.0-47.0) % MCV 89.7 (80.0-98.0) fL MCH 30.2 (27.0-33.0) pg MCHC 33.7 (31.0-35.0) g/dl RDW 14.0 (11.0-16.0) % Plt Count 275 D (160-400) X10*3/uL MPV 9.7 (9.4-12.3) fL Immature Gran % (Auto) 0.4 (0.0-0.4) % Neut % (Auto) 76.1 H (45-73) % Lymph % (Auto) 18.2 L (20-40) % [place] % (Auto) 4.5 (2-11) % Eos % (Auto) 0.4 (0-4) % Baso % (Auto) 0.4 (0-2) % Lymph # (Auto) 1.7 (1.2-4.9) X10*3/uL [place] # (Auto) 0.4 (0.1-1.2) X10*3/uL Eos # (Auto) 0.0 (0.0-0.4) X10*3/uL Baso # (Auto) 0.0 (0.0-0.2) X10*3/uL Abs Immat Gran (auto) 0.04 H (0.00-0.03) X10*3/uL Absolute Neuts (auto) 7.2 (2.0-8.3) x10*3/uL Absolute Nucleated RBC 0.020 H (0.0-0.012) X10*3/uL Nucleated RBC % (auto) 0.2 (0.0-0.2) /100WBC Sodium 137 (135-145) mmol/L Potassium 3.8 (3.3-5.1) mmol/L Chloride 94 L (96-108) mmol/L Carbon Dioxide 22 (22-29) mmol/L Anion Gap 25 H (12-20) BUN 22 H (9-16) mg/dL Creatinine 6.56 H* (0.5-1.4) mg/dL Estim Creat Clear Calc 6.9 Estimated GFR 6 Random Glucose 258 H (60-115) mg/dL Calcium 11.7 H D (8.4-10.2) mg/dL Total Bilirubin 0.5 (0.0-1.0) mg/dL AST 10 (5-31) U/L ALT < 5 (0-31) U/L Alkaline Phosphatase 113 (39-117) U/L Total Protein 7.8 (6.5-8.0) g/dL Albumin 4.2 (3.5-5.0) g/dL Lipase 74 (8-78) U/L Independent Historian Clinical information obtained from an independent historian. History obtained from or confirmed by: Other (Daughter) External Record Review External record reviewed: Inpatient record, Office record, Outpatient record, Prior outpatient labs, Prior outpatient radiology, Primary care record and Outside ED record Tests considered The following testing was considered but not selected: As above Chronic Conditions Patient?s care impacted by: Other (ESRD on HD) Discharge Plan Discharge Clinical Impression: Fecal impaction Prescriptions: No Action ezetimibe 10 mg tablet 10 mg PO QAM Qty: 90 3RF carvedilol 6.25 mg tablet 6.25 mg PO BID 90 Days Qty: 180 3RF Rx Instructions: must administer with a meal/food atorvastatin 80 mg tablet 80 mg PO BEDTIME Qty: 90 3RF aspirin 81 mg tablet,delayed release (DR/EC) 81 mg PO BEDTIME 90 Days Qty: 90 3RF Praluent Pen 75 mg/mL pen injector 75 mg subcut Q2W Qty: 2 5RF Rx Instructions: inject into abdomen, thigh, or upper arm (deltoid muscle); rotate sites amlodipine 10 mg tablet 10 mg PO DAILY 90 Days Qty: 90 3RF ascorbic acid (vitamin C) [Vitamin C] 500 mg tablet 1 tab PO BID montelukast 10 mg tablet 1 tab PO BEDTIME budesonide-formoterol [Symbicort] 80-4.5 mcg/actuation HFA aerosol inhaler 2 puff inhalation BID insulin glargine [Lantus Solostar U-100 Insulin] 100 unit/mL (3 mL) insulin pen 7 unit subcut BEDTIME Rx Instructions: Patient states that if her blood sugar is greater than 100 she takes 7 units and if her blood sugar is less than 100 she takes no insulin. acetaminophen 500 mg tablet 1,000 mg PO Q8H PRN (Reason: Pain) lidocaine 5 % Ointment 1 appl TOPICAL DAILY PRN (Reason: Pain) cyanocobalamin (vitamin B-12) 1,000 mcg/mL solution 1,000 mcg IM QMONTH benzonatate 200 mg capsule 200 mg PO BID PRN (Reason: cough) sevelamer carbonate 800 mg tablet 1,600 mg PO TID insulin glargine [Lantus Solostar U-100 Insulin] 100 unit/mL (3 mL) insulin pen 8 unit subcut QAM hydrocodone-acetaminophen 5-325 mg tablet 1 tab PO Q6-8H PRN (Reason: pain) Qty: 30 0RF Rx Instructions: Partial Fill upon patient request. hydralazine 10 mg tablet 10 mg PO BID ferrous sulfate 325 mg (65 mg iron) tablet 325 mg PO BIDWM pantoprazole 40 mg tablet,delayed release (DR/EC) 40 mg PO DAILY@0630 sertraline 100 mg tablet 150 mg PO DAILY furosemide 40 mg tablet 120 mg PO BID cetirizine 5 mg tablet 5 mg PO DAILY
[2023-02-22] MEDS: Mineral OiL enema 133 ML ENEMA PR (23:24)
[2023-02-23 01:36] VITALS: BP 178/86; PULSE 72; RESP 18; TEMP 37.3; O2SAT 97
--- NOTE | 2023-02-23 01:36 | MHC.EDTECH ---
call out to [facility] at 0135 to book transport for pt back to [facility], estimated eta given was [id number]
--- NOTE | 2023-02-23 01:53 | PC.NURSE ---
Pt denies any pain. Instructions understood by Pt and nurse Juwan. Pt discharged back to [facility] via ambulance.
== END 2023-02-23 02:31 | disposition skilled nursing facility (03) ==
PROVIDERS: Emergency Provider Student in an Organized Health Care Education/Training Program; PCP Internal Medicine
DX: K56.41 Fecal impaction (principal); E11.22 Type 2 diabetes mellitus with diabetic chronic kidney disease; I12.0 Hypertensive chronic kidney disease with stage 5 chronic kidney disease or end stage renal disease; N18.6 End stage renal disease; Z99.2 Dependence on renal dialysis; Z79.4 Long term (current) use of insulin; Z79.899 Other long term (current) drug therapy; Z79.82 Long term (current) use of aspirin
CPT/HCPCS: 36415; 74018; 80053; 83690; 85025; 93005; 99284

== ENCOUNTER → 2023-02-22 22:16 | Outpatient (BNV) | payer OTHER, SELFPAY | PROVIDERS: Emergency Provider Student in an Organized Health Care Education/Training Program; PCP Internal Medicine; Visit Provider Internal Medicine Cardiovascular Disease | DX: R07.9 Chest pain, unspecified (principal) | CPT/HCPCS: 93010 ==

== ENCOUNTER 2023-02-26 19:38 | Emergency (ER) | payer OTHER, SELFPAY ==
--- NOTE | ~2023-02-26 | XR_ITS ---
EXAMINATION: XR ABDOMEN KUB CLINICAL INDICATION: Fecal impaction COMPARISON: 02/22/2023 TECHNIQUE: AP view of the abdomen. FINDINGS: The bowel pattern is similar to previous. Nonobstructive. There is stool felt to be present in the rectosigmoid. Volume is mild to moderate XR/XR KUB IMPRESSION: Mild to moderate rectosigmoid stool. Nonobstructing bowel pattern
[2023-02-26 19:50] VITALS: BP 140/60; BP 169/56; PULSE 73; PULSE 88; RESP 22; TEMP 36.9; O2SAT 98; O2SAT 99; BMI 25.1
[2023-02-26 20:01] LABS: Hematocrit 32.4 % (37.0-47.0); Hemoglobin 10.9 g/dl (12.0-16.0); Mean Corpuscular HGB Conc 33.6 g/dl (31.0-35.0); Mean Corpuscular Hemoglobin 30.1 pg (27.0-33.0); Mean Corpuscular Volume 89.5 fL (80.0-98.0); Mean Platelet Volume 9.7 fL (9.4-12.3); Platelet Count 211 X10*3/uL (160-400); Red Blood Count 3.62 X10*6/uL (4.20-5.50); Red Cell Distribution Width 14.6 % (11.0-16.0); White Blood Count 6.7 X10*3/uL (4.8-10.8)
--- NOTE | 2023-02-26 20:32 | ED.ABDPAIN ---
HPI - Abdominal Pain General Chief Complaint: Abdominal Pain Stated Complaint: ABD PAIN Time Seen by Provider: 02/26/23 20:20 Source: patient Mode of arrival: ambulatory Limitations: no limitations History of Present Illness HPI narrative: Patient had hemorrhoidal surgery on 01/30 since then patient in rehab and having constipation again patient comes here as she did not have any bowel movement since she was discharged from our ER on 02/07 when she came for same Related Data Home Medications Medication Instructions Recorded Confirmed ferrous sulfate 325 mg (65 mg 325 mg PO BIDWM 06/10/20 02/20/23 iron) tablet hydralazine 10 mg tablet 10 mg PO BID 06/10/20 02/20/23 pantoprazole 40 mg tablet,delayed 40 mg PO DAILY@0630 06/10/20 02/20/23 release sertraline 100 mg tablet 150 mg PO DAILY 06/10/20 02/20/23 ascorbic acid (vitamin C) 500 mg 1 tab PO BID 12/03/20 02/20/23 tablet (Vitamin C) montelukast 10 mg tablet 1 tab PO BEDTIME 12/03/20 02/20/23 furosemide 40 mg tablet 120 mg PO BID 05/06/21 02/20/23 cetirizine 5 mg tablet 5 mg PO DAILY 10/27/21 02/20/23 insulin glargine 100 unit/mL (3 8 unit subcut QAM 01/25/23 02/20/23 mL) subcutaneous pen (Lantus Solostar U-100 Insulin) sevelamer carbonate 800 mg tablet 1,600 mg PO TID 01/25/23 02/20/23 acetaminophen 500 mg tablet 1,000 mg PO Q8H PRN Pain 02/08/23 02/20/23 benzonatate 200 mg capsule 200 mg PO BID PRN cough 02/08/23 02/20/23 budesonide-formoterol HFA 80 2 puff inhalation BID 02/08/23 02/20/23 mcg-4.5 mcg/actuation aerosol inhaler (Symbicort) cyanocobalamin (vitamin B-12) 1,000 mcg IM QMONTH 02/08/23 02/20/23 1,000 mcg/mL injection solution insulin glargine 100 unit/mL (3 7 unit subcut BEDTIME 02/08/23 02/20/23 mL) subcutaneous pen (Lantus Solostar U-100 Insulin) lidocaine 5 % topical ointment 1 appl topical DAILY PRN Pain 02/08/23 02/20/23 Previous Rx's Medication Instructions Recorded ezetimibe 10 mg tablet 10 mg PO QAM #90 tabs 03/21/22 carvedilol 6.25 mg tablet 6.25 mg PO BID 90 days #180 tabs 03/25/22 atorvastatin 80 mg tablet 80 mg PO BEDTIME #90 tabs 08/17/22 aspirin 81 mg tablet,delayed 81 mg PO BEDTIME 90 days #90 tabs 11/08/22 release alirocumab 75 mg/mL subcutaneous 75 mg subcut Q2W #2 mL 12/05/22 pen injector (Praluent Pen) amlodipine 10 mg tablet 10 mg PO DAILY 90 days #90 tabs 12/06/22 hydrocodone 5 mg-acetaminophen 325 1 tab PO Q6-8H PRN pain #30 tabs 01/30/23 mg tablet Allergies Allergy/AdvReac Type Severity Reaction Status Date / Time No Known Allergies Allergy Verified 02/22/23 21:14 Review of Systems Review of Systems Yes all other systems are reviewed and are negative [facility] Past Medical History Medical History Asthma Atherosclerotic cardiovascular disease Chronic kidney disease DJD (degenerative joint disease) Edema End stage chronic kidney disease Essential hypertension GERD (gastroesophageal reflux disease) 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 Hypercalcemia SHELIA (obstructive sleep apnea) Other and unspecified hyperlipidemia Type 2 diabetes mellitus with unspecified complications Surgical History H/O angioplasty H/O colonoscopy Hemorrhoids History of coronary artery bypass graft (~2018) History of hemorrhoidectomy (01/30/23) History of tubal ligation Family History Family History Father Cardiovascular disease Hypertension Mother Cardiovascular disease Hypertension Social History Social History Household Members: Other Household Members Other:: son Housing: Apartment Housing Other:: senior apartment Are you a primary care management associate to a significant other at home: No Do you presently have visiting nurse or other home services: Yes ([facility]) Alcohol intake: never Patient Tobacco Use Status: Never used Tobacco Smoked in Last 30 Days: No Use of substances other than those prescribed or required for medical reasons: No Advance Directives: Yes Advance Directives on File: Yes Advance Directives Date on File: 12/03/20 service: No 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al status: disabled Physical Exam ED Vital Signs: Vital Signs - 24 hr 02/26/23 19:50 Temperature 98.4 F Pulse Rate 73 Respiratory Rate 22 H Blood Pressure 169/56 H Pulse Oximetry 99 Oxygen Delivery Method Room Air BMI result Body Mass Index 25.1 Appearance: Alert. Oriented X3. No acute distress. ENT: Pharynx normal. Oral Mucosa moist Neck: Normal inspection. Neck supple. CVS: Normal heart rate and rhythm. Pulses normal. Respiratory: No respiratory distress. Equal air entry bilateral, no wheezing/rales/rhonchi Abdomen: Soft and nontender. Bowel sounds are present, no mass palpable, no CVA tenderness rectal: Healing hemorrhoid surgery soft stool Skin: Skin warm and dry. Normal skin color. Normal skin turgor. Extremities: No lower extremity edema. No calf tenderness Neuro: Oriented X 3. No motor deficit. Medical Decision Making Medical Decision Making MDM Narrative: After rectal exam patient had good bowel movement which had soft stool. Will discharge patient back to rehab Differential Diagnosis Differential Diagnoses: The differential diagnosis associated with the presentation includes Constipation/SBO Lab Data 02/26/23 19:54 02/26/23 19:54 Labs: Lab Results 02/26/23 02/26/23 Range/Units 19:54 19:54 WBC 6.7 (4.8-10.8) X10*3/uL RBC 3.62 L (4.20-5.50) X10*6/uL Hgb 10.9 L (12.0-16.0) g/dl Hct 32.4 L (37.0-47.0) % MCV 89.5 (80.0-98.0) fL MCH 30.1 (27.0-33.0) pg MCHC 33.6 (31.0-35.0) g/dl RDW 14.6 (11.0-16.0) % Plt Count 211 (160-400) X10*3/uL MPV 9.7 (9.4-12.3) fL Absolute Nucleated RBC 0.000 (0.0-0.012) X10*3/uL Nucleated RBC % (auto) 0.0 (0.0-0.2) /100WBC Sodium 135 (135-145) mmol/L Potassium 3.5 (3.3-5.1) mmol/L Chloride 93 L (96-108) mmol/L Carbon Dioxide 24 (22-29) mmol/L Anion Gap 22 H (12-20) BUN 17 H (9-16) mg/dL Creatinine 5.77 H* (0.5-1.4) mg/dL Estim Creat Clear Calc 7.8 Estimated GFR 7 Random Glucose 283 H (60-115) mg/dL Calcium 11.3 H (8.4-10.2) mg/dL Total Bilirubin 0.4 (0.0-1.0) mg/dL AST 10 (5-31) U/L ALT 6 (0-31) U/L Alkaline Phosphatase 96 (39-117) U/L Total Protein 7.3 (6.5-8.0) g/dL Albumin 4.0 (3.5-5.0) g/dL Lipase 58 (8-78) U/L Radiology Impression Discussion of test interpretation with radiology: I have reviewed the radiologist's reading. Radiologist Impression: XR/XR KUB IMPRESSION: Mild to moderate rectosigmoid stool. Nonobstructing bowel pattern ? Discharge Plan Discharge Clinical Impression: Constipation Patient Disposition: Xfer SNF Transfer Details: Patient had constipation secondary to rectal spasm post hemorrhoidal surgery Continue stool softener and patient should try to push to have normal bowel movement Instructions: Constipation (ED) Additional Instructions: Continue stool softeners and instruct patient to push to have bowel Prescriptions: No Action ezetimibe 10 mg tablet 10 mg PO QAM Qty: 90 3RF carvedilol 6.25 mg tablet 6.25 mg PO BID 90 Days Qty: 180 3RF Rx Instructions: must administer with a meal/food atorvastatin 80 mg tablet 80 mg PO BEDTIME Qty: 90 3RF aspirin 81 mg tablet,delayed release (DR/EC) 81 mg PO BEDTIME 90 Days Qty: 90 3RF Praluent Pen 75 mg/mL pen injector 75 mg subcut Q2W Qty: 2 5RF Rx Instructions: inject into abdomen, thigh, or upper arm (deltoid muscle); rotate sites amlodipine 10 mg tablet 10 mg PO DAILY 90 Days Qty: 90 3RF ascorbic acid (vitamin C) [Vitamin C] 500 mg tablet 1 tab PO BID montelukast 10 mg tablet 1 tab PO BEDTIME budesonide-formoterol [Symbicort] 80-4.5 mcg/actuation HFA aerosol inhaler 2 puff inhalation BID insulin glargine [Lantus Solostar U-100 Insulin] 100 unit/mL (3 mL) insulin pen 7 unit subcut BEDTIME Rx Instructions: Patient states that if her blood sugar is greater than 100 she takes 7 units and if her blood sugar is less than 100 she takes no insulin. acetaminophen 500 mg tablet 1,000 mg PO Q8H PRN (Reason: Pain) lidocaine 5 % Ointment 1 appl TOPICAL DAILY PRN (Reason: Pain) cyanocobalamin (vitamin B-12) 1,000 mcg/mL solution 1,000 mcg IM QMONTH benzonatate 200 mg capsule 200 mg PO BID PRN (Reason: cough) sevelamer carbonate 800 mg tablet 1,600 mg PO TID insulin glargine [Lantus Solostar U-100 Insulin] 100 unit/mL (3 mL) insulin pen 8 unit subcut QAM hydrocodone-acetaminophen 5-325 mg tablet 1 tab PO Q6-8H PRN (Reason: pain) Qty: 30 0RF Rx Instructions: Partial Fill upon patient request. hydralazine 10 mg tablet 10 mg PO BID ferrous sulfate 325 mg (65 mg iron) tablet 325 mg PO BIDWM pantoprazole 40 mg tablet,delayed release (DR/EC) 40 mg PO DAILY@0630 sertraline 100 mg tablet 150 mg PO DAILY furosemide 40 mg tablet 120 mg PO BID cetirizine 5 mg tablet 5 mg PO DAILY
[2023-02-26 20:33] LABS: Alanine Aminotransferase 6 U/L (0-31); Alkaline Phosphatase 96 U/L (39-117); Anion Gap 22 (12-20); Aspartate Amino Transferase 10 U/L (5-31); Bilirubin Total 0.4 mg/dL (0.0-1.0); Blood Urea Nitrogen 17 mg/dL (9-16); Calcium 11.3 mg/dL (8.4-10.2); Carbon Dioxide 24 mmol/L (22-29); Chloride 93 mmol/L (96-108); Creatinine Clr Calc Pharmacy 7.8; Estimated Glomerular Filt Rate 7; Glucose Random 283 mg/dL (60-115); Lipase 58 U/L (8-78); Potassium 3.5 mmol/L (3.3-5.1); Sodium 135 mmol/L (135-145); Total Protein 7.3 g/dL (6.5-8.0)
--- NOTE | 2023-02-26 21:05 | PC.NURSE ---
pt a&o, no sob or chest pain, pt changed into hospital attire, provider in with Clinical Admissions Manager at the bedside to do rectal examination. Will continue tomonitor.
--- NOTE | 2023-02-26 22:57 | PC.NURSE ---
Assumed care of pt. Pt lying on stretcher, sleeping, easily rousable, no acute medical concerns at this time. Pending return ambulance at [id number].
[2023-02-27 02:47] VITALS: BP 171/64; PULSE 75; RESP 18; O2SAT 100
--- NOTE | 2023-02-27 02:52 | PC.NURSE ---
Report given to Bran at [facility].
== END 2023-02-27 02:53 | disposition skilled nursing facility (03) ==
PROVIDERS: Emergency Provider Internal Medicine
DX: K59.00 Constipation, unspecified (principal); R10.2 Pelvic and perineal pain; Z79.899 Other long term (current) drug therapy
CPT/HCPCS: 36415; 74018; 80053; 83690; 85027; 99284

== ENCOUNTER 2023-03-08 09:38 | Outpatient (REF) | payer OTHER, SELFPAY ==
[2023-03-08 12:40] LABS: TSH reflex Free T4 0.77 uIU/mL (0.32-4.0)
== END 2023-03-08 09:39 | disposition home or self-care (01) ==
LOC: HO.HHCL 09:38
PROVIDERS: Visit Provider Family Medicine
DX: K64.4 Residual hemorrhoidal skin tags (principal); D64.9 Anemia, unspecified; I25.9 Chronic ischemic heart disease, unspecified; G62.9 Polyneuropathy, unspecified; I12.0 Hypertensive chronic kidney disease with stage 5 chronic kidney disease or end stage renal disease; E11.22 Type 2 diabetes mellitus with diabetic chronic kidney disease; N18.6 End stage renal disease; Z79.4 Long term (current) use of insulin; Z99.2 Dependence on renal dialysis
CPT/HCPCS: 36415; 84443

== ENCOUNTER 2023-03-08 09:48 | Outpatient (REF) | payer OTHER, SELFPAY ==
--- NOTE | ~2023-03-08 | XR_ITS ---
EXAMINATION: Bilateral foot. CLINICAL INDICATIONS: Pain. COMPARISON: None. TECHNIQUE: 3 views each foot. FINDINGS: Left foot: The bones and joint space is maintained normal. No visible fracture, dislocation or subluxation seen. There is mild vascular calcification. The ankle mortise and subtalar joints are normal. There is a moderate size retrocalcaneal and small calcaneal heel enthesophytes. Right foot: The bones and joint space is maintained normal. No visible acute fracture, dislocation or subluxation. The ankle mortise and subtalar joint is normal. There is a small calcaneal heel and moderate size retrocalcaneal enthesophytes. Extensive vascular calcification is present. Bilateral moderate retrocalcaneal small calcaneal heel enthesophytes. No bony abnormality, fracture or subluxation. Extensive vascular calcification of the foot bilaterally is noted
== END 2023-03-08 09:49 | disposition home or self-care (01) ==
LOC: HO.HHCX 09:48
PROVIDERS: Visit Provider Family Medicine
DX: M79.671 Pain in right foot (principal); M79.672 Pain in left foot
CPT/HCPCS: 73630

== ENCOUNTER 2023-04-26 09:05 | Outpatient (AMB) | payer OTHER, SELFPAY ==
[2023-04-26 09:25] VITALS: BMI 25.1
--- NOTE | 2023-04-26 09:25 | MHC.OFFVIS ---
Intake Vital Signs 04/26/23 09:25 Height 5 ft 2 in Weight 137 lb BMI 25.1 Intake Visit Reasons: New Prob- Trigger little finger left Intake Note: Joslyn a 68 year old 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 female who presents today with son for an evaluation of bilateral index fingers. Patient reports both fingers have been locking and catching for about a year, denies injury. Intermittent pain, states fingers become itchy. No other tx. Denies numbness or tingling. Health Information Tech Name: Suraj ID#[id number] Allergies No Known Allergies Allergy (Verified 04/26/23 09:32) Medication List - Last Reconciled 04/26/23 by Staci Leonard PA-C acetaminophen 1,000 mg PO Q8H PRN alirocumab (Praluent Pen) 75 mg subcut Q2W amlodipine 10 mg PO DAILY 90 days ascorbic acid (vitamin C) (Vitamin C) 1 tab PO BID aspirin 81 mg PO BEDTIME 90 days atorvastatin 80 mg PO BEDTIME benzonatate 200 mg PO BID PRN budesonide-formoterol 80-4.5 mcg/actuation (Symbicort) 2 puffs inhalation BID carvedilol 6.25 mg PO BID 90 days cetirizine 5 mg PO DAILY cyanocobalamin (vitamin B-12) 1,000 mcg IM QMONTH ezetimibe 10 mg PO QAM ferrous sulfate 325 mg PO BIDWM furosemide 120 mg PO BID hydralazine 10 mg PO BID hydrocodone-acetaminophen 5-325 mg 1 tab PO Q6-8H PRN insulin glargine (Lantus Solostar U-100 Insulin) 8 units subcut QAM insulin glargine (Lantus Solostar U-100 Insulin) 7 units subcut BEDTIME lidocaine 5% 1 appl topical DAILY PRN montelukast 1 tab PO BEDTIME pantoprazole 40 mg PO DAILY@0630 sertraline 150 mg PO DAILY sevelamer carbonate 1,600 mg PO TID HPI New Prob- Trigger little finger left HPI Details 68-year-old 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 female who presents to the office today with her son for evaluation of bilateral index fingers. She states she has locking, catching, itchiness and intermittent pain in her fingers for about an year. She denies any recent injury, numbness, or tingling and has not had any treatment in the past. She has a history of diabetes and takes insulin. Her sugar level is currently 178 and HbA1c is 6.8%. 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 Hypercalcemia SHELIA (obstructive sleep apnea) Other and unspecified hyperlipidemia Type 2 diabetes mellitus with unspecified complications Surgical History History of hemorrhoidectomy (01/30/23) H/O colonoscopy Hemorrhoids H/O angioplasty History of tubal ligation History of coronary artery bypass graft (~2018) Family History Father Cardiovascular disease Hypertension Mother Cardiovascular disease Hypertension Social History (Updated 04/26/23 @ 09:32 by ELDON Trejo) Household Members: Other Household Members Other:: son Housing: Apartment Housing Other:: senior apartment Are you a primary managed care coordinator to a significant other at home: No Do you presently have visiting nurse or other home services: Yes ([facility]) Alcohol intake: never Patient Tobacco Use Status: Never used Tobacco Advance Directives Date on File: 12/03/20 service: No 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al status: disabled 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 Female Reproductive History Menstrual Age of Menarche: 12 Review of Systems Const All systems reviewed & are unremarkable except as noted in HPI and below Physical Exam Vital Signs: BMI result Body Mass Index 25.1 Extrem Other: Bilateral index fingers: Tender nodule along the A1 yoana with active catching and locking. NVI. Assessment & Plan Assessment & Plan (1) Acquired trigger finger of both index fingers: Code(s): M65.321 - Trigger finger, right index finger; M65.322 - Trigger finger, left index finger Plan We discussed options which include conservative vs operative treatment. Since the patient has been symptomatic for several months and it is impacting their daily life, the decision was made to undergo Trigger release. We discussed risk, benefits and alternatives. Risk including but not limited to infection, stiffness, ongoing trigger or catching. She does understand all this and would like to proceed with left index finger trigger release with Dr. Thomas. She will be booked accordingly. Patient Instructions: Scribed for Staci Leonard PA-C, by Zeeshan Flores, senior medical transcriptionist, on 04/26/2023 at 9:30 AM EST. I, Staci Leonard PA-C, have personally reviewed and agree with the information entered by the scribe. Coding Level of Care Code New Pt Level 4 (36612) Diagnoses Acquired trigger finger of both index fingers M65.321; M65.322
== END 2023-04-26 10:02 | disposition home or self-care (01) ==
PROVIDERS: Visit Provider Physician Assistant
DX: M65.321 Trigger finger, right index finger (principal); M65.322 Trigger finger, left index finger
CPT/HCPCS: 99214

== ENCOUNTER → 2023-04-26 09:05 | Outpatient (BNVA) | payer OTHER, SELFPAY | PROVIDERS: Visit Provider Physician Assistant | DX: M65.321 Trigger finger, right index finger (principal); M65.322 Trigger finger, left index finger | CPT/HCPCS: 99212 ==

== ENCOUNTER 2023-06-28 09:02 | Outpatient (AMB) | payer OTHER, SELFPAY ==
[2023-06-28 09:30] VITALS: BP 144/60; BMI 25.8
--- NOTE | 2023-06-28 09:30 | A.OFFVIS_ITS ---
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 No complaints. 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 End stage chronic kidney disease Edema Atherosclerotic cardiovascular disease SHELIA (obstructive sleep apnea) Hypercalcemia Asthma DJD (degenerative joint disease) Chronic kidney disease Other and unspecified hyperlipidemia Type 2 diabetes mellitus with unspecified complications Essential hypertension Surgical History History of hemorrhoidectomy (01/30/23) H/O colonoscopy Hemorrhoids H/O angioplasty History of tubal ligation History of coronary artery bypass graft (~2018) Family History Father Cardiovascular disease Hypertension Mother Cardiovascular disease Hypertension Social History Household Members: Other Household Members Other:: son Housing: Apartment Housing Other:: senior apartment Are you a primary director of managed care to a significant other at home: No Do you presently have visiting nurse or other home services: Yes ([facility]) Alcohol intake: never Patient Tobacco Use Status: Never used Tobacco Advance Directives Date on File: 12/03/20 Patient : No service: No 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al status: disabled 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 Female Reproductive History Menstrual Age of Menarche: 12 control method: permanent sterilization Total pregnancies: 4 Full term: 4 Number of Living Children: 4 Date of last pap smear: 03/11/20 (+HPV) History of abnormal pap smear: Yes Review of Systems Const All systems reviewed & are unremarkable except as noted in HPI and below Card Reports as per HPI Resp Reports as per HPI GI Reports as per HPI and Reports no additional complaints Reports as per HPI Physical Exam Vital Signs: Last Vital Signs BP 144/60 H 06/28/23 09:30 BMI result Body Mass Index 25.8 Const General: cooperative, healthy appearing and comfortable Chest Chest palpation & inspection: normal inspection of the chest and normal palpation of entire chest wall Breast/axilla inspection: normal inspection of the breasts and normal inspection of the axillae Breast/axilla palpation: normal palpation of the breasts, normal palpation of the axillae and no axillary lymphadenopathy Resp Effort & Inspection: normal respiratory effort Auscultation: clear to auscultation bilaterally Percussion: percussion normal Cardio Palpation: normal PMI Rate: regular rate Rhythm: regular rhythm Heart sounds: no murmurs and no rubs Peripheral pulses: Peripheral pulses 2+ throughout GI Inspection: Yes normal to inspection Palpation (GI): Soft to palpation, nontender, no guarding, not rigid and No hepatosplenomegaly present Percussion: Yes normal to percussion Auscultation: normal bowel sounds Rectal Exam - Female: deferred General: Yes bladder normal to palpation External Female Exam: No lesion Speculum Exam - Vagina: normal appearance of the vagina, normal palpation, normal vaginal discharge and not erythematous Speculum Exam - Cervix: normal appearance of the cervix and normal palpation Bimanual exam- vagina & uterus: normal bimanual exam, normal palpation, uterine size normal, bladder normal to palpation, consistency normal and normal palpation Bimanual Exam- Adnexa, other: normal adnexae, no masses and no tenderness Assessment & Plan Assessment & Plan (1) Well woman exam: Code(s): Z01.419 - Encounter for gynecological examination (general) (routine) without abnormal findings Plan: Co testing done Counseled the patient about the recommended dietary allowance of 1200 mg of Calcium & 800 IU of vitamin D. Mammogram ordered. The patient has an appointment scheduled for her next screening colonoscopy. Will order DEXA scan . The patient was instructed to perform monthly self-breast exams and to schedule a 2 week DEXA scan follow-up appointment and an annual exam in a year; All questions answered and the patient verbalized understanding. Orders: Orders MM screening mammo BI Today Z12.31 - Encounter for screening mammogram for malignant neoplasm of breast XR DEXA axial skeleton Today Z78.0 - Asymptomatic menopausal state Coding Level of Care Code Est Pt Prev Care >65y(73212) Diagnoses Well woman exam Z01.419
== END 2023-06-28 09:57 | disposition home or self-care (01) ==
PROVIDERS: Visit Provider Obstetrics & Gynecology
DX: Z01.419 Encounter for gynecological examination (general) (routine) without abnormal findings (principal)
CPT/HCPCS: 99397

== ENCOUNTER 2023-06-28 09:02 | Outpatient (REF) | payer OTHER, SELFPAY ==
[2023-07-04 05:28] LABS: HPV mRNA E6/E7 rflx Not Detected (Not Detected)
== END 2023-06-28 09:03 | disposition home or self-care (01) ==
LOC: HO.LNP 09:02
PROVIDERS: Visit Provider Obstetrics & Gynecology
DX: Z01.419 Encounter for gynecological examination (general) (routine) without abnormal findings (principal); Z11.51 Encounter for screening for human papillomavirus (HPV)
CPT/HCPCS: 87624; 88142

== ENCOUNTER → 2023-08-16 09:15 | Outpatient (BNV) | payer OTHER, SELFPAY | PROVIDERS: PCP Family Medicine; Visit Provider Radiology Diagnostic Radiology | DX: Z12.31 Encounter for screening mammogram for malignant neoplasm of breast (principal) | CPT/HCPCS: 77063; 77067 ==

== ENCOUNTER 2023-08-16 09:34 | Outpatient (REF) | payer OTHER, SELFPAY ==
--- NOTE | ~2023-08-16 | MM_ITS ---
EXAMINATION: BONE DENSITOMETRY CLINICAL INDICATION: Asymptomatic menopausal state. COMPARISON: Baseline BD dated 08/14/2018. TECHNIQUE: Using a Covarity DXA System (software version: 13.1) manufactured by [employer], dual-energy x-ray absorptiometry was performed of the lumbar spine and left hip. The images are of good technical quality. Summary results are attached. FINDINGS: LEFT FEMUR, NECK: Current: BMD 0.778 g/cm2, Z-score -0.3, T-score -1.9, osteopenia. Baseline: BMD 0.996 g/cm2. LEFT FEMUR, TOTAL: Current: BMD 0.833 g/cm2, Z-score -0.1, T-score -1.4, osteopenia, 26.2% decrease from baseline (<5% change is not significant). Baseline: BMD 1.129 g/cm2. AP SPINE L1-L4: Current: BMD 1.126 g/cm2, Z-score 1.0, T-score -0.4, normal, 11.2% decrease from baseline (<5% change is not significant). Baseline: BMD 1.268 g/cm2. IDENTIFIED RISK FACTORS: Early menopause, secondary osteoporosis, low calcium intake, recurrent falls, kidney disease. HISTORY OF FRACTURE: None listed. MEDICATIONS: None listed. MM/XR DEXA axial skeleton IMPRESSION: 1. DIAGNOSIS: Osteopenia based on the lowest T-score value of -1.9 in the femoral neck applying World Health Organization criteria. 2. 10-YEAR FRACTURE RISK PREDICTION, FRAX: Major osteoporotic fracture (clinical spine, forearm, hip or shoulder) 6.1%. Hip fracture 1.1%. 3. Treatment Recommendations: NOF guidelines recommend consideration for treatment in postmenopausal women and men age 50 and older presenting with the following: -A hip or vertebral (clinical or morphometric) fracture. -T-score less than or equal to -2.5 at the femoral neck or spine after appropriate evaluation to exclude secondary causes. -Low bone mass at the hip or spine and a 10-year fracture probability by FRAX of greater than or equal to 3% for hip fracture or greater than or equal to 20% for major osteoporotic fracture based on the [place] adapted WHO algorithm. 4. Other Recommendations: All treatment decisions require clinical judgment and consideration of individual patient factors, including patient preferences, comorbidities, previous drug use, risk factors not captured in the FRAX model (e.g. frailty, falls, vitamin D deficiency, increased bone turnover, interval significant decline in bone density) and possible under or overestimation of fracture risk by FRAX. Additional medical evaluation for secondary cause of low bone mineral density may be appropriate. FUTURE SCAN RECOMMENDATION: People with diagnosed cases of osteoporosis or at high risk for fracture should have regular bone mineral density tests. For patients eligible for Medicare, routine testing is allowed once every 2 years. The testing frequency can be increased to one year for patients who have rapidly progressing disease, those who are receiving or discontinuing medical therapy to restore bone mass, or have additional risk factors.
--- NOTE | ~2023-08-16 | MM_ITS ---
EXAMINATION: MM SCREENING DIGITAL BREAST TOMOSYNTHESIS, BILATERAL CLINICAL INFORMATION: Screening. Asymptomatic. COMPARISON: Mammography: This study is compared with the most recent previous mammogram from 2015. TECHNIQUE: Digital breast tomosynthesis is performed in both the craniocaudal and mediolateral oblique views along with computer-aided detection (CAD). Synthesized 2D images are generated from the tomosynthesis. FINDINGS: There are scattered areas of fibroglandular density (ACR BI-RADS breast composition Category b). In the upper-outer quadrant of the left breast, there are grouped calcifications which warrant additional mammographic imaging with magnification. Within 1 cm anteroinferior and lateral to the calcifications, there is a subtle focal asymmetry for which additional mammographic and targeted sonographic evaluation is advised. In the right breast, there are no significant masses, abnormal calcifications, or other abnormalities. The breasts have decreased in size since the prior study. 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 There is a central venous dialysis catheter overlying the superior aspect of the right breast. MM/MM tomosynthesis screening BI IMPRESSION: Left breast calcifications and adjacent focal asymmetry of the upper-outer quadrant of the left breast warrant additional mammographic and targeted sonographic evaluation. No mammographic signs of malignancy left breast. ASSESSMENT: BI-RADS BI-RADS 0 - Incomplete: Needs additional Imaging. RECOMMENDATION: 1. Additional views of the left breast 2. Targeted ultrasound if warranted after review of the additional views. 3. Radiology department staff will contact the patient for additional imaging. Additional Imaging required This examination should not preclude the clinical evaluation of a suspicious palpable abnormality. This patient's information was entered into a reminder system with a target due date for their next mammogram.
== END 2023-08-16 09:35 | disposition home or self-care (01) ==
LOC: HO.MAMMO 09:34
PROVIDERS: PCP Family Medicine; Visit Provider Obstetrics & Gynecology
DX: Z12.31 Encounter for screening mammogram for malignant neoplasm of breast (principal); Z13.820 Encounter for screening for osteoporosis; Z78.0 Asymptomatic menopausal state
CPT/HCPCS: 77063; 77067; 77080

== ENCOUNTER 2023-10-09 09:35 | Outpatient (AMB) | payer OTHER, SELFPAY ==
--- NOTE | 2023-10-09 09:40 | MHC.OFFVIS ---
Intake Vital Signs 10/09/23 09:43 Height 5 ft 2 in Weight 138 lb 14.259 oz BMI 25.4 BP 110/62 Intake Visit Reasons: dexa follow up Shove Up Required: Yes Shove Up Language: Rod Bending Machine Operator Name: Pauline COLÓN Information Interpreted: non-clinical & clinical Accompanied by: Self / Same As Patient Allergies No Known Allergies Allergy (Verified 10/09/23 09:44) Post menopausal: Yes HPI HPI Comments History of Present Illness Details The patient is presenting for follow up regarding DEXA scan results. T score @ spine and femoral Neck respectively were=-0.4 /-1.9 and 10 year FRAX risk = 6.1/1.1% for severe osteoporosis and fracture. 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 End stage chronic kidney disease Edema Atherosclerotic cardiovascular disease SHELIA (obstructive sleep apnea) Hypercalcemia Asthma DJD (degenerative joint disease) Chronic kidney disease Other and unspecified hyperlipidemia Type 2 diabetes mellitus with unspecified complications Essential hypertension Surgical History History of hemorrhoidectomy (01/30/23) H/O colonoscopy Hemorrhoids H/O angioplasty History of tubal ligation History of coronary artery bypass graft (~2017) Family History Father Cardiovascular disease Hypertension Mother Cardiovascular disease Hypertension Social History Household Members: Other Household Members Other:: son Housing: Apartment Housing Other:: senior apartment Are you a primary skin care specialist to a significant other at home: No Do you presently have visiting nurse or other home services: Yes ([facility]) Alcohol intake: never Patient Tobacco Use Status: Never used Tobacco Advance Directives Date on File: 12/03/20 service: No 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al status: disabled 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 Female Reproductive History Menstrual Age of Menarche: 12 Review of Systems Const All systems reviewed & are unremarkable except as noted in HPI and below Reports as per HPI and Reports no additional complaints GI Reports no additional complaints Reports no additional complaints Physical Exam Vital Signs: Last Vital Signs BP 110/62 10/09/23 09:43 BMI result Body Mass Index 25.4 Assessment & Plan Assessment & Plan (1) Osteopenia: Code(s): M85.80 - Other specified disorders of bone density and structure, unspecified site Plan: Discussed with the patient the DEXA results and FRAX risk. FRAX risk and T score showed no evidence of osteoporosis. Discussed with the patient all the options for osteoporosis prevention including lifestyle modifications including Ca+D supplements 1200 mg po qd/800 MIU, Weight bearing exercises and proteine supplements. The patient verbalized understanding and agreed plan will repeat DEXA in 2 years. Coding Level of Care Code Est Pt Level 3 (14423) Diagnoses Osteopenia M85.80
[2023-10-09 09:43] VITALS: BP 110/62; BMI 25.4
== END 2023-10-09 09:49 | disposition home or self-care (01) ==
LOC: HO.HWS 09:36
PROVIDERS: PCP Family Medicine; Visit Provider Obstetrics & Gynecology
DX: M85.80 Other specified disorders of bone density and structure, unspecified site (principal)
CPT/HCPCS: 99213

== ENCOUNTER → 2023-10-09 09:35 | Outpatient (BNVA) | payer OTHER, SELFPAY | PROVIDERS: PCP Family Medicine; Visit Provider Obstetrics & Gynecology | DX: M85.80 Other specified disorders of bone density and structure, unspecified site (principal) | CPT/HCPCS: 99212 ==

== ENCOUNTER 2023-10-25 09:57 | Outpatient (REF) | payer OTHER, SELFPAY ==
--- NOTE | ~2023-10-25 | MM_ITS ---
EXAMINATION: MM DIAGNOSTIC DIGITAL BREAST TOMOSYNTHESIS, LEFT US BREAST LIMITED, LEFT MAMMOGRAPHY: CLINICAL INFORMATION: Evaluate calcifications in the upper quadrant of the left breast, and an adjacent anteroinferior and lateral focal asymmetry/circumscribed mass. COMPARISON: Mammography: 08/16/2023, 07/15/2015, and dating back to 2010. TECHNIQUE: Digital breast tomosynthesis is performed in both the craniocaudal and mediolateral oblique views along with computer-aided detection (CAD). Synthesized 2D images are generated from the tomosynthesis. FINDINGS: There are scattered areas of fibroglandular density (ACR BI-RADS breast composition Category b). Grouped calcifications in question in the left breast upper outer quadrant are almost certainly vascular in etiology. Follow-up in 6 months recommended to assess for appropriate evolution. 2 focal asymmetries in the upper outer left breast persist on diagnostic images, and will be evaluated by ultrasound. The more anterior is smaller and has slightly lobulated borders, and the more posterior is larger measuring 7 mm, and has smooth borders. There are dense vascular calcifications present. ULTRASOUND: CLINICAL INFORMATION: Evaluate 2 focal asymmetries left breast upper outer quadrant. COMPARISON: None TECHNIQUE: Targeted sonographic evaluation was performed using a high frequency linear transducer. Attention was given to the upper outer quadrant of the left breast. Selected archived documentation. FINDINGS: LEFT BREAST: In the 2:00 axis of the left breast, 14 cm from the nipple, there is a simple cyst measuring 7 x 4 x 7 mm. More towards the nipple at the 2:00 axis, 8 cm from the nipple is a small simple cyst measuring 5 x 2 x 5 mm. Both of these correlate well with the 2 focal asymmetries in question on mammography. These are benign. No suspicious abnormalities on sonography. MM/MM tomosynthesis added views L IMPRESSION: There are no findings in the left breast suspicious for malignancy. Calcifications in the upper outer quadrant are very likely vascular in nature. Six-month interval follow-up left breast mammography including standard magnification views recommended. Focal asymmetries in the upper outer left breast represent simple cysts. These are benign. No further follow-up. OVERALL ASSESSMENT: Mammography: BI-RADS 3 - Probably benign finding(s) - 6 month follow-up suggested Ultrasound: BI-RADS 3 - Probably benign finding(s) - 6 month follow-up suggested RECOMMENDATION: 6 Month F/U Results were provided to the patient at time of visit by the technologist. This patient's information was entered into a reminder system with a target due date for their next mammogram.
== END 2023-10-25 09:58 | disposition home or self-care (01) ==
LOC: HO.MAMMO 09:57
PROVIDERS: PCP Family Medicine; Visit Provider Obstetrics & Gynecology
DX: N64.89 Other specified disorders of breast (principal)
CPT/HCPCS: 76642; 77061; 77065

== ENCOUNTER → 2023-10-25 11:00 | Outpatient (BNV) | payer OTHER, SELFPAY | PROVIDERS: PCP Family Medicine; Visit Provider Radiology Diagnostic Radiology | DX: R92.1 Mammographic calcification found on diagnostic imaging of breast (principal); R92.322 Mammographic fibroglandular density, left breast; N60.02 Solitary cyst of left breast | CPT/HCPCS: 76642; 77065; G0279 ==

== ENCOUNTER 2023-11-17 09:19 | Outpatient (REF) | payer OTHER, SELFPAY ==
--- NOTE | ~2023-11-17 | XR_ITS ---
STUDY: Lumbar spine, right hip INDICATION: Atraumatic right lower extremity radiculopathy COMPARISON: None TECHNIQUE: 3 view lumbar spine, two-view right hip FINDINGS: Lumbar spine: Minimal anterolisthesis L4 and L5. L5-S1 disc space narrowing. Vertebral bodies are maintained in height. Pedicles within normal limits. Mild asymmetric left superior SI sclerosis. Visualized hip joints appear intact. Pelvic phleboliths and vascular calcifications. Right hip: No fracture or dislocation. No joint space narrowing. Vascular calcifications and phleboliths. XR/XR hip RT min 2V IMPRESSION: No acute bony pathology lumbar spine and right hip. L5-S1 disc space narrowing and asymmetric sclerosis left SI joint.
--- NOTE | ~2023-11-17 | XR_ITS ---
STUDY: Lumbar spine, right hip INDICATION: Atraumatic right lower extremity radiculopathy COMPARISON: None TECHNIQUE: 3 view lumbar spine, two-view right hip FINDINGS: Lumbar spine: Minimal anterolisthesis L4 and L5. L5-S1 disc space narrowing. Vertebral bodies are maintained in height. Pedicles within normal limits. Mild asymmetric left superior SI sclerosis. Visualized hip joints appear intact. Pelvic phleboliths and vascular calcifications. Right hip: No fracture or dislocation. No joint space narrowing. Vascular calcifications and phleboliths. XR/XR lumbar spine 2-3V IMPRESSION: No acute bony pathology lumbar spine and right hip. L5-S1 disc space narrowing and asymmetric sclerosis left SI joint.
== END 2023-11-17 09:20 | disposition home or self-care (01) ==
LOC: HO.HHCX 09:19
PROVIDERS: Visit Provider Emergency Medicine
DX: M54.16 Radiculopathy, lumbar region (principal)
CPT/HCPCS: 72100; 73502

== ENCOUNTER → 2024-01-01 09:08 | Outpatient (BNVA) | payer OTHER, SELFPAY | PROVIDERS: PCP Family Medicine; Visit Provider Internal Medicine Hypertension Specialist ==

== ENCOUNTER 2024-03-04 08:42 | Outpatient (AMB) | payer OTHER, SELFPAY ==
[2024-03-04 08:44] VITALS: BP 142/64; PULSE 61; BMI 24.4
--- NOTE | 2024-03-04 08:44 | MHC.OFFVIS ---
Vital Signs 03/04/24 08:44 Height 5 ft 2 in Weight 133 lb 2.547 oz BMI 24.4 BP 142/64 H Blood Pressure Location Rt brachial Position Sitting Pulse 61 Pulse Source Monitor Intake Visit Reasons: overdue followup Collar Padder Blindstitch Required: Yes Collar Padder Blindstitch Language: Imaging Nurse Name: karey villalba [id number] Public Service Representative: Public Service Representative Present Allergies No Known Allergies Allergy (Verified 03/04/24 08:47) Medication List - Last Reconciled 03/04/24 by KEISHA Modi acetaminophen 1,000 mg PO Q8H PRN alirocumab (Praluent Pen) 75 mg subcut Q2W amlodipine 10 mg PO DAILY 90 days ascorbic acid (vitamin C) (Vitamin C) 1 tab PO BID aspirin 81 mg PO DAILY 90 days atorvastatin 80 mg PO BEDTIME benzonatate 200 mg PO BID PRN budesonide-formoterol 80-4.5 mcg/actuation (Symbicort) 2 puffs inhalation BID carvedilol 6.25 mg PO BID 90 days cetirizine 5 mg PO DAILY cholecalciferol (vitamin D3) 25 mcg PO QAM cyanocobalamin (vitamin B-12) 1,000 mcg IM QMONTH ezetimibe 10 mg PO QAM ferrous sulfate 325 mg PO BIDWM furosemide 120 mg (3 x 40 mg) PO BID hydralazine 10 mg PO BID hydrocodone-acetaminophen 5-325 mg 1 tab PO Q6-8H PRN insulin glargine (Lantus Solostar U-100 Insulin) 8 units subcut QAM lidocaine 5% 1 appl topical DAILY PRN montelukast 1 tab PO BEDTIME pantoprazole 40 mg PO DAILY@0630 sertraline 150 mg PO DAILY sevelamer carbonate 1,600 mg PO TID HPI HPI overdue followup: Details: Joslyn is a 69-year-old female with past medical history of hypertension, hyperlipidemia, diabetes, sleep apnea, CAD, coronary artery bypass grafting 2018, mild aortic stenosis, end-stage renal disease who presents for follow-up. Her last prior visit to our office was 05/02/22. Today she reports that she has been doing well since her last visit here. She attends dialysis 3 times weekly and goes to a day program where she does light chair exercises on the other days. She denies having chest discomfort at rest or with activity. No shortness of breath, PND, orthopnea or edema. No lightheadedness, presyncope, syncope, falls. She is mostly sedentary. She takes her meds as directed. 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 End stage chronic kidney disease Edema Atherosclerotic cardiovascular disease SHELIA (obstructive sleep apnea) Hypercalcemia Asthma DJD (degenerative joint disease) Chronic kidney disease Other and unspecified hyperlipidemia Type 2 diabetes mellitus with unspecified complications Essential hypertension Surgical History History of hemorrhoidectomy (01/30/23) H/O colonoscopy Hemorrhoids H/O angioplasty History of tubal ligation History of coronary artery bypass graft (~2017) Family History Father Cardiovascular disease Hypertension Mother Cardiovascular disease Hypertension Social History Household Members: Other Household Members Other:: son Housing: Apartment Housing Other:: senior apartment Are you a primary career portals teacher to a significant other at home: No Do you presently have visiting nurse or other home services: Yes ([facility]) Alcohol intake: never Patient Tobacco Use Status: Never used Tobacco Advance Directives Date on File: 12/03/20 service: No 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al status: disabled 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 Female Reproductive History Menstrual Age of Menarche: 12 Review of Systems Const All systems reviewed & are unremarkable except as noted in HPI and below ENT Denies dizziness Card Denies chest pain, Denies chest pain at rest, Denies chest pain with activity, Denies rapid heart rate, Denies pedal edema, Denies edema, Denies leg edema, Denies lightheadedness, Denies palpitations, Denies dyspnea, Denies dyspnea on exertion and Denies orthopnea Resp Denies cough, Denies dyspnea and Denies dyspnea on exertion GI Denies hematochezia and Denies change in stool character Musc Denies abnormal gait, Denies limited range of motion, Denies muscle cramps, Denies muscle weakness, Denies numbness, Denies radiating pain into limb, Denies stiffness and Denies tingling Neuro Denies abnormal gait, Denies dizziness, Denies numbness and Denies tingling Endo Denies palpitations Physical Exam Vital Signs: Last Vital Signs Pulse 61 03/04/24 08:44 BP 142/64 H 03/04/24 08:44 BMI result Body Mass Index 24.4 Const General: cooperative, healthy appearing, comfortable and no acute distress Orientation/consciousness: patient oriented x3 Neck Neck: Yes normal visual inspection Resp Effort & Inspection: normal respiratory effort Auscultation: clear to auscultation bilaterally, no rales, no rhonchi and no wheezes Cardio Jugular venous distension: no JVD Rate: regular rate Rhythm: regular rhythm Heart sounds: S2 normal heart sound present, Murmur heart sound present (2/6 sytolic) and no rubs Neuro General: patient oriented x3 Extrem General: Yes normal to inspection and No no pedal edema Psych Appearance: grossly normal Mental Status: mental status grossly normal Speech and movement: Normal speech and movement present Office Procedures EKG Details: Today, read by me, normal sinus rhythm, septal Q-wave, incomplete right bundle branch block, rate 61, QTC 477 milliseconds [id number], Complete Assessment & Plan Assessment & Plan (1) Atherosclerotic cardiovascular disease: Comment: w/CABG 2018 Code(s): I25.10 - Atherosclerotic heart disease of [place] coronary artery without angina pectoris Category: Medical Plan: History of CAD, NSTEMI 2018. She was found to have multivessel disease and underwent coronary artery bypass grafting. In the months following surgery she did have anterior chest wall soreness. Last echocardiogram 09/13/2021 showed normal EF, impaired relaxation, regional wall motion abnormality inferiorly, mild aortic stenosis. Today she reports no anginal sounding symptoms. She is mostly sedentary. She attends dialysis 3 times weekly. EKG today showing normal sinus rhythm, incomplete right bundle branch block, septal Q-wave, rate 61, overall no change from prior. Continue med management for stable CAD including aspirin indefinitely. Continue high-dose atorvastatin, Zetia with ideal LDL goal less than 70. Continue carvedilol, amlodipine. Blood pressure today initially 142/64, recheck done by me 120/60. No med changes made at this time. No recent lipid profile in our system. Will reach out to PCP office for these labs. Cardiology follow-up 6 months, sooner if needed. (2) Status post coronary artery bypass graft: Comment: Two thousand eighteen, grewal to LAD, SVG to ramus and right PDA Code(s): Z95.1 - Presence of aortocoronary bypass graft Category: Surgical Plan: As above (3) ESRD (end stage renal disease) on dialysis: Comment: PATIENT WITH CHRONIC END-STAGE RENAL FAILURE, ON DIALYSIS PROGRAM AND DOING WELL Code(s): N18.6 - End stage renal disease; Z99.2 - Dependence on renal dialysis Category: Medical Plan: As above. Follows with Nephrology. (4) SHELIA (obstructive sleep apnea): Comment: no CPAP Code(s): G47.33 - Obstructive sleep apnea (adult) (pediatric) Category: Medical Plan: Untreated. (5) Essential hypertension: Code(s): I10 - Essential (primary) hypertension Category: Medical (6) Other and unspecified hyperlipidemia: Code(s): E78.5 - Hyperlipidemia, unspecified Category: Medical (7) Aortic stenosis: Code(s): I35.0 - Nonrheumatic aortic (valve) stenosis Category: Medical Plan: Last echo shows mild aortic stenosis. There is an audible systolic murmur noted on examination. She has no cardinal signs of severe . Will update echocardiogram and plan to call her with results. Plan Time spent on chart review, documentation, interview and assessment Orders: Orders CA echo transthoracic complete Today I35.0 - Nonrheumatic aortic (valve) stenosis Coding Level of Care Code Est Pt Level 4 (62491) Diagnoses Atherosclerotic cardiovascular disease I25.10 Status post coronary artery bypass graft Z95.1 ESRD (end stage renal disease) on dialysis N18.6; Z99.2 SHELIA (obstructive sleep apnea) G47.33 Essential hypertension I10 Other and unspecified hyperlipidemia E78.5 Aortic stenosis I35.0 CPT Codes EKG - CPT: 41571-[id number], Complete ([id number]) Time Spent (min) 30
== END 2024-03-04 09:13 | disposition home or self-care (01) ==
PROVIDERS: PCP Family Medicine; Visit Provider Nurse Practitioner Family
DX: I25.10 Atherosclerotic heart disease of native coronary artery without angina pectoris (principal); Z95.1 Presence of aortocoronary bypass graft; N18.6 End stage renal disease; Z99.2 Dependence on renal dialysis; G47.33 Obstructive sleep apnea (adult) (pediatric); I12.0 Hypertensive chronic kidney disease with stage 5 chronic kidney disease or end stage renal disease; E78.5 Hyperlipidemia, unspecified; I35.0 Nonrheumatic aortic (valve) stenosis
CPT/HCPCS: 93010; 99214

== ENCOUNTER → 2024-03-04 08:42 | Outpatient (BNVA) | payer OTHER, SELFPAY | PROVIDERS: PCP Family Medicine; Visit Provider Nurse Practitioner Family | DX: I12.0 Hypertensive chronic kidney disease with stage 5 chronic kidney disease or end stage renal disease (principal); I25.10 Atherosclerotic heart disease of native coronary artery without angina pectoris; I35.0 Nonrheumatic aortic (valve) stenosis; N18.6 End stage renal disease; E78.5 Hyperlipidemia, unspecified; G47.33 Obstructive sleep apnea (adult) (pediatric); Z99.2 Dependence on renal dialysis; Z95.1 Presence of aortocoronary bypass graft | CPT/HCPCS: 93005; 99212 ==

== ENCOUNTER → 2024-04-03 08:52 | Outpatient (REF) | payer OTHER, SELFPAY ==
[2024-04-03 10:02] LABS: Alanine Aminotransferase 8 U/L (0-31); Alkaline Phosphatase 123 U/L (39-117); Aspartate Amino Transferase 11 U/L (5-31); Bilirubin Direct 0.2 mg/dL (0.0-0.5); Bilirubin Total 0.4 mg/dL (0.0-1.0); Cholesterol 113 mg/dL (<200); HDL Cholesterol 50 mg/dL (>40); LDL Cholesterol Calculated 43 mg/dL (<100); Total Protein 7.2 g/dL (6.5-8.0); Triglycerides 102 mg/dL (<150)
[2024-04-03 10:17] LABS: Reflex LDLD? No
[2024-04-03 10:18] LABS: TSH reflex Free T4 1.33 uIU/mL (0.32-4.0)
[2024-04-03 10:26] LABS: Folate 4.8 ng/mL (> or = 4.0); Vitamin B12 235 pg/mL (200-900)
== END ==
LOC: HO.CARD 08:52
PROVIDERS: PCP Family Medicine; Visit Provider Nurse Practitioner Family
DX: I35.0 Nonrheumatic aortic (valve) stenosis (principal); I10 Essential (primary) hypertension; E78.5 Hyperlipidemia, unspecified
CPT/HCPCS: 36415; 80061; 80076; 82607; 82746; 84443

== ENCOUNTER 2024-06-03 14:31 | Outpatient (REF) | payer OTHER, SELFPAY ==
--- NOTE | ~2024-06-03 | MM_ITS ---
EXAMINATION: MM DIAGNOSTIC DIGITAL MAMMOGRAPHY, LEFT CLINICAL INFORMATION: Diagnostic exam; six-month follow-up for probably benign left breast calcifications upper outer quadrant. COMPARISON: Mammography: 10/25/2023, 08/16/2023 (BI-RADS 0). TECHNIQUE: Digital mammography is performed in the following views: 2-D spot magnification left CC and left ML x2 views. Computer-aided diagnosis was used for this study. FINDINGS: There are scattered areas of fibroglandular density (ACR BI-RADS breast composition Category b). Grouped calcifications in question in the left breast upper outer quadrant are stable, without change in number or morphology. These remain probably benign and six-month additional follow-up recommended. There are no new suspicious findings left breast. There are vascular calcifications again noted. MM/MM diagnostic mammo unilat LT IMPRESSION: -There have been no significant changes from the prior examinations. No left breast findings suspicious for malignancy. -Stable and unchanged probably benign calcifications left breast upper outer quadrant. Six-month interval follow-up magnification views left breast recommended to establish a one-year stability. ASSESSMENT: BI-RADS BI-RADS 3 - Probably benign finding(s) - 6 month follow-up suggested RECOMMENDATION: 6 Month F/U This patient's information was entered into a reminder system with a target due date for their next mammogram. Electronically signed by: Manuelito Reid MD 06/03/2024 03:22 PM [facility]
== END 2024-06-03 14:32 | disposition home or self-care (01) ==
LOC: HO.MAMMO 14:31
PROVIDERS: PCP Family Medicine; Visit Provider Family Medicine
DX: R92.1 Mammographic calcification found on diagnostic imaging of breast (principal)
CPT/HCPCS: 77062; 77065

== ENCOUNTER → 2024-06-03 15:00 | Outpatient (BNV) | payer OTHER, SELFPAY | PROVIDERS: PCP Family Medicine; Visit Provider Radiology Diagnostic Radiology | DX: R92.1 Mammographic calcification found on diagnostic imaging of breast (principal) | CPT/HCPCS: 77065 ==

== ENCOUNTER 2024-08-12 12:49 | Emergency (ER) | payer OTHER, SELFPAY ==
[2024-08-12] VITALS (7 sets, daily range): BP systolic 140–188; BP diastolic 54–68; PULSE 66–70; RESP 12–22; TEMP 36.5–36.9; O2SAT 97–100; BMI 24.0
--- NOTE | 2024-08-12 | ECG_ITS ---
Test Reason : chest tightness Blood Pressure : */* mmHG Vent. Rate : 68 BPM Atrial Rate : 68 BPM P-R Int : 162 ms QRS Dur : 100 ms QT Int : 432 ms P-R-T Axes : 5 10 40 degrees QTcB Int : 459 ms Normal sinus rhythm Incomplete right bundle branch block Septal infarct (cited on or before 28-Nov-2017) Abnormal ECG When compared with ECG of 22-Feb-2023 22:16, No significant changes seen Referred By: Generic ED Physician Electronically Signed By: Juan Carlos Morel
--- NOTE | ~2024-08-12 | XR_ITS ---
EXAMINATION: XR CHEST CLINICAL INFORMATION: chest tightness COMPARISON: X-ray dated February 07, 2023. TECHNIQUE: 2 views of the chest were obtained. FINDINGS: Pulmonary reticular pattern. No consolidation, pleural effusion or pneumothorax. Sternal wires. Cardiomediastinal silhouette appears normal in size. Vascular clips in the mediastinum. Calcified plaque in the thoracic aorta. Multilevel thoracolumbar spondylosis. S-shaped curvature of the thoracic spine. Osteopenia versus osteoporosis. XR/XR chest 2V IMPRESSION: Chronic interstitial lung disease. No acute airspace disease. Electronically signed by: Francisco Harris MD 08/12/2024 01:54 PM EST
--- NOTE | 2024-08-12 13:18 | ED.CHESTPAIN ---
HPI - Chest Pain General Chief Complaint: Chest Pain Stated Complaint: CHEST TIGHTNESS FROM [facility]ULT DAY [facility]ARE PER EMS Time Seen by Provider: 08/12/24 13:08 Source: patient, EMS, RN notes reviewed and old records reviewed Mode of arrival: EMS History of Present Illness ED Provider: Danisha Guerrero PA-C HPI narrative: 69-year-old Albanian-speaking female with a past medical history asthma, CKD on HD (T/T/S), HLD, HTN, NSTEMI, CABG, s/p cardiac catheterization on 08/01/2024 with PCI to distal LMCA and proximal LCx, presenting to the ED via EMS complaining of chest tightness and nausea since this morning. Denies radiation of pain, SOB, lightheadedness/dizziness, worsening pedal edema. States last received dialysis on Monday. Was given 324 ASA by EMS. States pain is still present. Related Data Home Medications ?Medication ?Instructions ?Recorded ?Confirmed ferrous sulfate 325 mg (65 mg 325 mg PO BIDWM 06/10/20 03/04/24 iron) tablet hydralazine 10 mg tablet 10 mg PO BID 06/10/20 04/26/23 pantoprazole 40 mg tablet,delayed 40 mg PO DAILY@0630 06/10/20 03/04/24 release sertraline 100 mg tablet 150 mg PO DAILY 06/10/20 03/04/24 ascorbic acid (vitamin C) 500 mg 1 tab PO BID 12/03/20 03/04/24 tablet (Vitamin C) montelukast 10 mg tablet 1 tab PO BEDTIME 12/03/20 04/26/23 cetirizine 5 mg tablet 5 mg PO DAILY 10/27/21 03/04/24 insulin glargine 100 unit/mL (3 8 unit subcut QAM 01/25/23 04/26/23 mL) subcutaneous pen (Lantus Solostar U-100 Insulin) sevelamer carbonate 800 mg tablet 1,600 mg PO TID 01/25/23 03/04/24 acetaminophen 500 mg tablet 1,000 mg PO Q8H PRN Pain 02/08/23 03/04/24 benzonatate 200 mg capsule 200 mg PO BID PRN cough 02/08/23 03/04/24 budesonide-formoterol HFA 80 2 puff inhalation BID 02/08/23 03/04/24 mcg-4.5 mcg/actuation aerosol inhaler (Symbicort) cyanocobalamin (vitamin B-12) 1,000 mcg IM QMONTH 02/08/23 03/04/24 1,000 mcg/mL injection solution lidocaine 5 % topical ointment 1 appl topical DAILY PRN Pain 02/08/23 04/26/23 cholecalciferol (vitamin D3) 25 25 mcg PO QAM 01/01/24 03/04/24 mcg (1,000 unit) tablet Previous Rx's ?Medication ?Instructions ?Recorded amlodipine 10 mg tablet 10 mg PO DAILY 90 days #90 tabs 12/06/22 hydrocodone 5 mg-acetaminophen 325 1 tab PO Q6-8H PRN pain #30 tabs 01/30/23 mg tablet furosemide 40 mg tablet 120 mg (3 x 40 mg) PO BID #240 tabs 07/26/23 atorvastatin 80 mg tablet 80 mg PO BEDTIME #90 tabs 08/17/23 aspirin 81 mg tablet,delayed 81 mg PO DAILY 90 days #90 tabs 11/16/23 release ezetimibe 10 mg tablet 10 mg PO QAM #90 tabs 03/21/24 carvedilol 6.25 mg tablet 6.25 mg PO BID 90 days #180 tabs 04/08/24 alirocumab 75 mg/mL subcutaneous 75 mg subcut Q2W #2 mL 06/04/24 pen injector (Praluent Pen) Allergies Allergy/AdvReac Type Severity Reaction Status Date / Time No Known Allergies Allergy Verified 08/12/24 13:05 Review of Systems Review of Systems: Yes all other systems are reviewed and are negative Constitutional: Constitutional: Reports as per [facility] Past Medical History Attestation statement: The following information was validated with the patient. 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 End stage chronic kidney disease Edema Atherosclerotic cardiovascular disease SHELIA (obstructive sleep apnea) Hypercalcemia Asthma DJD (degenerative joint disease) Chronic kidney disease Other and unspecified hyperlipidemia Type 2 diabetes mellitus with unspecified complications Essential hypertension Surgical History History of hemorrhoidectomy (07/03/23) H/O colonoscopy Hemorrhoids H/O angioplasty History of tubal ligation History of coronary artery bypass graft (~2018) Family History Family History Father Cardiovascular disease Hypertension Mother Cardiovascular disease Hypertension Social History Social History Household Members: Other Household Members Other:: son Housing: Apartment Housing Other:: senior apartment Are you a primary hearing healthcare practitioner to a significant other at home: No Do you presently have visiting nurse or other home services: Yes ([facility]) Alcohol intake: never Patient Tobacco Use Status: Never used Tobacco Smoked in Last 30 Days: No Use of substances other than those prescribed or required for medical reasons: No Advance Directives: Yes Advance Directives on File: Yes Advance Directives Date on File: 12/03/20 Do you have a plan to hurt others: No Plan service: No 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al status: disabled 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 Physical Exam Vital Signs: Vital Signs: Last Vital Signs Temp 98.2 F 08/12/24 16:29 Pulse 69 08/12/24 16:29 Resp 22 H 08/12/24 16:29 BP 171/67 H 08/12/24 16:29 Pulse Ox 100 08/12/24 16:29 O2 Del Method Room Air 08/12/24 16:29 BMI result Body Mass Index 24.0 Const: General: cooperative, healthy appearing and no acute distress Orientation/consciousness: patient oriented x3 Limitations: no limitations HEENT: Head: Yes normal to inspection and Yes atraumatic Ears: hearing grossly normal bilaterally General nose exam: Normal external nose present Face and sinus: Yes normal facial exam Eyes: General: appearance normal, both eyes and all related structures EOM: EOMs intact bilaterally Neck: Neck: Yes normal visual inspection and Yes no meningeal signs Resp: Effort & Inspection: normal respiratory effort and no respiratory distress Auscultation: clear to auscultation bilaterally, no crackles and no wheezes Cardio: Rate: regular rate Heart sounds: S1 normal heart sound present and S2 normal heart sound present GI: Inspection: Yes normal to inspection Palpation (GI): Soft to palpation, nontender, no guarding and not rigid : General: Yes no CVA tenderness Back/Spine/Pelvis: Back: no CVA tenderness Skin: Rashes: no rashes Wounds: no wounds Neuro: General: patient oriented x3, tone normal and no meningeal signs Cranial nerves: Yes CN's II-XII intact bilaterally Gait exam (Neuro): Normal gait present Extrem: Other: + bilateral LE pitting edema General: Yes normal to inspection Course Course Course Narrative: -1425--no leukocytosis. H&H at patient's baseline. Chronic CKD. - Troponin 16.3 > will obtain 3 hour repeat. BNP 824 XR chest 2V IMPRESSION: Chronic interstitial lung disease. No acute airspace disease > will consult cardiology, Dr. Morel with patient's recent cardiac history/catheterization > recommends transfer to [facility] for eval. He will reach out to [facility] electroslag welding machine operator who performed recent procedure, Dr. De Guzman > [facility] transfer line called >1600--on re-evaluation with medical case worker patient states pain has improved, still describes tightness. -1635--spoke with cardiology at [facility], Dr. Carlos who accepted transfer. Awaiting on callback for bed placement Medications Administered Discontinued Medications Generic Name Dose Route Start Last Admin Trade Name Freq PRN Reason Stop Dose Admin Morphine Sulfate 2 mg 08/12/24 13:27 08/12/24 13:53 Morphine Sulfate 2 Mg/Ml Cartridge IVPUSH 08/12/24 13:28 2 mg ONCE ONE Administration Protocol Medical Decision Making Medical Decision Making [facility] Narrative: 69-year-old Albanian-speaking female with a past medical history asthma, CKD on HD (T/T/S), HLD, HTN, NSTEMI, CABG, s/p cardiac catheterization on 08/01/2024 with PCI to distal LMCA and proximal LCx, presenting to the ED via EMS complaining of chest tightness and nausea since this morning. On exam vital signs stable, NAD, nontoxic appearing, lungs CTA, bilateral LE pitting edema, abdomen soft/nontender. Concern for ACS. Concern for anxiety vs viral illness vs pneumonia. Lower suspicion for dissection, PE/DVT Plan: EKG, labs, CXR, viral testing, re-evaluate Please refer to course for remaining clinical decision making, interpretation of labs/imaging results, and discussions with consultants and/or family members. Differential Diagnosis Differential Diagnoses: The differential diagnosis associated with the presentation includes As above Admission/Observation Consideration of admission/observation: Escalation of care including admission/observation considered Consult Healthcare Provider Management of the patient was discussed with: Spanish Instructor Lab Data [facility] Lab Attestation statement: I reviewed the patient's lab results. 08/12/24 13:23 08/12/24 13:23 Labs: Lab Results 08/12/24 08/12/24 Range/Units 13:23 15:54 WBC 7.1 (4.8-10.8) X10*3/uL RBC 3.72 L (4.20-5.50) X10*6/uL Hgb 10.8 L (12.0-16.0) g/dl Hct 33.1 L (37.0-47.0) % MCV 89.0 (80.0-98.0) fL MCH 29.0 (27.0-33.0) pg MCHC 32.6 (31.0-35.0) g/dl RDW 15.9 (11.0-16.0) % Plt Count 215 (160-400) X10*3/uL MPV 10.0 (9.4-12.3) fL Immature Gran % (Auto) 0.3 (0.0-0.4) % Neut % (Auto) 72.0 (45-73) % Lymph % (Auto) 19.4 L (20-40) % [place] % (Auto) 6.2 (2-11) % Eos % (Auto) 1.4 (0-4) % Baso % (Auto) 0.7 (0-2) % Lymph # (Auto) 1.4 (1.2-4.9) X10*3/uL [place] # (Auto) 0.4 (0.1-1.2) X10*3/uL Eos # (Auto) 0.1 (0.0-0.4) X10*3/uL Baso # (Auto) 0.1 (0.0-0.2) X10*3/uL Abs Immat Gran (auto) 0.02 (0.00-0.03) X10*3/uL Absolute Neuts (auto) 5.1 (2.0-8.3) x10*3/uL Absolute Nucleated RBC 0.000 (0.0-0.012) X10*3/uL Nucleated RBC % (auto) 0.0 (0.0-0.2) /100WBC PT 11.6 (10.9-12.4) SEC INR 1.0 (0.9-1.1) Sodium 142 (135-145) mmol/L Potassium 3.7 (3.3-5.1) mmol/L Chloride 96 (96-108) mmol/L Carbon Dioxide 28 (22-29) mmol/L Anion Gap 22 H (12-20) BUN 33 H (9-16) mg/dL Creatinine 7.32 H* (0.5-1.4) mg/dL Estim Creat Clear Calc 5.5 Estimated GFR 5 Random Glucose 98 (60-115) mg/dL Calcium 9.6 D (8.4-10.2) mg/dL Magnesium 2.4 (1.6-2.6) mg/dL Total Bilirubin 0.4 (0.0-1.0) mg/dL AST 14 (5-31) U/L ALT < 6 (0-31) U/L Alkaline Phosphatase 127 H (39-117) U/L Troponin I High Sens 16.3 D (<3.5-17.0) ng/L B-Natriuretic Peptide 824 H (<100) pg/mL Total Protein 7.7 (6.5-8.0) g/dL Albumin 4.1 (3.5-5.0) g/dL Influenza Type A (PCR) NEGATIVE (Negative) Influenza Type B (PCR) NEGATIVE (Negative) RSV RNA Qual (PCR) NEGATIVE (Negative) SARS-CoV-2 RNA (RT-PCR) NEGATIVE (Negative) Independent Interpretation I performed an independent interpretation of an: EKG (My interpretation EKG normal sinus rhythm rate of 68. NH interval 162. Nonspecific T-wave abnormality no longer present in inferior leads. No STEMI ) and Plain X-Ray Radiology Impression Discussion of test interpretation with radiology: I have reviewed the radiologist's reading. Independent Historian Clinical information obtained from an independent historian. History obtained from or confirmed by: EMS External Record Review External record reviewed: Inpatient record, Office record, Outpatient record, Prior outpatient labs, Prior outpatient radiology, Primary care record and Outside ED record Tests considered The following testing was considered but not selected: As above Prescription Management I considered prescription management with: Other Chronic Conditions Patient?s care impacted by: Other Social Determinants Patient?s care significantly limited by Social Determinants of Health including: Other Social Determinant of Health Critical Care Time Critical Care Time Critical Care Time: Yes Total Critical Care Time: 45 Attestation: I have personally provided critical care time exclusive of time spent on separately billable procedures. Time includes review of lab data, radiology results, discussion with consultants, and monitoring for potential decompensation. Intervention performed as documented. Discharge Plan Discharge Clinical Impression: Chest tightness [facility] Details: [facility] accepting physician Dr. Carlos Prescriptions: No Action amlodipine 10 mg tablet 10 mg PO DAILY 90 Days Qty: 90 3RF furosemide 40 mg tablet 120 mg PO BID Qty: 240 2RF atorvastatin 80 mg tablet 80 mg PO BEDTIME Qty: 90 3RF aspirin 81 mg tablet,delayed release (DR/EC) 81 mg PO DAILY 90 Days Qty: 90 0RF Rx Instructions: Need to schedule appt for future refills. ezetimibe 10 mg tablet 10 mg PO QAM Qty: 90 3RF carvedilol 6.25 mg tablet 6.25 mg PO BID 90 Days Qty: 180 3RF Praluent Pen 75 mg/mL pen injector 75 mg subcut Q2W Qty: 2 2RF ascorbic acid (vitamin C) [Vitamin C] 500 mg tablet 1 tab PO BID montelukast 10 mg tablet 1 tab PO BEDTIME budesonide-formoterol [Symbicort] 80-4.5 mcg/actuation HFA aerosol inhaler 2 puff inhalation BID acetaminophen 500 mg tablet 1,000 mg PO Q8H PRN (Reason: Pain) lidocaine 5 % Ointment 1 appl TOPICAL DAILY PRN (Reason: Pain) cyanocobalamin (vitamin B-12) 1,000 mcg/mL solution 1,000 mcg IM QMONTH benzonatate 200 mg capsule 200 mg PO BID PRN (Reason: cough) sevelamer carbonate 800 mg tablet 1,600 mg PO TID insulin glargine [Lantus Solostar U-100 Insulin] 100 unit/mL (3 mL) insulin pen 8 unit subcut QAM hydrocodone-acetaminophen 5-325 mg tablet 1 tab PO Q6-8H PRN (Reason: pain) Qty: 30 0RF Rx Instructions: Partial Fill upon patient request. hydralazine 10 mg tablet 10 mg PO BID ferrous sulfate 325 mg (65 mg iron) tablet 325 mg PO BIDWM pantoprazole 40 mg tablet,delayed release (DR/EC) 40 mg PO DAILY@0630 sertraline 100 mg tablet 150 mg PO DAILY cetirizine 5 mg tablet 5 mg PO DAILY cholecalciferol (vitamin D3) 25 mcg (1,000 unit) tablet 25 mcg PO QAM Print Language: Albanian
[2024-08-12 13:28] LABS: MANUAL DIFF FLAG NO
--- NOTE | 2024-08-12 13:30 | PC.NURSE ---
inderjita from adult day care c/o nonradiating chest tightness w/ associated nausea x noon. denies any chest pain/sob/dizziness/lightheadedness/sob. 324mg ASA w/o relief via EMS. dialysis pt - compliant on monday//monday. upon ED arrival - a&ox4. vss and up to date. nsr on the monitor tech. labs obtained/sent to lab. ekg performed by tech. 20gIV in the right AC placed by EMS [employer] - access remains patent/intact. pt on RA w/o difficulty. able to speak in full/clear sentences w/o difficulty. no sob/wob noted. respirations even/unlabored. plan of care ongoing. call mendiola placed within reach.
[2024-08-12 13:31] LABS: Basophils Absolute Auto 0.1 X10*3/uL (0.0-0.2); Basophils Percent Auto 0.7 % (0-2); Eosinophils Absolute Auto 0.1 X10*3/uL (0.0-0.4); Eosinophils Percent Auto 1.4 % (0-4); Hematocrit 33.1 % (37.0-47.0); Hemoglobin 10.8 g/dl (12.0-16.0); Imm Gran Abs Auto 0.02 X10*3/uL (0.00-0.03); Imm Gran Pct Auto 0.3 % (0.0-0.4); Lymphocytes Absolute Auto 1.4 X10*3/uL (1.2-4.9); Lymphocytes Percent Auto 19.4 % (20-40); Mean Corpuscular HGB Conc 32.6 g/dl (31.0-35.0); Monocytes Absolute Auto 0.4 X10*3/uL (0.1-1.2); Monocytes Percent Auto 6.2 % (2-11); Neutrophils Absolute Auto 5.1 x10*3/uL (2.0-8.3); Platelet Count 215 X10*3/uL (160-400); Red Blood Count 3.72 X10*6/uL (4.20-5.50); Red Cell Distribution Width 15.9 % (11.0-16.0); White Blood Count 7.1 X10*3/uL (4.8-10.8)
[2024-08-12] MEDS: Morphine Sulfate 2 MG/ML CARTRIDGE IVPUSH (13:53)
[2024-08-12 13:56] LABS: B Type Natriuretic Peptide 824 pg/mL (<100)
[2024-08-12 14:00] LABS: Troponin-I High Sensitivity 16.3 ng/L (<3.5-17.0)
[2024-08-12 14:02] LABS: Alanine Aminotransferase < 6 U/L (0-31); Albumin Level 4.1 g/dL (3.5-5.0); Alkaline Phosphatase 127 U/L (39-117); Anion Gap 22 (12-20); Aspartate Amino Transferase 14 U/L (5-31); Bilirubin Total 0.4 mg/dL (0.0-1.0); Blood Urea Nitrogen 33 mg/dL (9-16); Calcium 9.6 mg/dL (8.4-10.2); Carbon Dioxide 28 mmol/L (22-29); Chloride 96 mmol/L (96-108); Creatinine Clr Calc Pharmacy 5.5; Estimated Glomerular Filt Rate 5; Glucose Random 98 mg/dL (60-115); Magnesium 2.4 mg/dL (1.6-2.6); Potassium 3.7 mmol/L (3.3-5.1); Sodium 142 mmol/L (135-145); Total Protein 7.7 g/dL (6.5-8.0)
[2024-08-12 14:51] LABS: Influenza A PCR NEGATIVE (Negative); Influenza B PCR NEGATIVE (Negative); Resp Syncy Virus RNA Qual PCR NEGATIVE (Negative); SARS COV2 PCR INHOUSE NEGATIVE (Negative)
--- NOTE | 2024-08-12 15:37 | PC.NURSE ---
vss and up to date. nsr on the quality assurance monitor chassis. pt reports pain level has decreased s/p medication administration. pt remains on RA w/o difficulty - no sob/wob noted. respirations even/unlabored. pt pending repeat troponin at this time. pt/family notified/aware of plan of care moving forward. plan of care ongoing. call mendiola placed within reach.
[2024-08-12 16:07] LABS: Prothrombin Time 11.6 SEC (10.9-12.4)
--- NOTE | 2024-08-12 16:35 | PC.NURSE ---
pt is a difficult stick. repeat troponin obtained/sent to lab. vital signs up to date - pt remains slightly hypertensive at this time. provider notified/aware of findings. pt and family member notified/aware that pt will be transferred to [facility] for evaluation d/t most recent catheterization that was completed at [facility]. ETA of transfer unknown at this time., will update pt and family when able. plan of care ongoing. call mendiola placed within reach.
--- NOTE | 2024-08-12 17:02 | PC.NURSE ---
pt reporting pain at access site that was placed by EMS. new 20gIV placed in the right outer forearm - patent/intact/+blood return. old IV access discontinued. pt continues to pend transfer to [facility] at this time. family remains bedside.
[2024-08-12 17:27] LABS: Troponin-I High Sensitivity 18.2 ng/L (<3.5-17.0)
[2024-08-13] VITALS (10 sets, daily range): BP systolic 108–184; BP diastolic 41–76; PULSE 64–73; RESP 15–18; TEMP 36.2–36.6; O2SAT 96–100
--- NOTE | 2024-08-13 06:13 | PC.NURSE ---
pt resting comfortably throughout the night, no word from [facility] for transfer
--- NOTE | 2024-08-13 09:27 | PC.NURSE ---
no word from [facility] re transfer, sleeping all morning, easily woken, denies pain or sob, sr on [facility] pharmacy working on med rec,Dr Truong aware of dialysis need today
--- NOTE | 2024-08-13 09:28 | PHA.MEDREC ---
Pharmacy Consult ? Medication Reconciliation Pharmacy has completed the medication reconciliation.Med rec complete, used list from dialysis center and also called [facility] to confirm changes that were made after patients procedure just recently. Doses were adjusted on carvedilol and hydralazine, Brilinta and calcitriol, and cinacalcet were added
[2024-08-13] MEDS: amLODIPine Besylate 10 MG TABLET PO (13:16)
[2024-08-13] MEDS: carvediloL 3.125 MG TABLET PO (13:17)
[2024-08-13] MEDS: Sertraline HCL 50 MG TABLET 150 MG PO (13:17)
[2024-08-13] MEDS: Aspirin Enteric Coated 81 MG TABLET.DR PO (13:18)
[2024-08-13 13:31] LABS: Glucose, Whole Blood 94 mg/dL (60-115)
--- NOTE | 2024-08-13 14:00 | P.CONCA_ITS ---
History of Present Illness History of Present Illness Date of Service: 08/13/24 Chief complaint: CHEST TIGHTNESS FROM [facility]ULT DAY [facility]ARE PER EMS Narrative: [age] female with known history of coronary artery disease with previous bypass surgery and recent PCI on August 01 left main into ramus. She presented with elevated blood pressures to [facility] and had chest discomfort and was taken for cardiac catheterization. She presented to us yesterday with chest tightness and elevated blood pressure. She is on hemodialysis Monday, and Monday. She is denying any significant symptoms currently. High sensitivity troponin level 18.2. EKGs not showing any dynamic changes. She is on aspirin and Brilinta for recent stent. She is on multiple medicines for blood pressure control. 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 End stage chronic kidney disease Edema Atherosclerotic cardiovascular disease SHELIA (obstructive sleep apnea) Hypercalcemia Asthma DJD (degenerative joint disease) Chronic kidney disease Other and unspecified hyperlipidemia Type 2 diabetes mellitus with unspecified complications Essential hypertension Family History Family History Father Cardiovascular disease Hypertension Mother Cardiovascular disease Hypertension Surgical History Surgical History History of hemorrhoidectomy (01/30/23) H/O colonoscopy Hemorrhoids H/O angioplasty History of tubal ligation History of coronary artery bypass graft (~2017) Social History Social History Household Members: Other Household Members Other:: son Housing: Apartment Housing Other:: senior apartment Are you a primary care coordination manager to a significant other at home: No Do you presently have visiting nurse or other home services: Yes ([facility]) Alcohol intake: never Patient Tobacco Use Status: Never used Tobacco Smoked in Last 30 Days: No Use of substances other than those prescribed or required for medical reasons: No Advance Directives: Yes Advance Directives on File: Yes Advance Directives Date on File: 12/03/20 Do you have a plan to hurt others: No Plan service: No 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al status: disabled 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 Meds Allergies Allergy/AdvReac Type Severity Reaction Status Date / Time No Known Allergies Allergy Verified 08/12/24 13:05 Active Medications: Current Medications Amlodipine Besylate (Amlodipine Besylate 10 Mg Tablet) 10 mg PO DAILY FORMERLY [facility], [facility]1983; Protocol Last Admin: 08/13/24 13:16 Dose: 10 mg Aspirin (Aspirin Enteric Coated 81 Mg Tablet.) 81 mg PO DAILY FORMERLY [facility], 1928–1983 Last Admin: 08/13/24 13:18 Dose: 81 mg Atorvastatin Calcium (Atorvastatin Calcium 80 Mg Tablet) 80 mg PO BEDTIME FORMERLY [facility], 1928–1983 Carvedilol (Carvedilol 3.125 Mg Tablet) 3.125 mg PO BID FORMERLY [facility], 1928–1983; Protocol Last Admin: 08/13/24 13:17 Dose: 3.125 mg Furosemide (Furosemide 40 Mg Tablet) 120 mg PO BID FORMERLY [facility], 1928–1983; Protocol Glucose (Glucose Gel 15 Gm Gel..Gram.) 15 gm PO Q15M PRN; Protocol PRN Reason: per Hypoglycemia Standing Ord. Hydralazine HCl (Hydralazine Hcl 50 Mg Tablet) 50 mg PO TID FOR[facility]LY [facility], 1928–1983; Protocol Dextrose (D10) 250 mls @ 750 mls/hr IV Q15M PRN; Protocol PRN Reason: per Hypoglycemia Standing Ord. Pantoprazole Sodium (Pantoprazole Sodium 20 Mg Tablet.) 40 mg PO DAILY@0630 FOR[facility]LY [facility], 1928–1983 Sertraline HCl (Sertraline Hcl 50 Mg Tablet) 150 mg PO DAILY FOR[facility]LY [facility], 1928[facility]1983 Last Admin: 08/13/24 13:17 Dose: 150 mg Home Medications ?Medication ?Instructions ?Recorded ?Confirmed ?Last Taken ?Type pantoprazole 40 mg tablet,delayed 40 mg PO DAILY@0630 06/10/20 08/13/24 11/28/21 History release sertraline 100 mg tablet 150 mg PO DAILY 06/10/20 08/13/24 11/28/21 History ascorbic acid (vitamin C) 500 mg 1 tab PO DAILY 12/03/20 08/13/24 11/28/21 History tablet (Vitamin C) montelukast 10 mg tablet 10 mg PO BEDTIME 12/03/20 08/13/24 11/28/21 History insulin glargine 100 unit/mL (3 8 unit subcut DAILY 01/25/23 08/13/24 Unknown History mL) subcutaneous pen (Lantus Solostar U-100 Insulin) sevelamer carbonate 800 mg tablet 800 mg PO TID 01/25/23 08/13/24 Unknown History acetaminophen 500 mg tablet 1,000 mg PO Q8H PRN Pain 02/08/23 08/13/24 Unknown History budesonide-formoterol HFA 80 2 puff inhalation BID 02/08/23 08/13/24 Unknown History mcg-4.5 mcg/actuation aerosol inhaler (Symbicort) cyanocobalamin (vitamin B-12) 1,000 mcg IM QMONTH 02/08/23 08/13/24 Unknown History 1,000 mcg/mL injection solution cholecalciferol (vitamin D3) 25 25 mcg PO QAM 01/01/24 08/13/24 Unknown History mcg (1,000 unit) tablet calcitriol 0.25 mcg capsule 0.75 mcg PO TUTHSA 08/13/24 08/13/24 Unknown History carvedilol 3.125 mg tablet 3.125 mg PO BID 08/13/24 08/13/24 Unknown History cinacalcet 30 mg tablet 30 mg PO DAILY 08/13/24 08/13/24 Unknown History docusate sodium 100 mg capsule 100 mg PO BID PRN Constipation 08/13/24 08/13/24 Unknown History ezetimibe 10 mg tablet 10 mg PO DAILY 08/13/24 08/13/24 Unknown History hydralazine 50 mg tablet 50 mg PO TID 08/13/24 08/13/24 Unknown History insulin glargine 100 unit/mL 7 unit subcut BEDTIME 08/13/24 08/13/24 Unknown History subcutaneous solution (Lantus U-100 Insulin) melatonin 5 mg tablet 5 mg PO BEDTIME 08/13/24 08/13/24 Unknown History ticagrelor 90 mg tablet (Brilinta) 90 mg PO BID 08/13/24 08/13/24 Unknown History Physical Exam 2 Vital Signs: Vital Signs: Last Vital Signs Temp 97.1 F 08/13/24 06:00 Pulse 73 08/13/24 13:17 Resp 18 08/13/24 09:26 BP 161/63 H 08/13/24 13:17 Pulse Ox 100 08/13/24 09:26 O2 Del Method Room Air 08/13/24 07:29 BMI result Body Mass Index 24.0 GENERAL APPEARANCE: in no acute distress, pleasant. NECK: no carotid bruit, no jugular venous distention. SKIN: no suspicious lesions, warm and dry. HEART: Systolic murmur, regular rate and rhythm. LUNGS: clear to auscultation bilaterally. ABDOMEN: soft, nontender. EXTREMITIES: no edema. PERIPHERAL PULSES: equal. NEUROLOGIC: No gross deficits, AAO X 3 Objective Labs and Meds 08/12/24 13:23 08/12/24 13:23 Lab results: Laboratory Results - last 24 hr 08/12/24 08/12/24 08/12/24 13:23 15:54 16:24 PT 11.6 INR 1.0 Sodium 142 Potassium 3.7 Chloride 96 Carbon Dioxide 28 Anion Gap 22 H BUN 33 H Creatinine 7.32 H* Estim Creat Clear Calc 5.5 Estimated GFR 5 POC Glucose Random Glucose 98 Calcium 9.6 D Magnesium 2.4 Total Bilirubin 0.4 AST 14 ALT < 6 Alkaline Phosphatase 127 H Troponin I High Sens 16.3 D 18.2 H B-Natriuretic Peptide 824 H Total Protein 7.7 Albumin 4.1 Influenza Type A (PCR) NEGATIVE Influenza Type B (PCR) NEGATIVE RSV RNA Qual (PCR) NEGATIVE SARS-CoV-2 RNA (RT-PCR) NEGATIVE 08/13/24 13:28 PT INR Sodium Potassium Chloride Carbon Dioxide Anion Gap BUN Creatinine Estim Creat Clear Calc Estimated GFR POC Glucose 94 Random Glucose Calcium Magnesium Total Bilirubin AST ALT Alkaline Phosphatase Troponin I High Sens B-Natriuretic Peptide Total Protein Albumin Influenza Type A (PCR) Influenza Type B (PCR) RSV RNA Qual (PCR) SARS-CoV-2 RNA (RT-PCR) Assessment and Plan (1) Chest tightness: Status: Acute (2) Essential hypertension: Status: Acute (3) ESRD (end stage renal disease) on dialysis: Status: Acute Plan Pleasant 69 year female who is presenting for chest discomfort in the setting of elevated blood pressures. She presented similarly on August 01 underwent cardiac catheterization which showed diffuse RCA disease as well as left main into ramus severe stenosis which was treated with drug-eluting stent. She is on aspirin and Brilinta which should be continued. Blood pressure is elevated. She is on hydralazine 50 mg twice a day, amlodipine 10 mg daily Lasix 120 mg twice a day. She is on carvedilol 3.125 mg twice a day. Carvedilol can be increased to 6.25 mg twice a day. Hydralazine can also be titrated up to 100 mg 3 times a day depending on how her blood pressure is after hemodialysis. She is due to get hemodialysis today. I reached out to Nephrology but we can not dialyze her here. There was planned to transfer this patient for further assessment at [facility] because her supervisor of operations is base there. She will go to [facility] and will have further workup there. I think hypertension control and conservative management should be tried in her. Also post dialysis her symptoms should be reassessed. Thank you for allowing me to participate in the care of your patient. Please feel free to contact me if you have any questions. Procedures Date of Service Date of Service: 08/13/24
[2024-08-13] MEDS: hydrALAZINE HCl 50 MG TABLET PO (14:37)
[2024-08-13] MEDS: Ticagrelor 90 MG TABLET PO (14:37)
--- NOTE | 2024-08-13 15:40 | PC.NURSE ---
nurse to nurse report called to [facility], room 21A RN
== END 2024-08-13 16:26 | disposition short-term general hospital (02) ==
PROVIDERS: Physician Assistant; Emergency Provider Emergency Medicine; PCP Family Medicine
DX: R07.89 Other chest pain (principal); R06.02 Shortness of breath; R60.0 Localized edema; E11.22 Type 2 diabetes mellitus with diabetic chronic kidney disease; I12.0 Hypertensive chronic kidney disease with stage 5 chronic kidney disease or end stage renal disease; N18.6 End stage renal disease; Z99.2 Dependence on renal dialysis; E78.5 Hyperlipidemia, unspecified; J45.909 Unspecified asthma, uncomplicated; Z03.818 Encounter for observation for suspected exposure to other biological agents ruled out; Z79.02 Long term (current) use of antithrombotics/antiplatelets; Z79.82 Long term (current) use of aspirin; Z79.899 Other long term (current) drug therapy; Z79.4 Long term (current) use of insulin; Z95.1 Presence of aortocoronary bypass graft
CPT/HCPCS: 0241U; 36415; 71046; 80053; 82947; 83735; 83880; 84484; 85025; 85610; 93005; 96374; 99285; J2270

== ENCOUNTER → 2024-08-12 13:40 | Outpatient (BNV) | payer OTHER, SELFPAY | PROVIDERS: PCP Family Medicine; Visit Provider Radiology Diagnostic Radiology | DX: J84.9 Interstitial pulmonary disease, unspecified (principal) | CPT/HCPCS: 71046 ==

== ENCOUNTER → 2024-08-12 14:05 | Outpatient (BNV) | payer OTHER, SELFPAY | PROVIDERS: Emergency Provider Emergency Medicine; PCP Family Medicine; Visit Provider Internal Medicine Cardiovascular Disease | DX: R07.89 Other chest pain (principal); I12.0 Hypertensive chronic kidney disease with stage 5 chronic kidney disease or end stage renal disease; N18.6 End stage renal disease; Z99.2 Dependence on renal dialysis | CPT/HCPCS: 93010; 99284 ==

== ENCOUNTER → 2024-08-26 01:55 | Outpatient (BNV) | payer OTHER, SELFPAY | PROVIDERS: Emergency Provider Internal Medicine; PCP Family Medicine; Visit Provider General Practice | DX: R07.9 Chest pain, unspecified (principal) | CPT/HCPCS: 71045 ==

== ENCOUNTER → 2024-08-26 02:40 | Outpatient (BNV) | payer OTHER, SELFPAY | PROVIDERS: Emergency Provider Internal Medicine; PCP Family Medicine; Visit Provider Internal Medicine | DX: R07.9 Chest pain, unspecified (principal); I25.10 Atherosclerotic heart disease of native coronary artery without angina pectoris; Z95.1 Presence of aortocoronary bypass graft; K92.2 Gastrointestinal hemorrhage, unspecified; D64.9 Anemia, unspecified | CPT/HCPCS: 99232; 99239 ==

== ENCOUNTER → 2024-08-26 04:16 | Outpatient (BNV) | payer OTHER, SELFPAY | PROVIDERS: Admitting Provider Internal Medicine; Emergency Provider Internal Medicine; PCP Family Medicine; Visit Provider Internal Medicine | DX: R07.9 Chest pain, unspecified (principal); I25.10 Atherosclerotic heart disease of native coronary artery without angina pectoris; Z95.1 Presence of aortocoronary bypass graft; K92.2 Gastrointestinal hemorrhage, unspecified; D64.9 Anemia, unspecified | CPT/HCPCS: 93010; 99223; 99233 ==

== ENCOUNTER 2024-09-27 10:04 | Emergency (ER) | payer OTHER, SELFPAY ==
[2024-09-27 10:46] VITALS: BP 165/65; PULSE 62; O2SAT 100
[2024-09-27 10:47] VITALS: BP 173/63; PULSE 61; RESP 18; TEMP 36.8; O2SAT 100; BMI 19.3
[2024-09-27 11:59] VITALS: BP 187/72; PULSE 61; RESP 12; TEMP 36.8; O2SAT 100
--- NOTE | 2024-09-27 12:23 | ED.GENADULT ---
HPI - General Adult General Chief complaint: General Medical Stated complaint: BLEEDING @ DIALYSIS PORT PER EMS Time Seen by Provider: 09/27/24 11:46 Source: patient, RN notes reviewed, old records reviewed and manager contract Mode of arrival: EMS Limitations: language barrier History of Present Illness ED Provider: Deniz HPI narrative: 69-year-old female with past medical history significant for end-stage renal disease on dialysis, left arm fistula, hypertension, coronary artery disease, osteopenia, depression, GERD, diabetes, asthma presents for evaluation of bleeding from her fistula site. Patient has no complaints or pain. She does state that she has had a very mild bleeding from her left arm fistula site for the last 2 days. She is up-to-date with her dialysis, she was not miss any treatments. She typically has Monday, , Monday. The patient is on a low-dose aspirin and Brilinta but no anticoagulation Related Data Home Medications ?Medication ?Instructions ?Recorded ?Confirmed sertraline 100 mg tablet 150 mg PO DAILY 06/10/20 08/26/24 ascorbic acid (vitamin C) 500 mg 1 tab PO DAILY 12/03/20 08/26/24 tablet (Vitamin C) montelukast 10 mg tablet 10 mg PO BEDTIME 12/03/20 08/26/24 insulin glargine 100 unit/mL (3 8 unit subcut DAILY 01/25/23 08/26/24 mL) subcutaneous pen (Lantus Solostar U-100 Insulin) sevelamer carbonate 800 mg tablet 800 mg PO TIDWM@0800,1200,1700 01/25/23 08/26/24 acetaminophen 500 mg tablet 1,000 mg PO Q8H PRN Pain 02/08/23 08/26/24 budesonide-formoterol HFA 80 2 puff inhalation BID 02/08/23 08/26/24 mcg-4.5 mcg/actuation aerosol inhaler (Symbicort) cholecalciferol (vitamin D3) 25 25 mcg PO DAILY 01/01/24 08/26/24 mcg (1,000 unit) tablet carvedilol 3.125 mg tablet 3.125 mg PO BID 08/13/24 08/26/24 docusate sodium 100 mg capsule 100 mg PO BID PRN Constipation 08/13/24 08/26/24 ezetimibe 10 mg tablet 10 mg PO DAILY 08/13/24 08/26/24 hydralazine 50 mg tablet 50 mg PO TID 08/13/24 08/13/24 insulin glargine 100 unit/mL 7 unit subcut BEDTIME 08/13/24 08/26/24 subcutaneous solution (Lantus U-100 Insulin) melatonin 5 mg tablet 5 mg PO BEDTIME 08/13/24 08/26/24 ticagrelor 90 mg tablet (Brilinta) 90 mg PO BID 08/13/24 08/26/24 calcitriol 0.25 mcg capsule 0.75 mcg PO TUTHSA 08/26/24 cinacalcet 30 mg tablet 30 mg PO DAILY 08/26/24 clotrimazole 1 % topical solution 1 appl topical BID 08/26/24 08/26/24 diclofenac sodium 1 % topical gel 1 g topical TID PRN pain 08/26/24 08/26/24 insulin aspart U-100 100 unit/mL 3 unit subcut DAILY@1200 08/26/24 08/26/24 (3 mL) subcutaneous pen (Novolog FlexPen U-100 Insulin aspart) insulin aspart U-100 100 unit/mL See Protocol subcut BIDAC 08/26/24 08/26/24 (3 mL) subcutaneous pen (Novolog FlexPen U-100 Insulin aspart) isosorbide mononitrate 30 mg 30 mg PO DAILY 08/26/24 08/26/24 tablet,extended release 24 hr polyethylene glycol 3350 17 17 g PO BID PRN Constipation 08/26/24 08/26/24 gram/dose oral powder sennosides 8.6 mg tablet (senna) 17.2 mg PO BEDTIME PRN diarrhea 08/26/24 08/26/24 Previous Rx's ?Medication ?Instructions ?Recorded amlodipine 10 mg tablet 10 mg PO DAILY 90 days #90 tabs 12/06/22 furosemide 40 mg tablet 120 mg (3 x 40 mg) PO BID #240 tabs 07/26/23 atorvastatin 80 mg tablet 80 mg PO BEDTIME #90 tabs 08/17/23 aspirin 81 mg tablet,delayed 81 mg PO DAILY 90 days #90 tabs 11/16/23 release pantoprazole 40 mg tablet,delayed 40 mg PO BID #60 tabs 08/29/24 release evolocumab 140 mg/mL subcutaneous 140 mg subcut Q2W 90 days #6 mL 09/17/24 pen injector (Repatha SureClick) Allergies Allergy/AdvReac Type Severity Reaction Status Date / Time No Known Allergies Allergy Verified 09/27/24 10:48 Review of Systems Constitutional: Constitutional: Denies body ache(s), Denies chills, Denies fever(s) and Denies headache(s) ENT: Denies vertigo, Denies dizziness and Denies headache(s) Cardiovascular: Cardiovascular: Denies chest pain and Denies dyspnea Respiratory: Respiratory: Denies cough and Denies dyspnea Gastrointestinal: Gastrointestinal: Denies abdominal pain, Denies nausea and Denies vomiting Musculoskeletal: Musculoskeletal: Denies back pain, Denies arthralgias and Denies joint swelling Neurologic: Denies vertigo, Denies dizziness and Denies headache(s) [facility] Past Medical History 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 End stage chronic kidney disease Edema Atherosclerotic cardiovascular disease SHELIA (obstructive sleep apnea) Hypercalcemia Asthma DJD (degenerative joint disease) Chronic kidney disease Other and unspecified hyperlipidemia Type 2 diabetes mellitus with unspecified complications Essential hypertension Surgical History History of hemorrhoidectomy (01/30/23) H/O colonoscopy Hemorrhoids H/O angioplasty History of tubal ligation History of coronary artery bypass graft (~2018) Family History Family History Father Cardiovascular disease Hypertension Mother Cardiovascular disease Hypertension Social History Social History Household Members: Children Household Members Other:: son Housing: House Housing Other:: senior apartment Are you a primary resident care aide to a significant other at home: No Do you presently have visiting nurse or other home services: Yes ([facility]) Alcohol intake: never Patient Tobacco Use Status: Never used Tobacco Advance Directives: Yes Advance Directives on File: Yes Advance Directives Date on File: 12/03/20 Do you have a plan to hurt others: No Plan service: No 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al status: disabled 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 Physical Exam ED Vital Signs: Vital Signs - 24 hr 09/27/24 10:47 09/27/24 11:59 Temperature 98.2 F 98.3 F Pulse Rate 61 61 Respiratory Rate 18 12 Blood Pressure 173/63 H 187/72 H Pulse Oximetry 100 100 Oxygen Delivery Method Room Air Room Air BMI result Body Mass Index 19.3 Const General: healthy appearing, comfortable, no acute distress, alert and awake Nutritional Appearance: well nourished Orientation/consciousness: patient oriented x3 HENMT Head: Yes normocephalic and Yes atraumatic Eyes Eyelids: Yes eyelids normal Conjunctivae: conjunctivae normal Sclerae: sclerae normal Corneas: corneas normal Pupils: Equal, round and reactive pupils present EOM: EOMs intact bilaterally Neck Neck: Yes full ROM Resp Effort & Inspection: normal respiratory effort, able to speak in complete sentences and not labored Skin General skin exam: elasticity normal Neuro General: patient oriented x3 Cranial nerves: Yes Equal, round and reactive pupils present and Yes Bilaterally intact EOM present Cognition (Neuro): normal cognition Extrem Other: Fistula in the left upper extremity. Patient has very faint bleeding from a punctate wound at the fistula site Course Reevaluation(s) Reevaluation #1: No further bleeding, we will wrap the wound and the patient can be discharged home Time: 12:41 Medical Decision Making Medical Decision Making MDM Narrative: 69-year-old female with past medical history as documented above presents for evaluation of faint bleeding from her fistula site. This is very minor bleeding. Plan to close with Exofin skin adhesive. Differential Diagnosis Differential Diagnoses: The differential diagnosis associated with the presentation includes Coagulopathy Acute wound Puncture wound Bleeding from fistula site Discharge Plan Discharge Clinical Impression: Bleeding Patient Disposition: Home, Self-Care Additional Instructions: You had a small area of bleeding covered with skin adhesive. It is okay to get this area wet. The skin glue should dissolve in 5-7 days You may continue with your dialysis as planned tomorrow Prescriptions: No Action amlodipine 10 mg tablet 10 mg PO DAILY 90 Days Qty: 90 3RF furosemide 40 mg tablet 120 mg PO BID Qty: 240 2RF atorvastatin 80 mg tablet 80 mg PO BEDTIME Qty: 90 3RF aspirin 81 mg tablet,delayed release (DR/EC) 81 mg PO DAILY 90 Days Qty: 90 0RF Rx Instructions: Need to schedule appt for future refills. Kenia Naranjo 140 mg/mL pen injector 140 mg subcut Q2W 90 Days Qty: 6 3RF Rx Instructions: replaced Praluant ascorbic acid (vitamin C) [Vitamin C] 500 mg tablet 1 tab PO DAILY montelukast 10 mg tablet 10 mg PO BEDTIME budesonide-formoterol [Symbicort] 80-4.5 mcg/actuation HFA aerosol inhaler 2 puff inhalation BID acetaminophen 500 mg tablet 1,000 mg PO Q8H PRN (Reason: Pain) sennosides [senna] 8.6 mg tablet 17.2 mg PO BEDTIME PRN (Reason: diarrhea) polyethylene glycol 3350 17 gram/dose powder 17 g PO BID PRN (Reason: Constipation) insulin aspart U-100 [Novolog FlexPen U-100 Insulin] 100 unit/mL (3 mL) insulin pen See Protocol subcut BIDAC Protocol: Insulin Correction Scale Less than or equal to 110 ---- Give (units): 0 111 to 150 Give (units): 3 151 to 200 Give (units): 5 201 to 250 Give (units): 7 251 to 300 Give (units): 9 301 to 350 Give (units): 11 Greater than 350 Give (units): 13 Call MD if Blood Glucose > : 399 diclofenac sodium 1 % gel 1 g topical TID PRN (Reason: pain) isosorbide mononitrate 30 mg tablet extended release 24 hr 30 mg PO DAILY clotrimazole 1 % Solution 1 appl TOPICAL BID insulin aspart U-100 [Novolog FlexPen U-100 Insulin] 100 unit/mL (3 mL) insulin pen 3 unit subcut DAILY@1200 calcitriol 0.25 mcg capsule 0.75 mcg PO TUTHSA cinacalcet 30 mg tablet 30 mg PO DAILY pantoprazole 40 mg tablet,delayed release (DR/EC) 40 mg PO BID Qty: 60 0RF Rx Instructions: take prilosec 40mg bid x 4 weeks than 1 po daily sevelamer carbonate 800 mg tablet 800 mg PO TIDWM@0800,1200,1700 insulin glargine [Lantus Solostar U-100 Insulin] 100 unit/mL (3 mL) insulin pen 8 unit subcut DAILY insulin glargine [Lantus U-100 Insulin] 100 unit/mL Solution 7 unit SUBCUT BEDTIME docusate sodium 100 mg Capsule 100 mg PO BID PRN (Reason: Constipation) ezetimibe 10 mg tablet 10 mg PO DAILY melatonin 5 mg Tablet 5 mg PO BEDTIME carvedilol 3.125 mg Tablet 3.125 mg PO BID Rx Instructions: must administer with a meal/food Brilinta 90 mg Tablet 90 mg PO BID hydralazine 50 mg Tablet 50 mg PO TID sertraline 100 mg tablet 150 mg PO DAILY cholecalciferol (vitamin D3) 25 mcg (1,000 unit) tablet 25 mcg PO DAILY Print Language: Estonian
--- OUTSIDE RECORDS SUMMARY | 2024-09-27 12:37 | XMS_ITS | Encounter Summary ---
Author Organization [facility] Address [address] [facility] [address] [place] [address] Phone Care Team Providers Care Car Salesman Name Role Phone Patricia Ingram MD Primary Care Provider [phone] Encounter Details Date Type Department Care Team (Late st Contact Info) Description 09/12/2024 Treatment [facility] [address] [address] Richard Alatorre MD [address] [address] Social History Tobacco Use Types Packs/Day Years Used Date Smoking Tobacco: Former Cigarettes Q uit: 07/31/1979 Smokeless Tobacco: Never Comments:Smoking History Inf o:Unknown Alcohol Use Standard Drinks/Week Comments Never 0 (1 standard drink = 0.6 oz pur e alcohol) Comments Unknown Sex and Gender Information Value Date Recorded Sex Assigned at Not on file Legal Sex Female 5:06 PM EST Gender Identity Not on file Sexual Orientation Not on file documented as of this encounter Miscellaneous Notes * Dialysis Note - Richard Alatorre MD - 09/12/2024 12:00 AM EST Patient: Kavitha Padilla : 1955 Note Type: Dialysis Rounds-Basic Service Date: 09/12/2024 This patient was personally seen for a basic visit as part of routine monthly dialysis care for end stage renal disease. Attending Brick Loader: RICHARD ALATORRE MD Dialysis Location: [facility] Schedule: Shift: 2 HOME MEDICATIONS Current [facility] Outpatient Medications ACETAMINOPHEN EXTRA STRENGTH 500 MG PO TABS TAKE 2 TABLETS BY MOUTH EVERY 8 HOURS NEEDED Start Date: 11/17/2020 albuterol (PROVENTIL HFA;VENTOLIN HFA) inhaler INHALE 2 PUFFS BY MOUTH EVERY 4 TO 6 HOURS NEEDED SHORTNESS OF BREATH Start Date: 04/27/2021 amLODIPine (NORVASC) tablet Take 1 tablet by mouth 1 (one) time each day Start Date: 07/15/2015 ascorbic acid tablet TAKE 1 TABLET BY MOUTH TWICE DAILY IN THE MORNING AND IN THE EVENING Start Date: 11/12/2020 aspirin EC tablet Take 1 tablet by mouth 1 (one) time each day Start Date: atorvastatin (LIPITOR) tablet Take 1 tablet by mouth 1 (one) time each day Start Date: cholecalciferol (VITAMIN D-3) tablet Take 1 tablet by mouth 1 (one) time each day Start Date: ferrous sulfate EC tablet 325 mg (65 mg elemental) Take 1 tablet by mouth 2 (two) times a day Start Date: FLOVENT HFA 110 MCG/ACT IN AERO Start Date: 05/26/2021 furosemide (LASIX) 40 MG tablet TAKE 3 TABLETS BY MOUTH TWICE DAILY IN THE MORNING AND IN THE EVENING Start Date: 02/14/2023 hydrALAZINE (APRESOLINE) tablet Take 1 tablet by mouth 2 (two) times a day Start Date: INSULIN LISPRO (1 UNIT DIAL) 100 UNIT/ML SC SOPN Start Date: LANTUS 100 UNIT/ML SC SOLN Inject 40 Units under the skin 2 (two) times a day Start Date: LANTUS SOLOSTAR 100 UNIT/ML SC SOPN INJECT 28 UNITS SUBCUTANEOUSLY EVERY EVENING Start Date: 05/26/2021 MELATONIN 5 MG PO TABS Take 1 tablet by mouth at bed time Start Date: 11/12/2020 nitroglycerin (NITROSTAT) SL tablet Start Date: pantoprazole (PROTONIX) EC tablet Take 1 tablet by mouth 1 (one) time each day Start Date: sertraline (ZOLOFT) tablet Take 1.5 tablets by mouth 1 (one) time each day Start Date: sevelamer carbonate (RENVELA) 800 MG tablet Take 1 tablet (800 mg total) by mouth in the morning and 1 tablet (800 mg total) at noon and 1 tablet (800 mg total) in the evening. Take with meals. Swallow tablet whole; do not crush, break, or chew.. Start Date: 01/16/2024 Current [facility] Allergies Allergen: No Known Allergies ADEQUACY ASSESSMENT Kt/V, Natural Log 1.74 (09/05/24) 1.76 (08/08/24) 1.76 (07/04/24) UREA REDUCTION RATIO (%) 78 (09/05/24) 78 (08/08/24) 79 (07/04/24) BUN 36 (09/05/24) 36 (08/08/24) 39 (07/04/24) BUN Post Dialysis 8 (09/05/24) 8 (08/08/24) 8 (07/04/24) Creatinine 6.37 (09/05/24) 7.12 (08/08/24) 7.13 (07/04/24) Bicarbonate (CO2) 26 (09/05/24) 27 (08/08/24) 28 (07/04/24) Sodium 141 (09/05/24) 139 (08/08/24) 138 (07/04/24) ANEMIA ASSESSMENT Hgb 9.1 (09/05/24) 7.6 (08/22/24) 10.3 (08/08/24) Iron Saturation (TSat) 45 (09/05/24) 82 (08/08/24) 20 (07/04/24) Ferritin 1,466 (09/05/24) 1,816 (08/08/24) 1,016 (07/04/24) Iron 80 (09/05/24) 142 (08/08/24) 37 (07/04/24) TIBC 176 (09/05/24) 174 (08/08/24) 185 (07/04/24) MCV 92.7 (09/05/24) 90.9 (07/04/24) 92.8 (06/06/24) Platelets 179 (09/05/24) 246 (07/04/24) 258 (06/06/24) BMM ASSESSMENT Calcium, Adjusted Total 10.0 09/05/24 9.1 08/08/24 10.1 07/04/24 Calcium 9.9 09/05/24 9.1 08/08/24 10.1 07/04/24 Phosphorus, Serum 4.3 09/05/24 3.6 08/08/24 4.8 07/04/24 Ca*PO4 42.6 09/05/24 32.8 08/08/24 48.5 07/04/24 PTH, Intact 1,440 09/05/24 376 08/08/24 1,246 07/04/24 Magnesium 2.1 09/05/24 2.7 08/08/24 2.4 07/04/24 Alkaline Phosphatase 106 09/05/24 116 08/08/24 106 07/04/24 Aluminum 3 08/08/24 NUTRITION ASSESSMENT Albumin 3.9 09/05/24 4.3 08/08/24 4.1 07/04/24 Potassium 4.3 09/05/24 4.2 08/08/24 4.7 07/11/24 Hemoglobin A1C 5.8 08/08/24 ADDITIONAL LABS White Blood Cells 5.3 (09/05/24) 5.2 (07/04/24) 5.2 (06/06/24) Cholesterol 110 (08/08/24) HDL 51 (08/08/24) LDL-Calc 39 (08/08/24) Triglycerides 100 (08/08/24) Hep B Surface Antibody 31 (08/08/24) Uric Acid 4.4 (08/08/24) Signed by: RICHARD ALATORRE MD on 09/12/2024 at 12:24:24 PM documented in this encounter Plan of Treatment Not on file documented as of this encounter Visit Diagnoses Not on filedocumented in this encounter Care Teams Car Salesman Relationship Specialty Start Date End Date Patricia Ingram MD [address] [place] [id number] PCP - General 08/10/20 documented as of this encounter
--- OUTSIDE RECORDS SUMMARY | 2024-09-27 12:37 | XMS_ITS | Encounter Summary ---
Author Organization [facility] Address [address] [facility] [address] [place] [address] Phone Care Team Providers Care [employer] Gold Attendant Name Role Phone Patricia Ingram MD Primary Care Provider [phone] Encounter Details Date Type Department Care Team (Late st Contact Info) Description 09/17/2024 Treatment [facility] [address] [address] Richard Alatorre MD [address] [address] Social History Tobacco Use Types [...] Dialysis Note - Richard Alatorre MD - 09/17/2024 12:00 AM EST Patient: Kavitha Padilla : 1955 Note Type: Dialysis Rounds-Basic Service Date: 09/17/2024 This patient was personally seen for a basic visit as part of routine monthly dialysis care for end stage renal disease. Attending Binding Cutter: RICHARD ALATORRE MD Dialysis Location: [facility] Schedule: Shift: 2 HOME MEDICATIONS Current [facility] Outpatient Medications ACETAMINOPHEN EXTRA STRENGTH 500 [...] (08/08/24) Signed by: RICHARD ALATORRE MD on 09/17/2024 at 11:54:04 AM documented in this encounter Plan of Treatment Not on file documented as of this encounter Visit Diagnoses Not on filedocumented in this encounter Care Teams [employer] Gold Attendant Relationship Specialty Start Date End Date Patricia Ingram MD [address] [place] [id number] PCP - General 08/10/20 documented as of this encounter
--- OUTSIDE RECORDS SUMMARY | 2024-09-27 12:37 | XMS_ITS | Encounter Summary ---
Author Organization [facility] Address [address] [facility] [address] [address] Phone Care Team Providers Care Insurance Policy Clerk Name Role Phone Patricia Ingram MD Primary Care Provider [phone] Encounter Details Date Type Department Care Team (Late st Contact Info) Description 09/10/2024 Treatment [facility] [address] [address] Richard Alatorre MD [address] [address] Social History Tobacco Use Types [...] Dialysis Note - Richard Alatorre MD - 09/10/2024 12:00 AM EST Patient: Kavitha Padilla : 1955 Note Type: Dialysis Rounds-Basic Service Date: 09/10/2024 This patient was personally seen for a basic visit as part of routine monthly dialysis care for end stage renal disease. Attending After School Tutor: RICHARD ALATORRE MD Dialysis Location: [facility] Schedule: Shift: 2 HOME MEDICATIONS Current [facility] Outpatient Medications ACETAMINOPHEN EXTRA STRENGTH 500 MG [...] (08/08/24) Signed by: RICHARD ALATORRE MD on 09/10/2024 at 12:52:49 PM documented in this encounter Plan of Treatment Not on file documented as of this encounter Visit Diagnoses Not on filedocumented in this encounter Care Teams Insurance Policy Clerk Relationship Specialty Start Date End Date Patricia Ingram MD [address] [place] [id number] PCP - General 08/10/20 documented as of this encounter
--- OUTSIDE RECORDS SUMMARY | 2024-09-27 12:37 | XMS_ITS | Encounter Summary ---
Author Organization [facility] Address [address] [facility] [address] [place] [address] Phone Care Team Providers Care Digital Music Instructor Name Role Phone Patricia Ingram MD Primary Care Provider [phone] Encounter Details Date Type Department Care Team (Late st Contact Info) Description 09/05/2024 Orders Only [facility] [address]. [address] [address] Driss Alatorre MD [address] [address] Social History Tobacco Use Types [...] on file documented as of this encounter Plan of Treatment Not on file documented as of this encounter Procedures Procedure Name Priority Date/Time Associated Diagnosis Comments HEMOGLOBIN AND HEMATOCRIT, BLOOD Routine 09/19/2024 3:00 AM EST LIH () Routine 09/05/2024 3:00 AM EST KT/V NATURAL LOG, URR () Routine 09/05/2024 3:00 AM EST CALCIUM PHOSPHORUS PRODUCT, ADJUSTED () Routine 09/05/2024 3:00 AM EST TRANSFERRIN SATURATION Routine 3:00 AM EST CBC AND DIFFERENTIAL Routine 09/05/2024 3:00 AM EST ALT Routine 09/05/2024 3:00 AM EST AST Routine 09/05/2024 3:00 AM EST PROTEIN, TOTAL, SERUM Routine 09/05/2024 3:00 AM EST ALKALINE PHOSPHATASE Routine 09/05/2024 3:00 AM EST PTH, INTACT Routine 09/05/2024 3:00 AM EST MAGNESIUM Routine 09/05/2024 3:00 AM EST LACTATE DEHYDROGENASE Routine 09/05/2024 3:00 AM EST GLUCOSE, RANDOM Routine 09/05/2024 3:00 AM EST FERRITIN Routine 09/05/2024 3:00 AM EST CREATININE, SERUM Routine 09/05/2024 3:0 0 AM EST BILIRUBIN, TOTAL Routine 09/05/2024 3:00 AM EST ELECTROLYTE PANEL Routine 09/05/2024 3:0 0 AM EST documented in this encounter Results * (ABNORMAL) Hemoglobin and hematocrit (09/19/2024 3:00 AM EST) Hgb 9.0(L) 11.2 - 15.7 g/dL [facility] Hematocrit 27.4(L) 34.1 - 44.9 % [facility] Hemoglobin x 3 27.0(L) 33.6 - 47.1 g/dL [facility] 09/19/2024 3:00 AM EST 09/20/2024 12:25 PM EST us Driss Alatorre MD LAB BLOOD ORDERABLES Final Resul t Performing Organization Address [facility] Co de Phone Number [facility] [address] [place] [address] * (ABNORMAL) TSAT (09/05/2024 3:00 AM EST) Iron 80 50 - 170 ug/dL [facility] Transferrin 126(L) 250 - 380 mg/dL [facility] TIBC 176(L) 211 - 406 ug/dL [facility] Iron Saturation (TSat) 45 22 - 52 % [facility] 09/05/2024 3:00 AM EST 09/06/2024 2:27 PM EST us Driss Alatorre MD LAB BLOOD ORDERABLES Final Resul t Performing Organization Address [facility] Phone Number [facility] [address] [place] [address] * Protein, total (09/05/2024 3:00 AM EST) Total Protein 6.6 6.4 - 8.9 g/dL [facility] 09/05/2024 3:00 AM EST 09/06/2024 2:27 PM EST us Driss Alatorre MD LAB BLOOD ORDERABLES Final Resul t Performing Organization Address [facility] de Phone Number [facility] [address] [place] [address] * Magnesium (09/05/2024 3:00 AM EST) Magnesium 2.1 1.9 - 2.7 mg/dL [facility] 09/05/2024 3:00 AM EST 09/06/2024 2:27 PM EST us Driss Alatorre MD LAB BLOOD ORDERABLES Final Resul t Performing Organization Address [facility] Co de Phone Number [facility] [address] [place] [address] * Electrolyte panel (09/05/2024 3:00 AM EST) Sodium 141 136 - 145 mEq/L [facility] Potassium 4.3 3.4 - 5.0 mEq/L [facility] Chloride 103 98 - 107 mEq/L [facility] Bicarbonate (CO2) 26 21 - 31 mEq/L [facility] Anion Gap 12 3 - 14 mEq/L [facility] 09/05/2024 3:00 AM EST 09/06/2024 2:27 PM EST us Driss Alatorre MD LAB BLOOD ORDERABLES Final Resul t Performing Organization Address [facility] de Phone Number [facility] [address] [place] [address] * LIH (09/05/2024 3:00 AM EST) Lipemia Normal Normal [facility] Icterus Normal Normal [facility] Hemolysis Normal Normal [facility] 09/05/2024 3:00 AM EST 09/06/2024 2:27 PM EST us Driss Alatorre MD LAB [id number] ICITED RESULTS Final Result Performing Organization Address [facility] de Phone Number [facility] [address] [place] [address] * (ABNORMAL) Glucose, random (09/05/2024 3:00 AM EST) Glucose 224(H) 74 - 109 mg/dL [facility] 09/05/2024 3:00 AM EST 09/06/2024 2:27 PM EST us Driss Alatorre MD LAB BLOOD ORDERABLES Final Resul t Performing Organization Address [facility] de Phone Number [facility] [address] [place] [address] * Lactate dehydrogenase (09/05/2024 3:00 AM EST) LDH 174 120 - 246 U/L [facility] 09/05/2024 3:00 AM EST 09/06/2024 2:27 PM EST us Driss Alatorre MD LAB BLOOD ORDERABLES Final Resul t Performing Organization Address [facility] de Phone Number [facility] [address] [place] [address] * (ABNORMAL) Creatinine, serum (09/05/2024 3:00 AM EST) Creatinine 6.37(H) 0.55 - 1.02 mg/dL [facility] 09/05/2024 3:00 AM EST 09/06/2024 2:27 PM EST us Driss Alatorre MD LAB BLOOD ORDERABLES Final Resul t Performing Organization Address [facility] Phone Number [facility] [address] [address] * (ABNORMAL) Bilirubin, total (09/05/2024 3:00 AM EST) Total Bilirubin 0.2(L) 0.3 - 1.2 mg/dL [facility] 09/05/2024 3:00 AM EST 09/06/2024 2:27 PM EST us Driss Alatorre MD LAB BLOOD ORDERABLES Final Resul t Performing Organization Address [facility] de Phone Number [facility] [address] [address] * AST (09/05/2024 3:00 AM EST) AST (SGOT) 11 <34 U/L [facility] 09/05/2024 3:00 AM EST 09/06/2024 2:27 PM EST us Driss Alatorre MD LAB BLOOD ORDERABLES Final Resul t Performing Organization Address [facility] de Phone Number [facility] [address] [address] * (ABNORMAL) ALT (09/05/2024 3:00 AM EST) ALT (SGPT) <7(L) 10 - 49 U/L [facility] 09/05/2024 3:00 AM EST 09/06/2024 2:27 PM EST us Driss Alatorre MD LAB BLOOD ORDERABLES Final Resul t Performing Organization Address [facility] de Phone Number [facility] [address] [place] [address] * Alkaline phosphatase (09/05/2024 3:00 AM EST) Alkaline Phosphatase 106 46 - 116 U/L [facility] 09/05/2024 3:00 AM EST 09/06/2024 2:27 PM EST us Driss Alatorre MD LAB BLOOD ORDERABLES Final Resul t Performing Organization Address [facility] de Phone Number [facility] [address] [place] [address] * Calcium Phosphorus Product, Adjusted (09/05/2024 3:00 AM EST) Albumin 3.9 3.6 - 5.4 g/dL [facility] Calcium 9.9 8.6 - 10.3 mg/dL [facility] Phosphorus, Serum 4.3 2.5 - 5.0 mg/dL [facility] Ca*PO4 42.6 <55.0 mg2/dL2 [facility] Calcium, Adjusted Total 10.0 8.6 - 10.3 mg/dL [facility] CA*PO4 CORRCTD 43.0 <55.0 mg2/dL2 [facility] 09/05/2024 3:00 AM EST 09/06/2024 2:27 PM EST us Driss Alatorre MD LAB [id number] ICITED RESULTS Final Result Performing Organization Address [facility] de Phone Number [facility] [address] [place] [address] * (ABNORMAL) Ferritin (09/05/2024 3:00 AM EST) Ferritin 1,466(H) 10 - 291 ng/mL [facility] 09/05/2024 3:00 AM EST 09/06/2024 2:27 PM EST us Driss Alatorre MD LAB BLOOD ORDERABLES Final Resul t Performing Organization Address [facility] Co de Phone Number [facility] [address] [place] [address] * (ABNORMAL) PTH, Intact (09/05/2024 3:00 AM EST) PTH, Intact 1,440(H) 160 - 721 pg/mL [facility] Comment: Suggested (KDIGO) ESRD maintenance range is two to nine times the upper normal limit (80.1 pg/mL) for the laboratory. 09/05/2024 3:00 AM EST 09/06/2024 2:27 PM EST Driss Alatorre MD LAB BLOOD ORDERABLES Final Resul t Performing Organization Address [facility] de Phone Number [facility] [address] [place] [address] * (ABNORMAL) CBC and Differential (09/05/2024 3:00 AM EST) DIFFERENTIAL MANUAL, 2 Not Indicated [facility] White Blood Cells 5.3 4.0 - 10.0 K/uL [facility] RBC 3.02(L) 3.93 - 5.22 M/uL [facility] Hgb 9.1(L) 11.2 - 15.7 g/dL [facility] Hemoglobin x 3 27.3(L) 33.6 - 47.1 g/dL [facility] Hematocrit 28.0(L) 34.1 - 44.9 % [facility] MCV 92.7 79.4 - 94.8 fL [facility] MCH 30.1 25.6 - 32.2 pg [facility] MCHC 32.5 32.2 - 35.5 g/dL [facility] Platelets 179(L) 182 - 369 K/uL [facility] RDW 14.9(H) 11.7 - 14.4 % [facility] Neutrophils Relative 77.7(H) 34.0 - 71.1 % [facility] Lymphocytes Relative 13.9(L) 19.3 - 51.7 % [facility] Monocytes 6.1 4.7 - 12.5 % [facility] Eosinophils Relative 1.5 0.7 - 5.8 % [facility] Basophils Relative 0.4 0.1 - 1.2 % [facility] Immature Granulocytes 0.4 0.0 - 1.0 % [facility] 09/05/2024 3:00 AM EST 09/06/2024 1:33 PM EST Driss Alatorre MD LAB BLOOD ORDERABLES Final Resul t Performing Organization Address [facility] Co de Phone Number [facility] [address] [place] [address] * (ABNORMAL) Kt/V Natural Log, URR (09/05/2024 3:00 AM EST) Treatment Time 183 min [facility] Pre-Weight, lb 56.6 kg [facility] Post-Weight, lb 54.5 kg [facility] Ultrafiltration Rate 13 <=13 mL/kg/hr [facility] Comment: Recommend achieving Ultrafiltration Rate (UFR) <=10 mL/kg/hr References: Kendy VELÁSQUEZ et al. Kidney Int. 2010; 79(2):250-257 BUN 36(H) 7 - 25 mg/dL [facility] BUN Post Dialysis 8 7 - 25 mg/dL [facility] UREA REDUCTION RATIO (%) 78 >=65 % [facility] Kt/V Natural Log 1.74 >=1.2 [facility] 09/05/2024 3:00 AM EST 09/06/2024 1:33 PM EST Driss Alatorre MD LAB [id number] ICITED RESULTS Final Result Performing Organization Address [facility] Co de Phone Number [facility] [address] [place] [address] documented in this encounter Visit Diagnoses Not on filedocumented in this encounter Care Teams Digital Music Instructor Relationship Specialty Start Date End Date Patricia Ingram MD [address] [place] [address] PCP - General 08/10/20 documented as of this encounter
--- OUTSIDE RECORDS SUMMARY | 2024-09-27 12:37 | XMS_ITS ---
Author Organization [facility] Address [address] [place] [address] Care Team Providers Care Stone Driller Helper Name Role Phone Juan Jose DELGADILLO, Patricia Primary Care Provider Brandt Collazo Jr Unavailable REASON FOR VISIT GI bleed Encounters Encounter Location Date Provider Diagnosis [facility] Inpatient [address] [place], [place] [id number] 08/28/2024 Brandt Villegas Jr PLAN OF TREATMENT No Information
--- OUTSIDE RECORDS SUMMARY | 2024-09-27 12:37 | XMS_ITS | Encounter Summary ---
Author Organization [facility] Address [address] [facility] [address] [place] [address] Phone Care Team Providers Care Dry Starch Supervisor Name Role Phone Patricia Ingram MD Primary Care Provider [phone] Reason for Visit * Reason Comments Med Refill Encounter Details Date Type Department Care Team (Late st Contact Info) Description 11/08/2022 Refill [facility] [address] [place] [phone] Feliciano Baldwin MD Social History Tobacco Use Types Packs/Day Years [...] on filedocumented in this encounter Care Teams Dry Starch Supervisor Relationship Specialty Start Date End Date Patricia Ingram MD [address] [place] [address] PCP - General 08/10/20 documented as of this encounter
--- OUTSIDE RECORDS SUMMARY | 2024-09-27 12:37 | XMS_ITS | Encounter Summary ---
Author Organization [facility] Address [address] [facility] [address] [place] [address] Phone Care Team Providers Care Colleter Name Role Phone Patricia Ingram MD Primary Care Provider Reason for Visit * Reason Comments Med Refill Encounter Details Date Type Department Care Team (Late st Contact Info) Description 09/07/2022 Refill [facility] [address] [place] [phone] Kentrell Leos MD Social History Tobacco Use Types Packs/Day [...] on filedocumented in this encounter Care Teams Colleter Relationship Specialty Start Date End Date Patricia Ingram MD [address] [place] [address] PCP - General 08/10/20 documented as of this encounter
--- OUTSIDE RECORDS SUMMARY | 2024-09-27 12:37 | XMS_ITS | Patient Health Record ---
Author Organization [facility] Address [address] [place] [address] Care Team Providers Care Risk Lead Name Role Phone Juan Jose DELGADILLO, Patricia Primary Care Provider Brandt Collazo Jr Unavailable [phone] RESULTS Component Value Reference Range Notes Type and Screen Reviewed date:08/29/2024 10:35:21 AM Interpretation: Performing Lab:[facility], [address] [place] [phone] Notes/Report: Results at Issue Units as of 08/26/24 0456 ... Test View Group: Most Recent HGB HCT Results LABORATORY Date Time Test Result Flag Normal Range 08/26/24 1100 HGB PENDING RECEIPT 12.0-16.0 g/dl 08/26/24 0204 HGB 6.0 #*L 12.0-16.0 g/dl Results of HGB called to and read back by MCTA on 08/26/24 at 0222 by TERRENCE. 08/26/24 1100 HCT PENDING RECEIPT 37.0-47.0 % 08/26/24 0204 HCT 17.5 #*L 37.0-47.0 % Results of HCT called to and read back by WERNERA on 08/26/24 at 0223 by TERRENCE. Results at Issue Units as of 08/26/24 1501 ... Test View Group: Most Recent HGB HCT Results LABORATORY Date Time Test Result Flag Normal Range 08/26/24 1259 HGB PENDING RECEIPT 12.0-16.0 g/dl 08/26/24 1241 HGB 7.9 # L 12.0-16.0 g/dl 08/26/24 1259 HCT PENDING RECEIPT 37.0-47.0 % 08/26/24 1241 HCT 23.6 # L 37.0-47.0 % Hgb 7-9 ASCVD or COPD No Blood Type BP Antibody Screen NEGATIVE Red Blood Cells Reviewed date:08/29/2024 10:35:28 AM Interpretation: Performing Lab:[facility], [address] [place] [phone] Notes/Report: Red Blood Cells [id number] OP RC Red Blood Cells NOT AVAILABLE Red Blood Cells [id number] OP RC Red Blood Cells TRANSFUSED 08/26/24 0454 Red Blood Cells [id number] BP RC Red Blood Cells TRANSFUSED 08/26/24 1500 Complete Blood Count no Diff Reviewed date:08/28/2024 07:49:19 AM Interpretation: Performing Lab:[facility], [address] [place] [phone] Notes/Report: White Blood Count 5.1 4.8-10.8 X10*3/uL Red Blood Count 2.90 4.20-5.50 X10*6/uL Hemoglobin 8.8 12.0-16.0 g/dl Hematocrit 25.8 37.0-47.0 % Mean Corpuscular Volume 89.0 80.0-98.0 fL Mean Corpuscular Hemoglobin 30.3 27.0-33.0 pg Mean Corpuscular HGB Conc 34.1 31.0-35.0 g/dl Red Cell Distribution Width 15.6 11.0-16.0 % Platelet Count 180 160-400 X10*3/uL Mean Platelet Volume 10.4 9.4-12.3 fL NRBC Pct Auto 0.0 0.0-0.2 /100WBC NRBC Abs Auto 0.000 0.0-0.012 X10*3/uL Pathology Reviewed date:09/04/2024 08:03:17 AM Interpretation: Performing Lab:[facility], [address] [place] [phone] Notes/Report: REASON FOR REFERRAL No Information MEDICATIONS Medication SIG (Take, Route, Frequency, Duration) Notes Start Date End Date Status MiraLax (colon prep) 8.3 ounce ((238) grams mixed with Gatorade or Crystal Light orally begin at 5:00 p.m. the day before the procedure for 1 day 04/21/2023 Active Dulcolax (colon prep) 5 MG take at 3:00 p.m and 7:00p.m. Orally two tablets twice a day for one day for 1 day 04/21/2023 Active SOCIAL HISTORY Sex Assigned At : Social History Observation Description Sex Assigned At Unknown Encounters Encounter Location Date Provider Diagnosis [facility] [place] [address] [place] [id number] 08/28/2024 Brandt Villegas Jr [facility] [address] [place] [address] 09/04/2024 Brandt Villegas Jr PLAN OF TREATMENT No Information Insurance Providers Payer Name Payer Address Payer Phone Subscriber Number Group Number Insured Name Patient Relationship to Insured Coverage Start Date Coverage End Date [facility] [address] Attn Claims [place] [address] [id number] CARL HASSAN Self - patient is the insured
--- OUTSIDE RECORDS SUMMARY | 2024-09-27 12:37 | XMS_ITS | Encounter Summary ---
Author Organization [facility] [address] [facility] [address] [place] [address] Phone Care Team Providers Care Diabetes Educator Name Role Phone Patricia Ingram MD Primary Care Provider [phone] Reason for Visit * Reason Comments Med Refill Encounter Details Date Type Department Care Team ([facility] st Contact Info) Description 09/07/2021 Refill [facility] [address] [place] [phone] Yared Powell MD [address] [facility] [address] [place] [address] Social History Tobacco Use Types Packs/Day Years Used Date Smoking Tobacco: Former Cigarettes Q uit: 07/31/1979 Comments:Smoking History Inf o:Unknown Comments Unknown Sex and Gender Information Value Date Recorded Sex Assigned at Not on file Legal Sex Female 5:06 PM EST Gender Identity Not on file Sexual Orientation Not on file documented as of this encounter Miscellaneous Notes * Telephone Encounter - Yared Powell MD - 09/08/2021 7:58 AM EST Needs f/u in 5-6 weeks with me 1. tell them I sent rx but no refils 2. They must see me or have a telehealth visit with me before I can renew it again 3. when u call them be sure to make the f/u appt at the same time u inform them th rx was sent by me documented in this encounter Plan of Treatment Not on file documented as of this encounter Visit Diagnoses Not on filedocumented in this encounter Care Teams Diabetes Educator Relationship Specialty Start Date End Date Patricia Ingram MD [address] [place] [address] PCP - General 08/10/20 documented as of this encounter
--- OUTSIDE RECORDS SUMMARY | 2024-09-27 12:38 | XMS_ITS | Encounter Summary ---
Author Organization [facility] Address [address] [facility] [address] [place] [address] Phone Care Team Providers Care Worship Leader Name Role Phone Patricia Ingram MD Primary Care Provider [phone] Encounter Details Date Type Department Care Team (Late st Contact Info) Description 09/03/2024 Treatment [facility]. [address] [address] Richard Alatorre MD [address] [address] Social History Tobacco Use Types [...] Dialysis Note - Richard Alatorre MD - 09/03/2024 12:00 AM EST Patient: Kavitha Padilla : 1955 Note Type: Dialysis Rounds-Comp Service Date: 09/03/2024 This patient was personally seen for a complete visit as part of routine monthly dialysis care for end stage renal disease. Attending Lapel Padder: RICHARD ALATORRE MD Dialysis Location: [facility] Schedule: Shift: 2 OVERVIEW Patient is stable. HOME MEDICATIONS Medications reviewed. Current [facility] Outpatient Medications ACETAMINOPHEN EXTRA STRENGTH 500 [...] Acumen Epic Allergies Allergen: No Known Allergies BP AND FLUID ASSESSMENT Acceptable blood pressure. Fluid status acceptable. ADEQUACY ASSESSMENT Target met. Prescription compliance acceptable. Continue with greater than 3x more frequent dialysis prescription. Kt/V, Natural Log 1.76 (08/08/24) 1.76 (07/04/24) 1.70 (06/06/24) UREA REDUCTION RATIO (%) 78 (08/08/24) 79 (07/04/24) 78 (06/06/24) BUN 36 (08/08/24) 39 (07/04/24) 45 (06/06/24) BUN Post Dialysis 8 (08/08/24) 8 (07/04/24) 10 (06/06/24) Creatinine 7.12 (08/08/24) 7.13 (07/04/24) 6.89 (06/06/24) Bicarbonate (CO2) 27 (08/08/24) 28 (07/04/24) 28 (06/06/24) Sodium 139 (08/08/24) 138 (07/04/24) 138 (06/06/24) ANEMIA ASSESSMENT ELYSSA adjusted per protocol. Iron adjusted per protocol. Hgb 7.6 (08/22/24) 10.3 (08/08/24) 11.0 (07/18/24) Iron Saturation (TSat) 82 (08/08/24) 20 (07/04/24) 24 (06/06/24) Ferritin 1,816 (08/08/24) 1,016 (07/04/24) 1,402 (06/06/24) Iron 142 (08/08/24) 37 (07/04/24) 47 (06/06/24) TIBC 174 (08/08/24) 185 (07/04/24) 197 (06/06/24) MCV 90.9 (07/04/24) 92.8 (06/06/24) Platelets 246 (07/04/24) 258 (06/06/24) BMM ASSESSMENT Bone and mineral metabolism parameters reviewed. Calcium, Adjusted Total 9.1 08/08/24 10.1 07/04/24 9.8 06/29/24 Calcium 9.1 08/08/24 10.1 07/04/24 9.8 06/29/24 Phosphorus, Serum 3.6 08/08/24 4.8 07/04/24 5.2 06/06/24 Ca*PO4 32.8 08/08/24 48.5 07/04/24 54.6 06/06/24 PTH, Intact 376 08/08/24 1,246 07/04/24 1,186 06/06/24 Magnesium 2.7 08/08/24 2.4 07/04/24 2.6 06/06/24 Alkaline Phosphatase 116 08/08/24 106 07/04/24 122 06/06/24 Aluminum 3 08/08/24 NUTRITION ASSESSMENT Albumin at goal. Albumin 4.3 08/08/24 4.1 07/04/24 4.1 06/29/24 Potassium 4.2 08/08/24 4.7 07/11/24 3.7 07/04/24 Hemoglobin A1C 5.8 08/08/24 PHYSICAL EXAM Exam not performed. ADDITIONAL LABS White Blood Cells 5.2 (07/04/24) 5.2 (06/06/24) Cholesterol 110 (08/08/24) HDL 51 (08/08/24) LDL-Calc 39 (08/08/24) Triglycerides 100 (08/08/24) Hep B Surface Antibody 31 (08/08/24) Uric Acid 4.4 (08/08/24) Signed by: RICHARD ALATORRE MD on 09/03/2024 at 11:44:41 AM documented in this encounter Plan of Treatment Not on file documented as of this encounter Visit Diagnoses Not on filedocumented in this encounter Care Teams Worship Leader Relationship Specialty Start Date End Date Patricia Ingram MD [address] [place] [address] PCP - General 08/10/20 documented as of this encounter
--- OUTSIDE RECORDS SUMMARY | 2024-09-27 12:38 | XMS_ITS | Encounter Summary ---
Author Organization [facility] [address] [facility] [address] [place] [address] Phone Care Team Providers Care Biochemical Engineer Name Role Phone Patricia Ingram MD Primary Care Provider [phone] Encounter Details Date Type Department Care Team (Late st Contact Info) Description 12/21/2020 Orders Only [facility] [address] [place] [phone] Yared Powell MD [address] [facility] [address] [place] [address] Nephrotic range proteinuria; Renal disorder due to type 2 diabetes mellitus <Diabetic nephropathy> (HCC); Stage 5 chronic kidney disease (HCC); Renal osteodystrophy Social History Tobacco Use Types Packs/Day Years Used Date Smoking Tobacco: Former Cigarettes Q uit: 07/31/1979 Comments:Smoking History Inf o:Unknown Comments Unknown Sex and Gender Information Value Date Recorded Sex Assigned at Not on file Legal Sex Female 5:06 PM EST Gender Identity Not on file Sexual Orientation Not on file COVID-19 Exposure Response Date Recorded In the last month, have you been in contact with someone who was confirmed or suspected to have Coronavirus / COVID-19? 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
--- OUTSIDE RECORDS SUMMARY | 2024-09-27 12:38 | XMS_ITS | Clinical Summary ---
Author Organization [facility] Facility Address [address] [place] [address], [place] [address] Care Team Providers Care Regional Sales Leader Name Role Phone Patricia Ingram MD Primary Care Provider [phone] Allergies No known active allergies Medications amLODIPine (NORVASC) 10 MG tablet Take 1 tablet by mouth 1 (one) time each day 5 Active aspirin (ST GHISLAINE) 81 MG EC tablet Take 1 tablet by mouth 1 (one) time each day Active atorvastatin (Lipitor) 80 MG tablet Take 1 tablet by mouth 1 (one) time each day Active cholecalcifero l (VITAMIN D-3) 25 MCG (1000 UT) tablet Take 1 tablet by mouth 1 (one) time each day Active ferrous sulfate 325 (65 Fe) MG EC tablet Take 1 tablet by mouth 2 (two) times a day Active hydrALAZINE (APRESOLINE) 10 MG tablet Take 1 tablet by mouth 2 (two) times a day Active insulin glargine (Lantus) 100 UNIT/ML injection Inject 40 Units under the skin 2 (two) times a day Active Insulin Lispro, 1 Unit Dial, (HumaLOG KWIKPEN) 100 UNIT/ML solution pen-injector Active nitroglycerin (Nitrostat) 0.4 MG SL tablet Active pantoprazole (PROTONIX) 40 MG EC tablet Take 1 tablet by mouth 1 (one) time each day Active sertraline (ZOLOFT) 100 MG tablet Take 1.5 tablets by mouth 1 (one) time each day Active Acetaminophen Extra Strength 500 MG tablet TAKE 2 TABLETS BY MOUTH EVERY 8 HOURS NEEDED 1 Active ascorbic acid (VITAMIN C) 500 MG tablet TAKE 1 TABLET BY MOUTH TWICE DAILY IN THE MORNING AND IN THE EVENING 1 Active Melatonin 5 MG tablet Take 1 tablet by mouth at bed time 1 Active albuterol HFA (PROVENTIL HFA;VENTOLIN HFA) 108 (90 Base) MCG/ACT inhaler INHALE 2 PUFFS BY MOUTH EVERY 4 TO 6 HOURS NEEDED SHORTNESS OF BREATH 1 Active Flovent HFA 110 MCG/ACT inhaler 1 Active Lantus SoloStar 100 UNIT/ML injection INJECT 28 UNITS SUBCUTANEOUSLY EVERY EVENING 1 Active furosemide (LASIX) 40 MG tablet TAKE 3 TABLETS BY MOUTH TWICE DAILY IN THE MORNING AND IN THE EVENING 180 tablet 2 3 Active sevelamer carbonate (RENVELA) 800 MG tablet Take 1 tablet (800 mg total) by mouth in the morning and 1 tablet (800 mg total) at noon and 1 tablet (800 mg total) in the evening. Take with meals. Swallow tablet whole; do not crush, break, or chew.. 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 Letter sent to the referring source and to the pt.T-spot positive 02/05/16. Pt did not keep 2 sched appts. Letter sent to the referring source and to the patient. Resolved Problems Problem Noted Date Diagnosed Date Resolved Date Hyperlipidemia 01/17/2022 01/18/2022 Chronic kidney disease, stage 4 (severe) 11/02/2020 03/15/2021 Renal osteodystrophy 10/20/2020 021 Chronic kidney disease stage 3 10/19/2020 03/15/2021 Hypertensive renal disease 10/19/2020 0 03/15/2021 Proteinuria 10/19/2020 01/18/2022 Encounters Date Type Department Care Team Description 09/17/2024 Treatment [facility] [address] [address] Driss Alatorre MD 09/12/2024 Treatment [facility] [address] [address] Driss Doshi MD 09/10/2024 Treatment [facility] [address] [address]Andrzej Sanchez [phone] Doshi MD 09/05/2024 Orders Only [facility] [address] [address] Driss Doshi MD 09/03/2024 Treatment [facility] [address] [address] Driss Alatorre MD 08/20/2024 Treatment [facility] [address] [address] Driss Doshi MD 08/06/2024 Treatment [facility] [address] [address] Driss Alatorre MD 07/18/2024 Treatment [facility] [address] [address] Driss Alatorre MD 07/16/2024 Treatment [facility] [address] [address] Driss Alatorre MD 07/09/2024 Treatment [facility] [address] [address] Driss Alatorre MD 07/02/2024 Treatment [facility] [address] [facility] [place] [address] [place] [address] Driss Alatorre MD from Last 3 Months Immunizations Name Administration Dates Next Due Hepatitis B 12/17/2013,03/22/2013,02/06/2008 Influenza, Unspecified 04/15/2020,2018,05/09/2018,04/25/2017 ,10/24/2016,04/21/2016,06/02/2015, 4,05/04/2011 Moderna SARS-COV-2 01/02/2021,12/05/2020 Pneumococcal Conjugate 13-Valent 10/23/2018 Pneumococcal Polysaccharide 04/25/2017, 1 Shingrix 08/26/2019,06/17/2019 Td, Unspecified 12/29/2010 Tdap 03/22/2013 Family History Medical History Relation Comments Diabetes Mother Hypertension Mother Relation Status Comments Mother Social History Tobacco Use Types Packs/Day Years Used Date Smoking Tobacco: Former Cigarettes Q uit: 07/31/1979 Smokeless Tobacco: Never Tobacco Cessation:Counseling Given: No Comments:Smoking History Info:Unknown Alcohol Use Standard Drinks/Week Comments Never 0 (1 standard drink = 0.6 oz pur e alcohol) Comments Unknown Sex and Gender Information Value Date Recorded Sex Assigned at Not on file Legal Sex Female 5:06 PM EST Gender Identity Not on file Sexual Orientation Not on file Last Filed Vital Signs Vital Sign Reading Time Taken Comments Blood Pressure 136/72 01/19/2022 1:20 PM EDT Pulse 70 01/19/2022 1:20 PM EDT Temperature - - Respiratory Rate - - Oxygen Saturation 97% 01/19/2022 1:20 PM EDT Inhaled Oxygen Concentration - - Weight 63.8 kg (140 lb 9.6 oz) 01/19/2022 1:20 P M EDT Height - - Body Mass Index - - Plan of Treatment Health Maintenance Due Date Last Done Comments Breast Cancer Screening 1955 Hepatitis B Vaccine (1 of 5 - Risk Dialysis 4-dose series) 1973 12/17/2013, 03/22/2013, 02/06/2008 Colorectal Cancer Screening: Annual FOBT 2002 Colorectal Cancer Screening: Colonoscopy 2002 Colorectal Cancer Screening: Sigmoidoscopy 2002 Diabetes: Ophthalmology Exam 08/30/2020 Diabetes: Pedal Pulse Checked 08/30/2020 Diabetes: Sensory Foot Exam 08/30/2020 Diabetes: Visual Foot Exam 08/30/2020 Pneumococcal Vaccine: 65+ Ye ars (4 of 4 - PPSV23 or PCV20) 04/25/2022 10/23/2018, 04/25/2017, 05/04/2011 Influenza Vaccine (#1) 2024 , 04/15/2020, 06/17/2019, Additional history exists Diabetes: Hemoglobin A1C 11/19/2024 025, 08/08/2024, 05/05/2022, Additional history exists Procedures Procedure Name Priority Date/Time Associated Diagnosis Comments HEMOGLOBIN AND HEMATOCRIT, BLOOD Routine 09/19/2024 3:00 AM EST TRANSFERRIN SATURATION Routine 3:00 AM EST PROTEIN, TOTAL, SERUM Routine 09/05/2024 3:00 AM EST MAGNESIUM Routine 09/05/2024 3:00 AM EST ELECTROLYTE PANEL Routine 09/05/2024 3:0 0 AM EST LIH (HC) Routine 09/05/2024 3:00 AM EST GLUCOSE, RANDOM Routine 09/05/2024 3:00 AM EST LACTATE DEHYDROGENASE Routine 09/05/2024 3:00 AM EST CREATININE, SERUM Routine 09/05/2024 3:0 0 AM EST BILIRUBIN, TOTAL Routine 09/05/2024 3:00 AM EST AST Routine 09/05/2024 3:00 AM EST ALT Routine 09/05/2024 3:00 AM EST ALKALINE PHOSPHATASE Routine 09/05/2024 3:00 AM EST CALCIUM PHOSPHORUS PRODUCT, ADJUSTED (HC) Routine 09/05/2024 3:00 AM EST FERRITIN Routine 09/05/2024 3:00 AM EST PTH, INTACT Routine 09/05/2024 3:00 AM EST CBC AND DIFFERENTIAL Routine 09/05/2024 3:00 AM EST KT/V NATURAL LOG, URR (HC) Routine 09/05/2024 3:00 AM EST HEMOGLOBIN AND HEMATOCRIT, BLOOD Routine 08/22/2024 3:00 AM EST ALUMINUM LEVEL Routine 08/08/2024 3:00 AM EST HEPATITIS C ABS W/REFLEX RNA DETECTR Routine 08/08/2024 3:00 AM EST CONFIRMATION TEST HCV Routine 08/08/2024 3:00 AM EST FERRITIN Routine 08/08/2024 3:00 AM EST HEMOGLOBIN A1C Routine 08/08/2024 3:00 AM EST URIC ACID Routine 08/08/2024 3:00 AM EST TRANSFERRIN SATURATION Routine 3:00 AM EST ELECTROLYTE PANEL Routine 08/08/2024 3:0 0 AM EST PROTEIN, TOTAL, SERUM Routine 08/08/2024 3:00 AM EST LIPID PANEL Routine 08/08/2024 3:00 AM EST MAGNESIUM Routine 08/08/2024 3:00 AM EST LIH (HC) Routine 08/08/2024 3:00 AM EST LACTATE DEHYDROGENASE Routine 08/08/2024 3:00 AM EST GLUCOSE, RANDOM Routine 08/08/2024 3:00 AM EST CREATININE, SERUM Routine 08/08/2024 3:0 0 AM EST BILIRUBIN, TOTAL Routine 08/08/2024 3:00 AM EST AST Routine 08/08/2024 3:00 AM EST ALT Routine 08/08/2024 3:00 AM EST ALKALINE PHOSPHATASE Routine 08/08/2024 3:00 AM EST CALCIUM PHOSPHORUS PRODUCT, ADJUSTED (HC) Routine 08/08/2024 3:00 AM EST PTH, INTACT Routine 08/08/2024 3:00 AM EST HEPATITIS B SURFACE ANTIBODY QUANT Routine 08/08/2024 3:00 AM EST HEMOGLOBIN Routine 08/08/2024 3:00 AM EST COLLECTION DATE (HC) Routine 08/08/2024 3:00 AM EST KT/V NATURAL LOG, URR () Routine 08/08/2024 3:00 AM EST HEMOGLOBIN AND HEMATOCRIT, BLOOD Routine 07/18/2024 3:00 AM EST LIH () Routine 07/11/2024 3:00 AM EST POTASSIUM Routine 07/11/2024 3:00 AM EST PROTEIN, TOTAL, SERUM Routine 07/04/2024 3:00 AM EST MAGNESIUM Routine 07/04/2024 3:00 AM EST TRANSFERRIN SATURATION Routine 3:00 AM EST LACTATE DEHYDROGENASE Routine 07/04/2024 3:00 AM EST GLUCOSE, RANDOM Routine 07/04/2024 3:00 AM EST LIH (HC) Routine 07/04/2024 3:00 AM EST CREATININE, SERUM Routine 07/04/2024 3:0 0 AM EST ELECTROLYTE PANEL Routine 07/04/2024 3:0 0 AM EST AST Routine 07/04/2024 3:00 AM EST ALT Routine 07/04/2024 3:00 AM EST BILIRUBIN, TOTAL Routine 07/04/2024 3:00 AM EST ALKALINE PHOSPHATASE Routine 07/04/2024 3:00 AM EST CALCIUM PHOSPHORUS PRODUCT, ADJUSTED (HC) Routine 07/04/2024 3:00 AM EST PTH, INTACT Routine 07/04/2024 3:00 AM EST FERRITIN Routine 07/04/2024 3:00 AM EST CBC AND DIFFERENTIAL Routine 07/04/2024 3:00 AM EST KT/V NATURAL LOG, URR (HC) Routine 07/04/2024 3:00 AM EST CALCIUM, ADJUSTED W ALBUMIN Routine 06/29/2024 3:00 AM EST LIH (HC) Routine 06/29/2024 3:00 AM EST COLLECTION DATE (HC) Routine 06/29/2024 3:00 AM EST from Last 3 Months Results * (ABNORMAL) Hemoglobin and hematocrit (09/19/2024 3:00 AM EST) Only the most recent of3 resultswithin the time period is included. Hgb 9.0(L) 11.2 - 15.7 g/dL [facility] Hematocrit 27.4(L) 34.1 - 44.9 % [facility] Hemoglobin x 3 27.0(L) 33.6 - 47.1 g/dL [facility] 09/19/2024 3:00 AM EST 09/20/2024 12:25 PM EST us Driss Alatorre MD LAB BLOOD ORDERABLES Final Resul t Performing Organization Address [facility] de Phone Number [facility] [address] [place] [address] * LIH (09/05/2024 3:00 AM EST) Only the most recent of5 resultswithin the time period is included. Pathologist [facility] Lipemia Normal Normal [facility] Icterus Normal Normal [facility] Hemolysis Normal Normal [facility] 09/05/2024 3:00 AM EST 09/06/2024 2:27 PM EST us Driss Alatorre MD LAB [id number] ICITED RESULTS Final Result Performing Organization Address City/[facility] Co de Phone Number [facility] [address] [place] [address] * (ABNORMAL) Kt/V Natural Log, URR (09/05/2024 3:00 AM EST) Only the most recent of3 resultswithin the time period is included. Treatment Time 183 min [facility] Pre-Weight, lb [...] 1:33 PM EST Driss Alatorre MD LAB [id number] ICITED RESULTS Final Result Performing Organization Address City/[facility] Co de Phone Number [facility] [address] [place] [address] * Calcium Phosphorus Product, Adjusted (09/05/2024 3:00 AM EST) Only the most recent of3 resultswithin the time period is included. Albumin 3.9 3.6 - 5.4 g/dL [facility] Calcium 9.9 8.6 - 10.3 mg/dL [facility] Phosphorus, Serum 4.3 2.5 - 5.0 mg/dL [facility] Ca*PO4 42.6 <55.0 mg2/dL2 [facility] Calcium, Adjusted Total 10.0 8.6 - 10.3 mg/dL [facility] CA*PO4 CORRCTD 43.0 <55.0 mg2/dL2 [facility] 09/05/2024 3:00 AM EST 09/06/2024 2:27 PM EST Driss Alatorre MD LAB [id number] ICITED RESULTS Final Result Performing Organization Address City/[facility] Co de Phone Number [facility] [address] [place] [address] * (ABNORMAL) TSAT (09/05/2024 3:00 AM EST) Only the most recent of3 resultswithin the time period is included. Iron 80 50 - 170 ug/dL [facility] Transferrin 126(L) 250 - 380 mg/dL [facility] TIBC 176(L) 211 - 406 ug/dL [facility] Iron Saturation (TSat) 45 22 - 52 % [facility] 09/05/2024 3:00 AM EST 09/06/2024 2:27 PM EST Driss Alatorre MD LAB BLOOD ORDERABLES Final Resul t Performing Organization Address City/[facility]/ZIP Co de Phone Number [facility] [address] [place] [address] * (ABNORMAL) CBC and Differential (09/05/2024 3:00 AM EST) Only the most recent of2 resultswithin the time period is included. DIFFERENTIAL MANUAL, 2 Not Indicated [facility] White [...] ORDERABLES Final Resul t Performing Organization Address City/[facility]/ZIP Co de Phone Number [facility] [address] [place] [address] * (ABNORMAL) ALT (09/05/2024 3:00 AM EST) Only the most recent of3 resultswithin the time period is included. ALT (SGPT) <7(L) 10 - 49 U/L [facility] 09/05/2024 3:00 AM EST 09/06/2024 2:27 PM EST us Driss Alatorre MD LAB BLOOD ORDERABLES Final Resul t Performing Organization Address City/[facility] Co de Phone Number [facility] [address] [place] [address] * AST (09/05/2024 3:00 AM EST) Only the most recent of3 resultswithin the time period is included. AST (SGOT) 11 <34 U/L [facility] 09/05/2024 3:00 AM EST 09/06/2024 2:27 PM EST us Driss Alatorre MD LAB BLOOD ORDERABLES Final Resul t Performing Organization Address [facility] de Phone Number [facility] [address] [place] [address] * Protein, total (09/05/2024 3:00 AM EST) Only the most recent of3 resultswithin the time period is included. Total Protein 6.6 6.4 - 8.9 g/dL [facility] 09/05/2024 3:00 AM EST 09/06/2024 2:27 PM EST us Driss Alatorre MD LAB BLOOD ORDERABLES Final Resul t Performing Organization Address [facility] de Phone Number [facility] [address] [place] [address] * Alkaline phosphatase (09/05/2024 3:00 AM EST) Only the most recent of3 resultswithin the time period is included. Alkaline Phosphatase 106 46 - 116 U/L [facility] 09/05/2024 3:00 AM EST 09/06/2024 2:27 PM EST us Driss Alatorre MD LAB BLOOD ORDERABLES Final Resul t Performing Organization Address City/[facility] de Phone Number [facility] [address] [place] [address] * (ABNORMAL) PTH, Intact (09/05/2024 3:00 AM EST) Only the most recent of3 resultswithin the time period is included. PTH, Intact 1,440(H) 160 - 721 pg/mL [facility] Comment: Suggested (KDIGO) ESRD maintenance range is two to nine times the upper normal limit (80.1 pg/mL) for the laboratory. 09/05/2024 3:00 AM EST 09/06/2024 2:27 PM EST us Driss Alatorre MD LAB BLOOD ORDERABLES Final Resul t Performing Organization Address [facility] de Phone Number [facility] [address] [place] [address] * Magnesium (09/05/2024 3:00 AM EST) Only the most recent of3 resultswithin the time period is included. Magnesium 2.1 1.9 - 2.7 mg/dL [facility] 09/05/2024 3:00 AM EST 09/06/2024 2:27 PM EST Driss Alatorre MD LAB BLOOD ORDERABLES Final Resul t Performing Organization Address [facility] de Phone Number [facility] [address] [place] [address] * Lactate dehydrogenase (09/05/2024 3:00 AM EST) Only the most recent of3 resultswithin the time period is included. LDH 174 120 - 246 U/L [facility] 09/05/2024 3:00 AM EST 09/06/2024 2:27 PM EST us Driss Alatorre MD LAB BLOOD ORDERABLES Final Resul t Performing Organization Address [facility] Co de Phone Number [facility] [address] [place] [address] * (ABNORMAL) Glucose, random (09/05/2024 3:00 AM EST) Only the most recent of3 resultswithin the time period is included. Glucose 224(H) 74 - 109 mg/dL [facility] 09/05/2024 3:00 AM EST 09/06/2024 2:27 PM EST us Driss Alatorre MD LAB BLOOD ORDERABLES Final Resul t Performing Organization Address [facility] Phone Number [facility] [address] [place] [address] * (ABNORMAL) Ferritin (09/05/2024 3:00 AM EST) Only the most recent of3 resultswithin the time period is included. Ferritin 1,466(H) 10 - 291 ng/mL [facility] 09/05/2024 3:00 AM EST 09/06/2024 2:27 PM EST us Driss Alatorre MD LAB BLOOD ORDERABLES Final Resul t Performing Organization Address [facility] de Phone Number [facility] [address] [place] [address] * (ABNORMAL) Creatinine, serum (09/05/2024 3:00 AM EST) Only the most recent of3 resultswithin the time period is included. Creatinine 6.37(H) 0.55 - 1.02 mg/dL [facility] 09/05/2024 3:00 AM EST 09/06/2024 2:27 PM EST us Driss Alatorre MD LAB BLOOD ORDERABLES Final Resul t Performing Organization Address [facility] Co de Phone Number [facility] [address] [place] [address] * (ABNORMAL) Bilirubin, total (09/05/2024 3:00 AM EST) Only the most recent of3 resultswithin the time period is included. Total Bilirubin 0.2(L) 0.3 - 1.2 mg/dL [facility] 09/05/2024 3:00 AM EST 09/06/2024 2:27 PM EST us Driss Alatorre MD LAB BLOOD ORDERABLES Final Resul t Performing Organization Address [facility] de Phone Number [facility] [address] [place] [address] * Electrolyte panel (09/05/2024 3:00 AM EST) Only the most recent of3 resultswithin the time period is included. Sodium 141 136 - 145 mEq/L [facility] Potassium 4.3 3.4 - 5.0 mEq/L [facility] Chloride 103 98 - 107 mEq/L [facility] Bicarbonate (CO2) 26 21 - 31 mEq/L [facility] Anion Gap 12 3 - 14 mEq/L [facility] 09/05/2024 3:00 AM EST 09/06/2024 2:27 PM EST us Driss Alatorre MD LAB BLOOD ORDERABLES Final Resul t Performing Organization Address [facility] de Phone Number [facility] [address] [place] [address] * Confirmation Test HCV (08/08/2024 3:00 AM EST) Hep C Ab Confirmation Not needed [facility] 08/08/2024 3:00 AM EST 08/12/2024 2:04 PM EST us Driss Alatorre MD LAB BLOOD ORDERABLES Final Resul t Performing Organization Address [facility] de Phone Number [facility] [address] [place] [address] * Collection Date (08/08/2024 3:00 AM EST) Only the most recent of2 resultswithin the time period is included. Collection Date See Comment [facility] Comment: Patient sample received may exceed specimen stability, based on the collection date electronically provided. ??When reviewing patient results, verify collection information and consider specimen stability before acting on any critical or panic results. 08/08/2024 3:00 AM EST us Driss Alatorre MD LAB [id number] ICITED RESULTS Final Result Performing Organization Address [facility] de Phone Number [facility] [address] [place] [address] * HEPATITIS C ABS W/REFLEX RNA DETECTR (08/08/2024 3:00 AM EST) Pathologist [facility] Hep C Virus Ab Non-Reacti ve Non-Reacti ve [facility] 08/08/2024 3:00 AM EST 08/12/2024 2:07 PM EST us Driss Alatorre MD LAB [id number] ICITED RESULTS Final Result Performing Organization Address [facility] de Phone Number [facility] [address] [place] [address] * Aluminum level (08/08/2024 3:00 AM EST) Pathologist [facility] Aluminum 3 1 - 20 ug/L [facility] 08/08/2024 3:00 AM EST 08/12/2024 2:06 PM EST us Driss Alatorre MD LAB BLOOD ORDERABLES Final Resul t Performing Organization Address [facility] de Phone Number [facility] [address] [place] [address] * Hepatitis B Surface Antibody (08/08/2024 3:00 AM EST) Pathologist [facility] Hep B Surface Antibody 31 mIU/mL [facility] Comment: Interpretation: <10: No Immunity >=10: Probable Immunity 08/08/2024 3:00 AM EST 08/12/2024 2:07 PM EST us Driss Alatorre MD LAB BLOOD ORDERABLES Final Resul t Performing Organization Address [facility] de Phone Number [facility] [address] [address] * (ABNORMAL) Hemoglobin (08/08/2024 3:00 AM EST) Hgb 10.3(L) 11.2 - 15.7 g/dL [facility] Hemoglobin x 3 30.9(L) 33.6 - 47.1 g/dL [facility] 08/08/2024 3:00 AM EST 08/12/2024 2:04 PM EST Driss Alatorre MD LAB BLOOD ORDERABLES Final Resul t Performing Organization Address [facility] de Phone Number [address] [address] * Uric Acid (08/08/2024 3:00 AM EST) Uric Acid 4.4 2.3 - 6.6 mg/dL [facility] 08/08/2024 3:00 AM EST 08/12/2024 2:07 PM EST Driss Alatorre MD LAB BLOOD ORDERABLES Final Resul t Performing Organization Address [facility] Phone Number [address] [address] * (ABNORMAL) Hemoglobin A1c (08/08/2024 3:00 AM EST) Hemoglobin A1C 5.8(H) <5.7 % [facility] Comment: Methodology: Enzymatic HbA1c (NGSP %) ?Suggested Diagnosis >6.4% ? Diabetic 5.7-6.4% ?Pre-Diabetic <5.7% ? Non-Diabetic Diabetic Glucose Control Evaluation: Therapeutic action suggested at >8.0% ADA recommends a glycemic goal of <7.0% 08/08/2024 3:00 AM EST 08/12/2024 2:04 PM EST us Driss Alatorre MD LAB BLOOD ORDERABLES Final Resul t Performing Organization Address [facility] de Phone Number [facility] [address] [place] [address] * (ABNORMAL) Lipid panel (08/08/2024 3:00 AM EST) Cholesterol 110 <200 mg/dL [facility] Comment: Optimal: ?<200 Borderline: ? 200-239 Higher Risk: ?>239 Triglycerides 100 <150 mg/dL [facility] Comment: Optimal: ?<150 Borderline High: ??150-199 High: ? 200-499 Very High: ?>499 HDL 51(A) >59 mg/dL [facility] Comment: Desirable: ?>59 Higher Risk: ?<40 LDL-Calc 39 <100 mg/dL [facility] Comment: Optimal: ?<100 Above Optimal: ?100-129 Borderline High: ??130-159 High: ? 160-189 Very High: ?>189 VLDL Cholesterol Adrián 20 <30 mg/dL [facility] Comment: Optimal: ?<30 Borderline High: ??30-39 High: ? 40-99 Very High: ?>99 Chol/HDL Ratio 2.2 <3.3 [facility] Comment: Optimal: ?<3.3 Higher Risk: ?>6.2 08/08/2024 3:00 AM EST 08/12/2024 2:07 PM EST us Driss Alatorre MD LAB BLOOD ORDERABLES Final Resul t Performing Organization Address City/[facility] de Phone Number [facility] [address] [place] [address] * Potassium (07/11/2024 3:00 AM EST) Potassium 4.7 3.4 - 5.0 mEq/L [facility] 07/11/2024 3:00 AM EST 07/12/2024 12:43 PM EST us Driss Alatorre MD LAB BLOOD ORDERABLES Final Resul t Performing Organization Address [facility] de Phone Number [facility] [address] [place] [address] * Calcium, Adjusted w Albumin (06/29/2024 3:00 AM EST) Calcium 9.8 8.6 - 10.3 mg/dL [facility] Albumin 4.1 3.6 - 5.4 g/dL [facility] Calcium, Adjusted Total 9.8 8.6 - 10.3 mg/dL [facility] 06/29/2024 3:00 AM EST 07/02/2024 2:48 PM EST us Driss Alatorre MD LAB BLOOD ORDERABLES Final Resul t Performing Organization Address [facility] de Phone Number APS [facility] [address] [place] [address] from Last 3 Months Insurance ([id number]) MATILDE PALACIOS [phone] [facility] ([id number]) MATILDE PALACIOS [phone] Care Teams Regional Sales Leader Relationship Specialty Start Date End Date Patricia Ingram MD [address] [place] [address] PCP - General 08/10/20
--- OUTSIDE RECORDS SUMMARY | 2024-09-27 12:38 | XMS_ITS ---
Author Organization [facility] Address [address] [place] [address] Care Team Providers Care Speech Clinician Name Role Phone Juan Jose DELGADILLO, Patricia Primary Care Provider Bradford Villegas Jr, Brandt Unavailable [phone] REASON FOR VISIT please send dismissal letter Encounters Encounter Location Date Provider Diagnosis [facility] [address] [place] [address] 08/07/2023 Brandt Villegas Jr PLAN OF TREATMENT No Information
--- OUTSIDE RECORDS SUMMARY | 2024-09-27 12:38 | XMS_ITS | Encounter Summary ---
Author Organization [facility] Facility Address [address] [address] Care Team Providers Care Floor Coverer Name Role Phone Patricia Ingram MD Primary Care Provider Encounter Details Date Type Department Care Team (Latest Contact Info) Description 04/02/2024 Treatment Richard Alatorre MD [address] [facility] [address] [place] [phone] Social History Tobacco Use Types Packs/Day Years [...] Dialysis Note - Richard Alatorre MD - 04/02/2024 12:00 AM EDT Patient: Kavitha Padilla : 1955 Note Type: Dialysis Rounds-Comp Service Date: 04/02/2024 This patient was personally seen for a complete visit as part of routine monthly dialysis care for end stage renal disease. Attending Manager Beauty: RICHARD ALATORRE MD Dialysis Location: [facility] Schedule: Shift: 2 OVERVIEW Patient is stable. HOME MEDICATIONS Medications reviewed. Current [facility] Outpatient Medications ACETAMINOPHEN EXTRA STRENGTH 500 [...] greater than 3x more frequent dialysis prescription. ACCESS ASSESSMENT Vascular access examined. ANEMIA ASSESSMENT ELYSSA adjusted per protocol. Iron adjusted per protocol. BMM ASSESSMENT Bone and mineral metabolism parameters reviewed. NUTRITION ASSESSMENT Patient taking protein supplements. PHYSICAL EXAM Exam performed. Vital Signs Reviewed. Lungs - Clear. CV - Blood pressure noted. CV - RRR. No edema. EXT - No ulcers. Signed by: Richard Alatorre on 04/02/2024 at 09:09:12 PM Transcribed by: Richard Alatorre on 04/02/2024 at 09:09:12 PM documented in this encounter Plan of Treatment Not on file documented as of this encounter Visit Diagnoses Not on filedocumented in this encounter Care Teams Floor Coverer Relationship Specialty Start Date End Date Patricia Ingram MD [address] [place] [address] PCP - General 08/10/20 documented as of this encounter
--- OUTSIDE RECORDS SUMMARY | 2024-09-27 12:38 | XMS_ITS | Encounter Summary ---
Author Organization [facility] [address] [facility] [address] [place] [address] Phone Care Team Providers Care Credit Control Officer Name Role Phone Patricia Ingram MD Primary Care Provider [phone] Reason for Visit * Reason Comments Med Refill Encounter Details Date Type Department Care Team ([facility] st Contact Info) Description 04/29/2021 Refill [facility] [address] [place] [phone] Yared Powell MD [address] [facility] [address] [place] [address] Social History Tobacco Use Types [...] Telephone Encounter - Yared Powell MD - 04/30/2021 10:28 AM EDT Needs f/u in 5-6 weeks with me [...] on filedocumented in this encounter Care Teams Credit Control Officer Relationship Specialty Start Date End Date Patricia Ingram MD [address] [place] [address] PCP - General 08/10/20 documented as of this encounter
--- OUTSIDE RECORDS SUMMARY | 2024-09-27 12:38 | XMS_ITS ---
Author Organization [facility] Address [address] [place] [address] Care Team Providers Care Director Of Billing Name Role Phone Juan Jose DELGADILLO, Patricia Primary Care Provider Bradford Villegas Jr, Brandt Unavailable REASON FOR VISIT pathology Encounters Encounter Location Date Provider Diagnosis [facility] [address] [place] [phone] 09/04/2024 Brandt Villegas Jr PLAN OF TREATMENT No Information
--- NOTE | 2024-09-27 12:50 | PC.NURSE ---
Using 3 [address] phone call with interprter daughter notified that patient was seen in the ED for bleeding from fistula site. Daughter aware bleeding has stopped and patient will be discharged home. Daughter confirmed address of [address] [place] [address] and stated her cousin will be there to let patient in
[2024-09-27 14:37] VITALS: BP 187/72; PULSE 61; RESP 12; TEMP 36.8; O2SAT 100
== END 2024-09-27 14:37 | disposition home or self-care (01) ==
PROVIDERS: Emergency Provider Emergency Medicine; PCP Family Medicine
DX: T82.838A Hemorrhage due to vascular prosthetic devices, implants and grafts, initial encounter (principal); Y82.8 Other medical devices associated with adverse incidents; Y92.9 Unspecified place or not applicable; Z79.899 Other long term (current) drug therapy
CPT/HCPCS: 99282; 99283

== ENCOUNTER 2024-10-02 14:33 | Outpatient (AMB) | payer OTHER, SELFPAY ==
--- NOTE | 2024-10-02 14:45 | MHC.OFFVIS ---
Vital Signs 10/02/24 14:48 Height 5 ft 4 in Weight 119 lb 7.849 oz BMI 20.5 BP 154/68 H Blood Pressure Location Rt brachial Position Sitting Pulse 60 Pulse Source Pulse Oximeter Intake Visit Reasons: ACS (acute coronary syndrome) Intake Note: ACS F/up Ssrs Report Developer Required: Yes Ssrs Report Developer Language: Cow Puncher Name: voice/vincentian/Sharmin [id number] Accompanied by: Self / Same As Patient Allergies No Known Allergies Allergy (Verified 09/27/24 10:48) Medication List - Last Reconciled 10/02/24 by Harsha Sinha NP acetaminophen 1,000 mg PO Q8H PRN amlodipine 10 mg PO DAILY 90 days ascorbic acid (vitamin C) (Vitamin C) 1 tab PO DAILY aspirin 81 mg PO DAILY 90 days atorvastatin 80 mg PO BEDTIME budesonide-formoterol 80-4.5 mcg/actuation (Symbicort) 2 puffs inhalation BID calcitriol 0.75 mcg PO TUTHSA carvedilol 3.125 mg PO BID cholecalciferol (vitamin D3) 25 mcg PO DAILY cinacalcet 30 mg PO DAILY clotrimazole 1% 1 appl topical BID diclofenac sodium 1% 1 g topical TID PRN docusate sodium 100 mg PO BID PRN evolocumab (Repatha SureClick) 140 mg subcut Q2W 90 days ezetimibe 10 mg PO DAILY furosemide 120 mg (3 x 40 mg) PO BID hydralazine 50 mg PO TID insulin aspart U-100 (Novolog FlexPen U-100 Insulin aspart) See Protocol sliding scale doses subcut BIDAC insulin aspart U-100 (Novolog FlexPen U-100 Insulin aspart) 3 units subcut DAILY@1200 insulin glargine (Lantus Solostar U-100 Insulin) 8 units subcut DAILY insulin glargine (Lantus U-100 Insulin) 7 units subcut BEDTIME isosorbide mononitrate ER 30 mg PO DAILY melatonin 5 mg PO BEDTIME montelukast 10 mg PO BEDTIME pantoprazole 40 mg PO BID polyethylene glycol 3350 17 grams PO BID PRN sennosides (senna) 17.2 mg PO BEDTIME PRN sertraline 150 mg PO DAILY sevelamer carbonate 800 mg PO TIDWM@0800,1200,1700 ticagrelor (Brilinta) 90 mg PO BID HPI Comments Details: This is a 69-year-old female patient with a history of hypertension, hyperlipidemia, diabetes, sleep apnea, coronary artery disease status post CABG in 2018, recent PCI in 08/01/24, aortic stenosis, and end-stage renal disease, presenting for a follow-up visit. The patient is accompanied by her daughter and the visit was conducted with the assistance of a porter luggage. The patient initially presented [facility] in early July with chest tightness and underwent cardiac catheterization which revealed diffuse RCA disease and severe left main to ramus stenosis, this was treated with drug-eluting stent. She then returned to [facility] for further chest tightness and was transferred back to [facility] where she was medically managed and subsequently discharged home. The patient later again presented to [facility] with anemia hemoglobin of 6 due to black stools. Explained the recommendation of the doctor who did the PCI, her aspirin was temporarily held for a few days. Patient received blood transfusion and underwent an EGD which showed gastritis/duodenitis. She was then discharged home after stabilization. At today's visit, the patient reports intermittent chest pressure, which is random in nature, but denies any associated symptoms, including shortness of breath, palpitations, dizziness, fatigue, orthopnea, PND, leg edema, presyncope, or syncope. The patient and his daughter was uncertain of the medications today, in the medication was reconciled with the pharmacy. According to the pharmacy, the patient stopped taking hydralazine for unclear reason. 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 End stage chronic kidney disease Edema Atherosclerotic cardiovascular disease SHELIA (obstructive sleep apnea) Hypercalcemia Asthma DJD (degenerative joint disease) Chronic kidney disease Other and unspecified hyperlipidemia Type 2 diabetes mellitus with unspecified complications Essential hypertension Surgical History History of hemorrhoidectomy (01/30/23) H/O colonoscopy Hemorrhoids H/O angioplasty History of tubal ligation History of coronary artery bypass graft (~2018) Family History Father Cardiovascular disease Hypertension Mother Cardiovascular disease Hypertension Social History Household Members: Children Household Members Other:: son Housing: House Housing Other:: senior apartment Are you a primary adult caregiver to a significant other at home: No Do you presently have visiting nurse or other home services: Yes ([facility]) Alcohol intake: never Patient Tobacco Use Status: Never used Tobacco Advance Directives Date on File: 12/03/20 service: No 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al status: disabled 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 Female Reproductive History Menstrual Age of Menarche: 12 Review of Systems Const Denies chills, Denies fatigue, Denies fever(s), Denies frequent falls, Denies weakness, Denies weight gain and Denies weight loss ENT Denies dizziness Card Denies chest pain, Denies leg edema, Denies lightheadedness, Denies palpitations, Denies dyspnea and Denies dyspnea on exertion Resp Denies cough, Denies dyspnea and Denies dyspnea on exertion GI Denies hematochezia Musc Denies abnormal gait, Denies muscle weakness, Denies numbness, Denies radiating pain into limb and Denies tingling Neuro Denies abnormal gait, Denies dizziness, Denies frequent falls, Denies numbness, Denies tingling and Denies weakness Endo Denies fatigue and Denies palpitations Physical Exam Vital Signs: Last Vital Signs Pulse 60 10/02/24 14:48 BP 154/68 H 10/02/24 14:48 BMI result Body Mass Index 20.5 Const General: cooperative, healthy appearing, comfortable and no acute distress Orientation/consciousness: patient oriented x3 HEENT Head: Yes normal to inspection Neck Neck: Yes normal visual inspection, Yes trachea midline and Yes supple Chest Chest palpation & inspection: normal inspection of the chest Resp Effort & Inspection: normal respiratory effort Auscultation: clear to auscultation bilaterally, no crackles, no rales, no rhonchi and no wheezes Cardio Jugular venous distension: no JVD Palpation: normal PMI Rate: regular rate Rhythm: regular rhythm Heart sounds: S1 normal heart sound present, S2 normal heart sound present, no click, no gallops, Murmur heart sound present systolic at the right sternal border and no rubs Peripheral pulses: Peripheral pulses 2+ throughout GI Inspection: Yes normal to inspection Palpation (GI): Soft to palpation Auscultation: normal bowel sounds Skin General skin exam: no rashes or lesions noted Neuro General: patient oriented x3 Extrem General: Yes normal to inspection, No no pedal edema and No calf tenderness Psych Appearance: grossly normal Mental Status: mental status grossly normal Speech and movement: Normal speech and movement present Assessment & Plan Assessment & Plan (1) Essential hypertension: Code(s): I10 - Essential (primary) hypertension Category: Medical Plan: Blood pressure today was elevated rechecked by me and was still elevated. For some reason patient stopped taking her hydralazine per pharmacy. Patient's heart rate on the lower side, will be careful with beta maria titration. We will restart her hydralazine 25 mg t.i.d.. We can titrate up as needed. I will titrate Imdur up to 60 mg daily to see if there is any improvement in symptoms of the chest pressure. Advised patient to monitor her blood pressures at home. Ideally blood pressure goal for patient less than 130/80. Advised to keep a log of it and to bring her blood pressure cuff next visit in a month. (2) Atherosclerotic cardiovascular disease: Comment: w/CABG 2017 Code(s): I25.10 - Atherosclerotic heart disease of [place] coronary artery without angina pectoris Category: Medical Plan: Continue Repatha, high-dose statin therapy, Zetia. LDL goal less than 70. We will repeat labs. (3) S/P cardiac cath: Code(s): Z98.890 - Other specified postprocedural states Category: Surgical Plan: Continue lifelong aspirin therapy. Continue uninterrupted Brilinta therapy for at least 12 months. No reports of signs of bleeding. (4) ESRD (end stage renal disease) on dialysis: Comment: PATIENT WITH CHRONIC END-STAGE RENAL FAILURE, ON DIALYSIS PROGRAM AND DOING WELL Code(s): N18.6 - End stage renal disease; Z99.2 - Dependence on renal dialysis Category: Medical Plan: On dialysis, followed by Nephrology. (5) Type 2 diabetes mellitus with unspecified complications: Code(s): E11.8 - Type 2 diabetes mellitus with unspecified complications Category: Medical Plan: Continue aggressive management of diabetes. Ideally A1c goal less than 7.0. (6) Hospital discharge follow-up: Code(s): Z09 - Encounter for follow-up examination after completed treatment for conditions other than malignant neoplasm Plan: As above. Advised heart healthy diet, regular exercise as tolerated, and aggressive management of vascular risk factors. Emphasized on medication compliance. Follow-up in 1 month. In the interim, patient will call us with any questions or change in symptoms. Advised patient to seek ER care in case of exertional chest pain not resolved with rest. This note was generated using voice recognition software. While every effort has been made to ensure accuracy and proper cylinder press feeder, there may be occasional errors that could affect the content or meaning of the described symptoms. Orders: Orders CA echo transthoracic complete Today I35.0 - Nonrheumatic aortic (valve) stenosis Lipid Panel 3 Months I25.10 - Atherosclerotic heart disease of [place] coronary artery without angina pectoris Complete Blood Count no Diff 3 Months I25.10 - Atherosclerotic heart disease of [place] coronary artery without angina pectoris Basic Metabolic Panel 3 Months I10 - Essential (primary) hypertension Medications: New hydralazine 25 mg PO TID 90 tabs 1RF Changed From furosemide 120 mg (3 x 40 mg) PO BID 240 tabs 2RF To furosemide 80 mg (2 x 40 mg) PO BID 240 tabs 2RF From isosorbide mononitrate ER 30 mg PO DAILY To isosorbide mononitrate ER 60 mg PO DAILY Coding Level of Care Code Est Pt Level 4 (01149) Complex EM visit Add On G2211 Diagnoses Essential hypertension I10 Atherosclerotic cardiovascular disease I25.10 S/P cardiac cath Z98.890 ESRD (end stage renal disease) on dialysis N18.6; Z99.2 Type 2 diabetes mellitus with unspecified complications E11.8 Hospital discharge follow-up Z09 Time Spent (min) 37 Comment Time spent in reviewing the chart, test results, assessment, counseling and documentation.
[2024-10-02 14:48] VITALS: BP 154/68; PULSE 60; BMI 20.5
--- OUTSIDE RECORDS SUMMARY | 2024-10-02 17:33 | XMS_ITS ---
Author Organization [facility] Address [address] [place] [address] Care Team Providers Care Imaging Specialist Name Role Phone Juan Jose DELGADILLO, Patricia Primary Care Provider Brandt Collazo Jr REASON FOR VISIT GI bleed Encounters Encounter Location Date Provider Diagnosis [facility] Inpatient [address] [place], [place] [phone] 08/28/2024 Brandt Villegas Jr Plan Of Treatment No Information Progress Notes * CARL HASSANDOB:1955 (69 yo F)Acc No.[id number]:08/28/2024 EGD/MAC Patient:?SONYA CARL Provider:?Brandt Villegas MD :1955???Age:69 Y???Sex:Female D ate:08/28/2024 Address:[address] [place], [place] [id number] Pcp:Patricia Ingram MD Subjective: * Chief Complaints: * ???1. GI bleed. * Medical History:? Objective: * Vitals:? Assessment: Plan: * Treatment: * * The named appointment provid er may or may not be the originator of this progress note, and it is not deemed complete until electronically signed by the appointment provider. Sign off status: Pending * Provider:?Brandt Villegas MD Date:?0 08/28/2024 Generated for Dia davis/Glynn/eTgilsmitting on:?10/02/2024 05:33 PM EST
--- OUTSIDE RECORDS SUMMARY | 2024-10-02 17:33 | XMS_ITS | Encounter Summary ---
Author Organization [facility] Address [address] [facility] [address] [place] [address] Phone Care Team Providers Care Botany Technician Name Role Phone Patricia Ingram MD Primary Care Provider [phone] Encounter Details Date Type Department Care Team (Late st Contact Info) Description 09/12/2024 Treatment [facility] [address] [address] Richard Alatorre MD [address] [address] Social History Tobacco Use Types [...] care for end stage renal disease. Attending District Plant Superintendent: RICHARD ALATORRE MD Dialysis Location: [facility] Schedule: Shift: 2 HOME MEDICATIONS Current [facility] Outpatient Medications ACETAMINOPHEN EXTRA STRENGTH [...] on filedocumented in this encounter Care Teams Botany Technician Relationship Specialty Start Date End Date Patricia Ingram MD [address] [place] [address] PCP - General 08/10/20 documented as of this encounter
--- OUTSIDE RECORDS SUMMARY | 2024-10-02 17:33 | XMS_ITS | Encounter Summary ---
Author Organization [facility] Address [address] [facility] [address] [place] [address] Phone Care Team Providers Care Senior Manager Creative Services Name Role Phone Patricia Ingram MD Primary Care Provider [phone] Encounter Details Date Type Department Care Team (Late st Contact Info) Description 09/10/2024 Treatment [facility] [address] [address] Richard Alatorre MD [address] [address] Social History Tobacco Use Types [...] care for end stage renal disease. Attending Outdoor Landscape Architect: RICHARD ALATORRE MD Dialysis Location: [facility] Schedule: Shift: 2 HOME MEDICATIONS Current [facility] Outpatient Medications ACETAMINOPHEN EXTRA STRENGTH 500 MG [...] on filedocumented in this encounter Care Teams Senior Manager Creative Services Relationship Specialty Start Date End Date Patricia Ingram MD [address] [place] [address] PCP - General 08/10/20 documented as of this encounter
--- OUTSIDE RECORDS SUMMARY | 2024-10-02 17:33 | XMS_ITS | Encounter Summary ---
Author Organization [facility] Address [address] [facility] [address] [place] [address] Phone Care Team Providers Care Hat Finisher Name Role Phone Patricia Ingram MD Primary Care Provider [phone] Reason for Visit * Reason Comments Med Refill Encounter Details Date Type Department Care Team (Late st Contact Info) Description 11/08/2022 Refill [facility] [address] [place] [phone] Feliciano Baldwin MD Social History Tobacco Use [...] on filedocumented in this encounter Care Teams Hat Finisher Relationship Specialty Start Date End Date Patricia Ingram MD [address] [place] [address] PCP - General 08/10/20 documented as of this encounter
--- OUTSIDE RECORDS SUMMARY | 2024-10-02 17:33 | XMS_ITS | Encounter Summary ---
Author Organization [facility] Address [address] [facility] [address] [place] [address] Phone Care Team Providers Care Career Development Coordinator/Teacher Name Role Phone Patricia Ingram MD Primary Care Provider [phone] Encounter Details Date Type Department Care Team (Late st Contact Info) Description 10/01/2024 Treatment [facility] [address] [address] Richard Alatorre MD [address] [address] End stage renal disease; Dependence on renal dialysis Social History Tobacco Use Types Packs/Day Years [...] Dialysis Note - Richard Alatorre MD - 10/01/2024 12:00 AM EST Patient: Kavitha Padilla : 1955 Note Type: Dialysis Rounds-Comp Service Date: 10/01/2024 This patient was personally seen for a complete visit as part of routine monthly dialysis care for end stage renal disease. Attending Frit Mixer: RICHARD ALATORRE MD Dialysis Location: [facility] Schedule: Shift: 2 OVERVIEW Patient is stable. HOME MEDICATIONS Medications reviewed. Current [facility] Outpatient Medications ACETAMINOPHEN EXTRA STRENGTH [...] No Known Allergies BP AND FLUID ASSESSMENT High blood pressure. Fluid status acceptable. ADEQUACY ASSESSMENT Target met. Prescription compliance acceptable. Continue with greater than 3x more frequent dialysis prescription. Kt/V, Natural Log 1.74 (09/05/24) 1.76 (08/08/24) 1.76 (07/04/24) UREA REDUCTION RATIO (%) 78 (09/05/24) 78 (08/08/24) 79 (07/04/24) BUN 36 (09/05/24) 36 (08/08/24) 39 (07/04/24) BUN Post Dialysis 8 (09/05/24) 8 (08/08/24) 8 (07/04/24) Creatinine 6.37 (09/05/24) 7.12 (08/08/24) 7.13 (07/04/24) Bicarbonate (CO2) 26 (09/05/24) 27 (08/08/24) 28 (07/04/24) Sodium 141 (09/05/24) 139 (08/08/24) 138 (07/04/24) ACCESS ASSESSMENT Vascular access examined. ANEMIA ASSESSMENT ELYSSA adjusted per protocol. Iron adjusted per protocol. Hgb 9.0 (09/19/24) 9.1 (09/05/24) 7.6 (08/22/24) Iron Saturation (TSat) 45 (09/05/24) 82 (08/08/24) 20 (07/04/24) Ferritin 1,466 (09/05/24) 1,816 (08/08/24) 1,016 (07/04/24) Iron 80 (09/05/24) 142 (08/08/24) 37 (07/04/24) TIBC 176 (09/05/24) 174 (08/08/24) 185 (07/04/24) MCV 92.7 (09/05/24) 90.9 (07/04/24) 92.8 (06/06/24) Platelets 179 (09/05/24) 246 (07/04/24) 258 (06/06/24) BMM ASSESSMENT Bone and mineral metabolism parameters reviewed. Calcium, Adjusted Total 10.0 09/05/24 9.1 08/08/24 10.1 07/04/24 Calcium 9.9 09/05/24 9.1 08/08/24 10.1 07/04/24 Phosphorus, Serum 4.3 09/05/24 3.6 08/08/24 4.8 07/04/24 Ca*PO4 42.6 09/05/24 32.8 08/08/24 48.5 07/04/24 PTH, Intact 1,440 09/05/24 376 08/08/24 1,246 07/04/24 Magnesium 2.1 09/05/24 2.7 08/08/24 2.4 07/04/24 Alkaline Phosphatase 106 09/05/24 116 08/08/24 106 07/04/24 Aluminum 3 08/08/24 NUTRITION ASSESSMENT Albumin at goal. Albumin 3.9 09/05/24 4.3 08/08/24 4.1 07/04/24 Potassium 4.3 09/05/24 4.2 08/08/24 4.7 07/11/24 Hemoglobin A1C 5.8 08/08/24 PHYSICAL EXAM Exam not performed. ADDITIONAL LABS White Blood Cells 5.3 (09/05/24) 5.2 (07/04/24) 5.2 (06/06/24) Cholesterol 110 (08/08/24) HDL 51 (08/08/24) LDL-Calc 39 (08/08/24) Triglycerides 100 (08/08/24) Hep B Surface Antibody 31 (08/08/24) Uric Acid 4.4 (08/08/24) Signed by: RICHARD ALATORRE MD on 10/01/2024 at 12:34:21 PM documented in this encounter Plan of Treatment Not on file documented as of this encounter Visit Diagnoses Diagnosis End stage renal disease Dependence on renal dialysis documented in this encounter Care Teams Career Development Coordinator/Teacher Relationship Specialty Start Date End Date Patricia Ingram MD [address] [place] [address] PCP - General 08/10/20 documented as of this encounter
--- OUTSIDE RECORDS SUMMARY | 2024-10-02 17:33 | XMS_ITS | Encounter Summary ---
Author Organization [facility] Address [address] [facility] [address] [place] [address] Phone Care Team Providers Care Equipment Validation Engineer Name Role Phone Patricia Ingram MD Primary Care Provider [phone] Encounter Details Date Type Department Care Team (Late st Contact Info) Description 09/05/2024 Orders Only [facility] P. [address] [address] Driss Alatorre MD [address] [address] Social History Tobacco Use Types [...] ORDERABLES Final Resul t Performing Organization Address City/[facility] Co de Phone Number [facility] [address] [place] [address] * (ABNORMAL) TSAT (09/05/2024 3:00 AM EST) Iron 80 50 - 170 ug/dL [facility] Transferrin 126(L) 250 - 380 mg/dL [facility] TIBC 176(L) 211 - 406 ug/dL [facility] Iron Saturation (TSat) 45 22 - 52 % [facility] 09/05/2024 3:00 AM EST 09/06/2024 2:27 PM EST us Driss Alatorre MD LAB BLOOD ORDERABLES Final Resul t Performing Organization Address [facility] Phone Number [facility] [address] [place] [address] * Protein, total (09/05/2024 3:00 AM EST) Total Protein 6.6 6.4 - 8.9 g/dL [facility] 09/05/2024 3:00 AM EST 09/06/2024 2:27 PM EST us Driss Alatorre MD LAB BLOOD ORDERABLES Final Resul t Performing Organization Address [facility] de Phone Number [facility] [address] [place] [address] * Magnesium (09/05/2024 3:00 AM EST) Magnesium 2.1 1.9 - 2.7 mg/dL [facility] 09/05/2024 3:00 AM EST 09/06/2024 2:27 PM EST us Driss Alatorre MD LAB BLOOD ORDERABLES Final Resul t Performing Organization Address [facility] Co de Phone Number [facility] [address] [place] [address] * Electrolyte panel (09/05/2024 3:00 AM EST) [...] ORDERABLES Final Resul t Performing Organization Address [facility] de Phone Number [facility] [address] [place] [address] * LIH (09/05/2024 3:00 AM EST) Lipemia Normal Normal [facility] Icterus Normal Normal [facility] Hemolysis Normal Normal [facility] 09/05/2024 3:00 AM EST 09/06/2024 2:27 PM EST us Driss Alatorre MD LAB [id number] ICITED RESULTS Final Result Performing Organization Address [facility] de Phone Number [facility] [address] [place] [address] * (ABNORMAL) Glucose, random (09/05/2024 3:00 AM EST) Glucose 224(H) 74 - 109 mg/dL [facility] 09/05/2024 3:00 AM EST 09/06/2024 2:27 PM EST us Driss Alatorre MD LAB BLOOD ORDERABLES Final Resul t Performing Organization Address [facility] de Phone Number [facility] [address] [place] [address] * Lactate dehydrogenase (09/05/2024 3:00 AM EST) LDH 174 120 - 246 U/L [facility] 09/05/2024 3:00 AM EST 09/06/2024 2:27 PM EST us Driss Alatorre MD LAB BLOOD ORDERABLES Final Resul t Performing Organization Address [facility] de Phone Number [facility] [address] [place] [address] * (ABNORMAL) Creatinine, serum (09/05/2024 3:00 AM EST) Creatinine 6.37(H) 0.55 - 1.02 mg/dL [facility] 09/05/2024 3:00 AM EST 09/06/2024 2:27 PM EST us Driss Alatorre MD LAB BLOOD ORDERABLES Final Resul t Performing Organization Address [facility] Phone Number [facility] [address] [address] * (ABNORMAL) Bilirubin, total (09/05/2024 3:00 AM EST) Total Bilirubin 0.2(L) 0.3 - 1.2 mg/dL [facility] 09/05/2024 3:00 AM EST 09/06/2024 2:27 PM EST us Driss Alatorre MD LAB BLOOD ORDERABLES Final Resul t Performing Organization Address [facility] de Phone Number [facility] [address] [address] * AST (09/05/2024 3:00 AM EST) AST (SGOT) 11 <34 U/L [facility] 09/05/2024 3:00 AM EST 09/06/2024 2:27 PM EST us Driss Alatorre MD LAB BLOOD ORDERABLES Final Resul t Performing Organization Address [facility] de Phone Number [facility] [address] [address] * (ABNORMAL) ALT (09/05/2024 3:00 AM EST) ALT (SGPT) <7(L) 10 - 49 U/L [facility] 09/05/2024 3:00 AM EST 09/06/2024 2:27 PM EST us Driss Alatorre MD LAB BLOOD ORDERABLES Final Resul t Performing Organization Address [facility] de Phone Number [facility] [address] [place] [address] * Alkaline phosphatase (09/05/2024 3:00 AM EST) Alkaline Phosphatase 106 46 - 116 U/L [facility] 09/05/2024 3:00 AM EST 09/06/2024 2:27 PM EST us Driss Alatorre MD LAB BLOOD ORDERABLES Final Resul t Performing Organization Address [facility] de Phone Number [facility] [address] [place] [address] * Calcium Phosphorus Product, Adjusted (09/05/2024 3:00 [...] PM EST us Driss Alatorre MD LAB [id number] ICITED RESULTS Final Result Performing Organization Address [facility] de Phone Number [facility] [address] [place] [address] * (ABNORMAL) Ferritin (09/05/2024 3:00 AM EST) Ferritin 1,466(H) 10 - 291 ng/mL [facility] 09/05/2024 3:00 AM EST 09/06/2024 2:27 PM EST us Driss Alatorre MD LAB BLOOD ORDERABLES Final Resul t Performing Organization Address City/[facility] Co de Phone Number [facility] [address] [place] [address] * (ABNORMAL) PTH, Intact (09/05/2024 3:00 AM EST) PTH, Intact 1,440(H) 160 - 721 pg/mL [facility] Comment: Suggested (KDIGO) ESRD maintenance range is two to nine times the upper normal limit (80.1 pg/mL) for the laboratory. 09/05/2024 3:00 AM EST 09/06/2024 2:27 PM EST Driss Alatorre MD LAB BLOOD ORDERABLES Final Resul t Performing Organization Address [facility] de Phone Number [facility] [address] [place] [address] * (ABNORMAL) CBC and Differential (09/05/2024 3:00 [...] ORDERABLES Final Resul t Performing Organization Address City/[facility] Co de Phone Number [facility] [address] [place] [address] * (ABNORMAL) Kt/V Natural Log, URR (09/05/2024 [...] 1:33 PM EST Driss Alatorre MD LAB [id number] ICITED RESULTS Final Result Performing Organization Address City/[facility] Co de Phone Number [facility] [address] [place] [address] documented in this encounter Visit Diagnoses Not on filedocumented in this encounter Care Teams Equipment Validation Engineer Relationship Specialty Start Date End Date Patricia Ingram MD [address] [place] [address] PCP - General 08/10/20 documented as of this encounter
--- OUTSIDE RECORDS SUMMARY | 2024-10-02 17:33 | XMS_ITS | Encounter Summary ---
Author Organization [facility] [address] [facility] [address] [place] [address] Phone Care Team Providers Care Portrait Painter Name Role Phone Patricia Ingram MD Primary Care Provider [phone] Reason for Visit * Reason Comments Med Refill Encounter Details Date Type Department Care Team ([facility] st Contact Info) Description 09/07/2021 Refill [facility] [address] [place] [phone] Yared Powell MD [address] [facility] [address] [place] [address] Social History Tobacco Use Types [...] on filedocumented in this encounter Care Teams Portrait Painter Relationship Specialty Start Date End Date Patricia Ingram MD [address] [place] [address] PCP - General 08/10/20 documented as of this encounter
--- OUTSIDE RECORDS SUMMARY | 2024-10-02 17:33 | XMS_ITS | Encounter Summary ---
Author Organization [facility] Address [address] [facility] [address] [place] [address] Phone Care Team Providers Care Health Promotion Specialist Name Role Phone Patricia Ingram MD Primary Care Provider [phone] Encounter Details Date Type Department Care Team (Late st Contact Info) Description 09/17/2024 Treatment [facility] P. [address] [address] Richard Alatorre MD [address] [address] Social History Tobacco Use Types [...] care for end stage renal disease. Attending Fastener Sewing Machine Operator: RICHARD ALATORRE MD Dialysis Location: [facility] Schedule: Shift: 2 HOME MEDICATIONS Current [facility] Outpatient Medications ACETAMINOPHEN EXTRA STRENGTH [...] on filedocumented in this encounter Care Teams Health Promotion Specialist Relationship Specialty Start Date End Date Patricia Ingram MD [address] [place] [address] PCP - General 08/10/20 documented as of this encounter
--- OUTSIDE RECORDS SUMMARY | 2024-10-02 17:33 | XMS_ITS | Encounter Summary ---
Author Organization [facility] Address [address] [facility] [address] [place] [address] Phone Care Team Providers Care Auto Clutch Specialist Name Role Phone Patricia Ingram MD Primary Care Provider [phone] Reason for Visit * Reason Comments Med Refill Encounter Details Date Type Department Care Team (Late st Contact Info) Description 09/07/2022 Refill [facility] [address] [place] [phone] Kentrell Leos MD Social History Tobacco Use [...] on filedocumented in this encounter Care Teams Auto Clutch Specialist Relationship Specialty Start Date End Date Patricia Ingram MD [address] [place] [address] PCP - General 08/10/20 documented as of this encounter
--- OUTSIDE RECORDS SUMMARY | 2024-10-02 17:33 | XMS_ITS | Patient Health Record ---
Author Organization [facility] Address [address] [place] [address] Care Team Providers Care Industrial Sociologist Name Role Phone Juan Jose DELGADILLO, Patricia Primary Care Provider Brandt Collazo Jr Unavailable Results Component Value Reference Range Notes Type and Screen Reviewed date:08/29/2024 10:35:21 AM Interpretation: Performing Lab:[facility], [address] [place] [phone] Notes/Report: Results at Issue Units as of [...] Cells Reviewed date:08/29/2024 10:35:28 AM Interpretation: Performing Lab:[facility], [address] [place] [phone] Notes/Report: Red Blood Cells [id number] OP RC Red Blood Cells NOT AVAILABLE Red Blood Cells [id number] OP RC Red Blood Cells TRANSFUSED 08/26/24 0454 Red Blood Cells [id number] BP RC Red Blood Cells TRANSFUSED 08/26/24 1500 Complete Blood Count no Diff Reviewed date:08/28/2024 07:49:19 AM Interpretation: Performing Lab:[facility], [address] [place] [phone] Notes/Report: White Blood Count 5.1 4.8-10.8 X10*3/uL [...] Pathology Reviewed date:09/04/2024 08:03:17 AM Interpretation: Performing Lab:[facility], [address] [place] [phone] Notes/Report: -- Name: Kavitha Hassan Age/Sex: 69/F : 1955 Unit#: [id number] Attend Dr: Romina Fortune MD Re08/26/24 Status : DIS IN Location: [facility] 483-1 Disch: 08/29/24 -- SPEC : [id number] RECD: 08/29/24 STATUS: JERRY REAlexandra NUM: [id number] JOSE ALFREDO: 08/28/24-1424 [facility] [address]: Brandt Villegas MD ENTERED: 08/29/24 49 SP TYPE: Surgical OTHR DR: Romina Fortune MD, Nao MD ORDERED: HE Stain/3, Gross Micro L4, IHC, Special st. 2, H. pylori, AB/PAS Diagnosis Stomach, antrum, bio psy: Gastric antral mucosa with mild reactive gastropathy; negative for Helicobacter pyl amanda, intestinal metaplasia and dysplasia. Clinical History Pre-Op Dx: Symptomat ic anemia, chest pain Post-Op Dx: Duodenitis Microscopic Description A. Microscopic secti ons examined. No metaplastic changes are seen, supported by AB/PAS stains (A); no Helic obacter organisms are seen, supported by H. pylori immunostain (A). Material Received Antrum bx Gross Description Received in formalin labeled ?antrum biopsy? are 2 fragments of calderon-white soft tissue measuring 0.2 and 0. 4 cm in greatest dimension which are wrapped in lens paper and entirely submitted for micros copic examination, 2 pieces in cassette [facility] Special stains order ed and performed: A/B PAS on A; immunostain for H pylori on A. Copies To: Brandt Villegas MD [facility] [address] [place] [address] Romina Fortune MD [address] [place] [address] CONTINUED ON NEXT PAGE -- Name: RandyKavitha Age/Sex: 69/F : 1955 Unit#: [id number] Attend Dr: Romina Fortune MD Re08/26/24 Status : DIS IN Location: [facility] 483-1 Disch: 08/29/24 -- SPEC : [id number] RECD: 08/29/24 STATUS: JERRY ALEMAN: [id number] JOSE ALFREDO: 08/28/24-1424 [facility] [address]: Brandt Villegas MD ENTERED: 08/29/24- 49 SP TYPE: Surgical OTHR DR: Romina Fortune MD, Nao MD ORDERED: HE Stain/3, Gross Micro L4, IHC, Special st. 2, H. pylori, AB/PAS Copies To: (Continued) Patricia Ingram MD [address] [address] -- Signed (si gnature on file) Luci Alvarado MD 08/30/24 3245 -- END OF REPORT Reason For Referral No Information Medications Medication SIG (Take, Route, Frequency, Duration) Notes [...] one day for 1 day 04/21/2023 Active Encounters Encounter Location Date Provider Diagnosis [facility] Inpatient [address] [place] [phone] 08/28/2024 Brandt Villegas Jr [facility] [address] [place] [address] 09/04/2024 Brandt Villegas Jr Plan Of Treatment No Information Insurance Providers Payer Name Payer Address Payer Phone Subscriber Number Group Number Insured Name Patient Relationship to Insured Coverage Start Date Coverage End Date [facility] [address] Attn Claims [place] [address] [id number] KAVITHA HASSAN Self - patient is the insured
--- OUTSIDE RECORDS SUMMARY | 2024-10-02 17:34 | XMS_ITS ---
Author Organization [facility] Address [address] [place] [address] Care Team Providers Care Family Law Specialist Name Role Phone Juan Jose DELGADILLO, Patricia Primary Care Provider Bradford Villegas Jr, Brandt Lyle REASON FOR VISIT please send dismissal letter Encounters Encounter Location Date Provider Diagnosis [facility] [address] [place] [address] 08/07/2023 Brandt Villegas Jr Plan Of Treatment No Information Progress Notes * MISSY HASSANOB:1955 ( 68 yo F)Acc No.[id number]:08/07/2023 Patient:?SONYALYRICMichael :1955???Age:68 Y???Sex:Female Address:[address] [place] [address] [place] [address], [address] * true * Date:? Generated for Dia davis/Glynn/eTransmitting on:?10/02/2024 05:33 PM EST
--- OUTSIDE RECORDS SUMMARY | 2024-10-02 17:34 | XMS_ITS ---
Author Organization [facility] Address [address] [place] [address] Care Team Providers Care City Driver Name Role Phone Juan Jose DELGADILLO, Patricia Primary Care Provider Bradford Villegas Jr, Brandt Lyle REASON FOR VISIT pathology Encounters Encounter Location Date Provider Diagnosis [facility] [address] [place] [address] 09/04/2024 Brandt Villegas Jr Plan Of Treatment No Information Progress Notes * CARL HASSANDOB:1955 (69 yo F)Acc No.[id number]:09/04/2024 Patient:?CARL HASSAN :1955???Age:69 Y???Sex:Female Address:[address] [place] [address] [address], [place], [address] * true * Date:? Generated for Dia davis/Glnyn/eTransmitting on:?10/02/2024 05:33 PM EST
--- OUTSIDE RECORDS SUMMARY | 2024-10-02 17:34 | XMS_ITS | Encounter Summary ---
Author Organization [facility] Address [address] [facility] [address] [place] [address] Phone Care Team Providers Care Job Forwarder Name Role Phone Patricia Ingram MD Primary Care Provider [phone] Encounter Details Date Type Department Care Team (Late st Contact Info) Description 09/03/2024 Treatment [facility] P. [address] [address] Richard Alatorre MD [address] [address] Social History Tobacco Use Types [...] care for end stage renal disease. Attending Content Specialist: RICHARD ALATORRE MD Dialysis Location: [facility] Schedule: Shift: 2 OVERVIEW Patient is stable. HOME MEDICATIONS Medications reviewed. Current [facility] Outpatient Medications ACETAMINOPHEN EXTRA STRENGTH 500 [...] on filedocumented in this encounter Care Teams Job Forwarder Relationship Specialty Start Date End Date Patricia Ingram MD [address] [place] [address] PCP - General 08/10/20 documented as of this encounter
--- OUTSIDE RECORDS SUMMARY | 2024-10-02 17:34 | XMS_ITS | Encounter Summary ---
[facility] Address [address] [address] Care Team Providers Care Senior Linux Administrator Name Role Phone Patricia Ingram MD Primary Care Provider [phone] Encounter Details Date Type Department Care Team (Latest Contact Info) Description 04/02/2024 Treatment Richard Alatorre MD [address] [facility] [address] [place] [phone] Social History Tobacco Use Types Packs/Day Years [...] care for end stage renal disease. Attending Back Tender: RICHARD ALATORRE MD Dialysis Location: [facility] Schedule: Shift: 2 OVERVIEW Patient is stable. HOME MEDICATIONS Medications reviewed. Current [facility] Outpatient Medications ACETAMINOPHEN EXTRA STRENGTH 500 MG [...] filedocumented in this encounter Care Teams Senior Linux Administrator Relationship Specialty Start Date End Date Patricia Ingram MD [address] [place] [address] PCP - General 08/10/20 documented as of this encounter
--- OUTSIDE RECORDS SUMMARY | 2024-10-02 17:34 | XMS_ITS | Encounter Summary ---
Author Organization [facility] [address] [facility] 200 [place] [address] Phone Care Team Providers Care Ophthalmic Photographer Name Role Phone Patricia Ingram MD Primary Care Provider [phone] Reason for Visit * Reason Comments Med Refill Encounter Details Date Type Department Care Team ([facility] st Contact Info) Description 04/29/2021 Refill [facility] [address] [place] [phone] Yared Powell MD [address] [facility] [address] [place] [address] Social History Tobacco Use Types [...] on filedocumented in this encounter Care Teams Ophthalmic Photographer Relationship Specialty Start Date End Date Patricia Ingrma MD [address] [place] [address] PCP - General 08/10/20 documented as of this encounter
--- OUTSIDE RECORDS SUMMARY | 2024-10-02 17:34 | XMS_ITS | Clinical Summary ---
Author Organization [facility] Facility Address [address] [place] [address], [place] [address] Care Team Providers Care Life Science Teacher Name Role Phone Patricia Ingram MD Primary Care Provider [phone] Allergies No known active allergies Medications amLODIPine [...] Encounters Date Type Department Care Team Description 10/01/2024 Treatment [facility] [address] [address] Driss Alatorre MD End stage renal disease; Dependence on renal dialysis 09/17/2024 Treatment [facility] [address] [address] Driss Alatorre MD 09/12/2024 Treatment [facility] [address] [address] Driss Doshi MD 09/10/2024 Treatment [facility] [address] [address] Driss Doshi MD 09/05/2024 Orders Only [facility] the [address] [address] Driss Alatorre MD 09/03/2024 Treatment [facility] [address] [address] Driss Alatorre MD 08/20/2024 Treatment [facility] [address] [address] Driss Alatorre MD 08/06/2024 Treatment [facility] [address] [address] Driss Alatorre MD 07/18/2024 Treatment [facility] [address] [address] Driss Alatorre MD 07/16/2024 Treatment [facility] [address] [address] Driss Alatorre MD 07/09/2024 Treatment [facility] [address] [address] Driss Alatorre MD from Last 3 [...] MAGNESIUM Routine 08/08/2024 3:00 AM EST LIH () Routine 08/08/2024 3:00 AM EST LACTATE DEHYDROGENASE [...] Routine 08/08/2024 3:00 AM EST COLLECTION DATE () Routine 08/08/2024 3:00 AM EST KT/V NATURAL [...] URR (HC) Routine 07/04/2024 3:00 AM EST from Last 3 Months [...] ORDERABLES Final Resul t Performing Organization Address City/[facility]/ZIP Co de Phone Number [facility] [address] [place] [address] * LIH (09/05/2024 3:00 AM EST) Only the most recent of4 resultswithin the time period is included. [facility] Lipemia Normal Normal [facility] Icterus Normal Normal [facility] Hemolysis Normal Normal [facility] 09/05/2024 3:00 AM EST 09/06/2024 2:27 PM EST us Driss Alatorre MD LAB [id number] ICITED RESULTS Final Result Performing Organization Address [facility] de Phone Number [facility] [address] [place] [address] * (ABNORMAL) Kt/V Natural Log, URR (09/05/2024 3:00 AM EST) Only the most recent of3 resultswithin the time period is included. [facility] Treatment Time 183 min [facility] Pre-Weight, lb [...] 3:00 AM EST 09/06/2024 1:33 PM EST us Driss Alatorre MD LAB [id number] ICITED RESULTS Final Result Performing Organization Address City/[facility]/ZIP Co de Phone Number [facility] [address] [place] [address] * Calcium Phosphorus Product, Adjusted (09/05/2024 3:00 [...] PM EST us Driss Alatorre MD LAB [id number] ICITED RESULTS Final Result Performing Organization Address [facility] de Phone Number [facility] [address] [place] [address] * (ABNORMAL) TSAT (09/05/2024 3:00 AM EST) [...] ORDERABLES Final Resul t Performing Organization Address City/[facility] Co de Phone Number [facility] [address] [place] [address] * (ABNORMAL) CBC and Differential (09/05/2024 3:00 AM EST) Only the most recent of2 resultswithin the time period is included. Pathologist [facility] DIFFERENTIAL MANUAL, 2 Not Indicated [facility] White [...] MD LAB BLOOD ORDERABLES Final Resul t [facility] [address] [place] [address] * (ABNORMAL) ALT (09/05/2024 3:00 AM EST) Only the most recent of3 resultswithin the time period is included. Pathologist [facility] ALT (SGPT) <7(L) 10 - 49 U/L [facility] 09/05/2024 3:00 AM EST 09/06/2024 2:27 PM EST us Driss Alatorre MD LAB BLOOD ORDERABLES Final Resul t Performing Organization Address [facility] Co de Phone Number [facility] [address] [place] [address] * AST (09/05/2024 3:00 AM EST) Only the most recent of3 resultswithin the time period is included. AST (SGOT) 11 <34 U/L [facility] 09/05/2024 3:00 AM EST 09/06/2024 2:27 PM EST us Driss Alatorre MD LAB BLOOD ORDERABLES Final Resul t Performing Organization Address [facility] Phone Number [facility] [address] [place] [address] * Protein, total (09/05/2024 3:00 AM EST) Only the most recent of3 resultswithin the time period is included. Total Protein 6.6 6.4 - 8.9 g/dL [facility] 09/05/2024 3:00 AM EST 09/06/2024 2:27 PM EST us Driss Alatorre MD LAB BLOOD ORDERABLES Final Resul t Performing Organization Address [facility] de Phone Number [facility] [address] [place] [address] * Alkaline phosphatase (09/05/2024 3:00 AM EST) Only the most recent of3 resultswithin the time period is included. Alkaline Phosphatase 106 46 - 116 U/L [facility] 09/05/2024 3:00 AM EST 09/06/2024 2:27 PM EST us Driss Alatorre MD LAB BLOOD ORDERABLES Final Resul t Performing Organization Address [facility] Co de Phone Number [facility] [address] [place] [address] * (ABNORMAL) PTH, Intact (09/05/2024 3:00 AM [...] ORDERABLES Final Resul t Performing Organization Address City/[facility] Co de Phone Number [facility] [address] [place] [address] * Magnesium (09/05/2024 3:00 AM EST) Only the most recent of3 resultswithin the time period is included. Magnesium 2.1 1.9 - 2.7 mg/dL [facility] 09/05/2024 3:00 AM EST 09/06/2024 2:27 PM EST us Driss Alatorre MD LAB BLOOD ORDERABLES Final Resul t Performing Organization Address [facility] Co de Phone Number [facility] [address] [place] [address] * Lactate dehydrogenase (09/05/2024 3:00 AM EST) Only the most recent of3 resultswithin the time period is included. LDH 174 120 - 246 U/L [facility] 09/05/2024 3:00 AM EST 09/06/2024 2:27 PM EST us Driss Alatorre MD LAB BLOOD ORDERABLES Final Resul t Performing Organization Address [facility] Co de Phone Number [facility] [address] [place] [address] * (ABNORMAL) Glucose, random (09/05/2024 3:00 AM EST) Only the most recent of3 resultswithin the time period is included. Glucose 224(H) 74 - 109 mg/dL [facility] 09/05/2024 3:00 AM EST 09/06/2024 2:27 PM EST us Driss Alatorre MD LAB BLOOD ORDERABLES Final Resul t Performing Organization Address City/[facility] Co de Phone Number [facility] [address] [place] [address] * (ABNORMAL) Ferritin (09/05/2024 3:00 AM EST) Only the most recent of3 resultswithin the time period is included. Ferritin 1,466(H) 10 - 291 ng/mL [facility] 09/05/2024 3:00 AM EST 09/06/2024 2:27 PM EST us Driss Alatorre MD LAB BLOOD ORDERABLES Final Resul t Performing Organization Address [facility] de Phone Number [facility] [address] [place] [address] * (ABNORMAL) Creatinine, serum (09/05/2024 3:00 AM EST) Only the most recent of3 resultswithin the time period is included. Creatinine 6.37(H) 0.55 - 1.02 mg/dL [facility] 09/05/2024 3:00 AM EST 09/06/2024 2:27 PM EST us Driss Alatorre MD LAB BLOOD ORDERABLES Final Resul t Performing Organization Address [facility] de Phone Number [facility] [address] [place] [address] * (ABNORMAL) Bilirubin, total (09/05/2024 3:00 AM EST) Only the most recent of3 resultswithin the time period is included. Total Bilirubin 0.2(L) 0.3 - 1.2 mg/dL [facility] 09/05/2024 3:00 AM EST 09/06/2024 2:27 PM EST us Driss Alatorre MD LAB BLOOD ORDERABLES Final Resul t Performing Organization Address [facility] Phone Number [facility] [address] [address] * Electrolyte panel (09/05/2024 3:00 AM EST) [...] ORDERABLES Final Resul t Performing Organization Address [facility] de Phone Number [facility] [address] [place] [address] * Confirmation Test HCV (08/08/2024 3:00 AM EST) Hep C Ab Confirmation Not needed [facility] 08/08/2024 3:00 AM EST 08/12/2024 2:04 PM EST us Driss Alatorre MD LAB BLOOD ORDERABLES Final Resul t Performing Organization Address [facility] de Phone Number [facility] [address] [place] [address] * Collection Date (08/08/2024 3:00 AM EST) Collection Date See Comment [facility] Comment: Patient sample received may exceed specimen stability, based on the collection date electronically provided. ??When reviewing patient results, verify collection information and consider specimen stability before acting on any critical or panic results. 08/08/2024 3:00 AM EST us Driss Alatorre MD LAB [id number]-[id number] ICITED RESULTS Final Result Performing Organization Address [facility] Co de Phone Number [facility] [address] [place] [address] * HEPATITIS C ABS W/REFLEX RNA DETECTR (08/08/2024 3:00 AM EST) Pathologist [facility] Hep C Virus Ab Non-Reacti ve Non-Reacti ve [facility] 08/08/2024 3:00 AM EST 08/12/2024 2:07 PM EST us Driss Alatrore MD LAB [id number]-[id number] ICITED RESULTS Final Result Performing Organization Address [facility] de Phone Number [facility] [address] [place] [address] * Aluminum level (08/08/2024 3:00 AM EST) Pathologist [facility] Aluminum 3 1 - 20 ug/L [facility] 08/08/2024 3:00 AM EST 08/12/2024 2:06 PM EST us Driss Alatorre MD LAB BLOOD ORDERABLES Final Resul t Performing Organization Address [facility] de Phone Number [facility] [address] [place] [address] * Hepatitis B Surface Antibody (08/08/2024 3:00 AM EST) Pathologist [facility] Hep B Surface Antibody 31 mIU/mL [facility] Comment: Interpretation: <10: No Immunity >=10: Probable Immunity 08/08/2024 3:00 AM EST 08/12/2024 2:07 PM EST us Driss Alatorre MD LAB BLOOD ORDERABLES Final Resul t Performing Organization Address [facility] de Phone Number [facility] [address] [place] [address] * (ABNORMAL) Hemoglobin (08/08/2024 3:00 AM EST) [facility] Hgb 10.3(L) 11.2 - 15.7 g/dL [facility] Hemoglobin x 3 30.9(L) 33.6 - 47.1 g/dL [facility] 08/08/2024 3:00 AM EST 08/12/2024 2:04 PM EST us Driss Alatorre MD LAB BLOOD ORDERABLES Final Resul t Performing Organization Address [facility] de Phone Number [facility] [address] [place] [address] * Uric Acid (08/08/2024 3:00 AM EST) Uric Acid 4.4 2.3 - 6.6 mg/dL [facility] 08/08/2024 3:00 AM EST 08/12/2024 2:07 PM EST us Driss Alatorre MD LAB BLOOD ORDERABLES Final Resul t Performing Organization Address [facility] Phone Number [facility] [address] [address] * (ABNORMAL) Hemoglobin A1c (08/08/2024 3:00 AM [...] ORDERABLES Final Resul t Performing Organization Address [facility] de Phone Number [facility] [address] [place] [address] * (ABNORMAL) Lipid panel (08/08/2024 3:00 AM [...] MD LAB BLOOD ORDERABLES Final Resul t [facility] [address] [place] [address] * Potassium (07/11/2024 3:00 AM EST) Potassium 4.7 3.4 - 5.0 mEq/L [facility] 07/11/2024 3:00 AM EST 07/12/2024 12:43 PM EST us Driss Aaltorre MD LAB BLOOD ORDERABLES Final Resul t [facility] [address] [place] [address] from Last [address] [place] [place] [address] MCR ([id number]) [place] [address] ([id number]) Care Teams Life Science Teacher Relationship Specialty Start Date End Date Patricia Ingram MD [address] [place] [address] PCP - General 08/10/20
--- OUTSIDE RECORDS SUMMARY | 2024-10-02 17:34 | XMS_ITS | Encounter Summary ---
Author Organization [facility] [address] [facility] [address] [place] [address] Phone Care Team Providers Care Hybrid Tester Name Role Phone Patricia Ingram MD Primary Care Provider [phone] Encounter Details Date Type Department Care Team (Late st Contact Info) Description 12/21/2020 Orders Only [facility] [address] [place] [id number] Yared Powell MD [address] [facility] [address] [place] [address] Nephrotic range proteinuria; Renal disorder [...] osteodystrophy documented in this encounter Care Teams Hybrid Tester Relationship Specialty Start Date End Date Patricia Ingram MD [address] [place] [address] PCP - General 08/10/20 documented as of this encounter
== END 2024-10-02 15:27 | disposition home or self-care (01) ==
PROVIDERS: PCP Family Medicine
DX: I12.0 Hypertensive chronic kidney disease with stage 5 chronic kidney disease or end stage renal disease (principal); I25.10 Atherosclerotic heart disease of native coronary artery without angina pectoris; Z98.890 Other specified postprocedural states; N18.6 End stage renal disease; Z99.2 Dependence on renal dialysis; E11.8 Type 2 diabetes mellitus with unspecified complications; Z09 Encounter for follow-up examination after completed treatment for conditions other than malignant neoplasm
CPT/HCPCS: 99214; G2211

== ENCOUNTER → 2024-10-02 14:33 | Outpatient (BNVA) | payer OTHER, SELFPAY | PROVIDERS: PCP Family Medicine | DX: I10 Essential (primary) hypertension (principal); E78.5 Hyperlipidemia, unspecified; I25.10 Atherosclerotic heart disease of native coronary artery without angina pectoris; I35.0 Nonrheumatic aortic (valve) stenosis; E11.22 Type 2 diabetes mellitus with diabetic chronic kidney disease; N18.6 End stage renal disease; Z09 Encounter for follow-up examination after completed treatment for conditions other than malignant neoplasm; Z95.1 Presence of aortocoronary bypass graft; Z98.890 Other specified postprocedural states | CPT/HCPCS: 99212 ==

== ENCOUNTER 2024-10-10 08:13 | Inpatient (IN) | payer OTHER, SELFPAY ==
--- NOTE | ~2024-10-10 | CT_ITS ---
EXAMINATION: CT ABDOMEN AND PELVIS WITH CONTRAST CLINICAL INFORMATION: Nausea, vomiting, diarrhea, abdominal pain. COMPARISON: 11/16/2021. CT pelvis 02/07/2023. TECHNIQUE: Multidetector volumetric images were obtained from the superior aspect of the liver through the pubic symphysis following administration 85 mL of Omnipaque 350 intravenous contrast. Sagittal and coronal reformatted images were obtained on the technologist's workstation. Oral contrast: No This CT examination was performed using dose optimization techniques as appropriate, variously including the following: *Automated exposure control *Adjustment of mA and/or kV according to patient size (this includes techniques or standardized protocols for targeted exams where dose is matched to indication/reason for exam; i.e. extremities or head) *Use of iterative reconstruction technique FINDINGS: LUNG BASES: There is peribronchial thickening in the left lower lobe suggesting infectious or inflammatory airways disease. There is mild linear atelectasis in the left lower lobe. Lung bases otherwise clear. No effusions. There is mild cardiomegaly. There has been prior sternotomy. There are RCA calcifications. No pericardial effusion. LIVER, GALLBLADDER, AND BILIARY TREE: Liver is mildly enlarged. Normal contour. No suspicious lesion. No biliary dilatation. Patent hepatic and portal veins. The gallbladder is distended with no evidence of radiopaque gallstones, gallbladder wall thickening, or obvious pericholecystic inflammatory changes. PANCREAS: Unremarkable. SPLEEN: Borderline enlargement. ADRENAL GLANDS: Mild bilateral hyperplasia. KIDNEYS AND URETERS: The kidneys are normal in size, shape, and attenuation. Tiny bilateral renal cysts. Vascular calcifications in the hilar regions. No hydronephrosis, hydroureter, or calculi seen. No perinephric stranding. BLADDER: Suboptimally distended. Minimal diffuse wall thickening, nonspecific. GASTROINTESTINAL TRACT: There is a small type I hiatus hernia. Mild thickening of the distal esophagus suggesting possible esophagitis. The stomach is suboptimally distended although there is a suggestion of mild wall thickening suggesting gastritis. Normal duodenum. Normal small bowel. No evidence of appendicitis. Colon is mildly fluid-filled without wall thickening or inflammation. There are a few scattered diverticula. There is rectal thickening diffusely, suggesting proctitis. PERITONEUM: There is no free air or gross ascites. ABDOMINAL WALL: No significant hernia is appreciated. LYMPH NODES: None enlarged by size criteria. VASCULAR: Extensive atheromatous calcification of the major arterial vasculature. No aneurysm. PELVIC VISCERA: No adnexal masses. The uterus is mildly bulky in appearance, likely on the basis of underlying small fibroids. There are calcified vessels in the periphery of the uterus. OSSEOUS STRUCTURES: No suspicious lytic or blastic bone lesions. Mild degenerative changes in the hip joints, SI joints, and throughout the spine. CT/CT abdomen pelvis w IV con IMPRESSION: 1. Diffuse wall thickening of the rectum suggesting proctitis. 2. Mild wall thickening and enhancement of the stomach, suggesting possible gastritis. Small hiatus hernia. Possible distal esophagitis. 3. Distended but otherwise normal-appearing gallbladder. 4. Mild hepatomegaly. No intrinsic hepatic lesion. 5. Borderline splenic enlargement. 6. Mild cardiac enlargement. Prior sternotomy. Small airway thickening in the left lower lobe suggesting infectious or inflammatory airways disease. 7. Extensive vascular calcification. 8. Additional ancillary findings as discussed in the body of the report Electronically signed by: Manuelito Reid MD 10/10/2024 01:38 PM EDT
[2024-10-10 08:18] VITALS: BP 140/70; BP 197/70; PULSE 75; PULSE 85; RESP 18; TEMP 36.6; O2SAT 94; O2SAT 98; BMI 21.8
--- OUTSIDE RECORDS SUMMARY | 2024-10-10 09:11 | XMS_ITS | Patient Health Record ---
Author Organization [facility] Address [address] [place] [address] Care Team Providers Care Political Advisor Name Role Phone Juan Jose DELGADILLO, Patricia Primary Care Provider Brandt Collazo Jr Unavailable [phone] Results Component Value Reference Range Notes Type and Screen Reviewed date:08/29/2024 10:35:21 AM Interpretation: Performing Lab:[facility], [address] [place] [phone] Notes/Report: Results at Issue Units as of [...] Cells Reviewed date:08/29/2024 10:35:28 AM Interpretation: Performing Lab:[facility], [address] [place] [phone] Notes/Report: Red Blood Cells [id number] OP RC Red Blood Cells NOT AVAILABLE Red Blood Cells [id number] OP RC Red Blood Cells TRANSFUSED 08/26/24 0454 Red Blood Cells [id number] BP RC Red Blood Cells TRANSFUSED 08/26/24 1500 Complete Blood Count no Diff Reviewed date:08/28/2024 07:49:19 AM Interpretation: Performing Lab:[facility], [address] [place] [phone] Notes/Report: White Blood Count 5.1 4.8-10.8 X10*3/uL [...] Pathology Reviewed date:09/04/2024 08:03:17 AM Interpretation: Performing Lab:[facility], [address] [place] [phone] Notes/Report: -- Name: Kavitha Hassan Age/Sex: 69/F : 1955 Unit#: [id number] Attend Dr: Romina Fortune MD Re08/26/24 Status : DIS IN Location: [facility] 483-1 Disch: 08/29/24 -- SPEC : [id number] RECD: 08/29/24 STATUS: JERRY REAlexandra NUM: [id number] JOSE ALFREDO: 08/28/24-[address] [facility] [address]: Brandt Villegas MD ENTERED: 08/29/24 47 [...] copic examination, 2 pieces in cassette A. [facility] Special stains order ed and performed: A/B PAS on A; immunostain for H pylori on A. Copies To: Brandt Villegas MD [facility] [address] [place] [address] Romina Fortune MD [address] [place] [address] CONTINUED ON NEXT PAGE -- Name: SonyaKavitha Age/Sex: 69/F : 1955 Unit#: [id number] Attend Dr: Romina Fortune MD Re08/26/24 Status : DIS IN Location: [facility] 483-1 Disch: 08/29/24 -- SPEC : [id number] RECD: 08/29/24 STATUS: JERRY ALEMAN: [id number] JOSE ALFREDO: 08/28/24-[address] [facility] [address]: Brandt Villegas MD ENTERED: 08/29/24- 49 SP TYPE: Surgical OTHR DR: Romina Fortune MD, Nao MD ORDERED: HE Stain/3, Gross Micro L4, IHC, Special st. 2, H. pylori, AB/PAS Copies To: (Continued) Patricia Ingram MD [address] [address] -- Signed (si gnature on file) Luci Alvarado MD 08/30/24 2265 -- END OF REPORT Reason For Referral [...] Active Encounters Encounter Location Date Provider Diagnosis [facility] [address] [place], [place] [id number] 08/28/2024 Brandt Villegas Jr [facility] [address] [place] [address] 09/04/2024 Brandt Villegas Jr Plan Of Treatment No Information Insurance Providers Payer Name Payer Address Payer Phone Subscriber Number Group Number Insured Name Patient Relationship to Insured Coverage Start Date Coverage End Date [facility] [address] Attn Claims [place] [address] [id number] KAVITHA HASSAN Self - patient is the insured
--- OUTSIDE RECORDS SUMMARY | 2024-10-10 09:12 | XMS_ITS ---
Author Organization [facility] Address [address] [place] [address] Care Team Providers Care Welding Equipment Repairer Name Role Phone Juan Jose DELGADILLO, Patricia Primary Care Provider Bradford Villegas Jr, Brandt Lyle REASON FOR VISIT please send dismissal letter Encounters Encounter Location Date Provider Diagnosis [facility] [address] [place] [address] 08/07/2023 Brandt Villegas Jr Plan Of Treatment No Information Progress Notes * MISSY HASSANOB:1955 ( 68 yo F)Acc No.[id number]:08/07/2023 Patient:?SONYALYRICMichael :1955???Age:68 Y???Sex:Female Address:[address] [place] [address] [place] [address], [address] * true * Date:? Generated for Dia davis/Glynn/eTransmitting on:?10/10/2024 09:12 AM EDT
--- OUTSIDE RECORDS SUMMARY | 2024-10-10 09:12 | XMS_ITS | Encounter Summary ---
Author Organization [facility] Address [address] [facility] [address] [place] [address] Phone Care Team Providers Care Compensation Adjuster Name Role Phone Patricia Ingram MD Primary Care Provider [phone] Encounter Details Date Type Department Care Team (Late st Contact Info) Description 10/03/2024 Treatment [facility] P. [address] [address] Richard Alatorre MD [address] [address] End stage renal disease; Dependence [...] Dialysis Note - Richard Alatorre MD - 10/03/2024 12:00 AM EST Patient: Kavitha Padilla : 1955 Note Type: Dialysis Rounds-Basic Service Date: 10/03/2024 This patient was personally seen for a basic visit as part of routine monthly dialysis care for end stage renal disease. Attending Motor Bike Mechanic: RICHARD ALATORRE MD Dialysis Location: [facility] Schedule: Shift: 2 HOME MEDICATIONS Current [facility] Outpatient Medications ACETAMINOPHEN EXTRA STRENGTH 500 MG [...] 139 (08/08/24) 138 (07/04/24) ANEMIA ASSESSMENT Hgb 9.0 (09/19/24) 9.1 (09/05/24) 7.6 (08/22/24) [...] (08/08/24) Signed by: RICHARD ALATORRE MD on 10/03/2024 at 11:32:43 AM documented in this encounter Plan of Treatment Not on file documented as of this encounter Visit Diagnoses Diagnosis End stage renal disease Dependence on renal dialysis documented in this encounter Care Teams Compensation Adjuster Relationship Specialty Start Date End Date Patricia Ingram MD [address] [place] [address] PCP - General 08/10/20 documented as of this encounter
--- OUTSIDE RECORDS SUMMARY | 2024-10-10 09:12 | XMS_ITS ---
Author Organization [facility] Address [address] [place] [address] Care Team Providers Care Accredited Legal Secretary Name Role Phone Juan Jose DELGADILLO, Patricia Primary Care Provider Brandt Collazo Jr [phone] REASON FOR VISIT GI bleed Encounters Encounter Location Date Provider Diagnosis [facility] [address] [place], [place] [id number] 08/28/2024 Brandt Villegas Jr Plan Of Treatment No Information Progress Notes * CARL HASSANDOB:1955 (69 yo F)Acc No.[id number]:08/28/2024 EGD/MAC Patient:?SONYA CARL Provider:?Brandt Villegas MD :1955???Age:69 Y???Sex:Female D ate:08/28/2024 Address:[address] [place], [place] [id number] Pcp:Patricia Ingram MD Subjective: * Chief Complaints: [...] Villegas MD Date:?0 08/28/2024 Generated for Dia davis/Glynn/eTransmitting on:?10/10/2024 09:11 AM EDT
--- OUTSIDE RECORDS SUMMARY | 2024-10-10 09:12 | XMS_ITS | Encounter Summary ---
Author Organization [facility] Address [address] [facility] [address] [place] [address] Phone Care Team Providers Care Paraprofessional Interpreter Name Role Phone Patricia Ingram MD Primary Care Provider [phone] Encounter Details Date Type Department Care Team (Late st Contact Info) Description 10/01/2024 Treatment [facility]. [address] [address] Richard Alatorre MD [address] [address] End stage renal disease; Dependence [...] care for end stage renal disease. Attending Digital Assistant: RICHARD ALATORRE MD Dialysis Location: [facility] Schedule: Shift: 2 OVERVIEW Patient is stable. HOME MEDICATIONS Medications reviewed. Current [facility] Outpatient Medications ACETAMINOPHEN EXTRA STRENGTH [...] dialysis documented in this encounter Care Teams Paraprofessional Interpreter Relationship Specialty Start Date End Date Patricia Ingram MD [address] [place] [address] PCP - General 08/10/20 documented as of this encounter
--- OUTSIDE RECORDS SUMMARY | 2024-10-10 09:12 | XMS_ITS | Encounter Summary ---
Author Organization [facility] Address [address] [facility] [address] [place] [address] Phone Care Team Providers Care Paint Striping Machine Operator Name Role Phone Patricia Ingram MD Primary Care Provider [phone] Encounter Details Date Type Department Care Team (Late st Contact Info) Description 09/12/2024 Treatment [facility] [address]. [address] [address] Richard Alatorre MD [address] [address] Social History Tobacco Use Types [...] care for end stage renal disease. Attending Parachute Cushion Installer: RICHARD ALATORRE MD Dialysis Location: [facility] Schedule: Shift: 2 HOME MEDICATIONS Current [facility] Outpatient Medications ACETAMINOPHEN EXTRA STRENGTH [...] on filedocumented in this encounter Care Teams Paint Striping Machine Operator Relationship Specialty Start Date End Date Patricia Ingram MD [address] [place] [address] PCP - General 08/10/20 documented as of this encounter
--- OUTSIDE RECORDS SUMMARY | 2024-10-10 09:12 | XMS_ITS | Encounter Summary ---
Author Organization [facility] Address [address] [facility] [address] [place] [address] Phone Care Team Providers Care Comb Capper Name Role Phone Patricia Ingram MD Primary Care Provider [phone] Encounter Details Date Type Department Care Team (Late st Contact Info) Description 09/17/2024 Treatment [facility]. [address] [address] Richard Alatorre MD [address] [address] Social History Tobacco Use Types [...] for end stage renal disease. Attending Manager Freelance: RICHARD ALATORRE MD Dialysis Location: [facility] Schedule: Shift: 2 HOME MEDICATIONS Current [facility] Outpatient Medications ACETAMINOPHEN EXTRA [...] on filedocumented in this encounter Care Teams Comb Capper Relationship Specialty Start Date End Date Patricia Ingram MD [address] [place] [address] PCP - General 08/10/20 documented as of this encounter
--- OUTSIDE RECORDS SUMMARY | 2024-10-10 09:12 | XMS_ITS | Encounter Summary ---
Author Organization [facility] Address 100 [facility] 200 [place] [address] Phone Care Team Providers Care Grinding And Polishing Laborer Name Role Phone Patricia Ingram MD Primary Care Provider [phone] Reason for Visit * Reason Comments Med Refill Encounter Details Date Type Department Care Team (Late st Contact Info) Description 09/07/2022 Refill [facility] [address] [place] [phone] Kentrell Leos MD Social History Tobacco Use [...] on filedocumented in this encounter Care Teams Grinding And Polishing Laborer Relationship Specialty Start Date End Date Patricia Ingram MD [address] [place] [address] PCP - General 08/10/20 documented as of this encounter
--- OUTSIDE RECORDS SUMMARY | 2024-10-10 09:12 | XMS_ITS | Encounter Summary ---
Author Organization [facility] 100 [facility] 200 [place] [address] Phone Care Team Providers Care Extension Service Specialist In Charge Name Role Phone Patricia Ingram MD Primary Care Provider [phone] Reason for Visit * Reason Comments Med Refill Encounter Details Date Type Department Care Team ([facility] st Contact Info) Description 04/29/2021 Refill [facility] [address] AMA[address] [place] [phone] Yared Powell MD 3558 [facility] [address] [place] [address] Social History Tobacco Use Types [...] on filedocumented in this encounter Care Teams Extension Service Specialist In Charge Relationship Specialty Start Date End Date Patricia Ingram MD [address] [place] [address] PCP - General 08/10/20 documented as of this encounter
--- OUTSIDE RECORDS SUMMARY | 2024-10-10 09:12 | XMS_ITS | Encounter Summary ---
Author Organization [facility] 100 [facility] 200 [place] [address] Phone Care Team Providers Care Security Shift Supervisor Name Role Phone Patricia Ingram MD Primary Care Provider [phone] Reason for Visit * Reason Comments Med Refill Encounter Details Date Type Department Care Team ([facility] st Contact Info) Description 09/07/2021 Refill [facility] [address] AMA[address] [place] [phone] Yared Powell MD 355[address] [facility] 204 [place] [address] Social History Tobacco Use Types [...] on filedocumented in this encounter Care Teams Security Shift Supervisor Relationship Specialty Start Date End Date Patricia Ingram MD [address] [place] [address] PCP - General 08/10/20 documented as of this encounter
--- OUTSIDE RECORDS SUMMARY | 2024-10-10 09:12 | XMS_ITS | Encounter Summary ---
Author Organization [facility] Facility Address [address] [address] Care Team Providers Care Electrical Instrument Technician Name Role Phone Patricia Ingram MD Primary Care Provider [phone] Encounter Details Date Type Department Care Team (Latest Contact Info) Description 04/02/2024 Treatment Richard Alatorre MD 355 [facility] 204 [place] [phone] Social History Tobacco Use Types Packs/Day Years [...] care for end stage renal disease. Attending Maintenance Pipefitter: RICHARD ALATORRE MD Dialysis Location: [facility] Schedule: Shift: 2 OVERVIEW Patient is stable. HOME MEDICATIONS Medications reviewed. Current [facility] Outpatient Medications ACETAMINOPHEN EXTRA STRENGTH [...] on filedocumented in this encounter Care Teams Electrical Instrument Technician Relationship Specialty Start Date End Date Patricia Ingram MD [address] [place] [address] PCP - General 08/10/20 documented as of this encounter
--- OUTSIDE RECORDS SUMMARY | 2024-10-10 09:12 | XMS_ITS | Encounter Summary ---
Author Organization [facility] Address 35[address] [facility] 204 [place] [address] Phone Care Team Providers Care Consultant Nurse Name Role Phone Patricia Ingram MD Primary Care Provider Encounter Details Date Type Department Care Team (Late st Contact Info) Description 09/10/2024 Treatment [facility] P. [address] [phone] Richard Alatorre MD [address] [phone] Social History Tobacco Use Types [...] care for end stage renal disease. Attending Concert Promoter: RICHARD ALATORRE MD Dialysis Location: [facility] Schedule: Shift: 2 HOME MEDICATIONS Current [facility] Outpatient Medications ACETAMINOPHEN EXTRA STRENGTH [...] on filedocumented in this encounter Care Teams Consultant Nurse Relationship Specialty Start Date End Date Patricia Ingram MD [address] [place] [address] PCP - General 08/10/20 documented as of this encounter
--- OUTSIDE RECORDS SUMMARY | 2024-10-10 09:12 | XMS_ITS | Encounter Summary ---
Author Organization [facility] 100 [facility] 200 [place] [address] Phone Care Team Providers Care Shuttle Preparation Supervisor Name Role Phone Patricia Ingram MD Primary Care Provider Encounter Details Date Type Department Care Team (Late st Contact Info) Description 12/21/2020 Orders Only [facility] [address]SE [address] [place] [phone] Yared Powell MD 5435 [facility] 204 [place] [address] Nephrotic range proteinuria; Renal disorder [...] osteodystrophy documented in this encounter Care Teams Shuttle Preparation Supervisor Relationship Specialty Start Date End Date Patricia Ingram MD [address] [place] [address] PCP - General 08/10/20 documented as of this encounter
--- OUTSIDE RECORDS SUMMARY | 2024-10-10 09:12 | XMS_ITS | Encounter Summary ---
Author Organization [facility] Address [address] [facility] 200 [place] [address] Phone Care Team Providers Care Logistics Specialist Name Role Phone Patricia Ingram MD Primary Care Provider [phone] Reason for Visit * Reason Comments Med Refill Encounter Details Date Type Department Care Team (Late st Contact Info) Description 11/08/2022 Refill [facility] [address] [place] [phone] Feliciano Baldwin MD Social History Tobacco Use [...] on filedocumented in this encounter Care Teams Logistics Specialist Relationship Specialty Start Date End Date Patricia Ingram MD [address] [place] [address] PCP - General 08/10/20 documented as of this encounter
--- OUTSIDE RECORDS SUMMARY | 2024-10-10 09:12 | XMS_ITS | Encounter Summary ---
Author Organization [facility] Address 3550 [facility] 204 [place] [address] Phone Care Team Providers Care Senior Accounting Associate Name Role Phone Patricia Ingram MD Primary Care Provider [phone] Encounter Details Date Type Department Care Team (Late st Contact Info) Description 10/08/2024 Treatment [facility] P. [address] [phone] Richard Alatorre MD [address] [phone] End stage renal disease; Dependence [...] Dialysis Note - Richard Alatorre MD - 10/08/2024 12:00 AM EDT Patient: Kavitha Padilla : 1955 Note Type: Dialysis Rounds-Basic Service Date: 10/08/2024 This patient was personally seen for a basic visit as part of routine monthly dialysis care for end stage renal disease. Attending Barn Manager: RICHARD ALATORRE MD Dialysis Location: [facility] Schedule: Tu-Th-Sa Shift: 2 HOME MEDICATIONS Current [facility] Outpatient Medications ACETAMINOPHEN EXTRA STRENGTH 500 [...] Known Allergies ADEQUACY ASSESSMENT Kt/V, Natural Log 1.65 (10/03/24) 1.74 (09/05/24) 1.76 (08/08/24) UREA REDUCTION RATIO (%) 76 (10/03/24) 78 (09/05/24) 78 (08/08/24) BUN 46 (10/03/24) 36 (09/05/24) 36 (08/08/24) BUN Post Dialysis 11 (10/03/24) 8 (09/05/24) 8 (08/08/24) Creatinine 6.43 (10/03/24) 6.37 (09/05/24) 7.12 (08/08/24) Bicarbonate (CO2) 27 (10/03/24) 26 (09/05/24) 27 (08/08/24) Sodium 140 (10/03/24) 141 (09/05/24) 139 (08/08/24) ANEMIA ASSESSMENT Hgb 7.2 (10/03/24) 9.0 (09/19/24) 9.1 (09/05/24) Iron Saturation (TSat) 26 (10/03/24) 45 (09/05/24) 82 (08/08/24) Ferritin 1,373 (10/03/24) 1,466 (09/05/24) 1,816 (08/08/24) Iron 47 (10/03/24) 80 (09/05/24) 142 (08/08/24) TIBC 178 (10/03/24) 176 (09/05/24) 174 (08/08/24) MCV 93.7 (10/03/24) 92.7 (09/05/24) 90.9 (07/04/24) Platelets 192 (10/03/24) 179 (09/05/24) 246 (07/04/24) BMM ASSESSMENT Calcium, Adjusted Total 9.9 10/03/24 10.0 09/05/24 9.1 08/08/24 Calcium 9.9 10/03/24 9.9 09/05/24 9.1 08/08/24 Phosphorus, Serum 4.9 10/03/24 4.3 09/05/24 3.6 08/08/24 Ca*PO4 48.5 10/03/24 42.6 09/05/24 32.8 08/08/24 PTH, Intact 1,769 10/03/24 1,440 09/05/24 376 08/08/24 Magnesium 2.4 10/03/24 2.1 09/05/24 2.7 08/08/24 Alkaline Phosphatase 130 10/03/24 106 09/05/24 116 08/08/24 Aluminum 3 08/08/24 NUTRITION ASSESSMENT Albumin 4.2 10/03/24 3.9 09/05/24 4.3 08/08/24 Potassium 3.8 10/03/24 4.3 09/05/24 4.2 08/08/24 Hemoglobin A1C 5.8 08/08/24 ADDITIONAL LABS White Blood Cells 4.9 (10/03/24) 5.3 (09/05/24) 5.2 (07/04/24) Cholesterol 110 (08/08/24) HDL 51 (08/08/24) LDL-Calc 39 (08/08/24) Triglycerides 100 (08/08/24) Hep B Surface Antibody 31 (08/08/24) Uric Acid 4.4 (08/08/24) Signed by: RICHARD ALATORRE MD on 10/08/2024 at 01:33:25 PM documented in this encounter Plan of Treatment Not on file documented as of this encounter Visit Diagnoses Diagnosis End stage renal disease Dependence on renal dialysis documented in this encounter Care Teams Senior Accounting Associate Relationship Specialty Start Date End Date Patricia Ingram MD [address] [place] [address] PCP - General 08/10/20 documented as of this encounter
--- OUTSIDE RECORDS SUMMARY | 2024-10-10 09:12 | XMS_ITS ---
Author Organization [facility] Address [address] [place] [address] Care Team Providers Care Barrel Repairer Name Role Phone Juan Jose DELGADILLO, Patricia Primary Care Provider Bradford Villegas Jr, Brandt Lyle REASON FOR VISIT pathology Encounters Encounter Location Date Provider Diagnosis [facility] [address] [place] [phone] 09/04/2024 Brandt Villegas Jr Plan Of Treatment No Information Progress Notes * CARL HASSANDOB:1955 (69 yo F)Acc No.[id number]:09/04/2024 Patient:?CARL HASSAN :1955???Age:69 Y???Sex:Female Address:[address] [place] [address] [address], [place], [address] * true * Date:? Generated for Dia davis/Glynn/eTransmitting on:?10/10/2024 09:12 AM EDT
--- OUTSIDE RECORDS SUMMARY | 2024-10-10 09:12 | XMS_ITS | Clinical Summary ---
Author Organization [facility] Facility Address [address] [place] [address], [place] [address] Care Team Providers Care Sales Hunter Name Role Phone Patricia Ingram MD Primary Care Provider [phone] Allergies No known active allergies Medications amLODIPine [...] Encounters Date Type Department Care Team Description 10/08/2024 Treatment [facility] [address] [address] Driss Alatorre MD End stage renal disease; Dependence on renal dialysis 10/03/2024 Treatment [facility] [address] [address] Driss Alatorre MD End stage renal disease; Dependence on renal dialysis 10/01/2024 Treatment [facility] [address] [address] Driss Doshi MD End stage renal disease; Dependence on renal dialysis 09/17/2024 Treatment [facility] [address] [address] Driss Doshi MD 09/12/2024 Treatment [facility] [address] [address] Driss Doshi MD 09/10/2024 Treatment [facility] [address] [address] Driss Alatorre MD 09/05/2024 Orders Only [facility] the [address] [address] Driss Alatorre MD 09/03/2024 Treatment [facility] [address] [address] Driss Doshi MD 08/20/2024 Treatment [facility] [address] [address] Driss Alatorre MD 08/06/2024 Treatment [facility] [address] [address] Driss Alatorre MD 07/18/2024 Treatment [facility] [address] [address] Driss Alatorre MD 07/16/2024 Treatment [facility] [address] [address] Driss Alatorre MD from Last 3 Months [...] Name Priority Date/Time Associated Diagnosis Comments HEMOGLOBIN Routine 10/08/2024 3:00 AM EDT FERRITIN Routine 10/03/2024 3:00 AM EST ELECTROLYTE PANEL Routine 10/03/2024 3:0 0 AM EST PROTEIN, TOTAL, SERUM Routine 10/03/2024 3:00 AM EST TRANSFERRIN SATURATION Routine 3:00 AM EST PTH, INTACT Routine 10/03/2024 3:00 AM EST MAGNESIUM Routine 10/03/2024 3:00 AM EST GLUCOSE, RANDOM Routine 10/03/2024 3:00 AM EST LACTATE DEHYDROGENASE Routine 10/03/2024 3:00 AM EST CREATININE, SERUM Routine 10/03/2024 3:0 0 AM EST LIH () Routine 10/03/2024 3:00 AM EST AST Routine 10/03/2024 3:00 AM EST BILIRUBIN, TOTAL Routine 10/03/2024 3:00 AM EST CALCIUM PHOSPHORUS PRODUCT, ADJUSTED (HC) Routine 10/03/2024 3:00 AM EST ALT Routine 10/03/2024 3:00 AM EST ALKALINE PHOSPHATASE Routine 10/03/2024 3:00 AM EST KT/V NATURAL LOG, URR () Routine 10/03/2024 3:00 AM EST CBC AND DIFFERENTIAL Routine 10/03/2024 3:00 AM EST HEMOGLOBIN AND HEMATOCRIT, BLOOD Routine 09/19/2024 3:00 AM EST TRANSFERRIN SATURATION Routine 3:00 AM EST PROTEIN, TOTAL, SERUM Routine 09/05/2024 3:00 AM EST MAGNESIUM Routine 09/05/2024 3:00 AM EST ELECTROLYTE PANEL Routine 09/05/2024 3:0 0 AM EST LIH () Routine 09/05/2024 3:00 AM EST GLUCOSE, RANDOM [...] EST KT/V NATURAL LOG, URR (HC) Routine 08/08/2024 3:00 AM EST HEMOGLOBIN AND HEMATOCRIT, BLOOD Routine 07/18/2024 3:00 AM EST from Last 3 Months Results * (ABNORMAL) Hemoglobin (10/08/2024 3:00 AM EDT) Only the most recent of2 resultswithin the time period is included. Pathologist [facility] Hgb 7.6(L) 11.2 - 15.7 g/dL [facility] Hemoglobin x 3 22.8(L) 33.6 - 47.1 g/dL [facility] 10/08/2024 3:00 AM EDT 10/09/2024 12:51 PM EDT us Driss Alatorre MD LAB BLOOD ORDERABLES Final Resul t Performing Organization Address City/[facility]/ZIP Co de Phone Number [facility] [address] [place] [address] * LIH (10/03/2024 3:00 AM EST) Only the most recent of3 resultswithin the time period is included. Pathologist [facility] Lipemia Normal Normal [facility] Icterus Normal Normal [facility] Hemolysis Normal Normal [facility] 10/03/2024 3:00 AM EST 10/04/2024 2:15 PM EST us Driss Alatorre MD LAB [id number] ICITED RESULTS Final Result Performing Organization Address [facility] Co de Phone Number [facility] [address] [place] [address] * (ABNORMAL) Kt/V Natural Log, URR (10/03/2024 3:00 AM EST) Only the most recent of3 resultswithin the time period is included. Pathologist [facility] Treatment Time 188 min [facility] Pre-Weight, lb 55.7 kg [facility] Post-Weight, lb 53.9 kg [facility] Ultrafiltration Rate 11 <=13 mL/kg/hr [facility] Comment: Recommend achieving Ultrafiltration Rate (UFR) <=10 mL/kg/hr References: Kendy VELÁSQUEZ et al. Kidney Int. 2010; 79(2):250-257 BUN Post Dialysis 11 7 - 25 mg/dL [facility] BUN 46(H) 7 - 25 mg/dL [facility] UREA REDUCTION RATIO (%) 76 >=65 % [facility] Kt/V Natural Log 1.65 >=1.2 [facility] 10/03/2024 3:00 AM EST 10/04/2024 12:22 PM EST us Driss Alatorre MD LAB [id number] ICITED RESULTS Final Result Performing Organization Address [facility] Co de Phone Number [facility] [address] [place] [address] * Calcium Phosphorus Product, Adjusted (10/03/2024 3:00 AM EST) Only the most recent of3 resultswithin the time period is included. Albumin 4.2 3.6 - 5.4 g/dL [facility] Calcium 9.9 8.6 - 10.3 mg/dL [facility] Phosphorus, Serum 4.9 2.5 - 5.0 mg/dL [facility] Ca*PO4 48.5 <55.0 mg2/dL2 [facility] Calcium, Adjusted Total 9.9 8.6 - 10.3 mg/dL [facility] CA*PO4 CORRCTD 48.5 <55.0 mg2/dL2 [facility] 10/03/2024 3:00 AM EST 10/04/2024 2:15 PM EST us Driss Alatorre MD LAB [id number] ICITED RESULTS Final Result Performing Organization Address [facility] Co de Phone Number [facility] [address] [place] [address] * (ABNORMAL) TSAT (10/03/2024 3:00 AM EST) Only the most recent of3 resultswithin the time period is included. Iron 47(L) 50 - 170 ug/dL [facility] Transferrin 127(L) 250 - 380 mg/dL [facility] TIBC 178(L) 211 - 406 ug/dL [facility] Iron Saturation (TSat) 26 22 - 52 % [facility] 10/03/2024 3:00 AM EST 10/04/2024 2:15 PM EST us Driss Alatorre MD LAB BLOOD ORDERABLES Final Resul t [facility] [address] [place] [address] * (ABNORMAL) CBC and Differential (10/03/2024 3:00 AM EST) Only the most recent of2 resultswithin the time period is included. DIFFERENTIAL MANUAL, 2 Not Indicated [facility] White Blood Cells 4.9 4.0 - 10.0 K/uL [facility] RBC 2.37(L) 3.93 - 5.22 M/uL [facility] Hgb 7.2(L) 11.2 - 15.7 g/dL [facility] Hemoglobin x 3 21.6(L) 33.6 - 47.1 g/dL [facility] Hematocrit 22.2(L) 34.1 - 44.9 % [facility] MCV 93.7 79.4 - 94.8 fL [facility] MCH 30.4 25.6 - 32.2 pg [facility] MCHC 32.4 32.2 - 35.5 g/dL [facility] Platelets 192 182 - 369 K/uL [facility] RDW 15.1(H) 11.7 - 14.4 % [facility] Neutrophils Relative 72.0(H) 34.0 - 71.1 % [facility] Lymphocytes Relative 18.3(L) 19.3 - 51.7 % [facility] Monocytes 8.1 4.7 - 12.5 % [facility] Eosinophils Relative 0.6(L) 0.7 - 5.8 % [facility] Basophils Relative 0.6 0.1 - 1.2 % [facility] Immature Granulocytes 0.4 0.0 - 1.0 % [facility] 10/03/2024 3:00 AM EST 10/04/2024 12:21 PM EST Driss Alatorre MD LAB BLOOD ORDERABLES Final Resul t Performing Organization Address City/[facility]/ZIP Co de Phone Number [facility] [address] [place] [address] * (ABNORMAL) ALT (10/03/2024 3:00 AM EST) Only the most recent of3 resultswithin the time period is included. ALT (SGPT) <7(L) 10 - 49 U/L [facility] 10/03/2024 3:00 AM EST 10/04/2024 2:15 PM EST us Driss Alatorre MD LAB BLOOD ORDERABLES Final Resul t Performing Organization Address [facility] Phone Number [facility] [address] [place] [address] * AST (10/03/2024 3:00 AM EST) Only the most recent of3 resultswithin the time period is included. AST (SGOT) <8 <34 U/L [facility] 10/03/2024 3:00 AM EST 10/04/2024 2:15 PM EST us Driss Alatorre MD LAB BLOOD ORDERABLES Final Resul t Performing Organization Address [facility] Phone Number [facility] [address] [place] [address] * Protein, total (10/03/2024 3:00 AM EST) Only the most recent of3 resultswithin the time period is included. Total Protein 6.7 6.4 - 8.9 g/dL [facility] 10/03/2024 3:00 AM EST 10/04/2024 2:15 PM EST us Driss Alatorre MD LAB BLOOD ORDERABLES Final Resul t Performing Organization Address [facility] Phone Number [facility] [address] [place] [address] * (ABNORMAL) Alkaline phosphatase (10/03/2024 3:00 AM EST) Only the most recent of3 resultswithin the time period is included. Alkaline Phosphatase 130(H) 46 - 116 U/L [facility] 10/03/2024 3:00 AM EST 10/04/2024 2:15 PM EST us Driss Alatorre MD LAB BLOOD ORDERABLES Final Resul t Performing Organization Address [facility]/State/ZIP Co de Phone Number [facility] [address] [place] [address] * (ABNORMAL) PTH, Intact (10/03/2024 3:00 AM EST) Only the most recent of3 resultswithin the time period is included. PTH, Intact 1,769(H) 160 - 721 pg/mL [facility] Comment: Suggested (KDIGO) ESRD maintenance range is two to nine times the upper normal limit (80.1 pg/mL) for the laboratory. 10/03/2024 3:00 AM EST 10/04/2024 2:15 PM EST us Driss Alatorre MD LAB BLOOD ORDERABLES Final Resul t Performing Organization Address [facility] de Phone Number [facility] [address] [place] [address] * Magnesium (10/03/2024 3:00 AM EST) Only the most recent of3 resultswithin the time period is included. Magnesium 2.4 1.9 - 2.7 mg/dL [facility] 10/03/2024 3:0 0 AM EST 10/04/2024 2:15 PM EST us Driss Alatorre MD LAB BLOOD ORDERABLES Final Resul t Performing Organization Address [facility] de Phone Number [facility] [address] [place] [address] * Lactate dehydrogenase (10/03/2024 3:00 AM EST) Only the most recent of3 resultswithin the time period is included. LDH 154 120 - 246 U/L [facility] 10/03/2024 3:00 AM EST 10/04/2024 2:15 PM EST us Driss Alatorre MD LAB BLOOD ORDERABLES Final Resul t Performing Organization Address [facility] de Phone Number [facility] [address] [place] [address] * (ABNORMAL) Glucose, random (10/03/2024 3:00 AM EST) Only the most recent of3 resultswithin the time period is included. Glucose 172(H) 74 - 109 mg/dL [facility] 10/03/2024 3:00 AM EST 10/04/2024 2:15 PM EST us Driss Alatorre MD LAB BLOOD ORDERABLES Final Resul t Performing Organization Address City/[facility] Co de Phone Number [facility] [address] [place] [address] * (ABNORMAL) Ferritin (10/03/2024 3:00 AM EST) Only the most recent of3 resultswithin the time period is included. Ferritin 1,373(H) 10 - 291 ng/mL [facility] 10/03/2024 3:00 AM EST 10/04/2024 2:15 PM EST us Driss Alatorre MD LAB BLOOD ORDERABLES Final Resul t Performing Organization Address [facility] de Phone Number [facility] [address] [place] [address] * (ABNORMAL) Creatinine, serum (10/03/2024 3:00 AM EST) Only the most recent of3 resultswithin the time period is included. Creatinine 6.43(H) 0.55 - 1.02 mg/dL [facility] 10/03/2024 3:00 AM EST 10/04/2024 2:15 PM EST us Driss Alatorre MD LAB BLOOD ORDERABLES Final Resul t Performing Organization Address [facility] de [facility] [address] [place] [address] * (ABNORMAL) Bilirubin, total (10/03/2024 3:00 AM EST) Only the most recent of3 resultswithin the time period is included. Total Bilirubin 0.2(L) 0.3 - 1.2 mg/dL [facility] 10/03/2024 3:00 AM EST 10/04/2024 2:15 PM EST us Driss Alatorre MD LAB BLOOD ORDERABLES Final Resul t Performing Organization Address [facility] Co de Phone Number [facility] [address] [place] [address] * (ABNORMAL) Electrolyte panel (10/03/2024 3:00 AM EST) Only the most recent of3 resultswithin the time period is included. Sodium 140 136 - 145 mEq/L [facility] Potassium 3.8 3.4 - 5.0 mEq/L [facility] Chloride 98 98 - 107 mEq/L [facility] Bicarbonate (CO2) 27 21 - 31 mEq/L [facility] Anion Gap 15(H) 3 - 14 mEq/L [facility] 10/03/2024 3:00 AM EST 10/04/2024 2:15 PM EST us Driss Alatorre MD LAB BLOOD ORDERABLES Final Resul t Performing Organization Address [facility] de Phone Number [facility] [address] [place] [address] * (ABNORMAL) Hemoglobin and hematocrit (09/19/2024 3:00 [...] ORDERABLES Final Resul t Performing Organization Address [facility] Co de Phone Number [facility] [address] [place] [address] * Confirmation Test HCV (08/08/2024 3:00 AM EST) Hep C Ab Confirmation Not needed [facility] 08/08/2024 3:00 AM EST 08/12/2024 2:04 PM EST us Driss Alatorre MD LAB BLOOD ORDERABLES Final Resul t Performing Organization Address [facility] de Phone Number [facility] [address] [place] [address] * Collection Date (08/08/2024 3:00 AM EST) Collection Date See Comment [facility] Comment: Patient sample received may exceed specimen stability, based on the collection date electronically provided. ??When reviewing patient results, verify collection information and consider specimen stability before acting on any critical or panic results. 08/08/2024 3:00 AM EST us Driss Alatorre MD LAB [id number] ICITED RESULTS Final Result Performing Organization Address [facility] de Phone Number [facility] [address] [place] [address] * HEPATITIS C ABS W/REFLEX RNA DETECTR (08/08/2024 3:00 AM EST) Pathologist [facility] Hep C Virus Ab Non-Reacti ve Non-Reacti ve [facility] 08/08/2024 3:00 AM EST 08/12/2024 2:07 PM EST us Driss Alatorre MD LAB [id number] ICITED RESULTS Final Result Performing Organization Address [facility] de Phone Number [facility] [address] [place] [address] * Aluminum level (08/08/2024 3:00 AM EST) Aluminum 3 1 - 20 ug/L [facility] 08/08/2024 3:00 AM EST 08/12/2024 2:06 PM EST us Driss Alatorre MD LAB BLOOD ORDERABLES Final Resul t Performing Organization Address [facility] de Phone Number [facility] [address] [place] [address] * Hepatitis B Surface Antibody (08/08/2024 3:00 AM EST) Hep B Surface Antibody 31 mIU/mL [facility] Comment: Interpretation: <10: No Immunity >=10: Probable Immunity 08/08/2024 3:00 AM EST 08/12/2024 2:07 PM EST Driss Alatorre MD LAB BLOOD ORDERABLES Final Resul t Performing Organization Address [facility] de Phone Number [address] [address] * Uric Acid (08/08/2024 3:00 AM EST) Uric Acid 4.4 2.3 - 6.6 mg/dL [facility] 08/08/2024 3:00 AM EST 08/12/2024 2:07 PM EST Driss Alatorre MD LAB BLOOD ORDERABLES Final Resul t Performing Organization Address [facility] Phone Number [address] [address] * (ABNORMAL) Hemoglobin A1c (08/08/2024 3:00 AM [...] ORDERABLES Final Resul t Performing Organization Address City/[facility] Co de Phone Number [facility] [address] [place] [address] * (ABNORMAL) Lipid panel (08/08/2024 3:00 AM [...] ORDERABLES Final Resul t Performing Organization Address City/[facility] Co de Phone Number [facility] [address] [place] [address] from Last 3 Months Insurance * Guarantor: Kavitha Padilla Account Type Relation to Patient Date of Phone Billing Address Personal/Family Self 1955 [address] [id number] [facility] ([id number]) [facility] ([id number]) Care Teams Sales Hunter Relationship Specialty Start Date End Date Patricia Ingram MD [address] [place] [id number] PCP - General 08/10/20
[2024-10-10 09:28] LABS: Basophils Percent Auto 0.2 % (0-2); PLT CLUMP 1; Red Cell Distribution Width 14.6 % (11.0-16.0); SCAN SMEAR FLAG 1
[2024-10-10 09:30] LABS: Eosinophils Percent Auto 0.6 % (0-4); Hematocrit 27.4 % (37.0-47.0); Hemoglobin 9.2 g/dl (12.0-16.0); Imm Gran Abs Auto 0.03 X10*3/uL (0.00-0.03); Imm Gran Pct Auto 0.6 % (0.0-0.4); Lymphocytes Absolute Auto 0.2 X10*3/uL (1.2-4.9); Lymphocytes Percent Auto 3.7 % (20-40); MANUAL DIFF FLAG SCAN; Mean Corpuscular HGB Conc 33.6 g/dl (31.0-35.0); Mean Corpuscular Hemoglobin 30.5 pg (27.0-33.0); Mean Corpuscular Volume 90.7 fL (80.0-98.0); Monocytes Absolute Auto 0.2 X10*3/uL (0.1-1.2); Monocytes Percent Auto 4.1 % (2-11); Neutrophils Absolute Auto 4.6 x10*3/uL (2.0-8.3); Neutrophils Percent Auto 90.8 % (45-73); Red Blood Count 3.02 X10*6/uL (4.20-5.50)
[2024-10-10 09:46] LABS: Alanine Aminotransferase < 6 U/L (0-31); Albumin Level 4.1 g/dL (3.5-5.0); Alkaline Phosphatase 112 U/L (39-117); Anion Gap 18 (12-20); Aspartate Amino Transferase 16 U/L (5-31); Bilirubin Total 0.5 mg/dL (0.0-1.0); Blood Urea Nitrogen 41 mg/dL (9-16); Calcium 10.1 mg/dL (8.4-10.2); Carbon Dioxide 27 mmol/L (22-29); Chloride 100 mmol/L (96-108); Creatinine Clr Calc Pharmacy 6.3; Estimated Glomerular Filt Rate 6; Glucose Random 206 mg/dL (60-115); Potassium 4.3 mmol/L (3.3-5.1); Sodium 141 mmol/L (135-145); Total Protein 7.7 g/dL (6.5-8.0)
--- NOTE | 2024-10-10 10:03 | ED_ITS ---
HPI - General Adult General Chief complaint: Nausea/Vomiting/Diarrhea Stated complaint: ABD PAIN,VOMITED PER EMS Time Seen by Provider: 10/10/24 08:27 History of Present Illness ED Provider: Dr. White HPI narrative: 69 y/o F patient; PMH CAD s/p PCI to distal LMCA and proximal LCx (08/01/2024) s/p NSTEMI, hx CABG, hx moderate aortic stenosis, ESRD on HD Monday//Monday, GERD, HTN, T2DM, HTN, HLD; presents from home with report of NBNB nausea/vomiting, non-bloody diarrhea, and mid-abdominal pain since this morning. Associated with a generalized headache and neck pain. She denies: chest pain, SOB, cough/congestion, fever or chills. She cooked fish last night but her son ate it too and is not sick. Related Data Home Medications ?Medication ?Instructions ?Recorded ?Confirmed sertraline 100 mg tablet 150 mg PO DAILY 06/10/20 10/02/24 ascorbic acid (vitamin C) 500 mg 1 tab PO DAILY 12/03/20 10/02/24 tablet (Vitamin C) montelukast 10 mg tablet 10 mg PO BEDTIME 12/03/20 10/02/24 insulin glargine 100 unit/mL (3 8 unit subcut DAILY 01/25/23 10/02/24 mL) subcutaneous pen (Lantus Solostar U-100 Insulin) sevelamer carbonate 800 mg tablet 800 mg PO TIDWM@0800,1200,1700 01/25/23 10/02/24 acetaminophen 500 mg tablet 1,000 mg PO Q8H PRN Pain 02/08/23 10/02/24 budesonide-formoterol HFA 80 2 puff inhalation BID 02/08/23 10/02/24 mcg-4.5 mcg/actuation aerosol inhaler (Symbicort) cholecalciferol (vitamin D3) 25 25 mcg PO DAILY 01/01/24 10/02/24 mcg (1,000 unit) tablet carvedilol 3.125 mg tablet 3.125 mg PO BID 08/13/24 10/02/24 docusate sodium 100 mg capsule 100 mg PO BID PRN Constipation 08/13/24 10/02/24 ezetimibe 10 mg tablet 10 mg PO DAILY 08/13/24 10/02/24 insulin glargine 100 unit/mL 7 unit subcut BEDTIME 08/13/24 10/02/24 subcutaneous solution (Lantus U-100 Insulin) melatonin 5 mg tablet 5 mg PO BEDTIME 08/13/24 10/02/24 ticagrelor 90 mg tablet (Brilinta) 90 mg PO BID 08/13/24 10/02/24 calcitriol 0.25 mcg capsule 0.75 mcg PO TUTHSA 08/26/24 10/02/24 cinacalcet 30 mg tablet 30 mg PO DAILY 08/26/24 10/02/24 clotrimazole 1 % topical solution 1 appl topical BID 08/26/24 10/02/24 diclofenac sodium 1 % topical gel 1 g topical TID PRN pain 08/26/24 10/02/24 insulin aspart U-100 100 unit/mL 3 unit subcut DAILY@1200 08/26/24 10/02/24 (3 mL) subcutaneous pen (Novolog FlexPen U-100 Insulin aspart) insulin aspart U-100 100 unit/mL See Protocol subcut BIDAC 08/26/24 10/02/24 (3 mL) subcutaneous pen (Novolog FlexPen U-100 Insulin aspart) polyethylene glycol 3350 17 17 g PO BID PRN Constipation 08/26/24 10/02/24 gram/dose oral powder sennosides 8.6 mg tablet (senna) 17.2 mg PO BEDTIME PRN diarrhea 08/26/24 10/02/24 isosorbide mononitrate 30 mg 60 mg PO DAILY 10/02/24 10/02/24 tablet,extended release 24 hr Previous Rx's ?Medication ?Instructions ?Recorded amlodipine 10 mg tablet 10 mg PO DAILY 90 days #90 tabs 12/06/22 atorvastatin 80 mg tablet 80 mg PO BEDTIME #90 tabs 08/17/23 aspirin 81 mg tablet,delayed 81 mg PO DAILY 90 days #90 tabs 11/16/23 release pantoprazole 40 mg tablet,delayed 40 mg PO BID #60 tabs 08/29/24 release evolocumab 140 mg/mL subcutaneous 140 mg subcut Q2W 90 days #6 mL 09/17/24 pen injector (Kenia Naranjo) furosemide 40 mg tablet 80 mg (2 x 40 mg) PO BID #240 tabs 10/02/24 hydralazine 25 mg tablet 25 mg PO TID #90 tabs 10/02/24 Allergies Allergy/AdvReac Type Severity Reaction Status Date / Time No Known Allergies Allergy Verified 10/10/24 08:19 Review of Systems 2 Review of Systems: Yes all other systems are reviewed and are negative FORMERLY [facility] Past Medical History Attestation statement: The following information was validated with the patient. 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 End stage chronic kidney disease Edema Atherosclerotic cardiovascular disease SHELIA (obstructive sleep apnea) Hypercalcemia Asthma DJD (degenerative joint disease) Chronic kidney disease Other and unspecified hyperlipidemia Type 2 diabetes mellitus with unspecified complications Essential hypertension Surgical History History of hemorrhoidectomy (01/30/23) H/O colonoscopy Hemorrhoids H/O angioplasty History of tubal ligation History of coronary artery bypass graft (~2017) Family History Family History Father Cardiovascular disease Hypertension Mother Cardiovascular disease Hypertension Social History Social History Household Members: Children Household Members Other:: son Housing: House Housing Other:: senior apartment Are you a primary home care aide to a significant other at home: No Do you presently have visiting nurse or other home services: Yes ([facility]) Alcohol intake: never Patient Tobacco Use Status: Never used Tobacco Smoked in Last 30 Days: No Use of substances other than those prescribed or required for medical reasons: No Advance Directives: Yes Advance Directives on File: Yes Advance Directives Date on File: 12/03/20 Do you have a plan to hurt others: No Plan service: No 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al status: disabled 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 Const General: cooperative HENMT Head: Yes normal to inspection and Yes atraumatic Eyes General: appearance normal, both eyes and all related structures Pupils: Equal, round and reactive pupils present EOM: EOMs intact bilaterally Neck Neck: Yes normal visual inspection, Yes full ROM, Yes supple and No tender Chest Chest palpation & inspection: normal inspection of the chest and normal palpation of entire chest wall Resp Effort & Inspection: normal respiratory effort, able to speak in complete sentences, no cough and no respiratory distress Auscultation: clear to auscultation bilaterally Cardio Rate: regular rate Rhythm: regular rhythm GI Inspection: Yes normal to inspection, No Abdominal wall edema and No distended Palpation (GI): Soft to palpation, not firm, nontender, no guarding and not rigid Auscultation: normal bowel sounds Back/Spine/Pelvis Back: No back tenderness Neuro Cranial nerves: Yes Equal, round and reactive pupils present Course Course Course Narrative: Patient is afebrile, hypertensive. Ordered for EKG, laboratory studies, respiratory swab. Labs reviewed. Hgb 9.2, consistent with known anemia. Cr 6.46, consistent with known ESRD. No leukocytosis, + left shift. COVID/Flu/RSV negative. Ordered for CT Abdomen/Pelvis. CT notable gastritis, distal esophagitis, and proctitis. Provided Zofran 4mg IV and 250cc IVF. She is tolerating sips of water. Patient will require admission for symptom management and dialysis either today or tomorrow. She has only be able to tolerate sips of water and feels quite weak. Family at bedside feel they cannot manage her acute illness at this time. Plan: Admit to hospitalist Condition: Stable Medications Administered Discontinued Medications Generic Name Dose Route Start Last Admin Trade Name Tianq PRN Reason Stop Dose Admin Iohexol 100 ml 10/10/24 12:59 10/10/24 12:59 Iohexol 350 Mg/Ml 100 Ml Infus..Btl IV 10/10/24 13:00 85 ml ONCE ONE Administration Medical Decision Making Lab Data 10/10/24 09:14 10/10/24 09:14 Labs: Lab Results 10/10/24 10/10/24 Range/Units 09:14 11:21 WBC 5.1 (4.8-10.8) X10*3/uL RBC 3.02 L (4.20-5.50) X10*6/uL Hgb 9.2 L (12.0-16.0) g/dl Hct 27.4 L (37.0-47.0) % MCV 90.7 (80.0-98.0) fL MCH 30.5 (27.0-33.0) pg MCHC 33.6 (31.0-35.0) g/dl RDW 14.6 (11.0-16.0) % Plt Count 168 (160-400) X10*3/uL MPV 10.6 (9.4-12.3) fL Immature Gran % (Auto) 0.6 H (0.0-0.4) % Neut % (Auto) 90.8 H (45-73) % Lymph % (Auto) 3.7 L (20-40) % [place] % (Auto) 4.1 (2-11) % Eos % (Auto) 0.6 (0-4) % Baso % (Auto) 0.2 (0-2) % Lymph # (Auto) 0.2 L (1.2-4.9) X10*3/uL [place] # (Auto) 0.2 (0.1-1.2) X10*3/uL Eos # (Auto) 0.0 (0.0-0.4) X10*3/uL Baso # (Auto) 0.0 (0.0-0.2) X10*3/uL Abs Immat Gran (auto) 0.03 (0.00-0.03) X10*3/uL Absolute Neuts (auto) 4.6 (2.0-8.3) x10*3/uL Absolute Nucleated RBC 0.000 (0.0-0.012) X10*3/uL Nucleated RBC % (auto) 0.0 (0.0-0.2) /100WBC Smear Tech's Comments VERIFIED Sodium 141 (135-145) mmol/L Potassium 4.3 (3.3-5.1) mmol/L Chloride 100 (96-108) mmol/L Carbon Dioxide 27 (22-29) mmol/L Anion Gap 18 (12-20) BUN 41 H (9-16) mg/dL Creatinine 6.46 H* (0.5-1.4) mg/dL Estim Creat Clear Calc 6.3 Estimated GFR 6 Random Glucose 206 H (60-115) mg/dL Lactic Acid 0.8 (0.5-2.0) mmol/L Calcium 10.1 D (8.4-10.2) mg/dL Total Bilirubin 0.5 (0.0-1.0) mg/dL AST 16 (5-31) U/L ALT < 6 (0-31) U/L Alkaline Phosphatase 112 (39-117) U/L Total Protein 7.7 (6.5-8.0) g/dL Albumin 4.1 (3.5-5.0) g/dL Lipase 124 H (8-78) U/L Influenza Type A (PCR) NEGATIVE (Negative) Influenza Type B (PCR) NEGATIVE (Negative) RSV RNA Qual (PCR) NEGATIVE (Negative) SARS-CoV-2 RNA (RT-PCR) NEGATIVE (Negative) Independent Interpretation I performed an independent interpretation of an: EKG Interpretation: NSR 78BPM with normal intervals Radiology Impression Discussion of test interpretation with radiology: I have reviewed the radiologist's reading. Radiologist Impression: EXAMINATION: CT ABDOMEN AND PELVIS WITH CONTRAST CLINICAL INFORMATION: Nausea, vomiting, diarrhea, abdominal pain. COMPARISON: 11/16/2021. CT pelvis 02/07/2023. TECHNIQUE: Multidetector volumetric images were obtained from the superior aspect of the liver through the pubic symphysis following administration 85 mL of Omnipaque 350 intravenous contrast. Sagittal and coronal reformatted images were obtained on the technologist's workstation. Oral contrast: No This CT examination was performed using dose optimization techniques as appropriate, variously including the following: *Automated exposure control *Adjustment of mA and/or kV according to patient size (this includes techniques or standardized protocols for targeted exams where dose is matched to indication/reason for exam; i.e. extremities or head) *Use of iterative reconstruction technique FINDINGS: LUNG BASES: There is peribronchial thickening in the left lower lobe suggesting infectious or inflammatory airways disease. There is mild linear atelectasis in the left lower lobe. Lung bases otherwise clear. No effusions. There is mild cardiomegaly. There has been prior sternotomy. There are RCA calcifications. No pericardial effusion. LIVER, GALLBLADDER, AND BILIARY TREE: Liver is mildly enlarged. Normal contour. No suspicious lesion. No biliary dilatation. Patent hepatic and portal veins. The gallbladder is distended with no evidence of radiopaque gallstones, gallbladder wall thickening, or obvious pericholecystic inflammatory changes. PANCREAS: Unremarkable. SPLEEN: Borderline enlargement. ADRENAL GLANDS: Mild bilateral hyperplasia. KIDNEYS AND URETERS: The kidneys are normal in size, shape, and attenuation. Tiny bilateral renal cysts. Vascular calcifications in the hilar regions. No hydronephrosis, hydroureter, or calculi seen. No perinephric stranding. BLADDER: Suboptimally distended. Minimal diffuse wall thickening, nonspecific. GASTROINTESTINAL TRACT: There is a small type I hiatus hernia. Mild thickening of the distal esophagus suggesting possible esophagitis. The stomach is suboptimally distended although there is a suggestion of mild wall thickening suggesting gastritis. Normal duodenum. Normal small bowel. No evidence of appendicitis. Colon is mildly fluid-filled without wall thickening or inflammation. There are a few scattered diverticula. There is rectal thickening diffusely, suggesting proctitis. PERITONEUM: There is no free air or gross ascites. ABDOMINAL WALL: No significant hernia is appreciated. LYMPH NODES: None enlarged by size criteria. VASCULAR: Extensive atheromatous calcification of the major arterial vasculature. No aneurysm. PELVIC VISCERA: No adnexal masses. The uterus is mildly bulky in appearance, likely on the basis of underlying small fibroids. There are calcified vessels in the periphery of the uterus. OSSEOUS STRUCTURES: No suspicious lytic or blastic bone lesions. Mild degenerative changes in the hip joints, SI joints, and throughout the spine. CT/CT abdomen pelvis w IV con IMPRESSION: 1. Diffuse wall thickening of the rectum suggesting proctitis. 2. Mild wall thickening and enhancement of the stomach, suggesting possible gastritis. Small hiatus hernia. Possible distal esophagitis. 3. Distended but otherwise normal-appearing gallbladder. 4. Mild hepatomegaly. No intrinsic hepatic lesion. 5. Borderline splenic enlargement. 6. Mild cardiac enlargement. Prior sternotomy. Small airway thickening in the left lower lobe suggesting infectious or inflammatory airways disease. 7. Extensive vascular calcification. 8. Additional ancillary findings as discussed in the body of the report Electronically signed by: Manuelito Reid MD 10/10/2024 01:38 PM EDT Discharge Plan Discharge Clinical Impression: Gastritis, Proctitis, Esophagitis Patient Disposition: Admitted As Inpatient Print Language: Setswana
--- NOTE | 2024-10-10 10:08 | ECG_ITS ---
Test Reason : SCREENING Blood Pressure : */* mmHG Vent. Rate : 78 BPM Atrial Rate : 78 BPM P-R Int : 156 ms QRS Dur : 96 ms QT Int : 418 ms P-R-T Axes : 65 30 65 degrees QTcB Int : 476 ms Normal sinus rhythm Incomplete right bundle branch block Minimal voltage criteria for LVH, may be normal variant ( [place] product ) Septal infarct (cited on or before 28-Nov-2017) Abnormal ECG When compared with ECG of 26-Aug-2024 01:58, Nonspecific T wave abnormality now evident in Anterolateral leads Referred By: Maryellen White Electronically Signed By: JOSH STEWART
[2024-10-10 10:13] LABS: Mean Platelet Volume 10.6 fL (9.4-12.3); Platelet Count 168 X10*3/uL (160-400); SLIDE REVIEW VERIFIED; White Blood Count 5.1 X10*3/uL (4.8-10.8)
[2024-10-10 10:15] LABS: Influenza A PCR NEGATIVE (Negative); Influenza B PCR NEGATIVE (Negative); Resp Syncy Virus RNA Qual PCR NEGATIVE (Negative); SARS COV2 PCR INHOUSE NEGATIVE (Negative)
[2024-10-10 11:40] LABS: Lipase 124 U/L (8-78)
[2024-10-10 11:45] LABS: Lactic Acid 0.8 mmol/L (0.5-2.0)
[2024-10-10 12:59] VITALS: BP 213/76; PULSE 74; RESP 14; TEMP 36.8; O2SAT 100
[2024-10-10] MEDS: iohexoL 350 MG/ML 100 ML INFUS..BTL IV (12:59)
--- NOTE | 2024-10-10 13:57 | PC.NURSE ---
patient a&ox2, pt difficult stick- IV inserted by US trained nurse, labs drawn, ekg performed, pt has dialysis tues, , sat- lt av fistula +bruit/thrill, awaiting radiology results.
[2024-10-10] MEDS: ondansetron HCL 4 MG/2 ML VIAL IVPUSH (14:26)
[2024-10-10] MEDS: 0.9 % Sodium Chloride 250 ML IVCONT (14:30)
--- NOTE | 2024-10-10 15:08 | P.HPHOSP_ITS ---
History of Present Illness Date of Service: 10/10/24 Chief Complaint: nausea vomiting and diarrhea chief complaint nausea vomiting abdominal pain and diarrhea nonbloody. history of presenting illness this is a 69-year-old female with past medical history significant for coronary artery disease status post PCI 08/01/[address]elevation [place], end-stage renal disease on hemodialysis, GERD, on Brilinta, essential hypertension, type 2 diabetes mellitus on insulin, hyperlipidemia, status post hemorrhoidectomy presented to emergency room due to acute onset of nonbloody nausea vomiting, abdominal pain and diarrhea according to patient she vomited 4-5 times at the same time had watery diarrhea associated with abdominal pain, denies recent travel, no outside food, had fish for dinner, suddenly the same food but is without any acute symptoms, patient denies associated fever, no chills complaining of mild headache, workup in the ED showed normal WBC 5.1, stable electrolytes, blood sugar 2-6, CT abdomen and pelvis showed mild gastritis, duodenitis and proctitis, patient due for hemodialysis today but came to ER instead of going for hemodialysis due to above symptoms, patient in the ED treated with 250 mL IV fluid, IV Zofran and now being admitted to [facility] due to acute gastroenteritis and for need of hemodialysis. Review of Systems 2 Review of Systems: General mild headache no dizziness no fever chills. CVS no chest pain, no palpitation. 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 End stage chronic kidney disease Edema Atherosclerotic cardiovascular disease SHELIA (obstructive sleep apnea) Hypercalcemia Asthma DJD (degenerative joint disease) Chronic kidney disease Other and unspecified hyperlipidemia Type 2 diabetes mellitus with unspecified complications Essential hypertension Family History Father Cardiovascular disease Hypertension Mother Cardiovascular disease Hypertension Surgical History History of hemorrhoidectomy (01/30/23) H/O colonoscopy Hemorrhoids H/O angioplasty History of tubal ligation History of coronary artery bypass graft (~2017) Social History Household Members: Children Household Members Other:: son Housing: House Housing Other:: senior apartment Are you a primary care transition mgr to a significant other at home: No Do you presently have visiting nurse or other home services: Yes ([facility]) Alcohol intake: never Patient Tobacco Use Status: Never used Tobacco Smoked in Last 30 Days: No Use of substances other than those prescribed or required for medical reasons: No Advance Directives: Yes Advance Directives on File: Yes Advance Directives Date on File: 12/03/20 Do you have a plan to hurt others: No Plan service: No 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al status: disabled 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 Meds Allergies Allergy/AdvReac Type Severity Reaction Status Date / Time No Known Allergies Allergy Verified 10/10/24 08:19 Active Medications: Current Medications Acetaminophen (Acetaminophen 325 Mg Tablet) 650 mg PO Q6H PRN PRN Reason: Pain, Mild 1-3,fever,headache Calcium Carbonate (Calcium Carbonate 750 Mg Tab.Chew) 750 mg PO Q4H PRN PRN Reason: Heartburn Sodium Chloride (Ns) 250 mls @ 250 mls/hr IVCONT .Q1H [facility] Stop: 10/10/24 15:29 Last Admin: 10/10/24 14:30 Dose: 250 mls/hr Magnesium Hydroxide (Milk Of Magnesia 30 Ml Oral.Susp) 30 ml PO DAILY PRN PRN Reason: Constipation Melatonin (Melatonin 3 Mg Tablet) 6 mg PO BEDTIME PRN PRN Reason: Insomnia Ondansetron HCl (Ondansetron Hcl 4 Mg/2 Ml Vial) 4 mg IVPUSH Q8H PRN PRN Reason: Nausea and Vomiting Sodium Chloride (0.9 % Sodium Chloride Flush 3 Ml Syringe) 3 ml IVFLUSH QSHIFT [facility] Home Medications ?Medication ?Instructions ?Recorded ?Confirmed ?Last Taken ?Type sertraline 100 mg tablet 150 mg PO DAILY 06/10/20 10/02/24 11/28/21 History ascorbic acid (vitamin C) 500 mg 1 tab PO DAILY 12/03/20 10/02/24 11/28/21 History tablet (Vitamin C) montelukast 10 mg tablet 10 mg PO BEDTIME 05/06/21 03/05/25 05/01/22 History insulin glargine 100 unit/mL (3 8 unit subcut DAILY 01/25/23 10/02/24 Unknown History mL) subcutaneous pen (Lantus Solostar U-100 Insulin) sevelamer carbonate 800 mg tablet 800 mg PO TIDWM@0800,1200,1700 01/25/23 10/02/24 Unknown History acetaminophen 500 mg tablet 1,000 mg PO Q8H PRN Pain 02/08/23 10/02/24 Unknown History budesonide-formoterol HFA 80 2 puff inhalation BID 02/08/23 10/02/24 Unknown History mcg-4.5 mcg/actuation aerosol inhaler (Symbicort) cholecalciferol (vitamin D3) 25 25 mcg PO DAILY 01/01/24 10/02/24 Unknown History mcg (1,000 unit) tablet carvedilol 3.125 mg tablet 3.125 mg PO BID 08/13/24 10/02/24 Unknown History docusate sodium 100 mg capsule 100 mg PO BID PRN Constipation 08/13/24 10/02/24 Unknown History ezetimibe 10 mg tablet 10 mg PO DAILY 08/13/24 10/02/24 Unknown History insulin glargine 100 unit/mL 7 unit subcut BEDTIME 08/13/24 10/02/24 Unknown History subcutaneous solution (Lantus U-100 Insulin) melatonin 5 mg tablet 5 mg PO BEDTIME 08/13/24 10/02/24 Unknown History ticagrelor 90 mg tablet (Brilinta) 90 mg PO BID 08/13/24 10/02/24 Unknown History calcitriol 0.25 mcg capsule 0.75 mcg PO TUTHSA 08/26/24 10/02/24 Unknown History cinacalcet 30 mg tablet 30 mg PO DAILY 08/26/24 10/02/24 Unknown History clotrimazole 1 % topical solution 1 appl topical BID 08/26/24 10/02/24 Unknown History diclofenac sodium 1 % topical gel 1 g topical TID PRN pain 08/26/24 10/02/24 Unknown History insulin aspart U-100 100 unit/mL 3 unit subcut DAILY@1200 08/26/24 10/02/24 Unknown History (3 mL) subcutaneous pen (Novolog FlexPen U-100 Insulin aspart) insulin aspart U-100 100 unit/mL See Protocol subcut BIDAC 08/26/24 10/02/24 Unknown History (3 mL) subcutaneous pen (Novolog FlexPen U-100 Insulin aspart) polyethylene glycol 3350 17 17 g PO BID PRN Constipation 08/26/24 10/02/24 Unknown History gram/dose oral powder sennosides 8.6 mg tablet (senna) 17.2 mg PO BEDTIME PRN diarrhea 08/26/24 10/02/24 Unknown History isosorbide mononitrate 30 mg 60 mg PO DAILY 10/02/24 10/02/24 Unknown History tablet,extended release 24 hr Physical Exam 2 Vital Signs and Narrative: Vital Signs: Last Vital Signs Temp 98.3 F 10/10/24 12:59 Pulse 74 10/10/24 12:59 Resp 14 10/10/24 12:59 BP 213/76 H 10/10/24 12:59 Pulse Ox 100 10/10/24 12:59 O2 Del Method Room Air 10/10/24 12:59 BMI result Body Mass Index 21.8 Const: Other: General: Awake alert x3 , in no acute distress. Neck no JVD Resp: CTA bilaterally CVS: S1, S2, R, 2/6 murmur GI: soft, mild lower abdominal tenderness, bowel sounds audible Skin: No rash Neuro: Cranial nerves II-XII grossly intact bilaterally. Motor grossly intact bilaterally Extremities: No edema Psych: Appropriate affect Results Labs 10/10/24 09:14 10/10/24 09:14 Labs: Laboratory Results - last 24 hr 10/10/24 10/10/24 09:14 11:21 MCV 90.7 MCH 30.5 MCHC 33.6 RDW 14.6 Plt Count 168 MPV 10.6 Immature Gran % (Auto) 0.6 H Neut % (Auto) 90.8 H Lymph % (Auto) 3.7 L [place] % (Auto) 4.1 Eos % (Auto) 0.6 Baso % (Auto) 0.2 Lymph # (Auto) 0.2 L [place] # (Auto) 0.2 Eos # (Auto) 0.0 Baso # (Auto) 0.0 Abs Immat Gran (auto) 0.03 Absolute Neuts (auto) 4.6 Absolute Nucleated RBC 0.000 Nucleated RBC % (auto) 0.0 Smear Tech's Comments VERIFIED Anion Gap 18 Estim Creat Clear Calc 6.3 Estimated GFR 6 Random Glucose 206 H Lactic Acid 0.8 Calcium 10.1 D Total Bilirubin 0.5 AST 16 ALT < 6 Alkaline Phosphatase 112 Total Protein 7.7 Albumin 4.1 Lipase 124 H Influenza Type A (PCR) NEGATIVE Influenza Type B (PCR) NEGATIVE RSV RNA Qual (PCR) NEGATIVE SARS-CoV-2 RNA (RT-PCR) NEGATIVE Imaging Radiologist's Impressions: Impressions Abdomen/Pelvis CT 10/10/24 12:42 IMPRESSION: 1. Diffuse wall thickening of the rectum suggesting proctitis. 2. Mild wall thickening and enhancement of the stomach, suggesting possible gastritis. Small hiatus hernia. Possible distal esophagitis. 3. Distended but otherwise normal-appearing gallbladder. 4. Mild hepatomegaly. No intrinsic hepatic lesion. 5. Borderline splenic enlargement. 6. Mild cardiac enlargement. Prior sternotomy. Small airway thickening in the left lower lobe suggesting infectious or inflammatory airways disease. 7. Extensive vascular calcification. 8. Additional ancillary findings as discussed in the body of the report Electronically signed by: Manuelito Reid MD 10/10/2024 01:38 PM EDT RP Assessment and Plan (1) Gastritis: Status: Acute (2) ESRD (end stage renal disease): Status: Acute (3) Proctitis: Status: Acute (4) Esophagitis: Status: Acute Plan 69-year-old female with a PMH significant for?with CAD, CABG in 2018, HTN, insulin-dependent diabetes, ESRD on dialysis on Mon//Mon, presented with nonbloody nausea vomiting abdominal pain and diarrhea since this a.m. therefore came to ER instead of going for hemodialysis. Acute nausea, vomiting, abdominal pain and diarrhea. symptoms started this a.m. likely due to gastroenteritis, no associated fevers, normal WBC will check GI panel/ symptomatic treatment with antiemetics analgesics, status post IV fluid in ED CT abdomen and pelvis showed gastritis, duodenitis and proctitis status post recent upper endoscopy that did show mild gastritis and duodenitis IV Protonix x1 and continue Prilosec 40 b.i.d. follow CBC/electrolytes chronic normocytic anemia stable End-stage renal disease, dialysis Monday, and Monday Nephrology consult stable BMP Hypertension stable blood pressure this morning ,Continue home meds ,Monitor BP closely Insulin-dependent diabetes type 2 on full liquid diet, hold Lantus, monitor point of care blood sugar and insulin sliding scale CAD Continue statin, aspirin/Brilinta HFpEF (TTE June 2024 - EF 55-60%), continue home dose of Lasix currently patient appears euvolemic no acute exacerbation noted. HLD Continue statin COPD no acute exacerbation,Continue home inhalers mood disorder resume sertraline med rec pending DVT prophylaxis compression boots Full Code in my clinical judgment patient requires inpatient hospitalization for management of acute gastroenteritis and for need for hemodialysis Monday and Saturdays. Quality Stroke Does the patient have a stroke diagnosis?: No VTE Prior VTE?: No VTE Risk Level:: Medical - moderate - high VTE Device Contraindication: N/A - Device Ordered VTE Drug Contraindication: Treatment Not Indicated
--- NOTE | 2024-10-10 15:27 | PM.CNNEP ---
History of Present Illness Reason for Consult Consult date: 10/10/24 Chief Complaint Chief complaint: acute nausea/ vomiting/ diarrhea History of Present Illness Narrative: 69 y/o F patient; PMH CAD s/p PCI to distal LMCA and proximal LCx (08/01/2024) s/p NSTEMI, hx CABG, hx moderate aortic stenosis, ESRD on HD Monday//Monday, GERD, HTN, T2DM, HTN, HLD; presents with nausea/vomiting, diarrhea, and mid-abdominal pain. Associated with a generalized headache and neck pain. no h/o chest pain, SOB, cough/congestion, fever or chills. 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 End stage chronic kidney disease Edema Atherosclerotic cardiovascular disease SHELIA (obstructive sleep apnea) Hypercalcemia Asthma DJD (degenerative joint disease) Chronic kidney disease Other and unspecified hyperlipidemia Type 2 diabetes mellitus with unspecified complications Essential hypertension Family History Family History Father Cardiovascular disease Hypertension Mother Cardiovascular disease Hypertension Surgical History Surgical History History of hemorrhoidectomy (01/30/23) H/O colonoscopy Hemorrhoids H/O angioplasty History of tubal ligation History of coronary artery bypass graft (~2017) Social History Social History Household Members: Children Household Members Other:: son Housing: House Housing Other:: senior apartment Are you a primary career orientation teacher to a significant other at home: No Do you presently have visiting nurse or other home services: Yes ([facility]NA) Alcohol intake: never Patient Tobacco Use Status: Never used Tobacco Advance Directives Date on File: 12/03/20 service: No 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al status: disabled 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 Meds Allergies Allergy/AdvReac Type Severity Reaction Status Date / Time No Known Allergies Allergy Verified 10/10/24 08:19 Active Medications: Current Medications Acetaminophen (Acetaminophen 325 Mg Tablet) 650 mg PO Q6H PRN PRN Reason: Pain, Mild 1-3,fever,headache Calcium Carbonate (Calcium Carbonate 750 Mg Tab.Chew) 750 mg PO Q4H PRN PRN Reason: Heartburn Sodium Chloride (Ns) 250 mls @ 250 mls/hr IVCONT .Q1H [facility] Stop: 10/10/24 15:29 Last Admin: 10/10/24 14:30 Dose: 250 mls/hr Magnesium Hydroxide (Milk Of Magnesia 30 Ml Oral.Susp) 30 ml PO DAILY PRN PRN Reason: Constipation Melatonin (Melatonin 3 Mg Tablet) 6 mg PO BEDTIME PRN PRN Reason: Insomnia Ondansetron HCl (Ondansetron Hcl 4 Mg/2 Ml Vial) 4 mg IVPUSH Q8H PRN PRN Reason: Nausea and Vomiting Sodium Chloride (0.9 % Sodium Chloride Flush 3 Ml Syringe) 3 ml IVFLUSH QSHIFT [facility] Home Medications ?Medication ?Instructions ?Recorded ?Confirmed ?Last Taken ?Type sertraline 100 mg tablet 150 mg PO DAILY 06/10/20 10/10/24 11/28/21 History ascorbic acid (vitamin C) 500 mg 1 tab PO DAILY 12/03/20 10/10/24 11/28/21 History tablet (Vitamin C) montelukast 10 mg tablet 10 mg PO BEDTIME 12/03/20 10/10/24 11/28/21 History insulin glargine 100 unit/mL (3 8 unit subcut DAILY 01/25/23 10/10/24 Unknown History mL) subcutaneous pen (Lantus Solostar U-100 Insulin) sevelamer carbonate 800 mg tablet 800 mg PO TIDWM@0800,1200,1700 01/25/23 10/10/24 Unknown History acetaminophen 500 mg tablet 1,000 mg PO Q8H PRN Pain 02/08/23 10/10/24 Unknown History budesonide-formoterol HFA 80 2 puff inhalation BID 02/08/23 10/10/24 Unknown History mcg-4.5 mcg/actuation aerosol inhaler (Symbicort) cholecalciferol (vitamin D3) 25 25 mcg PO DAILY 01/01/24 10/10/24 Unknown History mcg (1,000 unit) tablet carvedilol 3.125 mg tablet 3.125 mg PO BID 08/13/24 10/10/24 Unknown History docusate sodium 100 mg capsule 100 mg PO BID PRN Constipation 08/13/24 10/10/24 Unknown History ezetimibe 10 mg tablet 10 mg PO DAILY 08/13/24 10/10/24 Unknown History insulin glargine 100 unit/mL 7 unit subcut BEDTIME 08/13/24 10/10/24 Unknown History subcutaneous solution (Lantus U-100 Insulin) melatonin 5 mg tablet 5 mg PO BEDTIME PRN Insomnia 08/13/24 10/10/24 Unknown History ticagrelor 90 mg tablet (Brilinta) 90 mg PO BID 08/13/24 10/10/24 Unknown History calcitriol 0.25 mcg capsule 0.75 mcg PO TUTHSA 08/26/24 10/10/24 Unknown History cinacalcet 30 mg tablet 30 mg PO DAILY 08/26/24 10/02/24 Unknown History diclofenac sodium 1 % topical gel 1 g topical TID PRN pain 08/26/24 10/10/24 Unknown History insulin aspart U-100 100 unit/mL 3 unit subcut DAILY@1200 08/26/24 10/10/24 Unknown History (3 mL) subcutaneous pen (Novolog FlexPen U-100 Insulin aspart) insulin aspart U-100 100 unit/mL See Protocol subcut BIDAC 08/26/24 10/10/24 Unknown History (3 mL) subcutaneous pen (Novolog FlexPen U-100 Insulin aspart) polyethylene glycol 3350 17 17 g PO BID PRN Constipation 08/26/24 10/10/24 Unknown History gram/dose oral powder sennosides 8.6 mg tablet (senna) 17.2 mg PO BEDTIME PRN diarrhea 08/26/24 10/10/24 Unknown History isosorbide mononitrate 30 mg 30 mg PO DAILY 10/02/24 10/10/24 Unknown History tablet,extended release 24 hr pantoprazole 40 mg tablet,delayed 40 mg PO DAILY 10/10/24 10/10/24 Unknown History release Physical Exam Vital Signs: Last Vital Signs Temp 98.3 F 10/10/24 12:59 Pulse 74 10/10/24 12:59 Resp 14 10/10/24 12:59 BP 213/76 H 10/10/24 12:59 Pulse Ox 100 10/10/24 12:59 O2 Del Method Room Air 10/10/24 12:59 BMI result Body Mass Index 21.8 cvs: s1s2 RS; cta Abd; soft Left UE AVF Results Lab Results 10/10/24 09:14 10/10/24 09:14 Lab results: Chemistry 10/10/24 09:14 Sodium 141 Potassium 4.3 Carbon Dioxide 27 BUN 41 H Creatinine 6.46 H* Calcium 10.1 D Hematology 10/10/24 09:14 WBC 5.1 Hgb 9.2 L Plt Count 168 Assessment and Plan (1) ESRD (end stage renal disease): Status: Acute Plan 1. ESRD on HD 2. GI sx- likely enteritis 3. Chest pain / CAD 4. Anemia 5. HTN 6. DM-2 usually has HD at [facility] on [facility] tts2 REC HD today and TTS optimize volume status follow h/h- Hb is > 8.0 renal diet Low K diet No Heparin during HD - she appears euvolemic today Will use AVF Procedures Date of Service Date of Service: 10/10/24
[2024-10-10 16:00] VITALS: BP 210/77; PULSE 73; RESP 17; TEMP 36.8; O2SAT 97
[2024-10-10 16:07] VITALS: BP 210/77
[2024-10-10] MEDS: amLODIPine Besylate 10 MG TABLET PO (16:07)
[2024-10-10] MEDS: hydrALAZINE HCl 25 MG TABLET PO ×2 (16:07→21:32)
[2024-10-10] MEDS: Pantoprazole Sodium 40 MG/10 ML VIAL IVPUSH (16:08)
[2024-10-10] MEDS: 0.9 % Sodium Chloride Flush 3 ML SYRINGE IVFLUSH ×2 (16:12→23:54)
--- NOTE | 2024-10-10 17:23 | PC.NURSE ---
pt arrived from ED to dialysis , belongings brought to pt room 375 by this RN , dialysis nurse has initiated the start of dialysis . Pt appeared comfortable .
--- NOTE | 2024-10-10 17:30 | PHA.MEDREC ---
Addendum entered by Jenifer Griffith, [facility] 10/10/24 17:47: got list from [facility] pharmacy, utilized that and discharge packet from 08/29/24 to confirm medications, pt hasn't gotten cinacalcet filled since 08/02/24 X30 DS so left that one unconfirmed. Original Note: Pharmacy Consult ? Medication Reconciliation Pharmacy has completed the medication reconciliation. Spoke with patient with help from ultra sound technician and the patient was only able to confirm she has not been able to take the Praulent injection in about 2 months due to not having anyone at home to help her take it. She was not so sure about anything else she was taking and stated her Niece, Judi could help. I called and spoke with Judi at 1600 but she only spoke Algerian and needed an ultra sound technician, I tried calling back with an ultra sound technician over the phone at [phone] and [phone] and had no luck reaching her. We will confirm and update medications with Judi if she calls back.
[2024-10-10 17:34] LABS: Glucose, Whole Blood 133 mg/dL (60-115)
[2024-10-10] MEDS: Acetaminophen 325 MG TABLET 650 MG PO (19:28)
[2024-10-10 21:00] VITALS: BMI 22.5
[2024-10-10 21:03] VITALS: BP 132/60; PULSE 71; RESP 18; TEMP 36.9; O2SAT 98
[2024-10-10 21:12] LABS: Glucose, Whole Blood 105 mg/dL (60-115)
[2024-10-10] MEDS: Furosemide 40 MG TABLET 80 MG PO (21:29)
[2024-10-10] MEDS: Atorvastatin Calcium 80 MG TABLET PO (21:29)
[2024-10-10] MEDS: carvediloL 3.125 MG TABLET PO (21:32)
[2024-10-10] MEDS: Montelukast Sodium 10 MG TABLET PO (21:32)
[2024-10-10] MEDS: Ticagrelor 90 MG TABLET PO (21:32)
[2024-10-10] MEDS: calcitrioL 0.25 MCG CAPSULE 0.75 MCG PO (21:52)
[2024-10-11 03:30] VITALS: BP 163/74; PULSE 66; RESP 16; TEMP 36.2; O2SAT 96
[2024-10-11 04:08] LABS: Appearance Urine Clear; Color Urine Yellow; Glucose Urine UA 250 mg/dL (Negative); Leukocyte Esterase Urine Negative (Negative); Nitrite Urine Negative (Negative); PH >= 9.0 (5.0-9.0); UMIC TRIGGER UACC YES; Urine Blood Negative (Negative); Urine Ketones Trace mg/dL (Negative); Urine Protein >=1000 (4+) mg/dL (Neg-Trace)
[2024-10-11 04:17] LABS: Bacteria Urine Trace (None Seen); Hyaline Casts Urine 0-2 /LPF (0-2); RBC Urine 0-2 /HPF (0-2); WBC Urine 0-5 /HPF (0-5)
[2024-10-11] MEDS: Omeprazole 40 MG CAPSULE.DR PO ×2 (05:35→16:59)
[2024-10-11 07:21] LABS: Glucose, Whole Blood 101 mg/dL (60-115)
[2024-10-11 07:43] VITALS: BP 182/75; PULSE 66; RESP 18; TEMP 36.3; O2SAT 95
[2024-10-11] MEDS: Fluticasone/Vilanterol 100/25 BLST.W.DEV 1 PUFF INHALE (07:49)
[2024-10-11 07:51] VITALS: PULSE 69; RESP 15; O2SAT 93
[2024-10-11 07:52] VITALS: BP 147/80
--- NOTE | 2024-10-11 09:52 | MHC.CM.PN ---
Addendum entered by Susana Lorenzana 10/11/24 13:59: DP: PT HAS BEEN MEDICALLY CLEARED FOR DC HOME, NO SERVICES. CM SPOKE WITH PT'S NIECE IRIS WHO WILL BE HERE AT 6 PM TO TRANSPORT HOME. [facility] UPDATED ON TODAY'S DC, REQUEST DC SUMMARY BE FAXED TO [phone] Addendum entered by Susana Lorenzana 10/11/24 12:33: [facility] NOTIFIED CM OF ACTIVE SERVICES: ADULT DAY CARE/ADULT FOSTER CARE, LEVEL 2:[facility]/[employer] CHILD WATCH ATTENDANT/PCM 15 HR/WK. Original Note: [facility]MM DELIVERED PT LIVES WITH SON, USES ROLLATOR FOR MOBILITY. PT ATTENDS HD AT [facility] ON , TRANSPORT VIA TRANSPORT COMPANY THAT PT CANNOT RECALL NAME OF. NO SERVICES. +HCP/MOLST ON FILE AND VERIFIED. PCP DR. SERNA AT [facility]. DP: HOME WITH RESUMPTION OF HD SERVICES. FAMILY WILL TRANSPORT. CM WILL CONTINUE TO FOLLOW FOR ANY CHANGE TO DC PLAN/NEEDS.
[2024-10-11] MEDS: Furosemide 40 MG TABLET 80 MG PO (09:53)
[2024-10-11] MEDS: Sertraline HCL 50 MG TABLET 150 MG PO (09:53)
[2024-10-11] MEDS: Isosorbide Mononitrate 30 MG TAB.ER.24H PO (09:53)
[2024-10-11] MEDS: 0.9 % Sodium Chloride Flush 3 ML SYRINGE IVFLUSH ×2 (09:53→17:00)
[2024-10-11] MEDS: Ticagrelor 90 MG TABLET PO (09:54)
[2024-10-11] MEDS: hydrALAZINE HCl 25 MG TABLET PO ×2 (09:54→15:05)
[2024-10-11] MEDS: Ezetimibe 10 MG TABLET PO (09:54)
[2024-10-11] MEDS: Aspirin Enteric Coated 81 MG TABLET.DR PO (09:54)
[2024-10-11] MEDS: carvediloL 3.125 MG TABLET PO (09:54)
[2024-10-11] MEDS: Cholecalciferol (Vitamin D3) 25 MCG TABLET PO (09:54)
[2024-10-11] MEDS: amLODIPine Besylate 10 MG TABLET PO (09:54)
[2024-10-11] MEDS: Ascorbic Acid 500 MG TABLET PO (09:54)
[2024-10-11] MEDS: Sevelamer Carbonate Tablet 800 MG TABLET PO ×3 (09:57→16:59)
[2024-10-11 11:20] LABS: Glucose, Whole Blood 216 mg/dL (60-115)
[2024-10-11] MEDS: Insulin Lispro 100 UNIT/ML 3 ML VIAL SUBCUT ×2 (12:24→17:00)
--- NOTE | 2024-10-11 13:55 | P.DS_ITS ---
DS: Providers Provider Date of Service: 10/11/24 Date of admission: 10/10/24 14:56 Date of discharge: 10/11/24 Primary care physician: Patricia Ingram MD Consults: 10/10/24 14:32 Consult to Nephrology Routine Consulting Provider: [facility] Reason for consultation: hemodialysis Has provider been notified: No DS: Diagnosis Discharge Diagnosis (1) ESRD (end stage renal disease): Status: Acute DS: Summary Hospital Course Hospital Course: History of presenting illness: Date of Service: 10/10/24 Chief Complaint: nausea vomiting and diarrhea chief complaint nausea vomiting abdominal pain and diarrhea nonbloody. history of presenting illness this is a 69-year-old female with past medical history significant for coronary artery disease status post PCI 08/01/[address]-elevation [place], end-stage renal disease on hemodialysis, GERD, on Brilinta, essential hypertension, type 2 diabetes mellitus on insulin, hyperlipidemia, status post hemorrhoidectomy presented to emergency room due to acute onset of nonbloody nausea vomiting, abdominal pain and diarrhea according to patient she vomited 4-5 times at the same time had watery diarrhea associated with abdominal pain, denies recent travel, no outside food, had fish for dinner, suddenly the same food but is without any acute symptoms, patient denies associated fever, no chills complaining of mild headache, workup in the ED showed normal WBC 5.1, stable electrolytes, blood sugar 2-6, CT abdomen and pelvis showed mild gastritis, duodenitis and proctitis, patient due for hemodialysis today but came to ER instead of going for hemodialysis due to above symptoms, patient in the ED treated with 250 mL IV fluid, IV Zofran and now being admitted to [facility] due to acute gastroenteritis and for need of hemodialysis. Hospital course: 69-year-old female with a PMH significant for?with CAD, CABG in 2018, HTN, insulin-dependent diabetes, ESRD on dialysis on , presented with nonbloody nausea ,vomiting abdominal pain and diarrhea with no associated fevers noted to have normal WBC count, treated with antiemetics, analgesics, IV ppi and IV fluids, CT abdomen and pelvis showed gastritis, duodenitis and proctitis, patient responded well to above treatment Therefore diet advanced, patient had no further bout of nausea or vomiting last bowel movement more formed, no abdominal pain therefore being discharged home to resume all home medications as before, noted to have stable CBC and electrolytes. Chronic normocytic anemia stable End-stage renal disease, resume dialysis Monday, and Monday Hypertension stable blood pressure Continue home meds Insulin-dependent diabetes type 2 CAD no chest pain, Continue statin, aspirin/Brilinta HFpEF (TTE June 2024 - EF 55-60%), continue home dose of Lasix currently patient appears euvolemic no acute exacerbation noted. HLD Continue statin COPD no acute exacerbation,Continue home inhalers Mood disorder resume sertraline Time Attestation Discharge Coordination Time (in mins): 40 Quality: Safe Use of Opioids Does Pt have an Active Cancer Diagnosis on the Problem List?: No Quality: Stroke Does the patient have a stroke diagnosis?: No Physical Exam Vital Signs: Vital Signs: Last Vital Signs Temp 97.4 F 10/11/24 07:43 Pulse 69 10/11/24 07:51 Resp 15 10/11/24 07:51 BP 147/80 H 10/11/24 07:52 Pulse Ox 95 10/11/24 07:43 O2 Del Method Room Air 10/11/24 07:43 O2 Flow Rate 96 10/10/24 21:03 BMI result Body Mass Index 22.5 Const: Other: General: Awake alert x3 , in no acute distress. Neck no JVD Resp: CTA bilaterally CVS: S1, S2, R, 2/6 murmur GI: soft, non tender, bowel sounds audible Skin: No rash Neuro: Nonfocal Extremities: No edema Psych: Appropriate affect DS: Data Data Completed and Pending Completed studies during hospitalization [Text1]: Procedures Excision of Stomach, Pylorus, Via Natural or Artificial Opening Endoscopic, Diagnostic (08/26/24) Insertion of Infusion Device into Superior Vena Cava, Percutaneous Approach (07/11/21) Insertion of Tunneled Vascular Access Device into Chest Subcutaneous Tissue and Fascia, Percutaneous Approach (07/11/21) Inspection of Lower Intestinal Tract, Via Natural or Artificial Opening Endoscopic (02/09/23) Inspection of Upper Intestinal Tract, Via Natural or Artificial Opening Endoscopic (02/09/23) Performance of Urinary Filtration, Intermittent, Less than 6 Hours Per Day (08/26/24) Transfusion of Nonautologous Red Blood Cells into Peripheral Vein, Percutaneous Approach (08/26/24) Labs on day of discharge: Laboratory Results - last 24 hr 10/10/24 10/10/24 10/11/24 17:29 21:06 03:54 POC Glucose 133 H 105 Urine Color Yellow Urine Appearance Clear Urine pH >= 9.0 Ur Specific [place] 1.020 Urine Protein >=1000 (4+) H Urine Glucose (UA) 250 H Urine Ketones Trace Urine Blood Negative Urine Nitrite Negative Ur Leukocyte Esterase Negative Urine RBC 0-2 Urine WBC 0-5 Ur Squamous Epith Cells 6-10 Urine Bacteria Trace Hyaline Casts 0-2 10/11/24 10/11/24 07:14 11:15 POC Glucose 101 216 H Urine Color Urine Appearance Urine pH Ur Specific [place] Urine Protein Urine Glucose (UA) Urine Ketones Urine Blood Urine Nitrite Ur Leukocyte Esterase Urine RBC Urine WBC Ur Squamous Epith Cells Urine Bacteria Hyaline Casts Preliminary micro results at discharge 10/10/24 11:20 Blood Culture - Preliminary Blood - Venous No growth after 24 hours. 10/10/24 10:56 Blood Culture - Preliminary Blood - Venous No growth after 24 hours. Discharge Plan Discharge Anticipated Discharge Date/Time: 10/11/24 13:50 Patient Disposition: Home, Self-Care Discharge Diagnosis: Gastroenteritis End-stage renal disease on hemodialysis. Referrals: Patricia Ingram MD [Primary Care Provider] - 1 Week Discharge Medications: Continued amlodipine 10 mg tablet 10 mg PO DAILY 90 Days Qty: 90 3RF atorvastatin 80 mg tablet 80 mg PO BEDTIME Qty: 90 3RF aspirin 81 mg tablet,delayed release (DR/EC) 81 mg PO DAILY 90 Days Qty: 90 0RF Rx Instructions: Need to schedule appt for future refills. ascorbic acid (vitamin C) [Vitamin C] 500 mg tablet 1 tab PO DAILY montelukast 10 mg tablet 10 mg PO BEDTIME budesonide-formoterol [Symbicort] 80-4.5 mcg/actuation HFA aerosol inhaler 2 puff inhalation BID acetaminophen 500 mg tablet 1,000 mg PO Q8H PRN (Reason: Pain) sennosides [senna] 8.6 mg tablet 17.2 mg PO BEDTIME PRN (Reason: diarrhea) polyethylene glycol 3350 17 gram/dose powder 17 g PO BID PRN (Reason: Constipation) insulin aspart U-100 [Novolog FlexPen U-100 Insulin] 100 unit/mL (3 mL) insulin pen See Protocol subcut BIDAC Protocol: Insulin Correction Scale Less than or equal to 110 ---- Give (units): 0 111 to 150 Give (units): 3 151 to 200 Give (units): 5 201 to 250 Give (units): 7 251 to 300 Give (units): 9 301 to 350 Give (units): 11 Greater than 350 Give (units): 13 Call MD if Blood Glucose > : 399 diclofenac sodium 1 % gel 1 g topical TID PRN (Reason: pain) insulin aspart U-100 [Novolog FlexPen U-100 Insulin] 100 unit/mL (3 mL) insulin pen 3 unit subcut DAILY@1200 calcitriol 0.25 mcg capsule 0.75 mcg PO TUTHSA cinacalcet 30 mg tablet 30 mg PO DAILY sevelamer carbonate 800 mg tablet 800 mg PO TIDWM@0800,1200,1700 insulin glargine [Lantus Solostar U-100 Insulin] 100 unit/mL (3 mL) insulin pen 8 unit subcut DAILY insulin glargine [Lantus U-100 Insulin] 100 unit/mL Solution 7 unit SUBCUT BEDTIME docusate sodium 100 mg Capsule 100 mg PO BID PRN (Reason: Constipation) ezetimibe 10 mg tablet 10 mg PO DAILY melatonin 5 mg Tablet 5 mg PO BEDTIME PRN (Reason: Insomnia) carvedilol 3.125 mg Tablet 3.125 mg PO BID Rx Instructions: must administer with a meal/food Brilinta 90 mg Tablet 90 mg PO BID pantoprazole 40 mg tablet,delayed release (DR/EC) 40 mg PO DAILY Rx Instructions: take prilosec 40mg bid x 4 weeks than 1 po daily sertraline 100 mg tablet 150 mg PO DAILY furosemide 40 mg tablet 80 mg PO BID Qty: 240 2RF hydralazine 25 mg tablet 25 mg PO TID Qty: 90 1RF isosorbide mononitrate 30 mg tablet extended release 24 hr 30 mg PO DAILY cholecalciferol (vitamin D3) 25 mcg (1,000 unit) tablet 25 mcg PO DAILY Discharge Orders: Discharge Order (Routine); Ordered 10/11/24 Ordered By: Romina Fortune Diet: Diabetic diet Activity on Discharge: As tolerated Stand Alone Forms: Patient Portal Discharge page Print Language: Martiniquais Care Plan Goals: Acute gastroenteritis resolved End-stage renal disease continue hemodialysis Monday and Saturdays. Continue Lantus and monitor blood sugar closely if noted to have blood pressure less than 100 hold insulin Health Concerns: Diabetes mellitus/hypertension Continue all home medications as before Plan of Treatment: Outpatient follow-up with primary care physician and Nephrology Assessment: As above
[2024-10-11 15:04] VITALS: BP 152/67; PULSE 61
[2024-10-11 15:21] LABS: Glucose, Whole Blood 163 mg/dL (60-115)
[2024-10-11 15:22] VITALS: BP 134/60; PULSE 67; RESP 17; TEMP 36.7; O2SAT 99
--- NOTE | 2024-10-11 18:27 | PC.NURSE ---
Addendum entered by Linda Maldonado RN 10/11/24 18:30: attempted to call all contacted listed wihtout any answer Original Note: patient scheduled to be discharged at 6pm and to be picked up by hao Lau. At 18:28, no one has arrived to pick patient up, Judi was called without answer.
== END 2024-10-11 19:28 | disposition home or self-care (01) | DRG 391 ==
LOC: HO.ED 14:22 → HO.EDOVER 15:00 → HO.S3 16:29
PROVIDERS: Admitting Provider Hospitalist; Emergency Provider Emergency Medicine; PCP Family Medicine; Visit Provider Hospitalist
DX: K29.70 Gastritis, unspecified, without bleeding (principal); N18.6 End stage renal disease; I13.2 Hypertensive heart and chronic kidney disease with heart failure and with stage 5 chronic kidney disease, or end stage renal disease; I50.32 Chronic diastolic (congestive) heart failure; K29.80 Duodenitis without bleeding; K62.89 Other specified diseases of anus and rectum; D63.1 Anemia in chronic kidney disease; E11.22 Type 2 diabetes mellitus with diabetic chronic kidney disease; F39 Unspecified mood [affective] disorder; J44.9 Chronic obstructive pulmonary disease, unspecified; Z99.2 Dependence on renal dialysis; I25.10 Atherosclerotic heart disease of native coronary artery without angina pectoris; Z20.822 Contact with and (suspected) exposure to COVID-19; Z95.5 Presence of coronary angioplasty implant and graft; Z79.4 Long term (current) use of insulin; Z79.82 Long term (current) use of aspirin; Z79.899 Other long term (current) drug therapy
CPT/HCPCS: 0241U; 36415; 74177; 80053; 81001; 82947; 83605; 83690; 85025; 87040; 90999; 93005; 99285; J2405; J2470; Q9967

== ENCOUNTER → 2024-10-10 10:08 | Outpatient (BNV) | payer OTHER, SELFPAY | PROVIDERS: Admitting Provider Hospitalist; Emergency Provider Emergency Medicine; PCP Family Medicine; Visit Provider Internal Medicine | DX: I45.19 Other right bundle-branch block (principal); R94.31 Abnormal electrocardiogram [ECG] [EKG] | CPT/HCPCS: 93010 ==

== ENCOUNTER → 2024-10-10 10:34 | Outpatient (BNV) | payer OTHER, SELFPAY | PROVIDERS: Emergency Provider Emergency Medicine; PCP Family Medicine; Visit Provider Radiology Diagnostic Radiology | DX: R10.9 Unspecified abdominal pain (principal); R11.2 Nausea with vomiting, unspecified; R19.7 Diarrhea, unspecified | CPT/HCPCS: 74177 ==

== ENCOUNTER → 2024-10-10 14:56 | Outpatient (BNV) | payer OTHER, SELFPAY | PROVIDERS: Admitting Provider Hospitalist; Emergency Provider Emergency Medicine; PCP Family Medicine; Visit Provider Hospitalist | DX: K29.70 Gastritis, unspecified, without bleeding (principal); N18.6 End stage renal disease; K62.89 Other specified diseases of anus and rectum; K20.90 Esophagitis, unspecified without bleeding | CPT/HCPCS: 99223 ==

== ENCOUNTER → 2024-10-25 13:10 | Outpatient (REF) | payer OTHER, SELFPAY ==
--- NOTE | 2024-10-25 13:14 | CA_ITS ---
Transthoracic Echocardiogram Patient (Last, First, Middle): Kavitha Padilla, Gender: Female Date of : 1955 Age: 69 Procedure Date: 10/25/2024 Procedure Type: Transthoracic Echocardiogram Location: OP Height: 149.86 cm Weight: 51.26 kg BSA: 1.45 m2 Heart Rate: 61 bpm BP: 116 / 60 mmHg Reaming Machine Operator For Plastic: CASEY Referring MD: Harsha Sinha DATA WAREHOUSE DEVELOPER Area Operations Manager: Jacob Barraza MD Symptoms: I35.0 - Nonrheumatic aortic (valve) stenosis Study Quality: Adequate ECG Rhythm: Sinus Conclusions: - 1. Normal LV ejection fraction of 60 65% with mild LVH with impaired relaxation filling pattern with elevated filling pressures 2. Mildly dilated left atrium 3. Huua-bh-hswyredi aortic stenosis 4. Normal RV systolic pressure 5. No gross pericardial effusion Findings Left Ventricle Normal left ventricular size and systolic function. There is mildly increased left ventricular wall thickness. The visually estimated ejection fraction is between 60-65%. Spectral Doppler is indicative of an impaired relaxation filling pattern. Elevated filling pressures. E/E prime ratio is >15, consistent with elevated filling pressures. Right Ventricle Normal right ventricular cavity size and systolic function. Atria The left atrium is mildly dilated. There is no evidence of interatrial shunt. The right atrium is likely dilated. Aortic Valve There is mild calcification of the aortic valve. There is mild to moderate aortic valve stenosis. The peak aortic gradient is 25 mmHg.The mean gradient is 14 mmHg. The aortic valve area is 1.12 cm2. There is no aortic valve regurgitation. Possibly bicuspid aortic valve, this can not be entirely ruled out Mitral Valve There is mild anterior and posterior mitral leaflet thickening. There is mild posterior mitral annular calcification. There is trace mitral valve regurgitation. There is no mitral valve stenosis. Pulmonic Valve The pulmonic valve was not well visualized. Tricuspid Valve Likely normal tricuspid valve structure and function. There is trace tricuspid valve regurgitation. The right ventricular systolic pressure is normal. The right ventricular systolic pressure is 25 mmHg. Normal right atrial pressure. There is no evidence of pulmonary hypertension. Great Vessels All visible segments of the aorta are normal in size. The pulmonary artery was not well visualized. There is no dilatation of the ascending aorta measuring 3.00 cm. Venous The inferior vena cava is normal in size and collapses greater than 50% with inspiration. Pericardium/Pleural There is no evidence of pericardial effusion. Prior Study Comparison Changes noted compared to prior study dated: 09/13/2021. dume-ba-vzdzedtk aortic stenosis noted Measurements 2D Linear Measurements IVSd: 1.27 0.6-0.9/0.6-1.0 cm LVIDd: 4.02 3.9-5.3/4.2-5.9 cm LVIDd Index: 2.77 2.4-3.2/2.2-3.1 cm/m2 LVIDs: 2.73 2.0-3.6 cm LVPWd: 1.24 0.7-1.1 cm LA Diam: 3.50 2.7-3.8/3.0-4.0 cm LAIDs Index: 2.41 1.5-2.3 cm/m2 LV Mass: 222.02 67-162/88-224 g LV Mass Index: 153.12 43-95/49-115 g/m2 LVOT Diam: 1.90 3.0+(-)1.3 cm Mitral Valve MV VTI: 0.40 MV Pk Anton: 1.16 MV Mn Anton: 0.62 MV Pk Grad: 5.00 MV Mn Grad: 2.00 MV Pk E: 1.17 MV PK A: 1.15 MV Decel Time: 239.00 E/A: 1.00 E'Lateral: 7.07 E'Medial: 4.03 E/E' Med: 29.00 E/E' Lat: 16.50 MVA Continuity: 1.67 Aortic Valve AoV Pk Anton: 2.49 AoV Mn Anton: 1.68 AoV VTI: 0.59 AoV Pk Grad: 25.00 Aov Mn Grad: 14.00 CEDRIC Cont.VTI: 1.12 LVOT LVOT Pk Anton: 0.84 LVOT Mn Anton: 0.55 LVOT VTI: 0.23 LVOT Pk Grad: 3.00 LVOT Mn Grad: 2.00 LVOT Diam: 1.90 LVOT Area: 2.84 Diastolic Function MV Pk E: 1.17 MV Pk A: 1.15 E/A: 1.00 E'Medial: 4.03 E/E' Med: 29.00 E' Laterial: 7.07 E/E' Lat: 16.50 Right Ventricle TAPSE (mm): 16.10 TVS' Anton: 7.00 Tricuspid Valve TR Pk Anton: 2.33 TR Pk Grad: 22.00 RA Press: 3.00 RVSP: 25.00 Great Vessels Aorta Sinus of Valsalva: 2.50 2.0-3.5 cm Ao Asc: 3.00 2.1-3.4 cm Pulmonary Valve PV Pk Anton: 1.18 Peak PV Grad: 6.00 Updated in Other Vendor System with Status of Final Jacob Barraza MD electronically signed on 10/26/2024 11:13:45 AM with status of Final
== END ==
LOC: HO.CARD 13:10
PROVIDERS: PCP Family Medicine; Visit Provider Nurse Practitioner Family
DX: I35.0 Nonrheumatic aortic (valve) stenosis (principal)
CPT/HCPCS: 93306

== ENCOUNTER → 2024-10-25 13:14 | Outpatient (BNV) | payer OTHER, SELFPAY | PROVIDERS: PCP Family Medicine; Visit Provider Internal Medicine Cardiovascular Disease | DX: I35.0 Nonrheumatic aortic (valve) stenosis (principal); I35.8 Other nonrheumatic aortic valve disorders; I34.81 Nonrheumatic mitral (valve) annulus calcification | CPT/HCPCS: 93306 ==

== ENCOUNTER 2024-11-29 12:48 | Outpatient (AMB) | payer OTHER, SELFPAY ==
--- NOTE | 2024-11-29 13:02 | MHC.OFFVIS ---
Vital Signs 11/29/24 13:03 Height 5 ft 2 in Weight 114 lb 10.246 oz BMI 21.0 BP 118/63 Blood Pressure Location Rt brachial Position Sitting Pulse 63 Pulse Source Pulse Oximeter Intake Visit Reasons: 1 mo follow-up Java Core Developer Required: Yes Java Core Developer Name: [id number] Allergies No Known Allergies Allergy (Verified 10/10/24 08:19) Medication List - Last Reconciled 11/29/24 by Harsha Sinha NP acetaminophen 1,000 mg PO Q8H PRN amlodipine 10 mg PO DAILY 90 days ascorbic acid (vitamin C) (Vitamin C) 1 tab PO DAILY aspirin 81 mg PO DAILY 90 days atorvastatin 80 mg PO BEDTIME budesonide-formoterol 80-4.5 mcg/actuation (Symbicort) 2 puffs inhalation BID calcitriol 0.75 mcg PO TUTHSA carvedilol 3.125 mg PO BID cholecalciferol (vitamin D3) 25 mcg PO DAILY cinacalcet 30 mg PO DAILY diclofenac sodium 1% 1 g topical TID PRN docusate sodium 100 mg PO BID PRN ezetimibe 10 mg PO DAILY furosemide 80 mg (2 x 40 mg) PO BID hydralazine 25 mg PO TID insulin aspart U-100 (Novolog FlexPen U-100 Insulin aspart) See Protocol sliding scale doses subcut BIDAC insulin aspart U-100 (Novolog FlexPen U-100 Insulin aspart) 3 units subcut DAILY@1200 insulin glargine (Lantus Solostar U-100 Insulin) 8 units subcut DAILY insulin glargine (Lantus U-100 Insulin) 7 units subcut BEDTIME isosorbide mononitrate ER 30 mg PO DAILY melatonin 5 mg PO BEDTIME PRN montelukast 10 mg PO BEDTIME pantoprazole 40 mg PO DAILY polyethylene glycol 3350 17 grams PO BID PRN sennosides (senna) 17.2 mg PO BEDTIME PRN sertraline 150 mg PO DAILY sevelamer carbonate 800 mg PO TIDWM@0800,1200,1700 ticagrelor (Brilinta) 90 mg PO BID HPI Comments Details: This is a 69-year-old female patient who is accompanied by her daughter is here for her follow-up visit. Patient is Romansh-speaking and virtual chemical process equipment operator was used throughout the visit. Patient with medical history significant for hypertension, hyperlipidemia, diabetes, sleep apnea, coronary artery disease status post CABG in 2018, recent PCI on 08-24, aortic stenosis, and end-stage renal disease on dialysis. At her last visit, patient reported intermittent chest pressure which was random in nature along with elevated blood pressures. She was started on isosorbide and her hydralazine was restarted for which she had previously stopped for unclear reasons. Today, the patient reports feeling well overall and denies any cardiac symptoms including exertional chest pain, shortness of breath, palpitations, dizziness, orthopnea, PND, leg edema, presyncope or syncope. The patient was recently hospitalized for abdominal pain, nausea, vomiting for which she was treated with antiemetics PPI and IV fluids. Today, the patient's primary concern is some abdominal discomfort and during hospitalization her CT abdomen showed gastritis, duodenitis, and proctitis. Patient is otherwise reporting compliance with all her medications. 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 End stage chronic kidney disease Edema Atherosclerotic cardiovascular disease SHELIA (obstructive sleep apnea) Hypercalcemia Asthma DJD (degenerative joint disease) Chronic kidney disease Other and unspecified hyperlipidemia Type 2 diabetes mellitus with unspecified complications Essential hypertension Surgical History History of hemorrhoidectomy (01/30/23) H/O colonoscopy Hemorrhoids H/O angioplasty History of tubal ligation History of coronary artery bypass graft (~2017) Family History Father Cardiovascular disease Hypertension Mother Cardiovascular disease Hypertension Social History Household Members: Family Household Members Other:: son Housing: Apartment Housing Other:: senior apartment Are you a primary urgent care physician assistant to a significant other at home: No Do you presently have visiting nurse or other home services: Yes ([facility]) Alcohol intake: never Patient Tobacco Use Status: Never used Tobacco Second Hand Smoke Exposure: No Advance Directives Date on File: 12/03/20 service: No 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al status: disabled 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 Female Reproductive History Menstrual Age of Menarche: 12 Review of Systems Const Denies weakness ENT Denies dizziness Card Denies chest pain, Denies chest pain with activity, Denies syncope, Denies rapid heart rate, Denies pedal edema, Denies edema, Denies leg edema, Denies lightheadedness, Denies palpitations, Denies dyspnea, Denies dyspnea on exertion and Denies orthopnea Resp Denies cough, Denies dyspnea and Denies dyspnea on exertion GI Denies hematochezia and Denies change in stool character Musc Denies abnormal gait, Denies muscle cramps, Denies muscle weakness, Denies numbness, Denies radiating pain into limb and Denies tingling Neuro Denies abnormal gait, Denies dizziness, Denies syncope, Denies numbness, Denies tingling and Denies weakness Endo Denies palpitations Physical Exam Vital Signs: Last Vital Signs Pulse 63 11/29/24 13:03 BP 118/63 11/29/24 13:03 BMI result Body Mass Index 21.0 Const General: cooperative, healthy appearing, comfortable and no acute distress Orientation/consciousness: patient oriented x3 HEENT Head: Yes normal to inspection Neck Neck: Yes normal visual inspection, Yes trachea midline and Yes supple Chest Chest palpation & inspection: normal inspection of the chest Resp Effort & Inspection: normal respiratory effort Auscultation: clear to auscultation bilaterally, no crackles, no rales, no rhonchi and no wheezes Cardio Jugular venous distension: no JVD Palpation: normal PMI Rate: regular rate Rhythm: regular rhythm Heart sounds: S1 normal heart sound present, S2 normal heart sound present, no click, no gallops, Murmur heart sound present systolic at the right sternal border and no rubs Peripheral pulses: Peripheral pulses 2+ throughout GI Inspection: Yes normal to inspection Palpation (GI): Soft to palpation Auscultation: normal bowel sounds Skin General skin exam: no rashes or lesions noted Neuro General: patient oriented x3 Extrem General: Yes normal to inspection, No no pedal edema and No calf tenderness Psych Appearance: grossly normal Mental Status: mental status grossly normal Speech and movement: Normal speech and movement present Assessment & Plan Assessment & Plan (1) Essential hypertension: Code(s): I10 - Essential (primary) hypertension Category: Medical Plan: Blood pressure today was well-controlled. Continue current regimen. Advised patient to monitor her blood pressures at home. Ideally blood pressure goal for patient less than 130/80. (2) Atherosclerotic cardiovascular disease: Comment: w/CABG 2017 Code(s): I25.10 - Atherosclerotic heart disease of enterprise coronary artery without angina pectoris Category: Medical Plan: Continue Repatha, high-dose statin therapy, Zetia. LDL goal less than 70. Patient has pending labs that she states will be done early next week. (3) S/P cardiac cath: Code(s): Z98.890 - Other specified postprocedural states Category: Surgical Plan: Continue lifelong aspirin therapy. Continue uninterrupted Brilinta therapy for at least 12 months. No reported signs of bleeding. We will repeat CBC. (4) ESRD (end stage renal disease) on dialysis: Code(s): N18.6 - End stage renal disease; Z99.2 - Dependence on renal dialysis Category: Medical Plan: On dialysis, followed by Nephrology. (5) Type 2 diabetes mellitus with unspecified complications: Code(s): E11.8 - Type 2 diabetes mellitus with unspecified complications Category: Medical Plan: Continue aggressive management of diabetes. Ideally A1c goal less than 7.0. (6) Hospital discharge follow-up: Code(s): Z09 - Encounter for follow-up examination after completed treatment for conditions other than malignant neoplasm Plan: In regards to her abdominal discomfort, advised patient to follow with Dr. Villegas's office who has seen her in the past for GI issues. Advised heart healthy diet, regular exercise as tolerated, and aggressive management of vascular risk factors. Emphasized on medication compliance. Follow up in 3 months' time, sooner if needed. In the interim, patient will call us with any questions or change in symptoms. This note was generated using voice recognition software. While every effort has been made to ensure accuracy and proper rental clerk tool and equipment, there may be occasional errors that could affect the content or meaning of the described symptoms. Coding Level of Care Code Est Pt Level 4 (62752) Complex EM visit Add On G2211 Diagnoses Essential hypertension I10 Atherosclerotic cardiovascular disease I25.10 S/P cardiac cath Z98.890 ESRD (end stage renal disease) on dialysis N18.6; Z99.2 Type 2 diabetes mellitus with unspecified complications E11.8 Hospital discharge follow-up Z09 Time Spent (min) 34 Comment This note was generated using voice recognition software. While every effort has been made
[2024-11-29 13:03] VITALS: BP 118/63; PULSE 63; BMI 21.0
--- OUTSIDE RECORDS SUMMARY | 2024-11-29 13:13 | XMS_ITS | Encounter Summary ---
Author Organization [facility] Address [address] [facility] [address] [facility] [address] [place] [address] Phone Care Team Providers Care Line Rider Name Role Phone Patricia Ingram MD Primary Care Provider [phone] Reason for Visit * Reason Comments Med Refill Encounter Details Date Type Department Care Team (Late st Contact Info) Description 09/07/2022 Refill [facility] [address] [place] [phone] Kentrell Leos MD Social History Tobacco Use [...] on filedocumented in this encounter Care Teams Line Rider Relationship Specialty Start Date End Date Patricia Ignram MD [address] [place] [address] PCP - General 08/10/20 documented as of this encounter
--- OUTSIDE RECORDS SUMMARY | 2024-11-29 13:13 | XMS_ITS | Encounter Summary ---
Author Organization [facility] Address [address] [facility] [address] [place] [address] Phone Care Team Providers Care Game And Fish Protector Name Role Phone Patricia Ingram MD Primary Care Provider [phone] Reason for Visit * Reason Comments Med Refill Encounter Details Date Type Department Care Team ([facility] st Contact Info) Description 09/07/2021 Refill [facility] [address] [place] [phone] Yared Powell MD [address] [facility] [address] [place] [phone] Social History Tobacco Use Types Packs/Day Years [...] on filedocumented in this encounter Care Teams Game And Fish Protector Relationship Specialty Start Date End Date Patricia Ingram MD [address] [place] [id number] PCP - General 08/10/20 documented as of this encounter
--- OUTSIDE RECORDS SUMMARY | 2024-11-29 13:13 | XMS_ITS ---
Author Organization [facility] Address [address] [place] [address] Care Team Providers Care Circulation Worker Name Role Phone Juan Jose DELGADILLO, Patricia Primary Care Provider Brandt Collazo Jr REASON FOR VISIT GI bleed Encounters Encounter Location Date Provider Diagnosis [facility] [place] [address] [place], [place] [phone] 08/28/2024 Brandt Villegas Jr Plan Of Treatment No Information Progress Notes * CARL HASSANDOB:1955 (69 yo F)Acc No.[id number]:08/28/2024 EGD/MAC Patient:?SONYA CARL Provider:?Brandt Villegas MD :1955???Age:69 Y???Sex:Female D ate:08/28/2024 Address:[address] [place], [place] [id number] Pcp:Patricia Ingram MD Subjective: * Chief Complaints: [...] MD Date:?0 08/28/2024 Generated for Dia davis/Glynn/eTransmitting on:?11/29/2024 01:13 PM EDT
--- OUTSIDE RECORDS SUMMARY | 2024-11-29 13:13 | XMS_ITS | Encounter Summary ---
Author Organization [facility] Address [address] [facility] [address] [place] [address] Phone Care Team Providers Care Teacher Instrumental Name Role Phone Patricia Ingram MD Primary Care Provider [phone] Reason for Visit * Reason Comments Med Refill Encounter Details Date Type Department Care Team (Late st Contact Info) Description 11/08/2022 Refill [facility] [address] AMAYA [address] [place] [address] Feliciano Baldwin MD Social History Tobacco Use [...] on filedocumented in this encounter Care Teams Teacher Instrumental Relationship Specialty Start Date End Date Patricia Ingram MD [address] [place] [address] PCP - General 08/10/20 documented as of this encounter
--- OUTSIDE RECORDS SUMMARY | 2024-11-29 13:13 | XMS_ITS | Patient Health Record ---
Author Organization [facility] Address [address] [place] [address] Care Team Providers Care Concaver Name Role Phone Juan Jose DELGADILLO, Patricia Primary Care Provider Brandt Collazo Jr Unavailable [phone] Results Component Value Reference Range Notes Type and Screen Reviewed date:08/29/2024 10:35:21 AM Interpretation: Performing Lab:[facility], [address] [place] [phone] Notes/Report: Results at Issue Units as of [...] Cells Reviewed date:08/29/2024 10:35:28 AM Interpretation: Performing Lab:[facility], [address] [place] [phone] Notes/Report: Red Blood Cells [id number] OP RC Red Blood Cells NOT AVAILABLE Red Blood Cells [id number] OP RC Red Blood Cells TRANSFUSED 08/26/24 0454 Red Blood Cells [id number] BP RC Red Blood Cells TRANSFUSED 08/26/24 1500 Complete Blood Count no Diff Reviewed date:08/28/2024 07:49:19 AM Interpretation: Performing Lab:[facility], [address] [place] [address] Notes/Report: White Blood Count 5.1 4.8-10.8 X10*3/uL [...] Pathology Reviewed date:09/04/2024 08:03:17 AM Interpretation: Performing Lab:[facility], [address] [place] [phone] Notes/Report: -- Name: Kavitha Hassan Age/Sex: 69/F : 1955 Unit#: [id number] Attend Dr: Romina Fortune MD Re08/26/24 Status : DIS IN Location: [facility] 483-1 Disch: 08/29/24 -- SPEC : [id number] RECD: 08/29/24 STATUS: JERRY REAlexandra NUM: [id number] JOSE ALFREDO: 08/28/24-1424 [facility] DR: Brandt Villegas MD ENTERED: 08/29/24 [...] copic examination, 2 pieces in cassette A. [facility] Special stains order ed and performed: A/B PAS on A; immunostain for H pylori on A. Copies To: Brandt Villegas MD [facility] [address] [place] [address] Romina Fortune MD [address] [place] [address] CONTINUED ON NEXT PAGE -- Name: SonyaKavitha Age/Sex: 69/F : 1955 Unit#: [id number] Attend Dr: Romina Fortune MD Re08/26/24 Status : DIS IN Location: [facility] 483-1 Disch: 08/29/24 -- SPEC : [id number] RECD: 08/29/24 STATUS: JERRY ALEMAN: [id number] JOSE ALFREDO: 08/28/24-1424 [facility] DR: Brandt Villegas MD ENTERED: 08/29/24- 49 SP TYPE: Surgical OTHR DR: Romina Fortune MD, Nao MD ORDERED: HE Stain/3, Gross Micro L4, IHC, Special st. 2, H. pylori, AB/PAS Copies To: (Continued) Patricia Ingram MD [address] [address] -- Signed (si gnature on file) Luci Alvarado MD 08/30/24 8465 -- END OF REPORT Reason For Referral [...] Active Encounters Encounter Location Date Provider Diagnosis [facility] [address] [place], [place] [phone] 08/28/2024 Brandt Villegas Jr [facility] [address] [place] [address] 09/04/2024 Brandt Villegas Jr Plan Of Treatment No Information Insurance Providers Payer Name Payer Address Payer Phone Subscriber Number Group Number Insured Name Patient Relationship to Insured Coverage Start Date Coverage End Date [facility] [address] Attn Claims [place] [address] [id number] KAVITHA HASSAN Self - patient is the insured
--- OUTSIDE RECORDS SUMMARY | 2024-11-29 13:14 | XMS_ITS | Encounter Summary ---
Author Organization [facility] Address [address] [facility] [address] [place] [address] Phone Care Team Providers Care Cloth Bale Header Name Role Phone Patricia Ingram MD Primary Care Provider [phone] Reason for Visit * Reason Comments Med Refill Encounter Details Date Type Department Care Team ([facility] st Contact Info) Description 04/29/2021 Refill [facility] [address] AMAYA [address] [place] [phone] Yared Powell MD [address] [facility] [address] [place] [phone] Social History Tobacco Use Types Packs/Day Years [...] on filedocumented in this encounter Care Teams Cloth Bale Header Relationship Specialty Start Date End Date Patricia Ingram MD [address] [place] [address] PCP - General 08/10/20 documented as of this encounter
--- OUTSIDE RECORDS SUMMARY | 2024-11-29 13:14 | XMS_ITS | Encounter Summary ---
Author Organization [facility] Address [address] [facility] [address] [place] [address] Phone Care Team Providers Care Animal Care Worker Name Role Phone Patricia Ingram MD Primary Care Provider [phone] Encounter Details Date Type Department Care Team (Late st Contact Info) Description 12/21/2020 Orders Only [facility] [address] AMAYA [address] [place] [phone] Yared Powell MD [address] [facility] [address] [place] [phone] Nephrotic range proteinuria; Renal disorder due to [...] osteodystrophy documented in this encounter Care Teams Animal Care Worker Relationship Specialty Start Date End Date Patricia Ingram MD [address] [place] [address] PCP - General 08/10/20 documented as of this encounter
--- OUTSIDE RECORDS SUMMARY | 2024-11-29 13:14 | XMS_ITS | Clinical Summary ---
Author Organization [facility] Address [address] [facility] [address] [place] [address] Phone Care Team Providers Care Assistant Portfolio Manager Name Role Phone Patricia Ingram MD Primary Care Provider [phone] Allergies No known active allergies Medications amLODIPine [...] Encounters Date Type Department Care Team Description 11/28/2024 Treatment [facility] [address] [address] Driss Alatorre MD End stage renal disease; Dependence on renal dialysis 11/19/2024 Treatment [facility] [address] [phone] Driss Alatorre MD End stage renal disease; Dependence on renal dialysis 11/12/2024 Treatment [facility] [address] [address] Driss Alatorre MD End stage renal disease; Dependence on renal dialysis 11/05/2024 Treatment [facility] [address] [phone] Driss Alatorre MD End stage renal disease; Dependence on renal dialysis 10/29/2024 Treatment [facility] [address] [phone] Driss Alatorre MD End stage renal disease; Dependence on renal dialysis 10/15/2024 Treatment [facility] [address] [address] Driss Alatorre MD End stage renal disease; Dependence on renal dialysis 10/08/2024 Treatment [facility] [address] [address] Driss Alatorre MD End stage renal disease; Dependence on renal dialysis 10/03/2024 Treatment [facility] [address] [address] Driss Alatorre MD End stage renal disease; Dependence on renal dialysis 10/01/2024 Treatment [facility] [address] [address] Driss Alatorre MD End stage renal disease; Dependence on renal dialysis 09/17/2024 Treatment [facility] [address] [address] Driss Alatorre MD 09/12/2024 Treatment [facility] [address] [address] Driss Alatorre MD 09/10/2024 Treatment [facility] [address] [address] Driss Alatorre MD 09/05/2024 Orders Only [facility] [address] [address] Driss Alatorre MD 09/03/2024 Treatment [facility] [address] [address] Driss Alatorre MD from Last 3 Months Immunizations Immunization Administration Dates Next Due Hepatitis B 12/17/2013,03/22/2013,02/06/2008 [...] Diabetes: Visual Foot Exam 08/30/2020 Pneumococcal Vaccine: 50+ Ye ars (4 of 4 - PCV20 or PCV21) 10/24/2023 10/23/2018, 04/25/2017, 05/04/2011 Diabetes: Hemoglobin A1C 01/30/2025 025, 08/21/2024, 08/08/2024, Additional history exists Pneumococcal Vaccine: Peds ( 0 to 5 Years) and At-Risk Patients (6 to 49 Years) Discontinued 10/23/2018, 04/25/2017, 05/04/2011 Influenza Vaccine Completed 04/17/2024, , 04/15/2020, Additional history exists Procedures Procedure Name Priority Date/Time Associated Diagnosis Comments HEMOGLOBIN AND HEMATOCRIT, BLOOD Routine 11/14/2024 3:00 AM EDT HEMOGLOBIN A1C Routine 10/31/2024 3:00 AM EDT TRANSFERRIN SATURATION Routine 3:00 AM EDT PROTEIN, TOTAL, SERUM Routine 10/31/2024 3:00 AM EDT MAGNESIUM Routine 10/31/2024 3:00 AM EDT ELECTROLYTE PANEL Routine 10/31/2024 3:0 0 AM EDT LIPID PANEL Routine 10/31/2024 3:00 AM EDT LIH (HC) Routine 10/31/2024 3:00 AM EDT LACTATE DEHYDROGENASE Routine 10/31/2024 3:00 AM EDT GLUCOSE, RANDOM Routine 10/31/2024 3:00 AM EDT CREATININE, SERUM Routine 10/31/2024 3:0 0 AM EDT BILIRUBIN, TOTAL Routine 10/31/2024 3:00 AM EDT AST Routine 10/31/2024 3:00 AM EDT ALT Routine 10/31/2024 3:00 AM EDT ALKALINE PHOSPHATASE Routine 10/31/2024 3:00 AM EDT CALCIUM PHOSPHORUS PRODUCT, ADJUSTED (HC) Routine 10/31/2024 3:00 AM EDT FERRITIN Routine 10/31/2024 3:00 AM EDT PTH, INTACT Routine 10/31/2024 3:00 AM EDT CBC AND DIFFERENTIAL Routine 10/31/2024 3:00 AM EDT KT/V NATURAL LOG, URR (HC) Routine 10/31/2024 3:00 AM EDT HEMOGLOBIN Routine 10/24/2024 3:00 AM EDT LIH (HC) Routine 10/17/2024 3:00 AM EDT POTASSIUM Routine 10/17/2024 3:00 AM EDT HEMOGLOBIN AND HEMATOCRIT, BLOOD Routine 10/17/2024 3:00 AM EDT HEMOGLOBIN Routine 10/08/2024 3:00 AM EDT FERRITIN [...] Routine 10/03/2024 3:0 0 AM EST LIH (HC) Routine 10/03/2024 3:00 AM EST AST Routine 10/03/2024 3:00 AM EST BILIRUBIN, TOTAL Routine 10/03/2024 3:00 AM EST CALCIUM PHOSPHORUS PRODUCT, ADJUSTED (HC) Routine 10/03/2024 3:00 AM EST ALT Routine 10/03/2024 3:00 AM EST ALKALINE PHOSPHATASE Routine 10/03/2024 3:00 AM EST KT/V NATURAL LOG, URR (HC) Routine 10/03/2024 3:00 AM EST CBC AND [...] URR (HC) Routine 09/05/2024 3:00 AM EST from Last 3 Months Results * (ABNORMAL) Hemoglobin and hematocrit (11/14/2024 3:00 AM EDT) Only the most recent of3 resultswithin the time period is included. Hgb 10.5(L) 11.2 - 15.7 g/dL [facility] Hematocrit 32.4(L) 34.1 - 44.9 % [facility] Hemoglobin x 3 31.5(L) 33.6 - 47.1 g/dL [facility] 11/14/2024 3:00 AM EDT 11/15/2024 12:46 PM EDT us Driss Alatorre MD LAB BLOOD ORDERABLES Final Resul t Performing Organization Address City/[facility]/ZIP Co de Phone Number APS [facility] [address] [place] [address] * LIH (10/31/2024 3:00 AM EDT) Only the most recent of4 resultswithin the time period is included. Lipemia Normal Normal [facility] Icterus Normal Normal [facility] Hemolysis Normal Normal [facility] 10/31/2024 3:00 AM EDT 11/02/2024 1:10 PM EDT us Driss Alatorre MD LAB [id number] ICITED RESULTS Final Result Performing Organization Address [facility]/ZIP Co de Phone Number [facility]PS [facility] [address] [place] [address] * (ABNORMAL) Kt/V Natural Log, URR (10/31/2024 3:00 AM EDT) Only the most recent of3 resultswithin the time period is included. Treatment Time 187 min [facility] Pre-Weight, lb 53.4 kg [facility] Post-Weight, lb 51.6 kg [facility] Ultrafiltration Rate 11 <=13 mL/kg/hr [facility] Comment: Recommend achieving Ultrafiltration Rate (UFR) <=10 mL/kg/hr References: Kendy VELÁSQUEZ et al. Kidney Int. 2010; 79(2):250-257 BUN Post Dialysis 8 7 - 25 mg/dL [facility] BUN 36(H) 7 - 25 mg/dL [facility] UREA REDUCTION RATIO (%) 78 >=65 % [facility] Kt/V Natural Log 1.74 >=1.2 [facility] 10/31/2024 3:00 AM EDT 11/02/2024 1:10 PM EDT Driss Alatorre MD LAB [id number] ICITED RESULTS Final Result Performing Organization Address [facility] Co de Phone Number [facility]PS [facility] [address] [place] [address] * (ABNORMAL) Calcium Phosphorus Product, Adjusted (10/31/2024 3:00 AM EDT) Only the most recent of3 resultswithin the time period is included. Albumin 4.4 3.6 - 5.4 g/dL [facility] Calcium 9.6 8.6 - 10.3 mg/dL [facility] Phosphorus, Serum 6.1(H) 2.5 - 5.0 mg/dL [facility] Ca*PO4 58.6(A) <55.0 mg2/dL2 [facility] Calcium, Adjusted Total 9.6 8.6 - 10.3 mg/dL [facility] CA*PO4 CORRCTD 58.6(A) <55.0 mg2/dL2 [facility] 10/31/2024 3:00 AM EDT 11/02/2024 1:10 PM EDT Driss Alatorre MD LAB [id number] ICITED RESULTS Final Result Performing Organization Address [facility]/State/ZIP Co de Phone Number [facility] [address] [place] [address] * (ABNORMAL) TSAT (10/31/2024 3:00 AM EDT) Only the most recent of3 resultswithin the time period is included. Iron 32(L) 50 - 170 ug/dL [facility] Transferrin 127(L) 250 - 380 mg/dL [facility] TIBC 178(L) 211 - 406 ug/dL [facility] Iron Saturation (TSat) 18(L) 22 - 52 % [facility] 10/31/2024 3:00 AM EDT 11/02/2024 1:10 PM EDT Driss Alatorre MD LAB BLOOD ORDERABLES Final Resul t [facility] [address] [place] [address] * (ABNORMAL) CBC and Differential (10/31/2024 3:00 AM EDT) Only the most recent of3 resultswithin the time period is included. Pathologist [facility] DIFFERENTIAL MANUAL, 2 Not Indicated [facility] White Blood Cells 4.4 4.0 - 10.0 K/uL [facility] RBC 3.10(L) 3.93 - 5.22 M/uL [facility] Hgb 9.7(L) 11.2 - 15.7 g/dL [facility] Hemoglobin x 3 29.1(L) 33.6 - 47.1 g/dL [facility] Hematocrit 29.6(L) 34.1 - 44.9 % [facility] MCV 95.5(H) 79.4 - 94.8 fL [facility] MCH 31.3 25.6 - 32.2 pg [facility] MCHC 32.8 32.2 - 35.5 g/dL [facility] Platelets 199 182 - 369 K/uL [facility] RDW 14.8(H) 11.7 - 14.4 % [facility] Neutrophils Relative 70.9 34.0 - 71.1 % [facility] Lymphocytes Relative 19.7 19.3 - 51.7 % [facility] Monocytes 6.9 4.7 - 12.5 % [facility] Eosinophils Relative 1.1 0.7 - 5.8 % [facility] Basophils Relative 0.7 0.1 - 1.2 % [facility] Immature Granulocytes 0.7 0.0 - 1.0 % [facility] 10/31/2024 3:00 AM EDT 11/02/2024 1:38 PM EDT us Driss Alatorre MD LAB BLOOD ORDERABLES Final Resul t Performing Organization Address [facility] de Phone Number [facility] [address] [place] [address] * (ABNORMAL) ALT (10/31/2024 3:00 AM EDT) Only the most recent of3 resultswithin the time period is included. ALT (SGPT) <7(L) 10 - 49 U/L [facility] 10/31/2024 3:00 AM EDT 11/02/2024 1:10 PM EDT us Driss Alatorre MD LAB BLOOD ORDERABLES Final Resul t Performing Organization Address [facility] de Phone Number [facility] [address] [place] [address] * AST (10/31/2024 3:00 AM EDT) Only the most recent of3 resultswithin the time period is included. AST (SGOT) 11 <34 U/L [facility] 10/31/2024 3:00 AM EDT 11/02/2024 1:10 PM EDT us Driss Alatorre MD LAB BLOOD ORDERABLES Final Resul t Performing Organization Address [facility] de Phone Number [facility] [address] [place] [address] * Protein, total (10/31/2024 3:00 AM EDT) Only the most recent of3 resultswithin the time period is included. Total Protein 6.9 6.4 - 8.9 g/dL [facility] 10/31/2024 3:00 AM EDT 11/02/2024 1:10 PM EDT us Driss Alatorre MD LAB BLOOD ORDERABLES Final Resul t Performing Organization Address [facility] Co de Phone Number [facility] [address] [place] [address] * (ABNORMAL) Alkaline phosphatase (10/31/2024 3:00 AM EDT) Only the most recent of3 resultswithin the time period is included. Alkaline Phosphatase 163(H) 46 - 116 U/L [facility] 10/31/2024 3:00 AM EDT 11/02/2024 1:10 PM EDT us Driss Alatorre MD LAB BLOOD ORDERABLES Final Resul t Performing Organization Address [facility] de Phone Number [facility]PS [facility] [address] [place] [address] * (ABNORMAL) PTH, Intact (10/31/2024 3:00 AM EDT) Only the most recent of3 resultswithin the time period is included. PTH, Intact 1,922(H) 160 - 721 pg/mL [facility] Comment: Suggested (KDIGO) ESRD maintenance range is two to nine times the upper normal limit (80.1 pg/mL) for the laboratory. 10/31/2024 3:00 AM EDT 11/02/2024 1:10 PM EDT us Driss Alatorre MD LAB BLOOD ORDERABLES Final Resul t Performing Organization Address [facility] de Phone Number [facility] [address] [place] [address] * Magnesium (10/31/2024 3:00 AM EDT) Only the most recent of3 resultswithin the time period is included. Magnesium 2.5 1.9 - 2.7 mg/dL [facility] 10/31/2024 3:00 AM EDT 11/02/2024 1:10 PM EDT Driss Alatorre MD LAB BLOOD ORDERABLES Final Resul t Performing Organization Address City/[facility] de Phone Number [facility] [address] [place] [address] * Lactate dehydrogenase (10/31/2024 3:00 AM EDT) Only the most recent of3 resultswithin the time period is included. LDH 230 120 - 246 U/L [facility] 10/31/2024 3:00 AM EDT 11/02/2024 1:10 PM EDT Driss Alatorre MD LAB BLOOD ORDERABLES Final Resul t Performing Organization Address [facility] de Phone Number [facility] [address] [place] [address] * (ABNORMAL) Hemoglobin A1c (10/31/2024 3:00 AM EDT) Hemoglobin A1C 6.0(H) <5.7 % [facility] Comment: Methodology: Enzymatic HbA1c (NGSP %) ?Suggested Diagnosis >6.4% ? Diabetic 5.7-6.4% ?Pre-Diabetic <5.7% ? Non-Diabetic Diabetic Glucose Control Evaluation: Therapeutic action suggested at >8.0% ADA recommends a glycemic goal of <7.0% 10/31/2024 3:00 AM EDT 11/02/2024 1:38 PM EDT Driss Alatorre MD LAB BLOOD ORDERABLES Final Resul t Performing Organization Address [facility] de Phone Number [facility] [address] [place] [address] * (ABNORMAL) Glucose, random (10/31/2024 3:00 AM EDT) Only the most recent of3 resultswithin the time period is included. Glucose 212(H) 74 - 109 mg/dL [facility] 10/31/2024 3:00 AM EDT 11/02/2024 1:10 PM EDT us Driss Alatorre MD LAB BLOOD ORDERABLES Final Resul t Performing Organization Address [facility] Co de Phone Number [facility] [address] [place] [address] * (ABNORMAL) Ferritin (10/31/2024 3:00 AM EDT) Only the most recent of3 resultswithin the time period is included. Ferritin 1,487(H) 10 - 291 ng/mL [facility] 10/31/2024 3:00 AM EDT 11/02/2024 1:10 PM EDT us Driss Alatorre MD LAB BLOOD ORDERABLES Final Resul t Performing Organization Address [facility] de Phone Number [facility] [address] [place] [address] * (ABNORMAL) Creatinine, serum (10/31/2024 3:00 AM EDT) Only the most recent of3 resultswithin the time period is included. Creatinine 7.46(H) 0.55 - 1.02 mg/dL [facility] 10/31/2024 3:00 AM EDT 11/02/2024 1:10 PM EDT us Driss Alatorre MD LAB BLOOD ORDERABLES Final Resul t Performing Organization Address [facility] de Phone Number [facility] [address] [place] [address] * (ABNORMAL) Bilirubin, total (10/31/2024 3:00 AM EDT) Only the most recent of3 resultswithin the time period is included. Total Bilirubin <0.2(L) 0.3 - 1.2 mg/dL [facility] 10/31/2024 3:00 AM EDT 11/02/2024 1:10 PM EDT Driss Alatorre MD LAB BLOOD ORDERABLES Final Resul t Performing Organization Address [facility] de Phone Number [facility] [address] [place] [address] * (ABNORMAL) Lipid panel (10/31/2024 3:00 AM EDT) Cholesterol 146 <200 mg/dL [facility] Comment: Optimal: ?<200 Borderline: ? 200-239 Higher Risk: ?>239 Triglycerides 120 <150 mg/dL [facility] Comment: Optimal: ?<150 Borderline High: ??150-199 High: ? 200-499 Very High: ?>499 HDL 49(A) >59 mg/dL [facility] Comment: Desirable: ?>59 Higher Risk: ?<40 LDL-Calc 73 <100 mg/dL [facility] Comment: Optimal: ?<100 Above Optimal: ?100-129 Borderline High: ??130-159 High: ? 160-189 Very High: ?>189 VLDL Cholesterol Adrián 24 <30 mg/dL [facility] Comment: Optimal: ?<30 Borderline High: ??30-39 High: ? 40-99 Very High: ?>99 Chol/HDL Ratio 3.0 <3.3 [facility] Comment: Optimal: ?<3.3 Higher Risk: ?>6.2 10/31/2024 3:00 AM EDT 11/02/2024 1:10 PM EDT us Driss Alatorre MD LAB BLOOD ORDERABLES Final Resul t Performing Organization Address City/[facility] Co de Phone Number [facility] [address] [place] [address] * (ABNORMAL) Electrolyte panel (10/31/2024 3:00 AM EDT) Only the most recent of3 resultswithin the time period is included. Sodium 139 136 - 145 mEq/L [facility] Potassium 4.2 3.4 - 5.0 mEq/L [facility] Chloride 97(L) 98 - 107 mEq/L [facility] Bicarbonate (CO2) 26 21 - 31 mEq/L [facility] Anion Gap 16(H) 3 - 14 mEq/L [facility] 10/31/2024 3:00 AM EDT 11/02/2024 1:10 PM EDT us Driss Alatorre MD LAB BLOOD ORDERABLES Final Resul t Performing Organization Address [facility] de Phone Number [facility] [address] [place] [address] * (ABNORMAL) Hemoglobin (10/24/2024 3:00 AM EDT) Only the most recent of2 resultswithin the time period is included. Hgb 9.2(L) 11.2 - 15.7 g/dL [facility] Hemoglobin x 3 27.6(L) 33.6 - 47.1 g/dL [facility] 10/24/2024 3:00 AM EDT 10/25/2024 12:19 PM EDT us Driss Alatorre MD LAB BLOOD ORDERABLES Final Resul t Performing Organization Address City/[facility] Co de Phone Number [facility] [address] [place] [address] * Potassium (10/17/2024 3:00 AM EDT) Potassium 4.3 3.4 - 5.0 mEq/L [facility] 10/17/2024 3:00 AM EDT 10/18/2024 12:46 PM EDT us Driss Alatorre MD LAB BLOOD ORDERABLES Final Resul t Performing Organization Address City/[facility] Co de Phone Number [facility] [address] [place] [address] from Last 3 Months Insurance ([id number]) [facility] ([id number]) Care Teams Assistant Portfolio Manager Relationship Specialty Start Date End Date Patricia Ingram MD [address] [place] [address] PCP - General 08/10/20
--- OUTSIDE RECORDS SUMMARY | 2024-11-29 13:14 | XMS_ITS | Encounter Summary ---
Author Organization [facility] Facility Address [address] [facility] [address] [place] [address] Care Team Providers Care Management Instructor Name Role Phone Patricia Ingram MD Primary Care Provider [phone] Encounter Details Date Type Department Care Team (Latest Contact Info) Description 04/02/2024 Treatment Richard Alexander MD [address] [facility] [address] [place] [address] Social History Tobacco Use Types [...] Miscellaneous Notes * Dialysis Note - Richard Alexander MD - 04/02/2024 12:00 AM EDT Patient: Kavitha Padilla : 1955 Note Type: Dialysis Rounds-Comp Service Date: 04/02/2024 This patient was personally seen for a complete visit as part of routine monthly dialysis care for end stage renal disease. Attending Lpn Or Medical Assistant: RICHARD ALEXANDER MD Dialysis Location: [facility] Schedule: Shift: 2 OVERVIEW Patient is stable. HOME MEDICATIONS Medications reviewed. Current [facility] Outpatient Medications ACETAMINOPHEN EXTRA STRENGTH [...] EXT - No ulcers. Signed by: Richard Alexander on 04/02/2024 at 09:09:12 PM Transcribed by: Richard Alexander on 04/02/2024 at 09:09:12 PM documented in this encounter Plan of Treatment Not on file documented as of this encounter Visit Diagnoses Not on filedocumented in this encounter Care Teams Management Instructor Relationship Specialty Start Date End Date Patricia Ingram MD [address] [place] [address] PCP - General 08/10/20 documented as of this encounter
--- OUTSIDE RECORDS SUMMARY | 2024-11-29 13:14 | XMS_ITS ---
Author Organization [facility] Address [address] [place] [address] Care Team Providers Care Alley Tender Name Role Phone Juan Jose DELGADILLO, Patricia Primary Care Provider Bradford Villegas Jr, Brandt Lyle REASON FOR VISIT please send dismissal letter Encounters Encounter Location Date Provider Diagnosis [facility] [address] [place] [address] 08/07/2023 Brandt Villegas Jr Plan Of Treatment No Information Progress Notes * MISSY HASSANOB:1955 ( 68 yo F)Acc No.[id number]:08/07/2023 Patient:?GALILEOLYRIC MORANMichael :1955???Age:68 Y???Sex:Female Address:[address] [place] [address] [place] [address], [address] * true * Date:? Generated for Dia davis/Glynn/eTransmitting on:?11/29/2024 01:13 PM EDT
--- OUTSIDE RECORDS SUMMARY | 2024-11-29 13:14 | XMS_ITS ---
Author Organization [facility] Address [address] [place] [address] Care Team Providers Care Behavioral Modification Assistant Name Role Phone Juan Jose DELGADILLO, Patricia Primary Care Provider Bradford Villegas Jr, Brandt Lyle REASON FOR VISIT pathology Encounters Encounter Location Date Provider Diagnosis [facility] [address] [place] [address] 09/04/2024 Brandt Villegas Jr Plan Of Treatment No Information Progress Notes * CARL HASSANDOB:1955 (69 yo F)Acc No.[id number]:09/04/2024 Patient:?CARL HASSAN :1955???Age:69 Y???Sex:Female Address:[address] [place] [address] [address], [place], [address] * true * Date:? Generated for Dia davis/Glynn/eTransmitting on:?11/29/2024 01:13 PM EDT
--- OUTSIDE RECORDS SUMMARY | 2024-11-29 13:14 | XMS_ITS | Encounter Summary ---
Author Organization [facility] Address [address] [facility] 204 [place] [address] Phone Care Team Providers Care Water Meter Reader Name Role Phone Patricia Ingram MD Primary Care Provider [phone] Encounter Details Date Type Department Care Team ([facility] st Contact Info) Description 11/28/2024 Treatment [facility] [address]. [address] [address] Richard Alatorre MD [address] [address] End stage renal disease; Dependence [...] Dialysis Note - Richard Alatorre MD - 11/28/2024 12:00 AM EDT Patient: Kavitha Padilla : 1955 Note Type: Dialysis Rounds-Comp Service Date: 11/28/2024 This patient was personally seen for a complete visit as part of routine monthly dialysis care for end stage renal disease. Attending Assembly Member: RICHARD ALATORRE MD Dialysis Location: [facility] Schedule: Shift: 2 OVERVIEW Patient is stable. HOME MEDICATIONS Medications reviewed. Current [facility] Outpatient Medications ACETAMINOPHEN EXTRA STRENGTH [...] blood pressure. Fluid status acceptable. ADEQUACY ASSESSMENT Kt/V, Natural Log 1.74 (10/31/24) 1.65 (10/03/24) 1.74 (09/05/24) UREA REDUCTION RATIO (%) 78 (10/31/24) 76 (10/03/24) 78 (09/05/24) BUN 36 (10/31/24) 46 (10/03/24) 36 (09/05/24) BUN Post Dialysis 8 (10/31/24) 11 (10/03/24) 8 (09/05/24) Creatinine 7.46 (10/31/24) 6.43 (10/03/24) 6.37 (09/05/24) Bicarbonate (CO2) 26 (10/31/24) 27 (10/03/24) 26 (09/05/24) Sodium 139 (10/31/24) 140 (10/03/24) 141 (09/05/24) Target met. Prescription compliance acceptable. Continue with greater than 3x more frequent dialysis prescription. ACCESS ASSESSMENT Vascular access examined. ANEMIA ASSESSMENT Hgb 10.5 (11/14/24) 9.7 (10/31/24) 9.2 (10/24/24) Iron Saturation (TSat) 18 (10/31/24) 26 (10/03/24) 45 (09/05/24) Ferritin 1,487 (10/31/24) 1,373 (10/03/24) 1,466 (09/05/24) Iron 32 (10/31/24) 47 (10/03/24) 80 (09/05/24) TIBC 178 (10/31/24) 178 (10/03/24) 176 (09/05/24) MCV 95.5 (10/31/24) 93.7 (10/03/24) 92.7 (09/05/24) Platelets 199 (10/31/24) 192 (10/03/24) 179 (09/05/24) ELYSSA adjusted per protocol. Iron adjusted per protocol. BMM ASSESSMENT Calcium, Adjusted Total 9.6 10/31/24 9.9 10/03/24 10.0 09/05/24 Calcium 9.6 10/31/24 9.9 10/03/24 9.9 09/05/24 Phosphorus, Serum 6.1 10/31/24 4.9 10/03/24 4.3 09/05/24 Ca*PO4 58.6 10/31/24 48.5 10/03/24 42.6 09/05/24 PTH, Intact 1,922 10/31/24 1,769 10/03/24 1,440 09/05/24 Magnesium 2.5 10/31/24 2.4 10/03/24 2.1 09/05/24 Alkaline Phosphatase 163 10/31/24 130 10/03/24 106 09/05/24 Aluminum 3 08/08/24 Bone and mineral metabolism parameters reviewed. NUTRITION ASSESSMENT Albumin 4.4 10/31/24 4.2 10/03/24 3.9 09/05/24 Potassium 4.2 10/31/24 4.3 10/17/24 3.8 10/03/24 Hemoglobin A1C 6.0 10/31/24 5.8 08/08/24 Albumin at goal. PHYSICAL EXAM Exam not performed. ADDITIONAL LABS White Blood Cells 4.4 (10/31/24) 4.9 (10/03/24) 5.3 (09/05/24) Cholesterol 146 (10/31/24) 110 (08/08/24) HDL 49 (10/31/24) 51 (08/08/24) LDL-Calc 73 (10/31/24) 39 (08/08/24) Triglycerides 120 (10/31/24) 100 (08/08/24) Hep B Surface Antibody 31 (08/08/24) Uric Acid 4.4 (08/08/24) Signed by: RICHARD ALATORRE MD on 11/28/2024 at 12:26:49 PM Transcribed by: RICHARD ALATORRE MD on 11/28/2024 at 12:26:49 PM documented in this encounter Plan of Treatment Not on file documented as of this encounter Visit Diagnoses Diagnosis End stage renal disease Dependence on renal dialysis documented in this encounter Care Teams Water Meter Reader Relationship Specialty Start Date End Date Patricia Ingram MD [address] [place] [address] PCP - General 08/10/20 documented as of this encounter
== END 2024-11-29 13:31 | disposition home or self-care (01) ==
LOC: HO.HCS 12:49
PROVIDERS: PCP Family Medicine
DX: I12.0 Hypertensive chronic kidney disease with stage 5 chronic kidney disease or end stage renal disease (principal); I25.10 Atherosclerotic heart disease of native coronary artery without angina pectoris; Z98.890 Other specified postprocedural states; N18.6 End stage renal disease; Z99.2 Dependence on renal dialysis; E11.8 Type 2 diabetes mellitus with unspecified complications; Z09 Encounter for follow-up examination after completed treatment for conditions other than malignant neoplasm
CPT/HCPCS: 99214; G2211

== ENCOUNTER 2024-12-02 11:58 | Outpatient (REF) | payer OTHER, SELFPAY ==
[2024-12-02 13:12] LABS: MANUAL DIFF FLAG NO
[2024-12-02 13:25] LABS: Basophils Percent Auto 0.4 % (0-2); Eosinophils Absolute Auto 0.1 X10*3/uL (0.0-0.4); Eosinophils Percent Auto 1.2 % (0-4); Hematocrit 22.8 % (37.0-47.0); Hemoglobin 7.2 g/dl (12.0-16.0); Imm Gran Abs Auto 0.07 X10*3/uL (0.00-0.03); Imm Gran Pct Auto 1.4 % (0.0-0.4); Immature Retic Fraction 34.6 % (3.0-15.9); Lymphocytes Percent Auto 18.8 % (20-40); Mean Corpuscular HGB Conc 31.6 g/dl (31.0-35.0); Mean Corpuscular Hemoglobin 30.6 pg (27.0-33.0); Mean Platelet Volume 10.7 fL (9.4-12.3); Monocytes Absolute Auto 0.4 X10*3/uL (0.1-1.2); Monocytes Percent Auto 6.9 % (2-11); Neutrophils Absolute Auto 3.6 x10*3/uL (2.0-8.3); Neutrophils Percent Auto 71.3 % (45-73); Platelet Count 207 X10*3/uL (160-400); Red Blood Count 2.35 X10*6/uL (4.20-5.50); Red Cell Distribution Width 15.1 % (11.0-16.0); Retic HGB Equivalent 33.3 pg (30.0-35.0); Reticulocyte Percent 2.7 % (0.5-1.8); Reticulocytes Absolute 0.063 X10*6/uL (0.026-0.095); White Blood Count 5.1 X10*3/uL (4.8-10.8)
--- OUTSIDE RECORDS SUMMARY | 2024-12-02 13:37 | XMS_ITS ---
Author Organization [facility] Address [address] [place] [address] Care Team Providers Care Cable Installer Name Role Phone Juan Jose DELGADILLO, Patricia Primary Care Provider Brandt Collazo Jr REASON FOR VISIT GI bleed Encounters Encounter Location Date Provider Diagnosis [facility] Inpatient [address] [place], [place] [phone] 08/28/2024 Brandt Villegas Jr Plan Of Treatment No Information Progress Notes * CARL HASSANDOB:1955 (69 yo F)Acc No.[id number]:08/28/2024 EGD/MAC Patient:?SONYA CARL Provider:?Brandt Villegas MD :1955???Age:69 Y???Sex:Female D ate:08/28/2024 Address:[address] [place], [place] [address] Pcp:Patricia Ingram MD Subjective: * Chief Complaints: [...] MD Date:?0 08/28/2024 Generated for Dia davis/Glynn/eTransmitting on:?12/02/2024 01:37 PM EDT
--- OUTSIDE RECORDS SUMMARY | 2024-12-02 13:37 | XMS_ITS | Encounter Summary ---
Author Organization [facility] Address [address] [facility] 200 [place] [address] Phone Care Team Providers Care Granite Countertop Installer Name Role Phone Patricia Ingram MD Primary Care Provider [phone] Reason for Visit * Reason Comments Med Refill Encounter Details Date Type Department Care Team ([facility] st Contact Info) Description 09/07/2021 Refill [facility] [address] [place] [phone] Yared Powell MD [address] [facility] [address] [place] [phone] Social History Tobacco Use Types Packs/Day Years [...] on filedocumented in this encounter Care Teams Granite Countertop Installer Relationship Specialty Start Date End Date Patricia Ingram MD [address] [place] [address] PCP - General 08/10/20 documented as of this encounter
--- OUTSIDE RECORDS SUMMARY | 2024-12-02 13:37 | XMS_ITS | Encounter Summary ---
Author Organization [facility] Address [address] [facility] 200 [place] [address] Phone Care Team Providers Care Library Services Assistant Name Role Phone Patricia Ingram MD Primary Care Provider [phone] Reason for Visit * Reason Comments Med Refill Encounter Details Date Type Department Care Team (Late st Contact Info) Description 11/08/2022 Refill [facility] [address] [place] [place] [address] Feliciano Baldwin MD Social History Tobacco [...] on filedocumented in this encounter Care Teams Library Services Assistant Relationship Specialty Start Date End Date Patricia Ingram MD [address] [facility] [address] PCP - General 08/10/20 documented as of this encounter
--- OUTSIDE RECORDS SUMMARY | 2024-12-02 13:37 | XMS_ITS | Encounter Summary ---
Author Organization [facility] Address [address] [facility] [address] [place] [address] Phone Care Team Providers Care Eeg Tech Name Role Phone Patricia Ingram MD Primary Care Provider [phone] Reason for Visit * Reason Comments Med Refill Encounter Details Date Type Department Care Team (Late st Contact Info) Description 09/07/2022 Refill [facility] [address] [place] [address] Kentrell Leos MD Social History Tobacco [...] on filedocumented in this encounter Care Teams Eeg Tech Relationship Specialty Start Date End Date Patricia Ingram MD [address] [place] [address] PCP - General 08/10/20 documented as of this encounter
--- OUTSIDE RECORDS SUMMARY | 2024-12-02 13:37 | XMS_ITS | Patient Health Record ---
Author Organization [facility] Address [address] [place] [address] Care Team Providers Care Measuring Machine Operator Name Role Phone Juan Jose DELGADILLO, Patricia Primary Care Provider Brandt Collazo Jr Unavailable Results Component Value Reference Range Notes Type and Screen Reviewed date:08/29/2024 10:35:21 AM Interpretation: Performing Lab:[facility], [address] [place] [phone] Notes/Report: Results at Issue Units as of [...] Cells Reviewed date:08/29/2024 10:35:28 AM Interpretation: Performing Lab:[facility], [address] [place] [phone] Notes/Report: Red Blood Cells [id number] OP RC Red Blood Cells NOT AVAILABLE Red Blood Cells [id number] OP RC Red Blood Cells TRANSFUSED 08/26/24 0454 Red Blood Cells [id number] BP RC Red Blood Cells TRANSFUSED 08/26/24 1500 Complete Blood Count no Diff Reviewed date:08/28/2024 07:49:19 AM Interpretation: Performing Lab:[facility], [address] [place] [phone] Notes/Report: White Blood Count 5.1 4.8-10.8 X10*3/uL [...] Pathology Reviewed date:09/04/2024 08:03:17 AM Interpretation: Performing Lab:[facility], [address] [place] [phone] Notes/Report: -- Name: Kavitha Hassan Age/Sex: 69/F : 1955 Unit#: [id number] Attend Dr: Romina Fortune MD Re08/26/24 Status : DIS IN Location: [facility] 483-1 Disch: 08/29/24 -- SPEC : [id number] RECD: 08/29/24 STATUS: JERRY REAlexandra NUM: [id number] JOSE ALFREDO: 08/28/24-[address] [facility] [address]: Brandt Villegas MD ENTERED: 08/29/24 [...] copic examination, 2 pieces in cassette A. [facility] Special stains order ed and performed: A/B PAS on A; immunostain for H pylori on A. Copies To: Brandt Villegas MD [facility] GI [address] [place] [address] Romina Fortune MD [address] [place] [address] CONTINUED ON NEXT PAGE -- Name: SonyaKavitha Age/Sex: 69/F : 1955 Unit#: [id number] Attend Dr: Romina Fortune MD Re08/26/24 Status : DIS IN Location: [facility] 483-1 Disch: 08/29/24 -- SPEC : [id number] RECD: 08/29/24 STATUS: JERRY ALEMAN: [id number] JOSE ALFREDO: 08/28/24-[address] [facility] [address]: Brandt Villegas MD ENTERED: 08/29/24- 49 SP TYPE: Surgical OTHR DR: Romina Fortune MD, Nao MD ORDERED: HE Stain/3, Gross Micro L4, IHC, Special st. 2, H. pylori, AB/PAS Copies To: (Continued) Patricia Ingram MD [address] [address] -- Signed (si gnature on file) Luci Alvarado MD 08/30/24 6505 -- END OF REPORT Reason For Referral [...] Active Encounters Encounter Location Date Provider Diagnosis [facility] Inpatient [address] [place], [place] [phone] 08/28/2024 Brandt Villegas Jr [facility] [address] [place] [address] 09/04/2024 Brandt Villegas Jr Plan Of Treatment No Information Insurance Providers Payer Name Payer Address Payer Phone Subscriber Number Group Number Insured Name Patient Relationship to Insured Coverage Start Date Coverage End Date [facility] [address] Attn Claims [place] [address] [id number] KAVITHA HASSAN Self - patient is the insured
--- OUTSIDE RECORDS SUMMARY | 2024-12-02 13:38 | XMS_ITS | Encounter Summary ---
Author Organization [facility] Address [address] [facility] 200 [place] [address] Phone Care Team Providers Care Pick Out Hand Name Role Phone Patricia Ingram MD Primary Care Provider [phone] Reason for Visit * Reason Comments Med Refill Encounter Details Date Type Department Care Team ([facility] st Contact Info) Description 04/29/2021 Refill [facility] [address] [place] [phone] Yared Powell MD [address] [facility] [address] [place] [phone] Social History Tobacco Use Types Packs/Day Years [...] on filedocumented in this encounter Care Teams Pick Out Hand Relationship Specialty Start Date End Date Patricia Ingram MD [address] [place] [address] PCP - General 08/10/20 documented as of this encounter
--- OUTSIDE RECORDS SUMMARY | 2024-12-02 13:38 | XMS_ITS ---
Author Organization [facility] Address [address] [place] [address] Care Team Providers Care Fibreglass Gun Hand Name Role Phone Juan Jose DELGADILLO, Patricia Primary Care Provider Bradford Villegas Jr, Brandt Lyle REASON FOR VISIT please send dismissal letter Encounters Encounter Location Date Provider Diagnosis [facility] [address] [place] [address] 08/07/2023 Brandt Villegas Jr Plan Of Treatment No Information Progress Notes * MISSY HASSANOB:1955 ( 68 yo F)Acc No.[id number]:08/07/2023 Patient:?GALILEOLYRIC MORANMichael :1955???Age:68 Y???Sex:Female Address:[address] [place] [address] [place] [address], [address] * true * Date:? Generated for Dia davis/Glynn/eTransmitting on:?12/02/2024 01:37 PM EDT
--- OUTSIDE RECORDS SUMMARY | 2024-12-02 13:38 | XMS_ITS ---
Author Organization [facility] Address [address] [place] [address] Care Team Providers Care Pebble Mill Operator Name Role Phone Juan Jose DELGADILLO, Patricia Primary Care Provider Bradford Villegas Jr, Brandt Lyle REASON FOR VISIT pathology Encounters Encounter Location Date Provider Diagnosis [facility] [address] [place] [address] 09/04/2024 Brandt Villegas Jr Plan Of Treatment No Information Progress Notes * CARL HASSANDOB:1955 (69 yo F)Acc No.[id number]:09/04/2024 Patient:?CARL HASSAN :1955???Age:69 Y???Sex:Female Address:[address] [place] [address] [address], [place], [address] * true * Date:? Generated for Dia davis/Glynn/eTransmitting on:?12/02/2024 01:38 PM EDT
--- OUTSIDE RECORDS SUMMARY | 2024-12-02 13:38 | XMS_ITS | Encounter Summary ---
Author Organization [facility] Address 100 [facility] [address] [place] [address] Phone Care Team Providers Care Wrap Turner Name Role Phone Patricia Ingram MD Primary Care Provider [phone] Encounter Details Date Type Department Care Team (Late st Contact Info) Description 12/21/2020 Orders Only [facility] [address] [place] [phone] Yared Powell MD [address] [facility] [address] [place] [phone] Nephrotic range proteinuria; Renal disorder due to [...] osteodystrophy documented in this encounter Care Teams Wrap Turner Relationship Specialty Start Date End Date Patricia Ingram MD [address] [place] [address] PCP - General 08/10/20 documented as of this encounter
--- OUTSIDE RECORDS SUMMARY | 2024-12-02 13:38 | XMS_ITS | Clinical Summary ---
Author Organization [facility] Address [address] [facility] [address] [place] [address] Phone Care Team Providers Care Punch Out Crew Member Name Role Phone Patricia Ingram MD Primary Care Provider [phone] Allergies No known active allergies Medications amLODIPine [...] 11/28/2024 Treatment [facility] [address] [address] Driss Alatorre MD End stage renal disease; Dependence on renal dialysis 11/19/2024 Treatment [facility] [address] [phone] Driss Alatorre MD End stage renal disease; Dependence on renal dialysis 11/12/2024 Treatment [facility] [address] [address] Driss Alatorre MD End stage renal disease; Dependence on renal dialysis 11/05/2024 Treatment [facility] [address] [phone] Driss Alatorre MD End stage renal disease; Dependence on renal dialysis 10/29/2024 Treatment [facility] [address] [phone] Driss Alatorre MD End stage renal disease; Dependence on renal dialysis 10/15/2024 Treatment [facility] [address] [address] Driss Alatorre MD End stage renal disease; Dependence on renal dialysis 10/08/2024 Treatment [facility] [address] [address] Driss Alatorre MD End stage renal disease; Dependence on renal dialysis 10/03/2024 Treatment [facility] [address] [address] Driss Alatorre MD End stage renal disease; Dependence on renal dialysis 10/01/2024 Treatment [facility] [address] [address] Driss Alatorre MD End stage renal disease; Dependence on renal dialysis 09/17/2024 Treatment [facility] [address] [address] Driss Alatorre MD 09/12/2024 Treatment [facility] [address] [address] Driss Alatorre MD 09/10/2024 Treatment [facility] [address] [address] Driss Alatorre MD 09/05/2024 Orders Only [facility] [address] [phone] Driss Alatorre MD from Last 3 Months [...] the time period is included. Pathologist [facility] Hgb 10.5(L) 11.2 - 15.7 g/dL [facility] Hematocrit 32.4(L) 34.1 - 44.9 % [facility] Hemoglobin x 3 31.5(L) 33.6 - 47.1 g/dL [facility] 11/14/2024 3:00 AM EDT 11/15/2024 12:46 PM EDT us Driss Alatorre MD LAB BLOOD ORDERABLES Final Resul t Performing Organization Address City/[facility]/ZIP Co de Phone Number APS [facility] [address] [place] [address] * LIH (10/31/2024 3:00 AM EDT) Only the most recent of4 resultswithin the time period is included. Pathologist [facility] Lipemia Normal Normal [facility] Icterus Normal Normal [facility] Hemolysis Normal Normal [facility] 10/31/2024 3:00 AM EDT 11/02/2024 1:10 PM EDT us Driss Alatorre MD LAB [id number] ICITED RESULTS Final Result Performing Organization Address City/[facility]/ZIP Co de Phone Number [facility] [address] [place] [address] * (ABNORMAL) Kt/V Natural Log, URR (10/31/2024 3:00 AM EDT) Only the most recent of3 resultswithin the time period is included. Pathologist [facility] Treatment Time 187 min [facility] Pre-Weight, lb [...] PM EDT us Driss Alatorre MD LAB [id number] ICITED RESULTS Final Result Performing Organization Address [facility] de Phone Number [facility] [address] [place] [address] * (ABNORMAL) Calcium Phosphorus Product, Adjusted (10/31/2024 [...] PM EDT us Driss Alatorre MD LAB [id number] ICITED RESULTS Final Result Performing Organization Address [facility] de Phone Number [facility] [address] [place] [address] * (ABNORMAL) TSAT (10/31/2024 3:00 AM EDT) [...] Final Resul t [facility] [address] [place] [address] * (ABNORMAL) CBC and Differential (10/31/2024 3:00 AM EDT) Only the most recent of3 resultswithin the time period is included. DIFFERENTIAL [...] ORDERABLES Final Resul t Performing Organization Address [facility] de Phone Number [facility] [address] [place] [address] * (ABNORMAL) ALT (10/31/2024 3:00 AM EDT) Only the most recent of3 resultswithin the time period is included. ALT (SGPT) <7(L) 10 - 49 U/L [facility] 10/31/2024 3:00 AM EDT 11/02/2024 1:10 PM EDT us Driss Alatorre MD LAB BLOOD ORDERABLES Final Resul t Performing Organization Address [facility] Phone Number [facility] [address] [place] [address] * AST (10/31/2024 3:00 AM EDT) Only the most recent of3 resultswithin the time period is included. AST (SGOT) 11 <34 U/L [facility] 10/31/2024 3:00 AM EDT 11/02/2024 1:10 PM EDT us Driss Alatorre MD LAB BLOOD ORDERABLES Final Resul t Performing Organization Address [facility] de Phone Number [facility] [address] [place] [address] * Protein, total (10/31/2024 3:00 AM EDT) Only the most recent of3 resultswithin the time period is included. Total Protein 6.9 6.4 - 8.9 g/dL [facility] 10/31/2024 3:00 AM EDT 11/02/2024 1:10 PM EDT us Driss Alatorre MD LAB BLOOD ORDERABLES Final Resul t Performing Organization Address [facility]/State/ZIP Co de Phone Number [facility] [address] [place] [address] * (ABNORMAL) Alkaline phosphatase (10/31/2024 3:00 AM EDT) Only the most recent of3 resultswithin the time period is included. Alkaline Phosphatase 163(H) 46 - 116 U/L [facility] 10/31/2024 3:00 AM EDT 11/02/2024 1:10 PM EDT us Driss Alatorre MD LAB BLOOD ORDERABLES Final Resul t Performing Organization Address [facility] de Phone Number [facility] [address] [place] [address] * (ABNORMAL) PTH, Intact (10/31/2024 3:00 AM [...] ORDERABLES Final Resul t Performing Organization Address [facility] de Phone Number [facility] [address] [place] [address] * Magnesium (10/31/2024 3:00 AM EDT) Only the most recent of3 resultswithin the time period is included. Magnesium 2.5 1.9 - 2.7 mg/dL [facility] 10/31/2024 3:00 AM EDT 11/02/2024 1:10 PM EDT us Driss Alatorre MD LAB BLOOD ORDERABLES Final Resul t Performing Organization Address [facility] de Phone Number [facility] [address] [place] [address] * Lactate dehydrogenase (10/31/2024 3:00 AM EDT) Only the most recent of3 resultswithin the time period is included. LDH 230 120 - 246 U/L [facility] 10/31/2024 3:00 AM EDT 11/02/2024 1:10 PM EDT us Driss Alatorre MD LAB BLOOD ORDERABLES Final Resul t Performing Organization Address [facility] de Phone Number [facility] [address] [place] [address] * (ABNORMAL) Hemoglobin A1c (10/31/2024 3:00 AM [...] ORDERABLES Final Resul t Performing Organization Address [facility] de Phone Number [facility] [address] [place] [address] * (ABNORMAL) Glucose, random (10/31/2024 3:00 AM EDT) Only the most recent of3 resultswithin the time period is included. Glucose 212(H) 74 - 109 mg/dL [facility] 10/31/2024 3:00 AM EDT 11/02/2024 1:10 PM EDT us Driss Alatorre MD LAB BLOOD ORDERABLES Final Resul t Performing Organization Address [facility] Co de Phone Number [facility] [address] [place] [address] * (ABNORMAL) Ferritin (10/31/2024 3:00 AM EDT) Only the most recent of3 resultswithin the time period is included. Ferritin 1,487(H) 10 - 291 ng/mL [facility] 10/31/2024 3:00 AM EDT 11/02/2024 1:10 PM EDT Driss Alatorre MD LAB BLOOD ORDERABLES Final Resul t Performing Organization Address [facility] de Phone Number [facility] [address] [place] [address] * (ABNORMAL) Creatinine, serum (10/31/2024 3:00 AM EDT) Only the most recent of3 resultswithin the time period is included. Creatinine 7.46(H) 0.55 - 1.02 mg/dL [facility] 10/31/2024 3:00 AM EDT 11/02/2024 1:10 PM EDT us Driss Alatorre MD LAB BLOOD ORDERABLES Final Resul t Performing Organization Address [facility] de Phone Number [facility] [address] [place] [address] * (ABNORMAL) Bilirubin, total (10/31/2024 3:00 AM EDT) Only the most recent of3 resultswithin the time period is included. Total Bilirubin <0.2(L) 0.3 - 1.2 mg/dL [facility] 10/31/2024 3:00 AM EDT 11/02/2024 1:10 PM EDT us Driss Alatorre MD LAB BLOOD ORDERABLES Final Resul t Performing Organization Address [facility] Co de Phone Number [facility] [address] [place] [address] * (ABNORMAL) Lipid panel (10/31/2024 3:00 AM [...] Final Resul t [facility] [address] [place] [address] * (ABNORMAL) Electrolyte panel (10/31/2024 3:00 AM [...] Performing Organization Address City/[facility] Co de Phone Number [facility] [address] [place] [address] * (ABNORMAL) Hemoglobin (10/24/2024 3:00 AM EDT) Only the most recent of2 resultswithin the time period is included. Hgb 9.2(L) 11.2 - 15.7 g/dL [facility] Hemoglobin x 3 27.6(L) 33.6 - 47.1 g/dL [facility] 10/24/2024 3:00 AM EDT 10/25/2024 12:19 PM EDT us Driss Alatorre MD LAB BLOOD ORDERABLES Final Resul t Performing Organization Address [facility] Co de Phone Number [facility] [address] [place] [address] * Potassium (10/17/2024 3:00 AM EDT) Potassium 4.3 3.4 - 5.0 mEq/L [facility] 10/17/2024 3:00 AM EDT 10/18/2024 12:46 PM EDT us Driss Alatorre MD LAB BLOOD ORDERABLES Final Resul t Performing Organization Address [facility] Co de Phone Number [facility] [address] [place] [address] from Last [address] [facility] MCR ([id number]) [facility] ([id number]) Care Teams Punch Out Crew Member Relationship Specialty Start Date End Date Patricia Ingram MD [address] [place] [phone] PCP - General 08/10/20
--- OUTSIDE RECORDS SUMMARY | 2024-12-02 13:38 | XMS_ITS | Encounter Summary ---
Author Organization [facility] Facility Address [address] [facility] [address] [place] [address] Care Team Providers Care Card Fixer Name Role Phone Patricia Ingram MD Primary Care Provider [phone] Encounter Details Date Type Department Care Team (Latest Contact Info) Description 04/02/2024 Treatment Richard Alexander MD [address] [facility] [address] [place] [address] Social History Tobacco Use Types [...] care for end stage renal disease. Attending Vegetable Harvest Worker: RICHARD ALEXANDER MD Dialysis Location: [facility] Schedule: Shift: 2 OVERVIEW Patient is stable. HOME MEDICATIONS Medications reviewed. Current [facility] Outpatient Medications ACETAMINOPHEN EXTRA STRENGTH 500 [...] on filedocumented in this encounter Care Teams Card Fixer Relationship Specialty Start Date End Date Patricia Ingram MD [address] [place] [id number] PCP - General 08/10/20 documented as of this encounter
--- OUTSIDE RECORDS SUMMARY | 2024-12-02 13:38 | XMS_ITS | Encounter Summary ---
Author Organization [facility] Address [address] [facility] [address] [place] [address] Phone Care Team Providers Care Full Roll Inspector Name Role Phone Patricia Ingram MD Primary Care Provider [phone] Encounter Details Date Type Department Care Team ([facility] st Contact Info) Description 11/28/2024 Treatment [facility] [address] [address] Richard Alatorre MD [address] [address] End stage renal disease; Dependence [...] care for end stage renal disease. Attending Area Attendant: RICHARD ALATORRE MD Dialysis Location: [facility] Schedule: Shift: 2 OVERVIEW Patient is stable. HOME MEDICATIONS Medications reviewed. Current [facility] Outpatient [...] dialysis documented in this encounter Care Teams Full Roll Inspector Relationship Specialty Start Date End Date Patricia Ingram MD [address] [place] [phone] PCP - General 08/10/20 documented as of this encounter
[2024-12-02 14:08] LABS: Iron 39 mcg/dL (30-160); Percent Iron Saturation 26 % (15-50); Total Iron Binding Capacity 152 mcg/dL (228-428); Unsaturated Iron Binding 113 ug/dL
[2024-12-02 14:34] LABS: Ferritin > 1676 ng/mL (10-250); TSH reflex Free T4 0.72 uIU/mL (0.32-4.0)
[2024-12-02 14:39] LABS: Folate 3.4 ng/mL (> or = 4.0); Vitamin B12 260 pg/mL (200-900)
[2024-12-05 12:58] LABS: TS Negative Control Passed; TS Panel A 10; TS Panel B 0; TS Positive Control Passed; TSpotTB Positive (Negative)
== END 2024-12-02 11:59 | disposition home or self-care (01) ==
LOC: HO.HHCL 11:58
PROVIDERS: Visit Provider Family Medicine
DX: Z13.89 Encounter for screening for other disorder (principal)
CPT/HCPCS: 82607; 82728; 82746; 83540; 84443; 85025; 85045; 86481

== ENCOUNTER 2024-12-02 18:31 | Inpatient (IN) | payer OTHER, SELFPAY ==
--- NOTE | ~2024-12-02 | XR_ITS ---
CLINICAL HISTORY: dyspnea 1 view chest x-ray Comparison: CR - XR CHEST 1V - 08/26/24 02:17 EST Findings: Mid sternotomy wires are intact. Mild diffuse interstitial prominence in both lungs. Mild cardiomegaly. No focal consolidation or pleural effusion. No acute fracture. IMPRESSION: 1. Mild diffuse interstitial prominence in both lungs likely represent mild pulmonary edema. No significant pleural effusion or focal consolidation. This document has been electronically signed by: David Covington MD on 12/02/2024 21:36:34
[2024-12-02 18:55] VITALS: BP 153/54; PULSE 63; RESP 18; TEMP 36.7; O2SAT 100; BMI 29.8
--- NOTE | 2024-12-02 18:59 | ED.GENADULT ---
HPI - General Adult General Chief complaint: Recheck/Abnormal Lab/Rx Stated complaint: anemic, sent by pcp Time Seen by Provider: 12/02/24 19:08 Source: patient and family Mode of arrival: wheelchair Limitations: no limitations History of Present Illness ED Provider: HPI narrative: Patient's history of severe anemia end-stage renal disease on dialysis, hypotension, diabetes comes here as she had been feeling weakness patient has been feeling very tired for last few days does have history of hemorrhoids and has some blood in the stool also feeling dizzy and weak specially on standing patient's had significant anemia in 08/24 with hemoglobin of 6.0 and received 2 units of blood transfusion patient goes on dialysis Monday//Monday patient does have rectal bleed when she wipes history of same and she had hemorrhoids in the past status post surgery Related Data Home Medications ?Medication ?Instructions ?Recorded ?Confirmed sertraline 100 mg tablet 150 mg PO DAILY 06/10/20 12/02/24 ascorbic acid (vitamin C) 500 mg 1 tab PO DAILY 12/03/20 12/02/24 tablet (Vitamin C) montelukast 10 mg tablet 10 mg PO BEDTIME 12/03/20 12/02/24 insulin glargine 100 unit/mL (3 8 unit subcut DAILY 01/25/23 12/02/24 mL) subcutaneous pen (Lantus Solostar U-100 Insulin) sevelamer carbonate 800 mg tablet 800 mg PO TIDWM@0800,1200,1700 01/25/23 12/02/24 acetaminophen 500 mg tablet 1,000 mg PO Q8H PRN Pain 02/08/23 12/02/24 budesonide-formoterol HFA 80 2 puff inhalation BID 02/08/23 12/02/24 mcg-4.5 mcg/actuation aerosol inhaler (Symbicort) cholecalciferol (vitamin D3) 25 25 mcg PO DAILY 01/01/24 12/02/24 mcg (1,000 unit) tablet carvedilol 3.125 mg tablet 3.125 mg PO BID 08/13/24 12/02/24 docusate sodium 100 mg capsule 100 mg PO BID PRN Constipation 08/13/24 12/02/24 ezetimibe 10 mg tablet 10 mg PO DAILY 08/13/24 12/02/24 insulin glargine 100 unit/mL 7 unit subcut BEDTIME 08/13/24 12/02/24 subcutaneous solution (Lantus U-100 Insulin) melatonin 5 mg tablet 5 mg PO BEDTIME PRN Insomnia 08/13/24 12/02/24 ticagrelor 90 mg tablet (Brilinta) 90 mg PO BID 08/13/24 12/02/24 calcitriol 0.25 mcg capsule 0.75 mcg PO TUTHSA 08/26/24 12/02/24 cinacalcet 30 mg tablet 30 mg PO DAILY 08/26/24 12/02/24 diclofenac sodium 1 % topical gel 1 g topical TID PRN pain 08/26/24 12/02/24 insulin aspart U-100 100 unit/mL 3 unit subcut DAILY@1200 08/26/24 12/02/24 (3 mL) subcutaneous pen (Novolog FlexPen U-100 Insulin aspart) insulin aspart U-100 100 unit/mL See Protocol subcut BIDAC 08/26/24 12/02/24 (3 mL) subcutaneous pen (Novolog FlexPen U-100 Insulin aspart) polyethylene glycol 3350 17 17 g PO BID PRN Constipation 08/26/24 12/02/24 gram/dose oral powder sennosides 8.6 mg tablet (senna) 17.2 mg PO BEDTIME PRN Constipation 08/26/24 12/02/24 isosorbide mononitrate 30 mg 30 mg PO DAILY 10/02/24 12/02/24 tablet,extended release 24 hr pantoprazole 40 mg tablet,delayed 40 mg PO DAILY@0630 10/10/24 12/02/24 release Previous Rx's ?Medication ?Instructions ?Recorded amlodipine 10 mg tablet 10 mg PO DAILY 90 days #90 tabs 12/06/22 atorvastatin 80 mg tablet 80 mg PO BEDTIME #90 tabs 08/17/23 aspirin 81 mg tablet,delayed 81 mg PO DAILY 90 days #90 tabs 11/16/23 release furosemide 40 mg tablet 80 mg (2 x 40 mg) PO BID #240 tabs 10/02/24 hydralazine 25 mg tablet 25 mg PO TID #90 tabs 11/28/24 Allergies Allergy/AdvReac Type Severity Reaction Status Date / Time No Known Allergies Allergy Verified 12/02/24 18:58 Review of Systems Review of Systems: Yes all other systems are reviewed and are negative [facility] Past Medical History 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 End stage chronic kidney disease Edema Atherosclerotic cardiovascular disease SHELIA (obstructive sleep apnea) Hypercalcemia Asthma DJD (degenerative joint disease) Chronic kidney disease Other and unspecified hyperlipidemia Type 2 diabetes mellitus with unspecified complications Essential hypertension Surgical History History of hemorrhoidectomy (01/30/23) H/O colonoscopy Hemorrhoids H/O angioplasty History of tubal ligation History of coronary artery bypass graft (~2017) Family History Family History Father Cardiovascular disease Hypertension Mother Cardiovascular disease Hypertension Social History Social History Household Members: Family Household Members Other:: son Housing: Apartment Housing Other:: senior apartment Are you a primary acute care nurse practitioner to a significant other at home: No Do you presently have visiting nurse or other home services: Yes ([facility]) Alcohol intake: never Patient Tobacco Use Status: Never used Tobacco Smoked in Last 30 Days: No Second Hand Smoke Exposure: No Use of substances other than those prescribed or required for medical reasons: No Advance Directives: Yes Advance Directives Information Provided: Yes Advance Directives on File: Yes Advance Directives Date on File: 12/03/20 Nutrition Risks: No Nutritional Risk service: No 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al status: disabled 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 Oriented X3. No acute distress. Eyes:pallor++ ENT: Pharynx normal. Oral Mucosa moist Neck: Normal inspection. Neck supple. CVS: Normal heart rate and rhythm. Pulses normal. Respiratory: No respiratory distress. Equal air entry bilateral, no wheezing/rales/rhonchi Abdomen: Soft and nontender. Bowel sounds are present, no mass palpable, no CVA tenderness rectal: Brown stool guaiac positive hemorrhoids+ Skin: Skin warm and dry. Normal skin color. Normal skin turgor. Extremities: No lower extremity edema. No calf tenderness Neuro: Oriented X 3. No motor deficit. No sensory deficit.No cerebellar signs , cranial nerves II-XII intact Course Course Course Narrative: RME: 69-year-old female sent from PCP for symptomatic anemia. Patient has been dizzy and weak and fatigued patient's hemoglobin 7 0.2/. Repeat labs will be ordered. Patient to be brought back to the ED. Medications Administered Generic Name Dose Route Start Last Admin Trade Name Freq PRN Reason Stop Dose Admin Insulin Glargine 5 unit 12/02/24 22:20 12/02/24 22:44 Insulin Glargine,Hum.Rec.Anlog 100 Unit/Ml 10 Ml Vial SUBCUT 5 unit BEDTIME ROSANA Administration Insulin Human Lispro 0 unit 12/02/24 22:30 12/02/24 22:39 Insulin Lispro 100 Unit/Ml 3 Ml Vial SUBCUT Not Given Q6H ROSANA Protocol Pantoprazole Sodium 40 mg 12/02/24 21:25 12/02/24 22:20 Pantoprazole Sodium 40 Mg/10 Ml Vial IVPUSH 40 mg BID@0630,1630 ROSANA Administration Sodium Chloride 3 ml 12/03/24 00:00 12/03/24 00:55 0.9 % Sodium Chloride Flush 3 Ml Syringe IVFLUSH Not Given QSHIFT ROSANA Discontinued Medications Generic Name Dose Route Start Last Admin Trade Name Freq PRN Reason Stop Dose Admin Furosemide 40 mg 12/02/24 20:28 12/02/24 21:19 Furosemide 40 Mg/4 Ml Vial IVPUSH 12/02/24 20:29 40 mg ONCE ONE Administration Protocol Medical Decision Making Medical Decision Making [facility] Narrative: Patient has significant anemia with end-stage renal disease with history of same status post blood transfusion in 08/24 comes here for weakness and dizziness spell for last few weeks noted to have hemoglobin of 7.2 hematocrit 22.8 at PCP office rectal exam with brown stool was guaiac positive Differential Diagnosis Differential Diagnoses: The differential diagnosis associated with the presentation includes GI bleed/anemia of chronic disease/CHF Admission/Observation Consideration of admission/observation: Escalation of care including admission/observation considered Consult Healthcare Provider Management of the patient was discussed with: Hospitalist Lab Data MDM Lab Attestation statement: I reviewed the patient's lab results. 12/02/24 19:15 12/02/24 19:15 Labs: Lab Results 12/02/24 Range/Units 19:15 WBC 4.4 L (4.8-10.8) X10*3/uL RBC 2.43 L (4.20-5.50) X10*6/uL Hgb 7.5 L (12.0-16.0) g/dl Hct 23.0 L (37.0-47.0) % MCV 94.7 (80.0-98.0) fL MCH 30.9 (27.0-33.0) pg MCHC 32.6 (31.0-35.0) g/dl RDW 15.3 (11.0-16.0) % Plt Count 192 (160-400) X10*3/uL MPV 9.5 (9.4-12.3) fL Immature Gran % (Auto) 0.2 (0.0-0.4) % Neut % (Auto) 70.1 (45-73) % Lymph % (Auto) 20.5 (20-40) % [place] % (Auto) 7.6 (2-11) % Eos % (Auto) 1.4 (0-4) % Baso % (Auto) 0.2 (0-2) % Lymph # (Auto) 0.9 L (1.2-4.9) X10*3/uL [place] # (Auto) 0.3 (0.1-1.2) X10*3/uL Eos # (Auto) 0.1 (0.0-0.4) X10*3/uL Baso # (Auto) 0.0 (0.0-0.2) X10*3/uL Abs Immat Gran (auto) 0.01 (0.00-0.03) X10*3/uL Absolute Neuts (auto) 3.1 (2.0-8.3) x10*3/uL Absolute Nucleated RBC 0.000 (0.0-0.012) X10*3/uL Nucleated RBC % (auto) 0.0 (0.0-0.2) /100WBC PT 10.6 L (10.9-12.4) SEC INR 0.9 (0.9-1.1) APTT 31.3 (26.0-36.8) SEC Sodium 142 (135-145) mmol/L Potassium 4.8 (3.3-5.1) mmol/L Chloride 101 (96-108) mmol/L Carbon Dioxide 29 (22-29) mmol/L Anion Gap 17 (12-20) BUN 38 H (9-16) mg/dL Creatinine 6.63 H* (0.5-1.4) mg/dL Estim Creat Clear Calc 4.8 Estimated GFR 6 Random Glucose 239 H (60-115) mg/dL Calcium 9.7 (8.4-10.2) mg/dL Total Bilirubin 0.4 (0.0-1.0) mg/dL AST 11 (5-31) U/L ALT 8 (0-31) U/L Alkaline Phosphatase 114 (39-117) U/L Total Protein 6.9 (6.5-8.0) g/dL Albumin 3.9 (3.5-5.0) g/dL Blood Type B Positive Antibody Screen NEGATIVE Crossmatch See Detail Independent Interpretation I performed an independent interpretation of an: EKG Interpretation: Normal sinus rhythm heart rate 63 beats per minute normal interval normal axis poor progression of R-wave no acute STT wave changes no acute ischemia Discharge Plan Discharge Clinical Impression: Severe anemia, ESRD (end stage renal disease) Patient Disposition: Admitted As Inpatient
[2024-12-02 19:20] LABS: MANUAL DIFF FLAG NO
[2024-12-02 19:21] LABS: Basophils Percent Auto 0.2 % (0-2); Eosinophils Absolute Auto 0.1 X10*3/uL (0.0-0.4); Eosinophils Percent Auto 1.4 % (0-4); Hemoglobin 7.5 g/dl (12.0-16.0); Imm Gran Abs Auto 0.01 X10*3/uL (0.00-0.03); Imm Gran Pct Auto 0.2 % (0.0-0.4); Lymphocytes Absolute Auto 0.9 X10*3/uL (1.2-4.9); Lymphocytes Percent Auto 20.5 % (20-40); Mean Corpuscular HGB Conc 32.6 g/dl (31.0-35.0); Mean Corpuscular Hemoglobin 30.9 pg (27.0-33.0); Mean Corpuscular Volume 94.7 fL (80.0-98.0); Mean Platelet Volume 9.5 fL (9.4-12.3); Monocytes Absolute Auto 0.3 X10*3/uL (0.1-1.2); Monocytes Percent Auto 7.6 % (2-11); Neutrophils Absolute Auto 3.1 x10*3/uL (2.0-8.3); Neutrophils Percent Auto 70.1 % (45-73); Platelet Count 192 X10*3/uL (160-400); Red Blood Count 2.43 X10*6/uL (4.20-5.50); Red Cell Distribution Width 15.3 % (11.0-16.0); White Blood Count 4.4 X10*3/uL (4.8-10.8)
--- OUTSIDE RECORDS SUMMARY | 2024-12-02 19:21 | XMS_ITS | Encounter Summary ---
Author Organization [facility] Facility Address [address] [facility] [address] [place] [address] Care Team Providers Care Repairer And Checker Name Role Phone Patricia Ingram MD Primary Care Provider Encounter Details Date Type Department Care Team (Latest Contact Info) Description 04/02/2024 Treatment Richard Alexander MD [address] [facility] [address] [place] [address] Social History Tobacco Use Types [...] care for end stage renal disease. Attending Child Care Center Assistant Director: RICHARD ALEXANDER MD Dialysis Location: [facility] Schedule: Shift: 2 OVERVIEW Patient is stable. HOME MEDICATIONS Medications reviewed. Current [facility] Outpatient Medications ACETAMINOPHEN EXTRA STRENGTH 500 MG [...] on filedocumented in this encounter Care Teams Repairer And Checker Relationship Specialty Start Date End Date Patricia Ingram MD [address] [place] [id number] PCP - General 08/10/20 documented as of this encounter
--- OUTSIDE RECORDS SUMMARY | 2024-12-02 19:21 | XMS_ITS | Encounter Summary ---
Author Organization [facility] Address [address] [facility] [address] [place] [address] Phone Care Team Providers Care Environmental Project Manager Name Role Phone Patircia Ingram MD Primary Care Provider [phone] Reason for Visit * Reason Comments Med Refill Encounter Details Date Type Department Care Team ([facility] st Contact Info) Description 04/29/2021 Refill [facility] [address] AMAYA [address] [place] [phone] Yared Powell MD [address] [facility] [address] [place] [phone] Social History Tobacco Use Types Packs/Day Years [...] on filedocumented in this encounter Care Teams Environmental Project Manager Relationship Specialty Start Date End Date Patricia Ingram MD [address] [place] [address] PCP - General 08/10/20 documented as of this encounter
--- OUTSIDE RECORDS SUMMARY | 2024-12-02 19:21 | XMS_ITS | Clinical Summary ---
Author Organization [facility] Address [address] [facility] [address] [place] [address] Phone Care Team Providers Care Study Abroad Coordinator Name Role Phone Patricia Ingram MD Primary Care Provider [phone] Allergies No known active allergies Medications amLODIPine [...] 11/28/2024 Treatment [facility] [address] [address] Driss Alatorre MD End stage renal disease; Dependence on renal dialysis 11/19/2024 Treatment [facility] [address] [phone] Driss Alatorre MD End stage renal disease; Dependence on renal dialysis 11/12/2024 Treatment [facility] [address] [address] Driss Alatorre MD End stage renal disease; Dependence on renal dialysis 11/05/2024 Treatment [facility] [address] [phone] Driss Alatorre MD End stage renal disease; Dependence on renal dialysis 10/29/2024 Treatment [facility] [address] [phone] Driss Alatorre MD End stage renal disease; Dependence on renal dialysis 10/15/2024 Treatment [facility] [address] [address] Driss Alatorre MD End stage renal disease; Dependence on renal dialysis 10/08/2024 Treatment [facility] [address] [address] Driss Alatorre MD End stage renal disease; Dependence on renal dialysis 10/03/2024 Treatment [facility] [address] [address] Driss Alatorre MD End stage renal disease; Dependence on renal dialysis 10/01/2024 Treatment [facility] [address] [address] Driss Alatorre MD End stage renal disease; Dependence on renal dialysis 09/17/2024 [facility] [address] [address] Driss Alatorre MD 09/12/2024 Treatment [facility] [address] [address] Driss Alatorre MD 09/10/2024 Treatment [facility] [address] [address] Driss Alatorre MD 09/05/2024 Orders Only [facility] [address] [address] Driss Alatorre MD from Last 3 Months [...] period is included. Pathologist [facility] Hgb 10.5(L) 11.2 - 15.7 g/dL [facility] Hematocrit 32.4(L) 34.1 - 44.9 % [facility] Hemoglobin x 3 31.5(L) 33.6 - 47.1 g/dL [facility] 11/14/2024 3:00 AM EDT 11/15/2024 12:46 PM EDT us Driss Alatorre MD LAB BLOOD ORDERABLES Final Resul t Performing Organization Address City/[facility]/ZIP Co de Phone Number APS [facility] [address] [place] [address] * LIH (10/31/2024 3:00 AM EDT) Only the most recent of4 resultswithin the time period is included. Pathologist [facility] Lipemia Normal Normal [facility] Icterus Normal Normal [facility] Hemolysis Normal Normal [facility] 10/31/2024 3:00 AM EDT 11/02/2024 1:10 PM EDT us Driss Alatorre MD LAB [id number] ICITED RESULTS Final Result Performing Organization Address City/[facility]/ZIP Co de Phone Number [facility] [address] [place] [address] * (ABNORMAL) Kt/V Natural Log, URR (10/31/2024 3:00 AM EDT) Only the most recent of3 resultswithin the time period is included. Pathologist [facility] Treatment Time 187 min [facility] Pre-Weight, lb [...] PM EDT us Driss Alatorre MD LAB [id number] ICITED RESULTS Final Result Performing Organization Address [facility] de Phone Number [facility] [address] [place] [address] * (ABNORMAL) Calcium Phosphorus Product, Adjusted (10/31/2024 [...] PM EDT us Driss Alatorre MD LAB [id number] ICITED RESULTS Final Result Performing Organization Address [facility] de Phone Number [facility] [address] [place] [address] * (ABNORMAL) TSAT (10/31/2024 3:00 AM EDT) [...] Final Resul t [facility] [address] [place] [address] * (ABNORMAL) CBC and Differential (10/31/2024 3:00 [...] Address [facility] de Phone Number [facility] [address] [place] [address] * (ABNORMAL) ALT (10/31/2024 3:00 AM EDT) Only the most recent of3 resultswithin the time period is included. ALT (SGPT) <7(L) 10 - 49 U/L [facility] 10/31/2024 3:00 AM EDT 11/02/2024 1:10 PM EDT us Driss Alatorre MD LAB BLOOD ORDERABLES Final Resul t Performing Organization Address [facility] Phone Number [facility] [address] [place] [address] * AST (10/31/2024 3:00 AM EDT) Only the most recent of3 resultswithin the time period is included. AST (SGOT) 11 <34 U/L [facility] 10/31/2024 3:00 AM EDT 11/02/2024 1:10 PM EDT us Driss Alatorre MD LAB BLOOD ORDERABLES Final Resul t Performing Organization Address [facility] de Phone Number [facility] [address] [place] [address] * Protein, total (10/31/2024 3:00 AM EDT) Only the most recent of3 resultswithin the time period is included. Total Protein 6.9 6.4 - 8.9 g/dL [facility] 10/31/2024 3:00 AM EDT 11/02/2024 1:10 PM EDT us Driss Alatorre MD LAB BLOOD ORDERABLES Final Resul t Performing Organization Address [facility]/State/ZIP Co de Phone Number [facility] [address] [place] [address] * (ABNORMAL) Alkaline phosphatase (10/31/2024 3:00 AM EDT) Only the most recent of3 resultswithin the time period is included. Alkaline Phosphatase 163(H) 46 - 116 U/L [facility] 10/31/2024 3:00 AM EDT 11/02/2024 1:10 PM EDT us Driss Alatorre MD LAB BLOOD ORDERABLES Final Resul t Performing Organization Address [facility] de Phone Number [facility] [address] [place] [address] * (ABNORMAL) PTH, Intact (10/31/2024 3:00 AM [...] ORDERABLES Final Resul t Performing Organization Address [facility] de Phone Number [facility] [address] [place] [address] * Magnesium (10/31/2024 3:00 AM EDT) Only the most recent of3 resultswithin the time period is included. Magnesium 2.5 1.9 - 2.7 mg/dL [facility] 10/31/2024 3:00 AM EDT 11/02/2024 1:10 PM EDT us Driss Alatorre MD LAB BLOOD ORDERABLES Final Resul t Performing Organization Address [facility] de Phone Number [facility] [address] [place] [address] * Lactate dehydrogenase (10/31/2024 3:00 AM EDT) Only the most recent of3 resultswithin the time period is included. LDH 230 120 - 246 U/L [facility] 10/31/2024 3:00 AM EDT 11/02/2024 1:10 PM EDT us Driss Alatorre MD LAB BLOOD ORDERABLES Final Resul t Performing Organization Address [facility] de Phone Number [facility] [address] [place] [address] * (ABNORMAL) Hemoglobin A1c (10/31/2024 3:00 AM [...] Address [facility] de Phone Number [facility] [address] [place] [address] * (ABNORMAL) Glucose, random (10/31/2024 3:00 AM EDT) Only the most recent of3 resultswithin the time period is included. Glucose 212(H) 74 - 109 mg/dL [facility] 10/31/2024 3:00 AM EDT 11/02/2024 1:10 PM EDT us Driss Alatorre MD LAB BLOOD ORDERABLES Final Resul t Performing Organization Address [facility] Co de Phone Number [facility] [address] [place] [address] * (ABNORMAL) Ferritin (10/31/2024 3:00 AM EDT) Only the most recent of3 resultswithin the time period is included. Ferritin 1,487(H) 10 - 291 ng/mL [facility] 10/31/2024 3:00 AM EDT 11/02/2024 1:10 PM EDT Driss Alatorre MD LAB BLOOD ORDERABLES Final Resul t Performing Organization Address [facility] de Phone Number [facility] [address] [place] [address] * (ABNORMAL) Creatinine, serum (10/31/2024 3:00 AM EDT) Only the most recent of3 resultswithin the time period is included. Creatinine 7.46(H) 0.55 - 1.02 mg/dL [facility] 10/31/2024 3:00 AM EDT 11/02/2024 1:10 PM EDT us Driss Alatorre MD LAB BLOOD ORDERABLES Final Resul t Performing Organization Address [facility] de Phone Number [facility] [address] [place] [address] * (ABNORMAL) Bilirubin, total (10/31/2024 3:00 AM EDT) Only the most recent of3 resultswithin the time period is included. Total Bilirubin <0.2(L) 0.3 - 1.2 mg/dL [facility] 10/31/2024 3:00 AM EDT 11/02/2024 1:10 PM EDT us Driss Alatorre MD LAB BLOOD ORDERABLES Final Resul t Performing Organization Address [facility] Co de Phone Number [facility] [address] [place] [address] * (ABNORMAL) Lipid panel (10/31/2024 3:00 AM [...] Final Resul t [facility] [address] [place] [address] * (ABNORMAL) Electrolyte panel (10/31/2024 3:00 AM [...] ORDERABLES Final Resul t Performing Organization Address City/[facility] Co de Phone Number [facility] [address] [place] [address] * (ABNORMAL) Hemoglobin (10/24/2024 3:00 AM EDT) Only the most recent of2 resultswithin the time period is included. Hgb 9.2(L) 11.2 - 15.7 g/dL [facility] Hemoglobin x 3 27.6(L) 33.6 - 47.1 g/dL [facility] 10/24/2024 3:00 AM EDT 10/25/2024 12:19 PM EDT us Driss Alatorre MD LAB BLOOD ORDERABLES Final Resul t Performing Organization Address [facility] Co de Phone Number [facility] [address] [place] [address] * Potassium (10/17/2024 3:00 AM EDT) Potassium 4.3 3.4 - 5.0 mEq/L [facility] 10/17/2024 3:00 AM EDT 10/18/2024 12:46 PM EDT us Driss Alatorre MD LAB BLOOD ORDERABLES Final Resul t Performing Organization Address [facility] Co de Phone Number [facility] [address] [place] [address] from Last 3 Months Insurance [facility] MCR ([id number]) [facility] ([id number]) Care Teams Study Abroad Coordinator Relationship Specialty Start Date End Date Patricia Ingram MD [address] [place] [id number] PCP - General 08/10/20
--- OUTSIDE RECORDS SUMMARY | 2024-12-02 19:21 | XMS_ITS | Encounter Summary ---
Author Organization [facility] Address [address] [facility] [address] [place] [address] Phone Care Team Providers Care Addictions Recovery Specialist Name Role Phone Patricia Ingram MD Primary Care Provider [phone] Encounter Details Date Type Department Care Team (Late st Contact Info) Description 12/21/2020 Orders Only [facility] [address] [place] [phone] Yared Powell MD [address] [facility] [address] [place] [phone] Nephrotic range proteinuria; Renal disorder due to [...] osteodystrophy documented in this encounter Care Teams Addictions Recovery Specialist Relationship Specialty Start Date End Date Patricia Ingram MD [address] [place] [address] PCP - General 08/10/20 documented as of this encounter
--- OUTSIDE RECORDS SUMMARY | 2024-12-02 19:21 | XMS_ITS | Encounter Summary ---
Author Organization [facility] [place] Address [address] [facility] [address] [place] [address] Phone Care Team Providers Care Emergency Room Clinician Name Role Phone Patricia Ingram MD Primary Care Provider [phone] Reason for Visit * Reason Comments Med Refill Encounter Details Date Type Department Care Team ([facility] st Contact Info) Description 09/07/2021 Refill [facility] [address] [place] [phone] Yared Powell MD [address] [facility] [address] [place] [phone] Social History Tobacco Use Types Packs/Day Years [...] on filedocumented in this encounter Care Teams Emergency Room Clinician Relationship Specialty Start Date End Date Patricia Ingram MD [address] [place] [address] PCP - General 08/10/20 documented as of this encounter
--- OUTSIDE RECORDS SUMMARY | 2024-12-02 19:21 | XMS_ITS | Encounter Summary ---
Author Organization [facility] Address [address] [facility] [address] [place] [address] Phone Care Team Providers Care Lime Spreader Name Role Phone Patricia Ingram MD Primary Care Provider [phone] Encounter Details Date Type Department Care Team ([facility] st Contact Info) Description 11/28/2024 Treatment [facility] [address] Richard Alatorre MD [address] [address] End stage renal disease; Dependence [...] care for end stage renal disease. Attending Fraud Prevention Analyst: RICHARD ALATORRE MD Dialysis Location: [facility] Schedule: Shift: 2 OVERVIEW Patient is stable. HOME MEDICATIONS Medications reviewed. Current [facility] Medications ACETAMINOPHEN EXTRA STRENGTH 500 MG [...] dialysis documented in this encounter Care Teams Lime Spreader Relationship Specialty Start Date End Date Patricia Ingram MD [address] [place] [address] PCP - General 08/10/20 documented as of this encounter
--- OUTSIDE RECORDS SUMMARY | 2024-12-02 19:21 | XMS_ITS | Encounter Summary ---
Author Organization [facility] [place] Address 100 [facility] [address] [place] [address] Phone Care Team Providers Care Grain Drier Name Role Phone Patricia Ingram MD Primary Care Provider [phone] Reason for Visit * Reason Comments Med Refill Encounter Details Date Type Department Care Team (Late st Contact Info) Description 11/08/2022 Refill [facility] [address] [facility] [place] [address] Feliciano Baldwin MD Social History Tobacco [...] on filedocumented in this encounter Care Teams Grain Drier Relationship Specialty Start Date End Date Patricia Ingram MD [address] [place] [address] PCP - General 08/10/20 documented as of this encounter
--- OUTSIDE RECORDS SUMMARY | 2024-12-02 19:21 | XMS_ITS | Encounter Summary ---
Author Organization [facility] [place] Address [address] [facility] [address] [place] [address] Phone Care Team Providers Care Wheel Lacer And Truer Name Role Phone Patricia Ingram MD Primary Care Provider [phone] Reason for Visit * Reason Comments Med Refill Encounter Details Date Type Department Care Team (Late st Contact Info) Description 09/07/2022 Refill [facility] [address] [place] [address] Kentrell Leos MD Social History Tobacco [...] on filedocumented in this encounter Care Teams Wheel Lacer And Truer Relationship Specialty Start Date End Date Patricia Ingram MD [address] [place] [address] PCP - General 08/10/20 documented as of this encounter
[2024-12-02 19:29] LABS: INTERNATIONAL NORM RATIO 0.9 (0.9-1.1); Prothrombin Time 10.6 SEC (10.9-12.4)
[2024-12-02 19:31] LABS: Partial Thromboplastin Time 31.3 SEC (26.0-36.8)
[2024-12-02 19:45] LABS: Alanine Aminotransferase 8 U/L (0-31); Albumin Level 3.9 g/dL (3.5-5.0); Alkaline Phosphatase 114 U/L (39-117); Anion Gap 17 (12-20); Aspartate Amino Transferase 11 U/L (5-31); Bilirubin Total 0.4 mg/dL (0.0-1.0); Blood Urea Nitrogen 38 mg/dL (9-16); Calcium 9.7 mg/dL (8.4-10.2); Carbon Dioxide 29 mmol/L (22-29); Chloride 101 mmol/L (96-108); Creatinine Clr Calc Pharmacy 4.8; Estimated Glomerular Filt Rate 6; Glucose Random 239 mg/dL (60-115); Potassium 4.8 mmol/L (3.3-5.1); Sodium 142 mmol/L (135-145); Total Protein 6.9 g/dL (6.5-8.0)
--- NOTE | 2024-12-02 20:10 | PC.NURSE ---
Failed attempt at obtaining an IV line and failed attempt at obtaining an US guided IV line. made aware.
--- NOTE | 2024-12-02 20:56 | ECG_ITS ---
Test Reason : DIZZINESS Blood Pressure : */* mmHG Vent. Rate : 63 BPM Atrial Rate : 63 BPM P-R Int : 152 ms QRS Dur : 94 ms QT Int : 418 ms P-R-T Axes : 35 37 43 degrees QTcB Int : 427 ms Normal sinus rhythm RSR' or QR pattern in V1 suggests right ventricular conduction delay Septal infarct (cited on or before 28-Nov-2017) Abnormal ECG When compared with ECG of 10-Oct-2024 10:29, No significant changes seen Referred By: Abdoulaye Brooks Electronically Signed By: JOSH STEWART
[2024-12-02 20:57] LABS: OBS Int Ctl Valid YES; OBS1 POSITIVE (NEGATIVE)
--- NOTE | 2024-12-02 21:00 | PC.NURSE ---
Failed attempt at establishing a left EJ IV line by . US guided 18G IV line established by on RUE.
[2024-12-02 21:19] VITALS: BP 162/54
[2024-12-02] MEDS: Furosemide 40 MG/4 ML VIAL IVPUSH (21:19)
[2024-12-02 21:22] VITALS: BP 166/51; PULSE 65; RESP 15; TEMP 36.7
--- NOTE | 2024-12-02 21:23 | P.HPHOSP_ITS ---
History of Present Illness Date of Service: 12/02/24 Chief Complaint: Dizziness This is a 69-year-old female with pertinent history of CAD status post PCI on DAPT, ESRD on hemodialysis, gastroesophageal reflux disease, hypertension, insulin-dependent type 2 diabetes mellitus, hyperlipidemia, mood disorder who presents to the emergency department for evaluation of low hemoglobin. Patient states she has been feeling dizzy and tired for the last few days. Also has noticed increased episode of black stools over the last few days. No bright red blood in stools. No nausea, vomiting or abdominal pain. No fever or chills. Patient got blood work done as an outpatient and hemoglobin was found to be low so she was sent to the ER for PRBC transfusion. Patient is on dual antiplatelet therapy with aspirin and Brilinta. No chest pain, palpitations, shortness of breath, changes in urinary habits. In the emergency department, hemoglobin was found to be 7.5 and 1 unit PRBC ordered. 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 End stage chronic kidney disease Edema Atherosclerotic cardiovascular disease SHELIA (obstructive sleep apnea) Hypercalcemia Asthma DJD (degenerative joint disease) Chronic kidney disease Other and unspecified hyperlipidemia Type 2 diabetes mellitus with unspecified complications Essential hypertension Family History Father Cardiovascular disease Hypertension Mother Cardiovascular disease Hypertension Surgical History History of hemorrhoidectomy (01/30/23) H/O colonoscopy Hemorrhoids H/O angioplasty History of tubal ligation History of coronary artery bypass graft (~2018) Social History Household Members: Family Household Members Other:: son Housing: Apartment Housing Other:: senior apartment Are you a primary resident care technician to a significant other at home: No Do you presently have visiting nurse or other home services: Yes ([facility]) Alcohol intake: never Patient Tobacco Use Status: Never used Tobacco Smoked in Last 30 Days: No Second Hand Smoke Exposure: No Use of substances other than those prescribed or required for medical reasons: No Advance Directives: Yes Advance Directives Information Provided: Yes Advance Directives on File: Yes Advance Directives Date on File: 12/03/20 Nutrition Risks: No Nutritional Risk service: No 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al status: disabled 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: [email or web address] Allergies Allergy/AdvReac Type Severity Reaction Status Date / Time No Known Allergies Allergy Verified 12/02/24 18:58 Home Medications ?Medication ?Instructions ?Recorded ?Confirmed ?Last Taken ?Type sertraline 100 mg tablet 150 mg PO DAILY 06/10/20 12/02/24 11/28/21 History ascorbic acid (vitamin C) 500 mg 1 tab PO DAILY 12/03/20 12/02/24 11/28/21 History tablet (Vitamin C) montelukast 10 mg tablet 10 mg PO BEDTIME 12/03/20 12/02/24 11/28/21 History insulin glargine 100 unit/mL (3 8 unit subcut DAILY 01/25/23 12/02/24 Unknown History mL) subcutaneous pen (Lantus Solostar U-100 Insulin) sevelamer carbonate 800 mg tablet 800 mg PO TIDWM@0800,1200,1700 01/25/23 12/02/24 Unknown History acetaminophen 500 mg tablet 1,000 mg PO Q8H PRN Pain 02/08/23 12/02/24 Unknown History budesonide-formoterol HFA 80 2 puff inhalation BID 02/08/23 12/02/24 Unknown History mcg-4.5 mcg/actuation aerosol inhaler (Symbicort) cholecalciferol (vitamin D3) 25 25 mcg PO DAILY 01/01/24 12/02/24 Unknown History mcg (1,000 unit) tablet carvedilol 3.125 mg tablet 3.125 mg PO BID 08/13/24 12/02/24 Unknown History docusate sodium 100 mg capsule 100 mg PO BID PRN Constipation 08/13/24 12/02/24 Unknown History ezetimibe 10 mg tablet 10 mg PO DAILY 08/13/24 12/02/24 Unknown History insulin glargine 100 unit/mL 7 unit subcut BEDTIME 08/13/24 12/02/24 Unknown History subcutaneous solution (Lantus U-100 Insulin) melatonin 5 mg tablet 5 mg PO BEDTIME PRN Insomnia 08/13/24 12/02/24 Unknown History ticagrelor 90 mg tablet (Brilinta) 90 mg PO BID 08/13/24 12/02/24 Unknown History calcitriol 0.25 mcg capsule 0.75 mcg PO TUTHSA 08/26/24 12/02/24 Unknown History cinacalcet 30 mg tablet 30 mg PO DAILY 08/26/24 12/02/24 Unknown History diclofenac sodium 1 % topical gel 1 g topical TID PRN pain 08/26/24 12/02/24 Unknown History insulin aspart U-100 100 unit/mL 3 unit subcut DAILY@1200 08/26/24 12/02/24 Unknown History (3 mL) subcutaneous pen (Novolog FlexPen U-100 Insulin aspart) insulin aspart U-100 100 unit/mL See Protocol subcut BIDAC 08/26/24 12/02/24 Unknown History (3 mL) subcutaneous pen (Novolog FlexPen U-100 Insulin aspart) polyethylene glycol 3350 17 17 g PO BID PRN Constipation 08/26/24 12/02/24 Unknown History gram/dose oral powder sennosides 8.6 mg tablet (senna) 17.2 mg PO BEDTIME PRN Constipation 08/26/24 12/02/24 Unknown History isosorbide mononitrate 30 mg 30 mg PO DAILY 10/02/24 12/02/24 Unknown History tablet,extended release 24 hr pantoprazole 40 mg tablet,delayed 40 mg PO DAILY@0630 10/10/24 12/02/24 Unknown History release Physical Exam 2 Vital Signs and Narrative: Vital Signs: Last Vital Signs Temp 98.0 F 12/02/24 21:22 Pulse 65 12/02/24 21:22 Resp 15 12/02/24 21:22 BP 166/51 H 12/02/24 21:22 Pulse Ox 100 12/02/24 18:55 O2 Del Method Room Air 12/02/24 18:55 BMI result Body Mass Index 29.8 Middle-aged female lying in bed in no distress Neck supple, no JVD Regular rate and rhythm, S1-S2 heard Regular breath sounds bilaterally, no wheezing or crackles appreciated Abdomen soft nontender, no guarding, no rigidity Patient is awake, alert and oriented to self, place, time and person ; no focal motor deficit Psych: Normal mood No pedal edema Results Labs 12/02/24 19:15 12/02/24 19:15 Labs: Laboratory Results - last 24 hr 12/02/24 12/02/24 19:15 20:53 MCV 94.7 MCH 30.9 MCHC 32.6 RDW 15.3 Plt Count 192 MPV 9.5 Immature Gran % (Auto) 0.2 Neut % (Auto) 70.1 Lymph % (Auto) 20.5 [place] % (Auto) 7.6 Eos % (Auto) 1.4 Baso % (Auto) 0.2 Lymph # (Auto) 0.9 L [place] # (Auto) 0.3 Eos # (Auto) 0.1 Baso # (Auto) 0.0 Abs Immat Gran (auto) 0.01 Absolute Neuts (auto) 3.1 Absolute Nucleated RBC 0.000 Nucleated RBC % (auto) 0.0 PT 10.6 L INR 0.9 APTT 31.3 Anion Gap 17 Estim Creat Clear Calc 4.8 Estimated GFR 6 Random Glucose 239 H Calcium 9.7 Total Bilirubin 0.4 AST 11 ALT 8 Alkaline Phosphatase 114 Total Protein 6.9 Albumin 3.9 Stool Occult Blood POSITIVE Blood Type B Positive Antibody Screen NEGATIVE Crossmatch See Detail Assessment and Plan (1) Symptomatic anemia: Status: Acute Plan This is a 69-year-old female with pertinent history of CAD status post PCI on DAPT, congestive heart failure with preserved ejection fraction, ESRD on hemodialysis, gastroesophageal reflux disease, hypertension, insulin-dependent type 2 diabetes mellitus, hyperlipidemia, mood disorder who presents to the emergency department for evaluation of low hemoglobin. #. Symptomatic blood loss anemia due to GI bleed: Will admit patient with cardiac monitoring. Stool occult blood positive in the ER. Initiating IV Protonix. Consulted Gastroenterology, appreciate assistance. Holding dual antiplatelet therapy. 1 unit PRBC being transfused in the ER. Closely monitor H&H #. Insulin-dependent diabetes mellitus with hyperglycemia: Initiating basal plus insulin regimen #. Coronary artery disease: Hold DAPT in the setting of above. On statin #. ESRD, Monday//Monday: Consulted Nephrology #. Congestive heart failure with preserved ejection fraction: No decompensation during admission. On Lasix #. Hypertension: Hold the setting of possible GI bleed #. Mood disorder: Resume home mood stabilizers once no longer NPO Med rec pending DVT prophylaxis: Mechanical Full code. Discussed with patient at bedside Admit as inpatient and will require two night minimum hospital stay for PRBC transfusion, close hemodynamic monitoring. (as above), which is not possible in a lesser acute setting. Quality Stroke Does the patient have a stroke diagnosis?: No VTE Prior VTE?: No VTE Risk Level:: Medical - moderate - high VTE Device Contraindication: N/A - Device Ordered VTE Drug Contraindication: Treatment Not Indicated
[2024-12-02 21:39] VITALS: BP 155/55; PULSE 65; RESP 16; TEMP 36.7
--- NOTE | 2024-12-02 21:40 | PC.NURSE ---
One unit of RBC's started with no complications or reactions noted. Pt tolerating well. VSS. NSR on monitor with HR 60's Pt denies any pain at this time. Monitoring is ongoing.
--- NOTE | 2024-12-02 21:44 | PHA.MEDREC ---
Pharmacy Consult ? Medication Reconciliation Pharmacy has completed the medication reconciliation. MED REC DONE USING CLAIM HISTORY AND PRIMARY CARE PROVIDER MED LIST. PATIENT AND CAREGIVER HAVE PREVIOUSLY NOT KNOWN WHAT HOME MEDS ARE.
[2024-12-02] MEDS: Pantoprazole Sodium 40 MG/10 ML VIAL IVPUSH (22:20)
[2024-12-02 22:27] VITALS: BP 151/52; PULSE 65; RESP 18; TEMP 36.8; O2SAT 97
[2024-12-02 22:42] LABS: Glucose, Whole Blood 155 mg/dL (60-115)
[2024-12-02] MEDS: Insulin Glargine,Hum.rec.anlog 100 UNIT/ML 10 ML VIAL SUBCUT (22:44)
[2024-12-03] VITALS (7 sets, daily range): BP systolic 112–176; BP diastolic 48–68; PULSE 64–72; RESP 13–22; TEMP 36.2–36.9; O2SAT 94–100
[2024-12-03] MEDS: Melatonin 3 MG TABLET 6 MG PO (03:26)
[2024-12-03 04:23] LABS: Hematocrit 25.8 % (37.0-47.0); Hemoglobin 8.5 g/dl (12.0-16.0); Mean Corpuscular HGB Conc 32.9 g/dl (31.0-35.0); Mean Corpuscular Hemoglobin 30.5 pg (27.0-33.0); Mean Corpuscular Volume 92.5 fL (80.0-98.0); Mean Platelet Volume 10.3 fL (9.4-12.3); Platelet Count 188 X10*3/uL (160-400); Red Blood Count 2.79 X10*6/uL (4.20-5.50); Red Cell Distribution Width 15.4 % (11.0-16.0)
[2024-12-03 04:38] LABS: Anion Gap 17 (12-20); Blood Urea Nitrogen 39 mg/dL (9-16); Calcium 9.6 mg/dL (8.4-10.2); Carbon Dioxide 27 mmol/L (22-29); Chloride 104 mmol/L (96-108); Creatinine Clr Calc Pharmacy 4.8; Estimated Glomerular Filt Rate 6; Glucose Random 79 mg/dL (60-115); Potassium 4.1 mmol/L (3.3-5.1); Sodium 144 mmol/L (135-145)
[2024-12-03 05:26] LABS: Glucose, Whole Blood 67 mg/dL (60-115)
--- NOTE | 2024-12-03 05:43 | PC.NURSE ---
Hermes text sent to the hospitalist as pt is diabetic & NPO with a POC 67. Orders are to give dextrose IV push.
[2024-12-03] MEDS: Pantoprazole Sodium 40 MG/10 ML VIAL IVPUSH ×2 (06:03→18:52)
[2024-12-03] MEDS: Dextrose 50 % 25 GM/50 ML SYRINGE IVPUSH (06:03)
[2024-12-03] MEDS: hydrOXYzine HCL 50 MG/ML VIAL IM (06:37)
[2024-12-03 07:40] LABS: Glucose, Whole Blood 151 mg/dL (60-115)
[2024-12-03 07:40] LABS: Glucose, Whole Blood 167 mg/dL (60-115)
[2024-12-03] MEDS: Ascorbic Acid 500 MG TABLET PO (10:06)
[2024-12-03] MEDS: 0.9 % Sodium Chloride Flush 3 ML SYRINGE IVFLUSH ×2 (10:06→18:54)
[2024-12-03] MEDS: Sertraline HCL 50 MG TABLET 150 MG PO (10:06)
[2024-12-03] MEDS: Cholecalciferol (Vitamin D3) 25 MCG TABLET PO (10:07)
[2024-12-03] MEDS: Ezetimibe 10 MG TABLET PO (10:07)
[2024-12-03] MEDS: Isosorbide Mononitrate 30 MG TAB.ER.24H PO (10:07)
[2024-12-03] MEDS: amLODIPine Besylate 10 MG TABLET PO (10:07)
[2024-12-03] MEDS: hydrALAZINE HCl 25 MG TABLET PO ×3 (10:07→21:09)
[2024-12-03] MEDS: carvediloL 3.125 MG TABLET PO ×2 (10:07→21:09)
--- NOTE | 2024-12-03 11:23 | PC.NURSE ---
Patient is a 69-year-old female with pertinent history of CAD status post PCI on DAPT, ESRD on hemodialysis, gastroesophageal reflux disease, hypertension, insulin-dependent type 2 diabetes mellitus, hyperlipidemia, mood disorder who presents to the emergency department for evaluation of low hemoglobin. Patient states she has been feeling dizzy and tired for the last few days. Received 1 unit of PRBC's in the ED. traffic monitor specialist maintained and NSR noted. Lungs with BBR. ABdomen soft, non-tender with positive bowel sounds. Positive pedal pulses with trace LE edema. AVF noted to left upper arm with positive bruit and thrill. Pedning in-patient bed assignment
--- NOTE | 2024-12-03 11:41 | P.PNIM_ITS ---
Subjective Subjective Date of Service: 12/03/24 Interval History: weakness Physical Exam 2 Vital Signs: Vital Signs: Last Vital Signs Temp 98.2 F 12/03/24 10:03 Pulse 68 12/03/24 10:03 Resp 15 12/03/24 10:03 BP 171/59 H 12/03/24 10:03 Pulse Ox 94 12/03/24 10:03 O2 Del Method Room Air 12/03/24 10:03 BMI result Body Mass Index 29.8 General: AO X 3, no acute distress Resp: CTA bilateral, no accessory muscles used CVS: S1,S2,RRR GI: soft, non tender, non distended Neuro: motor grossly intact, alert Psych: appropriate affect, appropriate insight Objective Data Active Medications Acetaminophen (Acetaminophen 325 Mg Tablet) 650 mg PO Q6H PRN PRN Reason: Pain, Mild 1-3,fever,headache Amlodipine Besylate (Amlodipine Besylate 10 Mg Tablet) 10 mg PO DAILY [facility]; Protocol Last Admin: 12/03/24 10:07 Dose: 10 mg Documented By: GUERA Ascorbic Acid (Ascorbic Acid 500 Mg Tablet) 500 mg PO DAILY [facility] Last Admin: 12/03/24 10:06 Dose: 500 mg Documented By: GUERA Atorvastatin Calcium (Atorvastatin Calcium 80 Mg Tablet) 80 mg PO BEDTIME [facility] Calcitriol (Calcitriol 0.25 Mcg Capsule) 0.75 mcg PO TUTHSA [facility] Calcium Carbonate (Calcium Carbonate 750 Mg Tab.Chew) 750 mg PO Q4H PRN PRN Reason: Heartburn Carvedilol (Carvedilol 3.125 Mg Tablet) 3.125 mg PO BID [facility]; Protocol Last Admin: 12/03/24 10:07 Dose: 3.125 mg Documented By: GUERA Cinacalcet (Cinacalcet Hcl 30 Mg Tablet) 30 mg PO DAILY [facility] Dextrose (Dextrose 50 % 25 Gm/50 Ml Syringe) 25 gm IVPUSH Q15M PRN; Protocol PRN Reason: per Hypoglycemia Standing Ord. Last Admin: 12/03/24 06:03 Dose: 25 gm Documented By: DAVID Ezetimibe (Ezetimibe 10 Mg Tablet) 10 mg PO DAILY [facility] Last Admin: 12/03/24 10:07 Dose: 10 mg Documented By: GUERA Fluticasone/Vilanterol (Fluticasone/Vilanterol 100/25 Blst.W.Dev) 1 puff INHALE RDAILY [facility] Last Admin: 12/03/24 09:45 Dose: Not Given Documented By: MOY Non-Admin Reason: pharmacy called for med Glucose (Glucose Gel 15 Gm Gel..Gram.) 15 gm PO Q15M PRN; Protocol PRN Reason: per Hypoglycemia Standing Ord. Hydralazine HCl (Hydralazine Hcl 25 Mg Tablet) 25 mg PO TID [facility]; Protocol Last Admin: 12/03/24 10:07 Dose: 25 mg Documented By: GUERA Insulin Glargine (Insulin Glargine,Hum.Rec.Anlog 100 Unit/Ml 10 Ml Vial) 5 unit SUBCUT BEDTIME [facility] Last Admin: 12/02/24 22:44 Dose: 5 unit Documented By: DAVID Insulin Human Lispro (Insulin Lispro 100 Unit/Ml 3 Ml Vial) 0 unit SUBCUT Q6H [facility]; Protocol Last Admin: 12/03/24 07:56 Dose: Not Given Documented By: GUERA Non-Admin Reason: NPO Isosorbide Mononitrate (Isosorbide Mononitrate 30 Mg Tab.Er.24h) 30 mg PO DAILY [facility]; Protocol Last Admin: 12/03/24 10:07 Dose: 30 mg Documented By: GUERA Magnesium Hydroxide (Milk Of Magnesia 30 Ml Oral.Susp) 30 ml PO DAILY PRN PRN Reason: Constipation Melatonin (Melatonin 3 Mg Tablet) 6 mg PO BEDTIME PRN PRN Reason: Insomnia Last Admin: 12/03/24 03:26 Dose: 6 mg Documented By: DAVID Montelukast Sodium (Montelukast Sodium 10 Mg Tablet) 10 mg PO BEDTIME ROSANA Ondansetron HCl (Ondansetron Hcl 4 Mg/2 Ml Vial) 4 mg IVPUSH Q8H PRN PRN Reason: Nausea and Vomiting Pantoprazole Sodium (Pantoprazole Sodium 40 Mg/10 Ml Vial) 40 mg IVPUSH BID@0630,1630 [facility] Last Admin: 12/03/24 06:03 Dose: 40 mg Documented By: DAVID Sertraline HCl (Sertraline Hcl 50 Mg Tablet) 150 mg PO DAILY [facility] Last Admin: 12/03/24 10:06 Dose: 150 mg Documented By: GUERA Sevelamer Carbonate (Sevelamer Carbonate Tablet 800 Mg Tablet) 800 mg PO TIDWM@0800,1200,1700 [facility] Sodium Chloride (0.9 % Sodium Chloride Flush 3 Ml Syringe) 3 ml IVFLUSH QSHIFT [facility] Last Admin: 12/03/24 10:06 Dose: 3 ml Documented By: GUERA Vitamin D (Cholecalciferol (Vitamin D3) 25 Mcg Tablet) 25 mcg PO DAILY [facility] Last Admin: 12/03/24 10:07 Dose: 25 mcg Documented By: GUERA Labs 12/03/24 04:01 12/03/24 04:01 Labs: Laboratory Results - last 24 hr 12/02/24 12/02/24 12/02/24 19:15 20:53 22:38 MCV 94.7 MCH 30.9 MCHC 32.6 RDW 15.3 Plt Count 192 MPV 9.5 Immature Gran % (Auto) 0.2 Neut % (Auto) 70.1 Lymph % (Auto) 20.5 [place] % (Auto) 7.6 Eos % (Auto) 1.4 Baso % (Auto) 0.2 Lymph # (Auto) 0.9 L [place] # (Auto) 0.3 Eos # (Auto) 0.1 Baso # (Auto) 0.0 Abs Immat Gran (auto) 0.01 Absolute Neuts (auto) 3.1 Absolute Nucleated RBC 0.000 Nucleated RBC % (auto) 0.0 PT 10.6 L INR 0.9 APTT 31.3 Anion Gap 17 Estim Creat Clear Calc 4.8 Estimated GFR 6 POC Glucose 155 H Random Glucose 239 H Calcium 9.7 Total Bilirubin 0.4 AST 11 ALT 8 Alkaline Phosphatase 114 Total Protein 6.9 Albumin 3.9 Stool Occult Blood POSITIVE Blood Type B Positive Antibody Screen NEGATIVE Crossmatch See Detail 12/03/24 12/03/24 12/03/24 04:01 05:22 06:40 MCV 92.5 MCH 30.5 MCHC 32.9 RDW 15.4 Plt Count 188 MPV 10.3 Immature Gran % (Auto) Neut % (Auto) Lymph % (Auto) [place] % (Auto) Eos % (Auto) Baso % (Auto) Lymph # (Auto) [place] # (Auto) Eos # (Auto) Baso # (Auto) Abs Immat Gran (auto) Absolute Neuts (auto) Absolute Nucleated RBC 0.000 Nucleated RBC % (auto) 0.0 PT INR APTT Anion Gap 17 Estim Creat Clear Calc 4.8 Estimated GFR 6 POC Glucose 67 167 H Random Glucose 79 Calcium 9.6 Total Bilirubin AST ALT Alkaline Phosphatase Total Protein Albumin Stool Occult Blood Blood Type Antibody Screen Crossmatch 12/03/24 07:36 MCV MCH MCHC RDW Plt Count MPV Immature Gran % (Auto) Neut % (Auto) Lymph % (Auto) [place] % (Auto) Eos % (Auto) Baso % (Auto) Lymph # (Auto) [place] # (Auto) Eos # (Auto) Baso # (Auto) Abs Immat Gran (auto) Absolute Neuts (auto) Absolute Nucleated RBC Nucleated RBC % (auto) PT INR APTT Anion Gap Estim Creat Clear Calc Estimated GFR POC Glucose 151 H Random Glucose Calcium Total Bilirubin AST ALT Alkaline Phosphatase Total Protein Albumin Stool Occult Blood Blood Type Antibody Screen Crossmatch Assessment and Plan (1) Depression with anxiety: Status: Acute Plan 69F PMH CAD, esrd on HD with RTANE, pud, htn, hld, dm, mood disorder presented with anemia and weakness symptomatic anemia likely combination of acute on chronic blood loss and anemia related to end- stage renal disease Status post 1 unit PRBC and hemoglobin improved appropriately Continue IV PPI Follow up Gastroenterology Follow up H and H Diabetes with hyperglycemia Basal bolus insulin Coronary artery disease Holding antiplatelets due to bleed, continue statin End-stage renal disease Continue hemodialysis, follows with RTANE Hypertension Continue hydralazine, Imdur, amlodipine, carvedilol DVT prophylaxis-mechanical due to GI bleed Full Code reason for continued hospitalization: Monitoring anemia Quality Stroke Does the patient have a stroke diagnosis?: No VTE Prior VTE?: No VTE Risk Level:: Medical - moderate - high VTE Device Contraindication: N/A - Device Ordered VTE Drug Contraindication: Treatment Not Indicated
[2024-12-03] MEDS: calcitrioL 0.25 MCG CAPSULE 0.75 MCG PO (11:50)
[2024-12-03] MEDS: Cinacalcet HCl 30 MG TABLET PO (11:50)
--- NOTE | 2024-12-03 12:11 | MHC.SHP ---
Pre-Procedural Eval Section A - 24 Hr Update-Section A only Date of Service: 12/03/24 The patient is an INPATIENT: Yes Changes since office visit: No Cold of Flu in the past 2 weeks, No New Medical Problems, No Changes in Medication and No Patient answered all questions The patient has been examined within 24 hours of the surgical procedure. The History & Physical has been completed within 30 days and I have reviewed it.: Yes Section B - Complete if H&P > 30 days Chief Complaint: dizziness Allergies: Allergies Allergy/AdvReac Type Severity Reaction Status Date / Time No Known Allergies Allergy Verified 12/02/24 18:58 Plan I have reviewed the history and physical and performed a pertinent physical examination on my patient. No changes have occurred unless specified. Time Spent With Patient Time: Total time managing care of this patient today ____ minutes.
--- NOTE | 2024-12-03 12:12 | P.EN_ITS ---
Event Note Date of Service: 12/03/24 Event Note: GI consult dictated Colonoscopy scheduled for tomorrow for evaluation of anemia and hemoccult positive stools, as last exam was incomplete due to poor prep. Consent obtained from patient via manufacturing engineer chief. Time Spent With Patient Time: Total time managing care of this patient today ____ minutes.
--- NOTE | 2024-12-03 12:44 | MHC.CM.PN ---
Patient lives in an apartment, with her Son, as part of an Adult Foster Care setting and she attends an adult day program. Patient attends HD Q T//SAT@ [facility] in [place], has a SOFTWARE ENGINEER DEVELOPER 15 hours/week and she uses a walker to assist with mobility. Home/resume said services is the goal and CM has initiated and will follow for dc planning. PCP is Dr. Patricia Ingram, and Niece/Apolonia has provided transportation to home, in the past.CM left a detailed message for Daughter/HCP/Alice @ [phone], addressing the IMM and the original will be mailed certified letter to HCP and a copy will be placed on the chart.
--- NOTE | 2024-12-03 12:49 | CONS_ITS ---
DATE OF SERVICE: 12/03/2024 REFERRING PHYSICIAN: Fidel Fried MD REASON FOR CONSULTATION: Anemia and Hemoccult-positive stools. HISTORY OF PRESENT ILLNESS: The patient is a pleasant 69-year-old woman, well known to me from recent evaluation. She has a history of end-stage renal disease and is on dialysis. She has also had recent percutaneous coronary intervention following [place] in July with stent placement and has previous bypass surgery. Since that time, she has been on Brilinta and aspirin and has had problems with anemia and GI blood loss. She presented in July with significant anemia and underwent upper endoscopy, which was remarkable for duodenitis, gastritis, but no ulcer. Antral biopsies were obtained and were negative for H pylori. She last underwent colonoscopy and in January 2023 because of GI bleeding and anemia and the exam was limited due to a poor prep. The scope could only be advanced to the mid transverse colon, but the procedure was limited and no lesions were identified. No bleeding was seen. She presented to the emergency room with complaints of weakness yesterday and was found to have a hematocrit of 22.8 down from 27.4. She received 1 unit of packed red blood cells in transfusion with improvement in her hematocrit to 25.8. Rectal exam disclosed brown Hemoccult-positive stool. She denies any hematemesis. She has had some black stool at home by her report similar to her last presentation in July and also had some hematochezia. She states she has been compliant with her proton pump inhibitor. PAST MEDICAL HISTORY: 1. End-stage renal disease, on hemodialysis. 2. Anemia with Hemoccult-positive stools and GI blood loss. 3. Coronary artery disease as above. 4. Hypertension. 5. Diabetes mellitus. 6. Hyperlipidemia. 7. Positive PPD. 8. Gastroesophageal reflux disease. 9. Sleep apnea. 10. Degenerative joint disease. 11. Asthma. 12. Hypercalcemia. CURRENT MEDICATIONS: Her current medication list is reviewed in the chart. ALLERGIES: NKDA. FAMILY HISTORY: This is reviewed again and is noncontributory. SOCIAL HISTORY: There is no reported substance, tobacco, or alcohol abuse. REVIEW OF SYSTEMS: SKIN: No pruritus. HEENT: Negative. CARDIOPULMONARY: No shortness of breath or chest pain. GASTROINTESTINAL: As above. GENITOURINARY: Negative. NEUROPSYCHIATRIC: Negative. PHYSICAL EXAMINATION: GENERAL: Shows a pleasant female, lying comfortably in bed. VITAL SIGNS: Reviewed in electronic medical record and are stable. SKIN: Anicteric. HEENT: Shows no scleral icterus. NECK: Without lymphadenopathy or thyromegaly. LUNGS: Clear. HEART: Shows a regular rate and rhythm. S1, S2. No murmur. ABDOMEN: Soft without focal masses or tenderness. Bowel sounds are present. No organomegaly is noted. EXTREMITIES: Without edema. LABORATORY DATA: Reviewed as is her medical record. IMPRESSION: Anemia with Hemoccult-positive stools, on dual antiplatelet therapy. This does not seem consistent with an acute upper GI bleed based on her presentation and the rectal examination as well as findings at her last endoscopy. She does state compliance with her proton pump inhibitor. I encouraged her to continue this. I have recommended repeat colonoscopy as her last examination in 2022 was incomplete and limited outpatient followup had been scheduled, but she did not follow through for this. I have discussed with her via the hospital director process the importance of completing the bowel prep to her fullest extent for a good and complete examination. She understands risks and benefits of the procedure and agrees to proceed. This will be scheduled for tomorrow. Thanks for asking me to see her. I will follow her in the hospital with you. MD JESSICA Umana/DEBBIE / [id number] MTDD
--- NOTE | 2024-12-03 13:45 | PC.NURSE ---
Sent to dialysis
[2024-12-03 18:06] LABS: Glucose, Whole Blood 65 mg/dL (60-115)
[2024-12-03] MEDS: Sevelamer Carbonate Tablet 800 MG TABLET PO (18:53)
--- NOTE | 2024-12-03 19:42 | MHC.EDTECH ---
pt refusing dinner tray at this time. pt resting, RN aware
[2024-12-03] MEDS: PEG 3350/Na Sulf,Bicarb,Cl/KCL 4,000 ML SOLN.RECON 4000 ML PO (20:59)
[2024-12-03] MEDS: Insulin Glargine,Hum.rec.anlog 100 UNIT/ML 10 ML VIAL SUBCUT (21:08)
[2024-12-03 21:09] LABS: Glucose, Whole Blood 99 mg/dL (60-115)
[2024-12-03] MEDS: Atorvastatin Calcium 80 MG TABLET PO (21:09)
[2024-12-03] MEDS: Montelukast Sodium 10 MG TABLET PO (21:09)
--- NOTE | 2024-12-04 00:41 | PC.NURSE ---
patient refusing golytely at this time. patient educated on bowel prep for pending colonoscopy. patient still refusing. Dr Corky lamar.
[2024-12-04 03:24] LABS: Glucose, Whole Blood 53 mg/dL (60-115)
[2024-12-04] MEDS: Dextrose 50 % 25 GM/50 ML SYRINGE IVPUSH ×2 (03:25→09:46)
[2024-12-04 03:27] VITALS: BP 180/75; PULSE 55; RESP 16; TEMP 36.2; O2SAT 100
[2024-12-04 04:01] LABS: Glucose, Whole Blood 174 mg/dL (60-115)
[2024-12-04] MEDS: Pantoprazole Sodium 40 MG/10 ML VIAL IVPUSH ×2 (05:59→15:30)
[2024-12-04 07:09] VITALS: BP 144/63; PULSE 66; RESP 17; TEMP 36.3; O2SAT 93
[2024-12-04 07:13] LABS: Hematocrit 29.5 % (37.0-47.0); Hemoglobin 9.5 g/dl (12.0-16.0); Mean Corpuscular HGB Conc 32.2 g/dl (31.0-35.0); Mean Corpuscular Hemoglobin 30.3 pg (27.0-33.0); Mean Corpuscular Volume 93.9 fL (80.0-98.0); Mean Platelet Volume 10.2 fL (9.4-12.3); Platelet Count 213 X10*3/uL (160-400); Red Blood Count 3.14 X10*6/uL (4.20-5.50); Red Cell Distribution Width 15.7 % (11.0-16.0); White Blood Count 5.4 X10*3/uL (4.8-10.8)
[2024-12-04 07:41] LABS: Anion Gap 16 (12-20); Blood Urea Nitrogen 19 mg/dL (9-16); Calcium 9.3 mg/dL (8.4-10.2); Carbon Dioxide 30 mmol/L (22-29); Chloride 98 mmol/L (96-108); Glucose Random 96 mg/dL (60-115); Potassium 4.3 mmol/L (3.3-5.1); Sodium 140 mmol/L (135-145)
[2024-12-04 07:45] LABS: Creatinine Clr Calc Pharmacy 6.7; Estimated Glomerular Filt Rate 9
[2024-12-04] MEDS: Isosorbide Mononitrate 30 MG TAB.ER.24H PO (09:20)
[2024-12-04] MEDS: Ascorbic Acid 500 MG TABLET PO (09:20)
[2024-12-04] MEDS: amLODIPine Besylate 10 MG TABLET PO (09:20)
[2024-12-04] MEDS: Cinacalcet HCl 30 MG TABLET PO (09:20)
[2024-12-04] MEDS: Sertraline HCL 50 MG TABLET 150 MG PO (09:20)
[2024-12-04] MEDS: hydrALAZINE HCl 25 MG TABLET PO ×2 (09:20→15:28)
[2024-12-04] MEDS: Ezetimibe 10 MG TABLET PO (09:20)
[2024-12-04] MEDS: carvediloL 3.125 MG TABLET PO (09:21)
[2024-12-04] MEDS: Cholecalciferol (Vitamin D3) 25 MCG TABLET PO (09:21)
[2024-12-04] MEDS: 0.9 % Sodium Chloride Flush 3 ML SYRINGE IVFLUSH ×2 (09:24→15:30)
[2024-12-04] MEDS: ondansetron HCL 4 MG/2 ML VIAL IVPUSH (09:29)
[2024-12-04 09:46] LABS: Glucose, Whole Blood 62 mg/dL (60-115)
[2024-12-04 10:22] LABS: Glucose, Whole Blood 192 mg/dL (60-115)
--- NOTE | 2024-12-04 10:58 | P.DS_ITS ---
DS: Providers Provider Date of Service: 12/04/24 Date of admission: 12/02/24 20:43 Date of discharge: 12/04/24 Primary care physician: Patricia Ingram MD Consults: 12/02/24 21:22 Consult to Gastroenterology Routine Consulting Provider: Brandt Villegas Reason for consultation: symptomatic anemia 12/03/24 07:32 Consult to Nephrology Routine Consulting Provider: [facility] Reason for consultation: esrd DS: Diagnosis Discharge Diagnosis (1) Depression with anxiety: Status: Acute DS: Summary Hospital Course Hospital Course: from initial hpi: 69-year-old female with pertinent history of CAD status post PCI on DAPT, ESRD on hemodialysis, gastroesophageal reflux disease, hypertension, insulin- dependent type 2 diabetes mellitus, hyperlipidemia, mood disorder who presents to the emergency department for evaluation of low hemoglobin. Patient states she has been feeling dizzy and tired for the last few days. Also has noticed increased episode of black stools over the last few days. No bright red blood in stools. No nausea, vomiting or abdominal pain. No fever or chills. Patient got blood work done as an outpatient and hemoglobin was found to be low so she was sent to the ER for PRBC transfusion. Patient is on dual antiplatelet therapy with aspirin and Brilinta. No chest pain, palpitations, shortness of breath, changes in urinary habits. In the emergency department, hemoglobin was found to be 7.5 and 1 unit PRBC ordered. Stool occult blood positive hospital course: Patient was admitted for symptomatic anemia likely combination of acute on chronic blood loss anemia and anemia related to end-stage renal disease. Was transfused 1 unit PRBC and hemoglobin improved appropriately was seen by Gastroenterology who felt this was likely primarily related to end-stage renal disease but recommended colonoscopy however patient was not able to tolerate preparation and will be deferred to outpatient. For diabetes with hyperglycemia continued on basal bolus insulin. For coronary artery disease antiplatelet initially held but will be restarted on discharge. Was continued on statin. For end-stage renal disease continues with hemodialysis with renal transplant of [place]. For hypertension continued on hydralazine, Imdur, amlodipine, carvedilol. Patient is feeling better will be discharged home. Time Attestation Discharge Coordination Time (in mins): 34 Quality: Safe Use of Opioids Does Pt have an Active Cancer Diagnosis on the Problem List?: No Quality: Stroke Does the patient have a stroke diagnosis?: No Physical Exam Vital Signs: Vital Signs: Last Vital Signs Temp 97.3 F 12/04/24 07:09 Pulse 66 12/04/24 07:09 Resp 17 12/04/24 07:09 BP 144/63 H 12/04/24 07:09 Pulse Ox 93 12/04/24 07:09 O2 Del Method Room Air 12/04/24 07:09 BMI result Body Mass Index 29.8 General: AO X 3, no acute distress Resp: CTA bilateral, no accessory muscles used CVS: S1,S2,RRR GI: soft, non tender, non distended Neuro: motor grossly intact, alert Psych: appropriate affect, appropriate insight DS: Data Data Completed and Pending Completed studies during hospitalization [Text1]: Procedures Excision of Stomach, Pylorus, Via Natural or Artificial Opening Endoscopic, Diagnostic (08/26/24) Insertion of Infusion Device into Superior Vena Cava, Percutaneous Approach (07/11/21) Insertion of Tunneled Vascular Access Device into Chest Subcutaneous Tissue and Fascia, Percutaneous Approach (07/11/21) Inspection of Lower Intestinal Tract, Via Natural or Artificial Opening Endoscopic (02/09/23) Inspection of Upper Intestinal Tract, Via Natural or Artificial Opening Endoscopic (02/09/23) Performance of Urinary Filtration, Intermittent, Less than 6 Hours Per Day (10/10/24) Transfusion of Nonautologous Red Blood Cells into Peripheral Vein, Percutaneous Approach (08/26/24) Labs on day of discharge: Laboratory Results - last 24 hr 12/03/24 12/03/24 12/04/24 18:02 21:06 03:20 WBC RBC Hgb Hct MCV MCH MCHC RDW Plt Count MPV Absolute Nucleated RBC Nucleated RBC % (auto) Sodium Potassium Chloride Carbon Dioxide Anion Gap BUN Creatinine Estim Creat Clear Calc Estimated GFR POC Glucose 65 99 53 L* Random Glucose Calcium 12/04/24 12/04/24 12/04/24 03:57 06:46 09:43 WBC 5.4 RBC 3.14 L Hgb 9.5 L Hct 29.5 L MCV 93.9 MCH 30.3 MCHC 32.2 RDW 15.7 Plt Count 213 MPV 10.2 Absolute Nucleated RBC 0.000 Nucleated RBC % (auto) 0.0 Sodium 140 Potassium 4.3 Chloride 98 Carbon Dioxide 30 H Anion Gap 16 BUN 19 H Creatinine 4.73 H* Estim Creat Clear Calc 6.7 Estimated GFR 9 POC Glucose 174 H 62 Random Glucose 96 Calcium 9.3 12/04/24 10:19 WBC RBC Hgb Hct MCV MCH MCHC RDW Plt Count MPV Absolute Nucleated RBC Nucleated RBC % (auto) Sodium Potassium Chloride Carbon Dioxide Anion Gap BUN Creatinine Estim Creat Clear Calc Estimated GFR POC Glucose 192 H Random Glucose Calcium Discharge Plan Discharge Anticipated Discharge Date/Time: 12/04/24 10:56 Patient Disposition: Home, Self-Care Discharge Diagnosis: anemia Referrals: Patricia Ingram MD [Primary Care Provider] - 1 Week Discharge Medications: Continued amlodipine 10 mg tablet 10 mg PO DAILY 90 Days Qty: 90 3RF atorvastatin 80 mg tablet 80 mg PO BEDTIME Qty: 90 3RF aspirin 81 mg tablet,delayed release (DR/EC) 81 mg PO DAILY 90 Days Qty: 90 0RF hydralazine 25 mg tablet 25 mg PO TID Qty: 90 5RF ascorbic acid (vitamin C) [Vitamin C] 500 mg tablet 1 tab PO DAILY montelukast 10 mg tablet 10 mg PO BEDTIME budesonide-formoterol [Symbicort] 80-4.5 mcg/actuation HFA aerosol inhaler 2 puff inhalation BID acetaminophen 500 mg tablet 1,000 mg PO Q8H PRN (Reason: Pain) sennosides [senna] 8.6 mg tablet 17.2 mg PO BEDTIME PRN (Reason: Constipation) Rx Instructions: HOLD FOR WATERY DIARRHEA polyethylene glycol 3350 17 gram/dose powder 17 g PO BID PRN (Reason: Constipation) insulin aspart U-100 [Novolog FlexPen U-100 Insulin] 100 unit/mL (3 mL) insulin pen See Protocol subcut BIDAC Protocol: Insulin Correction Scale Less than or equal to 110 ---- Give (units): 0 111 to 150 Give (units): 3 151 to 200 Give (units): 5 201 to 250 Give (units): 7 251 to 300 Give (units): 9 301 to 350 Give (units): 11 Greater than 350 Give (units): 13 Call MD if Blood Glucose > : 399 diclofenac sodium 1 % gel 1 g topical TID PRN (Reason: pain) insulin aspart U-100 [Novolog FlexPen U-100 Insulin] 100 unit/mL (3 mL) insulin pen 3 unit subcut DAILY@1200 calcitriol 0.25 mcg capsule 0.75 mcg PO TUTHSA cinacalcet 30 mg tablet 30 mg PO DAILY sevelamer carbonate 800 mg tablet 800 mg PO TIDWM@0800,1200,1700 insulin glargine [Lantus Solostar U-100 Insulin] 100 unit/mL (3 mL) insulin pen 8 unit subcut DAILY insulin glargine [Lantus U-100 Insulin] 100 unit/mL Solution 7 unit SUBCUT BEDTIME docusate sodium 100 mg Capsule 100 mg PO BID PRN (Reason: Constipation) ezetimibe 10 mg tablet 10 mg PO DAILY melatonin 5 mg Tablet 5 mg PO BEDTIME PRN (Reason: Insomnia) carvedilol 3.125 mg Tablet 3.125 mg PO BID Rx Instructions: must administer with a meal/food Brilinta 90 mg Tablet 90 mg PO BID pantoprazole 40 mg tablet,delayed release (DR/EC) 40 mg PO DAILY@0630 sertraline 100 mg tablet 150 mg PO DAILY furosemide 40 mg tablet 80 mg PO BID Qty: 240 2RF isosorbide mononitrate 30 mg tablet extended release 24 hr 30 mg PO DAILY cholecalciferol (vitamin D3) 25 mcg (1,000 unit) tablet 25 mcg PO DAILY Discharge Orders: Discharge Order (Routine); Ordered 12/04/24 Ordered By: Brad Mccarthy Diet: Advance to usual diet Activity on Discharge: As tolerated Stand Alone Forms: Patient Portal Discharge page Print Language: Armenian Care Plan Goals: recovery Health Concerns: anemia Plan of Treatment: follow up with nephro and gi Assessment: see above
[2024-12-04 11:16] VITALS: BP 141/62; PULSE 65; RESP 18; TEMP 36.6; O2SAT 94
[2024-12-04] MEDS: Sevelamer Carbonate Tablet 800 MG TABLET PO ×2 (11:59→17:16)
--- NOTE | 2024-12-04 12:47 | MHC.CM.PN ---
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
[2024-12-04 15:27] LABS: Glucose, Whole Blood 187 mg/dL (60-115)
[2024-12-04 15:32] VITALS: BP 104/51; PULSE 64; RESP 18; TEMP 36.2; O2SAT 94
--- NOTE | 2024-12-04 18:32 | PM.CNNEP ---
History of Present Illness Reason for Consult Consult date: 12/03/24 Chief Complaint Chief complaint: dizziness History of Present Illness Narrative: RTANE consulted for HD management Adm with symptomatic anemia and GIB [facility] HD TTS PT poor historian and info obtained from EHR Review of Systems Review of Systems Yes all other systems are reviewed and are negative Constitutional: Reports fatigue and Reports malaise Reports dizziness Cardiovascular: Reports no additional cardiovascular complaints Respiratory: Reports no additional respiratory complaints Gastrointestinal: Reports melena Reports dizziness Endocrine: Reports fatigue PMFSH Past Medical History 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 End stage chronic kidney disease Edema Atherosclerotic cardiovascular disease SHELIA (obstructive sleep apnea) Hypercalcemia Asthma DJD (degenerative joint disease) Chronic kidney disease Other and unspecified hyperlipidemia Type 2 diabetes mellitus with unspecified complications Essential hypertension Family History Family History Father Cardiovascular disease Hypertension Mother Cardiovascular disease Hypertension Surgical History Surgical History History of hemorrhoidectomy (01/30/23) H/O colonoscopy Hemorrhoids H/O angioplasty History of tubal ligation History of coronary artery bypass graft (~2017) Social History Social History Household Members: Other Household Members Other:: Son Housing: Apartment Housing Other:: senior apartment Are you a primary early breastfeeding care specialist to a significant other at home: No Do you presently have visiting nurse or other home services: Yes ([employer], [facility]) Alcohol intake: never Patient Tobacco Use Status: Never used Tobacco Second Hand Smoke Exposure: No Advance Directives Date on File: 12/03/20 service: No 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al status: disabled 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 Meds Allergies Allergy/AdvReac Type Severity Reaction Status Date / Time No Known Allergies Allergy Verified 12/02/24 18:58 Home Medications ?Medication ?Instructions ?Recorded ?Confirmed ?Last Taken ?Type sertraline 100 mg tablet 150 mg PO DAILY 06/10/20 12/02/24 11/28/21 History ascorbic acid (vitamin C) 500 mg 1 tab PO DAILY 12/03/20 12/02/24 11/28/21 History tablet (Vitamin C) montelukast 10 mg tablet 10 mg PO BEDTIME 12/03/20 12/02/24 11/28/21 History insulin glargine 100 unit/mL (3 8 unit subcut DAILY 01/25/23 12/02/24 Unknown History mL) subcutaneous pen (Lantus Solostar U-100 Insulin) sevelamer carbonate 800 mg tablet 800 mg PO TIDWM@0800,1200,1700 01/25/23 12/02/24 Unknown History acetaminophen 500 mg tablet 1,000 mg PO Q8H PRN Pain 02/08/23 12/02/24 Unknown History budesonide-formoterol HFA 80 2 puff inhalation BID 02/08/23 12/02/24 Unknown History mcg-4.5 mcg/actuation aerosol inhaler (Symbicort) cholecalciferol (vitamin D3) 25 25 mcg PO DAILY 01/01/24 12/02/24 Unknown History mcg (1,000 unit) tablet carvedilol 3.125 mg tablet 3.125 mg PO BID 08/13/24 12/02/24 Unknown History docusate sodium 100 mg capsule 100 mg PO BID PRN Constipation 08/13/24 12/02/24 Unknown History ezetimibe 10 mg tablet 10 mg PO DAILY 08/13/24 12/02/24 Unknown History insulin glargine 100 unit/mL 7 unit subcut BEDTIME 08/13/24 12/02/24 Unknown History subcutaneous solution (Lantus U-100 Insulin) melatonin 5 mg tablet 5 mg PO BEDTIME PRN Insomnia 08/13/24 12/02/24 Unknown History ticagrelor 90 mg tablet (Brilinta) 90 mg PO BID 08/13/24 12/02/24 Unknown History calcitriol 0.25 mcg capsule 0.75 mcg PO TUTHSA 08/26/24 12/02/24 Unknown History cinacalcet 30 mg tablet 30 mg PO DAILY 08/26/24 12/02/24 Unknown History diclofenac sodium 1 % topical gel 1 g topical TID PRN pain 08/26/24 12/02/24 Unknown History insulin aspart U-100 100 unit/mL 3 unit subcut DAILY@1200 08/26/24 12/02/24 Unknown History (3 mL) subcutaneous pen (Novolog FlexPen U-100 Insulin aspart) insulin aspart U-100 100 unit/mL See Protocol subcut BIDAC 08/26/24 12/02/24 Unknown History (3 mL) subcutaneous pen (Novolog FlexPen U-100 Insulin aspart) polyethylene glycol 3350 17 17 g PO BID PRN Constipation 08/26/24 12/02/24 Unknown History gram/dose oral powder sennosides 8.6 mg tablet (senna) 17.2 mg PO BEDTIME PRN Constipation 08/26/24 12/02/24 Unknown History isosorbide mononitrate 30 mg 30 mg PO DAILY 10/02/24 12/02/24 Unknown History tablet,extended release 24 hr pantoprazole 40 mg tablet,delayed 40 mg PO DAILY@0630 10/10/24 12/02/24 Unknown History release Physical Exam Vital Signs: Last Vital Signs Temp 97.1 F 12/04/24 15:32 Pulse 64 12/04/24 15:32 Resp 18 12/04/24 15:32 BP 104/51 L 12/04/24 15:32 Pulse Ox 94 12/04/24 15:32 O2 Del Method Room Air 12/04/24 15:32 BMI result Body Mass Index 29.8 Results Lab Results 12/04/24 06:46 12/04/24 06:46 Lab results: Chemistry 12/02/24 12/03/24 12/04/24 19:15 04:01 06:46 Sodium 142 144 140 Potassium 4.8 4.1 4.3 Carbon Dioxide 29 27 30 H BUN 38 H 39 H 19 H Creatinine 6.63 H* 6.67 H* 4.73 H* Calcium 9.7 9.6 9.3 Hematology 12/02/24 12/03/24 12/04/24 19:15 04:01 06:46 WBC 4.4 L 6.0 5.4 Hgb 7.5 L 8.5 L 9.5 L Plt Count 192 188 213 Assessment and Plan (1) Depression with anxiety: Status: Acute Plan 69F PMH CAD, esrd on HD with RTANE, pud, htn, hld, dm, mood disorder presented with anemia and weakness ESRD TTS [facility] Anemia: GI w/u; xfuse to keep Hb > 7.0 REC: cont HD TTS, DDAVP if active bleed, GI cinsult Willl follow w team Procedures Date of Service Date of Service: 12/04/24
== END 2024-12-04 18:17 | disposition home or self-care (01) | DRG 811 ==
LOC: HO.ED 19:19 → HO.EDOVER 21:19 → HO.IMC 12-03 20:05
PROVIDERS: Physician Assistant; Admitting Provider Student in an Organized Health Care Education/Training Program; Emergency Provider Internal Medicine; PCP Family Medicine; Visit Provider Internal Medicine
DX: D62 Acute posthemorrhagic anemia (principal); N18.6 End stage renal disease; I13.0 Hypertensive heart and chronic kidney disease with heart failure and stage 1 through stage 4 chronic kidney disease, or unspecified chronic kidney disease; I50.32 Chronic diastolic (congestive) heart failure; I25.10 Atherosclerotic heart disease of native coronary artery without angina pectoris; E11.65 Type 2 diabetes mellitus with hyperglycemia; E11.22 Type 2 diabetes mellitus with diabetic chronic kidney disease; D63.1 Anemia in chronic kidney disease; Z95.5 Presence of coronary angioplasty implant and graft; Z99.2 Dependence on renal dialysis; Z79.4 Long term (current) use of insulin; Z79.82 Long term (current) use of aspirin; Z79.899 Other long term (current) drug therapy
CPT/HCPCS: 36415; 71045; 80048; 80053; 82272; 82607; 82728; 82746; 82947; 83540; 84443; 85025; 85027; 85045; 85610; 85730; 86481; 86850; 86900; 86901; 86923; 90999; 93005; 99212; 99285; J1938; J2405; J2470; J3410; P9016

== ENCOUNTER 2024-12-02 20:43 | Outpatient (BNV) | payer OTHER, SELFPAY | END 2024-12-02 20:55 | PROVIDERS: Admitting Provider Student in an Organized Health Care Education/Training Program; Emergency Provider Internal Medicine; PCP Family Medicine; Visit Provider Student in an Organized Health Care Education/Training Program | DX: R06.00 Dyspnea, unspecified (principal); I51.7 Cardiomegaly | CPT/HCPCS: 71045 ==

== ENCOUNTER 2024-12-02 20:43 | Outpatient (BNV) | payer OTHER, SELFPAY | END 2024-12-02 20:56 | PROVIDERS: Admitting Provider Student in an Organized Health Care Education/Training Program; Emergency Provider Internal Medicine; PCP Family Medicine; Visit Provider Internal Medicine | DX: I25.2 Old myocardial infarction (principal) | CPT/HCPCS: 93010 ==

== ENCOUNTER → 2024-12-02 20:43 | Outpatient (BNV) | payer OTHER, SELFPAY | PROVIDERS: Admitting Provider Student in an Organized Health Care Education/Training Program; Emergency Provider Internal Medicine; PCP Family Medicine; Visit Provider Student in an Organized Health Care Education/Training Program | DX: F41.8 Other specified anxiety disorders (principal) | CPT/HCPCS: 99222; 99232; 99239 ==

== ENCOUNTER → 2024-12-09 13:00 | Outpatient (BNV) | payer OTHER, SELFPAY | PROVIDERS: PCP Family Medicine; Visit Provider Internal Medicine | DX: R92.1 Mammographic calcification found on diagnostic imaging of breast (principal); R92.323 Mammographic fibroglandular density, bilateral breasts | CPT/HCPCS: 77066; G0279 ==

== ENCOUNTER 2024-12-09 13:14 | Outpatient (REF) | payer OTHER, SELFPAY ==
--- NOTE | ~2024-12-09 | MM_ITS ---
EXAMINATION: MM DIAGNOSTIC DIGITAL BREAST TOMOSYNTHESIS, BILATERAL CLINICAL INFORMATION: 1 year follow-up for grouped calcifications in the upper outer quadrant. COMPARISON: Mammography: Comparison is made with relevant prior exams. TECHNIQUE: Digital breast mammography with tomosynthesis is performed in both the craniocaudal and mediolateral oblique views along with computer-aided detection (CAD). FINDINGS: There are scattered areas of fibroglandular density (ACR BI-RADS breast composition Category b). Left: Grouped punctate round calcifications in the upper outer left breast are not significantly changed from prior magnification views dating back for one year. No suspicious masses or other abnormal findings. Right: No suspicious masses calcifications or other abnormal findings. Bilateral circumscribed oval masses which wax and wane consistent with benign fibrocystic changes. Results are provided to the patient at time of visit by the technologist. MM/MM tomosynthesis diagnostic BI IMPRESSION: Right: Negative. Left: Grouped calcifications in the upper outer quadrant are not significantly changed from prior magnification views dating back for one year. Recommend one-year follow-up for further evaluation of stability. ASSESSMENT: BI-RADS BI-RADS 3 - Probably benign finding(s) - 12 month follow-up suggested RECOMMENDATION: 12 month diagnostic follow up This patient's information was entered into a reminder system with a target due date for their next mammogram. Electronically signed by: Padma Coronel DO 12/09/2024 01:53 PM EDT
--- OUTSIDE RECORDS SUMMARY | 2024-12-09 13:31 | XMS_ITS ---
Author Organization [facility] Address [address] [place] [address] Care Team Providers Care Internet Designer Name Role Phone Juan Jose DELGADILLO, Patricia Primary Care Provider Brandt Collazo Jr REASON FOR VISIT anemia, heme positive stools ( in pt) Encounters Encounter Location Date Provider Diagnosis [facility] [place] [address] [place], [place] [phone] 12/04/2024 Brandt Villegas Jr Plan Of Treatment No Information Progress Notes * GALILEOLUISA CARLDOB:1955 (69 yo F)Acc No.[id number]:12/04/2024 COLON WITH MAC Patient:?LYRIC HASSANLEE Provider:?Brandt Villegas MD :1955???Age:69 Y???Sex:Female D ate:12/04/2024 Address:[address] [place], [place] [phone] Pcp:Patricia Ingram MD Subjective: * Chief Complaints: * ???1. Anemia, heme positive stools ( in pt). * Medical History:? Objective: * Vitals:? Assessment: Plan: * Treatment: * * The named appointment provid er may or may not be the originator of this progress note, and it is not deemed complete until electronically signed by the appointment provider. Sign off status: Pending * Provider:?Brandt Villegas MD Date:?0 12/04/2024 Generated for Dia davis/Glynn/eTransmitting on:?12/09/2024 01:31 PM EDT
--- OUTSIDE RECORDS SUMMARY | 2024-12-09 13:31 | XMS_ITS | Encounter Summary ---
Author Organization [facility] Address [address] [facility] [address] [place] [address] Phone Care Team Providers Care General Dentist Name Role Phone Patricia Ingram MD Primary Care Provider [phone] Reason for Visit * Reason Comments Med Refill Encounter Details Date Type Department Care Team (Late st Contact Info) Description 11/08/2022 Refill [facility] [address] [place] [address] Feliciano Baldwin MD Social History Tobacco [...] on filedocumented in this encounter Care Teams General Dentist Relationship Specialty Start Date End Date Patricia Ingram MD [address] [place] [address] PCP - General 08/10/20 documented as of this encounter
--- OUTSIDE RECORDS SUMMARY | 2024-12-09 13:31 | XMS_ITS | Encounter Summary ---
Author Organization [facility] Address [address] [facility] [address] [place] [address] Care Team Providers Care Treasury Director Name Role Phone Patricia Ingram MD Primary Care Provider [phone] Encounter Details Date Type Department Care Team (Latest Contact Info) Description 04/02/2024 Treatment Richard Alexander MD [address] [facility] [address] [place] [address] Social History Tobacco Use Types [...] disease. Attending Fastener Sewing Machine Operator: RICHARD ALEXANDER MD Dialysis Location: [facility] Schedule: Shift: 2 OVERVIEW Patient is stable. HOME MEDICATIONS Medications reviewed. Current [facility] Outpatient Medications ACETAMINOPHEN EXTRA STRENGTH 500 [...] EXT - No ulcers. Signed by: Richard lAexander on 04/02/2024 at 09:09:12 PM Transcribed by: Richard Alexander on 04/02/2024 at 09:09:12 PM documented in this encounter Plan of Treatment Not on file documented as of this encounter Visit Diagnoses Not on filedocumented in this encounter Care Teams Treasury Director Relationship Specialty Start Date End Date Patricia Ingram MD [address] [place] [address] PCP - General 08/10/20 documented as of this encounter
--- OUTSIDE RECORDS SUMMARY | 2024-12-09 13:31 | XMS_ITS | Encounter Summary ---
Author Organization [facility] Address [address] [facility] [address] [place] [address] Phone Care Team Providers Care Tool And Cutter Grinder Name Role Phone Patricia Ingram MD Primary Care Provider [phone] Reason for Visit * Reason Comments Med Refill Encounter Details Date Type Department Care Team ([facility] st Contact Info) Description 09/07/2021 Refill [facility] [address] [place] [phone] Yared Powell MD [address] [facility] [address] [place] [phone] Social History Tobacco Use Types Packs/Day Years [...] on filedocumented in this encounter Care Teams Tool And Cutter Grinder Relationship Specialty Start Date End Date Patricia Ingram MD [address] [place] [address] PCP - General 08/10/20 documented as of this encounter
--- OUTSIDE RECORDS SUMMARY | 2024-12-09 13:31 | XMS_ITS | Encounter Summary ---
Author Organization [facility] Address [address] [facility] [address] [place] [address] Phone Care Team Providers Care Sole Trimmer Name Role Phone Patricia Ingram MD Primary Care Provider [phone] Reason for Visit * Reason Comments Med Refill Encounter Details Date Type Department Care Team (Late st Contact Info) Description 09/07/2022 Refill [facility] [address] [place] [address] Kentrell Leos MD Social History Tobacco [...] on filedocumented in this encounter Care Teams Sole Trimmer Relationship Specialty Start Date End Date Patricia Ingram MD [address] [place] [address] PCP - General 08/10/20 documented as of this encounter
--- OUTSIDE RECORDS SUMMARY | 2024-12-09 13:31 | XMS_ITS | Encounter Summary ---
Author Organization [facility] Address [address] [facility] [address] [place] [address] Phone Care Team Providers Care Csm Consultant Name Role Phone Patricia Ingram MD Primary Care Provider [phone] Reason for Visit * Reason Comments Med Refill Encounter Details Date Type Department Care Team ([facility] st Contact Info) Description 04/29/2021 Refill [facility] [address] [place] [phone] Yared Powell MD [address] [facility] [address] [place] [phone] Social History Tobacco Use Types Packs/Day Years [...] on filedocumented in this encounter Care Teams Csm Consultant Relationship Specialty Start Date End Date Patricia Ingram MD [address] [place] [address] PCP - General 08/10/20 documented as of this encounter
--- OUTSIDE RECORDS SUMMARY | 2024-12-09 13:31 | XMS_ITS ---
Author Organization [facility] Address [address] [place] [address] Care Team Providers Care Proposal Development Manager Name Role Phone Juan Jose DELGADILLO, Patricia Primary Care Provider Bradford Villegas Jr, Brandt Lyle [phone] REASON FOR VISIT colonoscopy ( in pt) Encounters Encounter Location Date Provider Diagnosis [facility] [address] [place] [address] 12/04/2024 Brandt Villegas Jr Plan Of Treatment No Information Progress Notes * CARL HASSANDOB:1955 (69 yo F)Acc No.[id number]:12/04/2024 Patient:?CARL HASSAN :1955???Age:69 Y???Sex:Female Address:[address] [place] [address] [address], [place], [address] * true * Date:? Generated for Dia davis/Glynn/eTransmitting on:?12/09/2024 01:31 PM EDT
--- OUTSIDE RECORDS SUMMARY | 2024-12-09 13:31 | XMS_ITS | Encounter Summary ---
Author Organization [facility] Address [address] [facility] [address] [place] [address] Phone Care Team Providers Care Black Off Worker Name Role Phone Patricia Ingram MD Primary Care Provider [phone] Encounter Details Date Type Department Care Team (Late st Contact Info) Description 12/21/2020 Orders Only [facility] [address] [place] [phone] Yared Powell MD [address] [facility] [address] [place] [phone] Nephrotic range proteinuria; 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
--- OUTSIDE RECORDS SUMMARY | 2024-12-09 13:31 | XMS_ITS | Patient Health Record ---
Author Organization [facility] bradley Bonn[facility] Address [address] [place] [address] Care Team Providers Care Aging Box Hand Name Role Phone Juan Jose DELGADILLO, Patricia Primary Care Provider Bradford Villegas Jr, Brandt Unavailable [phone] Results Component Value Reference Range Notes Type and Screen Reviewed date:08/29/2024 10:35:21 AM Interpretation: Performing Lab:[facility], [address] [place] [phone] Notes/Report: Results at Issue Units as of 08/26/24 0456 ... Test View Group: Most Recent HGB HCT Results LABORATORY Date Time Test Result Flag Normal Range 08/26/24 1100 HGB PENDING RECEIPT 12.0-16.0 g/dl 08/26/24 0204 HGB 6.0 #*L 12.0-16.0 g/dl Results of HGB called to and read back by [employer] on 08/26/24 at 0222 by TERRENCE. 08/26/24 [...] Cells Reviewed date:08/29/2024 10:35:28 AM Interpretation: Performing Lab:[facility], [address] [place] [phone] Notes/Report: Red Blood Cells [id number] OP RC Red Blood Cells NOT AVAILABLE Red Blood Cells [id number] OP RC Red Blood Cells TRANSFUSED 08/26/24 0454 Red Blood Cells [id number] BP RC Red Blood Cells TRANSFUSED 08/26/24 1500 Complete Blood Count no Diff Reviewed date:08/28/2024 07:49:19 AM Interpretation: Performing Lab:[facility], [address] [place] [phone] Notes/Report: White Blood Count 5.1 4.8-10.8 X10*3/uL [...] Pathology Reviewed date:09/04/2024 08:03:17 AM Interpretation: Performing Lab:[facility], [address] [place] [phone] Notes/Report: -- Name: SonyaKavitha Age/Sex: 69/F : 1955 Unit#: [id number] Attend Dr: Romina Fortune MD Re08/26/24 Status : DIS IN Location: [facility] 483-1 Disch: 08/29/24 -- SPEC : [id number] RECD: 08/29/24 STATUS: JERRY PATRICK NUM: [id number] JOSE ALFREDO: 08/28/24-[address] [facility] DR: Brandt Villegas MD ENTERED: [...] copic examination, 2 pieces in cassette A. [facility] Special stains order ed and performed: A/B PAS on A; immunostain for H pylori on A. Copies To: Brandt Villegas MD [address] [place] [address] Romina Fortune MD [address] [place] [address] CONTINUED ON NEXT PAGE -- Name: Kavitha Hassan Age/Sex: 69/F : 1955 Unit#: [id number] Attend Dr: Romina Fortune MD Re08/26/24 Status : DIS IN Location: [facility] 483-1 Disch: 08/29/24 -- SPEC : [id number] RECD: 08/29/24-0829 STATUS: JERRY PATRICK NUM: [id number] JOSE ALFREDO: 08/28/24-[address] [facility] DR: Brandt Villegas MD ENTERED: 08/29/24-08 49 SP TYPE: Surgical OTHR DR: Romina Fortune MD, Nao MD ORDERED: HE Stain/3, Gross Micro L4, IHC, Special st. 2, H. pylori, AB/PAS Copies To: (Continued) Patricia Ingram MD [address] [address] -- Signed (si gnature on file) Luci Alvarado MD 08/30/24 1615 -- END OF REPORT Reason For Referral [...] Active Encounters Encounter Location Date Provider Diagnosis [facility] [address], [place] [phone] 08/28/2024 Brandt Villegas Jr [facility] [address] [place] [address] 09/04/2024 Brandt Villegas Jr [facility] [address] [place] [address] 12/04/2024 Brandt Villegas Jr [facility] [address] [place] [phone] 12/04/2024 Brandt Villegas Jr Plan Of Treatment No Information Insurance Providers Payer Name Payer Address Payer Phone Subscriber Number Group Number Insured Name Patient Relationship to Insured Coverage Start Date Coverage End Date [facility] [address] Attn Claims [place] [address] [id number] KAVITHA HASSAN Self - patient is the insured
--- OUTSIDE RECORDS SUMMARY | 2024-12-09 13:32 | XMS_ITS ---
Author Organization [facility] Address [address] [place] [phone] Care Team Providers Care Hospital Education Coordinator Name Role Phone Juan Jose DELGADILLO, Patricia Primary Care Provider Bradford Villegas Jr, Brandt Lyle [phone] Encounters Encounter Location Date Provider Diagnosis [facility] [address] [place] [phone] 12/04/2024 Brandt Villegas Jr Plan Of Treatment No Information Progress Notes * CARL HASSANDOB:1955 (69 yo F)Acc No.[id number]:12/04/2024 Patient:?CARL HASSAN :1955???Age:69 Y???Sex:Female Address:[address] [place] [address] [address], [place], [address] * true * Date:? Generated for Dia davis/Glynn/eTransmitting on:?12/09/2024 01:31 PM EDT
--- OUTSIDE RECORDS SUMMARY | 2024-12-09 13:32 | XMS_ITS | Encounter Summary ---
Author Organization [facility] Address [address] [facility] [address] [place] [address] Phone Care Team Providers Care Appraiser [employer] Name Role Phone Patricia Ingram MD Primary Care Provider [phone] Encounter Details Date Type Department Care Team ([facility] st Contact Info) Description 12/05/2024 Orders Only [facility] [address] [address] Driss Alatorre MD [address] [address] Social History Tobacco Use Types [...] Procedure Name Priority Date/Time Associated Diagnosis Comments LIH () Routine 12/05/2024 3:00 AM EDT KT/V NATURAL LOG, URR () Routine 12/05/2024 3:00 AM EDT CALCIUM PHOSPHORUS PRODUCT, ADJUSTED () Routine 12/05/2024 3:00 AM EDT BUN/CREATININE RATIO Routine 12/05/2024 3:00 AM EDT TRANSFERRIN SATURATION Routine 3:00 AM EDT CBC AND DIFFERENTIAL Routine 12/05/2024 3:00 AM EDT ALT Routine 12/05/2024 3:00 AM EDT AST Routine 12/05/2024 3:00 AM EDT PROTEIN, TOTAL, SERUM Routine 12/05/2024 3:00 AM EDT ALKALINE PHOSPHATASE Routine 12/05/2024 3:00 AM EDT PTH, INTACT Routine 12/05/2024 3:00 AM EDT MAGNESIUM Routine 12/05/2024 3:00 AM EDT LACTATE DEHYDROGENASE Routine 12/05/2024 3:00 AM EDT GLUCOSE, RANDOM Routine 12/05/2024 3:00 AM EDT FERRITIN Routine 12/05/2024 3:00 AM EDT CREATININE, SERUM Routine 12/05/2024 3:0 0 AM EDT BILIRUBIN, TOTAL Routine 12/05/2024 3:00 AM EDT ELECTROLYTE PANEL Routine 12/05/2024 3:0 0 AM EDT documented in this encounter Results * (ABNORMAL) PTH, Intact (12/05/2024 3:00 AM EDT) PTH, Intact 1,267(H) 160 - 721 pg/mL [facility] Comment: Suggested (KDIGO) ESRD maintenance range is two to nine times the upper normal limit (80.1 pg/mL) for the laboratory. 12/05/2024 3:00 AM EDT 12/06/2024 2:05 PM EDT us Driss Alatorre MD LAB BLOOD ORDERABLES Final Resul t Performing Organization Address City/[facility] Co de Phone Number [facility] [address] [place] [address] * (ABNORMAL) Ferritin (12/05/2024 3:00 AM EDT) Ferritin 1,234(H) 10 - 291 ng/mL [facility] 12/05/2024 3:00 AM EDT 12/06/2024 2:05 PM EDT us Driss Alatorre MD LAB BLOOD ORDERABLES Final Resul t Performing Organization Address [facility] de Phone Number [facility] [address] [place] [address] * (ABNORMAL) TSAT (12/05/2024 3:00 AM EDT) Iron 28(L) 50 - 170 ug/dL [facility] Transferrin 120(L) 250 - 380 mg/dL [facility] TIBC 168(L) 211 - 406 ug/dL [facility] Iron Saturation (TSat) 17(L) 22 - 52 % [facility] 12/05/2024 3:00 AM EDT 12/06/2024 2:05 PM EDT us Driss Alatorre MD LAB BLOOD ORDERABLES Final Resul t Performing Organization Address [facility] de Phone Number [facility] [address] [place] [address] * (ABNORMAL) Electrolyte panel (12/05/2024 3:00 AM EDT) Sodium 136 136 - 145 mEq/L [facility] Potassium 4.4 3.4 - 5.0 mEq/L [facility] Chloride 97(L) 98 - 107 mEq/L [facility] Bicarbonate (CO2) 26 21 - 31 mEq/L [facility] Anion Gap 13 3 - 14 mEq/L [facility] 12/05/2024 3:00 AM EDT 12/06/2024 2:05 PM EDT us Driss Alatorre MD LAB BLOOD ORDERABLES Final Resul t Performing Organization Address [facility] Co de Phone Number [facility] [address] [place] [address] * Protein, total (12/05/2024 3:00 AM EDT) Total Protein 6.9 6.4 - 8.9 g/dL [facility] 12/05/2024 3:00 AM EDT 12/06/2024 2:05 PM EDT us Driss Alatorre MD LAB BLOOD ORDERABLES Final Resul t Performing Organization Address [facility] de Phone Number [facility] [address] [place] [address] * Magnesium (12/05/2024 3:00 AM EDT) Magnesium 2.3 1.9 - 2.7 mg/dL [facility] 12/05/2024 3:00 AM EDT 12/06/2024 2:05 PM EDT us Driss Alatorre MD LAB BLOOD ORDERABLES Final Resul t Performing Organization Address [facility] Co de Phone Number [facility] [address] [place] [address] * Lactate dehydrogenase (12/05/2024 3:00 AM EDT) LDH 220 120 - 246 U/L [facility] 12/05/2024 3:00 AM EDT 12/06/2024 2:05 PM EDT us Driss Alatorre MD LAB BLOOD ORDERABLES Final Resul t Performing Organization Address [facility] Co de Phone Number [facility] [address] [place] [address] * LIH (12/05/2024 3:00 AM EDT) Lipemia Normal Normal [facility] Icterus Normal Normal [facility] Hemolysis Normal Normal [facility] 12/05/2024 3:00 AM EDT 12/06/2024 2:05 PM EDT us Driss Alatorre MD LAB [id number] ICITED RESULTS Final Result Performing Organization Address [facility] de Phone Number [facility] [address] [place] [address] * (ABNORMAL) Glucose, random (12/05/2024 3:00 AM EDT) Glucose 192(H) 70 - 99 mg/dL [facility] Comment: ADA guidelines outline the following fasting glucose ranges: Normal: ? <100 Prediabetes: 100-125 Diabetes: ? >125 12/05/2024 3:00 AM EDT 12/06/2024 2:05 PM EDT us Driss Alatorre MD LAB BLOOD ORDERABLES Final Resul t Performing Organization Address [facility] de Phone Number [facility] [address] [place] [address] * (ABNORMAL) Creatinine, serum (12/05/2024 3:00 AM EDT) Creatinine 6.57(H) 0.55 - 1.02 mg/dL [facility] 12/05/2024 3:00 AM EDT 12/06/2024 2:05 PM EDT us Driss Alatorre MD LAB BLOOD ORDERABLES Final Resul t Performing Organization Address [facility] de Phone Number [facility] [address] [place] [address] * AST (12/05/2024 3:00 AM EDT) AST (SGOT) 10 <34 U/L [facility] 12/05/2024 3:00 AM EDT 12/06/2024 2:05 PM EDT us Driss Alatorre MD LAB BLOOD ORDERABLES Final Resul t Performing Organization Address [facility] Co de Phone Number [facility] [address] [place] [address] * BUN/CREATININE RATIO (12/05/2024 3:00 AM EDT) BUN/Creatinine Ratio 5.2 <=23.0 [facility] 12/05/2024 3:00 AM EDT 12/06/2024 2:05 PM EDT us Driss Alatorre MD LAB [id number] ICITED RESULTS Final Result Performing Organization Address [facility] de Phone Number [facility] [address] [place] [address] * (ABNORMAL) Bilirubin, total (12/05/2024 3:00 AM EDT) Total Bilirubin <0.2(L) 0.3 - 1.2 mg/dL [facility] 12/05/2024 3:00 AM EDT 12/06/2024 2:05 PM EDT us Driss Alatorre MD LAB BLOOD ORDERABLES Final Resul t Performing Organization Address [facility] de Phone Number [facility] [address] [place] [address] * Calcium Phosphorus Product, Adjusted (12/05/2024 3:00 AM EDT) Albumin 4.2 3.6 - 5.4 g/dL [facility] Calcium 9.2 8.6 - 10.3 mg/dL [facility] Phosphorus, Serum 4.9 2.5 - 5.0 mg/dL [facility] Ca*PO4 45.1 <55.0 mg2/dL2 [facility] Calcium, Adjusted Total 9.2 8.6 - 10.3 mg/dL [facility] CA*PO4 CORRCTD 45.1 <55.0 mg2/dL2 [facility] 12/05/2024 3:00 AM EDT 12/06/2024 2:05 PM EDT us Driss Alatorre MD LAB [id number] ICITED RESULTS Final Result Performing Organization Address [facility] de Phone Number [facility] [address] [place] [address] * (ABNORMAL) ALT (12/05/2024 3:00 AM EDT) ALT (SGPT) <7(L) 10 - 49 U/L [facility] 12/05/2024 3:00 AM EDT 12/06/2024 2:05 PM EDT us Driss Alatorre MD LAB BLOOD ORDERABLES Final Resul t Performing Organization Address [facility] de Phone Number [facility] [address] [place] [address] * (ABNORMAL) Alkaline phosphatase (12/05/2024 3:00 AM EDT) Alkaline Phosphatase 121(H) 46 - 116 U/L [facility] 12/05/2024 3:00 AM EDT 12/06/2024 2:05 PM EDT us Driss Alatorre MD LAB BLOOD ORDERABLES Final Resul t Performing Organization Address [facility] Phone Number [facility] [address] [place] [address] * (ABNORMAL) Kt/V Natural Log, URR (12/05/2024 3:00 AM EDT) Treatment Time 184 min [facility] Pre-Weight, lb 52.6 kg [facility] Post-Weight, lb 51.7 kg [facility] Ultrafiltration Rate 6 <=13 mL/kg/hr [facility] Comment: Recommend achieving Ultrafiltration Rate (UFR) <=10 mL/kg/hr References: Kendy VELÁSQUEZ et al. Kidney Int. 2010; 79(2):250-257 BUN 34(H) 7 - 25 mg/dL [facility] BUN Post Dialysis 8 7 - 25 mg/dL [facility] UREA REDUCTION RATIO (%) 76 >=65 % [facility] Kt/V Natural Log 1.61 >=1.2 [facility] 12/05/2024 3:00 AM EDT 12/06/2024 2:05 PM EDT us Driss Alatorre MD LAB [id number] ICITED RESULTS Final Result [facility] [address] [place] [address] * (ABNORMAL) CBC and Differential (12/05/2024 3:00 AM EDT) DIFFERENTIAL MANUAL, 2 Not Indicated [facility] White Blood Cells 5.2 4.0 - 10.0 K/uL [facility] RBC 2.84(L) 3.93 - 5.22 M/uL [facility] Hgb 8.6(L) 11.2 - 15.7 g/dL [facility] Hemoglobin x 3 25.8(L) 33.6 - 47.1 g/dL [facility] Hematocrit 27.7(L) 34.1 - 44.9 % [facility] MCV 97.5(H) 79.4 - 94.8 fL [facility] MCH 30.3 25.6 - 32.2 pg [facility] MCHC 31.0(L) 32.2 - 35.5 g/dL [facility] RDW 15.1(H) 11.7 - 14.4 % [facility] Platelets 226 182 - 369 K/uL [facility] Neutrophils Relative 72.3(H) 34.0 - 71.1 % [facility] Lymphocytes Relative 16.9(L) 19.3 - 51.7 % [facility] Monocytes 7.9 4.7 - 12.5 % [facility] Eosinophils Relative 2.3 0.7 - 5.8 % [facility] Basophils Relative 0.4 0.1 - 1.2 % [facility] Immature Granulocytes 0.2 0.0 - 1.0 % [facility] 12/05/2024 3:00 AM EDT 12/06/2024 2:09 PM EDT Driss Alatorre MD LAB BLOOD ORDERABLES Final Resul t [facility] [address] [place] [address] documented in this encounter Visit Diagnoses Not on filedocumented in this encounter Care Teams Appraiser [employer] Relationship Specialty Start Date End Date Patricia Ingram MD [address] [place] [id number] PCP - General 08/10/20 documented as of this encounter
--- OUTSIDE RECORDS SUMMARY | 2024-12-09 13:32 | XMS_ITS | Clinical Summary ---
Author Organization [facility] Address [address] [facility] [address] [place] [address] Phone Care Team Providers Care Hotel Night Auditor Name Role Phone Patricia Ingram MD Primary Care Provider [phone] Allergies No known active allergies Medications amLODIPine [...] Encounters Date Type Department Care Team Description 12/05/2024 Orders Only [facility] [address] [phone] Driss Alatorre MD 11/28/2024 Treatment [facility] [address] [phone] Driss Alatorre MD End stage renal disease; Dependence on renal dialysis 11/19/2024 Treatment [facility] [address] [phone] Driss Alatorre MD End stage renal disease; Dependence on renal dialysis 11/12/2024 Treatment [facility] [address] [phone] Driss Alatorre MD End stage renal disease; Dependence on renal dialysis 11/05/2024 Treatment [facility] [address] [phone] Driss Alatorre MD End stage renal disease; Dependence on renal dialysis 10/29/2024 Treatment [facility] [address] [phone] Driss Alatorre MD End stage renal disease; Dependence on renal dialysis 10/15/2024 Treatment [facility] [address] [phone] Driss Alatorre MD End stage renal disease; Dependence on renal dialysis 10/08/2024 Treatment [facility] [address] [phone] Driss Alatorre MD End stage renal disease; Dependence on renal dialysis 10/03/2024 Treatment [facility] [address] [phone] Driss Alatorre MD End stage renal disease; Dependence on renal dialysis 10/01/2024 Treatment [facility] [address] [phone] Driss Alatorre MD End stage renal disease; Dependence on renal dialysis 09/17/2024 Treatment [facility] [address] [phone] Driss Alatorre MD 09/12/2024 Treatment [facility] [address] [phone] Driss Alatorre MD from Last 3 Months [...] 10/23/2018, 04/25/2017, 05/04/2011 Diabetes: Hemoglobin A1C 01/30/2025 04 025, 08/21/2024, 08/08/2024, Additional history exists Pneumococcal Vaccine: Peds ( 0 to 5 Years) and At-Risk Patients (6 to 49 Years) Discontinued 10/23/2018, 04/25/2017, 05/04/2011 Influenza Vaccine Completed 04/17/2024, , 04/15/2020, Additional history exists Procedures Procedure Name Priority Date/Time Associated Diagnosis Comments PTH, INTACT Routine 12/05/2024 3:00 AM EDT FERRITIN Routine 12/05/2024 3:00 AM EDT TRANSFERRIN SATURATION Routine 3:00 AM EDT ELECTROLYTE PANEL Routine 12/05/2024 3:0 0 AM EDT PROTEIN, TOTAL, SERUM Routine 12/05/2024 3:00 AM EDT MAGNESIUM Routine 12/05/2024 3:00 AM EDT LACTATE DEHYDROGENASE Routine 12/05/2024 3:00 AM EDT LIH (HC) Routine 12/05/2024 3:00 AM EDT GLUCOSE, RANDOM Routine 12/05/2024 3:00 AM EDT CREATININE, SERUM Routine 12/05/2024 3:0 0 AM EDT AST Routine 12/05/2024 3:00 AM EDT BUN/CREATININE RATIO Routine 12/05/2024 3:00 AM EDT BILIRUBIN, TOTAL Routine 12/05/2024 3:00 AM EDT CALCIUM PHOSPHORUS PRODUCT, ADJUSTED (HC) Routine 12/05/2024 3:00 AM EDT ALT Routine 12/05/2024 3:00 AM EDT ALKALINE PHOSPHATASE Routine 12/05/2024 3:00 AM EDT KT/V NATURAL LOG, URR (HC) Routine 12/05/2024 3:00 AM EDT CBC AND DIFFERENTIAL Routine 12/05/2024 3:00 AM EDT HEMOGLOBIN AND HEMATOCRIT, BLOOD Routine 11/14/2024 3:00 [...] HEMATOCRIT, BLOOD Routine 09/19/2024 3:00 AM EST from Last 3 Months Results * LIH (12/05/2024 3:00 AM EDT) Only the most recent of4 resultswithin the time period is included. Lipemia Normal Normal [facility] Icterus Normal Normal [facility] Hemolysis Normal Normal [facility] 12/05/2024 3:00 AM EDT 12/06/2024 2:05 PM EDT Driss Alatorre MD LAB [id number] ICITED RESULTS Final Result Performing Organization Address [facility] Co de Phone Number [facility] [address] [place] [address] * (ABNORMAL) Kt/V Natural Log, URR (12/05/2024 3:00 AM EDT) Only the most recent of3 resultswithin the time period is included. Treatment Time 184 min [facility] Pre-Weight, lb [...] 3:00 AM EDT 12/06/2024 2:05 PM EDT Driss Alatorre MD LAB [id number] ICITED RESULTS Final Result [facility] [address] [place] [address] * Calcium Phosphorus Product, Adjusted (12/05/2024 3:00 AM EDT) Only the most recent [...] PM EDT us Driss Alatorre MD LAB [id number] ICITED RESULTS Final Result Performing Organization Address [facility] de Phone Number [facility] [address] [place] [address] * BUN/CREATININE RATIO (12/05/2024 3:00 AM EDT) BUN/Creatinine Ratio 5.2 <=23.0 [facility] 12/05/2024 3:00 AM EDT 12/06/2024 2:05 PM EDT us Driss Alatorre MD LAB [id number] ICITED RESULTS Final Result Performing Organization Address [facility] de Phone Number [facility] [address] [place] [address] * (ABNORMAL) TSAT (12/05/2024 3:00 AM EDT) Only the most recent of3 resultswithin the time period is included. Iron 28(L) 50 - 170 ug/dL [facility] Transferrin 120(L) 250 - 380 mg/dL [facility] TIBC 168(L) 211 - 406 ug/dL [facility] Iron Saturation (TSat) 17(L) 22 - 52 % [facility] 12/05/2024 3:00 AM EDT 12/06/2024 2:05 PM EDT Driss Alatorre MD LAB BLOOD ORDERABLES Final Resul t [facility] [address] [place] [address] * (ABNORMAL) CBC and Differential (12/05/2024 3:00 AM EDT) Only the most recent [...] Final Resul t [facility] [address] [place] [address] * (ABNORMAL) ALT (12/05/2024 3:00 AM EDT) Only the most recent of3 resultswithin the time period is included. ALT (SGPT) <7(L) 10 - 49 U/L [facility] 12/05/2024 3:00 AM EDT 12/06/2024 2:05 PM EDT us Driss Alatorre MD LAB BLOOD ORDERABLES Final Resul t Performing Organization Address City/[facility] Co de Phone Number [facility] [address] [place] [address] * AST (12/05/2024 3:00 AM EDT) Only the most recent of3 resultswithin the time period is included. AST (SGOT) 10 <34 U/L [facility] 12/05/2024 3:00 AM EDT 12/06/2024 2:05 PM EDT us Driss Alatorre MD LAB BLOOD ORDERABLES Final Resul t Performing Organization Address [facility] de Phone Number [facility] [address] [place] [address] * Protein, total (12/05/2024 3:00 AM EDT) Only the most recent of3 resultswithin the time period is included. Total Protein 6.9 6.4 - 8.9 g/dL [facility] 12/05/2024 3:00 AM EDT 12/06/2024 2:05 PM EDT us Driss Alatorre MD LAB BLOOD ORDERABLES Final Resul t Performing Organization Address [facility] Co de Phone Number [facility] [address] [place] [address] * (ABNORMAL) Alkaline phosphatase (12/05/2024 3:00 AM EDT) Only the most recent of3 resultswithin the time period is included. Alkaline Phosphatase 121(H) 46 - 116 U/L [facility] 12/05/2024 3:00 AM EDT 12/06/2024 2:05 PM EDT us Driss Alatorre MD LAB BLOOD ORDERABLES Final Resul t Performing Organization Address [facility] Co de Phone Number [facility] [address] [place] [address] * (ABNORMAL) PTH, Intact (12/05/2024 3:00 AM EDT) Only the most recent of3 resultswithin the time period is included. PTH, Intact 1,267(H) 160 - 721 pg/mL [facility] Comment: Suggested (KDIGO) ESRD maintenance range is two to nine times the upper normal limit (80.1 pg/mL) for the laboratory. 12/05/2024 3:0 0 AM EDT 12/06/2024 2:05 PM EDT us Driss Alatorre MD LAB BLOOD ORDERABLES Final Resul t Performing Organization Address [facility] Co de Phone Number [facility] [address] [place] [address] * Magnesium (12/05/2024 3:00 AM EDT) Only the most recent of3 resultswithin the time period is included. Magnesium 2.3 1.9 - 2.7 mg/dL [facility] 12/05/2024 3:00 AM EDT 12/06/2024 2:05 PM EDT us Driss Alatorre MD LAB BLOOD ORDERABLES Final Resul t Performing Organization Address [facility] Co de Phone Number [facility] [address] [place] [address] * Lactate dehydrogenase (12/05/2024 3:00 AM EDT) Only the most recent of3 resultswithin the time period is included. LDH 220 120 - 246 U/L [facility] 12/05/2024 3:00 AM EDT 12/06/2024 2:05 PM EDT us Driss Alatorre MD LAB BLOOD ORDERABLES Final Resul t Performing Organization Address [facility] Co de Phone Number [facility] [address] [place] [address] * (ABNORMAL) Glucose, random (12/05/2024 3:00 AM EDT) Only the most recent of3 resultswithin the time period is included. Glucose 192(H) 70 - 99 mg/dL [facility] Comment: ADA guidelines outline the following fasting glucose ranges: Normal: ? <100 Prediabetes: 100-125 Diabetes: ? >125 12/05/2024 3:00 AM EDT 12/06/2024 2:05 PM EDT us Driss Alatorre MD LAB BLOOD ORDERABLES Final Resul t Performing Organization Address [facility] Co de Phone Number [facility] [address] [place] [address] * (ABNORMAL) Ferritin (12/05/2024 3:00 AM EDT) Only the most recent of3 resultswithin the time period is included. Ferritin 1,234(H) 10 - 291 ng/mL [facility] 12/05/2024 3:00 AM EDT 12/06/2024 2:05 PM EDT us Driss Alatorre MD LAB BLOOD ORDERABLES Final Resul t Performing Organization Address [facility] Co de Phone Number [facility] [address] [place] [address] * (ABNORMAL) Creatinine, serum (12/05/2024 3:00 AM EDT) Only the most recent of3 resultswithin the time period is included. Creatinine 6.57(H) 0.55 - 1.02 mg/dL [facility] 12/05/2024 3:00 AM EDT 12/06/2024 2:05 PM EDT us Driss Alatorre MD LAB BLOOD ORDERABLES Final Resul t Performing Organization Address [facility] de Phone Number [facility] [address] [place] [address] * (ABNORMAL) Bilirubin, total (12/05/2024 3:00 AM EDT) Only the most recent of3 resultswithin the time period is included. Total Bilirubin <0.2(L) 0.3 - 1.2 mg/dL [facility] 12/05/2024 3:00 AM EDT 12/06/2024 2:05 PM EDT us Driss Alatorre MD LAB BLOOD ORDERABLES Final Resul t Performing Organization Address [facility] de Phone Number [facility] [address] [place] [address] * (ABNORMAL) Electrolyte panel (12/05/2024 3:00 AM EDT) Only the most recent of3 resultswithin the time period is included. Sodium 136 136 - 145 mEq/L [facility] Potassium 4.4 3.4 - 5.0 mEq/L [facility] Chloride 97(L) 98 - 107 mEq/L [facility] Bicarbonate (CO2) 26 21 - 31 mEq/L [facility] Anion Gap 13 3 - 14 mEq/L [facility] 12/05/2024 3:00 AM EDT 12/06/2024 2:05 PM EDT us Driss Alatorre MD LAB BLOOD ORDERABLES Final Resul t Performing Organization Address [facility] de Phone Number [facility] [address] [place] [address] * (ABNORMAL) Hemoglobin and hematocrit (11/14/2024 3:00 AM EDT) Only the most recent of3 resultswithin the time period is included. Hgb 10.5(L) 11.2 - 15.7 g/dL [facility] Hematocrit 32.4(L) 34.1 - 44.9 % [facility] Hemoglobin x 3 31.5(L) 33.6 - 47.1 g/dL [facility] 11/14/2024 3:00 AM EDT 11/15/2024 12:46 PM EDT Driss Alatorre MD LAB BLOOD ORDERABLES Final Resul t Performing Organization Address [facility] de Phone Number [facility] [address] [place] [address] * (ABNORMAL) Hemoglobin A1c (10/31/2024 3:00 AM [...] ORDERABLES Final Resul t Performing Organization Address [facility] de Phone Number [facility] [address] [place] [address] * (ABNORMAL) Lipid panel (10/31/2024 3:00 AM [...] Resul t Performing Organization Address [facility] de Phone Number [facility] [address] [place] [address] * (ABNORMAL) Hemoglobin (10/24/2024 3:00 AM EDT) Only the most recent of2 resultswithin the time period is included. Hgb 9.2(L) 11.2 - 15.7 g/dL [facility] Hemoglobin x 3 27.6(L) 33.6 - 47.1 g/dL [facility] 10/24/2024 3:00 AM EDT 10/25/2024 12:19 PM EDT us Driss Alatorre MD LAB BLOOD ORDERABLES Final Resul t Performing Organization Address [facility] Co de Phone Number [facility] [address] [place] [address] * Potassium (10/17/2024 3:00 AM EDT) Potassium 4.3 3.4 - 5.0 mEq/L [facility] 10/17/2024 3:00 AM EDT 10/18/2024 12:46 PM EDT Driss Alatorre MD LAB BLOOD ORDERABLES Final Resul t [facility] [address] [place] [address] from Last 3 Months Insurance MCR ([id number]) MCR ([id number]) Care Teams Hotel Night Auditor Relationship Specialty Start Date End Date Patricia Ingram MD [address] [place] [id number] [facility] - General 08/10/20
== END 2024-12-09 13:15 | disposition home or self-care (01) ==
LOC: HO.MAMMO 13:14
PROVIDERS: PCP Family Medicine; Visit Provider Family Medicine
DX: R92.1 Mammographic calcification found on diagnostic imaging of breast (principal)
CPT/HCPCS: 77062; 77066

== ENCOUNTER 2025-03-03 03:25 | Inpatient (IN) | payer OTHER, SELFPAY ==
[2025-03-03] VITALS (11 sets, daily range): BP systolic 154–208; BP diastolic 57–80; PULSE 50–79; RESP 16–30; TEMP 36.5–37.2; O2SAT 73–100; BMI 24.6
--- NOTE | 2025-03-03 | ECG_ITS ---
Test Reason : CHEST PRESSURE Blood Pressure : */* mmHG Vent. Rate : 68 BPM Atrial Rate : 68 BPM P-R Int : 144 ms QRS Dur : 106 ms QT Int : 464 ms P-R-T Axes : 57 29 45 degrees QTcB Int : 493 ms Normal sinus rhythm Incomplete right bundle branch block Marked ST abnormality, possible lateral subendocardial injury Prolonged QT Abnormal ECG When compared with ECG of 02-Dec-2024 21:02, Criteria for Septal infarct are no longer Present ST now depressed in Lateral leads QT has lengthened Referred By: Generic ED Physician Electronically Signed By:
--- NOTE | ~2025-03-03 | CT_ITS ---
EXAMINATION: CT ABDOMEN PELVIS WITHOUT THEN WITH IV CONTRAST, CT ABDOMEN PELVIS ANGIOGRAPHY WITH IV CONTRAST HISTORY: GI BLEED COMPARISON: Relation is made with a CT angiogram of the abdomen and pelvis dated 03/05/2025. TECHNIQUE: CT scan of the abdomen and pelvis was performed before and after the intravenous administration of 80 mL Omnipaque 350. Delayed images were also obtained. Coronal and sagittal reformatted images were generated and reviewed. Oral contrast material was not administered per department protocol. This CT exam was performed with one or more of the following dose reduction techniques: automated exposure control, adjustment of the mA and/or kV according to patient size, use of iterative reconstruction technique. DLP: 889 mGy-cm ABDOMEN: LOWER CHEST: The visualized lung bases are clear. There is no pleural effusion. CARDIOVASCULATURE: The heart is normal in size. There is no pericardial effusion. LIVER: The liver is normal in size and contour. No liver mass is identified. The hepatic and portal veins are patent. GALLBLADDER / BILE DUCTS: The gallbladder is unremarkable. There is no intra or extrahepatic biliary ductal dilatation. SPLEEN: The spleen is normal in size. No focal splenic lesion is identified. PANCREAS: The pancreas is unremarkable in appearance. ADRENAL GLANDS: Within normal limits. KIDNEYS/RETROPERITONEUM: The kidneys are atrophic. No renal calculi are identified. There is no hydronephrosis. There are multiple probable bilateral renal cysts measuring up to 1.2 cm. LYMPH NODES: No abdominal or pelvic lymphadenopathy. VASCULATURE: The abdominal aorta demonstrates atherosclerotic calcification, but is normal in caliber. MESENTERY/PERITONEUM: No free fluid. No masses. There is no free intraperitoneal gas. STOMACH: The stomach is collapsed, limiting evaluation. SMALL BOWEL: The small bowel is normal in caliber. High density material is noted within several small bowel loops. COLON: There is high density material throughout the entire colon on the unenhanced examination. This is of uncertain etiology but could represent ingested oral contrast material or high-density medication. Its presence however, makes evaluation for active GI bleeding impossible. APPENDIX: The appendix is not seen, however no inflammatory changes are seen adjacent to the cecum . URINARY BLADDER/PELVIC ORGANS: The urinary bladder is nondistended, limiting evaluation. The uterus appears enlarged for a patient of this age. BONES / SOFT TISSUES: No suspicious bony or soft tissue abnormalities. CT/CT gi bleed abd pel wo/w IVcon IMPRESSION: Nondiagnostic examination due to diffuse high density material throughout the colon and multiple small bowel loops. This could be secondary to ingestion of oral contrast material or high density medication. Clinical correlation is recommended. Electronically signed by: Phan Cui MD 03/06/2025 02:19 PM EDT
--- NOTE | ~2025-03-03 | XR_ITS ---
EXAMINATION: XR CHEST 1 VIEW HISTORY: sob COMPARISON: Comparison is made with the prior examination dated 12/02/2024. FINDINGS: A single AP portable view of the chest performed at 8:45 AM is submitted. There is prominence of the pulmonary vasculature, consistent with congestion. Slight blunting of the bilateral costophrenic angles may represent tiny pleural effusions. There is no pneumothorax. The heart is enlarged. The patient is status post median sternotomy and CABG. The aorta is calcified. There is degenerative disc disease of the spine. XR/XR chest 1V IMPRESSION: Cardiomegaly, pulmonary vascular congestion, and probable trace bilateral pleural effusions. Electronically signed by: Phan Cui MD 03/03/2025 09:19 AM EDT
--- NOTE | ~2025-03-03 | CT_ITS ---
EXAMINATION: CT HEAD NECK ANGIOGRAPHY WITH IV CONTRAST STROKE HISTORY: new onset L oscillopsia COMPARISON: Correlation is made with the unenhanced head CT performed immediately prior. TECHNIQUE: Helical axial images were obtained from the aortic arch to the vertex after intravenous injection of contrast per standard departmental protocol. MIP/3D reconstructions were obtained and reviewed. One or more of the following techniques was used for dose reduction: Automated exposure control, adjustment of the mA and/or kV according to patient size, use of iterative reconstruction technique. DLP: 702 mGy-cm FINDINGS: CTA NECK: AORTIC ARCH: The visualized portions of the arch as well as innominate, right subclavian, and left subclavian arteries show no hemodynamically significant stenosis. Right common carotid artery: There is no large vessel occlusion or hemodynamically significant stenosis. Right internal carotid artery: There is no large vessel occlusion or hemodynamically significant stenosis. Left common carotid artery: There is no large vessel occlusion or hemodynamically significant stenosis. Left internal carotid artery: There is no large vessel occlusion or hemodynamically significant stenosis. (Extracranial internal carotid artery stenosis estimates are based on use of distal ICA as the denominator.) Right vertebral artery: There is no large vessel occlusion or hemodynamically significant stenosis. Left vertebral artery: There is no large vessel occlusion or hemodynamically significant stenosis. CTA HEAD: Right intracranial ICA: There is no large vessel occlusion, hemodynamically significant stenosis, or aneurysm. Right HERNANDO: There is no large vessel occlusion, hemodynamically significant stenosis, or aneurysm. Right MCA: There is no large vessel occlusion, hemodynamically significant stenosis, or aneurysm. Left intracranial ICA: There is no large vessel occlusion, hemodynamically significant stenosis, or aneurysm. Left HERNANDO: There is no large vessel occlusion, hemodynamically significant stenosis, or aneurysm. Left MCA: There is no large vessel occlusion, hemodynamically significant stenosis, or aneurysm. Basilar artery: There is no large vessel occlusion, hemodynamically significant stenosis, or aneurysm. Superior cerebellar arteries: There is no large vessel occlusion, hemodynamically significant stenosis, or aneurysm. Right [employer]ENTICE: There is no large vessel occlusion, hemodynamically significant stenosis, or aneurysm. 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 VEINS: Venous enhancement is within normal limits for this technique. SOFT TISSUES: The bilateral parotid, submandibular, and thyroid glands are unremarkable. No laryngeal abnormality is identified. There is no cervical lymphadenopathy. CT/CT angio head neck STROKE IMPRESSION: No large vessel occlusion, hemodynamically significant stenosis, or aneurysm in the head and neck. Electronically signed by: Phan Cui MD 03/10/2025 12:36 PM EDT
--- NOTE | ~2025-03-03 | CT_ITS ---
EXAMINATION: CT HEAD WITHOUT IV CONTRAST STROKE HISTORY: new onset L oscillopsia. TECHNIQUE: Unenhanced helical CT of the head was performed per standard departmental protocol. Coronal and sagittal reformats of the head were also evaluated. One or more of the following techniques was used for dose reduction: Automated exposure control, adjustment of the mA and/or kV according to patient size, use of iterative reconstruction technique. DLP: 633 mGy-cm COMPARISON: Comparison is made with the prior examination dated 02/07/2023. FINDINGS: BRAIN: There is diffuse prominence of the ventricular system and cortical sulci, consistent with atrophy. Periventricular and subcortical white matter hypodensities are noted which are nonspecific, but often seen in the setting of small vessel ischemic disease. 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 There is no mass effect or midline shift. No intra- or extra-axial fluid collections are identified. SINUSES: The visualized paranasal sinuses are clear. The mastoid air cells and middle ear cavities are well pneumatized. ORBITS: The visualized orbits are unremarkable. BONES/SOFT TISSUES: The extracranial soft tissues are unremarkable. The calvarium is intact. No suspicious lytic or sclerotic lesions. CT/CT head for STROKE IMPRESSION: No acute intracranial abnormality. Findings were sent to Dr. Mo by secure text message on 03/10/2025 at 12:24 PM and acknowledged at 12:25 PM. Electronically signed by: Phan Cui MD 03/10/2025 12:25 PM EDT
--- NOTE | ~2025-03-03 | CT_ITS ---
EXAMINATION: CT ABDOMEN PELVIS ANGIOGRAPHY WITH IV CONTRAST HISTORY: GI bleed COMPARISON: Comparison is made with the prior examination dated 10/10/2024. TECHNIQUE: CT angiogram of the abdomen and pelvis was performed following administration of 80 mL Omnipaque 350 using standard departmental protocol. Coronal and sagittal reformatted images were generated and reviewed. This CT exam was performed with one or more of the following dose reduction techniques: automated exposure control, adjustment of the mA and/or kV according to patient size, use of iterative reconstruction technique. DLP: 251 mGy-cm FINDINGS: LOWER CHEST: The visualized lung bases are clear. There is no pleural effusion. CARDIOVASCULATURE: The heart is normal in size. There is no pericardial effusion. LIVER: The liver is normal in size and contour. No liver mass is identified. The hepatic and portal veins are patent. GALLBLADDER / BILE DUCTS: The gallbladder is unremarkable. There is no intra or extrahepatic biliary ductal dilatation. SPLEEN: The spleen is normal in size. No focal splenic lesion is identified. PANCREAS: The pancreas is unremarkable in appearance. ADRENAL GLANDS: Within normal limits. KIDNEYS/RETROPERITONEUM: Evaluation of the kidneys is limited on this arterial phase examination. There is no hydronephrosis. LYMPH NODES: No abdominal or pelvic lymphadenopathy. VASCULATURE: The abdominal aorta is normal in caliber. The renal arteries are patent. There is atherosclerotic calcification at the origin of the celiac axis. No definite stenosis is seen. The SMA is patent. The CHARLY is patent. The iliac arteries are patent. MESENTERY/PERITONEUM: No free fluid. No masses. There is no free intraperitoneal gas. STOMACH: The stomach is collapsed, limiting evaluation. SMALL BOWEL: The small bowel is normal in caliber. COLON: The colon is unremarkable. No contrast extravasation is seen to suggest active GI bleeding. APPENDIX: The appendix is not seen, however no inflammatory changes are seen adjacent to the cecum. URINARY BLADDER/PELVIC ORGANS: The urinary bladder is collapsed, limiting evaluation. The uterus appears enlarged for the patient's age. There is a probable 1.5 cm calcified fibroid on the left. BONES / SOFT TISSUES: No suspicious bony or soft tissue abnormalities. CT/CT angio abdomen pelvis IMPRESSION: 1. No contrast extravasation is seen to suggest active GI bleeding. 2. The uterus appears enlarged for the patient's age. Clinical correlation is recommended. Electronically signed by: Phan Cui MD 03/05/2025 02:26 PM EDT RP
--- OUTSIDE RECORDS SUMMARY | 2025-03-03 03:43 | XMS_ITS | Encounter Summary ---
Author Organization [facility] Address [address] [facility] [address] [place] [address] Phone Care Team Providers Care Riprap Man Name Role Phone Patricia Ingram MD Primary Care Provider [phone] Reason for Visit * Reason Comments Med Refill Encounter Details Date Type Department Care Team (Late st Contact Info) Description 11/08/2022 [facility]ill [facility] [address] [place] [address] Feliciano Baldwin MD Social History Tobacco [...] on filedocumented in this encounter Care Teams Riprap Man Relationship Specialty Start Date End Date Patricia Ingram MD [address] [place] [address] PCP - General 08/10/20 documented as of this encounter
[2025-03-03 04:18] LABS: MANUAL DIFF FLAG NO
[2025-03-03 04:19] LABS: Hematocrit 26.0 % (37.0-47.0); Hemoglobin 8.7 g/dl (12.0-16.0); Imm Gran Abs Auto 0.01 X10*3/uL (0.00-0.03); Imm Gran Pct Auto 0.2 % (0.0-0.4); Lymphocytes Absolute Auto 0.9 X10*3/uL (1.2-4.9); Mean Corpuscular HGB Conc 33.5 g/dl (31.0-35.0); Mean Corpuscular Hemoglobin 30.2 pg (27.0-33.0); Mean Corpuscular Volume 90.3 fL (80.0-98.0); NRBC Abs Auto 0.000 X10*3/uL (0.0-0.012); NRBC Pct Auto 0.0 /100WBC (0.0-0.2); Platelet Count 171 X10*3/uL (160-400); Red Blood Count 2.88 X10*6/uL (4.20-5.50); White Blood Count 6.2 X10*3/uL (4.8-10.8)
[2025-03-03 04:38] LABS: Troponin-I High Sensitivity 24.6 ng/L (<3.5-17.0)
[2025-03-03 04:47] LABS: Alanine Aminotransferase 6 U/L (0-31); Albumin Level 4.0 g/dL (3.5-5.0); Alkaline Phosphatase 115 U/L (39-117); Anion Gap 19 (12-20); Aspartate Amino Transferase 18 U/L (5-31); Blood Urea Nitrogen 56 mg/dL (9-16); Calcium 10.0 mg/dL (8.4-10.2); Carbon Dioxide 29 mmol/L (22-29); Chloride 100 mmol/L (96-108); Creatinine Clr Calc Pharmacy 7.1; Estimated Glomerular Filt Rate 7; Potassium 4.7 mmol/L (3.3-5.1); Sodium 143 mmol/L (135-145); Total Protein 6.9 g/dL (6.5-8.0)
[2025-03-03 06:37] LABS: Troponin-I High Sensitivity 32.2 ng/L (<3.5-17.0)
--- NOTE | 2025-03-03 07:43 | PC.NURSE ---
this nurse took over for Ngozi, patient a&ox3, labs and ekg previously drawn, radiation monitor intact nsr, vss, pt c/o generalized body pain and pressure in the chest, pt states she has dialysis gracie rose, sat. provider at bedside, call mendiola within reach, plan of care ongoing
--- NOTE | 2025-03-03 07:58 | ED.CHESTPAIN ---
HPI - Chest Pain General Chief Complaint: Chest Pain Stated Complaint: Chest Pain Time Seen by Provider: 03/03/25 07:08 History of Present Illness HPI narrative: 69 y/o F patient; PMH CAD s/p PCI to distal LMCA and proximal LCx (08/01/2024) s/p NSTEMI, hx CABG, hx moderate aortic stenosis, ESRD on HD Monday//Monday, GERD, HTN, T2DM, HTN, HLD presents today with having chest pain since last night. The chest pain is dull it is mid chest. It is somewhat pressure. Goes down to both arms. Patient is from home. Got aspirin in route. Related Data Home Medications ?Medication ?Instructions ?Recorded ?Confirmed sertraline 100 mg tablet 150 mg PO DAILY 06/10/20 03/03/25 ascorbic acid (vitamin C) 500 mg 1 tab PO DAILY 12/03/20 03/03/25 tablet (Vitamin C) montelukast 10 mg tablet 10 mg PO BEDTIME 12/03/20 03/03/25 insulin glargine 100 unit/mL (3 8 unit subcut DAILY 01/25/23 12/02/24 mL) subcutaneous pen (Lantus Solostar U-100 Insulin) sevelamer carbonate 800 mg tablet 800 mg PO TIDWM@0800,1200,1700 01/25/23 12/02/24 acetaminophen 500 mg tablet 1,000 mg PO Q8H PRN Pain 02/08/23 12/02/24 budesonide-formoterol HFA 80 2 puff inhalation BID 02/08/23 12/02/24 mcg-4.5 mcg/actuation aerosol inhaler (Symbicort) cholecalciferol (vitamin D3) 25 25 mcg PO DAILY 01/01/24 03/03/25 mcg (1,000 unit) tablet carvedilol 3.125 mg tablet 3.125 mg PO BID 08/13/24 03/03/25 docusate sodium 100 mg capsule 100 mg PO BID PRN Constipation 08/13/24 12/02/24 ezetimibe 10 mg tablet 10 mg PO DAILY 08/13/24 03/03/25 insulin glargine 100 unit/mL 7 unit subcut BEDTIME 08/13/24 12/02/24 subcutaneous solution (Lantus U-100 Insulin) melatonin 5 mg tablet 5 mg PO BEDTIME PRN Insomnia 08/13/24 12/02/24 ticagrelor 90 mg tablet (Brilinta) 90 mg PO BID 08/13/24 03/03/25 calcitriol 0.25 mcg capsule 0.75 mcg PO TUTHSA 08/26/24 12/02/24 cinacalcet 30 mg tablet 30 mg PO DAILY 08/26/24 12/02/24 diclofenac sodium 1 % topical gel 1 g topical TID PRN pain 08/26/24 12/02/24 insulin aspart U-100 100 unit/mL 3 unit subcut DAILY@1200 08/26/24 12/02/24 (3 mL) subcutaneous pen (Novolog FlexPen U-100 Insulin aspart) insulin aspart U-100 100 unit/mL See Protocol subcut BIDAC 08/26/24 12/02/24 (3 mL) subcutaneous pen (Novolog FlexPen U-100 Insulin aspart) polyethylene glycol 3350 17 17 g PO BID PRN Constipation 08/26/24 12/02/24 gram/dose oral powder sennosides 8.6 mg tablet (senna) 17.2 mg PO BEDTIME PRN Constipation 08/26/24 12/02/24 isosorbide mononitrate 30 mg 30 mg PO DAILY 10/02/24 12/02/24 tablet,extended release 24 hr pantoprazole 40 mg tablet,delayed 40 mg PO DAILY@0630 10/10/24 03/03/25 release Previous Rx's ?Medication ?Instructions ?Recorded amlodipine 10 mg tablet 10 mg PO DAILY 90 days #90 tabs 12/06/22 atorvastatin 80 mg tablet 80 mg PO BEDTIME #90 tabs 08/17/23 aspirin 81 mg tablet,delayed 81 mg PO DAILY 90 days #90 tabs 11/16/23 release furosemide 40 mg tablet 80 mg (2 x 40 mg) PO BID #240 tabs 10/02/24 hydralazine 25 mg tablet 25 mg PO TID #90 tabs 11/28/24 Allergies Allergy/AdvReac Type Severity Reaction Status Date / Time No Known Allergies Allergy Verified 03/03/25 03:38 Review of Systems Review of Systems: Positive chest pain PMFSH Past Medical History Attestation statement: The following information was validated with the patient. 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 End stage chronic kidney disease Edema Atherosclerotic cardiovascular disease SHELIA (obstructive sleep apnea) Hypercalcemia Asthma DJD (degenerative joint disease) Chronic kidney disease Other and unspecified hyperlipidemia Type 2 diabetes mellitus with unspecified complications Essential hypertension Surgical History History of hemorrhoidectomy (01/30/23) H/O colonoscopy Hemorrhoids H/O angioplasty History of tubal ligation History of coronary artery bypass graft (~2018) Family History Family History Father Cardiovascular disease Hypertension Mother Cardiovascular disease Hypertension Social History Social History Household Members: Other Household Members Other:: Son Housing: Apartment Housing Other:: senior apartment Are you a primary companion caregiver to a significant other at home: No Do you presently have visiting nurse or other home services: Yes ([employer], [employer]) Alcohol intake: never Patient Tobacco Use Status: Never used Tobacco Smoked in Last 30 Days: No Second Hand Smoke Exposure: No Use of substances other than those prescribed or required for medical reasons: No Advance Directives: Yes Advance Directives on File: Yes Advance Directives Date on File: 12/03/20 Nutrition Risks: No Nutritional Risk service: No 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al status: disabled 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 Oriented X3. No acute distress. Eyes: Pupils equal, round and reactive to light. ENT: Pharynx normal. Neck: Normal inspection. Neck supple. No lymph nodes noted. No crepitus CVS: Normal heart rate and rhythm. Pulses normal. Normal S1 and S2 Respiratory: No respiratory distress. Breath sounds normal. No Wheezing. No rales Abdomen: Soft and nontender. No rigidity. No distention. good BS x4 Skin: Skin warm and dry. Normal skin color. Normal skin turgor. Extremities: No lower extremity edema. Neurovascular intact to all extremities. No Lacerations. No Rash Neuro: Oriented X 3. No motor deficit. No sensory deficit. Moving all extermities. No slurred speech Vital Signs: Vital Signs: Last Vital Signs Temp 98.7 F 03/03/25 08:43 Pulse 64 03/03/25 11:23 Resp 30 H 03/03/25 08:43 BP 154/62 H 03/03/25 11:23 Pulse Ox 97 03/03/25 08:47 O2 Del Method Nasal Cannula 03/03/25 08:47 O2 Flow Rate 3 03/03/25 08:47 BMI result Body Mass Index 24.6 Medications Administered Discontinued Medications Generic Name Dose Route Start Last Admin Trade Name Gunner PRN Reason Stop Dose Admin Carvedilol 3.125 mg 03/03/25 11:30 03/03/25 11:45 Carvedilol 3.125 Mg Tablet PO Not Given BID ROSANA Protocol Hydromorphone HCl 0.5 mg 03/03/25 07:55 03/03/25 08:31 Hydromorphone Hcl 0.5 Mg/0.5 Ml Syringe IVPUSH 03/03/25 07:56 0.5 mg ONCE ONE Administration Protocol Nitroglycerin 0.5 inch 03/03/25 11:11 03/03/25 11:23 Nitroglycerin 2 % Oint 1 Gm Packet TRANSDERMA 03/03/25 11:12 0.5 inch ONCE STA Administration Medical Decision Making Medical Decision Making MDM Narrative: Positive chest pain pressure-like. Two sets of enzymes were done. There were 24.6 and then 32.2. Patient's chest pain is mid chest it goes to the arm bilaterally has a history of end-stage renal disease. Due for dialysis tomorrow. Patient is compliant with her treatment. Patient's hemoglobin is 8.7 this is approximately baseline. Potassium is 4.7. My interpretation patient's EKG showed a sinus rhythm heart rate is 70 [place] QRS QTC normal no acute ST segment elevation. Will be the 2nd troponin. Additional pain medication will be given. Patient is 2nd and 3rd set of troponin is trending upward. Case discussed with the cardiology team will admit for further evaluation currently in stable condition. Differential Diagnosis ACS, pneumonia, PE Admission/Observation Consideration of admission/observation: Escalation of care including admission/observation considered Consult Healthcare Provider Management of the patient was discussed with: Hospitalist Lab Data MDM Lab Attestation statement: I reviewed the patient's lab results. 03/03/25 04:11 03/03/25 04:11 Labs: Lab Results 03/03/25 03/03/2525 Range/Units 04:11 04:12 06:09 WBC 6.2 (4.8-10.8) X10*3/uL RBC 2.88 L (4.20-5.50) X10*6/uL Hgb 8.7 L (12.0-16.0) g/dl Hct 26.0 L (37.0-47.0) % MCV 90.3 (80.0-98.0) fL MCH 30.2 (27.0-33.0) pg MCHC 33.5 (31.0-35.0) g/dl RDW 15.5 (11.0-16.0) % Plt Count 171 (160-400) X10*3/uL MPV 10.2 (9.4-12.3) fL Immature Gran % (Auto) 0.2 (0.0-0.4) % Neut % (Auto) 78.0 H (45-73) % Lymph % (Auto) 14.4 L (20-40) % [place] % (Auto) 6.7 (2-11) % Eos % (Auto) 0.5 (0-4) % Baso % (Auto) 0.2 (0-2) % Lymph # (Auto) 0.9 L (1.2-4.9) X10*3/uL [place] # (Auto) 0.4 (0.1-1.2) X10*3/uL Eos # (Auto) 0.0 (0.0-0.4) X10*3/uL Baso # (Auto) 0.0 (0.0-0.2) X10*3/uL Abs Immat Gran (auto) 0.01 (0.00-0.03) X10*3/uL Absolute Neuts (auto) 4.8 (2.0-8.3) x10*3/uL Absolute Nucleated RBC 0.000 (0.0-0.012) X10*3/uL Nucleated RBC % (auto) 0.0 (0.0-0.2) /100WBC Sodium 143 (135-145) mmol/L Potassium 4.7 (3.3-5.1) mmol/L Chloride 100 (96-108) mmol/L Carbon Dioxide 29 (22-29) mmol/L Anion Gap 19 (12-20) BUN 56 H (9-16) mg/dL Creatinine 5.83 H* (0.5-1.4) mg/dL Estim Creat Clear Calc 7.1 Estimated GFR 7 Random Glucose 119 H (60-115) mg/dL Calcium 10.0 D (8.4-10.2) mg/dL Total Bilirubin 0.3 (0.0-1.0) mg/dL AST 18 (5-31) U/L ALT 6 (0-31) U/L Alkaline Phosphatase 115 (39-117) U/L Troponin I High Sens 24.6 H D 32.2 H (<3.5-17.0) ng/L Total Protein 6.9 (6.5-8.0) g/dL Albumin 4.0 (3.5-5.0) g/dL 03/03/25 Range/Units 10:10 WBC (4.8-10.8) X10*3/uL RBC (4.20-5.50) X10*6/uL Hgb (12.0-16.0) g/dl Hct (37.0-47.0) % MCV (80.0-98.0) fL MCH (27.0-33.0) pg MCHC (31.0-35.0) g/dl RDW (11.0-16.0) % Plt Count (160-400) X10*3/uL MPV (9.4-12.3) fL Immature Gran % (Auto) (0.0-0.4) % Neut % (Auto) (45-73) % Lymph % (Auto) (20-40) % [place] % (Auto) (2-11) % Eos % (Auto) (0-4) % Baso % (Auto) (0-2) % Lymph # (Auto) (1.2-4.9) X10*3/uL [place] # (Auto) (0.1-1.2) X10*3/uL Eos # (Auto) (0.0-0.4) X10*3/uL Baso # (Auto) (0.0-0.2) X10*3/uL Abs Immat Gran (auto) (0.00-0.03) X10*3/uL Absolute Neuts (auto) (2.0-8.3) x10*3/uL Absolute Nucleated RBC (0.0-0.012) X10*3/uL Nucleated RBC % (auto) (0.0-0.2) /100WBC Sodium (135-145) mmol/L Potassium (3.3-5.1) mmol/L Chloride (96-108) mmol/L Carbon Dioxide (22-29) mmol/L Anion Gap (12-20) BUN (9-16) mg/dL Creatinine (0.5-1.4) mg/dL Estim Creat Clear Calc Estimated GFR Random Glucose (60-115) mg/dL Calcium (8.4-10.2) mg/dL Total Bilirubin (0.0-1.0) mg/dL AST (5-31) U/L ALT (0-31) U/L Alkaline Phosphatase (39-117) U/L Troponin I High Sens 44.6 H (<3.5-17.0) ng/L Total Protein (6.5-8.0) g/dL Albumin (3.5-5.0) g/dL Independent Interpretation I performed an independent interpretation of an: EKG (Sinus heart rate is 90 with a right bundle-branch block no acute ST segment elevation) and Plain X-Ray (Chest x-ray grossly negative) Radiology Impression Discussion of test interpretation with radiology: I have reviewed the radiologist's reading. External Record Review External record reviewed: Inpatient record Chronic Conditions Patient?s care impacted by: Hypertension End-stage renal disease Social Determinants Patient?s care significantly limited by Social Determinants of Health including: Low income, Alcoholism and drug addiction in family and Problems related to primary support group Critical Care Time Critical Care Time Critical Care Time: Yes Total Critical Care Time: 30 Attestation: I have personally provided 30 minutes of critical care time exclusive of time spent on separately billable procedures. ?Time includes review of lab data, radiology results, discussion with consultants, and monitoring for potential decompensation. ?Interventions were performed as documented above Discharge Plan Discharge Clinical Impression: Non-ST elevation MD (NSTEMI) Patient Disposition: Admitted As Inpatient
--- NOTE | 2025-03-03 08:02 | ECG_ITS ---
Test Reason : chest pain Blood Pressure : */* mmHG Vent. Rate : 77 BPM Atrial Rate : 77 BPM P-R Int : 148 ms QRS Dur : 130 ms QT Int : 418 ms P-R-T Axes : 62 -51 31 degrees QTcB Int : 473 ms Normal sinus rhythm Right bundle branch block Left anterior fascicular block Bifascicular block Abnormal ECG When compared with ECG of 03-Mar-2025 03:42, (RBBB and left anterior fascicular block) has replaced Incomplete right bundle branch block Referred By: Zully Coto Electronically Signed By: JOSH STEWART
--- NOTE | 2025-03-03 08:48 | PC.NURSE ---
pt medicated for pain /, upon medicating for pain pt desat on room air- to 70s, pt placed on O2 NC and coached to deep breathe pts O2 sat increased back to normal limits, provider was notified of occurance. pts rr was equal/non labored lungs diminished throughout, lt av fistula + bruit/thrill, call mendiola within reach, family at bedside, plan of care ongoing
[2025-03-03 10:37] LABS: Troponin-I High Sensitivity 44.6 ng/L (<3.5-17.0)
[2025-03-03] MEDS: Nitroglycerin 2 % Oint 1 GM Packet 0.5 INCH TRANSDERMA (11:23)
--- NOTE | 2025-03-03 11:31 | PM.IMHP ---
History of Present Illness Date of Service: 03/03/25 Attending physician on admission: Brittani Rhoades Chief Complaint: Chest pain Kavitha Padilla this is a 71 years old woman with past medical history significant for end-stage renal disease on hemodialysis (TTS), CAD status post CABG, HFpEF, type 2 diabetes mellitus, obstructive sleep apnea and chronic anemia presents to the emergency department complaining of mid chest pressure that started 2 days ago associated with cough, nausea, vomiting x1 and generalized abdominal discomfort. Pain was 10/10 and was radiating to both arms. She denied any fever, cough, headache, palpitations, leg swelling or shortness on breath. Last hemodialysis session was Monday without any complications. She is a former tobacco smoker, quit smoking many years ago. She did not use her CPAP or home oxygen. She was brought to the emergency department by EMS treating her with oxygen. In the ED, she was found to have tachypnea, and elevated blood pressure (max 203/70). Her oxygen saturation was 73% on room air and now requiring 3 L/min supplemental oxygen via nasal cannula. Blood workup showed no leukocytosis. Hemoglobin is 8.7. There is no leukocytosis and platelets are normal. BUN is 56 and creatinine 5.83. There are no electrolyte imbalances. Glucose is 119. Troponin x3 24.6 -> 32.2-> 44.6. ECG showed normal sinus rhythm, 77 bpm, RBBB, LAFB. CXR showed cardiomegaly, pulmonary vascular congestion and probable trace bilateral pleural effusions. ED tx: Dilaudid 0.5 mg IV Review of Systems Review of Systems: All 12 systems were reviewed and normal except as noted in HPI. 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 End stage chronic kidney disease Edema Atherosclerotic cardiovascular disease SHELIA (obstructive sleep apnea) Hypercalcemia Asthma DJD (degenerative joint disease) Chronic kidney disease Other and unspecified hyperlipidemia Type 2 diabetes mellitus with unspecified complications Essential hypertension Family History Father Cardiovascular disease Hypertension Mother Cardiovascular disease Hypertension Surgical History History of hemorrhoidectomy (01/30/23) H/O colonoscopy Hemorrhoids H/O angioplasty History of tubal ligation History of coronary artery bypass graft (~2018) Social History Household Members: Other Household Members Other:: Son Housing: Apartment Housing Other:: senior apartment Are you a primary md do resident urgent care to a significant other at home: No Do you presently have visiting nurse or other home services: Yes ([employer]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, [employer]) Alcohol intake: never Patient Tobacco Use Status: Never used Tobacco Smoked in Last 30 Days: No Second Hand Smoke Exposure: No Use of substances other than those prescribed or required for medical reasons: No Advance Directives: Yes Advance Directives on File: Yes Advance Directives Date on File: 12/03/20 Nutrition Risks: No Nutritional Risk service: No 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al status: disabled 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 [employer] Allergies Allergy/AdvReac Type Severity Reaction Status Date / Time No Known Allergies Allergy Verified 03/03/25 03:38 Active Medications: Current Medications Acetaminophen (Acetaminophen 325 Mg Tablet) 975 mg PO Q6H PRN PRN Reason: Pain, Mild 1-3,fever,headache Calcium Carbonate (Calcium Carbonate 750 Mg Tab.Chew) 750 mg PO Q4H PRN PRN Reason: Heartburn Magnesium Hydroxide (Milk Of Magnesia 30 Ml Oral.Susp) 30 ml PO DAILY PRN PRN Reason: Constipation Melatonin (Melatonin 3 Mg Tablet) 6 mg PO BEDTIME PRN PRN Reason: Insomnia Sodium Chloride (0.9 % Sodium Chloride Flush 3 Ml Syringe) [facility] Medications ?Medication ?Instructions ?Recorded ?Confirmed ?Last Taken ?Type sertraline 100 mg tablet 150 mg PO DAILY 06/10/20 03/03/25 11/28/21 History ascorbic acid (vitamin C) 500 mg 1 tab PO DAILY 12/03/20 03/03/25 11/28/21 History tablet (Vitamin C) montelukast 10 mg tablet 10 mg PO BEDTIME 12/03/20 03/03/25 11/28/21 History insulin glargine 100 unit/mL (3 8 unit subcut DAILY 01/25/23 12/02/24 Unknown History mL) subcutaneous pen (Lantus Solostar U-100 Insulin) sevelamer carbonate 800 mg tablet 800 mg PO TIDWM@0800,1200,1700 06/28/23 05/05/25 Unknown History acetaminophen 500 mg tablet 1,000 mg PO Q8H PRN Pain 02/08/23 12/02/24 Unknown History budesonide-formoterol HFA 80 2 puff inhalation BID 02/08/23 12/02/24 Unknown History mcg-4.5 mcg/actuation aerosol inhaler (Symbicort) cholecalciferol (vitamin D3) 25 25 mcg PO DAILY 01/01/24 03/03/25 Unknown History mcg (1,000 unit) tablet carvedilol 3.125 mg tablet 3.125 mg PO BID 08/13/24 03/03/25 Unknown History docusate sodium 100 mg capsule 100 mg PO BID PRN Constipation 08/13/24 12/02/24 Unknown History ezetimibe 10 mg tablet 10 mg PO DAILY 08/13/24 03/03/25 Unknown History insulin glargine 100 unit/mL 7 unit subcut BEDTIME 08/13/24 12/02/24 Unknown History subcutaneous solution (Lantus U-100 Insulin) melatonin 5 mg tablet 5 mg PO BEDTIME PRN Insomnia 08/13/24 12/02/24 Unknown History ticagrelor 90 mg tablet (Brilinta) 90 mg PO BID 08/13/24 03/03/25 Unknown History calcitriol 0.25 mcg capsule 0.75 mcg PO TUTHSA 08/26/24 12/02/24 Unknown History cinacalcet 30 mg tablet 30 mg PO DAILY 08/26/24 12/02/24 Unknown History diclofenac sodium 1 % topical gel 1 g topical TID PRN pain 08/26/24 12/02/24 Unknown History insulin aspart U-100 100 unit/mL 3 unit subcut DAILY@1200 08/26/24 12/02/24 Unknown History (3 mL) subcutaneous pen (Novolog FlexPen U-100 Insulin aspart) insulin aspart U-100 100 unit/mL See Protocol subcut BIDAC 08/26/24 12/02/24 Unknown History (3 mL) subcutaneous pen (Novolog FlexPen U-100 Insulin aspart) polyethylene glycol 3350 17 17 g PO BID PRN Constipation 08/26/24 12/02/24 Unknown History gram/dose oral powder sennosides 8.6 mg tablet (senna) 17.2 mg PO BEDTIME PRN Constipation 08/26/24 12/02/24 Unknown History isosorbide mononitrate 30 mg 30 mg PO DAILY 10/02/24 12/02/24 Unknown History tablet,extended release 24 hr pantoprazole 40 mg tablet,delayed 40 mg PO DAILY@0630 10/10/24 03/03/25 Unknown History release Physical Exam Vital Signs and Narrative: Vital Signs: Last Vital Signs Temp 98.7 F 03/03/25 08:43 Pulse 64 03/03/25 11:23 Resp 30 H 03/03/25 08:43 BP 154/62 H 03/03/25 11:23 Pulse Ox 97 03/03/25 08:47 O2 Del Method Nasal Cannula 03/03/25 08:47 O2 Flow Rate 3 03/03/25 08:47 BMI result Body Mass Index 24.6 Constitutional - Awake and Alert, Acute-ill appearing. Afebrile. Nasal cannula in place. HEENT - PER, EOMI Heart - RRR, (+) murmur best heard right upper sternal border. Lungs - Normal lung expansion, Normal respiratory effort, No respiratory distress. Tachypnea. Decreased breath sound at bases. No crackles. No wheezing or rhonchi. Abdomen - NT / ND; +BS; No rebound or guarding Extremities - no calf tenderness bilaterally, no swelling Skin - Warm/Dry Neurological - Alert & oriented x3. Moving all extremities spontaneously. Psychological - Appropriate affect. Results Labs 03/03/25 04:11 03/03/25 04:11 Labs: Laboratory Results - last 24 hr 03/03/25 04:11 MCV 90.3 MCH 30.2 MCHC 33.5 RDW 15.5 Plt Count 171 MPV 10.2 Immature Gran % (Auto) 0.2 Neut % (Auto) 78.0 H Lymph % (Auto) 14.4 L [place] % (Auto) 6.7 Eos % (Auto) 0.5 Baso % (Auto) 0.2 Lymph # (Auto) 0.9 L [place] # (Auto) 0.4 Eos # (Auto) 0.0 Baso # (Auto) 0.0 Abs Immat Gran (auto) 0.01 Absolute Neuts (auto) 4.8 Absolute Nucleated RBC 0.000 Nucleated RBC % (auto) 0.0 Anion Gap 19 Estim Creat Clear Calc 7.1 Estimated GFR 7 Random Glucose 119 H Calcium 10.0 D Total Bilirubin 0.3 AST 18 ALT 6 Alkaline Phosphatase 115 Total Protein 6.9 Albumin 4.0 Imaging Radiologist's Impressions: Impressions Chest X-Ray 03/03/25 09:00 IMPRESSION: Cardiomegaly, pulmonary vascular congestion, and probable trace bilateral pleural effusions. Electronically signed by: Phan Cui MD 03/03/2025 09:19 AM EDT RP Assessment and Plan (1) Acute hypoxic respiratory failure: Status: Acute (2) Uncontrolled hypertension: Status: Acute Plan Tlmary Padilla this is a 71 y/o woman with a PMHx significant for ESRD on HD (TTS) and HFpEF presents with: Acute hypoxic respiratory failure secondary to fluid overload and/or agree on chronic diastolic congestive heart failure. Telemetry. Pulse oximetry. Supplemental oxygen to keep O2 sats > 90%. Nitroglycerin 0.5 inches. I&Os, daily weight, low-salt diet. Nephrology consult -Dr. Powell will perform ultrafiltration today -so will hold furosemide today. Cardiology consult -Dr. Wilkerson. Elevated troponin, likely secondary to above. ECG showed no acute ischemia. Continue to monitor. Uncontrolled hypertension. Nitroglycerin 0.5 mg in. Continue home meds: Amlodipine, hydralazine and carvedilol. Ultrafiltration should help with this as well. Type 2 diabetes mellitus. BG checks before meals at bedtime. Lantus and insulin sliding scale. Diabetic diet. ESRD on HD (TTS). Nephrology consult for inpatient hemodialysis. Check phosphorus. Chronic anemia. Continue to monitor. Obstructive sleep apnea. Stopped using her CPAP due to intolerance. Hyperlipidemia. Continue statin. CAD s/p CABG. Continue Brilinta, aspirin and statin. GERD. Continue PPI. Asthma. Mild intermittent. Continue home inhalers and montelukast. Depression. Continue Zoloft. DVT prophylaxis: SCDs only (pt takes Brilinta and aspirin -hx of GIB). Code status: Full Patient will need hospitalization for at least 2 midnights for acute hypoxic respiratory treatment due to overload and/or CHF associated with uncontrolled hypertension with supplemental oxygen, ultrafiltration and close monitoring of vital signs. Quality Stroke Does the patient have a stroke diagnosis?: No VTE Prior VTE?: No VTE Risk Level:: Medical - moderate - high VTE Device Contraindication: N/A - Device Ordered VTE Drug Contraindication: Treatment Not Indicated
--- NOTE | 2025-03-03 11:33 | PC.NURSE ---
patient sleeping, vss, medicated per orders, call mendiola within reach, plan of care ongoing.
--- NOTE | 2025-03-03 11:45 | PC.NURSE ---
pharmacy/coreg coreg order was changed and one was dc'd the dc'd order was marked as not given.
--- NOTE | 2025-03-03 13:21 | PC.NURSE ---
hub called hub was called for bed placement for patient as she is leaving the ED for a 2hr dialysis.
--- NOTE | 2025-03-03 13:36 | PC.NURSE ---
Tele pk Floor was notified that this patient needs a tele pk to be watched while in dialysis, transport to go get the pack to bring pt to dialysis. Additionally, This nurse also notified Dexter Karimi so he was aware there is a pt in dialysis needing a bed also.
--- NOTE | 2025-03-03 14:13 | PHA.MEDREC ---
Addendum entered by Andres Beltran PharmD 03/03/25 14:36: reviewed Original Note: Pharmacy Consult ? Medication Reconciliation Pharmacy has completed the medication reconciliation. Tried speaking with pt and she has on hand a Med Box list of her medications but is a poor historian confirming meds not on the list. I tried calling pt daughter/HCP (Alice [phone]) and had to leave a voicemail and pt son (Parrish [phone]) who's phone is off at this time. I got a list from [facility] and confirmed the med rec utilizing list from pharmacy and will update if pt family calls back.
[2025-03-03 16:50] LABS: Glucose, Whole Blood 84 mg/dL (60-115)
--- NOTE | 2025-03-03 17:02 | MHC.EDTECH ---
patient blood sugar 84 given 120 of orange juice and pudding. Nurse aware
--- NOTE | 2025-03-03 17:38 | MHC.EDTECH ---
patient changed into a gillian when came back from dialysis and repositioned
[2025-03-03 19:40] LABS: Troponin-I High Sensitivity 83.4 ng/L (<3.5-17.0)
[2025-03-03] MEDS: Aspirin Enteric Coated 81 MG TABLET.DR PO (19:51)
[2025-03-03 20:06] LABS: Glucose, Whole Blood 215 mg/dL (60-115)
[2025-03-04] VITALS (10 sets, daily range): BP systolic 115–170; BP diastolic 54–83; PULSE 58–94; RESP 16–20; TEMP 36.7–37.1; O2SAT 92–100; BMI 22.3
--- NOTE | 2025-03-04 03:35 | ECG_ITS ---
Test Reason : CHEST PAIN Blood Pressure : */* mmHG Vent. Rate : 71 BPM Atrial Rate : 71 BPM P-R Int : 146 ms QRS Dur : 88 ms QT Int : 422 ms P-R-T Axes : 53 14 29 degrees QTcB Int : 458 ms Normal sinus rhythm Septal infarct , age undetermined Abnormal ECG When compared with ECG of 03-Mar-2025 08:09, (RBBB and left anterior fascicular block) is no longer Present Septal infarct is now Present Referred By: Brittani Rhoades Electronically Signed By: JOSH STEWART
--- NOTE | 2025-03-04 03:48 | PC.NURSE ---
Patient c/o chest tightness / midsternal , hospitalist notified Nitro 0.4mg SL administered with minimal effect. Patient stating she has episodes of anxiety, takes medication at home. Hydroxyzine 50mg x1 ordered/administered. Following Melatonin 6 mg administered. EKG done /NSR /septal infarct age undetermined . Hospitalist aware . Patient resting/asleep , BP 166/83, HR 64, O2 sats 97% on room air. Will continue to monitor.
[2025-03-04 06:27] LABS: MANUAL DIFF FLAG NO
[2025-03-04 06:57] LABS: Hematocrit 26.4 % (37.0-47.0); Hemoglobin 8.6 g/dl (12.0-16.0); Imm Gran Abs Auto 0.03 X10*3/uL (0.00-0.03); Imm Gran Pct Auto 0.4 % (0.0-0.4); Lymphocytes Absolute Auto 0.9 X10*3/uL (1.2-4.9); Mean Corpuscular HGB Conc 32.6 g/dl (31.0-35.0); Mean Corpuscular Hemoglobin 30.1 pg (27.0-33.0); Mean Corpuscular Volume 92.3 fL (80.0-98.0); NRBC Abs Auto 0.000 X10*3/uL (0.0-0.012); NRBC Pct Auto 0.0 /100WBC (0.0-0.2); Platelet Count 191 X10*3/uL (160-400); Red Blood Count 2.86 X10*6/uL (4.20-5.50); White Blood Count 6.8 X10*3/uL (4.8-10.8)
[2025-03-04 07:23] LABS: Anion Gap 20 (12-20); Blood Urea Nitrogen 73 mg/dL (9-16); Calcium 10.4 mg/dL (8.4-10.2); Carbon Dioxide 27 mmol/L (22-29); Chloride 98 mmol/L (96-108); Creatinine Clr Calc Pharmacy 5.7; Estimated Glomerular Filt Rate 5; Magnesium 2.5 mg/dL (1.6-2.6); Potassium 4.8 mmol/L (3.3-5.1); Sodium 140 mmol/L (135-145); Troponin-I High Sensitivity 64.5 ng/L (<3.5-17.0)
[2025-03-04 07:33] LABS: Glucose, Whole Blood 112 mg/dL (60-115)
[2025-03-04] MEDS: Insulin Glargine,Hum.rec.anlog 100 UNIT/ML 10 ML VIAL 8 UNIT SUBCUT (08:07)
[2025-03-04] MEDS: Fluticasone/Vilanterol 100/25 BLST.W.DEV 1 PUFF INHALE (08:07)
[2025-03-04] MEDS: 0.9 % Sodium Chloride Flush 3 ML SYRINGE IVFLUSH ×2 (08:08→17:18)
[2025-03-04] MEDS: Sevelamer Carbonate Tablet 800 MG TABLET PO ×3 (08:10→17:18)
--- NOTE | 2025-03-04 08:28 | ECG_ITS ---
Test Reason : chest pain Blood Pressure : */* mmHG Vent. Rate : 63 BPM Atrial Rate : 63 BPM P-R Int : 140 ms QRS Dur : 88 ms QT Int : 446 ms P-R-T Axes : 54 17 46 degrees QTcB Int : 456 ms Poor data quality, interpretation may be adversely affected Normal sinus rhythm Septal infarct (cited on or before 04-Mar-2025) Abnormal ECG When compared with ECG of 04-Mar-2025 03:35, No significant change was found Referred By: Josh Stewart Electronically Signed By: JOSH STEWART
--- NOTE | 2025-03-04 09:42 | P.CONCA_ITS ---
History of Present Illness History of Present Illness Date of Service: 03/04/25 Chief complaint: Chest Pain, uncontrolled hypertension Narrative: This is a cardiology consultation regarding chest pain. Patient has a fairly complicated cardiac history. History of coronary disease and bypass surgery in the past. In July 2024, she had NSTEMI and underwent diagnostic catheterization. That showed multivessel disease including severe distal left main disease. She underwent IVUS guided PCI to left main coronary artery and paroxysmal circumflex with drug-eluting stent. Subsequently, admitted for GI bleed. After that issue was resolved, it seems she was doing okay. Currently again admitted for chest pain. Per notes, she also had additionally complaints like cough, nausea, vomiting xone and generalized abdominal discomfort. She is a dialysis patient and last dialysis prior to that was on Monday. While she was in the ER, she had markedly high blood pressure into the 200s. Low-grade troponin leak. Subsequently, she was admitted for further care. Currently, she is in dialysis. She states that she is feeling better. She looks quite comfortable, but when discussed with the molded goods operator, she points to some low- grade discomfort. Yesterday, she had some ultrafiltration done and after that apparently felt better. Review of Systems 2 Review of Systems: Yes all other systems are reviewed and are negative Constitutional: Constitutional: Reports as per HPI and Reports no additional constitutional complaints Eyes: Eyes: Reports as per HPI and Denies no additional eye complaints ENT: Denies system reviewed and no additional complaints, except as documented and Reports as per HPI Cardiovascular: Cardiovascular: Reports as per HPI, Reports no additional cardiovascular complaints, Denies acrocyanosis, Denies cool extremities, Reports chest pain, Denies leg edema, Denies lightheadedness, Denies palpitations and Denies dyspnea Respiratory: Respiratory: Reports as per HPI, Denies no additional respiratory complaints and Denies dyspnea Gastrointestinal: Gastrointestinal: Reports as per HPI and Denies no additional gastrointestinal complaints Genitourinary: Genitourinary: Reports as per HPI Musculoskeletal: Musculoskeletal: Reports no additional musculoskeletal complaints and Reports as per HPI Integumentary/Breasts: Skin/Breast: Reports system reviewed and no additional complaints, except as docu Neurologic: Reports system reviewed and no additional complaints, except as documented and Reports as per HPI Psychiatric: Psychiatric: Reports no additional psychiatric complaints and Reports as per HPI Endocrine: Endocrine: Reports no additional endocrine complaints, Reports as per HPI and Denies palpitations Hematologic/Lymphatic: Hematologic/Lymphatic: Reports no additional hematologic/lymphatic complaints and Reports as per HPI Allergic/Immunologic: Allergic/Immunologic: Reports no additional allergic/immunologic complaints and Reports as per HPI [facility] Past Medical History 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 End stage chronic kidney disease Edema Atherosclerotic cardiovascular disease SHELIA (obstructive sleep apnea) Hypercalcemia Asthma DJD (degenerative joint disease) Chronic kidney disease Other and unspecified hyperlipidemia Type 2 diabetes mellitus with unspecified complications Essential hypertension Family History Family History Father Cardiovascular disease Hypertension Mother Cardiovascular disease Hypertension Surgical History Surgical History History of hemorrhoidectomy (01/30/23) H/O colonoscopy Hemorrhoids H/O angioplasty History of tubal ligation History of coronary artery bypass graft (~2017) Social History Social History Household Members: Children Household Members Other:: Son Housing: Apartment Housing Other:: senior apartment Are you a primary nanny caregiver to a significant other at home: No Do you presently have visiting nurse or other home services: No Alcohol intake: never Patient Tobacco Use Status: Never used Tobacco Second Hand Smoke Exposure: No Advance Directives Date on File: 12/03/20 service: No 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al status: disabled 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 Meds Allergies Allergy/AdvReac Type Severity Reaction Status Date / Time No Known Allergies Allergy Verified 03/03/25 03:38 Active Medications: Current Medications Acetaminophen (Acetaminophen 325 Mg Tablet) 975 mg PO Q6H PRN PRN Reason: Pain, Mild 1-3,fever,headache Last Admin: 03/03/25 21:15 Dose: 975 mg Amlodipine Besylate (Amlodipine Besylate 10 Mg Tablet) 10 mg PO DAILY [facility]; Protocol Last Admin: 03/04/25 08:07 Dose: 10 mg Ascorbic Acid (Ascorbic Acid 500 Mg Tablet) 500 mg PO DAILY [facility] Last Admin: 03/04/25 08:07 Dose: 500 mg Aspirin (Aspirin Enteric Coated 81 Mg Tablet.) 81 mg PO BEDTIME [facility] Last Admin: 03/03/25 19:51 Dose: 81 mg Atorvastatin Calcium (Atorvastatin Calcium 80 Mg Tablet) 80 mg PO BEDTIME [facility] Last Admin: 03/03/25 21:11 Dose: 80 mg Calcium Carbonate (Calcium Carbonate 750 Mg Tab.Chew) 750 mg PO Q4H PRN PRN Reason: Heartburn Carvedilol (Carvedilol 3.125 Mg Tablet) 3.125 mg PO BID [facility]; Protocol Last Admin: 03/04/25 08:07 Dose: 3.125 mg Dextrose (Dextrose 50 % 25 Gm/50 Ml Syringe) 25 gm IVPUSH Q15M PRN; Protocol PRN Reason: per Hypoglycemia Standing Ord. Docusate Sodium (Docusate Sodium 100 Mg Capsule) 100 mg PO BID PRN PRN Reason: Constipation Ezetimibe (Ezetimibe 10 Mg Tablet) 10 mg PO DAILY [facility] Last Admin: 03/04/25 08:07 Dose: 10 mg Fluticasone/Vilanterol (Fluticasone/Vilanterol 100/25 Blst.W.Dev) 1 puff INHALE RDAILY [facility] Last Admin: 03/04/25 08:07 Dose: 1 puff Glucose (Glucose Gel 15 Gm Gel..Gram.) 15 gm PO Q15M PRN; Protocol PRN Reason: per Hypoglycemia Standing Ord. Hydralazine HCl (Hydralazine Hcl 25 Mg Tablet) 25 mg PO TID [facility]; Protocol Last Admin: 03/04/25 08:07 Dose: 25 mg Insulin Glargine (Insulin Glargine,Hum.Rec.Anlog 100 Unit/Ml 10 Ml Vial) 8 unit SUBCUT DAILY [facility] Last Admin: 03/04/25 08:07 Dose: 8 unit Insulin Glargine (Insulin Glargine,Hum.Rec.Anlog 100 Unit/Ml 10 Ml Vial) 7 unit SUBCUT BEDTIME [facility] Insulin Human Lispro (Insulin Lispro 100 Unit/Ml 3 Ml Vial) 0 unit SUBCUT QIDACHS [facility]; Protocol Last Admin: 03/04/25 08:06 Dose: Not Given Isosorbide Mononitrate (Isosorbide Mononitrate 30 Mg Tab.Er.24h) 30 mg PO DAILY [facility]; Protocol Last Admin: 03/04/25 08:07 Dose: 30 mg Magnesium Hydroxide (Milk Of Magnesia 30 Ml Oral.Susp) 30 ml PO DAILY PRN PRN Reason: Constipation Melatonin (Melatonin 3 Mg Tablet) 6 mg PO BEDTIME PRN PRN Reason: Insomnia Last Admin: 03/04/25 03:19 Dose: 6 mg Montelukast Sodium (Montelukast Sodium 10 Mg Tablet) 10 mg PO BEDTIME [facility] Last Admin: 03/03/25 22:23 Dose: 10 mg Nitroglycerin (Nitroglycerin 0.4 Mg Tab.Subl) 0.4 mg SUBLINGUAL Q5MX3 PRN PRN Reason: Chest Pain Last Admin: 03/03/25 21:11 Dose: 0.4 mg Omeprazole (Omeprazole 20 Mg Capsule.Dr) 20 mg PO DAILY@0630 [facility] Last Admin: 03/04/25 05:30 Dose: 20 mg Sertraline HCl (Sertraline Hcl 50 Mg Tablet) 150 mg PO DAILY [facility] Last Admin: 03/04/25 08:07 Dose: 150 mg Sevelamer Carbonate (Sevelamer Carbonate Tablet 800 Mg Tablet) 800 mg PO TIDWM@0800,1200,1700 [facility] Last Admin: 03/04/25 08:10 Dose: 800 mg Sodium Chloride (0.9 % Sodium Chloride Flush 3 Ml Syringe) 3 ml IVFLUSH QSHIFT [facility] Last Admin: 03/04/25 08:08 Dose: 3 ml Ticagrelor (Ticagrelor 90 Mg Tablet) 90 mg PO BID [facility] Last Admin: 03/04/25 08:07 Dose: 90 mg Vitamin D (Cholecalciferol (Vitamin D3) 25 Mcg Tablet) 25 mcg PO DAILY [facility] Last Admin: 03/04/25 08:07 Dose: 25 mcg Home Medications ?Medication ?Instructions ?Recorded ?Confirmed ?Last Taken ?Type sertraline 100 mg tablet 150 mg PO DAILY 06/10/2011/2211/28/21 History ascorbic acid (vitamin C) 500 mg 1 tab PO DAILY 03/03/25 11/28/21 History tablet (Vitamin C) montelukast 10 mg tablet 10 mg PO BEDTIME 12/03/2011/28/21 History insulin glargine 100 unit/mL (3 8 unit subcut DAILY 03/03/25 Unknown History mL) subcutaneous pen (Lantus Solostar U-100 Insulin) sevelamer carbonate 800 mg tablet 800 mg PO TIDWM@0800 ,1200,1700 01/25/23 03/03/25 Unknown History acetaminophen 500 mg tablet 1,000 mg PO Q8H PRN Pain 0 02/08/23 03/03/25 Unknown History budesonide-formoterol HFA 80 2 puff inhalation BID 07/2203/03/25 Unknown History mcg-4.5 mcg/actuation aerosol inhaler (Symbicort) cholecalciferol (vitamin D3) 25 25 mcg PO DAILY 03/03/25 Unknown History mcg (1,000 unit) tablet carvedilol 3.125 mg tablet 3.125 mg PO BID 08/13/24 Unknown History docusate sodium 100 mg capsule 100 mg PO BID PRN Const ipation 08/13/24 03/03/25 Unknown History ezetimibe 10 mg tablet 10 mg PO DAILY 08/13/2411/22 Unknown History insulin glargine 100 unit/mL 7 unit subcut BEDTIME 03/03/25 Unknown History subcutaneous solution (Lantus U-100 Insulin) melatonin 5 mg tablet 5 mg PO BEDTIME PRN Insomnia 08/13/24 03/03/25 Unknown History ticagrelor 90 mg tablet (Brilinta) 90 mg PO BID 03/03/25 Unknown History insulin aspart U-100 100 unit/mL 3 unit subcut DAILY@1 200 08/26/24 03/03/25 Unknown History (3 mL) subcutaneous pen (Novolog FlexPen U-100 Insulin aspart) insulin aspart U-100 100 unit/mL See Protocol subcut B IDAC@0730,1630 08/26/24 03/03/25 Unknown History (3 mL) subcutaneous pen (Novolog FlexPen U-100 Insulin aspart) isosorbide mononitrate 30 mg 30 mg PO DAILY 10/02/24 0 03/03/25 Unknown History tablet,extended release 24 hr pantoprazole 40 mg tablet,delayed 40 mg PO DAILY@0630 10/10/24 03/03/25 Unknown History release aspirin 81 mg tablet,delayed 81 mg PO BEDTIME 03/03/25 03/03/25 Unknown History release evolocumab 140 mg/mL subcutaneous 140 mg subcut Q2W 03/03/25 Unknown History pen injector (atha Loriick) Physical Exam 2 Vital Signs: Vital Signs: Last Vital Signs Temp 98.2 F 03/04/25 07:44 Pulse 94 03/04/25 08:09 Resp 16 03/04/25 08:09 BP 120/75 03/04/25 08:07 Pulse Ox 92 03/04/25 07:44 O2 Del Method Nasal Cannula 03/04/25 07:44 O2 Flow Rate 2 03/04/25 07:44 BMI result Body Mass Index 24.6 Const: General: comfortable and no acute distress O rientation/consciousness: patient oriented x3 HEENT: Other: Unremarkable Head: Yes normal to inspection Neck: Neck: Yes normal visual inspection Chest: Chest palpation & inspection: normal inspection of the chest Resp: Auscultation: clear to auscultation bilaterally Cardio: Palpation: normal PMI Heart sounds: S1 normal heart sound present, S2 normal heart sound present, no gallops, Murmur heart sound present systolic III/ and at the right sternal border and no rubs GI: Palpation (GI): Soft to palpation Back/Spine/Pelvis: Other: unremarkable Skin: General skin exam: no rashes or lesions noted Neuro: General: patient oriented x3 Extrem: General: Yes normal to inspection Psych: Mental Status: mental status grossly normal Objective Labs and Meds 03/04/25 06:21 03/04/25 06:21 Lab results: Laboratory Results - last 24 hr 03/03/25 03/03/25 03/03/25 10:10 16:45 18:49 WBC RBC Hgb Hct MCV MCH MCHC RDW Plt Count MPV Immature Gran % (Auto) Neut % (Auto) Lymph % (Auto) [place] % (Auto) Eos % (Auto) Baso % (Auto) Lymph # (Auto) [place] # (Auto) Eos # (Auto) Baso # (Auto) Abs Immat Gran (auto) Absolute Neuts (auto) Absolute Nucleated RBC Nucleated RBC % (auto) Sodium Potassium Chloride Carbon Dioxide Anion Gap BUN Creatinine Estim Creat Clear Calc Estimated GFR POC Glucose 84 Random Glucose Calcium Phosphorus Magnesium Troponin I High Sens 44.6 H 83.4 H* D 03/03/25 03/04/25 03/04/25 19:55 06:21 07:06 WBC 6.8 RBC 2.86 L Hgb 8.6 L Hct 26.4 L MCV 92.3 MCH 30.1 MCHC 32.6 RDW 15.3 Plt Count 191 MPV 11.0 Immature Gran % (Auto) 0.4 Neut % (Auto) 77.6 H Lymph % (Auto) 13.8 L [place] % (Auto) 7.0 Eos % (Auto) 0.9 Baso % (Auto) 0.3 Lymph # (Auto) 0.9 L [place] # (Auto) 0.5 Eos # (Auto) 0.1 Baso # (Auto) 0.0 Abs Immat Gran (auto) 0.03 Absolute Neuts (auto) 5.3 Absolute Nucleated RBC 0.000 Nucleated RBC % (auto) 0.0 Sodium 140 Potassium 4.8 Chloride 98 Carbon Dioxide 27 Anion Gap 20 BUN 73 H Creatinine 7.33 H* Estim Creat Clear Calc 5.7 Estimated GFR 5 POC Glucose 215 H 112 Random Glucose 84 Calcium 10.4 H Phosphorus 4.8 H Magnesium 2.5 Troponin I High Sens 64.5 H* ECG Interpretation: EKG today shows sinus rhythm with no ischemic changes. One of the EKGs from yesterday had shown right bundle-branch block. There was minimal ST-depression yesterday but today seems to be back to baseline. Assessment and Plan (1) Hypertensive emergency: Status: Acute (2) Non-ST elevation PA (NSTEMI): Status: Acute (3) Aortic stenosis: Status: Acute (4) ESRD (end stage renal disease) on dialysis: Status: Acute Plan Overall, poorly controlled hypertension, dialysis patient, chest pain probably related to high blood pressures in the setting of extensive coronary disease history. Home blood pressure meds include carvedilol, amlodipine, isosorbide mononitrate, hydralazine. We can optimize her medical regimen. We can go up on the carvedilol,, nitrates and hydralazine and optimize her blood pressure. Keep her on heparin drip for 48 hours. We discussed about possible transferred to [facility] if needed but she states that she would not want that and would like to be managed only at [place]. Discussed using registration specialist. We will reassess tomorrow. Procedures Date of Service Date of Service: 03/04/25
--- NOTE | 2025-03-04 10:45 | HO.PM.IMPN ---
Subjective Subjective Date of Service: 03/04/25 Interval History: 71 years old woman with past medical history significant for end-stage renal disease on hemodialysis (TTS), CAD status post CABG, HFpEF, type 2 diabetes mellitus, obstructive sleep apnea and chronic anemia seen in follow up for NSTEMI and hypertension. Patient is seen in dialysis, she is sleeping, easily arousable, denies any pain or discomfort. Assisted with visit with Yaneth who provided soft top installer services. She is in no acute distress, appears comfortable. Continues on O2 at 2 L a minute. Lungs are clear Review of Systems Denies any shortness of breath, chest pain, dizziness, lightheadedness, abdominal pain or discomfort, nausea vomiting or diarrhea Physical Exam Exam: Exam: CONST: Alert and oriented, in NAD. Well nourished HEENT: Normocephalic, atraumatic, MMM RESP: Lungs clear, RRR even and regular HEART: Heart sounds: S1, S2 , no gallops, + Murmur at the right sternal border GI:Abdomen Soft NT, ND. + BS times four :Deferred SKIN: Warm dry and intact, no visible lesions or rashes NEURO:CN II-XII Intact bilaterally, Sensation intact. Speech clear PSYCH: Normal affect Vital Signs: Vital Signs: Last Vital Signs Temp 98.2 F 03/04/25 07:44 Pulse 94 03/04/25 08:09 Resp 16 03/04/25 08:09 BP 120/75 03/04/25 08:07 Pulse Ox 92 03/04/25 07:44 O2 Del Method Nasal Cannula 03/04/25 07:44 O2 Flow Rate 2 03/04/25 07:44 BMI result Body Mass Index 22.3 Objective Data Active Medications Acetaminophen (Acetaminophen 325 Mg Tablet) 975 mg PO Q6H PRN PRN Reason: Pain, Mild 1-3,fever,headache Last Admin: 03/03/25 21:15 Dose: 975 mg Documented By: GIULIANO Amlodipine Besylate (Amlodipine Besylate 10 Mg Tablet) 10 mg PO DAILY [facility]; Protocol Last Admin: 03/04/25 08:07 Dose: 10 mg Documented By: SASCHA Ascorbic Acid (Ascorbic Acid 500 Mg Tablet) 500 mg PO DAILY [facility] Last Admin: 03/04/25 08:07 Dose: 500 mg Documented By: SASCHA Aspirin (Aspirin Enteric Coated 81 Mg Tablet.) 81 mg PO BEDTIME [facility] Last Admin: 03/03/25 19:51 Dose: 81 mg Documented By: GIULIANO Atorvastatin Calcium (Atorvastatin Calcium 80 Mg Tablet) 80 mg PO BEDTIME [facility] Last Admin: 03/03/25 21:11 Dose: 80 mg Documented By: GIULIANO Calcium Carbonate (Calcium Carbonate 750 Mg Tab.Chew) 750 mg PO Q4H PRN PRN Reason: Heartburn Carvedilol (Carvedilol 6.25 Mg Tablet) 6.25 mg PO BID [facility]; Protocol Dextrose (Dextrose 50 % 25 Gm/50 Ml Syringe) 25 gm IVPUSH Q15M PRN; Protocol PRN Reason: per Hypoglycemia Standing Ord. Docusate Sodium (Docusate Sodium 100 Mg Capsule) 100 mg PO BID PRN PRN Reason: Constipation Ezetimibe (Ezetimibe 10 Mg Tablet) 10 mg PO DAILY [facility] Last Admin: 03/04/25 08:07 Dose: 10 mg Documented By: SASCHA Fluticasone/Vilanterol (Fluticasone/Vilanterol 100/25 Blst.W.Dev) 1 puff INHALE RDAILY [facility] Last Admin: 03/04/25 08:07 Dose: 1 puff Documented By: BREA Glucose (Glucose Gel 15 Gm Gel..Gram.) 15 gm PO Q15M PRN; Protocol PRN Reason: per Hypoglycemia Standing Ord. Heparin Sodium (Porcine) (Heparin Sodium,Porcine 5,000 Unit/Ml Vial) 2,100 unit 40 unit/kg (2100 unit) IVPUSH PROTOCOL BOLUS PRN; Protocol PRN Reason: 40 unit/kg - Heparin Protocol Heparin Sodium (Porcine) (Heparin Sodium,Porcine 5,000 Unit/Ml Vial) 4,300 unit 80 unit/kg (4300 unit) IVPUSH PROTOCOL BOLUS PRN; Protocol PRN Reason: 80 unit/kg - Heparin Protocol Hydralazine HCl (Hydralazine Hcl 50 Mg Tablet) 50 mg PO TID [facility]; Protocol Heparin Sodium/Sodium Chloride (Heparin Sodium,Porcine/1/2ns) 25,000 unit in 250 mls @ 0 mls/hr IVCONT .Q0M [facility]; Protocol Insulin Glargine (Insulin Glargine,Hum.Rec.Anlog 100 Unit/Ml 10 Ml Vial) 8 unit SUBCUT DAILY [facility] Last Admin: 03/04/25 08:07 Dose: 8 unit Documented By: SASCHA Insulin Glargine (Insulin Glargine,Hum.Rec.Anlog 100 Unit/Ml 10 Ml Vial) 7 unit SUBCUT BEDTIME [facility] Insulin Human Lispro (Insulin Lispro 100 Unit/Ml 3 Ml Vial) 0 unit SUBCUT QIDACHS [facility]; Protocol Last Admin: 03/04/25 08:06 Dose: Not Given Documented By: SASCHA Non-Admin Reason: No Insulin Coverage Isosorbide Mononitrate (Isosorbide Mononitrate 60 Mg Tab.Er.24h) 60 mg PO DAILY [facility]; Protocol Magnesium Hydroxide (Milk Of Magnesia 30 Ml Oral.Susp) 30 ml PO DAILY PRN PRN Reason: Constipation Melatonin (Melatonin 3 Mg Tablet) 6 mg PO BEDTIME PRN PRN Reason: Insomnia Last Admin: 03/04/25 03:19 Dose: 6 mg Documented By: GIULIANO Montelukast Sodium (Montelukast Sodium 10 Mg Tablet) 10 mg PO BEDTIME [facility] Last Admin: 03/03/25 22:23 Dose: 10 mg Documented By: GIULIANO Nitroglycerin (Nitroglycerin 0.4 Mg Tab.Subl) 0.4 mg SUBLINGUAL Q5MX3 PRN PRN Reason: Chest Pain Last Admin: 03/03/25 21:11 Dose: 0.4 mg Documented By: GIULIANO Omeprazole (Omeprazole 20 Mg Capsule.Dr) 20 mg PO DAILY@0630 [facility] Last Admin: 03/04/25 05:30 Dose: 20 mg Documented By: BEBA Sertraline HCl (Sertraline Hcl 50 Mg Tablet) 150 mg PO DAILY [facility] Last Admin: 03/04/25 08:07 Dose: 150 mg Documented By: SASCHA Sevelamer Carbonate (Sevelamer Carbonate Tablet 800 Mg Tablet) 800 mg PO TIDWM@0800,1200,1700 [facility] Last Admin: 03/04/25 08:10 Dose: 800 mg Documented By: SASCHA Sodium Chloride (0.9 % Sodium Chloride Flush 3 Ml Syringe) 3 ml IVFLUSH QSHIFT [facility] Last Admin: 03/04/25 08:08 Dose: 3 ml Documented By: SASCHA Ticagrelor (Ticagrelor 90 Mg Tablet) 90 mg PO BID [facility] Last Admin: 03/04/25 08:07 Dose: 90 mg Documented By: SASCHA Vitamin D (Cholecalciferol (Vitamin D3) 25 Mcg Tablet) 25 mcg PO DAILY [facility] Last Admin: 03/04/25 08:07 Dose: 25 mcg Documented By: SASCHA Labs 03/04/25 10:39 03/04/25 06:21 Labs: Laboratory Results - last 24 hr 03/03/25 03/03/25 03/04/25 16:45 19:55 06:21 MCV 92.3 MCH 30.1 MCHC 32.6 RDW 15.3 Plt Count 191 MPV 11.0 Immature Gran % (Auto) 0.4 Neut % (Auto) 77.6 H Lymph % (Auto) 13.8 L [place] % (Auto) 7.0 Eos % (Auto) 0.9 Baso % (Auto) 0.3 Lymph # (Auto) 0.9 L [place] # (Auto) 0.5 Eos # (Auto) 0.1 Baso # (Auto) 0.0 Abs Immat Gran (auto) 0.03 Absolute Neuts (auto) 5.3 Absolute Nucleated RBC 0.000 Nucleated RBC % (auto) 0.0 Anion Gap 20 Estim Creat Clear Calc 5.7 Estimated GFR 5 POC Glucose 84 215 H Random Glucose 84 Calcium 10.4 H Phosphorus 4.8 H Magnesium 2.5 03/04/25 07:06 MCV MCH MCHC RDW Plt Count MPV Immature Gran % (Auto) Neut % (Auto) Lymph % (Auto) [place] % (Auto) Eos % (Auto) Baso % (Auto) Lymph # (Auto) [place] # (Auto) Eos # (Auto) Baso # (Auto) Abs Immat Gran (auto) Absolute Neuts (auto) Absolute Nucleated RBC Nucleated RBC % (auto) Anion Gap Estim Creat Clear Calc Estimated GFR POC Glucose 112 Random Glucose Calcium Phosphorus Magnesium Assessment and Plan (1) Non-ST elevation SD (NSTEMI): Status: Acute Plan Kavitha Padilla this is a 71 y/o woman with a PMHx significant for ESRD on HD (TTS) and HFpEF, type 2 diabetes, hypertension, chronic anemia, SHELIA, hyperlipidemia, CAD with status post CABG, GERD, asthma and depression presents with acute hypoxic respiratory failure and non ST-elevation SD. Non ST-elevation SD ECG showed no acute ischemia., Labs with no electrolyte imbalances. Glucose is 119. Troponins on admit 24.6, 32.2, and 44.6 Repeated and showed 83.4, and 64.5. Continue heparin drip times 48 hours. Patient declined transferred to [facility] and would like to be managed here in [facility]. Seen by Cardiology, recommendations appreciated. Cardiology follow up outpatient Acute hypoxic respiratory failure [place] secondary to fluid overload related to chronic diastolic congestive heart failure as evidenced by cardiomegaly, pulmonary vascular congestion and trace bilateral pleural effusions on x-ray Continue Telemetry, no events reported. Supplemental oxygen to keep O2 sats > 90% wean as appropriate. Chest x-ray without evidence of pneumonia Received ultrafiltration, now at dialysis. Followed by Dr. Powell Hypertension/HLD Continue Amlodipine Hydralazine increased to 50 mg t.i.d. Carvedilol increased to 6.25 b.i.d. Imdur increased to 60 mg daily Continue Statin Blood pressure stable. Type 2 diabetes mellitus. Continue Lantus and insulin sliding scale. Diabetic diet. ESRD on HD Nephrology consult for inpatient hemodialysis. Follow labs. Dialysis today Chronic anemia Hgb 8.3. Follow daily, now on Heparin History of GI bleeding Obstructive sleep apnea Not using CPAP due to intolerance. CAD s/p CABG Continue Brilinta, aspirin and statin. GERD Continue PPI. Asthma Mild intermittent. Continue home inhalers and montelukast. Depression Continue Zoloft. DVT prophylaxis: SCDs only (pt takes Brilinta and aspirin -hx of GIB). On Heparin Code status: Full Patient will need continued hospitalization for acute hypoxic respiratory treatment and NSTEMI associated with uncontrolled hypertension with supplemental oxygen, ultrafiltration and close monitoring of vital signs. Quality Stroke Does the patient have a stroke diagnosis?: No VTE Prior VTE?: No VTE Risk Level:: Medical - moderate - high VTE Device Contraindication: N/A - Device Ordered VTE Drug Contraindication: N/A - Med Ordered
[2025-03-04 10:50] LABS: Hematocrit 24.6 % (37.0-47.0); Hemoglobin 8.3 g/dl (12.0-16.0); Mean Corpuscular HGB Conc 33.7 g/dl (31.0-35.0); Mean Corpuscular Hemoglobin 30.2 pg (27.0-33.0); Mean Corpuscular Volume 89.5 fL (80.0-98.0); NRBC Abs Auto 0.000 X10*3/uL (0.0-0.012); NRBC Pct Auto 0.0 /100WBC (0.0-0.2); Platelet Count 178 X10*3/uL (160-400); Red Blood Count 2.75 X10*6/uL (4.20-5.50); White Blood Count 6.0 X10*3/uL (4.8-10.8)
[2025-03-04 10:55] LABS: INTERNATIONAL NORM RATIO 1.0 (0.9-1.1); Prothrombin Time 11.9 SEC (10.9-12.4)
[2025-03-04 10:57] LABS: PTT Heparin Drip 29.3 SEC (53-77.9)
[2025-03-04 11:36] LABS: Glucose, Whole Blood 85 mg/dL (60-115)
--- NOTE | 2025-03-04 12:00 | CA_ITS ---
Transthoracic Echocardiogram Patient (Last, First, Middle): Kavitha Pdailla, Gender: Female Date of : 1955 Age: 70 Procedure Date: 03/04/2025 Procedure Type: Transthoracic Echocardiogram Location: [facility] [place] Height: 154.94 cm Weight: 53.52 kg BSA: 1.51 m2 Heart Rate: 66 bpm BP: 136 / 63 mmHg Plant Health Manager: SB/RC Referring MD: Amrit Wilkerson MD Symptoms: chest pain Study Quality: Adequate w contrast ECG Rhythm: Sinus Conclusions: - The left ventricular systolic function is normal. The calculated ejection fraction is 60% by biplane method. - The basal inferior and basal inferolateral segments are akinetic. - Overall, probable moderate aortic stenosis. Findings Procedure Information Contrast agent, definity, is being given per protocol without apparent complications. Left Ventricle Normal left ventricular cavity size. There is normal left ventricular wall thickness. The left ventricular systolic function is normal. The calculated ejection fraction is 60% by biplane method. There is evidence of regional wall motion abnormalities. Evidence suggests grade II (moderate) diastolic dysfunction. Wall Motion Rest Echo Findings The basal inferior and basal inferolateral segments are akinetic. Right Ventricle Mildly increased right ventricular cavity size. There is mildly decreased right ventricular systolic function. Atria The left atrium is moderately dilated. The right atrium is normal in size. Aortic Valve There is moderate calcification of the aortic valve. There is no aortic valve regurgitation. Dimensionless index 0.43. Stroke volume index 30 mL/m2. Overall, probable moderate aortic stenosis. Mitral Valve There is mild mitral annular calcification. There is no mitral valve regurgitation. There is no mitral valve stenosis. Pulmonic Valve The pulmonic valve is likely normal. Tricuspid Valve Normal tricuspid valve structure. There is mild tricuspid valve regurgitation. There is no evidence of pulmonary hypertension. Great Vessels The asc aorta is normal in size. Small plaque is seen in the sino tubular ridge. Venous The inferior vena cava is normal in size and collapses greater than 50% with inspiration. Pericardium/Pleural There is no evidence of pericardial effusion. Prior Study Comparison No significant change compared to prior study dated: 10/25/2024. Measurements 2D Linear Measurements IVSd: 0.81 0.6-0.9/0.6-1.0 cm LVIDd: 3.95 3.9-5.3/4.2-5.9 cm LVIDd Index: 2.62 2.4-3.2/2.2-3.1 cm/m2 LVIDs: 2.49 2.0-3.6 cm LVPWd: 1.08 0.7-1.1 cm LA Diam: 2.90 2.7-3.8/3.0-4.0 cm LAIDs Index: 1.92 1.5-2.3 cm/m2 LV Mass: 143.47 67-162/88-224 g LV Mass Index: 95.02 43-95/49-115 g/m2 LVOT Diam: 1.60 3.0+(-)1.3 cm 2D Systolic Function EF 4C: 62.50 >55% EF 2C: 55.20 >55% EF BiP: 59.60 >55% Mitral Valve MV VTI: 0.39 MV Pk Anton: 1.38 MV Mn Anton: 0.67 MV Pk Grad: 8.00 MV Mn Grad: 2.00 MV Pk E: 1.07 MV PK A: 1.19 MV Decel Time: 256.00 E/A: 0.90 E'Lateral: 6.09 E'Medial: 3.26 E/E' Med: 32.80 E/E' Lat: 17.60 PHT: 75.00 MVA PHT: 2.93 MVA Continuity: 1.19 Decel [place]: 4.18 Aortic Valve AoV Pk Anton: 2.40 AoV Mn Anton: 1.71 AoV VTI: 0.47 AoV Pk Grad: 23.00 Aov Mn Grad: 14.00 CEDRIC Cont.VTI: 0.98 LVOT LVOT Pk Anton: 1.02 LVOT Mn Anton: 0.67 LVOT VTI: 0.23 LVOT Pk Grad: 4.00 LVOT Mn Grad: 2.00 LVOT Diam: 1.60 LVOT Area: 2.01 Diastolic Function MV Pk E: 1.07 MV Pk A: 1.19 E/A: 0.90 E'Medial: 3.26 E/E' Med: 32.80 E' Laterial: 6.09 E/E' Lat: 17.60 Right Ventricle TAPSE (mm): 13.00 TVS' Anton: 8.49 Tricuspid Valve TR Pk Anton: 2.39 TR Pk Grad: 23.00 RA Press: 3.00 RVSP: 26.00 Great Vessels Aorta Sinus of Valsalva: 2.70 2.0-3.5 cm Ao Asc: 2.90 2.1-3.4 cm Ao Arch: 2.90 Pulmonary Valve PV Pk Anton: 1.22 Peak PV Grad: 6.00 [place] Pk Anton: 1.71 Updated in Other Vendor System with Status of Final Amrit Wilkerson MD electronically signed on 03/04/2025 4:09:55 PM with status of Final
--- NOTE | 2025-03-04 12:16 | ECG_ITS ---
Test Reason : CAD, chest pain Blood Pressure : */* mmHG Vent. Rate : 71 BPM Atrial Rate : 71 BPM P-R Int : 134 ms QRS Dur : 88 ms QT Int : 428 ms P-R-T Axes : 61 22 62 degrees QTcB Int : 465 ms Normal sinus rhythm Septal infarct (cited on or before 04-Mar-2025) Abnormal ECG When compared with ECG of 04-Mar-2025 08:42, No significant change was found Referred By: Josh Stewart Electronically Signed By: JOSH STEWART
[2025-03-04] MEDS: Heparin Sodium,Porcine/1/2NS 25,000 UNIT/250 ML IV.SOLN 6.43 UNIT IVCONT (12:19)
--- NOTE | 2025-03-04 12:50 | MHC.CM.PN ---
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 She goes to [facility] in [facility] for HD on . She said she has a walker for DME. PCP is Dr. Ingram at [facility] [place]. She does not use VNA services. Her niece will transport her home at [place], DCP: home, resume LINUX ENGINEER and adult foster care. CM to follow for DC needs.
--- NOTE | 2025-03-04 13:14 | MHC.CM.PN ---
CM received a call from [facility] in [place] requesting clinical info to be faxed to them, H&P sent via fax today. ph: [phone], fax #: [phone]
[2025-03-04 16:31] LABS: Glucose, Whole Blood 133 mg/dL (60-115)
[2025-03-04 18:46] LABS: PTT Heparin Drip 45.8 SEC (53-77.9)
[2025-03-04 20:20] LABS: Glucose, Whole Blood 166 mg/dL (60-115)
[2025-03-04] MEDS: Aspirin Enteric Coated 81 MG TABLET.DR PO (21:06)
[2025-03-04] MEDS: Insulin Glargine,Hum.rec.anlog 100 UNIT/ML 10 ML VIAL 7 UNIT SUBCUT (21:07)
[2025-03-05] VITALS (16 sets, daily range): BP systolic 101–196; BP diastolic 52–87; PULSE 54–66; RESP 12–20; TEMP 36.2–37.1; O2SAT 93–100
[2025-03-05 01:37] LABS: PTT Heparin Drip 64.1 SEC (53-77.9)
[2025-03-05 07:40] LABS: Glucose, Whole Blood 71 mg/dL (60-115)
[2025-03-05 07:47] LABS: Hematocrit 26.0 % (37.0-47.0); Hemoglobin 8.5 g/dl (12.0-16.0); Mean Corpuscular HGB Conc 32.7 g/dl (31.0-35.0); Mean Corpuscular Hemoglobin 30.0 pg (27.0-33.0); Mean Corpuscular Volume 91.9 fL (80.0-98.0); NRBC Abs Auto 0.000 X10*3/uL (0.0-0.012); NRBC Pct Auto 0.0 /100WBC (0.0-0.2); Platelet Count 185 X10*3/uL (160-400); Red Blood Count 2.83 X10*6/uL (4.20-5.50); White Blood Count 6.0 X10*3/uL (4.8-10.8)
[2025-03-05] MEDS: Fluticasone/Vilanterol 100/25 BLST.W.DEV 1 PUFF INHALE (07:53)
[2025-03-05 08:02] LABS: INTERNATIONAL NORM RATIO 1.0 (0.9-1.1); Prothrombin Time 11.7 SEC (10.9-12.4)
[2025-03-05 08:05] LABS: PTT Heparin Drip 53.0 SEC (53-77.9)
[2025-03-05] MEDS: 0.9 % Sodium Chloride Flush 3 ML SYRINGE IVFLUSH ×2 (08:31→21:03)
[2025-03-05] MEDS: Insulin Glargine,Hum.rec.anlog 100 UNIT/ML 10 ML VIAL 8 UNIT SUBCUT (08:32)
[2025-03-05] MEDS: Sevelamer Carbonate Tablet 800 MG TABLET PO ×3 (08:32→17:11)
[2025-03-05 09:31] LABS: MANUAL DIFF FLAG NO
[2025-03-05 09:34] LABS: Hematocrit 23.0 % (37.0-47.0); Hemoglobin 7.8 g/dl (12.0-16.0); Imm Gran Abs Auto 0.01 X10*3/uL (0.00-0.03); Imm Gran Pct Auto 0.2 % (0.0-0.4); Lymphocytes Absolute Auto 0.9 X10*3/uL (1.2-4.9); Mean Corpuscular HGB Conc 33.9 g/dl (31.0-35.0); Mean Corpuscular Hemoglobin 30.5 pg (27.0-33.0); Mean Corpuscular Volume 89.8 fL (80.0-98.0); NRBC Abs Auto 0.000 X10*3/uL (0.0-0.012); NRBC Pct Auto 0.0 /100WBC (0.0-0.2); Platelet Count 177 X10*3/uL (160-400); Red Blood Count 2.56 X10*6/uL (4.20-5.50); White Blood Count 4.8 X10*3/uL (4.8-10.8)
--- NOTE | 2025-03-05 10:06 | PM.PNCARD ---
Subjective Subjective Date of Service: 03/05/25 Interval history: Patient states that she feels better. Still has some low-grade discomfort in the chest but she looks quite comfortable. Review of Systems Review of Systems Yes all other systems are reviewed and are negative Constitutional: Reports as per HPI and Reports no additional constitutional complaints Eyes: Reports as per HPI and Denies no additional eye complaints Denies system reviewed and no additional complaints, except as documented and Reports as per HPI Cardiovascular: Reports as per HPI, Reports no additional cardiovascular complaints, Denies acrocyanosis, Denies cool extremities, Denies chest pain, Denies leg edema, Denies lightheadedness, Denies palpitations and Denies dyspnea Respiratory: Reports as per HPI, Denies no additional respiratory complaints and Denies dyspnea Gastrointestinal: Reports as per HPI and Denies no additional gastrointestinal complaints Genitourinary: Reports as per HPI Musculoskeletal: Reports no additional musculoskeletal complaints and Reports as per HPI Skin/Breast: Reports system reviewed and no additional complaints, except as docu Reports system reviewed and no additional complaints, except as documented and Reports as per HPI Psychiatric: Reports no additional psychiatric complaints and Reports as per HPI Endocrine: Reports no additional endocrine complaints, Reports as per HPI and Denies palpitations Hematologic/Lymphatic: Reports no additional hematologic/lymphatic complaints and Reports as per HPI Allergic/Immunologic: Reports no additional allergic/immunologic complaints and Reports as per HPI Physical Exam Vital Signs: Last Vital Signs Temp 97.3 F 03/05/25 07:27 Pulse 65 03/05/25 08:57 Resp 18 03/05/25 08:12 BP 176/74 H 03/05/25 08:57 Pulse Ox 100 03/05/25 07:27 O2 Del Method Nasal Cannula 03/05/25 07:27 O2 Flow Rate 2 03/05/25 07:27 BMI result Body Mass Index 22.3 Const General: comfortable and no acute distress Orientation/consciousness: patient oriented x3 HEENT Other: Unremarkable Head: Yes normal to inspection Neck Neck: Yes normal visual inspection Chest Chest palpation & inspection: normal inspection of the chest Resp Auscultation: clear to auscultation bilaterally Cardio Palpation: normal PMI Heart sounds: S1 normal heart sound present, S2 normal heart sound present, no gallops, Murmur heart sound present systolic III/ and at the right sternal border and no rubs GI Palpation (GI): Soft to palpation Back/Spine/Pelvis Other: unremarkable Skin General skin exam: no rashes or lesions noted Neuro General: patient oriented x3 Extrem General: Yes normal to inspection Psych Mental Status: mental status grossly normal Objective Labs and Meds 03/05/25 09:18 03/04/25 06:21 Lab results: Laboratory Results - last 24 hr 03/04/25 03/04/25 03/04/25 10:39 11:29 16:23 WBC 6.0 RBC 2.75 L Hgb 8.3 L Hct 24.6 L MCV 89.5 MCH 30.2 MCHC 33.7 RDW 15.2 Plt Count 178 MPV 10.2 Immature Gran % (Auto) Neut % (Auto) Lymph % (Auto) [place] % (Auto) Eos % (Auto) Baso % (Auto) Lymph # (Auto) [place] # (Auto) Eos # (Auto) Baso # (Auto) Abs Immat Gran (auto) Absolute Neuts (auto) Absolute Nucleated RBC 0.000 Nucleated RBC % (auto) 0.0 PT 11.9 INR 1.0 aPTT Heparin Protocol 29.3 L POC Glucose 85 133 H 03/04/25 03/04/25 03/05/25 18:19 20:16 01:10 WBC RBC Hgb Hct MCV MCH MCHC RDW Plt Count MPV Immature Gran % (Auto) Neut % (Auto) Lymph % (Auto) [place] % (Auto) Eos % (Auto) Baso % (Auto) Lymph # (Auto) [place] # (Auto) Eos # (Auto) Baso # (Auto) Abs Immat Gran (auto) Absolute Neuts (auto) Absolute Nucleated RBC Nucleated RBC % (auto) PT INR aPTT Heparin Protocol 45.8 L D 64.1 D POC Glucose 166 H 03/05/25 03/05/25 03/05/25 07:26 07:34 09:18 WBC 6.0 4.8 RBC 2.83 L 2.56 L Hgb 8.5 L 7.8 L Hct 26.0 L 23.0 L MCV 91.9 89.8 MCH 30.0 30.5 MCHC 32.7 33.9 RDW 15.1 15.0 Plt Count 185 177 MPV 10.9 10.1 Immature Gran % (Auto) 0.2 Neut % (Auto) 75.9 H Lymph % (Auto) 18.1 L [place] % (Auto) 5.0 Eos % (Auto) 0.4 Baso % (Auto) 0.4 Lymph # (Auto) 0.9 L [place] # (Auto) 0.2 Eos # (Auto) 0.0 Baso # (Auto) 0.0 Abs Immat Gran (auto) 0.01 Absolute Neuts (auto) 3.6 Absolute Nucleated RBC 0.000 0.000 Nucleated RBC % (auto) 0.0 0.0 PT 11.7 INR 1.0 aPTT Heparin Protocol 53.0 POC Glucose 71 Progress Note: A&P Assessment and plan (1) Hypertensive emergency: Status: Acute (2) Non-ST elevation [place] (NSTEMI): Status: Acute (3) Aortic stenosis: Status: Acute (4) ESRD (end stage renal disease) on dialysis: Status: Acute (5) GI (gastrointestinal hemorrhage): Status: Acute Plan Overall, poorly controlled hypertension, dialysis patient, chest pain probably related to high blood pressures in the setting of extensive coronary disease history. Home blood pressure meds include carvedilol, amlodipine, isosorbide mononitrate, hydralazine. We had increased her meds yesterday including carvedilol, Imdur as well as hydralazine but today's blood pressure is still high. We will need to go up on the meds even further. She was not heparin drip but according to message from hospitalist EDITOR MANAGING NEWSPAPER, patient apparently had a GI bleed and hence we need to stop that. If able, continue aspirin/Brilinta but if not may have to stop that too. We also discussed about transferred to [facility] yesterday and today and she states that she would not want to go and would like to just get treated at [facility] with the resources available. Overall, difficult case with many comorbidities and high-risk of decompensation. Discussed with patient using cash register mechanic. Discussed with RN. Time Spent With Patient Time: Total time managing care of this patient today ____ minutes. Progress Note: Quality Stroke Does the patient have a stroke diagnosis?: No Procedures Date of Service Date of Service: 03/05/25
--- NOTE | 2025-03-05 10:58 | P.PNIM_ITS ---
Subjective Subjective Date of Service: 03/05/25 Interval History: Patient had an episode of bloody stool this morning, heparin drip DC, cardiology made aware. Protonix ordered. Her vital signs are stable, no tachycardia denies any abdominal pain or discomfort. No hematemesis. Cardiology updated. Blood pressure remains elevated, Cardiology recommended increase in blood pressure medications. Hemoglobin noted to be 7.8. 1 unit of packed red blood cells ordered. Continues on sinus rhythm on the monitor. Denies any shortness of breath, chest pain. Denies abdominal pain. Review of Systems Denies any shortness of breath, chest pain, dizziness, lightheadedness, abdominal pain or discomfort, nausea vomiting or diarrhea Physical Exam 2 Exam: Exam: CONST: Alert and oriented, in NAD. Well nourished HEENT: Normocephalic, atraumatic, MMM, Eyes clear, Neck supple RESP: Lungs clear, RRR even and regular HEART:,RRR, S1, S2. No murmur, no edema GI:Abdomen Soft NT, ND. + BS times four :Deferred SKIN: Warm dry and intact, no visible lesions or rashes NEURO:CN II-XII Intact bilaterally, Sensation intact. Speech clear PSYCH: Normal affect Vital Signs: Vital Signs: Last Vital Signs Temp 97.3 F 03/05/25 07:27 Pulse 65 03/05/25 08:57 Resp 18 03/05/25 08:12 BP 176/74 H 03/05/25 08:57 Pulse Ox 100 03/05/25 07:27 O2 Del Method Nasal Cannula 03/05/25 07:27 O2 Flow Rate 2 03/05/25 07:27 BMI result Body Mass Index 22.3 Objective Data Active Medications Acetaminophen (Acetaminophen 325 Mg Tablet) 975 mg PO Q6H PRN PRN Reason: Pain, Mild 1-3,fever,headache Last Admin: 03/03/25 21:15 Dose: 975 mg Documented By: GIULIANO Amlodipine Besylate (Amlodipine Besylate 10 Mg Tablet) 10 mg PO DAILY [facility]; Protocol Last Admin: 03/05/25 08:31 Dose: 10 mg Documented By: SASCHA Ascorbic Acid (Ascorbic Acid 500 Mg Tablet) 500 mg PO DAILY [facility] Last Admin: 03/05/25 08:32 Dose: 500 mg Documented By: SASCHA Aspirin (Aspirin Enteric Coated 81 Mg Tablet.) 81 mg PO BEDTIME [facility] Last Admin: 03/04/25 21:06 Dose: 81 mg Documented By: NONI Atorvastatin Calcium (Atorvastatin Calcium 80 Mg Tablet) 80 mg PO BEDTIME [facility] Last Admin: 03/04/25 21:06 Dose: 80 mg Documented By: NONI Calcium Carbonate (Calcium Carbonate 750 Mg Tab.Chew) 750 mg PO Q4H PRN PRN Reason: Heartburn Carvedilol (Carvedilol 12.5 Mg Tablet) 12.5 mg PO BID [facility]; Protocol Dextrose (Dextrose 50 % 25 Gm/50 Ml Syringe) 25 gm IVPUSH Q15M PRN; Protocol PRN Reason: per Hypoglycemia Standing Ord. Diphenhydramine HCl (Diphenhydramine Hcl 25 Mg Capsule) 25 mg PO Q8H PRN PRN Reason: Itching Docusate Sodium (Docusate Sodium 100 Mg Capsule) 100 mg PO BID PRN PRN Reason: Constipation Ezetimibe (Ezetimibe 10 Mg Tablet) 10 mg PO DAILY [facility] Last Admin: 03/05/25 08:32 Dose: 10 mg Documented By: SASCHA Fluticasone/Vilanterol (Fluticasone/Vilanterol 100/25 Blst.W.Dev) 1 puff INHALE RDAILY [facility] Last Admin: 03/05/25 07:53 Dose: 1 puff Documented By: MARIELA Glucose (Glucose Gel 15 Gm Gel..Gram.) 15 gm PO Q15M PRN; Protocol PRN Reason: per Hypoglycemia Standing Ord. Hydralazine HCl (Hydralazine Hcl 25 Mg Tablet) 75 mg PO TID [facility]; Protocol Insulin Glargine (Insulin Glargine,Hum.Rec.Anlog 100 Unit/Ml 10 Ml Vial) 8 unit SUBCUT DAILY [facility] Last Admin: 03/05/25 08:32 Dose: 8 unit Documented By: SASCHA Insulin Glargine (Insulin Glargine,Hum.Rec.Anlog 100 Unit/Ml 10 Ml Vial) 7 unit SUBCUT BEDTIME [facility] Last Admin: 03/04/25 21:07 Dose: 7 unit Documented By: NONI Insulin Human Lispro (Insulin Lispro 100 Unit/Ml 3 Ml Vial) 0 unit SUBCUT QIDACHS [facility]; Protocol Last Admin: 03/05/25 08:23 Dose: Not Given Documented By: SASCHA Non-Admin Reason: No Insulin Coverage Isosorbide Mononitrate (Isosorbide Mononitrate 60 Mg Tab.Er.24h) 60 mg PO DAILY [facility]; Protocol Last Admin: 03/05/25 08:32 Dose: 60 mg Documented By: SASCHA Magnesium Hydroxide (Milk Of Magnesia 30 Ml Oral.Susp) 30 ml PO DAILY PRN PRN Reason: Constipation Melatonin (Melatonin 3 Mg Tablet) 6 mg PO BEDTIME PRN PRN Reason: Insomnia Last Admin: 03/04/25 03:19 Dose: 6 mg Documented By: GIULIANO Montelukast Sodium (Montelukast Sodium 10 Mg Tablet) 10 mg PO BEDTIME [facility] Last Admin: 03/04/25 21:06 Dose: 10 mg Documented By: NONI Nitroglycerin (Nitroglycerin 0.4 Mg Tab.Subl) 0.4 mg SUBLINGUAL Q5MX3 PRN PRN Reason: Chest Pain Last Admin: 03/03/25 21:11 Dose: 0.4 mg Documented By: GIULIANO Pantoprazole Sodium (Pantoprazole Sodium 40 Mg/10 Ml Vial) 40 mg IVPUSH BID@0630,1630 [facility] Sertraline HCl (Sertraline Hcl 50 Mg Tablet) 150 mg PO DAILY [facility] Last Admin: 03/05/25 08:31 Dose: 150 mg Documented By: SASCHA Sevelamer Carbonate (Sevelamer Carbonate Tablet 800 Mg Tablet) 800 mg PO TIDWM@0800,1200,1700 [facility] Last Admin: 03/05/25 08:32 Dose: 800 mg Documented By: SASCHA Sodium Chloride (0.9 % Sodium Chloride Flush 3 Ml Syringe) 3 ml IVFLUSH QSHIFT [facility] Last Admin: 03/05/25 08:31 Dose: 3 ml Documented By: SASCHA Ticagrelor (Ticagrelor 90 Mg Tablet) 90 mg PO BID [facility] Last Admin: 03/05/25 08:31 Dose: 90 mg Documented By: SASCHA Vitamin D (Cholecalciferol (Vitamin D3) 25 Mcg Tablet) 25 mcg PO DAILY [facility] Last Admin: 03/05/25 08:31 Dose: 25 mcg Documented By: SASCHA Labs 03/05/25 09:18 03/04/25 06:21 Labs: Laboratory Results - last 24 hr 03/04/25 03/04/25 03/04/25 11:29 16:23 18:19 MCV MCH MCHC RDW Plt Count MPV Immature Gran % (Auto) Neut % (Auto) Lymph % (Auto) [place] % (Auto) Eos % (Auto) Baso % (Auto) Lymph # (Auto) [place] # (Auto) Eos # (Auto) Baso # (Auto) Abs Immat Gran (auto) Absolute Neuts (auto) Absolute Nucleated RBC Nucleated RBC % (auto) PT INR aPTT Heparin Protocol 45.8 L D POC Glucose 85 133 H Crossmatch 03/04/25 03/05/25 03/05/25 20:16 01:10 07:26 MCV 91.9 MCH 30.0 MCHC 32.7 RDW 15.1 Plt Count 185 MPV 10.9 Immature Gran % (Auto) Neut % (Auto) Lymph % (Auto) [place] % (Auto) Eos % (Auto) Baso % (Auto) Lymph # (Auto) [place] # (Auto) Eos # (Auto) Baso # (Auto) Abs Immat Gran (auto) Absolute Neuts (auto) Absolute Nucleated RBC 0.000 Nucleated RBC % (auto) 0.0 PT 11.7 INR 1.0 aPTT Heparin Protocol 64.1 D 53.0 POC Glucose 166 H Crossmatch 03/05/25 03/05/25 03/05/25 07:34 09:18 10:06 MCV 89.8 MCH 30.5 MCHC 33.9 RDW 15.0 Plt Count 177 MPV 10.1 Immature Gran % (Auto) 0.2 Neut % (Auto) 75.9 H Lymph % (Auto) 18.1 L [place] % (Auto) 5.0 Eos % (Auto) 0.4 Baso % (Auto) 0.4 Lymph # (Auto) 0.9 L [place] # (Auto) 0.2 Eos # (Auto) 0.0 Baso # (Auto) 0.0 Abs Immat Gran (auto) 0.01 Absolute Neuts (auto) 3.6 Absolute Nucleated RBC 0.000 Nucleated RBC % (auto) 0.0 PT INR aPTT Heparin Protocol POC Glucose 71 Crossmatch See Detail Assessment and Plan (1) Non-ST elevation MS (NSTEMI): Status: Acute Plan Kavitha Padilla this is a 70 y/o woman with a PMHx significant for ESRD on HD (TTS) and HFpEF, type 2 diabetes, hypertension, chronic anemia, SHELIA, hyperlipidemia, CAD with status post CABG, GERD, asthma and depression presents with acute hypoxic respiratory failure and non ST-elevation MS. patient was started on a heparin drip, today with 2 episodes of bloody stools. heparin DC. Lower GI bleeding Heparin DC, cardiology made aware Protonix 40 mg b.i.d. Received Prilosec this morning. Stat CBC demonstrated hemoglobin 7.8, 1 unit of packed red blood cells ordered. CBC to be repeated. GI consulted, patient made NPO. Dr. Luna made aware. No plans for Brilinta and aspirin on hold Abdominal pelvis CTA Non ST-elevation MS ECG showed no acute ischemia., Labs with no electrolyte imbalances. Glucose is 119. Troponins on admit 24.6, 32.2, and 44.6 Repeated and showed 83.4, and 64.5. Heparin drip DC Patient declined transferred to [facility] and would like to be managed here in [facility]. Seen by Cardiology, recommendations to increase blood pressure medications due to uncontrolled BP We will need close cardiology follow up outpatient Aspirin and Brilinta placed on hold due to GI bleed Sinus Rhythm on Tele. Acute hypoxic respiratory failure [place] secondary to fluid overload related to chronic diastolic congestive heart failure as evidenced by cardiomegaly, pulmonary vascular congestion and trace bilateral pleural effusions on x-ray Sinus Rhythm on Tele Supplemental oxygen to keep O2 sats > 90% wean as appropriate. Chest x-ray without evidence of pneumonia Dialysis T-T-S Followed by [facility] Appears Euvolemic on exam. Lasix 80 mg p.o. b.i.d. Hypertension/HLD Continue Amlodipine Hydralazine increased to 75 mg t.i.d. Hold secondary to low BP Carvedilol increased to 12.5 b.i.d. Imdur 60 mg daily Continue Statin Blood pressure stable. Type 2 diabetes mellitus. Continue Lantus and insulin sliding scale. Diabetic diet. ESRD on HD Nephrology consult for inpatient hemodialysis. Follow labs. Dialysis Monday- -Monday Acute on chronic anemia Hgb 8.3. Follow daily. Heparin DC due to bloody stool Patient with history of GI bleeding Previously on aspirin and Brilinta, these are now on hold as well, question being able to restart these due to her history of GI bleeding. Obstructive sleep apnea Not using CPAP due to intolerance. CAD s/p CABG Hold Brilinta, aspirin and statin. Due to risk of bleeding unclear whether Brilinta and aspirin we will be able to be continued. GERD Continue PPI. Asthma Mild intermittent. Continue home inhalers and montelukast. Depression Continue Zoloft. DVT prophylaxis: SCDs only Code status: Full Patient will need continued hospitalization for acute hypoxic respiratory treatment and NSTEMI, developed a GI bleed due to heparin, uncontrolled hypertension with supplemental oxygen, close monitoring of this medically complex patient. Quality Stroke Does the patient have a stroke diagnosis?: No VTE Prior VTE?: No VTE Risk Level:: Medical - moderate - high VTE Device Contraindication: N/A - Device Ordered VTE Drug Contraindication: Treatment Not Tolerated
[2025-03-05 11:46] LABS: Glucose, Whole Blood 223 mg/dL (60-115)
--- NOTE | 2025-03-05 11:57 | PM.PNNEP ---
Subjective Subjective Date of Service: 03/05/25 Interval history: seen and examined no complaints Physical Exam Vital Signs: Vital Signs: Last Vital Signs Temp 97.3 F 03/05/25 11:10 Pulse 63 03/05/25 11:10 Resp 16 03/05/25 11:10 BP 101/52 L 03/05/25 11:10 Pulse Ox 93 03/05/25 11:10 O2 Del Method Room Air 03/05/25 11:10 O2 Flow Rate 2 03/05/25 07:27 BMI result Body Mass Index 22.3 Const: General: no acute distress HEENT: Head: Yes normocephalic and Yes atraumatic Neck: Neck: Yes supple Resp: Auscultation: diminished lung sounds Cardio: Heart sounds: S1 normal heart sound present and S2 normal heart sound present GI: Palpation (GI): Soft to palpation and nontender Extrem: General: No edema Objective Data Labs 03/05/25 09:18 03/04/25 06:21 Labs: Laboratory Results - last 24 hr 03/04/25 03/04/25 03/04/25 16:23 18:19 20:16 WBC RBC Hgb Hct MCV MCH MCHC RDW Plt Count MPV Immature Gran % (Auto) Neut % (Auto) Lymph % (Auto) [place] % (Auto) Eos % (Auto) Baso % (Auto) Lymph # (Auto) [place] # (Auto) Eos # (Auto) Baso # (Auto) Abs Immat Gran (auto) Absolute Neuts (auto) Absolute Nucleated RBC Nucleated RBC % (auto) PT INR aPTT Heparin Protocol 45.8 L D POC Glucose 133 H 166 H Blood Type Antibody Screen Crossmatch 03/05/25 03/05/25 03/05/25 01:10 07:26 07:34 WBC 6.0 RBC 2.83 L Hgb 8.5 L Hct 26.0 L MCV 91.9 MCH 30.0 MCHC 32.7 RDW 15.1 Plt Count 185 MPV 10.9 Immature Gran % (Auto) Neut % (Auto) Lymph % (Auto) [place] % (Auto) Eos % (Auto) Baso % (Auto) Lymph # (Auto) [place] # (Auto) Eos # (Auto) Baso # (Auto) Abs Immat Gran (auto) Absolute Neuts (auto) Absolute Nucleated RBC 0.000 Nucleated RBC % (auto) 0.0 PT 11.7 INR 1.0 aPTT Heparin Protocol 64.1 D 53.0 POC Glucose 71 Blood Type Antibody Screen Crossmatch 03/05/25 03/05/25 03/05/25 09:18 10:06 11:43 WBC 4.8 RBC 2.56 L Hgb 7.8 L Hct 23.0 L MCV 89.8 MCH 30.5 MCHC 33.9 RDW 15.0 Plt Count 177 MPV 10.1 Immature Gran % (Auto) 0.2 Neut % (Auto) 75.9 H Lymph % (Auto) 18.1 L [place] % (Auto) 5.0 Eos % (Auto) 0.4 Baso % (Auto) 0.4 Lymph # (Auto) 0.9 L [place] # (Auto) 0.2 Eos # (Auto) 0.0 Baso # (Auto) 0.0 Abs Immat Gran (auto) 0.01 Absolute Neuts (auto) 3.6 Absolute Nucleated RBC 0.000 Nucleated RBC % (auto) 0.0 PT INR aPTT Heparin Protocol POC Glucose 223 H Blood Type B Positive Antibody Screen NEGATIVE Crossmatch See Detail Procedures Date of Service Date of Service: 03/05/25 Assessment & Plan Assessment and plan (1) ESRD (end stage renal disease) on dialysis: Status: Acute (2) Anemia: Status: Acute (3) Essential hypertension: Status: Acute Time Spent With Patient Time: Total time managing care of this patient today ____ minutes. Progress Note: Quality Stroke Does the patient have a stroke diagnosis?: No
--- NOTE | 2025-03-05 12:02 | PM.CNNEP ---
History of Present Illness Reason for Consult Consult date: 03/05/25 Chief Complaint Chief complaint: Chest Pain, uncontrolled hypertension History of Present Illness Narrative: 70 year old patient with history of ESRD on HD t-t-s admitted with acute coronary syndrome. At the time of the consultation she denies chest pain, shortnes of breath, nausea, vomiting or diarrhea. 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 End stage chronic kidney disease Edema Atherosclerotic cardiovascular disease SHELIA (obstructive sleep apnea) Hypercalcemia Asthma DJD (degenerative joint disease) Chronic kidney disease Other and unspecified hyperlipidemia Type 2 diabetes mellitus with unspecified complications Essential hypertension Family History Family History Father Cardiovascular disease Hypertension Mother Cardiovascular disease Hypertension Surgical History Surgical History History of hemorrhoidectomy (01/30/23) H/O colonoscopy Hemorrhoids H/O angioplasty History of tubal ligation History of coronary artery bypass graft (~2017) Social History Social History Household Members: Children Household Members Other:: Son Housing: Apartment Housing Other:: senior apartment Are you a primary foster care social worker to a significant other at home: No Do you presently have visiting nurse or other home services: No Alcohol intake: never Patient Tobacco Use Status: Never used Tobacco Second Hand Smoke Exposure: No Advance Directives Date on File: 12/03/20 service: No 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al status: disabled 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 Meds Allergies Allergy/AdvReac Type Severity Reaction Status Date / Time No Known Allergies Allergy Verified 03/03/25 03:38 Active Medications: Current Medications Acetaminophen (Acetaminophen 325 Mg Tablet) 975 mg PO Q6H PRN PRN Reason: Pain, Mild 1-3,fever,headache Last Admin: 03/05/25 11:09 Dose: 975 mg Amlodipine Besylate (Amlodipine Besylate 10 Mg Tablet) 10 mg PO DAILY [facility]; Protocol Last Admin: 03/05/25 08:31 Dose: 10 mg Ascorbic Acid (Ascorbic Acid 500 Mg Tablet) 500 mg PO DAILY [facility] Last Admin: 03/05/25 08:32 Dose: 500 mg Aspirin (Aspirin Enteric Coated 81 Mg Tablet.Dr) 81 mg PO BEDTIME [facility] Last Admin: 03/04/25 21:06 Dose: 81 mg Atorvastatin Calcium (Atorvastatin Calcium 80 Mg Tablet) 80 mg PO BEDTIME [facility] Last Admin: 03/04/25 21:06 Dose: 80 mg Calcium Carbonate (Calcium Carbonate 750 Mg Tab.Chew) 750 mg PO Q4H PRN PRN Reason: Heartburn Carvedilol (Carvedilol 12.5 Mg Tablet) 12.5 mg PO BID [facility]; Protocol Dextrose (Dextrose 50 % 25 Gm/50 Ml Syringe) 25 gm IVPUSH Q15M PRN; Protocol PRN Reason: per Hypoglycemia Standing Ord. Diphenhydramine HCl (Diphenhydramine Hcl 25 Mg Capsule) 25 mg PO Q8H PRN PRN Reason: Itching Docusate Sodium (Docusate Sodium 100 Mg Capsule) 100 mg PO BID PRN PRN Reason: Constipation Ezetimibe (Ezetimibe 10 Mg Tablet) 10 mg PO DAILY [facility] Last Admin: 03/05/25 08:32 Dose: 10 mg Fluticasone/Vilanterol (Fluticasone/Vilanterol 100/25 Blst.W.Dev) 1 puff INHALE RDAILY [facility] Last Admin: 03/05/25 07:53 Dose: 1 puff Glucose (Glucose Gel 15 Gm Gel..Gram.) 15 gm PO Q15M PRN; Protocol PRN Reason: per Hypoglycemia Standing Ord. Hydralazine HCl (Hydralazine Hcl 25 Mg Tablet) 75 mg PO TID [facility]; Protocol Insulin Glargine (Insulin Glargine,Hum.Rec.Anlog 100 Unit/Ml 10 Ml Vial) 8 unit SUBCUT DAILY [facility] Last Admin: 03/05/25 08:32 Dose: 8 unit Insulin Glargine (Insulin Glargine,Hum.Rec.Anlog 100 Unit/Ml 10 Ml Vial) 7 unit SUBCUT BEDTIME [facility] Last Admin: 03/04/25 21:07 Dose: 7 unit Insulin Human Lispro (Insulin Lispro 100 Unit/Ml 3 Ml Vial) 0 unit SUBCUT QIDACHS [facility]; Protocol Last Admin: 03/05/25 11:46 Dose: 4 unit Isosorbide Mononitrate (Isosorbide Mononitrate 60 Mg Tab.Er.24h) 60 mg PO DAILY [facility]; Protocol Last Admin: 03/05/25 08:32 Dose: 60 mg Magnesium Hydroxide (Milk Of Magnesia 30 Ml Oral.Susp) 30 ml PO DAILY PRN PRN Reason: Constipation Melatonin (Melatonin 3 Mg Tablet) 6 mg PO BEDTIME PRN PRN Reason: Insomnia Last Admin: 03/04/25 03:19 Dose: 6 mg Montelukast Sodium (Montelukast Sodium 10 Mg Tablet) 10 mg PO BEDTIME [facility] Last Admin: 03/04/25 21:06 Dose: 10 mg Nitroglycerin (Nitroglycerin 0.4 Mg Tab.Subl) 0.4 mg SUBLINGUAL Q5MX3 PRN PRN Reason: Chest Pain Last Admin: 03/03/25 21:11 Dose: 0.4 mg Pantoprazole Sodium (Pantoprazole Sodium 40 Mg/10 Ml Vial) 40 mg IVPUSH BID@0630,1630 [facility] Last Admin: 03/05/25 11:07 Dose: 40 mg Sertraline HCl (Sertraline Hcl 50 Mg Tablet) 150 mg PO DAILY [facility] Last Admin: 03/05/25 08:31 Dose: 150 mg Sevelamer Carbonate (Sevelamer Carbonate Tablet 800 Mg Tablet) 800 mg PO TIDWM@0800,1200,1700 [facility] Last Admin: 03/05/25 11:42 Dose: 800 mg Sodium Chloride (0.9 % Sodium Chloride Flush 3 Ml Syringe) 3 ml IVFLUSH QSHIFT [facility] Last Admin: 03/05/25 08:31 Dose: 3 ml Ticagrelor (Ticagrelor 90 Mg Tablet) 90 mg PO BID [facility] Last Admin: 03/05/25 08:31 Dose: 90 mg Vitamin D (Cholecalciferol (Vitamin D3) 25 Mcg Tablet) 25 mcg PO DAILY [facility] Last Admin: 03/05/25 08:31 Dose: 25 mcg Home Medications ?Medication ?Instructions ?Recorded ?Confirmed ?Last Taken ?Type sertraline 100 mg tablet 150 mg PO DAILY 06/10/20 03/03/25 11/28/21 History ascorbic acid (vitamin C) 500 mg 1 tab PO DAILY 12/03/20 03/03/25 11/28/21 History tablet (Vitamin C) montelukast 10 mg tablet 10 mg PO BEDTIME 12/03/20 03/03/25 11/28/21 History insulin glargine 100 unit/mL (3 8 unit subcut DAILY 01/25/23 03/03/25 Unknown History mL) subcutaneous pen (Lantus Solostar U-100 Insulin) sevelamer carbonate 800 mg tablet 800 mg PO TIDWM@0800,1200,1700 01/25/23 03/03/25 Unknown History acetaminophen 500 mg tablet 1,000 mg PO Q8H PRN Pain 02/08/23 03/03/25 Unknown History budesonide-formoterol HFA 80 2 puff inhalation BID 02/08/23 03/03/25 Unknown History mcg-4.5 mcg/actuation aerosol inhaler (Symbicort) cholecalciferol (vitamin D3) 25 25 mcg PO DAILY 01/01/24 03/03/25 Unknown History mcg (1,000 unit) tablet carvedilol 3.125 mg tablet 3.125 mg PO BID 08/13/24 03/03/25 Unknown History docusate sodium 100 mg capsule 100 mg PO BID PRN Constipation 08/13/24 03/03/25 Unknown History ezetimibe 10 mg tablet 10 mg PO DAILY 08/13/24 03/03/25 Unknown History insulin glargine 100 unit/mL 7 unit subcut BEDTIME 08/13/24 03/03/25 Unknown History subcutaneous solution (Lantus U-100 Insulin) melatonin 5 mg tablet 5 mg PO BEDTIME PRN Insomnia 08/13/24 03/03/25 Unknown History ticagrelor 90 mg tablet (Brilinta) 90 mg PO BID 08/13/24 03/03/25 Unknown History insulin aspart U-100 100 unit/mL 3 unit subcut DAILY@1200 08/26/24 03/03/25 Unknown History (3 mL) subcutaneous pen (Novolog FlexPen U-100 Insulin aspart) insulin aspart U-100 100 unit/mL See Protocol subcut BIDAC@0730,1630 08/26/24 03/03/25 Unknown History (3 mL) subcutaneous pen (Novolog FlexPen U-100 Insulin aspart) isosorbide mononitrate 30 mg 30 mg PO DAILY 10/02/24 03/03/25 Unknown History tablet,extended release 24 hr pantoprazole 40 mg tablet,delayed 40 mg PO DAILY@0630 10/10/24 03/03/25 Unknown History release aspirin 81 mg tablet,delayed 81 mg PO BEDTIME 03/03/25 03/03/25 Unknown History release evolocumab 140 mg/mL subcutaneous 140 mg subcut Q2W 03/03/25 03/03/25 Unknown History pen injector (Kenia Naranjo) Physical Exam Vital Signs: Last Vital Signs Temp 97.3 F 03/05/25 11:10 Pulse 63 03/05/25 11:10 Resp 16 03/05/25 11:10 BP 101/52 L 03/05/25 11:10 Pulse Ox 93 03/05/25 11:10 O2 Del Method Room Air 03/05/25 11:10 O2 Flow Rate 2 03/05/25 07:27 BMI result Body Mass Index 22.3 Const General: no acute distress HEENT Head: Yes normocephalic and Yes atraumatic Neck Neck: Yes supple Resp Auscultation: diminished lung sounds Cardio Heart sounds: S1 normal heart sound present and S2 normal heart sound present GI Palpation (GI): Soft to palpation and nontender Extrem General: No edema Results Lab Results 03/05/25 09:18 03/04/25 06:21 Lab results: Chemistry 03/03/25 03/04/25 04:11 06:21 Sodium 143 140 Potassium 4.7 4.8 Carbon Dioxide 29 27 BUN 56 H 73 H Creatinine 5.83 H* 7.33 H* Calcium 10.0 D 10.4 H Phosphorus 4.8 H Hematology 03/03/25 03/04/25 03/04/25 04:11 06:21 10:39 WBC 6.2 6.8 6.0 Hgb 8.7 L 8.6 L 8.3 L Plt Count 171 191 178 03/05/25 03/05/25 07:26 09:18 WBC 6.0 4.8 Hgb 8.5 L 7.8 L Plt Count 185 177 Assessment and Plan (1) ESRD (end stage renal disease) on dialysis: Status: Acute (2) Essential hypertension: Status: Acute (3) Anemia: Status: Acute Plan usually has HD at [place] [facility] tts2 admitted with acute coronary syndrome known HFpEF nephrogenic anemia REC HD t-t-s cadiology f/u follow h/h renal diet ELYSSA phosphate binders Procedures Date of Service Date of Service: 03/05/25
[2025-03-05] MEDS: iohexoL 350 MG/ML 100 ML INFUS..BTL IV (14:14)
[2025-03-05 16:08] LABS: Glucose, Whole Blood 107 mg/dL (60-115)
[2025-03-05 19:09] LABS: MANUAL DIFF FLAG NO
[2025-03-05 19:13] LABS: Hematocrit 25.1 % (37.0-47.0); Hemoglobin 8.3 g/dl (12.0-16.0); Imm Gran Abs Auto 0.01 X10*3/uL (0.00-0.03); Imm Gran Pct Auto 0.2 % (0.0-0.4); Lymphocytes Absolute Auto 1.1 X10*3/uL (1.2-4.9); Mean Corpuscular HGB Conc 33.1 g/dl (31.0-35.0); Mean Corpuscular Hemoglobin 30.0 pg (27.0-33.0); Mean Corpuscular Volume 90.6 fL (80.0-98.0); NRBC Abs Auto 0.000 X10*3/uL (0.0-0.012); NRBC Pct Auto 0.0 /100WBC (0.0-0.2); Platelet Count 205 X10*3/uL (160-400); Red Blood Count 2.77 X10*6/uL (4.20-5.50); White Blood Count 4.8 X10*3/uL (4.8-10.8)
--- NOTE | 2025-03-05 20:03 | P.EN_ITS ---
Event Note Date of Service: 03/05/25 Event Note: GI Consult-Full note dictated-History from patient with a medical assistant cardiology, from her RN, and from the EMR Imp: 70 yo female with significant cardiac issues with transient lower GI bleed while on anticoagulation. This appears to have been self-limiting and associated with constipation. She has had no bleeding since this morning's episode. She only had a slight drop in Hgb and no subsequent bleeding. She had a negative upper endo in 07/2024 and a nonrevealing colonoscopy in 2009. Diff dx can range from neoplasm to ischemic colitis to hemorrhoids Rec: I would typically recommend an eventual colonoscopy. However, in reviewing Dr. Wilkerson's note from today I do not think she would be a good candidate for a colonoscopy with the associated prep and anesthesia due to her significant heart disease.The yield may be low anyway in light of the description of the bleeding and quite self-limited course. At this point I would observe, maintain a good bowel regimen to avoid constipation and straining, follow Hgb, and minimize anticoagulation. D/W patient in detail. Please advise me if I can be of any further assistance. Thanks Time Spent With Patient Time: Total time managing care of this patient today ____ minutes.
[2025-03-05] MEDS: Insulin Glargine,Hum.rec.anlog 100 UNIT/ML 10 ML VIAL 7 UNIT SUBCUT (21:03)
[2025-03-05 21:28] LABS: Glucose, Whole Blood 185 mg/dL (60-115)
[2025-03-06] VITALS (14 sets, daily range): BP systolic 143–184; BP diastolic 58–95; PULSE 45–70; RESP 16–20; TEMP 36.2–36.8; O2SAT 94–98
--- NOTE | 2025-03-06 | ECG_ITS ---
Test Reason : Bradycardia Blood Pressure : */* mmHG Vent. Rate : 45 BPM Atrial Rate : 45 BPM P-R Int : 124 ms QRS Dur : 90 ms QT Int : 470 ms P-R-T Axes : -59 10 49 degrees QTcB Int : 406 ms Unusual P axis, possible ectopic atrial bradycardia RSR' or QR pattern in V1 suggests right ventricular conduction delay Abnormal ECG When compared with ECG of 04-Mar-2025 12:16, Ectopic atrial rhythm has replaced Sinus rhythm Vent. rate has decreased by 26 bpm QT has shortened Referred By: eMli Branch Electronically Signed By: JOSH STEWART
--- NOTE | 2025-03-06 04:56 | CONS_ITS ---
DATE OF SERVICE: 03/05/2025 REASON FOR CONSULTATION: Rectal bleeding. 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 The patient is a 70-year-old female with multiple comorbidities including significant coronary artery disease and renal failure. The patient was admitted here on March 03 with associated chest pain and ruling in for VT. She has had a previous coronary artery bypass and has had recent investigations revealing significant coronary artery disease including multivessel disease with severe distal left main disease as per Dr. Wiklerson's Cardiology note. She did have stent placement at that time. She has been on Brilinta and aspirin. She was now admitted here with laboratories consistent with another VT and has been on heparin. This morning, she passed some fresh appearing blood per rectum with a hard bowel movement. She has had no further bleeding. She did have an upper endoscopy back in July with Dr. Villegas, which was essentially nonrevealing other than some mild gastritis with biopsies negative for H pylori. There was no ulcer disease. Her last colonoscopy was well over [address] Alvarenga and was nonrevealing according to the report, although it was a suboptimal prep. She denies any known family history of colon cancer. She does have some chronic constipation with occasional red blood per rectum at home. There has been no melena. She did eat dinner tonight and denies any dysphagia or significant heartburn. She denies any abdominal pain. She is on dialysis as well. Her hemoglobin on admission was 8.7, yesterday was 8.6. This morning was 8.5 and repeat was 7.8. A followup this evening was up to 8.3. She did receive 1 unit of blood. Again, she has had no further signs of significant bleeding since this morning. She did have a CT angiogram of the abdomen this afternoon, which was negative for any sign of active bleeding or other significant pathology. Her medications here in the hospital had included heparin intravenously and this was subsequently stopped after the episode of bleeding. She had also been on 81 mg aspirin and Brilinta, but both have been placed on hold. Other medications include Zetia, Tums, vitamin C, acetaminophen, carvedilol, stool softener, hydralazine, isosorbide, melatonin, IV Protonix, sertraline. PAST MEDICAL HISTORY: Coronary artery disease as described above with associated coronary artery bypass and subsequent stent placements. Renal failure, on hemodialysis. Chronic anemia. Sleep apnea. Diabetes mellitus. Hypertension. SOCIAL HISTORY: She does not smoke or drink. She lives with her son. FAMILY HISTORY: Noncontributory. PHYSICAL EXAMINATION: GENERAL: The patient is a pleasant, alert, comfortable-appearing female. SKIN: Warm and dry. HEENT: Anicteric sclerae. Moist mucous membranes. ABDOMEN: Soft, nondistended, nontender without palpable mass. LABORATORY DATA: As above. Platelet count 205,000 with hemoglobin 8.3, white blood cell count 4.8 at 6:30 p.m. this evening. PT was 11.7 and INR 1.0 this morning before the bleeding. Her PTT was up to 53 on IV heparin before the bleeding. On March 05, she had normal electrolytes, BUN 73 and creatinine 7.3. IMPRESSION: The patient is a 70-year-old female presented with some rectal bleeding after being initiated on IV heparin after admission with VT and known coronary artery disease while on Brilinta and aspirin. Her episode of bleeding seems to have been self-limited and rather minimal in nature, although she did have a slight drop in hemoglobin. She does have chronic constipation and straining with her bowel movements. She did not have any melena. Given the clinical history, this may very well have represented some hemorrhoidal bleeding, although clearly at her age this could also represent a multitude of things including ischemic colitis and/or GI neoplasm. However at this point, I would recommend holding off on colonoscopy given her significant coronary artery disease, recent VT, and other comorbidities. I think the yield on that would be low. Therefore, the risk to benefit ratio would be suboptimal in putting her through invasive testing and anesthesia unless absolutely needed. This does not sound like an upper GI bleed and I would therefore switch her back to an oral PPI. Given the negative upper endoscopy in July, I do not think that needs to be repeated at this time. PLAN: At this point, I would continue supportive care and observation. She can continue on her diet. She should stay on a daily stool softener to avoid constipation and straining. She should have followup hemoglobin and be transfused as needed. I would try to minimize anticoagulation, but would continue at least aspirin and Brilinta if need be given the relatively recent stent placement. I would have to leave that up to Cardiology to decide. At this point, I would not recommend colonoscopy but obviously I am available if the need arises due to active bleeding. The CT angiogram was negative as mentioned, but if she develops recurrent and active bleeding, I would recommend repeating that to see if a source can be seen that might need treatment with Interventional Radiology. Thank you for the consultation. MD MARLEY Todd/DEBBIE / [id number]
[2025-03-06 07:18] LABS: Glucose, Whole Blood 63 mg/dL (60-115)
[2025-03-06 07:42] LABS: Glucose, Whole Blood 74 mg/dL (60-115)
[2025-03-06] MEDS: Insulin Glargine,Hum.rec.anlog 100 UNIT/ML 10 ML VIAL 8 UNIT SUBCUT ×2 (08:12→20:37)
[2025-03-06] MEDS: 0.9 % Sodium Chloride Flush 3 ML SYRINGE IVFLUSH ×3 (08:12→20:50)
[2025-03-06] MEDS: Sevelamer Carbonate Tablet 800 MG TABLET PO ×2 (08:16→16:43)
--- NOTE | 2025-03-06 08:18 | P.PNIM_ITS ---
Subjective Subjective Date of Service: 03/06/25 Interval History: Patient was seen in dialysis, resting comfortably, BP 182/76 this morning received her blood pressure medication. No bloody stools reported. Per dialysis no bloody stools reported overnight. About midway through dialysis session, patient had a moderate amount of BRB. Her blood pressure dropped to the 80s systolic, and she was tachycardic. A rapid response was called, she received 500 cc fluid bolus, a dose of desmopressin, and 2 units of blood were ordered. She responded well and BP improved to 152/69. She became more alert. Tachycardia improved. Dialysis session terminated patient was returned to her room, she had another episode of dark bloody stool. She denies any shortness of breath, chest pain, abdominal pain. She is afebrile. Patient reports that she does not wish to have her daughter who was listed as a healthcare proxy updated at this time. Review of Systems Per HPI Physical Exam 2 Exam: Exam: CONST: Alert and oriented, in NAD. Well nourished HEENT: Normocephalic, atraumatic RESP: Lungs clear, RRR even and regular HEART:,RRR, S1, S2. No murmur, no edema GI:Abdomen Soft NT, ND. + BS times four. Moderate amount of dark red blood mixed with stool noted at time of exam. :Deferred SKIN: Warm dry and intact, no visible lesions or rashes NEURO:CN II-XII Intact bilaterally, Sensation intact. Speech clear PSYCH: Normal affect. Answers questions Vital Signs: Vital Signs: Last Vital Signs Temp 98.1 F 03/06/25 07:17 Pulse 56 03/06/25 07:17 Resp 16 03/06/25 07:17 BP 182/76 H 03/06/25 07:17 Pulse Ox 98 03/06/25 07:17 O2 Del Method Room Air 03/06/25 07:17 O2 Flow Rate 1 03/05/25 20:00 BMI result Body Mass Index 22.3 Objective Data Active Medications Acetaminophen (Acetaminophen 325 Mg Tablet) 975 mg PO Q6H PRN PRN Reason: Pain, Mild 1-3,fever,headache Last Admin: 03/05/25 11:09 Dose: 975 mg Documented By: SASCHA Amlodipine Besylate (Amlodipine Besylate 10 Mg Tablet) 10 mg PO DAILY [facility]; Protocol Last Admin: 03/05/25 08:31 Dose: 10 mg Documented By: SASCHA Ascorbic Acid (Ascorbic Acid 500 Mg Tablet) 500 mg PO DAILY [facility] Last Admin: 03/05/25 08:32 Dose: 500 mg Documented By: SASCHA Aspirin (Aspirin Enteric Coated 81 Mg Tablet.) 81 mg PO BEDTIME [facility] On Hold: 03/05/25 13:04 Last Admin: 03/04/25 21:06 Dose: 81 mg Documented By: NONI Atorvastatin Calcium (Atorvastatin Calcium 80 Mg Tablet) 80 mg PO BEDTIME [facility] Last Admin: 03/05/25 21:01 Dose: 80 mg Documented By: JOCELIN Calcium Carbonate (Calcium Carbonate 750 Mg Tab.Chew) 750 mg PO Q4H PRN PRN Reason: Heartburn Carvedilol (Carvedilol 12.5 Mg Tablet) 12.5 mg PO BID [facility]; Protocol Last Admin: 03/05/25 20:54 Dose: Not Given Documented By: JOCELIN Non-Admin Reason: Decreased Heart Rate Comments: Dr. Fried notified Dextrose (Dextrose 50 % 25 Gm/50 Ml Syringe) 25 gm IVPUSH Q15M PRN; Protocol PRN Reason: per Hypoglycemia Standing Ord. Diphenhydramine HCl (Diphenhydramine Hcl 25 Mg Capsule) 25 mg PO Q8H PRN PRN Reason: Itching Last Admin: 03/06/25 00:50 Dose: 25 mg Documented By: MICHELA Docusate Sodium (Docusate Sodium 100 Mg Capsule) 100 mg PO BID PRN PRN Reason: Constipation Ezetimibe (Ezetimibe 10 Mg Tablet) 10 mg PO DAILY [facility] Last Admin: 03/05/25 08:32 Dose: 10 mg Documented By: SASCHA Fluticasone/Vilanterol (Fluticasone/Vilanterol 100/25 Blst.W.Dev) 1 puff INHALE RDAILY [facility] Last Admin: 03/05/25 07:53 Dose: 1 puff Documented By: MARIELA Glucose (Glucose Gel 15 Gm Gel..Gram.) 15 gm PO Q15M PRN; Protocol PRN Reason: per Hypoglycemia Standing Ord. Hydralazine HCl (Hydralazine Hcl 25 Mg Tablet) 75 mg PO TID [facility]; Protocol Last Admin: 03/05/25 21:19 Dose: Not Given Documented By: JOCELIN Non-Admin Reason: Physician Held Med Comments: Held per Dr Fried Insulin Glargine (Insulin Glargine,Hum.Rec.Anlog 100 Unit/Ml 10 Ml Vial) 8 unit SUBCUT DAILY [facility] Last Admin: 03/05/25 08:32 Dose: 8 unit Documented By: SASCHA Insulin Glargine (Insulin Glargine,Hum.Rec.Anlog 100 Unit/Ml 10 Ml Vial) 7 unit SUBCUT BEDTIME [facility] Last Admin: 03/05/25 21:03 Dose: 7 unit Documented By: JOCELIN Insulin Human Lispro (Insulin Lispro 100 Unit/Ml 3 Ml Vial) 0 unit SUBCUT QIDACHS [facility]; Protocol Last Admin: 03/06/25 07:34 Dose: Not Given Documented By: RACHAEL Non-Admin Reason: No Insulin Coverage Isosorbide Mononitrate (Isosorbide Mononitrate 60 Mg Tab.Er.24h) 60 mg PO DAILY [facility]; Protocol Last Admin: 03/05/25 08:32 Dose: 60 mg Documented By: SASCHA Magnesium Hydroxide (Milk Of Magnesia 30 Ml Oral.Susp) 30 ml PO DAILY PRN PRN Reason: Constipation Melatonin (Melatonin 3 Mg Tablet) 6 mg PO BEDTIME PRN PRN Reason: Insomnia Last Admin: 03/04/25 03:19 Dose: 6 mg Documented By: GIULIANO Montelukast Sodium (Montelukast Sodium 10 Mg Tablet) 10 mg PO BEDTIME [facility] Last Admin: 03/05/25 21:02 Dose: 10 mg Documented By: JOCELIN Nitroglycerin (Nitroglycerin 0.4 Mg Tab.Subl) 0.4 mg SUBLINGUAL Q5MX3 PRN PRN Reason: Chest Pain Last Admin: 03/03/25 21:11 Dose: 0.4 mg Documented By: GIULIANO Omeprazole (Omeprazole 20 Mg Capsule.) 20 mg PO DAILY@0630 [facility] Last Admin: 03/06/25 05:35 Dose: 20 mg Documented By: MIHCELA Polyethylene Glycol (Polyethylene Glycol 3350 17 Gm Powd.Pack) 17 gm PO DAILY [facility] Sertraline HCl (Sertraline Hcl 50 Mg Tablet) 150 mg PO DAILY [facility] Last Admin: 03/05/25 08:31 Dose: 150 mg Documented By: SASCHA Sevelamer Carbonate (Sevelamer Carbonate Tablet 800 Mg Tablet) 800 mg PO TIDWM@0800,1200,1700 [facility] Last Admin: 03/05/25 17:11 Dose: 800 mg Documented By: SASCHA Sodium Chloride (0.9 % Sodium Chloride Flush 3 Ml Syringe) 3 ml IVFLUSH QSHIFT [facility] Last Admin: 03/05/25 21:03 Dose: 3 ml Documented By: JOCELIN Ticagrelor (Ticagrelor 90 Mg Tablet) 90 mg PO BID [facility] On Hold: 03/05/25 13:05 Last Admin: 03/05/25 08:31 Dose: 90 mg Documented By: SASCHA Vitamin D (Cholecalciferol (Vitamin D3) 25 Mcg Tablet) 25 mcg PO DAILY [facility] Last Admin: 03/05/25 08:31 Dose: 25 mcg Documented By: SASCHA Labs 03/06/25 08:50 03/06/25 08:50 Labs: Laboratory Results - last 24 hr 03/05/25 03/05/25 03/05/25 09:18 10:06 11:43 MCV 89.8 MCH 30.5 MCHC 33.9 RDW 15.0 Plt Count 177 MPV 10.1 Immature Gran % (Auto) 0.2 Neut % (Auto) 75.9 H Lymph % (Auto) 18.1 L [place] % (Auto) 5.0 Eos % (Auto) 0.4 Baso % (Auto) 0.4 Lymph # (Auto) 0.9 L [place] # (Auto) 0.2 Eos # (Auto) 0.0 Baso # (Auto) 0.0 Abs Immat Gran (auto) 0.01 Absolute Neuts (auto) 3.6 Absolute Nucleated RBC 0.000 Nucleated RBC % (auto) 0.0 POC Glucose 223 H Blood Type B Positive Antibody Screen NEGATIVE Crossmatch See Detail 03/05/25 03/05/25 03/05/25 16:03 18:36 20:49 MCV 90.6 MCH 30.0 MCHC 33.1 RDW 14.7 Plt Count 205 MPV 10.9 Immature Gran % (Auto) 0.2 Neut % (Auto) 66.6 Lymph % (Auto) 23.3 [place] % (Auto) 8.3 Eos % (Auto) 1.0 Baso % (Auto) 0.6 Lymph # (Auto) 1.1 L [place] # (Auto) 0.4 Eos # (Auto) 0.1 Baso # (Auto) 0.0 Abs Immat Gran (auto) 0.01 Absolute Neuts (auto) 3.2 Absolute Nucleated RBC 0.000 Nucleated RBC % (auto) 0.0 POC Glucose 107 185 H Blood Type Antibody Screen Crossmatch 03/06/25 03/06/25 07:14 07:38 MCV MCH MCHC RDW Plt Count MPV Immature Gran % (Auto) Neut % (Auto) Lymph % (Auto) [place] % (Auto) Eos % (Auto) Baso % (Auto) Lymph # (Auto) [place] # (Auto) Eos # (Auto) Baso # (Auto) Abs Immat Gran (auto) Absolute Neuts (auto) Absolute Nucleated RBC Nucleated RBC % (auto) POC Glucose 63 74 Blood Type Antibody Screen Crossmatch Assessment and Plan (1) GI (gastrointestinal hemorrhage): Status: Acute Plan Aldrmary Capas this is a 70 y/o woman with a PMHx significant for ESRD on HD (TTS) and HFpEF, type 2 diabetes, hypertension, chronic anemia, SHELIA, hyperlipidemia, CAD with status post CABG, GERD, asthma and depression presents with acute hypoxic respiratory failure and non ST-elevation [place]. hospital course complicated by acute GI bleeding. Patient was initially started on a heparin drip which was DC. Followed by GI and cardiology. Acute GI bleedinglikely lower/Rapid response called for BRB and hypotension Patient went to dialysis, session was aborted due to a rapid response due to hypotension. Received 500 cc bolus, dose of desmopressin, patient was suctioned. 2 units of packed red blood cells ordered Case discussed with ICU attending, patient responded to treatment so we will continue to monitor. Patient returned to her room on telemetry floor in stable condition. Case discussed with Dr. Luna who recommended repeating the pelvic abdominal CTA if bleeding reoccurs to try and identify a source. Recommendations to continue the aspirin and Brilinta due to the relatively recent stent placement deferred to Cardiology recommendations Case discussed with Dr. Alatorre Aware of need for repeat CTA-In agreement with plan. Case discussed with cardiology, Brilinta and Plavix on hold. Not a candidate for PCI due to GI bleeding. Continue to monitor and adjust blood pressure medications. Protonix 40 mg b.i.d restarted Hemoglobin 7.8 this morning. 2 units of packed red blood cells ordered, 1st unit of blood infusing, plans to repeat CBC after unit completed Brilinta and aspirin on hold for now Abdominal pelvis CTA done 8 6, with no contrast exacerbation to suggest active GI bleeding. Acute on chronic anemia due to acute blood loss anemia due to GI bleed. Hgb 7.8 this morning. Minimize anticoagulation Patient with history of GI bleeding Aspirin and Brilinta on hold. Non ST-elevation [place] ECG showed no acute ischemia., Labs with no electrolyte imbalances. Glucose is 119. Troponins on admit 24.6, 32.2, and 44.6 Repeated and showed 83.4, and 64.5. Heparin drip DC due to GI bleeding Patient declined transferred to [facility] and would like to be managed here in [facility]. Followed by cardiology, continue recommendations to monitor and adjust blood pressure medications. Aspirin and Brilinta placed on hold due to GI bleed. Patient with recent stent placement. Sinus Rhythm on Tele. Acute hypoxic respiratory failure [place] secondary to fluid overload related to chronic diastolic congestive heart failure as evidenced by cardiomegaly, pulmonary vascular congestion and trace bilateral pleural effusions on x-ray Sinus Rhythm on Tele Patient on room air Dialysis T-T-S Followed by [facility] Appears Euvolemic on exam. Lasix 80 mg p.o. b.i.d on hold for now Hypertension/HLD Continue Amlodipine Hydralazine increased to 75 mg t.i.d. Hold for SBP less than 90 Carvedilol increased to 12.5 b.i.d. Hold parameters in place. Imdur 60 mg daily Continue Statin Type 2 diabetes mellitus. Continue Lantus and insulin sliding scale. Diabetic diet. ESRD on HD Nephrology following, Follow labs. Dialysis Monday- -Monday Incomplete dialysis session today due to rapid response. Obstructive sleep apnea Not using CPAP due to intolerance. CAD s/p CABG Hold Brilinta, aspirin Continue Statin Can Continue aspirin/Brilinta as long as there is no further bleeding and patient is stabilized. GERD Continue PPI. Asthma Mild intermittent. Continue home inhalers and montelukast. Depression Continue Zoloft. DVT prophylaxis: SCDs only Code status: Full Patient will need continued hospitalization for acute hypoxic respiratory treatment and NSTEMI, hospital course complicated by GI bleed, uncontrolled hypertension and NSTEMI requiring close monitoring of this medically complex patient. Quality Stroke Does the patient have a stroke diagnosis?: No VTE Prior VTE?: No VTE Risk Level:: Medical - moderate - high VTE Device Contraindication: N/A - Device Ordered VTE Drug Contraindication: Treatment Not Tolerated
[2025-03-06] MEDS: Fluticasone/Vilanterol 100/25 BLST.W.DEV 1 PUFF INHALE (08:44)
[2025-03-06 09:13] LABS: MANUAL DIFF FLAG NO
[2025-03-06 09:19] LABS: Hematocrit 22.2 % (37.0-47.0); Hemoglobin 7.8 g/dl (12.0-16.0); Imm Gran Abs Auto 0.02 X10*3/uL (0.00-0.03); Imm Gran Pct Auto 0.4 % (0.0-0.4); Lymphocytes Absolute Auto 1.1 X10*3/uL (1.2-4.9); Mean Corpuscular HGB Conc 35.1 g/dl (31.0-35.0); Mean Corpuscular Hemoglobin 30.6 pg (27.0-33.0); Mean Corpuscular Volume 87.1 fL (80.0-98.0); NRBC Abs Auto 0.000 X10*3/uL (0.0-0.012); NRBC Pct Auto 0.0 /100WBC (0.0-0.2); Platelet Count 176 X10*3/uL (160-400); Red Blood Count 2.55 X10*6/uL (4.20-5.50); White Blood Count 5.2 X10*3/uL (4.8-10.8)
[2025-03-06 09:39] LABS: Alanine Aminotransferase < 6 U/L (0-31); Albumin Level 3.6 g/dL (3.5-5.0); Alkaline Phosphatase 79 U/L (39-117); Anion Gap 19 (12-20); Aspartate Amino Transferase 13 U/L (5-31); Blood Urea Nitrogen 77 mg/dL (9-16); Calcium 9.6 mg/dL (8.4-10.2); Carbon Dioxide 25 mmol/L (22-29); Chloride 97 mmol/L (96-108); Creatinine Clr Calc Pharmacy 5.4; Estimated Glomerular Filt Rate 6; Potassium 5.5 mmol/L (3.3-5.1); Sodium 135 mmol/L (135-145); Total Protein 6.2 g/dL (6.5-8.0)
--- NOTE | 2025-03-06 10:16 | PM.PNCARD ---
Subjective Subjective Date of Service: 03/06/25 Interval history: Discussed with patient using casing finisher and stuffer. She states that she feels okay. No further chest pains. She had small amount of GI bleed last night but otherwise feeling okay. Heparin has been stopped. Review of Systems Review of Systems Yes all other systems are reviewed and are negative Constitutional: Reports as per HPI and Reports no additional constitutional complaints Eyes: Reports as per HPI and Denies no additional eye complaints Denies system reviewed and no additional complaints, except as documented and Reports as per HPI Cardiovascular: Reports as per HPI, Reports no additional cardiovascular complaints, Denies acrocyanosis, Denies cool extremities, Denies chest pain, Denies leg edema, Denies lightheadedness, Denies palpitations and Denies dyspnea Respiratory: Reports as per HPI, Denies no additional respiratory complaints and Denies dyspnea Gastrointestinal: Reports as per HPI and Denies no additional gastrointestinal complaints Musculoskeletal: Reports no additional musculoskeletal complaints and Reports as per HPI Skin/Breast: Reports system reviewed and no additional complaints, except as docu Reports system reviewed and no additional complaints, except as documented and Reports as per HPI Psychiatric: Reports no additional psychiatric complaints and Reports as per HPI Endocrine: Reports no additional endocrine complaints, Reports as per HPI and Denies palpitations Hematologic/Lymphatic: Reports no additional hematologic/lymphatic complaints and Reports as per HPI Allergic/Immunologic: Reports no additional allergic/immunologic complaints and Reports as per HPI Physical Exam Vital Signs: Last Vital Signs Temp 98.1 F 03/06/25 07:17 Pulse 70 03/06/25 08:45 Resp 16 03/06/25 08:45 BP 182/76 H 03/06/25 07:17 Pulse Ox 98 03/06/25 07:17 O2 Del Method Room Air 03/06/25 07:17 O2 Flow Rate 1 03/05/25 20:00 BMI result Body Mass Index 22.3 Const General: comfortable and no acute distress Orientation/consciousness: patient oriented x3 HEENT Other: Unremarkable Head: Yes normal to inspection Neck Neck: Yes normal visual inspection Chest Chest palpation & inspection: normal inspection of the chest Resp Auscultation: clear to auscultation bilaterally Cardio Palpation: normal PMI Heart sounds: S1 normal heart sound present, S2 normal heart sound present, no gallops, Murmur heart sound present systolic III/ and at the right sternal border and no rubs GI Palpation (GI): Soft to palpation Back/Spine/Pelvis Other: unremarkable Skin General skin exam: no rashes or lesions noted Neuro General: patient oriented x3 Extrem General: Yes normal to inspection Psych Mental Status: mental status grossly normal Objective Labs and Meds 03/06/25 08:50 03/06/25 08:50 Lab results: Laboratory Results - last 24 hr 03/05/25 03/05/25 03/05/25 10:06 11:43 16:03 WBC RBC Hgb Hct MCV MCH MCHC RDW Plt Count MPV Immature Gran % (Auto) Neut % (Auto) Lymph % (Auto) [place] % (Auto) Eos % (Auto) Baso % (Auto) Lymph # (Auto) [place] # (Auto) Eos # (Auto) Baso # (Auto) Abs Immat Gran (auto) Absolute Neuts (auto) Absolute Nucleated RBC Nucleated RBC % (auto) Sodium Potassium Chloride Carbon Dioxide Anion Gap BUN Creatinine Estim Creat Clear Calc Estimated GFR POC Glucose 223 H 107 Random Glucose Calcium Total Bilirubin AST ALT Alkaline Phosphatase Total Protein Albumin Blood Type B Positive Antibody Screen NEGATIVE Crossmatch See Detail 03/05/25 03/05/25 03/06/25 18:36 20:49 07:14 WBC 4.8 RBC 2.77 L Hgb 8.3 L Hct 25.1 L MCV 90.6 MCH 30.0 MCHC 33.1 RDW 14.7 Plt Count 205 MPV 10.9 Immature Gran % (Auto) 0.2 Neut % (Auto) 66.6 Lymph % (Auto) 23.3 [place] % (Auto) 8.3 Eos % (Auto) 1.0 Baso % (Auto) 0.6 Lymph # (Auto) 1.1 L [place] # (Auto) 0.4 Eos # (Auto) 0.1 Baso # (Auto) 0.0 Abs Immat Gran (auto) 0.01 Absolute Neuts (auto) 3.2 Absolute Nucleated RBC 0.000 Nucleated RBC % (auto) 0.0 Sodium Potassium Chloride Carbon Dioxide Anion Gap BUN Creatinine Estim Creat Clear Calc Estimated GFR POC Glucose 185 H 63 Random Glucose Calcium Total Bilirubin AST ALT Alkaline Phosphatase Total Protein Albumin Blood Type Antibody Screen Crossmatch 03/06/25 03/06/25 07:38 08:50 WBC 5.2 RBC 2.55 L Hgb 7.8 L Hct 22.2 L MCV 87.1 MCH 30.6 MCHC 35.1 H RDW 15.1 Plt Count 176 MPV 10.5 Immature Gran % (Auto) 0.4 Neut % (Auto) 70.3 Lymph % (Auto) 20.2 [place] % (Auto) 7.5 Eos % (Auto) 1.2 Baso % (Auto) 0.4 Lymph # (Auto) 1.1 L [place] # (Auto) 0.4 Eos # (Auto) 0.1 Baso # (Auto) 0.0 Abs Immat Gran (auto) 0.02 Absolute Neuts (auto) 3.7 Absolute Nucleated RBC 0.000 Nucleated RBC % (auto) 0.0 Sodium 135 Potassium 5.5 H Chloride 97 Carbon Dioxide 25 Anion Gap 19 BUN 77 H Creatinine 7.09 H* Estim Creat Clear Calc 5.4 Estimated GFR 6 POC Glucose 74 Random Glucose 120 H Calcium 9.6 D Total Bilirubin 0.4 AST 13 ALT < 6 Alkaline Phosphatase 79 Total Protein 6.2 L Albumin 3.6 Blood Type Antibody Screen Crossmatch Imaging Radiologist's impression: Impressions Abdomen/Pelvis CTA 03/05/25 13:41 IMPRESSION: 1. No contrast extravasation is seen to suggest active GI bleeding. 2. The uterus appears enlarged for the patient's age. Clinical correlation is recommended. Electronically signed by: Phan Cui MD 03/05/2025 02:26 PM EDT Progress Note: A&P Assessment and plan (1) Hypertensive emergency: Status: Acute (2) Non-ST elevation [place] (NSTEMI): Status: Acute (3) Aortic stenosis: Status: Acute (4) ESRD (end stage renal disease) on dialysis: Status: Acute (5) GI (gastrointestinal hemorrhage): Status: Acute Plan Overall, poorly controlled hypertension, dialysis patient, chest pain probably related to high blood pressures in the setting of extensive coronary disease history. Home blood pressure meds include carvedilol, amlodipine, isosorbide mononitrate, hydralazine. Blood pressure meds have been increased but it is still high. May need further adjustments. IV heparin drip has been stopped because of GI bleed. We can continue the aspirin/Brilinta as long as there is no further bleeding. Earlier in the stay, we had discussed about [facility] transfer but patient did not want that and hence we will need to be managed in [place]. Any case, because of the GI bleed she will not be a candidate for PCI either. Discussed with casing finisher and stuffer. He has a complicated patient with many comorbidities and hence high-risk of decompensation and . Time Spent With Patient Time: Total time managing care of this patient today ____ minutes. Progress Note: Quality Stroke Does the patient have a stroke diagnosis?: No Procedures Date of Service Date of Service: 03/06/25
[2025-03-06 10:36] LABS: Glucose, Whole Blood 122 mg/dL (60-115)
--- NOTE | 2025-03-06 11:38 | P.PNNP_ITS ---
Subjective Subjective Date of Service: 03/06/25 Interval history: seen and examined had HD earlier d/w medical attending events reviewed HD aborted due to GI bleed Physical Exam 2 Vital Signs: Vital Signs: Last Vital Signs Temp 97.8 F 03/06/25 11:09 Pulse 56 03/06/25 11:09 Resp 16 03/06/25 11:09 BP 144/65 H 03/06/25 11:09 Pulse Ox 98 03/06/25 07:17 O2 Del Method Room Air 03/06/25 07:17 O2 Flow Rate 1 03/05/25 20:00 BMI result Body Mass Index 22.3 Const: General: no acute distress HEENT: Head: Yes normocephalic and Yes atraumatic Neck: Neck: Yes supple Resp: Auscultation: diminished lung sounds Cardio: Heart sounds: S1 normal heart sound present and S2 normal heart sound present GI: Palpation (GI): Soft to palpation and nontender Extrem: General: No edema Objective Data Labs 03/06/25 08:50 03/06/25 08:50 Labs: Laboratory Results - last 24 hr 03/05/25 03/05/25 03/05/25 10:06 11:43 16:03 WBC RBC Hgb Hct MCV MCH MCHC RDW Plt Count MPV Immature Gran % (Auto) Neut % (Auto) Lymph % (Auto) [place] % (Auto) Eos % (Auto) Baso % (Auto) Lymph # (Auto) [place] # (Auto) Eos # (Auto) Baso # (Auto) Abs Immat Gran (auto) Absolute Neuts (auto) Absolute Nucleated RBC Nucleated RBC % (auto) Sodium Potassium Chloride Carbon Dioxide Anion Gap BUN Creatinine Estim Creat Clear Calc Estimated GFR POC Glucose 223 H 107 Random Glucose Calcium Total Bilirubin AST ALT Alkaline Phosphatase Total Protein Albumin Blood Type B Positive Antibody Screen NEGATIVE Crossmatch See Detail 03/05/25 03/05/25 03/06/25 18:36 20:49 07:14 WBC 4.8 RBC 2.77 L Hgb 8.3 L Hct 25.1 L MCV 90.6 MCH 30.0 MCHC 33.1 RDW 14.7 Plt Count 205 MPV 10.9 Immature Gran % (Auto) 0.2 Neut % (Auto) 66.6 Lymph % (Auto) 23.3 [place] % (Auto) 8.3 Eos % (Auto) 1.0 Baso % (Auto) 0.6 Lymph # (Auto) 1.1 L [place] # (Auto) 0.4 Eos # (Auto) 0.1 Baso # (Auto) 0.0 Abs Immat Gran (auto) 0.01 Absolute Neuts (auto) 3.2 Absolute Nucleated RBC 0.000 Nucleated RBC % (auto) 0.0 Sodium Potassium Chloride Carbon Dioxide Anion Gap BUN Creatinine Estim Creat Clear Calc Estimated GFR POC Glucose 185 H 63 Random Glucose Calcium Total Bilirubin AST ALT Alkaline Phosphatase Total Protein Albumin Blood Type Antibody Screen Crossmatch 03/06/25 03/06/25 03/06/25 07:38 08:50 10:31 WBC 5.2 RBC 2.55 L Hgb 7.8 L Hct 22.2 L MCV 87.1 MCH 30.6 MCHC 35.1 H RDW 15.1 Plt Count 176 MPV 10.5 Immature Gran % (Auto) 0.4 Neut % (Auto) 70.3 Lymph % (Auto) 20.2 [place] % (Auto) 7.5 Eos % (Auto) 1.2 Baso % (Auto) 0.4 Lymph # (Auto) 1.1 L [place] # (Auto) 0.4 Eos # (Auto) 0.1 Baso # (Auto) 0.0 Abs Immat Gran (auto) 0.02 Absolute Neuts (auto) 3.7 Absolute Nucleated RBC 0.000 Nucleated RBC % (auto) 0.0 Sodium 135 Potassium 5.5 H Chloride 97 Carbon Dioxide 25 Anion Gap 19 BUN 77 H Creatinine 7.09 H* Estim Creat Clear Calc 5.4 Estimated GFR 6 POC Glucose 74 122 H Random Glucose 120 H Calcium 9.6 D Total Bilirubin 0.4 AST 13 ALT < 6 Alkaline Phosphatase 79 Total Protein 6.2 L Albumin 3.6 Blood Type Antibody Screen Crossmatch Procedures Date of Service Date of Service: 03/06/25 Assessment & Plan Assessment and plan (1) ESRD (end stage renal disease) on dialysis: Status: Acute (2) Essential hypertension: Status: Acute (3) Anemia: Status: Acute Plan HD aborted today earlier due to GIB usually has HD at [facility] tts admitted with acute coronary syndrome known HFpEF nephrogenic anemia REC HD t-t-s cadiology f/u follow h/h renal diet ELYSSA phosphate binders blood transfusion GI consult Time Spent With Patient Time: Total time managing care of this patient today ____ minutes. Progress Note: Quality Stroke Does the patient have a stroke diagnosis?: No
[2025-03-06] MEDS: SODIUM CHLORIDE 0.9% IV (12:21)
[2025-03-06] MEDS: DESMOPRESSIN ACETATE IV (12:21)
[2025-03-06] MEDS: iohexoL 350 MG/ML 100 ML INFUS..BTL IV (13:35)
[2025-03-06 14:48] LABS: Hematocrit 23.9 % (37.0-47.0); Hemoglobin 8.3 g/dl (12.0-16.0)
[2025-03-06 16:05] LABS: Glucose, Whole Blood 83 mg/dL (60-115)
--- NOTE | 2025-03-06 16:08 | PM.EVENT ---
Event Note Date of Service: 03/06/25 Event Note: Patient noted to be bradycardic, 43, recent increase in Coreg, we will hold tonight, resume at previous dose. Discussed with Cardiology. Met with Judi, daniela niece whom patient would like to be updated regarding medical condition. Updated regarding health conditions. Confirmed goals of care, patient would like to be a Full CODE. Patient reporting chest tightness, troponins ordered. Cardiology made aware. Time Spent With Patient Time: Total time managing care of this patient today ____ minutes.
[2025-03-06 19:05] LABS: Troponin-I High Sensitivity 22.4 ng/L (<3.5-17.0)
[2025-03-06 20:16] LABS: Glucose, Whole Blood 192 mg/dL (60-115)
[2025-03-06] MEDS: Insulin Glargine,Hum.rec.anlog 100 UNIT/ML 10 ML VIAL 7 UNIT SUBCUT (20:49)
[2025-03-07] VITALS (9 sets, daily range): BP systolic 121–186; BP diastolic 56–74; PULSE 44–71; RESP 17–18; TEMP 36.4–37.2; O2SAT 92–99
[2025-03-07] MEDS: Glucose Gel 15 GM GEL..GRAM. PO (07:17)
[2025-03-07 07:25] LABS: Glucose, Whole Blood 49 mg/dL (60-115)
[2025-03-07 07:41] LABS: Glucose, Whole Blood 101 mg/dL (60-115)
[2025-03-07] MEDS: Fluticasone/Vilanterol 100/25 BLST.W.DEV 1 PUFF INHALE (07:47)
[2025-03-07 08:04] LABS: Glucose, Whole Blood 125 mg/dL (60-115)
[2025-03-07] MEDS: 0.9 % Sodium Chloride Flush 3 ML SYRINGE IVFLUSH ×2 (08:06→16:36)
[2025-03-07] MEDS: Sevelamer Carbonate Tablet 800 MG TABLET PO ×2 (08:08→16:35)
[2025-03-07 09:03] LABS: Hematocrit 27.2 % (37.0-47.0); Hemoglobin 9.4 g/dl (12.0-16.0); Mean Corpuscular HGB Conc 34.6 g/dl (31.0-35.0); Mean Corpuscular Hemoglobin 31.3 pg (27.0-33.0); Mean Corpuscular Volume 90.7 fL (80.0-98.0); NRBC Abs Auto 0.000 X10*3/uL (0.0-0.012); NRBC Pct Auto 0.0 /100WBC (0.0-0.2); Platelet Count 152 X10*3/uL (160-400); Red Blood Count 3.00 X10*6/uL (4.20-5.50); White Blood Count 5.1 X10*3/uL (4.8-10.8)
[2025-03-07 09:26] LABS: Anion Gap 19 (12-20); Blood Urea Nitrogen 70 mg/dL (9-16); Calcium 9.3 mg/dL (8.4-10.2); Carbon Dioxide 21 mmol/L (22-29); Chloride 99 mmol/L (96-108); Creatinine Clr Calc Pharmacy 5.6; Estimated Glomerular Filt Rate 6; Potassium 5.8 mmol/L (3.3-5.1); Sodium 133 mmol/L (135-145)
--- NOTE | 2025-03-07 10:24 | P.PNIM_ITS ---
Subjective Subjective Date of Service: 03/07/25 Interval History: This history was taken in French from the patient. Had dark blood per rectum overnight, none this AM. C/o N/V; no abd pain. No chest pain. Review of Systems Review of Systems: Yes all other systems are reviewed and are negative Physical Exam 2 Vital Signs: Vital Signs: Last Vital Signs Temp 97.5 F 03/07/25 08:00 Pulse 52 03/07/25 08:48 Resp 18 03/07/25 08:00 BP 186/62 H 03/07/25 08:48 Pulse Ox 97 03/07/25 08:48 O2 Del Method Room Air 03/07/25 08:48 O2 Flow Rate 1 03/07/25 03:46 BMI result Body Mass Index 22.3 Gen: in no acute distress HEENT: sclera anicteric, moist mucus membranes Neck: supple Lungs: clear to auscultation bilaterally Heart: regular rate and rhythm, no murmurs Abd: soft, non-tender, non-distended Ext: no edema, LUE fistula Skin: warm/well-perfused Neuro: alert and oriented x3, no focal findings Psych: appropriate affect Objective Data Active Medications Acetaminophen (Acetaminophen 325 Mg Tablet) 975 mg PO Q6H PRN PRN Reason: Pain, Mild 1-3,fever,headache Last Admin: 03/07/25 05:54 Dose: 975 mg Documented By: FILI Amlodipine Besylate (Amlodipine Besylate 10 Mg Tablet) 10 mg PO DAILY [facility]; Protocol Last Admin: 03/07/25 08:06 Dose: 10 mg Documented By: RACHAEL Ascorbic Acid (Ascorbic Acid 500 Mg Tablet) 500 mg PO DAILY [facility] Last Admin: 03/07/25 08:06 Dose: 500 mg Documented By: RACHAEL Aspirin (Aspirin Enteric Coated 81 Mg Tablet.) 81 mg PO BEDTIME [facility] On Hold: 03/05/25 13:04 Last Admin: 03/04/25 21:06 Dose: 81 mg Documented By: NONI Atorvastatin Calcium (Atorvastatin Calcium 80 Mg Tablet) 80 mg PO BEDTIME [facility] Last Admin: 03/06/25 20:37 Dose: 80 mg Documented By: FILI Calcium Carbonate (Calcium Carbonate 750 Mg Tab.Chew) 750 mg PO Q4H PRN PRN Reason: Heartburn Carvedilol (Carvedilol 6.25 Mg Tablet) 6.25 mg PO BID [facility]; Protocol On Hold: 03/07/25 09:00 Last Admin: 03/07/25 07:48 Dose: Not Given Documented By: RACHAEL Non-Admin Reason: Decreased Heart Rate Dextrose (Dextrose 50 % 25 Gm/50 Ml Syringe) 25 gm IVPUSH Q15M PRN; Protocol PRN Reason: per Hypoglycemia Standing Ord. Diphenhydramine HCl (Diphenhydramine Hcl 25 Mg Capsule) 25 mg PO Q8H PRN PRN Reason: Itching Last Admin: 03/06/25 20:44 Dose: 25 mg Documented By: IDALMIS-DESSK Docusate Sodium (Docusate Sodium 100 Mg Capsule) 100 mg PO BID PRN PRN Reason: Constipation Ezetimibe (Ezetimibe 10 Mg Tablet) 10 mg PO DAILY [facility] Last Admin: 03/07/25 08:06 Dose: 10 mg Documented By: RACHAEL Fluticasone/Vilanterol (Fluticasone/Vilanterol 100/25 Blst.W.Dev) 1 puff INHALE RDAILY [facility] Last Admin: 03/07/25 07:47 Dose: 1 puff Documented By: BREA Glucose (Glucose Gel 15 Gm Gel..Gram.) 15 gm PO Q15M PRN; Protocol PRN Reason: per Hypoglycemia Standing Ord. Last Admin: 03/07/25 07:17 Dose: 15 gm Documented By: RACHAEL Hydralazine HCl (Hydralazine Hcl 25 Mg Tablet) 75 mg PO TID [facility]; Protocol Last Admin: 03/07/25 08:06 Dose: 75 mg Documented By: RACHAEL Insulin Glargine (Insulin Glargine,Hum.Rec.Anlog 100 Unit/Ml 10 Ml Vial) 5 unit SUBCUT BEDTIME [facility] Insulin Human Lispro (Insulin Lispro 100 Unit/Ml 3 Ml Vial) 0 unit SUBCUT QIDACHS [facility]; Protocol Last Admin: 03/07/25 08:04 Dose: Not Given Documented By: RACHAEL Non-Admin Reason: No Insulin Coverage Isosorbide Mononitrate (Isosorbide Mononitrate 60 Mg Tab.Er.24h) 60 mg PO DAILY [facility]; Protocol Last Admin: 03/07/25 08:06 Dose: 60 mg Documented By: RACHAEL Magnesium Hydroxide (Milk Of Magnesia 30 Ml Oral.Susp) 30 ml PO DAILY PRN PRN Reason: Constipation Melatonin (Melatonin 3 Mg Tablet) 6 mg PO BEDTIME PRN PRN Reason: Insomnia Last Admin: 03/04/25 03:19 Dose: 6 mg Documented By: GIULIANO Montelukast Sodium (Montelukast Sodium 10 Mg Tablet) 10 mg PO BEDTIME [facility] Last Admin: 03/06/25 20:37 Dose: 10 mg Documented By: FILI Nitroglycerin (Nitroglycerin 0.4 Mg Tab.Subl) 0.4 mg SUBLINGUAL Q5MX3 PRN PRN Reason: Chest Pain Last Admin: 03/06/25 16:33 Dose: 0.4 mg Documented By: RACHAEL Ondansetron HCl (Ondansetron Hcl 4 Mg/2 Ml Vial) 4 mg IVPUSH Q4H PRN PRN Reason: Nausea and Vomiting Last Admin: 03/07/25 09:09 Dose: 4 mg Documented By: RACHAEL Pantoprazole Sodium (Pantoprazole Sodium 40 Mg/10 Ml Vial) 40 mg IVPUSH BID@0630,1630 [facility] Last Admin: 03/07/25 05:56 Dose: 40 mg Documented By: FILI Polyethylene Glycol (Polyethylene Glycol 3350 17 Gm Powd.Pack) 17 gm PO DAILY [facility] Last Admin: 03/07/25 08:05 Dose: 17 gm Documented By: RACHAEL Sertraline HCl (Sertraline Hcl 50 Mg Tablet) 150 mg PO DAILY [facility] Last Admin: 03/07/25 08:06 Dose: 150 mg Documented By: RACHAEL Sevelamer Carbonate (Sevelamer Carbonate Tablet 800 Mg Tablet) 800 mg PO TIDWM@0800,1200,1700 [facility] Last Admin: 03/07/25 08:08 Dose: 800 mg Documented By: RACHAEL Sodium Chloride (0.9 % Sodium Chloride Flush 3 Ml Syringe) 3 ml IVFLUSH QSHIFT [facility] Last Admin: 03/07/25 08:06 Dose: 3 ml Documented By: RACHAEL Ticagrelor (Ticagrelor 90 Mg Tablet) 90 mg PO BID [facility] On Hold: 03/05/25 13:05 Last Admin: 03/05/25 08:31 Dose: 90 mg Documented By: SASCHA Vitamin D (Cholecalciferol (Vitamin D3) 25 Mcg Tablet) 25 mcg PO DAILY [facility] Last Admin: 03/07/25 08:06 Dose: 25 mcg Documented By: RACHAEL Labs 03/07/25 08:02 03/07/25 08:02 Labs: Laboratory Results - last 24 hr 03/05/25 03/06/25 03/06/25 10:06 10:31 14:38 MCV MCH MCHC RDW Plt Count MPV Absolute Nucleated RBC Nucleated RBC % (auto) Hold Purple Top SEE NOTE Anion Gap Estim Creat Clear Calc Estimated GFR POC Glucose 122 H Random Glucose Calcium Blood Type B Positive Antibody Screen NEGATIVE Crossmatch See Detail 03/06/25 03/06/25 03/07/25 15:54 20:08 07:12 MCV MCH MCHC RDW Plt Count MPV Absolute Nucleated RBC Nucleated RBC % (auto) Hold Purple Top Anion Gap Estim Creat Clear Calc Estimated GFR POC Glucose 83 192 H 49 L* Random Glucose Calcium Blood Type Antibody Screen Crossmatch 03/07/25 03/07/25 03/07/25 07:36 08:00 08:02 MCV 90.7 MCH 31.3 MCHC 34.6 RDW 15.3 Plt Count 152 L MPV 10.7 Absolute Nucleated RBC 0.000 Nucleated RBC % (auto) 0.0 Hold Purple Top Anion Gap 19 Estim Creat Clear Calc 5.6 Estimated GFR 6 POC Glucose 101 125 H Random Glucose 127 H Calcium 9.3 Blood Type Antibody Screen Crossmatch Assessment and Plan (1) GI (gastrointestinal hemorrhage): Status: Acute Plan d5, 70yo F with ESRD on HD TuThSa, HFpEF, DM2, HTN, anemia, SHELIA, HLD, CAD s/p CABG, GERD, asthma, and depression presenting with chest pain, admitted for hypoxia and NSTEMI; hospitalization complicated by GI bleeding while on heparin drip acute blood loss anemia due to GI bleed - transfused 2u pRBCs and given desmopressin; H+H stable; GI following; 2 CTAs without bleeding source identified; holding DAPT with ASA + ticagrelor for now, continue IV PPI NSTEMI CAD - DAPT on hold, not candidate for PCI due to GI bleed, pt declined transfer to [facility] regardless, continue statin + ezetimibe, Cardiology following - TTE 03/04/25: - The left ventricular systolic function is normal. The calculated ejection fraction is 60% by biplane method. - The basal inferior and basal inferolateral segments are akinetic. - Overall, probable moderate aortic stenosis. hyperK ESRD on HD - low-K diet, HD today, Lokelma, repeat K tomorrow - incomplete HD yesterday due to rapid response for GI bleed AHRF due to acute/chronic HFpEF - resolved after HD HTN - continue Imdur, amlodipine, hydralazine; carvedilol on hold for bradycardia DM2 with hypoglycemia - d/c am Lantus and decrease hs Lantus from 7 to 5 units SHELIA - intolerant of CPAP GERD - PPI mild persistent asthma not in acute exac - continue Breo, montelukast, prn albuterol depression - continue sertraline VTE ppx - SCDs dispo - TBD In my clinical judgment, the patient requires continued inpatient hospitalization for the following reasons: NSTEMI, GI bleed, hyperK Total time managing care of this patient today: 55 minutes. Quality Stroke Does the patient have a stroke diagnosis?: No VTE Prior VTE?: No VTE Risk Level:: Medical - moderate - high VTE Device Contraindication: N/A - Device Ordered VTE Drug Contraindication: Treatment Not Tolerated
--- NOTE | 2025-03-07 11:11 | PM.PNCARD ---
Subjective Subjective Date of Service: 03/07/25 Interval history: She states she is feeling okay. Yesterday, per message from hospitalist, she had some bright red blood per rectum and had rapid response called for that. Later that day, she had sinus bradycardia. Then an episode of chest pain in the evening. Today, she states that she is feeling fine. No further chest pains or any other complaints. Review of Systems Review of Systems Yes all other systems are reviewed and are negative Constitutional: Reports as per HPI and Reports no additional constitutional complaints Eyes: Reports as per HPI and Denies no additional eye complaints Denies system reviewed and no additional complaints, except as documented and Reports as per HPI Cardiovascular: Reports as per HPI, Reports no additional cardiovascular complaints, Denies acrocyanosis, Denies cool extremities, Denies chest pain, Denies leg edema, Denies lightheadedness, Denies palpitations and Denies dyspnea Respiratory: Reports as per HPI, Denies no additional respiratory complaints and Denies dyspnea Gastrointestinal: Reports as per HPI and Denies no additional gastrointestinal complaints Genitourinary: Reports as per HPI Musculoskeletal: Reports no additional musculoskeletal complaints and Reports as per HPI Skin/Breast: Reports system reviewed and no additional complaints, except as docu Reports system reviewed and no additional complaints, except as documented and Reports as per HPI Psychiatric: Reports no additional psychiatric complaints and Reports as per HPI Endocrine: Reports no additional endocrine complaints, Reports as per HPI and Denies palpitations Hematologic/Lymphatic: Reports no additional hematologic/lymphatic complaints and Reports as per HPI Allergic/Immunologic: Reports no additional allergic/immunologic complaints and Reports as per HPI Physical Exam Vital Signs: Last Vital Signs Temp 97.5 F 03/07/25 08:00 Pulse 52 03/07/25 08:48 Resp 18 03/07/25 08:00 BP 186/62 H 03/07/25 08:48 Pulse Ox 97 03/07/25 08:48 O2 Del Method Room Air 03/07/25 08:48 O2 Flow Rate 1 03/07/25 03:46 BMI result Body Mass Index 22.3 Const General: comfortable and no acute distress Orientation/consciousness: patient oriented x3 HEENT Other: Unremarkable Head: Yes normal to inspection Neck Neck: Yes normal visual inspection Chest Chest palpation & inspection: normal inspection of the chest Resp Auscultation: clear to auscultation bilaterally Cardio Palpation: normal PMI Heart sounds: S1 normal heart sound present, S2 normal heart sound present, no gallops, Murmur heart sound present systolic III/ and at the right sternal border and no rubs GI Palpation (GI): Soft to palpation Back/Spine/Pelvis Other: unremarkable Skin General skin exam: no rashes or lesions noted Neuro General: patient oriented x3 Extrem General: Yes normal to inspection Psych Mental Status: mental status grossly normal Objective Labs and Meds 03/07/25 08:02 03/07/25 08:02 Lab results: Laboratory Results - last 24 hr 03/05/25 03/06/25 03/06/25 10:06 14:38 15:54 WBC RBC Hgb 8.3 L Hct 23.9 L MCV MCH MCHC RDW Plt Count MPV Absolute Nucleated RBC Nucleated RBC % (auto) Hold Purple Top SEE NOTE Sodium Potassium Chloride Carbon Dioxide Anion Gap BUN Creatinine Estim Creat Clear Calc Estimated GFR POC Glucose 83 Random Glucose Calcium Troponin I High Sens Blood Type B Positive Antibody Screen NEGATIVE Crossmatch See Detail 03/06/25 03/06/25 03/07/25 18:38 20:08 07:12 WBC RBC Hgb Hct MCV MCH MCHC RDW Plt Count MPV Absolute Nucleated RBC Nucleated RBC % (auto) Hold Purple Top Sodium Potassium Chloride Carbon Dioxide Anion Gap BUN Creatinine Estim Creat Clear Calc Estimated GFR POC Glucose 192 H 49 L* Random Glucose Calcium Troponin I High Sens 22.4 H D Blood Type Antibody Screen Crossmatch 03/07/25 03/07/25 03/07/25 07:36 08:00 08:02 WBC 5.1 RBC 3.00 L Hgb 9.4 L Hct 27.2 L MCV 90.7 MCH 31.3 MCHC 34.6 RDW 15.3 Plt Count 152 L MPV 10.7 Absolute Nucleated RBC 0.000 Nucleated RBC % (auto) 0.0 Hold Purple Top Sodium 133 L Potassium 5.8 H Chloride 99 Carbon Dioxide 21 L Anion Gap 19 BUN 70 H Creatinine 6.75 H* Estim Creat Clear Calc 5.6 Estimated GFR 6 POC Glucose 101 125 H Random Glucose 127 H Calcium 9.3 Troponin I High Sens Blood Type Antibody Screen Crossmatch Imaging Radiologist's impression: Impressions Abdomen/Pelvis CT 03/06/25 12:08 IMPRESSION: Nondiagnostic examination due to diffuse high density material throughout the colon and multiple small bowel loops. This could be secondary to ingestion of oral contrast material or high density medication. Clinical correlation is recommended. Electronically signed by: Phan Cui MD 03/06/2025 02:19 PM EDT RP Abdomen/Pelvis CTA 03/06/25 13:08 IMPRESSION: Nondiagnostic examination due to diffuse high density material throughout the colon and multiple small bowel loops. This could be secondary to ingestion of oral contrast material or high density medication. Clinical correlation is recommended. Electronically signed by: Phan Cui MD 03/06/2025 02:19 PM EDT RP Progress Note: A&P Assessment and plan (1) Hypertensive emergency: Status: Acute (2) Non-ST elevation [place] (NSTEMI): Status: Acute (3) Aortic stenosis: Status: Acute (4) ESRD (end stage renal disease) on dialysis: Status: Acute (5) GI (gastrointestinal hemorrhage): Status: Acute Plan Very complicated patient with numerous issues including poorly controlled hypertension, sinus bradycardia, extensive CAD, GI bleed, ESRD on hemodialysis. In this current admission, she has had GI bleed as well as chest pain and hence very difficult to manage. She is off the heparin drip and may have to hold her antiplatelet drugs as well. Once the GI bleed issues completely resolved, can resume at least the Brilinta. With regard to the hypertension, Coreg dose was increased but then she had sinus bradycardia and hence we will need to hold that issue gets better. Other meds we will need to be up titrated as tolerated including amlodipine, long-acting nitrates, hydralazine. Overall, with all her comorbidities, high-risk of decompensation and . 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 Time Spent With Patient Time: Total time managing care of this patient today ____ minutes. Progress Note: Quality Stroke Does the patient have a stroke diagnosis?: No Procedures Date of Service Date of Service: 03/07/25
--- NOTE | 2025-03-07 12:18 | PM.PNNEP ---
Subjective Subjective Date of Service: 03/07/25 Interval history: seen and examined,events noted HD only for 1 hr yesrteday d/t GIB Physical Exam Vital Signs: Vital Signs: Last Vital Signs Temp 97.5 F 03/07/25 08:00 Pulse 52 03/07/25 08:48 Resp 18 03/07/25 08:00 BP 186/62 H 03/07/25 08:48 Pulse Ox 97 03/07/25 08:48 O2 Del Method Room Air 03/07/25 08:48 O2 Flow Rate 1 03/07/25 03:46 BMI result Body Mass Index 22.3 Const: General: no acute distress HEENT: Head: Yes normocephalic and Yes atraumatic Neck: Neck: Yes supple Resp: Auscultation: diminished lung sounds Cardio: Heart sounds: S1 normal heart sound present and S2 normal heart sound present GI: Palpation (GI): Soft to palpation and nontender Extrem: General: No edema Objective Data Labs 03/07/25 08:02 03/07/25 08:02 Labs: Laboratory Results - last 24 hr 03/05/25 03/06/25 03/06/25 10:06 14:38 15:54 WBC RBC Hgb 8.3 L Hct 23.9 L MCV MCH MCHC RDW Plt Count MPV Absolute Nucleated RBC Nucleated RBC % (auto) Hold Purple Top SEE NOTE Sodium Potassium Chloride Carbon Dioxide Anion Gap BUN Creatinine Estim Creat Clear Calc Estimated GFR POC Glucose 83 Random Glucose Calcium Troponin I High Sens Blood Type B Positive Antibody Screen NEGATIVE Crossmatch See Detail 03/06/25 03/06/25 03/07/25 18:38 20:08 07:12 WBC RBC Hgb Hct MCV MCH MCHC RDW Plt Count MPV Absolute Nucleated RBC Nucleated RBC % (auto) Hold Purple Top Sodium Potassium Chloride Carbon Dioxide Anion Gap BUN Creatinine Estim Creat Clear Calc Estimated GFR POC Glucose 192 H 49 L* Random Glucose Calcium Troponin I High Sens 22.4 H D Blood Type Antibody Screen Crossmatch 03/07/25 03/07/25 03/07/25 07:36 08:00 08:02 WBC 5.1 RBC 3.00 L Hgb 9.4 L Hct 27.2 L MCV 90.7 MCH 31.3 MCHC 34.6 RDW 15.3 Plt Count 152 L MPV 10.7 Absolute Nucleated RBC 0.000 Nucleated RBC % (auto) 0.0 Hold Purple Top Sodium 133 L Potassium 5.8 H Chloride 99 Carbon Dioxide 21 L Anion Gap 19 BUN 70 H Creatinine 6.75 H* Estim Creat Clear Calc 5.6 Estimated GFR 6 POC Glucose 101 125 H Random Glucose 127 H Calcium 9.3 Troponin I High Sens Blood Type Antibody Screen Crossmatch Procedures Date of Service Date of Service: 03/07/25 Assessment & Plan Assessment and plan (1) ESRD (end stage renal disease) on dialysis: Status: Acute (2) Essential hypertension: Status: Acute (3) Anemia: Status: Acute Plan HD aborted yesterday due to GIB usually has HD at [facility] on [address] [id number] admitted with acute coronary syndrome known HFpEF nephrogenic anemia HyperK REC HD today and then again Monday cadiology f/u follow h/h renal diet ELYSSA phosphate binders blood transfusion GI consult Time Spent With Patient Time: Total time managing care of this patient today ____ minutes. Progress Note: Quality Stroke Does the patient have a stroke diagnosis?: No
[2025-03-07 14:40] LABS: Glucose, Whole Blood 83 mg/dL (60-115)
--- NOTE | 2025-03-07 15:36 | MHC.CM.PN ---
Per pt. request, HCP was changed today, 1. Parrish, and 2. Ginet, added to chart, and copies given to pt.
[2025-03-07 16:28] LABS: Glucose, Whole Blood 75 mg/dL (60-115)
[2025-03-07 20:18] LABS: Glucose, Whole Blood 133 mg/dL (60-115)
[2025-03-07] MEDS: Insulin Glargine,Hum.rec.anlog 100 UNIT/ML 10 ML VIAL SUBCUT (21:24)
[2025-03-08] VITALS (7 sets, daily range): BP systolic 122–169; BP diastolic 58–75; PULSE 52–70; RESP 16–19; TEMP 36.1–37; O2SAT 95–100
--- NOTE | 2025-03-08 00:48 | PC.NURSE ---
TEDs removed for the night, will reapply in the morning.
[2025-03-08] MEDS: 0.9 % Sodium Chloride Flush 3 ML SYRINGE IVFLUSH ×2 (06:14→15:47)
[2025-03-08 07:19] LABS: Hematocrit 33.0 % (37.0-47.0); Hemoglobin 11.1 g/dl (12.0-16.0); Mean Corpuscular HGB Conc 33.6 g/dl (31.0-35.0); Mean Corpuscular Hemoglobin 31.7 pg (27.0-33.0); Mean Corpuscular Volume 94.3 fL (80.0-98.0); NRBC Abs Auto 0.000 X10*3/uL (0.0-0.012); NRBC Pct Auto 0.0 /100WBC (0.0-0.2); Platelet Count 184 X10*3/uL (160-400); Red Blood Count 3.50 X10*6/uL (4.20-5.50); White Blood Count 5.6 X10*3/uL (4.8-10.8)
[2025-03-08 07:25] LABS: Glucose, Whole Blood 80 mg/dL (60-115)
[2025-03-08 07:29] LABS: Anion Gap 19 (12-20); Blood Urea Nitrogen 29 mg/dL (9-16); Calcium 9.9 mg/dL (8.4-10.2); Carbon Dioxide 28 mmol/L (22-29); Chloride 98 mmol/L (96-108); Creatinine Clr Calc Pharmacy 7.7; Estimated Glomerular Filt Rate 9; Potassium 5.2 mmol/L (3.3-5.1); Sodium 140 mmol/L (135-145)
[2025-03-08] MEDS: Fluticasone/Vilanterol 100/25 BLST.W.DEV 1 PUFF INHALE (08:14)
[2025-03-08] MEDS: Sevelamer Carbonate Tablet 800 MG TABLET PO ×3 (10:10→16:25)
--- NOTE | 2025-03-08 10:48 | P.PNIM_ITS ---
Subjective Subjective Date of Service: 03/08/25 Interval History: This history was taken in Lithuanian from the patient. C/o chills; no fever and no hypoglycemia Had dark red blood in BM yesterday evening, none since Denies abd pain Tolerating clear liquids Had HD yesterday Review of Systems Review of Systems: Yes all other systems are reviewed and are negative Physical Exam 2 Vital Signs: Vital Signs: Last Vital Signs Temp 97.6 F 03/08/25 07:15 Pulse 70 03/08/25 08:15 Resp 19 03/08/25 08:15 BP 167/74 H 03/08/25 07:15 Pulse Ox 98 03/08/25 07:15 O2 Del Method Room Air 03/08/25 07:15 O2 Flow Rate 1 03/07/25 03:46 BMI result Body Mass Index 22.3 Gen: in no acute distress HEENT: sclera anicteric, moist mucus membranes Neck: supple Lungs: clear to auscultation bilaterally Heart: regular rate and rhythm, no murmurs Abd: soft, non-tender, non-distended Ext: no edema, LUE fistula Skin: warm/well-perfused Neuro: alert and oriented x3, no focal findings Psych: appropriate affect Objective Data Active Medications Acetaminophen (Acetaminophen 325 Mg Tablet) 975 mg PO Q6H PRN PRN Reason: Pain, Mild 1-3,fever,headache Last Admin: 03/07/25 05:54 Dose: 975 mg Documented By: FILI Amlodipine Besylate (Amlodipine Besylate 10 Mg Tablet) 10 mg PO DAILY [facility]; Protocol Last Admin: 03/08/25 10:03 Dose: 10 mg Documented By: JUNIOR Ascorbic Acid (Ascorbic Acid 500 Mg Tablet) 500 mg PO DAILY [facility] Last Admin: 03/08/25 10:05 Dose: 500 mg Documented By: JUNIOR Aspirin (Aspirin Enteric Coated 81 Mg Tablet.) 81 mg PO BEDTIME [facility] On Hold: 03/05/25 13:04 Last Admin: 03/04/25 21:06 Dose: 81 mg Documented By: NONI Atorvastatin Calcium (Atorvastatin Calcium 80 Mg Tablet) 80 mg PO BEDTIME [facility] Last Admin: 03/07/25 21:10 Dose: 80 mg Documented By: GIULIANO Calcium Carbonate (Calcium Carbonate 750 Mg Tab.Chew) 750 mg PO Q4H PRN PRN Reason: Heartburn Carvedilol (Carvedilol 6.25 Mg Tablet) 6.25 mg PO BID [facility]; Protocol On Hold: 03/07/25 09:00 Last Admin: 03/07/25 07:48 Dose: Not Given Documented By: RACHAEL Non-Admin Reason: Decreased Heart Rate Dextrose (Dextrose 50 % 25 Gm/50 Ml Syringe) 25 gm IVPUSH Q15M PRN; Protocol PRN Reason: per Hypoglycemia Standing Ord. Diphenhydramine HCl (Diphenhydramine Hcl 25 Mg Capsule) 25 mg PO Q8H PRN PRN Reason: Itching Last Admin: 03/07/25 21:16 Dose: 25 mg Documented By: GIULIANO Docusate Sodium (Docusate Sodium 100 Mg Capsule) 100 mg PO BID PRN PRN Reason: Constipation Ezetimibe (Ezetimibe 10 Mg Tablet) 10 mg PO DAILY [facility] Last Admin: 03/08/25 10:05 Dose: 10 mg Documented By: JUNIOR Fluticasone/Vilanterol (Fluticasone/Vilanterol 100/25 Blst.W.Dev) 1 puff INHALE RDAILY [facility] Last Admin: 03/08/25 08:14 Dose: 1 puff Documented By: PHOEBE Glucose (Glucose Gel 15 Gm Gel..Gram.) 15 gm PO Q15M PRN; Protocol PRN Reason: per Hypoglycemia Standing Ord. Last Admin: 03/07/25 07:17 Dose: 15 gm Documented By: RACHAEL Hydralazine HCl (Hydralazine Hcl 25 Mg Tablet) 75 mg PO TID [facility]; Protocol Last Admin: 03/08/25 10:05 Dose: 75 mg Documented By: JUNIOR Insulin Glargine (Insulin Glargine,Hum.Rec.Anlog 100 Unit/Ml 10 Ml Vial) 5 unit SUBCUT BEDTIME [facility] Last Admin: 03/07/25 21:24 Dose: 5 unit Documented By: GIULIANO Insulin Human Lispro (Insulin Lispro 100 Unit/Ml 3 Ml Vial) 0 unit SUBCUT QIDACHS [facility]; Protocol Last Admin: 03/08/25 07:45 Dose: Not Given Documented By: FUENTES Non-Admin Reason: No Insulin Coverage Isosorbide Mononitrate (Isosorbide Mononitrate 60 Mg Tab.Er.24h) 60 mg PO DAILY [facility]; Protocol Last Admin: 03/08/25 10:06 Dose: 60 mg Documented By: JUNIOR Magnesium Hydroxide (Milk Of Magnesia 30 Ml Oral.Susp) 30 ml PO DAILY PRN PRN Reason: Constipation Melatonin (Melatonin 3 Mg Tablet) 6 mg PO BEDTIME PRN PRN Reason: Insomnia Last Admin: 03/04/25 03:19 Dose: 6 mg Documented By: GIULIANO Montelukast Sodium (Montelukast Sodium 10 Mg Tablet) 10 mg PO BEDTIME [facility] Last Admin: 03/07/25 21:10 Dose: 10 mg Documented By: GIULIANO Nitroglycerin (Nitroglycerin 0.4 Mg Tab.Subl) 0.4 mg SUBLINGUAL Q5MX3 PRN PRN Reason: Chest Pain Last Admin: 03/06/25 16:33 Dose: 0.4 mg Documented By: RACHAEL Ondansetron HCl (Ondansetron Hcl 4 Mg/2 Ml Vial) 4 mg IVPUSH Q4H PRN PRN Reason: Nausea and Vomiting Last Admin: 03/07/25 09:09 Dose: 4 mg Documented By: RACHAEL Pantoprazole Sodium (Pantoprazole Sodium 40 Mg/10 Ml Vial) 40 mg IVPUSH BID@0630,1630 [facility] Last Admin: 03/08/25 06:12 Dose: 40 mg Documented By: GIULIANO Polyethylene Glycol (Polyethylene Glycol 3350 17 Gm Powd.Pack) 17 gm PO DAILY [facility] Last Admin: 03/08/25 10:07 Dose: Not Given Documented By: JUNIOR Non-Admin Reason: Patient Refused Sertraline HCl (Sertraline Hcl 50 Mg Tablet) 150 mg PO DAILY [facility] Last Admin: 03/08/25 10:06 Dose: 150 mg Documented By: JUNIOR Sevelamer Carbonate (Sevelamer Carbonate Tablet 800 Mg Tablet) 800 mg PO TIDWM@0800,1200,1700 [facility] Last Admin: 03/08/25 10:10 Dose: 800 mg Documented By: JUNIOR Sodium Chloride (0.9 % Sodium Chloride Flush 3 Ml Syringe) 3 ml IVFLUSH QSHIFT [facility] Last Admin: 03/08/25 06:14 Dose: 3 ml Documented By: GIULIANO Ticagrelor (Ticagrelor 90 Mg Tablet) 90 mg PO BID [facility] On Hold: 03/05/25 13:05 Last Admin: 03/05/25 08:31 Dose: 90 mg Documented By: SASCHA Vitamin D (Cholecalciferol (Vitamin D3) 25 Mcg Tablet) 25 mcg PO DAILY [facility] Last Admin: 03/08/25 10:06 Dose: 25 mcg Documented By: JUNIOR Labs 03/08/25 06:50 03/08/25 06:50 Labs: Laboratory Results - last 24 hr 03/07/25 03/07/25 03/07/25 14:36 16:24 20:15 MCV MCH MCHC RDW Plt Count MPV Absolute Nucleated RBC Nucleated RBC % (auto) Anion Gap Estim Creat Clear Calc Estimated GFR POC Glucose 83 75 133 H Random Glucose Calcium 03/08/25 03/08/25 06:50 07:14 MCV 94.3 MCH 31.7 MCHC 33.6 RDW 15.2 Plt Count 184 MPV 10.6 Absolute Nucleated RBC 0.000 Nucleated RBC % (auto) 0.0 Anion Gap 19 Estim Creat Clear Calc 7.7 Estimated GFR 9 POC Glucose 80 Random Glucose 79 Calcium 9.9 D Assessment and Plan (1) GI (gastrointestinal hemorrhage): Status: Acute Plan d6, 70yo F with ESRD on HD TuThSa, HFpEF, DM2, HTN, anemia, SHELIA, HLD, CAD s/p CABG, GERD, asthma, and depression presenting with chest pain, admitted for hypoxia and NSTEMI; hospitalization complicated by GI bleeding while on heparin drip acute blood loss anemia due to GI bleed - transfused 2u pRBCs and given desmopressin 03/06; H+H stable; GI following; 2 CTAs without bleeding source identified; holding DAPT with ASA + ticagrelor for now, continue IV PPI, continue clear liquid diet for now NSTEMI CAD - DAPT on hold, not candidate for PCI due to GI bleed, pt declined transfer to [facility] regardless, continue statin + ezetimibe, Cardiology following - TTE 03/04/25: - The left ventricular systolic function is normal. The calculated ejection fraction is 60% by biplane method. - The basal inferior and basal inferolateral segments are akinetic. - Overall, probable moderate aortic stenosis. hyperK ESRD on HD - low-K diet, HD yesterday, give 1 more dose of Lokelma AHRF due to acute/chronic HFpEF - resolved after HD HTN - continue Imdur, amlodipine, hydralazine; carvedilol on hold for bradycardia DM2 with hypoglycemia - d/c am Lantus and decrease hs Lantus from 7 to 5 units SHELIA - intolerant of CPAP GERD - PPI mild persistent asthma not in acute exac - continue Breo, montelukast, prn albuterol depression - continue sertraline VTE ppx - SCDs dispo - TBD In my clinical judgment, the patient requires continued inpatient hospitalization for the following reasons: NSTEMI, GI bleed, hyperK Total time managing care of this patient today: 45 minutes. Quality Stroke Does the patient have a stroke diagnosis?: No VTE Prior VTE?: No VTE Risk Level:: Medical - moderate - high VTE Device Contraindication: N/A - Device Ordered VTE Drug Contraindication: Treatment Not Tolerated
[2025-03-08 11:15] LABS: Glucose, Whole Blood 134 mg/dL (60-115)
[2025-03-08 15:23] LABS: Glucose, Whole Blood 205 mg/dL (60-115)
[2025-03-08 21:11] LABS: Glucose, Whole Blood 111 mg/dL (60-115)
[2025-03-08] MEDS: Insulin Glargine,Hum.rec.anlog 100 UNIT/ML 10 ML VIAL SUBCUT (21:40)
[2025-03-09] VITALS (7 sets, daily range): BP systolic 132–172; BP diastolic 60–70; PULSE 57–64; RESP 15–20; TEMP 36.2–36.7; O2SAT 94–100
[2025-03-09] MEDS: 0.9 % Sodium Chloride Flush 3 ML SYRINGE IVFLUSH ×3 (01:23→17:03)
[2025-03-09 07:14] LABS: Hematocrit 27.5 % (37.0-47.0); Hemoglobin 9.4 g/dl (12.0-16.0); Mean Corpuscular HGB Conc 34.2 g/dl (31.0-35.0); Mean Corpuscular Hemoglobin 31.4 pg (27.0-33.0); Mean Corpuscular Volume 92.0 fL (80.0-98.0); NRBC Abs Auto 0.000 X10*3/uL (0.0-0.012); NRBC Pct Auto 0.0 /100WBC (0.0-0.2); Platelet Count 195 X10*3/uL (160-400); Red Blood Count 2.99 X10*6/uL (4.20-5.50); White Blood Count 4.3 X10*3/uL (4.8-10.8)
[2025-03-09 07:39] LABS: Anion Gap 18 (12-20); Blood Urea Nitrogen 40 mg/dL (9-16); Calcium 9.4 mg/dL (8.4-10.2); Carbon Dioxide 27 mmol/L (22-29); Chloride 97 mmol/L (96-108); Creatinine Clr Calc Pharmacy 5.9; Estimated Glomerular Filt Rate 6; Potassium 4.1 mmol/L (3.3-5.1); Sodium 138 mmol/L (135-145)
[2025-03-09 07:43] LABS: Glucose, Whole Blood 54 mg/dL (60-115)
[2025-03-09 08:12] LABS: Glucose, Whole Blood 99 mg/dL (60-115)
[2025-03-09] MEDS: Fluticasone/Vilanterol 100/25 BLST.W.DEV 1 PUFF INHALE (08:19)
--- NOTE | 2025-03-09 09:40 | P.PNIM_ITS ---
Subjective Subjective Date of Service: 03/09/25 Interval History: had a BM yesterday with old blood; no fresh blood no abd pain mild chest discomfort at times but generally feeling well and hungry Review of Systems Review of Systems: Yes all other systems are reviewed and are negative Physical Exam 2 Vital Signs: Vital Signs: Last Vital Signs Temp 97.3 F 03/09/25 07:45 Pulse 63 03/09/25 08:19 Resp 15 03/09/25 08:19 BP 172/64 H 03/09/25 07:45 Pulse Ox 100 03/09/25 07:45 O2 Del Method Room Air 03/09/25 07:45 O2 Flow Rate 1 03/07/25 03:46 BMI result Body Mass Index 22.3 Gen: in no acute distress HEENT: sclera anicteric, moist mucus membranes Neck: supple Lungs: clear to auscultation bilaterally Heart: regular rate and rhythm, no murmurs Abd: soft, non-tender, non-distended Ext: no edema, LUE fistula Skin: warm/well-perfused Neuro: alert and oriented x3, no focal findings Psych: appropriate affect Objective Data Active Medications Acetaminophen (Acetaminophen 325 Mg Tablet) 975 mg PO Q6H PRN PRN Reason: Pain, Mild 1-3,fever,headache Last Admin: 03/09/25 03:32 Dose: 975 mg Documented By: BEBA Amlodipine Besylate (Amlodipine Besylate 10 Mg Tablet) 10 mg PO DAILY [facility]; Protocol Last Admin: 03/08/25 10:03 Dose: 10 mg Documented By: JUNIOR Ascorbic Acid (Ascorbic Acid 500 Mg Tablet) 500 mg PO DAILY [facility] Last Admin: 03/08/25 10:05 Dose: 500 mg Documented By: JUNIOR Aspirin (Aspirin Enteric Coated 81 Mg Tablet.) 81 mg PO BEDTIME [facility] On Hold: 03/05/25 13:04 Last Admin: 03/04/25 21:06 Dose: 81 mg Documented By: NONI Atorvastatin Calcium (Atorvastatin Calcium 80 Mg Tablet) 80 mg PO BEDTIME [facility] Last Admin: 03/08/25 21:40 Dose: 80 mg Documented By: BEBA Calcium Carbonate (Calcium Carbonate 750 Mg Tab.Chew) 750 mg PO Q4H PRN PRN Reason: Heartburn Carvedilol (Carvedilol 6.25 Mg Tablet) 6.25 mg PO BID [facility]; Protocol On Hold: 03/07/25 09:00 Last Admin: 03/07/25 07:48 Dose: Not Given Documented By: RACHAEL Non-Admin Reason: Decreased Heart Rate Dextrose (Dextrose 50 % 25 Gm/50 Ml Syringe) 25 gm IVPUSH Q15M PRN; Protocol PRN Reason: per Hypoglycemia Standing Ord. Diphenhydramine HCl (Diphenhydramine Hcl 25 Mg Capsule) 25 mg PO Q8H PRN PRN Reason: Itching Last Admin: 03/07/25 21:16 Dose: 25 mg Documented By: GIULIANO Docusate Sodium (Docusate Sodium 100 Mg Capsule) 100 mg PO BID PRN PRN Reason: Constipation Ezetimibe (Ezetimibe 10 Mg Tablet) 10 mg PO DAILY [facility] Last Admin: 03/08/25 10:05 Dose: 10 mg Documented By: JUNIOR Fluticasone/Vilanterol (Fluticasone/Vilanterol 100/25 Blst.W.Dev) 1 puff INHALE RDAILY [facility] Last Admin: 03/09/25 08:19 Dose: 1 puff Documented By: PHOEBE Glucose (Glucose Gel 15 Gm Gel..Gram.) 15 gm PO Q15M PRN; Protocol PRN Reason: per Hypoglycemia Standing Ord. Last Admin: 03/07/25 07:17 Dose: 15 gm Documented By: RACHAEL Hydralazine HCl (Hydralazine Hcl 25 Mg Tablet) 75 mg PO TID [facility]; Protocol On Hold: 03/08/25 16:16 Last Admin: 03/08/25 16:18 Dose: Not Given Documented By: BEBA Non-Admin Reason: hold per Insulin Glargine (Insulin Glargine,Hum.Rec.Anlog 100 Unit/Ml 10 Ml Vial) 5 unit SUBCUT BEDTIME [facility] On Hold: 03/09/25 08:02 Last Admin: 03/08/25 21:40 Dose: 5 unit Documented By: BEBA Insulin Human Lispro (Insulin Lispro 100 Unit/Ml 3 Ml Vial) 0 unit SUBCUT QIDACHS [facility]; Protocol Last Admin: 03/09/25 09:04 Dose: Not Given Documented By: MINGO Non-Admin Reason: No Insulin Coverage Isosorbide Mononitrate (Isosorbide Mononitrate 60 Mg Tab.Er.24h) 60 mg PO DAILY [facility]; Protocol Last Admin: 03/08/25 10:06 Dose: 60 mg Documented By: JUNIOR Magnesium Hydroxide (Milk Of Magnesia 30 Ml Oral.Susp) 30 ml PO DAILY PRN PRN Reason: Constipation Melatonin (Melatonin 3 Mg Tablet) 6 mg PO BEDTIME PRN PRN Reason: Insomnia Last Admin: 03/04/25 03:19 Dose: 6 mg Documented By: GIULIANO Montelukast Sodium (Montelukast Sodium 10 Mg Tablet) 10 mg PO BEDTIME [facility] Last Admin: 03/08/25 21:40 Dose: 10 mg Documented By: BEBA Nitroglycerin (Nitroglycerin 0.4 Mg Tab.Subl) 0.4 mg SUBLINGUAL Q5MX3 PRN PRN Reason: Chest Pain Last Admin: 03/06/25 16:33 Dose: 0.4 mg Documented By: RACHAEL Ondansetron HCl (Ondansetron Hcl 4 Mg/2 Ml Vial) 4 mg IVPUSH Q4H PRN PRN Reason: Nausea and Vomiting Last Admin: 03/07/25 09:09 Dose: 4 mg Documented By: RACHAEL Pantoprazole Sodium (Pantoprazole Sodium 40 Mg/10 Ml Vial) 40 mg IVPUSH BID@0630,1630 [facility] Last Admin: 03/09/25 05:53 Dose: 40 mg Documented By: BEBA Polyethylene Glycol (Polyethylene Glycol 3350 17 Gm Powd.Pack) 17 gm PO DAILY [facility] Last Admin: 03/08/25 10:07 Dose: Not Given Documented By: JUNIOR Non-Admin Reason: Patient Refused Sertraline HCl (Sertraline Hcl 50 Mg Tablet) 150 mg PO DAILY [facility] Last Admin: 03/08/25 10:06 Dose: 150 mg Documented By: JUNIOR Sevelamer Carbonate (Sevelamer Carbonate Tablet 800 Mg Tablet) 800 mg PO TIDWM@0800,1200,1700 [facility] Last Admin: 03/08/25 16:25 Dose: 800 mg Documented By: BEBA Sodium Chloride (0.9 % Sodium Chloride Flush 3 Ml Syringe) 3 ml IVFLUSH QSHIFT [facility] Last Admin: 03/09/25 01:23 Dose: 3 ml Documented By: BEBA Ticagrelor (Ticagrelor 90 Mg Tablet) 90 mg PO BID [facility] On Hold: 03/05/25 13:05 Last Admin: 03/05/25 08:31 Dose: 90 mg Documented By: SASCHA Vitamin D (Cholecalciferol (Vitamin D3) 25 Mcg Tablet) 25 mcg PO DAILY [facility] Last Admin: 03/08/25 10:06 Dose: 25 mcg Documented By: JUNIOR Labs 03/09/25 05:48 03/09/25 05:48 Labs: Laboratory Results - last 24 hr 03/08/25 03/08/25 03/08/25 11:05 15:18 21:03 MCV MCH MCHC RDW Plt Count MPV Absolute Nucleated RBC Nucleated RBC % (auto) Anion Gap Estim Creat Clear Calc Estimated GFR POC Glucose 134 H 205 H 111 Random Glucose Calcium 03/09/25 03/09/25 03/09/25 05:48 07:38 08:08 MCV 92.0 MCH 31.4 MCHC 34.2 RDW 15.0 Plt Count 195 MPV 11.0 Absolute Nucleated RBC 0.000 Nucleated RBC % (auto) 0.0 Anion Gap 18 Estim Creat Clear Calc 5.9 Estimated GFR 6 POC Glucose 54 L* 99 Random Glucose 56 L* Calcium 9.4 Assessment and Plan (1) GI (gastrointestinal hemorrhage): Status: Acute Plan d7, 70yo F with ESRD on HD TuThSa, HFpEF, DM2, HTN, anemia, SHELIA, HLD, CAD s/p CABG, GERD, asthma, and depression presenting with chest pain, admitted for hypoxia and NSTEMI; hospitalization complicated by GI bleeding while on heparin drip acute blood loss anemia due to GI bleed - transfused 2u pRBCs and given desmopressin 03/06; H+H stable; GI following; 2 CTAs without bleeding source identified; holding DAPT with ASA + ticagrelor for now, continue IV PPI, will advance to solid diet today NSTEMI CAD - DAPT on hold, not candidate for PCI due to GI bleed, [place] [facility] [place], continue statin + ezetimibe, increase Imdur, Cardiology following - TTE 03/04/25: - The left ventricular systolic function is normal. The calculated ejection fraction is 60% by biplane method. - The basal inferior and basal inferolateral segments are akinetic. - Overall, probable moderate aortic stenosis. hyperK ESRD on HD - low-K diet, HD Monday, usual schedule is TuTa AHRF due to acute/chronic HFpEF - resolved after HD HTN - continue Imdur, amlodipine, hydralazine; carvedilol on hold for bradycardia DM2 with hypoglycemia - d/c'ed am Lantus; d/c hs Lantus SHELIA - intolerant of CPAP GERD - PPI mild persistent asthma not in acute exac - continue Breo, montelukast, prn albuterol depression - continue sertraline VTE ppx - SCDs dispo - TBD In my clinical judgment, the patient requires continued inpatient hospitalization for the following reasons: NSTEMI, GI bleed Total time managing care of this patient today: 45 minutes. Quality Stroke Does the patient have a stroke diagnosis?: No VTE Prior VTE?: No VTE Risk Level:: Medical - moderate - high VTE Device Contraindication: N/A - Device Ordered VTE Drug Contraindication: Treatment Not Tolerated
[2025-03-09 11:42] LABS: Glucose, Whole Blood 105 mg/dL (60-115)
[2025-03-09 12:12] LABS: Hematocrit 30.3 % (37.0-47.0); Hemoglobin 10.4 g/dl (12.0-16.0)
[2025-03-09] MEDS: Sevelamer Carbonate Tablet 800 MG TABLET PO ×2 (13:32→17:02)
[2025-03-09 16:05] LABS: Glucose, Whole Blood 129 mg/dL (60-115)
--- NOTE | 2025-03-09 20:04 | PC.NURSE ---
Pt had large dark, bloody stool. Ambualted to BR, no dizziness. Dr. Mo notified. STAT H&H ordered. .
[2025-03-09 21:50] LABS: Glucose, Whole Blood 88 mg/dL (60-115)
[2025-03-09 22:04] LABS: Glucose, Whole Blood 90 mg/dL (60-115)
[2025-03-10] VITALS (8 sets, daily range): BP systolic 131–181; BP diastolic 58–74; PULSE 58–69; RESP 17–20; TEMP 36.3–36.6; O2SAT 96–100
[2025-03-10 07:20] LABS: Glucose, Whole Blood 94 mg/dL (60-115)
[2025-03-10 07:37] LABS: Hematocrit 26.8 % (37.0-47.0); Hemoglobin 9.0 g/dl (12.0-16.0); Mean Corpuscular HGB Conc 33.6 g/dl (31.0-35.0); Mean Corpuscular Hemoglobin 31.5 pg (27.0-33.0); Mean Corpuscular Volume 93.7 fL (80.0-98.0); NRBC Abs Auto 0.000 X10*3/uL (0.0-0.012); NRBC Pct Auto 0.0 /100WBC (0.0-0.2); Platelet Count 182 X10*3/uL (160-400); Red Blood Count 2.86 X10*6/uL (4.20-5.50); White Blood Count 4.8 X10*3/uL (4.8-10.8)
[2025-03-10 08:05] LABS: Anion Gap 20 (12-20); Blood Urea Nitrogen 52 mg/dL (9-16); Calcium 9.1 mg/dL (8.4-10.2); Carbon Dioxide 26 mmol/L (22-29); Chloride 98 mmol/L (96-108); Creatinine Clr Calc Pharmacy 4.7; Estimated Glomerular Filt Rate 5; Potassium 4.7 mmol/L (3.3-5.1); Sodium 139 mmol/L (135-145)
[2025-03-10] MEDS: Fluticasone/Vilanterol 100/25 BLST.W.DEV 1 PUFF INHALE (08:08)
--- NOTE | 2025-03-10 08:14 | P.PNIM_ITS ---
Subjective Subjective Date of Service: 03/10/25 Interval History: This history was taken in [place] from the patient. Has occasional maroon-colored bloody BM but no abd pain, BP is normal to high, Hb stable Chest pressure resolved Tolerating diet Review of Systems Review of Systems: Yes all other systems are reviewed and are negative Physical Exam 2 Vital Signs: Vital Signs: Last Vital Signs Temp 97.3 F 03/10/25 08:00 Pulse 59 03/10/25 08:09 Resp 17 03/10/25 08:09 BP 181/74 H 03/10/25 08:00 Pulse Ox 99 03/10/25 08:00 O2 Del Method Room Air 03/10/25 08:00 O2 Flow Rate 1 03/07/25 03:46 BMI result Body Mass Index 22.3 Gen: in no acute distress HEENT: sclera anicteric, moist mucus membranes Neck: supple Lungs: clear to auscultation bilaterally Heart: regular rate and rhythm, no murmurs Abd: soft, non-tender, non-distended Ext: no edema, LUE fistula Skin: warm/well-perfused Neuro: alert and oriented x3, no focal findings Psych: appropriate affect Objective Data Active Medications Acetaminophen (Acetaminophen 325 Mg Tablet) 975 mg PO Q6H PRN PRN Reason: Pain, Mild 1-3,fever,headache Last Admin: 03/09/25 09:48 Dose: 975 mg Documented By: MINGO Amlodipine Besylate (Amlodipine Besylate 10 Mg Tablet) 10 mg PO DAILY [facility]; Protocol Last Admin: 03/09/25 09:48 Dose: 10 mg Documented By: MINGO Ascorbic Acid (Ascorbic Acid 500 Mg Tablet) 500 mg PO DAILY [facility] Last Admin: 03/09/25 09:48 Dose: 500 mg Documented By: MINGO Aspirin (Aspirin Enteric Coated 81 Mg Tablet.) 81 mg PO BEDTIME [facility] On Hold: 03/05/25 13:04 Last Admin: 03/04/25 21:06 Dose: 81 mg Documented By: NONI Aspirin (Aspirin 81 Mg Tab.Chew) 81 mg PO DAILY [facility] Atorvastatin Calcium (Atorvastatin Calcium 80 Mg Tablet) 80 mg PO BEDTIME [facility] Last Admin: 03/09/25 22:19 Dose: 80 mg Documented By: SHARON Calcium Carbonate (Calcium Carbonate 750 Mg Tab.Chew) 750 mg PO Q4H PRN PRN Reason: Heartburn Carvedilol (Carvedilol 6.25 Mg Tablet) 6.25 mg PO BID [facility]; Protocol On Hold: 03/07/25 09:00 Last Admin: 03/07/25 07:48 Dose: Not Given Documented By: RACHAEL Non-Admin Reason: Decreased Heart Rate Dextrose (Dextrose 50 % 25 Gm/50 Ml Syringe) 25 gm IVPUSH Q15M PRN; Protocol PRN Reason: per Hypoglycemia Standing Ord. Diphenhydramine HCl (Diphenhydramine Hcl 25 Mg Capsule) 25 mg PO Q8H PRN PRN Reason: Itching Last Admin: 03/09/25 22:19 Dose: 25 mg Documented By: SHARON Docusate Sodium (Docusate Sodium 100 Mg Capsule) 100 mg PO BID PRN PRN Reason: Constipation Ezetimibe (Ezetimibe 10 Mg Tablet) 10 mg PO DAILY [facility] Last Admin: 03/09/25 09:48 Dose: 10 mg Documented By: MINGO Fluticasone/Vilanterol (Fluticasone/Vilanterol 100/25 Blst.W.Dev) 1 puff INHALE RDAILY [facility] Last Admin: 03/10/25 08:08 Dose: 1 puff Documented By: MARIELA Glucose (Glucose Gel 15 Gm Gel..Gram.) 15 gm PO Q15M PRN; Protocol PRN Reason: per Hypoglycemia Standing Ord. Last Admin: 03/07/25 07:17 Dose: 15 gm Documented By: RACHAEL Hydralazine HCl (Hydralazine Hcl 25 Mg Tablet) 75 mg PO TID [facility]; Protocol On Hold: 03/08/25 16:16 Last Admin: 03/08/25 16:18 Dose: Not Given Documented By: BEBA Non-Admin Reason: hold per Insulin Glargine (Insulin Glargine,Hum.Rec.Anlog 100 Unit/Ml 10 Ml Vial) 5 unit SUBCUT BEDTIME [facility] On Hold: 03/09/25 08:02 Last Admin: 03/08/25 21:40 Dose: 5 unit Documented By: BEBA Insulin Human Lispro (Insulin Lispro 100 Unit/Ml 3 Ml Vial) 0 unit SUBCUT QIDACHS [facility]; Protocol Last Admin: 03/10/25 07:38 Dose: Not Given Documented By: CORBIN Non-Admin Reason: No Insulin Coverage Isosorbide Mononitrate (Isosorbide Mononitrate 30 Mg Tab.Er.24h) 90 mg PO DAILY [facility]; Protocol Last Admin: 03/09/25 10:01 Dose: 90 mg Documented By: MINGO Comments: returned the dc'd dose. unable to remove again. giving 90mg dose instead of 60mg + 30mg now dose. Magnesium Hydroxide (Milk Of Magnesia 30 Ml Oral.Susp) 30 ml PO DAILY PRN PRN Reason: Constipation Melatonin (Melatonin 3 Mg Tablet) 6 mg PO BEDTIME PRN PRN Reason: Insomnia Last Admin: 03/09/25 22:19 Dose: 6 mg Documented By: SHARON Montelukast Sodium (Montelukast Sodium 10 Mg Tablet) 10 mg PO BEDTIME [facility] Last Admin: 03/09/25 22:19 Dose: 10 mg Documented By: SHARON Nitroglycerin (Nitroglycerin 0.4 Mg Tab.Subl) 0.4 mg SUBLINGUAL Q5MX3 PRN PRN Reason: Chest Pain Last Admin: 03/06/25 16:33 Dose: 0.4 mg Documented By: RACHAEL Ondansetron HCl (Ondansetron Hcl 4 Mg/2 Ml Vial) 4 mg IVPUSH Q4H PRN PRN Reason: Nausea and Vomiting Last Admin: 03/09/25 14:43 Dose: 4 mg Documented By: MINGO Pantoprazole Sodium (Pantoprazole Sodium 40 Mg/10 Ml Vial) 40 mg IVPUSH BID@0630,1630 [facility] Last Admin: 03/10/25 06:01 Dose: 40 mg Documented By: SHARON Polyethylene Glycol (Polyethylene Glycol 3350 17 Gm Powd.Pack) 17 gm PO DAILY [facility] Last Admin: 03/09/25 09:58 Dose: Not Given Documented By: MINGO Non-Admin Reason: loose stools Sertraline HCl (Sertraline Hcl 50 Mg Tablet) 150 mg PO DAILY [facility] Last Admin: 03/09/25 09:48 Dose: 150 mg Documented By: MINGO Sevelamer Carbonate (Sevelamer Carbonate Tablet 800 Mg Tablet) 800 mg PO TIDWM@0800,1200,1700 [facility] Last Admin: 03/09/25 17:02 Dose: 800 mg Documented By: MINGO Sodium Chloride (0.9 % Sodium Chloride Flush 3 Ml Syringe) 3 ml IVFLUSH QSHIFT [facility] Last Admin: 03/10/25 00:00 Dose: 3 ml Documented By: JOCELIN Ticagrelor (Ticagrelor 90 Mg Tablet) 90 mg PO BID [facility] On Hold: 03/05/25 13:05 Last Admin: 03/05/25 08:31 Dose: 90 mg Documented By: SASCHA Vitamin D (Cholecalciferol (Vitamin D3) 25 Mcg Tablet) 25 mcg PO DAILY [facility] Last Admin: 03/09/25 09:49 Dose: 25 mcg Documented By: MINGO Labs 03/10/25 06:29 03/10/25 06:29 Labs: Laboratory Results - last 24 hr 03/09/25 03/09/25 03/09/25 11:35 15:52 21:39 MCV MCH MCHC RDW Plt Count MPV Absolute Nucleated RBC Nucleated RBC % (auto) Anion Gap Estim Creat Clear Calc Estimated GFR POC Glucose 105 129 H 88 Random Glucose Calcium 03/09/25 03/10/25 03/10/25 21:57 06:29 07:15 MCV 93.7 MCH 31.5 MCHC 33.6 RDW 14.9 Plt Count 182 MPV 11.4 Absolute Nucleated RBC 0.000 Nucleated RBC % (auto) 0.0 Anion Gap 20 Estim Creat Clear Calc 4.7 Estimated GFR 5 POC Glucose 90 94 Random Glucose 92 Calcium 9.1 Assessment and Plan (1) GI (gastrointestinal hemorrhage): Status: Acute Plan d8, 70yo F with ESRD on HD TuThSa, HFpEF, DM2, HTN, anemia, SHELIA, HLD, CAD s/p CABG, GERD, asthma, and depression presenting with chest pain, admitted for hypoxia and NSTEMI; hospitalization complicated by GI bleeding while on heparin drip acute blood loss anemia due to GI bleed - transfused 2u pRBCs and given desmopressin 03/06; H+H stable; GI following; 2 CTAs without bleeding source identified; holding ticagrelor for now but will resume ASA today, continue IV PPI, tolerating diet NSTEMI CAD - ticagrelor on hold, resume ASA, not candidate for PCI due to GI bleed, [place] [facility] [place], continue statin + ezetimibe, increased Imdur, Cardiology following - TTE 03/04/25: - The left ventricular systolic function is normal. The calculated ejection fraction is 60% by biplane method. - The basal inferior and basal inferolateral segments are akinetic. - Overall, probable moderate aortic stenosis. hyperK ESRD on HD - low-K diet, HD Monday, usual schedule is TuThSa AHRF due to acute/chronic HFpEF - resolved after HD HTN - continue Imdur, amlodipine, hydralazine; carvedilol on hold for bradycardia DM2 with hypoglycemia - d/c'ed am Lantus; d/c hs Lantus SHELIA - intolerant of CPAP GERD - PPI mild persistent asthma not in acute exac - continue Breo, montelukast, prn albuterol depression - continue sertraline VTE ppx - SCDs dispo - TBD; PT eval In my clinical judgment, the patient requires continued inpatient hospitalization for the following reasons: NSTEMI, GI bleed Total time managing care of this patient today: 45 minutes. Quality Stroke Does the patient have a stroke diagnosis?: No VTE Prior VTE?: No VTE Risk Level:: Medical - moderate - high VTE Device Contraindication: N/A - Device Ordered VTE Drug Contraindication: Treatment Not Tolerated
[2025-03-10] MEDS: Sevelamer Carbonate Tablet 800 MG TABLET PO ×3 (10:59→16:52)
[2025-03-10 11:11] LABS: Glucose, Whole Blood 111 mg/dL (60-115)
[2025-03-10 12:11] LABS: Glucose, Whole Blood 116 mg/dL (60-115)
[2025-03-10] MEDS: iohexoL 350 MG/ML 100 ML INFUS..BTL IV (12:12)
--- NOTE | 2025-03-10 14:32 | MHC.CM.PN ---
Per rounds, pt. to have further evaluation for blurred vision. PT rec. home with services, accepted by [facility] to follow.
--- NOTE | 2025-03-10 14:58 | PM.NEUROCN ---
History of Present Illness Data of Consult Service Date: 03/10/25 Primary Care Provider: Patricia Ingram MD [facility] Reason for consult: Blurred vision 70 years old woman with end-stage renal disease and multiple other medical issues complain of blurred vision and left eye without pain and stroke protocol was initiated. She had a CTA and CTA of brain done that revealed chronic mild microvascular ischemic changes but no vascular or large vessel disease. He did not have any headache. 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 End stage chronic kidney disease Edema Atherosclerotic cardiovascular disease SHELIA (obstructive sleep apnea) Hypercalcemia Asthma DJD (degenerative joint disease) Chronic kidney disease Other and unspecified hyperlipidemia Type 2 diabetes mellitus with unspecified complications Essential hypertension Family History Family History Father Cardiovascular disease Hypertension Mother Cardiovascular disease Hypertension Surgical History Surgical History History of hemorrhoidectomy (01/30/23) H/O colonoscopy Hemorrhoids H/O angioplasty History of tubal ligation History of coronary artery bypass graft (~2017) Social History Social History Household Members: Children Household Members Other:: Son Housing: Apartment Housing Other:: senior apartment Are you a primary healthcare analyst to a significant other at home: No Do you presently have visiting nurse or other home services: No Alcohol intake: never Patient Tobacco Use Status: Never used Tobacco Second Hand Smoke Exposure: No Advance Directives Date on File: 12/03/20 service: No 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al status: disabled 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 Meds Allergies Allergy/AdvReac Type Severity Reaction Status Date / Time No Known Allergies Allergy Verified 03/03/25 03:38 Active Medications: Current Medications Acetaminophen (Acetaminophen 325 Mg Tablet) 975 mg PO Q6H PRN PRN Reason: Pain, Mild 1-3,fever,headache Last Admin: 03/09/25 09:48 Dose: 975 mg Amlodipine Besylate (Amlodipine Besylate 10 Mg Tablet) 10 mg PO DAILY [facility]; Protocol Last Admin: 03/10/25 08:29 Dose: 10 mg Ascorbic Acid (Ascorbic Acid 500 Mg Tablet) 500 mg PO DAILY [facility] Last Admin: 03/10/25 08:30 Dose: 500 mg Aspirin (Aspirin Enteric Coated 81 Mg Tablet.Dr) 81 mg PO BEDTIME [facility] On Hold: 03/05/25 13:04 Last Admin: 03/04/25 21:06 Dose: 81 mg Aspirin (Aspirin 81 Mg Tab.Chew) 81 mg PO DAILY [facility] Last Admin: 03/10/25 08:30 Dose: 81 mg Atorvastatin Calcium (Atorvastatin Calcium 80 Mg Tablet) 80 mg PO BEDTIME [facility] Last Admin: 03/09/25 22:19 Dose: 80 mg Calcium Carbonate (Calcium Carbonate 750 Mg Tab.Chew) 750 mg PO Q4H PRN PRN Reason: Heartburn Carvedilol (Carvedilol 6.25 Mg Tablet) 6.25 mg PO BID [facility]; Protocol On Hold: 03/07/25 09:00 Last Admin: 03/07/25 07:48 Dose: Not Given Dextrose (Dextrose 50 % 25 Gm/50 Ml Syringe) 25 gm IVPUSH Q15M PRN; Protocol PRN Reason: per Hypoglycemia Standing Ord. Diphenhydramine HCl (Diphenhydramine Hcl 25 Mg Capsule) 25 mg PO Q8H PRN PRN Reason: Itching Last Admin: 03/09/25 22:19 Dose: 25 mg Docusate Sodium (Docusate Sodium 100 Mg Capsule) 100 mg PO BID PRN PRN Reason: Constipation Ezetimibe (Ezetimibe 10 Mg Tablet) 10 mg PO DAILY [facility] Last Admin: 03/10/25 08:29 Dose: 10 mg Fluticasone/Vilanterol (Fluticasone/Vilanterol 100/25 Blst.W.Dev) 1 puff INHALE RDAILY [facility] Last Admin: 03/10/25 08:08 Dose: 1 puff Glucose (Glucose Gel 15 Gm Gel..Gram.) 15 gm PO Q15M PRN; Protocol PRN Reason: per Hypoglycemia Standing Ord. Last Admin: 03/07/25 07:17 Dose: 15 gm Hydralazine HCl (Hydralazine Hcl 25 Mg Tablet) 75 mg PO TID [facility]; Protocol On Hold: 03/08/25 16:16 Last Admin: 03/08/25 16:18 Dose: Not Given Insulin Glargine (Insulin Glargine,Hum.Rec.Anlog 100 Unit/Ml 10 Ml Vial) 5 unit SUBCUT BEDTIME [facility] On Hold: 03/09/25 08:02 Last Admin: 03/08/25 21:40 Dose: 5 unit Insulin Human Lispro (Insulin Lispro 100 Unit/Ml 3 Ml Vial) 0 unit SUBCUT QIDACHS [facility]; Protocol Last Admin: 03/10/25 12:31 Dose: Not Given Isosorbide Mononitrate (Isosorbide Mononitrate 30 Mg Tab.Er.24h) 90 mg PO DAILY [facility]; Protocol Last Admin: 03/10/25 08:30 Dose: 90 mg Magnesium Hydroxide (Milk Of Magnesia 30 Ml Oral.Susp) 30 ml PO DAILY PRN PRN Reason: Constipation Melatonin (Melatonin 3 Mg Tablet) 6 mg PO BEDTIME PRN PRN Reason: Insomnia Last Admin: 03/09/25 22:19 Dose: 6 mg Montelukast Sodium (Montelukast Sodium 10 Mg Tablet) 10 mg PO BEDTIME [facility] Last Admin: 03/09/25 22:19 Dose: 10 mg Nitroglycerin (Nitroglycerin 0.4 Mg Tab.Subl) 0.4 mg SUBLINGUAL Q5MX3 PRN PRN Reason: Chest Pain Last Admin: 03/06/25 16:33 Dose: 0.4 mg Ondansetron HCl (Ondansetron Hcl 4 Mg/2 Ml Vial) 4 mg IVPUSH Q4H PRN PRN Reason: Nausea and Vomiting Last Admin: 03/09/25 14:43 Dose: 4 mg Pantoprazole Sodium (Pantoprazole Sodium 40 Mg/10 Ml Vial) 40 mg IVPUSH BID@0630,1630 [facility] Last Admin: 03/10/25 06:01 Dose: 40 mg Polyethylene Glycol (Polyethylene Glycol 3350 17 Gm Powd.Pack) 17 gm PO DAILY [facility] Last Admin: 03/10/25 08:30 Dose: 17 gm Sertraline HCl (Sertraline Hcl 50 Mg Tablet) 150 mg PO DAILY [facility] Last Admin: 03/10/25 08:29 Dose: 150 mg Sevelamer Carbonate (Sevelamer Carbonate Tablet 800 Mg Tablet) 800 mg PO TIDWM@0800,1200,1700 [facility] Last Admin: 03/10/25 14:54 Dose: 800 mg Sodium Chloride (0.9 % Sodium Chloride Flush 3 Ml Syringe) 3 ml IVFLUSH QSHIFT [facility] Last Admin: 03/10/25 11:22 Dose: Not Given Ticagrelor (Ticagrelor 90 Mg Tablet) 90 mg PO BID [facility] On Hold: 03/05/25 13:05 Last Admin: 03/05/25 08:31 Dose: 90 mg Vitamin D (Cholecalciferol (Vitamin D3) 25 Mcg Tablet) 25 mcg PO DAILY [facility] Last Admin: 03/10/25 08:30 Dose: 25 mcg Home Medications ?Medication ?Instructions ?Recorded ?Confirmed ?Last Taken ?Type sertraline 100 mg tablet 150 mg PO DAILY 06/10/20 03/03/25 11/28/21 History ascorbic acid (vitamin C) 500 mg 1 tab PO DAILY 12/03/20 03/03/25 11/28/21 History tablet (Vitamin C) montelukast 10 mg tablet 10 mg PO BEDTIME 12/03/20 03/03/25 11/28/21 History insulin glargine 100 unit/mL (3 8 unit subcut DAILY 01/25/23 03/03/25 Unknown History mL) subcutaneous pen (Lantus Solostar U-100 Insulin) sevelamer carbonate 800 mg tablet 800 mg PO TIDWM@0800,1200,1700 01/25/23 03/03/25 Unknown History acetaminophen 500 mg tablet 1,000 mg PO Q8H PRN Pain 02/08/23 03/03/25 Unknown History budesonide-formoterol HFA 80 2 puff inhalation BID 02/08/23 03/03/25 Unknown History mcg-4.5 mcg/actuation aerosol inhaler (Symbicort) cholecalciferol (vitamin D3) 25 25 mcg PO DAILY 01/01/24 03/03/25 Unknown History mcg (1,000 unit) tablet carvedilol 3.125 mg tablet 3.125 mg PO BID 08/13/24 03/03/25 Unknown History docusate sodium 100 mg capsule 100 mg PO BID PRN Constipation 08/13/24 03/03/25 Unknown History ezetimibe 10 mg tablet 10 mg PO DAILY 08/13/24 03/03/25 Unknown History insulin glargine 100 unit/mL 7 unit subcut BEDTIME 08/13/24 03/03/25 Unknown History subcutaneous solution (Lantus U-100 Insulin) melatonin 5 mg tablet 5 mg PO BEDTIME PRN Insomnia 08/13/24 03/03/25 Unknown History ticagrelor 90 mg tablet (Brilinta) 90 mg PO BID 08/13/24 03/03/25 Unknown History insulin aspart U-100 100 unit/mL 3 unit subcut DAILY@1200 08/26/24 03/03/25 Unknown History (3 mL) subcutaneous pen (Novolog FlexPen U-100 Insulin aspart) insulin aspart U-100 100 unit/mL See Protocol subcut BIDAC@0730,1630 08/26/24 03/03/25 Unknown History (3 mL) subcutaneous pen (Novolog FlexPen U-100 Insulin aspart) isosorbide mononitrate 30 mg 30 mg PO DAILY 10/02/24 03/03/25 Unknown History tablet,extended release 24 hr pantoprazole 40 mg tablet,delayed 40 mg PO DAILY@0630 10/10/24 03/03/25 Unknown History release aspirin 81 mg tablet,delayed 81 mg PO BEDTIME 03/03/25 03/03/25 Unknown History release evolocumab 140 mg/mL subcutaneous 140 mg subcut Q2W 03/03/25 03/03/25 Unknown History pen injector (Repatha SureClick) Physical Exam Vital Signs: Vital Signs: Last Vital Signs Temp 97.4 F 03/10/25 12:00 Pulse 69 03/10/25 12:00 Resp 20 03/10/25 12:00 BP 161/68 H 03/10/25 12:00 Pulse Ox 100 03/10/25 12:00 O2 Del Method Room Air 03/10/25 12:00 O2 Flow Rate 1 03/07/25 03:46 BMI result Body Mass Index 22.3 Neuro: Other: She is alert and awake with normal spontaneity of speech fluency comprehension and affect. Face is symmetrical. Visual marie are full. Pupils are about 3 mm round reactive. Extraocular muscles were intact. There was no focal arm or leg weakness. Plantars are flexor. Deep tendon reflexes are absent. Speech is normal. Results Labs 03/10/25 06:29 03/10/25 06:29 Labs: Short CBC 03/10/25 Range/Units 06:29 WBC 4.8 (4.8-10.8) X10*3/uL Hgb 9.0 L (12.0-16.0) g/dl Hct 26.8 L (37.0-47.0) % Plt Count 182 (160-400) X10*3/uL [facility] 03/10/25 06:29 Sodium 139 Potassium 4.7 Chloride 98 Carbon Dioxide 26 BUN 52 H Creatinine 8.10 H* Calcium 9.[address] revealed mild chronic microvascular ischemic changes and CTA of brain and neck was okay. Assessment and Plan (1) Blurred vision: Status: Acute 70 years old woman with complain of blurred vision in left eye. Examination was nonfocal and and head CT and CTA did not reveal any significant pathology. 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 Treatment of this kind of condition, if confirmed by academic adviser, is control of vascular risk factors, statin and anti-platelet agent. Outpatient ophthalmology consultation is recommended Procedures Date of Service Date of Service: 03/10/25
[2025-03-10 16:10] LABS: Glucose, Whole Blood 123 mg/dL (60-115)
[2025-03-10] MEDS: 0.9 % Sodium Chloride Flush 3 ML SYRINGE IVFLUSH ×3 (16:53→22:30)
--- NOTE | 2025-03-10 19:06 | P.PNNP_ITS ---
Subjective Subjective Date of Service: 03/10/25 Interval history: Seen and examined, ques of acute CVA with acute visula changes HD treatment stopped No evid of HD treatment related event causing the vsion changes Physical Exam 2 Vital Signs: Vital Signs: Last Vital Signs Temp 97.9 F 03/10/25 15:43 Pulse 69 03/10/25 15:43 Resp 18 03/10/25 15:43 BP 139/74 03/10/25 15:43 Pulse Ox 99 03/10/25 15:43 O2 Del Method Room Air 03/10/25 15:43 O2 Flow Rate 1 03/07/25 03:46 BMI result Body Mass Index 22.3 Const: General: no acute distress HEENT: Head: Yes normocephalic and Yes atraumatic Neck: Neck: Yes supple Resp: Auscultation: diminished lung sounds Cardio: Heart sounds: S1 normal heart sound present and S2 normal heart sound present GI: Palpation (GI): Soft to palpation and nontender Extrem: General: No edema Objective Data Labs 03/10/25 06:29 03/10/25 06:29 Labs: Laboratory Results - last 24 hr 03/09/25 03/09/25 03/10/25 21:39 21:57 06:29 WBC 4.8 RBC 2.86 L Hgb 9.0 L Hct 26.8 L MCV 93.7 MCH 31.5 MCHC 33.6 RDW 14.9 Plt Count 182 MPV 11.4 Absolute Nucleated RBC 0.000 Nucleated RBC % (auto) 0.0 Sodium 139 Potassium 4.7 Chloride 98 Carbon Dioxide 26 Anion Gap 20 BUN 52 H Creatinine 8.10 H* Estim Creat Clear Calc 4.7 Estimated GFR 5 POC Glucose 88 90 Random Glucose 92 Calcium 9.1 03/10/25 03/10/25 03/10/25 07:15 09:14 11:49 WBC RBC Hgb Hct MCV MCH MCHC RDW Plt Count MPV Absolute Nucleated RBC Nucleated RBC % (auto) Sodium Potassium Chloride Carbon Dioxide Anion Gap BUN Creatinine Estim Creat Clear Calc Estimated GFR POC Glucose 94 111 116 H Random Glucose Calcium 03/10/25 16:02 WBC RBC Hgb Hct MCV MCH MCHC RDW Plt Count MPV Absolute Nucleated RBC Nucleated RBC % (auto) Sodium Potassium Chloride Carbon Dioxide Anion Gap BUN Creatinine Estim Creat Clear Calc Estimated GFR POC Glucose 123 H Random Glucose Calcium Procedures Date of Service Date of Service: 03/10/25 Assessment & Plan Assessment and plan (1) ESRD (end stage renal disease) on dialysis: Status: Acute (2) Essential hypertension: Status: Acute (3) Anemia: Status: Acute Plan HD aborted today due to acute vis changes usually has HD at [facility] tts2 admitted with acute coronary syndrome known HFpEF nephrogenic anemia HyperK REC HD again Tues and cont TTS Neuro eval ELYSSA phosphate binders Time Spent With Patient Time: Total time managing care of this patient today ____ minutes. Progress Note: Quality Stroke Does the patient have a stroke diagnosis?: No
[2025-03-10 21:07] LABS: Glucose, Whole Blood 163 mg/dL (60-115)
[2025-03-11 03:00] VITALS: BP 110/60; PULSE 62; RESP 20; TEMP 36.2; O2SAT 96
[2025-03-11] MEDS: Milk of Magnesia 30 ML ORAL.SUSP PO (05:35)
[2025-03-11 06:39] LABS: Hematocrit 26.5 % (37.0-47.0); Hemoglobin 9.2 g/dl (12.0-16.0); Mean Corpuscular HGB Conc 34.7 g/dl (31.0-35.0); Mean Corpuscular Hemoglobin 31.7 pg (27.0-33.0); Mean Corpuscular Volume 91.4 fL (80.0-98.0); NRBC Abs Auto 0.000 X10*3/uL (0.0-0.012); NRBC Pct Auto 0.0 /100WBC (0.0-0.2); Platelet Count 183 X10*3/uL (160-400); Red Blood Count 2.90 X10*6/uL (4.20-5.50); White Blood Count 5.1 X10*3/uL (4.8-10.8)
[2025-03-11 07:10] LABS: Glucose, Whole Blood 79 mg/dL (60-115)
[2025-03-11] MEDS: Fluticasone/Vilanterol 100/25 BLST.W.DEV 1 PUFF INHALE (07:55)
[2025-03-11 07:58] VITALS: PULSE 66; RESP 18; O2SAT 99
[2025-03-11 08:00] VITALS: BP 170/58; PULSE 66; RESP 17; TEMP 36.5; O2SAT 97
[2025-03-11] MEDS: 0.9 % Sodium Chloride Flush 3 ML SYRINGE IVFLUSH ×2 (09:14→17:08)
[2025-03-11] MEDS: Sevelamer Carbonate Tablet 800 MG TABLET PO ×3 (09:15→17:08)
[2025-03-11 11:22] LABS: Glucose, Whole Blood 161 mg/dL (60-115)
[2025-03-11 11:22] LABS: Glucose, Whole Blood 115 mg/dL (60-115)
[2025-03-11 11:48] VITALS: BP 149/67; PULSE 58; RESP 20; TEMP 36.3; O2SAT 98
--- NOTE | 2025-03-11 14:06 | P.PNIM_ITS ---
Subjective Subjective Date of Service: 03/11/25 Physical Exam 2 Vital Signs: Vital Signs: Last Vital Signs Temp 97.3 F 03/11/25 11:48 Pulse 58 03/11/25 11:48 Resp 20 03/11/25 11:48 BP 149/67 H 03/11/25 11:48 Pulse Ox 98 03/11/25 11:48 O2 Del Method Room Air 03/11/25 11:48 O2 Flow Rate 1 03/07/25 03:46 BMI result Body Mass Index 22.3 Objective Data Active Medications Acetaminophen (Acetaminophen 325 Mg Tablet) 975 mg PO Q6H PRN PRN Reason: Pain, Mild 1-3,fever,headache Last Admin: 03/09/25 09:48 Dose: 975 mg Documented By: MINGO Amlodipine Besylate (Amlodipine Besylate 10 Mg Tablet) 10 mg PO DAILY [facility]; Protocol Last Admin: 03/11/25 09:12 Dose: 10 mg Documented By: CORBIN Ascorbic Acid (Ascorbic Acid 500 Mg Tablet) 500 mg PO DAILY [facility] Last Admin: 03/11/25 09:12 Dose: 500 mg Documented By: CORBIN Aspirin (Aspirin Enteric Coated 81 Mg Tablet.) 81 mg PO BEDTIME [facility] On Hold: 03/05/25 13:04 Last Admin: 03/04/25 21:06 Dose: 81 mg Documented By: NONI Aspirin (Aspirin 81 Mg Tab.Chew) 81 mg PO DAILY [facility] Last Admin: 03/11/25 09:13 Dose: 81 mg Documented By: CORBIN Atorvastatin Calcium (Atorvastatin Calcium 80 Mg Tablet) 80 mg PO BEDTIME [facility] Last Admin: 03/10/25 22:30 Dose: 80 mg Documented By: JOCELIN Benzonatate (Benzonatate 100 Mg Capsule) 200 mg PO TID PRN PRN Reason: Cough Last Admin: 03/11/25 05:34 Dose: 200 mg Documented By: JOCELIN Calcium Carbonate (Calcium Carbonate 750 Mg Tab.Chew) 750 mg PO Q4H PRN PRN Reason: Heartburn Carvedilol (Carvedilol 6.25 Mg Tablet) 6.25 mg PO BID [facility]; Protocol On Hold: 03/07/25 09:00 Last Admin: 03/07/25 07:48 Dose: Not Given Documented By: RACHAEL Non-Admin Reason: Decreased Heart Rate Dextrose (Dextrose 50 % 25 Gm/50 Ml Syringe) 25 gm IVPUSH Q15M PRN; Protocol PRN Reason: per Hypoglycemia Standing Ord. Diphenhydramine HCl (Diphenhydramine Hcl 25 Mg Capsule) 25 mg PO Q8H PRN PRN Reason: Itching Last Admin: 03/10/25 22:37 Dose: 25 mg Documented By: JOCELIN Docusate Sodium (Docusate Sodium 100 Mg Capsule) 100 mg PO BID PRN PRN Reason: Constipation Ezetimibe (Ezetimibe 10 Mg Tablet) 10 mg PO DAILY [facility] Last Admin: 03/11/25 09:13 Dose: 10 mg Documented By: CORBIN Fluticasone/Vilanterol (Fluticasone/Vilanterol 100/25 Blst.W.Dev) 1 puff INHALE RDAILY [facility] Last Admin: 03/11/25 07:55 Dose: 1 puff Documented By: RJ Glucose (Glucose Gel 15 Gm Gel..Gram.) 15 gm PO Q15M PRN; Protocol PRN Reason: per Hypoglycemia Standing Ord. Last Admin: 03/07/25 07:17 Dose: 15 gm Documented By: RACHAEL Guaifenesin/Codeine Phosphate (Guaifen/Codeine Sf 200/20/10ml 10 Ml Liquid) 5 ml PO Q6H PRN PRN Reason: Cough Hydralazine HCl (Hydralazine Hcl 25 Mg Tablet) 75 mg PO TID [facility]; Protocol On Hold: 03/08/25 16:16 Last Admin: 03/08/25 16:18 Dose: Not Given Documented By: BEBA Non-Admin Reason: hold per Insulin Glargine (Insulin Glargine,Hum.Rec.Anlog 100 Unit/Ml 10 Ml Vial) 5 unit SUBCUT BEDTIME [facility] On Hold: 03/09/25 08:02 Last Admin: 03/08/25 21:40 Dose: 5 unit Documented By: BEBA Insulin Human Lispro (Insulin Lispro 100 Unit/Ml 3 Ml Vial) 0 unit SUBCUT QIDACHS [facility]; Protocol Last Admin: 03/11/25 12:19 Dose: 2 unit Documented By: CORBIN Isosorbide Mononitrate (Isosorbide Mononitrate 30 Mg Tab.Er.24h) 90 mg PO DAILY [facility]; Protocol Last Admin: 03/11/25 09:13 Dose: 90 mg Documented By: CORBIN Magnesium Hydroxide (Milk Of Magnesia 30 Ml Oral.Susp) 30 ml PO DAILY PRN PRN Reason: Constipation Last Admin: 03/11/25 05:35 Dose: 30 ml Documented By: JOCELIN Melatonin (Melatonin 3 Mg Tablet) 6 mg PO BEDTIME PRN PRN Reason: Insomnia Last Admin: 03/09/25 22:19 Dose: 6 mg Documented By: SHARON Montelukast Sodium (Montelukast Sodium 10 Mg Tablet) 10 mg PO BEDTIME [facility] Last Admin: 03/10/25 22:30 Dose: 10 mg Documented By: JOCELIN Nitroglycerin (Nitroglycerin 0.4 Mg Tab.Subl) 0.4 mg SUBLINGUAL Q5MX3 PRN PRN Reason: Chest Pain Last Admin: 03/06/25 16:33 Dose: 0.4 mg Documented By: RACHAEL Ondansetron HCl (Ondansetron Hcl 4 Mg/2 Ml Vial) 4 mg IVPUSH Q4H PRN PRN Reason: Nausea and Vomiting Last Admin: 03/09/25 14:43 Dose: 4 mg Documented By: MINGO Pantoprazole Sodium (Pantoprazole Sodium 40 Mg/10 Ml Vial) 40 mg IVPUSH BID@0630,1630 [facility] Last Admin: 03/11/25 05:34 Dose: 40 mg Documented By: JOCELIN Polyethylene Glycol (Polyethylene Glycol 3350 17 Gm Powd.Pack) 17 gm PO DAILY [facility] Last Admin: 03/11/25 09:22 Dose: Not Given Documented By: CORBIN Non-Admin Reason: Patient Refused Sertraline HCl (Sertraline Hcl 50 Mg Tablet) 150 mg PO DAILY [facility] Last Admin: 03/11/25 09:13 Dose: 150 mg Documented By: CORBIN Sevelamer Carbonate (Sevelamer Carbonate Tablet 800 Mg Tablet) 800 mg PO TIDWM@0800,1200,1700 [facility] Last Admin: 03/11/25 12:19 Dose: 800 mg Documented By: CORBIN Sodium Chloride (0.9 % Sodium Chloride Flush 3 Ml Syringe) 3 ml IVFLUSH QSHIFT [facility] Last Admin: 03/11/25 09:14 Dose: 3 ml Documented By: CORBIN Ticagrelor (Ticagrelor 90 Mg Tablet) 90 mg PO BID [facility] On Hold: 03/05/25 13:05 Last Admin: 03/05/25 08:31 Dose: 90 mg Documented By: SASCHA Vitamin D (Cholecalciferol (Vitamin D3) 25 Mcg Tablet) 25 mcg PO DAILY [facility] Last Admin: 03/11/25 09:13 Dose: 25 mcg Documented By: CORBIN Labs 03/11/25 06:25 03/10/25 06:29 Labs: Laboratory Results - last 24 hr 03/10/25 03/10/25 03/11/25 16:02 20:37 06:25 MCV 91.4 MCH 31.7 MCHC 34.7 RDW 14.7 Plt Count 183 MPV 10.5 Absolute Nucleated RBC 0.000 Nucleated RBC % (auto) 0.0 POC Glucose 123 H 163 H 03/11/25 03/11/25 03/11/25 07:05 07:56 11:04 MCV MCH MCHC RDW Plt Count MPV Absolute Nucleated RBC Nucleated RBC % (auto) POC Glucose 79 115 161 H Assessment and Plan (1) Essential hypertension: Status: Acute Plan 70yo F with ESRD on HD TuThSa, HFpEF, DM2, HTN, anemia, SHELIA, HLD, CAD s/p CABG, GERD, asthma, and depression presenting with chest pain, admitted for hypoxia and NSTEMI; hospitalization complicated by GI bleeding while on heparin drip Blurred vision while in dialysis no stroke in imaging Acute blood loss anemia due to GI bleed transfused 2u pRBCs and given desmopressin 03/06; H+H stable GI following; 2 CTAs without bleeding source identified holding ticagrelor for now, resume ASA today continue IV PPI, tolerating diet NSTEMI CAD ticagrelor on hold, resume ASA, not candidate for PCI due to GI bleed, pt declined transfer to [facility] regardless, continue statin + ezetimibe, increased Imdur, Cardiology following TTE 03/04/25>The left ventricular systolic function is normal. ejection fraction is 60% by biplane method. hyperK ESRD on HD usual schedule is TuThSa AHRF due to acute/chronic HFpEF resolved after HD HTN continue Imdur, amlodipine, hydralazine; carvedilol on hold for bradycardia DM2 with hypoglycemia d/c'ed am Lantus; d/c hs Lantus SHELIA intolerant of CPAP GERD PPI mild persistent asthma not in acute exac continue Breo, montelukast, prn albuterol depression continue sertraline VTE ppx SCDs Quality Stroke Does the patient have a stroke diagnosis?: No VTE Prior VTE?: No VTE Risk Level:: Medical - moderate - high VTE Device Contraindication: N/A - Device Ordered VTE Drug Contraindication: Treatment Not Tolerated
--- NOTE | 2025-03-11 15:19 | P.DS_ITS ---
DS: Providers Provider Date of Service: 03/11/25 Date of admission: 03/03/25 11:22 Date of discharge: 03/11/25 Primary care physician: Patricia Ingram MD Consults: 03/03/25 11:13 Consult to Cardiology Routine Consulting Provider: [facility] Reason for consultation: Chest pain, acute respiratory failure Has provider been notified: Yes 03/05/25 09:22 Consult to Gastroenterology Stat Consulting Provider: [facility] Reason for consultation: GI Bleed 03/10/25 09:37 Consult to Neurology Routine Consulting Provider: [facility] Reason for consultation: oscillopsia L eye new onset AM DS: Diagnosis Discharge Diagnosis (1) Essential hypertension: Status: Acute DS: Summary Hospital Course Hospital Course: History and physical as per admitting provider. Kavitha Padilla this is a 71 years old woman with past medical history significant for end-stage renal disease on hemodialysis (TTS), CAD status post CABG, HFpEF, type 2 diabetes mellitus, obstructive sleep apnea and chronic anemia presents to the emergency department complaining of mid chest pressure that started 2 days ago associated with cough, nausea, vomiting x1 and generalized abdominal discomfort. Pain was 10/10 and was radiating to both arms. She denied any fever, cough, headache, palpitations, leg swelling or shortness on breath. Last hemodialysis session was Monday without any complications. She is a former tobacco smoker, quit smoking many years ago. She did not use her CPAP or home oxygen. She was brought to the emergency department by EMS treating her with oxygen. In the ED, she was found to have tachypnea, and elevated blood pressure (max 203/70). Her oxygen saturation was 73% on room air and now requiring 3 L/min supplemental oxygen via nasal cannula. Blood workup showed no leukocytosis. Hemoglobin is 8.7. There is no leukocytosis and platelets are normal. BUN is 56 and creatinine 5.83. There are no electrolyte imbalances. Glucose is 119. Troponin x3 24.6 -> 32.2-> 44.6. ECG showed normal sinus rhythm, 77 bpm, RBBB, LAFB. CXR showed cardiomegaly, pulmonary vascular congestion and probable trace bilateral pleural effusions. ED tx: Dilaudid 0.5 mg IV 70-year-old woman treated for acute blood loss anemia secondary to GI bleed. Transfuse 2 units of packed red blood cells, given desmopressin on 03/06/2025. H&H has stabilized. Seen evaluated by Gastroenterology, had to abdominal CT is without bleeding source identified. Testicular was held but aspirin was resumed. The patient was also treated with IV fluids, IV ppi. Now tolerating diet and stable H&H. All medications restarted. NSTEMI with a history of coronary artery disease. Testicular has been on hold due to GI bleed but we will be resumed on discharge as well as aspirin. Not a candidate for PCI secondary to GI bleed the patient declined transfer to [facility] regardless. She will continue statins, Imdur. TTE on 03/04/2025 showed left ventricular systolic function normal with ejection fraction of 60%. No complaints of chest pain. Patient is stable at this time. Hyperkalemia. End-stage renal disease on dialysis. Monday, and Monday. Chronic heart failure with preserved ejection fraction. Continue hemodialysis Diabetes mellitus type 2 with hypoglycemia. Lantus was on hold. Decreased to 5 units at bedtime from 8 units. Continue checking blood sugars as normal. Obstructive sleep apnea. Intolerant to CPAP. Mild persistent asthma with no acute exacerbation. Continue Breo, montelukast and p.r.n. albuterol. Depression. Continue sertraline Time Attestation Discharge Coordination Time (in mins): 42 Quality: Safe Use of Opioids Does Pt have an Active Cancer Diagnosis on the Problem List?: No Quality: Stroke Does the patient have a stroke diagnosis?: No Physical Exam Exam: Exam: Appearing in no acute distress head is normocephalic atraumatic eyes pupils are PERRLA sclera is anicteric mouth throat mucous membranes are intact and moist neck is supple no lymphadenopathy, no JVD noted lung sounds are clear to auscultation heart regular rate rhythm, clear S1, S2 positive bowel sounds, abdomen is soft, nontender neuro patient is alert x3, no focal deficits Vital Signs: Vital Signs: Last Vital Signs Temp 97.3 F 03/11/25 11:48 Pulse 58 03/11/25 11:48 Resp 20 03/11/25 11:48 BP 149/67 H 03/11/25 11:48 Pulse Ox 98 03/11/25 11:48 O2 Del Method Room Air 03/11/25 11:48 O2 Flow Rate 1 03/07/25 03:46 BMI result Body Mass Index 22.3 DS: Data Data Completed and Pending Completed studies during hospitalization [Text1]: Procedures Excision of Stomach, Pylorus, Via Natural or Artificial Opening Endoscopic, Diagnostic (08/26/24) Insertion of Infusion Device into Superior Vena Cava, Percutaneous Approach (07/11/21) Insertion of Tunneled Vascular Access Device into Chest Subcutaneous Tissue and Fascia, Percutaneous Approach (07/11/21) Inspection of Lower Intestinal Tract, Via Natural or Artificial Opening Endoscopic (02/09/23) Inspection of Upper Intestinal Tract, Via Natural or Artificial Opening Endoscopic (02/09/23) Performance of Urinary Filtration, Intermittent, Less than 6 Hours Per Day (12/02/24) Transfusion of Nonautologous Red Blood Cells into Peripheral Vein, Percutaneous Approach (12/02/24) Labs on day of discharge: Laboratory Results - last 24 hr 03/10/25 03/10/25 03/11/25 16:02 20:37 06:25 WBC 5.1 RBC 2.90 L Hgb 9.2 L Hct 26.5 L MCV 91.4 MCH 31.7 MCHC 34.7 RDW 14.7 Plt Count 183 MPV 10.5 Absolute Nucleated RBC 0.000 Nucleated RBC % (auto) 0.0 POC Glucose 123 H 163 H 03/11/25 03/11/25 03/11/25 07:05 07:56 11:04 WBC RBC Hgb Hct MCV MCH MCHC RDW Plt Count MPV Absolute Nucleated RBC Nucleated RBC % (auto) POC Glucose 79 115 161 H Discharge Plan Discharge Anticipated Discharge Date/Time: 03/11/25 15:11 Patient Disposition: Home Health Service Discharge Diagnosis: Acute blood loss anemia GI bleed NSTEMI Hyperkalemia Blurred vision Referrals: Patricia Ingram MD [Primary Care Provider, Internal Medicine] - 1 Week Discharge Medications: New insulin glargine [Lantus U-100 Insulin] 100 unit/mL Solution 5 unit subcut BEDTIME Qty: 10 0RF Continued amlodipine 10 mg tablet 10 mg PO DAILY 90 Days Qty: 90 3RF atorvastatin 80 mg tablet 80 mg PO BEDTIME Qty: 90 3RF hydralazine 25 mg tablet 25 mg PO TID Qty: 90 5RF ascorbic acid (vitamin C) [Vitamin C] 500 mg tablet 1 tab PO DAILY montelukast 10 mg tablet 10 mg PO BEDTIME budesonide-formoterol [Symbicort] 80-4.5 mcg/actuation HFA aerosol inhaler 2 puff inhalation BID acetaminophen 500 mg tablet 1,000 mg PO Q8H PRN (Reason: Pain) insulin aspart U-100 [Novolog FlexPen U-100 Insulin] 100 unit/mL (3 mL) insulin pen See Protocol subcut BIDAC@0730,1630 Protocol: Insulin Correction Scale Less than or equal to 110 ---- Give (units): 0 111 to 150 Give (units): 3 151 to 200 Give (units): 5 201 to 250 Give (units): 7 251 to 300 Give (units): 9 301 to 350 Give (units): 11 Greater than 350 Give (units): 13 Call MD if Blood Glucose > : 399 insulin aspart U-100 [Novolog FlexPen U-100 Insulin] 100 unit/mL (3 mL) insulin pen 3 unit subcut DAILY@1200 sevelamer carbonate 800 mg tablet 800 mg PO TIDWM@0800,1200,1700 insulin glargine [Lantus U-100 Insulin] 100 unit/mL Solution 7 unit SUBCUT BEDTIME docusate sodium 100 mg Capsule 100 mg PO BID PRN (Reason: Constipation) ezetimibe 10 mg tablet 10 mg PO DAILY melatonin 5 mg Tablet 5 mg PO BEDTIME PRN (Reason: Insomnia) ticagrelor [Brilinta] 90 mg Tablet 90 mg PO BID pantoprazole 40 mg tablet,delayed release (DR/EC) 40 mg PO DAILY@0630 aspirin 81 mg tablet,delayed release (DR/EC) 81 mg PO BEDTIME Repatha SureClick 140 mg/mL Pen Injector 140 mg SUBCUT Q2W sertraline 100 mg tablet 150 mg PO DAILY furosemide 40 mg tablet 80 mg PO BID Qty: 240 2RF isosorbide mononitrate 30 mg tablet extended release 24 hr 30 mg PO DAILY cholecalciferol (vitamin D3) 25 mcg (1,000 unit) tablet 25 mcg PO DAILY Discontinued insulin glargine [Lantus Solostar U-100 Insulin] 100 unit/mL (3 mL) insulin pen 8 unit subcut DAILY carvedilol 3.125 mg Tablet 3.125 mg PO BID Rx Instructions: must administer with a meal/food Discharge Orders: Discharge Order (Routine); Ordered 03/11/25 Ordered By: Zeynep Saba Diet: Advance to usual diet Activity on Discharge: As tolerated Stand Alone Forms: Patient Portal Discharge page Print Language: [place] Verdean Activity Restrictions/Additional Instructions: 1. Immediate Care (RICE): * Rest:?Avoid putting weight on the injured ankle.? * Ice:?Apply ice packs for 20 minutes on, 20 minutes off, to reduce swelling and pain.? * Compression:?Use an elastic bandage to wrap the ankle, providing support and minimizing swelling.? * Elevation:?Keep the ankle elevated above the heart to further reduce swelling.? Care Plan Goals: Decrease Lantus to 5 units Health Concerns: Acute blood loss anemia GI bleed NSTEMI Hyperkalemia Blurred vision Plan of Treatment: Follow up with primary care provider as needed Take all medications as prescribed Assessment: See discharge summary
[2025-03-11 16:42] LABS: Glucose, Whole Blood 123 mg/dL (60-115)
--- NOTE | 2025-03-11 17:01 | W.MHC.F2F ---
Service Date Service Date: 03/11/25 Encounter Date of encounter: 03/11/25 Reasons for Services Signs and symptoms assessed: NSTEMI Hypertension Reason for [facility] [facility]: CV/CP assess and/or care Reason for physical therapy: home safety and mobility Homebound: Leaving the home is medically contraindicated at this time without the asist of a device and/or another person due th the listed conditions above and below. Reason homebound: weakness related to hospital stay Certification: Based on the above findings, I certify that this patient is confined to the home and needs intermittent [facility] care, physical therapy and/or speech therapy, or continues to need occupational therapy. The patient is under my care, and I have initiated the establishment of the plan of care. The patient will be followed by a physician who will periodically review the plan of care. Time Spent With Patient Time: Total time managing care of this patient today ____ minutes.
== END 2025-03-11 20:00 | disposition home health service (06) | DRG 280 ==
LOC: HO.ED 07:08 → HO.EDOVER 11:23 → HO.IMC 16:40
PROVIDERS: Family Medicine; Nurse Practitioner Family; Student in an Organized Health Care Education/Training Program; Admitting Provider Internal Medicine; Emergency Provider Emergency Medicine Emergency Medical Services; PCP Family Medicine; Visit Provider Nurse Practitioner Acute Care
DX: I13.2 Hypertensive heart and chronic kidney disease with heart failure and with stage 5 chronic kidney disease, or end stage renal disease (principal); I50.33 Acute on chronic diastolic (congestive) heart failure; I21.4 Non-ST elevation (NSTEMI) myocardial infarction; N18.6 End stage renal disease; J96.01 Acute respiratory failure with hypoxia; D62 Acute posthemorrhagic anemia; K62.5 Hemorrhage of anus and rectum; G47.33 Obstructive sleep apnea (adult) (pediatric); E78.5 Hyperlipidemia, unspecified; K21.9 Gastro-esophageal reflux disease without esophagitis; J45.20 Mild intermittent asthma, uncomplicated; I95.9 Hypotension, unspecified; F32.A Depression, unspecified; E87.5 Hyperkalemia; E11.649 Type 2 diabetes mellitus with hypoglycemia without coma; H53.8 Other visual disturbances; I35.0 Nonrheumatic aortic (valve) stenosis; D63.1 Anemia in chronic kidney disease; I25.10 Atherosclerotic heart disease of native coronary artery without angina pectoris; E11.22 Type 2 diabetes mellitus with diabetic chronic kidney disease; Z95.5 Presence of coronary angioplasty implant and graft; Z99.2 Dependence on renal dialysis; Z79.4 Long term (current) use of insulin; Z79.82 Long term (current) use of aspirin; Z79.899 Other long term (current) drug therapy
CPT/HCPCS: 36415; 70450; 70496; 70498; 71045; 74174; 74178; 80048; 80053; 82947; 83735; 84100; 84484; 85014; 85018; 85025; 85027; 85610; 85730; 86850; 86900; 86901; 86923; 90999; 93005; 93306; 94640; 97162; 99285; J1171; J1644; J2405; J2470; J2597; P9016; Q9957; Q9967

== ENCOUNTER → 2025-03-03 08:02 | Outpatient (BNV) | payer OTHER, SELFPAY | PROVIDERS: Admitting Provider Internal Medicine; Emergency Provider Emergency Medicine Emergency Medical Services; Visit Provider Internal Medicine | DX: I45.2 Bifascicular block (principal) | CPT/HCPCS: 93010 ==

== ENCOUNTER → 2025-03-03 08:04 | Outpatient (BNV) | payer OTHER, SELFPAY | PROVIDERS: Emergency Provider Emergency Medicine Emergency Medical Services; Visit Provider Radiology Diagnostic Radiology | DX: R91.8 Other nonspecific abnormal finding of lung field (principal) | CPT/HCPCS: 71045 ==

== ENCOUNTER 2025-03-03 11:22 | Outpatient (BNV) | payer OTHER, SELFPAY | END 2025-03-04 12:00 | PROVIDERS: Admitting Provider Internal Medicine; Emergency Provider Emergency Medicine Emergency Medical Services; PCP Family Medicine; Visit Provider Internal Medicine | DX: I35.0 Nonrheumatic aortic (valve) stenosis (principal); I36.1 Nonrheumatic tricuspid (valve) insufficiency; I51.7 Cardiomegaly; I25.2 Old myocardial infarction; R94.31 Abnormal electrocardiogram [ECG] [EKG] | CPT/HCPCS: 93010; 93306 ==

== ENCOUNTER 2025-03-03 11:22 | Outpatient (BNV) | payer OTHER, SELFPAY | END 2025-03-05 11:23 | PROVIDERS: Admitting Provider Internal Medicine; Emergency Provider Emergency Medicine Emergency Medical Services; PCP Family Medicine; Visit Provider Radiology Diagnostic Radiology | DX: N85.2 Hypertrophy of uterus (principal) | CPT/HCPCS: 74174 ==

== ENCOUNTER 2025-03-03 11:22 | Outpatient (BNV) | payer OTHER, SELFPAY | END 2025-03-06 15:36 | PROVIDERS: Admitting Provider Internal Medicine; Emergency Provider Emergency Medicine Emergency Medical Services; PCP Family Medicine; Visit Provider Internal Medicine | DX: R94.31 Abnormal electrocardiogram [ECG] [EKG] (principal); R00.1 Bradycardia, unspecified | CPT/HCPCS: 93010 ==

== ENCOUNTER 2025-03-03 11:22 | Outpatient (BNV) | payer OTHER, SELFPAY | END 2025-03-06 13:08 | PROVIDERS: Admitting Provider Internal Medicine; Emergency Provider Emergency Medicine Emergency Medical Services; PCP Family Medicine; Visit Provider Radiology Diagnostic Radiology | DX: K92.2 Gastrointestinal hemorrhage, unspecified (principal) | CPT/HCPCS: 74174; 74178 ==

== ENCOUNTER 2025-03-03 11:22 | Outpatient (BNV) | payer OTHER, SELFPAY | END 2025-03-10 10:56 | PROVIDERS: Admitting Provider Internal Medicine; Emergency Provider Emergency Medicine Emergency Medical Services; PCP Family Medicine; Visit Provider Radiology Diagnostic Radiology | DX: H53.8 Other visual disturbances (principal) | CPT/HCPCS: 70450; 70496; 70498 ==

== ENCOUNTER → 2025-03-03 11:22 | Outpatient (BNV) | payer OTHER, SELFPAY | PROVIDERS: Admitting Provider Internal Medicine; Emergency Provider Emergency Medicine Emergency Medical Services; Visit Provider Internal Medicine | DX: I16.1 Hypertensive emergency (principal); I21.4 Non-ST elevation (NSTEMI) myocardial infarction; I35.0 Nonrheumatic aortic (valve) stenosis; N18.6 End stage renal disease; Z99.2 Dependence on renal dialysis | CPT/HCPCS: 99223; 99233 ==

== ENCOUNTER → 2025-03-03 11:22 | Outpatient (BNV) | payer OTHER, SELFPAY | PROVIDERS: Admitting Provider Internal Medicine; Emergency Provider Emergency Medicine Emergency Medical Services; PCP Family Medicine; Visit Provider Psychiatry & Neurology Neurology | DX: H53.8 Other visual disturbances (principal) | CPT/HCPCS: 99222 ==

== ENCOUNTER → 2025-03-03 11:22 | Outpatient (BNV) | payer OTHER, SELFPAY | PROVIDERS: Admitting Provider Internal Medicine; Emergency Provider Emergency Medicine Emergency Medical Services; Visit Provider Internal Medicine | DX: I21.4 Non-ST elevation (NSTEMI) myocardial infarction (principal) | CPT/HCPCS: 99223; 99232; G0180 ==

== ENCOUNTER 2025-03-28 14:52 | Outpatient (AMB) | payer OTHER, SELFPAY ==
--- OUTSIDE RECORDS SUMMARY | 2024-08-28 10:20 | XMS_ITS ---
Author Organization [facility] Address [address] [place] [address] Care Team Providers Care Corrugated Box Machine Operator Name Role Phone Juan Jose DELGADILLO, Patricia Primary Care Provider Brandt Collazo Jr REASON FOR VISIT GI bleed Encounters Encounter Location Date Provider Diagnosis [facility] Inpatient [address] [place], [place] [id number] 08/28/2024 Brandt Villegas Jr Plan Of Treatment No Information Progress Notes * GALILEOLUISA LYRICLEEDOB:1955 (70 yo F)Acc No.[id number]:08/28/2024 EGD/MAC Patient: CARL AUGUSTE Provider: Liliane Villegas MD :1955 A ge:69 Y S ex:Female Date:08/28/2024 Address:[address] [place], [place] [id number] Pcp:Patricia Ingram MD Subjective: * Chief Complaints: [...] MD Date: 0 08/28/2024 Generated for Dia davis/Glynn/eTgilsmitting on: 0 03/28/2025 02:54 PM EDT
--- OUTSIDE RECORDS SUMMARY | 2024-12-04 09:50 | XMS_ITS ---
Author Organization [facility] Address [address] [place] [address] Care Team Providers Care Agriscience Instructor Name Role Phone Juan Jose DELGADILLO, Patricia Primary Care Provider Brandt Collazo Jr Unavailable [phone] REASON FOR VISIT anemia, heme positive stools ( in pt) Encounters Encounter Location Date Provider [place] [facility] [place] [address] [place], [place] [phone] 12/04/2024 Brandt Villegas Jr Plan Of Treatment No Information Progress Notes * CARL HASSANDOB:1955 (70 yo F)Acc No.[id number]:12/04/2024 COLON WITH MAC Patient: CARL AUGUSTE Provider: Liliane Villegas MD :1955 A ge:69 Y S ex:Female Date:12/04/2024 Address:[address] [place] [address] [place], [place] [phone] Pcp:Patricia Ingram MD Subjective: * Chief Complaints: * 1 . Anemia, heme positive stools ( in pt). * Medical History: Objective: * Vitals: Assessment: Plan: * Treatment: * * The named appointment provid er may or may not be the originator of this progress note, and it is not deemed complete until electronically signed by the appointment provider. Sign off status: Pending * Provider: Liliane Villegas MD Date: 0 12/04/2024 Generated for Dia davis/Glynn/Janiceitting on: 0 03/28/2025 02:54 PM EDT
--- OUTSIDE RECORDS SUMMARY | 2025-03-28 14:54 | XMS_ITS | Encounter Summary ---
Author Organization [facility] Address [address] [place] [phone] Phone Care Team Providers Care Gps Navigation Installer Name Role Phone Patricia Ingram MD Primary Care Provider [phone] Encounter Details Date Type Department Care Team (Late st Contact Info) Description 03/25/2025 Treatment [facility] [address] [phone] Richard Alatorre MD [address] [phone] End stage renal disease; Dependence [...] Dialysis Note - Richard Alatorre MD - 03/25/2025 12:00 AM EDT BASIC NOTE Patient: Kavitha Padilla : 1955 Note Author: RICHARD ALATORRE MD Service Date: 03/25/2025 This patient was personally seen for a basic visit as part of routine monthly dialysis care for end stage renal disease. Attending Tankerman: RICHARD ALATORRE MD Dialysis Location: [facility] Schedule: Shift: 2 HOME MEDICATIONS Current [...] 1 (one) time each day Start Date: Current [facility] Epic Allergies Allergen: No Known Allergies ADEQUACY ASSESSMENT Kt/V, Natural Log 1.81 (03/13/25) 1.72 (02/06/25) 1.40 (01/02/25) UREA REDUCTION RATIO (%) 80 (03/13/25) 78 (02/06/25) 71 (01/02/25) BUN 41 (03/13/25) 59 (02/06/25) 42 (01/02/25) BUN Post Dialysis 8 (03/13/25) 13 (02/06/25) 12 (01/02/25) Creatinine 7.32 (02/06/25) 6.86 (01/02/25) 6.57 (12/05/24) Bicarbonate (CO2) 24 (03/13/25) 27 (02/06/25) 27 (01/02/25) Sodium 137 (03/13/25) 135 (02/06/25) 139 (01/02/25) ANEMIA ASSESSMENT Hgb 10.0 (03/13/25) 8.6 (02/27/25) 9.9 (02/11/25) Iron Saturation (TSat) 63 (02/06/25) 18 (01/02/25) 17 (12/05/24) Ferritin 1,649 (02/06/25) 1,061 (01/02/25) 1,234 (12/05/24) Iron 125 (02/06/25) 34 (01/02/25) 28 (12/05/24) TIBC 197 (02/06/25) 186 (01/02/25) 168 (12/05/24) MCV 94.8 (02/06/25) 93.0 (01/02/25) 97.5 (12/05/24) Platelets 165 (02/06/25) 237 (01/02/25) 226 (12/05/24) BMM ASSESSMENT Calcium, Adjusted Total 9.9 03/18/25 10.0 02/06/25 9.7 01/02/25 Calcium 9.9 03/18/25 10.0 02/06/25 9.7 01/02/25 Phosphorus, Serum 3.5 03/18/25 6.1 02/06/25 6.1 01/23/25 Ca*PO4 61.0 02/06/25 68.9 01/02/25 45.1 12/05/24 PTH, Intact 1,453 03/18/25 1,689 02/06/25 1,668 01/02/25 Magnesium 2.5 02/06/25 2.6 01/02/25 2.3 12/05/24 Alkaline Phosphatase 118 02/06/25 113 01/02/25 121 12/05/24 Aluminum 3 08/08/24 NUTRITION ASSESSMENT Albumin 4.2 03/18/25 4.3 02/06/25 4.0 01/02/25 Potassium 4.3 03/13/25 5.7 02/06/25 4.5 01/02/25 Hemoglobin A1C 6.8 02/06/25 6.0 10/31/24 5.8 08/08/24 ADDITIONAL LABS White Blood Cells 5.4 (02/06/25) 4.6 (01/02/25) 5.2 (12/05/24) Cholesterol 144 (02/06/25) 146 (10/31/24) 110 (08/08/24) HDL 58 (02/06/25) 49 (10/31/24) 51 (08/08/24) LDL-Calc 57 (02/06/25) 73 (10/31/24) 39 (08/08/24) Triglycerides 143 (02/06/25) 120 (10/31/24) 100 (08/08/24) Hep B Surface Antibody 24 (02/06/25) 31 (08/08/24) Uric Acid 4.4 (08/08/24) Signed by: RICHARD ALATORRE MD on 03/25/2025 at 01:10:00 PM Transcribed by: RICHARD ALATORRE MD on 03/25/2025 at 01:10:00 PM documented in this encounter Plan of Treatment Not on file documented as of this encounter Visit Diagnoses Diagnosis End stage renal disease Dependence on renal dialysis documented in this encounter Care Teams Gps Navigation Installer Relationship Specialty Start Date End Date Patricia Ingram MD [address] [place] [id number] PCP - General 08/10/20 documented as of this encounter
--- OUTSIDE RECORDS SUMMARY | 2025-03-28 14:54 | XMS_ITS | Encounter Summary ---
Author Organization [facility] Address [address] [facility] [address] [place] [address] Phone Care Team Providers Care Abrasive Mixer Name Role Phone Patricia Ingram MD Primary Care Provider [phone] Reason for Visit * Reason Comments Med Refill Encounter Details Date Type Department Care Team ([facility] st Contact Info) Description 04/29/2021 Refill [facility] [address] [place] [phone] Yared Powell MD [address] [facility] [address] [place] [phone] Social History Tobacco Use Types Packs/Day Years Used Date Smoking Tobacco: Former Cigarettes Q uit: 07/31/1979 Comments:Smoking History Inf o:Unknown Comments Unknown Sex and Gender Information Value Date Recorded Sex Assigned at Not on file Legal Sex Female 5:06 PM EST Gender Identity Not on file Sexual Orientation Not on file documented as of this encounter Miscellaneous Notes * Telephone Encounter - Yaerd Powell MD - 04/30/2021 10:28 AM EDT [...] on filedocumented in this encounter Care Teams Abrasive Mixer Relationship Specialty Start Date End Date Patricia Ingram MD [address] [place] [address] PCP - General 08/10/20 documented as of this encounter
--- OUTSIDE RECORDS SUMMARY | 2025-03-28 14:54 | XMS_ITS | Encounter Summary ---
Author Organization [facility] Address [address] [facility] [address] [place] [address] Phone Care Team Providers Care Outside Plant Cable Engineer Name Role Phone Patricia Ingram MD Primary Care Provider [phone] Reason for Visit * Reason Comments Med Refill Encounter Details Date Type Department Care Team (Late st Contact Info) Description 11/08/2022 Refill [facility] [address] [facility] [place] [phone] Feliciano Baldwin MD Social History Tobacco [...] on filedocumented in this encounter Care Teams Outside Plant Cable Engineer Relationship Specialty Start Date End Date Patricia Ingram MD [address] [place] [address] PCP - General 08/10/20 documented as of this encounter
--- OUTSIDE RECORDS SUMMARY | 2025-03-28 14:54 | XMS_ITS | Patient Health Record ---
Author Organization [facility] Address [address] [place] [address] Care Team Providers Care Acetone Recovery Worker Name Role Phone Juan Jose DELGADILLO, Patricia Primary Care Provider Bradford Villegas Jr, Brandt Unavailable Results Component Value Reference Range Notes Type and Screen Reviewed date:08/29/2024 10:35:21 AM Interpretation: Performing Lab:[facility], [address] [place] [phone] Notes/Report: Results at Issue Units as of 08/26/24 0456 ... Test View Group: Most Recent HGB HCT Results LABORATORY Date Time Test Result Flag Normal Range 08/26/24 1100 HGB PENDING RECEIPT 12.0-16.0 g/dl 08/26/24 0204 HGB 6.0 #*L 12.0-16.0 g/dl Results of HGB called to and read back by [employer] on 08/26/24 at 0222 by TERRENCE. 08/26/24 [...] Cells Reviewed date:08/29/2024 10:35:28 AM Interpretation: Performing Lab:[facility], [address] [place] [phone] Notes/Report: Red Blood Cells [id number] OP RC Red Blood Cells NOT AVAILABLE Red Blood Cells [id number] OP RC Red Blood Cells TRANSFUSED 08/26/24 0454 Red Blood Cells [id number] BP RC Red Blood Cells TRANSFUSED 08/26/24 1500 Complete Blood Count no Diff Reviewed date:08/28/2024 07:49:19 AM Interpretation: Performing Lab:[facility], [address] [place] [phone] Notes/Report: White Blood Count 5.1 4.8-10.8 X10*3/uL [...] Pathology Reviewed date:09/04/2024 08:03:17 AM Interpretation: Performing Lab:[facility], [address] [place] [phone] Notes/Report: Reason For Referral No Information Medications Medication [...] Active Encounters Encounter Location Date Provider Diagnosis [facility] Inpatient [address] [place] [id number] 08/28/2024 Brandt Villegas Jr [facility] [address] [place] [phone] 09/04/2024 Brandt Villegas Jr [facility] [address] [place] [phone] 12/04/2024 Brandt Villegas Jr [facility] [address] [phone] 12/04/2024 Brandt Villegas Jr Plan Of Treatment No Information Insurance Providers Payer Name Payer Address Payer Phone Subscriber Number Group Number Insured Name Patient Relationship to Insured Coverage Start Date Coverage End Date [facility] [address] Attn Claims [place] [id number] CARL HASSAN Self - patient is the insured
--- OUTSIDE RECORDS SUMMARY | 2025-03-28 14:54 | XMS_ITS | Encounter Summary ---
Author Organization [facility] Address [address] [facility] [address] [place] [address] Phone Care Team Providers Care Tableau Analyst Name Role Phone Patricia Ingram MD Primary Care Provider [phone] Reason for Visit * Reason Comments Med Refill Encounter Details Date Type Department Care Team (Late st Contact Info) Description 09/07/2022 Refill [facility] [address] [place] [phone] Kentrell Leos MD Social History Tobacco [...] on filedocumented in this encounter Care Teams Tableau Analyst Relationship Specialty Start Date End Date Patricia Ingram MD [address] [place] [address] PCP - General 08/10/20 documented as of this encounter
--- OUTSIDE RECORDS SUMMARY | 2025-03-28 14:54 | XMS_ITS | Encounter Summary ---
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
--- OUTSIDE RECORDS SUMMARY | 2025-03-28 14:54 | XMS_ITS | Encounter Summary ---
Author Organization [facility] Address [address] [facility] [address] [place] [address] Phone Care Team Providers Care Beef Cattle Farm Worker Name Role Phone Patricia Ingram MD Primary Care Provider [phone] Reason for Visit * Reason Comments Med Refill Encounter Details Date Type Department Care Team ([facility] st Contact Info) Description 09/07/2021 Refill [facility] [address] [place] [phone] Yared Powell MD [address] [facility] [address] [place] [phone] Social History Tobacco Use Types Packs/Day Years [...] on filedocumented in this encounter Care Teams Beef Cattle Farm Worker Relationship Specialty Start Date End Date Patricia Ingram MD [address] [place] [id number] PCP - General 08/10/20 documented as of this encounter
--- OUTSIDE RECORDS SUMMARY | 2025-03-28 14:54 | XMS_ITS | Encounter Summary ---
Author Organization [facility] Address [address] [phone] Phone Care Team Providers Care Structural Designer Name Role Phone Patricia Ingram MD Primary Care Provider [phone] Encounter Details Date Type Department Care Team (Late st Contact Info) Description 03/13/2025 TCM in Dialysis Clinic [facility] [address] [phone] Richard Alatorre MD [address] [phone] Social History Tobacco Use Types [...] on file documented as of this encounter Progress Notes * Richard Alatorre MD - 03/13/2025 12:00 AM EDT Patient: Kavitha Padilla : 1955 Note Type: Dialysis TCM Service Date: 03/13/2025 The patient was seen for a [id number] visit as part of Transitional Care Management services. Attending Plumbing Drafter: RICHADR ALATORRE MD Dialysis Location: [facility] Schedule: Shift: 2 INTERACTIVE CONTACT Contact with the patient or caregiver was made or attempted within 2 business days of discharge - details in the medical record. HOSPITALIZATION SUMMARY Patient transitioned from: Hospital Patient transitioned to: Home Admit Date: 03/03/2025 Discharge Date: 03/13/2025 Discharged info reviewed: Followed-up on or reviewed need for pending tests/treatments as noted HOME MEDICATIONS Discharge med list reviewed and reconciled - no changes. Active treatment medication orders reviewed - no changes. PHYSICAL EXAM Exam not performed. DIALYSIS PRESCRIPTION Dry weight during admission reviewed - EDW decreased. CARE COORDINATION Post-discharge follow-up appointments reviewed with the patient. VISIT DIAGNOSES CPT Code 98463 - High complexity, seen within 7 days of discharge. N18.6 End stage renal disease Signed by: RICHARD ALATORRE MD on 03/13/2025 at 12:20:39 PM Transcribed by: RICHARD ALATORRE MD on 03/13/2025 at 12:20:39 PM documented in this encounter Plan of Treatment Not on file documented as of this encounter Visit Diagnoses Not on filedocumented in this encounter Care Teams Structural Designer Relationship Specialty Start Date End Date Patricia Ingram MD [address] [place] [id number] PCP - General 08/10/20 documented as of this encounter
--- OUTSIDE RECORDS SUMMARY | 2025-03-28 14:55 | XMS_ITS | Clinical Summary ---
Author Organization [facility] Address [address] [place] [address] Phone Care Team Providers Care Gallery Intern Name Role Phone Patricia Ingram MD Primary Care Provider [phone] Allergies No known active allergies Medications amLODIPine [...] THE EVENING 180 tablet 2 3 Active Active Problems Problem Noted Date Diagnosed [...] Encounters Date Type Department Care Team Description 03/25/2025 Treatment [facility] [address] [address] Driss Alatorre MD End stage renal disease; Dependence on renal dialysis 03/18/2025 Treatment [facility] [address] [address] Driss Alatorre MD End stage renal disease; Dependence on renal dialysis 03/13/2025 Orders Only [facility] [address] [address] Driss Alatorre MD 03/13/2025 [facility] in Dialysis Clinic [facility] [address] [address] Driss Alatorre MD 03/13/2025 Treatment [facility] [address] [address] Driss Alatorre MD End stage renal disease; Dependence on renal dialysis 02/25/2025 Treatment [facility] [address] [address] Driss Alatorre MD End stage renal disease; Dependence on renal dialysis 02/20/2025 Treatment [facility] [address] [address] Driss Alatorre MD End stage renal disease; Dependence on renal dialysis 02/18/2025 Treatment [facility] [address] [address] Driss Alatorre MD End stage renal disease; Dependence on renal dialysis 02/11/2025 Treatment [facility] [address] [address] Driss Alatorre MD End stage renal disease; Dependence on renal dialysis 02/04/2025 Treatment [facility] [address] [address] Driss Alatorre MD End stage renal disease; Dependence on renal dialysis 01/14/2025 [facility] [address] [address] Driss Alatorre MD End stage renal disease; Dependence on renal dialysis 01/07/2025 [facility] [address] [address] Driss Alatorre MD End stage renal disease; Dependence on renal dialysis 01/02/2025 Treatment [facility] [address] [address] Driss Alatorre MD End stage renal disease; Dependence on renal dialysis 12/31/2024 [facility] [address] [address] Driss Alatorre MD End stage renal disease; Dependence on renal dialysis 12/26/2024 Treatment [facility] [address] [address] Driss Alatorre MD End stage renal disease; Dependence on renal dialysis from Last 3 Months Immunizations Immunization Administration [...] Exam 08/30/2020 Diabetes: Visual Foot Exam 08/30/2020 Influenza Vaccine (#1) 2025 4, 05/27/2021, 04/15/2020, Additional history exists Diabetes: Hemoglobin A1C 05/09/20252 025, 10/31/2024, 08/21/2024, Additional history exists Pneumococcal Vaccine: 50+ Years Completed 12/02/2024, 10/23/2018, 04/25/2017, Additional history exists Pneumococcal Vaccine: Peds ( 0 to 5 Years) and At-Risk Patients (6 to 49 Years) Discontinued 12/02/2024, 10/23/2018, 04/25/2017, Additional history exists Procedures Procedure Name Priority Date/Time Associated Diagnosis Comments HEMOGLOBIN AND HEMATOCRIT, BLOOD Routine 03/22/2025 3:00 AM EDT COLLECTION DATE (HC) Routine 03/22/2025 3:00 AM EDT PTH, INTACT Routine 03/18/2025 3:00 AM EDT LIH (HC) Routine 03/18/2025 3:00 AM EDT PHOSPHATE ( PHOSPHORUS) Routine 03/18/2025 3:00 AM EDT CALCIUM, ADJUSTED W ALBUMIN Routine 03/18/2025 3:00 AM EDT ELECTROLYTE PANEL Routine 03/13/2025 3:0 0 AM EDT LIH (HC) Routine 03/13/2025 3:00 AM EDT HEMOGLOBIN Routine 03/13/2025 3:00 AM EDT KT/V NATURAL LOG, URR (HC) Routine 03/13/2025 3:00 AM EDT HEMOGLOBIN Routine 02/27/2025 3:00 AM EDT HEMOGLOBIN AND HEMATOCRIT, BLOOD Routine 02/11/2025 3:00 AM EDT HEPATITIS C ABS W/REFLEX RNA DETECTR Routine 02/06/2025 3:00 AM EDT CONFIRMATION TEST HCV Routine 02/06/2025 3:00 AM EDT TRANSFERRIN SATURATION Routine 3:00 AM EDT MAGNESIUM Routine 02/06/2025 3:00 AM EDT LIPID PANEL Routine 02/06/2025 3:00 AM EDT PROTEIN, TOTAL, SERUM Routine 02/06/2025 3:00 AM EDT ELECTROLYTE PANEL Routine 02/06/2025 3:0 0 AM EDT LIH (HC) Routine 02/06/2025 3:00 AM EDT LACTATE DEHYDROGENASE Routine 02/06/2025 3:00 AM EDT CREATININE, SERUM Routine 02/06/2025 3:0 0 AM EDT GLUCOSE, RANDOM Routine 02/06/2025 3:00 AM EDT AST Routine 02/06/2025 3:00 AM EDT BILIRUBIN, TOTAL Routine 02/06/2025 3:00 AM EDT BUN/CREATININE RATIO Routine 02/06/2025 3:00 AM EDT ALT Routine 02/06/2025 3:00 AM EDT ALKALINE PHOSPHATASE Routine 02/06/2025 3:00 AM EDT CALCIUM PHOSPHORUS PRODUCT, ADJUSTED (HC) Routine 02/06/2025 3:00 AM EDT FERRITIN Routine 02/06/2025 3:00 AM EDT HEPATITIS B SURFACE ANTIBODY QUANT Routine 02/06/2025 3:00 AM EDT PTH, INTACT Routine 02/06/2025 3:00 AM EDT HEMOGLOBIN A1C Routine 02/06/2025 3:00 AM EDT CBC AND DIFFERENTIAL Routine 02/06/2025 3:00 AM EDT KT/V NATURAL LOG, URR (HC) Routine 02/06/2025 3:00 AM EDT LIH (HC) Routine 01/23/2025 3:00 AM EDT PHOSPHATE ( PHOSPHORUS) Routine 01/23/2025 3:00 AM EDT HEMOGLOBIN AND HEMATOCRIT, BLOOD Routine 01/16/2025 3:00 AM EDT TRANSFERRIN SATURATION Routine 3:00 AM EDT ELECTROLYTE PANEL Routine 01/02/2025 3:0 0 AM EDT PROTEIN, TOTAL, SERUM Routine 01/02/2025 3:00 AM EDT LIH (HC) Routine 01/02/2025 3:00 AM EDT MAGNESIUM Routine 01/02/2025 3:00 AM EDT LACTATE DEHYDROGENASE Routine 01/02/2025 3:00 AM EDT GLUCOSE, RANDOM Routine 01/02/2025 3:00 AM EDT CREATININE, SERUM Routine 01/02/2025 3:0 0 AM EDT BUN/CREATININE RATIO Routine 01/02/2025 3:00 AM EDT BILIRUBIN, TOTAL Routine 01/02/2025 3:00 AM EDT ALT Routine 01/02/2025 3:00 AM EDT AST Routine 01/02/2025 3:00 AM EDT ALKALINE PHOSPHATASE Routine 01/02/2025 3:00 AM EDT CALCIUM PHOSPHORUS PRODUCT, ADJUSTED (HC) Routine 01/02/2025 3:00 AM EDT FERRITIN Routine 01/02/2025 3:00 AM EDT PTH, INTACT Routine 01/02/2025 3:00 AM EDT KT/V NATURAL LOG, URR (HC) Routine 01/02/2025 3:00 AM EDT CBC AND DIFFERENTIAL Routine 01/02/2025 3:00 AM EDT HEMOGLOBIN Routine 12/26/2024 3:00 AM EDT from Last 3 Months Results * Collection Date (03/22/2025 3:00 AM EDT) [facility] Collection Date See Comment [facility] Comment: Patient sample received may exceed specimen stability, based on the collection date electronically provided. When reviewing patient results, verify collection information and consider specimen stability before acting on any critical or panic results. 03/22/2025 3:00 AM EDT us Driss Alatorre MD LAB [id number] ICITED RESULTS Final Result Performing Organization Address City/[facility] Co de Phone Number [facility] [address] [place] [address] * (ABNORMAL) Hemoglobin and hematocrit (03/22/2025 3:00 AM EDT) Only the most recent of3 resultswithin the time period is included. [facility] Hgb 9.3(L) 11.2 - 15.7 g/dL [facility] Hematocrit 27.6(L) 34.1 - 44.9 % [facility] Hemoglobin x 3 27.9(L) 33.6 - 47.1 g/dL [facility] 03/22/2025 3:00 AM EDT 03/25/2025 12:58 PM EDT us Driss Alatorre MD LAB BLOOD ORDERABLES Final Resul t Performing Organization Address City/[facility] Co de Phone Number [facility] [address] [place] [address] * LIH (03/18/2025 3:00 AM EDT) Only the most recent of5 resultswithin the time period is included. Lipemia Normal Normal [facility] Icterus Normal Normal [facility] Hemolysis Normal Normal [facility] 03/18/2025 3:00 AM EDT 03/19/2025 1:44 PM EDT us Driss Alatorre MD LAB [id number] ICITED RESULTS Final Result Performing Organization Address [facility] Co de Phone Number [facility] [address] [place] [address] * Calcium, Adjusted w Albumin (03/18/2025 3:00 AM EDT) Calcium 9.9 8.6 - 10.3 mg/dL [facility] Albumin 4.2 3.6 - 5.4 g/dL [facility] Calcium, Adjusted Total 9.9 8.6 - 10.3 mg/dL [facility] 03/18/2025 3:00 AM EDT 03/19/2025 1:44 PM EDT us Driss Alatorre MD LAB BLOOD ORDERABLES Final Resul t Performing Organization Address [facility] de Phone Number [facility] [address] [place] [address] * Phosphorus (03/18/2025 3:00 AM EDT) Only the most recent of2 resultswithin the time period is included. Phosphorus, Serum 3.5 2.5 - 5.0 mg/dL [facility] 03/18/2025 3:00 AM EDT 03/19/2025 1:44 PM EDT us Driss Alatorre MD LAB BLOOD ORDERABLES Final Resul t Performing Organization Address [facility] Co de Phone Number [facility] [address] [place] [address] * (ABNORMAL) PTH, Intact (03/18/2025 3:00 AM EDT) Only the most recent of3 resultswithin the time period is included. PTH, Intact 1,453(H) 160 - 721 pg/mL [facility] Comment: Suggested (KDIGO) ESRD maintenance range is two to nine times the upper normal limit (80.1 pg/mL) for the laboratory. 03/18/2025 3:00 AM EDT 03/19/2025 1:44 PM EDT us Driss Alatorre MD LAB BLOOD ORDERABLES Final Resul t Performing Organization Address [facility] Co de Phone Number [facility] [address] [place] [address] * (ABNORMAL) Kt/V Natural Log, URR (03/13/2025 3:00 AM EDT) Only the most recent of3 resultswithin the time period is included. Treatment Time 182 min [facility] Pre-Weight, lb 52.9 kg [facility] Post-Weight, lb 52.2 kg [facility] Ultrafiltration Rate 4 <=13 mL/kg/hr [facility] Comment: Recommend achieving Ultrafiltration Rate (UFR) <=10 mL/kg/hr References: Kendy VELÁSQUEZ et al. Kidney Int. 2010; 79(2):250-257 BUN Post Dialysis 8 7 - 25 mg/dL [facility] BUN 41(H) 7 - 25 mg/dL [facility] UREA REDUCTION RATIO (%) 80 >=65 % [facility] Kt/V Natural Log 1.81 >=1.2 [facility] 03/13/2025 3:00 AM EDT 03/14/2025 2:25 PM EDT us Driss Alatorre MD LAB [id number] ICITED RESULTS Final Result Performing Organization Address [facility] Co de Phone Number [facility] [address] [place] [address] * (ABNORMAL) Hemoglobin (03/13/2025 3:00 AM EDT) Only the most recent of3 resultswithin the time period is included. Hgb 10.0(L) 11.2 - 15.7 g/dL [facility] Hemoglobin x 3 30.0(L) 33.6 - 47.1 g/dL [facility] 03/13/2025 3:00 AM EDT 03/14/2025 2:33 PM EDT us Driss Alatorre MD LAB BLOOD ORDERABLES Final Resul t Performing Organization Address [facility] de Phone Number [facility] [address] [place] [address] * (ABNORMAL) Electrolyte panel (03/13/2025 3:00 AM EDT) Only the most recent of3 resultswithin the time period is included. Sodium 137 136 - 145 mEq/L [facility] Potassium 4.3 3.4 - 5.0 mEq/L [facility] Chloride 97(L) 98 - 107 mEq/L [facility] Bicarbonate (CO2) 24 21 - 31 mEq/L [facility] Anion Gap 16(H) 3 - 14 mEq/L [facility] 03/13/2025 3:00 AM EDT 03/14/2025 2:35 PM EDT us Driss Alatorre MD LAB BLOOD ORDERABLES Final Resul t Performing Organization Address [facility] de Phone Number [facility] [address] [place] [address] * Confirmation Test HCV (02/06/2025 3:00 AM EDT) Hep C Ab Confirmation Not needed [facility] 02/06/2025 3:00 AM EDT 02/07/2025 12:01 PM EDT us Driss Alatorre MD LAB BLOOD ORDERABLES Final Resul t Performing Organization Address [facility] de Phone Number [facility] [address] [place] [address] * (ABNORMAL) Calcium Phosphorus Product, Adjusted (02/06/2025 3:00 AM EDT) Only the most recent of2 resultswithin the time period is included. Albumin 4.3 3.6 - 5.4 g/dL [facility] Calcium 10.0 8.6 - 10.3 mg/dL [facility] Phosphorus, Serum 6.1(H) 2.5 - 5.0 mg/dL [facility] Ca*PO4 61.0(A) <55.0 mg2/dL2 [facility] Calcium, Adjusted Total 10.0 8.6 - 10.3 mg/dL [facility] CA*PO4 CORRCTD 61.0(A) <55.0 mg2/dL2 [facility] 02/06/2025 3:00 AM EDT 02/07/2025 12:37 PM EDT us Driss Alatorre MD LAB [id number] ICITED RESULTS Final Result Performing Organization Address [facility] Co de Phone Number [facility] [address] [place] [address] * HEPATITIS C ABS W/REFLEX RNA DETECTR (02/06/2025 3:00 AM EDT) Hep C Virus Ab Non-Reacti ve Non-Reacti ve [facility] 02/06/2025 3:00 AM EDT 02/07/2025 12:37 PM EDT us Driss Alatorre MD LAB [id number] ICITED RESULTS Final Result Performing Organization Address [facility] de Phone Number [facility] [address] [place] [address] * BUN/CREATININE RATIO (02/06/2025 3:00 AM EDT) Only the most recent of2 resultswithin the time period is included. BUN/Creatinine Ratio 8.1 <=23.0 [facility] 02/06/2025 3:00 AM EDT 02/07/2025 12:37 PM EDT us Driss Alatorre MD LAB [id number] ICITED RESULTS Final Result Performing Organization Address [facility] Co de Phone Number [facility] [address] [place] [address] * (ABNORMAL) TSAT (02/06/2025 3:00 AM EDT) Only the most recent of2 resultswithin the time period is included. [facility] Iron 125 50 - 170 ug/dL [facility] Transferrin 141(L) 250 - 380 mg/dL [facility] TIBC 197(L) 211 - 406 ug/dL [facility] Iron Saturation (TSat) 63(H) 22 - 52 % [facility] 02/06/2025 3:00 AM EDT 02/07/2025 12:37 PM EDT us Driss Alatorre MD LAB BLOOD ORDERABLES Final Resul t Performing Organization Address [facility] de Phone Number [facility] [address] [place] [address] * Hepatitis B Surface Antibody (02/06/2025 3:00 AM EDT) [facility] Hep B Surface Antibody 24 mIU/mL [facility] Comment: Interpretation: <10: No Immunity >=10: Probable Immunity 02/06/2025 3:00 AM EDT 02/07/2025 12:37 PM EDT us Driss Alatorre MD LAB BLOOD ORDERABLES Final Resul t Performing Organization Address [facility] de Phone Number [facility] [address] [place] [address] * (ABNORMAL) CBC and Differential (02/06/2025 3:00 AM EDT) Only the most recent of2 resultswithin the time period is included. [facility] DIFFERENTIAL MANUAL, 2 Not Indicated [facility] White Blood Cells 5.4 4.0 - 10.0 K/uL [facility] RBC 3.30(L) 3.93 - 5.22 M/uL [facility] Hgb 9.8(L) 11.2 - 15.7 g/dL [facility] Hemoglobin x 3 29.4(L) 33.6 - 47.1 g/dL [facility] Hematocrit 31.3(L) 34.1 - 44.9 % [facility] MCV 94.8 79.4 - 94.8 fL [facility] MCH 29.7 25.6 - 32.2 pg [facility] MCHC 31.3(L) 32.2 - 35.5 g/dL [facility] RDW 15.7(H) 11.7 - 14.4 % [facility] Platelets 165(L) 182 - 369 K/uL [facility] Neutrophils Relative 70.7 34.0 - 71.1 % [facility] Lymphocytes Relative 21.1 19.3 - 51.7 % [facility] Monocytes 6.5 4.7 - 12.5 % [facility] Eosinophils Relative 0.7 0.7 - 5.8 % [facility] Basophils Relative 0.6 0.1 - 1.2 % [facility] Immature Granulocytes 0.4 0.0 - 1.0 % [facility] 02/06/2025 3:00 AM EDT 02/07/2025 12:01 PM EDT us Driss Alatorre MD LAB BLOOD ORDERABLES Final Resul t Performing Organization Address City/[facility] Co de Phone Number [facility] [address] [place] [address] * (ABNORMAL) ALT (02/06/2025 3:00 AM EDT) Only the most recent of2 resultswithin the time period is included. ALT (SGPT) <7(L) 10 - 49 U/L [facility] 02/06/2025 3:00 AM EDT 02/07/2025 12:37 PM EDT us Driss Alatorre MD LAB BLOOD ORDERABLES Final Resul t Performing Organization Address [facility] Co de Phone Number [facility] [address] [place] [address] * AST (02/06/2025 3:00 AM EDT) Only the most recent of2 resultswithin the time period is included. AST (SGOT) 14 <34 U/L [facility] 02/06/2025 3:00 AM EDT 02/07/2025 12:37 PM EDT us Driss Alatorre MD LAB BLOOD ORDERABLES Final Resul t Performing Organization Address [facility] Co de Phone Number [facility] [address] [place] [address] * Protein, total (02/06/2025 3:00 AM EDT) Only the most recent of2 resultswithin the time period is included. Total Protein 6.9 6.4 - 8.9 g/dL [facility] 02/06/2025 3:00 AM EDT 02/07/2025 12:37 PM EDT us Driss Alatorre MD LAB BLOOD ORDERABLES Final Resul t Performing Organization Address City/[facility] Co de Phone Number [facility] [address] [place] [address] * (ABNORMAL) Alkaline phosphatase (02/06/2025 3:00 AM EDT) Only the most recent of2 resultswithin the time period is included. Alkaline Phosphatase 118(H) 46 - 116 U/L [facility] 02/06/2025 3:00 AM EDT 02/07/2025 12:37 PM EDT us Driss Alatorre MD LAB BLOOD ORDERABLES Final Resul t Performing Organization Address [facility] de Phone Number [facility] [address] [place] [id number] * Magnesium (02/06/2025 3:00 AM EDT) Only the most recent of2 resultswithin the time period is included. Magnesium 2.5 1.9 - 2.7 mg/dL [facility] 02/06/2025 3:00 AM EDT 02/07/2025 12:37 PM EDT us Driss Alatorre MD LAB BLOOD ORDERABLES Final Resul t Performing Organization Address [facility] Co de Phone Number [facility] [address] [place] [phone] * Lactate dehydrogenase (02/06/2025 3:00 AM EDT) Only the most recent of2 resultswithin the time period is included. LDH 185 120 - 246 U/L [facility] 02/06/2025 3:00 AM EDT 02/07/2025 12:37 PM EDT us Driss Alatorre MD LAB BLOOD ORDERABLES Final Resul t Performing Organization Address [facility] de Phone Number [facility] [address] [place] [address] * (ABNORMAL) Hemoglobin A1c (02/06/2025 3:00 AM EDT) Hemoglobin A1C 6.8(H) <5.7 % [facility] Comment: Methodology: Enzymatic Normal: <5.7% Prediabetes: 5.7-6.4% Diabetes: >6.4% Diabetic Glucose Control Evaluation: Therapeutic action suggested at >8.0% ADA recommends a glycemic goal of <7.0% 02/06/2025 3:00 AM EDT 02/07/2025 12:01 PM EDT us Driss Alatorre MD LAB BLOOD ORDERABLES Final Resul t Performing Organization Address [facility] de Phone Number [facility] [address] [place] [address] * (ABNORMAL) Glucose, random (02/06/2025 3:00 AM EDT) Only the most recent of2 resultswithin the time period is included. Glucose 228(H) 70 - 99 mg/dL [facility] Comment: ADA guidelines outline the following fasting glucose ranges: Normal: <100 Prediabetes: 100-125 Diabetes: >125 02/06/2025 3:00 AM EDT 02/07/2025 12:37 PM EDT us Driss Alatorre MD LAB BLOOD ORDERABLES Final Resul t Performing Organization Address [facility] de Phone Number [facility] [address] [place] [address] * (ABNORMAL) Ferritin (02/06/2025 3:00 AM EDT) Only the most recent of2 resultswithin the time period is included. Ferritin 1,649(H) 10 - 291 ng/mL [facility] 02/06/2025 3:00 AM EDT 02/07/2025 12:37 PM EDT us Driss Alatorre MD LAB BLOOD ORDERABLES Final Resul t Performing Organization Address [facility] de Phone Number [facility] [address] [place] [address] * (ABNORMAL) Creatinine, serum (02/06/2025 3:00 AM EDT) Only the most recent of2 resultswithin the time period is included. Creatinine 7.32(H) 0.55 - 1.02 mg/dL [facility] 02/06/2025 3:00 AM EDT 02/07/2025 12:37 PM EDT us Driss Alatorre MD LAB BLOOD ORDERABLES Final Resul t Performing Organization Address [facility] de Phone Number [facility] [address] [place] [address] * (ABNORMAL) Bilirubin, total (02/06/2025 3:00 AM EDT) Only the most recent of2 resultswithin the time period is included. Total Bilirubin <0.2(L) 0.3 - 1.2 mg/dL [facility] 02/06/2025 3:00 AM EDT 02/07/2025 12:37 PM EDT us Driss Alatorre MD LAB BLOOD ORDERABLES Final Resul t Performing Organization Address [facility] de Phone Number [facility] [address] [place] [address] * (ABNORMAL) Lipid panel (02/06/2025 3:00 AM EDT) Cholesterol 144 mg/dL [facility] Comment: Optimal: <200 Borderline: 200-239 High Risk: >239 Triglycerides 143 mg/dL [facility] Comment: Optimal: <150 Borderline: 150-200 High Risk: >200 HDL 58(L) mg/dL [facility] Comment: Optimal: >59 Borderline: 40-59 High Risk: <40 LDL-Calc 57 mg/dL [facility] Comment: Optimal: <100 Borderline: 100-159 High Risk: >159 VLDL Cholesterol Adrián 29 mg/dL [facility] Comment: Optimal: <30 Borderline: 30-40 High Risk: >40 Chol/HDL Ratio 2.5 [facility] Comment: Optimal: <3.3 High Risk: >6.2 02/06/2025 3:00 AM EDT 02/07/2025 12:37 PM EDT us Driss Alatorre MD LAB BLOOD ORDERABLES Final Resul t [facility] [address] [place] [address] from Last [address] [place] [address] MCR ([id number]) MATILDE PALACIOS [phone] [facility] MCR ([id number]) MATILDE PALACIOS [phone] Care Teams Gallery Intern Relationship Specialty Start Date End Date Patricia Ingram MD [address] [place] [id number] PCP - General 08/10/20
[2025-03-28 14:59] VITALS: BP 124/60; PULSE 72; BMI 22.1
--- NOTE | 2025-03-28 14:59 | A.OFFVIS_ITS ---
Vital Signs 03/28/25 14:59 Height 5 ft 1 in Weight 116 lb 13.52 oz BMI 22.1 BP 124/60 Blood Pressure Location Lt brachial Position Sitting Pulse 72 Pulse Source Pulse Oximeter Intake Visit Reasons: [facility] f/up Piano Technician Required: Yes Piano Technician Name: DONALD [id number] Allergies No Known Allergies Allergy (Verified 03/03/25 03:38) Medication List - Last Reconciled 03/28/25 by Harsha Sinha NP acetaminophen 1,000 mg PO Q8H PRN amlodipine 10 mg PO DAILY 90 days ascorbic acid (vitamin C) (Vitamin C) 1 tab PO DAILY aspirin 81 mg PO BEDTIME atorvastatin 80 mg PO BEDTIME budesonide-formoterol 80-4.5 mcg/actuation (Symbicort) 2 puffs inhalation BID cholecalciferol (vitamin D3) 25 mcg PO DAILY docusate sodium 100 mg PO BID PRN evolocumab (Repatha SureClick) 140 mg subcut Q2W ezetimibe 10 mg PO QAM furosemide 80 mg (2 x 40 mg) PO BID hydralazine 25 mg PO TID insulin aspart U-100 (Novolog FlexPen U-100 Insulin aspart) See Protocol sliding scale doses subcut BIDAC@0730,1630 insulin aspart U-100 (Novolog FlexPen U-100 Insulin aspart) 3 units subcut DAILY@1200 insulin glargine (Lantus U-100 Insulin) 7 units subcut BEDTIME insulin glargine (Lantus U-100 Insulin) 5 units (0.05 mL) subcut BEDTIME isosorbide mononitrate ER 30 mg PO DAILY melatonin 5 mg PO BEDTIME PRN montelukast 10 mg PO BEDTIME pantoprazole 40 mg PO DAILY@0630 sertraline 150 mg PO DAILY sevelamer carbonate 800 mg PO TIDWM@0800,1200,1700 ticagrelor (Brilinta) 90 mg PO BID HPI Comments Details: This is a 70-year-old female patient coming in for a hospital discharge follow- up, accompanied by her daughter. A chief building inspector was used throughout the visit. Patient has a very complicated medical history consisting of hypertension, hyperlipidemia, diabetes, sleep apnea, coronary artery disease status post CABG in 2018 with a recent PCI on 08/24, aortic stenosis, GI bleeds, and end-stage renal disease on dialysis. Patient was admitted this time again for chest discomfort and was hypertensive with a systolic blood pressures in the 200s with elevated troponins, was offered to be transferred out to [facility] however patient denied this and was managed at [facility] with a heparin drip but subsequently developed GI bleed and was stopped. Later patient also developed hypotension and her carvedilol was stopped. Gastroenterology was consulted however they deferred scoping due to her high-risk cardiovascular disease. Today, patient reports feeling better overall without any exertional chest pain, shortness of breath, palpitations, dizziness, orthopnea, PND, leg edema, presyncope or syncope. However, patient does report that she has started to see some BRBPR. Patient has not seen GI since hospital discharge. Patient's reporting compliance with all her medications. 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 End stage chronic kidney disease Edema Atherosclerotic cardiovascular disease SHELIA (obstructive sleep apnea) Hypercalcemia Asthma DJD (degenerative joint disease) Chronic kidney disease Other and unspecified hyperlipidemia Type 2 diabetes mellitus with unspecified complications Essential hypertension Surgical History History of hemorrhoidectomy (01/30/23) H/O colonoscopy Hemorrhoids H/O angioplasty History of tubal ligation History of coronary artery bypass graft (~2017) Family History Father Cardiovascular disease Hypertension Mother Cardiovascular disease Hypertension Social History Household Members: Children Household Members Other:: Son Housing: Apartment Housing Other:: senior apartment Are you a primary point of care specialist to a significant other at home: No Do you presently have visiting nurse or other home services: No Alcohol intake: never Patient Tobacco Use Status: Never used Tobacco Second Hand Smoke Exposure: No Advance Directives Date on File: 12/03/20 service: No 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al status: disabled 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 Female Reproductive History Menstrual Age of Menarche: 12 Review of Systems Const Denies weakness ENT Denies dizziness Card Denies chest pain, Denies chest pain with activity, Denies syncope, Denies rapid heart rate, Denies pedal edema, Denies edema, Denies leg edema, Denies lightheadedness, Denies palpitations, Denies dyspnea, Denies dyspnea on exertion and Denies orthopnea Resp Denies cough, Denies dyspnea and Denies dyspnea on exertion GI Denies hematochezia and Denies change in stool character Musc Denies abnormal gait, Denies muscle cramps, Denies muscle weakness, Denies numbness, Denies radiating pain into limb and Denies tingling Neuro Denies abnormal gait, Denies dizziness, Denies syncope, Denies numbness, Denies tingling and Denies weakness Endo Denies palpitations Physical Exam Vital Signs: Last Vital Signs Pulse 72 03/28/25 14:59 BP 124/60 03/28/25 14:59 BMI result Body Mass Index 22.1 Const General: cooperative, healthy appearing, comfortable and no acute distress Orientation/consciousness: patient oriented x3 HEENT Head: Yes normal to inspection Neck Neck: Yes normal visual inspection, Yes trachea midline and Yes supple Chest Chest palpation & inspection: normal inspection of the chest Resp Effort & Inspection: normal respiratory effort Auscultation: clear to auscultation bilaterally, no crackles, no rales, no rhonchi and no wheezes Cardio Jugular venous distension: no JVD Palpation: normal PMI Rate: regular rate Rhythm: regular rhythm Heart sounds: S1 normal heart sound present, S2 normal heart sound present, no click, no gallops, Murmur heart sound present systolic at the right sternal border and no rubs Peripheral pulses: Peripheral pulses 2+ throughout GI Inspection: Yes normal to inspection Palpation (GI): Soft to palpation Auscultation: normal bowel sounds Skin General skin exam: no rashes or lesions noted Neuro General: patient oriented x3 Extrem General: Yes normal to inspection, No no pedal edema and No calf tenderness Psych Appearance: grossly normal Mental Status: mental status grossly normal Speech and movement: Normal speech and movement present Assessment & Plan Assessment & Plan (1) Atherosclerotic cardiovascular disease: Comment: w/CABG 2018 Code(s): I25.10 - Atherosclerotic heart disease of [place] coronary artery without angina pectoris Category: Medical Plan: History of CABG in 2018. Recently with chest discomfort where patient underwent another cardiac catheterization at [facility] and was treated with PCI to the left main coronary artery and paroxysmal circum flags artery. Recently in the hospital for chest pain where patient was noted to be hypertensive and with slight troponin elevation. Patient was treated with heparin drip however was discontinued as patient developed GI bleed. Today patient states that she is back on aspirin and Brilinta and is reporting BRBPR. We will stop her aspirin for now. Patient gets her pills from pharmacy in a med box and therefore we wi ll contact the pharmacy to remove aspirin. Advised to continue Brilinta therapy. We will also check her CBC. Advised to follow up with Gastroenterology. (2) S/P cardiac cath: Code(s): Z98.890 - Other specified postprocedural states Category: Surgical Plan: As above. (3) Essential hypertension: Code(s): I10 - Essential (primary) hypertension Category: Medical Plan: Patient had elevated blood pressures initially and was managed with titration of her regular blood pressure medications however patient developed some hypertension and her carvedilol was stopped. Blood pressure today is well- controlled. Patient reports that blood pressures has been stable at home. Continue current regimen. Advised patient to monitor her blood pressures at home. Ideally blood pressure goal for patient less than 130/80. (4) ESRD (end stage renal disease) on dialysis: Code(s): N18.6 - End stage renal disease; Z99.2 - Dependence on renal dialysis Category: Medical Plan: On dialysis, followed by Nephrology. (5) Type 2 diabetes mellitus with unspecified complications: Code(s): E11.8 - Type 2 diabetes mellitus with unspecified complications Category: Medical Plan: Continue aggressive management of diabetes. Ideally A1c goal less than 7.0. (6) Hospital discharge follow-up: Code(s): Z09 - Encounter for follow-up examination after completed treatment for conditions other than malignant neoplasm Plan: As above. Advised heart healthy diet, regular exercise as tolerated, and aggressive management of vascular risk factors. Emphasized on medication compliance. Follow up in 3 weeks. In the interim, patient will call us with any questions or change in symptoms. This note was generated using voice recognition software. While every effort has been made to ensure accuracy and proper business agent, there may be occasional errors that could affect the content or meaning of the described symptoms. Coding Level of Care Code Est Pt Level 5 (77375) Complex EM visit Add On G2211 Diagnoses Atherosclerotic cardiovascular disease I25.10 S/P cardiac cath Z98.890 Essential hypertension I10 ESRD (end stage renal disease) on dialysis N18.6; Z99.2 Type 2 diabetes mellitus with unspecified complications E11.8 Hospital discharge follow-up Z09 Time Spent (min) 40 Comment Time spent in reviewing the chart, test results, assessment, counseling and documentation.
== END 2025-03-28 15:39 | disposition home or self-care (01) ==
LOC: HO.HCS 14:52
PROVIDERS: PCP Family Medicine
DX: I25.10 Atherosclerotic heart disease of native coronary artery without angina pectoris (principal); Z98.890 Other specified postprocedural states; I12.0 Hypertensive chronic kidney disease with stage 5 chronic kidney disease or end stage renal disease; E11.22 Type 2 diabetes mellitus with diabetic chronic kidney disease; N18.6 End stage renal disease; Z99.2 Dependence on renal dialysis; Z09 Encounter for follow-up examination after completed treatment for conditions other than malignant neoplasm
CPT/HCPCS: 99215; G2211

== ENCOUNTER 2025-03-28 14:52 | Outpatient (REF) | payer OTHER, SELFPAY ==
[2025-03-28 17:11] LABS: Hematocrit 27.4 % (37.0-47.0); Hemoglobin 9.3 g/dl (12.0-16.0); Mean Corpuscular HGB Conc 33.9 g/dl (31.0-35.0); Mean Corpuscular Hemoglobin 32.2 pg (27.0-33.0); Mean Corpuscular Volume 94.8 fL (80.0-98.0); NRBC Abs Auto 0.000 X10*3/uL (0.0-0.012); NRBC Pct Auto 0.0 /100WBC (0.0-0.2); Platelet Count 162 X10*3/uL (160-400); Red Blood Count 2.89 X10*6/uL (4.20-5.50); White Blood Count 4.0 X10*3/uL (4.8-10.8)
[2025-03-28 19:05] LABS: Anion Gap 16 (12-20); Blood Urea Nitrogen 23 mg/dL (9-16); Calcium 9.8 mg/dL (8.4-10.2); Carbon Dioxide 30 mmol/L (22-29); Chloride 103 mmol/L (96-108); Cholesterol 143 mg/dL (<200); Estimated Glomerular Filt Rate 9; HDL Cholesterol 52 mg/dL (>40); Potassium 3.7 mmol/L (3.3-5.1); Sodium 145 mmol/L (135-145); Triglycerides 79 mg/dL (<150)
== END 2025-03-28 14:53 | disposition home or self-care (01) ==
LOC: HO.LAB 14:52
PROVIDERS: PCP Family Medicine
DX: I12.0 Hypertensive chronic kidney disease with stage 5 chronic kidney disease or end stage renal disease (principal); E11.22 Type 2 diabetes mellitus with diabetic chronic kidney disease; N18.6 End stage renal disease; Z99.2 Dependence on renal dialysis; I25.810 Atherosclerosis of coronary artery bypass graft(s) without angina pectoris; I24.9 Acute ischemic heart disease, unspecified; Z09 Encounter for follow-up examination after completed treatment for conditions other than malignant neoplasm; Z98.890 Other specified postprocedural states; Z79.899 Other long term (current) drug therapy; Z79.4 Long term (current) use of insulin
CPT/HCPCS: 36415; 80048; 80061; 85027; 99212

== ENCOUNTER 2025-04-08 06:34 | Inpatient (IN) | payer OTHER, SELFPAY ==
--- OUTSIDE RECORDS SUMMARY | 2024-08-28 10:20 | XMS_ITS ---
Author Organization [facility] Address [address] [place] [address] Care Team Providers Care Sign Language Translator Name Role Phone Juan Jose DELGADILLO, Patricia Primary Care Provider Brandt Collazo Jr REASON FOR VISIT GI bleed Encounters Encounter Location Date Provider Diagnosis [facility] Inpatient [address], [place] [id number] 08/28/2024 Brandt Villegas Jr Plan Of Treatment No Information Progress Notes * GALILEOCARL MORANDOB:1955 (70 yo F)Acc No.[id number]:08/28/2024 EGD/MAC Patient: CARL AUGUSTE Provider: Liliane Villegas MD :1955 A ge:69 Y S ex:Female Date:08/28/2024 Address:[address] [place], [place] [id number] Pcp:Patricia Ingram MD Subjective: * Chief Complaints: * 1 . GI bleed. * Medical History: Objective: * Vitals: Assessment: Plan: * Treatment: * * The named appointment provid er may or may not be the originator of this progress note, and it is not deemed complete until electronically signed by the appointment provider. Sign off status: Pending * Provider: Liliane Villegas MD Date: 0 08/28/2024 Generated for Dia davis/Glynn/eTantonioitting on: 0 04/08/2025 07:23 AM EDT
--- OUTSIDE RECORDS SUMMARY | 2024-12-04 09:50 | XMS_ITS ---
Author Organization [facility] Address [address] [place] [address] Care Team Providers Care Supervisor Shop Name Role Phone Juan Jose DELGADILLO, Patricia Primary Care Provider Brandt Collazo Jr Unavailable [phone] REASON FOR VISIT anemia, heme positive stools ( in pt) Encounters Encounter Location Date Provider Diagnosis [facility] [place] [address] [place], [place] [phone] 12/04/2024 Brandt Villegas Jr Plan Of Treatment No Information Progress Notes * CARL HASSANDOB:1955 (70 yo F)Acc No.[id number]:12/04/2024 COLON WITH MAC Patient: CARL AUGUSTE Provider: Liliane Villegas MD :1955 A ge:69 Y S ex:Female Date:12/04/2024 Address:[address] [place] [address] [place], [place] [phone] Pcp:Patricia Ingram MD Subjective: * Chief Complaints: [...] 12/04/2024 Generated for Dia davis/Glynn/Janiceitting on: 0 04/08/2025 07:23 AM EDT
[2025-04-08] VITALS (15 sets, daily range): BP systolic 140–207; BP diastolic 58–80; PULSE 60–70; RESP 14–23; TEMP 36.4–36.8; O2SAT 94–100; BMI 23.2; BMI 20.7
--- NOTE | ~2025-04-08 | XR_ITS ---
CLINICAL HISTORY: chest pain 1 view chest x-ray Comparison: CR/SR - XR CHEST 1V - 03/03/25 08:45 EDT Findings: Lungs are well inflated. Cardiac silhouette remains enlarged. Central interstitial markings are diffusely prominent. Small left pleural effusion with continued fluid within the right minor fissure. No dense area of consolidation. IMPRESSION: Continued findings of volume overload. This document has been electronically signed by: Bart Dan MD on 04/08/2025 07:11:42
--- NOTE | 2025-04-08 06:37 | ECG_ITS ---
Test Reason : CP Blood Pressure : */* mmHG Vent. Rate : 62 BPM Atrial Rate : 62 BPM P-R Int : 146 ms QRS Dur : 100 ms QT Int : 446 ms P-R-T Axes : 60 15 30 degrees QTcB Int : 452 ms Normal sinus rhythm Incomplete right bundle branch block Septal infarct , age undetermined Abnormal ECG When compared with ECG of 06-Mar-2025 15:36, Sinus rhythm has replaced Ectopic atrial rhythm Referred By: Irina Choi Electronically Signed By: RUSTY DUVALL MD
--- NOTE | 2025-04-08 06:51 | ED.CHESTPAIN ---
HPI - Chest Pain General Chief Complaint: Chest Pain Stated Complaint: CHEST TIGHTNESS Time Seen by Provider: 04/08/25 06:36 Source: patient, EMS, old records reviewed and project technician Mode of arrival: EMS Limitations: no limitations History of Present Illness ED Provider: MITCHEL MCKENNA narrative: 70 yo female with PMH of ESRD on HD T last went Monday, anemia, CAD s/p CABG x 3V in 2017 recent cardiac cath in Jul 2024 s/p LUISANA to left main and prox circ she reports she is on aspirin and brilinta, aortic stenosis, GI bleed, gastritis, GERD, panic and anxiety disorder, asthma, DM2, SHELIA, HLD, here with c/o waking from sleep with central chest pressure at 3am. It made her feel short of breath. She states she did not take any BP meds this AM. She is due for HD. She also notes that she has not had a resp infection or fever. No recent travel or procedures. She states the pain feels pressure like and it hurts to move or touch or chest she denies any known trauma. No change in baseline cough. She is not really sure what medications she is on but states she takes a lot of meds at night. 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 Onset (ago): hour(s) (3am) Timing of current episode: constant Prior episodes: Yes Onset: during rest Pain location: substernal Pain radiation: none Severity: moderate Quality: tightness (pressure) Relieving factors: nothing Exacerbating factors: palpation and movement Associated symptoms: nausea and dyspnea Treatment prior to arrival: aspirin Related Data Home Medications ?Medication ?Instructions ?Recorded ?Confirmed sertraline 100 mg tablet 150 mg PO DAILY 06/10/20 03/28/25 ascorbic acid (vitamin C) 500 mg 1 tab PO DAILY 12/03/20 03/28/25 tablet (Vitamin C) montelukast 10 mg tablet 10 mg PO BEDTIME 12/03/20 03/28/25 sevelamer carbonate 800 mg tablet 800 mg PO TIDWM@0800,1200,1700 01/25/23 03/28/25 acetaminophen 500 mg tablet 1,000 mg PO Q8H PRN Pain 02/08/23 03/28/25 budesonide-formoterol HFA 80 2 puff inhalation BID 02/08/23 03/28/25 mcg-4.5 mcg/actuation aerosol inhaler (Symbicort) cholecalciferol (vitamin D3) 25 25 mcg PO DAILY 01/01/24 03/28/25 mcg (1,000 unit) tablet docusate sodium 100 mg capsule 100 mg PO BID PRN Constipation 08/13/24 03/28/25 insulin glargine 100 unit/mL 7 unit subcut BEDTIME 08/13/24 03/28/25 subcutaneous solution (Lantus U-100 Insulin) melatonin 5 mg tablet 5 mg PO BEDTIME PRN Insomnia 08/13/24 03/28/25 ticagrelor 90 mg tablet (Brilinta) 90 mg PO BID 08/13/24 03/28/25 insulin aspart U-100 100 unit/mL 3 unit subcut DAILY@1200 08/26/24 03/28/25 (3 mL) subcutaneous pen (Novolog FlexPen U-100 Insulin aspart) insulin aspart U-100 100 unit/mL See Protocol subcut BIDAC@0730,1630 08/26/24 03/28/25 (3 mL) subcutaneous pen (Novolog FlexPen U-100 Insulin aspart) isosorbide mononitrate 30 mg 30 mg PO DAILY 10/02/24 03/28/25 tablet,extended release 24 hr pantoprazole 40 mg tablet,delayed 40 mg PO DAILY@0630 10/10/24 03/28/25 release evolocumab 140 mg/mL subcutaneous 140 mg subcut Q2W 03/03/25 03/28/25 pen injector (Kenia Naranjo) Previous Rx's ?Medication ?Instructions ?Recorded amlodipine 10 mg tablet 10 mg PO DAILY 90 days #90 tabs 12/06/22 atorvastatin 80 mg tablet 80 mg PO BEDTIME #90 tabs 08/17/23 furosemide 40 mg tablet 80 mg (2 x 40 mg) PO BID #240 tabs 10/02/24 hydralazine 25 mg tablet 25 mg PO TID #90 tabs 11/28/24 insulin glargine 100 unit/mL 5 unit (0.05 mL) subcut BEDTIME 03/11/25 subcutaneous solution (Lantus #10 mL U-100 Insulin) ezetimibe 10 mg tablet 10 mg PO QAM #90 tabs 03/24/25 Allergies Allergy/AdvReac Type Severity Reaction Status Date / Time No Known Allergies Allergy Verified 04/08/25 06:49 Review of Systems Review of Systems: Constitutional : No Weight loss, No Fever, No Chills ENT/Mouth : No sore throat, No Rhinorrhea Eyes: No Eye Pain, No Swelling Cardiovascular : pos Chest Pain, pos SOB, no edema Respiratory : No Cough, No Sputum Gastrointestinal : pos Nausea, No Vomiting, No Diarrhea, No abdominal Pain, No Hematochezia, No Melena Genitourinary : No Dysuria, No Urinary Frequency Musculoskeletal : No joint pain, No Myalgias, No Joint Swelling Skin : No Skin Lesions, No rash Neuro : No Weakness, No Numbness, No Dizziness, No Headache All other systems reviewed and are negative [facility] Past Medical History Attestation statement: The following information was validated with the patient. 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 End stage chronic kidney disease Edema Atherosclerotic cardiovascular disease SHELIA (obstructive sleep apnea) Hypercalcemia Asthma DJD (degenerative joint disease) Chronic kidney disease Other and unspecified hyperlipidemia Type 2 diabetes mellitus with unspecified complications Essential hypertension Surgical History History of hemorrhoidectomy (01/30/23) H/O colonoscopy Hemorrhoids H/O angioplasty History of tubal ligation History of coronary artery bypass graft (~2017) Family History Family History Father Cardiovascular disease Hypertension Mother Cardiovascular disease Hypertension Social History Social History Household Members: Children Household Members Other:: Son Housing: Apartment Housing Other:: senior apartment Are you a primary attending ambulatory care to a significant other at home: No Do you presently have visiting nurse or other home services: No Alcohol intake: never Patient Tobacco Use Status: Never used Tobacco Smoked in Last 30 Days: No Second Hand Smoke Exposure: No Use of substances other than those prescribed or required for medical reasons: No Advance Directives: Yes Advance Directives on File: Yes Advance Directives Date on File: 12/03/20 service: No 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al status: disabled 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 Oriented X3. No acute distress. Eyes: Pupils equal, round and reactive to light. ENT: Pharynx normal. Neck: Normal inspection. Neck supple. CVS: Normal heart rate and rhythm. Pulses normal. Chest: states ttp along sternum Respiratory: No respiratory distress. Breath sounds both bases diminished Abdomen: Soft and nontender. Skin: Skin warm and dry. pale skin color. Normal skin turgor. Extremities: No lower extremity edema. LUE AV fistula + thrill noted Neuro: Oriented X 3. No motor deficit. No sensory deficit. Course Course Course Narrative: she is feeling much better she will give given additional AM BP medications. Medications Administered Discontinued Medications Generic Name Dose Route Start Last Admin Trade Name Tianq PRN Reason Stop Dose Admin Carvedilol 3.125 mg 04/08/25 08:07 04/08/25 08:14 Carvedilol 3.125 Mg Tablet PO 04/08/25 08:08 3.125 mg ONCE ONE Administration Protocol Furosemide 60 mg 04/08/25 09:18 04/08/25 09:26 Furosemide 100 Mg/10 Ml Vial IVPUSH 04/08/25 09:19 60 mg ONCE ONE Administration Protocol Hydralazine HCl 25 mg 04/08/25 06:43 04/08/25 07:01 Hydralazine Hcl 25 Mg Tablet PO 04/08/25 06:44 25 mg ONCE ONE Administration Protocol Isosorbide Mononitrate 30 mg 04/08/25 08:07 04/08/25 08:15 Isosorbide Mononitrate 30 Mg Tab.Er.24h PO 04/08/25 08:08 30 mg ONCE ONE Administration Protocol Morphine Sulfate 4 mg 04/08/25 06:44 04/08/25 08:08 Morphine Sulfate 4 Mg/Ml Cartridge IVPUSH 04/08/25 06:45 4 mg ONCE ONE Administration Protocol Nitroglycerin 0.5 inch 04/08/25 06:43 04/08/25 07:02 Nitroglycerin 2 % Oint 1 Gm Packet TRANSDERMA 04/08/25 06:44 0.5 inch ONCE ONE Administration Medical Decision Making Medical Decision Making [facility] Narrative: 70 yo female with PMH of ESRD on HD T S last went Monday, anemia, CAD s/p CABG x 3V in 2017 recent cardiac cath in Jul 2024 s/p LUISANA to left main and prox circ she reports she is on aspirin and brilinta, aortic stenosis, GI bleed, gastritis, GERD, , asthma, DM2, SHELIA, HLD, here with c/o dyspnea, chest pressure and she presents with elevated BPs at this time will need basic labs, CXR, EKG, repeat troponin. She c/o chest wall pain but given extensive cardiac history will closely evaluate. She was already given aspirin. Will give her AM hydralazine, nitro paste, IV morphine for pain. She has no hypoxia or tachycardia / signs of DVT to suggest VTE. She has no pain to back and it is reproduceable doubt dissection. Differential Diagnosis Differential Diagnoses: The differential diagnosis associated with the presentation includes ACS, volume overload, low prob VTE, URI, chest wall pain Admission/Observation Consideration of admission/observation: Escalation of care including admission/observation considered repeat trop flat, BP is coming down I am going to admit for chest pain/dyspnea in setting of volume overload will notify nephro Consult Healthcare Provider Management of the patient was discussed with: Hospitalist (will admit) and [facility] aware of admission and likely need for HD Lab Data [facility] Lab Attestation statement: I reviewed the patient's lab results. 04/08/25 07:10 04/08/25 07:10 Labs: Lab Results 04/08/25 04/08/25 Range/Units 07:10 09:21 WBC 5.1 (4.8-10.8) X10*3/uL RBC 2.85 L (4.20-5.50) X10*6/uL Hgb 8.8 L (12.0-16.0) g/dl Hct 26.5 L (37.0-47.0) % MCV 93.0 (80.0-98.0) fL MCH 30.9 (27.0-33.0) pg MCHC 33.2 (31.0-35.0) g/dl RDW 14.9 (11.0-16.0) % Plt Count 184 (160-400) X10*3/uL MPV 10.0 (9.4-12.3) fL Immature Gran % (Auto) 0.4 (0.0-0.4) % Neut % (Auto) 69.6 (45-73) % Lymph % (Auto) 21.7 (20-40) % Braxton % (Auto) 6.7 (2-11) % Eos % (Auto) 1.2 (0-4) % Baso % (Auto) 0.4 (0-2) % Lymph # (Auto) 1.1 L (1.2-4.9) X10*3/uL Braxton # (Auto) 0.3 (0.1-1.2) X10*3/uL Eos # (Auto) 0.1 (0.0-0.4) X10*3/uL Baso # (Auto) 0.0 (0.0-0.2) X10*3/uL Abs Immat Gran (auto) 0.02 (0.00-0.03) X10*3/uL Absolute Neuts (auto) 3.6 (2.0-8.3) x10*3/uL Absolute Nucleated RBC 0.000 (0.0-0.012) X10*3/uL Nucleated RBC % (auto) 0.0 (0.0-0.2) /100WBC Sodium 141 (135-145) mmol/L Potassium 4.5 D (3.3-5.1) mmol/L Chloride 100 (96-108) mmol/L Carbon Dioxide 27 (22-29) mmol/L Anion Gap 19 (12-20) BUN 43 H (9-16) mg/dL Creatinine 7.34 H* (0.5-1.4) mg/dL Estim Creat Clear Calc 5.2 Estimated GFR 5 Random Glucose 89 (60-115) mg/dL Calcium 9.6 (8.4-10.2) mg/dL Magnesium 2.5 (1.6-2.6) mg/dL Total Bilirubin 0.4 (0.0-1.0) mg/dL Direct Bilirubin 0.2 (0.0-0.5) mg/dL AST 16 (5-31) U/L ALT < 6 (0-31) U/L Alkaline Phosphatase 143 H (39-117) U/L Troponin I High Sens 19.1 H 18.0 H (<3.5-17.0) ng/L B-Natriuretic Peptide 1622 H (<100) pg/mL Total Protein 6.8 (6.5-8.0) g/dL Albumin 4.0 (3.5-5.0) g/dL Lipase 128 H (8-78) U/L Independent Interpretation I performed an independent interpretation of an: EKG and Plain X-Ray (fluid overload) Interpretation: Rate: 62 Rhythm: NSR [place]: normal Normal P waves. Normal GWEN. Normal QRS complex. ST T wave : flat t wave III, no JOSE LUIS qTC: 452 prior studies: no sig change from priors The study has been interpreted contemporaneously by me. . Radiology Impression Discussion of test interpretation with radiology: I have reviewed the radiologist's reading. Discharge Plan Discharge Clinical Impression: Chest heaviness, Breath shortness, Hypertension, uncontrolled Volume overload Qualifiers: Hypervolemia type: unspecified Qualified Code(s): E87.70 - Fluid overload, unspecified Patient Disposition: Admitted As Inpatient Print Language: Italian
--- NOTE | 2025-04-08 06:52 | PC.NURSE ---
Pt roomed and placed on full monitor- seen by provider on arrival. Aware of BP. Pt with only complaint chest tightness - due for dialysis today, states constipation X3-7 days which is normal- unsure how long it has been this time.Pt states she strained with last BM and is attributing pain to that.
[2025-04-08] MEDS: Nitroglycerin 2 % Oint 1 GM Packet 0.5 INCH TRANSDERMA (07:02)
[2025-04-08 07:13] LABS: MANUAL DIFF FLAG NO
[2025-04-08 07:16] LABS: Hematocrit 26.5 % (37.0-47.0); Hemoglobin 8.8 g/dl (12.0-16.0); Imm Gran Abs Auto 0.02 X10*3/uL (0.00-0.03); Imm Gran Pct Auto 0.4 % (0.0-0.4); Lymphocytes Absolute Auto 1.1 X10*3/uL (1.2-4.9); Mean Corpuscular HGB Conc 33.2 g/dl (31.0-35.0); Mean Corpuscular Hemoglobin 30.9 pg (27.0-33.0); Mean Corpuscular Volume 93.0 fL (80.0-98.0); NRBC Abs Auto 0.000 X10*3/uL (0.0-0.012); NRBC Pct Auto 0.0 /100WBC (0.0-0.2); Platelet Count 184 X10*3/uL (160-400); Red Blood Count 2.85 X10*6/uL (4.20-5.50); White Blood Count 5.1 X10*3/uL (4.8-10.8)
--- OUTSIDE RECORDS SUMMARY | 2025-04-08 07:23 | XMS_ITS | Encounter Summary ---
Author Organization [facility] Address [address] [address] Phone Care Team Providers Care Implant Polisher Name Role Phone Patricia Ingram MD Primary Care Provider [phone] Encounter Details Date Type Department Care Team (Late st Contact Info) Description 03/13/2025 TCM in Dialysis Clinic [facility] [address] [address] Richard Alatorre MD [address] [address] Social History Tobacco Use Types [...] 03/13/2025 The patient was seen for a xunr-ed-gwlb visit as part of Transitional Care Management services. Attending Horticulture Worker: RICHARD ALATORRE MD Dialysis Location: [facility] Schedule: Shift: 2 INTERACTIVE CONTACT Contact [...] with the patient. VISIT DIAGNOSES CPT Code 66948 - High complexity, seen within 7 days of discharge. N18.6 End stage renal disease Signed by: RICHARD ALATORRE MD on 03/13/2025 at 12:20:39 PM Transcribed by: RICHARD ALATORRE MD on 03/13/2025 at 12:20:39 PM documented in this encounter Plan of Treatment Not on file documented as of this encounter Visit Diagnoses Not on filedocumented in this encounter Care Teams Implant Polisher Relationship Specialty Start Date End Date Patricia Ingram MD [address] [place] [id number] PCP - General 08/10/20 documented as of this encounter
--- OUTSIDE RECORDS SUMMARY | 2025-04-08 07:23 | XMS_ITS | Encounter Summary ---
Author Organization [facility] Address [address] [facility] [address] [place] [address] Phone Care Team Providers Care Cook Helper Juice Name Role Phone Patricia Ingram MD Primary Care Provider [phone] Reason for Visit * Reason Comments Med Refill Encounter Details Date Type Department Care Team ([facility] st Contact Info) Description 09/07/2021 Refill [facility] [address] [place] [phone] Yared Powell MD [address] [facility] [address] [place] [phone] Social History Tobacco Use Types Packs/Day Years [...] on filedocumented in this encounter Care Teams Cook Helper Juice Relationship Specialty Start Date End Date Patricia Ingram MD [address] [place] [address] PCP - General 08/10/20 documented as of this encounter
--- OUTSIDE RECORDS SUMMARY | 2025-04-08 07:23 | XMS_ITS | Encounter Summary ---
Author Organization [facility] [place] Address [address] [facility] 200 [place] [address] Phone Care Team Providers Care Terra Cotta Setter Name Role Phone Patricia Ingram MD Primary Care Provider Reason for Visit * Reason Comments Med Refill Encounter Details Date Type Department Care Team (Late st Contact Info) Description 11/08/2022 Refill [facility] [address] [place] [address] Feliciano Baldwin MD Social History Tobacco [...] on filedocumented in this encounter Care Teams Terra Cotta Setter Relationship Specialty Start Date End Date Patricia Ingram MD [address] [place] [address] PCP - General 08/10/20 documented as of this encounter
--- OUTSIDE RECORDS SUMMARY | 2025-04-08 07:23 | XMS_ITS | Encounter Summary ---
Author Organization [facility] Address 100 [facility] [address] [place] [address] Phone Care Team Providers Care Payment Processor Name Role Phone Patricia Ingram MD Primary Care Provider [phone] Reason for Visit * Reason Comments Med Refill Encounter Details Date Type Department Care Team (Late st Contact Info) Description 09/07/2022 Refill [facility] [address] [place] [address] Kentrell Leos MD Social History [...] on filedocumented in this encounter Care Teams Payment Processor Relationship Specialty Start Date End Date Patricia Ingram MD [address] [place] [address] PCP - General 08/10/20 documented as of this encounter
--- OUTSIDE RECORDS SUMMARY | 2025-04-08 07:23 | XMS_ITS | Patient Health Record ---
Author Organization [facility] kirk Bonniedinorah Address [address] [place] [address] Care Team Providers Care Cancer Researcher Name Role Phone Juan Jose DELGADILLO, Patricia Primary Care Provider Bradford Villegas Jr, Brandt Unavailable Results Component Value Reference Range Notes Type and Screen Reviewed date:08/29/2024 10:35:21 AM Interpretation: Performing Lab:[facility], [address] [place] [phone] Notes/Report: Results at Issue Units as of 08/26/24 0456 ... Test View Group: Most Recent HGB HCT Results LABORATORY Date Time Test Result Flag Normal Range 08/26/24 1100 [facility] PENDING RECEIPT 12.0-16.0 g/dl 08/26/24 0204 H[facility] 6.0 #*L 12.0-16.0 g/dl Results of HGB called to and read back by InkerwangA on 08/26/24 at 0222 by TERRENCE. 08/26/24 [...] Cells Reviewed date:08/29/2024 10:35:28 AM Interpretation: Performing Lab:[facility], [address] [place] [phone] Notes/Report: Red Blood Cells [id number] OP RC Red Blood Cells NOT AVAILABLE Red Blood Cells [id number] OP RC Red Blood Cells TRANSFUSED 08/26/24 0454 Red Blood Cells [id number] BP RC Red Blood Cells TRANSFUSED 08/26/24 1500 Complete Blood Count no Diff Reviewed date:08/28/2024 07:49:19 AM Interpretation: Performing Lab:[facility], [address] [place] [phone] Notes/Report: White Blood Count 5.1 4.8-10.8 X10*3/uL [...] Pathology Reviewed date:09/04/2024 08:03:17 AM Interpretation: Performing Lab:[facility], [address] [place] [phone] Notes/Report: Reason For Referral No Information Medications [...] Active Encounters Encounter Location Date Provider Diagnosis [facility] Inpatient [address] [place] [id number] 08/28/2024 Brandt Villegas Jr [facility] [address] [place] [phone] 09/04/2024 Brandt Villegas Jr [facility] [address] [place] [phone] 12/04/2024 Brandt Villegas Jr [facility] [address] [address] 12/04/2024 Brandt Villegas Jr Plan Of Treatment No Information Insurance Providers Payer Name Payer Address Payer Phone Subscriber Number Group Number Insured Name Patient Relationship to Insured Coverage Start Date Coverage End Date [facility] [address] Attn Claims [place] [address] [phone] [id number] CARL HASSAN Self - patient is the insured
--- OUTSIDE RECORDS SUMMARY | 2025-04-08 07:24 | XMS_ITS | Encounter Summary ---
Author Organization [facility] Address [address] [place] [phone] Phone Care Team Providers Care Park Keeper Name Role Phone Patricia Ingram MD Primary Care Provider [phone] Encounter Details Date Type Department Care Team (Late st Contact Info) Description 04/03/2025 Treatment [facility] [address] [phone] Richard Alatorre MD [address] [address] End stage renal disease; Dependence [...] Dialysis Note - Richard Alatorre MD - 04/03/2025 12:00 AM EDT BASIC NOTE Patient: Kavitha Padilla : 1955 Note Author: RICHARD ALATORRE MD Service Date: 04/03/2025 This patient was personally seen [id number] for a basic visit as part of routine monthly dialysis care for end stage renal disease. Attending Office System Analyst: RICHARD ALATORRE MD Dialysis Location: [facility] Schedule: Shift: 2 HOME MEDICATIONS Current [...] 135 (02/06/25) 139 (01/02/25) ANEMIA ASSESSMENT Hgb 9.3 (03/22/25) 10.0 (03/13/25) 8.6 (02/27/25) Iron Saturation (TSat) 63 (02/06/25) 18 (01/02/25) [...] (08/08/24) Signed by: RICHARD ALATORRE MD on 04/03/2025 at 12:04:28 PM Transcribed by: RICHARD ALATORRE MD on 04/03/2025 at 12:04:28 PM documented in this encounter Plan of Treatment Not on file documented as of this encounter Visit Diagnoses Diagnosis End stage renal disease Dependence on renal dialysis documented in this encounter Care Teams Park Keeper Relationship Specialty Start Date End Date Patricia Ingram MD [address] [place] [address] PCP - General 08/10/20 documented as of this encounter
--- OUTSIDE RECORDS SUMMARY | 2025-04-08 07:24 | XMS_ITS | Encounter Summary ---
Author Organization [facility] Address 100 [facility] [address] [place] [address] Phone Care Team Providers Care Manager Drug Safety Name Role Phone Patricia Ingram MD Primary Care Provider [phone] Encounter Details Date Type Department Care Team (Late st Contact Info) Description 12/21/2020 Orders Only [facility] [address] [place] [phone] Yared Powell MD [address] [facility] [address] [place] [phone] Nephrotic range proteinuria; 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
--- OUTSIDE RECORDS SUMMARY | 2025-04-08 07:24 | XMS_ITS | Encounter Summary ---
Author Organization [facility] [place] Address [address] [facility] 200 [place] [address] Phone Care Team Providers Care Middle School Music Teacher Name Role Phone Patricia Ingram MD Primary Care Provider [phone] Reason for Visit * Reason Comments Med Refill Encounter Details Date Type Department Care Team ([facility] st Contact Info) Description 04/29/2021 Refill [facility] [address] [place] [phone] Yared Powell MD [address] [facility] [address] [place] [phone] Social History Tobacco Use Types Packs/Day Years [...] on filedocumented in this encounter Care Teams Middle School Music Teacher Relationship Specialty Start Date End Date Patricia Ingram MD [address] [place] [address] PCP - General 08/10/20 documented as of this encounter
--- OUTSIDE RECORDS SUMMARY | 2025-04-08 07:24 | XMS_ITS | Clinical Summary ---
Author Organization [facility] Address [address] [facility] [address] [place] [address] Phone Care Team Providers Care Fuel Cell Technician Name Role Phone Patricia Ingram MD Primary Care Provider [phone] Allergies No known active allergies Medications amLODIPine [...] Encounters Date Type Department Care Team Description 04/03/2025 Treatment [facility] [address] [phone] Driss Alatorre MD End stage renal disease; Dependence on renal dialysis 04/01/2025 Treatment [facility] [address] [phone] Driss Alatorre MD End stage renal disease; Dependence on renal dialysis 03/25/2025 Treatment [facility] [address] [phone] Driss Alatorre MD End stage renal disease; Dependence on renal dialysis 03/18/2025 Treatment [facility] [address] [phone] Driss Alatorre MD End stage renal disease; Dependence on renal dialysis 03/13/2025 Orders Only [facility] [address] [phone] Driss Alatorre MD 03/13/2025 [facility] in Dialysis Clinic [facility] [address] [phone] Driss Alatorre MD 03/13/2025 Treatment [facility] [address] [phone] Driss Alatorre MD End stage renal disease; Dependence on renal dialysis 02/25/2025 Treatment [facility] [address] [address] Driss Alatorre MD End stage renal disease; Dependence on renal dialysis 02/20/2025 Treatment [facility] [address] [phone] Driss Alatorre MD End stage renal disease; Dependence on renal dialysis 02/18/2025 Treatment [facility] [address] [phone] Driss Alatorre MD End stage renal disease; Dependence on renal dialysis 02/11/2025 [facility] [address] [address] Driss Alatorre MD End stage renal disease; Dependence on renal dialysis 02/04/2025 Treatment [facility] [address] [phone] Driss Alatorre MD End stage renal disease; Dependence on renal dialysis 01/14/2025 Treatment [facility] [address] [phone] Driss Alatorre MD End stage renal disease; Dependence on renal dialysis 01/07/2025 Treatment [facility] [address] [phone] Driss Alatorre MD End stage renal disease; [...] 04/15/2020, Additional history exists Diabetes: Hemoglobin A1C 05/09/2025 025, 10/31/2024, 08/21/2024, Additional history exists Pneumococcal Vaccine: 50+ Years Completed 12/02/2024, 10/23/2018, 04/25/2017, Additional history exists Pneumococcal Vaccine: Peds ( 0 to 5 Years) and At-Risk Patients (6 to 49 Years) Discontinued 12/02/2024, 10/23/2018, 04/25/2017, Additional history exists Procedures Procedure Name Priority Date/Time Associated Diagnosis Comments PTH, INTACT Routine 04/03/2025 3:00 AM EDT FERRITIN Routine 04/03/2025 3:00 AM EDT TRANSFERRIN SATURATION Routine 3:00 AM EDT PROTEIN, TOTAL, SERUM Routine 04/03/2025 3:00 AM EDT MAGNESIUM Routine 04/03/2025 3:00 AM EDT LIH (HC) Routine 04/03/2025 3:00 AM EDT ELECTROLYTE PANEL Routine 04/03/2025 3:0 0 AM EDT BILIRUBIN, TOTAL Routine 04/03/2025 3:00 AM EDT LACTATE DEHYDROGENASE Routine 04/03/2025 3:00 AM EDT GLUCOSE, RANDOM Routine 04/03/2025 3:00 AM EDT CREATININE, SERUM Routine 04/03/2025 3:0 0 AM EDT BUN/CREATININE RATIO Routine 04/03/2025 3:00 AM EDT AST Routine 04/03/2025 3:00 AM EDT CALCIUM PHOSPHORUS PRODUCT, ADJUSTED (HC) Routine 04/03/2025 3:00 AM EDT ALKALINE PHOSPHATASE Routine 04/03/2025 3:00 AM EDT ALT Routine 04/03/2025 3:00 AM EDT CBC AND DIFFERENTIAL Routine 04/03/2025 3:00 AM EDT KT/V NATURAL LOG, URR (HC) Routine 04/03/2025 3:00 AM EDT HEMOGLOBIN AND HEMATOCRIT, BLOOD Routine 03/22/2025 3:00 [...] HEMATOCRIT, BLOOD Routine 01/16/2025 3:00 AM EDT from Last 3 Months Results * LIH (04/03/2025 3:00 AM EDT) Only the most recent of5 resultswithin the time period is included. Lipemia Normal Normal [facility] Icterus Normal Normal [facility] Hemolysis Normal Normal [facility] 04/03/2025 3:00 AM EDT 04/04/2025 2:56 PM EDT us Driss Alatorre MD LAB [id number] ICITED RESULTS Final Result Performing Organization Address [facility] Co de Phone Number [facility] [address] [place] [address] * (ABNORMAL) Kt/V Natural Log, URR (04/03/2025 3:00 AM EDT) Only the most recent of3 resultswithin the time period is included. Treatment Time 185 min [facility] Pre-Weight, lb 54.7 kg [facility] Post-Weight, lb 53.0 kg [facility] Ultrafiltration Rate 10 <=13 mL/kg/hr [facility] Comment: Recommend achieving Ultrafiltration Rate (UFR) <=10 mL/kg/hr References: Kendy VELÁSQUEZ et al. Kidney Int. 2010; 79(2):250-257 BUN 29(H) 7 - 25 mg/dL [facility] BUN Post Dialysis 6(L) 7 - 25 mg/dL [facility] UREA REDUCTION RATIO (%) 79 >=65 % [facility] Kt/V Natural Log 1.81 >=1.2 [facility] 04/03/2025 3:00 AM EDT 04/04/2025 12:50 PM EDT us Driss Alatorre MD LAB [id number] ICITED RESULTS Final Result Performing Organization Address City/[facility]/ZIP Co de Phone Number [facility] [address] [place] [address] * (ABNORMAL) Calcium Phosphorus Product, Adjusted (04/03/2025 3:00 AM EDT) Only the most recent of2 resultswithin the time period is included. Albumin 3.9 3.6 - 5.4 g/dL [facility] Calcium 9.6 8.6 - 10.3 mg/dL [facility] Phosphorus, Serum 5.2(H) 2.5 - 5.0 mg/dL [facility] Ca*PO4 49.9 <55.0 mg2/dL2 [facility] Calcium, Adjusted Total 9.7 8.6 - 10.3 mg/dL [facility] CA*PO4 CORRCTD 50.4 <55.0 mg2/dL2 [facility] 04/03/2025 3:00 AM EDT 04/04/2025 2:56 PM EDT us Driss Alatorre MD LAB [id number] ICITED RESULTS Final Result Performing Organization Address City/[facility]/ZIP Co de Phone Number [facility] [address] [place] [address] * BUN/CREATININE RATIO (04/03/2025 3:00 AM EDT) Only the most recent of2 resultswithin the time period is included. BUN/Creatinine Ratio 4.2 <=23.0 [facility] 04/03/2025 3:00 AM EDT 04/04/2025 2:56 PM EDT us Driss Alatorre MD LAB [id number] ICITED RESULTS Final Result Performing Organization Address City/[facility]/ZIP Co de Phone Number [facility] [address] [place] [address] * (ABNORMAL) TSAT (04/03/2025 3:00 AM EDT) Only the most recent of2 resultswithin the time period is included. Iron 32(L) 50 - 170 ug/dL [facility] Transferrin 115(L) 250 - 380 mg/dL [facility] TIBC 161(L) 211 - 406 ug/dL [facility] Iron Saturation (TSat) 20(L) 22 - 52 % [facility] 04/03/2025 3:00 AM EDT 04/04/2025 2:56 PM EDT Driss Alatorre MD LAB BLOOD ORDERABLES Final Resul t Performing Organization Address City/[facility]/ZIP Co de Phone Number [facility] [address] [place] [address] * (ABNORMAL) CBC and Differential (04/03/2025 3:00 AM EDT) Only the most recent of2 resultswithin the time period is included. DIFFERENTIAL MANUAL, 2 Not Indicated [facility] White Blood Cells 3.9(L) 4.0 - 10.0 K/uL [facility] RBC 2.71(L) 3.93 - 5.22 M/uL [facility] Hgb 8.4(L) 11.2 - 15.7 g/dL [facility] Hemoglobin x 3 25.2(L) 33.6 - 47.1 g/dL [facility] Hematocrit 26.4(L) 34.1 - 44.9 % [facility] MCV 97.4(H) 79.4 - 94.8 fL [facility] MCH 31.0 25.6 - 32.2 pg [facility] MCHC 31.8(L) 32.2 - 35.5 g/dL [facility] RDW 15.7(H) 11.7 - 14.4 % [facility] Platelets 212 182 - 369 K/uL [facility] MPV 10.8 9.2 - 12.8 fL [facility] Neutrophils Relative 75.7(H) 34.0 - 71.1 % [facility] Lymphocytes Relative 17.1(L) 19.3 - 51.7 % [facility] Monocytes 5.4 4.7 - 12.5 % [facility] Eosinophils Relative 1.0 0.7 - 5.8 % [facility] Basophils Relative 0.5 0.1 - 1.2 % [facility] Immature Granulocytes 0.3 0.0 - 1.0 % [facility] 04/03/2025 3:00 AM EDT 04/04/2025 1:02 PM EDT Driss Alatorre MD LAB BLOOD ORDERABLES Final Resul t Performing Organization Address City/[facility]/ZIP Co de Phone Number [facility] [address] [place] [address] * (ABNORMAL) ALT (04/03/2025 3:00 AM EDT) Only the most recent of2 resultswithin the time period is included. ALT (SGPT) 7(L) 10 - 49 U/L [facility] 04/03/2025 3:00 AM EDT 04/04/2025 2:56 PM EDT us Driss Alatorre MD LAB BLOOD ORDERABLES Final Resul t Performing Organization Address City/[facility] Co de Phone Number [facility] [address] [place] [address] * AST (04/03/2025 3:00 AM EDT) Only the most recent of2 resultswithin the time period is included. AST (SGOT) 10 <34 U/L [facility] 04/03/2025 3:00 AM EDT 04/04/2025 2:56 PM EDT us Driss Alatorre MD LAB BLOOD ORDERABLES Final Resul t Performing Organization Address [facility] Co de Phone Number [facility] [address] [place] [address] * Protein, total (04/03/2025 3:00 AM EDT) Only the most recent of2 resultswithin the time period is included. Total Protein 6.7 6.4 - 8.9 g/dL [facility] 04/03/2025 3:00 AM EDT 04/04/2025 2:56 PM EDT us Driss Alatorre MD LAB BLOOD ORDERABLES Final Resul t Performing Organization Address [facility] Co de Phone Number [facility] [address] [place] [address] * (ABNORMAL) Alkaline phosphatase (04/03/2025 3:00 AM EDT) Only the most recent of2 resultswithin the time period is included. Alkaline Phosphatase 140(H) 46 - 116 U/L [facility] 04/03/2025 3:00 AM EDT 04/04/2025 2:56 PM EDT us Driss Alatorre MD LAB BLOOD ORDERABLES Final Resul t Performing Organization Address City/[facility] Co de Phone Number [facility] [address] [place] [address] * (ABNORMAL) PTH, Intact (04/03/2025 3:00 AM EDT) Only the most recent of3 resultswithin the time period is included. PTH, Intact 1,918(H) 160 - 721 pg/mL [facility] Comment: Suggested (KDIGO) ESRD maintenance range is two to nine times the upper normal limit (80.1 pg/mL) for the laboratory. 04/03/2025 3:00 AM EDT 04/04/2025 2:56 PM EDT us Driss Alatorre MD LAB BLOOD ORDERABLES Final Resul t Performing Organization Address [facility] Co de Phone Number [facility] [address] [place] [address] * Magnesium (04/03/2025 3:00 AM EDT) Only the most recent of2 resultswithin the time period is included. Magnesium 2.2 1.9 - 2.7 mg/dL [facility] 04/03/2025 3:00 AM EDT 04/04/2025 2:56 PM EDT us Driss Alatorre MD LAB BLOOD ORDERABLES Final Resul t Performing Organization Address City/[facility] Co de Phone Number [facility] [address] [place] [address] * Lactate dehydrogenase (04/03/2025 3:00 AM EDT) Only the most recent of2 resultswithin the time period is included. LDH 203 120 - 246 U/L [facility] 04/03/2025 3:00 AM EDT 04/04/2025 2:56 PM EDT us Driss Alatorre MD LAB BLOOD ORDERABLES Final Resul t Performing Organization Address [facility] de Phone Number [facility] [address] [place] [address] * (ABNORMAL) Glucose, random (04/03/2025 3:00 AM EDT) Only the most recent of2 resultswithin the time period is included. Glucose 249(H) 70 - 99 mg/dL [facility] Comment: ADA guidelines outline the following fasting glucose ranges: Normal: <100 Prediabetes: 100-125 Diabetes: >125 04/03/2025 3:00 AM EDT 04/04/2025 2:56 PM EDT us Driss Alatorre MD LAB BLOOD ORDERABLES Final Resul t Performing Organization Address [facility] de Phone Number [facility] [address] [place] [address] * (ABNORMAL) Ferritin (04/03/2025 3:00 AM EDT) Only the most recent of2 resultswithin the time period is included. Ferritin 1,246(H) 10 - 291 ng/mL [facility] 04/03/2025 3:00 AM EDT 04/04/2025 2:56 PM EDT us Driss Alatorre MD LAB BLOOD ORDERABLES Final Resul t Performing Organization Address [facility] de Phone Number [facility] [address] [place] [address] * (ABNORMAL) Creatinine, serum (04/03/2025 3:00 AM EDT) Only the most recent of2 resultswithin the time period is included. Creatinine 6.92(H) 0.55 - 1.02 mg/dL [facility] 04/03/2025 3:00 AM EDT 04/04/2025 2:56 PM EDT us Driss Alatorre MD LAB BLOOD ORDERABLES Final Resul t Performing Organization Address [facility] de Phone Number [facility] [address] [place] [address] * (ABNORMAL) Bilirubin, total (04/03/2025 3:00 AM EDT) Only the most recent of2 resultswithin the time period is included. Total Bilirubin <0.2(L) 0.3 - 1.2 mg/dL [facility] 04/03/2025 3:00 AM EDT 04/04/2025 2:56 PM EDT us Driss Alatorre MD LAB BLOOD ORDERABLES Final Resul t Performing Organization Address [facility] de Phone Number [facility] [address] [place] [address] * (ABNORMAL) Electrolyte panel (04/03/2025 3:00 AM EDT) Only the most recent of3 resultswithin the time period is included. Sodium 139 136 - 145 mEq/L [facility] Potassium 3.9 3.4 - 5.0 mEq/L [facility] Chloride 96(L) 98 - 107 mEq/L [facility] Bicarbonate (CO2) 27 21 - 31 mEq/L [facility] Anion Gap 16(H) 3 - 14 mEq/L [facility] 04/03/2025 3:00 AM EDT 04/04/2025 2:56 PM EDT us Driss Alatorre MD LAB BLOOD ORDERABLES Final Resul t Performing Organization Address [facility] de Phone Number [facility] [address] [place] [address] * Collection Date (03/22/2025 3:00 AM EDT) Collection Date See Comment [facility] Comment: Patient sample received may exceed specimen stability, based on the collection date electronically provided. When reviewing patient results, verify collection information and consider specimen stability before acting on any critical or panic results. 03/22/2025 3:00 AM EDT us Driss Alatorre MD LAB [id number] ICITED RESULTS Final Result Performing Organization Address [facility] de Phone Number [facility] [address] [place] [address] * (ABNORMAL) Hemoglobin and hematocrit (03/22/2025 3:00 AM EDT) Only the most recent of3 resultswithin the time period is included. Hgb 9.3(L) 11.2 - 15.7 g/dL [facility] Hematocrit 27.6(L) 34.1 - 44.9 % [facility] Hemoglobin x 3 27.9(L) 33.6 - 47.1 g/dL [facility] 03/22/2025 3:00 AM EDT 03/25/2025 12:58 PM EDT us Driss Alatorre MD LAB BLOOD ORDERABLES Final Resul t Performing Organization Address [facility] de Phone Number [facility] [address] [place] [address] * Calcium, Adjusted w Albumin (03/18/2025 3:00 AM EDT) Calcium 9.9 8.6 - 10.3 mg/dL [facility] Albumin 4.2 3.6 - 5.4 g/dL [facility] Calcium, Adjusted Total 9.9 8.6 - 10.3 mg/dL [facility] 03/18/2025 3:0 0 AM EDT 03/19/2025 1:44 PM EDT us Driss Alatorre MD LAB BLOOD ORDERABLES Final Resul t Performing Organization Address [facility] de Phone Number [facility] [address] [place] [address] * Phosphorus (03/18/2025 3:00 AM EDT) Only the most recent of2 resultswithin the time period is included. Phosphorus, Serum 3.5 2.5 - 5.0 mg/dL [facility] 03/18/2025 3:00 AM EDT 03/19/2025 1:44 PM EDT us Driss Alatorre MD LAB BLOOD ORDERABLES Final Resul t Performing Organization Address [facility] de Phone Number [facility] [address] [place] [address] * (ABNORMAL) Hemoglobin (03/13/2025 3:00 AM EDT) Only the most recent of2 resultswithin the time period is included. Hgb 10.0(L) 11.2 - 15.7 g/dL [facility] Hemoglobin x 3 30.0(L) 33.6 - 47.1 g/dL [facility] 03/13/2025 3:00 AM EDT 03/14/2025 2:33 PM EDT us Driss Alatorre MD LAB BLOOD ORDERABLES Final Resul t Performing Organization Address [facility] de Phone Number [facility] [address] [place] [address] * Confirmation Test HCV (02/06/2025 3:00 AM EDT) Pathologist [facility] Hep C Ab Confirmation Not needed [facility] 02/06/2025 3:00 AM EDT 02/07/2025 12:01 PM EDT us Driss Alatorre MD LAB BLOOD ORDERABLES Final Resul t Performing Organization Address [facility] de Phone Number [facility] [address] [place] [address] * HEPATITIS C ABS W/REFLEX RNA DETECTR (02/06/2025 3:00 AM EDT) Hep C Virus Ab Non-Reacti ve Non-Reacti ve [facility] 02/06/2025 3:00 AM EDT 02/07/2025 12:37 PM EDT us Driss Alatorre MD LAB [id number] ICITED RESULTS Final Result Performing Organization Address [facility] de Phone Number [facility] [address] [place] [address] * Hepatitis B Surface Antibody (02/06/2025 3:00 AM EDT) Hep B Surface Antibody 24 mIU/mL [facility] Comment: Interpretation: <10: No Immunity >=10: Probable Immunity 02/06/2025 3:00 AM EDT 02/07/2025 12:37 PM EDT Driss Alatorre MD LAB BLOOD ORDERABLES Final Resul t Performing Organization Address [facility] de Phone Number [facility] [address] [place] [address] * (ABNORMAL) Hemoglobin A1c (02/06/2025 3:00 AM EDT) Pathologist [facility] Hemoglobin A1C 6.8(H) <5.7 % [facility] Comment: Methodology: Enzymatic Normal: <5.7% Prediabetes: 5.7-6.4% Diabetes: >6.4% Diabetic Glucose Control Evaluation: Therapeutic action suggested at >8.0% ADA recommends a glycemic goal of <7.0% 02/06/2025 3:00 AM EDT 02/07/2025 12:01 PM EDT Driss Alatorre MD LAB BLOOD ORDERABLES Final Resul t Performing Organization Address [facility] de Phone Number [facility] [address] [place] [address] * (ABNORMAL) Lipid panel (02/06/2025 3:00 AM [...] 3:00 AM EDT 02/07/2025 12:37 PM EDT Driss Alatorre MD LAB BLOOD ORDERABLES Final Resul t [facility] [address] [place] [address] from Last 3 Months Insurance * Guarantor: Kavitha Padilla Account Type Relation to Patient Date of Phone Billing Address Personal/Family Self 1955 [address] MCR ([id number]) [place] [phone] MCR ([id number]) Care Teams Fuel Cell Technician Relationship Specialty Start Date End Date Patricia Ingram MD [address] [place] [id number] PCP - General 08/10/20
[2025-04-08 07:34] LABS: B Type Natriuretic Peptide 1622 pg/mL (<100)
[2025-04-08 07:37] LABS: Alanine Aminotransferase < 6 U/L (0-31); Albumin Level 4.0 g/dL (3.5-5.0); Alkaline Phosphatase 143 U/L (39-117); Anion Gap 19 (12-20); Aspartate Amino Transferase 16 U/L (5-31); Blood Urea Nitrogen 43 mg/dL (9-16); Calcium 9.6 mg/dL (8.4-10.2); Carbon Dioxide 27 mmol/L (22-29); Chloride 100 mmol/L (96-108); Lipase 128 U/L (8-78); Magnesium 2.5 mg/dL (1.6-2.6); Potassium 4.5 mmol/L (3.3-5.1); Sodium 141 mmol/L (135-145); Total Protein 6.8 g/dL (6.5-8.0)
[2025-04-08 07:38] LABS: Troponin-I High Sensitivity 19.1 ng/L (<3.5-17.0)
[2025-04-08 07:42] LABS: Creatinine Clr Calc Pharmacy 5.2; Estimated Glomerular Filt Rate 5
[2025-04-08] MEDS: Furosemide 100 MG/10 ML VIAL 60 MG IVPUSH (09:26)
[2025-04-08 09:48] LABS: Troponin-I High Sensitivity 18.0 ng/L (<3.5-17.0)
--- NOTE | 2025-04-08 10:40 | PM.IMHP ---
History of Present Illness Date of Service: 04/08/25 Attending physician on admission: Gladys Mehta Chief Complaint: esrd -fluid overload HPI:70 yo female with PMH of ESRD on HD T S last went Monday, anemia, CAD s/p CABG x 3V in 2018 recent cardiac cath in Jul 2024 s/p LUISANA to left main and prox circ she reports she is on aspirin and brilinta, aortic stenosis, GI bleed, gastritis, GERD, panic and anxiety disorder, asthma, DM2, SHELIA, HLD, here with c/o waking from sleep with central chest tightness and feel short of breath,also did not take any BP meds today as well as need hemodialysis today. Patient was given aspirin by EMS.She states the pain feels pressure like and it hurts to move or touch or chest she denies any known trauma. Patient says she received morphine, nitro, Coreg, Imdur,lasix iv still makes urine -her blood pressure improving from 200/100 to 148/58 range and her chest tightness also improving significant with the shortness of breath also improving She also notes that she has not had a resp infection or fever. No recent travel or procedures. No change in baseline cough. She is not really sure what medications she is on but states she takes a lot of meds at night. Lab imaging EKG reviewed: H&H around 8.8 range BMP fine except creatinine is 7.34, BUN 43 Troponin chronically elevated flat in range of 18-19 BNP 1622 cxr:Continued findings of volume overload. 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 End stage chronic kidney disease Edema Atherosclerotic cardiovascular disease SHELIA (obstructive sleep apnea) Hypercalcemia Asthma DJD (degenerative joint disease) Chronic kidney disease Other and unspecified hyperlipidemia Type 2 diabetes mellitus with unspecified complications Essential hypertension Family History Father Cardiovascular disease Hypertension Mother Cardiovascular disease Hypertension Surgical History History of hemorrhoidectomy (07/03/23) H/O colonoscopy Hemorrhoids H/O angioplasty History of tubal ligation History of coronary artery bypass graft (~2018) Social History Household Members: Children Household Members Other:: Son Housing: Apartment Housing Other:: senior apartment Are you a primary home care manager rn to a significant other at home: No Do you presently have visiting nurse or other home services: No Alcohol intake: never Patient Tobacco Use Status: Never used Tobacco Smoked in Last 30 Days: No e-Cigarette/Vaping Use: Never Used Second Hand Smoke Exposure: No Use of substances other than those prescribed or required for medical reasons: No Have you been hit, kicked, punched, or otherwise hurt by someone within the past year? If so, by whom?: No Do you feel safe in your current relationship?: No Current Relationship Is there a partner from a previous relationship who is making you feel unsafe now?: No Are you made to feel afraid or neglected: No Advance Directives: Yes Advance Directives on File: Yes Advance Directives Date on File: 12/03/20 Do you have a plan to hurt others: No Plan Recently lost weight without trying: Yes How much weight loss: 14-23 pounds Eating poorly because of decreased appetite: Yes Nutrition screen score: 5 Nutrition Risks: Dental problems Patient : No : No Poor oral hygiene: No service: No 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al status: disabled 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 Meds Allergies Allergy/AdvReac Type Severity Reaction Status Date / Time No Known Allergies Allergy Verified 04/08/25 06:49 Active Medications: Current Medications Acetaminophen (Acetaminophen 325 Mg Tablet) 650 mg PO Q6H PRN PRN Reason: Pain, Mild 1-3,fever,headache Calcium Carbonate (Calcium Carbonate 750 Mg Tab.Chew) 750 mg PO Q4H PRN PRN Reason: Heartburn Magnesium Hydroxide (Milk Of Magnesia 30 Ml Oral.Susp) 30 ml PO DAILY PRN PRN Reason: Constipation Melatonin (Melatonin 3 Mg Tablet) 6 mg PO BEDTIME PRN PRN Reason: Insomnia Sodium Chloride (0.9 % Sodium Chloride Flush 3 Ml Syringe) 3 ml [facility]USH [facility] Medications ?Medication ?Instructions ?Recorded ?Confirmed ?Last Taken ?Type sertraline 100 mg tablet 150 mg PO DAILY 1104/08/25 04/07/25 History ascorbic acid (vitamin C) 500 mg 1 tab PO DAILY 12/03/20 04/08/25 04/07/25 History tablet (Vitamin C) montelukast 10 mg tablet 10 mg PO BEDTIME 12/03/20 04/08/25 04/07/25 History acetaminophen 500 mg tablet 1,000 mg PO Q8H PRN Pain 02/08/23 04/08/25 Unknown History budesonide-formoterol HFA 80 2 puff inhalation BID 02/08/23 04/08/25 04/07/25 History mcg-4.5 mcg/actuation aerosol inhaler (Symbicort) cholecalciferol (vitamin D3) 25 25 mcg PO DAILY 01/01/24 04/08/25 04/07/25 History mcg (1,000 unit) tablet docusate sodium 100 mg capsule 100 mg PO BID PRN Constipation 08/13/24 04/08/25 Unknown History melatonin 5 mg tablet 5 mg PO BEDTIME PRN Insomnia 08/13/24 04/08/25 Unknown History ticagrelor 90 mg tablet (Brilinta) 90 mg PO BID 08/13/24 04/08/25 04/07/25 History insulin aspart U-100 100 unit/mL 3 unit subcut DAILY@1200 08/26/24 04/08/25 04/07/25 History (3 mL) subcutaneous pen (Novolog FlexPen U-100 Insulin aspart) insulin aspart U-100 100 unit/mL See Protocol subcut BIDAC@0730,1630 08/26/24 04/08/25 04/07/25 History (3 mL) subcutaneous pen (Novolog FlexPen U-100 Insulin aspart) isosorbide mononitrate 30 mg 30 mg PO DAILY 10/02/24 04/08/25 04/07/25 History tablet,extended release 24 hr pantoprazole 40 mg tablet,delayed 40 mg PO DAILY@0630 10/10/24 04/08/25 04/07/25 History release carvedilol 3.125 mg tablet 3.125 mg PO BID 04/08/25 04/08/25 04/07/25 History ezetimibe 10 mg tablet 10 mg PO DAILY 04/08/25 04/08/25 04/07/25 History Physical Exam Vital Signs and Narrative: Vital Signs: Last Vital Signs Temp 97.8 F 04/08/25 06:48 Pulse 67 04/08/25 10:00 Resp 16 04/08/25 09:48 BP 148/58 H 04/08/25 10:00 Pulse Ox 95 04/08/25 09:48 O2 Del Method Room Air 04/08/25 09:48 BMI result Body Mass Index 23.2 Appearance: Alert.? Oriented X3.?sob improivng ,talking in full sentences.. cvs: rrr, [id number] , no murmur res: air netry improving ,diminshed at bases , few rales abd: no rebound or guarding ,nt, bs present. ext pulses present , no cyanosis neuro: axo3 , nonfocal. Results Labs 04/08/25 07:10 04/08/25 07:10 Labs: Laboratory Results - last 24 hr 04/08/25 07:10 MCV 93.0 MCH 30.9 MCHC 33.2 RDW 14.9 Plt Count 184 MPV 10.0 Immature Gran % (Auto) 0.4 Neut % (Auto) 69.6 Lymph % (Auto) 21.7 King % (Auto) 6.7 Eos % (Auto) 1.2 Baso % (Auto) 0.4 Lymph # (Auto) 1.1 L King # (Auto) 0.3 Eos # (Auto) 0.1 Baso # (Auto) 0.0 Abs Immat Gran (auto) 0.02 Absolute Neuts (auto) 3.6 Absolute Nucleated RBC 0.000 Nucleated RBC % (auto) 0.0 Anion Gap 19 Estim Creat Clear Calc 5.2 Estimated GFR 5 Random Glucose 89 Calcium 9.6 Magnesium 2.5 Total Bilirubin 0.4 Direct Bilirubin 0.2 AST 16 ALT < 6 Alkaline Phosphatase 143 H B-Natriuretic Peptide 1622 H Total Protein 6.8 Albumin 4.0 Lipase 128 H Assessment and Plan (1) Hypertension, uncontrolled: Status: Acute (2) Chest pain: Qualifiers: Chest pain type: unspecified Qualified Code(s): R07.9 - Chest pain, unspecified Status: Acute Plan 70 yo female with PMH of ESRD on HD T last went Monday, anemia, CAD s/p CABG x 3V in 2017 recent cardiac cath in Jul 2024 s/p LUISANA to left main and prox circ she reports she is on aspirin and brilinta, aortic stenosis, GI bleed, gastritis, GERD, panic and anxiety disorder, asthma, DM2, SHELIA, HLD, here with c/o waking from sleep with central chest tightness and feel short of breath esrd with fluid overload Patient will need dialysis today Monitor BMP closely Chest tightness/shortness of breath: In the setting of ESRD/elevated blood pressure Monitor on tele EKG seems similar, troponin flat chronically elevated Seems to be improving significantly with dialysis and blood pressure management If any new symptoms consider Cardiology evaluation. Uncontrolled hypotension: Patient is going for dialysis Will start her home blood pressure medications. DM2 : Had hypoglycemia last admission Hold Lantus for now-reintroduce as needed. Fingerstick with sliding scale coverage. SHELIA intolerant of CPAP GERD PPI mild persistent asthma not in acute exac: continue Breo, montelukast, prn albuterol depression continue sertraline Ongoing need for stay: ESRD with fluid overload uncontrolled hypotension-Nephrology evaluation, renal function electrolyte monitoring, close blood pressure monitoring as well as monitoring for chest pain. Above management discussed with the patient in detail length with the help of lead sales consultant, patient understand and in agreement with the above plan, time spent 70 minute, patient is full code. Quality Stroke Does the patient have a stroke diagnosis?: No VTE Prior VTE?: No VTE Risk Level:: Medical - moderate - high VTE Device Contraindication: N/A - Device Ordered VTE Drug Contraindication: N/A - Med Ordered
[2025-04-08] MEDS: 0.9 % Sodium Chloride Flush 3 ML SYRINGE IVFLUSH ×2 (17:48→20:44)
[2025-04-08 18:01] LABS: Glucose, Whole Blood 70 mg/dL (60-115)
--- NOTE | 2025-04-08 18:10 | PHA.MEDREC ---
Addendum entered by Laura Price RPh 04/08/25 19:04: Reviewed by pharmacist Original Note: Pharmacy Consult ? Medication Reconciliation Pharmacy has completed the medication reconciliation. Spoke to patient son at bedside to confirm med list. Son had a medbox list of patients medications. son confirmed Lantus 5 units at bedtime and Novolog is per sliding scale TID. Utilized claims and medbox list to confirm med list. Patient last had her medications last night.
[2025-04-08 20:50] LABS: Glucose, Whole Blood 164 mg/dL (60-115)
[2025-04-09] VITALS (9 sets, daily range): BP systolic 110–185; BP diastolic 62–82; PULSE 59–91; RESP 16–18; TEMP 36.2–36.7; O2SAT 93–98
[2025-04-09 02:35] LABS: Troponin-I High Sensitivity 21.6 ng/L (<3.5-17.0)
--- NOTE | 2025-04-09 02:56 | ECG_ITS ---
Test Reason : CP Blood Pressure : */* mmHG Vent. Rate : 61 BPM Atrial Rate : 61 BPM P-R Int : 158 ms QRS Dur : 94 ms QT Int : 448 ms P-R-T Axes : 60 20 41 degrees QTcB Int : 450 ms Normal sinus rhythm Normal ECG When compared with ECG of 08-Apr-2025 06:51, Incomplete right bundle branch block is no longer Present Criteria for Septal infarct are no longer Present Referred By: Gladys Mehta Electronically Signed By: RUSTY DUVALL MD
--- NOTE | 2025-04-09 06:06 | PC.NURSE ---
Around 3:00AM overnight provider notified patients bp is 195/74 manually, no new orders placed. 4:15AM overnight provider notified a second time manual bp now 185/75 message read by provider, no new orders placed. Patient resting
[2025-04-09 07:23] LABS: Hematocrit 28.5 % (37.0-47.0); Hemoglobin 9.2 g/dl (12.0-16.0); Mean Corpuscular HGB Conc 32.3 g/dl (31.0-35.0); Mean Corpuscular Hemoglobin 30.4 pg (27.0-33.0); Mean Corpuscular Volume 94.1 fL (80.0-98.0); NRBC Abs Auto 0.000 X10*3/uL (0.0-0.012); NRBC Pct Auto 0.0 /100WBC (0.0-0.2); Platelet Count 195 X10*3/uL (160-400); Red Blood Count 3.03 X10*6/uL (4.20-5.50); White Blood Count 5.1 X10*3/uL (4.8-10.8)
[2025-04-09 07:46] LABS: Glucose, Whole Blood 87 mg/dL (60-115)
[2025-04-09 07:48] LABS: Anion Gap 15 (12-20); Blood Urea Nitrogen 19 mg/dL (9-16); Calcium 9.7 mg/dL (8.4-10.2); Carbon Dioxide 29 mmol/L (22-29); Chloride 98 mmol/L (96-108); Creatinine Clr Calc Pharmacy 8.5; Estimated Glomerular Filt Rate 10; Potassium 4.4 mmol/L (3.3-5.1); Sodium 138 mmol/L (135-145)
[2025-04-09] MEDS: Fluticasone/Vilanterol 100/25 BLST.W.DEV 1 PUFF INHALE (08:02)
[2025-04-09] MEDS: 0.9 % Sodium Chloride Flush 3 ML SYRINGE IVFLUSH ×3 (09:04→22:16)
--- NOTE | 2025-04-09 11:13 | MHC.CM.PN ---
IMM 04/09/25, Pt. 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 She uses a walker for DME, family to transport home at DC, DCP: home, resume current services. CM to follow for DC needs.
[2025-04-09 11:28] LABS: Glucose, Whole Blood 307 mg/dL (60-115)
[2025-04-09] MEDS: Milk of Magnesia 30 ML ORAL.SUSP PO (11:57)
--- NOTE | 2025-04-09 13:14 | P.PNIM_ITS ---
Subjective Subjective Date of Service: 04/09/25 Interval History: chest pain Physical Exam 2 Exam: Exam: General: AO X 3, no acute distress Resp: CTA bilateral, no accessory muscles used CVS: S1,S2,RRR GI: soft, non tender, non distended Neuro: motor grossly intact, alert Psych: appropriate affect, appropriate insight Vital Signs: Vital Signs: Last Vital Signs Temp 97.2 F 04/09/25 11:05 Pulse 68 04/09/25 11:05 Resp 18 04/09/25 11:05 BP 110/62 04/09/25 11:05 Pulse Ox 95 04/09/25 11:05 O2 Del Method Room Air 04/09/25 11:05 BMI result Body Mass Index 20.7 Objective Data Active Medications Acetaminophen (Acetaminophen 325 Mg Tablet) 650 mg PO Q6H PRN PRN Reason: Pain, Mild 1-3,fever,headache Last Admin: 04/09/25 11:57 Dose: 650 mg Documented By: MIGUELANGEL Amlodipine Besylate (Amlodipine Besylate 10 Mg Tablet) 10 mg PO DAILY [facility]; Protocol Last Admin: 04/09/25 09:01 Dose: 10 mg Documented By: KELLI Ascorbic Acid (Ascorbic Acid 500 Mg Tablet) 500 mg PO DAILY [facility] Last Admin: 04/09/25 09:02 Dose: 500 mg Documented By: KELLI Atorvastatin Calcium (Atorvastatin Calcium 80 Mg Tablet) 80 mg PO BEDTIME [facility] Last Admin: 04/08/25 20:41 Dose: 80 mg Documented By: DANIELA Calcium Carbonate (Calcium Carbonate 750 Mg Tab.Chew) 750 mg PO Q4H PRN PRN Reason: Heartburn Carvedilol (Carvedilol 3.125 Mg Tablet) 3.125 mg PO BID [facility]; Protocol Last Admin: 04/09/25 08:57 Dose: 3.125 mg Documented By: KELLI Dextrose (Dextrose 50 % 25 Gm/50 Ml Syringe) 25 gm IVPUSH Q15M PRN; Protocol PRN Reason: per Hypoglycemia Standing Ord. Docusate Sodium (Docusate Sodium 100 Mg Capsule) 100 mg PO BID PRN PRN Reason: Constipation Ezetimibe (Ezetimibe 10 Mg Tablet) 10 mg PO DAILY [facility] Last Admin: 04/09/25 09:01 Dose: 10 mg Documented By: HO.SANTOL Fluticasone/Vilanterol (Fluticasone/Vilanterol 100/25 Blst.W.Dev) 1 puff INHALE RDAILY [facility] Last Admin: 04/09/25 08:02 Dose: 1 puff Documented By: BREA Furosemide (Furosemide 40 Mg Tablet) 80 mg PO BIDWM [facility]; Protocol Last Admin: 04/09/25 08:57 Dose: 80 mg Documented By: KELLI Glucose (Glucose Gel 15 Gm Gel..Gram.) 15 gm PO Q15M PRN; Protocol PRN Reason: per Hypoglycemia Standing Ord. Hydralazine HCl (Hydralazine Hcl 25 Mg Tablet) 25 mg PO TID [facility]; Protocol Last Admin: 04/09/25 09:01 Dose: 25 mg Documented By: KELLI Insulin Human Lispro (Insulin Lispro 100 Unit/Ml 3 Ml Vial) 0 unit SUBCUT QIDACHS [facility]; Protocol Last Admin: 04/09/25 11:57 Dose: 8 unit Documented By: MIGUELANGEL Isosorbide Mononitrate (Isosorbide Mononitrate 30 Mg Tab.Er.24h) 30 mg PO DAILY [facility]; Protocol Last Admin: 04/09/25 09:02 Dose: 30 mg Documented By: KELLI Magnesium Hydroxide (Milk Of Magnesia 30 Ml Oral.Susp) 30 ml PO DAILY PRN PRN Reason: Constipation Last Admin: 04/09/25 11:57 Dose: 30 ml Documented By: MIGUELANGEL Melatonin (Melatonin 3 Mg Tablet) 6 mg PO BEDTIME PRN PRN Reason: Insomnia Montelukast Sodium (Montelukast Sodium 10 Mg Tablet) 10 mg PO BEDTIME [facility] Last Admin: 04/08/25 20:43 Dose: 10 mg Documented By: DANIELA Omeprazole (Omeprazole 20 Mg Capsule.Dr) 20 mg PO DAILY@0630 [facility] Last Admin: 04/09/25 05:37 Dose: 20 mg Documented By: DANIELA Sertraline HCl (Sertraline Hcl 50 Mg Tablet) 150 mg PO DAILY [facility] Last Admin: 04/09/25 08:54 Dose: 150 mg Documented By: KELLI Sodium Chloride (0.9 % Sodium Chloride Flush 3 Ml Syringe) 3 ml IVFLUSH QSHIFT [facility] Last Admin: 04/09/25 09:04 Dose: 3 ml Documented By: KELLI Ticagrelor (Ticagrelor 90 Mg Tablet) 90 mg PO BID [facility] Last Admin: 04/09/25 09:01 Dose: 90 mg Documented By: KELLI Vitamin D (Cholecalciferol (Vitamin D3) 25 Mcg Tablet) 25 mcg PO DAILY [facility] Last Admin: 04/09/25 09:02 Dose: 25 mcg Documented By: KELLI Labs 04/09/25 07:03 04/09/25 07:03 Labs: Laboratory Results - last 24 hr 04/08/25 04/08/25 04/09/25 17:57 20:41 07:03 MCV 94.1 MCH 30.4 MCHC 32.3 RDW 14.7 Plt Count 195 MPV 10.3 Absolute Nucleated RBC 0.000 Nucleated RBC % (auto) 0.0 Anion Gap 15 Estim Creat Clear Calc 8.5 Estimated GFR 10 POC Glucose 70 164 H Random Glucose 80 Calcium 9.7 04/09/25 04/09/25 07:28 11:08 MCV MCH MCHC RDW Plt Count MPV Absolute Nucleated RBC Nucleated RBC % (auto) Anion Gap Estim Creat Clear Calc Estimated GFR POC Glucose 87 307 H Random Glucose Calcium Assessment and Plan (1) Chest pain: Status: Acute Plan 70F PMH ESRD (RTANE), CAD s/p CABG, stent jul 2024, , dm, gerd, shelia, hld, presented with chest pain. End-stage renal disease with fluid overload Continued hemodialysis Chest pain due to hypertensive emergency Improved with BP control, continue amlodipine, Imdur, hydralazine, carvedilol SHELIA CPAP at night Diabetes Insulin sliding scale CAD Brilinta, statin DVT prophylaxis-heparin subQ Full code reason for continued hospitalization:montior bp Quality Stroke Does the patient have a stroke diagnosis?: No VTE Prior VTE?: No VTE Risk Level:: Medical - moderate - high VTE Device Contraindication: N/A - Device Ordered VTE Drug Contraindication: N/A - Med Ordered
[2025-04-09 15:49] LABS: Glucose, Whole Blood 104 mg/dL (60-115)
[2025-04-09 20:53] LABS: Glucose, Whole Blood 166 mg/dL (60-115)
[2025-04-10] VITALS: BP 187/77; PULSE 66; RESP 20; TEMP 36.6; O2SAT 100
[2025-04-10 04:00] VITALS: BP 149/65; PULSE 63; RESP 19; TEMP 36.8; O2SAT 98
[2025-04-10 06:32] LABS: Hematocrit 26.4 % (37.0-47.0); Hemoglobin 8.9 g/dl (12.0-16.0); Mean Corpuscular HGB Conc 33.7 g/dl (31.0-35.0); Mean Corpuscular Hemoglobin 30.7 pg (27.0-33.0); Mean Corpuscular Volume 91.0 fL (80.0-98.0); NRBC Abs Auto 0.000 X10*3/uL (0.0-0.012); NRBC Pct Auto 0.0 /100WBC (0.0-0.2); Platelet Count 182 X10*3/uL (160-400); Red Blood Count 2.90 X10*6/uL (4.20-5.50); White Blood Count 5.3 X10*3/uL (4.8-10.8)
[2025-04-10 06:57] LABS: Anion Gap 18 (12-20); Blood Urea Nitrogen 30 mg/dL (9-16); Calcium 9.5 mg/dL (8.4-10.2); Carbon Dioxide 26 mmol/L (22-29); Chloride 95 mmol/L (96-108); Creatinine Clr Calc Pharmacy 6.4; Estimated Glomerular Filt Rate 7; Potassium 4.8 mmol/L (3.3-5.1); Sodium 134 mmol/L (135-145)
[2025-04-10 07:10] VITALS: BP 140/82; PULSE 65; RESP 18; TEMP 36.2; O2SAT 96
[2025-04-10 07:15] LABS: Glucose, Whole Blood 133 mg/dL (60-115)
[2025-04-10] MEDS: Fluticasone/Vilanterol 100/25 BLST.W.DEV 1 PUFF INHALE (08:11)
[2025-04-10 11:10] VITALS: BP 138/82; PULSE 60; RESP 18; TEMP 36.6; O2SAT 96
--- NOTE | 2025-04-10 11:10 | P.DS_ITS ---
DS: Providers Provider Date of Service: 04/10/25 Date of admission: 04/08/25 10:25 Date of discharge: 04/10/25 Primary care physician: Patricia Ingram MD Consults: 04/08/25 10:35 Consult to Nephrology Stat Consulting Provider: Yared Powell Reason for consultation: dyspnea, HTN, volume overload Has provider been notified: Yes 04/08/25 10:39 Consult to Nephrology Routine Consulting Provider: Yared Powell Reason for consultation: esrd on hd DS: Diagnosis Discharge Diagnosis (1) Chest pain: Status: Acute DS: Summary Hospital Course Hospital Course: from initial hpi: 70 yo female with PMH of ESRD on HD T S last went Monday, anemia, CAD s/p CABG x 3V in 2018 recent cardiac cath in Jul 2024 s/p LUISANA to left main and prox circ she reports she is on aspirin and brilinta, aortic stenosis, GI bleed, gastritis, GERD, panic and anxiety disorder, asthma, DM2, SHELIA, HLD, here with c/o waking from sleep with central chest tightness and feel short of breath,also did not take any BP meds today as well as need hemodialysis today. Patient was given aspirin by EMS.She states the pain feels pressure like and it hurts to move or touch or chest she denies any known trauma. Patient says she received morphine, nitro, Coreg, Imdur,lasix iv still makes urine -her blood pressure improving from 200/100 to 148/58 range and her chest tightness also improving significant with the shortness of breath also improving She also notes that she has not had a resp infection or fever. No recent travel or procedures. No change in baseline cough. She is not really sure what med ications she is on but states she takes a lot of meds at night. Lab imaging EKG reviewed: H&H around 8.8 range BMP fine except creatinine is 7.34, BUN 43 Troponin chronically elevated flat in range of 18-19 BNP 1622 cxr:Continued findings of volume overload. hospital course: Patient was admitted for end-stage renal disease with fluid overload. Was given hemodialysis and symptoms resolved. For chest pain due to hypertensive emergency was restarted on amlodipine, Imdur, hydralazine, carvedilol with better blood pressure control and symptom resolution. Had no signs of ACS. For SHELIA was continued on CPAP at night. For diabetes was continued on insulin sliding scale. For coronary artery disease was continued on Brilinta and statin. Patient is feeling better and will be discharged home. Time Attestation Discharge Coordination Time (in mins): 33 Quality: Safe Use of Opioids Does Pt have an Active Cancer Diagnosis on the Problem List?: No Quality: Stroke Does the patient have a stroke diagnosis?: No Physical Exam Exam: Exam: General: AO X 3, no acute distress Resp: CTA bilateral, no accessory muscles used CVS: S1,S2,RRR GI: soft, non tender, non distended Neuro: motor grossly intact, alert Psych: appropriate affect, appropriate insight Vital Signs: Vital Signs: Last Vital Signs Temp 97.1 F 04/10/25 07:10 Pulse 65 04/10/25 07:10 Resp 18 04/10/25 07:10 BP 140/82 H 04/10/25 07:10 Pulse Ox 96 04/10/25 07:10 O2 Del Method Room Air 04/10/25 07:10 BMI result Body Mass Index 20.7 DS: Data Data Completed and Pending Completed studies during hospitalization [Text1]: Procedures Excision of Stomach, Pylorus, Via Natural or Artificial Opening Endoscopic, Diagnostic (08/26/24) Insertion of Infusion Device into Superior Vena Cava, Percutaneous Approach (07/11/21) Insertion of Tunneled Vascular Access Device into Chest Subcutaneous Tissue and Fascia, Percutaneous Approach (07/11/21) Inspection of Lower Intestinal Tract, Via Natural or Artificial Opening Endoscopic (02/09/23) Inspection of Upper Intestinal Tract, Via Natural or Artificial Opening Endoscopic (02/09/23) Performance of Urinary Filtration, Intermittent, Less than 6 Hours Per Day (03/03/25) Transfusion of Nonautologous Red Blood Cells into Peripheral Vein, Percutaneous Approach (03/03/25) Labs on day of discharge: Laboratory Results - last 24 hr 04/09/25 04/09/25 04/09/25 11:08 15:32 20:48 WBC RBC Hgb Hct MCV MCH MCHC RDW Plt Count MPV Absolute Nucleated RBC Nucleated RBC % (auto) Sodium Potassium Chloride Carbon Dioxide Anion Gap BUN Creatinine Estim Creat Clear Calc Estimated GFR POC Glucose 307 H 104 166 H Random Glucose Calcium 04/10/25 04/10/25 06:07 07:12 WBC 5.3 RBC 2.90 L Hgb 8.9 L Hct 26.4 L MCV 91.0 MCH 30.7 MCHC 33.7 RDW 14.2 Plt Count 182 MPV 10.4 Absolute Nucleated RBC 0.000 Nucleated RBC % (auto) 0.0 Sodium 134 L Potassium 4.8 Chloride 95 L Carbon Dioxide 26 Anion Gap 18 BUN 30 H Creatinine 5.97 H* Estim Creat Clear Calc 6.4 Estimated GFR 7 POC Glucose 133 H Random Glucose 129 H Calcium 9.5 Discharge Plan Discharge Anticipated Discharge Date/Time: 04/10/25 11:08 Patient Disposition: Home, Self-Care Discharge Diagnosis: fluid overload Referrals: Patricia Ingram MD [Primary Care Provider, Internal Medicine] - 1 Week Discharge Medications: Continued amlodipine 10 mg tablet 10 mg PO DAILY 90 Days Qty: 90 3RF atorvastatin 80 mg tablet 80 mg PO BEDTIME Qty: 90 3RF hydralazine 25 mg tablet 25 mg PO TID Qty: 90 5RF ascorbic acid (vitamin C) [Vitamin C] 500 mg tablet 1 tab PO DAILY montelukast 10 mg tablet 10 mg PO BEDTIME budesonide-formoterol [Symbicort] 80-4.5 mcg/actuation HFA aerosol inhaler 2 puff inhalation BID acetaminophen 500 mg tablet 1,000 mg PO Q8H PRN (Reason: Pain) insulin aspart U-100 [Novolog FlexPen U-100 Insulin] 100 unit/mL (3 mL) in sulin pen See Protocol subcut BIDAC@5024,1137 Protocol: Insulin Correction Scale Less than or equal to 110 ---- Give (units): 0 111 to 150 Give (units): 3 151 to 200 Give (units): 5 201 to 250 Give (units): 7 251 to 300 Give (units): 9 301 to 350 Give (units): 11 Greater than 350 Give (units): 13 Call MD if Blood Glucose > : 399 insulin aspart U-100 [Novolog FlexPen U-100 Insulin] 100 unit/mL (3 mL) insulin pen 3 unit subcut DAILY@1200 docusate sodium 100 mg Capsule 100 mg PO BID PRN (Reason: Constipation) melatonin 5 mg Tablet 5 mg PO BEDTIME PRN (Reason: Insomnia) ticagrelor [Brilinta] 90 mg Tablet 90 mg PO BID pantoprazole 40 mg tablet,delayed release (DR/EC) 40 mg PO DAILY@0630 insulin glargine [Lantus U-100 Insulin] 100 unit/mL Solution 5 unit subcut BEDTIME Qty: 10 0RF carvedilol 3.125 mg tablet 3.125 mg PO BID ezetimibe 10 mg tablet 10 mg PO DAILY sertraline 100 mg tablet 150 mg PO DAILY furosemide 40 mg tablet 80 mg PO BID Qty: 240 2RF isosorbide mononitrate 30 mg tablet extended release 24 hr 30 mg PO DAILY cholecalciferol (vitamin D3) 25 mcg (1,000 unit) tablet 25 mcg PO DAILY Discharge Orders: Discharge Order (Routine); Ordered 04/10/25 Ordered By: Brad Mccarthy Diet: Advance to usual diet Activity on Discharge: As tolerated Stand Alone Forms: Patient Portal Discharge page Print Language: [place] Care Plan Goals: manage bp, volume Health Concerns: htn, esrd Plan of Treatment: continue meds as prescribed, follow up with nephro Assessment: see above
[2025-04-10 11:22] LABS: Glucose, Whole Blood 235 mg/dL (60-115)
--- NOTE | 2025-04-10 11:49 | MHC.CM.PN ---
Pt has been medically cleared to DC, she will go home via family transport, and resume her [employer] and adult day health services.
--- NOTE | 2025-04-10 13:30 | P.PNNP_ITS ---
Subjective Subjective Date of Service: 04/09/25 Interval history: Seen and examied, events noted Physical Exam 2 Vital Signs: Vital Signs: Last Vital Signs Temp 97.9 F 04/10/25 11:10 Pulse 60 04/10/25 11:10 Resp 18 04/10/25 11:10 BP 138/82 04/10/25 11:10 Pulse Ox 96 04/10/25 11:10 O2 Del Method Room Air 04/10/25 11:10 BMI result Body Mass Index 20.7 Objective Data Labs 04/10/25 06:07 04/10/25 06:07 Labs: Laboratory Results - last 24 hr 04/09/25 04/09/25 04/10/25 15:32 20:48 06:07 WBC 5.3 RBC 2.90 L Hgb 8.9 L Hct 26.4 L MCV 91.0 MCH 30.7 MCHC 33.7 RDW 14.2 Plt Count 182 MPV 10.4 Absolute Nucleated RBC 0.000 Nucleated RBC % (auto) 0.0 Sodium 134 L Potassium 4.8 Chloride 95 L Carbon Dioxide 26 Anion Gap 18 BUN 30 H Creatinine 5.97 H* Estim Creat Clear Calc 6.4 Estimated GFR 7 POC Glucose 104 166 H Random Glucose 129 H Calcium 9.5 04/10/25 04/10/25 07:12 11:11 WBC RBC Hgb Hct MCV MCH MCHC RDW Plt Count MPV Absolute Nucleated RBC Nucleated RBC % (auto) Sodium Potassium Chloride Carbon Dioxide Anion Gap BUN Creatinine Estim Creat Clear Calc Estimated GFR POC Glucose 133 H 235 H Random Glucose Calcium Procedures Date of Service Date of Service: 04/10/25 Assessment & Plan Assessment and plan (1) Chest pain: Status: Acute Plan 70F PMH ESRD (RTANE), CAD s/p CABG, stent jul 2024, , dm, gerd, geronimo, hld, presented with chest pain. End-stage renal disease with fluid overload Xtra UF 04/08 and now HD today Ovverall doing better SOB: improved with fluid remova HTN: imorved on meds Nephrogenic anemia REC: cont renal meds; track BP; cont HD mwf as per ross d/c planning Time Spent With Patient Time: Total time managing care of this patient today ____ minutes. Progress Note: Quality Stroke Does the patient have a stroke diagnosis?: No
--- NOTE | 2025-04-10 13:35 | P.PNNP_ITS ---
Subjective Subjective Date of Service: 04/10/25 Interval history: Seen and examied, events noted Physical Exam 2 Vital Signs: Vital Signs: Last Vital Signs Temp 97.9 F 04/10/25 11:10 Pulse 60 04/10/25 11:10 Resp 18 04/10/25 11:10 BP 138/82 04/10/25 11:10 Pulse Ox 96 04/10/25 11:10 O2 Del Method Room Air 04/10/25 11:10 BMI result Body Mass Index 20.7 Objective Data Labs 04/10/25 06:07 04/10/25 06:07 Labs: Laboratory Results - last 24 hr 04/09/25 04/09/25 04/10/25 15:32 20:48 06:07 WBC 5.3 RBC 2.90 L Hgb 8.9 L Hct 26.4 L MCV 91.0 MCH 30.7 MCHC 33.7 RDW 14.2 Plt Count 182 MPV 10.4 Absolute Nucleated RBC 0.000 Nucleated RBC % (auto) 0.0 Sodium 134 L Potassium 4.8 Chloride 95 L Carbon Dioxide 26 Anion Gap 18 BUN 30 H Creatinine 5.97 H* Estim Creat Clear Calc 6.4 Estimated GFR 7 POC Glucose 104 166 H Random Glucose 129 H Calcium 9.5 04/10/25 04/10/25 07:12 11:11 WBC RBC Hgb Hct MCV MCH MCHC RDW Plt Count MPV Absolute Nucleated RBC Nucleated RBC % (auto) Sodium Potassium Chloride Carbon Dioxide Anion Gap BUN Creatinine Estim Creat Clear Calc Estimated GFR POC Glucose 133 H 235 H Random Glucose Calcium Procedures Date of Service Date of Service: 04/10/25 Assessment & Plan Assessment and plan (1) Chest pain: Status: Acute Plan 70F PMH ESRD (RTANE), CAD s/p CABG, stent jul 2024, , dm, gerd, geronimo, hld, presented with chest pain. End-stage renal disease with fluid overload Xtra UF 04/08 and now HD today Ovverall doing better SOB: improved with fluid removal HTN: imorved on meds Nephrogenic anemia REC: cont renal meds; track BP; cont HD mwf as per shcedule at [facility]U d/c planning Time Spent With Patient Time: Total time managing care of this patient today ____ minutes. Progress Note: Quality Stroke Does the patient have a stroke diagnosis?: No
[2025-04-10 16:41] LABS: Glucose, Whole Blood 81 mg/dL (60-115)
== END 2025-04-10 19:10 | disposition home or self-care (01) | DRG 640 ==
LOC: HO.ED 09:54 → HO.EDOVER 10:30 → HO.IMC 13:50
PROVIDERS: Hospitalist; Internal Medicine; Admitting Provider Internal Medicine; Emergency Provider Emergency Medicine; PCP Family Medicine; Visit Provider Internal Medicine
DX: E87.70 Fluid overload, unspecified (principal); N18.6 End stage renal disease; I12.0 Hypertensive chronic kidney disease with stage 5 chronic kidney disease or end stage renal disease; I16.1 Hypertensive emergency; E11.22 Type 2 diabetes mellitus with diabetic chronic kidney disease; G47.33 Obstructive sleep apnea (adult) (pediatric); D63.1 Anemia in chronic kidney disease; F32.A Depression, unspecified; Z99.2 Dependence on renal dialysis; J45.30 Mild persistent asthma, uncomplicated; I25.10 Atherosclerotic heart disease of native coronary artery without angina pectoris; Z95.5 Presence of coronary angioplasty implant and graft; Z79.4 Long term (current) use of insulin; Z79.82 Long term (current) use of aspirin; Z79.899 Other long term (current) drug therapy
CPT/HCPCS: 36415; 71045; 80048; 80076; 82947; 83690; 83735; 83880; 84484; 85025; 85027; 90999; 93005; 94640; 99285; J1171; J1644; J1938; J2270

== ENCOUNTER → 2025-04-08 06:37 | Outpatient (BNV) | payer OTHER, SELFPAY | PROVIDERS: Emergency Provider Emergency Medicine; PCP Family Medicine; Visit Provider Radiology Diagnostic Radiology | DX: J90 Pleural effusion, not elsewhere classified (principal) | CPT/HCPCS: 71045 ==

== ENCOUNTER → 2025-04-08 06:37 | Outpatient (BNV) | payer OTHER, SELFPAY | PROVIDERS: Admitting Provider Internal Medicine; Emergency Provider Emergency Medicine; PCP Family Medicine; Visit Provider Internal Medicine Cardiovascular Disease | DX: I45.10 Unspecified right bundle-branch block (principal) | CPT/HCPCS: 93010 ==

== ENCOUNTER 2025-04-08 10:25 | Outpatient (BNV) | payer OTHER, SELFPAY | END 2025-04-09 02:56 | PROVIDERS: Admitting Provider Internal Medicine; Emergency Provider Emergency Medicine; PCP Family Medicine; Visit Provider Internal Medicine Cardiovascular Disease | DX: R07.9 Chest pain, unspecified (principal) | CPT/HCPCS: 93010 ==

== ENCOUNTER → 2025-04-08 10:25 | Outpatient (BNV) | payer OTHER, SELFPAY | PROVIDERS: Admitting Provider Internal Medicine; Emergency Provider Emergency Medicine; PCP Family Medicine; Visit Provider Internal Medicine | DX: R07.9 Chest pain, unspecified (principal) | CPT/HCPCS: 99223; 99232 ==

== ENCOUNTER 2025-06-28 11:50 | Inpatient (IN) | payer OTHER, SELFPAY ==
--- NOTE | ~2025-06-28 | XR_ITS ---
CLINICAL HISTORY: sob 1 view chest x-ray. Comparison: 04/08/2025 Findings: No consolidation or effusion. Cardiac and mediastinal contours appear stable. Bones unremarkable. Impression: 1. No acute pulmonary disease. This document has been electronically signed by: Ag Mohan MD on 06/28/2025 14:28:59
--- NOTE | ~2025-06-28 | CT_ITS ---
CLINICAL HISTORY: abdominal pain, GI bleeding CT abdomen and pelvis without contrast Comparison: CT/REG/VA/SR - CT ABDOMEN PELVIS WITHOUT THEN WITH IV CONTRAST - 03/06/25 13:08 EDT Findings: No consolidation or effusion. Unremarkable gallbladder and solid organs. No urolithiasis. No bowel obstruction, pneumoperitoneum, or pneumatosis. Calcified coronary atherosclerotic disease. Prior sternotomy. Moderate calcified atherosclerotic disease of the abdominal aorta. The appendix is within normal limits. Diverticulosis. Asymmetric mural thickening of the distal sigmoid colon. Extensive peritoneal arterial calcifications. The bones are intact. Moderate osteopenia. IMPRESSION: 1. Asymmetric mural thickening of the distal sigmoid colon; colon carcinoma can not be excluded. 2. Diverticulosis. 3. Chronic renal insufficiency. This document has been electronically signed by: Edgardo Bird MD on 06/29/2025 18:40:38
[2025-06-28 11:59] VITALS: BP 124/52; PULSE 55; RESP 16; TEMP 36.8; O2SAT 100
[2025-06-28 12:01] VITALS: BP 124/52; BP 168/80; PULSE 60; PULSE 72; RESP 16; TEMP 36.8; O2SAT 100; BMI 21.9
--- OUTSIDE RECORDS SUMMARY | 2025-06-28 12:19 | XMS_ITS | Encounter Summary ---
Author Organization [employer] [facility] Address [address] [place] [address] 7t [place] [address] Care Team Providers Care Sales Engineer Name Role Phone Patricia Ingram MD Primary Care Provider [phone] Encounter Details Date Type Department Care Team (Late Contact Info) Description 09/12/2022 Telephone [facility] MEDICINE [address] [place] [address] Patricia Ingram MD [address] [place] [address] Social History Tobacco Use Types Packs/Day Years Used Date Smoking Tobacco: Never Assessed Comments Unknown Sex and Gender Information Value Date Recorded Sex Assigned at Female 05/30/2022 10:18 AM EDT Legal Sex Female 10:18 AM EDT Gender Identity Female 05/30/2022 10:18 AM EDT Sexual Orientation Straight 05/30/2022 10 :18 AM EDT documented as of this encounter Plan of Treatment Upcoming Encounters Date Type Department Care Team (Late Contact Info) Description 07/21/2025 3:00 PM EST Office Visit [facility] MEDICINE [address] [place] [address] Patricia Ingram MD [address] [place] [address] 10/10/2025 11:00 AM EDT Office Visit [facility] OPTOMETRY [address] [place] [address] Jasmyne Landis, OD [address] [place] [address] documented as of this encounter Visit Diagnoses Not on filedocumented in this encounter Care Teams Sales Engineer Relationship Specialty Start Date End Date Patricia Ingram MD [address] [place] [address] PCP - General Family Medicine 07/12/12 [facility] 08/03/24 documented as of this encounter
--- OUTSIDE RECORDS SUMMARY | 2025-06-28 12:19 | XMS_ITS | Encounter Summary ---
Author Organization [employer] Address [address] [facility] 7t [place] [address] Care Team Providers Care Medical Sonographer Name Role Phone Patricia Ingram MD Primary Care Provider [phone] Reason for Visit * Reason Comments Med Refill Encounter Details Date Type Department Care Team ([facility] st Contact Info) Description 12/11/2024 Refill [facility] MEDICINE [address] [place] [address] Carolina Bedoya MD [address] [place] [address] Social History Tobacco Use Types Packs/Day Years Used Date Smoking Tobacco: Former Cigarettes Passive Smoke Exposure: Past Smokeless Tobacco: Never Alcohol Use Standard Drinks/Week Comments Defer 0 (1 standard drink = 0.6 oz pur e alcohol) Housing Stability Answer Date Recorded What is your housing situation today? I have salina jeremy 08/21/[address] you li ve. Do you have problems with any of the following? None of the above 08/21/2024 Food Insecurity Answer Date Recorded Within the past 12 months, y ou worried that your food would run out before you got money to buy more: Never True 08/21/2024 Within the past 12 months,th e food you bought just didn't last and you didn't have enough money to get more: Never True Transportation Answer Date Recorded In the past 12 months, has l ack of transportation kept you from medical appts, meetings, work or from getting things needed for daily living? No 08/21/2024 Utilities Answer Date Recorded In the past 12 months, has t he [employer], [employer], oil or water company threatened to shut off services in your home? No 08/21/2024 Depression Answer Date Recorded Patient Health Questionnaire-2 Score 4 03/27/2024 Internet Access Answer Date Recorded Internet Access Q1 Yes 08/21/2024 Internet Access Q2 Not on file 08/21/2024 Comments Unknown Sex and Gender Information Value Date Recorded Sex Assigned at Female 05/30/2022 10:18 AM EDT Legal Sex Female 10:18 AM EDT Gender Identity Female 05/30/2022 10:18 AM EDT Sexual Orientation Straight 05/30/2022 10 :18 AM EDT documented as of this encounter Plan of Treatment Upcoming Encounters Date Type Department Care Team (Late st Contact Info) Description 07/21/2025 3:00 PM EST Office Visit [facility] MEDICINE [address] [place] [address] Patricia Ingram MD [address] [place] [address] 10/10/2025 11:00 AM EDT Office Visit [facility] OPTOMETRY [address] [place] [address] Boby, Jasmyne, OD [address] [place] [address] documented as of this encounter Visit Diagnoses Not on filedocumented in this encounter Care Teams Medical Sonographer Relationship Specialty Start Date End Date Patricia Ingram MD [address] [place] [address] PCP - General Family Medicine 07[facility]12[facility]12 [facility] documented as of this encounter
--- OUTSIDE RECORDS SUMMARY | 2025-06-28 12:19 | XMS_ITS | Encounter Summary ---
Author Organization [employer] [facility] Address [address] [place] [address] 7t [place] [address] Care Team Providers Care Carton Liner Name Role Phone Patricia Ingram MD Primary Care Provider Reason for Visit * Reason Onset Date Comments FYI 09/25/2024 Appointment Request 09/25/2024 Encounter Details Date Type Department Care Team ([facility] st Contact Info) Description 09/25/2024 Telephone [facility] MEDICINE [address] [place], [place] [phone] Patricia Ingram MD [address] [place], [place] [phone] FYI; Appointment Request Social History Tobacco Use Types Packs/Day Years Used Date Smoking Tobacco: Former Cigarettes Passive Smoke Exposure: Past Smokeless Tobacco: Never Alcohol Use Standard Drinks/Week Comments Defer 0 (1 standard drink = 0.6 oz pur e alcohol) Housing Stability Answer Date Recorded What is your housing situation today? I have salina luna 08/21/[address] you li [...] the past 12 months, has t he electric, gas, oil or water company threatened to shut [...] AM EDT documented as of this encounter Miscellaneous Notes * Telephone Encounter - Sherly Zarco - 09/25/2024 1:32 PM EST Tc from Jeff stating he visits pt 3 times a week but services are going to cut off due pt needs saran seen for annual visit. Nurse states told pt many times about the appt and pt keep forgetting. Wrapper Counter tried to schedule appt, no availability. Contact Apolonia [phone] yemeni documented in this encounter Plan of Treatment Upcoming Encounters Date Type Department Care Team (Late st Contact Info) Description 07/21/2025 3:00 PM EST Office Visit [facility] MEDICINE [address] [place] [address] Patricia Ingram MD [address] [place] [address] 10/10/2025 11:00 AM EDT Office Visit [facility] OPTOMETRY [address] [place] [address] Jasmyne Landis OD [address] [place] [address] documented as of this encounter Visit Diagnoses Not on filedocumented in this encounter Care Teams Carton Liner Relationship Specialty Start Date End Date Patricia Ingram MD [address] [place] [phone] PCP - General Family Medicine 07/12/12 [facility] 08/03/24 documented as of this encounter
--- OUTSIDE RECORDS SUMMARY | 2025-06-28 12:19 | XMS_ITS | Encounter Summary ---
Author Organization [employer] Address [address] [facility] 7t [place] [address] Care Team Providers Care Wallpaper Inspector And Shipper Name Role Phone Patricia Ingram MD Primary Care Provider [phone] Encounter Details Date Type Department Care Team ([facility] st Contact Info) Description 10/03/2024 Orders Only [facility] MEDICINE [address] [place], [place] [phone] Patricia Ingram MD [address] [place] [address] Encounter for screening for respiratory tuberculosis (Primary Dx) Social History Tobacco Use Types Packs/Day Years Used Date Smoking Tobacco: Former Cigarettes Passive Smoke Exposure: Past Smokeless Tobacco: Never Alcohol Use Standard Drinks/Week Comments Defer 0 (1 standard drink = 0.6 oz pur e alcohol) Housing Stability Answer Date Recorded What is your housing situation today? I have salinagelacio luna 08/21/[address] you [...] the past 12 months, has t he [employer], [employer], oil or water [employer] threatened to shut off services in your [...] Description 07/21/2025 3:00 PM EST Office Visit [facility] MEDICINE [address] [place] [address] Patricia Ingram MD [address] [place] [address] 10/10/2025 11:00 AM EDT Office Visit [facility] OPTOMETRY [address] [place] [address] Boby, Jasmyne, OD [address] [place] [address] documented as of this encounter Procedures Procedure Name Priority Date/Time Associated Diagnosis Comments T-SPOT(R).TB Routine 12/02/2024 12:00 PM EDT Encounter for screening for respiratory tuberculosis documented in this encounter Results * (ABNORMAL) T-SPOT??.TB (12/02/2024 12:00 PM EDT) T Spot TB Positive( A) Negative [facility] Comment: Diagnosing or excluding tuberculosis (TB) disease andassessing the probability of latent TB infection (LTBI)requires a combination of epidemiological, historical,medical and diagnostic findings that should be takeninto consideration when interpreting T-SPOT.TB testresults. A positive test result does not rule in activeTB disease caused by Mycobacterium tuberculosis(M. tuberculosis); active TB disease should beconfirmed by other tests such as sputum smear andculture, PCR, and chest radiography.Uncommonly, a positive T-SPOT.TB result may be due toinfection with other Mycobacterium species includingM. kansasii, M. szulgai, M. gordonae, or M. marinum.Alternative tests would be required if these infectionsare suspected.The T-SPOT.TB test is qualitative and results arereported as positive, borderline, or negative, giventhat the test controls perform as expected. In linewith the Centers for Disease Control and Prevention's2010 recommendation to report quantitative measurementsalongside the qualitative result, the laboratoryprovides spot counts for informational purposes only.The T-SPOT.TB test should not be interpreted as aquantitative test. TS PANEL A 10 [facility] TS PANEL B 0 [facility] Negative Control Passed [facility] Positive Control Passed [facility] Comment:For additional infor henrietta, please refer tohttp://education.Innolume/faq/UWX160(This link is being provided for informational/educational purposes only.)THIS TEST WAS PERFORMED AT:[employer] [id number] [place] [address]RMTIYVS W. MASON,MD,PHD 12/02/2024 12:0 0 PM EDT 12/02/2024 1:10 PM EDT us Patricia Ingram MD LAB BLOOD ORDERABLES Final Resul t [facility] [address] [place] [address] [phone] documented in this encounter Visit Diagnoses Diagnosis Encounter for screening for respiratory tuberculosis- Primary documented in this encounter Care Teams Wallpaper Inspector And Shipper Relationship Specialty Start Date End Date Patricia Ingram MD [address] [place] [address] PCP - General Family Medicine 07/12[facility]12 [facility] documented as of this encounter
--- OUTSIDE RECORDS SUMMARY | 2025-06-28 12:20 | XMS_ITS | Encounter Summary ---
Author Organization [employer] [facility] Address [address] [facility] 7t [place] [address] Care Team Providers Care Communications Engineer Name Role Phone Patricia Ingram MD Primary Care Provider Reason for Visit * Reason Onset Date Comments Hospital Follow-up 09/02/2024 Encounter Details Date Type Department Care Team ([facility] st Contact Info) Description 09/02/2024 Telephone [facility] MEDICINE [address] [place], [place] [phone] Patricia Ingram MD [address] [place], [place] [phone] Hospital Follow-up Social History Tobacco Use Types Packs/Day Years [...] encounter Miscellaneous Notes * Telephone Encounter - Shonda Schroeder - 09/02/2024 3:20 PM EST Tc from pt requesting a HDF appt. [facility] [facility] Date of admission: 08/26/2024 Discharge date: Diagnosed:inflamed intestines , stomach ulcers *Send message to [place] Clinical Care Coordinators documented in this encounter Plan of Treatment Upcoming Encounters Date Type Department Care Team (Late st Contact Info) Description 07/21/2025 3:00 PM EST Office Visit [facility] MEDICINE [address] [place] [address] Patricia Ingram MD [address] [place] [address] 10/10/2025 11:00 AM EDT Office Visit [facility] OPTOMETRY [address] [place] [address] Boby, Jasmyne, OD [address] [place] [address] documented as of this encounter Visit Diagnoses Not on filedocumented in this encounter Care Teams Communications Engineer Relationship Specialty Start Date End Date Patricia Ingram MD [address] [place] [address] PCP - General Family Medicine 07/12/12 [facility] 08/03/24 documented as of this encounter
--- OUTSIDE RECORDS SUMMARY | 2025-06-28 12:20 | XMS_ITS | Encounter Summary ---
Author Organization [employer] Address [address] [facility] 7t [place] [address] Care Team Providers Care Plant Attendant Name Role Phone Patricia Ingram MD Primary Care Provider Reason for Visit * Reason Onset Date Comments Appointment Request 06/17/2025 Encounter Details Date Type Department Care Team ([facility] Contact Info) Description 06/17/[address] [facility] MEDICINE [address] [place], [place] [phone] Patricia Ingram MD [address] [place], [place] [phone] Appointment Request Social History Tobacco Use Types Packs/Day Years Used Date Smoking Tobacco: Former Cigarettes Passive Smoke Exposure: Past Smokeless Tobacco: Never Alcohol Use Standard Drinks/Week Comments Defer 0 (1 standard drink = 0.6 oz pur e alcohol) Depression Answer Date Recorded Patient Health Questionnaire-9 Score 13 04/14/2025 Patient Health Questionnaire-9 Score 13 04/14/2025 Last PHQ-9: Questionnaire Data Not on file 0 04/14/2025 Housing Stability Answer Date Recorded What is [...] Date Recorded Patient Health Questionnaire-2 Score 4 04/14/2025 Internet Access Answer Date Recorded Internet Access Q1 Yes 08/21/2024 Internet Access Q2 Not on file 08/21/2024 Comments No Sex and Gender Information Value Date Recorded Sex Assigned at Female 05/30/2022 10:18 AM EDT Legal Sex Female 10:18 AM EDT Gender Identity Female 05/30/2022 10:18 AM EDT Sexual Orientation Straight 05/30/2022 10 :18 AM EDT documented as of this encounter Miscellaneous Notes * Telephone Encounter - Ulysses Saba - 06/17/2025 11:44 AM EST Tc from Judi requesting a call back to schedule appointment with PCP. Greens Keeper unable to schedue due to limited availability. Please contact pt at [phone]. (Mozambican Speaker) documented in this encounter Plan of Treatment Upcoming Encounters Date Type Department Care Team ([facility] st Contact Info) Description 07/21/2025 3:00 PM EST Office Visit [facility] MEDICINE [address] [place] [address] Patricia Ingram MD [address] [place] [address] 10/10/2025 11:00 AM EDT Office Visit [facility] OPTOMETRY [address] [place] [address] Jasmyne Landis OD [address] [place] [address] documented as of this encounter Goals Goal Patient Goal Type Associated Problems Recent Progress Patient-Stated? Author Help patients manage their type 2 diabetes Care Plan Help patients manage their type 2 diabetes Ulysses Mccallum Weekly blood pressure task Care Plan Weekly blood pressure task No Ulysses Saba Help patients manage their type 2 diabetes Care Plan Help patients manage their type 2 diabetes No Ulysses Saba Patient has diabetic eye disease Care Plan Patient has diabetic eye disease No Ulysses Saba Help patients manage their type 2 diabetes Care Plan Help patients manage their type 2 diabetes No Ulysses Saba Patient has chronic kidney disease Care Plan Patient has chronic kidney disease No Ulysses Saba Help patients manage their type 2 diabetes Care Plan Help patients manage their type 2 diabetes No Ulysses Saba Patient has diabetic neuropathy Care Plan Patient has diabetic neuropathy No Ulysses Saba Weekly blood pressure task Care Plan Weekly blood pressure task No Ulysses Saba Weekly blood pressure task Care Plan Weekly blood pressure task No Ulysses Saba Weekly blood pressure task Care Plan Weekly blood pressure task No Ulysses Saba Patient has diabetic eye disease Care Plan Patient has diabetic eye disease No Ulysses Saba Patient has diabetic eye disease Care Plan Patient has diabetic eye disease No Ulysses Saba Patient has diabetic eye disease Care Plan Patient has diabetic eye disease No Ulysses Saba Patient has chronic kidney disease Care Plan Patient has chronic kidney disease No Ulysses Saba Patient has chronic kidney disease Care Plan Patient has chronic kidney disease No Ulysses Saba Patient has chronic kidney disease Care Plan Patient has chronic kidney disease No Ulysses Saba Patient has diabetic neuropathy Care Plan Patient has diabetic neuropathy No Ulysses Saba Patient has diabetic neuropathy Care Plan Patient has diabetic neuropathy No Ulysses Saba Patient has diabetic neuropathy Care Plan Patient has diabetic neuropathy No Ulysses Saba documented as of this encounter Visit Diagnoses Not on filedocumented in this encounter Additional Health Concerns Active Problems Noted Date Diagnosed Date Help patients manage their type 2 diabetes 06/17 Weekly blood pressure task 06/17/2025 Help patients manage their type 2 diabetes 06/17 Patient has diabetic eye disease 06/17/2025 Help patients manage their type 2 diabetes 06/17 Patient has chronic kidney disease 06/17/2025 Help patients manage their type 2 diabetes 06/17 Patient has diabetic neuropathy 06/17/2025 Weekly blood pressure task 06/17/2025 Weekly blood pressure task 06/17/2025 Weekly blood pressure task 06/17/2025 Patient has diabetic eye disease 06/17/2025 Patient has diabetic eye disease 06/17/2025 Patient has diabetic eye disease 06/17/2025 Patient has chronic kidney disease 06/17/2025 Patient has chronic kidney disease 06/17/2025 Patient has chronic kidney disease 06/17/2025 Patient has diabetic neuropathy 06/17/2025 Patient has diabetic neuropathy 06/17/2025 Patient has diabetic neuropathy 06/17/2025 Assessment Noted Time PHQ-9 Depression Total Score: 13 025 10:00 AM EDT documented as of this encounter Care Teams Plant Attendant Relationship Specialty Start Date End Date Patricia Ingram MD [address] [place] [address] PCP - General Family Medicine 07/12/12 [facility] 08/03/24 documented as of this encounter
--- OUTSIDE RECORDS SUMMARY | 2025-06-28 12:20 | XMS_ITS | Encounter Summary ---
Author Organization [employer] Address [address] [facility] [address]t [place] [address] Care Team Providers Care Mule Spinner Name Role Phone Patricia Ingram MD Primary Care Provider [phone] Reason for Visit * Reason Comments Med Refill Encounter Details Date Type Department Care Team ([facility] st Contact Info) Description 08/17/2023 Refill [facility] [address] [place], [place] [phone] Alejandra Sharma MD [address] [place], [place] [phone] Social History Tobacco Use Types Packs/Day Years Used Date Smoking Tobacco: Former Cigarettes Passive Smoke Exposure: Past Smokeless Tobacco: Never Alcohol Use Standard Drinks/Week Comments Defer 0 (1 standard drink = 0.6 oz pur e alcohol) Housing Stability Answer Date Recorded What is your housing situation today? I have [place] 05/19/[address] you li ve. Do you have problems with any of the following? None of the above 05/19/2023 Food Insecurity Answer Date Recorded Within the past 12 months, y ou worried that your food would run out before you got money to buy more: Never True 05/19/2023 Within the past 12 months,th e food you bought just didn't last and you didn't have enough money to get more: Never True Transportation Answer Date Recorded In the past 12 months, has l ack of transportation kept you from medical appts, meetings, work or from getting things needed for daily living? No 05/19/2023 Utilities Answer Date Recorded In the past 12 months, has t he electric, gas, oil or water [employer] threatened to shut off services in your home? No 05/19/2023 Comments Unknown Sex and Gender Information Value [...] Description 07/21/2025 3:00 PM EST Office Visit [facility] [address] [place] [address] Patricia Ingram MD [address] [place] [address] 10/10/2025 11:00 AM EDT Office Visit [facility] [address] [place] [address] Boby, Jasmyne, OD [address] [place] [address] documented as of this encounter Visit Diagnoses Not on filedocumented in this encounter Care Teams Mule Spinner Relationship Specialty Start Date End Date Patricia Ingram MD [address] [place] [address] PCP - General Family Medicine 07[facility] documented as of this encounter
--- OUTSIDE RECORDS SUMMARY | 2025-06-28 12:20 | XMS_ITS | Encounter Summary ---
Author Organization [facility] Address [address] [place] [address] 7t [place] [address] Care Team Providers Care Supportive Employment Case Manager Name Role Phone Patricia Ingram MD Primary Care Provider [phone] Encounter Details Date Type Department Care Team (Late st Contact Info) Description 03/01/2023 Orders Only [facility] [address] [place], [place] [phone] Patricia Ingram MD [address] [place] [phone] Pain in both feet (Primary Dx) Social History Tobacco Use Types [...] PM EST Office Visit [facility] [address] [place], [place] [phone] Patricia Ingram MD [address] [place] [address] 10/10/2025 11:00 AM EDT Office Visit [facility] [address] [place] [address] Jasmyne Landis, OD [address] [place] [address] documented as of this encounter Visit Diagnoses Diagnosis Pain in both feet- Primary documented in this encounter Care Teams Supportive Employment Case Manager Relationship Specialty Start Date End Date Patricia Ingram MD [address] [place] [address] PCP - General Family Medicine 07/12/12 [facility] 08/03/24 documented as of this encounter
--- OUTSIDE RECORDS SUMMARY | 2025-06-28 12:20 | XMS_ITS | Encounter Summary ---
Author Organization [employer] Address [address] [facility] 7t [place] [address] Care Team Providers Care Gate Attendant Name Role Phone Patricia Ingram MD Primary Care Provider [phone] Encounter Details Date Type Department Care Team ([facility] st Contact Info) Description 08/22/2024 Orders Only [facility] [address] [place], [place] [phone] Patricia Ingram MD [address] [place], [place] [phone] Social History Tobacco Use Types Packs/Day Years [...] Description 07/21/2025 3:00 PM EST Office Visit [facility] [address] [place] [address] Patricia Ingram MD [address] [place] [address] 10/10/2025 11:00 AM EDT Office Visit [facility] [address] [place] [address] Boby, Jasmyne, OD [address] [place] [address] documented as of this encounter Visit Diagnoses Not on filedocumented in this encounter Care Teams Gate Attendant Relationship Specialty Start Date End Date Patricia Ingram MD [address] [place] [address] PCP - General Family Medicine 07/12/12 [facility] 08/03/24 documented as of this encounter
--- OUTSIDE RECORDS SUMMARY | 2025-06-28 12:20 | XMS_ITS | Encounter Summary ---
Author Organization [facility] Address [address] [facility] 7t [place] [address] Care Team Providers Care Trumpet Teacher Name Role Phone Patricia Ingram MD Primary Care Provider Reason for Visit * Reason Onset Date Comments FYI 07/30/2024 Encounter Details Date Type Department Care Team ([facility] Contact Info) Description 07/30/2024 Telephone [facility] [address] [place], [place] [phone] Patricia Ingram MD [address] [place], [place] [phone] FYI Social History Tobacco Use Types Packs/Day Years [...] off services in your home? No 05/19/2023 Depression Answer Date Recorded Patient Health Questionnaire-2 Score 4 03/27/2024 Comments Unknown Sex and Gender Information Value Date Recorded Sex Assigned at Female 05/30/2022 10:18 AM EDT Legal Sex Female 10:18 AM EDT Gender Identity Female 05/30/2022 10:18 AM EDT Sexual Orientation Straight 05/30/2022 10 :18 AM EDT documented as of this encounter Miscellaneous Notes * Telephone Encounter - Shonda Schroeder - 07/30/2024 12:48 PM EST Tc from Liza with [facility] stating pt will be getting admitted 07/31/2024 If any questions please contact Liza [phone] documented in this encounter Plan of Treatment Upcoming Encounters Date Type Department Care Team (Late st Contact Info) Description 07/21/2025 3:00 PM EST Office Visit [facility] [address] [place] [address] Patricia Ingram MD [address] [place] [address] 10/10/2025 11:00 AM EDT Office Visit [facility] [address] [place] [address] Boby, Jasmyne, OD [address] [place] [address] documented as of this encounter Visit Diagnoses Not on filedocumented in this encounter Care Teams Trumpet Teacher Relationship Specialty Start Date End Date Patricia Ingram MD [address] [place] [address] PCP - General Family Medicine 07/12/12 [facility] 08/03/24 documented as of this encounter
--- OUTSIDE RECORDS SUMMARY | 2025-06-28 12:20 | XMS_ITS | Encounter Summary ---
Author Organization [employer] Address [address] [facility] 7t [place] [address] Care Team Providers Care Safety Lamp Keeper Name Role Phone Patricia Ingram MD Primary Care Provider [phone] Reason for Visit * Reason Comments Med Refill Encounter Details Date Type Department Care Team ([facility] st Contact Info) Description 02/04/2025 Refill [facility] [address] [place], [place] [phone] Patricia Ingram MD [address] [place], [place] [phone] Social History Tobacco Use Types Packs/Day Years [...] t he electric, gas, oil or water [employer] threatened to shut off services in your [...] Description 07/21/2025 3:00 PM EST Office Visit [facility] [address] [place] [address] Patricia Ingram MD [address] [place] [address] 10/10/2025 11:00 AM EDT Office Visit [facility] [address] [place] [address] Boby, Jasmyne, OD 230 [place] [address] documented as of this encounter Visit Diagnoses Not on filedocumented in this encounter Care Teams Safety Lamp Keeper Relationship Specialty Start Date End Date Patricia Ingram MD [address] [place] [address] PCP - General Family Medicine 07[facility]12[facility]12 [facility] documented as of this encounter
--- OUTSIDE RECORDS SUMMARY | 2025-06-28 12:20 | XMS_ITS | Encounter Summary ---
Author Organization [employer] Address [address] [facility] 7t [place] [address] Care Team Providers Care Chemical Tester Name Role Phone Patricia Ingram MD Primary Care Provider [phone] Reason for Visit * Reason Comments Med Refill Encounter Details Date Type Department Care Team ([facility] st Contact Info) Description 04/28/2025 Refill [facility] [address] [place], [place] [phone] Patricia Ingram MD [address] [place], [place] [phone] Vitamin deficiency Social History Tobacco Use Types Packs/Day Years [...] Description 07/21/2025 3:00 PM EST Office Visit [facility] [address] [place] [address] Patricia Ingram MD [address] [place] [address] 10/10/2025 11:00 AM EDT Office Visit [facility] [address] [place] [address] Boby, Jasmyne, OD [address] [place] [address] documented as of this encounter Visit Diagnoses Diagnosis Vitamin deficiency Unspecified vitamin deficiency documented in this encounter Additional Health Concerns Assessment Noted Time PHQ-9 Depression Total Score: 13 025 10:00 AM EDT documented as of this encounter Care Teams Chemical Tester Relationship Specialty Start Date End Date Patricia Ingram MD [address] [place] [address] PCP - General Family Medicine 07/12/12 [facility] 08/03/24 documented as of this encounter
--- OUTSIDE RECORDS SUMMARY | 2025-06-28 12:20 | XMS_ITS | Clinical Summary ---
Author Organization [employer] Address [address] [place] [address] [address] [place] [address] Care Team Providers Care Supervisor [employer] Name Role Phone Patricia Ingram MD Primary Care Provider [phone] Allergies No known active allergies Medications Praluent 75 MG/ML injection Inject 75 MG SUBCUTANEOUSLY EVERY 14 DAYS IN THE ABDOMEN, THIGHS OR UPPER ARM. ROTATE INJECTION SITES. 07/12/20 22 Active Blood Glucose Monitoring Suppl (inTarvo Mccormick Lite) w/Device kit USE DIRECTED 12/11/19 Active ezetimibe (Zetia) 10 MG tablet Take 10 mg by mouth in the morning. 07/27/20 22 Active FeroSul 325 (65 Fe) MG tablet TAKE 1 TABLET BY MOUTH TWICE DAILY IN THE MORNING AND IN THE EVENING WITH ORANGE JUICE 180 tablet 1 11/14/19 24 Active Acetaminophen Extra Strength 500 MG tabletIndications :Pain TAKE 2 TABLETS BY MOUTH EVERY 8 HOURS NEEDED 60 tablet 3 11/17/19 24 Active polyethylene glycol, PEG, 3350 (HealthyLax) 17 g packet Mix 1 packet in 8 ounces of water, juice, coffee or tea and drink once a day NEEDED. MAY INCREASE TO TWICE DAILY IF NEEDED 30 packet 1 04/10/20 24 Active polyvinyl alcohol (Liquifilm Tears) 1.4 % ophthalmic solution INSTILL 1 DROP IN EACH EYE THREE TIMES DAILY IN THE MORNING, AT NOON, AND AT BEDTIME NEEDED FOR DRY EYES 03/27/20 24 Active Blood Pressure Monitor misc Check BP daily 1 each 08/22/19 25 Active carvedilol (Coreg) 3.125 MG tablet Take 1 tablet (3.125 mg) by mouth with breakfast and with evening meal. 60 tablet 11 06/17/202 5 4:00 PM EST 08/22/19 25 Active isosorbide mononitrate ER (Imdur) 30 MG 24 hr tablet Take 1 tablet (30 mg) by mouth Once per day. Do not crush or chew. 30 tablet 5 4:00 PM EST 08/22/19 25 026 Active melatonin 5 MG tabletIndications :Psychophysiologi radha insomnia TAKE 1 TABLET BY MOUTH AT BEDTIME 90 tablet 1 09/05/19 25 Active sucralfate (Carafate) 1 g tablet Take 1 tablet by mouth before meals as needed, up to 3 times daily. 90 tablet 3 09/13/19 25 Active furosemide (Lasix) 40 MG tablet Take 2 tablets (80 mg) by mouth 2 times daily. Patient requests to change to 2 tabs bid 540 tablet 3 09/13/19 25 Active TRUEplus Lancets 33G miscIndications:T ype 2 diabetes mellitus with chronic kidney disease on chronic dialysis, with long-term current use of insulin (HCC) TEST BLOOD SUGAR FOUR TIMES DAILY 100 each 09/24/19 25 Active hydrALAZINE (Apresoline) 25 MG tablet Take 25 mg by mouth 3 times daily. 11/06/19 25 Active NovoLOG FLEXPEN 100 UNIT/ML pen INJECT SUBCUTANEOUSLY PER SLIDING SCALE WITH BREAKFAST AND SUPPER, & 3 UNITS WITH LUNCH. BLOOD SUGAR 100-149 = 3U, 150-199 = 5U, 200-249 = 7U, 250-299 = 9U, 300-349 = 11U, 350-399 = 13U, > 399 = 15U AND CALL MD 15 mL 5 12/10/19 25 Active Alcohol Swabs (Alcohol Prep) 70 % padsIndications:T ype 2 diabetes mellitus with diabetic chronic kidney disease, unspecified CKD stage, unspecified whether mcc insulin use (HCC) USE DIRECTED FOUR TIMES DAILY 100 each 5 4:00 PM EST 12/21/19 25 Active amLODIPine (Norvasc) 10 MG tablet TAKE 1 TABLET BY MOUTH EVERY MORNING 90 tablet 3 12/25/19 25 Active atorvastatin (Lipitor) 80 MG tablet Take 1 tablet (80 mg) by mouth at bedtime. 90 tablet 3 01/04/20 25 Active montelukast (Singulair) 10 MG tabletIndications :Moderate persistent asthma without complication TAKE 1 TABLET BY MOUTH AT BEDTIME 30 tablet 5 02/28/20 25 Active sertraline (Zoloft) 100 MG tabletIndications :Mood disorder (CMS/HCC) TAKE 1 AND 1/2 TABLETS BY MOUTH AT BEDTIME 135 tablet 1 03/26/20 25 Active cholecalciferol (Vitamin D-3) 25 MCG tablet TAKE 1 TABLET BY MOUTH EVERY MORNING 90 tablet 1 03/26/20 25 Active Lantus SoloStar 100 UNIT/ML pen Administer 5 units subcutaneously daily 3 mL 04/14/20 25 Active insulin pen needle (BD Pen Needle Mini Ultrafine) 31G x 5 mm miscIndications:T ype 2 diabetes mellitus with hyperglycemia (HCC) Use to administer insulin as instructed, up to 4 times daily 120 each 04/14/20 25 Active docusate sodium (Colace) 100 MG capsule TAKE 1 CAPSULE BY MOUTH TWICE DAILY NEEDED FOR CONSTIPATION 60 capsule 5 5 4:00 PM EST 04/14/20 25 Active cetirizine (ZyrTEC) 5 MG tablet Take 1 tablet (5 mg) by mouth Once per day. 90 tablet 3 04/14/20 25 Active diphenhydrAMINE (BENADryl) 25 MG tablet Take 1 tablet (25 mg) by mouth every 8 (eight) hours if needed for itching. 90 tablet 3 04/14/20 25 Active Ascorbic Acid (vitamin C) 500 MG tabletIndications :Vitamin deficiency TAKE 1 TABLET BY MOUTH TWICE DAILY IN THE MORNING AND IN THE EVENING 90 tablet 3 05/07/20 25 Active Brilinta 90 MG tablet TAKE 1 TABLET BY MOUTH TWICE DAILY IN THE MORNING AND IN THE EVENING 60 tablet 3 5 4:00 PM EST 05/07/20 25 Active pantoprazole (ProtoNix) 40 MG EC tablet TAKE 1 TABLET BY MOUTH EVERY MORNING 90 tablet 1 5 4:00 PM EST 05/21/20 25 Active FREESTYLE LITE test stripIndications: Diabetic nephropathy associated with type 2 diabetes mellitus (HCC) USE DIRECTED TO TEST BLOOD SUGAR FOUR TIMES DAILY 100 strip 5 5 4:00 PM EST 05/26/20 25 Active Symbicort 80-4.5 MCG/ACT inhalerIndication s:Wheezing INHALE 2 PUFFS BY MOUTH TWICE DAILY IN THE MORNING AND IN THE EVENING, RINSE MOUTH AFTER USING. 10.2 g 1 5 4:00 PM EST 05/29/20 Active Diclofenac Sodium 1 % gel Apply 1 g topically 3 times daily. 120 g 1 5 4:00 PM EST 06/03/20 Active Active Problems Problem Noted Date Diagnosed Date Abdominal pain 12/02/2024 Assessment & Plan (04/14/2025 6:09 PM EDT): - described as tightness - EGD by Dr. Villegas in Jul 2024 - Colonoscopy by Dr. Alvarenga in Feb 2010 - Continue pantoprazole and sucralfate - Refer to GI Assessment & Plan (12/02/2024 12:04 PM EDT): - described as tightness - EGD by Dr. Villegas in Jul 2024 - Colonoscopy by Dr. Alvarenga in Feb 2010 - Continue pantoprazole and sucralfate - Refer to GI GI bleed 09/13/2024 Assessment & Plan (12/02/2024 11:13 PM EDT): - acute GI bleed in a setting of DAPT after recent stent in Jul 2024 - EGD on 08/28/24 showed mild gastritis and duodenitis - continue DAPT with caution Assessment & Plan (09/13/2024 12:20 PM EST): - acute GI bleed in a setting of DAPT after recent stent - EGD on 08/28/24 showed mild gastritis and duodenitis - continue DAPT with caution Duodenitis 09/13/2024 Assessment & Plan (09/13/2024 12:22 PM EST): - EGD on 08/28/24 showed mild duodenitis and gastritis - avoid irritants - continue pantoprazole - add sucralfate AV fistula 03/27/2024 Assessment & Plan (03/29/2024 4:48 AM EDT): - left BC AV fistula, initially created in May 2023. Revision in November 2023. - she still has a permacath - continue following with vascular specialist Trigger finger 03/26/2024 Assessment & Plan (04/14/2025 6:11 PM EDT): - seen by hand specialist, and was recommended to have trigger finger release surgery - patient cancelled the surgery in Mar 2023 Assessment & Plan (03/27/2024 4:16 PM EDT): - seen by hand specialist, and was recommended to have trigger finger release surgery - patient cancelled the surgery in Mar 2023 Abnormal mammogram of left breast 03/26/2024 Assessment & Plan (12/02/2024 11:19 PM EDT): Screening Mammo 08/16/23 BI-RADS 0. Left breast calcification Dx mammo and US on 10/25/23 BI-RADS 3. 6-mo follow up was recommended. Dx mammo on 06/03/24 BI-RADS 3. 6 mo follow up was recommended, and is already scheduled for December 09, 2024 Assessment & Plan (08/22/2024 9:37 AM EST): Screening Mammo 08/16/23 BI-RADS 0. Left breast calcification Dx mammo and US on 10/25/23 BI-RADS 3. 6-mo follow up was recommended. Dx mammo on 06/03/24 BI-RADS 3. 6 mo follow up was recommended, and is already scheduled for November 2024 Assessment & Plan (03/28/2024 4:51 PM EDT): Screening Mammo 08/16/23 BI-RADS 0. Left breast calcification Dx mammo and US on 10/25/23 BI-RADS 3. 6-mo follow up was recommended. Osteopenia 03/26/2024 Assessment & Plan (03/27/2024 4:16 PM EDT): - last DEXA on 08/26/23 The lowest T-score -1.9 in femoral neck - continue weight bearing exercise - continue adequate vitamin D intake - will repeat DEXA in 2 years Constipation 03/09/2023 Assessment & Plan (08/21/2024 6:07 PM EST): - increase fiber in diet - continue docusate - continue senna - continue polyethylene glycol (with caution for electrolytes disturbance) - continue bisacodyl - asked her dialysis nurse to give some advise on her fluid intake Assessment & Plan (03/09/2023 5:55 AM EDT): - increase fiber in diet - continue docusate - add senna and dulcolax Foot pain, bilateral 03/08/2023 Assessment & Plan (09/13/2024 12:27 PM EST): - multifactorial, diabetic neuropathy, plantar fasciitis, and arthritis - script written for a new pair of diabetic footwear - seeing high school science tutor - written scripts for shower extension, and rollator. Will check the status - written scripts for shower grab bars and chair Assessment & Plan (03/09/2023 5:47 AM EDT): - multifactorial, diabetic neuropathy, plantar fasciitis, and arthritis - evaluate with X-ray - refer to high school science tutor for evaluation and a new pair of diabetic footwear Colon cancer screening 03/07/2023 Assessment & Plan (12/02/2024 11:18 PM EDT): - she had colonoscopy when she was hospitalized for bleeding after hemorrhoidectomy by Dr. Villegas on 02/14/23. It was up to the mid transverse colon due to poor prep. Recommended to have a screening colonoscopy as outpatient in 6 mo. - hemorrhoidectomy was done by Dr. Zuñiga on 01/30/23 - she has anemia, current Dx anemia of chronic disease - will discuss whether she wants to have colonoscopy or cologuard. - referred to GI for abdominal discomfort / tightness on 12/02/24 Assessment & Plan (03/28/2024 4:50 PM EDT): - she had colonoscopy when she was hospitalized for bleeding after hemorrhoidectomy by Dr. Villegas on 02/14/23. It was up to the mid transverse colon due to poor prep. Recommended to have a screening colonoscopy as outpatient in 6 mo. - hemorrhoidectomy was done by Dr. Zuñiga on 01/30/23 - she has anemia, current Dx anemia of chronic disease - will discuss whether she wants to have colonoscopy or cologuard. Diabetic retinopathy 03/07/2023 HPV in female 03/07/2023 Osteoarthritis of left shoulder 03/07/2023 Rotator cuff tendonitis 03/07/2023 Diabetic polyneuropathy asso ciated with type 2 diabetes mellitus 12/31/2022 Assessment & Plan (12/02/2024 12:02 PM EDT): - prescribed diabetic footwear; patient disliked it - will consider trial of gabapentin - referred to high school science tutor Assessment & Plan (03/27/2024 3:59 PM EDT): - prescribed diabetic footwear; patient disliked it - will consider trial of gabapentin - refer to high school science tutor Assessment & Plan (03/09/2023 5:39 AM EDT): - prescribe diabetic footwear; check its status - refer to high school science tutor Assessment & Plan (12/31/2022 6:07 AM EDT): - prescribe diabetic foowear Left groin pain 12/21/2022 Assessment & Plan (12/21/2022 9:37 AM EDT): Will evaluate with XR Chest wall pain following surgery 09/21/2022 Assessment & Plan (12/02/2024 6:06 AM EDT): >>ASSESSMENT AND PLAN FOR CHEST WALL PAIN FOLLOWING SURGERY WRITTEN ON 09/21/2022 5:03 AM BY PATRICIA INGRAM MD -s/p CABG in 2018 -chronic sternotomy pain -continue supportive care >>ASSESSMENT AND PLAN FOR PRECORDIAL CHEST PAIN WRITTEN ON 09/21/2022 9:22 AM BY JUAN R CAT -Likely due to both anxiety and costochondritis -pt has large breast and s/p CABG. -She was prescribed a support bra. -Will check its status. Urinary incontinence 09/21/2022 Assessment & Plan (03/27/2024 9:36 AM EDT): -less since pt is now on HD -mild pelvic organ prolapse -Prescribed panty liners Assessment & Plan (03/09/2023 5:43 AM EDT): -less since pt is now on HD -mild pelvic organ prolapse -Prescribed panty liners Assessment & Plan (09/21/2022 9:23 AM EST): -less since pt is now on HD -mild pelvic organ prolapse -Prescribed panty liners Chronic cough 09/21/2022 Assessment & Plan (03/27/2024 4:00 PM EDT): -she was using CPAP prior to CABG, then she states she has not had CPAP since CABG because she was discharged to SNF -will check its status Assessment & Plan (12/31/2022 6:00 AM EDT): -Pt has been taking benzonatate -Not covered by insurance and has high co-pay -Will ask Pharmacist and [facility] for alternative medication -Will submit PA form for benzonatate since it is the only effective medication so far Assessment & Plan (09/21/2022 10:39 AM EST): h/o allergic rhinitis, asthma and SHELIA -Will optimize treatment -Will evaluate with PFT -Will refer to Hand Lacer -Rx Jillian Jackson for short-term Proliferative diabetic retin opathy associated with type 2 diabetes mellitus 09/21/2022 Assessment & Plan (03/27/2024 9:37 AM EDT): -Following with [facility] -Receiving VEGF inhibitor treatment -Informed that VEGF inhibitor is appropriate Tx for her condition -Encouraged to continue with current treatment Assessment & Plan (03/09/2023 5:51 AM EDT): -Following with [facility] -Receiving VEGF inhibitor treatment -Informed that VEGF inhibitor is appropriate Tx for her condition -Encouraged to continue with current treatment Assessment & Plan (12/21/2022 9:36 AM EDT): -Following with [facility] -Receiving VEGF inhibitor treatment -Informed that VEGF inhibitor is appropriate Tx for her condition -Encouraged to continue with current treatment Assessment & Plan (09/21/2022 1:46 PM EST): -Following with [facility] -Receiving VEGF inhibitor treatment -Informed that VEGF inhibitor is appropriate Tx for her condition -Encouraged to continue with current treatment Cervical high risk HPV (human papillomavirus) te st positive 08/25/2022 Assessment & Plan (09/21/2022 5:17 AM EST): 05/09/18 Pap NILM with positive high-risk HPV 09/29/19 Pap NILM with positive high-risk HPV -PAP on 01/12/22 NILM with positive high-risk HPV -colposcopy on 06/01/22. Negative for malignancy Backache 07/13/2022 Dependence on renal dialysis 08/20/2021 ESRD (end stage renal disease) on dialysis ([facility]) 08/20/2021 Assessment & Plan (04/14/2025 9:07 AM EDT): - hemodialysis since 06/2021, currently receiving on Monday/ /Monday. - Created left brachial radiocephalic AV fistula on 07/22/22. Fistulogram and balloon angioplasty on 10/28/22 to assist maturation. Repeat balloon angioplasty and sidebranch ligation on 01/18/23. - Created left brachiocephalic AV fissula on 06/09/23. Kink was noted on fistulogram. Revised on 12/27/23. - AV fistula repair on 12/27/23, patient was given approval to use left AV fistula on 03/15/24, she has been using left AVF since February 2024 without any issue -On the list for renal transplant -Follow-up with [employer] Operator -Follow up with vascular specialist Assessment & Plan (12/02/2024 9:48 AM EDT): - hemodialysis since 06/2021, currently receiving on . - Created left brachial radiocephalic AV fistula on 07/22/22. Fistulogram and balloon angioplasty on 10/28/22 to assist maturation. Repeat balloon angioplasty and sidebranch ligation on 01/18/23. - Created left brachiocephalic AV fissula on 06/09/23. Kink was noted on fistulogram. Revised on 12/27/23. - AV fistula repair on 12/27/23, patient was given approval to use left AV fistula on 03/15/24, she has been using left AVF since February 2024 without any issue -On the list for renal transplant -Follow-up with [employer] Operator -Follow up with vascular specialist Assessment & Plan (08/22/2024 9:32 AM EST): - hemodialysis since 06/2021, currently receiving on . - Created left brachial radiocephalic AV fistula on 07/22/22. Fistulogram and balloon angioplasty on 10/28/22 to assist maturation. Repeat balloon angioplasty and sidebranch ligation on 01/18/23. - Created left brachiocephalic AV fissula on 06/09/23. Kink was noted on fistulogram. Revised on 12/27/23. - AV fistula repair on 12/27/23, patient was given approval to use left AV fistula on 03/15/24, she has been using left AVF since February 2024 without any issue -On the list for renal transplant -Follow-up with [employer] Operator -Follow up with vascular specialist Assessment & Plan (03/29/2024 4:59 AM EDT): - hemodialysis since 06/2021, currently receiving on . - Created left brachial radiocephalic AV fistula on 07/22/22. Fistulogram and balloon angioplasty on 10/28/22 to assist maturation. Repeat balloon angioplasty and sidebranch ligation on 01/18/23. - Created left brachiocephalic AV fissula on 06/09/23. Kink was noted on fistulogram. Revised on 12/27/23. - AV fistula repair on 12/27/23, patient was given approval to use left AV fistula on 03/15/24, patient states she is still using both left AV fistula and Permacath (right internal jugular tunneled catheter). -On the list for renal transplant -Follow-up with [employer] Operator -Follow up with vascular specialist Assessment & Plan (03/26/2024 6:38 AM EDT): >>ASSESSMENT AND PLAN FOR END STAGE RENAL DISEASE ([facility]) WRITTEN ON 09/21/2022 9:19 AM BY JUAN R CAT Started dialysis in 06/2021, currently receiving Monday/ /Monday. -Created AV fistula on 07/22/22 -List for renal transplant -Follow-up with [employer] Operator Assessment & Plan (03/26/2024 6:38 AM EDT): >>ASSESSMENT AND PLAN FOR END STAGE RENAL DISEASE ([facility]) WRITTEN ON 12/31/2022 6:03 AM BY PATRICIA INGRAM MD Started dialysis in 06/2021, currently receiving Monday/ /Monday. -Created left AV fistula on 07/22/22, still cannot be used -List for renal transplant -Follow-up with [employer] Operator Assessment & Plan (03/26/2024 6:38 AM EDT): >>ASSESSMENT AND PLAN FOR ESRD (END STAGE RENAL DISEASE) ON DIALYSIS ([facility]) WRITTEN ON 03/09/2023 5:46 AM BY PATRICIA INGRAM MD Started dialysis in 06/2021, currently receiving on Monday/ /Monday. -Created left AV fistula on 07/22/22, still cannot be used -List for renal transplant -Follow-up with [employer] Operator -Follow up with vascular specialist -Caution with nutritional supplement and laxative which may cause electrolyte imbalance >>ASSESSMENT AND PLAN FOR END STAGE RENAL DISEASE ([facility]) WRITTEN ON 03/09/2023 5:44 AM BY PATRICIA INGRAM MD Started dialysis in 06/2021, currently receiving Monday/ /Monday. -Created left AV fistula on 07/22/22, still cannot be used -List for renal transplant -Follow-up with [employer] Operator Nephrotic range proteinuria 10/20/2020 Diabetic nephropathy associa hardik with type 2 diabetes mellitus 10/19/2020 Hyperandrogenism 10/23/2018 Status post coronary artery bypass graft 018 Assessment & Plan (12/02/2024 11:10 PM EDT): -Presented to [facility] ED on 10/01/17. Dx NSTEMI; Transferred to [facility] for cardiac cath, found multi-vessel disease and had CABG x 3 on 10/05/17 CABG x 3. Treated with clopidogrel and ASA for 1 year. Clopidogrel was discontinued. -Presented to [facility] ED on 07/30/24 for recurrent chest pain shortly after hospitalization for acute heart failure. Cardiac cath on 08/01/24 showed multivessel CAD including severe distal LMCA disease, patent STAPLES to LAD and saphenous venous graft. PCI and LUISANA to LMCA and proximal circumflex. Started on ticagrelor -Building And Construction Manager: previously HFCCA, started seeing [facility] cardiology -Continue DAPT with aspirin and ticagrelor. -Continue carvedilol -Continue statin -ARB was discontinued when patient was having recurrent WALLY -Work on risk factor management. - patient's niece will help patient reschedule appointment with neurology specialist Personal history of latent tuberculosis infectio n 09/05/2017 Overview (09/21/2022): s/p Rifampin Tx Assessment & Plan (09/21/2022 4:53 AM EST): -s/p Treatment with Rifampin > 4 mo in 2017 -Seen by TB clinic provider in [address]. Pt has received adequate Tx and does not need further Tx, unless pt exhibits symptoms of active TB. Panic disorder 07/04/2017 History of latent tuberculosis 02/04/2016 Overview (07/13/2022): Pt completed Rfiampin Tx for LTBI Positive reaction to tuberculin skin test 2015 Overview (03/07/2023): pt NOS to TB clinic x 2- TB clinic case closedPt did not keep 2 additional appts. Letter sent to the referring source and to the pt.T-spot positive 02/05/16. Pt did not keep 2 sched appts. Letter sent to the referring source and to the patient. Ischemic heart disease 12/10/2015 Assessment & Plan (04/21/2025 9:45 AM EDT): -Building And Construction Manager: [facility] cardiology, last outpatient visit on 03/28/2025. Seen inpatient service in Mar 2025. -NSTEMI in September 2017 Cardiac cath showed multi-vessel disease. CABG x 3 on 10/05/17. S/p DAPT with clopidogrel and ASA for 1 year. Clopidogrel was discontinued in 2018. -NSTEMI in Jun 2024-Jul 2024. Cardiac cath / PCI with LUISANA on 08/01/24. Started on ticagrelor. Plan for DAPT for 1 year. -Patient recently was hospitalized for chest pressure / tightness in [facility] in Feb and Mar 2025, but declined to be transferred to [facility] for further evaluation -Continue ASA and statin. -ARB was discontinued due to WALLY / CKD -Work on risk factor management Assessment & Plan (12/02/2024 11:11 PM EDT): -Building And Construction Manager: [facility] cardiology, last seen in November 2024. Previously HFCCA, last seen on 05/02/22. -NSTEMI in September 2017 Cardiac cath showed multi-vessel disease. CABG x 3 on 10/05/17. S/p DAPT with clopidogrel and ASA for 1 year. Clopidogrel was discontinued in 2018. -NSTEMI in Jun 2024-Jul 2024. Cardiac cath / PCI with LUISANA on 08/01/24. Started on ticagrelor. Plan for DAPT for 1 year. -Continue ASA and statin. -ARB was discontinued due to WALLY / CKD. -Work on risk factor management. Assessment & Plan (09/13/2024 12:23 PM EST): -Building And Construction Manager: most recently seen by [facility] cardiology, last seen in Feb 2024. Previously HFCCA, last seen on 05/02/22. Will clarify whom she is going to follow up. -NSTEMI in September 2017 Cardiac cath showed multi-vessel disease. CABG x 3 on 10/05/17. S/p DAPT with clopidogrel and ASA for 1 year. Clopidogrel was discontinued in 2018. -NSTEMI in Jun 2024-Jul 2024. Cardiac cath / PCI with LUISANA on 08/01/24. Started on ticagrelor. Plan for DAPT for 1 year. -Continue ASA and statin. -ARB was discontinued due to WALLY / CKD. -Work on risk factor management. Assessment & Plan (08/22/2024 8:43 AM EST): -Building And Construction Manager: most recently seen by [facility] cardiology, last seen in Feb 2024. Previously HFCCA, last seen on 05/02/22. Will clarify whom she is going to follow up. -NSTEMI in September 2017 Cardiac cath showed multi-vessel disease. CABG x 3 on 10/05/17. S/p DAPT with clopidogrel and ASA for 1 year. Clopidogrel was discontinued in 2018. -NSTEMI in Jun 2024-Jul 2024. Cardiac cath / PCI with LUISANA on 08/01/24. Started on ticagrelor. Plan for DAPT for 1 year. -Continue ASA and statin. -ARB was discontinued due to WALLY / CKD. -Work on risk factor management. Assessment & Plan (03/27/2024 9:36 AM EDT): -Presented to [facility] ED on 10/01/17. Dx NSTEMI; Transferred to [facility] for cardiac cath, found multi-vessel disease and had CABG x 3 on 10/05/17 CABG x 3 -Building And Construction Manager: [facility], last seen on 05/02/22 -Echo on 09/13/21 EF 55-60%, Mild Aortic Stenosis; Grade I diastolic dysfunction, no valvular abnormality, WMA can't be excluded -Started on Plavix after CABG, No longer on Plavix. -Continue ASA and statin. -ARB was discontinued due to WALLY / CKD. -Work on risk factor management. Assessment & Plan (03/09/2023 5:40 AM EDT): -Presented to [facility] ED on 10/01/17. Dx NSTEMI; Transferred to [facility] for cardiac cath, found multi-vessel disease and had CABG x 3 on 10/05/17 CABG x 3 -Building And Construction Manager: ARE[employer], last seen on 05/02/22 -Echo on 09/13/21 EF 55-60%, Mild Aortic Stenosis; Grade I diastolic dysfunction, no valvular abnormality, WMA can't be excluded -Started on Plavix after CABG, No longer on Plavix. -Continue ASA and statin. -ARB was discontinued due to WALLY / CKD. -Work on risk factor management. Assessment & Plan (12/31/2022 6:02 AM EDT): -Presented to [facility] on 10/01/17. Dx NSTEMI; Transferred to [facility] for cardiac cath, found multi-vessel disease and had CABG x 3 on 10/05/17 CABG x 3 -Building And Construction Manager: ARELY, last seen on 05/02/22 -Echo on 09/13/21 EF 55-60%, Mild Aortic Stenosis; Grade I diastolic dysfunction, no valvular abnormality, WMA can't be excluded -Started on Plavix after CABG, No longer on Plavix. -Continue ASA and statin. -ARB was discontinued due to WALLY / CKD. -Work on risk factor management. Assessment & Plan (09/21/2022 4:59 AM EST): -Admitted to [facility] on 10/01/17. Dx NSTEMI; Transferred to [facility] for cardiac cath, found multi-vessel disease and had CABG x 3 on 10/05/17 CABG x 3 -Building And Construction Manager: ARELY, last seen on 05/02/22 -Echo on 09/13/21 EF 55-60%, Mild Aortic Stenosis; Grade I DD, no valve abn, WMA can't be excluded -Started on Plavix after CABG, No longer on Plavix. -Continue ASA and statin. -ARB was discontinued due to WALLY / CKD. -Work on risk factor management. Anemia 11/18/2014 Assessment & Plan (04/14/2025 9:07 AM EDT): -Pt has ESRD and is on dialysis - transfused for acute hemorrhage after hemorrhoidectomy in 2023 - transfused for acute GI bleed in a setting of DAPT in Jul 2024 -Anemia of chronic disease -Managed by dialysis -Currently receiving iron at dialysis - check lab since patient reports recent GI bleed, worsening fatigue and appears pale today Assessment & Plan (12/02/2024 11:04 PM EDT): -Pt has ESRD and is on dialysis - transfused for acute hemorrhage after hemorrhoidectomy in 2023 - transfused for acute GI bleed in a setting of DAPT in Jul 2024 -Anemia of chronic disease -Managed by dialysis -Currently receiving iron at dialysis - check lab since patient reports recent GI bleed, worsening fatigue and appears pale today Assessment & Plan (09/13/2024 12:32 PM EST): -Pt has ESRD and is on dialysis - transfused for acute hemorrhage after hemorrhoidectomy in 2023 - transfused for acute GI bleed in a setting of DAPT in Jul 2024 -Anemia of chronic disease -Managed by dialysis -Currently receiving iron at dialysis Assessment & Plan (08/22/2024 9:35 AM EST): -Pt has ESRD and is on dialysis -Recently transfused for acute hemorrhage after hemorrhoidectomy -Anemia of chronic disease -Managed by dialysis -Currently prescribed ferrous sulfate Assessment & Plan (03/09/2023 5:52 AM EDT): -Pt has ESRD and is on dialysis -Recently transfused for acute hemorrhage after hemorrhoidectomy -Anemia of chronic disease -Managed by dialysis -Discontinue ferrous sulfate Assessment & Plan (12/31/2022 6:06 AM EDT): -Pt has ESRD and ion dialysis -Currently has bleding hemorrhoids -Last H/H 9.5/28.6 on 12/07/22 -will contact dialysis center for tx on anemia -will check lab Vitamin B12 deficiency 11/18/2014 Asthma 07/22/2013 Assessment & Plan (08/21/2024 5:55 PM EST): -Last exacerbation in 03/2022 when hospitalized for Pneumonia. Pt is still coughing. -Continue Albuterol nebulizer and inhaler -Continue following with Pulmonology Specialist -Continue Symbicort -Continue using Nebulizer as needed -Continue CPAP Patient needs a new nebulizer. Script was written. Assessment & Plan (03/09/2023 5:40 AM EDT): -Last exacerbation in 03/2022 when hospitalized for Pneumonia. Pt is still coughing. -Continue Albuterol -Continue following with Pulmonology Specialist -Continue Symbicort -Continue using Nebulizer as needed -Continue CPAP Assessment & Plan (12/21/2022 9:41 AM EDT): -Last exacerbation in 03/2022 when hospitalized for Pneumonia. Pt is still coughing. -Continue Albuterol -Continue following with Pulmonology Specialist -Continue Symbicort -Continue using Nebulizer as needed -Will check CPAP Status, she is being scheduled for Sleep Study Assessment & Plan (09/21/2022 1:30 PM EST): -Last exacerbation in 03/2022 when hospitalized for Pneumonia. Pt is still coughing. 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 Dyslipidemia 02/01/2013 Assessment & Plan (04/14/2025 6:07 PM EDT): -Current medications: Praluent, atorvastatin and ezetimbe -Last lipid profile: 03/28/2025 -Continue working on lifestyle modifications Assessment & Plan (12/02/2024 9:52 AM EDT): -Current medications: Praluent, atorvastatin and ezetimbe -Last lipid profile: July 2024 -Continue working on lifestyle modifications Assessment & Plan (08/22/2024 9:35 AM EST): -Current medications: Praluent, atorvastatin and ezetimbe -Last lipid profile: July 2024 -Continue working on lifestyle modifications Assessment & Plan (03/27/2024 4:20 PM EDT): -Current medications: Praluent, atorvastatin and ezetimbe -Last lipid profile: 12/21/22 TC 160; TG 185; HDL 60; LDL 72 -Continue working on lifestyle modifications Assessment & Plan (03/09/2023 5:54 AM EDT): -Current medications: atorvastatin and ezetimbe -Last lipid profile: 12/21/22 TC 160; TG 185; HDL 60; LDL 72 -Continue working on lifestyle modifications Assessment & Plan (09/21/2022 5:16 AM EST): -Current medications: atorvastatin and ezetimbe -Last lipid profile: 01/12/22 TC 174; TG 192; HDL 52; LDL 93 -Continue working on lifestyle modifications Mood disorder 02/01/2013 Vitamin D deficiency 02/01/2013 Mixed anxiety and depressive disorder 06/05/2012 Assessment & Plan (12/02/2024 9:52 AM EDT): -[facility] provider: Melania -Current medication: sertraline -Continue counseling Assessment & Plan (08/22/2024 9:35 AM EST): -[facility] provider: N -Current medication: sertraline -Continue counseling Assessment & Plan (03/27/2024 4:21 PM EDT): -[facility] provider: N -Current medication: sertraline -Continue counseling Assessment & Plan (12/31/2022 6:08 AM EDT): -[facility] provider: N -Current medication: sertraline Assessment & Plan (09/21/2022 5:15 AM EST): -[facility] provider: -Current medication: sertraline Osteoarthritis 03/12/2012 Assessment & Plan (09/21/2022 1:22 PM EST): -bilateral knees -Pt declines a referral to orthopedist for steroid or hyaluronic acid injection -Continue APAP prn -Pt uses a cane and a walker Allergic rhinitis 02/21/2012 Degeneration of lumbosacral intervertebral disc 02/21/2012 Assessment & Plan (09/13/2024 12:27 PM EST): - written scripts for shower extension, and rollator. Will check the status - written scripts for shower grab bars and chair Hypertension 02/21/2012 Assessment & Plan (04/21/2025 9:45 AM EDT): -Goal BP < 130/808 per ACC/AHA guideline (Treatment threshold >= 130/80) - BP not at goal today -Treatment Hx: ARB was discontinued due to WALLY. Hydralazine was discontinued due to hypotension. -continue working on lifestyle modifications -continue Amlodipine 10mg daily. -continue Carvedilol 3.125 mg bid (with caution due to known bradycardia) -continue Hydralazine 25 mg tid -continue isosorbide 30 mg daily (for angina) Assessment & Plan (12/02/2024 11:12 PM EDT): -Goal BP < 140/90 per JNC-8 and < 130/808 per ACC/AHA guideline (Treatment threshold >= 130/80) - BP not at goal today -Treatment Hx: ARB was discontinued due to WLALY. Hydralazine was discontinued due to hypotension. -continue working on lifestyle modifications -continue Amlodipine 10mg daily. -continue Carvedilol 3.125 mg bid (with caution due to known bradycardia) -continue Hydralazine 25 mg tid -continue isosorbide 30 mg daily (for angina) Assessment & Plan (09/13/2024 12:24 PM EST): -Goal BP < 140/90 per JNC-8 and < 130/808 per ACC/AHA guideline (Treatment threshold >= 130/80) - BP not at goal today -Treatment Hx: ARB was discontinued due to WALLY. Hydralazine was discontinued due to hypotension. -continue working on lifestyle modifications -continue Amlodipine 10mg daily. -continue Carvedilol 3.125 mg bid (with caution due to known bradycardia) -continue isosorbide 30 mg daily (for angina) Assessment & Plan (08/22/2024 8:46 AM EST): -Goal BP < 140/90 per JNC-8 and < 130/808 per ACC/AHA guideline (Treatment threshold >= 130/80) - BP not at goal today -Treatment Hx: ARB was discontinued due to WALLY -continue working on lifestyle modifications -continue Amlodipine 10mg daily. -continue Carvedilol 6.25mg bid (with caution due to known bradycardia) -continue Furosemide 60 mg bid -continue hydralazine 50 mg tid. -continue isosorbide 60 mg daily (for angina) -Concern regarding to iatrogenic hypotension. Advised to patient to monitor home BP. Called her dialysis center to reconcile her medications and monitor BP. Assessment & Plan (03/27/2024 4:09 PM EDT): -Goal BP < 140/90 per JNC-8 and < 130/808 per ACC/AHA guideline (Treatment threshold >= 130/80) - BP not at goal today -Treatment Hx: ARB was discontinued due to WALLY -continue working on lifestyle modifications -continue Amlodipine 10mg daily. -continue Carvedilol 6.25mg bid. -continue Furosemide 40 mg daily -continue hydralazine 10mg bid. -Consider referring to [facility] clinic. Patient has dialysis and is busy. -Follow up in 3-6 mo, sooner if any problem arises Assessment & Plan (03/09/2023 5:40 AM EDT): -Goal BP < 140/90 per JNC-8 and < 130/808 per ACC/AHA guideline (Treatment threshold >= 130/80), BP not at goal today -Treatment Hx: ARB was discontinued due to WALLY -continue working on lifestyle modifications -continue Amlodipine 10mg daily. -continue Carvedilol 6.25mg bid. -continue Furosemide 40 mg daily -continue hydralazine 10mg bid. -Consider referring to [facility] clinic. -Follow up in 3-6 mo, sooner if any problem arises Assessment & Plan (12/21/2022 9:33 AM EDT): -Goal BP < 140/90 per JNC-8 and < 130/808 per ACC/AHA guideline (Treatment threshold >= 130/80), BP not at goal today -Treatment Hx: ARB was discontinued due to WALLY -continue working on lifestyle modifications -continue Amlodipine 10mg daily. -continue Carvedilol 6.25mg bid. -continue Furosemide 40 mg daily -continue hydralazine 10mg bid. -Consider referring to [facility] clinic. -Follow up in 3-6 mo, sooner if any problem arises Assessment & Plan (09/21/2022 10:39 AM EST): -Goal BP < 140/90 per JNC-8 and < 130/808 per ACC/AHA guideline (Treatment threshold >= 130/80), BP not at goal today -Treatment Hx: ARB was discontinued due to WALLY -continue working on lifestyle modifications -continue Amlodipine 10mg daily. -continue Carvedilol 6.25mg bid. -continue Furosemide 40 mg daily -continue hydralazine 10mg bid. -Consider referring to [facility] clinic. -Follow up in 3-6 mo, sooner if any problem arises Uterine leiomyoma 02/21/2012 Gastroesophageal reflux disease without esophagi tis 02/28/2010 Assessment & Plan (12/02/2024 11:13 PM EDT): - continue pantoprazole 40 mg daily. - continue sucralfate 1 g qAC prn Assessment & Plan (09/13/2024 12:21 PM EST): - continue pantoprazole 40 mg daily. - add sucralfate 1 g qAC prn Assessment & Plan (08/21/2024 6:05 PM EST): - continue pantoprazole 40 mg daily Hemorrhoids 02/28/2010 Assessment & Plan (12/02/2024 11:12 PM EDT): - hemorrhoidectomy by Dr. Kline in January 2023 - post-op complication, bleeding from the surgical site, hospitalized and now it is no longer bleeding - patient was interested in having another hemorrhoidectomy; however, she is currently on dual antiplatelet therapy which needs to be uninterrupted for until 08/02/25 - optimize treatment for constipation - fiber rich diet and adequate fluid intake (patient is hesitant due to fluid restriction instructed by dialysis center) - avoid prolonged sitting / pressure - doughnut cushion Assessment & Plan (08/22/2024 9:29 AM EST): >>ASSESSMENT AND PLAN FOR EXTERNAL HEMORRHOIDS WRITTEN ON 09/21/2022 9:24 AM BY JUAN R CAT -avoid constipation and prolonged sitting / pressure -hydrocortisone - pramoxine 1-1% Assessment & Plan (08/22/2024 9:29 AM EST): >>ASSESSMENT AND PLAN FOR EXTERNAL HEMORRHOIDS WRITTEN ON 12/21/2022 9:38 AM BY JUAN R CAT Pt advised to avoid prolonged sitting Advised to increase fiber in diet to prevent constipation Declined exam today but states it is painful and large -Will refer patient to General Surgery -Rx Lidocaine Cream -Rx Donut pillow for chair Assessment & Plan (08/22/2024 9:29 AM EST): >>ASSESSMENT AND PLAN FOR EXTERNAL HEMORRHOIDS WRITTEN ON 03/09/2023 5:55 AM BY PATRICIA INGRAM MD - s/p hemorrhoidectomy on 01/30/[address] Kline - post-op complication, bleeding from the surgical site, hospitalized and now it is no longer bleeding - check the status of doughnut pillow / cushion - prevent constipation - prescribe topical cream or medicated pads for anal pain - APAP prn for anal pain Assessment & Plan (08/22/2024 9:30 AM EST): - hemorrhoidectomy by Dr. Kline in January 2023 - post-op complication, bleeding from the surgical site, hospitalized and now it is no longer bleeding - patient was interested in having another hemorrhoidectomy; however, she is currently on dual antiplatelet therapy which needs to be uninterrupted for until 08/02/25 - optimize treatment for constipation - fiber rich diet and adequate fluid intake (patient is hesitant due to fluid restriction instructed by dialysis center) - avoid prolonged sitting / pressure - doughnut cushion Obstructive sleep apnea syndrome 05/31/2009 Assessment & Plan (04/14/2025 9:08 AM EDT): -pt was seen by sleep med clinic 02/2021 had a sleep study done -pt had titration study on 10/25/21, and is recommended to use CPAP 8 cm H2O. -check the status of CPAP Assessment & Plan (12/02/2024 12:02 PM EDT): -pt was seen by sleep med clinic 02/2021 had a sleep study done -pt had titration study on 10/25/21, and is recommended to use CPAP 8 cm H2O. -check the status of CPAP Assessment & Plan (03/27/2024 3:59 PM EDT): -pt was seen by sleep med clinic 02/2021 had a sleep study done -pt had titration study on 10/25/21, and is recommended to use CPAP 8 cm H2O. -check the status of CPAP Assessment & Plan (12/31/2022 5:58 AM EDT): -pt was seen by sleep med clinic 02/2021 had a sleep study done -pt had titration study on 10/25/21, and is recommended to use CPAP 8 cm H2O. -pt is getting CPAP soon Assessment & Plan (09/21/2022 1:16 PM EST): -pt was seen by sleep med clinic 02/2021 had a sleep study done -pt had titration study on 10/25/21, and is recommended to use CPAP 8 cm H2O. -Pt still has not received CPAP; will check its status Coronary artery disease 01/28/2006 Assessment & Plan (04/14/2025 9:07 AM EDT): -Presented to [facility] on 10/01/17. Dx NSTEMI; Transferred to [facility] for cardiac cath, found multi-vessel disease and had CABG x 3 on 10/05/17 CABG x 3. Treated with clopidogrel and ASA for 1 year. Clopidogrel was discontinued. -Presented to [facility] ED on 07/30/24 for recurrent chest pain shortly after hospitalization for acute heart failure. Cardiac cath on 08/01/24 showed multivessel CAD including severe distal LMCA disease, patent STAPLES to LAD and saphenous venous graft. PCI and LUISANA to LMCA and proximal circumflex. Started on ticagrelor -Building And Construction Manager: [facility] -Continue DAPT with aspirin and ticagrelor. -Continue carvedilol -Continue statin -ARB was discontinued when patient was having recurrent WALLY -Work on risk factor management. Assessment & Plan (12/02/2024 11:12 PM EDT): -Presented to [facility] on 10/01/17. Dx NSTEMI; Transferred to [facility] for cardiac cath, found multi-vessel disease and had CABG x 3 on 10/05/17 CABG x 3. Treated with clopidogrel and ASA for 1 year. Clopidogrel was discontinued. -Presented to [facility] ED on 07/30/24 for recurrent chest pain shortly after hospitalization for acute heart failure. Cardiac cath on 08/01/24 showed multivessel CAD including severe distal LMCA disease, patent STAPLES to LAD and saphenous venous graft. PCI and LUISANA to LMCA and proximal circumflex. Started on ticagrelor -Building And Construction Manager: [facility] -Continue DAPT with aspirin and ticagrelor. -Continue carvedilol -Continue statin -ARB was discontinued when patient was having recurrent WALLY -Work on risk factor management. Assessment & Plan (09/13/2024 12:28 PM EST): -Presented to [facility] on 10/01/17. Dx NSTEMI; Transferred to [facility] for cardiac cath, found multi-vessel disease and had CABG x 3 on 10/05/17 CABG x 3. Treated with clopidogrel and ASA for 1 year. Clopidogrel was discontinued. -Presented to [facility] ED on 07/30/24 for recurrent chest pain shortly after hospitalization for acute heart failure. Cardiac cath on 08/01/24 showed multivessel CAD including severe distal LMCA disease, patent STAPLES to LAD and saphenous venous graft. PCI and LUISANA to LMCA and proximal circumflex. Started on ticagrelor -Building And Construction Manager: previously [facility], started seeing [facility] cardiology -Continue DAPT with aspirin and ticagrelor. -Continue carvedilol -Continue statin -ARB was discontinued when patient was having recurrent WALLY -Work on risk factor management. - patient's niece will help patient reschedule appointment with neurology specialist Assessment & Plan (08/22/2024 9:31 AM EST): -Presented to [facility] on 10/01/17. Dx NSTEMI; Transferred to [facility] for cardiac cath, found multi-vessel disease and had CABG x 3 on 10/05/17 CABG x 3. Treated with clopidogrel and ASA for 1 year. Clopidogrel was discontinued. -Presented to [facility] ED on 07/30/24 for recurrent chest pain shortly after hospitalization for acute heart failure. Cardiac cath on 08/01/24 showed multivessel CAD including severe distal LMCA disease, patent STAPLES to LAD and saphenous venous graft. PCI and LUISANA to LMCA and proximal circumflex. Started on ticagrelor -Building And Construction Manager: previously [facility], started seeing [facility] cardiology -Continue DAPT with aspirin and ticagrelor. -Continue carvedilol -Continue statin -ARB was discontinued when patient was having recurrent WALLY -Work on risk factor management. Type 2 diabetes mellitus 07/31/2003 Assessment & Plan (04/21/2025 9:47 AM EDT): - A1C 6.2% on 04/14/2025, increase from 6% on 10/31/24, 6.8% on 08/21/24, 6.7% on 03/27/24 -Diagnosed >20 years ago. -Risk factors / Associated conditions: She has both macrovascular and microvascular complications including VA, Diabetes nephropathy with proteinuria; peripheral neuropathy; retinopathy -Previously seeing endocrionologist for both DM and hirsutism -Continue basal insulin (Lantus) 5 units daily -Continue bolus insulin (Humalog) with sliding scale -Treatment Hx: Metformin ER which was discontinued due to dizziness and CKD. Basal insulin was discontinued due to frequent hypoglycemia. -Consider CGM (currently not prescribed for people on dialysis) -Last eye exam: 05/18/21, b/l proliferative DM retinopathy, macular edema, vitreous hemorrhage, and cataracts. Receiving Avastin injection. Pt reports more recent visit -Last foot exam: 03/27/24, neuropathy, PAD -Last microalbumin test: Pt already has ESRD -Last lipid profile: 03/28/2025 -Last dental exam: -Immunizations: up to date except COVID19 -Follow-up in 3 mo or sooner if concerning si/sx Assessment & Plan (12/02/2024 11:16 PM EDT): - A1C 6% on 10/31/24, 6.8% on 08/21/24, 6.7% on 03/27/24 -Diagnosed >20 years ago. -Risk factors / Associated conditions: She has both macrovascular and microvascular complications including VA, Diabetes nephropathy with proteinuria; peripheral neuropathy; retinopathy -Previously seeing endocrionologist for both DM and hirsutism -Continue bolus insulin (Humalog) with sliding scale -Treatment Hx: Metformin ER which was discontinued due to dizziness and CKD. Basal insulin was discontinued due to frequent hypoglycemia. -Consider CGM (currently not prescribed for people on dialysis) -Last eye exam: 05/18/21, b/l proliferative DM retinopathy, macular edema, vitreous hemorrhage, and cataracts. Receiving Avastin injection. Pt reports more recent visit -Last foot exam: 03/27/24, neuropathy, PAD -Last microalbumin test: Pt already has ESRD -Last lipid profile: Jul 2024 -Last dental exam: -Immunizations: up to date except COVID19 -Follow-up in 3 mo or sooner if concerning si/sx Assessment & Plan (08/22/2024 9:34 AM EST): - A1C 6.8% on 08/21/24, 6.7% on 03/27/24 -Diagnosed >20 years ago. -Risk factors / Associated conditions: She has both macrovascular and microvascular complications including VA, Diabetes nephropathy with proteinuria; peripheral neuropathy; retinopathy -Previously seeing endocrionologist for both DM and hirsutism -Continue bolus insulin (Humalog) with sliding scale -Treatment Hx: Metformin ER which was discontinued due to dizziness and CKD. Basal insulin was discontinued due to frequent hypoglycemia. -Consider CGM (currently not prescribed for people on dialysis) -Last eye exam: 05/18/21, b/l proliferative DM retinopathy, macular edema, vitreous hemorrhage, and cataracts. Receiving Avastin injection. Pt reports more recent visit -Last foot exam: 03/27/24, neuropathy, PAD -Last microalbumin test: Pt already has ESRD -Last lipid profile: Jul 2024 -Last dental exam: -Immunizations: up to date except COVID19 -Follow-up in 3 mo or sooner if concerning si/sx Assessment & Plan (03/27/2024 4:19 PM EDT): - A1C 6.7% on 03/27/24 -Diagnosed >20 years ago. -Risk factors / Associated conditions: She has both macrovascular and microvascular complications including VA, Diabetes nephropathy with proteinuria; peripheral neuropathy; retinopathy -Previously seeing endocrionologist for both DM and hirsutism -Continue Lantus 8 units in the morning and 8 units in the evening; consider changing to once daily dosing or to GLP-1 agonist / SGLT-2 inhibitor -Continue Novolog with sliding scale for breakfast and dinner, 3-4 units with lunch -Treatment Hx: Metformin ER which was discontinued due to dizziness and CKD. -Consider CGM (currently not prescribed for people on dialysis) -Last eye exam: 05/18/21, b/l proliferative DM retinopathy, macular edema, vitreous hemorrhage, and cataracts. Receiving Avastin injection. Pt reports more recent visit -Last foot exam: 03/27/24, neuropathy, PAD -Last microalbumin test: Pt already has ESRD -Last lipid profile: 12/21/22 TC 160; TG 185; HDL 60; LDL 72 -Last dental exam: -Immunizations: up to date except COVID19 -Follow-up in 3 mo or sooner if concerning si/sx Assessment & Plan (03/09/2023 5:50 AM EDT): - A1C 6.4% on 03/08/23, improvement likely due to tight-control during hospitalization and SNF stay, 7.4% on 12/21/22 -Diagnosed >20 years ago. -Risk factors / Associated conditions: She has both macrovascular and microvascular complications including VA, Diabetes nephropathy with proteinuria; peripheral neuropathy; retinopathy -Previously seeing endocrionologist for both DM and hirsutism -Continue Lantus 7 units in the morning and 7 units in the evening; consider changing to once daily dosing or to GLP-1 agonist / SGLT-2 inhibitor -Continue Novolog with sliding scale for breakfast and dinner, 3-4 units with lunch -Treatment Hx: Metformin ER which was discontinued due to dizziness and CKD. -Consider GLP-1 and/or SGLT-2 inhibitor may be another consideration given her cardiac history. -Consider CGM. -Last eye exam: 05/18/21, b/l proliferative DM retinopathy, macular edema, vitreous hemorrhage, and cataracts. Receiving Avastin injection. Pt reports more recent visit -Last foot exam: 09/01/22, neuropathy, PAD -Last microalbumin test: Pt already has ESRD -Last lipid profile: 12/21/22 TC 160; TG 185; HDL 60; LDL 72 -Last dental exam: -Immunizations: up to date except COVID19 -Follow-up in 3 mo or sooner if concerning si/sx Assessment & Plan (12/31/2022 6:04 AM EDT): - A1C 7.4% on 12/21/22, stable from 7.1% on 09/21/22 -Diagnosed >20 years ago. -Risk factors / Associated conditions: She has both macrovascular and microvascular complications including VA, Diabetes nephropathy with proteinuria; peripheral neuropathy; retinopathy -Previously seeing endocrionologist for both DM and hirsutism -Continue Lantus 7 units in the morning and 7 units in the evening; consider changing to once daily dosing or to GLP-1 agonist / SGLT-2 inhibitor -Continue Novolog with sliding scale for breakfast and dinner, 3-4 units with lunch -Treatment Hx: Metformin ER which was discontinued due to dizziness and CKD. -Consider GLP-1 and/or SGLT-2 inhibitor may be another consideration given her cardiac history. -Consider CGM. -Last eye exam: 05/18/21, b/l proliferative DM retinopathy, macular edema, vitreous hemorrhage, and cataracts. Receiving Avastin injection. Pt reports more recent visit -Last foot exam: 09/01/22, neuropathy, PAD -Last microalbumin test: Pt already has ESRD -Last lipid profile: 01/12/22 TC 174; TG 192; HDL 52; LDL 93 -Last dental exam: -Immunizations: up to date except COVID19 -Follow-up in 3 mo or sooner if concerning si/sx Assessment & Plan (09/21/2022 1:37 PM EST): - A1C 7.1% on 09/21/22, improved from 7.8% on 01/12/22 -Diagnosed >20 years ago. -Risk factors / Associated conditions: She has both macrovascular and microvascular complications including VA, Diabetes nephropathy with proteinuria; peripheral neuropathy; retinopathy -Previously seeing endocrionologist for both DM and hirsutism -Continue Lantus 8 units in the morning and 7 units in the evening; consider changing to once daily dosing or to GLP-1 agonist / SGLT-2 inhibitor -Continue Novolog with sliding scale for breakfast and dinner, 3-4 units with lunch -Treatment Hx: Metformin ER which was discontinued due to dizziness and CKD. -Consider GLP-1 and/or SGLT-2 inhibitor may be another consideration given her cardiac history. -Consider CGM. -Last eye exam: 05/18/21, b/l proliferative DM retinopathy, macular edema, vitreous hemorrhage, and cataracts. Receiving Avastin injection. Pt reports more recent visit -Last foot exam: 09/01/22, neuropathy, PAD -Last microalbumin test: Pt already has ESRD -Last lipid profile: 01/12/22 TC 174; TG 192; HDL 52; LDL 93 -Last dental exam: -Immunizations: up to date except COVID19 -Follow-up in 3 mo or sooner if concerning si/sx Chondromalacia of patella 07/31/2000 Resolved Problems Problem Noted Date Diagnosed Date Resolved Date Acute non-ST elevation myoca rdial infarction (NSTEMI) 03/07/2023 03/08/2023 Mass of upper lobe of right lung 07/13/2022 09/21/2022 Assessment & Plan (09/21/2022 9:21 AM EST): -12/20/21 Follow-up chest CT shows resolution of RUL mass -Initial mass was likely due to infection Pneumonia of left lower lobe due to infectious organism 07/13/2022 07/13/2022 Mild intermittent asthma 03/30/2018 Encounters Date Type Department Care Team Description 06/17/2025 Telephone [facility] [address] [place] [address] Patricia Ingram MD Appointment Request 06/02/2025 Refill [facility] [address] [place] [address] Patricia Ingram MD 05/29/2025 Refill [facility] [address] [place] [address] Patricia Ingram MD Wheezing 05/24/2025 Refill [facility] [address] [place] [address] Patricia Ingram MD Diabetic nephropathy associated with type 2 diabetes mellitus (HCC) 05/21/2025 Refill [facility] [address] [place] [address] Patricia Ingram MD 05/06/2025 Refill [facility] [address] [place] [address] Patricia Ingram MD Vitamin deficiency 04/28/2025 Refill [facility] [address] [place] [address] Patricia Ingram MD Vitamin deficiency 04/16/2025 Telephone [facility] [address] [place] [phone] Patricia Ingram MD podiatry 04/16/2025 Telephone [facility] [address] [place] [phone] Patricia Ingram MD 04/14/2025 9:00 AM EDT Office Visit [facility] [address] [place] [address] Patricia Ingram MD Primary hypertension (Primary Dx); Type 2 diabetes mellitus with chronic kidney disease on chronic dialysis, with long-term current use of insulin ([facility]); Ischemic heart disease; Coronary artery disease involving [place] heart with other form of angina pectoris, unspecified vessel or lesion type ([facility]); Dyslipidemia; ESRD (end stage renal disease) on dialysis ([facility]); Anemia, unspecified type; Obstructive sleep apnea syndrome; Type 2 diabetes mellitus with hyperglycemia ([facility]); Generalized abdominal pain; Trigger index finger, unspecified laterality 04/14/2025 Travel 04/11/2025 3:30 PM EDT Office Visit [facility] [address] [place] [address] Boby, Jasmyne, OD Proliferative diabetic retinopathy of both eyes with macular edema associated with type 2 diabetes mellitus (CMS/HCC) (Primary Dx); Epiretinal membrane (ERM) of both eyes; Pseudophakia of both eyes; Presbyopia 04/11/2025 Travel 04/11/2025 Telephone [facility] [address] [place] [address] Patricia Ingram MD CHART PREP 04/09/2025 Telephone [facility] [address] [place] [address] Patricia Ingram MD fyi 04/08/2025 Refill [facility] [address] [place], [place] [phone] Patricia Ingram MD 04/08/2025 Orders Only GENERIC EXTERNAL DATA DEPARTMENT Provider, Generic External Data 03/28/2025 Telephone [facility] [address], [place] [phone] German Orellana MD 03/28/2025 Orders Only GENERIC EXTERNAL DATA DEPARTMENT Provider, Generic External Data from Last 3 Months Immunizations Immunization Administration Dates Next Due Hep B, adult 12/17/2013,03/22/2013,02/06/2008 INFLUENZA INJECTABLE QUADRIV ALANT CCIIV4 MDCK Multi-dose vial 06/17/2019 Influenza High-dose Quadriva lent Preservative Free 05/04/2022,04/15/2020 Influenza Quadrivalent Adjuvanted 05/27/2021 Influenza injectable quadriv alent IIV4 with preservative 06/02/2015 Influenza injectable quadriv alent preservative free 04/25/2017,10/24/2016 Influenza, High Dose Seasona l, Preservative Free 04/17/2024,05/09/2018 Influenza, IIV3, injectable 04/15/2020,1 08/17/2018,05/09/2018,04/25,10/24/2016,04/21/2016,06/02/2015 ,04/22/2014,05/04/2011 Influenza, Split (incl. patricio fied surface antigen) 05/24/2013,05/03/2012 Influenza, seasonal, injecta ble, preservative free 04/21/2016 Moderna Covid-19 Vaccine 12+ 10/04/2021 Moderna Covid-19 Vaccine 6+ Bivalent 09/21/2022 Pneumococcal Conjugate PCV 13 10/23/2018 Pneumococcal Conjugate PCV 20 12/02/2024 Pneumococcal Polysaccharide PPSV23 04/25/2017, TD (adult), 2 Lf tetanus tox oid, preservative free, adsorbed 12/29/2010 Td (adult), unspecified 12/29/2010 Tdap 12/02/2024,03/22/2013 Zoster, Recombinant 08/26/2019, 0,06/17/2019,06/17 Family History Medical History Relation Name Comments Coronary artery disease Brother Diabetes Brother Asthma Child Cataracts Father Coronary artery disease Mother Diabetes Mother Stroke Mother Bone cancer Sister Diabetes Sister Relation Name Status Comments Brother Child Alive Father Mother Sister Social History Tobacco Use Types Packs/Day Years Used Date Smoking Tobacco: Former Cigarettes Passive Smoke Exposure: Past Smokeless Tobacco: Never Tobacco Cessation:Counseling Given: Not Answered Alcohol Use Standard Drinks/Week Comments Defer 0 [...] Orientation Straight 05/30/2022 10 :18 AM EDT Last Filed Vital Signs Vital Sign Reading Time Taken Comments Blood Pressure 130/68 04/14/2025 9:14 AM EDT Pulse 68 04/14/2025 9:14 AM EDT Temperature 36 C (96.8 F) 04/14/2025 9:14 AM EDT Respiratory Rate 15 04/14/2025 9:14 AM EDT Oxygen Saturation 100% 04/14/2025 9:14 AM EDT Inhaled Oxygen Concentration - - Weight 51.5 kg (113 lb 9.6 oz) 04/14/2025 9:14 A M EDT Height 147.3 cm (4' 10 ) 04/14/2025 9:14 AM EDT Body Mass Index 23.74 04/14/2025 9:14 AM EDT Plan of Treatment Upcoming Encounters Date Type Department Care Team (Late st Contact Info) Description 07/21/2025 3:00 PM EST Office Visit [facility] [address] [place] [address] Patricia Ingram MD [address] [place] [address] 10/10/2025 11:00 AM EDT Office Visit [facility] [address] [place] [address] Boby, Jasmyne, OD [address] [place] [address] Health Maintenance Due Date Last Done Comments CT Colonography 1955 Colonoscopy 1955 Colorectal Cancer Screening 1955 FIT DNA/Cologuard 1955 FIT 1955 FOBT 1955 Sigmoidoscopy 1955 RSV Patients and Patients Aged 60 years or older (1 - Risk 50-74 years 1-dose series) 2003 Diabetes: Foot Exam 03/27/2025 03/27/2024, 03/27/2024, 03/27/2024, Additional history exists COVID-19 Vaccine ( season) 2025 09/21/2022, 10/04/2021, 01/02/2021, Additional history exists Influenza Vaccine (#1) 2025 , 05/04/2022, 05/27/2021, Additional history exists Diagnostic Breast Imaging 06/11/20252024, 06/03/2024, 10/25/2023 Mammogram 06/11/2025 12/09/2024, 10/2023, 10/25/2023, Additional history exists Alcohol/Substance Use Screening 08/21/2025 08/21/2024 SDOH Screening 08/21/2025 08/21/2024 Depression Monitoring 10/12/2025 04/14/2025, 025 Diabetes: Hemoglobin A1C 10/12/2025 025, 08/21/2024, 03/27/2024, Additional history exists Lipid Panel 03/28/2026 03/28/2025, 0 10/2023, 12/21/2022, Additional history exists Tobacco Screening 04/14/2026 04/14/2025 Eye Exam 05/02/2026 05/02/2025, 03/31, 04/11/2025, Additional history exists DTaP/Tdap/Td Vaccines (3 - Td or Tdap) 12/02/2034 12/02/2024, 03/22/2013, 12/29/2010, Additional history exists Hepatitis B Vaccines Completed 12/17/2013, 03/22/2013, 02/06/2008 Zoster Vaccines Completed 08/26/2019, 08/01, 06/17/2019, Additional history exists Pneumococcal Vaccine: 50+ Years Completed 12/02/2024, 10/23/2018, 04/25/2017, Additional history exists HIB Vaccines Aged Out No longer eligi ble based on patient's age to complete this topic HPV Vaccines Aged Out No longer eligi ble based on patient's age to complete this topic Hepatitis A Vaccines Aged Out No long er eligible based on patient's age to complete this topic Hepatitis C Screening Discontinued IPV Vaccines Aged Out No longer eligi ble based on patient's age to complete this topic Meningococcal B Vaccine Aged Out No l onger eligible based on patient's age to complete this topic Meningococcal Vaccine Aged Out No quita kerri eligible based on patient's age to complete this topic RSV under 20 months Aged Out No longe r eligible based on patient's age to complete this topic Rotavirus Vaccines Aged Out No longer eligible based on patient's age to complete this topic Goals Goal Patient Goal Type Associated Problems Recent Progress Patient-Stated? Author Help patients manage their type 2 diabetes Care Plan Help patients manage their type 2 diabetes No Ulysses Saba Weekly blood pressure task [...] Patient has diabetic neuropathy No Ulysses Saba Procedures Procedure Name Priority Date/Time Associated Diagnosis Comments AMB REFERRAL TO OPHTHALMOLOGY Routine 05/02/2025 Proliferative diabetic retinopathy of both eyes with macular edema associated with type 2 diabetes mellitus (HCC) Epiretinal membrane (ERM) of both eyes POCT GLYCOSYLATED HEMOGLOBIN (HGB A1C) Routine 04/14/2025 9:20 AM EDT Type 2 diabetes mellitus with chronic kidney disease on chronic dialysis, with long-term current use of insulin ([facility]) POCT GLUCOSE Routine 04/14/2025 9:18 AM EDT Type 2 diabetes mellitus with chronic kidney disease on chronic dialysis, with long-term current use of insulin ([facility]) OCT, RETINA - OU - BOTH EYES Routine 04/11/2025 3:30 PM EDT Epiretinal membrane (ERM) of both eyes HIGH SENSITIVITY TROPONIN I Routine 04/08/2025 9:21 AM EDT LIPID PANEL, STANDARD Routine 03/28/2025 4:10 PM EDT BASIC METABOLIC PANEL Routine 03/28/2025 4:10 PM EDT CBC Routine 03/28/2025 4:10 PM EDT BI MAMMOGRAM DIAGNOSTIC TOMOSYNTHESIS BILATERAL Routine 12/09/2024 1:20 PM EDT from Last 3 Months or Most Recently Relevant to Health Maintenance Results * Referral to Ophthalmology (05/02/2025) Jasmyne Landis OD OUTPATIENT REFERRAL ORDERABLE S Final Result * (ABNORMAL) POCT glycosylated hemoglobin (Hgb A1c) (04/14/2025 9:20 AM EDT) Hemoglobin A1C 6.2(A) 4.0 - 5.7 % QC Media Lot # [id number] Lot# Expiration Date ,733,902 Blood Capillary blood specimen / Unknown 04/14/2025 9:20 AM EDT Patricia Ingram MD POINT OF CARE TEST ENTER/EDIT OR DERABLES Final Result * (ABNORMAL) POCT glucose manually resulted (04/14/2025 9:18 AM EDT) Pathologist [facility] Glucose Blood, POC 350(A) 60 - 200 mg/dL QC Media Lot # [id number] Lot# Expiration Date ,[id number] Blood Capillary blood specimen / Unknown 04/14/2025 9:18 AM EDT Patricia Ingram MD POINT OF CARE TEST ENTER/EDIT OR DERABLES Final Result * OCT, Retina - OU - Both Eyes (04/11/2025 3:30 PM EDT) Narrative Larry Landisn, OD - 04/14/2025 2:49 PM EDT Images from the original result were not included. OCT [facility] Optical Coherence Tomography Interpretation Report Measurements: OD OS Macula Thickness 193 microns 216 microns Test findings: OD: Normal foveal contour, epiretinal membrane throughout macula, no cystoid macular edema, no retinal pigment epithelium disruption, no subretinal fluid OS: Shallow foveal contour, epiretinal membrane throughout macula, cystoid macular edema centrally, no retinal pigment epithelium disruption, no subretinal fluid Impression and Plan: Epiretinal membrane in both eyes, cystoid edema in the left eye may be due to epiretinal membrane traction or due to diabetes. 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 Patient educated she needs to be seen by a retinal specialist to monitor her diabetic retinopathy. Will monitor here in 6 months as well. Jasmyne Landis OD OPHTH TOMOGRAPHY Final Result * (ABNORMAL) High Sensitivity Troponin I (04/08/2025 9:21 AM EDT) [facility] TROPONIN I HIGH SENSITIVITY 18.0(H) <3.5 - 17.0 ng/L [facility] Comment:The [place] high sens itivity Troponin-I results should beused in conjunction with other diagnostic information suchas ECG, clinical observations and information, and patientsymptoms to aid in the diagnosis of VA. 04/08/2025 9:21 AM EDT 04/08/2025 9:26 AM EDT Generic External Data Provider LAB BLOOD ORDERAB LES Final Result Performing Organization Address City/[facility]/ZIP Co de Phone Number [facility] [address] [place] [phone] * (ABNORMAL) CBC (03/28/2025 4:10 PM EDT) White Blood Count 4.0(L) 4.8 - 10.8 X10*3/uL [facility] Red Blood Count 2.89(L) 4.20 - 5.50 X10*6/uL [facility] Hemoglobin 9.3(L) 12.0 - 16.0 g/dl [facility] Hematocrit 27.4(L) 37.0 - 47.0 % [facility] Mean Corpuscular Volume 94.8 80.0 - 98.0 fL [facility] Mean Corpuscular Hemoglobin 32.2 27.0 - 33.0 pg [facility] Mean Corpuscular HGB Conc 33.9 31.0 - 35.0 g/dl [facility] Red Cell Distribution Width 15.7 11.0 - 16.0 % [facility] Platelet Count 162 160 - 400 X10*3/uL [facility] Mean Platelet Volume 10.6 9.4 - 12.3 fL [facility] NRBC Pct Auto 0.0 0.0 - 0.2 /100WBC [facility] NRBC Abs Auto 0.000 0.0 - 0.012 X10*3/uL [facility] 03/28/2025 4:10 PM EDT 03/28/2025 4:11 PM EDT us Generic External Data Provider LAB BLOOD ORDERAB LES Final Result Performing Organization Address City/[facility]/ZIP Co de Phone Number [facility] [address] [place] [phone] * Lipid Panel, Standard (03/28/2025 4:10 PM EDT) Pathologist [facility] Triglycerides 79 <150 mg/dL [facility] Comment:Desirable Triglyceri de: less than 150 mg/dLBorderline High Triglyceride 150-199 mg/dLHigh Triglyceride: 200-499 mg/dLVery High Triglyceride: greater than or equal to 5OO mg/dL Cholesterol 143 <200 mg/dL [facility] Comment:Desirable Cholestero l: less than 200 mg/dLBorderline High Cholesterol: 200-239 mg/dLHigh Cholesterol: greater than 239 mg/dL LDL Cholesterol Calculated 76 <100 mg/dL [facility] Comment:Desirable LDL: less than 100 mg/dLNear Optimal/Above Optimal LDL: 110- 129 mg/dLBorderline High LDL: 130-159 mg/dLHigh LDL: 160-189 mg/dLVery High LDL: greater than or equal to 190 mg/dL HDL Cholesterol 52 >40 mg/dL [facility] Comment:Desirable HDL: great er than 40 mg/dL Note: This HDL assay may give artificially low results in patients with liver disease. 03/28/2025 4:10 PM EDT 03/28/2025 4:11 PM EDT us Generic External Data Provider LAB BLOOD ORDERAB LES Final Result Performing Organization Address City/State/[facility] Co de Phone Number [facility] [address] [place] [phone] * (ABNORMAL) Basic Metabolic Panel (03/28/2025 4:10 PM EDT) Sodium 145 135 - 145 mmol/L [facility] Potassium 3.7 3.3 - 5.1 mmol/L [facility] Chloride 103 96 - 108 mmol/L [facility] Carbon Dioxide 30(H) 22 - 29 mmol/L [facility] Anion Gap 16 12 - 20 [facility] Urea Nitrogen (BUN) 23(H) 9 - 16 mg/dL [facility] Creatinine, Serum 4.84(HH) 0.5 - 1.4 mg/dL [facility] Comment:Critical value for t est(s): CREAT Results called to and readback by: KANA Person calling:CLAYTON Date: 03/28/25 Time:1904 Estimated Glomerular Filt Rate 9 [facility] Comment:Chronic Kidney Disea se: Estimated GFR < 60 mL/min/1.56c3Exgunt Kidney Disease: Estimated GFR < 15 mL/min/1.73m2 Glucose 131(H) 60 - 115 mg/dL [facility] Calcium 9.8 8.4 - 10.2 mg/dL [facility] 03/28/2025 4:10 PM EDT 03/28/2025 4:11 PM EDT us Generic External Data Provider LAB BLOOD ORDERAB LES Edited Result - Final [facility] [address] [place] [phone] [phone] * BI Mammogram Diagnostic Tomosynthesis Bilateral (12/09/2024 1:20 PM EDT) Anatomical Region Laterality Modality Breast Bilateral Mammography 12/09/2024 1:20 PM EDT Narrative 12/09/2024 1:56 PM EDT [address] [place] [address] Mammography Report Signed Patient: Kavitha Padilla MR#: [id number] 2 : 1955 Acct:[id number] Age/Sex: 69 / F ADM Date: 12/09/24 Loc: [facility] Attending Dr: Patricia Ingram MD Ordering Physician: Patricia Ingram MD Results: 3.12MProb ably Benign Finding - 12 month F/U Suggested Date of Service: 12/09/24 Follow Up: 12 month diagnos tic follow up Procedure(s): MM tomosynthesis diagnostic BI Accession Number(s): [id number] cc: Patricia Ingram MD EXAMINATION: MM DIAGNOSTIC DIGITAL BREAST TOMOSYNTHESIS, BILATERAL CLINICAL INFORMATION: 1 year follow-up for grouped calcifications in the upper outer quadrant. COMPARISON: Mammography: Comparison is made with relevant prior exams. TECHNIQUE: Digital breast mammography with tomosynthesis is performed in both the craniocaudal and mediolateral oblique views along with computer-aided detection (CAD). FINDINGS: There are scattered areas of fibroglandular density (ACR BI-RADS breast composition Category b). Left: Grouped punctate round calcifications in the upper outer left breast are not significantly changed from prior magnification views dating back for one year. No suspicious masses or other abnormal findings. Right: No suspicious masses calcifications or other abnormal findings. Bilateral circumscribed oval masses which wax and wane consistent with benign fibrocystic changes. Results are provided to the patient at time of visit by the technologist. MM/MM tomosynthesis diagnostic BI IMPRESSION: Right: Negative. Left: Grouped calcifications in the upper outer quadrant are not significantly changed from prior magnification views dating back for one year. Recommend one-year follow-up for further evaluation of stability. ASSESSMENT: BI-RADS BI-RADS 3 - Probably benign finding(s) - 12 month follow-up suggested RECOMMENDATION: 12 month diagnostic follow up This patient's information was entered into a reminder system with a target due date for their next mammogram. Electronically signed by: Padma Coronel DO 12/09/2024 01:53 PM EDT RP Dictated By: Padma Coronel DO Signed By: <Electronically signed by Padma Coronel DO in OV> 12/09/24 1353 DD/ 1320 TD/TT: 12/09/24 1345 Solid Waste Disposal Manager: Procedure Note Donotuseinterpreter, Image - 12/09/2024 [facility] [address] [place] [address] [place] [address] Mammography Report Signed Patient: Kavitha PadillaMR#: [id number] 2 : 1955cct:[id number] Age/Sex: 69 / FADM Date: 12/09/24 Loc: [facility] Attending Dr: Patricia Ingram MD Ordering Physician: Patricia Ingram MDResults: 3.12MProb ably Benign Finding - 12 month F/U Suggested Date of Service: 12/09/24Follow Up: 12 month diagnos tic follow up Procedure(s): MM tomosynthesis diagnostic BI Accession Number(s): [id number] cc: Patricia Ingram MD EXAMINATION: MM DIAGNOSTIC DIGITAL BREAST TOMOSYNTHESIS, BILATERAL CLINICAL INFORMATION: 1 year follow-up for grouped calcifications in the upper outer quadrant. COMPARISON: Mammography: Comparison is made with relevant prior exams. TECHNIQUE: Digital breast mammography with tomosynthesis is performed in both the craniocaudal and mediolateral oblique views along with computer-aided detection (CAD). FINDINGS: There are scattered areas of fibroglandular density (ACR BI-RADS breast composition Category b). Left: Grouped punctate round calcifications in the upper outer left breast are not significantly changed from prior magnification views dating back for one year. No suspicious masses or other abnormal findings. Right: No suspicious masses calcifications or other abnormal findings. Bilateral circumscribed oval masses which wax and wane consistent with benign fibrocystic changes. Results are provided to the patient at time of visit by the technologist. MM/MM tomosynthesis diagnostic BI IMPRESSION: Right: Negative. Left: Grouped calcifications in the upper outer quadrant are not significantly changed from prior magnification views dating back for one year. Recommend one-year follow-up for further evaluation of stability. ASSESSMENT: BI-RADS BI-RADS 3 - Probably benign finding(s) - 12 month follow-up suggested RECOMMENDATION: 12 month diagnostic follow up This patient's information was entered into a reminder system with a target due date for their next mammogram. Electronically signed by: Padma Coronel DO 12/09/2024 01:53 PM EDT Dictated By: Padma Coronel DO Signed By: <Electronically signed by Padma Cornoel DO in OV> 12/09/24 1353 DD/ 1320 TD/TT: 12/09/24 1345 Solid Waste Disposal Manager: Patricia Ingram MD IMG BI PROCEDURES Final Result from Last 3 Months or Most Recently Relevant to Health Maintenance Additional Health Concerns Active Problems Noted Date [...] neuropathy 06/17/2025 Patient has diabetic neuropathy 06/17/[address] [place] [phone] [facility] [employer] (O D-SNP) [address] [place] [address] [phone] [place] [address] [phone] [place] [phone] Care Teams Supervisor [employer] Relationship Specialty Start Date End Date Patricia Ingram MD [address] [place] [address] PCP - General Family Medicine 07/12/12 [facility] 08/03/24
--- OUTSIDE RECORDS SUMMARY | 2025-06-28 12:20 | XMS_ITS | Encounter Summary ---
Author Organization [employer] [facility] Address [address] [facility] 7t [place] [address] Care Team Providers Care Health Analyst Name Role Phone Patricia Ingram MD Primary Care Provider [phone] Reason for Visit * Reason Onset Date Comments fyi 04/09/2025 Encounter Details Date Type Department Care Team ([facility] st Contact Info) Description 04/09/2025 Telephone [facility] MEDICINE [address] [place], [place] [phone] Patricia Ingram MD [address] [place], [place] [phone] fy Social History Tobacco Use Types Packs/Day Years [...] encounter Miscellaneous Notes * Telephone Encounter - Jesi Quiroga RN - 04/11/2025 8:48 AM EDT Pt discharged 04/10/25, discharge diagnosis volume overload, chest pain. 04/14/25 appt still scheduled (already HDF). Updated appt notes. [facility] [place] available under Encounters in chart. * Telephone Encounter - Jesi Quiroga RN - 04/09/2025 4:04 PM EDT Patient currently admitted to [facility] as of 04/09/25 for chest tightness, volume overload, hypertension, shortness of breath. * Telephone Encounter - Jenni Negro - 04/09/2025 2:55 PM EDT Tc from [facility] calling to inform that pt was admitted to hospital yesterday 04/08 Contact [facility]cy at [phone] documented in this encounter Plan of Treatment Upcoming Encounters Date Type Department Care Team (Late st Contact Info) Description 07/21/2025 3:00 PM EST Office Visit [facility] MEDICINE [address] [place] [address] Patricia Ingram MD [address] [place], [place] [phone] 10/10/2025 11:00 AM EDT Office Visit [facility] OPTOMETRY [address] [place], [place] [phone] Jasmyne Landis, OD [address] [place], [place] [phone] documented as of this encounter Visit Diagnoses Not on filedocumented in this encounter Care Teams Health Analyst Relationship Specialty Start Date End Date Patricia Ingram MD [address] [place], [place] [phone] PCP - General Family Medicine 07/12/12 [facility] 08/03/24 documented as of this encounter
--- OUTSIDE RECORDS SUMMARY | 2025-06-28 12:20 | XMS_ITS | Encounter Summary ---
Author Organization [employer] [facility] Address [address] [place] [address] 7t [place] [address] Care Team Providers Care Neuropsychologist Name Role Phone Patricia Ingram MD Primary Care Provider [phone] Encounter Details Date Type Department Care Team (Late Contact Info) Description 03/23/2023 [facility] Health Information Management [address] [place] [address] Patricia Ingram MD 230 [place], [place] [phone] Social History Tobacco Use Types Packs/Day Years [...] Description 07/21/2025 3:00 PM EST Office Visit [facility] MEDICINE [address] [place] [address] Patricia Ingram MD [address] [place] [address] 10/10/2025 11:00 AM EDT Office Visit [facility] OPTOMETRY [address] [place], [place] [phone] Jasmyne Landis, OD [address] [place] [address] documented as of this encounter Visit Diagnoses Not on filedocumented in this encounter Care Teams Neuropsychologist Relationship Specialty Start Date End Date Patricia Ingram MD [address] [place] [address] PCP - General Family Medicine 07/12/12 [facility] 08/03/24 documented as of this encounter
--- OUTSIDE RECORDS SUMMARY | 2025-06-28 12:20 | XMS_ITS | Encounter Summary ---
Author Organization [employer] [facility] Address [address] [facility] 7t [place] [address] Care Team Providers Care Sales Clerk Supervisor Name Role Phone Patricia Ingarm MD Primary Care Provider [phone] Encounter Details Date Type Department Care Team (Late st Contact Info) Description 07/27/2022 Orders Only [facility] CHC MED & PEDS [address] [place], [place] [phone] Gwendolyn Thompson LPN Social History Tobacco Use Types Packs/Day Years [...] PM EST Office Visit [facility] MEDICINE [address] [place] [address] Patricia Ingram MD [address] [place] [address] 10/10/2025 11:00 AM EDT Office Visit [facility] OPTOMETRY [address] [place] [address] Jasmyne Landis, OD [address] [place] [address] documented as of this encounter Visit Diagnoses Not on filedocumented in this encounter Care Teams Sales Clerk Supervisor Relationship Specialty Start Date End Date Patricia Ingram MD [address] [place] [address] PCP - General Family Medicine 07/12/12 [facility] 08/03/24 documented as of this encounter
--- OUTSIDE RECORDS SUMMARY | 2025-06-28 12:20 | XMS_ITS | Encounter Summary ---
Author Organization [employer] Address [address] [facility] 7t [place] [address] Care Team Providers Care Trailer Body Assembler Name Role Phone Patricia Ingram MD Primary Care Provider [phone] Encounter Details Date Type Department Care Team ([facility] st Contact Info) Description 08/22/2024 Orders Only [facility] MEDICINE [address] [place], [place] [phone] Patricia Ingram MD [address] [place], [place] [phone] Social History Tobacco Use Types Packs/Day Years [...] Description 07/21/2025 3:00 PM EST Office Visit [facility] MED[facility]INE [address] [place] [address] Patricia Ingram MD 230 [place] [address] 10/10/2025 11:00 AM EDT Office Visit [facility] OPTOMETRY [address] [place] [address] Boby, Jasmyne, OD 230 [place] [address] documented as of this encounter Visit Diagnoses Not on filedocumented in this encounter Care Teams Trailer Body Assembler Relationship Specialty Start Date End Date Patricia Ingram MD [address] [place] [address] PCP - General Family Medicine 07/12/12 [facility] 08/03/24 documented as of this encounter
--- OUTSIDE RECORDS SUMMARY | 2025-06-28 12:20 | XMS_ITS | Encounter Summary ---
Author Organization [employer] Address [address] [facility] 7t [place] [address] Care Team Providers Care Japanese Professor Name Role Phone Patricia Ingram MD Primary Care Provider [phone] Reason for Visit * Reason Onset Date Comments Reschedule 08/21/2023 Encounter Details Date Type Department Care Team ([facility] st Contact Info) Description 08/21/2023 Telephone [facility] MEDICINE [address] [place], [place] [phone] Patricia Ingram MD [address] [place], [place] [phone] Reschedule Social History Tobacco Use Types Packs/Day Years [...] encounter Miscellaneous Notes * Telephone Encounter - Priscilla Gtz - 08/21/2023 9:45 AM EST Tc from pt son requesting r/s 08/22/2023 appt do to conflict with dialysis appt. documented in this encounter Plan of Treatment Upcoming Encounters Date Type Department Care Team (Late st Contact Info) Description 07/21/2025 3:00 PM EST Office Visit [facility] MEDICINE [address] [place] [address] Patricia nIgram MD [address] [place] [address] 10/10/2025 11:00 AM EDT Office Visit [facility] OPTOMETRY [address] [place] [address] Boby, Jasmyne, OD [address] [place] [address] documented as of this encounter Visit Diagnoses Not on filedocumented in this encounter Care Teams Japanese Professor Relationship Specialty Start Date End Date Patricia Ingram MD [address] [place] [address] PCP - General Family Medicine 07/12/12 [facility] 08/03[facility] documented as of this encounter
--- OUTSIDE RECORDS SUMMARY | 2025-06-28 12:20 | XMS_ITS | Encounter Summary ---
Author Organization [employer] [facility] Address [address] [facility] 7t [place] [address] Care Team Providers Care Dental Technician Name Role Phone Patricia Ingram MD Primary Care Provider [phone] Encounter Details Date Type Department Care Team (Late st Contact Info) Description 08/16/2022 Orders Only [facility] CHC MED & PEDS [address] [place], [place] [phone] Gwendolyn Thompson LPN Social History Tobacco Use [...] 3:00 PM EST Office Visit [facility] MEDICINE [address] [place] [address] Patricia Ingram MD [address] [place] [address] 10/10/2025 11:00 AM EDT Office Visit [facility] OPTOMETRY [address] [place] [address] Jasmyne Landis, OD [address] [place] [address] documented as of this encounter Visit Diagnoses Not on filedocumented in this encounter Care Teams Dental Technician Relationship Specialty Start Date End Date Patricia Ingram MD [address] [place] [address] PCP - General Family Medicine 07/12/12 [facility] 08/03/24 documented as of this encounter
--- OUTSIDE RECORDS SUMMARY | 2025-06-28 12:20 | XMS_ITS | Encounter Summary ---
Author Organization [employer] Address [address] [facility] 7t [place] [address] Care Team Providers Care Technician Inventory Specialist Name Role Phone Patricia Ingram MD Primary Care Provider [phone] Encounter Details Date Type Department Care Team ([facility] st Contact Info) Description 08/23/2024 Orders Only [facility] MEDICINE [address] [place], [place] [phone] Patricia Ingram MD [address] [place], [place] [phone] Social History Tobacco Use Types Packs/Day Years [...] Description 07/21/2025 3:00 PM EST Office Visit [facility] MEDICINE [address] [place] [address] Patricia Ingram MD [address] [place] [address] 10/10/2025 11:00 AM EDT Office Visit [facility] OPTOMETRY [address] [place] [address] Boby, Jasmyne, OD 230 [place] [address] documented as of this encounter Visit Diagnoses Not on filedocumented in this encounter Care Teams Technician Inventory Specialist Relationship Specialty Start Date End Date Patricia Ingram MD [address] [place] [address] PCP - General Family Medicine 07/12/12 [facility] 08/03/24 documented as of this encounter
--- OUTSIDE RECORDS SUMMARY | 2025-06-28 12:20 | XMS_ITS | Encounter Summary ---
Author Organization [employer] [facility] Address [address] [facility] 7t [place] [address] Care Team Providers Care Systems Analyst Name Role Phone Patricia Ingram MD Primary Care Provider [phone] Reason for Visit * Reason Comments Med Refill Encounter Details Date Type Department Care Team ([facility] st Contact Info) Description 11/14/2023 Refill [facility] MEDICINE [address] [place], [place] [phone] Patricia Ingram MD [address] [place], [place] [phone] Constipation, unspecified Social History Tobacco Use Types Packs/Day Years [...] 3:00 PM EST Office Visit [facility] MEDICINE [address] [place] [address] Patricia Ingram MD [address] [place] [address] 10/10/2025 11:00 AM EDT Office Visit [facility] OPTOMETRY [address] [place] [address] Boby, Jasmyne, OD [address] [place] [address] documented as of this encounter Visit Diagnoses Diagnosis Constipation, unspecified documented in this encounter Care Teams Systems Analyst Relationship Specialty Start Date End Date Patricia Ingram MD [address] [place] [address] PCP - General Family Medicine 07/12/12 [facility] 08/03/24 documented as of this encounter
--- OUTSIDE RECORDS SUMMARY | 2025-06-28 12:20 | XMS_ITS | Encounter Summary ---
Author Organization [employer] [facility] Address [address] [place] [address] 7t [place] [address] Care Team Providers Care Student Truck Driver Name Role Phone Patricia Ingram MD Primary Care Provider [phone] Encounter Details Date Type Department Care Team (Late Contact Info) Description 03/29/2023 [facility] Health Information Management [address] [place] [address] Patricia Ingram MD [address] [place], [place] [phone] Social History Tobacco Use Types Packs/Day Years [...] Description 07/21/2025 3:00 PM EST Office Visit [facility] MEDICINE [address] [place] [address] Patricia Ingram MD [address] [place] [address] 10/10/2025 11:00 AM EDT Office Visit [facility] OPTOMETRY [address] [place], [place] [phone] Jasmyne Landis, OD 230 [place] [address] documented as of this encounter Visit Diagnoses Not on filedocumented in this encounter Care Teams Student Truck Driver Relationship Specialty Start Date End Date Patricia Ingram MD [address] [place] [address] PCP - General Family Medicine 07/12/12 [facility] 08/03/24 documented as of this encounter
--- OUTSIDE RECORDS SUMMARY | 2025-06-28 12:20 | XMS_ITS | Encounter Summary ---
Author Organization [employer] [facility] Address [address] [place] [address] 7t [place] [address] Care Team Providers Care Project Landscape Architect Name Role Phone Patricia Ingram MD Primary Care Provider [phone] Reason for Referral * Consultation (Routine) - Closed Specialty Diagnoses / Procedures Referred By Contayden t Referred To Contact Pharmacy Diagnoses Primary hypertension Type 2 diabetes mellitus with chronic kidney disease on chronic dialysis, with long-term current use of insulin ([facility]) Patricia Ingram MD [address] [place] [address] Phone: tel: fax: Referral ID Status Reason Start Date Expiration Date V isits Requested Visits Authorized [id number] Closed Consult and Treat 09/12/2024 09/12/2025 6 0 Encounter Details Date Type Department Care Team (Late st Contact Info) Description 09/12/2024 Orders Only [facility] MEDICINE [address] [place], [place] [phone] Patricia Ingram MD [address] [place], [place] [phone] Primary hypertension (Primary Dx); Type 2 diabetes mellitus with chronic kidney disease on chronic dialysis, with long-term current use of insulin (CMS/HCC) Social History Tobacco Use Types Packs/Day Years [...] Description 07/21/2025 3:00 PM EST Office Visit [facility] MEDICINE [address] [place] [address] Patricia Ingram MD [address] [place] [address] 10/10/2025 11:00 AM EDT Office Visit [facility] OPTOMETRY [address] [place] [address] Jasmyne Landis, DOC [address] [place] [address] Scheduled Referrals Name Type Priority Associated Diagnoses Orde r Schedule Referral to Pharmacy CDTM Outpatient Referral Routine Primary hypertension Type 2 diabetes mellitus with chronic kidney disease on chronic dialysis, with long-term current use of insulin ([facility]/HCC) Ordered: 09/12/2024 documented as of this encounter Visit Diagnoses Diagnosis Primary hypertension- Primary Unspecified essential hypertension Type 2 diabetes mellitus with chronic kidney disease on chronic dialysis, with long-term current use of insulin ([facility]) documented in this encounter Care Teams Project Landscape Architect Relationship Specialty Start Date End Date Patricia Ingram MD [address] [place] [address] PCP - General Family Medicine 07/12/12 [facility] 08/03/24 documented as of this encounter
--- OUTSIDE RECORDS SUMMARY | 2025-06-28 12:20 | XMS_ITS | Encounter Summary ---
Author Organization [facility] [facility] Address [address] [facility] 7t [place] [address] Care Team Providers Care Director Of Collections Name Role Phone Patricia Ingram MD Primary Care Provider [phone] Reason for Visit * Reason Onset Date Comments Hospital Follow-up 08/29/2024 Encounter Details Date Type Department Care Team ([facility] st Contact Info) Description 08/29/2024 Telephone [facility] MEDICINE [address] [place], [place] [phone] Patricia Ingram MD [address] [place], [place] [phone] Hospital Follow-up Social History Tobacco Use Types Packs/Day Years Used Date Smoking Tobacco: Former Cigarettes Passive Smoke Exposure: Past Smokeless Tobacco: Never Alcohol Use Standard Drinks/Week Comments Defer 0 (1 standard drink = 0.6 oz pur e alcohol) Housing Stability Answer Date Recorded What is your housing situation today? I have salinagelacio lnua 08/21/[address] you li [...] * Telephone Encounter - Sherly Zarco - 08/29/2024 2:21 PM EST Tc from pt requesting a HDF appt. Hospital: [facility] Date of admission: 08/26 Discharge date: 08/29 Diagnosed: Gastrointestinal hemorrhage *Send message to [facility] Clinical Care Coordinators (Judi) documented in this encounter Plan of Treatment Upcoming Encounters Date Type Department Care Team (Late st Contact Info) Description 07/21/2025 3:00 PM EST Office Visit [facility] MEDICINE [address] [place] [address] Patricia Ingram MD [address] [place] [address] 10/10/2025 11:00 AM EDT Office Visit [facility] OPTOMETRY [address] [place], [place] [phone] Jasmyne Landis, OD 230 [place] [address] documented as of this encounter Visit Diagnoses Not on filedocumented in this encounter Care Teams Director Of Collections Relationship Specialty Start Date End Date Patricia Ingram MD [address] [place] [address] PCP - General Family Medicine 07/12/12 [facility] 08/03/24 documented as of this encounter
--- OUTSIDE RECORDS SUMMARY | 2025-06-28 12:20 | XMS_ITS | Data Portability ---
Author Organization [employer] [facility], [facility] Address [address] [place] [address] Care Team Providers Care Supervisor Cemetery Workers Name Role Phone [facility] Referring Provider Assessment Encounter Date Assessment Date Assessment LastModified by Organization Details LastModified Time 08/04/2023 08/04/2023 68 yo F with 6 yrs of chronic cough, tessalon perles not working. No CP, SOB, epigastic or abd pain. No tobacco use. VS wnl. Lungs CTAB per medic. Recommended f/up PCP for further w/up. In meantime, will send rx guaifenesin PRN cough. [email or web address] Not available 08/04/2023 16:31:35 Plan of Treatment Reminders Order Date Submit Date Provider Last Modified By Organization Details Last Modified Time Details Appointments None recorded. Lab None recorded. Referral None recorded. Procedures None recorded. Surgeries None recorded. Imaging None recorded. Medication Orders guaifenesin 100 mg/5 mL oral liquid 2023 024 [facility], [address] [place] [address], [phone], 08:28:58 Patient TargetsNo targets recorded. Patient InstructionsNo instructions recorded. Reason for Referral None Reported. Medical Equipment None Reported. Medications Name Sig Start Date Stop Date Status Note LastModified by Organization Details LastModified Time furosemide 40 mg tablet active Not Available Not Available Not Available hydralazine 10 mg tablet active Not Available Not Available No t Available atorvastatin 80 mg tablet active Not Available Not Available No t Available carvedilol 6.25 mg tablet active Not Available Not Available No t Available Vitamin C 500 mg tablet active Not Available Not Available Not Available polyethylene glycol 3350 17 gram oral powder packet active Not Available Not Available Not Available cetirizine 5 mg tablet active Not Available Not Available Not Available hydrocodone 5 mg-acetaminophen 325 mg tablet active Not Available Not Availabl e Not Available senna 8.6 mg tablet active Not Available Not Available Not Available sertraline 100 mg tablet active Not Available Not Available No t Available aspirin 81 mg tablet,delayed release active Not Available Not Available Not Available acetaminophen 500 mg tablet active Not Available Not Availabl e Not Available guaifenesin 100 mg/5 mL oral liquid Take 10mL every 6 hours PRN cough 2023 active Not Available Not Available Not Avai lable prednisolone acetate 1 % eye drops,suspension active Not Available Not Avail able Not Available amlodipine 10 mg tablet active Not Available Not Available Not Available pantoprazole 40 mg tablet,delayed release active Not Available Not Available Not Available docusate sodium 100 mg capsule active Not Available Not Availab le Not Available montelukast 10 mg tablet active Not Available Not Available No t Available bisacodyl 5 mg tablet,delayed release active Not Available Not Available Not Available polyethylene glycol 3350 17 gram/dose oral powder active Not Available Not Available Not Available ezetimibe 10 mg tablet active Not Available Not Available Not Available Novolog FlexPen U-100 Insulin aspart 100 unit/mL (3 mL) subcutaneous active Not Available Not Available Not Available Flovent HFA 110 mcg/actuation aerosol inhaler active Not Available Not Availa ble Not Available cholecalciferol (vitamin D3) 25 mcg (1,000 unit) tablet active Not Available Not Available Not Available Sure Comfort Pen Needle 31 gauge x 3/16 active Not Available Not Available Not Available Symbicort 80 mcg-4.5 mcg/actuation HFA aerosol inhaler active Not Available Not Available Not Available FreeStyle Lite Strips active Not Available Not Available Not Available FeroSul 325 mg (65 mg iron) tablet active Not Available Not Available Not Available Lantus Solostar U-100 Insulin 100 unit/mL (3 mL) subcutaneous pen active Not Available Not Available Not Available sevelamer carbonate 800 mg tablet active Not Available Not Available Not Available melatonin 5 mg tablet active Not Available Not Available Not Available Hemorrhoidal Hygiene 50 % topical pads active Not Available Not Available Not Available TRUEplus Lancets 33 gauge active Not Available Not Available Not Available Eliquis 5 mg tablet TAKE 1 TABLET BY MOUTH TWO TIMES A DAY active Not Available Not Available No t Available Praluent Pen 75 mg/mL subcutaneous pen injector active Not Available Not Available Not Available Vitals Date Recorded Respiratory rate Body temperature Body weight Body height Oxygen saturation Heart rate Systolic And Diastolic Provider Name and Address Organization Details Last Updated DateTime 4 14 /min 98.4 [degF] 40183.8 g 152.4 cm 98 % 90 /min 124/80 mm[Hg] Not Available [employer] - production 4 16:00:19 Social History None recorded. Functional Status None recorded. Mental Status None recorded. Family History Nothing Reported. Medical History No medical history recorded. Gynecological HistoryNo gynecological history recorded. Obstetrics History GPAL:G 0 P 0 0 0 0 Past Encounters Encounter ID Performer Location Encounter Start Date Encounter Closed Date Diagnosis/Indication Diagnosis SNOMED-CT Code Diagnosis ICD10 Code Diagnosis IMO Codes Diagnosis Note [id number] HARIKA WEI MD [facility] - [address] [address] 08/04/2023 16:00:11 08/05/2023 15:33:32 Cough 08364249 R05.9 Health Concerns Section Related Observation LastModified by Organization Detai ls LastModified Time None Recorded Concern Status LastModified by Organization Details LastModified Time None Recorded Advance Directives Directive None Recorded Payers Insurance Date Sequence Insurance Name Policy Number Policy Bergeron Covered Member ID Bergeron Member ID Guarantor Name 03/19/2024 1 [facility] - DOS ON OR AFTER 2022 - DUAL ELIGIBLE - ASSISTED OPTIONS AND ONE CARE (MEDICARE REPLACEMENT/ADV ANTAGE - HMO) Aldries Capas [id number] Aldries Capas Notes Date Note Type Note Provider Name and Address Organization Details Recorded Time 08/04/2023 text/html HPI: HX: 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 Jillian Samuels not helping. .................. .................. .................. .................. .................. .................. .................. ............... [facility] Nurse Triage Notes (Ruperto Preston): Comments: Reviewed - Ivy JEAN .................. .................. .................. .................. .................. .................. .................. ............... Health Care Liaison Note From Roshan Sol: Pt caox3 complains of frquent non productive cough, feels like atickle on her gag reflex that sets off a coughing fit, x6 yers since she had cardiac surgery. Pt denies recent change of difference in presentation of cough. Pt states she has uses benzonatate with no relief. Pt denies pain, n/v/d or any other pain or complaints. Pt pink warm and dry, frequent non productive cough noted. Secondary exam unremarkable, oropharynx normal looking, no swelling or white spots. Lung sounds clear, negative increased work of breathing. No edema, pt reports the cough is worse at night but not connected to being supine. Pt covid negative via rapid POC. [facility] will Rx gufiesen to pt's local pharmacy. Advised to follow up with PCP for PFT and referral to ENT. Red flags, supportive care and pt education discussed. .................. .................. .................. .................. .................. .................. .................. ............... Disposition: Fulfilled HARIKA WEI MD [address] [facility],[address], [place], [address], MARGUERITE - [place] Pass[facility]URME[facility] 08/04/2023 16:57:50 OBGyn Episode No OBEpisode recorded.
--- OUTSIDE RECORDS SUMMARY | 2025-06-28 12:20 | XMS_ITS | Encounter Summary ---
Author Organization [employer] Address [address] [facility] [address] [place] [address] Care Team Providers Care Pail Bailer Name Role Phone Patricia Ingram MD Primary Care Provider [phone] Encounter Details Date Type Department Care Team (Late st Contact Info) Description 10/30/2024 Orders Only [facility] MEDICINE [address] [place], [place] [id number] Patricia Ingram MD [address] [place] [address] Vitamin deficiency Social History Tobacco Use Types [...] Description 07/21/2025 3:00 PM EST Office Visit [facility] MEDICINE [address] [place] [address] Patricia Ingram MD [address] [place] [address] 10/10/2025 11:00 AM EDT Office Visit [facility] OPTOMETRY [address] [place] [address] Boby, Jasmyne, OD [address] [place] [address] documented as of this encounter Visit Diagnoses Diagnosis Vitamin deficiency Unspecified vitamin deficiency documented in this encounter Care Teams Pail Bailer Relationship Specialty Start Date End Date Patricia Ingram MD [address] [place] [address] PCP - General Family Medicine 07/12/12 [facility] 08/03/24 documented as of this encounter
--- OUTSIDE RECORDS SUMMARY | 2025-06-28 12:20 | XMS_ITS | Encounter Summary ---
Author Organization [employer] Address [address] [facility] [address] [place] [address] Care Team Providers Care Transmission Systems Operator Name Role Phone Patricia Ingram MD Primary Care Provider [phone] Reason for Visit * Reason Onset Date Comments Error 08/04/2023 Encounter Details Date Type Department Care Team ([facility] st Contact Info) Description 08/04/2023 Telephone [facility] MED & PEDS [address] [place], [place] [phone] Patricia Ingram MD [address] [place] [address] Error Social History Tobacco Use Types Packs/Day Years [...] Description 07/21/2025 3:00 PM EST Office Visit [facility] MEDICINE [address] [place] [address] Patricia Ingram MD [address] [place] [address] 10/10/2025 11:00 AM EDT Office Visit [facility] OPTOMETRY [address] [place] [address] Boby, Jasmyne, OD [address] [place] [address] documented as of this encounter Visit Diagnoses Not on filedocumented in this encounter Care Teams Transmission Systems Operator Relationship Specialty Start Date End Date Patricia Ingram MD [address] [place] [address] PCP - General Family Medicine 07/12/12 [facility] 08/03/24 documented as of this encounter
--- NOTE | 2025-06-28 12:29 | ECG_ITS ---
Test Reason : Chest Pain Blood Pressure : */* mmHG Vent. Rate : 62 BPM Atrial Rate : 62 BPM P-R Int : 148 ms QRS Dur : 132 ms QT Int : 460 ms P-R-T Axes : 68 3 47 degrees QTcB Int : 466 ms Normal sinus rhythm Right bundle branch block Abnormal ECG No previous ECGs available Referred By: Arden Irby Electronically Signed By: JOSH STEWART
--- NOTE | 2025-06-28 12:42 | ED.GIBLEED ---
HPI - GI Bleed General Chief complaint: Dizziness Stated complaint: [facility] THIS AM, RECTAL BLEEDING/DAYS Time Seen by Provider: 06/28/25 12:31 Source: patient Limitations: no limitations History of Present Illness HPI Narrative: This is a vipul 70 years old on chronic dialysis presented to the emergency department complaining of rectal bleeding. She missed 2 days of dialysis including today because he was bleeding. She has a history of coronary artery disease chronic anemia, diabetes, she is on Brilinta for CAD status post stent MD complaint: blood streaked stool Onset (ago): day(s) (2) Pain Consistency: constant Severity: moderate Relieving factors: none Exacerbating factors: none Associated symptoms: denies other symptoms Related Data Home Medications ?Medication ?Instructions ?Recorded ?Confirmed sertraline 100 mg tablet 150 mg PO DAILY 06/10/20 04/08/25 ascorbic acid (vitamin C) 500 mg 1 tab PO DAILY 12/03/20 04/08/25 tablet (Vitamin C) montelukast 10 mg tablet 10 mg PO BEDTIME 12/03/20 04/08/25 acetaminophen 500 mg tablet 1,000 mg PO Q8H PRN Pain 02/08/23 04/08/25 budesonide-formoterol HFA 80 2 puff inhalation BID 02/08/23 04/08/25 mcg-4.5 mcg/actuation aerosol inhaler (Symbicort) cholecalciferol (vitamin D3) 25 25 mcg PO DAILY 01/01/24 04/08/25 mcg (1,000 unit) tablet docusate sodium 100 mg capsule 100 mg PO BID PRN Constipation 08/13/24 04/08/25 melatonin 5 mg tablet 5 mg PO BEDTIME PRN Insomnia 08/13/24 04/08/25 ticagrelor 90 mg tablet (Brilinta) 90 mg PO BID 08/13/24 04/08/25 insulin aspart U-100 100 unit/mL 3 unit subcut DAILY@1200 08/26/24 04/08/25 (3 mL) subcutaneous pen (Novolog FlexPen U-100 Insulin aspart) insulin aspart U-100 100 unit/mL See Protocol subcut BIDAC@0730,1630 08/26/24 04/08/25 (3 mL) subcutaneous pen (Novolog FlexPen U-100 Insulin aspart) isosorbide mononitrate 30 mg 30 mg PO DAILY 10/02/24 04/08/25 tablet,extended release 24 hr pantoprazole 40 mg tablet,delayed 40 mg PO DAILY@0630 10/10/24 04/08/25 release carvedilol 3.125 mg tablet 3.125 mg PO BID 04/08/25 04/08/25 ezetimibe 10 mg tablet 10 mg PO DAILY 04/08/25 04/08/25 Previous Rx's ?Medication ?Instructions ?Recorded amlodipine 10 mg tablet 10 mg PO DAILY 90 days #90 tabs 12/06/22 atorvastatin 80 mg tablet 80 mg PO BEDTIME #90 tabs 08/17/23 furosemide 40 mg tablet 80 mg (2 x 40 mg) PO BID #240 tabs 10/02/24 insulin glargine 100 unit/mL 5 unit (0.05 mL) subcut BEDTIME 03/11/25 subcutaneous solution (Lantus #10 mL U-100 Insulin) hydralazine 25 mg tablet 25 mg PO TID #270 tabs 06/10/25 Allergies Allergy/AdvReac Type Severity Reaction Status Date / Time No Known Allergies Allergy Verified 06/28/25 12:03 Review of Systems Constitutional: Constitutional: Reports no additional constitutional complaints Cardiovascular: Cardiovascular: Reports no additional cardiovascular complaints Gastrointestinal: Gastrointestinal: Reports as per [facility] Past Medical History Attestation statement: The following information was validated with the patient. 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 End stage chronic kidney disease Edema Atherosclerotic cardiovascular disease SHELIA (obstructive sleep apnea) Hypercalcemia Asthma DJD (degenerative joint disease) Chronic kidney disease Other and unspecified hyperlipidemia Type 2 diabetes mellitus with unspecified complications Essential hypertension Surgical History History of hemorrhoidectomy (01/30/23) H/O colonoscopy Hemorrhoids H/O angioplasty History of tubal ligation History of coronary artery bypass graft (~2017) Family History Family History Father Cardiovascular disease Hypertension Mother Cardiovascular disease Hypertension Social History Social History Household Members: Children Household Members Other:: Son Housing: Apartment Housing Other:: senior apartment Are you a primary physician locums urgent care to a significant other at home: No Do you presently have visiting nurse or other home services: No Alcohol intake: never Patient Tobacco Use Status: Never used Tobacco e-Cigarette/Vaping Use: Never Used Second Hand Smoke Exposure: No Advance Directives: No Advance Directives Information Provided: Yes Advance Directives Date on File: 12/03/20 Do you have a plan to hurt others: No Plan service: No 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al status: disabled 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 Physical Exam Exam: Exam: No acute distress comfortable in the stretcher Vital Signs: Vital Signs: Last Vital Signs Temp 98.2 F 06/28/25 12:01 Pulse 72 06/28/25 12:01 Resp 16 06/28/25 12:01 BP 124/52 L 06/28/25 12:01 Pulse Ox 100 06/28/25 12:01 O2 Del Method Room Air 06/28/25 12:01 BMI result Body Mass Index 21.9 Const: General: cooperative Nutritional Appearance: well nourished Orientation/consciousness: patient oriented x3 Limitations: no limitations HEENT: Head: Yes normal to inspection Ears: hearing grossly normal bilaterally General nose exam: Normal external nose present Face and sinus: Yes normal facial exam Mouth: Normal oral and palatal mucosa present Throat: Yes posterior oropharynx normal Neck: Neck: Yes normal visual inspection Chest: Chest palpation & inspection: normal inspection of the chest Resp: Effort & Inspection: normal respiratory effort Auscultation: clear to auscultation bilaterally Cardio: Jugular venous distension: no JVD Rate: regular rate Rhythm: regular rhythm GI: Inspection: Yes normal to inspection Palpation (GI): Soft to palpation and not firm Rectal Exam - Female: other (Maroon stool) Skin: General skin exam: no rashes or lesions noted Neuro: General: patient oriented x3 Medical Decision Making Medical Decision Making MDM Narrative: Patient is here with rectal bleeding missed 2 days of dialysis she is complaining of shortness of breath will do chest x-ray Differential Diagnosis Differential Diagnoses: The differential diagnosis associated with the presentation includes CHF/GI bleeding/hyperkalemia Admission/Observation Consideration of admission/observation: Escalation of care including admission/observation considered Consult Healthcare Provider Management of the patient was discussed with: Supervisor Insecticide renal(DR Mesa) and GI (DR Kwong) Lab Data MDM Lab Attestation statement: I reviewed the patient's lab results. 06/28/25 12:59 06/28/25 12:59 Labs: Lab Results 06/28/25 Range/Units 12:59 WBC 4.9 (4.8-10.8) X10*3/uL RBC 3.04 L (4.20-5.50) X10*6/uL Hgb 8.9 L (12.0-16.0) g/dl Hct 26.9 L (37.0-47.0) % MCV 88.5 (80.0-98.0) fL MCH 29.3 (27.0-33.0) pg MCHC 33.1 (31.0-35.0) g/dl RDW 15.1 (11.0-16.0) % Plt Count 135 L D (160-400) X10*3/uL MPV 11.0 (9.4-12.3) fL Immature Gran % (Auto) 0.4 (0.0-0.4) % Neut % (Auto) 77.7 H (45-73) % Lymph % (Auto) 17.4 L (20-40) % [place] % (Auto) 3.9 (2-11) % Eos % (Auto) 0.4 (0-4) % Baso % (Auto) 0.2 (0-2) % Lymph # (Auto) 0.9 L (1.2-4.9) X10*3/uL [place] # (Auto) 0.2 (0.1-1.2) X10*3/uL Eos # (Auto) 0.0 (0.0-0.4) X10*3/uL Baso # (Auto) 0.0 (0.0-0.2) X10*3/uL Abs Immat Gran (auto) 0.02 (0.00-0.03) X10*3/uL Absolute Neuts (auto) 3.8 (2.0-8.3) x10*3/uL Absolute Nucleated RBC 0.000 (0.0-0.012) X10*3/uL Nucleated RBC % (auto) 0.0 (0.0-0.2) /100WBC PT 12.7 (11.2-13.5) SEC INR 1.0 (0.9-1.1) Sodium 143 (135-145) mmol/L Potassium 4.7 (3.3-5.1) mmol/L Chloride 97 (96-108) mmol/L Carbon Dioxide 27 (22-29) mmol/L Anion Gap 24 H (12-20) BUN 67 H (9-16) mg/dL Creatinine 8.46 H* (0.5-1.4) mg/dL Estim Creat Clear Calc 4.7 Estimated GFR 5 Random Glucose 208 H (60-115) mg/dL Calcium 10.0 (8.4-10.2) mg/dL Total Bilirubin 0.5 (0.0-1.0) mg/dL AST 24 (5-31) U/L ALT 7 (0-31) U/L Alkaline Phosphatase 113 (39-117) U/L Troponin I High Sens 24.7 H (<3.5-17.0) ng/L Total Protein 7.4 (6.5-8.0) g/dL Albumin 4.1 (3.5-5.0) g/dL Stool Occult Blood POSITIVE (NEGATIVE) Independent Interpretation I performed an independent interpretation of an: EKG Interpretation: Normal sinus rhythm 62 right bundle-branch block External Record Review External record reviewed: Inpatient record Critical Care Time Critical Care Time Critical Care Time: Yes Total Critical Care Time: 60 Attestation: Rectal bleeding/renal failure missing 2 dialysis taking care of the patient speaking with the hospitalist/GI/renal Discharge Plan Discharge Clinical Impression: Rectal bleeding Renal failure, chronic Qualifiers: Chronic kidney disease stage: stage 5 (GFR < 15) Qualified Code(s): N18.5 - Chronic kidney disease, stage 5 Patient Disposition: Admitted As Inpatient Print Language: Hungarian
[2025-06-28 13:05] LABS: MANUAL DIFF FLAG NO
[2025-06-28 13:06] LABS: OBS Int Ctl Valid YES; OBS Lot 0224; OBS1 POSITIVE (NEGATIVE)
[2025-06-28 13:08] LABS: Hematocrit 26.9 % (37.0-47.0); Hemoglobin 8.9 g/dl (12.0-16.0); Imm Gran Abs Auto 0.02 X10*3/uL (0.00-0.03); Imm Gran Pct Auto 0.4 % (0.0-0.4); Lymphocytes Absolute Auto 0.9 X10*3/uL (1.2-4.9); Mean Corpuscular HGB Conc 33.1 g/dl (31.0-35.0); Mean Corpuscular Hemoglobin 29.3 pg (27.0-33.0); Mean Corpuscular Volume 88.5 fL (80.0-98.0); NRBC Abs Auto 0.000 X10*3/uL (0.0-0.012); NRBC Pct Auto 0.0 /100WBC (0.0-0.2); Platelet Count 135 X10*3/uL (160-400); Red Blood Count 3.04 X10*6/uL (4.20-5.50); White Blood Count 4.9 X10*3/uL (4.8-10.8)
[2025-06-28 13:13] LABS: INTERNATIONAL NORM RATIO 1.0 (0.9-1.1); Prothrombin Time 12.7 SEC (11.2-13.5)
[2025-06-28 13:26] LABS: Alanine Aminotransferase 7 U/L (0-31); Albumin Level 4.1 g/dL (3.5-5.0); Alkaline Phosphatase 113 U/L (39-117); Anion Gap 24 (12-20); Aspartate Amino Transferase 24 U/L (5-31); Blood Urea Nitrogen 67 mg/dL (9-16); Calcium 10.0 mg/dL (8.4-10.2); Carbon Dioxide 27 mmol/L (22-29); Chloride 97 mmol/L (96-108); Potassium 4.7 mmol/L (3.3-5.1); Sodium 143 mmol/L (135-145); Total Protein 7.4 g/dL (6.5-8.0)
[2025-06-28 13:28] LABS: Creatinine Clr Calc Pharmacy 4.7; Estimated Glomerular Filt Rate 5
[2025-06-28 13:29] LABS: Troponin-I High Sensitivity 24.7 ng/L (<3.5-17.0)
--- NOTE | 2025-06-28 14:29 | PM.IMHP ---
History of Present Illness Date of Service: 06/28/25 Attending physician on admission: Rizwana Villegas Chief Complaint: rectal bleeding This is a 70 year old female with multiple medical issues including ESRD on hemodialysis and coronary artery disease status post CABG and PCIs on Brilinta who presents to the emergency department with rectal bleeding. History was obtained with the assistance of aerial photograph interpreter via [employer]. Patient reports multiple episodes of bright red blood mixed with stool since Thanks. She has mild associated generalized abdominal pain, she denies any nausea or vomiting. No fever, chills. In the emergency department H/H stable at her baseline at 8.04/25. Hemoccult blood was positive. In the past had EGD showing gstritits and duodenitis. Outpatient cardiology notes from march indicate rectal bleeding and her asa was stopped at that time. Overall the patient is a poor historian and details are limited. 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 End stage chronic kidney disease Edema Atherosclerotic cardiovascular disease SHELIA (obstructive sleep apnea) Hypercalcemia Asthma DJD (degenerative joint disease) Chronic kidney disease Other and unspecified hyperlipidemia Type 2 diabetes mellitus with unspecified complications Essential hypertension Family History Father Cardiovascular disease Hypertension Mother Cardiovascular disease Hypertension Surgical History History of hemorrhoidectomy (01/30/23) H/O colonoscopy Hemorrhoids H/O angioplasty History of tubal ligation History of coronary artery bypass graft (~2017) Social History Household Members: Children Household Members Other:: Son Housing: Apartment Housing Other:: senior apartment Are you a primary customer care voice consultant to a significant other at home: No Do you presently have visiting nurse or other home services: No Alcohol intake: never Patient Tobacco Use Status: Never used Tobacco Smoked in Last 30 Days: No e-Cigarette/Vaping Use: Never Used Second Hand Smoke Exposure: No Use of substances other than those prescribed or required for medical reasons: No Advance Directives: No Advance Directives Information Provided: Yes Advance Directives Date on File: 12/03/20 Do you have a plan to hurt others: No Plan service: No 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al status: disabled 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 Allergies Allergy/AdvReac Type Severity Reaction Status Date / Time No Known Allergies Allergy Verified 06/28/25 12:03 Home Medications ?Medication ?Instructions ?Recorded ?Confirmed ?Last Taken ?Type sertraline 100 mg tablet 150 mg PO DAILY 06/10/20 06/28/25 04/07/25 History ascorbic acid (vitamin C) 500 mg 1 tab PO BID 12/03/20 06/28/25 04/07/25 History tablet (Vitamin C) montelukast 10 mg tablet 10 mg PO BEDTIME 12/03/20 06/28/25 04/07/25 History acetaminophen 500 mg tablet 1,000 mg PO Q8H PRN Pain 02/08/23 06/28/25 Unknown History budesonide-formoterol HFA 80 2 puff inhalation BID 02/08/23 06/28/25 04/07/25 History mcg-4.5 mcg/actuation aerosol inhaler (Symbicort) cholecalciferol (vitamin D3) 25 25 mcg PO DAILY 01/01/24 06/28/25 04/07/25 History mcg (1,000 unit) tablet docusate sodium 100 mg capsule 100 mg PO BID PRN Constipation 08/13/24 06/28/25 Unknown History melatonin 5 mg tablet 5 mg PO BEDTIME PRN Insomnia 08/13/24 06/28/25 Unknown History ticagrelor 90 mg tablet (Brilinta) 90 mg PO BID 08/13/24 06/28/25 04/07/25 History insulin aspart U-100 100 unit/mL See Protocol subcut BIDAC@0730,1630 08/26/24 06/28/25 04/07/25 History (3 mL) subcutaneous pen (Novolog FlexPen U-100 Insulin aspart) isosorbide mononitrate 30 mg 30 mg PO DAILY 10/02/24 06/28/25 04/07/25 History tablet,extended release 24 hr pantoprazole 40 mg tablet,delayed 40 mg PO DAILY@0630 10/10/24 06/28/25 04/07/25 History release carvedilol 3.125 mg tablet 3.125 mg PO BID 04/08/25 06/28/25 04/07/25 History ezetimibe 10 mg tablet 10 mg PO DAILY 04/08/25 06/28/25 04/07/25 History diclofenac sodium 1 % topical gel 1 g topical TID PRN discomfort 06/28/25 06/28/25 Unknown History insulin glargine 100 unit/mL 5 unit subcut BID 06/28/25 06/28/25 06/28/25 History subcutaneous solution (Lantus U-100 Insulin) Physical Exam Vital Signs and Narrative: Vital Signs: Last Vital Signs Temp 98.2 F 06/28/25 12:01 Pulse 72 06/28/25 12:01 Resp 16 06/28/25 12:01 BP 124/52 L 06/28/25 12:01 Pulse Ox 100 06/28/25 12:01 O2 Del Method Room Air 06/28/25 12:01 BMI result Body Mass Index 21.9 Const: General: cooperative, comfortable, alert and awake Nutritional Appearance: average body habitus Resp: Effort & Inspection: normal respiratory effort, able to speak in complete sentences, no respiratory distress and no use of accessory muscles Auscultation: clear to auscultation bilaterally Cardio: Rate: regular rate GI: Inspection: No distended Palpation (GI): Soft to palpation Neuro: General: moves all extremities and CN's II-XI intact bilaterally Extrem: General: No pedal edema Results Labs 06/28/25 14:54 06/28/25 12:59 Labs: Laboratory Results - last 24 hr 06/28/25 12:59 MCV 88.5 MCH 29.3 MCHC 33.1 RDW 15.1 Plt Count 135 L D MPV 11.0 Immature Gran % (Auto) 0.4 Neut % (Auto) 77.7 H Lymph % (Auto) 17.4 L [place] % (Auto) 3.9 Eos % (Auto) 0.4 Baso % (Auto) 0.2 Lymph # (Auto) 0.9 L [place] # (Auto) 0.2 Eos # (Auto) 0.0 Baso # (Auto) 0.0 Abs Immat Gran (auto) 0.02 Absolute Neuts (auto) 3.8 Absolute Nucleated RBC 0.000 Nucleated RBC % (auto) 0.0 PT 12.7 INR 1.0 Anion Gap 24 H Estim Creat Clear Calc 4.7 Estimated GFR 5 Random Glucose 208 H Calcium 10.0 Total Bilirubin 0.5 AST 24 ALT 7 Alkaline Phosphatase 113 Troponin I High Sens 24.7 H Total Protein 7.4 Albumin 4.1 Stool Occult Blood POSITIVE Assessment and Plan (1) Rectal bleeding: Status: Acute (2) ESRD (end stage renal disease): Status: Acute Plan This is a 70-year-old Wallisian-speaking female with history of ESRD on HD TuThSa, DM, CAD s/p CABG and PCI who presents to the emergency department with rectal bleeding GI bleeding GI bleeding in july had egd 08/28 showing gastritis and duodenitis EGD/colo 2022 - hemorrhoids clear liquids diet, hold brilinta trend cbc IV PPI GI consult ESRD on HD [place] missed last session plan for HD now hold lasix for now in light of gi bleed, if bp stable can resume CAD s/p CABG, s/p stent on brilinta, asa stopped in march will hold brilinta for GI bleed continue imdur, statin, zetia, coreg thrombocytopenia appears new follow CBC HTN continue coreg, hydralazine hold norvasc to prevent hypotention in setting of rectal bleeding, but if bp remains high after HD may need to resume in am T2DM hold lantus while on clears SSI, POCs SHELIA intolerant of CPAP Mood Continue sertraline dvt ppx - avoid chemoprophylaxis due to GI bleeding Quality Stroke Does the patient have a stroke diagnosis?: No VTE Prior VTE?: No VTE Risk Level:: Medical - moderate - high VTE Device Contraindication: N/A - Device Ordered VTE Drug Contraindication: Treatment Not Indicated
--- NOTE | 2025-06-28 14:39 | HO.NURTONUR ---
70 yr female admitted for further managment of rectal bleeding and two missed diaylsis treatments this week. Pt comes to ED reporting rectal bleeding x2-3 days. She c/o weakness and dizziness causing her to miss her dialysis treatments on and Today. A&Ox3 VSS, afebrile. (+) hemorrhoids and occult blood noted. Dominican speaking 22G to RAC No BP or venipuncture to DIAMANTEE.
[2025-06-28 14:56] VITALS: BP 170/67; PULSE 66; RESP 16; TEMP 36.6; O2SAT 100
[2025-06-28 14:59] LABS: MANUAL DIFF FLAG NO
[2025-06-28 15:00] LABS: Hematocrit 27.1 % (37.0-47.0); Hemoglobin 9.0 g/dl (12.0-16.0); Imm Gran Abs Auto 0.01 X10*3/uL (0.00-0.03); Imm Gran Pct Auto 0.2 % (0.0-0.4); Lymphocytes Absolute Auto 1.1 X10*3/uL (1.2-4.9); Mean Corpuscular HGB Conc 33.2 g/dl (31.0-35.0); Mean Corpuscular Hemoglobin 29.1 pg (27.0-33.0); Mean Corpuscular Volume 87.7 fL (80.0-98.0); NRBC Abs Auto 0.000 X10*3/uL (0.0-0.012); NRBC Pct Auto 0.0 /100WBC (0.0-0.2); Platelet Count 130 X10*3/uL (160-400); Red Blood Count 3.09 X10*6/uL (4.20-5.50); White Blood Count 5.1 X10*3/uL (4.8-10.8)
--- NOTE | 2025-06-28 15:33 | PHA.MEDREC ---
Pharmacy Consult ? Medication Reconciliation Pharmacy has completed the medication reconciliation.Med rec complete, utilized pharmacy claims history, a list from dialysis center, and zipper measurer to ask patient questions about the insulin dose. Patient does not know names of her medication but was able to compare with pharmacy claims and list from dialysis
--- NOTE | 2025-06-28 15:59 | PC.NURSE ---
Pt leaves ED for dialysis and will proceed to inpatient room assignment afterwards.
[2025-06-28 19:55] VITALS: BMI 21.2
[2025-06-28 19:58] VITALS: BP 178/77; PULSE 66; RESP 16; TEMP 36.1; O2SAT 96
[2025-06-28 19:59] VITALS: BMI 21.2
[2025-06-28 20:07] LABS: Glucose, Whole Blood 87 mg/dL (60-115)
[2025-06-28] MEDS: 0.9 % Sodium Chloride Flush 3 ML SYRINGE IVFLUSH (21:22)
[2025-06-28 23:07] VITALS: BP 130/63; PULSE 62; RESP 16; TEMP 36.7; O2SAT 93
[2025-06-29] VITALS (8 sets, daily range): BP systolic 121–186; BP diastolic 57–78; PULSE 59–86; RESP 16–18; TEMP 36.2–36.8; O2SAT 94–99
--- NOTE | 2025-06-29 05:31 | PC.NURSE ---
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 no swelling of legs. SBP 186 although patient now reveals this symptom has actually been present since just after previous routine vitals. able to sleep. No calf pain with dorsiflexion. Feet are warm, pulses strong on palpation, sensation intact bilaterally. no CP or SOB. difficult to assess cap refill given patient skin color/nail beds pale. MD Melissa aware. presumes neuropathic pain. no intervention at this time. call mendiola in reach, fall prx in place, plan fo care ongoing
--- NOTE | 2025-06-29 05:35 | PC.NURSE ---
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 no swelling of legs. SBP 186 although patient now reveals this symptom has actually been present since just after previous routine vitals when SBP was 130. able to sleep. No calf pain with dorsiflexion. Feet are warm, pulses strong on palpation, sensation intact bilaterally. no CP or SOB. difficult to assess cap refill given patient skin color/nail beds pale. MD Melissa aware. presumes neuropathic pain. intervention for BP - hydral PO. call mendiola in reach, fall prx in place, plan of care ongoing
[2025-06-29 07:01] LABS: Glucose, Whole Blood 92 mg/dL (60-115)
[2025-06-29 07:30] LABS: MANUAL DIFF FLAG NO
[2025-06-29 07:56] LABS: Anion Gap 19 (12-20); Blood Urea Nitrogen 27 mg/dL (9-16); Calcium 9.5 mg/dL (8.4-10.2); Carbon Dioxide 31 mmol/L (22-29); Chloride 97 mmol/L (96-108); Creatinine Clr Calc Pharmacy 8.3; Estimated Glomerular Filt Rate 9; Potassium 3.7 mmol/L (3.3-5.1); Sodium 143 mmol/L (135-145)
[2025-06-29 08:05] LABS: Hematocrit 26.9 % (37.0-47.0); Hemoglobin 8.9 g/dl (12.0-16.0); Imm Gran Abs Auto 0.02 X10*3/uL (0.00-0.03); Imm Gran Pct Auto 0.5 % (0.0-0.4); Lymphocytes Absolute Auto 1.1 X10*3/uL (1.2-4.9); Mean Corpuscular HGB Conc 33.1 g/dl (31.0-35.0); Mean Corpuscular Hemoglobin 29.6 pg (27.0-33.0); Mean Corpuscular Volume 89.4 fL (80.0-98.0); NRBC Abs Auto 0.000 X10*3/uL (0.0-0.012); NRBC Pct Auto 0.0 /100WBC (0.0-0.2); Platelet Count 148 X10*3/uL (160-400); Red Blood Count 3.01 X10*6/uL (4.20-5.50); White Blood Count 4.4 X10*3/uL (4.8-10.8)
[2025-06-29] MEDS: Fluticasone/Vilanterol 100/25 BLST.W.DEV 1 PUFF INHALE (08:20)
--- NOTE | 2025-06-29 08:36 | PM.GICN ---
History of Present Illness Data of Consult Service Date: 06/29/25 Primary Care Provider: Patricia Ingram MD HPI Reason for consult: rectal bleeding 70-year-old Citizen [place]-speaking female with history of ESRD on HD TuThSa, DM, CAD s/p CABG and PCI who I am seeing for assessment for rectal bleeding. Patient came to ED due to rectal bleeding. She reported multiple episodes of bright red blood mixed with stool since Thanksgiving but also noted some darker clots and black parts to the stool. She has mild lower crampy abdominal pain 3/10, but denies any nausea or vomiting. No fever, chills. Her sales support advisor stopped ASA few months back due to rectal bleeding, but kept her on brilinta. Per review of notes seems like she has been having this issue on and off in the past and saw Dr Villegas and Jeremy for similar complaints, but she says this is more persistent and appears worse than baseline. denies taking iliegal drugs or nsaids, herbals Other data: egd 08/28 showing gastritis and duodenitis EGD/colo 2022 - hemorrhoids, but poor prep and full colonic eval was not possible Review of Systems Review of Systems: Constitutional : No Weight loss, No Fever, No Chills ENT/Mouth : No sore throat, No Rhinorrhea Eyes: No Swelling, No Redness Cardiovascular : No Chest Pain, No SOB, No Edema Respiratory : No Cough, No Sputum, No Wheezing Gastrointestinal : see HPI Genitourinary : NO Dysuria, No Urinary Frequency, No Hematuria, No Urgency Musculoskeletal : no joint pain, No Myalgias, No Joint Swelling Skin : No Skin Lesions, No rash Neuro : No Weakness, No Numbness, No Dizziness, No Headache Psych : No Anxiety/Panic, No Depression Heme/Lymph: No Bruising, No Lymphadenopathy Endocrine : No Polyuria, No Polydipsia All other systems reviewed and are negative. 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 End stage chronic kidney disease Edema Atherosclerotic cardiovascular disease SHELIA (obstructive sleep apnea) Hypercalcemia Asthma DJD (degenerative joint disease) Chronic kidney disease Other and unspecified hyperlipidemia Type 2 diabetes mellitus with unspecified complications Essential hypertension Family History Family History Father Cardiovascular disease Hypertension Mother Cardiovascular disease Hypertension Surgical History Surgical History History of hemorrhoidectomy (01/30/23) H/O colonoscopy Hemorrhoids H/O angioplasty History of tubal ligation History of coronary artery bypass graft (~2017) Social History Social History Household Members: Children Household Members Other:: son, dog Housing: Apartment Housing Other:: senior apartment Are you a primary progressive care nurse to a significant other at home: No Do you presently have visiting nurse or other home services: No Alcohol intake: never Patient Tobacco Use Status: Never used Tobacco Smoked in Last 30 Days: No e-Cigarette/Vaping Use: Never Used Second Hand Smoke Exposure: No Use of substances other than those prescribed or required for medical reasons: No Currently Displaying Signs/Symptoms of Drug Intoxication Withdrawal: No Have you been hit, kicked, punched, or otherwise hurt by someone within the past year? If so, by whom?: No Do you feel safe in your current relationship?: No Is there a partner from a previous relationship who is making you feel unsafe now?: No Are you made to feel afraid or neglected: No Advance Directives: No Advance Directives Information Provided: Yes Advance Directives Date on File: 12/03/20 Do you have a plan to hurt others: No Plan Recently lost weight without trying: No How much weight loss: Not applicable Eating poorly because of decreased appetite: No Nutrition screen score: 0 Nutrition Risks: No Nutritional Risk Patient : No : No Poor oral hygiene: No service: No 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al status: disabled 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 Meds Allergies Allergy/AdvReac Type Severity Reaction Status Date / Time No Known Allergies Allergy Verified 06/28/25 12:03 Active Medications: Current Medications Acetaminophen (Acetaminophen 325 Mg Tablet) 650 mg PO Q6H PRN PRN Reason: Pain, Mild 1-3,fever,headache Ascorbic Acid (Ascorbic Acid 500 Mg Tablet) 500 mg PO BID ROSANA Last Admin: 06/28/25 21:22 Dose: 500 mg Atorvastatin Calcium (Atorvastatin Calcium 80 Mg Tablet) 80 mg PO BEDTIME [facility] Last Admin: 06/28/25 21:20 Dose: 80 mg Calcium Carbonate (Calcium Carbonate 750 Mg Tab.Chew) 750 mg PO Q4H PRN PRN Reason: Heartburn Carvedilol (Carvedilol 3.125 Mg Tablet) 3.125 mg PO BID [facility]; Protocol Last Admin: 06/28/25 21:21 Dose: 3.125 mg Dextrose (Dextrose 50 % 25 Gm/50 Ml Syringe) 25 gm IVPUSH Q15M PRN; Protocol PRN Reason: per Hypoglycemia Standing Ord. Ezetimibe (Ezetimibe 10 Mg Tablet) 10 mg PO DAILY [facility] Fluticasone/Vilanterol (Fluticasone/Vilanterol 100/25 Blst.W.Dev) 1 puff INHALE RDAILY [facility] Last Admin: 06/29/25 08:20 Dose: 1 puff Glucose (Glucose Gel 15 Gm Gel..Gram.) 15 gm PO Q15M PRN; Protocol PRN Reason: per Hypoglycemia Standing Ord. Hydralazine HCl (Hydralazine Hcl 25 Mg Tablet) 25 mg PO TID [facility]; Protocol Last Admin: 06/29/25 04:32 Dose: 25 mg Influenza Virus Vaccine (Flu Vacc [id number](6mo Up)/Pf 0.5 Ml Syringe) 0.5 ml IM .ONCE ONE Stop: 06/29/25 09:01 Insulin Human Lispro (Insulin Lispro 100 Unit/Ml 3 Ml Vial) 0 unit SUBCUT QIDACHS [facility]; Protocol Last Admin: 06/29/25 07:03 Dose: Not Given Isosorbide Mononitrate (Isosorbide Mononitrate 30 Mg Tab.Er.24h) 30 mg PO DAILY [facility]; Protocol Magnesium Hydroxide (Milk Of Magnesia 30 Ml Oral.Susp) 30 ml PO DAILY PRN PRN Reason: Constipation Melatonin (Melatonin 3 Mg Tablet) 6 mg PO BEDTIME PRN PRN Reason: Insomnia Montelukast Sodium (Montelukast Sodium 10 Mg Tablet) 10 mg PO BEDTIME [facility] Last Admin: 06/28/25 21:22 Dose: 10 mg Pantoprazole Sodium (Pantoprazole Sodium 40 Mg/10 Ml Vial) 40 mg IVPUSH DAILY@0630 [facility] Last Admin: 06/29/25 06:54 Dose: 40 mg Sertraline HCl (Sertraline Hcl 50 Mg Tablet) 150 mg PO DAILY [facility] Sodium Chloride (0.9 % Sodium Chloride Flush 3 Ml Syringe) 3 ml IVFLUSH QSHIFT [facility] Last Admin: 06/28/25 21:22 Dose: 3 ml Vitamin D (Cholecalciferol (Vitamin D3) 25 Mcg Tablet) 25 mcg PO DAILY [facility] Home Medications ?Medication ?Instructions ?Recorded ?Confirmed ?Last Taken ?Type sertraline 100 mg tablet 150 mg PO DAILY 06/10/20 06/28/25 04/07/25 History ascorbic acid (vitamin C) 500 mg 1 tab PO BID 12/03/20 06/28/25 04/07/25 History tablet (Vitamin C) montelukast 10 mg tablet 10 mg PO BEDTIME 12/03/20 06/28/25 04/07/25 History acetaminophen 500 mg tablet 1,000 mg PO Q8H PRN Pain 02/08/23 06/28/25 Unknown History budesonide-formoterol HFA 80 2 puff inhalation BID 02/08/23 06/28/25 04/07/25 History mcg-4.5 mcg/actuation aerosol inhaler (Symbicort) cholecalciferol (vitamin D3) 25 25 mcg PO DAILY 01/01/24 06/28/25 04/07/25 History mcg (1,000 unit) tablet docusate sodium 100 mg capsule 100 mg PO BID PRN Constipation 08/13/24 06/28/25 Unknown History melatonin 5 mg tablet 5 mg PO BEDTIME PRN Insomnia 08/13/24 06/28/25 Unknown History ticagrelor 90 mg tablet (Brilinta) 90 mg PO BID 08/13/24 06/28/25 04/07/25 History insulin aspart U-100 100 unit/mL See Protocol subcut BIDAC@0730,1630 08/26/24 06/28/25 04/07/25 History (3 mL) subcutaneous pen (Novolog FlexPen U-100 Insulin aspart) isosorbide mononitrate 30 mg 30 mg PO DAILY 10/02/24 06/28/25 04/07/25 History tablet,extended release 24 hr pantoprazole 40 mg tablet,delayed 40 mg PO DAILY@0630 10/10/24 06/28/25 04/07/25 History release carvedilol 3.125 mg tablet 3.125 mg PO BID 04/08/25 06/28/25 04/07/25 History ezetimibe 10 mg tablet 10 mg PO DAILY 04/08/25 06/28/25 04/07/25 History diclofenac sodium 1 % topical gel 1 g topical TID PRN discomfort 06/28/25 06/28/25 Unknown History insulin glargine 100 unit/mL 5 unit subcut BID 06/28/25 06/28/25 06/28/25 History subcutaneous solution (Lantus U-100 Insulin) Physical Exam Exam: Exam: EXAM: GENERAL: The patient is well developed and nontoxic. VITAL SIGNS:see workflow HEENT: Nonicteric sclerae, PERRLA, EOMI. Oropharynx clear. Moist mucous membranes. Conjunctivae appear well perfused. No thyroid mass. CHEST: Chest wall is nontender. HEART: Regular rate and rhythm without murmurs. LUNGS: Clear to auscultation bilaterally. ABDOMEN: Soft, positive bowel sounds, nontender, no organomegaly.no flank tenderness SKIN: No rash, no excessive bruising, petechiae, or purpura. NEUROLOGIC: Cranial nerves II-XII intact without motor/sensory deficit. Psych: normal affect AV fisula noted Vital Signs: Vital Signs: Last Vital Signs Temp 98.3 F 06/29/25 07:41 Pulse 86 06/29/25 08:21 Resp 18 06/29/25 08:21 BP 171/74 H 06/29/25 07:41 Pulse Ox 98 06/29/25 07:41 O2 Del Method Room Air 06/29/25 07:41 BMI result Body Mass Index 21.2 Results Labs 06/29/25 07:06 06/29/25 07:06 Labs: Short CBC 06/28/25 06/28/25 06/29/25 Range/Units 12:59 14:54 07:06 WBC 4.9 5.1 4.4 L (4.8-10.8) X10*3/uL Hgb 8.9 L 9.0 L 8.9 L (12.0-16.0) g/dl Hct 26.9 L 27.1 L 26.9 L (37.0-47.0) % Plt Count 135 L D 130 L 148 L (160-400) X10*3/uL BMP 06/28/25 06/29/25 12:59 07:06 Sodium 143 143 Potassium 4.7 3.7 D Chloride 97 97 Carbon Dioxide 27 31 H BUN 67 H 27 H Creatinine 8.46 H* 4.80 H* Calcium 10.0 9.5 Liver Function 06/28/25 Range/Units 12:59 Total Bilirubin 0.5 (0.0-1.0) mg/dL AST 24 (5-31) U/L ALT 7 (0-31) U/L Alkaline Phosphatase 113 (39-117) U/L Albumin 4.1 (3.5-5.0) g/dL Assessment and Plan (1) Rectal bleeding: Status: Acute Plan 1/ Acute blood loss anemia, with stable HGB, likely hemorrhoidal bleeding ddx: low level diverticular bleed, proctitis, upper GI bleed with rapid transit, AVM-HGB has thus far been stable--had sme bleeding this morning as well PLAN: 1/ EGD and colo tomorrow 2/ if ok with cards to hold brilinta, hold-otherwise continue Procedures Date of Service Date of Service: 06/29/25
[2025-06-29] MEDS: 0.9 % Sodium Chloride Flush 3 ML SYRINGE IVFLUSH ×2 (09:08→21:39)
[2025-06-29] MEDS: Flu Vacc TS2025-26(6mo up)/PF 0.5 ML SYRINGE IM (09:09)
--- NOTE | 2025-06-29 09:37 | MHC.CM.PN ---
CM met with Patient and addressed IMM with her with the assist of a [facility] Electric Arc Furnace Operator. 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 Patient attends a [facility] and goes to HD Q //SAT in [place]. Home/resume said services is the goal and CM has initiated and will follow for dc planning. PCP is Dr. Patricia Ingram and [facility] will transport at dc.
[2025-06-29 11:30] LABS: Glucose, Whole Blood 186 mg/dL (60-115)
--- NOTE | 2025-06-29 12:42 | PM.CNCAR ---
History of Present Illness History of Present Illness Date of Service: 06/29/25 Requesting physician: Rizwana Villegas Chief complaint: GI Bleeding Narrative: Pleasant 70-year-old lady who is presenting with bright blood per rectum. She has known history of coronary disease with previous bypass surgery. She also had PCI from left main into left circumflex in July 2024. She is on aspirin and Brilinta. She has end-stage renal disease and is on hemodialysis. She also has moderate aortic valve stenosis. She is saying that she does not have any chest discomfort but does get some shortness of breath. She also has some orthopnea like episodes. She underwent hemodialysis yesterday. Overall appears fairly euvolemic at this point. Blood pressure reasonably controlled. She is in need of endoscopy. 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 End stage chronic kidney disease Edema Atherosclerotic cardiovascular disease SHELIA (obstructive sleep apnea) Hypercalcemia Asthma DJD (degenerative joint disease) Chronic kidney disease Other and unspecified hyperlipidemia Type 2 diabetes mellitus with unspecified complications Essential hypertension Family History Family History Father Cardiovascular disease Hypertension Mother Cardiovascular disease Hypertension Surgical History Surgical History History of hemorrhoidectomy (01/30/23) H/O colonoscopy Hemorrhoids H/O angioplasty History of tubal ligation History of coronary artery bypass graft (~2017) Social History Social History Household Members: Children Household Members Other:: son, dog Housing: Apartment Housing Other:: senior apartment Are you a primary emergency care attendant to a significant other at home: No Do you presently have visiting nurse or other home services: No Alcohol intake: never Patient Tobacco Use Status: Never used Tobacco Smoked in Last 30 Days: No e-Cigarette/Vaping Use: Never Used Second Hand Smoke Exposure: No Use of substances other than those prescribed or required for medical reasons: No Currently Displaying Signs/Symptoms of Drug Intoxication Withdrawal: No Have you been hit, kicked, punched, or otherwise hurt by someone within the past year? If so, by whom?: No Do you feel safe in your current relationship?: No Is there a partner from a previous relationship who is making you feel unsafe now?: No Are you made to feel afraid or neglected: No Advance Directives: No Advance Directives Information Provided: Yes Advance Directives Date on File: 12/03/20 Do you have a plan to hurt others: No Plan Recently lost weight without trying: No How much weight loss: Not applicable Eating poorly because of decreased appetite: No Nutrition screen score: 0 Nutrition Risks: No Nutritional Risk Patient : No : No Poor oral hygiene: No service: No 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al status: disabled 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 Allergies Allergy/AdvReac Type Severity Reaction Status Date / Time No Known Allergies Allergy Verified 06/28/25 12:03 Active Medications: Current Medications Acetaminophen (Acetaminophen 325 Mg Tablet) 650 mg PO Q6H PRN PRN Reason: Pain, Mild 1-3,fever,headache Last Admin: 06/29/25 09:18 Dose: 650 mg Ascorbic Acid (Ascorbic Acid 500 Mg Tablet) 500 mg PO BID [facility] Last Admin: 06/29/25 09:08 Dose: 500 mg Atorvastatin Calcium (Atorvastatin Calcium 80 Mg Tablet) 80 mg PO BEDTIME [facility] Last Admin: 06/28/25 21:20 Dose: 80 mg Calcium Carbonate (Calcium Carbonate 750 Mg Tab.Chew) 750 mg PO Q4H PRN PRN Reason: Heartburn Carvedilol (Carvedilol 3.125 Mg Tablet) 3.125 mg PO BID [facility]; Protocol Last Admin: 06/29/25 09:08 Dose: 3.125 mg Dextrose (Dextrose 50 % 25 Gm/50 Ml Syringe) 25 gm IVPUSH Q15M PRN; Protocol PRN Reason: per Hypoglycemia Standing Ord. Ezetimibe (Ezetimibe 10 Mg Tablet) 10 mg PO DAILY [facility] Last Admin: 06/29/25 09:08 Dose: 10 mg Fluticasone/Vilanterol (Fluticasone/Vilanterol 100/25 Blst.W.Dev) 1 puff INHALE RDAILY [facility] Last Admin: 06/29/25 08:20 Dose: 1 puff Glucose (Glucose Gel 15 Gm Gel..Gram.) 15 gm PO Q15M PRN; Protocol PRN Reason: per Hypoglycemia Standing Ord. Hydralazine HCl (Hydralazine Hcl 25 Mg Tablet) 25 mg PO TID [facility]; Protocol Last Admin: 06/29/25 09:08 Dose: 25 mg Insulin Human Lispro (Insulin Lispro 100 Unit/Ml 3 Ml Vial) 0 unit SUBCUT QIDACHS [facility]; Protocol Last Admin: 06/29/25 11:32 Dose: 2 unit Isosorbide Mononitrate (Isosorbide Mononitrate 30 Mg Tab.Er.24h) 30 mg PO DAILY [facility]; Protocol Last Admin: 06/29/25 09:08 Dose: 30 mg Magnesium Hydroxide (Milk Of Magnesia 30 Ml Oral.Susp) 30 ml PO DAILY PRN PRN Reason: Constipation Melatonin (Melatonin 3 Mg Tablet) 6 mg PO BEDTIME PRN PRN Reason: Insomnia Montelukast Sodium (Montelukast Sodium 10 Mg Tablet) 10 mg PO BEDTIME [facility] Last Admin: 06/28/25 21:22 Dose: 10 mg Pantoprazole Sodium (Pantoprazole Sodium 40 Mg/10 Ml Vial) 40 mg IVPUSH BID@0630,1630 [facility] Polyethylene Glycol/Electrolytes (Peg 3350/Na Sulf,Bicarb,Cl/Kcl 4,000 Ml Soln.Recon) 4,000 ml PO ONCE ONE Stop: 06/29/25 18:01 Sertraline HCl (Sertraline Hcl 50 Mg Tablet) 150 mg PO DAILY [facility] Last Admin: 06/29/25 09:08 Dose: 150 mg Sodium Chloride (0.9 % Sodium Chloride Flush 3 Ml Syringe) 3 ml IVFLUSH QSHIFT [facility] Last Admin: 06/29/25 09:08 Dose: 3 ml Vitamin D (Cholecalciferol (Vitamin D3) 25 Mcg Tablet) 25 mcg PO DAILY [facility] Last Admin: 06/29/25 09:08 Dose: 25 mcg Home Medications ?Medication ?Instructions ?Recorded ?Confirmed ?Last Taken ?Type sertraline 100 mg tablet 150 mg PO DAILY 06/10/20 06/28/25 04/07/25 History ascorbic acid (vitamin C) 500 mg 1 tab PO BID 12/03/20 06/28/25 04/07/25 History tablet (Vitamin C) montelukast 10 mg tablet 10 mg PO BEDTIME 12/03/20 06/28/25 04/07/25 History acetaminophen 500 mg tablet 1,000 mg PO Q8H PRN Pain 02/08/23 06/28/25 Unknown History budesonide-formoterol HFA 80 2 puff inhalation BID 02/08/23 06/28/25 04/07/25 History mcg-4.5 mcg/actuation aerosol inhaler (Symbicort) cholecalciferol (vitamin D3) 25 25 mcg PO DAILY 01/01/24 06/28/25 04/07/25 History mcg (1,000 unit) tablet docusate sodium 100 mg capsule 100 mg PO BID PRN Constipation 08/13/24 06/28/25 Unknown History melatonin 5 mg tablet 5 mg PO BEDTIME PRN Insomnia 08/13/24 06/28/25 Unknown History ticagrelor 90 mg tablet (Brilinta) 90 mg PO BID 08/13/24 06/28/25 04/07/25 History insulin aspart U-100 100 unit/mL See Protocol subcut BIDAC@0730,1630 08/26/24 06/28/25 04/07/25 History (3 mL) subcutaneous pen (Novolog FlexPen U-100 Insulin aspart) isosorbide mononitrate 30 mg 30 mg PO DAILY 10/02/24 06/28/25 04/07/25 History tablet,extended release 24 hr pantoprazole 40 mg tablet,delayed 40 mg PO DAILY@0630 10/10/24 06/28/25 04/07/25 History release carvedilol 3.125 mg tablet 3.125 mg PO BID 04/08/25 06/28/25 04/07/25 History ezetimibe 10 mg tablet 10 mg PO DAILY 04/08/25 06/28/25 04/07/25 History diclofenac sodium 1 % topical gel 1 g topical TID PRN discomfort 06/28/25 06/28/25 Unknown History insulin glargine 100 unit/mL 5 unit subcut BID 06/28/25 06/28/25 06/28/25 History subcutaneous solution (Lantus U-100 Insulin) Physical Exam Vital Signs: Vital Signs: Last Vital Signs Temp 97.2 F 06/29/25 11:19 Pulse 65 06/29/25 11:19 Resp 18 06/29/25 11:19 BP 121/57 L 06/29/25 11:19 Pulse Ox 98 06/29/25 11:19 O2 Del Method Room Air 06/29/25 11:19 BMI result Body Mass Index 21.2 GENERAL APPEARANCE: in no acute distress, pleasant. NECK: no carotid bruit, no jugular venous distention. SKIN: no suspicious lesions, warm and dry. HEART: Grade 2 to 3/6 murmur aortic area with preserved 2nd heart sound, regular rate and rhythm. LUNGS: clear to auscultation bilaterally. ABDOMEN: soft, nontender. EXTREMITIES: no edema. PERIPHERAL PULSES: equal. NEUROLOGIC: No gross deficits, AAO X 3 Objective Labs and Meds 06/29/25 07:06 06/29/25 07:06 Lab results: Laboratory Results - last 24 hr 06/28/25 06/28/25 06/28/25 12:59 14:54 19:52 WBC 4.9 5.1 RBC 3.04 L 3.09 L Hgb 8.9 L 9.0 L Hct 26.9 L 27.1 L MCV 88.5 87.7 MCH 29.3 29.1 MCHC 33.1 33.2 RDW 15.1 15.2 Plt Count 135 L D 130 L MPV 11.0 10.6 Immature Gran % (Auto) 0.4 0.2 Neut % (Auto) 77.7 H 73.0 Lymph % (Auto) 17.4 L 21.9 [place] % (Auto) 3.9 4.3 Eos % (Auto) 0.4 0.4 Baso % (Auto) 0.2 0.2 Lymph # (Auto) 0.9 L 1.1 L [place] # (Auto) 0.2 0.2 Eos # (Auto) 0.0 0.0 Baso # (Auto) 0.0 0.0 Abs Immat Gran (auto) 0.02 0.01 Absolute Neuts (auto) 3.8 3.7 Absolute Nucleated RBC 0.000 0.000 Nucleated RBC % (auto) 0.0 0.0 PT 12.7 INR 1.0 Sodium 143 Potassium 4.7 Chloride 97 Carbon Dioxide 27 Anion Gap 24 H BUN 67 H Creatinine 8.46 H* Estim Creat Clear Calc 4.7 Estimated GFR 5 POC Glucose 87 Random Glucose 208 H Calcium 10.0 Total Bilirubin 0.5 AST 24 ALT 7 Alkaline Phosphatase 113 Troponin I High Sens 24.7 H Total Protein 7.4 Albumin 4.1 Stool Occult Blood POSITIVE 06/29/25 06/29/25 06/29/25 06:56 07:06 11:23 WBC 4.4 L RBC 3.01 L Hgb 8.9 L Hct 26.9 L MCV 89.4 MCH 29.6 MCHC 33.1 RDW 14.9 Plt Count 148 L MPV 11.1 Immature Gran % (Auto) 0.5 H Neut % (Auto) 67.9 Lymph % (Auto) 24.8 [place] % (Auto) 5.2 Eos % (Auto) 1.4 Baso % (Auto) 0.2 Lymph # (Auto) 1.1 L [place] # (Auto) 0.2 Eos # (Auto) 0.1 Baso # (Auto) 0.0 Abs Immat Gran (auto) 0.02 Absolute Neuts (auto) 3.0 Absolute Nucleated RBC 0.000 Nucleated RBC % (auto) 0.0 PT INR Sodium 143 Potassium 3.7 D Chloride 97 Carbon Dioxide 31 H Anion Gap 19 BUN 27 H Creatinine 4.80 H* Estim Creat Clear Calc 8.3 Estimated GFR 9 POC Glucose 92 186 H Random Glucose 89 Calcium 9.5 Total Bilirubin AST ALT Alkaline Phosphatase Troponin I High Sens Total Protein Albumin Stool Occult Blood Assessment and Plan (1) Essential hypertension: Status: Acute (2) Status post coronary artery bypass graft: Status: Acute (3) Rectal bleeding: Status: Acute Plan Pleasant 70-year-old lady presenting with bright red blood per rectum. No abdominal discomfort. She previously had GI bleeding which was conservatively managed. She has known history of coronary disease with previous bypass surgery as well as left main into circumflex PCI in July 2024. She has been on aspirin and Brilinta. Agree with holding antiplatelet therapy currently. Intermediate risk for perioperative complications and can proceed with EGD/colonoscopy. If GI finds her stable for antiplatelet therapy then we will consider Plavix monotherapy going forward. Thank you for allowing me to participate in the care of your patient. Please feel free to contact me if you have any questions. Procedures Date of Service Date of Service: 06/29/25
[2025-06-29 15:17] LABS: Hematocrit 25.9 % (37.0-47.0); Hemoglobin 8.5 g/dl (12.0-16.0); Mean Corpuscular HGB Conc 32.8 g/dl (31.0-35.0); Mean Corpuscular Hemoglobin 28.9 pg (27.0-33.0); Mean Corpuscular Volume 88.1 fL (80.0-98.0); NRBC Abs Auto 0.000 X10*3/uL (0.0-0.012); NRBC Pct Auto 0.0 /100WBC (0.0-0.2); Platelet Count 158 X10*3/uL (160-400); Red Blood Count 2.94 X10*6/uL (4.20-5.50); White Blood Count 5.3 X10*3/uL (4.8-10.8)
[2025-06-29 16:15] LABS: Glucose, Whole Blood 119 mg/dL (60-115)
--- NOTE | 2025-06-29 16:40 | HO.PM.IMPN ---
Subjective Subjective Date of Service: 06/29/25 Interval History: Repeated episodes of tarry black stool Patient has persistent epigastric pain - not worse than prior. Review of Systems Review of Systems: Yes all other systems are reviewed and are negative Physical Exam Exam: Exam: General: A&O x3, oriented to time place person and situation, comfortable, no pain Cardiac: S1, S2 auscultated with no S3/4, no MRG. Well perfused. Respiratory: Normal breath sounds auscultated throughout all lung zones, without wheezing, rales. Normal rate. GI/ : Abdominal pain to palpation of the epigastrium, no hepatosplenomegaly MSK: Normal ambulation without pain at bony prominences or musculature Neurological: Normal neurological examination on overview, without obvious CN II-XII abnormalities. Vital Signs: Vital Signs: Last Vital Signs Temp 97.6 F 06/29/25 15:24 Pulse 60 06/29/25 15:24 Resp 18 06/29/25 15:24 BP 157/70 H 06/29/25 15:24 Pulse Ox 99 06/29/25 15:24 O2 Del Method Room Air 06/29/25 15:24 BMI result Body Mass Index 21.2 Objective Data Active Medications Acetaminophen (Acetaminophen 325 Mg Tablet) 650 mg PO Q6H PRN PRN Reason: Pain, Mild 1-3,fever,headache Last Admin: 06/29/25 09:18 Dose: 650 mg Documented By: KATIA Ascorbic Acid (Ascorbic Acid 500 Mg Tablet) 500 mg PO BID [facility] Last Admin: 06/29/25 09:08 Dose: 500 mg Documented By: KATIA Atorvastatin Calcium (Atorvastatin Calcium 80 Mg Tablet) 80 mg PO BEDTIME [facility] Last Admin: 06/28/25 21:20 Dose: 80 mg Documented By: LAFLAMC Calcium Carbonate (Calcium Carbonate 750 Mg Tab.Chew) 750 mg PO Q4H PRN PRN Reason: Heartburn Carvedilol (Carvedilol 3.125 Mg Tablet) 3.125 mg PO BID [facility]; Protocol Last Admin: 06/29/25 09:08 Dose: 3.125 mg Documented By: KATIA Dextrose (Dextrose 50 % 25 Gm/50 Ml Syringe) 25 gm IVPUSH Q15M PRN; Protocol PRN Reason: per Hypoglycemia Standing Ord. Ezetimibe (Ezetimibe 10 Mg Tablet) 10 mg PO DAILY [facility] Last Admin: 06/29/25 09:08 Dose: 10 mg Documented By: KATIA Fluticasone/Vilanterol (Fluticasone/Vilanterol 100/25 Blst.W.Dev) 1 puff INHALE RDAILY [facility] Last Admin: 06/29/25 08:20 Dose: 1 puff Documented By: BREA Glucose (Glucose Gel 15 Gm Gel..Gram.) 15 gm PO Q15M PRN; Protocol PRN Reason: per Hypoglycemia Standing Ord. Hydralazine HCl (Hydralazine Hcl 25 Mg Tablet) 25 mg PO TID [facility]; Protocol Last Admin: 06/29/25 15:28 Dose: 25 mg Documented By: KATIA Insulin Human Lispro (Insulin Lispro 100 Unit/Ml 3 Ml Vial) 0 unit SUBCUT QIDACHS [facility]; Protocol Last Admin: 06/29/25 16:15 Dose: Not Given Documented By: KATIA Non-Admin Reason: No Insulin Coverage Isosorbide Mononitrate (Isosorbide Mononitrate 30 Mg Tab.Er.24h) 30 mg PO DAILY [facility]; Protocol Last Admin: 06/29/25 09:08 Dose: 30 mg Documented By: KATIA Magnesium Hydroxide (Milk Of Magnesia 30 Ml Oral.Susp) 30 ml PO DAILY PRN PRN Reason: Constipation Melatonin (Melatonin 3 Mg Tablet) 6 mg PO BEDTIME PRN PRN Reason: Insomnia Montelukast Sodium (Montelukast Sodium 10 Mg Tablet) 10 mg PO BEDTIME [facility] Last Admin: 06/28/25 21:22 Dose: 10 mg Documented By: BRETLAMGisele Pantoprazole Sodium (Pantoprazole Sodium 40 Mg/10 Ml Vial) 40 mg IVPUSH BID@0630,1630 [facility] Polyethylene Glycol/Electrolytes (Peg 3350/Na Sulf,Bicarb,Cl/Kcl 4,000 Ml Soln.Recon) 4,000 ml PO ONCE ONE Stop: 06/29/25 18:01 Sertraline HCl (Sertraline Hcl 50 Mg Tablet) 150 mg PO DAILY [facility] Last Admin: 06/29/25 09:08 Dose: 150 mg Documented By: KATIA Sodium Chloride (0.9 % Sodium Chloride Flush 3 Ml Syringe) 3 ml IVFLUSH QSHIFT [facility] Last Admin: 06/29/25 15:00 Dose: Not Given Documented By: KATIA Non-Admin Reason: Previously Administered Vitamin D (Cholecalciferol (Vitamin D3) 25 Mcg Tablet) 25 mcg PO DAILY [facility] Last Admin: 06/29/25 09:08 Dose: 25 mcg Documented By: KATIA Labs 06/29/25 14:53 06/29/25 07:06 Labs: Laboratory Results - last 24 hr 06/28/25 06/29/25 06/29/25 19:52 06:56 07:06 MCV 89.4 MCH 29.6 MCHC 33.1 RDW 14.9 Plt Count 148 L MPV 11.1 Immature Gran % (Auto) 0.5 H Neut % (Auto) 67.9 Lymph % (Auto) 24.8 [place] % (Auto) 5.2 Eos % (Auto) 1.4 Baso % (Auto) 0.2 Lymph # (Auto) 1.1 L [place] # (Auto) 0.2 Eos # (Auto) 0.1 Baso # (Auto) 0.0 Abs Immat Gran (auto) 0.02 Absolute Neuts (auto) 3.0 Absolute Nucleated RBC 0.000 Nucleated RBC % (auto) 0.0 Anion Gap 19 Estim Creat Clear Calc 8.3 Estimated GFR 9 POC Glucose 87 92 Random Glucose 89 Calcium 9.5 06/29/25 06/29/25 06/29/25 11:23 14:53 16:11 MCV 88.1 MCH 28.9 MCHC 32.8 RDW 15.1 Plt Count 158 L MPV 10.5 Immature Gran % (Auto) Neut % (Auto) Lymph % (Auto) [place] % (Auto) Eos % (Auto) Baso % (Auto) Lymph # (Auto) [place] # (Auto) Eos # (Auto) Baso # (Auto) Abs Immat Gran (auto) Absolute Neuts (auto) Absolute Nucleated RBC 0.000 Nucleated RBC % (auto) 0.0 Anion Gap Estim Creat Clear Calc Estimated GFR POC Glucose 186 H 119 H Random Glucose Calcium Assessment and Plan (1) Essential hypertension: Status: Acute (2) Abnormal echocardiogram: Status: Acute (3) ACS (acute coronary syndrome): Status: Acute (4) Status post coronary artery bypass graft: Status: Acute (5) Type 2 diabetes mellitus with unspecified complications: Status: Acute (6) Diabetic retinopathy: Status: Acute (7) Upper GI bleeding: Status: Acute (8) Proctitis: Status: Acute (9) Rectal bleeding: Status: Acute (10) Chronic kidney disease: Status: Acute (11) ESRD (end stage renal disease): Status: Acute (12) Anemia of chronic disease: Status: Acute (13) Symptomatic anemia: Status: Acute (14) SHELIA (obstructive sleep apnea): Status: Acute Plan 70-year-old Kinyarwanda-speaking female with history of ESRD on HD TuThSa, DM, CAD s/p CABG and PCI who presents to the emergency department with rectal bleeding GI bleeding GI bleeding in july had egd 08/28 showing gastritis and duodenitis EGD/colo 2022 - hemorrhoids clear liquids diet, hold brilinta trend cbc IV PPI GI consult ESRD on HD tuthsa missed last session plan for HD now hold lasix for now in light of gi bleed, if bp stable can resume CAD s/p CABG, s/p stent on brilinta, asa stopped in march will hold brilinta for GI bleed continue imdur, statin, zetia, coreg thrombocytopenia appears new follow CBC HTN continue coreg, hydralazine hold norvasc to prevent hypotention in setting of rectal bleeding, but if bp remains high after HD may need to resume in am T2DM hold lantus while on clears SSI, POCs SHELIA intolerant of CPAP Mood Continue sertraline Total time managing care of this patient today: 45 minutes. Quality Stroke Does the patient have a stroke diagnosis?: No VTE Prior VTE?: No VTE Risk Level:: Medical - moderate - high VTE Device Contraindication: N/A - Device Ordered VTE Drug Contraindication: Treatment Not Indicated
[2025-06-29] MEDS: PEG 3350/Na Sulf,Bicarb,Cl/KCL 4,000 ML SOLN.RECON 4000 ML PO (17:49)
--- NOTE | 2025-06-29 19:04 | PM.EVENT ---
Event Note Date of Service: 06/29/25 Event Note: Was notified of critical imagin. Asymmetric mural thickening of the distal sigmoid colon; colon carcinoma can not be excluded. 2. Diverticulosis. 3. Chronic renal insufficiency. GI notified Likely we will get EGD and colonoscopy tomorrow Prep ordered NPO midnight (except prep ) Time Spent With Patient Time: Total time managing care of this patient today ____ minutes.
[2025-06-29 21:24] LABS: Glucose, Whole Blood 123 mg/dL (60-115)
[2025-06-30] VITALS (10 sets, daily range): BP systolic 104–183; BP diastolic 40–79; PULSE 62–72; RESP 16–20; TEMP 36–36.7; O2SAT 94–99
--- NOTE | 2025-06-30 04:16 | PC.NURSE ---
Pt scheduled for EGD/colonoscopy in am. Pt stated they are unable to drink prep and that it is making them feel nauseous. Pt educated on importance of prep and why it needs to be taken. MD aware and stated to refer to GI in am on further options . Pt made aware that colonoscopy will not be able to take place tomorrow in the morning. Pt agreed and understood teaching. Call mendiola within reach.
[2025-06-30 06:55] LABS: MANUAL DIFF FLAG NO
[2025-06-30 07:02] LABS: Hematocrit 25.8 % (37.0-47.0); Hemoglobin 8.4 g/dl (12.0-16.0); INTERNATIONAL NORM RATIO 1.1 (0.9-1.1); Imm Gran Abs Auto 0.02 X10*3/uL (0.00-0.03); Imm Gran Pct Auto 0.4 % (0.0-0.4); Lymphocytes Absolute Auto 1.1 X10*3/uL (1.2-4.9); Mean Corpuscular HGB Conc 32.6 g/dl (31.0-35.0); Mean Corpuscular Hemoglobin 28.7 pg (27.0-33.0); Mean Corpuscular Volume 88.1 fL (80.0-98.0); NRBC Abs Auto 0.000 X10*3/uL (0.0-0.012); NRBC Pct Auto 0.0 /100WBC (0.0-0.2); Platelet Count 151 X10*3/uL (160-400); Prothrombin Time 13.6 SEC (11.2-13.5); Red Blood Count 2.93 X10*6/uL (4.20-5.50); White Blood Count 4.6 X10*3/uL (4.8-10.8)
[2025-06-30 07:21] LABS: Alanine Aminotransferase < 6 U/L (0-31); Albumin Level 3.7 g/dL (3.5-5.0); Alkaline Phosphatase 92 U/L (39-117); Anion Gap 20 (12-20); Aspartate Amino Transferase 16 U/L (5-31); Blood Urea Nitrogen 45 mg/dL (9-16); Calcium 9.5 mg/dL (8.4-10.2); Carbon Dioxide 31 mmol/L (22-29); Chloride 94 mmol/L (96-108); Creatinine Clr Calc Pharmacy 6.0; Estimated Glomerular Filt Rate 6; Potassium 4.0 mmol/L (3.3-5.1); Sodium 141 mmol/L (135-145); Total Protein 6.5 g/dL (6.5-8.0)
[2025-06-30] MEDS: Fluticasone/Vilanterol 100/25 BLST.W.DEV 1 PUFF INHALE (07:25)
[2025-06-30 08:02] LABS: Glucose, Whole Blood 110 mg/dL (60-115)
--- NOTE | 2025-06-30 08:45 | P.CONAN_ITS ---
HPI - Anesthesia Eval Consult details Narrative: 70 yr old female for EGD, colon Cardiology consult 06/29/25: Intermediate risk for perioperative complications and can proceed with EGD/colonoscopy; okay to hold ASA/antiplatelet therapy now due to suspected GI bleed. -Aortic stenosis: echo from 02/2025 shows mean gradient 14; AV area 0.98 -H/O coronary disease with previous bypass surgery, had PCI from left main into left circumflex in July 2024, on aspirin and Brilinta. ESRD on hemodyalsis: Shamar, Silverio, Sat SHELIA: cannot tolerate CPAP PMFSH Active Problems Active Problems: All Active Problems Renal failure, chronic (Acute) Rectal bleeding (Acute) Severe anemia (Acute) Symptomatic anemia (Acute) Esophagitis (Acute) Proctitis (Acute) Gastritis (Acute) S/P cardiac cath (Acute) Severe anemia (Acute) ACS (acute coronary syndrome) (Acute) Upper GI bleeding (Acute) Symptomatic anemia (Acute) Atherosclerotic cardiovascular disease (Acute) Osteopenia (Acute) Osteoporosis screening (Acute) Well woman exam (Acute) Acquired trigger finger of both index fingers (Acute) ESRD (end stage renal disease) (Acute) Status post coronary artery bypass graft (Acute) Abnormal echocardiogram (Acute) Essential hypertension (Acute) Pneumonia (Acute) Pleural effusion (Acute) Depression with anxiety (Acute) Panic disorder (Acute) GERD (gastroesophageal reflux disease) (Acute) Diabetic retinopathy (Acute) Pernicious anemia (Acute) Anemia of chronic disease (Acute) Preop examination (Acute) Colon cancer screening (Acute) Osteoarthritis of left shoulder (Acute) Rotator cuff tendonitis (Acute) HPV in female (Acute) Hypercalcemia (Acute) Edema (Acute) DJD (degenerative joint disease) (Acute) Chronic kidney disease (Acute) Asthma (Acute) Type 2 diabetes mellitus with unspecified complications (Acute) Other and unspecified hyperlipidemia (Acute) SHELIA (obstructive sleep apnea) (Acute) Past Medical History 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 End stage chronic kidney disease Edema Atherosclerotic cardiovascular disease SHELIA (obstructive sleep apnea) Hypercalcemia Asthma DJD (degenerative joint disease) Chronic kidney disease Other and unspecified hyperlipidemia Type 2 diabetes mellitus with unspecified complications Essential hypertension Family History Family History Father Cardiovascular disease Hypertension Mother Cardiovascular disease Hypertension Family history of problems with anesthesia: No Surgical History Surgical History History of hemorrhoidectomy (01/30/23) H/O colonoscopy Hemorrhoids H/O angioplasty History of tubal ligation History of coronary artery bypass graft (~2017) History of Problems with Anesthesia: No Social History Social History Household Members: Children Household Members Other:: son, dog Housing: Apartment Housing Other:: senior apartment Are you a primary hospice care transitions coordinator to a significant other at home: No Do you presently have visiting nurse or other home services: No Alcohol intake: never Patient Tobacco Use Status: Never used Tobacco Smoked in Last 30 Days: No e-Cigarette/Vaping Use: Never Used Second Hand Smoke Exposure: No Use of substances other than those prescribed or required for medical reasons: No Currently Displaying Signs/Symptoms of Drug Intoxication Withdrawal: No Have you been hit, kicked, punched, or otherwise hurt by someone within the past year? If so, by whom?: No Do you feel safe in your current relationship?: No Is there a partner from a previous relationship who is making you feel unsafe now?: No Are you made to feel afraid or neglected: No Advance Directives: No Advance Directives Information Provided: Yes Advance Directives Date on File: 12/03/20 Do you have a plan to hurt others: No Plan Recently lost weight without trying: No How much weight loss: Not applicable Eating poorly because of decreased appetite: No Nutrition screen score: 0 Nutrition Risks: No Nutritional Risk Patient : No : No Poor oral hygiene: No service: No 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al status: disabled 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 Meds Allergies Allergy/AdvReac Type Severity Reaction Status Date / Time No Known Allergies Allergy Verified 06/28/25 12:03 Active Medications: Current Medications Acetaminophen (Acetaminophen 325 Mg Tablet) 650 mg PO Q6H PRN PRN Reason: Pain, Mild 1-3,fever,headache Last Admin: 06/29/25 21:32 Dose: 650 mg Ascorbic Acid (Ascorbic Acid 500 Mg Tablet) 500 mg PO BID ROSANA Last Admin: 06/29/25 21:32 Dose: 500 mg Atorvastatin Calcium (Atorvastatin Calcium 80 Mg Tablet) 80 mg PO BEDTIME [facility] Last Admin: 06/29/25 21:32 Dose: 80 mg Calcium Carbonate (Calcium Carbonate 750 Mg Tab.Chew) 750 mg PO Q4H PRN PRN Reason: Heartburn Carvedilol (Carvedilol 3.125 Mg Tablet) 3.125 mg PO BID [facility]; Protocol Last Admin: 06/29/25 21:38 Dose: Not Given Dextrose (Dextrose 50 % 25 Gm/50 Ml Syringe) 25 gm IVPUSH Q15M PRN; Protocol PRN Reason: per Hypoglycemia Standing Ord. Ezetimibe (Ezetimibe 10 Mg Tablet) 10 mg PO DAILY [facility] Last Admin: 06/29/25 09:08 Dose: 10 mg Fluticasone/Vilanterol (Fluticasone/Vilanterol 100/25 Blst.W.Dev) 1 puff INHALE RDAILY [facility] Last Admin: 06/30/25 07:25 Dose: 1 puff Glucose (Glucose Gel 15 Gm Gel..Gram.) 15 gm PO Q15M PRN; Protocol PRN Reason: per Hypoglycemia Standing Ord. Hydralazine HCl (Hydralazine Hcl 25 Mg Tablet) 25 mg PO TID [facility]; Protocol Last Admin: 06/29/25 21:32 Dose: 25 mg Insulin Human Lispro (Insulin Lispro 100 Unit/Ml 3 Ml Vial) 0 unit SUBCUT QIDACHS [facility]; Protocol Last Admin: 06/29/25 21:38 Dose: Not Given Isosorbide Mononitrate (Isosorbide Mononitrate 30 Mg Tab.Er.24h) 30 mg PO DAILY [facility]; Protocol Last Admin: 06/29/25 09:08 Dose: 30 mg Magnesium Hydroxide (Milk Of Magnesia 30 Ml Oral.Susp) 30 ml PO DAILY PRN PRN Reason: Constipation Melatonin (Melatonin 3 Mg Tablet) 6 mg PO BEDTIME PRN PRN Reason: Insomnia Last Admin: 06/29/25 23:50 Dose: 6 mg Montelukast Sodium (Montelukast Sodium 10 Mg Tablet) 10 mg PO BEDTIME [facility] Last Admin: 06/29/25 21:32 Dose: 10 mg Ondansetron HCl (Ondansetron Hcl 4 Mg/2 Ml Vial) 4 mg IVPUSH Q8H PRN PRN Reason: Nausea and Vomiting Pantoprazole Sodium (Pantoprazole Sodium 40 Mg/10 Ml Vial) 40 mg IVPUSH BID@0630,1630 [facility] Last Admin: 06/30/25 06:02 Dose: 40 mg Sertraline HCl (Sertraline Hcl 50 Mg Tablet) 150 mg PO DAILY [facility] Last Admin: 06/29/25 09:08 Dose: 150 mg Sodium Chloride (0.9 % Sodium Chloride Flush 3 Ml Syringe) 3 ml IVFLUSH QSHIFT [facility] Last Admin: 06/29/25 21:39 Dose: 3 ml Vitamin D (Cholecalciferol (Vitamin D3) 25 Mcg Tablet) 25 mcg PO DAILY [facility] Last Admin: 06/29/25 09:08 Dose: 25 mcg Home Medications ?Medication ?Instructions ?Recorded ?Confirmed ?Last Taken ?Type sertraline 100 mg tablet 150 mg PO DAILY 06/10/2004/07/25 History ascorbic acid (vitamin C) 500 mg 1 tab PO BID 12/03/20 06/28/25 04/07/25 History tablet (Vitamin C) montelukast 10 mg tablet 10 mg PO BEDTIME 12/03/2004/07/25 History acetaminophen 500 mg tablet 1,000 mg PO Q8H PRN Pain 0 02/08/23 06/28/25 Unknown History budesonide-formoterol HFA 80 2 puff inhalation BID 07/2206/28/25 04/07/25 History mcg-4.5 mcg/actuation aerosol inhaler (Symbicort) cholecalciferol (vitamin D3) 25 25 mcg PO DAILY 06/28/25 04/07/25 History mcg (1,000 unit) tablet docusate sodium 100 mg capsule 100 mg PO BID PRN Const ipation 08/13/24 06/28/25 Unknown History melatonin 5 mg tablet 5 mg PO BEDTIME PRN Insomnia 08/13/24 06/28/25 Unknown History ticagrelor 90 mg tablet (Brilinta) 90 mg PO BID 06/28/25 04/07/25 History insulin aspart U-100 100 unit/mL See Protocol subcut B IDAC@0730,1630 08/26/24 06/28/25 04/07/25 History (3 mL) subcutaneous pen (Novolog FlexPen U-100 Insulin aspart) isosorbide mononitrate 30 mg 30 mg PO DAILY 10/02/24 1 08/28/24 04/07/25 History tablet,extended release 24 hr pantoprazole 40 mg tablet,delayed 40 mg PO DAILY@0630 10/10/24 06/28/25 04/07/25 History release carvedilol 3.125 mg tablet 3.125 mg PO BID 04/08/2504/07/25 History ezetimibe 10 mg tablet 10 mg PO DAILY 04/08/2506/0104/07/25 History diclofenac sodium 1 % topical gel 1 g topical TID PRN discomfort 06/28/25 06/28/25 Unknown History insulin glargine 100 unit/mL 5 unit subcut BID 5 06/28/25 06/28/25 History subcutaneous solution (Lantus U-100 Insulin) Exam Height,Weight and Vital Signs: Height 5 ft 2 in Weight 52.5 kg Last Vital Signs Temp 96.8 F 06/30/25 07:34 Pulse 65 06/30/25 07:34 Resp 18 06/30/25 07:34 BP 148/72 H 06/30/25 07:34 Pulse Ox 94 06/30/25 07:34 O2 Del Method Room Air 06/30/25 07:34 Pertinent Lab Results Pertinent Lab Results: Laboratory Tests 06/28/25 06/28/25 06/28/25 12:59 14:54 19:52 WBC 4.9 5.1 RBC 3.04 L 3.09 L Hgb 8.9 L 9.0 L Hct 26.9 L 27.1 L MCV 88.5 87.7 MCH 29.3 29.1 MCHC 33.1 33.2 RDW 15.1 15.2 Plt Count 135 L D 130 L MPV 11.0 10.6 Immature Gran % (Auto) 0.4 0.2 Neut % (Auto) 77.7 H 73.0 Lymph % (Auto) 17.4 L 21.9 [place] % (Auto) 3.9 4.3 Eos % (Auto) 0.4 0.4 Baso % (Auto) 0.2 0.2 Lymph # (Auto) 0.9 L 1.1 L [place] # (Auto) 0.2 0.2 Eos # (Auto) 0.0 0.0 Baso # (Auto) 0.0 0.0 Abs Immat Gran (auto) 0.02 0.01 Absolute Neuts (auto) 3.8 3.7 Absolute Nucleated RBC 0.000 0.000 Nucleated RBC % (auto) 0.0 0.0 PT 12.7 INR 1.0 Sodium 143 Potassium 4.7 Chloride 97 Carbon Dioxide 27 Anion Gap 24 H BUN 67 H Creatinine 8.46 H* Estim Creat Clear Calc 4.7 Estimated GFR 5 POC Glucose 87 Random Glucose 208 H Calcium 10.0 Total Bilirubin 0.5 AST 24 ALT 7 Alkaline Phosphatase 113 Troponin I High Sens 24.7 H Total Protein 7.4 Albumin 4.1 Stool Occult Blood POSITIVE 06/29/25 06/29/25 06/29/25 06:56 07:06 11:23 WBC 4.4 L RBC 3.01 L Hgb 8.9 L Hct 26.9 L MCV 89.4 MCH 29.6 MCHC 33.1 RDW 14.9 Plt Count 148 L MPV 11.1 Immature Gran % (Auto) 0.5 H Neut % (Auto) 67.9 Lymph % (Auto) 24.8 [place] % (Auto) 5.2 Eos % (Auto) 1.4 Baso % (Auto) 0.2 Lymph # (Auto) 1.1 L [place] # (Auto) 0.2 Eos # (Auto) 0.1 Baso # (Auto) 0.0 Abs Immat Gran (auto) 0.02 Absolute Neuts (auto) 3.0 Absolute Nucleated RBC 0.000 Nucleated RBC % (auto) 0.0 PT INR Sodium 143 Potassium 3.7 D Chloride 97 Carbon Dioxide 31 H Anion Gap 19 BUN 27 H Creatinine 4.80 H* Estim Creat Clear Calc 8.3 Estimated GFR 9 POC Glucose 92 186 H Random Glucose 89 Calcium 9.5 Total Bilirubin AST ALT Alkaline Phosphatase Troponin I High Sens Total Protein Albumin Stool Occult Blood 06/29/25 06/29/25 06/29/25 14:53 16:11 21:00 WBC 5.3 RBC 2.94 L Hgb 8.5 L Hct 25.9 L MCV 88.1 MCH 28.9 MCHC 32.8 RDW 15.1 Plt Count 158 L MPV 10.5 Immature Gran % (Auto) Neut % (Auto) Lymph % (Auto) [place] % (Auto) Eos % (Auto) Baso % (Auto) Lymph # (Auto) [place] # (Auto) Eos # (Auto) Baso # (Auto) Abs Immat Gran (auto) Absolute Neuts (auto) Absolute Nucleated RBC 0.000 Nucleated RBC % (auto) 0.0 PT INR Sodium Potassium Chloride Carbon Dioxide Anion Gap BUN Creatinine Estim Creat Clear Calc Estimated GFR POC Glucose 119 H 123 H Random Glucose Calcium Total Bilirubin AST ALT Alkaline Phosphatase Troponin I High Sens Total Protein Albumin Stool Occult Blood 06/30/25 06/30/25 06:34 07:40 WBC 4.6 L RBC 2.93 L Hgb 8.4 L Hct 25.8 L MCV 88.1 MCH 28.7 MCHC 32.6 RDW 14.8 Plt Count 151 L MPV 11.0 Immature Gran % (Auto) 0.4 Neut % (Auto) 66.8 Lymph % (Auto) 24.3 [place] % (Auto) 7.0 Eos % (Auto) 1.3 Baso % (Auto) 0.2 Lymph # (Auto) 1.1 L [place] # (Auto) 0.3 Eos # (Auto) 0.1 Baso # (Auto) 0.0 Abs Immat Gran (auto) 0.02 Absolute Neuts (auto) 3.1 Absolute Nucleated RBC 0.000 Nucleated RBC % (auto) 0.0 PT 13.6 H INR 1.1 Sodium 141 Potassium 4.0 Chloride 94 L Carbon Dioxide 31 H Anion Gap 20 BUN 45 H Creatinine 6.58 H* Estim Creat Clear Calc 6.0 Estimated GFR 6 POC Glucose 110 Random Glucose 111 Calcium 9.5 Total Bilirubin 0.5 AST 16 ALT < 6 Alkaline Phosphatase 92 Troponin I High Sens Total Protein 6.5 Albumin 3.7 Stool Occult Blood Narrative Narrative: ECHO 02/2025 Conclusions: - The left ventricular systolic function is normal. The calculated ejection fraction is 60% by biplane method. - The basal inferior and basal inferolateral segments are akinetic. - Overall, probable moderate aortic stenosis. Assessment and Plan Final Anesthetic Review Family History of Problems with Anesthesia: No History of Problems with Anesthesia: No
[2025-06-30] MEDS: 0.9 % Sodium Chloride Flush 3 ML SYRINGE IVFLUSH ×2 (08:53→21:20)
[2025-06-30 11:13] LABS: Glucose, Whole Blood 98 mg/dL (60-115)
--- NOTE | 2025-06-30 14:02 | HO.ANESPROP2 ---
[facility] Active Problems Active Problems: All Active Problems Renal failure, chronic (Acute) Rectal bleeding (Acute) Severe anemia (Acute) Symptomatic anemia (Acute) Esophagitis (Acute) Proctitis (Acute) Gastritis (Acute) S/P cardiac cath (Acute) Severe anemia (Acute) ACS (acute coronary syndrome) (Acute) Upper GI bleeding (Acute) Symptomatic anemia (Acute) Atherosclerotic cardiovascular disease (Acute) Osteopenia (Acute) Osteoporosis screening (Acute) Well woman exam (Acute) Acquired trigger finger of both index fingers (Acute) ESRD (end stage renal disease) (Acute) Status post coronary artery bypass graft (Acute) Abnormal echocardiogram (Acute) Essential hypertension (Acute) Pneumonia (Acute) Pleural effusion (Acute) Depression with anxiety (Acute) Panic disorder (Acute) GERD (gastroesophageal reflux disease) (Acute) Diabetic retinopathy (Acute) Pernicious anemia (Acute) Anemia of chronic disease (Acute) Preop examination (Acute) Colon cancer screening (Acute) Osteoarthritis of left shoulder (Acute) Rotator cuff tendonitis (Acute) HPV in female (Acute) Hypercalcemia (Acute) Edema (Acute) DJD (degenerative joint disease) (Acute) Chronic kidney disease (Acute) Asthma (Acute) Type 2 diabetes mellitus with unspecified complications (Acute) Other and unspecified hyperlipidemia (Acute) SHELIA (obstructive sleep apnea) (Acute) Past Medical History 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 End stage chronic kidney disease Edema Atherosclerotic cardiovascular disease SHELIA (obstructive sleep apnea) Hypercalcemia Asthma DJD (degenerative joint disease) Chronic kidney disease Other and unspecified hyperlipidemia Type 2 diabetes mellitus with unspecified complications Essential hypertension Family History Family History Father Cardiovascular disease Hypertension Mother Cardiovascular disease Hypertension Family history of problems with anesthesia: No Surgical History Surgical History History of hemorrhoidectomy (01/30/23) H/O colonoscopy Hemorrhoids H/O angioplasty History of tubal ligation History of coronary artery bypass graft (~2018) History of Problems with Anesthesia: No Social History Social History Household Members: Children Household Members Other:: son, dog Housing: Apartment Housing Other:: senior apartment Are you a primary caregivers non medical to a significant other at home: No Do you presently have visiting nurse or other home services: No Alcohol intake: never Patient Tobacco Use Status: Never used Tobacco Smoked in Last 30 Days: No e-Cigarette/Vaping Use: Never Used Second Hand Smoke Exposure: No Use of substances other than those prescribed or required for medical reasons: No Currently Displaying Signs/Symptoms of Drug Intoxication Withdrawal: No Have you been hit, kicked, punched, or otherwise hurt by someone within the past year? If so, by whom?: No Do you feel safe in your current relationship?: No Is there a partner from a previous relationship who is making you feel unsafe now?: No Are you made to feel afraid or neglected: No Are you DNR?: No Advance Directives: No Advance Directives Information Provided: Yes Advance Directives Date on File: 12/03/20 Do you have a plan to hurt others: No Plan Recently lost weight without trying: No How much weight loss: Not applicable Eating poorly because of decreased appetite: No Nutrition screen score: 0 Nutrition Risks: No Nutritional Risk Patient : No : No Poor oral hygiene: No service: No 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al status: disabled 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 Meds Allergies Allergy/AdvReac Type Severity Reaction Status Date / Time No Known Allergies Allergy Verified 06/28/25 12:03 Active Medications: Current Medications Acetaminophen (Acetaminophen 325 Mg Tablet) 650 mg PO Q6H PRN PRN Reason: Pain, Mild 1-3,fever,headache Last Admin: 06/30/25 08:50 Dose: 650 mg Ascorbic Acid (Ascorbic Acid 500 Mg Tablet) 500 mg PO BID [facility] Last Admin: 06/30/25 08:51 Dose: 500 mg Atorvastatin Calcium (Atorvastatin Calcium 80 Mg Tablet) 80 mg PO BEDTIME ROSANA Last Admin: 06/29/25 21:32 Dose: 80 mg Calcium Carbonate (Calcium Carbonate 750 Mg Tab.Chew) 750 mg PO Q4H PRN PRN Reason: Heartburn Carvedilol (Carvedilol 3.125 Mg Tablet) 3.125 mg PO BID ROSANA; Protocol Last Admin: 06/30/25 08:52 Dose: 3.125 mg Dextrose (Dextrose 50 % 25 Gm/50 Ml Syringe) 25 gm IVPUSH Q15M PRN; Protocol PRN Reason: per Hypoglycemia Standing Ord. Ezetimibe (Ezetimibe 10 Mg Tablet) 10 mg PO DAILY [facility] Last Admin: 06/30/25 08:51 Dose: 10 mg Fluticasone/Vilanterol (Fluticasone/Vilanterol 100/25 Blst.W.Dev) 1 puff INHALE RDAILY [facility] Last Admin: 06/30/25 07:25 Dose: 1 puff Glucose (Glucose Gel 15 Gm Gel..Gram.) 15 gm PO Q15M PRN; Protocol PRN Reason: per Hypoglycemia Standing Ord. Hydralazine HCl (Hydralazine Hcl 25 Mg Tablet) 25 mg PO TID [facility]; Protocol Last Admin: 06/30/25 08:51 Dose: 25 mg Insulin Human Lispro (Insulin Lispro 100 Unit/Ml 3 Ml Vial) 0 unit SUBCUT QIDACHS [facility]; Protocol Last Admin: 06/30/25 13:18 Dose: Not Given Isosorbide Mononitrate (Isosorbide Mononitrate 30 Mg Tab.Er.24h) 30 mg PO DAILY [facility]; Protocol Last Admin: 06/30/25 08:50 Dose: 30 mg Magnesium Hydroxide (Milk Of Magnesia 30 Ml Oral.Susp) 30 ml PO DAILY PRN PRN Reason: Constipation Melatonin (Melatonin 3 Mg Tablet) 6 mg PO BEDTIME PRN PRN Reason: Insomnia Last Admin: 06/29/25 23:50 Dose: 6 mg Montelukast Sodium (Montelukast Sodium 10 Mg Tablet) 10 mg PO BEDTIME [facility] Last Admin: 06/29/25 21:32 Dose: 10 mg Ondansetron HCl (Ondansetron Hcl 4 Mg/2 Ml Vial) 4 mg IVPUSH Q8H PRN PRN Reason: Nausea and Vomiting Last Admin: 06/30/25 08:51 Dose: 4 mg Pantoprazole Sodium (Pantoprazole Sodium 40 Mg/10 Ml Vial) 40 mg IVPUSH BID@0630,1630 [facility] Last Admin: 06/30/25 06:02 Dose: 40 mg Sertraline HCl (Sertraline Hcl 50 Mg Tablet) 150 mg PO DAILY [facility] Last Admin: 06/30/25 08:51 Dose: 150 mg Sodium Biphosphate/Sodium Phosphate (Sodium Phosphate,[place]-Dibasic 133 Ml Enema) 133 ml MT ONCE PRN PRN Reason: Consult order Last Admin: 06/30/25 12:21 Dose: 133 ml Sodium Chloride (0.9 % Sodium Chloride Flush 3 Ml Syringe) 3 ml IVFLUSH QSHIFT [facility] Last Admin: 06/30/25 08:53 Dose: 3 ml Vitamin D (Cholecalciferol (Vitamin D3) 25 Mcg Tablet) 25 mcg PO DAILY [facility] Last Admin: 06/30/25 08:52 Dose: 25 mcg Home Medications ?Medication ?Instructions ?Recorded ?Confirmed ?Last Taken ?Type sertraline 100 mg tablet 150 mg PO DAILY 06/10/20 06/28/25 04/07/25 History ascorbic acid (vitamin C) 500 mg 1 tab PO BID 12/03/20 06/28/25 04/07/25 History tablet (Vitamin C) montelukast 10 mg tablet 10 mg PO BEDTIME 12/03/20 06/28/25 04/07/25 History acetaminophen 500 mg tablet 1,000 mg PO Q8H PRN Pain 02/08/23 06/28/25 Unknown History budesonide-formoterol HFA 80 2 puff inhalation BID 02/08/23 06/28/25 04/07/25 History mcg-4.5 mcg/actuation aerosol inhaler (Symbicort) cholecalciferol (vitamin D3) 25 25 mcg PO DAILY 01/01/24 06/28/25 04/07/25 History mcg (1,000 unit) tablet docusate sodium 100 mg capsule 100 mg PO BID PRN Constipation 08/13/24 06/28/25 Unknown History melatonin 5 mg tablet 5 mg PO BEDTIME PRN Insomnia 08/13/24 06/28/25 Unknown History ticagrelor 90 mg tablet (Brilinta) 90 mg PO BID 08/13/24 06/28/25 04/07/25 History insulin aspart U-100 100 unit/mL See Protocol subcut BIDAC@0730,9310 08/26/24 06/28/25 04/07/25 History (3 mL) subcutaneous pen (Novolog FlexPen U-100 Insulin aspart) isosorbide mononitrate 30 mg 30 mg PO DAILY 10/02/24 06/28/25 04/07/25 History tablet,extended release 24 hr pantoprazole 40 mg tablet,delayed 40 mg PO DAILY@0630 03/06/28/25 04/07/25 History release carvedilol 3.125 mg tablet 3.125 mg PO BID 04/08/25 06/28/25 04/07/25 History ezetimibe 10 mg tablet 10 mg PO DAILY 04/08/25 06/28/25 04/07/25 History diclofenac sodium 1 % topical gel 1 g topical TID PRN discomfort 06/28/25 06/28/25 Unknown History insulin glargine 100 unit/mL 5 unit subcut BID 06/28/25 06/28/25 06/28/25 History subcutaneous solution (Lantus U-100 Insulin) Exam Exam Date and Time: 06/30/2025 Height,Weight and Vital Signs: Height 5 ft 2 in Weight 52.5 kg Last Vital Signs Temp 96.9 F 06/30/25 13:58 Pulse 65 06/30/25 13:58 Resp 16 06/30/25 13:58 BP 144/59 H 06/30/25 13:58 Pulse Ox 99 06/30/25 13:58 O2 Del Method Room Air 06/30/25 13:58 Pertinent Lab Results Pertinent Lab Results: Laboratory Tests 06/28/25 06/28/25 06/28/25 12:59 14:54 19:52 WBC 4.9 5.1 RBC 3.04 L 3.09 L Hgb 8.9 L 9.0 L Hct 26.9 L 27.1 L MCV 88.5 87.7 MCH 29.3 29.1 MCHC 33.1 33.2 RDW 15.1 15.2 Plt Count 135 L D 130 L MPV 11.0 10.6 Immature Gran % (Auto) 0.4 0.2 Neut % (Auto) 77.7 H 73.0 Lymph % (Auto) 17.4 L 21.9 [place] % (Auto) 3.9 4.3 Eos % (Auto) 0.4 0.4 Baso % (Auto) 0.2 0.2 Lymph # (Auto) 0.9 L 1.1 L [place] # (Auto) 0.2 0.2 Eos # (Auto) 0.0 0.0 Baso # (Auto) 0.0 0.0 Abs Immat Gran (auto) 0.02 0.01 Absolute Neuts (auto) 3.8 3.7 Absolute Nucleated RBC 0.000 0.000 Nucleated RBC % (auto) 0.0 0.0 PT 12.7 INR 1.0 Sodium 143 Potassium 4.7 Chloride 97 Carbon Dioxide 27 Anion Gap 24 H BUN 67 H Creatinine 8.46 H* Estim Creat Clear Calc 4.7 Estimated GFR 5 POC Glucose 87 Random Glucose 208 H Calcium 10.0 Total Bilirubin 0.5 AST 24 ALT 7 Alkaline Phosphatase 113 Troponin I High Sens 24.7 H Total Protein 7.4 Albumin 4.1 Stool Occult Blood POSITIVE Blood Type Antibody Screen 06/29/25 06/29/25 06/29/25 06:56 07:06 11:23 WBC 4.4 L RBC 3.01 L Hgb 8.9 L Hct 26.9 L MCV 89.4 MCH 29.6 MCHC 33.1 RDW 14.9 Plt Count 148 L MPV 11.1 Immature Gran % (Auto) 0.5 H Neut % (Auto) 67.9 Lymph % (Auto) 24.8 [place] % (Auto) 5.2 Eos % (Auto) 1.4 Baso % (Auto) 0.2 Lymph # (Auto) 1.1 L [place] # (Auto) 0.2 Eos # (Auto) 0.1 Baso # (Auto) 0.0 Abs Immat Gran (auto) 0.02 Absolute Neuts (auto) 3.0 Absolute Nucleated RBC 0.000 Nucleated RBC % (auto) 0.0 PT INR Sodium 143 Potassium 3.7 D Chloride 97 Carbon Dioxide 31 H Anion Gap 19 BUN 27 H Creatinine 4.80 H* Estim Creat Clear Calc 8.3 Estimated GFR 9 POC Glucose 92 186 H Random Glucose 89 Calcium 9.5 Total Bilirubin AST ALT Alkaline Phosphatase Troponin I High Sens Total Protein Albumin Stool Occult Blood Blood Type Antibody Screen 06/29/25 06/29/25 06/29/25 14:53 16:11 21:00 WBC 5.3 RBC 2.94 L Hgb 8.5 L Hct 25.9 L MCV 88.1 MCH 28.9 MCHC 32.8 RDW 15.1 Plt Count 158 L MPV 10.5 Immature Gran % (Auto) Neut % (Auto) Lymph % (Auto) [place] % (Auto) Eos % (Auto) Baso % (Auto) Lymph # (Auto) [place] # (Auto) Eos # (Auto) Baso # (Auto) Abs Immat Gran (auto) Absolute Neuts (auto) Absolute Nucleated RBC 0.000 Nucleated RBC % (auto) 0.0 PT INR Sodium Potassium Chloride Carbon Dioxide Anion Gap BUN Creatinine Estim Creat Clear Calc Estimated GFR POC Glucose 119 H 123 H Random Glucose Calcium Total Bilirubin AST ALT Alkaline Phosphatase Troponin I High Sens Total Protein Albumin Stool Occult Blood Blood Type Antibody Screen 06/30/25 06/30/25 06/30/25 06:34 07:40 11:07 WBC 4.6 L RBC 2.93 L Hgb 8.4 L Hct 25.8 L MCV 88.1 MCH 28.7 MCHC 32.6 RDW 14.8 Plt Count 151 L MPV 11.0 Immature Gran % (Auto) 0.4 Neut % (Auto) 66.8 Lymph % (Auto) 24.3 [place] % (Auto) 7.0 Eos % (Auto) 1.3 Baso % (Auto) 0.2 Lymph # (Auto) 1.1 L [place] # (Auto) 0.3 Eos # (Auto) 0.1 Baso # (Auto) 0.0 Abs Immat Gran (auto) 0.02 Absolute Neuts (auto) 3.1 Absolute Nucleated RBC 0.000 Nucleated RBC % (auto) 0.0 PT 13.6 H INR 1.1 Sodium 141 Potassium 4.0 Chloride 94 L Carbon Dioxide 31 H Anion Gap 20 BUN 45 H Creatinine 6.58 H* Estim Creat Clear Calc 6.0 Estimated GFR 6 POC Glucose 110 98 Random Glucose 111 Calcium 9.5 Total Bilirubin 0.5 AST 16 ALT < 6 Alkaline Phosphatase 92 Troponin I High Sens Total Protein 6.5 Albumin 3.7 Stool Occult Blood Blood Type Antibody Screen 06/30/25 12:56 WBC RBC Hgb Hct MCV MCH MCHC RDW Plt Count MPV Immature Gran % (Auto) Neut % (Auto) Lymph % (Auto) [place] % (Auto) Eos % (Auto) Baso % (Auto) Lymph # (Auto) [place] # (Auto) Eos # (Auto) Baso # (Auto) Abs Immat Gran (auto) Absolute Neuts (auto) Absolute Nucleated RBC Nucleated RBC % (auto) PT INR Sodium Potassium Chloride Carbon Dioxide Anion Gap BUN Creatinine Estim Creat Clear Calc Estimated GFR POC Glucose Random Glucose Calcium Total Bilirubin AST ALT Alkaline Phosphatase Troponin I High Sens Total Protein Albumin Stool Occult Blood Blood Type B Positive Antibody Screen NEGATIVE Airway Mallampati Class: II TM Dist: >3cm Neck ROM: Full Heart: rrr Lungs: ctab vesicular Assessment and Plan Assessment Anesthesia Assessment: Anesthesia Plan Discussed and Chart Reviewed Final Anesthetic Review Family History of Problems with Anesthesia: No History of Problems with Anesthesia: No NPO: Yes ASA Class: III Final Preanesthetic Review: No Changes in Pt Med Stat, Meds/Allgs Chart Reviewed, Consent Obtained/Reviewed and Anes Risks/Benef Reviewed Patient Risk: Intermediate Procedure Risk: Low Anesthetic Plan Anesthetic Plan: MAC: Disposition: Standard PACU
--- NOTE | 2025-06-30 14:19 | PM.GIPN ---
Subjective Subjective Date of Service: 06/30/25 Interval History: still ahving rectal bleeding Ct report with asymmetrical sigmoid thickening, neoplasia not excluded no n.v or fever Critical Care Time (minutes): 0 Physical Exam Exam: Exam: EXAM: GENERAL: The patient is well developed and nontoxic. VITAL SIGNS:see workflow HEENT: Nonicteric sclerae, PERRLA, EOMI. Oropharynx clear. Moist mucous membranes. Conjunctivae appear well perfused. No thyroid mass. CHEST: Chest wall is nontender. HEART: Regular rate and rhythm without murmurs. LUNGS: Clear to auscultation bilaterally. ABDOMEN: Soft, positive bowel sounds, nontender, no organomegaly.no flank tenderness SKIN: No rash, no excessive bruising, petechiae, or purpura. NEUROLOGIC: Cranial nerves II-XII intact without motor/sensory deficit. Psych: normal affect Av fistula noted Vital Signs: Vital Signs: Last Vital Signs Temp 96.9 F 06/30/25 13:58 Pulse 65 06/30/25 13:58 Resp 16 06/30/25 13:58 BP 144/59 H 06/30/25 13:58 Pulse Ox 99 06/30/25 13:58 O2 Del Method Room Air 06/30/25 13:58 BMI result Body Mass Index 21.2 Objective Data Labs 06/30/25 06:34 06/30/25 06:34 Labs: Laboratory Results - last 24 hr 06/29/25 06/29/25 06/29/25 14:53 16:11 21:00 WBC 5.3 RBC 2.94 L Hgb 8.5 L Hct 25.9 L MCV 88.1 MCH 28.9 MCHC 32.8 RDW 15.1 Plt Count 158 L MPV 10.5 Immature Gran % (Auto) Neut % (Auto) Lymph % (Auto) [place] % (Auto) Eos % (Auto) Baso % (Auto) Lymph # (Auto) [place] # (Auto) Eos # (Auto) Baso # (Auto) Abs Immat Gran (auto) Absolute Neuts (auto) Absolute Nucleated RBC 0.000 Nucleated RBC % (auto) 0.0 PT INR Sodium Potassium Chloride Carbon Dioxide Anion Gap BUN Creatinine Estim Creat Clear Calc Estimated GFR POC Glucose 119 H 123 H Random Glucose Calcium Total Bilirubin AST ALT Alkaline Phosphatase Total Protein Albumin Blood Type Antibody Screen 06/30/25 06/30/25 06/30/25 06:34 07:40 11:07 WBC 4.6 L RBC 2.93 L Hgb 8.4 L Hct 25.8 L MCV 88.1 MCH 28.7 MCHC 32.6 RDW 14.8 Plt Count 151 L MPV 11.0 Immature Gran % (Auto) 0.4 Neut % (Auto) 66.8 Lymph % (Auto) 24.3 [place] % (Auto) 7.0 Eos % (Auto) 1.3 Baso % (Auto) 0.2 Lymph # (Auto) 1.1 L [place] # (Auto) 0.3 Eos # (Auto) 0.1 Baso # (Auto) 0.0 Abs Immat Gran (auto) 0.02 Absolute Neuts (auto) 3.1 Absolute Nucleated RBC 0.000 Nucleated RBC % (auto) 0.0 PT 13.6 H INR 1.1 Sodium 141 Potassium 4.0 Chloride 94 L Carbon Dioxide 31 H Anion Gap 20 BUN 45 H Creatinine 6.58 H* Estim Creat Clear Calc 6.0 Estimated GFR 6 POC Glucose 110 98 Random Glucose 111 Calcium 9.5 Total Bilirubin 0.5 AST 16 ALT < 6 Alkaline Phosphatase 92 Total Protein 6.5 Albumin 3.7 Blood Type Antibody Screen 06/30/25 12:56 WBC RBC Hgb Hct MCV MCH MCHC RDW Plt Count MPV Immature Gran % (Auto) Neut % (Auto) Lymph % (Auto) [place] % (Auto) Eos % (Auto) Baso % (Auto) Lymph # (Auto) [place] # (Auto) Eos # (Auto) Baso # (Auto) Abs Immat Gran (auto) Absolute Neuts (auto) Absolute Nucleated RBC Nucleated RBC % (auto) PT INR Sodium Potassium Chloride Carbon Dioxide Anion Gap BUN Creatinine Estim Creat Clear Calc Estimated GFR POC Glucose Random Glucose Calcium Total Bilirubin AST ALT Alkaline Phosphatase Total Protein Albumin Blood Type B Positive Antibody Screen NEGATIVE Procedures Date of Service Date of Service: 06/30/25 Progress Note: A&P Assessment and plan (1) Rectal bleeding: Status: Acute Plan 1/ Acute blood loss anemia, describing black stools and fresh blood both--abn imaging of sigmoid PLAN: 1/EGD and colo today for further assessment -cont ppi meantime Time Spent With Patient Time: Total time managing care of this patient today ____ minutes. Quality Stroke Does the patient have a stroke diagnosis?: No VTE Prior VTE?: No VTE Risk Level:: Medical - moderate - high VTE Device Contraindication: N/A - Device Ordered VTE Drug Contraindication: Treatment Not Indicated
--- NOTE | 2025-06-30 14:39 | PC.NURSE ---
repositioned patient and applied a pillow to buttock area. comf foam dressing to coccyx left area intact.
--- NOTE | 2025-06-30 14:42 | PC.NURSE ---
4 iv attempts given. artem well. no success. anothe rn to use ultrasound guided machine for iv access.
--- NOTE | 2025-06-30 14:55 | MHC.CM.PN ---
PER MD ROUNDS, PLAN FOR COLONOSCOPY. PATIENT UNABLE TO COMPLETE PREP. PLAN PENDING GI RECS. CM FOLLOWING.
--- NOTE | 2025-06-30 14:56 | PC.NURSE ---
when reposioning patient no rectal blood noted
[2025-06-30] MEDS: Lactated Ringers 500 ML 20 ML IVCONT (15:00)
[2025-06-30 15:09] LABS: Glucose, Whole Blood 89 mg/dL (60-115)
--- NOTE | 2025-06-30 15:35 | PC.NURSE ---
Dr. Garcia updated regarding lab results today and has ordered stat labs to be completed now. Lab aware.
[2025-06-30 16:58] LABS: Anion Gap 21 (12-20); Blood Urea Nitrogen 50 mg/dL (9-16); Carbon Dioxide 30 mmol/L (22-29); Chloride 94 mmol/L (96-108); Creatinine Clr Calc Pharmacy 5.7; Estimated Glomerular Filt Rate 6; Potassium 4.4 mmol/L (3.3-5.1); Sodium 141 mmol/L (135-145)
--- NOTE | 2025-06-30 17:29 | HO.PM.IMPN ---
Subjective Subjective Date of Service: 06/30/25 Interval History: Pt seen and evaluated in [facility] where she is awaiting colonscopy Was unable to tolerate bowel prep last night and this morning; only drank a few glasses Denies lightheadedness or dizziness No rectal bleeding noticed; has painless BM this morning H&H stable ovenight Review of Systems Review of Systems: Yes all other systems are reviewed and are negative Physical Exam Exam: Exam: General: AOx3, no acute distress Resp: CTA bilaterally CVS: S1, S2, RRR GI: +BS, NT, no distention Skin: Warm, dry Neuro: Cranial nerves II-XII grossly intact bilaterally. Motor grossly intact bilaterally Extremities: No edema Psych: Appropriate affect Vital Signs: Vital Signs: Last Vital Signs Temp 96.9 F 06/30/25 13:58 Pulse 65 06/30/25 13:58 Resp 16 06/30/25 13:58 BP 144/59 H 06/30/25 13:58 Pulse Ox 99 06/30/25 13:58 O2 Del Method Room Air 06/30/25 13:58 BMI result Body Mass Index 21.2 Objective Data Active Medications Acetaminophen (Acetaminophen 325 Mg Tablet) 650 mg PO Q6H PRN PRN Reason: Pain, Mild 1-3,fever,headache Last Admin: 06/30/25 08:50 Dose: 650 mg Documented By: JEFF Ascorbic Acid (Ascorbic Acid 500 Mg Tablet) 500 mg PO BID [facility] Last Admin: 06/30/25 08:51 Dose: 500 mg Documented By: JEFF Atorvastatin Calcium (Atorvastatin Calcium 80 Mg Tablet) 80 mg PO BEDTIME [facility] Last Admin: 06/29/25 21:32 Dose: 80 mg Documented By: TITO Calcium Carbonate (Calcium Carbonate 750 Mg Tab.Chew) 750 mg PO Q4H PRN PRN Reason: Heartburn Carvedilol (Carvedilol 3.125 Mg Tablet) 3.125 mg PO BID [facility]; Protocol Last Admin: 06/30/25 08:52 Dose: 3.125 mg Documented By: JEFF Dextrose (Dextrose 50 % 25 Gm/50 Ml Syringe) 25 gm IVPUSH Q15M PRN; Protocol PRN Reason: per Hypoglycemia Standing Ord. Droperidol (Droperidol 5 Mg/2 Ml Vial) 0.625 mg IVPUSH ONCE PRN PRN Reason: intractable nausea Stop: 06/30/25 20:05 Ezetimibe (Ezetimibe 10 Mg Tablet) 10 mg PO DAILY [facility] Last Admin: 06/30/25 08:51 Dose: 10 mg Documented By: JEFF Fentanyl (Fentanyl Citrate/Pf 100 Mcg/2 Ml Vial) 25 mcg IVPUSH Q5M PRN PRN Reason: Pain, Moderate to Severe (Pain Scale 4-10) Stop: 06/30/25 20:05 Fluticasone/Vilanterol (Fluticasone/Vilanterol 100/25 Blst.W.Dev) 1 puff INHALE RDAILY [facility] Last Admin: 06/30/25 07:25 Dose: 1 puff Documented By: MOY Glucose (Glucose Gel 15 Gm Gel..Gram.) 15 gm PO Q15M PRN; Protocol PRN Reason: per Hypoglycemia Standing Ord. Hydralazine HCl (Hydralazine Hcl 25 Mg Tablet) 25 mg PO TID [facility]; Protocol Last Admin: 06/30/25 08:51 Dose: 25 mg Documented By: JEFF Lactated Ringer's (Lr) 500 mls @ 20 mls/hr IVCONT .Q24H [facility] Last Admin: 06/30/25 15:00 Dose: 20 mls/hr Documented By: QUYEN Insulin Human Lispro (Insulin Lispro 100 Unit/Ml 3 Ml Vial) 0 unit SUBCUT QIDACHS [facility]; Protocol Last Admin: 06/30/25 13:18 Dose: Not Given Documented By: JEFF Non-Admin Reason: No Insulin Coverage Isosorbide Mononitrate (Isosorbide Mononitrate 30 Mg Tab.Er.24h) 30 mg PO DAILY [facility]; Protocol Last Admin: 06/30/25 08:50 Dose: 30 mg Documented By: JEFF Magnesium Hydroxide (Milk Of Magnesia 30 Ml Oral.Susp) 30 ml PO DAILY PRN PRN Reason: Constipation Melatonin (Melatonin 3 Mg Tablet) 6 mg PO BEDTIME PRN PRN Reason: Insomnia Last Admin: 06/29/25 23:50 Dose: 6 mg Documented By: TITO Montelukast Sodium (Montelukast Sodium 10 Mg Tablet) 10 mg PO BEDTIME [facility] Last Admin: 06/29/25 21:32 Dose: 10 mg Documented By: TITO Naloxone HCl (Naloxone Hcl 0.4 Mg/Ml Vial) 0.04 mg IVPUSH Q5M PRN PRN Reason: Excessive sedation or RR < 8 Naloxone HCl (Naloxone Hcl 0.4 Mg/Ml Vial) 0.04 mg IVPUSH Q5M PRN PRN Reason: Excessive sedation or RR < 8 Ondansetron HCl (Ondansetron Hcl 4 Mg/2 Ml Vial) 4 mg IVPUSH Q8H PRN PRN Reason: Nausea and Vomiting Last Admin: 06/30/25 08:51 Dose: 4 mg Documented By: JEFF Ondansetron HCl (Ondansetron Hcl 4 Mg/2 Ml Vial) 4 mg IVPUSH Q4H PRN PRN Reason: Nausea and Vomiting Pantoprazole Sodium (Pantoprazole Sodium 40 Mg/10 Ml Vial) 40 mg IVPUSH BID@0630,1630 [facility] Last Admin: 06/30/25 06:02 Dose: 40 mg Documented By: TITO Sertraline HCl (Sertraline Hcl 50 Mg Tablet) 150 mg PO DAILY [facility] Last Admin: 06/30/25 08:51 Dose: 150 mg Documented By: JEFF Sodium Biphosphate/Sodium Phosphate (Sodium Phosphate,[place]-Dibasic 133 Ml Enema) 133 ml MA ONCE PRN PRN Reason: Consult order Last Admin: 06/30/25 12:21 Dose: 133 ml Documented By: JEFF Sodium Chloride (0.9 % Sodium Chloride Flush 3 Ml Syringe) 3 ml IVFLUSH QSHIFT [facility] Last Admin: 06/30/25 08:53 Dose: 3 ml Documented By: JEFF Vitamin D (Cholecalciferol (Vitamin D3) 25 Mcg Tablet) 25 mcg PO DAILY [facility] Last Admin: 06/30/25 08:52 Dose: 25 mcg Documented By: JEFF Labs 06/30/25 06:34 06/30/25 16:19 Labs: Laboratory Results - last 24 hr 06/29/25 06/30/25 06/30/25 21:00 06:34 07:40 MCV 88.1 MCH 28.7 MCHC 32.6 RDW 14.8 Plt Count 151 L MPV 11.0 Immature Gran % (Auto) 0.4 Neut % (Auto) 66.8 Lymph % (Auto) 24.3 [place] % (Auto) 7.0 Eos % (Auto) 1.3 Baso % (Auto) 0.2 Lymph # (Auto) 1.1 L [place] # (Auto) 0.3 Eos # (Auto) 0.1 Baso # (Auto) 0.0 Abs Immat Gran (auto) 0.02 Absolute Neuts (auto) 3.1 Absolute Nucleated RBC 0.000 Nucleated RBC % (auto) 0.0 PT 13.6 H INR 1.1 Anion Gap 20 Estim Creat Clear Calc 6.0 Estimated GFR 6 POC Glucose 123 H 110 Random Glucose 111 Calcium 9.5 Total Bilirubin 0.5 AST 16 ALT < 6 Alkaline Phosphatase 92 Total Protein 6.5 Albumin 3.7 Blood Type Antibody Screen 06/30/25 06/30/25 06/30/25 11:07 12:56 15:05 MCV MCH MCHC RDW Plt Count MPV Immature Gran % (Auto) Neut % (Auto) Lymph % (Auto) [place] % (Auto) Eos % (Auto) Baso % (Auto) Lymph # (Auto) [place] # (Auto) Eos # (Auto) Baso # (Auto) Abs Immat Gran (auto) Absolute Neuts (auto) Absolute Nucleated RBC Nucleated RBC % (auto) PT INR Anion Gap Estim Creat Clear Calc Estimated GFR POC Glucose 98 89 Random Glucose Calcium Total Bilirubin AST ALT Alkaline Phosphatase Total Protein Albumin Blood Type B Positive Antibody Screen NEGATIVE 06/30/25 16:19 MCV MCH MCHC RDW Plt Count MPV Immature Gran % (Auto) Neut % (Auto) Lymph % (Auto) [place] % (Auto) Eos % (Auto) Baso % (Auto) Lymph # (Auto) [place] # (Auto) Eos # (Auto) Baso # (Auto) Abs Immat Gran (auto) Absolute Neuts (auto) Absolute Nucleated RBC Nucleated RBC % (auto) PT INR Anion Gap 21 H Estim Creat Clear Calc 5.7 Estimated GFR 6 POC Glucose Random Glucose Calcium Total Bilirubin AST ALT Alkaline Phosphatase Total Protein Albumin Blood Type Antibody Screen Assessment and Plan (1) Rectal bleeding: Status: Acute Plan 70-year-old Chinese-speaking female with history of ESRD on HD TuThSa, DM, CAD s/p CABG and PCI who presents to the emergency department with rectal bleeding GI bleeding GI bleeding in july had egd 08/28 showing gastritis and duodenitis EGD/colo 2022 - hemorrhoids H&H stable today hold brilinta trend cbc IV PPI GI consulted, plan on EGD and colonoscopy demi in the day ESRD on HD / missed last session underwent HD on mon, 06/28 continue lasix CAD s/p CABG, s/p stent on brilinta, asa stopped in march will hold brilinta for GI bleed continue imdur, statin, zetia, coreg thrombocytopenia appears new, stable during hospital stay follow CBC HTN continue coreg, hydralazine hold norvasc to prevent hypotention in setting of rectal bleeding, but if bp remains high after HD may need to resume in am T2DM hold lantus while on clears SSI, POCs SHELIA intolerant of CPAP Mood Continue sertraline Pt requires continued hospitalization for stabliziation and monitoring of labs post scoping. Quality Stroke Does the patient have a stroke diagnosis?: No VTE Prior VTE?: No VTE Risk Level:: Medical - moderate - high VTE Device Contraindication: N/A - Device Ordered VTE Drug Contraindication: Treatment Not Indicated
--- NOTE | 2025-06-30 18:59 | P.OPN-COLO_ITS ---
Colonoscopy Operative Note Operative Note Date of Service: 06/30/25 Narrative: Operative Information Procedure Description: EGD, Colonoscopy Indication: acute blood loss anemia Anesthesia: MAC FLEXIBLE TRANSORAL UPPER GASTROINTESTINAL ENDOSCOPY AND COLONOSCOPY PROCEDURE NOTE UPPER ENDOSCOPY Consent: Indications for the procedure and potential complications of bleeding, perforation, reaction to medications and missed diagnosis were discussed with the patient and informed consent was obtained. Instrument: Olympus GIF H 190 J mid size upper endoscope Monitoring: Vital signs and clinical assessment, continuous EKG monitoring, Pulse oximetry, Carbon Dioxide monitoring and blood pressure monitoring were done throughout the procedure. Procedure: The patient was placed in the left lateral decubitis position and pre-procedure medications were administered and a bite block was placed. The endoscope was inserted into the mouth and advanced under direct vision to the third part of duodenum. A careful inspection was made as the upper endoscope was withdrawn including a retroflexed examination of the proximal stomach; Findings and interventions are described below. Findings: Larynx:normal Esophagus: GE junction at 40 cm, diaphragm hiatus at 40 cm, normal mucosa Stomach: Normal mucosa. Biopsies were obtained. Grade 2 flap valve on retroflexed examination of the cardia. Duodenum: Mild duodenitis, bx taken Intervention: Biopsies as noted above, COLONOSCOPY Instrument: Olympus variable stiffness pediatric scope 190L Colonoscopy Monitoring: Vital signs and clinical assessment, continuous EKG monitoring, Pulse oximetry, Carbon Dioxide monitoring and blood pressure monitoring were done throughout the procedure. Colon withdrawal time was 20 minutes. Procedure: The patient was placed in the left lateral decubitis position and pre-procedure medications were administered. After a digital rectal examination of the ano-rectum, the video colonoscope was inserted into the rectum and advanced through the colon to the cecum/TI. The colonoscope was slowly withdrawn in a retrograde panoramic fashion and the colon mucosa was carefully examined including a retroflexed view of the rectum. Findings and interventions are described below. Procedure Difficulty:moderate--pressure applied, Findings: Terminal Ileum-normal Cecum: 10 mm sessile polyp lifted with eleview injection then removed with cold snare, 4-6 mm sessile polyp removed with cold forceps Ascending Colon: proximal AC, white nipple sign with persistent oozing noted x 2 clips applied with hemospray and bleeding stopped Transverse Colon -normal Descending Colon:normal Sigmoid Colon: 10 mm sessile polyp removed with cold snare Rectum: Retroflexion with small internal hemorrhoids, grade I Anorectum - normal Colon preparation: Creighton Bowel Preparation Scale Right colon; 1-2 Transverse colon: 1-2 Left colon; 1-2 (0 = Unprepared colon segment with mucosa not seen due to solid stool that cannot be cleared. 1 = Portion of mucosa of the colon segment seen, but other areas of the colon segment not well seen due to staining, residual stool and/or opaque liquid. 2 = Minor amount of residual staining, small fragments of stool and/or opaque liquid, but mucosa of colon segment seen well. 3 = Entire mucosa of colon segment seen well with no residual staining, small fragments of stool or opaque liquid) Impression and Post Procedure Diagnosis: Endoscopy Findings: duodenitis Colonoscopy Findings: diverticulosis colon polyps x 3 internal hemorrhoids dieulafoy Plan: Await Pathology results Repeat Colonoscopy in 6-12 months due to polyps and poor prep or earlier if clinically indicated High fiber diet leaflet avoid straining at stool, epsom salts and sitz bath, anusol supps or cream Above findings were reviewed with the patient and relevant handouts were provided if indicated.
--- NOTE | 2025-06-30 19:26 | P.CONNP_ITS ---
History of Present Illness Reason for Consult Consult date: 06/30/25 Reason for consult: ESRD and HD Chief Complaint Chief complaint: GI Bleeding History of Present Illness Narrative: RTANE consulted for HD In summary 70 y/o ESRD adm with LGIB and abnl CT of abd and ongoing GI w/u. Review of Systems Review of Systems Constitutional : No Weight loss, No Fever, No Chills ENT/Mouth : No sore throat, No Rhinorrhea Eyes: No Swelling, No Redness Cardiovascular : No Chest Pain, No SOB, No Edema Respiratory : No Cough, No Sputum, No Wheezing Gastrointestinal : see HPI Genitourinary : NO Dysuria, No Urinary Frequency, No Hematuria, No Urgency Musculoskeletal : no joint pain, No Myalgias, No Joint Swelling Skin : No Skin Lesions, No rash Neuro : No Weakness, No Numbness, No Dizziness, No Headache Psych : No Anxiety/Panic, No Depression Heme/Lymph: No Bruising, No Lymphadenopathy Endocrine : No Polyuria, No Polydipsia All other systems reviewed and are negative. 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 End stage chronic kidney disease Edema Atherosclerotic cardiovascular disease SHELIA (obstructive sleep apnea) Hypercalcemia Asthma DJD (degenerative joint disease) Chronic kidney disease Other and unspecified hyperlipidemia Type 2 diabetes mellitus with unspecified complications Essential hypertension Family History Family History Father Cardiovascular disease Hypertension Mother Cardiovascular disease Hypertension Surgical History Surgical History History of hemorrhoidectomy (01/30/23) H/O colonoscopy Hemorrhoids H/O angioplasty History of tubal ligation History of coronary artery bypass graft (~2017) Social History Social History Household Members: Children Household Members Other:: son, dog Housing: Apartment Housing Other:: senior apartment Are you a primary primary care coordinator to a significant other at home: No Do you presently have visiting nurse or other home services: No Alcohol intake: never Patient Tobacco Use Status: Never used Tobacco Smoked in Last 30 Days: No e-Cigarette/Vaping Use: Never Used Second Hand Smoke Exposure: No Use of substances other than those prescribed or required for medical reasons: No Currently Displaying Signs/Symptoms of Drug Intoxication Withdrawal: No Have you been hit, kicked, punched, or otherwise hurt by someone within the past year? If so, by whom?: No Do you feel safe in your current relationship?: No Is there a partner from a previous relationship who is making you feel unsafe now?: No Are you made to feel afraid or neglected: No Are you DNR?: No Advance Directives: No Advance Directives Information Provided: Yes Advance Directives Date on File: 12/03/20 Do you have a plan to hurt others: No Plan Recently lost weight without trying: No How much weight loss: Not applicable Eating poorly because of decreased appetite: No Nutrition screen score: 0 Nutrition Risks: No Nutritional Risk Patient : No : No Poor oral hygiene: No service: No 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al status: disabled 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 Allergies Allergy/AdvReac Type Severity Reaction Status Date / Time No Known Allergies Allergy Verified 06/28/25 12:03 Active Medications: Current Medications Acetaminophen (Acetaminophen 325 Mg Tablet) 650 mg PO Q6H PRN PRN Reason: Pain, Mild 1-3,fever,headache Last Admin: 06/30/25 08:50 Dose: 650 mg Ascorbic Acid (Ascorbic Acid 500 Mg Tablet) 500 mg PO BID [facility] Last Admin: 06/30/25 08:51 Dose: 500 mg Atorvastatin Calcium (Atorvastatin Calcium 80 Mg Tablet) 80 mg PO BEDTIME [facility] Last Admin: 06/29/25 21:32 Dose: 80 mg Calcium Carbonate (Calcium Carbonate 750 Mg Tab.Chew) 750 mg PO Q4H PRN PRN Reason: Heartburn Carvedilol (Carvedilol 3.125 Mg Tablet) 3.125 mg PO BID [facility]; Protocol Last Admin: 06/30/25 08:52 Dose: 3.125 mg Dextrose (Dextrose 50 % 25 Gm/50 Ml Syringe) 25 gm IVPUSH Q15M PRN; Protocol PRN Reason: per Hypoglycemia Standing Ord. Droperidol (Droperidol 5 Mg/2 Ml Vial) 0.625 mg IVPUSH ONCE PRN PRN Reason: intractable nausea Stop: 06/30/25 20:05 Ezetimibe (Ezetimibe 10 Mg Tablet) 10 mg PO DAILY [facility] Last Admin: 06/30/25 08:51 Dose: 10 mg Fentanyl (Fentanyl Citrate/Pf 100 Mcg/2 Ml Vial) 25 mcg IVPUSH Q5M PRN PRN Reason: Pain, Moderate to Severe (Pain Scale 4-10) Stop: 06/30/25 20:05 Fluticasone/Vilanterol (Fluticasone/Vilanterol 100/25 Blst.W.Dev) 1 puff INHALE RDAILY [facility] Last Admin: 06/30/25 07:25 Dose: 1 puff Glucose (Glucose Gel 15 Gm Gel..Gram.) 15 gm PO Q15M PRN; Protocol PRN Reason: per Hypoglycemia Standing Ord. Hydralazine HCl (Hydralazine Hcl 25 Mg Tablet) 25 mg PO TID [facility]; Protocol Last Admin: 06/30/25 18:16 Dose: Not Given Lactated Ringer's (Lr) 500 mls @ 20 mls/hr IVCONT .Q24H [facility] Last Admin: 06/30/25 15:00 Dose: 20 mls/hr Insulin Human Lispro (Insulin Lispro 100 Unit/Ml 3 Ml Vial) 0 unit SUBCUT QIDACHS [facility]; Protocol Last Admin: 06/30/25 18:16 Dose: Not Given Isosorbide Mononitrate (Isosorbide Mononitrate 30 Mg Tab.Er.24h) 30 mg PO DAILY [facility]; Protocol Last Admin: 06/30/25 08:50 Dose: 30 mg Magnesium Hydroxide (Milk Of Magnesia 30 Ml Oral.Susp) 30 ml PO DAILY PRN PRN Reason: Constipation Melatonin (Melatonin 3 Mg Tablet) 6 mg PO BEDTIME PRN PRN Reason: Insomnia Last Admin: 06/29/25 23:50 Dose: 6 mg Montelukast Sodium (Montelukast Sodium 10 Mg Tablet) 10 mg PO BEDTIME [facility] Last Admin: 06/29/25 21:32 Dose: 10 mg Naloxone HCl (Naloxone Hcl 0.4 Mg/Ml Vial) 0.04 mg IVPUSH Q5M PRN PRN Reason: Excessive sedation or RR < 8 Naloxone HCl (Naloxone Hcl 0.4 Mg/Ml Vial) 0.04 mg IVPUSH Q5M PRN PRN Reason: Excessive sedation or RR < 8 Ondansetron HCl (Ondansetron Hcl 4 Mg/2 Ml Vial) 4 mg IVPUSH Q8H PRN PRN Reason: Nausea and Vomiting Last Admin: 06/30/25 08:51 Dose: 4 mg Ondansetron HCl (Ondansetron Hcl 4 Mg/2 Ml Vial) 4 mg IVPUSH Q4H PRN PRN Reason: Nausea and Vomiting Pantoprazole Sodium (Pantoprazole Sodium 40 Mg/10 Ml Vial) 40 mg IVPUSH BID@0630,1630 [facility] Last Admin: 06/30/25 18:17 Dose: Not Given Sertraline HCl (Sertraline Hcl 50 Mg Tablet) 150 mg PO DAILY [facility] Last Admin: 06/30/25 08:51 Dose: 150 mg Sodium Biphosphate/Sodium Phosphate (Sodium Phosphate,[place]-Dibasic 133 Ml Enema) 133 ml MS ONCE PRN PRN Reason: Consult order Last Admin: 06/30/25 12:21 Dose: 133 ml Sodium Chloride (0.9 % Sodium Chloride Flush 3 Ml Syringe) [facility] Last Admin: 06/30/25 18:16 Dose: Not Given Vitamin D (Cholecalciferol (Vitamin D3) 25 Mcg Tablet) 25 mcg PO DAILY [facility] Last Admin: 06/30/25 08:52 Dose: 25 mcg Home Medications ?Medication ?Instructions ?Recorded ?Confirmed ?Last Taken ?Type sertraline 100 mg tablet 150 mg PO DAILY 06/10/2004/07/25 History ascorbic acid (vitamin C) 500 mg 1 tab PO BID 12/03/20 06/28/25 04/07/25 History tablet (Vitamin C) montelukast 10 mg tablet 10 mg PO BEDTIME 12/03/2004/07/25 History acetaminophen 500 mg tablet 1,000 mg PO Q8H PRN Pain 0 02/08/23 06/28/25 Unknown History budesonide-formoterol HFA 80 2 puff inhalation BID 07/2206/28/25 04/07/25 History mcg-4.5 mcg/actuation aerosol inhaler (Symbicort) cholecalciferol (vitamin D3) 25 25 mcg PO DAILY 06/28/25 04/07/25 History mcg (1,000 unit) tablet docusate sodium 100 mg capsule 100 mg PO BID PRN Const ipation 08/13/24 06/28/25 Unknown History melatonin 5 mg tablet 5 mg PO BEDTIME PRN Insomnia 08/13/24 06/28/25 Unknown History ticagrelor 90 mg tablet (Brilinta) 90 mg PO BID 06/28/25 04/07/25 History insulin aspart U-100 100 unit/mL See Protocol subcut B IDAC@0730,1630 08/26/24 06/28/25 04/07/25 History (3 mL) subcutaneous pen (Novolog FlexPen U-100 Insulin aspart) isosorbide mononitrate 30 mg 30 mg PO DAILY 10/02/24 1 08/28/24 04/07/25 History tablet,extended release 24 hr pantoprazole 40 mg tablet,delayed 40 mg PO DAILY@0630 10/10/24 06/28/25 04/07/25 History release carvedilol 3.125 mg tablet 3.125 mg PO BID 04/08/2504/07/25 History ezetimibe 10 mg tablet 10 mg PO DAILY 04/08/2506/0104/07/25 History diclofenac sodium 1 % topical gel 1 g topical TID PRN discomfort 06/28/25 06/28/25 Unknown History insulin glargine 100 unit/mL 5 unit subcut BID 5 06/28/25 06/28/25 History subcutaneous solution (Lantus U-100 Insulin) Physical Exam Vital Signs: Last Vital Signs Temp 97.0 F 06/30/25 19:14 Pulse 64 06/30/25 19:14 Resp 20 06/30/25 19:14 BP 110/40 L 06/30/25 19:14 Pulse Ox 94 06/30/25 19:14 O2 Del Method Room Air 06/30/25 19:14 BMI result Body Mass Index 21.2 Const General: cooperative, comfortable, alert and awake Nutritional Appearance: average body habitus and well nourished Orientation/consciousness: patient oriented x3 Limitations: no limitations and language barrier HEENT Head: Yes normal to inspection Ears: hearing grossly normal bilaterally General nose exam: Normal external nose present Face and sinus: Yes normal facial exam Mouth: Normal oral and palatal mucosa present Throat: Yes posterior oropharynx normal Neck Neck: Yes normal visual inspection Chest Chest palpation & inspection: normal inspection of the chest Resp Effort & Inspection: normal respiratory effort, able to speak in complete sentences, no respiratory distress and no use of accessory muscles Auscultation: clear to auscultation bilaterally Cardio Jugular venous distension: no JVD Rate: regular rate Rhythm: regular rhythm GI Inspection: Yes normal to inspection and No distended Palpation (GI): Soft to palpation and not firm Rectal Exam - Female: other (Maroon stool) Skin General skin exam: no rashes or lesions noted Neuro General: patient oriented x3, moves all extremities and CN's II-XI intact bilaterally Extrem General: No pedal edema Results Lab Results 06/30/25 06:34 06/30/25 16:19 Lab results: Chemistry 06/28/25 06/29/25 06/30/25 12:59 07:06 06:34 Sodium 143 143 141 Potassium 4.7 3.7 D 4.0 Carbon Dioxide 27 31 H 31 H BUN 67 H 27 H 45 H Creatinine 8.46 H* 4.80 H* 6.58 H* Calcium 10.0 9.5 9.5 06/30/25 16:19 Sodium 141 Potassium 4.4 Carbon Dioxide 30 H BUN 50 H Creatinine 7.03 H* Calcium Hematology 06/28/25 06/28/25 06/29/25 12:59 14:54 07:06 WBC 4.9 5.1 4.4 L Hgb 8.9 L 9.0 L 8.9 L Plt Count 135 L D 130 L 148 L 06/29/25 06/30/25 14:53 06:34 WBC 5.3 4.6 L Hgb 8.5 L 8.4 L Plt Count 158 L 151 L Assessment and Plan (1) Rectal bleeding: Status: Acute Plan ESRD: HD TTS Anemia: multifact including ongoing GIB and underlyng Nephrogenic Anemia MBD of ESRD REC: cont HD TTS, DDAVPO if acitve bleeding/droping Hb; GI w/u as noted Will follow w team Procedures Date of Service Date of Service: 06/30/25
[2025-06-30 20:58] LABS: Glucose, Whole Blood 89 mg/dL (60-115)
[2025-07-01] VITALS (7 sets, daily range): BP systolic 127–170; BP diastolic 57–74; PULSE 65–73; RESP 16–18; TEMP 36.4–36.8; O2SAT 92–100
[2025-07-01 06:31] LABS: MANUAL DIFF FLAG NO
[2025-07-01 06:32] LABS: Hematocrit 22.3 % (37.0-47.0); Hemoglobin 7.4 g/dl (12.0-16.0); Imm Gran Abs Auto 0.02 X10*3/uL (0.00-0.03); Imm Gran Pct Auto 0.4 % (0.0-0.4); Lymphocytes Absolute Auto 1.3 X10*3/uL (1.2-4.9); Mean Corpuscular HGB Conc 33.2 g/dl (31.0-35.0); Mean Corpuscular Hemoglobin 28.9 pg (27.0-33.0); Mean Corpuscular Volume 87.1 fL (80.0-98.0); NRBC Abs Auto 0.000 X10*3/uL (0.0-0.012); NRBC Pct Auto 0.0 /100WBC (0.0-0.2); Platelet Count 160 X10*3/uL (160-400); Red Blood Count 2.56 X10*6/uL (4.20-5.50); White Blood Count 4.8 X10*3/uL (4.8-10.8)
[2025-07-01] MEDS: Fluticasone/Vilanterol 100/25 BLST.W.DEV 1 PUFF INHALE (07:25)
[2025-07-01 07:42] LABS: Glucose, Whole Blood 68 mg/dL (60-115)
--- NOTE | 2025-07-01 08:41 | HO.POSTANES ---
Post Anesthesia Evaluation Post Anesthesia Evaluation Date of Service: 07/01/25 Vital Signs: Vital Signs Temp Pulse Resp BP Pulse Ox O2 Del Method 07/01/25 07:39 97.6 F 65 18 170/74 H 96 Room Air 07/01/25 07:26 68 18 07/01/25 03:11 97.6 F 73 16 134/62 93 Room Air 06/30/25 23:05 98.1 F 72 17 138/64 98 Room Air 06/30/25 21:20 183/79 H Anesthesia: Monitored Mental Status: Awake Pain Control: Satisfactory Nausea/Vomiting: None Hydration: Adequate Anesthesia-Related Issues: No Anes. Related Issues
[2025-07-01 12:07] LABS: Glucose, Whole Blood 90 mg/dL (60-115)
[2025-07-01 16:22] LABS: Glucose, Whole Blood 140 mg/dL (60-115)
--- NOTE | 2025-07-01 17:22 | P.PNIM_ITS ---
Subjective Subjective Date of Service: 07/01/25 Interval History: Seen and evaluated during morning rounds while pt undergoing hemodialysis Reports she feels overall well and around baseline No lightheadedness or dizziness Denies abdominal pain Underwent EGD and colonoscopy last night with cauterization of bleeding colon ulcer H&H dropped to 7.4/22.3 this morning Review of Systems Review of Systems: Yes all other systems are reviewed and are negative Physical Exam 2 Exam: Exam: General: AOx3, no acute distress Resp: CTA bilaterally CVS: S1, S2, RRR GI: +BS, NT, no distention Skin: Warm, dry Neuro: Cranial nerves II-XII grossly intact bilaterally. Motor grossly intact bilaterally Extremities: No edema Psych: Appropriate affect Vital Signs: Vital Signs: Last Vital Signs Temp 98.2 F 07/01/25 15:24 Pulse 70 07/01/25 15:24 Resp 18 07/01/25 15:24 BP 148/67 H 07/01/25 15:24 Pulse Ox 100 07/01/25 15:24 O2 Del Method Room Air 07/01/25 15:24 BMI result Body Mass Index 21.2 Objective Data Active Medications Acetaminophen (Acetaminophen 325 Mg Tablet) 650 mg PO Q6H PRN PRN Reason: Pain, Mild 1-3,fever,headache Last Admin: 07/01/25 09:28 Dose: 650 mg Documented By: MING Ascorbic Acid (Ascorbic Acid 500 Mg Tablet) 500 mg PO BID [facility] Last Admin: 07/01/25 09:12 Dose: 500 mg Documented By: MING Atorvastatin Calcium (Atorvastatin Calcium 80 Mg Tablet) 80 mg PO BEDTIME [facility] Last Admin: 06/30/25 21:20 Dose: 80 mg Documented By: TITO Calcium Carbonate (Calcium Carbonate 750 Mg Tab.Chew) 750 mg PO Q4H PRN PRN Reason: Heartburn Carvedilol (Carvedilol 3.125 Mg Tablet) 3.125 mg PO BID [facility]; Protocol Last Admin: 07/01/25 11:12 Dose: Not Given Documented By: MING Non-Admin Reason: Off unit: Dialysis Dextrose (Dextrose 50 % 25 Gm/50 Ml Syringe) 25 gm IVPUSH Q15M PRN; Protocol PRN Reason: per Hypoglycemia Standing Ord. Ezetimibe (Ezetimibe 10 Mg Tablet) 10 mg PO DAILY [facility] Last Admin: 07/01/25 09:12 Dose: 10 mg Documented By: MING Fluticasone/Vilanterol (Fluticasone/Vilanterol 100/25 Blst.W.Dev) 1 puff INHALE RDAILY [facility] Last Admin: 07/01/25 07:25 Dose: 1 puff Documented By: PHOEBE Glucose (Glucose Gel 15 Gm Gel..Gram.) 15 gm PO Q15M PRN; Protocol PRN Reason: per Hypoglycemia Standing Ord. Hydralazine HCl (Hydralazine Hcl 25 Mg Tablet) 25 mg PO TID [facility]; Protocol Last Admin: 07/01/25 13:18 Dose: Not Given Documented By: MING Non-Admin Reason: Off unit: Dialysis Insulin Human Lispro (Insulin Lispro 100 Unit/Ml 3 Ml Vial) 0 unit SUBCUT QIDACHS [facility]; Protocol Last Admin: 07/01/25 16:20 Dose: Not Given Documented By: MING Non-Admin Reason: low poc Isosorbide Mononitrate (Isosorbide Mononitrate 30 Mg Tab.Er.24h) 30 mg PO DAILY [facility]; Protocol Last Admin: 07/01/25 09:12 Dose: 30 mg Documented By: MING Magnesium Hydroxide (Milk Of Magnesia 30 Ml Oral.Susp) 30 ml PO DAILY PRN PRN Reason: Constipation Melatonin (Melatonin 3 Mg Tablet) 6 mg PO BEDTIME PRN PRN Reason: Insomnia Last Admin: 06/30/25 21:29 Dose: 6 mg Documented By: TITO Montelukast Sodium (Montelukast Sodium 10 Mg Tablet) 10 mg PO BEDTIME [facility] Last Admin: 06/30/25 21:20 Dose: 10 mg Documented By: TITO Naloxone HCl (Naloxone Hcl 0.4 Mg/Ml Vial) 0.04 mg IVPUSH Q5M PRN PRN Reason: Excessive sedation or RR < 8 Naloxone HCl (Naloxone Hcl 0.4 Mg/Ml Vial) 0.04 mg IVPUSH Q5M PRN PRN Reason: Excessive sedation or RR < 8 Ondansetron HCl (Ondansetron Hcl 4 Mg/2 Ml Vial) 4 mg IVPUSH Q8H PRN PRN Reason: Nausea and Vomiting Last Admin: 06/30/25 08:51 Dose: 4 mg Documented By: JEFF Ondansetron HCl (Ondansetron Hcl 4 Mg/2 Ml Vial) 4 mg IVPUSH Q4H PRN PRN Reason: Nausea and Vomiting Pantoprazole Sodium (Pantoprazole Sodium 40 Mg/10 Ml Vial) 40 mg IVPUSH BID@0630,1630 [facility] Last Admin: 07/01/25 16:25 Dose: 40 mg Documented By: MING Sertraline HCl (Sertraline Hcl 50 Mg Tablet) 150 mg PO DAILY [facility] Last Admin: 07/01/25 09:12 Dose: 150 mg Documented By: MING Sodium Biphosphate/Sodium Phosphate (Sodium Phosphate,Gillespie-Dibasic 133 Ml Enema) 133 ml [place] ONCE PRN PRN Reason: Consult order Last Admin: 06/30/25 12:21 Dose: 133 ml Documented By: JEFF Sodium Chloride (0.9 % Sodium Chloride Flush 3 Ml Syringe) 3 ml IVFLUSH QSHIFT [facility] Last Admin: 07/01/25 11:57 Dose: Not Given Documented By: MING Non-Admin Reason: Previously Administered Vitamin D (Cholecalciferol (Vitamin D3) 25 Mcg Tablet) 25 mcg PO DAILY [facility] Last Admin: 07/01/25 09:12 Dose: 25 mcg Documented By: MING Labs 07/01/25 05:52 06/30/25 16:19 Labs: Laboratory Results - last 24 hr 06/30/25 07/01/25 07/01/25 20:46 05:52 07:36 MCV 87.1 MCH 28.9 MCHC 33.2 RDW 14.8 Plt Count 160 MPV 11.1 Immature Gran % (Auto) 0.4 Neut % (Auto) 64.8 Lymph % (Auto) 27.4 [place] % (Auto) 6.2 Eos % (Auto) 1.0 Baso % (Auto) 0.2 Lymph # (Auto) 1.3 [place] # (Auto) 0.3 Eos # (Auto) 0.1 Baso # (Auto) 0.0 Abs Immat Gran (auto) 0.02 Absolute Neuts (auto) 3.1 Absolute Nucleated RBC 0.000 Nucleated RBC % (auto) 0.0 POC Glucose 89 68 07/01/25 07/01/25 12:03 16:18 MCV MCH MCHC RDW Plt Count MPV Immature Gran % (Auto) Neut % (Auto) Lymph % (Auto) [place] % (Auto) Eos % (Auto) Baso % (Auto) Lymph # (Auto) [place] # (Auto) Eos # (Auto) Baso # (Auto) Abs Immat Gran (auto) Absolute Neuts (auto) Absolute Nucleated RBC Nucleated RBC % (auto) POC Glucose 90 140 H Assessment and Plan (1) Rectal bleeding: Status: Acute Plan 70-year-old Filipino-speaking female with history of ESRD on HD TuThSa, DM, CAD s/p CABG and PCI who presents to the emergency department with rectal bleeding LGIB GI bleeding in July had egd 08/28 showing gastritis and duodenitis; EGD/colo 2022 - hemorrhoids H&H with drop today to 7.4/22.3 On 06/30 underwent EGD: Duodenitis; colonoscopy: Diverticulitis, colon polyps x3, internal hemorrhoids, Dieulafoy with persistent oozing s/p 2 clips and hemo spray with bleeding stopped Continue holding brilinta trend cbc Switch to p.o. PPI GI following, recommend repeat colonoscopy in 6-12 months due to polyps and poor prep or earlier if clinically indicated, high-fiber diet, follow up for pathology results, and avoid straining at stool ESRD on HD // missed session on 06/26 underwent HD on sat, 06/28, 07/01 continue lasix CAD s/p CABG, s/p stent on brilinta, asa stopped in march will hold brilinta for GI bleed continue imdur, statin, zetia, coreg thrombocytopenia appears new, stable during hospital stay follow CBC HTN continue coreg, hydralazine hold norvasc to prevent hypotention in setting of rectal bleeding, but if bp remains high after HD may need to resume in am T2DM hold lantus while on clears SSI, POCs SHELIA intolerant of CPAP Mood Continue sertraline Pt requires continued hospitalization for stabilization and monitoring of labs post scoping. Given drop in H&H today and active lower GI bleed noted by colonoscopy, pt will require an additional overnight stay for trending H&H to ensure hemostasis. Quality Stroke Does the patient have a stroke diagnosis?: No VTE Prior VTE?: No VTE Risk Level:: Medical - moderate - high VTE Device Contraindication: N/A - Device Ordered VTE Drug Contraindication: Treatment Not Indicated
[2025-07-01 20:50] LABS: Glucose, Whole Blood 195 mg/dL (60-115)
[2025-07-01] MEDS: 0.9 % Sodium Chloride Flush 3 ML SYRINGE IVFLUSH (22:48)
[2025-07-02] VITALS (7 sets, daily range): BP systolic 141–170; BP diastolic 65–79; PULSE 59–66; RESP 16–20; TEMP 36.2–36.6; O2SAT 96–100
[2025-07-02 07:13] LABS: MANUAL DIFF FLAG NO
[2025-07-02 07:20] LABS: Hematocrit 22.9 % (37.0-47.0); Hemoglobin 7.4 g/dl (12.0-16.0); Imm Gran Abs Auto 0.02 X10*3/uL (0.00-0.03); Imm Gran Pct Auto 0.5 % (0.0-0.4); Lymphocytes Absolute Auto 0.9 X10*3/uL (1.2-4.9); Mean Corpuscular HGB Conc 32.3 g/dl (31.0-35.0); Mean Corpuscular Hemoglobin 28.5 pg (27.0-33.0); Mean Corpuscular Volume 88.1 fL (80.0-98.0); NRBC Abs Auto 0.000 X10*3/uL (0.0-0.012); NRBC Pct Auto 0.0 /100WBC (0.0-0.2); Platelet Count 162 X10*3/uL (160-400); Red Blood Count 2.60 X10*6/uL (4.20-5.50); White Blood Count 4.0 X10*3/uL (4.8-10.8)
[2025-07-02 07:34] LABS: Glucose, Whole Blood 101 mg/dL (60-115)
[2025-07-02] MEDS: Fluticasone/Vilanterol 100/25 BLST.W.DEV 1 PUFF INHALE (07:35)
[2025-07-02 07:39] LABS: Anion Gap 19 (12-20); Blood Urea Nitrogen 33 mg/dL (9-16); Calcium 9.6 mg/dL (8.4-10.2); Carbon Dioxide 28 mmol/L (22-29); Chloride 99 mmol/L (96-108); Creatinine Clr Calc Pharmacy 6.7; Estimated Glomerular Filt Rate 7; Potassium 3.6 mmol/L (3.3-5.1); Sodium 142 mmol/L (135-145)
[2025-07-02] MEDS: 0.9 % Sodium Chloride Flush 3 ML SYRINGE IVFLUSH (08:26)
[2025-07-02 11:30] LABS: Glucose, Whole Blood 164 mg/dL (60-115)
--- NOTE | 2025-07-02 14:56 | PM.GIPN ---
Subjective Subjective Date of Service: 07/02/25 Interval History: no further rectal bleeding no adbominal pain no n/v hgb has been stable Critical Care Time (minutes): 0 Physical Exam Exam: Exam: EXAM: GENERAL: The patient is well developed and nontoxic. VITAL SIGNS:see workflow HEENT: Nonicteric sclerae, PERRLA, EOMI. Oropharynx clear. Moist mucous membranes. Conjunctivae appear well perfused. No thyroid mass. CHEST: Chest wall is nontender. HEART: Regular rate and rhythm without murmurs. LUNGS: Clear to auscultation bilaterally. ABDOMEN: Soft, positive bowel sounds, nontender, no organomegaly.no flank tenderness SKIN: No rash, no excessive bruising, petechiae, or purpura. NEUROLOGIC: Cranial nerves II-XII intact without motor/sensory deficit. Psych: normal affect AV fistula noted Vital Signs: Vital Signs: Last Vital Signs Temp 97.4 F 07/02/25 11:21 Pulse 64 07/02/25 11:21 Resp 20 07/02/25 11:21 BP 156/68 H 07/02/25 11:21 Pulse Ox 100 07/02/25 11:21 O2 Del Method Room Air 07/02/25 11:21 BMI result Body Mass Index 21.2 Objective Data Labs 07/02/25 06:28 07/02/25 06:28 Labs: Laboratory Results - last 24 hr 07/01/25 07/01/25 07/02/25 16:18 20:46 06:28 WBC 4.0 L RBC 2.60 L Hgb 7.4 L Hct 22.9 L MCV 88.1 MCH 28.5 MCHC 32.3 RDW 14.7 Plt Count 162 MPV 11.1 Immature Gran % (Auto) 0.5 H Neut % (Auto) 67.6 Lymph % (Auto) 23.7 [place] % (Auto) 6.6 Eos % (Auto) 1.3 Baso % (Auto) 0.3 Lymph # (Auto) 0.9 L [place] # (Auto) 0.3 Eos # (Auto) 0.1 Baso # (Auto) 0.0 Abs Immat Gran (auto) 0.02 Absolute Neuts (auto) 2.7 Absolute Nucleated RBC 0.000 Nucleated RBC % (auto) 0.0 Sodium 142 Potassium 3.6 Chloride 99 Carbon Dioxide 28 Anion Gap 19 BUN 33 H Creatinine 5.95 H* Estim Creat Clear Calc 6.7 Estimated GFR 7 POC Glucose 140 H 195 H Random Glucose 96 Calcium 9.6 07/02/25 07/02/25 07:27 11:20 WBC RBC Hgb Hct MCV MCH MCHC RDW Plt Count MPV Immature Gran % (Auto) Neut % (Auto) Lymph % (Auto) [place] % (Auto) Eos % (Auto) Baso % (Auto) Lymph # (Auto) [place] # (Auto) Eos # (Auto) Baso # (Auto) Abs Immat Gran (auto) Absolute Neuts (auto) Absolute Nucleated RBC Nucleated RBC % (auto) Sodium Potassium Chloride Carbon Dioxide Anion Gap BUN Creatinine Estim Creat Clear Calc Estimated GFR POC Glucose 101 164 H Random Glucose Calcium Procedures Date of Service Date of Service: 07/02/25 Progress Note: A&P Assessment and plan (1) Rectal bleeding: Status: Acute Plan 1/ Acute blood loss anemia, 2/2 dieulafoy lesion in the right colon, s/p clipping --hg stable and no further bleeding PLAN: /1-- ok to have reg diet, can restart anticoagulation tomorrow 2/ can one dose of IV iron if needed Time Spent With Patient Time: Total time managing care of this patient today ____ minutes. Quality Stroke Does the patient have a stroke diagnosis?: No VTE Prior VTE?: No VTE Risk Level:: Medical - moderate - high VTE Device Contraindication: N/A - Device Ordered VTE Drug Contraindication: Treatment Not Indicated
--- NOTE | 2025-07-02 15:24 | PM.DS ---
DS: Providers Provider Date of Service: 07/02/25 Date of admission: 06/28/25 14:26 Date of discharge: 07/02/25 Primary care physician: Patricia Ingram MD Consults: 06/28/25 14:30 Consult to Gastroenterology Routine Consulting Provider: [facility] Reason for consultation: GI bleeding on brilinta Has provider been notified: Yes Consult to Nephrology Routine Consulting Provider: [facility] Reason for consultation: ESRD on HD, missed 2 sessions Has provider been notified: No 06/28/25 15:37 Consult to Cardiology Routine Consulting Provider: [facility] Reason for consultation: GI bleed, on brilinta s/p stent; may need scope ?risk stratifcation Has provider been notified: No DS: Diagnosis Discharge Diagnosis (1) Rectal bleeding: Status: Acute DS: Summary Hospital Course Hospital Course: From admission HPI: Date of Service: 06/28/25 Attending physician on admission: Rizwana Villegas Chief Complaint: rectal bleeding This is a 70 year old female with multiple medical issues including ESRD on hemodialysis and coronary artery disease status post CABG and PCIs on Brilinta who presents to the emergency department with rectal bleeding. History was obtained with the assistance of manager category via [employer]. Patient reports multiple episodes of bright red blood mixed with stool since . She has mild associated generalized abdominal pain, she denies any nausea or vomiting. No fever, chills. In the emergency department H/H stable at her baseline at 8.9/26. Hemoccult blood was positive. In the past had EGD showing gstritits and duodenitis. Outpatient cardiology notes from march indicate rectal bleeding and her asa was stopped at that time. Overall the patient is a poor historian and details are limited. Hospital Course: Pt was admitted to the hospital for rectal bleeding and underwent both colonoscopy and endoscopy by Dr. Kwong and GI on 06/30. EGD found duodenitis, and colonoscopy found diverticulitis, colon problems x3, internal hemorrhoids, and a Dieulafoy's lesion with persistent oozing that received clips x2 and hemo spray with hemostasis achieved. Patient's H&H dropped the following day to 7.3 and pt was monitored overnight with stable H&H. Pt had missed dialysis session on 06/26 prior to admission, and underwent HD on 06/28 and 12 2 while in the hospital. Pt should follow up with GI in 2-3 weeks for pathology/tissue results in his recommended to repeat colonoscopy in 6-12 months due to polyps and poor bowel prep, or earlier if clinically indicated. Additional recommendation is for high-fiber diet, avoid straining at stool, Sitz baths, and/or Anusol suppository/cream. Patient's Brilinta had been held during hospital stay due to bleeding; this can be resumed the following day after discharge. Pt should follow up with primary care in 1 week for post hospitalization visit as well as for repeat CBC to monitor for resolving anemia. Pt should also follow up with Nephrology for ESRD and resuming normal dialysis schedule. She should resume all other home medications. Time Attestation Discharge Coordination Time (in mins): 35 Quality: Safe Use of Opioids Does Pt have an Active Cancer Diagnosis on the Problem List?: No Quality: Stroke Does the patient have a stroke diagnosis?: No Physical Exam Exam: Exam: General: AOx3, no acute distress Resp: CTA bilaterally CVS: S1, S2, RRR GI: +BS, NT, no distention Skin: Warm, dry Neuro: Cranial nerves II-XII grossly intact bilaterally. Motor grossly intact bilaterally Extremities: No edema Psych: Appropriate affect Vital Signs: Vital Signs: Last Vital Signs Temp 97.4 F 07/02/25 11:21 Pulse 64 07/02/25 11:21 Resp 20 07/02/25 11:21 BP 156/68 H 07/02/25 11:21 Pulse Ox 100 07/02/25 11:21 O2 Del Method Room Air 07/02/25 11:21 BMI result Body Mass Index 21.2 DS: Data Data Completed and Pending Completed studies during hospitalization [Text1]: Procedures Excision of Stomach, Pylorus, Via Natural or Artificial Opening Endoscopic, Diagnostic (08/26/24) Insertion of Infusion Device into Superior Vena Cava, Percutaneous Approach (07/11/21) Insertion of Tunneled Vascular Access Device into Chest Subcutaneous Tissue and Fascia, Percutaneous Approach (07/11/21) Inspection of Lower Intestinal Tract, Via Natural or Artificial Opening Endoscopic (02/09/23) Inspection of Upper Intestinal Tract, Via Natural or Artificial Opening Endoscopic (02/09/23) Performance of Urinary Filtration, Intermittent, Less than 6 Hours Per Day (04/08/25) Transfusion of Nonautologous Red Blood Cells into Peripheral Vein, Percutaneous Approach (03/03/25) Pending studies at discharge: Pending at discharge 06/30/25 19:09 Surgical [PTH] Routine Labs on day of discharge: Laboratory Results - last 24 hr 07/01/25 07/01/25 07/02/25 16:18 20:46 06:28 WBC 4.0 L RBC 2.60 L Hgb 7.4 L Hct 22.9 L MCV 88.1 MCH 28.5 MCHC 32.3 RDW 14.7 Plt Count 162 MPV 11.1 Immature Gran % (Auto) 0.5 H Neut % (Auto) 67.6 Lymph % (Auto) 23.7 [facility] % (Auto) 6.6 Eos % (Auto) 1.3 Baso % (Auto) 0.3 Lymph # (Auto) 0.[address] [facility] # (Auto) 0.3 Eos # (Auto) 0.1 Baso # (Auto) 0.0 Abs Immat Gran (auto) 0.02 Absolute Neuts (auto) 2.7 Absolute Nucleated RBC 0.000 Nucleated RBC % (auto) 0.0 Sodium 142 Potassium 3.6 Chloride 99 Carbon Dioxide 28 Anion Gap 19 BUN 33 H Creatinine 5.95 H* Estim Creat Clear Calc 6.7 Estimated GFR 7 POC Glucose 140 H 195 H Random Glucose 96 Calcium 9.6 07/02/25 07/02/25 07:27 11:20 WBC RBC Hgb Hct MCV MCH MCHC RDW Plt Count MPV Immature Gran % (Auto) Neut % (Auto) Lymph % (Auto) [facility] % (Auto) Eos % (Auto) Baso % (Auto) Lymph # (Auto) [facility] # (Auto) Eos # (Auto) Baso # (Auto) Abs Immat Gran (auto) Absolute Neuts (auto) Absolute Nucleated RBC Nucleated RBC % (auto) Sodium Potassium Chloride Carbon Dioxide Anion Gap BUN Creatinine Estim Creat Clear Calc Estimated GFR POC Glucose 101 164 H Random Glucose Calcium Discharge Plan Discharge Anticipated Discharge Date/Time: 07/02/25 13:00 Patient Disposition: Home, Self-Care Discharge Diagnosis: Acute lower GI bleed Referrals: Ramakrishna Kwong MD [Physician, Gastroenterology] - 1 Week Referral Note: F/U for colonoscopy on 06/30 for pathology results. s/p Dieulafoy clipping Renetta Ingramo, MD [Primary Care Provider, Internal Medicine] - 1 Week Discharge Medications: New docusate sodium [Colace] 100 mg capsule 100 mg PO DAILY Qty: 90 0RF Rx Instructions: Take 1 capsule daily to prevent constipation. You may take an additional tablet in the evening as necessary if you are experiencing constipation. polyethylene glycol 3350 [Miralax] 17 gram/dose powder 17 g PO DAILY PRN (Reason: constipation) Qty: 119 0RF Continued amlodipine 10 mg tablet 10 mg PO DAILY 90 Days Qty: 90 3RF atorvastatin 80 mg tablet 80 mg PO BEDTIME Qty: 90 3RF hydralazine 25 mg tablet 25 mg PO TID Qty: 270 3RF ascorbic acid (vitamin C) [Vitamin C] 500 mg tablet 1 tab PO BID montelukast 10 mg tablet 10 mg PO BEDTIME budesonide-formoterol [Symbicort] 80-4.5 mcg/actuation HFA aerosol inhaler 2 puff inhalation BID acetaminophen 500 mg tablet 1,000 mg PO Q8H PRN (Reason: Pain) insulin aspart U-100 [Novolog FlexPen U-100 Insulin] 100 unit/mL (3 mL) insulin pen See Protocol subcut BIDAC@7399,4304 Protocol: Insulin Correction Scale Less than or equal to 110 ---- Give (units): 0 111 to 150 Give (units): 3 151 to 200 Give (units): 5 201 to 250 Give (units): 7 251 to 300 Give (units): 9 301 to 350 Give (units): 11 Greater than 350 Give (units): 13 Call if Blood Glucose > : 399 melatonin 5 mg Tablet 5 mg PO BEDTIME PRN (Reason: Insomnia) ticagrelor [Brilinta] 90 mg Tablet 90 mg PO BID pantoprazole 40 mg tablet,delayed release (DR/EC) 40 mg PO DAILY@0630 carvedilol 3.125 mg tablet 3.125 mg PO BID ezetimibe 10 mg tablet 10 mg PO DAILY diclofenac sodium 1 % Gel 1 g TOPICAL TID PRN (Reason: discomfort) Rx Instructions: apply to single elbow, wrist or hand; for hand includes palm/fingers/back of hand insulin glargine [Lantus U-100 Insulin] 100 unit/mL solution 5 unit subcut BID sertraline 100 mg tablet 150 mg PO DAILY furosemide 40 mg tablet 80 mg PO BID Qty: 240 2RF isosorbide mononitrate 30 mg tablet extended release 24 hr 30 mg PO DAILY cholecalciferol (vitamin D3) 25 mcg (1,000 unit) tablet 25 mcg PO DAILY Discontinued docusate sodium 100 mg Capsule 100 mg PO BID PRN (Reason: Constipation) Discharge Orders: Discharge Order (Routine); Ordered 07/02/25 Ordered By: Leigh Gupta Activity on Discharge: As tolerated Stand Alone Forms: Patient Portal Discharge page Print Language: Salvadorean Care Plan Goals: See below Health Concerns: Lower GI bleed Symptomatic acute blood loss anemia Dieulafoy's lesion Internal hemorrhoids Missed dialysis Plan of Treatment: You were admitted to the hospital for rectal bleeding and underwent both endoscopy and colonoscopy by GI on 06/30. Colonoscopy found a Dieulafoy's lesion with persistent oozing that treated with clipping and hemospray to stop the bleeding. Your blood levels were noted to be lower than normal but stable the past two days. You did not require a blood transfusion while in the hospital. You had missed your last dialysis session prior to admission, and received 2 dialysis sessions while in the hospital -- follow up with Dr. Kwong in GI in 2-3 weeks for pathology results from tissue samples taken during colonoscopy. -- colonoscopy also found internal, and recommendation is for a high-fiber diet, avoid straining at stool, Sitz baths, and/or Anusol suppository/cream. -- for constipation you are being prescribed docusate 100 mg daily; you may also take an additional 100 mg in the evening if you are experiencing constipation. Additionally, he will be prescribed MiraLax 17 g daily as necessary for constipation. -- you will also need to repeat colonoscopy in 6-12 months due to polyps and poor bowel prep, or earlier if clinically indicated. -- your Brilinta was held due to bleeding; you may resume this starting tomorrow morning. -- follow up with your PCP in 1 week for post hospitalization visit and routine labs to monitor for resolving anemia. -- follow up with nephrology for your ESRD and resume normal dialysis sessions. Assessment: See discharge summary
--- NOTE | 2025-07-02 15:30 | MHC.CM.PN ---
Patient has been medically cleared for dc to home today, self care. IMM was addressed with Patient.
[2025-07-02 16:01] LABS: Glucose, Whole Blood 179 mg/dL (60-115)
--- NOTE | 2025-07-02 19:25 | P.PNNP_ITS ---
Subjective Subjective Date of Service: 07/02/25 Interval history: Seen and examined, events noted Physical Exam 2 Vital Signs: Vital Signs: Last Vital Signs Temp 97.1 F 07/02/25 15:42 Pulse 66 07/02/25 15:42 Resp 18 07/02/25 15:42 BP 153/67 H 07/02/25 15:42 Pulse Ox 100 07/02/25 15:42 O2 Del Method Room Air 07/02/25 15:42 BMI result Body Mass Index 21.2 Const: General: cooperative, comfortable, alert and awake Nutritional Appearance: average body habitus and well nourished O rientation/consciousness: patient oriented x3 Limitations: no limitations and language barrier HEENT: Head: Yes normal to inspection Ears: hearing grossly normal bilaterally General nose exam: Normal external nose present Face and sinus: Yes normal facial exam Mouth: Normal oral and palatal mucosa present Throat: Yes posterior oropharynx normal Neck: Neck: Yes normal visual inspection Chest: Chest palpation & inspection: normal inspection of the chest Resp: Effort & Inspection: normal respiratory effort, able to speak in complete sentences, no respiratory distress and no use of accessory muscles A uscultation: clear to auscultation bilaterally Cardio: Jugular venous distension: no JVD Rate: regular rate Rhythm: r egular rhythm GI: Inspection: Yes normal to inspection and No distended Palpation (GI): S oft to palpation and not firm Rectal Exam - Female: other (Maroon stool) Skin: General skin exam: no rashes or lesions noted Neuro: General: patient oriented x3, moves all extremities and CN's II-XI intact bilaterally Extrem: General: No pedal edema Objective Data Labs 07/02/25 06:28 07/02/25 06:28 Labs: Laboratory Results - last 24 hr 07/01/25 07/02/25 07/02/25 20:46 06:28 07:27 WBC 4.0 L RBC 2.60 L Hgb 7.4 L Hct 22.9 L MCV 88.1 MCH 28.5 MCHC 32.3 RDW 14.7 Plt Count 162 MPV 11.1 Immature Gran % (Auto) 0.5 H Neut % (Auto) 67.6 Lymph % (Auto) 23.7 [place] % (Auto) 6.6 Eos % (Auto) 1.3 Baso % (Auto) 0.3 Lymph # (Auto) 0.9 L [place] # (Auto) 0.3 Eos # (Auto) 0.1 Baso # (Auto) 0.0 Abs Immat Gran (auto) 0.02 Absolute Neuts (auto) 2.7 Absolute Nucleated RBC 0.000 Nucleated RBC % (auto) 0.0 Sodium 142 Potassium 3.6 Chloride 99 Carbon Dioxide 28 Anion Gap 19 BUN 33 H Creatinine 5.95 H* Estim Creat Clear Calc 6.7 Estimated GFR 7 POC Glucose 195 H 101 Random Glucose 96 Calcium 9.6 07/02/25 07/02/25 11:20 15:46 WBC RBC Hgb Hct MCV MCH MCHC RDW Plt Count MPV Immature Gran % (Auto) Neut % (Auto) Lymph % (Auto) [place] % (Auto) Eos % (Auto) Baso % (Auto) Lymph # (Auto) [place] # (Auto) Eos # (Auto) Baso # (Auto) Abs Immat Gran (auto) Absolute Neuts (auto) Absolute Nucleated RBC Nucleated RBC % (auto) Sodium Potassium Chloride Carbon Dioxide Anion Gap BUN Creatinine Estim Creat Clear Calc Estimated GFR POC Glucose 164 H 179 H Random Glucose Calcium Procedures Date of Service Date of Service: 07/02/25 Assessment & Plan Assessment and plan (1) Rectal bleeding: Status: Acute Plan ESRD: HD TTS Anemia: multifact including ongoing GIB and underlyng Nephrogenic Anemia MBD of ESRD REC: cont HD TTS, GI w/u as noted; track Hb Will follow w team Time Spent With Patient Time: Total time managing care of this patient today ____ minutes. Progress Note: Quality Stroke Does the patient have a stroke diagnosis?: No
== END 2025-07-02 17:28 | disposition home or self-care (01) | DRG 377 ==
LOC: HO.ED 14:41 → HO.EDOVER 14:50 → HO.IMC 14:51
PROVIDERS: Hospitalist; Internal Medicine Gastroenterology; Admitting Provider Physician Assistant Medical; Emergency Provider Emergency Medicine; PCP Family Medicine; Visit Provider Student in an Organized Health Care Education/Training Program
PROC: 0DB98ZX Excision of Duodenum, Via Natural or Artificial Opening Endoscopic, Diagnostic (ICD-10-PCS; principal; 2025-06-30 14:00)
DX: K29.81 Duodenitis with bleeding (principal); N18.6 End stage renal disease; I12.0 Hypertensive chronic kidney disease with stage 5 chronic kidney disease or end stage renal disease; D62 Acute posthemorrhagic anemia; K63.81 Dieulafoy lesion of intestine; I25.10 Atherosclerotic heart disease of native coronary artery without angina pectoris; D69.6 Thrombocytopenia, unspecified; G47.33 Obstructive sleep apnea (adult) (pediatric); F39 Unspecified mood [affective] disorder; K63.5 Polyp of colon; K64.0 First degree hemorrhoids; E11.22 Type 2 diabetes mellitus with diabetic chronic kidney disease; Z99.2 Dependence on renal dialysis; Z91.158 Patient's noncompliance with renal dialysis for other reason; Z95.1 Presence of aortocoronary bypass graft; Z79.4 Long term (current) use of insulin; Z79.899 Other long term (current) drug therapy
CPT/HCPCS: 36415; 71045; 74176; 80048; 80051; 80053; 82272; 82565; 82947; 84484; 84520; 85025; 85027; 85610; 86850; 86900; 86901; 88305; 88313; 88342; 90656; 90999; 93005; 94640; 99285; J2003; J2405; J2470; J2704; J7120

== ENCOUNTER → 2025-06-28 12:29 | Outpatient (BNV) | payer OTHER, SELFPAY | PROVIDERS: Admitting Provider Physician Assistant Medical; Emergency Provider Emergency Medicine; PCP Family Medicine; Visit Provider Radiology Diagnostic Radiology | DX: R06.02 Shortness of breath (principal) | CPT/HCPCS: 71045 ==

== ENCOUNTER 2025-06-28 14:26 | Outpatient (BNV) | payer OTHER, SELFPAY | END 2025-06-29 15:42 | PROVIDERS: Admitting Provider Physician Assistant Medical; Emergency Provider Emergency Medicine; PCP Family Medicine; Visit Provider Radiology Diagnostic Radiology | DX: K57.90 Diverticulosis of intestine, part unspecified, without perforation or abscess without bleeding (principal); K63.89 Other specified diseases of intestine; N18.9 Chronic kidney disease, unspecified | CPT/HCPCS: 74176 ==

== ENCOUNTER → 2025-06-28 14:26 | Outpatient (BNV) | payer OTHER, SELFPAY | PROVIDERS: Admitting Provider Physician Assistant Medical; Emergency Provider Emergency Medicine; PCP Family Medicine; Visit Provider Internal Medicine Gastroenterology | DX: K62.5 Hemorrhage of anus and rectum (principal) | CPT/HCPCS: 99223; 99232 ==

== ENCOUNTER → 2025-06-28 14:26 | Outpatient (BNV) | payer OTHER, SELFPAY | PROVIDERS: Admitting Provider Physician Assistant Medical; Emergency Provider Emergency Medicine; PCP Family Medicine; Visit Provider Internal Medicine Cardiovascular Disease | DX: I10 Essential (primary) hypertension (principal); Z95.1 Presence of aortocoronary bypass graft; K62.5 Hemorrhage of anus and rectum | CPT/HCPCS: 93010; 99223 ==

== ENCOUNTER → 2025-06-28 14:26 | Outpatient (BNV) | payer OTHER, SELFPAY | PROVIDERS: Admitting Provider Physician Assistant Medical; Emergency Provider Emergency Medicine; PCP Family Medicine; Visit Provider Physician Assistant Medical | DX: K62.5 Hemorrhage of anus and rectum (principal) | CPT/HCPCS: 99223; 99233; 99239; 99499 ==

== ENCOUNTER 2025-07-18 19:45 | Emergency (ER) | payer OTHER, SELFPAY ==
[2025-07-18 19:51] VITALS: BP 177/77; PULSE 64; RESP 16; TEMP 36.4; O2SAT 99; BMI 33.2
--- NOTE | 2025-07-18 19:59 | ED.MALEGU ---
HPI - Male Genitourinary General Chief complaint: Recheck/Abnormal Lab/Rx Stated complaint: dialysis/low blood count Time Seen by Provider: 07/18/25 20:32 History of Present Illness HPI Narrative: Patient is a 70-year-old female history of end-stage renal disease currently getting dialysis on Monday. Called by her doctor to come into the ED for a low blood count. Per her doctor her hemoglobin was 6. Patient reports no chest pain no shortness of breath no diaphoresis no dizziness no nausea no vomiting. She is from home. No blood in her stool her stool has been normal in color and consistency. Has a history of gastritis in the past. No dizziness. Has a history of blood transfusion in the past. Related Data Home Medications ?Medication ?Instructions ?Recorded ?Confirmed sertraline 100 mg tablet 150 mg PO DAILY 06/10/20 06/28/25 ascorbic acid (vitamin C) 500 mg 1 tab PO BID 12/03/20 06/28/25 tablet (Vitamin C) montelukast 10 mg tablet 10 mg PO BEDTIME 12/03/20 06/28/25 acetaminophen 500 mg tablet 1,000 mg PO Q8H PRN Pain 02/08/23 06/28/25 budesonide-formoterol HFA 80 2 puff inhalation BID 02/08/23 06/28/25 mcg-4.5 mcg/actuation aerosol inhaler (Symbicort) cholecalciferol (vitamin D3) 25 25 mcg PO DAILY 01/01/24 06/28/25 mcg (1,000 unit) tablet melatonin 5 mg tablet 5 mg PO BEDTIME PRN Insomnia 08/13/24 06/28/25 ticagrelor 90 mg tablet (Brilinta) 90 mg PO BID 08/13/24 06/28/25 insulin aspart U-100 100 unit/mL See Protocol subcut BIDAC@0730,1630 08/26/24 06/28/25 (3 mL) subcutaneous pen (Novolog FlexPen U-100 Insulin aspart) isosorbide mononitrate 30 mg 30 mg PO DAILY 10/02/24 06/28/25 tablet,extended release 24 hr pantoprazole 40 mg tablet,delayed 40 mg PO DAILY@0630 10/10/24 06/28/25 release carvedilol 3.125 mg tablet 3.125 mg PO BID 04/08/25 06/28/25 ezetimibe 10 mg tablet 10 mg PO DAILY 04/08/25 06/28/25 diclofenac sodium 1 % topical gel 1 g topical TID PRN discomfort 06/28/25 06/28/25 insulin glargine 100 unit/mL 5 unit subcut BID 06/28/25 06/28/25 subcutaneous solution (Lantus U-100 Insulin) Previous Rx's ?Medication ?Instructions ?Recorded amlodipine 10 mg tablet 10 mg PO DAILY 90 days #90 tabs 12/06/22 atorvastatin 80 mg tablet 80 mg PO BEDTIME #90 tabs 08/17/23 furosemide 40 mg tablet 80 mg (2 x 40 mg) PO BID #240 tabs 10/02/24 hydralazine 25 mg tablet 25 mg PO TID #270 tabs 06/10/25 docusate sodium 100 mg capsule 100 mg PO DAILY #90 caps 07/02/25 (Colace) polyethylene glycol 3350 17 17 g PO DAILY PRN constipation 07/02/25 gram/dose oral powder (Miralax) #119 grams Allergies Allergy/AdvReac Type Severity Reaction Status Date / Time No Known Allergies Allergy Verified 07/18/25 19:52 Review of Systems Review of Systems: No chest pain or shortness breath no dizziness no symptoms Yes all other systems are reviewed and are negative [facility] Past Medical History Attestation statement: The following information was validated with the patient. 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 End stage chronic kidney disease Edema Atherosclerotic cardiovascular disease SHELIA (obstructive sleep apnea) Hypercalcemia Asthma DJD (degenerative joint disease) Chronic kidney disease Other and unspecified hyperlipidemia Type 2 diabetes mellitus with unspecified complications Essential hypertension Surgical History Status post coronary artery bypass graft History of hemorrhoidectomy (01/30/23) H/O colonoscopy Hemorrhoids H/O angioplasty History of tubal ligation History of coronary artery bypass graft (~2017) Family History Family History Father Cardiovascular disease Hypertension Mother Cardiovascular disease Hypertension Social History Social History Household Members: Children Household Members Other:: son, dog Housing: Apartment Housing Other:: senior apartment Are you a primary lawn care technician to a significant other at home: No Do you presently have visiting nurse or other home services: No Alcohol intake: never Patient Tobacco Use Status: Never used Tobacco Smoked in Last 30 Days: No e-Cigarette/Vaping Use: Never Used Second Hand Smoke Exposure: No Use of substances other than those prescribed or required for medical reasons: No Advance Directives: Yes Advance Directives on File: Yes Advance Directives Date on File: 12/03/20 Do you have a plan to hurt others: No Plan service: No 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al status: disabled 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 Oriented X3. No acute distress. Eyes: Pupils equal, round and reactive to light. ENT: Pharynx normal. Neck: Normal inspection. Neck supple. No lymph nodes noted. No crepitus CVS: Normal heart rate and rhythm. Pulses normal. Normal S1 and S2 Respiratory: No respiratory distress. Breath sounds normal. No Wheezing. No rales Abdomen: Soft and nontender. No rigidity. No distention. good BS x4 Skin: Skin warm and dry. Normal skin color. Normal skin turgor. Extremities: No lower extremity edema. Neurovascular intact to all extremities. No Lacerations. No Rash Neuro: Oriented X 3. No motor deficit. No sensory deficit. Moving all extermities. No slurred speech Vital Signs: Vital Signs: Last Vital Signs Temp 98.1 F 07/19/25 01:00 Pulse 65 07/19/25 01:00 Resp 21 H 07/19/25 01:00 BP 185/64 H 07/19/25 01:00 Pulse Ox 97 07/19/25 01:00 O2 Del Method Room Air 07/19/25 01:00 BMI result Body Mass Index 33.2 Course Course Course Narrative: This is a Rapid Medical Exam performed in triage by Danisha Guerrero PA-C. Full HPI, ROS and PE to be performed by primary ED provider. 70-year-old Canadian-speaking female with a past medical history of ESRD on HD (T/T/S) last dialyzed yesterday, anemia, gastritis, GERD asthma, HLD presenting to the ED c/o low H&H noted at dialysis yesterday. Was told to come to the ED today. Also reports chest tightness PE: NAD, nontoxic Plan: EKG, labs Medical Decision Making Medical Decision Making [facility] Narrative: Patient's rectal exam was done. Came back as heme negative. Patient's hemoglobin actually came back at 7.2. This is approximately baseline. Patient's electrolyte consistent with end-stage renal disease her potassium today is 4.1 her creatinine is 5.1. No acute distress. Will attempt to contact patient's cosmetologist apprentice Finally got in contact with patient's cosmetologist apprentice wanted us to give 1 unit of blood. The unit of blood was given over 4 hours given patient's end-stage renal disease. Will discharge after the transfusion Differential Diagnosis Differential Diagnoses: The differential diagnosis associated with the presentation includes Anemia, GI bleed Admission/Observation Consideration of admission/observation: Escalation of care including admission/observation considered Lab Data [facility] Lab Attestation statement: I reviewed the patient's lab results. 07/18/25 20:22 07/18/25 20:22 Labs: Lab Results 07/18/25 07/18/25 Range/Units 20:22 20:49 WBC 3.8 L (4.8-10.8) X10*3/uL RBC 2.42 L (4.20-5.50) X10*6/uL Hgb 7.2 L (12.0-16.0) g/dl Hct 22.5 L (37.0-47.0) % MCV 93.0 (80.0-98.0) fL MCH 29.8 (27.0-33.0) pg MCHC 32.0 (31.0-35.0) g/dl RDW 17.3 H (11.0-16.0) % Plt Count 184 (160-400) X10*3/uL MPV 10.2 (9.4-12.3) fL Immature Gran % (Auto) 0.3 (0.0-0.4) % Neut % (Auto) 62.0 (45-73) % Lymph % (Auto) 25.2 (20-40) % [place] % (Auto) 10.3 (2-11) % Eos % (Auto) 1.9 (0-4) % Baso % (Auto) 0.3 (0-2) % Lymph # (Auto) 1.0 L (1.2-4.9) X10*3/uL [place] # (Auto) 0.4 (0.1-1.2) X10*3/uL Eos # (Auto) 0.1 (0.0-0.4) X10*3/uL Baso # (Auto) 0.0 (0.0-0.2) X10*3/uL Abs Immat Gran (auto) 0.01 (0.00-0.03) X10*3/uL Absolute Neuts (auto) 2.3 (2.0-8.3) x10*3/uL Absolute Nucleated RBC 0.000 (0.0-0.012) X10*3/uL Nucleated RBC % (auto) 0.0 (0.0-0.2) /100WBC PT 13.6 H (11.2-13.5) SEC INR 1.1 (0.9-1.1) Sodium 141 (135-145) mmol/L Potassium 4.1 (3.3-5.1) mmol/L Chloride 96 (96-108) mmol/L Carbon Dioxide 30 H (22-29) mmol/L Anion Gap 19 (12-20) BUN 38 H (9-16) mg/dL Creatinine 5.17 H* (0.5-1.4) mg/dL Estim Creat Clear Calc 9.0 Estimated GFR 8 Random Glucose 292 H (60-115) mg/dL Calcium 10.0 (8.4-10.2) mg/dL Magnesium 2.3 (1.6-2.6) mg/dL Total Bilirubin 0.3 (0.0-1.0) mg/dL Direct Bilirubin 0.1 (0.0-0.5) mg/dL AST 16 (5-31) U/L ALT < 6 (0-31) U/L Alkaline Phosphatase 139 H (39-117) U/L Troponin I High Sens 21.1 H (<3.5-17.0) ng/L Total Protein 7.1 (6.5-8.0) g/dL Albumin 4.0 (3.5-5.0) g/dL Stool Occult Blood NEGATIVE (NEGATIVE) Blood Type B Positive Antibody Screen NEGATIVE Crossmatch See Detail Independent Interpretation I performed an independent interpretation of an: EKG (Sinus heart rate is 60 MN QRS QTC normal) Discharge Plan Discharge Clinical Impression: Anemia Patient Disposition: Home, Self-Care Instructions: Anemia (ED) Prescriptions: No Action amlodipine 10 mg tablet 10 mg PO DAILY 90 Days Qty: 90 3RF atorvastatin 80 mg tablet 80 mg PO BEDTIME Qty: 90 3RF hydralazine 25 mg tablet 25 mg PO TID Qty: 270 3RF ascorbic acid (vitamin C) [Vitamin C] 500 mg tablet 1 tab PO BID montelukast 10 mg tablet 10 mg PO BEDTIME budesonide-formoterol [Symbicort] 80-4.5 mcg/actuation HFA aerosol inhaler 2 puff inhalation BID acetaminophen 500 mg tablet 1,000 mg PO Q8H PRN (Reason: Pain) insulin aspart U-100 [Novolog FlexPen U-100 Insulin] 100 unit/mL (3 mL) insulin pen See Protocol subcut BIDAC@4353,0102 Protocol: Insulin Correction Scale Less than or equal to 110 ---- Give (units): 0 111 to 150 Give (units): 3 151 to 200 Give (units): 5 201 to 250 Give (units): 7 251 to 300 Give (units): 9 301 to 350 Give (units): 11 Greater than 350 Give (units): 13 Call MD if Blood Glucose > : 399 melatonin 5 mg Tablet 5 mg PO BEDTIME PRN (Reason: Insomnia) ticagrelor [Brilinta] 90 mg Tablet 90 mg PO BID pantoprazole 40 mg tablet,delayed release (DR/EC) 40 mg PO DAILY@0630 carvedilol 3.125 mg tablet 3.125 mg PO BID ezetimibe 10 mg tablet 10 mg PO DAILY diclofenac sodium 1 % Gel 1 g TOPICAL TID PRN (Reason: discomfort) Rx Instructions: apply to single elbow, wrist or hand; for hand includes palm/fingers/back of hand insulin glargine [Lantus U-100 Insulin] 100 unit/mL solution 5 unit subcut BID docusate sodium [Colace] 100 mg capsule 100 mg PO DAILY Qty: 90 0RF Rx Instructions: Take 1 capsule daily to prevent constipation. You may take an additional tablet in the evening as necessary if you are experiencing constipation. polyethylene glycol 3350 [Miralax] 17 gram/dose powder 17 g PO DAILY PRN (Reason: constipation) Qty: 119 0RF sertraline 100 mg tablet 150 mg PO DAILY furosemide 40 mg tablet 80 mg PO BID Qty: 240 2RF isosorbide mononitrate 30 mg tablet extended release 24 hr 30 mg PO DAILY cholecalciferol (vitamin D3) 25 mcg (1,000 unit) tablet 25 mcg PO DAILY Referrals: Patricia Ingram MD [Primary Care Provider, Internal Medicine] Referral Note: Please go to dialysis tomorrow. Told them that hemoglobin was 7.2. We have a 7.4 hemoglobin here on July 02 Print Language: Canadian
--- NOTE | 2025-07-18 20:00 | ECG_ITS ---
Test Reason : chest tightness Blood Pressure : */* mmHG Vent. Rate : 61 BPM Atrial Rate : 61 BPM P-R Int : 150 ms QRS Dur : 92 ms QT Int : 464 ms P-R-T Axes : 53 20 70 degrees QTcB Int : 467 ms Normal sinus rhythm Incomplete right bundle branch block Septal infarct , age undetermined Abnormal ECG When compared with ECG of 28-Jun-2025 12:47, Incomplete right bundle branch block has replaced Right bundle branch block Septal infarct is now Present Referred By: Danisha Guerrero Electronically Signed By: Juan Carlos Morel
--- OUTSIDE RECORDS SUMMARY | 2025-07-18 20:19 | XMS_ITS | Encounter Summary ---
Author Organization [facility] Address [address] [facility] [address] [place] [address] Phone Care Team Providers Care Personnel Psychologist Name Role Phone Patricia Ingram MD Primary Care Provider [phone] Encounter Details Date Type Department Care Team (Late st Contact Info) Description 12/21/2020 Orders Only [facility] [address]MA[address] [place] [phone] Yared Powell MD [address] [facility] [address] [place] [phone] Nephrotic range proteinuria; Renal disorder due to type 2 diabetes mellitus <Diabetic nephropathy> (HCC); Stage 5 chronic kidney disease (HCC); Renal osteodystrophy Social History Tobacco Use Types Packs/Day Years Used Date Smoking Tobacco: Former Cigarettes 0 Q uit: 07/31/1979 Comments:Smoking History Inf o:Unknown [...] disorder due to type 2 diabetes mellitus <Unspecified DM Medication; Diabetic nephropathy> (HCC) Stage 5 chronic kidney disease (HCC) Renal osteodystrophy documented in this encounter Care Teams Personnel Psychologist Relationship Specialty Start Date End Date Patricia Ingram MD [address] [place] [id number] PCP - General 08/10/20 documented as of this encounter
--- OUTSIDE RECORDS SUMMARY | 2025-07-18 20:19 | XMS_ITS | Encounter Summary ---
Author Organization [facility] Address [address] [facility] [address] [place] [address] Phone Care Team Providers Care Operating Room Nurse Name Role Phone Patricia Ingram MD Primary Care Provider [phone] Reason for Visit * Reason Comments Med Refill Encounter Details Date Type Department Care Team ([facility] st Contact Info) Description 04/29/2021 Refill [facility] [address] JOSE LUIS [address] [place] [phone] Yared Powell MD [address] [facility] [address] [place] [phone] Social History Tobacco Use Types Packs/Day Years [...] on filedocumented in this encounter Care Teams Operating Room Nurse Relationship Specialty Start Date End Date Patricia Ingram MD [address] [place] [phone] PCP - General 08/10/20 documented as of this encounter
--- OUTSIDE RECORDS SUMMARY | 2025-07-18 20:19 | XMS_ITS | Encounter Summary ---
Author Organization [employer] Address [address] [facility] 7t [place] [address] Care Team Providers Care Head Of Sales Promotion Name Role Phone Patricia Ingram MD Primary Care Provider [phone] Reason for Visit * Reason Comments Med Refill Encounter Details Date Type Department Care Team ([facility] st Contact Info) Description 08/17/2023 Refill [facility] [address] [place], [place] [phone] Alejandra Sharma MD [address] [place], [place] [phone] Social History Tobacco Use Types Packs/Day Years [...] t he electric, gas, oil or water [employer] threatened to shut off services in your [...] Description 07/21/2025 3:00 PM EST Office Visit [facility] [address] [place] [address] Patricia Ingram MD [address] [place] [address] 10/10/2025 11:00 AM EDT Office Visit [facility] [address] [place] [address] Boby, Jasmyne, OD [address] [place] [address] documented as of this encounter Visit Diagnoses Not on filedocumented in this encounter Care Teams Head Of Sales Promotion Relationship Specialty Start Date End Date Patricia Ingram MD [address] [place] [address] PCP - General Family Medicine [facility] documented as of this encounter
--- OUTSIDE RECORDS SUMMARY | 2025-07-18 20:19 | XMS_ITS | Data Portability ---
Author Organization [employer] [facility] Address [address] [place] [address] Care Team Providers Care Senior Bi Developer Name Role Phone [facility] Referring Provider Assessment Encounter Date Assessment Date Assessment LastModified by Organization Details LastModified Time 08/04/2023 08/04/2023 68 yo F with 6 yrs of chronic cough, tessalon perles not working. No CP, SOB, epigastic or abd pain. No tobacco use. VS wnl. Lungs CTAB per medic. Recommended f/up PCP for further w/up. In meantime, will send rx guaifenesin PRN cough. [email or web address] Not available 08/04/2023 16:31:35 Plan of Treatment Reminders Order Date Submit Date Provider Last Modified By Organization Details Last Modified Time Details Appointments None recorded. Lab None recorded. Referral None recorded. Procedures None recorded. Surgeries None recorded. Imaging None recorded. Medication Orders guaifenesin 100 mg/5 mL oral liquid 2023 024 [facility], [address] [place] [address], [id number], 08:28:58 Patient TargetsNo targets recorded. Patient InstructionsNo [...] Updated DateTime 4 14 /min 98.4 [degF] 09845.8 g 152.4 cm 98 % 90 /min [...] ICD10 Code Diagnosis IMO Codes Diagnosis Note [id number] HARIKA WEI MD [facility] - [address] [phone] 08/04/2023 16:00:11 08/05/2023 15:33:32 Cough 83987142 R05.9 Health Concerns Section Related Observation LastModified by Organization Detai ls LastModified Time None Recorded Concern Status LastModified by Organization Details LastModified Time None Recorded Advance Directives Directive None Recorded Payers Insurance Date Sequence Insurance Name Policy Number Policy Bergeron Covered Member ID Bergeron Member ID Guarantor Name 03/19/2024 1 [facility] - DOS ON OR AFTER 2022 - DUAL ELIGIBLE - LONGTERM OPTIONS AND ONE CARE (MEDICARE REPLACEMENT/ADV ANTAGE - HMO) Aldries Capas [id number] Aldries Capas Notes Date Note Type Note Provider Name and Address Organization Details Recorded Time 08/04/2023 text/html HPI: HX: 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 Jillian Samuels not helping. .................. .................. .................. .................. .................. .................. .................. ............... CRC Nurse Triage Notes (Ruperto Preston): Comments: Reviewed - Ivy JEAN .................. .................. .................. .................. .................. .................. .................. ............... Stock Lifter Note From Roshan Sol: Pt caox3 complains [...] supine. Pt covid negative via rapid POC. [facility] [place] to pt's local pharmacy. Advised to follow up with PCP for PFT and referral to ENT. Red flags, supportive care and pt education discussed. .................. .................. .................. .................. .................. .................. .................. ............... Disposition: Fulfilled HARIKA WEI MD [address] [facility],[address], [place], [address], [employer]ARG[employer] 08/04/2023 16:57:50 OBGyn Episode No OBEpisode recorded.
--- OUTSIDE RECORDS SUMMARY | 2025-07-18 20:19 | XMS_ITS | Encounter Summary ---
Author Organization [employer] [facility] Address [address] [facility] [address] [place] [address] Care Team Providers Care Personal Fitness Manager Name Role Phone Ptaricia Ingram MD Primary Care Provider [phone] Reason for Visit * Reason Onset Date Comments Hospital Follow-up 09/02/2024 Encounter Details Date Type Department Care Team ([facility] st Contact Info) Description 09/02/2024 Telephone [facility] [address] [place], [place] [phone] Patricia Ingram MD [address] [place], [place] [phone] Hospital Follow-up Social History Tobacco Use Types [...] from pt requesting a HDF appt. Hospital: [facility] Date of admission: 08/26/2024 Discharge date: Diagnosed:inflamed intestines , stomach ulcers *Send message to [place] Clinical Care Coordinators documented in this encounter Plan of Treatment Upcoming Encounters Date Type Department Care Team (Late st Contact Info) Description 07/21/2025 3:00 PM EST Office Visit [facility] [address] [place] [address] Patricia Ingram MD [address] [place] [address] 10/10/2025 11:00 AM EDT Office Visit [facility] [address] [place] [address] Boby, Jasmyne, OD [address] [place] [address] documented as of this encounter Visit Diagnoses Not on filedocumented in this encounter Care Teams Personal Fitness Manager Relationship Specialty Start Date End Date Ptaricia Ingram MD [address] [place] [address] PCP - General Family Medicine 07/12/12 [facility] 08/03/24 documented as of this encounter
--- OUTSIDE RECORDS SUMMARY | 2025-07-18 20:19 | XMS_ITS | Encounter Summary ---
Author Organization [facility] Address [address] [facility] 200 [place] [address] Phone Care Team Providers Care Carton Folder Name Role Phone Patricia Ingram MD Primary Care Provider Reason for Visit * Reason Comments Med Refill Encounter Details Date Type Department Care Team ([facility] st Contact Info) Description 09/07/2022 Refill [facility] [address] [place] [place] [phone] Kentrell Leos MD [address] [place] [address] Social History Tobacco Use Types Packs/Day Years Used Date Smoking Tobacco: Former Cigarettes 0 Q uit: 07/31/1979 Smokeless Tobacco: Never Comments:Smoking [...] filedocumented in this encounter Care Teams Carton Folder Relationship Specialty Start Date End Date Patricia Ingram MD [address] [place], [place] [phone] PCP - General 08/10/20 documented as of this encounter
--- OUTSIDE RECORDS SUMMARY | 2025-07-18 20:19 | XMS_ITS | Encounter Summary ---
Author Organization [facility] Address [address] [facility] [facility] 200 [place] [address] Phone Care Team Providers Care Core Machine Operator Name Role Phone Patricia Ingram MD Primary Care Provider [phone] Reason for Visit * Reason Comments Med Refill Encounter Details Date Type Department Care Team (Late st Contact Info) Description 11/08/2022 Refill [facility] [address] [place] [place] [address] Feliciano Baldwin MD Social History Tobacco [...] on filedocumented in this encounter Care Teams Core Machine Operator Relationship Specialty Start Date End Date Patricia Ingram MD 230 [place] [address] PCP - General 08/10/20 documented as of this encounter
--- OUTSIDE RECORDS SUMMARY | 2025-07-18 20:19 | XMS_ITS | Encounter Summary ---
Author Organization [employer] Address [address] [facility] 7t [place] [address] Care Team Providers Care Commercial Solar Sales Consultant Name Role Phone Patricia Ingram MD Primary Care Provider [phone] Encounter Details Date Type Department Care Team ([facility] st Contact Info) Description 10/03/2024 Orders Only [facility] MED[facility] 230 [place], [place] [phone] Patricia Ingram MD 230 [place] [address] Encounter for screening for respiratory tuberculosis (Primary [...] the past 12 months, has t he [employer], oil or water [email or web address] threatened to shut off services in your [...] PM EST Office Visit [facility] MED[facility] 230 [place] [address] Patricia Ingram MD 230 [place] [address] 10/10/2025 11:00 AM EDT Office Visit [facility] OPTOMETRY [address] [place] [address] Boby, Jasmyne, OD 230 [place] [address] documented as of this encounter Procedures Procedure Name Priority Date/Time Associated Diagnosis Comments T-SPOT(R).TB Routine 12/02/2024 12:00 PM EDT Encounter for screening for respiratory tuberculosis documented in this encounter Results * (ABNORMAL) T-SPOT??.TB (12/02/2024 12:00 PM EDT) T Spot TB Positive( A) Negative [facility] Comment: Diagnosing or excluding tuberculosis (TB) [...] as aquantitative test. TS PANEL A 10 [facility] TS PANEL B 0 [facility] Negative Control Passed [facility] Positive Control Passed [facility] Comment:For additional infor henrietta, please refer tohttp://education.[employer]/faq/OLO706(This link is being provided for informational/educational purposes only.)THIS TEST WAS PERFORMED AT:[employer] [id number] [place] [address]IMDLKHI W. MASON,MD,PHD 12/02/2024 12:0 0 PM EDT 12/02/2024 1:10 PM EDT us Patricia Ingram MD LAB BLOOD ORDERABLES Final Resul t [facility] [address] [place] [address] [phone] documented in this encounter Visit Diagnoses Diagnosis Encounter for screening for respiratory tuberculosis- Primary documented in this encounter Care Teams Commercial Solar Sales Consultant Relationship Specialty Start Date End Date Patricia Ingram MD [address] [place] [address] PCP - General Family Medicine [facility] documented as of this encounter
--- OUTSIDE RECORDS SUMMARY | 2025-07-18 20:19 | XMS_ITS | Encounter Summary ---
Author Organization [employer] Address [address] [facility] 7t [place] [address] Care Team Providers Care Harbor Tug Captain Name Role Phone Patricia Ingram MD Primary Care Provider Reason for Visit * Reason Comments Med Refill Encounter Details Date Type Department Care Team ([facility] st Contact Info) Description 04/28/2025 Refill [facility] 230 [place], [place] [phone] Patricia Ingram MD 230 [place], [place] [phone] Vitamin deficiency Social History Tobacco Use Types [...] Description 07/21/2025 3:00 PM EST Office Visit [facility] [address] [place] [address] Patricia Ingram MD 230 [place] [address] 10/10/2025 11:00 AM EDT Office Visit [facility] OPTOMETRY [address] [place] [address] Boby, Jasmyne, OD 230 [place] [address] documented as of this encounter Visit Diagnoses Diagnosis Vitamin deficiency Unspecified vitamin deficiency documented in this encounter Additional Health Concerns Assessment Noted Time PHQ-9 Depression Total Score: 13 025 10:00 AM EDT documented as of this encounter Care Teams Harbor Tug Captain Relationship Specialty Start Date End Date Patricia Ingram MD [address] [place] [address] PCP - General Family Medicine 07/12/12 [facility] 08/03/24 documented as of this encounter
--- OUTSIDE RECORDS SUMMARY | 2025-07-18 20:19 | XMS_ITS | Encounter Summary ---
Author Organization [employer] [facility] Address 75 [facility] 7t [place] [address] Care Team Providers Care Artificial Plastic Eye Maker Name Role Phone Patricia Ingram MD Primary Care Provider [phone] Reason for Visit * Reason Comments Med Refill Encounter Details Date Type Department Care Team ([facility] st Contact Info) Description 11/14/2023 Refill [facility]INE 230 [place], [place] [phone] Patricia Ingram MD 230 [place], [place] [phone] Constipation, unspecified Social History Tobacco Use Types [...] Visit [facility] MED[facility] 230 [place] [address] Patricia Ingram MD [address] [place] [address] 10/10/2025 11:00 AM EDT Office Visit [facility] OPTOMETRY [address] [place] [address] Boby, Jasmyne, OD 230 [place] [address] documented as of this encounter Visit Diagnoses Diagnosis Constipation, unspecified documented in this encounter Care Teams Artificial Plastic Eye Maker Relationship Specialty Start Date End Date Patricia Ingram MD 230 [place] [address] PCP - General Family Medicine 07/12/12 [facility] 08/03/24 documented as of this encounter
--- OUTSIDE RECORDS SUMMARY | 2025-07-18 20:19 | XMS_ITS | Encounter Summary ---
Author Organization [facility] Address [address] [facility] 200 [place] [address] Phone Care Team Providers Care Park Landscape Architect Name Role Phone Patricia Ingram MD Primary Care Provider [phone] Reason for Visit * Reason Comments Med Refill Encounter Details Date Type Department Care Team ([facility] st Contact Info) Description 09/07/2021 Refill [facility] [address] [place] [address] [place] [phone] Yared Powell MD [address] [facility] 204 [place] [phone] Social History Tobacco Use Types Packs/Day Years [...] on filedocumented in this encounter Care Teams Park Landscape Architect Relationship Specialty Start Date End Date Patricia Ingram MD 230 [place] [address] PCP - General 08/10/20 documented as of this encounter
--- OUTSIDE RECORDS SUMMARY | 2025-07-18 20:19 | XMS_ITS | Encounter Summary ---
Author Organization [employer] Address 75 [facility] 7t [place] [address] Care Team Providers Care Ammunition Assembly Laborer Name Role Phone Patricia Ingram MD Primary Care Provider [phone] Encounter Details Date Type Department Care Team (Late st Contact Info) Description 07/08/2025 Orders Only [facility] [address] [place] [address] Adria Bailey MD 230 [place] [address] Gastrointestinal hemorrhage, unspecified gastrointestinal hemorrhage type (Primary Dx) Social History Tobacco Use Types [...] Description 07/21/2025 3:00 PM EST Office Visit [facility] 230 [place] [address] Patricia Ingram MD 230 [place] [address] 10/10/2025 11:00 AM EDT Office Visit [facility] OPTOMETRY [address] [place] [address] Boby, Jasmyne, OD 230 [place] [address] Scheduled Orders Name Type Priority Associated Diagnoses Orde r Schedule CBC auto differential Lab Routine Gastrointestinal hemorrhage, unspecified gastrointestinal hemorrhage type Expected: 07/08/2025 (Approximate), Expires: 07/08/2026 documented as of this encounter Goals Goal Patient Goal Type Associated Problems Recent Progress Patient-Stated? Author Help patients manage their type 2 diabetes Care Plan Help patients manage their type 2 diabetes Ulysses Mccallum Weekly blood pressure task Care Plan Weekly blood pressure task Ulysses Mccallum Help patients manage their type 2 diabetes Care Plan Help patients manage their type 2 diabetes Ulysses Mccallum Patient has diabetic eye disease Care Plan Patient has diabetic eye disease Ulysses Mccallum Help patients manage their type 2 diabetes Care Plan Help patients manage their type 2 diabetes Ulysses Mccallum Patient has chronic kidney disease Care Plan Patient has chronic kidney disease No Jayant Ulysses Help patients manage their type 2 diabetes Care Plan Help patients manage their type 2 diabetes No Jayant Ulysses Patient has diabetic neuropathy Care Plan Patient has diabetic neuropathy No Jayant Ulysses Weekly blood pressure task Care Plan Weekly blood pressure task No Jayant Ulysses Weekly blood pressure task Care Plan Weekly blood pressure task No Jayant Ulysses Weekly blood pressure task Care Plan Weekly blood pressure task No Jayant Ulysses Patient has diabetic eye disease Care Plan Patient has diabetic eye disease No Jayant Ulysses Patient has diabetic eye disease Care Plan Patient has diabetic eye disease No Jayant Ulysses Patient has diabetic eye disease Care Plan Patient has diabetic eye disease No Jayant Ulysses Patient has chronic kidney disease Care Plan Patient has chronic kidney disease No Jayant Ulysses Patient has chronic kidney disease Care Plan Patient has chronic kidney disease No Jayant Ulysses Patient has chronic kidney disease Care Plan Patient has chronic kidney disease No Jayant Ulysses Patient has diabetic neuropathy Care Plan Patient has diabetic neuropathy No Jayant Ulysses Patient has diabetic neuropathy Care Plan Patient has diabetic neuropathy No Jayant Ulysses Patient has diabetic neuropathy Care Plan Patient has diabetic neuropathy No Jayant Ulysses Weekly blood pressure task Care Plan Weekly blood pressure task No Jesi Quiroga RN Weekly blood pressure task Care Plan Weekly blood pressure task No Jesi Quiroga RN Weekly blood pressure task Care Plan Weekly blood pressure task No Jesi Quiroga RN Weekly blood pressure task Care Plan Weekly blood pressure task No Jesi Quiroga RN Patient has diabetic eye disease Care Plan Patient has diabetic eye disease No Jesi Quiroga RN Patient has diabetic eye disease Care Plan Patient has diabetic eye disease No Jesi Quiroga RN Patient has diabetic eye disease Care Plan Patient has diabetic eye disease No Jesi Quiroga RN Patient has diabetic eye disease Care Plan Patient has diabetic eye disease No Jesi Quiroga RN Patient has chronic kidney disease Care Plan Patient has chronic kidney disease No Jesi Quiroga RN Patient has chronic kidney disease Care Plan Patient has chronic kidney disease No Jesi Quiroga RN Patient has chronic kidney disease Care Plan Patient has chronic kidney disease No Jesi Quiroga RN Patient has chronic kidney disease Care Plan Patient has chronic kidney disease No Jesi Quiroga RN Patient has diabetic neuropathy Care Plan Patient has diabetic neuropathy No Jesi Quiroga RN Patient has diabetic neuropathy Care Plan Patient has diabetic neuropathy No Jesi Quiroga RN Patient has diabetic neuropathy Care Plan Patient has diabetic neuropathy No Jesi Quiroga RN Patient has diabetic neuropathy Care Plan Patient has diabetic neuropathy No Jesi Quiroga RN Weekly blood pressure task Care Plan Weekly blood pressure task No Reece Kerline, PharmD Weekly blood pressure task Care Plan Weekly blood pressure task No Reece Kerline, PharmD Weekly blood pressure task Care Plan Weekly blood pressure task No Reece Kerline, PharmD Weekly blood pressure task Care Plan Weekly blood pressure task No Reece Kerline, PharmD Patient has diabetic eye disease Care Plan Patient has diabetic eye disease No Reece Kerline, PharmD Patient has diabetic eye disease Care Plan Patient has diabetic eye disease No Reece Kerline, PharmD Patient has diabetic eye disease Care Plan Patient has diabetic eye disease No Reece Kerline, PharmD Patient has diabetic eye disease Care Plan Patient has diabetic eye disease No Reece Kerline, PharmD Patient has chronic kidney disease Care Plan Patient has chronic kidney disease No Reece Kerline, PharmD Patient has chronic kidney disease Care Plan Patient has chronic kidney disease No Reece Kerline, PharmD Patient has chronic kidney disease Care Plan Patient has chronic kidney disease No Reece Kerline, PharmD Patient has chronic kidney disease Care Plan Patient has chronic kidney disease No Reece Kerline, PharmD Patient has diabetic neuropathy Care Plan Patient has diabetic neuropathy No Reece, Kerline, PharmD Patient has diabetic neuropathy Care Plan Patient has diabetic neuropathy No Reece, Kerline, PharmD Patient has diabetic neuropathy Care Plan Patient has diabetic neuropathy No Reece Kerline, PharmD Patient has diabetic neuropathy Care Plan Patient has diabetic neuropathy No Reece Kerline, PharmD Weekly blood pressure task Care Plan Weekly blood pressure task No Adria Bailey MD Weekly blood pressure task Care Plan Weekly blood pressure task No Adria Bailey MD Weekly blood pressure task Care Plan Weekly blood pressure task Adria Degroot MD Weekly blood pressure task Care Plan Weekly blood pressure task Adria Degroot MD Patient has diabetic eye disease Care Plan Patient has diabetic eye disease Adria Degroot MD Patient has diabetic eye disease Care Plan Patient has diabetic eye disease No Adria Bailey MD Patient has diabetic eye disease Care Plan Patient has diabetic eye disease Adria Degroot MD Patient has diabetic eye disease Care Plan Patient has diabetic eye disease No Leo Adria, MD Patient has chronic kidney disease Care Plan Patient has chronic kidney disease Adria Degroot MD Patient has chronic kidney disease Care Plan Patient has chronic kidney disease Adria Degroot MD Patient has chronic kidney disease Care Plan Patient has chronic kidney disease Adria Degroot MD Patient has chronic kidney disease Care Plan Patient has chronic kidney disease Adria Degroot MD Patient has diabetic neuropathy Care Plan Patient has diabetic neuropathy Adria Degroot MD Patient has diabetic neuropathy Care Plan Patient has diabetic neuropathy Adria Degroot MD Patient has diabetic neuropathy Care Plan Patient has diabetic neuropathy Adria Degroot MD Patient has diabetic neuropathy Care Plan Patient has diabetic neuropathy Adria Degroot MD documented as of this encounter Visit Diagnoses Diagnosis Gastrointestinal hemorrhage, unspecified gastrointestinal hemorrhage type- Primary documented in this encounter Additional Health Concerns Active [...] neuropathy 06/17/2025 Patient has diabetic neuropathy 06/17/2025 Weekly blood pressure task 07/04/2025 Weekly blood pressure task 07/04/2025 Weekly blood pressure task 07/04/2025 Weekly blood pressure task 07/04/2025 Patient has diabetic eye disease 07/04/2025 Patient has diabetic eye disease 07/04/2025 Patient has diabetic eye disease 07/04/2025 Patient has diabetic eye disease 07/04/2025 Patient has chronic kidney disease 07/04/2025 Patient has chronic kidney disease 07/04/2025 Patient has chronic kidney disease 07/04/2025 Patient has chronic kidney disease 07/04/2025 Patient has diabetic neuropathy 07/04/2025 Patient has diabetic neuropathy 07/04/2025 Patient has diabetic neuropathy 07/04/2025 Patient has diabetic neuropathy 07/04/2025 Weekly blood pressure task 07/07/2025 Weekly blood pressure task 07/07/2025 Weekly blood pressure task 07/07/2025 Weekly blood pressure task 07/07/2025 Patient has diabetic eye disease 07/07/2025 Patient has diabetic eye disease 07/07/2025 Patient has diabetic eye disease 07/07/2025 Patient has diabetic eye disease 07/07/2025 Patient has chronic kidney disease 07/07/2025 Patient has chronic kidney disease 07/07/2025 Patient has chronic kidney disease 07/07/2025 Patient has chronic kidney disease 07/07/2025 Patient has diabetic neuropathy 07/07/2025 Patient has diabetic neuropathy 07/07/2025 Patient has diabetic neuropathy 07/07/2025 Patient has diabetic neuropathy 07/07/2025 Weekly blood pressure task 07/08/2025 Weekly blood pressure task 07/08/2025 Weekly blood pressure task 07/08/2025 Weekly blood pressure task 07/08/2025 Patient has diabetic eye disease 07/08/2025 Patient has diabetic eye disease 07/08/2025 Patient has diabetic eye disease 07/08/2025 Patient has diabetic eye disease 07/08/2025 Patient has chronic kidney disease 07/08/2025 Patient has chronic kidney disease 07/08/2025 Patient has chronic kidney disease 07/08/2025 Patient has chronic kidney disease 07/08/2025 Patient has diabetic neuropathy 07/08/2025 Patient has diabetic neuropathy 07/08/2025 Patient has diabetic neuropathy 07/08/2025 Patient has diabetic neuropathy 07/08/2025 Assessment Noted Time PHQ-9 Depression Total Score: 13 025 10:00 AM EDT documented as of this encounter Care Teams Ammunition Assembly Laborer Relationship Specialty Start Date End Date Patricia Ingram MD [address] [place] [id number] PCP - General Family Medicine 07/12/12 [facility] 08/03/24 documented as of this encounter
--- OUTSIDE RECORDS SUMMARY | 2025-07-18 20:19 | XMS_ITS | Encounter Summary ---
Author Organization [employer] Address 75 [facility] 7t [place] [address] Care Team Providers Care Radiology Resident Name Role Phone Patricia Ingram MD Primary Care Provider [phone] Reason for Visit * Reason Onset Date Comments Appointment Request 06/17/2025 Encounter Details Date Type Department Care Team ([facility] Contact Info) Description 06/17/2025 Telephone [facility] MED[facility]INE 230 [place], [place] [phone] Patricia Ingram MD 230 [place], [place] [phone] Appointment Request Social History Tobacco Use Types [...] call back to schedule appointment with PCP. Mini Bar Attendant unable to schedue due to limited availability. Please contact pt at [phone]. (South African Speaker) documented in this encounter Plan of Treatment Upcoming Encounters Date Type Department Care Team ([facility] st Contact Info) Description 07/21/2025 3:00 PM EST Office Visit [facility] [address] [place] [address] Patricia Ingram MD [address] [place] [address] 10/10/2025 11:00 AM EDT Office Visit [facility] OPTOMETRY [address] [place] [address] Jasmyne Landis OD 230 [place] [address] documented as of this encounter Goals Goal [...] documented as of this encounter Care Teams Radiology Resident Relationship Specialty Start Date End Date Patricia Ingram MD [address] [place] [address] PCP - General Family Medicine 07/12/12 [facility] 08/03/24 documented as of this encounter
--- OUTSIDE RECORDS SUMMARY | 2025-07-18 20:19 | XMS_ITS | Clinical Summary ---
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 ROTATE INJECTION SITES. Active Blood Glucose Monitoring Suppl (GetMyBoat [place] Lite) w/Device kit USE DIRECTED Active ezetimibe (Zetia) 10 MG tablet Take 10 mg by mouth in the morning. Active FeroSul 325 (65 Fe) MG tablet TAKE 1 TABLET BY MOUTH TWICE DAILY IN THE MORNING AND IN THE EVENING WITH ORANGE JUICE 180 tablet 1 Active Additional Information Patient not taking.Reported on 07/08/2025 Acetaminophen Extra Strength 500 MG tabletIndication s:Pain TAKE 2 TABLETS BY MOUTH EVERY 8 HOURS NEEDED 60 tablet 3 Active polyethylene glycol, PEG, 3350 (HealthyLax) 17 g packet Mix 1 packet in 8 ounces of water, juice, coffee or tea and drink once a day NEEDED. MAY INCREASE TO TWICE DAILY IF NEEDED 30 packet 1 024 Active polyvinyl alcohol (Liquifilm Tears) 1.4 % ophthalmic solution INSTILL 1 DROP IN EACH EYE THREE TIMES DAILY IN THE MORNING, AT NOON, AND AT BEDTIME NEEDED FOR DRY EYES Active Blood Pressure Monitor misc Check BP daily 1 each 025 Active carvedilol (Coreg) 3.125 MG tablet Take 1 tablet (3.125 mg) by mouth with breakfast and with evening meal. 60 tablet 11 07/15/20 12:21 PM EST Active isosorbide mononitrate ER (Imdur) 30 MG 24 hr tablet Take 1 tablet (30 mg) by mouth Once per day. Do not crush or chew. 30 tablet 07/15/20 12:21 PM EST 2025 Active melatonin 5 MG tabletIndication s:Psychophysiolo gical insomnia TAKE 1 TABLET BY MOUTH AT BEDTIME 90 tablet 1 Active sucralfate (Carafate) 1 g tablet Take 1 tablet by mouth before meals as needed, up to 3 times daily. 90 tablet 3 Active furosemide (Lasix) 40 MG tablet Take 2 tablets (80 mg) by mouth 2 times daily. Patient requests to change to 2 tabs bid 540 tablet 07/15/20 12:21 PM EST Active TRUEplus Lancets 33G miscIndications: Type 2 diabetes mellitus with chronic kidney disease on chronic dialysis, with long-term current use of insulin (HCC) TEST BLOOD SUGAR FOUR TIMES DAILY 100 each Active hydrALAZINE (Apresoline) 25 MG tablet Take 25 mg by mouth 3 times daily. Active NovoLOG FLEXPEN 100 UNIT/ML pen INJECT SUBCUTANEOUSLY PER SLIDING SCALE WITH BREAKFAST AND SUPPER, & 3 UNITS WITH LUNCH. BLOOD SUGAR 100-149 = 3U, 150-199 = 5U, 200-249 = 7U, 250-299 = 9U, 300-349 = 11U, 350-399 = 13U, > 399 = 15U AND CALL MD 15 mL 5 Active Alcohol Swabs (Alcohol Prep) 70 % padsIndications: Type 2 diabetes mellitus with diabetic chronic kidney disease, unspecified CKD stage, unspecified whether exterminator helper termite insulin use (HCC) USE DIRECTED FOUR TIMES DAILY 100 each 07/15/20 25 12:21 PM EST Active amLODIPine (Norvasc) 10 MG tablet TAKE 1 TABLET BY MOUTH EVERY MORNING 90 tablet 3 07/15/20 12:21 PM EST Active atorvastatin (Lipitor) 80 MG tablet Take 1 tablet (80 mg) by mouth at bedtime. 90 tablet 3 07/15/20 25 12:21 PM EST Active montelukast (Singulair) 10 MG tabletIndication s:Moderate persistent asthma without complication TAKE 1 TABLET BY MOUTH AT BEDTIME 30 tablet 5 025 Active sertraline (Zoloft) 100 MG tabletIndication s:Mood disorder (CMS/HCC) TAKE 1 AND 1/2 TABLETS BY MOUTH AT BEDTIME 135 tablet 1 Active cholecalciferol (Vitamin D-3) 25 MCG tablet TAKE 1 TABLET BY MOUTH EVERY MORNING 90 tablet 1 Active Lantus SoloStar 100 UNIT/ML pen Administer 5 units subcutaneously daily 3 mL Active docusate sodium (Colace) 100 MG capsule TAKE 1 CAPSULE BY MOUTH TWICE DAILY NEEDED FOR CONSTIPATION 60 capsule 5 06/17/20 4:00 PM EST Active cetirizine (ZyrTEC) 5 MG tablet Take 1 tablet (5 mg) by mouth Once per day. 90 tablet 3 025 Active diphenhydrAMINE (BENADryl) 25 MG tablet Take 1 tablet (25 mg) by mouth every 8 (eight) hours if needed for itching. 90 tablet 3 025 Active Ascorbic Acid (vitamin C) 500 MG tabletIndication s:Vitamin deficiency TAKE 1 TABLET BY MOUTH TWICE DAILY IN THE MORNING AND IN THE EVENING 90 tablet 3 025 Active Brilinta 90 MG tablet TAKE 1 TABLET BY MOUTH TWICE DAILY IN THE MORNING AND IN THE EVENING 60 tablet 3 07/15/20 25 12:21 PM EST 025 Active pantoprazole (ProtoNix) 40 MG EC tablet TAKE 1 TABLET BY MOUTH EVERY MORNING 90 tablet 1 06/17/20 25 4:00 PM EST 025 Active FREESTYLE LITE test stripIndications :Diabetic nephropathy associated with type 2 diabetes mellitus (HCC) USE DIRECTED TO TEST BLOOD SUGAR FOUR TIMES DAILY 100 strip 5 07/15/20 25 12:21 PM EST 025 Active Symbicort 80-4.5 MCG/ACT inhalerIndicatio ns:Wheezing INHALE 2 PUFFS BY MOUTH TWICE DAILY IN THE MORNING AND IN THE EVENING, RINSE MOUTH AFTER USING. 10.2 g 1 07/15/20 25 12:21 PM EST Active Diclofenac Sodium 1 % gel Apply 1 g topically 3 times daily. 120 g 1 07/15/20 25 12:21 PM EST Active Embecta Pen Needle Ultrafine 31G X 5 MM miscIndications: Type 2 diabetes mellitus with hyperglycemia (HCC) USE 5 TO 6 TIMES PER DAY 200 each 3 Active insulin pen needle (BD Pen Needle Mini Ultrafine) 31G x 5 mm miscIndications: Type 2 diabetes mellitus with hyperglycemia (HCC) Use to administer insulin as instructed, up to 4 times daily 120 each 3 025 2024 Discontinued Active Problems Problem Noted Date Diagnosed Date [...] new pair of diabetic footwear - seeing flexographic press helper - written scripts for shower extension, and rollator. Will check the status - written scripts for shower grab bars and chair Assessment & Plan (03/09/2023 5:47 AM EDT): - multifactorial, diabetic neuropathy, plantar fasciitis, and arthritis - evaluate with X-ray - refer to flexographic press helper for evaluation and a new pair of [...] consider trial of gabapentin - referred to flexographic press helper Assessment & Plan (03/27/2024 3:59 PM EDT): - prescribed diabetic footwear; patient disliked it - will consider trial of gabapentin - refer to flexographic press helper Assessment & Plan (03/09/2023 5:39 AM EDT): - prescribe diabetic footwear; check its status - refer to flexographic press helper Assessment & Plan (12/31/2022 6:07 AM EDT): - prescribe diabetic foowear Left groin pain 12/21/2022 Assessment & Plan (12/21/2022 9:37 AM EDT): Will evaluate with XR Chest wall pain following surgery 09/21/2022 Assessment & Plan (12/02/2024 6:06 AM EDT): >>ASSESSMENT AND PLAN FOR CHEST WALL PAIN FOLLOWING SURGERY WRITTEN ON 09/21/2022 5:03 AM BY PATRICIA SERNA MD -s/p CABG in 2018 -chronic sternotomy [...] -Will evaluate with PFT -Will refer to Pharmaceutical Sales Representative -Rx Jillian Jackson for short-term Proliferative diabetic [...] ESRD (end stage renal disease) on dialysis ([facility]) 08/20/2021 Assessment & Plan (04/14/2025 [...] the list for renal transplant -Follow-up with Patient Partner -Follow up with vascular specialist Assessment & [...] the list for renal transplant -Follow-up with Patient Partner -Follow up with vascular specialist Assessment & [...] the list for renal transplant -Follow-up with Patient Partner -Follow up with vascular specialist Assessment & [...] the list for renal transplant -Follow-up with Patient Partner -Follow up with vascular specialist Assessment & Plan (03/26/2024 6:38 AM EDT): >>ASSESSMENT AND PLAN FOR END STAGE RENAL DISEASE ([facility]) WRITTEN ON 09/21/2022 9:19 AM BY JUAN R CAT Started dialysis in 06/2021, currently receiving Monday/ /Monday. -Created AV fistula on 07/22/22 -List for renal transplant -Follow-up with Patient Partner Assessment & Plan (03/26/2024 6:38 AM EDT): >>ASSESSMENT AND PLAN FOR END STAGE RENAL DISEASE ([facility]) WRITTEN ON 12/31/2022 6:03 AM BY PATRICIA SERNA MD Started dialysis in 06/2021, currently receiving Monday/ /Monday. -Created left AV fistula on 07/22/22, still cannot be used -List for renal transplant -Follow-up with Patient Partner Assessment & Plan (03/26/2024 6:38 AM EDT): >>ASSESSMENT AND PLAN FOR ESRD (END STAGE RENAL DISEASE) ON DIALYSIS ([facility]) WRITTEN ON 03/09/2023 5:46 AM BY PATRICIA SERNA MD Started dialysis in 06/2021, currently receiving on Monday/ /Monday. -Created left AV fistula on 07/22/22, still cannot be used -List for renal transplant -Follow-up with Patient Partner -Follow up with vascular specialist -Caution with nutritional supplement and laxative which may cause electrolyte imbalance >>ASSESSMENT AND PLAN FOR END STAGE RENAL DISEASE (CMS/HCC) WRITTEN ON 03/09/2023 5:44 AM BY PATRICIA SERNA MD Started dialysis in 06/2021, currently receiving Monday/ /Monday. -Created left AV fistula on 07/22/22, still cannot be used -List for renal transplant -Follow-up with Patient Partner Nephrotic range proteinuria 10/20/2020 Diabetic nephropathy associa hardik with type 2 diabetes mellitus 10/19/2020 Hyperandrogenism 10/23/2018 Status post coronary artery bypass graft 018 Assessment & Plan (12/02/2024 11:10 PM EDT): -Presented to [facility] on 10/01/17. Dx NSTEMI; Transferred to [facility] for cardiac cath, found multi-vessel disease and had CABG x 3 on 10/05/17 CABG x 3. Treated with clopidogrel and ASA for 1 year. Clopidogrel was discontinued. -Presented to [facility] ED on 07/30/24 for recurrent chest pain shortly after hospitalization for acute heart failure. Cardiac cath on 08/01/24 showed multivessel CAD including severe distal LMCA disease, patent STAPLES to LAD and saphenous venous graft. PCI and LUISANA to LMCA and proximal circumflex. Started on ticagrelor -Hearth Feeder: previously HFCCA, started seeing [facility] cardiology -Continue DAPT with aspirin and ticagrelor. -Continue carvedilol -Continue statin -ARB was discontinued when patient was having recurrent WALLY -Work on risk factor management. - patient's niece will help patient reschedule appointment with shareholder Personal history of latent tuberculosis infectio n [...] Assessment & Plan (04/21/2025 9:45 AM EDT): -Hearth Feeder: [facility] cardiology, last outpatient visit on [...] for chest pressure / tightness in [facility] in Feb and Mar 2025, but declined to be transferred to [facility] for further evaluation -Continue ASA and statin. -ARB was discontinued due to WALLY / CKD -Work on risk factor management Assessment & Plan (12/02/2024 11:11 PM EDT): -Hearth Feeder: [facility] cardiology, last seen in November [...] Assessment & Plan (09/13/2024 12:23 PM EST): -Hearth Feeder: most recently seen by [facility] cardiology, last seen in Feb [...] Assessment & Plan (08/22/2024 8:43 AM EST): -Hearth Feeder: most recently seen by [facility] cardiology, last seen in Feb [...] (03/27/2024 9:36 AM EDT): -Presented to [facility] ED on 10/01/17. Dx NSTEMI; Transferred to [facility] for cardiac cath, found multi-vessel disease and had CABG x 3 on 10/05/17 CABG x 3 -Hearth Feeder: [facility], last seen on 05/02/22 -Echo on 09/13/21 EF 55-60%, Mild Aortic Stenosis; Grade I diastolic dysfunction, no valvular abnormality, WMA can't be excluded -Started on Plavix after CABG, No longer on Plavix. -Continue ASA and statin. -ARB was discontinued due to WALLY / CKD. -Work on risk factor management. Assessment & Plan (03/09/2023 5:40 AM EDT): -Presented to [facility] ED on 10/01/17. Dx NSTEMI; Transferred to [facility] for cardiac cath, found multi-vessel disease and had CABG x 3 on 10/05/17 CABG x 3 -Hearth Feeder: [facility], last seen on 05/02/22 -Echo on 09/13/21 EF 55-60%, Mild Aortic Stenosis; Grade I diastolic dysfunction, no valvular abnormality, WMA can't be excluded -Started on Plavix after CABG, No longer on Plavix. -Continue ASA and statin. -ARB was discontinued due to WALLY / CKD. -Work on risk factor management. Assessment & Plan (12/31/2022 6:02 AM EDT): -Presented to [facility] on 10/01/17. Dx NSTEMI; Transferred to [facility] for cardiac cath, found multi-vessel disease and had CABG x 3 on 10/05/17 CABG x 3 -Hearth Feeder: [facility], last seen on 05/02/22 -Echo on 09/13/21 EF 55-60%, Mild Aortic Stenosis; Grade I diastolic dysfunction, no valvular abnormality, WMA can't be excluded -Started on Plavix after CABG, No longer on Plavix. -Continue ASA and statin. -ARB was discontinued due to WALLY / CKD. -Work on risk factor management. Assessment & Plan (09/21/2022 4:59 AM EST): -Admitted to [facility] ED on 10/01/17. 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 Dyslipidemia 02/01/2013 Assessment [...] Assessment & Plan (12/02/2024 9:52 AM EDT): -[facility] provider: JADA -Current medication: sertraline -Continue counseling Assessment & Plan (08/22/2024 9:35 AM EST): -S provider: N -Current medication: sertraline -Continue counseling Assessment & Plan (03/27/2024 4:21 PM EDT): -S provider: N -Current medication: sertraline -Continue counseling Assessment & Plan (12/31/2022 6:08 AM EDT): -[facility] provider: JAVIERN -Current medication: sertraline Assessment & Plan (09/21/2022 5:15 AM EST): -S provider: -Current medication: sertraline Osteoarthritis 03/12/2012 Assessment [...] WRITTEN ON 03/09/2023 5:55 AM BY PATRICIA SERNA MD - s/p hemorrhoidectomy on 01/30/23 by [...] (04/14/2025 9:07 AM EDT): -Presented to [facility] on 10/01/17. Dx NSTEMI; Transferred to [facility] for cardiac cath, found multi-vessel disease and had CABG x 3 on 10/05/17 CABG x 3. Treated with clopidogrel and ASA for 1 year. Clopidogrel was discontinued. -Presented to [facility] ED on 07/30/24 for recurrent chest pain shortly after hospitalization for acute heart failure. Cardiac cath on 08/01/24 showed multivessel CAD including severe distal LMCA disease, patent STAPLES to LAD and saphenous venous graft. PCI and LUISANA to LMCA and proximal circumflex. Started on ticagrelor -Hearth Feeder: [facility] -Continue DAPT with aspirin and ticagrelor. -Continue carvedilol -Continue statin -ARB was discontinued when patient was having recurrent WALLY -Work on risk factor management. Assessment & Plan (12/02/2024 11:12 PM EDT): -Presented to [facility] ED on 10/01/17. Dx NSTEMI; Transferred to [facility] for cardiac cath, found multi-vessel disease and had CABG x 3 on 10/05/17 CABG x 3. Treated with clopidogrel and ASA for 1 year. Clopidogrel was discontinued. -Presented to [facility] ED on 07/30/24 for recurrent chest pain shortly after hospitalization for acute heart failure. Cardiac cath on 08/01/24 showed multivessel CAD including severe distal LMCA disease, patent STAPLES to LAD and saphenous venous graft. PCI and LUISANA to LMCA and proximal circumflex. Started on ticagrelor -Hearth Feeder: [facility] -Continue DAPT with aspirin and ticagrelor. -Continue carvedilol -Continue statin -ARB was discontinued when patient was having recurrent WALLY -Work on risk factor management. Assessment & Plan (09/13/2024 12:28 PM EST): -Presented to [facility] ED on 10/01/17. Dx NSTEMI; Transferred to [facility] for cardiac cath, found multi-vessel disease and had CABG x 3 on 10/05/17 CABG x 3. Treated with clopidogrel and ASA for 1 year. Clopidogrel was discontinued. -Presented to [facility] ED on 07/30/24 for recurrent chest pain shortly after hospitalization for acute heart failure. Cardiac cath on 08/01/24 showed multivessel CAD including severe distal LMCA disease, patent STAPLES to LAD and saphenous venous graft. PCI and LUISANA to LMCA and proximal circumflex. Started on ticagrelor -Hearth Feeder: previously HFCCA, started seeing [facility] cardiology -Continue DAPT with aspirin and ticagrelor. -Continue carvedilol -Continue statin -ARB was discontinued when patient was having recurrent WALLY -Work on risk factor management. - patient's niece will help patient reschedule appointment with shareholder Assessment & Plan (08/22/2024 9:31 AM EST): -Presented to [facility] ED on 10/01/17. Dx NSTEMI; Transferred to [facility] for cardiac cath, found multi-vessel disease and had CABG x 3 on 10/05/17 CABG x 3. Treated with clopidogrel and ASA for 1 year. Clopidogrel was discontinued. -Presented to [facility] ED on 07/30/24 for recurrent chest pain shortly after hospitalization for acute heart failure. Cardiac cath on 08/01/24 showed multivessel CAD including severe distal LMCA disease, patent STAPLES to LAD and saphenous venous graft. PCI and LUISANA to LMCA and proximal circumflex. Started on ticagrelor -Hearth Feeder: previously HFCCA, started seeing [facility] cardiology -Continue DAPT with aspirin [...] has both macrovascular and microvascular complications including NH, Diabetes nephropathy with proteinuria; peripheral neuropathy; retinopathy [...] has both macrovascular and microvascular complications including NH, Diabetes nephropathy with proteinuria; peripheral neuropathy; retinopathy [...] has both macrovascular and microvascular complications including NH, Diabetes nephropathy with proteinuria; peripheral neuropathy; retinopathy [...] has both macrovascular and microvascular complications including NH, Diabetes nephropathy with proteinuria; peripheral neuropathy; retinopathy [...] has both macrovascular and microvascular complications including NH, Diabetes nephropathy with proteinuria; peripheral neuropathy; retinopathy [...] has both macrovascular and microvascular complications including NH, Diabetes nephropathy with proteinuria; peripheral neuropathy; retinopathy [...] has both macrovascular and microvascular complications including NH, Diabetes nephropathy with proteinuria; peripheral neuropathy; retinopathy [...] Encounters Date Type Department Care Team Description 07/10/2025 Telephone [facility] [place] [address] Patricia Serna MD Results; Medication Question 07/08/2025 Orders Only [facility] [place] [address] Adria Bailey MD Gastrointestinal hemorrhage, unspecified gastrointestinal hemorrhage type (Primary Dx) 07/07/2025 Refill [facility] MEDICINE [address] [place] [address] Patricia Serna MD Type 2 diabetes mellitus with hyperglycemia (HCC) 07/04/2025 Telephone [facility] MEDICINE [address] [place] [address] Patricia Serna MD Medication Question 06/28/2025 Orders Only GENERIC EXTERNAL DATA DEPARTMENT Provider, Generic External Data 06/17/2025 Telephone [facility] [place] [address] Patricia Serna MD Appointment Request 06/02/2025 Refill [facility] MEDICINE [address] [facility] [place] [address] Patricia Serna MD 05/29/2025 Refill [facility] MEDICINE [address] [facility] [place] [address] Patricia Serna MD Wheezing 05/24/2025 Refill [facility] MOBILE VACCINE CLINIC [address] [facility] [place] [address] Patricia Serna MD Diabetic nephropathy associated with type 2 diabetes mellitus (HCC) 05/21/2025 Refill [facility] MEDICINE [address] [facility] [place] [address] Patricia Serna MD 05/06/2025 Refill [facility] MEDICINE [address] [facility] [place] [address] Patricia Serna MD Vitamin deficiency 04/28/2025 Refill [facility] MEDICINE [address] [facility] [place] [address] Patricia Serna MD Vitamin deficiency from Last 3 Months Immunizations Immunization Administration [...] (adult), unspecified 12/29/2010 Tdap 12/02/2024,03/22/2013 Zoster, Recombinant 08/26/2019,,06/17/2019,06/17 Family History Medical History Relation Name Comments [...] 3:00 PM EST Office Visit [facility] MEDICINE [address] [place] [address] Patricia Serna MD [address] [place] [address] 10/10/2025 11:00 AM EDT Office Visit [facility] OPTOMETRY [address] [place] [address] Boby, Jasmyne, OD [address] [place] [address] Health Maintenance Due Date Last Done Comments CT Colonography 1953 Colonoscopy 1953 Colorectal Cancer Screening 1953 FIT DNA/Cologuard 1953 FIT 1953 FOBT 1953 Sigmoidoscopy 1953 RSV Patients and Patients Aged 60 years or older (1 - Risk 50-74 years 1-dose series) 2003 Diabetes: Foot Exam 03/27/2025 03/27/2024, 03/27/2024, 03/27/2024, Additional history exists COVID-19 Vaccine ( season) 2025 09/21/2022, 10/04/2021, 01/02/2021, Additional history exists Diagnostic Breast Imaging 06/11/20252024, 06/03/2024, 10/25/2023 Mammogram 06/11/2025 12/09/2024, 10/2023, 10/25/2023, Additional history exists Alcohol/Substance Use Screening 08/21/2025 08/21/2024 SDOH Screening 08/21/2025 08/21/2024 Depression Monitoring 10/12/2025 04/14/2025, 025 Diabetes: Hemoglobin A1C 10/12/2025 025, 08/21/2024, 03/27/2024, Additional history exists Lipid Panel 03/28/2026 03/28/2025, 10/2023, 12/21/2022, Additional history exists Tobacco Screening 04/14/2026 04/14/2025 Eye Exam 05/02/2026 05/02/2025, 03/31, 04/11/2025, Additional history exists DTaP/Tdap/Td Vaccines (3 - Td or Tdap) 12/02/2034 12/02/2024, 03/22/2013, 12/29/2010, Additional history exists Hepatitis B Vaccines Completed 12/17/2013, 03/22/2013, 02/06/2008 Zoster Vaccines Completed 08/26/2019, 08/01, 06/17/2019, Additional history exists Pneumococcal Vaccine: 50+ Years Completed 12/02/2024, 10/23/2018, 04/25/2017, Additional history exists Influenza Vaccine Completed 06/29/2025, , 05/04/2022, Additional history exists HIB Vaccines Aged Out [...] Care Plan Patient has chronic kidney disease Ulysses Mccallum Help patients manage their [...] blood pressure task No Adria Bailey MD Patient has diabetic [...] eye disease Adria Degroot MD Patient has chronic kidney disease Care Plan Patient has chronic kidney disease Adria Degroot MD Patient has chronic kidney disease Care Plan Patient has chronic kidney disease No Adria Bailey MD Patient has chronic kidney disease Care Plan Patient has chronic kidney disease No Adria Bailey MD Patient has chronic kidney disease Care Plan Patient has chronic kidney disease No Adria Bailey MD Patient has diabetic neuropathy Care Plan Patient has diabetic neuropathy No Adria Bailey MD Patient has diabetic neuropathy Care Plan Patient has diabetic neuropathy No Adria Bailey MD Patient has diabetic neuropathy Care Plan Patient has diabetic neuropathy No Adria Bailey MD Patient has diabetic neuropathy Care Plan Patient has diabetic neuropathy No Adria Bailey MD Weekly blood pressure [...] Plan Patient has diabetic neuropathy No Jesi Quiorga RN Procedures Procedure Name Priority Date/Time Associated Diagnosis Comments CT ABDOMEN PELVIS WO CONTRAST Routine 06/29/2025 6:40 PM EST XR CHEST 1 VIEW Routine 06/28/2025 2:28 PM EST HIGH SENSITIVITY TROPONIN I Routine 06/28/2025 12:59 PM EST COMPREHENSIVE METABOLIC PANEL Routine 06/28/2025 12:59 PM EST CBC WITH AUTO DIFFERENTIAL Routine 06/28/2025 12:59 PM EST PROTHROMBIN TIME-INR Routine 06/28/2025 12:59 PM EST OBSX1 Routine 06/28/2025 12:59 PM EST AMB REFERRAL TO OPHTHALMOLOGY Routine 05/02/2025 Proliferative diabetic retinopathy of both eyes with macular edema associated with type 2 diabetes mellitus (HCC) Epiretinal membrane (ERM) of both eyes POCT GLYCOSYLATED HEMOGLOBIN (HGB A1C) Routine 04/14/2025 9:20 AM EDT Type 2 diabetes mellitus with chronic kidney disease on chronic dialysis, with long-term current use of insulin (CMS/HCC) LIPID PANEL, STANDARD Routine 03/28/2025 4:10 PM EDT BI MAMMOGRAM DIAGNOSTIC TOMOSYNTHESIS BILATERAL Routine 12/09/2024 1:20 PM EDT from Last 3 Months or Most Recently Relevant to Health Maintenance Results * CT Abdomen Pelvis w/o Contrast (06/29/2025 6:40 PM EST) Anatomical Region Laterality Modality Body, Pelvis, Abdomen Computed T omography 06/29/2025 6:40 PM EST Narrative 06/29/2025 6:42 PM EST [address] [address] [address] Scan Report Signed with Addenda Patient: Joslyn Padilla MR#: [id number] : 1955 Acct:[id number] Age/Sex: 70 / F ADM Date: 06/28/25 Loc: [facility] 445-[address]: Rizwana Villegas MD Ordering Physician: Alejandra Subramanian Date of Service: 06/29/25 Procedure(s): CT abdomen pelvis wo IV con Accession Number(s): [id number] cc: Alejandra Subramanian; Patricia Serna MD Report Number: [id number]: Total DLP = 295.00 mGy-cm Reason for Exam: abdominal pain, GI bleeding ADDENDUM This document has been electronically signed by: Edgardo Bird MD on 06/29/2025 18:40:38 ADDENDUM: This report was discussed with Dr. Kia Archibald on Jun 29, 2025 18:53:00 EST. This document has been electronically signed by: Adri Mane on 06/29/2025 18:53:56 Addendum Dictated By: Edgardo Bird MD Addendum Signed By: <Electronically signed by Edgardo Bird MD in OV> 06/29/251854 Addendum Cosigned By: DD/ TD/TT: 06/29/25 CLINICAL HISTORY: abdominal pain, GI bleeding CT abdomen and pelvis without contrast Comparison: CT/REG/VT/SR - CT ABDOMEN PELVIS WITHOUT THEN WITH IV CONTRAST - 03/06/25 13:08 EDT Findings: No consolidation or effusion. Unremarkable gallbladder and solid organs. No urolithiasis. No bowel obstruction, pneumoperitoneum, or pneumatosis. Calcified coronary atherosclerotic disease. Prior sternotomy. Moderate calcified atherosclerotic disease of the abdominal aorta. The appendix is within normal limits. Diverticulosis. Asymmetric mural thickening of the distal sigmoid colon. Extensive peritoneal arterial calcifications. The bones are intact. Moderate osteopenia. IMPRESSION: 1. Asymmetric mural thickening of the distal sigmoid colon; colon carcinoma can not be excluded. 2. Diverticulosis. 3. Chronic renal insufficiency. This document has been electronically signed by: Edgardo Bird MD on 06/29/2025 18:40:38 Dictated By: Edgardo Bird MD Signed By: <Electronically signed by Edgardo Bird MD in OV> 06/29/251840 DD/ 39 TD/TT: 06/29/251839 Electric Sealing Machine Operator: Procedure Note Donotuseinterpreter, Image - 06/29/[address] [address] [address] Scan Report Signed with Addenda Patient: Marilyn Padilla#: [id number] : 1955cct:[id number] Age/Sex: 70 / FADM Date: 06/28/25 Loc: [facility] 445-[address]: Rizwana Villegas MD Ordering Physician: Alejandra Subramanian Date of Service: 06/29/25 Procedure(s): CT abdomen pelvis wo IV con Accession Number(s): [id number] cc: Alejandra Subramanian; Patricia Serna MD Report Number: [id number]: Total DLP = 295.00 mGy-cm Reason for Exam: abdominal pain, GI bleeding ADDENDUM This document has been electronically signed by: Edgardo Bird MD on 06/29/2025 18:40:38 ADDENDUM: This report was discussed with Dr. Kia Archibald on Jun 29, 2025 18:53:00 EST. This document has been electronically signed by: Adri Mane on 06/29/2025 18:53:56 Addendum Dictated By: Edgardo Bird MD Addendum Signed By: <Electronically signed by MD Safia in OV> 06/29/251854 Addendum Cosigned By: DD/ TD/TT: 06/29/25 CLINICAL HISTORY: abdominal pain, GI bleeding CT abdomen and pelvis without contrast Comparison: CT/REG/VT/SR - CT ABDOMEN PELVIS WITHOUT THEN WITH IV CONTRAST - 03/06/25 13:08 EDT Findings: No consolidation or effusion. Unremarkable gallbladder and solid organs. No urolithiasis. No bowel obstruction, pneumoperitoneum, or pneumatosis. Calcified coronary atherosclerotic disease. Prior sternotomy. Moderate calcified atherosclerotic disease of the abdominal aorta. The appendix is within normal limits. Diverticulosis. Asymmetric mural thickening of the distal sigmoid colon. Extensive peritoneal arterial calcifications. The bones are intact. Moderate osteopenia. IMPRESSION: 1. Asymmetric mural thickening of the distal sigmoid colon; colon carcinoma can not be excluded. 2. Diverticulosis. 3. Chronic renal insufficiency. This document has been electronically signed by: Edgardo Bird MD on 06/29/2025 18:40:38 Dictated By: Edgardo Bird MD Signed By: <Electronically signed by Edgarod Bird MD in OV> 06/29/25 1841 DD/ 1840 TD/TT: 06/29/251839 Electric Sealing Machine Operator: us [facility] External Provider IMG CT PROCEDURES Edited Result - Final * XR Chest 1 View (06/28/2025 2:28 PM EST) Anatomical Region Laterality Modality Chest Radiographic Sepideh ging 06/28/2025 2:28 PM EST Narrative 06/28/2025 2:30 PM EST [address] [address] XRay Report Signed Patient: Joslyn Padilla MR#: [id number] : 1955 Acct:[id number] Age/Sex: 70 / F ADM Date: 06/28/25 Loc: HO.ED Attending Dr: Ordering Physician: Arden Irby MD Date of Service: 06/28/25 Procedure(s): XR chest 1V Accession Number(s): [id number] cc: Arden Irby MD; Patricia Serna MD Reason for Exam: sob CLINICAL HISTORY: sob 1 view chest x-ray. Comparison: 04/08/2025 Findings: No consolidation or effusion. Cardiac and mediastinal contours appear stable. Bones unremarkable. Impression: 1. No acute pulmonary disease. This document has been electronically signed by: Ag Mohan MD on 06/28/2025 14:28:59 Dictated By: Ag Mohan MD Signed By: <Electronically signed by Ag Mohan MD in OV> 06/28/25 1430 DD/ 1428 TD/TT: 06/28/25 142 Electric Sealing Machine Operator: Procedure Note Donotuseinterpreter, Image - 06/28/[address] [address] XRay Report Signed Patient: Marilyn Padilla#: [id number] : 1955cct:[id number] Age/Sex: 70 / FADM Date: 06/28/25 Loc: HO.ED Attending Dr: Ordering Physician: Ardne Irby MD Date of Service: 06/28/25 Procedure(s): XR chest 1V Accession Number(s): [id number] cc: Arden Irby MD; Patricia Serna MD Reason for Exam: sob CLINICAL HISTORY: sob 1 view chest x-ray. Comparison: 04/08/2025 Findings: No consolidation or effusion. Cardiac and mediastinal contours appear stable. Bones unremarkable. Impression: 1. No acute pulmonary disease. This document has been electronically signed by: Ag Mohan MD on 06/28/2025 14:28:59 Dictated By: Ag Mohan MD Signed By: <Electronically signed by Ag Mohan MD in OV> 06/28/25 1430 DD/ 1428 TD/TT: 06/28/25 1428 Electric Sealing Machine Operator: [facility] External Provider IMG XR PROCEDURES Final Result * OBSX1 (06/28/2025 12:59 PM EST) [facility] OBS1 POSITIVE NEGATIVE [facility] 06/28/2025 12:5 9 PM EST 06/28/2025 1:04 PM EST Generic External Data Provider LAB BLOOD ORDERAB LES Final Result [facility] [address] [place] [address] [phone] * (ABNORMAL) High Sensitivity Troponin I (06/28/2025 12:59 PM EST) [facility] TROPONIN I HIGH SENSITIVITY 24.7(H) <3.5 - 17.0 ng/L [facility] Comment:The Bonilla high sens itivity Troponin-I results should beused in conjunction with other diagnostic information suchas ECG, clinical observations and information, and patientsymptoms to aid in the diagnosis of NH. 06/28/2025 12:5 9 PM EST 06/28/2025 1:04 PM EST us Generic External Data Provider LAB BLOOD ORDERAB LES Final Result [facility] [address] [place] [address] [phone] * (ABNORMAL) CBC auto differential (06/28/2025 12:59 PM EST) White Blood Count 4.9 4.8 - 10.8 X10*3/uL [facility] Red Blood Count 3.04(L) 4.20 - 5.50 X10*6/uL [facility] Hemoglobin 8.9(L) 12.0 - 16.0 g/dl [facility] Hematocrit 26.9(L) 37.0 - 47.0 % [facility] Mean Corpuscular Volume 88.5 80.0 - 98.0 fL [facility] Mean Corpuscular Hemoglobin 29.3 27.0 - 33.0 pg [facility] Mean Corpuscular HGB Conc 33.1 31.0 - 35.0 g/dl [facility] Red Cell Distribution Width 15.1 11.0 - 16.0 % [facility] Platelet Count 135(L) 160 - 400 X10*3/uL [facility] Mean Platelet Volume 11.0 9.4 - 12.3 fL [facility] Neutrophils Percent Auto 77.7(H) 45 - 73 % [facility] Imm Gran Pct Auto 0.4 0.0 - 0.4 % [facility] Lymphocytes Percent Auto 17.4(L) 20 - 40 % [facility] Monocytes Percent Auto 3.9 2 - 11 % [facility] Eosinophils Percent Auto 0.4 0 - 4 % [facility] Basophils Percent Auto 0.2 0 - 2 % [facility] NRBC Pct Auto 0.0 0.0 - 0.2 /100WBC [facility] Neutrophils Absolute Auto 3.8 2.0 - 8.3 x10*3/uL [facility] Imm Gran Abs Auto 0.02 0.00 - 0.03 X10*3/uL [facility] Lymphocytes Absolute Auto 0.9(L) 1.2 - 4.9 X10*3/uL [facility] Monocytes Absolute Auto 0.2 0.1 - 1.2 X10*3/uL [facility] Eosinophils Absolute Auto 0.0 0.0 - 0.4 X10*3/uL [facility] Basophils Absolute Auto 0.0 0.0 - 0.2 X10*3/uL [facility] NRBC Abs Auto 0.000 0.0 - 0.012 X10*3/uL [facility] 06/28/2025 12:5 9 PM EST 06/28/2025 1:04 PM EST us Generic External Data Provider LAB BLOOD ORDERAB LES Final Result [facility] [address] [place] [address] [phone] * Prothrombin Time-INR (06/28/2025 12:59 PM EST) Prothrombin Time 12.7 11.2 - 13.5 SEC [facility] INTERNATIONAL NORM RATIO 1.0 0.9 - 1.1 [facility] Comment:INTERNATIONAL NORMAL IZED RATIO (INR) REFERENCE RANGES Reference RangeFor patients not on anticoagulant therapy: 0.9 - 1.1INR ranges for oral anticoagulanttherapy:For prevention and treatment of venous thrombosis and pulmonary embolism: 2.0 - 3.0For acute myocardial infarction with aspirin therapy: 2.0 - 3.0For acute myocardial infarction without aspirin therapy: 3.0 - 4.0For patients with mechanical prosthetic heart valves: 2.5 - 3.5 06/28/2025 12:5 9 PM EST 06/28/2025 1:04 PM EST us Generic External Data Provider LAB BLOOD ORDERAB LES Final Result [facility] [address] [place] [address] [phone] * (ABNORMAL) Comprehensive Metabolic Panel (06/28/2025 12:59 PM EST) Sodium 143 135 - 145 mmol/L [facility] Potassium 4.7 3.3 - 5.1 mmol/L [facility] Comment:Slight Hemolysis.Int erpret result with caution. Chloride 97 96 - 108 mmol/L [facility] Carbon Dioxide 27 22 - 29 mmol/L [facility] Anion Gap 24(H) 12 - 20 [facility] Urea Nitrogen (BUN) 67(H) 9 - 16 mg/dL [facility] Creatinine, Serum 8.46(HH) 0.5 - 1.4 mg/dL [facility] Comment:Critical value for t est(s):CREA2 Results called to remington back by:DR. TORRES Person calling: ALKASABDate:06/28/25 Time:13:27 Creatinine Clr Calc Pharmacy 4.7 [facility] Comment:Provided height and weight: 157.48 cm,54.431 kg.eGFR (calculated from the MDRD study equation) and eCrCl(calculated from the Cockcroft-Gault equation) are based ondifferent parameters and may not yield comparable results.If eCrCl result is absurd, please check patient'sheight/weight. Estimated Glomerular Filt Rate 5 [facility] Comment:Chronic Kidney Disea se: Estimated GFR < 60 mL/min/1.51m1Quopms Kidney Disease: Estimated GFR < 15 mL/min/1.73m2 Glucose 208(H) 60 - 115 mg/dL [facility] Calcium 10.0 8.4 - 10.2 mg/dL [facility] Bilirubin, Total 0.5 0.0 - 1.0 mg/dL [facility] Aspartate Amino Transferase 24 5 - 31 U/L [facility] Comment:Slight Hemolysis.Int erpret result with caution. Alanine Aminotransferase 7 0 - 31 U/L [facility] Total Protein 7.4 6.5 - 8.0 g/dL [facility] Albumin Level 4.1 3.5 - 5.0 g/dL [facility] Alkaline Phosphatase 113 39 - 117 U/L [facility] 06/28/2025 12:5 9 PM EST 06/28/2025 1:04 PM EST Generic External Data Provider LAB BLOOD ORDERAB LES Final Result [facility] [address] [place] [address] [phone] * Referral to Ophthalmology (05/02/2025) Jasmyne Landis OD OUTPATIENT REFERRAL ORDERABLE S Final Result * (ABNORMAL) POCT glycosylated hemoglobin (Hgb A1c) (04/14/2025 9:20 AM EDT) Hemoglobin A1C 6.2(A) 4.0 - 5.7 % QC Media Lot # [id number] Lot# Expiration Date ,901,[id number] Blood Capillary blood specimen / Unknown 04/14/2025 9:20 AM EDT Patricia Serna MD POINT OF CARE TEST ENTER/EDIT OR DERABLES Final Result * Lipid Panel, Standard (03/28/2025 4:10 PM EDT) Triglycerides 79 <150 mg/dL [facility] Comment:Desirable Triglyceri de: less than 150 mg/dLBorderline High Triglyceride 150-199 mg/dLHigh Triglyceride: 200-499 mg/dLVery High Triglyceride: greater than or equal to 5OO mg/dL Cholesterol 143 <200 mg/dL [facility] Comment:Desirable Cholestero l: less than 200 mg/dLBorderline High Cholesterol: 200-239 mg/dLHigh Cholesterol: greater than 239 mg/dL LDL Cholesterol Calculated 76 <100 mg/dL [facility] Comment:Desirable LDL: less than 100 mg/dLNear Optimal/Above Optimal LDL: 110- 129 mg/dLBorderline High LDL: 130-159 mg/dLHigh LDL: 160-189 mg/dLVery High LDL: greater than or equal to 190 mg/dL HDL Cholesterol 52 >40 mg/dL [facility] Comment:Desirable HDL: great er than 40 mg/dL Note: This HDL assay may give artificially low results in patients with liver disease. 03/28/2025 4:10 PM EDT 03/28/2025 4:11 PM EDT us Generic External Data Provider LAB BLOOD ORDERAB LES Final Result [facility] [address] [place] [phone] * BI Mammogram Diagnostic Tomosynthesis Bilateral (12/09/2024 1:20 PM EDT) Anatomical Region Laterality Modality Breast Bilateral Mammography 12/09/2024 1:20 PM EDT Narrative 12/09/2024 1:56 PM EDT [address] [place] [address] Mammography Report Signed Patient: Kavitha Padilla MR#: [id number] 2 : 1955 Acct:[id number] Age/Sex: 69 / F ADM Date: 12/09/24 Loc: HO.MAMMO Attending Dr: Patricia Serna MD Ordering Physician: Patricia Serna MD Results: 3.12MProb ably Benign Finding - 12 month F/U Suggested Date of Service: 12/09/24 Follow Up: 12 month diagnos tic follow up Procedure(s): MM tomosynthesis diagnostic BI Accession Number(s): [id number] cc: Patricia Serna MD EXAMINATION: MM DIAGNOSTIC DIGITAL BREAST TOMOSYNTHESIS, [...] 12/09/24 1353 DD/ 1320 TD/TT: 12/09/24 1345 Electric Sealing Machine Operator: Procedure Note Donotuseinterpreter, Image - 12/09/2024 [facility] [address] [place] [address] Mammography Report Signed Patient: Kavitha Padilla#: [id number] 2 : 1955cct:[id number] Age/Sex: 69 / FADM Date: 12/09/24 Loc: [facility] Attending Dr: Patricia Serna MD Ordering Physician: Patricia Serna MDResults: 3.12MProb ably Benign Finding - 12 month F/U Suggested Date of Service: 12/09/24Follow Up: 12 month diagnos tic follow up Procedure(s): MM tomosynthesis diagnostic BI Accession Number(s): [id number] cc: Patricia Serna MD EXAMINATION: MM DIAGNOSTIC DIGITAL BREAST TOMOSYNTHESIS, [...] 12/09/24 1353 DD/ 1320 TD/TT: 12/09/24 1345 Electric Sealing Machine Operator: Patricia Serna MD IMG BI PROCEDURES Final Result from [...] neuropathy 07/08/2025 Patient has diabetic neuropathy 07/08/2025 Weekly blood pressure task 07/10/2025 Weekly blood pressure task 07/10/2025 Weekly blood pressure task 07/10/2025 Weekly blood pressure task 07/10/2025 Patient has diabetic eye disease 07/10/2025 Patient has diabetic eye disease 07/10/2025 Patient has diabetic eye disease 07/10/2025 Patient has diabetic eye disease 07/10/2025 Patient has chronic kidney disease 07/10/2025 Patient has chronic kidney disease 07/10/2025 Patient has chronic kidney disease 07/10/2025 Patient has chronic kidney disease 07/10/2025 Patient has diabetic neuropathy 07/10/2025 Patient has diabetic neuropathy 07/10/2025 Patient has diabetic neuropathy 07/10/2025 Patient has diabetic neuropathy 07/10/2025 Insurance [facility] OPTIONS (O D-SNP) MATILDE PALACIOS [id number] Care Teams Air Launch Weapons Technician Relationship Specialty Start Date End Date Patricia Serna MD [address] [place] [phone] PCP - General Family Medicine 07/12/12 [facility] 08/03/24
--- OUTSIDE RECORDS SUMMARY | 2025-07-18 20:19 | XMS_ITS | Encounter Summary ---
Author Organization [email or web address] Address [address] [facility] 7t [place] [address] Care Team Providers Care Aircraft Navigator Name Role Phone Patricia Ingram MD Primary Care Provider [phone] Encounter Details Date Type Department Care Team (Late st Contact Info) Description 10/30/2024 Orders Only [facility] [address] [place], [place] [phone] Patricia Ingram MD [address] [place], [place] [phone] Vitamin deficiency Social History Tobacco Use Types [...] Visit [facility] [address] [place] [address] Patricia Ingram MD [address] [place] [address] 10/10/2025 11:00 AM EDT Office Visit [facility] OPTOMETRY [address] [place] [address] Boby, Jasmyne, OD [address] [place] [address] documented as of this encounter Visit Diagnoses Diagnosis Vitamin deficiency Unspecified vitamin deficiency documented in this encounter Care Teams Aircraft Navigator Relationship Specialty Start Date End Date Patricia Ingram MD [address] [place] [address] PCP - General Family Medicine 07/12/12 [facility] 08/03/24 documented as of this encounter
--- OUTSIDE RECORDS SUMMARY | 2025-07-18 20:19 | XMS_ITS | Encounter Summary ---
Author Organization [employer] [facility] Address [address] [place] [address] 7t [place] [address] Care Team Providers Care Supervisor Wet Room Name Role Phone Patricia Ingram MD Primary Care Provider [phone] Reason for Visit * Reason Onset Date Comments FYI 09/25/2024 Appointment Request 09/25/2024 Encounter Details Date Type Department Care Team ([facility] st Contact Info) Description 09/25/2024 Telephone [facility] [address] [place], [place] [phone] Patricia Ingram MD [address] [place], [place] [phone] FYI; Appointment Request Social History Tobacco Use [...] about the appt and pt keep forgetting. Configuration Release Manager tried to schedule appt, no availability. Contact Apolonia [phone] danish documented in this encounter Plan of Treatment Upcoming Encounters Date Type Department Care Team (Late st Contact Info) Description 07/21/2025 3:00 PM EST Office Visit [facility] [address] [place] [address] Patricia Ingram MD [address] [place] [address] 10/10/2025 11:00 AM EDT Office Visit [facility] OPTOMETRY [address] [place] [address] Jasmyne Landis OD [address] [place] [address] documented as of this encounter Visit Diagnoses Not on filedocumented in this encounter Care Teams Supervisor Wet Room Relationship Specialty Start Date End Date Patricia Ingram MD [address] [place] [phone] PCP - General Family Medicine 07/12/12 [facility] 08/03/24 documented as of this encounter
--- OUTSIDE RECORDS SUMMARY | 2025-07-18 20:19 | XMS_ITS | Encounter Summary ---
Author Organization [employer] Address [address] [facility] 7[address] [place] [address] Care Team Providers Care Casket Liner Name Role Phone Patricia Ingram MD Primary Care Provider [phone] Reason for Visit * Reason Comments Med Refill Encounter Details Date Type Department Care Team ([facility] st Contact Info) Description 12/11/2024 Refill [facility] [address] [place] [address] Caroilna Bedoya MD [address] [place] [address] Social History Tobacco Use Types Packs/Day Years [...] the past 12 months, has t he [employer] oil [employer] water company threatened to shut [...] Description 07/21/2025 3:00 PM EST Office Visit [facility] [address] [place] [address] Patricia Ingram MD [address] [place] [address] 10/10/2025 11:00 AM EDT Office Visit [facility] OPTOMETRY [address] [place] [address] Boby, Jasmyne, OD [address] [place] [address] documented as of this encounter Visit Diagnoses Not on filedocumented in this encounter Care Teams Casket Liner Relationship Specialty Start Date End Date Patricia Ingram MD [address] [place] [address] PCP - General Family Medicine 07/12[facility]12 [facility] documented as of this encounter
--- OUTSIDE RECORDS SUMMARY | 2025-07-18 20:19 | XMS_ITS | Encounter Summary ---
Author Organization [employer] [facility] Address [address] [place] [address] [address] [place] [address] Care Team Providers Care Notereader Name Role Phone Patricia Ingram MD Primary Care Provider [phone] Encounter Details Date Type Department Care Team (Late Contact Info) Description 09/12/2022 Telephone [facility]INE [address] [place] [address] Patricia Ingram MD [address] [place] [address] Social History Tobacco Use Types Packs/Day Years [...] Visit [facility] [address] [place] [address] Patricia Ingram MD [address] [place] [address] 10/10/2025 11:00 AM EDT Office Visit [facility] OPTOMETRY [address] [place] [address] Jasmyne Landis, OD [address] [place] [address] documented as of this encounter Visit Diagnoses Not on filedocumented in this encounter Care Teams Notereader Relationship Specialty Start Date End Date Patricia Ingram MD [address] [place] [address] PCP - General Family Medicine 07/12/12 [facility] 08/03/24 documented as of this encounter
--- OUTSIDE RECORDS SUMMARY | 2025-07-18 20:19 | XMS_ITS | Encounter Summary ---
Author Organization [facility] Address [address] [address] Phone Care Team Providers Care Charge Hand Name Role Phone Patricia Ingram MD Primary Care Provider [phone] Encounter Details Date Type Department Care Team (Late st Contact Info) Description 03/13/2025 TCM in Dialysis Clinic [facility] [address] [address] Richard Alatorre MD [address] [address] Social History Tobacco Use [...] 03/13/2025 The patient was seen for a [id number] visit as part of Transitional Care Management services. Attending Supervisor Fish Bait Processing: RICHARD ALATORRE MD Dialysis Location: [facility] Schedule: Tu-Th-Sa Shift: 2 INTERACTIVE CONTACT Contact with the [...] with the patient. VISIT DIAGNOSES CPT Code 08329 - High complexity, seen within 7 days of discharge. N18.6 End stage renal disease Signed by: RICHARD ALATORRE MD on 03/13/2025 at 12:20:39 PM Transcribed by: RICHARD ALATORRE MD on 03/13/2025 at 12:20:39 PM documented in this encounter Plan of Treatment Not on file documented as of this encounter Visit Diagnoses Not on filedocumented in this encounter Care Teams Charge Hand Relationship Specialty Start Date End Date Patricia Ingram MD [address] [place] [address] PCP - General 08/10/20 documented as of this encounter
--- OUTSIDE RECORDS SUMMARY | 2025-07-18 20:19 | XMS_ITS | Encounter Summary ---
Author Organization [employer] [facility] Address [address] [place] [address] 7t [place] [address] Care Team Providers Care Fire Lookout Name Role Phone Patricia Ingram MD Primary Care Provider Reason for Referral * Consultation (Routine) - Closed Specialty Diagnoses / Procedures Referred By Contayden t Referred To Contact Pharmacy Diagnoses Primary hypertension Type 2 diabetes mellitus with chronic kidney disease on chronic dialysis, with long-term current use of insulin ([facility]) Patricia Ingram MD [address] [place] [address] Phone: tel: fax: Referral ID Status Reason Start Date Expiration Date V isits Requested Visits Authorized [id number] Closed Consult and Treat 09/12/2024 09/12/2025 6 0 Encounter Details Date Type Department Care Team (Late st Contact Info) Description 09/12/2024 Orders Only [facility] MEDICINE [address] [place], [place] [phone] Patricia Ingram MD [address] [place], [place] [phone] Primary hypertension (Primary Dx); Type 2 diabetes [...] Description 07/21/2025 3:00 PM EST Office Visit [facility] MEDICINE [address] [place] [address] Patricia Ingram MD [address] [place] [address] 10/10/2025 11:00 AM EDT Office Visit [facility] OPTOMETRY [address] [place] [address] Jasmyne Landis, DOC 230 [place] [address] Scheduled Referrals Name Type Priority Associated Diagnoses Orde r Schedule Referral to Pharmacy CDTM Outpatient Referral Routine Primary hypertension Type 2 diabetes mellitus with chronic kidney disease on chronic dialysis, with long-term current use of insulin ([facility]) Ordered: 09/12/2024 documented as of this encounter Visit Diagnoses Diagnosis Primary hypertension- Primary Unspecified essential hypertension Type 2 diabetes mellitus with chronic kidney disease on chronic dialysis, with long-term current use of insulin ([facility]) documented in this encounter Care Teams Fire Lookout Relationship Specialty Start Date End Date Patricia Ingram MD [address] [place] [address] PCP - General Family Medicine 07/12/12 [facility] 08/03/24 documented as of this encounter
--- OUTSIDE RECORDS SUMMARY | 2025-07-18 20:20 | XMS_ITS | Encounter Summary ---
Author Organization [employer] Address [address] [facility] 7t [place] [address] Care Team Providers Care Bowling Pin Setters Installer Name Role Phone Patricia Ingram MD Primary Care Provider [phone] Encounter Details Date Type Department Care Team ([facility] st Contact Info) Description 08/22/2024 Orders Only [facility] MEDICINE 230 [place], [place] [phone] Patricia Ingram MD 230 [place], [place] [phone] Social History Tobacco Use Types Packs/Day Years [...] Description 07/21/2025 3:00 PM EST Office Visit [facility] MEDICINE [address] [place] [address] Patricia Ingram MD [address] [place] [address] 10/10/2025 11:00 AM EDT Office Visit [facility] OPTOMETRY [address] [place] [address] Boby, Jasmyne, OD 230 [place] [address] documented as of this encounter Visit Diagnoses Not on filedocumented in this encounter Care Teams Bowling Pin Setters Installer Relationship Specialty Start Date End Date Patricia Ingram MD [address] [place] [address] PCP - General Family Medicine 07/12/12 [facility] 08/03/24 documented as of this encounter
--- OUTSIDE RECORDS SUMMARY | 2025-07-18 20:20 | XMS_ITS | Encounter Summary ---
Author Organization [employer] Address [address] [facility] 7t [place] [address] Care Team Providers Care Head Sawyer Name Role Phone Patricia Ingram MD Primary Care Provider [phone] Reason for Visit * Reason Onset Date Comments Error 08/04/2023 Encounter Details Date Type Department Care Team ([facility] st Contact Info) Description 08/04/2023 Telephone [facility] CHC MED & PEDS [address] [place], [place] [phone] Patricia Ingram MD [address] [place] [address] Error Social History Tobacco Use Types Packs/Day [...] Description 07/21/2025 3:00 PM EST Office Visit [facility] MEDICINE [address] [place] [address] Patricia Ingram MD [address] [place] [address] 10/10/2025 11:00 AM EDT Office Visit [facility] OPTOMETRY [address] [place] [address] Boby, Jasmyne, OD 230 [place] [address] documented as of this encounter Visit Diagnoses Not on filedocumented in this encounter Care Teams Head Sawyer Relationship Specialty Start Date End Date Patricia Ingram MD [address] [place] [address] PCP - General Family Medicine 07/12/12 [facility] 08/03/24 documented as of this encounter
--- OUTSIDE RECORDS SUMMARY | 2025-07-18 20:20 | XMS_ITS | Encounter Summary ---
Author Organization [employer] [facility] Address [address] [place] [address] 7t [place] [address] Care Team Providers Care Journeyman Pipe Fitter Name Role Phone Patricia Ingram MD Primary Care Provider [phone] Encounter Details Date Type Department Care Team (Late st Contact Info) Description 03/01/2023 Orders Only [facility] MEDICINE 230 [place], [place] [phone] Patricia Ingram MD [address] [place] [address] [phone] Pain in both feet (Primary Dx) Social [...] Description 07/21/2025 3:00 PM EST Office Visit [facility] MEDICINE 230 [place], [place] [phone] Patricia Ingram MD 230 [place] [address] 10/10/2025 11:00 AM EDT Office Visit [facility] OPTOMETRY [address] [place] [address] Jasmyne Landis, OD 230 [place] [address] documented as of this encounter Visit Diagnoses Diagnosis Pain in both feet- Primary documented in this encounter Care Teams Journeyman Pipe Fitter Relationship Specialty Start Date End Date Patricia Ingram MD [address] [place] [address] PCP - General Family Medicine 07/12/12 [facility] 08/03/24 documented as of this encounter
--- OUTSIDE RECORDS SUMMARY | 2025-07-18 20:20 | XMS_ITS | Encounter Summary ---
Author Organization [employer] Address [address] [facility] 7t [place] [address] Care Team Providers Care Insurance Executive Name Role Phone Patricia Ingram MD Primary Care Provider [phone] Reason for Visit * Reason Onset Date Comments Reschedule 08/21/2023 Encounter Details Date Type Department Care Team ([facility] st Contact Info) Description 08/21/2023 Telephone [facility] MEDICINE 230 [place], [place] [phone] Patricia Ingram MD 230 [place], [place] [phone] Reschedule Social History Tobacco Use Types Packs/Day [...] Description 07/21/2025 3:00 PM EST Office Visit [facility] MEDICINE [address] [place] [address] Patricia Ingram MD 230 [place] [address] 10/10/2025 11:00 AM EDT Office Visit [facility] OPTOMETRY [address] [place] [address] Boby, Jasmyne, OD 230 [place] [address] documented as of this encounter Visit Diagnoses Not on filedocumented in this encounter Care Teams Insurance Executive Relationship Specialty Start Date End Date Patricia Ingram MD 230 [place] [address] PCP - General Family Medicine 07/12[facility]12 [facility] documented as of this encounter
--- OUTSIDE RECORDS SUMMARY | 2025-07-18 20:20 | XMS_ITS | Encounter Summary ---
Author Organization [employer] Address [address] [facility] 7t [place] [address] Care Team Providers Care Senior Accountant Analyst Name Role Phone Patricia Ingram MD Primary Care Provider [phone] Reason for Visit * Reason Comments Med Refill Encounter Details Date Type Department Care Team ([facility] st Contact Info) Description 02/04/2025 Refill [facility] MEDICINE 230 [place], [place] [phone] Patricia Ingram MD 230 [place], [place] [phone] Social History Tobacco Use Types Packs/Day Years [...] t he electric, gas, oil or water [employer] threatened to shut off services in your [...] 07/21/2025 3:00 PM EST Office Visit [facility] MEDICINE 230 [place] [address] Patricia Ingram MD 230 [place] [address] 10/10/2025 11:00 AM EDT Office Visit [facility] OPTOMETRY [address] [place] [address] Boby, Jasmyne, OD 230 [place] [address] documented as of this encounter Visit Diagnoses Not on filedocumented in this encounter Care Teams Senior Accountant Analyst Relationship Specialty Start Date End Date Patricia Ingram MD [address] [place] [address] PCP - General Family Medicine 07/12[facility]12 [facility] documented as of this encounter
--- OUTSIDE RECORDS SUMMARY | 2025-07-18 20:20 | XMS_ITS | Encounter Summary ---
Author Organization [employer] [facility] Address [address] [facility] 7t [place] [address] Care Team Providers Care Preparation Supervisor Name Role Phone Patricia Ingram MD Primary Care Provider Encounter Details Date Type Department Care Team (Late st Contact Info) Description 08/16/2022 Orders Only [facility] CHC MED & PEDS [address] [place], [place] [phone] Gwendolyn Thompson LPN Social History Tobacco Use [...] 07/21/2025 3:00 PM EST Office Visit [facility] MEDICINE 230 [place] [address] Patricia Ingram MD 230 [place] [address] 10/10/2025 11:00 AM EDT Office Visit [facility] OPTOMETRY [address] [place] [address] Jasmyne Landis, OD 230 [place] [address] documented as of this encounter Visit Diagnoses Not on filedocumented in this encounter Care Teams Preparation Supervisor Relationship Specialty Start Date End Date Patricia Ingram MD [address] [place] [address] PCP - General Family Medicine 07/12/12 [facility] 08/03/24 documented as of this encounter
--- OUTSIDE RECORDS SUMMARY | 2025-07-18 20:20 | XMS_ITS | Encounter Summary ---
Author Organization [employer] Address [address] [facility] 7t [place] [address] Care Team Providers Care Ferryboat Operator Helper Name Role Phone Patricia Ingram MD Primary Care Provider [phone] Encounter Details Date Type Department Care Team ([facility] st Contact Info) Description 08/22/2024 Orders Only [facility] MEDICINE [address] [place], [place] [phone] Patricia Ingram MD [address] [place], [place] [phone] Social History Tobacco Use Types Packs/Day Years [...] Description 07/21/2025 3:00 PM EST Office Visit [facility] MEDICINE [address] [place] [address] Patricia Ingram MD 230 [place] [address] 10/10/2025 11:00 AM EDT Office Visit [facility] OPTOMETRY [address] [place] [address] Boby, Jasmyne, OD 230 [place] [address] documented as of this encounter Visit Diagnoses Not on filedocumented in this encounter Care Teams Ferryboat Operator Helper Relationship Specialty Start Date End Date Patricia Ingram MD [address] [place] [address] PCP - General Family Medicine 07/12/12 [facility] 08/03/24 documented as of this encounter
--- OUTSIDE RECORDS SUMMARY | 2025-07-18 20:20 | XMS_ITS | Encounter Summary ---
Author Organization [facility] Address [address] [facility] 7t [place] [address] Care Team Providers Care Copy Director Name Role Phone Patricia Ingram MD Primary Care Provider [phone] Reason for Visit * Reason Onset Date Comments Hospital Follow-up 08/29/2024 Encounter Details Date Type Department Care Team ([facility] st Contact Info) Description 08/29/2024 Telephone [facility] MEDICINE 230 [place], [place] [phone] Patricia Ingram MD 230 [place], [place] [phone] Hospital Follow-up Social History Tobacco Use Types [...] from pt requesting a HDF appt. Hospital: [facility] Date of admission: 08/26 Discharge date: 08/29 Diagnosed: Gastrointestinal hemorrhage *Send message to [facility] Care Coordinators (Judi) documented in this encounter Plan of Treatment Upcoming Encounters Date Type Department Care Team (Late st Contact Info) Description 07/21/2025 3:00 PM EST Office Visit [facility] MEDICINE [address] [place] [address] Patricia Ingram MD [address] [place] [address] 10/10/2025 11:00 AM EDT Office Visit [facility] OPTOMETRY [address] [place], [place] [phone] Jasmyne Landis, OD 230 [place] [address] documented as of this encounter Visit Diagnoses Not on filedocumented in this encounter Care Teams Copy Director Relationship Specialty Start Date End Date Patricia Ingram MD [address] [place] [address] PCP - General Family Medicine 07/12/12 [facility] 08/03/24 documented as of this encounter
--- OUTSIDE RECORDS SUMMARY | 2025-07-18 20:20 | XMS_ITS | Encounter Summary ---
Author Organization [facility] Address [address] [facility] 7t [place] [address] Care Team Providers Care Seal Delivery Vehicle Team Technician Name Role Phone Patricia Ingram MD Primary Care Provider [phone] Reason for Visit * Reason Onset Date Comments FYI 07/30/2024 Encounter Details Date Type Department Care Team ([facility] Contact Info) Description 07/30/2024 Telephone [facility] MEDICINE 230 [place], [place] [phone] Patricia Ingram MD 230 [place], [place] [phone] FYI Social History Tobacco Use Types Packs/Day [...] 12:48 PM EST Tc from Liza with [facility] stating pt will be getting admitted 07/31/2024 If any questions please contact Liza [phone] documented in this encounter Plan of Treatment Upcoming Encounters Date Type Department Care Team (Late st Contact Info) Description 07/21/2025 3:00 PM EST Office Visit [facility] MEDICINE [address] [place] [address] Patricia Ingram MD [address] [place] [address] 10/10/2025 11:00 AM EDT Office Visit [facility] OPTOMETRY [address] [place] [address] Boby, Jasmyne, OD 230 [place] [address] documented as of this encounter Visit Diagnoses Not on filedocumented in this encounter Care Teams Seal Delivery Vehicle Team Technician Relationship Specialty Start Date End Date Patricia Ingram MD [address] [place] [address] PCP - General Family Medicine 07/12/12 [facility] 08/03/24 documented as of this encounter
--- OUTSIDE RECORDS SUMMARY | 2025-07-18 20:20 | XMS_ITS | Encounter Summary ---
Author Organization [facility] Address [address] [place] [phone] Phone Care Team Providers Care Felt Carbonizer Name Role Phone Patricia Ingram MD Primary Care Provider [phone] Encounter Details Date Type Department Care Team (Late st Contact Info) Description 07/17/2025 Treatment [facility] [address] [address] Richard Alatorre MD [facility] [address] End stage renal disease; Dependence [...] Dialysis Note - Richard Alatorre MD - 07/17/2025 12:00 AM EST BASIC NOTE Patient: Kavitha Padilla : 1955 Note Author: RICHARD ALATORRE MD Service Date: 07/17/2025 This patient was personally seen [id number] for a basic visit as part of routine monthly dialysis care for end stage renal disease. Attending Clinical Nutritionist: RICHARD ALATORRE MD Dialysis Location: [facility] Schedule: Shift: 2 HOME MEDICATIONS Current [facility] Epic Outpatient Medications Acetaminophen Extra Strength 500 MG tablet TAKE 2 TABLETS BY MOUTH EVERY 8 HOURS NEEDED Start Date: 11/17/2020 albuterol HFA (PROVENTIL HFA;VENTOLIN HFA) 108 (90 Base) MCG/ACT inhaler INHALE 2 PUFFS BY MOUTH EVERY 4 TO 6 HOURS NEEDED SHORTNESS OF BREATH Start Date: 04/27/2021 amLODIPine (NORVASC) 10 MG tablet Take 1 tablet by mouth 1 (one) time each day Start Date: 07/15/2015 ascorbic acid (VITAMIN C) 500 MG tablet TAKE 1 TABLET BY MOUTH TWICE DAILY IN THE MORNING AND IN THE EVENING Start Date: 11/12/2020 aspirin (ST GHISLAINE) 81 MG EC tablet Take 1 tablet by mouth 1 (one) time each day Start Date: atorvastatin (Lipitor) 80 MG tablet Take 1 tablet by mouth 1 (one) time each day Start Date: cholecalciferol (VITAMIN D-3) 25 MCG (1000 UT) tablet Take 1 tablet by mouth 1 (one) time each day Start Date: ferrous sulfate 325 (65 Fe) MG EC tablet Take 1 tablet by mouth 2 (two) times a day Start Date: Flovent HFA 110 MCG/ACT inhaler Start Date: 05/26/2021 furosemide (LASIX) 40 MG tablet TAKE 3 TABLETS BY MOUTH TWICE DAILY IN THE MORNING AND IN THE EVENING Start Date: 02/14/2023 hydrALAZINE (APRESOLINE) 10 MG tablet Take 1 tablet by mouth 2 (two) times a day Start Date: insulin glargine (Lantus) 100 UNIT/ML injection Inject 40 Units under the skin 2 (two) times a day Start Date: Insulin Lispro, 1 Unit Dial, (HumaLOG KWIKPEN) 100 UNIT/ML solution pen-injector Start Date: Lantus SoloStar 100 UNIT/ML injection INJECT 28 UNITS SUBCUTANEOUSLY EVERY EVENING Start Date: 05/26/2021 Melatonin 5 MG tablet Take 1 tablet by mouth at bed time Start Date: 11/12/2020 nitroglycerin (Nitrostat) 0.4 MG SL tablet Start Date: pantoprazole (PROTONIX) 40 MG EC tablet Take 1 tablet by mouth 1 (one) time each day Start Date: sertraline (ZOLOFT) 100 MG tablet Take 1.5 tablets by mouth 1 (one) time each day Start Date: Current [facility] Epic Allergies Allergen: No Known Allergies ADEQUACY ASSESSMENT Kt/V, Natural Log 1.48 (07/03/25) 1.77 (06/05/25) 1.81 (05/01/25) UREA REDUCTION RATIO (%) 74 (07/03/25) 79 (06/05/25) 80 (05/01/25) BUN 47 (07/03/25) 52 (06/05/25) 40 (05/01/25) BUN Post Dialysis 12 (07/03/25) 11 (06/05/25) 8 (05/01/25) Creatinine 7.51 (07/03/25) 7.42 (06/05/25) 6.79 (05/01/25) Bicarbonate (CO2) 28 (07/03/25) 27 (06/05/25) 27 (05/01/25) Sodium 140 (07/03/25) 138 (06/05/25) 138 (05/01/25) ANEMIA ASSESSMENT Hgb 6.7 (07/10/25) 7.4 (07/03/25) 10.2 (06/23/25) Iron Saturation (TSat) 73 (07/03/25) 39 (06/05/25) 29 (05/01/25) Ferritin 1,640 (07/03/25) 1,554 (06/05/25) 1,391 (05/01/25) Iron 124 (07/03/25) 68 (06/05/25) 55 (05/01/25) TIBC 171 (07/03/25) 174 (06/05/25) 189 (05/01/25) MCV 89.5 (07/03/25) 95.2 (06/05/25) 97.5 (05/01/25) Platelets 196 (07/03/25) 191 (06/05/25) 207 (05/01/25) BMM ASSESSMENT Calcium, Adjusted Total 9.1 07/03/25 9.8 06/05/25 10.0 05/01/25 Calcium 9.1 07/03/25 9.8 06/05/25 10.0 05/01/25 Phosphorus, Serum 6.6 07/03/25 6.7 06/05/25 6.0 05/01/25 Ca*PO4 60.1 07/03/25 65.7 06/05/25 60.0 05/01/25 PTH, Intact 3,037 07/03/25 2,396 06/05/25 1,932 05/01/25 Magnesium 2.0 07/03/25 2.5 06/05/25 2.4 05/01/25 Alkaline Phosphatase 114 07/03/25 161 06/05/25 162 05/01/25 Aluminum 3 1/9/25 NUTRITION ASSESSMENT Albumin 4.0 07/03/25 4.3 06/05/25 4.2 05/01/25 Potassium 3.6 07/10/25 3.8 07/03/25 5.2 06/05/25 Glucose 188 07/03/25 229 06/05/25 306 05/01/25 Hemoglobin A1C 5.9 05/01/25 6.8 02/06/25 6.0 10/31/24 ADDITIONAL LABS White Blood Cells 5.8 (07/03/25) 5.8 (06/05/25) 5.0 (05/01/25) Cholesterol 156 (05/01/25) 144 (02/06/25) 146 (10/31/24) HDL 53 (05/01/25) 58 (02/06/25) 49 (10/31/24) LDL-Calc 71 (05/01/25) 57 (02/06/25) 73 (10/31/24) Triglycerides 159 (05/01/25) 143 (02/06/25) 120 (10/31/24) Hep B Surface Antibody 24 (02/06/25) 31 (08/08/24) Uric Acid 4.4 (08/08/24) Chol/HDL Ratio 2.9 (05/01/25) 2.5 (02/06/25) 3.0 (10/31/24) ALT (SGPT) ?7 (07/03/25) 7 (06/05/25) ?7 (05/01/25) AST (SGOT) 10 (07/03/25) 10 (06/05/25) ?8 (05/01/25) Signed by: RICHARD ALATORRE MD on 07/17/2025 at 11:56:25 AM Transcribed by: RICHARD ALATORRE MD on 07/17/2025 at 11:56:25 AM documented in this encounter Plan of Treatment Not on file documented as of this encounter Visit Diagnoses Diagnosis End stage renal disease Dependence on renal dialysis documented in this encounter Care Teams Felt Carbonizer Relationship Specialty Start Date End Date Patricia Ingram MD [address] [place] [address] PCP - General 08/10/20 documented as of this encounter
--- OUTSIDE RECORDS SUMMARY | 2025-07-18 20:20 | XMS_ITS | Encounter Summary ---
Author Organization [employer] [facility] Address [address] [facility] 7t [place] [address] Care Team Providers Care Ring Conductor Name Role Phone Patricia Ingram MD Primary Care Provider [phone] Encounter Details Date Type Department Care Team (Late st Contact Info) Description 07/27/2022 Orders Only [facility] CHC MED & PEDS [address] [place], [place] [phone] Gwendolyn Thompson LPN Social History Tobacco Use [...] Description 07/21/2025 3:00 PM EST Office Visit [facility] MEDICINE 230 [place] [address] Patricia Ingram MD 230 [place] [address] 10/10/2025 11:00 AM EDT Office Visit [facility] OPTOMETRY [address] [place] [address] Jasmyne Landis, OD 230 [place] [address] documented as of this encounter Visit Diagnoses Not on filedocumented in this encounter Care Teams Ring Conductor Relationship Specialty Start Date End Date Patricia Ingram MD [address] [place] [address] PCP - General Family Medicine 07/12/12 [facility] 08/03/24 documented as of this encounter
--- OUTSIDE RECORDS SUMMARY | 2025-07-18 20:20 | XMS_ITS | Encounter Summary ---
Author Organization [facility] Address [address] [place] [address] 7t [place] [address] Care Team Providers Care Machinist First Class Name Role Phone Patricia Ingram MD Primary Care Provider [phone] Encounter Details Date Type Department Care Team (Late Contact Info) Description 03/23/2023 [facility] Health Information Management [address] [place] [address] Patricia Ingram MD [address] [place], [place] [phone] Social History Tobacco Use Types Packs/Day Years [...] Description 07/21/2025 3:00 PM EST Office Visit [facility] MEDICINE 230 [place] [address] Patricia Ingram MD [address] [place] [address] 10/10/2025 11:00 AM EDT Office Visit [facility] OPTOMETRY [address] [place], [place] [phone] Jasmyne Landis, OD 230 [place] [address] documented as of this encounter Visit Diagnoses Not on filedocumented in this encounter Care Teams Machinist First Class Relationship Specialty Start Date End Date Patricia Ingram MD 230 [place] [address] PCP - General Family Medicine 07/12/12 [facility] 08/03/24 documented as of this encounter
--- OUTSIDE RECORDS SUMMARY | 2025-07-18 20:20 | XMS_ITS | Encounter Summary ---
Author Organization [employer] Address [address] [facility] 7t [place] [address] Care Team Providers Care Precision Inspector Name Role Phone Patricia Ingram MD Primary Care Provider [phone] Encounter Details Date Type Department Care Team ([facility] st Contact Info) Description 08/23/2024 Orders Only [facility] [address] [place], [place] [phone] Patricia Ingram MD [address] [place], [place] [phone] Social History Tobacco Use Types Packs/Day Years [...] Description 07/21/2025 3:00 PM EST Office Visit [facility] [address] [place] [address] Patricia Ingram MD [address] [place] [address] 10/10/2025 11:00 AM EDT Office Visit [facility] [address] [place] [address] Boby, Jasmyne, OD [address] [place] [address] documented as of this encounter Visit Diagnoses Not on filedocumented in this encounter Care Teams Precision Inspector Relationship Specialty Start Date End Date Patricia Ingram MD [address] [place] [address] PCP - General Family Medicine 07/12/12 [facility] 08/03/24 documented as of this encounter
--- OUTSIDE RECORDS SUMMARY | 2025-07-18 20:20 | XMS_ITS | Encounter Summary ---
Author Organization [facility] Address [address] [place] [phone] Phone Care Team Providers Care Grinding Machine Operator Portable Name Role Phone Patricia Ingram MD Primary Care Provider [phone] Encounter Details Date Type Department Care Team (Late st Contact Info) Description 07/15/2025 Treatment [facility] [address] [phone] Richard Alatorre MD [facility] [address] End stage renal disease; Dependence [...] Dialysis Note - Richard Alatorre MD - 07/15/2025 12:00 AM EST BASIC NOTE Patient: Kavitha Padilla : 1955 Note Author: RICHARD ALATORRE MD Service Date: 07/15/2025 This patient was personally seen [id number] for a basic visit as part of routine monthly dialysis care for end stage renal disease. Attending Extruding Department Supervisor: RICHARD ALATORRE MD Dialysis Location: [facility] Schedule: Shift: 2 HOME MEDICATIONS Current [...] (05/01/25) Signed by: RICHARD ALATORRE MD on 07/15/2025 at 11:53:28 AM Transcribed by: RICHARD ALATORRE MD on 07/15/2025 at 11:53:28 AM documented in this encounter Plan of Treatment Not on file documented as of this encounter Visit Diagnoses Diagnosis End stage renal disease Dependence on renal dialysis documented in this encounter Care Teams Grinding Machine Operator Portable Relationship Specialty Start Date End Date Patricia Ingram MD [address] [place] [address] PCP - General 08/10/20 documented as of this encounter
--- OUTSIDE RECORDS SUMMARY | 2025-07-18 20:20 | XMS_ITS | Encounter Summary ---
Author Organization [facility] Address [address] [place] [address] 7t [place] [address] Care Team Providers Care Administrative Library Assistant Name Role Phone Patricia Ingram MD Primary Care Provider [phone] Encounter Details Date Type Department Care Team (Late Contact Info) Description 03/29/2023 [facility] Health Information Management [address] [place] [address] Patricia Ingram MD [address] [place], [place] [phone] Social History Tobacco Use Types Packs/Day Years [...] Description 07/21/2025 3:00 PM EST Office Visit [facility] [address] [place] [address] Patricia Ingram MD [address] [place] [address] 10/10/2025 11:00 AM EDT Office Visit [facility] [address] [place], [place] [phone] Jasmyne Landis, OD [address] [place] [address] documented as of this encounter Visit Diagnoses Not on filedocumented in this encounter Care Teams Administrative Library Assistant Relationship Specialty Start Date End Date Patricia Ingram MD [address] [place] [address] PCP - General Family Medicine 07/12/12 [facility] 08/03/24 documented as of this encounter
--- OUTSIDE RECORDS SUMMARY | 2025-07-18 20:20 | XMS_ITS | Clinical Summary ---
Author Organization [facility] Address [address] [facility] [address] [place] [address] Phone Care Team Providers Care Esthetician And Manager Medical Spa Name Role Phone Patricia Ingram MD Primary Care Provider [phone] Allergies No known active allergies Medications amLODIPine [...] Encounters Date Type Department Care Team Description 07/17/2025 Treatment [facility] [address] [phone] Driss Alatorre MD End stage renal disease; Dependence on renal dialysis 07/15/2025 Treatment [facility] [address] [phone] Driss Alatorre MD End stage renal disease; Dependence on renal dialysis 07/08/2025 Treatment [facility] [address] [phone] Driss Alatorre MD End stage renal disease; Dependence on renal dialysis 07/03/2025 Treatment [facility] [address] [address] Driss Alatorre MD End stage renal disease; Dependence on renal dialysis 06/23/2025 Treatment [facility] [address] [phone] Driss Alatorre MD End stage renal disease; Dependence on renal dialysis 06/17/2025 Treatment [facility] [address] [phone] Driss Alatorre MD End stage renal disease; Dependence on renal dialysis 06/12/2025 Orders Only [facility] [address] [phone] Driss Alatorre MD 06/10/2025 Treatment [facility] [address] [phone] Driss Alatorre MD End stage renal disease; Dependence on renal dialysis 06/05/2025 Treatment [facility] [address] [phone] Driss Alatorre MD End stage renal disease; Dependence on renal dialysis 06/03/2025 Treatment [facility] [address] [phone] Driss Alatorre MD End stage renal disease; Dependence on renal dialysis 05/27/2025 Treatment [facility] [address] [phone] Driss Alatorre MD End stage renal disease; Dependence on renal dialysis 05/20/2025 [facility] [address] [phone] Driss Alatorre MD End stage renal disease; Dependence on renal dialysis 05/13/2025 Treatment [facility] [address] [phone] Driss Alatorre MD End stage renal disease; Dependence on renal dialysis 05/08/2025 Treatment [facility] [address] [address] Driss Alatorre MD End stage renal disease; Dependence on renal dialysis 05/06/2025 Treatment [facility] [address] [phone] Driss Alatorre MD End stage renal disease; Dependence on renal dialysis 04/22/2025 Treatment [facility] [address] [phone] Driss Alatorre MD End stage renal disease; [...] 0 Q uit: 07/31/1979 Smokeless Tobacco: Never Tobacco [...] 2002 Colorectal Cancer Screening: Sigmoidoscopy 2002 Diabetes: Pedal Pulse Checked 08/30/2020 Diabetes: Sensory Foot Exam 08/30/2020 Diabetes: Visual Foot Exam 08/30/2020 Influenza Vaccine (#1) 2025 4, 05/27/2021, 04/15/2020, Additional history exists Diabetes: Hemoglobin A1C 08/01/2025 025, 04/14/2025, 02/06/2025, Additional history exists Diabetes: Ophthalmology Exam 05/02/2026 05/02/2025 Pneumococcal Vaccine: 50+ Years Completed 12/02/2024, 10/23/2018, 04/25/2017, Additional history exists Pneumococcal Vaccine: Peds ( 0 to 5 Years) and At-Risk Patients (6 to 49 Years) Discontinued 12/02/2024, 10/23/2018, 04/25/2017, Additional history exists Procedures Procedure Name Priority Date/Time Associated Diagnosis Comments PTH, INTACT Routine 07/17/2025 3:00 AM EST POTASSIUM Routine 07/17/2025 3:00 AM EST LIH (HC) Routine 07/17/2025 3:00 AM EST LIH (HC) Routine 07/10/2025 3:00 AM EST POTASSIUM Routine 07/10/2025 3:00 AM EST HEMOGLOBIN AND HEMATOCRIT, BLOOD Routine 07/10/2025 3:00 AM EST PTH, INTACT Routine 07/03/2025 3:00 AM EST TRANSFERRIN SATURATION Routine 3:00 AM EST ELECTROLYTE PANEL Routine 07/03/2025 3:0 0 AM EST PROTEIN, TOTAL, SERUM Routine 07/03/2025 3:00 AM EST MAGNESIUM Routine 07/03/2025 3:00 AM EST LIH (HC) Routine 07/03/2025 3:00 AM EST CREATININE, SERUM Routine 07/03/2025 3:0 0 AM EST LACTATE DEHYDROGENASE Routine 07/03/2025 3:00 AM EST BUN/CREATININE RATIO Routine 07/03/2025 3:00 AM EST GLUCOSE, RANDOM Routine 07/03/2025 3:00 AM EST BILIRUBIN, TOTAL Routine 07/03/2025 3:00 AM EST AST Routine 07/03/2025 3:00 AM EST ALT Routine 07/03/2025 3:00 AM EST ALKALINE PHOSPHATASE Routine 07/03/2025 3:00 AM EST CALCIUM PHOSPHORUS PRODUCT, ADJUSTED (HC) Routine 07/03/2025 3:00 AM EST FERRITIN Routine 07/03/2025 3:00 AM EST CBC AND DIFFERENTIAL Routine 07/03/2025 3:00 AM EST KT/V NATURAL LOG, URR (HC) Routine 07/03/2025 3:00 AM EST HEMOGLOBIN Routine 06/23/2025 3:00 AM EST HEMOGLOBIN AND HEMATOCRIT, BLOOD Routine 06/19/2025 3:00 AM EST HEMOGLOBIN Routine 06/12/2025 3:00 AM EST FERRITIN Routine 06/05/2025 3:00 AM EST PTH, INTACT Routine 06/05/2025 3:00 AM EST TRANSFERRIN SATURATION Routine 3:00 AM EST PROTEIN, TOTAL, SERUM Routine 06/05/2025 3:00 AM EST MAGNESIUM Routine 06/05/2025 3:00 AM EST ELECTROLYTE PANEL Routine 06/05/2025 3:0 0 AM EST LIH (HC) Routine 06/05/2025 3:00 AM EST LACTATE DEHYDROGENASE Routine 06/05/2025 3:00 AM EST CREATININE, SERUM Routine 06/05/2025 3:0 0 AM EST GLUCOSE, RANDOM Routine 06/05/2025 3:00 AM EST BUN/CREATININE RATIO Routine 06/05/2025 3:00 AM EST BILIRUBIN, TOTAL Routine 06/05/2025 3:00 AM EST AST Routine 06/05/2025 3:00 AM EST ALKALINE PHOSPHATASE Routine 06/05/2025 3:00 AM EST ALT Routine 06/05/2025 3:00 AM EST CALCIUM PHOSPHORUS PRODUCT, ADJUSTED (HC) Routine 06/05/2025 3:00 AM EST CBC AND DIFFERENTIAL Routine 06/05/2025 3:00 AM EST KT/V NATURAL LOG, URR (HC) Routine 06/05/2025 3:00 AM EST HEMOGLOBIN Routine 05/29/2025 3:00 AM EDT HEMOGLOBIN Routine 05/22/2025 3:00 AM EDT HEMOGLOBIN AND HEMATOCRIT, BLOOD Routine 05/15/2025 3:00 AM EDT FERRITIN Routine 05/01/2025 3:00 AM EDT HEMOGLOBIN A1C Routine 05/01/2025 3:00 AM EDT PROTEIN, TOTAL, SERUM Routine 05/01/2025 3:00 AM EDT TRANSFERRIN SATURATION Routine 3:00 AM EDT LIPID PANEL Routine 05/01/2025 3:00 AM EDT ELECTROLYTE PANEL Routine 05/01/2025 3:0 0 AM EDT LACTATE DEHYDROGENASE Routine 05/01/2025 3:00 AM EDT MAGNESIUM Routine 05/01/2025 3:00 AM EDT GLUCOSE, RANDOM Routine 05/01/2025 3:00 AM EDT LIH (HC) Routine 05/01/2025 3:00 AM EDT AST Routine 05/01/2025 3:00 AM EDT CREATININE, SERUM Routine 05/01/2025 3:0 0 AM EDT BUN/CREATININE RATIO Routine 05/01/2025 3:00 AM EDT BILIRUBIN, TOTAL Routine 05/01/2025 3:00 AM EDT ALKALINE PHOSPHATASE Routine 05/01/2025 3:00 AM EDT CALCIUM PHOSPHORUS PRODUCT, ADJUSTED (HC) Routine 05/01/2025 3:00 AM EDT ALT Routine 05/01/2025 3:00 AM EDT PTH, INTACT Routine 05/01/2025 3:00 AM EDT KT/V NATURAL LOG, URR (HC) Routine 05/01/2025 3:00 AM EDT CBC AND DIFFERENTIAL Routine 05/01/2025 3:00 AM EDT HEMOGLOBIN Routine 04/24/2025 3:00 AM EDT from Last 3 Months Results * [facility] (07/17/2025 3:00 AM EST) Only the most recent of5 resultswithin the time period is included. Lipemia Normal Normal [facility] Icterus Normal Normal [facility] Hemolysis Normal Normal [facility] 07/17/2025 3:00 AM EST 07/18/2025 1:40 PM EST us Driss Alatorre MD LAB [id number] ICITED RESULTS Final Result Performing Organization Address [facility] Co de Phone Number [facility] [address] [place] [address] * Potassium (07/17/2025 3:00 AM EST) Only the most recent of2 resultswithin the time period is included. Potassium 3.6 3.4 - 5.0 mEq/L [facility] 07/17/2025 3:00 AM EST 07/18/2025 1:40 PM EST us Driss Alatorre MD LAB BLOOD ORDERABLES Final Resul t Performing Organization Address [facility] de Phone Number [facility] [address] [place] [address] * (ABNORMAL) PTH, Intact (07/17/2025 3:00 AM EST) Only the most recent of4 resultswithin the time period is included. PTH, Intact 1,747(H) 160 - 721 pg/mL [facility] Comment: Suggested (KDIGO) ESRD maintenance range is two to nine times the upper normal limit (80.1 pg/mL) for the laboratory. 07/17/2025 3:00 AM EST 07/18/2025 1:40 PM EST us Driss Alatorre MD LAB BLOOD ORDERABLES Final Resul t Performing Organization Address [facility] de Phone Number [facility] [address] [place] [address] * (ABNORMAL) Hemoglobin and hematocrit (07/10/2025 3:00 AM EST) Only the most recent of3 resultswithin the time period is included. Hgb 6.7(L) 11.2 - 15.7 g/dL [facility] Hematocrit 20.8(L) 34.1 - 44.9 % [facility] Hemoglobin x 3 20.1(L) 33.6 - 47.1 g/dL [facility] 07/10/2025 3:00 AM EST 07/11/2025 12:19 PM EST us Driss Alatorre MD LAB BLOOD ORDERABLES Final Resul t Performing Organization Address [facility] de Phone Number [facility] [address] [place] [address] * (ABNORMAL) Kt/V Natural Log, URR (07/03/2025 3:00 AM EST) Only the most recent of3 resultswithin the time period is included. Treatment Time 155 min [facility] Pre-Weight, lb 51.9 kg [facility] Post-Weight, lb 51.4 kg [facility] Ultrafiltration Rate 4 <=13 mL/kg/hr [facility] Comment: Recommend achieving Ultrafiltration Rate (UFR) <=10 mL/kg/hr References: Kendy VELÁSQUEZ et al. Kidney Int. 2010; 79(2):250-257 BUN Post Dialysis 12 7 - 25 mg/dL [facility] BUN 47(H) 7 - 25 mg/dL [facility] UREA REDUCTION RATIO (%) 74 >=65 % [facility] Kt/V Natural Log 1.48 >=1.2 [facility] 07/03/2025 3:00 AM EST 07/04/2025 12:05 PM EST us Driss Alatorre MD LAB [id number] ICITED RESULTS Final Result Performing Organization Address [facility] de Phone Number [facility] [address] [place] [address] * (ABNORMAL) Calcium Phosphorus Product, Adjusted (07/03/2025 3:00 AM EST) Only the most recent of3 resultswithin the time period is included. Albumin 4.0 3.6 - 5.4 g/dL [facility] Calcium 9.1 8.6 - 10.3 mg/dL [facility] Phosphorus, Serum 6.6(H) 2.5 - 5.0 mg/dL [facility] Ca*PO4 60.1(A) <55.0 mg2/dL2 [facility] Calcium, Adjusted Total 9.1 8.6 - 10.3 mg/dL [facility] CA*PO4 CORRCTD 60.1(A) <55.0 mg2/dL2 [facility] 07/03/2025 3:00 AM EST 07/04/2025 12:05 PM EST us Driss Alatorre MD LAB [id number] ICITED RESULTS Final Result Performing Organization Address [facility] de Phone Number [facility] [address] [place] [address] * BUN/CREATININE RATIO (07/03/2025 3:00 AM EST) Only the most recent of3 resultswithin the time period is included. BUN/Creatinine Ratio 6.3 <=23.0 [facility] 07/03/2025 3:00 AM EST 07/04/2025 12:05 PM EST us Driss Alatorre MD LAB [id number] ICITED RESULTS Final Result Performing Organization Address [facility] de Phone Number [facility] [address] [place] [address] * (ABNORMAL) TSAT (07/03/2025 3:00 AM EST) Only the most recent of3 resultswithin the time period is included. Iron 124 50 - 170 ug/dL [facility] Transferrin 122(L) 250 - 380 mg/dL [facility] TIBC 171(L) 211 - 406 ug/dL [facility] Iron Saturation (TSat) 73(H) 22 - 52 % [facility] 07/03/2025 3:00 AM EST 07/04/2025 12:05 PM EST us Driss Alatorre MD LAB BLOOD ORDERABLES Final Resul t Performing Organization Address [facility] de Phone Number [facility] [address] [place] [address] * (ABNORMAL) CBC and Differential (07/03/2025 3:00 AM EST) Only the most recent of3 resultswithin the time period is included. DIFFERENTIAL MANUAL, 2 Not Indicated [facility] White Blood Cells 5.8 4.0 - 10.0 K/uL [facility] RBC 2.58(L) 3.93 - 5.22 M/uL [facility] Hgb 7.4(L) 11.2 - 15.7 g/dL [facility] Hemoglobin x 3 22.2(L) 33.6 - 47.1 g/dL [facility] Hematocrit 23.1(L) 34.1 - 44.9 % [facility] MCV 89.5 79.4 - 94.8 fL [facility] MCH 28.7 25.6 - 32.2 pg [facility] MCHC 32.0(L) 32.2 - 35.5 g/dL [facility] RDW 14.7(H) 11.7 - 14.4 % [facility] Platelets 196 182 - 369 K/uL [facility] MPV 11.3 9.2 - 12.8 fL [facility] Neutrophils Relative 77.8(H) 34.0 - 71.1 % [facility] Lymphocytes Relative 13.9(L) 19.3 - 51.7 % [facility] Monocytes 5.6 4.7 - 12.5 % [facility] Eosinophils Relative 1.2 0.7 - 5.8 % [facility] Basophils Relative 0.5 0.1 - 1.2 % [facility] Immature Granulocytes 1.0 0.0 - 1.0 % [facility] 07/03/2025 3:00 AM EST 07/04/2025 12:16 PM EST Driss Alatorre MD LAB BLOOD ORDERABLES Final Resul t [facility] [address] [place] [address] * (ABNORMAL) ALT (07/03/2025 3:00 AM EST) Only the most recent of3 resultswithin the time period is included. ALT (SGPT) <7(L) 10 - 49 U/L [facility] 07/03/2025 3:00 AM EST 07/04/2025 12:05 PM EST us Driss Alatorre MD LAB BLOOD ORDERABLES Final Resul t Performing Organization Address [facility] Co de Phone Number [facility] [address] [place] [address] * AST (07/03/2025 3:00 AM EST) Only the most recent of3 resultswithin the time period is included. AST (SGOT) 10 <34 U/L [facility] 07/03/2025 3:00 AM EST 07/04/2025 12:05 PM EST us Driss Alatorre MD LAB BLOOD ORDERABLES Final Resul t Performing Organization Address [facility] de Phone Number [facility] [address] [place] [address] * Protein, total (07/03/2025 3:00 AM EST) Only the most recent of3 resultswithin the time period is included. Total Protein 6.7 6.4 - 8.9 g/dL [facility] 07/03/2025 3:00 AM EST 07/04/2025 12:05 PM EST us Driss Alatorre MD LAB BLOOD ORDERABLES Final Resul t Performing Organization Address [facility] de Phone Number [facility] [address] [place] [address] * Alkaline phosphatase (07/03/2025 3:00 AM EST) Only the most recent of3 resultswithin the time period is included. Alkaline Phosphatase 114 46 - 116 U/L [facility] 07/03/2025 3:00 AM EST 07/04/2025 12:05 PM EST us Driss Alatorre MD LAB BLOOD ORDERABLES Final Resul t Performing Organization Address [facility] Co de Phone Number [facility] [address] [place] [address] * Magnesium (07/03/2025 3:00 AM EST) Only the most recent of3 resultswithin the time period is included. Magnesium 2.0 1.9 - 2.7 mg/dL [facility] 07/03/2025 3:00 AM EST 07/04/2025 12:05 PM EST us Driss Alatorre MD LAB BLOOD ORDERABLES Final Resul t Performing Organization Address [facility] de Phone Number [facility] [address] [place] [address] * Lactate dehydrogenase (07/03/2025 3:00 AM EST) Only the most recent of3 resultswithin the time period is included. LDH 153 120 - 246 U/L [facility] 07/03/2025 3:00 AM EST 07/04/2025 12:05 PM EST us Driss Alatorre MD LAB BLOOD ORDERABLES Final Resul t Performing Organization Address [facility] de Phone Number [facility] [address] [place] [address] * (ABNORMAL) Glucose, random (07/03/2025 3:00 AM EST) Only the most recent of3 resultswithin the time period is included. Glucose 188(H) 70 - 99 mg/dL [facility] Comment: ADA guidelines outline the following fasting glucose ranges: Normal: <100 Prediabetes: 100-125 Diabetes: >125 07/03/2025 3:00 AM EST 07/04/2025 12:05 PM EST us Driss Alatorre MD LAB BLOOD ORDERABLES Final Resul t Performing Organization Address [facility] de Phone Number [facility] [address] [place] [address] * (ABNORMAL) Ferritin (07/03/2025 3:00 AM EST) Only the most recent of3 resultswithin the time period is included. Ferritin 1,640(H) 10 - 291 ng/mL [facility] 07/03/2025 3:00 AM EST 07/04/2025 12:05 PM EST us Driss Alatorre MD LAB BLOOD ORDERABLES Final Resul t Performing Organization Address [facility] de Phone Number [facility] [address] [place] [address] * (ABNORMAL) Creatinine, serum (07/03/2025 3:00 AM EST) Only the most recent of3 resultswithin the time period is included. Creatinine 7.51(H) 0.55 - 1.02 mg/dL [facility] 07/03/2025 3:00 AM EST 07/04/2025 12:05 PM EST us Driss Alatorre MD LAB BLOOD ORDERABLES Final Resul t Performing Organization Address [facility] de Phone Number [facility] [address] [place] [address] * (ABNORMAL) Bilirubin, total (07/03/2025 3:00 AM EST) Only the most recent of3 resultswithin the time period is included. Total Bilirubin <0.2(L) 0.3 - 1.2 mg/dL [facility] 07/03/2025 3:00 AM EST 07/04/2025 12:05 PM EST us Driss Alatorre MD LAB BLOOD ORDERABLES Final Resul t Performing Organization Address [facility] de Phone Number [facility] [address] [place] [address] * (ABNORMAL) Electrolyte panel (07/03/2025 3:00 AM EST) Only the most recent of3 resultswithin the time period is included. Sodium 140 136 - 145 mEq/L [facility] Potassium 3.8 3.4 - 5.0 mEq/L [facility] Chloride 97(L) 98 - 107 mEq/L [facility] Bicarbonate (CO2) 28 21 - 31 mEq/L [facility] Anion Gap 15(H) 3 - 14 mEq/L [facility] 07/03/2025 3:00 AM EST 07/04/2025 12:05 PM EST us Driss Alatorre MD LAB BLOOD ORDERABLES Final Resul t Performing Organization Address [facility] de Phone Number [facility] [address] [place] [address] * (ABNORMAL) Hemoglobin (06/23/2025 3:00 AM EST) Only the most recent of5 resultswithin the time period is included. Hgb 10.2(L) 11.2 - 15.7 g/dL [facility] Hemoglobin x 3 30.6(L) 33.6 - 47.1 g/dL [facility] 06/23/2025 3:00 AM EST 06/24/2025 1:58 PM EST us Driss Alatorre MD LAB BLOOD ORDERABLES Final Resul t Performing Organization Address [facility] de Phone Number [facility] [address] [place] [address] * (ABNORMAL) Hemoglobin A1c (05/01/2025 3:00 AM EDT) Hemoglobin A1C 5.9(H) <5.7 % [facility] Comment: Methodology: Enzymatic Normal: <5.7% Prediabetes: 5.7-6.4% Diabetes: >6.4% Diabetic Glucose Control Evaluation: Therapeutic action suggested at >8.0% ADA recommends a glycemic goal of <7.0% 05/01/2025 3:00 AM EDT 05/02/2025 12:12 PM EDT us Driss Alatorre MD LAB BLOOD ORDERABLES Final Resul t Performing Organization Address [facility] de Phone Number [facility] [address] [place] [address] * (ABNORMAL) Lipid panel (05/01/2025 3:00 AM EDT) Cholesterol 156 mg/dL [facility] Comment: Optimal: <200 Borderline: 200-239 High Risk: >239 Triglycerides 159(H) mg/dL [facility] Comment: Optimal: <150 Borderline: 150-200 High Risk: >200 HDL 53(L) mg/dL [facility] Comment: Optimal: >59 Borderline: 40-59 High Risk: <40 LDL-Calc 71 mg/dL [facility] Comment: Optimal: <100 Borderline: 100-159 High Risk: >159 VLDL Cholesterol Adrián 32(H) mg/dL [facility] Comment: Optimal: <30 Borderline: 30-40 High Risk: >40 Chol/HDL Ratio 2.9 [facility] Comment: Optimal: <3.3 High Risk: >6.2 05/01/2025 3:00 AM EDT 05/02/2025 12:25 PM EDT us Driss Alatorre MD LAB BLOOD ORDERABLES Final Resul t [facility] [address] [place] [address] from Last [address] [place] [address] ([id number]) [facility] ([id number]) MATILDE PALACIOS [phone] Care Teams Esthetician And Manager Medical Spa Relationship Specialty Start Date End Date Patricia Ingram MD [address] [place] [id number] PCP - General 08/10/20
[2025-07-18 20:33] LABS: MANUAL DIFF FLAG NO
[2025-07-18 20:34] LABS: Hematocrit 22.5 % (37.0-47.0); Hemoglobin 7.2 g/dl (12.0-16.0); Imm Gran Abs Auto 0.01 X10*3/uL (0.00-0.03); Imm Gran Pct Auto 0.3 % (0.0-0.4); Lymphocytes Absolute Auto 1.0 X10*3/uL (1.2-4.9); Mean Corpuscular HGB Conc 32.0 g/dl (31.0-35.0); Mean Corpuscular Hemoglobin 29.8 pg (27.0-33.0); Mean Corpuscular Volume 93.0 fL (80.0-98.0); NRBC Abs Auto 0.000 X10*3/uL (0.0-0.012); NRBC Pct Auto 0.0 /100WBC (0.0-0.2); Platelet Count 184 X10*3/uL (160-400); Red Blood Count 2.42 X10*6/uL (4.20-5.50); White Blood Count 3.8 X10*3/uL (4.8-10.8)
[2025-07-18 20:41] LABS: INTERNATIONAL NORM RATIO 1.1 (0.9-1.1); Prothrombin Time 13.6 SEC (11.2-13.5)
[2025-07-18 20:56] LABS: Alanine Aminotransferase < 6 U/L (0-31); Albumin Level 4.0 g/dL (3.5-5.0); Alkaline Phosphatase 139 U/L (39-117); Anion Gap 19 (12-20); Aspartate Amino Transferase 16 U/L (5-31); Blood Urea Nitrogen 38 mg/dL (9-16); Calcium 10.0 mg/dL (8.4-10.2); Carbon Dioxide 30 mmol/L (22-29); Chloride 96 mmol/L (96-108); Creatinine Clr Calc Pharmacy 9.0; Estimated Glomerular Filt Rate 8; Magnesium 2.3 mg/dL (1.6-2.6); Potassium 4.1 mmol/L (3.3-5.1); Sodium 141 mmol/L (135-145); Total Protein 7.1 g/dL (6.5-8.0)
[2025-07-18 20:58] LABS: Troponin-I High Sensitivity 21.1 ng/L (<3.5-17.0)
[2025-07-18 21:19] LABS: OBS Int Ctl Valid YES; OBS1 NEGATIVE (NEGATIVE)
[2025-07-18 22:38] VITALS: BP 171/60; PULSE 63; RESP 16; O2SAT 100
[2025-07-18 22:53] VITALS: BP 166/62; PULSE 61; RESP 16; TEMP 36.4
[2025-07-18 23:12] VITALS: BP 189/76; PULSE 60; RESP 18; TEMP 36.7
--- NOTE | 2025-07-18 23:41 | PC.NURSE ---
assumed care of patient, patient receiving blood at this time, no complaints at this time
[2025-07-19 01:00] VITALS: BP 185/64; PULSE 65; RESP 21; TEMP 36.7; O2SAT 97
[2025-07-19 02:00] VITALS: BP 196/67; PULSE 64; RESP 22; TEMP 37
--- NOTE | 2025-07-19 02:52 | PC.NURSE ---
Dr. Weldon aware of elevated blood pressure, no additional orders and okay for discharge
[2025-07-19 03:14] VITALS: BP 196/67; PULSE 64; RESP 22; TEMP 37; O2SAT 98
== END 2025-07-19 03:15 | disposition home or self-care (01) ==
PROVIDERS: Physician Assistant; Emergency Provider Emergency Medicine Emergency Medical Services; PCP Family Medicine
DX: N18.6 End stage renal disease (principal); D63.1 Anemia in chronic kidney disease; E11.22 Type 2 diabetes mellitus with diabetic chronic kidney disease; I12.0 Hypertensive chronic kidney disease with stage 5 chronic kidney disease or end stage renal disease; K21.9 Gastro-esophageal reflux disease without esophagitis; I25.10 Atherosclerotic heart disease of native coronary artery without angina pectoris; G47.33 Obstructive sleep apnea (adult) (pediatric); J45.909 Unspecified asthma, uncomplicated; E83.52 Hypercalcemia; Z99.2 Dependence on renal dialysis; Z79.4 Long term (current) use of insulin
CPT/HCPCS: 36415; 36430; 80048; 80076; 82272; 83735; 84484; 85025; 85610; 86850; 86900; 86901; 86923; 93005; 99285; P9016

== ENCOUNTER → 2025-07-18 20:00 | Outpatient (BNV) | payer OTHER, SELFPAY | PROVIDERS: Emergency Provider Emergency Medicine Emergency Medical Services; PCP Family Medicine; Visit Provider Internal Medicine Cardiovascular Disease | DX: I45.10 Unspecified right bundle-branch block (principal) | CPT/HCPCS: 93010 ==